=== PATIENT | female | born 1965 | race Caucasian/White ===

== ENCOUNTER 2021-08-16 05:54 | Inpatient (IN) | payer OTHER, SELFPAY ==
[2021-08-16] VITALS (21 sets, daily range): BP systolic 85–157; BP diastolic 45–84; PULSE 50–124; RESP 16–36; TEMP 36.9–37.7; O2SAT 70–98; BMI 20.7; BMI 16.8
--- NOTE | ~2021-08-16 | XR_ITS ---
EXAMINATION: CR CHEST CLINICAL INFORMATION: Shortness of breath. COMPARISON: Several prior chest x-rays, most recent of which is dated 09/26/2019. TECHNIQUE: AP upright portable view of the chest was obtained. FINDINGS: Multiple EKG leads overlie the chest. The cardiomediastinal silhouette is within normal limits in size. Lungs bilaterally are hyperinflated, consistent with patient's history of obstructive lung disease. There are new superimposed patchy parenchymal opacities in the mid and lower lungs bilaterally with thickening of the airways, suspicious for a diffuse viral or atypical pneumonia. Indistinctness of the CP angles is seen, possibly due to trace bilateral pleural effusions. No pneumothorax is seen. Bony structures are unremarkable. XR/XR chest 1V IMPRESSION: Obstructive lung disease with superimposed findings suspicious for viral or atypical pneumonia.
--- NOTE | ~2021-08-16 | XR_ITS ---
EXAMINATION: XR CHEST CLINICAL INFORMATION: TLC placement. COMPARISON: 08/16/2021 chest radiograph at 6:48 AM. Chest CTA dated 06/06/2017. TECHNIQUE: Frontal view of the chest was obtained. FINDINGS: Support devices: Interval placement of right internal jugular central venous catheter with tip terminating in the superior vena cava. Distribution of pulmonary markings is again seen with lower lung field predominance without significant change. No pneumothorax. The heart and mediastinal structures are unremarkable. XR/XR chest 1V IMPRESSION: 1. Right TLC appears in good position. No pneumothorax. 2. Similar distribution and severity of pulmonary markings. Please refer to the report from the recent chest CTA for more detailed findings.
--- NOTE | ~2021-08-16 | CT_ITS ---
EXAMINATION: CT ANGIOGRAM OF THE CHEST WITH AND WITHOUT CONTRAST (CT PULMONARY ANGIOGRAM FOR PE) CLINICAL INFORMATION: Reason for Exam r/o acute pulmonary embolus COMPARISON: CTA of June 06, 2017 and chest x-rays of August 16, 2021 and September 26, 2019 TECHNIQUE: Prior to contrast administration, noncontrast localization images were obtained. Subsequently, multidetector volumetric imaging was performed from the thoracic inlet to below the diaphragms following the administration of 65 mL Omnipaque 350 intravenous contrast. No contrast reaction reported Sagittal, coronal, and MIP oblique sagittal reformatted images were obtained on the CT workstation, uploaded to PACS, and reviewed. This CT examination was performed using dose optimization techniques as appropriate, variously including the following: *Automated exposure control *Adjustment of mA and/or kV according to patient size (this includes techniques or standardized protocols for targeted exams where dose is matched to indication/reason for exam; i.e. extremities or head) *Use of iterative reconstruction technique Total exam dose-length product 210 mGy-cm FINDINGS: QUALITY OF STUDY/CONTRAST BOLUS: Satisfactory. PULMONARY ARTERIES: No central or segmental pulmonary emboli. THORACIC AORTA: No aneurysm or dissection. LUNG: Central airways are patent. There is significant change of centrilobular emphysema seen bilaterally. There is diffuse bronchial wall thickening present more prominent within the lower lobes bilaterally. No bronchiectasis is appreciated. There is interstitial and airspace disease seen at the lung bases bilaterally. Above findings may be related to pulmonary edema versus infectious or inflammatory interstitial lung disease. The bibasilar consolidation may be related to pneumonia. There were no significant changes of interstitial lung disease seen on previous CTA of June 06, 2017. There is a 10 x 6 mm subpleural density posterior aspect of the right upper lobe on image 128 of 530 and series #7. PLEURA: No pleural effusion or pneumothorax. MEDIASTINUM: There appears to be the aortopulmonic window, precarinal, and subcarinal lymphadenopathy present. Interstitial thickening versus nonenlarged lymph nodes in the hilar regions seen bilaterally. Normal heart size. Coronary artery calcific dictation present. No pericardial effusion. No evidence of septal bowing or right heart strain. Visualized thyroid gland unremarkable. CHEST WALL/AXILLA: No axillary or internal mammary lymphadenopathy. OSSEOUS STRUCTURES: No acute or suspicious osseous abnormality. UPPER ABDOMEN: Unremarkable. No reflux of contrast into the hepatic veins to suggest elevated right heart pressures. CT/CT angio chest PE protocol IMPRESSION: Significant changes of centrilobular emphysema. Interstitial lung disease bilaterally with airspace disease seen dependently within the lower lobes. Above findings may be related to interstitial and airspace edema or possible inflammatory or infectious process. Hilar lymphadenopathy. VTE: negative
--- NOTE | 2021-08-16 06:13 | ECG_ITS ---
Test Reason : SOB Blood Pressure : / mmHG Vent. Rate : 112 BPM Atrial Rate : 112 BPM P-R Int : 154 ms QRS Dur : 086 ms QT Int : 358 ms P-R-T Axes : 078 087 082 degrees QTc Int : 488 ms Artifact in tracing Sinus tachycardia Anteroseptal infarct (cited on or before 16-AUG-2021) Abnormal ECG When compared with ECG of 20-AUG-2019 17:58, Nonspecific T wave abnormality no longer evident in Inferior leads Referred By: Generic ED Physician Electronically Signed By:XIOMARA FAM
--- NOTE | 2021-08-16 06:49 | PC.NURSE ---
provider at bedside, removed NRB for pt to start nebulizer tx, pt desat to 78% on room air respiratory at bedside. starting pt on BIPAP
[2021-08-16 06:53] LABS: COVID-19 Test Positive (Negative)
--- NOTE | 2021-08-16 06:57 | ED_ITS ---
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 She arrived to [place] in high-flow oxygen tachypneic unable to maintain the O2 sat she was placed on BiPAP for work of breathing. MD elicited complaint: shortness of breath and cough Pertinent past history: COPD Onset (ago): day(s) (3) Timing: constant Severity: moderate Exacerbating factors: nothing Relieving factors: oxygen Known history of: COPD Associated symptoms: fever and cough Treatment prior to arrival: oxygen Related Data Home oxygen amount: 2 liters Home Medications Medication Instructions Recorded Confirmed cetirizine 10 mg tablet 10 mg PO DAILY 07/31/20 08/16/21 simvastatin 40 mg tablet 40 mg PO DAILY 07/31/20 06/10/21 Previous Rx's Medication Instructions Recorded fluticasone 232mcg-salmeterol 1 inh INHALATION BID 30 Days #1 ea 09/09/20 14mcg/actuation breath act,powder sensor (LiquidMo Digihaler) mirtazapine 30 mg tablet 30 mg PO BEDTIME 90 Days #90 tab 04/22/21 albuterol sulfate 90 mcg/actuation 2 puff PO Q6H PRN 30 Days #6.7 g 06/01/21 aerosol inhaler escitalopram oxalate 10 mg tablet 10 mg PO DAILY 90 Days #90 tab 06/29/21 (Lexapro) ipratropium 0.5 mg-albuterol 3 mg 1 ml INHALATION TID PRN 30 Days 07/28/21 (2.5 mg base)/3 mL nebulization #180 ml soln omeprazole 20 mg capsule,delayed 20 mg PO DAILY 90 Days #90 cap 07/28/21 release Allergies Allergy/AdvReac Type Severity Reaction Status Date / Time crab Allergy Unknown UNKNOWN Unverified 06/10/21 15:36 penicillin V Allergy Unknown hives Verified 06/10/21 15:36 Penicillins [PENICILLINS] Allergy Unknown hives Verified 06/10/21 15:36 SEASONAL ALLERGIES Allergy Mild RUNNY NOSE Uncoded 06/10/21 15:36 Review of Systems Review of Systems: Yes all other systems are reviewed and are negative Constitutional: Constitutional: Reports fever(s) Cardiovascular: Cardiovascular: Reports dyspnea Respiratory: Respiratory: Reports cough, Reports excessive phlegm production and Reports dyspnea Gastrointestinal: Gastrointestinal: Reports no additional gastrointestinal complaints [facility] Past Medical History Medical History (Updated 08/16/21 @ 14:27 by Kimberly Chaudhary MD) Anxiety, generalized Arthrosis Asthma, moderate Asymptomatic carotid artery stenosis with infarction Chronic GERD COPD mixed type Difficulty sleeping Environmental allergies Exacerbation of asthma Hypercapnic respiratory failure, chronic Lipid disorder Tobacco abuse Surgical History History of tonsillectomy and adenoidectomy Family History Family History Father Substance abuse Mother Brain cancer Maternal Grandfather History of heart attack Maternal Grandmother History of heart attack Paternal Grandfather No problems noted. Paternal Grandmother No problems noted. Brother No problems noted. Brother No problems noted. Son No problems noted. Daughter No problems noted. Other Mental health disorder Social History Social History Housing: Condominium Patient Tobacco Use Status: Former Tobacco user (2 years ago ) Years Smoked: 35 years Advance Directives: No Advance Directives Information Provided: Yes Current occupational status: disabled Physical Exam Vital Signs: Vital Signs: Last Vital Signs Temp 99.3 F 08/16/21 16:00 Pulse 80 08/16/21 16:00 Resp 25 H 08/16/21 16:00 BP 101/59 L 08/16/21 16:00 Pulse Ox 95 08/16/21 16:00 Oxygen Flow Rate 10 08/16/21 06:05 BMI result Body Mass Index 20.7 Const: General: cooperative, alert, in distress and anxious Nutritional Appearance: average body habitus Orientation/consciousness: oriented to person, oriented to place, oriented to time and patient oriented x3 HENMT: Other: Examination the head eyes ears nose and throat is within normal limit Face and sinus: Yes normal facial exam Mouth: Normal oral and palatal mucosa present Teeth and gingiva: dentition normal Throat: Yes posterior oropharynx normal Neck: Neck: Yes normal visual inspection and Yes full ROM Chest: Chest palpation & inspection: normal inspection of the chest Resp: Effort & Inspection: labored Auscultation: rhonchi Cardio: Jugular venous distension: no JVD Rate: regular rate GI: Inspection: Yes normal to inspection Palpation (GI): Soft to palpation, not firm and nontender Skin: General skin exam: no rashes or lesions noted and elasticity normal Neuro: General: oriented to person, oriented to place, oriented to time and patient oriented x3 Course Reevaluation(s) Reevaluation #1: patient was placed on BiPAP he is doing better on BiPAP unable to tolerate high-flow oxygen. I spoke with Dr. Chaudhary your request a CT angiography of the chest. IV Decadron administered, IV antibiotic administer for possible superinfection given and a elevated white count. Reevaluation #2: pt was seen by Dr Chaudhary in the ED better on bipap,she does have elevated WBC as well will cover with AB as well possible super infection,discussed IV fluids with Dr Chaudhary no indication for IV fluids per ICU attending She has normal lactate ,she is not hypotensive actually Hypertensive MDM - SOB/Dyspnea MDM Narrative Medical decision making narrative: this is a frail a 55 years old the female O2 dependent COPD presented in respiratory distress at could be positive abnormal chest x-ray. I will discuss the case with the ICU attending anticipate admission ICU level of care Lab Data Attestation: I reviewed the patient's lab results. Result diagrams: 08/16/21 07:02 08/16/21 07:02 Labs: Lab Results 08/16/21 08/16/21 08/16/21 Range/Units 06:33 07:02 07:02 WBC 21.6 H (4.8-10.8) X10*3/uL RBC 3.91 L (4.20-5.50) X10*6/uL Hgb 10.5 L (12.0-16.0) g/dl Hct 35.4 L (37.0-47.0) % MCV 90.5 (80.0-98.0) fL MCH 26.9 L (27.0-33.0) pg MCHC 29.7 L (31.0-35.0) g/dl RDW 15.1 (11.0-16.0) % Plt Count 503 H (160-400) X10*3/uL MPV 9.7 (9.4-12.3) fL Immature Gran % (Auto) 1.0 H (0.0-0.4) % Neut % (Auto) 89.6 H (45-73) % Lymph % (Auto) 3.8 L (20-40) % Bailey % (Auto) 5.3 (2-11) % Eos % (Auto) 0.1 (0-4) % Baso % (Auto) 0.2 (0-2) % Lymph # (Auto) 0.8 L (1.2-4.9) X10*3/uL Bailey # (Auto) 1.1 (0.1-1.2) X10*3/uL Eos # (Auto) 0.0 (0.0-0.4) X10*3/uL Baso # (Auto) 0.0 (0.0-0.2) X10*3/uL Abs Immat Gran (auto) 0.22 H (0.00-0.03) X10*3/uL Absolute Neuts (auto) 19.3 H (2.0-8.3) x10*3/uL Absolute Nucleated RBC 0.000 (0.0-0.012) X10*3/uL Nucleated RBC % (auto) 0.0 (0.0-0.2) /100WBC Sodium 137 (135-145) mmol/L Potassium 4.3 (3.3-5.1) mmol/L Chloride 89 L (96-108) mmol/L Carbon Dioxide 34 H (22-29) mmol/L Anion Gap 18 (12-20) BUN 30 H (9-16) mg/dL Creatinine 0.82 (0.5-1.4) mg/dL Estim Creat Clear Calc 57.8 Estimated GFR > 60 Random Glucose 118 H (60-115) mg/dL Lactic Acid (0.5-2.0) mmol/L Calcium 9.6 (8.4-10.2) mg/dL Troponin I High Sens (<3.5-17.0) ng/L B-Natriuretic Peptide (<100) pg/mL COVID-19 ([facility]) Positive A (Negative) COVID-19 Clin Com See Note 08/16/21 08/16/21 Range/Units 07:02 07:02 WBC (4.8-10.8) X10*3/uL RBC (4.20-5.50) X10*6/uL Hgb (12.0-16.0) g/dl Hct (37.0-47.0) % MCV (80.0-98.0) fL MCH (27.0-33.0) pg MCHC (31.0-35.0) g/dl RDW (11.0-16.0) % Plt Count (160-400) X10*3/uL MPV (9.4-12.3) fL Immature Gran % (Auto) (0.0-0.4) % Neut % (Auto) (45-73) % Lymph % (Auto) (20-40) % Bailey % (Auto) (2-11) % Eos % (Auto) (0-4) % Baso % (Auto) (0-2) % Lymph # (Auto) (1.2-4.9) X10*3/uL Bailey # (Auto) (0.1-1.2) X10*3/uL Eos # (Auto) (0.0-0.4) X10*3/uL Baso # (Auto) (0.0-0.2) X10*3/uL Abs Immat Gran (auto) (0.00-0.03) X10*3/uL Absolute Neuts (auto) (2.0-8.3) x10*3/uL Absolute Nucleated RBC (0.0-0.012) X10*3/uL Nucleated RBC % (auto) (0.0-0.2) /100WBC Sodium (135-145) mmol/L Potassium (3.3-5.1) mmol/L Chloride (96-108) mmol/L Carbon Dioxide (22-29) mmol/L Anion Gap (12-20) BUN (9-16) mg/dL Creatinine (0.5-1.4) mg/dL Estim Creat Clear Calc Estimated GFR Random Glucose (60-115) mg/dL Lactic Acid 1.1 (0.5-2.0) mmol/L Calcium (8.4-10.2) mg/dL Troponin I High Sens 15.3 (<3.5-17.0) ng/L B-Natriuretic Peptide 234 H (<100) pg/mL COVID-19 ([facility]BERTO) (Negative) COVID-19 Clin Com Critical Care Time Critical Care Time Critical Care Time: Yes Total Critical Care Time: 60 Attestation: Placing the patient on BiPAP discussion with the patient, ICU attending, nurses Discharge Plan Discharge Clinical Impression: Respiratory failure, COVID-19 virus infection Patient Disposition: Admitted As Inpatient Interventions: Admission Worksheet (ED) Last Done: 08/16/21 11:58 Discharge Date/Time: 08/16/21 11:58
[2021-08-16 07:10] LABS: MANUAL DIFF FLAG NO
[2021-08-16 07:13] LABS: Basophils Percent Auto 0.2 % (0-2); Eosinophils Percent Auto 0.1 % (0-4); Hematocrit 35.4 % (37.0-47.0); Hemoglobin 10.5 g/dl (12.0-16.0); Imm Gran Abs Auto 0.22 X10*3/uL (0.00-0.03); Lymphocytes Absolute Auto 0.8 X10*3/uL (1.2-4.9); Lymphocytes Percent Auto 3.8 % (20-40); Mean Corpuscular HGB Conc 29.7 g/dl (31.0-35.0); Mean Corpuscular Hemoglobin 26.9 pg (27.0-33.0); Mean Corpuscular Volume 90.5 fL (80.0-98.0); Mean Platelet Volume 9.7 fL (9.4-12.3); Monocytes Absolute Auto 1.1 X10*3/uL (0.1-1.2); Monocytes Percent Auto 5.3 % (2-11); Neutrophils Absolute Auto 19.3 x10*3/uL (2.0-8.3); Neutrophils Percent Auto 89.6 % (45-73); Platelet Count 503 X10*3/uL (160-400); Red Blood Count 3.91 X10*6/uL (4.20-5.50); Red Cell Distribution Width 15.1 % (11.0-16.0); White Blood Count 21.6 X10*3/uL (4.8-10.8)
--- NOTE | 2021-08-16 07:21 | PC.NURSE ---
plan is to put pt on high flow- needs to be in a room with a closed door. iv abx started.
[2021-08-16 07:26] LABS: Lactic Acid 1.1 mmol/L (0.5-2.0)
[2021-08-16 07:31] LABS: Anion Gap 18 (12-20); Blood Urea Nitrogen 30 mg/dL (9-16); Calcium 9.6 mg/dL (8.4-10.2); Carbon Dioxide 34 mmol/L (22-29); Chloride 89 mmol/L (96-108); Creatinine Clr Calc Pharmacy 57.8; Estimated Glomerular Filt Rate > 60; Glucose Random 118 mg/dL (60-115); Potassium 4.3 mmol/L (3.3-5.1); Sodium 137 mmol/L (135-145)
[2021-08-16] MEDS: dexAMETHasone sod phosphate 4 MG/ML VIAL 8 MG IVPUSH (07:44)
[2021-08-16 07:46] LABS: B Type Natriuretic Peptide 234 pg/mL (<100); Troponin-I High Sensitivity 15.3 ng/L (<3.5-17.0)
--- NOTE | 2021-08-16 08:36 | PC.NURSE ---
pt to and from ct- vss
[2021-08-16] MEDS: iohexoL 350 MG/ML 100 ML INFUS..BTL IV (08:48)
[2021-08-16] MEDS: Azithromycin 500 MG in 0.9 % Sodium Chloride 250 ML 125 MG IV (09:40)
--- NOTE | 2021-08-16 10:11 | PM.CCHP ---
History of Present Illness Date of Service: 08/16/21 Attending physician on admission: Kimberly Chaudhary Chief Complaint: SOB 55-year-old very asthenic who stop smoking 2 years ago has very extensive oxygen-dependent emphysema presents today with increasing shortness of breath and she is COVID-19 positive but with a an initial CT scan that shows no evidence of thrombotic disease extensive I believe interstitial fibrosis as well as evidence of emphysema but extensive bilateral lower lobe interstitial infiltration [place] [address] and a left shift but no fever not complaining of cough or productive cough and she was noted to be in acute on chronic hypercarbic as well as hypoxic respiratory failure and oxygen saturations could not climb above 80% on any therapy other than BiPAP but has a pCO2 in the mid 70s with compensated pH of 7.38 and is sinus tachycardia with Q-waves in V1 to V3 and diminished bilateral carotid upstrokes and bedside echo shows extensive area of anterior 0 apical akinesis and an old report from the cardiology office indicates hypokinesis of the anterior 0 apical wall but the 1st troponin was-5 hours later high sensitivity troponin 134 and she has got a 4 fold increase in BNP compared to her baseline and mixed venous oxygen saturation is only 48% for calculated cardiac output at best a 4 liters/minute but calculated the SVR that is over 2000 so clearly in 0 that this is indicative of heart failure and the urine toxicology is positive for cocaine so it is not impossible that there are components of the lung that could be cardiogenic as well as noncardiogenic pulmonary edema but the in relation to the COVID may have a markedly elevated CRP and LDH and D-dimer and so that could be some implication that that there is in COVID activity but the CT scan not COVID parenchymal disease Review of Systems Review of Systems: No fever no chills no productive cough and no background history of hypercoagulability not in herself or family Yes all other systems are reviewed and are negative [facility] Past Medical History Medical History (Updated 08/16/21 @ 14:27 by Kimberly Chaudhary MD) Anxiety, generalized Arthrosis Asthma, moderate Asymptomatic carotid artery stenosis with infarction Chronic GERD COPD mixed type Difficulty sleeping Environmental allergies Exacerbation of asthma Hypercapnic respiratory failure, chronic Lipid disorder Tobacco abuse Family History Family History Father Substance abuse Mother Brain cancer Maternal Grandfather History of heart attack Maternal Grandmother History of heart attack Paternal Grandfather No problems noted. Paternal Grandmother No problems noted. Brother No problems noted. Brother No problems noted. Son No problems noted. Daughter No problems noted. Other Mental health disorder Surgical History Surgical History History of tonsillectomy and adenoidectomy Social History [facility] Patient Tobacco Use Status: Former Tobacco user (2 years ago ) Years Smoked: 35 years Advance Directives: No Advance Directives Information Provided: Yes Current occupational status: disabled Meds Allergies Allergy/AdvReac Type Severity Reaction Status Date / Time crab Allergy Unknown UNKNOWN Unverified 06/10/21 15:36 penicillin V Allergy Unknown hives Verified 06/10/21 15:36 Penicillins [PENICILLINS] Allergy Unknown hives Verified 06/10/21 15:36 SEASONAL ALLERGIES Allergy Mild RUNNY NOSE Uncoded 06/10/21 15:36 Active Medications: Current Medications Albuterol/Ipratropium (Albuterol/Iprat 2.5/0.5mg 3 Ml Ampul.Neb) 3 ml INHALE RQ4H [facility] Dexamethasone Sodium Phosphate (Dexamethasone Sod Phosphate 4 Mg/Ml Vial) 6 mg IVPUSH DAILY [facility] Enoxaparin Sodium (Enoxaparin Sodium 40 Mg/0.4 Ml Syringe) 40 mg SUBCUT Q12H [facility] Azithromycin 500 mg/ Sodium (Chloride) 250 mls @ 125 mls/hr IV ONCE ONE Stop: 08/16/21 11:19 Last Admin: 08/16/21 09:40 Dose: 125 mls/hr Documented by: Meropenem 1 gm/ Sodium (Chloride) 100 mls @ 100 mls/hr IV Q8H [facility] Azithromycin 500 mg/ Sodium (Chloride) 250 mls @ 125 mls/hr IV DAILY [facility] Dextrose/Lactated Ringer's (D5lr) 1,000 mls @ 100 mls/hr IVCONT .Q10H [facility] Home Medications Medication Instructions Recorded Confirmed Last Taken Type cetirizine 10 mg tablet 10 mg PO DAILY 07/31/20 08/16/21 Unknown History simvastatin 40 mg tablet 40 mg PO DAILY 07/31/20 06/10/21 Unknown History Physical Exam Vital Signs: Vital Signs: Last Vital Signs Temp 98.4 F 08/16/21 06:05 Pulse 118 H 08/16/21 09:40 Resp 30 H 08/16/21 09:40 BP 113/59 L 08/16/21 09:40 Pulse Ox 96 08/16/21 09:40 Oxygen Flow Rate 10 08/16/21 06:05 BMI result Body Mass Index 20.7 She is awake and able to answer questions No neck vein distension but reduced bilateral carotid upstrokes and bedside exam of the heart by echo as above Lungs without diaphragmatic effort and a nor accessory muscle use but on BiPAP at this point and she is somewhat tachypneic and tachycardic Abdomen benign no organomegaly Results Labs CBC and Chem 7: 08/16/21 07:02 08/16/21 07:02 Labs: Laboratory Results - last 24 hr 08/16/21 08/16/21 08/16/21 06:33 07:02 07:02 MCV 90.5 MCH 26.9 L MCHC 29.7 L RDW 15.1 Plt Count 503 H MPV 9.7 Immature Gran % (Auto) 1.0 H Neut % (Auto) 89.6 H Lymph % (Auto) 3.8 L [place] % (Auto) 5.3 Eos % (Auto) 0.1 Baso % (Auto) 0.2 Lymph # (Auto) 0.8 L [place] # (Auto) 1.1 Eos # (Auto) 0.0 Baso # (Auto) 0.0 Abs Immat Gran (auto) 0.22 H Absolute Neuts (auto) 19.3 H Absolute Nucleated RBC 0.000 Nucleated RBC % (auto) 0.0 Anion Gap 18 Estim Creat Clear Calc 57.8 Estimated GFR > 60 Random Glucose 118 H Lactic Acid Calcium 9.6 Troponin I High Sens B-Natriuretic Peptide COVID-19 ([facility]) Positive A COVID-19 Clin Com See Note 08/16/21 08/16/21 07:02 07:02 MCV MCH MCHC RDW Plt Count MPV Immature Gran % (Auto) Neut % (Auto) Lymph % (Auto) [place] % (Auto) Eos % (Auto) Baso % (Auto) Lymph # (Auto) [place] # (Auto) Eos # (Auto) Baso # (Auto) Abs Immat Gran (auto) Absolute Neuts (auto) Absolute Nucleated RBC Nucleated RBC % (auto) Anion Gap Estim Creat Clear Calc Estimated GFR Random Glucose Lactic Acid 1.1 Calcium Troponin I High Sens 15.3 B-Natriuretic Peptide 234 H COVID-19 ([facility] AL[facility]ERT[facility]) COVID-19 Clin Com Imaging Radiologist's Impressions: Impressions Chest X-Ray 08/16/21 06:51 IMPRESSION: Obstructive lung disease with superimposed findings suspicious for viral or atypical pneumonia. Chest CTA 08/16/21 08:48 IMPRESSION: Significant changes of centrilobular emphysema. Interstitial lung disease bilaterally with airspace disease seen dependently within the lower lobes. Above findings may be related to interstitial and airspace edema or possible inflammatory or infectious process. Hilar lymphadenopathy. VTE: negative Assessment and Plan (1) Hypercapnic respiratory failure: Status: Acute (2) Hypercapnic respiratory failure, chronic: Status: Acute (3) Asthma, moderate: Status: Acute (4) Lipid disorder: Status: Acute (5) Anxiety, generalized: Status: Acute (6) Chronic GERD: Status: Acute (7) COPD mixed type: Status: Acute (8) Environmental allergies: Status: Acute (9) Tobacco abuse: Status: Acute (10) Oxygen dependent: Status: Acute (11) COVID-19 virus infection: Status: Acute (12) Respiratory failure: Status: Acute (13) Apical myocardial infarction: Status: Acute (14) Acute CHF (congestive heart failure): Status: Acute (15) Cocaine abuse: Status: Acute So we have a complicated picture of somebody who is COVID-19 positive in acute systolic/diastolic CHF from what appears to be an anterior 0 apical infarct but with prior description of of hypokinesis in that territory this might actually be an additional event superimposed on a previous 1 because we do have a rising troponin and arising BNP and she seems to be improving on BiPAP which we will maintain but there still are questions that this could be ischemic and cocaine is simply and exacerbate aunt and we gave her aspirin and full-dose Lovenox and calculated cardiac output with a markedly elevated peripheral vascular resistance dictates that I will start combined alpha and beta blockade for the vaso dilatory benefit and possibly and an Steve inhibitor such as IV Vasotec
--- NOTE | 2021-08-16 10:41 | PHA.MEDREC ---
Pharmacy Consult ? Medication Reconciliation Pharmacy has completed the medication reconciliation. Patient report using simvastatin and Breo inhaler however there is no claim history. [facility] is not open on the weekends. Will have pharmacist F/U tomorrow with pharmacy about fill history. Myrna Caldera, PharmD
[2021-08-16 10:58] LABS: VBG Base Excess 16.6 mmol/L; VBG HCO3 45 mmol/L (22-26); VBG pCO2 77 mmHg; VBG pH 7.37 (7.32-7.43); VBG pO2 49 mmHg
[2021-08-16 11:02] LABS: Venous Blood Gas Refer to POC result
[2021-08-16 11:05] LABS: D Dimer High Sensitivity 1174 NG/ML
[2021-08-16 11:21] LABS: C Reactive Protein 22.46 mg/dL (< or = 0.50); Lactate Dehydrogenase 336 U/L (122-220); Magnesium 1.8 mg/dL (1.6-2.6); Phosphorus 2.6 mg/dL (2.7-4.5)
[2021-08-16 11:41] LABS: Ferritin 877 ng/mL (10-250)
[2021-08-16 11:53] LABS: Procalcitonin 0.66 ng/mL
[2021-08-16] MEDS: Albuterol/Iprat 2.5/0.5MG 3 ML AMPUL.NEB INHALE ×3 (12:04→19:47)
[2021-08-16] MEDS: Dextrose 5 % and Lactated Ring 1,000 ML 100 ML IVCONT (12:20)
[2021-08-16 12:45] LABS: VBG Base Excess 16.5 mmol/L; VBG HCO3 45 mmol/L (22-26); VBG pCO2 74 mmHg; VBG pH 7.38 (7.32-7.43); VBG pO2 34 mmHg
--- NOTE | 2021-08-16 13:07 | HE.PHANOTE ---
Due to the CRCL being 57.8, the Baricitinib was renally dose adjusted to 2mg daily. Lachelle Gold, PharmD [phone]
[2021-08-16 13:13] LABS: Troponin-I High Sensitivity 133.4 ng/L (<3.5-17.0)
[2021-08-16 13:23] LABS: Amphetamine Screen Urine Not Detected (Not Detect); Barbiturates, Urine Not Detected (Not Detect); Benzodiazepines Screen Urine Not Detected (Not Detect); Cannabinoid Screen Urine Not Detected (Not Detect); Cocaine Screen Urine POSITIVE (Not Detect); Fentanyl, urine Not Detected (Not Detect); Opiate Screen Urine Not Detected (Not Detect); Phencyclidine Screen Urine Not Detected (Not Detect)
[2021-08-16] MEDS: Enoxaparin Sodium 40 MG/0.4 ML SYRINGE SUBCUT (13:46)
[2021-08-16] MEDS: Aspirin 325 MG TABLET PO (13:47)
[2021-08-16] MEDS: 0.9 % Sodium Chloride Flush 3 ML SYRINGE IVFLUSH (14:20)
[2021-08-16] MEDS: Remdesivir 200 MG in 0.9 % Sodium Chloride 210 ML 105 MG IV (14:27)
[2021-08-16] MEDS: KCl 20 mEq in 0.45% Sod 20 MEQ/1,000 ML IV.SOLN 40 MEQ IVCONT (14:27)
[2021-08-16 16:39] LABS: VBG Base Excess 16.2 mmol/L; VBG HCO3 41 mmol/L (22-26); VBG pCO2 54 mmHg; VBG pH 7.49 (7.32-7.43); VBG pO2 129 mmHg
[2021-08-16 16:40] LABS: Venous Blood Gas Refer to POC result
[2021-08-16 17:05] LABS: Troponin-I High Sensitivity 142.7 ng/L (<3.5-17.0)
--- NOTE | 2021-08-16 18:27 | PC.NURSE ---
VSS, labetolol gtt titrated off per emar. tele sr pt oriented to self and palce, able to make needs known ls clear, on bipap with rate 10, 15,6, 50%- tolerating well. u/o 10-15ml/hr, aware, bath given, pt repo as requested
[2021-08-16 18:44] LABS: Venous Blood Gas Refer to POC result
[2021-08-16] MEDS: Lactated Ringers 1,000 ML 200 ML IV (23:34)
--- NOTE | 2021-08-16 23:58 | W.PM.CCHP ---
Procedures Date of Service Date of Service: 08/16/21 Central Line Placement Right IJ: Central Line Comments: venous access Consent for Procedure: Emergent-no informed consent obtained Time out performed: Yes Sterile Technique Used: Yes Patient placed on monitor/pulse ox: Yes MD prep: mask, gown and gloves Central line prep: Chlorhexidine scrub and sterile drapes applied Local anesthesia used: lidocaine 2% Amount of anesthesia used (ml): 4 Ultrasound used for placement: Yes Central line lumen inserted: triple Post procedure: sutured in place, good blood return, all ports aspirated, flushed, capped and sterile dressing applied Post procedure x-ray: tip of catheter in good position and no pneumothorax seen Patient tolerated procedure: well and no complications Complications: none
[2021-08-17] VITALS (33 sets, daily range): BP systolic 97–164; BP diastolic 40–99; PULSE 73–122; RESP 18–33; TEMP 36.9–37.3; O2SAT 3–96; BMI 18.2
[2021-08-17] MEDS: 0.9 % Sodium Chloride Flush 3 ML SYRINGE IVFLUSH ×4 (00:06→23:55)
[2021-08-17] MEDS: Enoxaparin Sodium 40 MG/0.4 ML SYRINGE SUBCUT (00:11)
[2021-08-17] MEDS: Albuterol/Iprat 2.5/0.5MG 3 ML AMPUL.NEB INHALE ×4 (00:20→18:27)
--- NOTE | 2021-08-17 04:03 | PC.NURSE ---
CARE ASSUMED 23;15...MAINTAINED BIPAP 15/8 AND FIO2 50%..RR 26-28...Ve 10-11 L/M...SAO2 89-94%...OCASSIONAL HARSH COUGH..AWAKE..ALERT..ORIENTED...VAGUE RESPONSES AT TIMES..PER ICU PA SAO2 GOAL 88% OR GREATER...URINE OUTPUT REMAINS LOW OVERNIGHT...LR 200 CC/HR X1 BAG INFUSED PER PA...CVP 0-1 AT HS..CURRENTLY CVP 2-3...NSR..NO ECTOPY...LABETOLOL DRIP REMAINS OFF OVERNIGHT
[2021-08-17 05:29] LABS: VBG HCO3 43 mmol/L (22-26); VBG pCO2 53 mmHg; VBG pH 7.51 (7.32-7.43); VBG pO2 44 mmHg
[2021-08-17 05:46] LABS: INTERNATIONAL NORM RATIO 1.3 (0.9-1.1); Prothrombin Time 14.9 SEC (9.9-13.0)
[2021-08-17 05:49] LABS: Partial Thromboplastin Time 42.6 SEC (24.1-38.0)
[2021-08-17 05:57] LABS: B Type Natriuretic Peptide 267 pg/mL (<100)
[2021-08-17 06:00] LABS: Anion Gap 14 (12-20); Blood Urea Nitrogen 26 mg/dL (9-16); C Reactive Protein 11.65 mg/dL (< or = 0.50); Calcium 8.3 mg/dL (8.4-10.2); Carbon Dioxide 33 mmol/L (22-29); Chloride 97 mmol/L (96-108); Creatinine Clr Calc Pharmacy 65.8; Estimated Glomerular Filt Rate > 60; Glucose Random 84 mg/dL (60-115); Magnesium 1.6 mg/dL (1.6-2.6); Phosphorus 1.7 mg/dL (2.7-4.5); Potassium 4.3 mmol/L (3.3-5.1); Sodium 140 mmol/L (135-145)
[2021-08-17 06:09] LABS: Lactate Dehydrogenase 264 U/L (122-220)
[2021-08-17 06:24] LABS: Venous Blood Gas Refer to POC result
[2021-08-17 06:38] LABS: Basophils Percent Auto 0.1 % (0-2); Eosinophils Percent Auto 0.1 % (0-4); Hematocrit 23.8 % (37.0-47.0); Hemoglobin 7.1 g/dl (12.0-16.0); Imm Gran Abs Auto 0.22 X10*3/uL (0.00-0.03); Imm Gran Pct Auto 1.9 % (0.0-0.4); Lymphocytes Absolute Auto 2.4 X10*3/uL (1.2-4.9); MANUAL DIFF FLAG SCAN; Mean Corpuscular HGB Conc 29.8 g/dl (31.0-35.0); Mean Corpuscular Hemoglobin 26.5 pg (27.0-33.0); Mean Corpuscular Volume 88.8 fL (80.0-98.0); Mean Platelet Volume 9.7 fL (9.4-12.3); Monocytes Absolute Auto 0.9 X10*3/uL (0.1-1.2); Monocytes Percent Auto 7.8 % (2-11); Neutrophils Absolute Auto 7.9 x10*3/uL (2.0-8.3); Neutrophils Percent Auto 69.1 % (45-73); Platelet Count 408 X10*3/uL (160-400); Red Blood Count 2.68 X10*6/uL (4.20-5.50); Red Cell Distribution Width 15.2 % (11.0-16.0); SCAN SMEAR FLAG 1; White Blood Count 11.4 X10*3/uL (4.8-10.8)
[2021-08-17 06:45] LABS: SLIDE REVIEW VERIFIED
[2021-08-17 07:00] LABS: Ferritin 1633 ng/mL (10-250)
[2021-08-17] MEDS: Furosemide 20 MG/2 ML VIAL IVPUSH (08:42)
[2021-08-17] MEDS: dexAMETHasone sod phosphate 4 MG/ML VIAL 6 MG IVPUSH (08:42)
[2021-08-17] MEDS: Potassium Phosphate 30 MMOL in 0.9 % Sodium Chloride 500 ML 85 MMOL IV (08:44)
--- NOTE | 2021-08-17 10:30 | PHA.MEDREC ---
Pharmacy Consult ? Medication Reconciliation Pharmacy has completed the medication reconciliation. Called center pharmacy. They stated that she hasnt picked up her simvastatin or fluticasone 232/salmeterol 14mcg in over a year
[2021-08-17] MEDS: Heparin Sodium,Porcine 5,000 UNIT/ML VIAL 5000 UNIT SUBCUT ×2 (10:44→17:41)
--- NOTE | 2021-08-17 12:17 | P.PNCC_ITS ---
Subjective Subjective Date of Service: 08/17/21 Interval History: 55-year-old lady with underlying history of supplemental oxygen dependent COPD, CVA with residual right-sided hemiparesis, generalized anxiety admitted on 08/16/2021 with worsening dyspnea. Patient was noted to be COVID and cocaine positive, requiring BiPAP support and was admitted to the intensive care unit. Patient started on diuretic, systemic glucocorticoids, remdesivir, and baricitinib. On bedside echocardiogram she was noted to have takotsubo-like physiology. No events overnight. Titrated to high-flow nasal cannula. Critical Care Time (minutes): 60 Physical Exam Vital Signs: Vital Signs: Last Vital Signs Temp 99.0 F 08/17/21 12:00 Pulse 92 08/17/21 12:00 Resp 21 H 08/17/21 12:00 BP 151/65 H 08/17/21 12:00 Pulse Ox 92 08/17/21 12:00 Oxygen Flow Rate 50 08/16/21 20:00 BMI result Body Mass Index 18.2 Const: General: no acute distress, alert, awake and other ( Anxious) Eyes: Sclerae: sclerae normal EOM: EOMs intact bilaterally Neck: Neck: Yes no lymphadenopathy, Yes trachea midline and Yes supple Resp: Effort & Inspection: normal respiratory effort and no respiratory distress Auscultation: crackles ( diffuse bilateral) Cardio: Rate: tachycardic Rhythm: regular rhythm Heart sounds: no gallops, no murmurs and no rubs GI: Palpation (GI): Soft to palpation and Other GI palpation findings present ( Nontender) Auscultation: normal bowel sounds Extrem: General: No clubbing, No cyanosis and Yes pedal edema ( 1+ bilateral) Objective Data Labs CBC & Chem 7: 08/17/21 06:27 08/17/21 05:20 Labs: Laboratory Results - last 24 hr 08/16/21 08/16/21 08/16/21 12:36 12:38 12:39 WBC RBC Hgb Hct MCV MCH MCHC RDW Plt Count MPV Immature Gran % (Auto) Neut % (Auto) Lymph % (Auto) [place] % (Auto) Eos % (Auto) Baso % (Auto) Lymph # (Auto) [place] # (Auto) Eos # (Auto) Baso # (Auto) Abs Immat Gran (auto) Absolute Neuts (auto) Absolute Nucleated RBC Nucleated RBC % (auto) Smear Tech's Comments PT INR APTT VBG pH 7.38 VBG pCO2 74 VBG pO2 34 VBG HCO3 45 H VBG O2 Saturation 48.0 VBG Base Excess 16.5 Sodium Potassium Chloride Carbon Dioxide Anion Gap BUN Creatinine Estim Creat Clear Calc Estimated GFR Random Glucose Calcium Phosphorus Magnesium Ferritin Lactate Dehydrogenase Troponin I High Sens 133.4 H* D C-Reactive Protein B-Natriuretic Peptide Urine Opiates Screen Not Detected Urine Fentanyl Screen Not Detected Ur Barbiturates Screen Not Detected Ur Phencyclidine Scrn Not Detected Ur Amphetamines Screen Not Detected U Benzodiazepines Scrn Not Detected Urine Cocaine Screen POSITIVE H U Marijuana (THC) Screen Not Detected 08/16/21 08/16/21 08/17/21 16:21 16:32 05:20 WBC Cancelled RBC Cancelled Hgb Cancelled Hct Cancelled MCV Cancelled MCH Cancelled MCHC Cancelled RDW Cancelled Plt Count Cancelled MPV Cancelled Immature Gran % (Auto) Cancelled Neut % (Auto) Cancelled Lymph % (Auto) Cancelled [place] % (Auto) Cancelled Eos % (Auto) Cancelled Baso % (Auto) Cancelled Lymph # (Auto) Cancelled [place] # (Auto) Cancelled Eos # (Auto) Cancelled Baso # (Auto) Cancelled Abs Immat Gran (auto) Cancelled Absolute Neuts (auto) Cancelled Absolute Nucleated RBC Cancelled Nucleated RBC % (auto) Cancelled Smear Tech's Comments PT INR APTT VBG pH 7.49 H VBG pCO2 54 VBG pO2 129 VBG HCO3 41 H VBG O2 Saturation 99.0 VBG Base Excess 16.2 Sodium Potassium Chloride Carbon Dioxide Anion Gap BUN Creatinine Estim Creat Clear Calc Estimated GFR Random Glucose Calcium Phosphorus Magnesium Ferritin Lactate Dehydrogenase Troponin I High Sens 142.7 H* C-Reactive Protein B-Natriuretic Peptide Urine Opiates Screen Urine Fentanyl Screen Ur Barbiturates Screen Ur Phencyclidine Scrn Ur Amphetamines Screen U Benzodiazepines Scrn Urine Cocaine Screen U Marijuana (THC) Screen 08/17/21 08/17/21 08/17/21 05:20 05:20 05:20 WBC RBC Hgb Hct MCV MCH MCHC RDW Plt Count MPV Immature Gran % (Auto) Neut % (Auto) Lymph % (Auto) [place] % (Auto) Eos % (Auto) Baso % (Auto) Lymph # (Auto) [place] # (Auto) Eos # (Auto) Baso # (Auto) Abs Immat Gran (auto) Absolute Neuts (auto) Absolute Nucleated RBC Nucleated RBC % (auto) Smear Tech's Comments PT 14.9 H INR 1.3 H APTT 42.6 H VBG pH VBG pCO2 VBG pO2 VBG HCO3 VBG O2 Saturation VBG Base Excess Sodium 140 Potassium 4.3 Chloride 97 Carbon Dioxide 33 H Anion Gap 14 BUN 26 H Creatinine 0.66 Estim Creat Clear Calc 65.8 Estimated GFR > 60 Random Glucose 84 Calcium 8.3 L D Phosphorus 1.7 L Magnesium 1.6 Ferritin 1633 H Lactate Dehydrogenase 264 H Troponin I High Sens C-Reactive Protein 11.65 H B-Natriuretic Peptide 267 H Urine Opiates Screen Urine Fentanyl Screen Ur Barbiturates Screen Ur Phencyclidine Scrn Ur Amphetamines Screen U Benzodiazepines Scrn Urine Cocaine Screen U Marijuana (THC) Screen 08/17/21 08/17/21 05:23 06:27 WBC 11.4 H RBC 2.68 L D Hgb 7.1 L D Hct 23.8 L D MCV 88.8 MCH 26.5 L MCHC 29.8 L RDW 15.2 Plt Count 408 H MPV 9.7 Immature Gran % (Auto) 1.9 H Neut % (Auto) 69.1 Lymph % (Auto) 21.0 [place] % (Auto) 7.8 Eos % (Auto) 0.1 Baso % (Auto) 0.1 Lymph # (Auto) 2.4 [place] # (Auto) 0.9 Eos # (Auto) 0.0 Baso # (Auto) 0.0 Abs Immat Gran (auto) 0.22 H Absolute Neuts (auto) 7.9 Absolute Nucleated RBC 0.000 Nucleated RBC % (auto) 0.0 Smear Tech's Comments VERIFIED PT INR APTT VBG pH 7.51 H VBG pCO2 53 VBG pO2 44 VBG HCO3 43 H VBG O2 Saturation 73.0 VBG Base Excess 18.0 Sodium Potassium Chloride Carbon Dioxide Anion Gap BUN Creatinine Estim Creat Clear Calc Estimated GFR Random Glucose Calcium Phosphorus Magnesium Ferritin Lactate Dehydrogenase Troponin I High Sens C-Reactive Protein B-Natriuretic Peptide Urine Opiates Screen Urine Fentanyl Screen Ur Barbiturates Screen Ur Phencyclidine Scrn Ur Amphetamines Screen U Benzodiazepines Scrn Urine Cocaine Screen U Marijuana (THC) Screen Microbiology Microbiology Results: Microbiology 12/05/21 07:02 Blood - Venous Blood Culture - Preliminary No growth after 24 hours. 08/16/21 07:02 Blood - Venous Blood Culture - Preliminary No growth after 24 hours. Progress Note: A&P Assessment and plan (1) Cocaine abuse: Status: Acute (2) Acute CHF (congestive heart failure): Status: Acute (3) Respiratory failure: Status: Acute (4) Oxygen dependent: Status: Acute (5) COVID-19 virus infection: Status: Acute (6) Hemiparesis affecting right side as late effect of cerebrovascular accident: Status: Acute (7) Anxiety, generalized: Status: Acute Assessment and Plan: Assessment: 55-year-old lady with underlying history of COPD, CVA, anxiety, substance abuse admitted with dyspnea secondary to combination of acute systolic congestive heart failure, cocaine abuse, and COVID-19 infection, initially requiring BiPAP support. Plan: Neuro: No acute issues. Cardiac: Acute systolic congestive heart failure, likely secondary to takotsubo like physiolog noted on bedside echocardiogramy. 2D echocardiogram is pending. Improving with diuresis. Pulmonary: Acute on chronic hypoxic respiratory failure secondary to a combination of COVID-19 ARDS, acute systolic congestive heart failure, and cocaine abuse initially requiring BiPAP support. Now titrated off BiPAP. Continue to titrate off supplemental oxygen as tolerated. Renal: No acute issues. Endo: No acute issues. GI: No acute issues. ID: COVID-19, on remdesivir, systemic glucocorticoids, and baricitinib. Infectious Disease service care appreciated. Heme/Onc: No acute issues. Psych: No acute issues. Miscellaneous: No acute issues. Prophylaxis: Heparin Diet: regular Critical care time spent: 60 minutes Quality Stroke Does the patient have a stroke diagnosis?: No VTE Prior VTE?: No VTE Risk Level:: Medical - moderate - high VTE Device Contraindication: N/A - Device Ordered VTE Drug Contraindication: N/A - Med Ordered
[2021-08-17 12:35] LABS: Basophils Percent Auto 0.1 % (0-2); Hematocrit 26.4 % (37.0-47.0); Hemoglobin 8.2 g/dl (12.0-16.0); Imm Gran Abs Auto 0.41 X10*3/uL (0.00-0.03); Imm Gran Pct Auto 2.2 % (0.0-0.4); Lymphocytes Absolute Auto 1.6 X10*3/uL (1.2-4.9); Lymphocytes Percent Auto 8.9 % (20-40); MANUAL DIFF FLAG SCAN; Mean Corpuscular HGB Conc 31.1 g/dl (31.0-35.0); Mean Corpuscular Hemoglobin 27.3 pg (27.0-33.0); Mean Platelet Volume 9.6 fL (9.4-12.3); Monocytes Absolute Auto 0.6 X10*3/uL (0.1-1.2); Monocytes Percent Auto 3.3 % (2-11); Neutrophils Absolute Auto 15.7 x10*3/uL (2.0-8.3); Neutrophils Percent Auto 85.5 % (45-73); Platelet Count 486 X10*3/uL (160-400); Red Cell Distribution Width 15.1 % (11.0-16.0); SCAN SMEAR FLAG 1; White Blood Count 18.4 X10*3/uL (4.8-10.8)
[2021-08-17 13:18] LABS: Troponin-I High Sensitivity 34.2 ng/L (<3.5-17.0)
[2021-08-17] MEDS: Remdesivir 100 MG in 0.9 % Sodium Chloride 230 ML 115 MG IV (13:43)
[2021-08-17 13:49] LABS: Anion Gap 17 (12-20); Blood Urea Nitrogen 27 mg/dL (9-16); Calcium 8.2 mg/dL (8.4-10.2); Carbon Dioxide 33 mmol/L (22-29); Chloride 94 mmol/L (96-108); Creatinine Clr Calc Pharmacy 64.8; Estimated Glomerular Filt Rate > 60; Glucose Random 102 mg/dL (60-115); Potassium 4.9 mmol/L (3.3-5.1); Sodium 139 mmol/L (135-145)
[2021-08-17 14:25] LABS: OBS1 NEGATIVE (NEGATIVE)
[2021-08-17 14:26] LABS: OBS Int Ctl Valid YES
--- NOTE | 2021-08-17 15:55 | MHC.CM.PN ---
Addendum entered by Roxy Leonard 08/17/21 16:06: Requested copy of HCP from Pina: she is unsure of it's location. Will complete a new one with pt Original Note: Pt admitted to ICU with respiratory distress secondary to unvaccinated COVID +. Information obtained from pt, EMR and per phone conversation with pt's dtr/HCP, Pina. Pt resides alone but has 28+ hours per week of [employer] care provided by her dtr/HCP Pina. Transportation is via [facility]. Pt is O2 dependent and has [employer]. She uses a cane and is able to complete most of her ADL's without assistance despite right upper extremity flaccidity d/t previous CVA. Pt also has a significant other who assists and a son who lives close by. Of note, pt and her caregivers (son, dtr and s.o.) are all unvaccinated: advised all to test and quarantine if necessary and get vaccinated as soon as clinically possible D/C is likely for a return to home with compensated care givers. ? pt requiring skilled visits: if so, a referral to [facility] will be made. CM to follow for finalization of d/c plans
--- NOTE | 2021-08-17 21:16 | W.PM.IDCN ---
History of Present Illness Data of Consult Service Date: 08/17/21 Requesting physician: Kimberly Chaudhary Primary Care Provider: MD ROBINA Haile Reason for consult: shortness of breath She presents with shortness of breath. She has supplemental oxygen normally and has COPD She is just now COVID positive. [facility], [facility] Past Medical History Medical History Anxiety, generalized Arthrosis Asthma, moderate Asymptomatic carotid artery stenosis with infarction Chronic GERD COPD mixed type Difficulty sleeping Environmental allergies Exacerbation of asthma Hypercapnic respiratory failure, chronic Lipid disorder Tobacco abuse Family History Family History Father Substance abuse Mother Brain cancer Maternal Grandfather History of heart attack Maternal Grandmother History of heart attack Paternal Grandfather No problems noted. Paternal Grandmother No problems noted. Brother No problems noted. Brother No problems noted. Son No problems noted. Daughter No problems noted. Other Mental health disorder Family history: reviewed and not pertinent Surgical History Surgical History History of tonsillectomy and adenoidectomy Social History Social History Housing: Condominium Patient Tobacco Use Status: Former Tobacco user (2 years ago ) Years Smoked: 35 years Currently Displaying Signs/Symptoms of Drug Intoxication Withdrawal: No Advance Directives: No Advance Directives Information Provided: Yes Do you have thoughts of harming others: None Do you have a plan to hurt others: No Plan service: No Current occupational status: disabled Meds Allergies Allergy/AdvReac Type Severity Reaction Status Date / Time crab Allergy Unknown UNKNOWN Unverified 06/10/21 15:36 penicillin V Allergy Unknown hives Verified 06/10/21 15:36 Penicillins [PENICILLINS] Allergy Unknown hives Verified 06/10/21 15:36 SEASONAL ALLERGIES Allergy Mild RUNNY NOSE Uncoded 06/10/21 15:36 Active Medications: Current Medications Albuterol/Ipratropium (Albuterol/Iprat 2.5/0.5mg 3 Ml Ampul.Neb) 3 ml INHALE RQ6H LADONNA Last Admin: 08/17/21 18:27 Dose: 3 ml Documented by: Baricitinib (Baricitinib 2 Mg Tablet) 4 mg PO Q24H [facility] Stop: 08/29/21 10:01 Last Admin: 08/17/21 10:44 Dose: 4 mg Documented by: Dexamethasone Sodium Phosphate (Dexamethasone Sod Phosphate 4 Mg/Ml Vial) 6 mg IVPUSH DAILY [facility] Last Admin: 08/17/21 08:42 Dose: 6 mg Documented by: Heparin Sodium (Porcine) (Heparin Sodium,Porcine 5,000 Unit/Ml Vial) 5,000 unit SUBCUT Q8H [facility] Last Admin: 08/17/21 17:41 Dose: 5,000 unit Documented by: Labetalol HCl 200 mg/ IV (Miscellaneous Supplies) 40 mls @ 0 mls/hr IVCONT .Q0M [facility]; Protocol Last Infusion: 08/17/21 13:14 Dose: Infused Documented by: Remdesivir 100 mg/ Sodium (Chloride) 230 mls @ 115 mls/hr IV Q24H [facility] Stop: 08/20/21 15:59 Last Infusion: 08/17/21 15:50 Dose: Infused Documented by: Pharmacy Consult (Consult Rx Perform Med Rec) 1 each MISCELLANE ONCE PRN PRN Reason: Consult order Sodium Chloride (0.9 % Sodium Chloride Flush 3 Ml Syringe) 3 ml IVFLUSH QSHIFT [facility] Last Admin: 08/17/21 15:33 Dose: 3 ml Documented by: Home Medications Medication Instructions Recorded Confirmed Last Taken Type cetirizine 10 mg tablet 10 mg PO DAILY 07/31/20 08/16/21 Unknown History Physical Exam Vital Signs: Vital Signs: Last Vital Signs Temp 98.9 F 08/17/21 19:00 Pulse 100 08/17/21 19:00 Resp 24 H 08/17/21 20:09 BP 146/99 H 08/17/21 19:00 Pulse Ox 93 08/17/21 19:00 Oxygen Flow Rate 50 08/16/21 20:00 BMI result Body Mass Index 18.2 Const: General: cooperative Eyes: General: appearance normal, both eyes and all related structures Resp: Effort & Inspection: normal respiratory effort Cardio: Rate: regular rate Rhythm: regular rhythm GI: Palpation (GI): Soft to palpation and nontender Skin: General skin exam: no rashes or lesions noted Extrem: General: Yes normal to inspection Results Labs CBC & Chem 7: 08/17/21 12:21 08/17/21 12:20 Labs: Short CBC 08/17/21 08/17/21 08/17/21 Range/Units 05:20 06:27 12:21 WBC Cancelled 11.4 H 18.4 H Hgb Cancelled 7.1 L D 8.2 L Hct Cancelled 23.8 L D 26.4 L Plt Count Cancelled 408 H 486 H BMP 08/17/21 08/17/21 05:20 12:20 Sodium 140 139 Potassium 4.3 4.9 Chloride 97 94 L Carbon Dioxide 33 H 33 H BUN 26 H 27 H Creatinine 0.66 0.67 Calcium 8.3 L D 8.2 L Microbiology Microbiology Results: Microbiology 08/16/21 07:02 Blood - Venous Blood Culture - Preliminary No growth after 24 hours. 08/16/21 07:02 Blood - Venous Blood Culture - Preliminary No growth after 24 hours. Assessment and Plan (1) Hypercapnic respiratory failure, chronic: Status: Acute (2) COVID-19 virus infection: Status: Acute She has COVID with acute respiratory failure requiring intubation She has cocaine,concern over substance All-PCN oxygen Remdesivir Dexamethasone Baricitinib as indicated No antibiotics
[2021-08-17] MEDS: fentaNYL citrate/PF 100 MCG/2 ML VIAL 50 MCG IVPUSH ×2 (21:40→23:52)
[2021-08-18] VITALS (37 sets, daily range): BP systolic 119–170; BP diastolic 43–88; PULSE 76–125; RESP 16–40; TEMP 36.4–37.3; O2SAT 84–98; BMI 17.0
[2021-08-18] MEDS: fentaNYL citrate/PF 100 MCG/2 ML VIAL 50 MCG IVPUSH ×9 (01:49→22:13)
[2021-08-18] MEDS: Heparin Sodium,Porcine 5,000 UNIT/ML VIAL 5000 UNIT SUBCUT ×3 (01:50→17:21)
[2021-08-18] MEDS: Albuterol/Iprat 2.5/0.5MG 3 ML AMPUL.NEB INHALE ×4 (02:04→17:35)
[2021-08-18 06:05] LABS: Basophils Percent Auto 0.1 % (0-2); Hematocrit 26.4 % (37.0-47.0); Hemoglobin 8.4 g/dl (12.0-16.0); Imm Gran Abs Auto 0.49 X10*3/uL (0.00-0.03); Imm Gran Pct Auto 4.7 % (0.0-0.4); Lymphocytes Absolute Auto 1.9 X10*3/uL (1.2-4.9); Lymphocytes Percent Auto 18.6 % (20-40); MANUAL DIFF FLAG SCAN; Mean Corpuscular HGB Conc 31.8 g/dl (31.0-35.0); Mean Corpuscular Hemoglobin 27.5 pg (27.0-33.0); Mean Corpuscular Volume 86.3 fL (80.0-98.0); Mean Platelet Volume 9.6 fL (9.4-12.3); Monocytes Absolute Auto 0.9 X10*3/uL (0.1-1.2); Monocytes Percent Auto 8.3 % (2-11); Neutrophils Absolute Auto 7.1 x10*3/uL (2.0-8.3); Neutrophils Percent Auto 68.3 % (45-73); Platelet Count 542 X10*3/uL (160-400); Red Blood Count 3.06 X10*6/uL (4.20-5.50); Red Cell Distribution Width 14.7 % (11.0-16.0); SCAN SMEAR FLAG 1; White Blood Count 10.4 X10*3/uL (4.8-10.8)
[2021-08-18 06:09] LABS: VBG Base Excess 13.3 mmol/L; VBG HCO3 35 mmol/L (22-26); VBG pCO2 35 mmHg; VBG pO2 79 mmHg
[2021-08-18 06:09] LABS: Venous Blood Gas Refer to POC result
[2021-08-18 06:32] LABS: SLIDE REVIEW VERIFIED
[2021-08-18 06:44] LABS: Alanine Aminotransferase 12 U/L (0-31); Alkaline Phosphatase 56 U/L (39-117); Anion Gap 17 (12-20); Aspartate Amino Transferase 22 U/L (5-31); Bilirubin Total 0.6 mg/dL (0.0-1.0); Blood Urea Nitrogen 25 mg/dL (9-16); Calcium 8.7 mg/dL (8.4-10.2); Carbon Dioxide 30 mmol/L (22-29); Chloride 93 mmol/L (96-108); Creatinine Clr Calc Pharmacy 64.3; Estimated Glomerular Filt Rate > 60; Glucose Random 107 mg/dL (60-115); Phosphorus 3.3 mg/dL (2.7-4.5); Potassium 4.3 mmol/L (3.3-5.1); Sodium 136 mmol/L (135-145); Total Protein 5.9 g/dL (6.5-8.0)
[2021-08-18 06:55] LABS: Magnesium 1.4 mg/dL (1.6-2.6)
[2021-08-18] MEDS: 0.9 % Sodium Chloride Flush 3 ML SYRINGE IVFLUSH ×3 (07:45→22:13)
[2021-08-18] MEDS: dexAMETHasone sod phosphate 4 MG/ML VIAL 6 MG IVPUSH (07:45)
[2021-08-18] MEDS: Magnesium Sulfate/H2O 2 GM/50 ML PIGGYBACK IV (08:15)
[2021-08-18] MEDS: Furosemide 20 MG/2 ML VIAL IVPUSH (08:16)
--- NOTE | 2021-08-18 10:18 | MHC.CLN ---
F/U DIET ADVANCED TO REGULAR WILL ADD ENSURE BID MONITOR PO INTAKE CLOSELY
--- NOTE | 2021-08-18 11:26 | PM.CCPN ---
Subjective Subjective Date of Service: 08/18/21 Interval History: 55-year-old lady with underlying history of supplemental oxygen dependent COPD, CVA with residual right-sided hemiparesis, generalized anxiety admitted on 08/16/2021 with worsening dyspnea. Patient was noted to be COVID and cocaine positive, requiring BiPAP support and was admitted to the intensive care unit. Patient started on diuretic, systemic glucocorticoids, remdesivir, and baricitinib. On bedside echocardiogram she was noted to have takotsubo-like physiology. No events overnight. Continues on high-flow nasal cannula. Critical Care Time (minutes): 0 Physical Exam Vital Signs: Vital Signs: Last Vital Signs Temp 98.2 F 08/18/21 11:00 Pulse 84 08/18/21 11:00 Resp 36 H 08/18/21 11:00 BP 131/64 08/18/21 11:00 Pulse Ox 94 08/18/21 11:00 Oxygen Flow Rate 50 08/16/21 20:00 BMI result Body Mass Index 17.0 Const: General: no acute distress, alert and awake Eyes: Sclerae: sclerae normal EOM: EOMs intact bilaterally Neck: Neck: Yes no lymphadenopathy, Yes trachea midline and Yes supple Resp: Effort & Inspection: normal respiratory effort ( on high-flow) and no respiratory distress Auscultation: crackles ( diffuse bilateral) Cardio: Rate: tachycardic Rhythm: regular rhythm Heart sounds: no gallops, no murmurs and no rubs GI: Palpation (GI): Soft to palpation and Other GI palpation findings present ( Nontender) Auscultation: normal bowel sounds Extrem: General: Yes no pedal edema, No clubbing and No cyanosis Objective Data Labs CBC & Chem 7: 08/18/21 05:53 08/18/21 05:53 Labs: Laboratory Results - last 24 hr 08/17/21 08/17/21 08/17/21 12:20 12:20 12:21 WBC 18.4 H RBC 3.00 L Hgb 8.2 L Hct 26.4 L MCV 88.0 MCH 27.3 MCHC 31.1 RDW 15.1 Plt Count 486 H MPV 9.6 Immature Gran % (Auto) 2.2 H Neut % (Auto) 85.5 H Lymph % (Auto) 8.9 L [place] % (Auto) 3.3 Eos % (Auto) 0.0 Baso % (Auto) 0.1 Lymph # (Auto) 1.6 [place] # (Auto) 0.6 Eos # (Auto) 0.0 Baso # (Auto) 0.0 Abs Immat Gran (auto) 0.41 H Absolute Neuts (auto) 15.7 H Absolute Nucleated RBC 0.000 Nucleated RBC % (auto) 0.0 Smear Tech's Comments VBG pH VBG pCO2 VBG pO2 VBG HCO3 VBG O2 Saturation VBG Base Excess Sodium 139 Potassium 4.9 Chloride 94 L Carbon Dioxide 33 H Anion Gap 17 BUN 27 H Creatinine 0.67 Estim Creat Clear Calc 64.8 Estimated GFR > 60 Random Glucose 102 Calcium 8.2 L Phosphorus Magnesium Total Bilirubin AST ALT Alkaline Phosphatase Troponin I High Sens 34.2 H D Total Protein Albumin Stool Occult Blood 08/17/21 08/18/21 08/18/21 14:15 05:53 05:53 WBC 10.4 RBC 3.06 L Hgb 8.4 L Hct 26.4 L MCV 86.3 MCH 27.5 MCHC 31.8 RDW 14.7 Plt Count 542 H MPV 9.6 Immature Gran % (Auto) 4.7 H Neut % (Auto) 68.3 Lymph % (Auto) 18.6 L [place] % (Auto) 8.3 Eos % (Auto) 0.0 Baso % (Auto) 0.1 Lymph # (Auto) 1.9 [place] # (Auto) 0.9 Eos # (Auto) 0.0 Baso # (Auto) 0.0 Abs Immat Gran (auto) 0.49 H Absolute Neuts (auto) 7.1 Absolute Nucleated RBC 0.000 Nucleated RBC % (auto) 0.0 Smear Tech's Comments VERIFIED VBG pH VBG pCO2 VBG pO2 VBG HCO3 VBG O2 Saturation VBG Base Excess Sodium 136 Potassium 4.3 Chloride 93 L Carbon Dioxide 30 H Anion Gap 17 BUN 25 H Creatinine 0.63 Estim Creat Clear Calc 64.3 Estimated GFR > 60 Random Glucose 107 Calcium 8.7 D Phosphorus 3.3 Magnesium 1.4 L* Total Bilirubin 0.6 AST 22 ALT 12 Alkaline Phosphatase 56 Troponin I High Sens Total Protein 5.9 L Albumin 3.0 L Stool Occult Blood NEGATIVE 08/18/21 06:01 WBC RBC Hgb Hct MCV MCH MCHC RDW Plt Count MPV Immature Gran % (Auto) Neut % (Auto) Lymph % (Auto) [place] % (Auto) Eos % (Auto) Baso % (Auto) Lymph # (Auto) [place] # (Auto) Eos # (Auto) Baso # (Auto) Abs Immat Gran (auto) Absolute Neuts (auto) Absolute Nucleated RBC Nucleated RBC % (auto) Smear Tech's Comments VBG pH 7.60 H* VBG pCO2 35 VBG pO2 79 VBG HCO3 35 H VBG O2 Saturation 95.0 VBG Base Excess 13.3 Sodium Potassium Chloride Carbon Dioxide Anion Gap BUN Creatinine Estim Creat Clear Calc Estimated GFR Random Glucose Calcium Phosphorus Magnesium Total Bilirubin AST ALT Alkaline Phosphatase Troponin I High Sens Total Protein Albumin Stool Occult Blood Microbiology Microbiology Results: Microbiology 08/16/21 07:02 Blood - Venous Blood Culture - Preliminary No growth after 48 hours. 08/16/21 07:02 Blood - Venous Blood Culture - Preliminary No growth after 48 hours. Progress Note: A&P Assessment and plan (1) Cocaine abuse: Status: Acute (2) Acute CHF (congestive heart failure): Status: Acute (3) Hemiparesis affecting right side as late effect of cerebrovascular accident: Status: Acute (4) Acute respiratory distress syndrome (ARDS) due to COVID-19 virus: Status: Acute (5) Takotsubo cardiomyopathy: Status: Acute (6) COPD mixed type: Status: Acute Assessment and Plan: Assessment: 55-year-old lady with underlying history of COPD, CVA, anxiety, substance abuse admitted with dyspnea secondary to combination of acute systolic congestive heart failure, cocaine abuse, and COVID-19 infection, initially requiring BiPAP support. Plan: Neuro: No acute issues. Cardiac: Acute systolic congestive heart failure, likely secondary to takotsubo like physiology noted on bedside echocardiogramy. 2D echocardiogram is pending. Improving with diuresis. Pulmonary: Acute on chronic hypoxic respiratory failure secondary to a combination of COVID-19 ARDS, acute systolic congestive heart failure, and cocaine abuse initially requiring BiPAP support. Now titrated off BiPAP. Continue to titrate off supplemental oxygen as tolerated. Renal: No acute issues. Endo: No acute issues. GI: No acute issues. ID: COVID-19, on remdesivir, systemic glucocorticoids, and baricitinib. Infectious Disease service care appreciated. Heme/Onc: No acute issues. Psych: No acute issues. Miscellaneous: No acute issues. Prophylaxis: Heparin Diet: regular Quality Stroke Does the patient have a stroke diagnosis?: No VTE Prior VTE?: No VTE Risk Level:: Medical - moderate - high VTE Device Contraindication: N/A - Device Ordered VTE Drug Contraindication: N/A - Med Ordered
[2021-08-18] MEDS: Remdesivir 100 MG in 0.9 % Sodium Chloride 230 ML 115 MG IV (12:59)
--- NOTE | 2021-08-18 13:40 | MHC.CM.PN ---
Pt continues in ICU on high flow O2 secondary to + COVID: pt unable to complete HCP today d/t lethargy and dyspnea. CM to attempt again on 08/19. Pt lives alone but has her dtr/FINGER BUFF SEWER provide assistance daily. CM to follow for finalization of d/c needs
[2021-08-19] VITALS (13 sets, daily range): BP systolic 142–163; BP diastolic 65–72; PULSE 77–112; RESP 18–28; TEMP 36.1–37.1; O2SAT 92–110
[2021-08-19] MEDS: Albuterol/Iprat 2.5/0.5MG 3 ML AMPUL.NEB INHALE ×5 (00:24→23:56)
[2021-08-19] MEDS: Heparin Sodium,Porcine 5,000 UNIT/ML VIAL 5000 UNIT SUBCUT ×3 (02:24→18:03)
[2021-08-19] MEDS: dexAMETHasone sod phosphate 4 MG/ML VIAL 6 MG IVPUSH (08:39)
[2021-08-19] MEDS: 0.9 % Sodium Chloride Flush 3 ML SYRINGE IVFLUSH ×2 (08:40→16:11)
--- NOTE | 2021-08-19 13:26 | P.PNIM_ITS ---
Subjective Subjective Date of Service: 08/19/21 Interval History: seen in f/u for resp failure, covid, remains very hypoxic, sob, on high flow Review of Systems General: AO X 3, no acute distress Resp: CTA bilateral CVS: S1,S2,RRR GI: +BS, NT, no distention Skin: No rash Neuro: motor grossly intact Psych: appropriate affect Physical Exam Vital Signs: Vital Signs: Last Vital Signs Temp 96.9 F 08/19/21 11:10 Pulse 96 08/19/21 11:10 Resp 20 08/19/21 11:45 BP 142/65 H 08/19/21 11:10 Pulse Ox 100 08/19/21 11:10 Oxygen Flow Rate 50 08/16/21 20:00 BMI result Body Mass Index 17.0 Const: Other: General: AO X 3, no acute distress Resp: CTA bilateral CVS: S1,S2,RRR GI: +BS, NT, no distention Skin: No rash Neuro: motor grossly intact Psych: appropriate affect Objective Data Active Medications Albuterol/Ipratropium (Albuterol/Iprat 2.5/0.5mg 3 Ml Ampul.Neb) 3 ml INHALE RQ6H [facility] Last Admin: 08/19/21 11:44 Dose: 3 ml Documented by: HANS Baricitinib (Baricitinib 2 Mg Tablet) 4 mg PO Q24H [facility] Stop: 08/29/21 10:01 Last Admin: 08/19/21 08:40 Dose: 4 mg Documented by: KAYLA Dexamethasone Sodium Phosphate (Dexamethasone Sod Phosphate 4 Mg/Ml Vial) 6 mg IVPUSH DAILY [facility] Last Admin: 08/19/21 08:39 Dose: 6 mg Documented by: KAYLA Fentanyl (Fentanyl Citrate/Pf 100 Mcg/2 Ml Vial) 50 mcg IVPUSH Q2H PRN; Protocol PRN Reason: Restlessness Last Admin: 08/18/21 22:13 Dose: 50 mcg Documented by: MINH Heparin Sodium (Porcine) (Heparin Sodium,Porcine 5,000 Unit/Ml Vial) 5,000 unit SUBCUT Q8H [facility] Last Admin: 08/19/21 08:40 Dose: 5,000 unit Documented by: KAYLA Remdesivir 100 mg/ Sodium (Chloride) 230 mls @ 115 mls/hr IV Q24H [facility] Stop: 08/20/21 15:59 Last Infusion: 08/18/21 16:08 Dose: 0 mls/hr Documented by: GAUTAM Pharmacy Consult (Consult Rx Perform Med Rec) 1 each MISCELLANE ONCE PRN PRN Reason: Consult order Sodium Chloride (0.9 % Sodium Chloride Flush 3 Ml Syringe) 3 ml IVFLUSH QSHIFT [facility] Last Admin: 08/19/21 08:40 Dose: 3 ml Documented by: KAYLA Labs CBC & Chem 7: 08/18/21 05:53 08/18/21 05:53 Microbiology Microbiology Results: Microbiology 08/16/21 07:02 Blood Culture - Preliminary Blood - Venous No growth after 48 hours. 08/16/21 07:02 Blood Culture - Preliminary Blood - Venous No growth after 48 hours. Assessment and Plan (1) Acute respiratory distress syndrome (ARDS) due to COVID-19 virus: Status: Acute Assessment and Plan: 55-year-old lady with underlying history of COPD, CVA, anxiety, substance abuse admitted with dyspnea secondary to combination of acute systolic congestive heart failure, cocaine abuse, and COVID-19 infection, initially requiring BiPAP support in ICU and transfered out of ICU 08/18 and remains very hypoxic and on high garry to maintain sat Accute hypoxic respiratory failure d/t covid 19 PNA, CHF (CHF component resolved.) -continue Remdesevir, Barcitinib, -Oxygen by high flow d/t persistent severe hypoxia -Dexamethasone Suspected acute systolic heart failure, and takotsubo-- Awaiting eval by cardiology, no indication for diuretics at this time, echo pending. Prophylaxis: ? Heparin Quality Stroke Does the patient have a stroke diagnosis?: No VTE Prior VTE?: No VTE Risk Level:: Medical - moderate - high VTE Device Contraindication: N/A - Device Ordered VTE Drug Contraindication: N/A - Med Ordered
[2021-08-19] MEDS: Remdesivir 100 MG in 0.9 % Sodium Chloride 230 ML 115 MG IV (14:21)
--- NOTE | 2021-08-19 14:36 | MHC.CLN ---
F/U DIET ADVANCED TO REGULAR PT RECEIVING ENSURE BID PROVIDES 700KCALS, 26G PROTEIN MONITOR PO INTAKE CLOSELY
[2021-08-19] MEDS: fentaNYL citrate/PF 100 MCG/2 ML VIAL 50 MCG IVPUSH ×2 (18:03→21:43)
[2021-08-20] VITALS (19 sets, daily range): BP systolic 132–178; BP diastolic 58–78; PULSE 77–113; RESP 18–20; TEMP 35.9–37; O2SAT 85–100; BMI 16.5
[2021-08-20] MEDS: fentaNYL citrate/PF 100 MCG/2 ML VIAL 50 MCG IVPUSH ×4 (01:10→20:51)
[2021-08-20] MEDS: 0.9 % Sodium Chloride Flush 3 ML SYRINGE IVFLUSH ×4 (01:10→20:52)
[2021-08-20] MEDS: Heparin Sodium,Porcine 5,000 UNIT/ML VIAL 5000 UNIT SUBCUT ×3 (02:20→16:48)
[2021-08-20] MEDS: Albuterol/Iprat 2.5/0.5MG 3 ML AMPUL.NEB INHALE ×3 (07:45→17:16)
[2021-08-20] MEDS: dexAMETHasone sod phosphate 4 MG/ML VIAL 6 MG IVPUSH (09:07)
--- NOTE | 2021-08-20 09:26 | P.PNIM_ITS ---
Subjective Subjective Date of Service: 08/20/21 Interval History: seen in f/u for resp failure, covid, remains very hypoxic, sob, O2 ranging from 84 to 88 on NRB and high flow right now Review of Systems General: Alert, anxious Resp: deem CVS: S1,S2,RRR GI: +BS, NT, no distention Skin: No rash Neuro: motor grossly intact Psych: appropriate affect Physical Exam Vital Signs: Vital Signs: Last Vital Signs Temp 97.9 F 08/20/21 03:55 Pulse 105 H 08/20/21 09:11 Resp 18 08/20/21 09:07 BP 137/63 08/20/21 09:11 Pulse Ox 98 08/20/21 03:55 Oxygen Flow Rate 50 08/16/21 20:00 BMI result Body Mass Index 16.5 Const: Other: General: AO X 3, no acute distress Resp: CTA bilateral CVS: S1,S2,RRR GI: +BS, NT, no distention Skin: No rash Neuro: motor grossly intact Psych: appropriate affect Objective Data Active Medications Albuterol/Ipratropium (Albuterol/Iprat 2.5/0.5mg 3 Ml Ampul.Neb) 3 ml INHALE RQ6H [facility] Last Admin: 08/20/21 07:45 Dose: 3 ml Documented by: HANS Baricitinib (Baricitinib 2 Mg Tablet) 4 mg PO Q24H [facility] Stop: 08/29/21 10:01 Last Admin: 08/20/21 09:07 Dose: 4 mg Documented by: COTEMA Dexamethasone Sodium Phosphate (Dexamethasone Sod Phosphate 4 Mg/Ml Vial) 6 mg IVPUSH DAILY [facility] Last Admin: 08/20/21 09:07 Dose: 6 mg Documented by: COTEMA Fentanyl (Fentanyl Citrate/Pf 100 Mcg/2 Ml Vial) 50 mcg IVPUSH Q2H PRN; Protocol PRN Reason: Restlessness Last Admin: 08/20/21 09:07 Dose: 50 mcg Documented by: COTEMA Heparin Sodium (Porcine) (Heparin Sodium,Porcine 5,000 Unit/Ml Vial) 5,000 unit SUBCUT Q8H [facility] Last Admin: 08/20/21 09:06 Dose: 5,000 unit Documented by: COTEMA Remdesivir 100 mg/ Sodium (Chloride) 230 mls @ 115 mls/hr IV Q24H [facility] Stop: 08/20/21 15:59 Last Infusion: 08/19/21 16:47 Dose: 0 mls/hr Documented by: LONNIE Pharmacy Consult (Consult Rx Perform Med Rec) 1 each MISCELLANE ONCE PRN PRN Reason: Consult order Sodium Chloride (0.9 % Sodium Chloride Flush 3 Ml Syringe) 3 ml IVFLUSH QSHIFT [facility] Last Admin: 08/20/21 08:58 Dose: 3 ml Documented by: JOHNNY Labs CBC & Chem 7: 08/18/21 05:53 08/18/21 05:53 Assessment and Plan (1) Acute respiratory distress syndrome (ARDS) due to COVID-19 virus: Status: Acute (2) Acute CHF (congestive heart failure): Status: Acute Assessment and Plan: 55-year-old lady with underlying history of COPD, CVA, anxiety, substance abuse admitted with dyspnea secondary to combination of acute systolic congestive heart failure, cocaine abuse, and COVID-19 infection, initially requiring BiPAP support in ICU and transfered out of ICU 08/18 and remains very hypoxic and on high garry to maintain sat Accute hypoxic respiratory failure d/t covid 19 PNA, CHF (CHF component seemed to resolve.) and underlying COPD--Hypoxia is worsening -continue Remdesevir, Barcitinib, -Oxygen by high flow and NRB d/t persistent severe hypoxia -Dexamethasone -get ABG and discuss with integration software engineer Suspected acute systolic heart failure, and takotsubo-- Awaiting eval by cardiology, no indication for diuretics at this time, echo not yet done COPD--continue bronchodilators by Neb, steroid as above. Prophylaxis: ? Heparin Quality Stroke Does the patient have a stroke diagnosis?: No VTE Prior VTE?: No VTE Risk Level:: Medical - moderate - high VTE Device Contraindication: N/A - Device Ordered VTE Drug Contraindication: N/A - Med Ordered
[2021-08-20 10:19] LABS: ABG Base Excess 18.1 mmol/L; ABG HCO3 43 mmol/L (22-26); ABG pCO2 52 mmHg (32-45); ABG pCO2 TC 55 mmHg (32-45); ABG pH 7.52 (7.35-7.45); ABG pO2 85 mmHg (83-108); ABG pO2 TC 91 (83-108)
[2021-08-20 10:19] LABS: ABG Refer to POC result
[2021-08-20] MEDS: Remdesivir 100 MG in 0.9 % Sodium Chloride 230 ML 115 MG IV (14:31)
--- NOTE | 2021-08-20 15:08 | P.CONCA_ITS ---
History of Present Illness History of Present Illness Date of Service: 08/20/21 Chief complaint: ? cad Narrative: 55-year-old female with background history of COPD on home oxygen, previous CVA with right-sided hemiparesis, generalized anxiety, cocaine abuse and history of old AR presented with worsening dyspnea she was COVID positive and cocaine positive. She was on BiPAP in the ICU and required IV diuretics steroids, remdesivir and baricitinib. Echocardiography was performed by int ensivist at bedside and she was thought to have takotsubo cardiomyopathy. Since then she has been discharged or tough ICU to the floor. The medicine team has also just to assess her for congestive heart failure and ?takotsubo cardiomyopathy. Patient right now is on high-flow oxygen. She is saying her breathing is better. She is denying any chest discomfort or shortness of breath. She is saying at home she was getting some vague chest pains but is unable to describe them. She underwent coronary CTA in 2019 which showed tandem mild stenosis less than 50% in the LAD and less likely a moderate stenosis 50 69% of the proximal to mid LAD. There was apical and distal anterior hypokinesis with evidence of diminished subendocardial enhancement suggestive of subendocardial distal LAD territory infarct. Mild stenosis of the proximal circumflex and proximal to mid RCA, preserved LVEF of 65%. [facility] Past Medical History Medical History Anxiety, generalized Arthrosis Asthma, moderate Asymptomatic carotid artery stenosis with infarction Chronic GERD COPD mixed type Difficulty sleeping Environmental allergies Exacerbation of asthma Hypercapnic respiratory failure, chronic Lipid disorder Tobacco abuse Family History Family History Father Substance abuse Mother Brain cancer Maternal Grandfather History of heart attack Maternal Grandmother History of heart attack Paternal Grandfather No problems noted. Paternal Grandmother No problems noted. Brother No problems noted. Brother No problems noted. Son No problems noted. Daughter No problems noted. Other Mental health disorder Family history: reviewed and not pertinent Surgical History Surgical History History of tonsillectomy and adenoidectomy Social History Social History Household Members: Children Housing: Apartment Do you presently have visiting nurse or other home services: Yes (pt stated vna) Patient Tobacco Use Status: Former Tobacco user Years Smoked: 35 years Use of substances other than those prescribed or required for medical reasons: No Currently Displaying Signs/Symptoms of Drug Intoxication Withdrawal: No Other Past Substance Use Problem:: urine tox positive for cocaine Have you been hit, kicked, punched, or otherwise hurt by someone within the past year? If so, by whom?: No Do you feel safe in your current relationship?: No Current Relationship Is there a partner from a previous relationship who is making you feel unsafe now?: No Are you made to feel afraid or neglected: No Advance Directives: No Advance Directives Information Provided: Yes Do you have thoughts of harming others: None Do you have a plan to hurt others: No Plan Recently lost weight without trying: Unsure Nutrition Risks: No Nutritional Risk Patient : No : No Poor oral hygiene: No service: No Current occupational status: disabled Meds Allergies Allergy/AdvReac Type Severity Reaction Status Date / Time crab Allergy Unknown UNKNOWN Unverified 06/10/21 15:36 penicillin V Allergy Unknown hives Verified 06/10/21 15:36 Penicillins [PENICILLINS] Allergy Unknown hives Verified 06/10/21 15:36 SEASONAL ALLERGIES Allergy Mild RUNNY NOSE Uncoded 06/10/21 15:36 Active Medications: Current Medications Albuterol/Ipratropium (Albuterol/Iprat 2.5/0.5mg 3 Ml Ampul.Neb) 3 ml INHALE RQ6H [facility] Last Admin: 08/20/21 13:03 Dose: 3 ml Documented by: Baricitinib (Baricitinib 2 Mg Tablet) 4 mg PO Q24H [facility] Stop: 08/29/21 10:01 Last Admin: 08/20/21 09:07 Dose: 4 mg Documented by: Dexamethasone Sodium Phosphate (Dexamethasone Sod Phosphate 4 Mg/Ml Vial) 6 mg IVPUSH DAILY [facility] Last Admin: 08/20/21 09:07 Dose: 6 mg Documented by: Fentanyl (Fentanyl Citrate/Pf 100 Mcg/2 Ml Vial) 50 mcg IVPUSH Q2H PRN; Protocol PRN Reason: Restlessness Last Admin: 08/20/21 09:07 Dose: 50 mcg Documented by: Heparin Sodium (Porcine) (Heparin Sodium,Porcine 5,000 Unit/Ml Vial) 5,000 unit SUBCUT Q8H [facility] Last Admin: 08/20/21 09:06 Dose: 5,000 unit Documented by: Remdesivir 100 mg/ Sodium (Chloride) 230 mls @ 115 mls/hr IV Q24H [facility] Stop: 08/20/21 15:59 Last Admin: 08/20/21 14:31 Dose: 115 mls/hr Documented by: Pharmacy Consult (Consult Rx Perform Med Rec) 1 each MISCELLANE ONCE PRN PRN Reason: Consult order Sodium Chloride (0.9 % Sodium Chloride Flush 3 Ml Syringe) 3 ml IVFLUSH QSHIFT [facility] Last Admin: 08/20/21 14:31 Dose: 3 ml Documented by: Home Medications Medication Instructions Recorded Confirmed Last Taken Type cetirizine 10 mg tablet 10 mg PO DAILY 07/31/20 08/16/21 Unknown History Physical Exam Vital Signs: Vital Signs: Last Vital Signs Temp 97.6 F 08/20/21 11:20 Pulse 90 08/20/21 11:20 Resp 20 08/20/21 11:23 BP 132/58 L 08/20/21 11:20 Pulse Ox 98 08/20/21 11:20 Oxygen Flow Rate 50 08/16/21 20:00 BMI result Body Mass Index 16.5 GENERAL APPEARANCE: in no acute distress, on high-flow nasal cannula.. NECK: no carotid bruit, no jugular venous distention. SKIN: no suspicious lesions, warm and dry. HEART: no murmurs, regular rate and rhythm. LUNGS: Fine crackles at bases. ABDOMEN: soft, nontender. EXTREMITIES: no edema. PERIPHERAL PULSES: equal. NEUROLOGIC: Right hemiparesis. Objective Labs and Meds Result diagrams: 08/18/21 05:53 08/18/21 05:53 Lab results: Laboratory Results - last 24 hr 08/20/21 10:13 O2 Saturation 95.0 ABG pH at Pt Temp 7.52 H ABG pH (Temp Correct) 7.50 H ABG pCO2 at Pt Temp 52 H ABG pCO2 (Temp Corrct 55 H ABG pO2 at Pt Temp 85 ABG pO2 (Temp Correct 91 ABG HCO3 43 H ABG Base Excess (Actual) 18.1 Assessment and Plan (1) Acute CHF (congestive heart failure): Status: Acute (2) Apical myocardial infarction: Status: Acute (3) Cocaine abuse: Status: Acute (4) COVID-19 virus infection: Status: Acute 55-year-old female with background history of COPD on home oxygen, previous CVA and cocaine abuse who is presenting with shortness of breath and hypoxia. She was on BiPAP the ICU. She was given IV diuretics and steroids. She continues to be on high-flow nasal cannula at this point. She is denying any symptoms. Previously she had CTA in 2019 which showed tandem stenosis in the LAD. These were not considered to be severe based on CTA. She also had subendocardial infarct seen in the distal LAD territory. She is now presenting with respiratory issues and a bedside echocardiogram as raise concern for Takotsubo Cardiomyopathy. Based on CTA she has coronary artery disease and previous apical infarct. This could give apical dyskinesis and takotsubo like changes. I think we need to do an echocardiogram to see how her LV looks like. Also we need to make sure she does not have an apical thrombus. Right now she has significant respiratory issues going on. Also with her CVA and active drug abuse I believe she should be medically managed. She should be started on baby aspirin. She should be on high-intensity statin therapy. She needs to stop using drugs. Thank you for allowing me to participate in the care of your patient. Please feel free to contact me if you have any questions. Procedures Date of Service Date of Service: 08/20/21
[2021-08-21] VITALS (15 sets, daily range): BP systolic 126–161; BP diastolic 56–67; PULSE 79–100; RESP 18–22; TEMP 36.3–36.7; O2SAT 90–100
[2021-08-21] MEDS: Heparin Sodium,Porcine 5,000 UNIT/ML VIAL 5000 UNIT SUBCUT ×3 (02:14→17:58)
[2021-08-21] MEDS: Albuterol/Iprat 2.5/0.5MG 3 ML AMPUL.NEB INHALE ×3 (05:59→17:19)
[2021-08-21] MEDS: 0.9 % Sodium Chloride Flush 3 ML SYRINGE IVFLUSH ×3 (09:56→20:07)
[2021-08-21] MEDS: dexAMETHasone sod phosphate 4 MG/ML VIAL 6 MG IVPUSH (09:56)
[2021-08-21] MEDS: Aspirin 81 MG TAB.CHEW PO (09:57)
--- NOTE | 2021-08-21 10:10 | P.PNIM_ITS ---
Subjective Subjective Date of Service: 08/21/21 Interval History: seen in f/u for resp failure, covid, remains very hypoxic, sob, O2 ranging from 84 to 88 on NRB and high flow right now Review of Systems General: Alert, anxious Resp: deem CVS: S1,S2,RRR GI: +BS, NT, no distention Skin: No rash Neuro: motor grossly intact Psych: appropriate affect Physical Exam Vital Signs: Vital Signs: Last Vital Signs Temp 97.6 F 08/21/21 07:52 Pulse 87 08/21/21 07:52 Resp 20 08/21/21 08:57 BP 146/67 H 08/21/21 07:52 Pulse Ox 100 08/21/21 07:52 Oxygen Flow Rate 50 08/16/21 20:00 BMI result Body Mass Index 16.5 Const: Other: General: AO X 3, no acute distress Resp: CTA bilateral CVS: S1,S2,RRR GI: +BS, NT, no distention Skin: No rash Neuro: motor grossly intact Psych: appropriate affect Objective Data Active Medications Albuterol/Ipratropium (Albuterol/Iprat 2.5/0.5mg 3 Ml Ampul.Neb) 3 ml INHALE RQ6H [facility] Last Admin: 08/21/21 05:59 Dose: 3 ml Documented by: MILANA Aspirin (Aspirin 81 Mg Tab.Chew) 81 mg PO DAILY [facility] Last Admin: 08/21/21 09:57 Dose: 81 mg Documented by: MARY ANNE Baricitinib (Baricitinib 2 Mg Tablet) 4 mg PO Q24H [facility] Stop: 08/29/21 10:01 Last Admin: 08/21/21 09:57 Dose: 4 mg Documented by: MARY ANNE Dexamethasone Sodium Phosphate (Dexamethasone Sod Phosphate 4 Mg/Ml Vial) 6 mg IVPUSH DAILY [facility] Last Admin: 08/21/21 09:56 Dose: 6 mg Documented by: MARY ANNE Comments: Fentanyl (Fentanyl Citrate/Pf 100 Mcg/2 Ml Vial) 50 mcg IVPUSH Q2H PRN; Protocol PRN Reason: Restlessness Last Admin: 08/20/21 20:51 Dose: 50 mcg Documented by: BELÉN Heparin Sodium (Porcine) (Heparin Sodium,Porcine 5,000 Unit/Ml Vial) 5,000 unit SUBCUT Q8H [facility] Last Admin: 12/10/21 09:57 Dose: 5,000 unit Documented by: MARY ANNE Pharmacy Consult (Consult Rx Perform Med Rec) 1 each MISCELLANE ONCE PRN PRN Reason: Consult order Sodium Chloride (0.9 % Sodium Chloride Flush 3 Ml Syringe) 3 ml IVFLUSH QSHIFT [facility] Last Admin: 08/21/21 09:56 Dose: 3 ml Documented by: MARY ANNE Labs CBC & Chem 7: 08/18/21 05:53 08/18/21 05:53 Labs: Laboratory Results - last 24 hr 08/20/21 10:13 O2 Saturation 95.0 ABG pH at Pt Temp 7.52 H ABG pH (Temp Correct) 7.50 H ABG pCO2 at Pt Temp 52 H ABG pCO2 (Temp Corrct 55 H ABG pO2 at Pt Temp 85 ABG pO2 (Temp Correct 91 ABG HCO3 43 H ABG Base Excess (Actual) 18.1 Microbiology Microbiology Results: Microbiology 08/16/21 07:02 Blood Culture - Final Blood - Venous No growth after 5 days. 08/16/21 07:02 Blood Culture - Final Blood - Venous No growth after 5 days. Assessment and Plan (1) Acute respiratory distress syndrome (ARDS) due to COVID-19 virus: Status: Acute Assessment and Plan: 55-year-old lady with underlying history of COPD, CVA, anxiety, substance abuse admitted with dyspnea secondary to combination of acute systolic congestive heart failure, cocaine abuse, and COVID-19 infection, initially requiring BiPAP support in ICU and transfered out of ICU 08/18 and remains very hypoxic and on high garry to maintain sat Accute hypoxic respiratory failure d/t covid 19 PNA, CHF/cardiomyopathy, underlying COPD -continue Remdesevir, Barcitinib, -Oxygen by high flow O2, and wean as lila -Dexamethasone -will need to be transerfed to ICU if O2 is not maintained above 90 on high flow Suspected acute systolic heart failure, and takotsubo/cardiomyopathy-- cardiology is recommending medical management, echo still not yet done COPD--continue bronchodilators by Neb, steroid as above. Prophylaxis: ? Heparin Quality Stroke Does the patient have a stroke diagnosis?: No VTE Prior VTE?: No VTE Risk Level:: Medical - moderate - high VTE Device Contraindication: N/A - Device Ordered VTE Drug Contraindication: N/A - Med Ordered
--- NOTE | 2021-08-21 10:15 | MHC.CM.PN ---
Patient is not yet medically cleared for dc (IV Decadron, High Flow O2).Home/resume services is the goal for dc and CM will follow for possible need to adjust the dc plan.
--- NOTE | 2021-08-21 11:00 | CA_ITS ---
Transthoracic Echocardiogram Patient (Last, First, Middle): Oxana Bragg L Gender: Female Date of : 1965 Age: 55 Procedure Date: 08/21/2021 Procedure Type: Transthoracic Echocardiogram Location: [facility] [place] Height: 154.94 cm Weight: 86.18 kg BSA: 1.85 m2 Heart Rate: bpm BP: 156 / 61 mmHg Swimming Instructor: RAUL Referring MD: Edu Mercer MD Symptoms: dyspnea on exertion Study Quality: Good Conclusions: - Normal left ventricular cavity size. There is normal left ventricular wall thickness. The left ventricular systolic function is low normal. - Diastolic function is normal for age. - The anteroseptal wall and mid inferoseptal segment are hypokinetic. - The basal inferoseptal segment is akinetic. Findings Left Ventricle Normal left ventricular cavity size. There is normal left ventricular wall thickness. The left ventricular systolic function is low normal. The visually estimated ejection fraction is between 50-55%. There is evidence of regional wall motion abnormalities. Diastolic function is normal for age. Wall Motion Rest Echo Findings The anteroseptal wall and mid inferoseptal segment are hypokinetic. The basal inferoseptal segment is akinetic. Right Ventricle Normal right ventricular cavity size and systolic function. Pericardium/Pleural There is no evidence of pericardial effusion. Measurements 2D Linear Measurements IVSd: 0.77 0.6-0.9/0.6-1.0 cm LVIDd: 4.80 3.9-5.3/4.2-5.9 cm LVIDd Index: 2.59 2.4-3.2/2.2-3.1 cm/m2 LVIDs: 3.14 2.0-3.6 cm LVPWd: 0.75 0.7-1.1 cm LV Mass: 147.39 67-162/88-224 g LV Mass Index: 79.67 43-95/49-115 g/m2 Mitral Valve MV Pk E: 0.63 MV PK A: 0.81 MV Decel Time: 165.00 E/A: 0.80 E'Lateral: 8.16 E'Medial: 7.40 E/E' Med: 8.60 E/E' Lat: 7.80 PHT: 48.00 MVA PHT: 4.58 Decel Henderson: 3.84 Diastolic Function MV Pk E: 0.63 MV Pk A: 0.81 E/A: 0.80 E'Medial: 7.40 E/E' Med: 8.60 E' Laterial: 8.16 E/E' Lat: 7.80 Updated in Other Vendor System with Status of Final Mitch An MD electronically signed on 08/22/2021 10:07:38 PM with status of Final
--- NOTE | 2021-08-21 13:07 | MHC.CLN ---
F/U DIET RX: REGULAR-APPROPRIATE PT RECEIVING ENSURE BID PROVIDES 700KCALS, 26G PROTEIN MONITOR PO INTAKE CLOSELY
[2021-08-21] MEDS: fentaNYL citrate/PF 100 MCG/2 ML VIAL 50 MCG IVPUSH (13:28)
[2021-08-22] VITALS (17 sets, daily range): BP systolic 114–142; BP diastolic 56–66; PULSE 65–111; RESP 18–20; TEMP 36.1–36.9; O2SAT 90–96; BMI 16.4
[2021-08-22] MEDS: Albuterol/Iprat 2.5/0.5MG 3 ML AMPUL.NEB INHALE ×4 (00:16→23:20)
[2021-08-22] MEDS: Heparin Sodium,Porcine 5,000 UNIT/ML VIAL 5000 UNIT SUBCUT ×3 (03:09→18:02)
[2021-08-22 09:35] LABS: Legionella Ag Urine Not Detected (Not Detected)
[2021-08-22] MEDS: 0.9 % Sodium Chloride Flush 3 ML SYRINGE IVFLUSH ×2 (10:29→18:02)
[2021-08-22] MEDS: Aspirin 81 MG TAB.CHEW PO (10:30)
[2021-08-22] MEDS: dexAMETHasone sod phosphate 4 MG/ML VIAL 6 MG IVPUSH (10:30)
--- NOTE | 2021-08-22 11:04 | P.PNIM_ITS ---
Subjective Subjective Date of Service: 08/22/21 Interval History: seen in f/u for resp failure, covid, remains very hypoxic, sob, oxygeneation is better Review of Systems General: Alert, anxious Resp: deem CVS: S1,S2,RRR GI: +BS, NT, no distention Skin: No rash Neuro: motor grossly intact Psych: appropriate affect Physical Exam Vital Signs: Vital Signs: Last Vital Signs Temp 98.5 F 08/22/21 07:10 Pulse 65 08/22/21 07:10 Resp 20 08/22/21 08:00 BP 139/65 08/22/21 07:10 Pulse Ox 91 L 08/22/21 07:10 Oxygen Flow Rate 50 08/16/21 20:00 BMI result Body Mass Index 16.4 Const: Other: General: AO X 3, no acute distress Resp: CTA bilateral CVS: S1,S2,RRR GI: +BS, NT, no distention Skin: No rash Neuro: motor grossly intact Psych: appropriate affect Objective Data Active Medications Albuterol/Ipratropium (Albuterol/Iprat 2.5/0.5mg 3 Ml Ampul.Neb) 3 ml INHALE RQ6H [facility] Last Admin: 08/22/21 05:23 Dose: Not Given Documented by: BELÉN Non-Admin Reason: Patient Asleep Aspirin (Aspirin 81 Mg Tab.Chew) 81 mg PO DAILY [facility] Last Admin: 08/22/21 10:30 Dose: 81 mg Documented by: MARY ANNE Baricitinib (Baricitinib 2 Mg Tablet) 4 mg PO Q24H [facility] Stop: 08/29/21 10:01 Last Admin: 08/22/21 10:30 Dose: 4 mg Documented by: MARY ANNE Dexamethasone Sodium Phosphate (Dexamethasone Sod Phosphate 4 Mg/Ml Vial) 6 mg IVPUSH DAILY [facility] Last Admin: 08/22/21 10:30 Dose: 6 mg Documented by: MARY ANNE Fentanyl (Fentanyl Citrate/Pf 100 Mcg/2 Ml Vial) 50 mcg IVPUSH Q2H PRN; Protocol PRN Reason: Restlessness Last Admin: 08/21/21 13:28 Dose: 50 mcg Documented by: MARY ANNE Heparin Sodium (Porcine) (Heparin Sodium,Porcine 5,000 Unit/Ml Vial) 5,000 unit SUBCUT Q8H [facility] Last Admin: 08/22/21 10:29 Dose: 5,000 unit Documented by: MARY ANNE Pharmacy Consult (Consult Rx Perform Med Rec) 1 each MISCELLANE ONCE PRN PRN Reason: Consult order Sodium Chloride (0.9 % Sodium Chloride Flush 3 Ml Syringe) 3 ml IVFLUSH QSHIFT [facility] Last Admin: 08/22/21 10:29 Dose: 3 ml Documented by: MARY ANNE Labs CBC & Chem 7: 08/18/21 05:53 08/18/21 05:53 Labs: Laboratory Results - last 24 hr 08/16/21 12:36 Ur L.pneumophila Ag Not Detected Microbiology Microbiology Results: Microbiology 08/16/21 07:02 Blood Culture - Final Blood - Venous No growth after 5 days. 08/16/21 07:02 Blood Culture - Final Blood - Venous No growth after 5 days. Assessment and Plan (1) Takotsubo cardiomyopathy: Status: Acute (2) Cocaine abuse: Status: Acute (3) Acute respiratory distress syndrome (ARDS) due to COVID-19 virus: Status: Acute Assessment and Plan: 55-year-old lady with underlying history of COPD, CVA, anxiety, substance abuse admitted with dyspnea secondary to combination of acute systolic congestive heart failure, cocaine abuse, and COVID-19 infection, initially requiring BiPAP support in ICU and transfered out of ICU 08/18 and remains very hypoxic and on high garry to maintain sat Accute hypoxic respiratory failure d/t covid 19 PNA, CHF/cardiomyopathy, underlying COPD -completed Remdesevir, continue Barcitinib, -Oxygen by high flow O2, and wean as lila -Dexamethasone -will need to be transerfed to ICU if O2 is not maintained above 90 on high flow Suspected acute systolic heart failure, and takotsubo/cardiomyopathy-- cardiology is recommending medical management, echo still not yet done COPD--continue bronchodilators by Neb, steroid as above. Prophylaxis: ? Heparin Quality Stroke Does the patient have a stroke diagnosis?: No VTE Prior VTE?: No VTE Risk Level:: Medical - moderate - high VTE Device Contraindication: N/A - Device Ordered VTE Drug Contraindication: N/A - Med Ordered
[2021-08-22 18:17] LABS: Strep Pneumo Ag urine Not Detected (Not Detected)
[2021-08-23] VITALS (10 sets, daily range): BP systolic 124–144; BP diastolic 57–66; PULSE 84–101; RESP 18–20; TEMP 36.1–37.6; O2SAT 84–99
[2021-08-23] MEDS: Heparin Sodium,Porcine 5,000 UNIT/ML VIAL 5000 UNIT SUBCUT ×2 (00:35→18:16)
[2021-08-23] MEDS: 0.9 % Sodium Chloride Flush 3 ML SYRINGE IVFLUSH ×3 (00:36→18:16)
[2021-08-23] MEDS: Albuterol/Iprat 2.5/0.5MG 3 ML AMPUL.NEB INHALE ×2 (06:16→11:28)
[2021-08-23] MEDS: dexAMETHasone sod phosphate 4 MG/ML VIAL 6 MG IVPUSH (10:03)
[2021-08-23] MEDS: Aspirin 81 MG TAB.CHEW PO (10:03)
--- NOTE | 2021-08-23 10:38 | P.PNIM_ITS ---
Subjective Subjective Date of Service: 08/23/21 Interval History: Seen in f/u for resp failure, covid, remains hypoxic on high flow, clinically looks ok Review of Systems no fever sob no cough no change in mental status Physical Exam Vital Signs: Vital Signs: Last Vital Signs Temp 98.7 F 08/23/21 08:00 Pulse 96 08/23/21 08:00 Resp 18 08/23/21 08:02 BP 142/66 H 08/23/21 08:00 Pulse Ox 90 L 08/23/21 08:00 Oxygen Flow Rate 50 08/16/21 20:00 BMI result Body Mass Index 16.4 Const: Other: General: AO X 3, no acute distress Resp: CTA bilateral, no accessory muscle use CVS: S1,S2,RRR GI: +BS, NT, no distention Skin: No rash Neuro: motor grossly intact Psych: appropriate affect Objective Data Active Medications Albuterol/Ipratropium (Albuterol/Iprat 2.5/0.5mg 3 Ml Ampul.Neb) 3 ml INHALE RQ6H [facility] Last Admin: 08/23/21 06:16 Dose: 3 ml Documented by: RADHA Aspirin (Aspirin 81 Mg Tab.Chew) 81 mg PO DAILY [facility] Last Admin: 08/23/21 10:03 Dose: 81 mg Documented by: MARY ANNE Baricitinib (Baricitinib 2 Mg Tablet) 4 mg PO Q24H [facility] Stop: 08/29/21 10:01 Last Admin: 08/23/21 10:03 Dose: 4 mg Documented by: MARY ANNE Dexamethasone Sodium Phosphate (Dexamethasone Sod Phosphate 4 Mg/Ml Vial) 6 mg IVPUSH DAILY [facility] Last Admin: 08/23/21 10:03 Dose: 6 mg Documented by: MARY ANNE Heparin Sodium (Porcine) (Heparin Sodium,Porcine 5,000 Unit/Ml Vial) 5,000 unit SUBCUT Q8H [facility] Last Admin: 08/23/21 10:31 Dose: Not Given Documented by: MARY ANNE Non-Admin Reason: Patient Refused Pharmacy Consult (Consult Rx Perform Med Rec) 1 each MISCELLANE ONCE PRN PRN Reason: Consult order Sodium Chloride (0.9 % Sodium Chloride Flush 3 Ml Syringe) 3 ml IVFLUSH QSHIFT [facility] Last Admin: 08/23/21 10:04 Dose: 3 ml Documented by: MARY ANNE Labs CBC & Chem 7: 08/18/21 05:53 08/18/21 05:53 Labs: Laboratory Results - last 24 hr 08/16/21 12:36 Ur Strep pneumoniae Ag Not Detected Assessment and Plan (1) Takotsubo cardiomyopathy: Status: Acute (2) Cocaine abuse: Status: Acute (3) Acute respiratory distress syndrome (ARDS) due to COVID-19 virus: Status: Acute Assessment and Plan: 55-year-old lady with underlying history of COPD, CVA, anxiety, substance abuse admitted with dyspnea secondary to combination of acute systolic congestive heart failure, cocaine abuse, and COVID-19 infection, initially requiring BiPAP support in ICU and transfered out of ICU 08/18 and remains very hypoxic and on high garry to maintain sat Accute hypoxic respiratory failure d/t covid 19 PNA, CHF/cardiomyopathy, und erlying COPD -completed Remdesevir, continue Barcitinib for toal of 14 days, -Oxygen by high flow O2, and wean as lila -Dexamethasone for 10 days -will need to be transerfed to ICU if O2 is not maintained above 90 on high flow Suspected acute systolic heart failure, and takotsubo/cardiomyopathy, presently compensated- cardiology is recommending medical management, echo shows EF of 50 to 55 and no finding of Tkotsubo COPD--continue bronchodilators by Neb, steroid as above. Prophylaxis: ? Heparin Quality Stroke Does the patient have a stroke diagnosis?: No VTE Prior VTE?: No VTE Risk Level:: Medical - moderate - high VTE Device Contraindication: N/A - Device Ordered VTE Drug Contraindication: N/A - Med Ordered
[2021-08-23] MEDS: Morphine Sulfate 2 MG/ML CARTRIDGE IVPUSH (18:16)
[2021-08-24] VITALS (8 sets, daily range): BP systolic 127–140; BP diastolic 60–69; PULSE 76–104; RESP 16–18; TEMP 36.2–37.1; O2SAT 95–100; BMI 15.7
[2021-08-24] MEDS: Heparin Sodium,Porcine 5,000 UNIT/ML VIAL 5000 UNIT SUBCUT ×3 (02:42→18:44)
[2021-08-24] MEDS: 0.9 % Sodium Chloride Flush 3 ML SYRINGE IVFLUSH ×4 (02:44→20:32)
[2021-08-24] MEDS: Albuterol/Iprat 2.5/0.5MG 3 ML AMPUL.NEB INHALE ×2 (07:47→11:34)
[2021-08-24] MEDS: dexAMETHasone sod phosphate 4 MG/ML VIAL 6 MG IVPUSH (09:08)
[2021-08-24] MEDS: Aspirin 81 MG TAB.CHEW PO (09:09)
--- NOTE | 2021-08-24 09:19 | MHC.CM.PN ---
Addendum entered by Cherri Cobian 08/24/21 09:22: Patient is not Vaccinated. Original Note: Female 55 DX Covid+ Patient has weaned to 15L O2. DP Resume [facility] @ home via BLS.
--- NOTE | 2021-08-24 12:03 | HO.PM.IMPN ---
Subjective Subjective Date of Service: 08/24/21 Interval History: Seen in f/u for resp failure, covid, remains hypoxic but making progress, has been transitioned from high flow to nasal cannula, and overall feels better Review of Systems no fever sob no cough no change in mental status Physical Exam Vital Signs: Vital Signs: Last Vital Signs Temp 97.4 F 08/24/21 11:09 Pulse 83 08/24/21 11:34 Resp 16 08/24/21 11:34 BP 137/63 08/24/21 11:09 Pulse Ox 100 08/24/21 11:09 Oxygen Flow Rate 50 08/16/21 20:00 BMI result Body Mass Index 15.7 Const: Other: General: AO X 3, no acute distress Resp: CTA bilateral, no accessory muscle use CVS: S1,S2,RRR GI: +BS, NT, no distention Skin: No rash Neuro: motor grossly intact Psych: appropriate affect Objective Data Active Medications Aspirin (Aspirin 81 Mg Tab.Chew) 81 mg PO DAILY [facility] Last Admin: 08/24/21 09:09 Dose: 81 mg Documented by: CHARY Baricitinib (Baricitinib 2 Mg Tablet) 4 mg PO Q24H [facility] Stop: 08/29/21 10:01 Last Admin: 08/24/21 09:09 Dose: 4 mg Documented by: CHARY Dexamethasone Sodium Phosphate (Dexamethasone Sod Phosphate 4 Mg/Ml Vial) 6 mg IVPUSH DAILY [facility] Last Admin: 08/24/21 09:08 Dose: 6 mg Documented by: CHARY Heparin Sodium (Porcine) (Heparin Sodium,Porcine 5,000 Unit/Ml Vial) 5,000 unit SUBCUT Q8H [facility] Last Admin: 08/24/21 09:09 Dose: 5,000 unit Documented by: CHARY Morphine Sulfate (Morphine Sulfate 2 Mg/Ml Cartridge) 2 mg IVPUSH Q6H PRN; Protocol PRN Reason: Pain, Severe (Pain Scale 7-10) Last Admin: 08/23/21 18:16 Dose: 2 mg Documented by: MARY ANNE Pharmacy Consult (Consult Rx Perform Med Rec) 1 each MISCELLANE ONCE PRN PRN Reason: Consult order Sodium Chloride (0.9 % Sodium Chloride Flush 3 Ml Syringe) 3 ml IVFLUSH QSHIFT [facility] Last Admin: 12/13/21 09:08 Dose: 3 ml Documented by: CHARY Labs CBC & Chem 7: 08/18/21 05:53 08/18/21 05:53 Assessment and Plan (1) Takotsubo cardiomyopathy: Status: Acute (2) Cocaine abuse: Status: Acute (3) Acute respiratory distress syndrome (ARDS) due to COVID-19 virus: Status: Acute Assessment and Plan: 55-year-old lady with underlying history of COPD, CVA, anxiety, substance abuse admitted with dyspnea secondary to combination of acute systolic congestive heart failure, cocaine abuse, and COVID-19 infection, initially requiring BiPAP support in ICU and transfered out of ICU 08/18 and remains very hypoxic and on high garry to maintain sat Accute hypoxic respiratory failure d/t covid 19 PNA, CHF/cardiomyopathy, underlying COPD --improving -completed Remdesevir, continue Barcitinib for toal of 14 days, -Oxygen by high nasal cannula and wean with goal of O2 saturation >88 or better -Dexamethasone for 10 days -will need to be transerfed to ICU if O2 is not maintained above 90 on high flow Suspected acute systolic heart failure, and takotsubo/cardiomyopathy, presently compensated- cardiology is recommending medical management, echo shows EF of 50 to 55 and no finding of Tkotsubo COPD--continue bronchodilators by Neb, steroid as above. Prophylaxis: ? Heparin Out of bed, at least to chair Quality Stroke Does the patient have a stroke diagnosis?: No VTE Prior VTE?: No VTE Risk Level:: Medical - moderate - high VTE Device Contraindication: N/A - Device Ordered VTE Drug Contraindication: N/A - Med Ordered
--- NOTE | 2021-08-24 14:04 | MHC.CLN ---
F/U PO INTAKE VARIABLE DIET RX: REGULAR-APPROPRIATE PT RECEIVING ENSURE BID PROVIDES 700KCALS, 26G PROTEIN MONITOR PO INTAKE CLOSELY
[2021-08-24] MEDS: Morphine Sulfate 2 MG/ML CARTRIDGE IVPUSH (21:32)
[2021-08-25] VITALS (9 sets, daily range): BP systolic 105–146; BP diastolic 52–94; PULSE 82–91; RESP 18–20; TEMP 36.1–37.1; O2SAT 94–100; BMI 16.4
[2021-08-25] MEDS: Heparin Sodium,Porcine 5,000 UNIT/ML VIAL 5000 UNIT SUBCUT ×4 (02:39→23:51)
[2021-08-25] MEDS: dexAMETHasone sod phosphate 4 MG/ML VIAL 6 MG IVPUSH (09:38)
[2021-08-25] MEDS: Aspirin 81 MG TAB.CHEW PO (09:39)
[2021-08-25] MEDS: Zinc Sulfate 220 MG CAPSULE PO (09:39)
[2021-08-25] MEDS: 0.9 % Sodium Chloride Flush 3 ML SYRINGE IVFLUSH ×3 (09:39→20:18)
[2021-08-25] MEDS: Famotidine 20 MG TABLET PO ×2 (09:39→20:18)
[2021-08-25] MEDS: Morphine Sulfate 2 MG/ML CARTRIDGE IVPUSH ×2 (09:54→23:51)
--- NOTE | 2021-08-25 12:42 | P.PNIM_ITS ---
Subjective Subjective Date of Service: 08/25/21 Interval History: acute hypoxemic respiratory failure secondary to COVID. Review of Systems Still short of breath but slowly improving, denies any cough or nausea or vomiting. Physical Exam Vital Signs: Vital Signs: Last Vital Signs Temp 98.3 F 08/25/21 10:52 Pulse 88 08/25/21 10:52 Resp 20 08/25/21 10:52 BP 113/54 L 08/25/21 10:52 Pulse Ox 99 08/25/21 10:52 Oxygen Flow Rate 50 08/16/21 20:00 BMI result Body Mass Index 16.4 General: AO X 3, no acute distress Resp:fair air entry , no accessory muscle use CVS: S1,S2,RRR GI: +BS, NT, no distention Skin: No rash Neuro:? motor grossly intact Psych: appropriate affect Objective Data Active Medications Aspirin (Aspirin 81 Mg Tab.Chew) 81 mg PO DAILY [facility] Last Admin: 08/25/21 09:39 Dose: 81 mg Documented by: ZEE Baricitinib (Baricitinib 2 Mg Tablet) 4 mg PO Q24H [facility] Stop: 08/29/21 10:01 Last Admin: 08/25/21 09:39 Dose: 4 mg Documented by: ZEE Dexamethasone Sodium Phosphate (Dexamethasone Sod Phosphate 4 Mg/Ml Vial) 6 mg IVPUSH DAILY [facility] Last Admin: 08/25/21 09:38 Dose: 6 mg Documented by: ZEE Famotidine (Famotidine 20 Mg Tablet) 20 mg PO BID [facility] Last Admin: 08/25/21 09:39 Dose: 20 mg Documented by: ZEE Heparin Sodium (Porcine) (Heparin Sodium,Porcine 5,000 Unit/Ml Vial) 5,000 unit SUBCUT Q8H [facility] Last Admin: 08/25/21 09:38 Dose: 5,000 unit Documented by: ZEE Morphine Sulfate (Morphine Sulfate 2 Mg/Ml Cartridge) 2 mg IVPUSH Q6H PRN; Protocol PRN Reason: Pain, Severe (Pain Scale 7-10) Last Admin: 08/25/21 09:54 Dose: 2 mg Documented by: ZEE Pharmacy Consult (Consult Rx Perform Med Rec) 1 each MISCELLANE ONCE PRN PRN Reason: Consult order Sodium Chloride (0.9 % Sodium Chloride Flush 3 Ml Syringe) 3 ml IVFLUSH QSHIFT [facility] Last Admin: 08/25/21 09:39 Dose: 3 ml Documented by: ZEE Zinc Sulfate (Zinc Sulfate 220 Mg Capsule) 220 mg PO DAILY [facility] Last Admin: 08/25/21 09:39 Dose: 220 mg Documented by: ZEE Labs CBC & Chem 7: 08/18/21 05:53 08/18/21 05:53 Assessment and Plan (1) Acute respiratory distress syndrome (ARDS) due to COVID-19 virus: Status: Acute Assessment and Plan: 55-year-old lady with underlying history of COPD, CVA, anxiety, substance abuse admitted with dyspnea secondary to combination of acute systolic congestive heart failure, cocaine abuse, and COVID-19 infection, initially requiring BiPAP support in ICU and transfered out of ICU 08/18 and remains very hypoxic and on high garry to maintain sat Accute hypoxic respiratory failure d/t covid 19 PNA, CHF/cardiomyopathy, underlying COPD --improving -completed Remdesevir, continue Barcitinib for 05/25 -Oxygen by high nasal cannula and wean? with goal of O2 saturation >88 or better -Dexamethasone for day7 -will need to be transerfed to ICU if O2 is not maintained above 90 on high flow Suspected acute systolic heart failure, and takotsubo/cardiomyopathy, presently compensated- cardiology is recommending medical management, echo shows EF of 50 to 55 and no finding of Tkotsubo COPD--continue bronchodilators by Neb, steroid as above. Prophylaxis: ? Heparin Out of bed, at least to chair Quality Stroke Does the patient have a stroke diagnosis?: No VTE Prior VTE?: No VTE Risk Level:: Medical - moderate - high VTE Device Contraindication: N/A - Device Ordered VTE Drug Contraindication: N/A - Med Ordered
--- NOTE | 2021-08-25 18:59 | PC.NURSE ---
called her pharmacy to clarify about gabapentin previously used for the pain and the pharmacy said the last time she used it was 8 months ago. Doctor notified
[2021-08-26 04:00] VITALS: BP 129/61; PULSE 84; RESP 18; TEMP 37.1; O2SAT 98
[2021-08-26 06:00] VITALS: BMI 16.6
[2021-08-26 07:24] VITALS: BP 123/58; PULSE 78; RESP 18; TEMP 36.4; O2SAT 96
[2021-08-26] MEDS: Famotidine 20 MG TABLET PO ×2 (09:56→19:47)
[2021-08-26] MEDS: Heparin Sodium,Porcine 5,000 UNIT/ML VIAL 5000 UNIT SUBCUT ×2 (09:56→18:15)
[2021-08-26] MEDS: Zinc Sulfate 220 MG CAPSULE PO (09:56)
[2021-08-26] MEDS: dexAMETHasone sod phosphate 4 MG/ML VIAL 6 MG IVPUSH (09:56)
[2021-08-26] MEDS: Aspirin 81 MG TAB.CHEW PO (09:56)
[2021-08-26] MEDS: 0.9 % Sodium Chloride Flush 3 ML SYRINGE IVFLUSH ×3 (09:57→19:47)
[2021-08-26 11:11] VITALS: BP 125/60; PULSE 86; RESP 18; TEMP 36.4; O2SAT 94
--- NOTE | 2021-08-26 12:58 | MHC.CLN ---
F/U PO INTAKE SLIGHTLY IMPROVED DIET RX: REGULAR-APPROPRIATE PT RECEIVING ENSURE BID PROVIDES 700KCALS, 26G PROTEIN MONITOR PO INTAKE CLOSELY
[2021-08-26] MEDS: Morphine Sulfate 2 MG/ML CARTRIDGE IVPUSH ×2 (14:04→22:28)
--- NOTE | 2021-08-26 14:35 | MHC.CM.PN ---
Female 55 Covid+ She has been weaned to 4L. She is on 2L via [place] @home DP home with Wilber and VNA.
--- NOTE | 2021-08-26 14:48 | P.PNIM_ITS ---
Subjective Subjective Date of Service: 08/26/21 Interval History: Acute hypoxemic respiratory failure secondary to COVID. Review of Systems Says that her shortness of breath improving as well as cough is improving, continue tapering down oxygen Physical Exam Vital Signs: Vital Signs: Last Vital Signs Temp 97.5 F 08/26/21 11:11 Pulse 86 08/26/21 11:11 Resp 18 08/26/21 11:11 BP 125/60 08/26/21 11:11 Pulse Ox 94 08/26/21 11:11 Oxygen Flow Rate 50 08/16/21 20:00 BMI result Body Mass Index 16.6 ?General: AO X 3, no acute distress Resp:fair air entry? , no accessory muscle use CVS: S1,S2,RRR GI: +BS, NT, no distention Skin: No rash Neuro:? motor grossly intact Psych: appropriate affect Objective Data Active Medications Aspirin (Aspirin 81 Mg Tab.Chew) 81 mg PO DAILY [facility] Last Admin: 08/26/21 09:56 Dose: 81 mg Documented by: MARY ANNE Baricitinib (Baricitinib 2 Mg Tablet) 4 mg PO Q24H [facility] Stop: 08/29/21 10:01 Last Admin: 08/26/21 09:56 Dose: 4 mg Documented by: MARY ANNE Dexamethasone Sodium Phosphate (Dexamethasone Sod Phosphate 4 Mg/Ml Vial) 6 mg IVPUSH DAILY [facility] Last Admin: 08/26/21 09:56 Dose: 6 mg Documented by: MARY ANNE Famotidine (Famotidine 20 Mg Tablet) 20 mg PO BID [facility] Last Admin: 08/26/21 09:56 Dose: 20 mg Documented by: MARY ANNE Heparin Sodium (Porcine) (Heparin Sodium,Porcine 5,000 Unit/Ml Vial) 5,000 unit SUBCUT Q8H [facility] Last Admin: 08/26/21 09:56 Dose: 5,000 unit Documented by: MARY ANNE Morphine Sulfate (Morphine Sulfate 2 Mg/Ml Cartridge) 2 mg IVPUSH Q6H PRN; Protocol PRN Reason: Pain, Severe (Pain Scale 7-10) Last Admin: 08/26/21 14:04 Dose: 2 mg Documented by: MARY ANNE Pharmacy Consult (Consult Rx Perform Med Rec) 1 each MISCELLANE ONCE PRN PRN Reason: Consult order Sodium Chloride (0.9 % Sodium Chloride Flush 3 Ml Syringe) 3 ml IVFLUSH QSHIFT [facility] Last Admin: 08/26/21 09:57 Dose: 3 ml Documented by: MARY ANNE Zinc Sulfate (Zinc Sulfate 220 Mg Capsule) 220 mg PO DAILY [facility] Last Admin: 08/26/21 09:56 Dose: 220 mg Documented by: MARY ANNE Labs CBC & Chem 7: 08/18/21 05:53 08/18/21 05:53 Assessment and Plan (1) Acute respiratory distress syndrome (ARDS) due to COVID-19 virus: Status: Acute (2) COVID-19 virus infection: Status: Acute Assessment and Plan: 55-year-old lady with underlying history of COPD, CVA, anxiety, substance abuse admitted with dyspnea secondary to combination of acute systolic congestive heart failure, cocaine abuse, and COVID-19 infection, initially requiring BiPAP support in ICU and transfered out of ICU 08/18 and remains very hypoxic and on high garry to maintain sat 1.Accute hypoxic respiratory failure d/t covid 19 PNA, CHF/cardiomyopathy, underlying COPD --improving -completed Remdesevir, continue Barcitinib for 05/25 -Oxygen by high nasal cannula and wean? with goal of O2 saturation >88 or better -Dexamethasone for day8 -will need to be transerfed to ICU if O2 is not maintained above 90 on high flow 2.Suspected acute systolic heart failure, and takotsubo/cardiomyopathy, presently compensated- cardiology is recommending medical management, echo shows EF of 50 to 55 and no finding of Tkotsubo 3.COPD--continue bronchodilators by Neb, steroid as above. Prophylaxis: ? Heparin Out of bed, at least to chair Quality Stroke Does the patient have a stroke diagnosis?: No VTE Prior VTE?: No VTE Risk Level:: Medical - moderate - high VTE Device Contraindication: N/A - Device Ordered VTE Drug Contraindication: N/A - Med Ordered
[2021-08-26 15:44] VITALS: BP 120/59; PULSE 81; RESP 18; TEMP 37.1; O2SAT 95
[2021-08-26 19:47] VITALS: BP 129/61; PULSE 99; RESP 18; TEMP 36.4; O2SAT 97
[2021-08-26 23:49] VITALS: BP 116/69; PULSE 95; RESP 18; TEMP 36.5; O2SAT 95
[2021-08-27] VITALS (7 sets, daily range): BP systolic 125–140; BP diastolic 52–64; PULSE 82–102; RESP 15–20; TEMP 36.1–36.6; O2SAT 87–96; BMI 17.6
[2021-08-27] MEDS: Heparin Sodium,Porcine 5,000 UNIT/ML VIAL 5000 UNIT SUBCUT ×2 (01:35→10:36)
[2021-08-27] MEDS: Aspirin 81 MG TAB.CHEW PO (10:36)
[2021-08-27] MEDS: dexAMETHasone sod phosphate 4 MG/ML VIAL 6 MG IVPUSH (10:36)
[2021-08-27] MEDS: Zinc Sulfate 220 MG CAPSULE PO (10:36)
[2021-08-27] MEDS: Famotidine 20 MG TABLET PO (10:37)
[2021-08-27] MEDS: 0.9 % Sodium Chloride Flush 3 ML SYRINGE IVFLUSH (10:37)
--- NOTE | 2021-08-27 12:40 | P.PNIM_ITS ---
Subjective Subjective Date of Service: 08/31/21 Interval History: acute Hypoxemic respiratory failure secondary to COVID infection. Review of Systems sob seems To be improving, no cough. Denies any chest pain or abdominal pain or nausea vomiting Physical Exam Vital Signs: Vital Signs: Last Vital Signs Temp 97.3 F 08/27/21 11:53 Pulse 100 08/27/21 11:53 Resp 20 08/27/21 11:53 BP 140/52 H 08/27/21 11:53 Pulse Ox 93 08/27/21 11:53 Oxygen Flow Rate 50 08/16/21 20:00 BMI result Body Mass Index 17.6 General: AO X 3, no acute distress Resp:fair air entry? , no accessory muscle use CVS: S1,S2,RRR GI: +BS, NT, no distention Skin: No rash Neuro:? motor grossly intact ext: no cyanois or edema Psych: appropriate affect Objective Data Active Medications Aspirin (Aspirin 81 Mg Tab.Chew) 81 mg PO DAILY [facility] Last Admin: 08/27/21 10:36 Dose: 81 mg Documented by: MARY ANNE Baricitinib (Baricitinib 2 Mg Tablet) 4 mg PO Q24H [facility] Stop: 08/29/21 10:01 Last Admin: 08/27/21 10:37 Dose: 4 mg Documented by: MARY ANNE Dexamethasone Sodium Phosphate (Dexamethasone Sod Phosphate 4 Mg/Ml Vial) 6 mg IVPUSH DAILY [facility] Last Admin: 08/27/21 10:36 Dose: 6 mg Documented by: MARY ANNE Famotidine (Famotidine 20 Mg Tablet) 20 mg PO BID [facility] Last Admin: 08/27/21 10:37 Dose: 20 mg Documented by: MARY ANNE Heparin Sodium (Porcine) (Heparin Sodium,Porcine 5,000 Unit/Ml Vial) 5,000 unit SUBCUT Q8H [facility] Last Admin: 08/27/21 10:36 Dose: 5,000 unit Documented by: MARY ANNE Morphine Sulfate (Morphine Sulfate 2 Mg/Ml Cartridge) 2 mg IVPUSH Q6H PRN; Protocol PRN Reason: Pain, Severe (Pain Scale 7-10) Last Admin: 08/26/21 22:28 Dose: 2 mg Documented by: BELÉN Pharmacy Consult (Consult Rx Perform Med Rec) 1 each MISCELLANE ONCE PRN PRN Reason: Consult order Sodium Chloride (0.9 % Sodium Chloride Flush 3 Ml Syringe) 3 ml IVFLUSH QSHIFT [facility] Last Admin: 08/27/21 10:37 Dose: 3 ml Documented by: BROPavel Zinc Sulfate (Zinc Sulfate 220 Mg Capsule) 220 mg PO DAILY [facility] Last Admin: 08/27/21 10:36 Dose: 220 mg Documented by: MARY ANNE Labs CBC & Chem 7: 08/18/21 05:53 08/18/21 05:53 Echocardiogram Echocardiogram Results: ? Quality Stroke Does the patient have a stroke diagnosis?: No VTE Prior VTE?: No VTE Risk Level:: Medical - moderate - high VTE Device Contraindication: N/A - Device Ordered VTE Drug Contraindication: N/A - Med Ordered
--- NOTE | 2021-08-27 12:44 | P.DS_ITS ---
DS: Providers Provider Date of Service: 08/27/21 Date of admission: 08/16/21 10:15 Primary care physician: Brianna Gonzalez MD Consults: 08/16/21 08:08 Consult to Infectious Diseases Stat Consulting Provider: Vicky Mcbride Reason for consultation: MEROPENEM ORDERED X1 DOSE IN ED 08/20/21 09:30 Consult to Cardiology Routine Consulting Provider: Mitch An Reason for consultation: cardiomyopathy ?Takotsubo 08/27/21 12:21 Consult to Care Team Routine Comment: Reason for consultation: drug abuse 08/27/21 12:36 Addiction Medicine Routine Consulting Provider: Brigitte Gonzalez Reason for consultation: drug abuse Has provider been notified: No DS: Diagnosis Discharge Diagnosis (1) Acute respiratory distress syndrome (ARDS) due to COVID-19 virus: Status: Acute (2) COVID-19 virus infection: Status: Acute DS: Summary Hospital Course Hospital Course: 55-year-old lady with underlying history of COPD, CVA, anxiety, substance abuse admitted with dyspnea secondary to combination of acute systolic congestive heart failure, cocaine abuse, and COVID-19 infection, initially requiring BiPAP support in ICU and transfered out of ICU 08/18 and remains very hypoxic and on high garry to maintain sat. hospital course: Patient came to the hospital because of acute hypoxemic respiratory failure secondary to COVID infection- initially requiring ICU level of care and BiPAP- subsequently was improving and transferred to the floor and treated withoxygen support, steroids, supportive care -patient seems to be improved significantly , in addition patient was also found to have cardiomyopathy for which she was seen by Cardiology: Recommended to add aspirin and statin which is added. Patient was also encouraged to avoid drug abuse. Seen by addiction - information given to the patient. continue home oxygen as she is currently using for COPD 2 L. Please repeat chest imaging in 3-4 weeks to see resolution of pneumonia finding and hilar lymphadenopathy- further management as per PCP. anemia: normocytic : please repeat cbc with PCP and further management as per PCP. currently denies any acute bleeding or any melena history. PT evaluation- recommended home with Pt versus rehab: But patient and her family plan is taking her home, patient going home with [facility] PT. Further management outpatient as per PCP. Above management discussed with the patient in detail length she understand and in agreement with the above plan, time spent 50 minutes and 50% time spent on counseling. Significant findings: As above. Procedures performed: None. Treatment and response: As above. Complications: None. Time Spent with Patient Time attestation: Total time spent providing and/or coordinating discharge services: Discharge coordination time: Greater than 30 minutes Quality: Stroke Does the patient have a stroke diagnosis?: No Physical Exam Vital Signs: Vital Signs: Last Vital Signs Temp 97.3 F 08/27/21 11:53 Pulse 100 08/27/21 11:53 Resp 20 08/27/21 11:53 BP 140/52 H 08/27/21 11:53 Pulse Ox 93 08/27/21 11:53 Oxygen Flow Rate 50 08/16/21 20:00 BMI result Body Mass Index 17.6 General: AO X 3, no acute distress Resp:fair air entry? , no accessory muscle use CVS: S1,S2,RRR GI: +BS, NT, no distention Skin: No rash Neuro:? motor grossly intact ext: no cyanois or edema Psych: appropriate affect DS: Data Additional Comments Additional comments: Echo: - Normal left ventricular cavity size.? There is normal left ? ? ventricular wall thickness.? The left ventricular systolic ? ? ? function is low normal.? - Diastolic function is normal for age.? - The anteroseptal wall and mid inferoseptal segment are ? hypokinetic. ? - The basal inferoseptal segment is akinetic.? Cta: IMPRESSION: Significant changes of centrilobular emphysema. ? Interstitial lung disease bilaterally with airspace disease seen dependently within the lower lobes. Above findings may be related to interstitial and airspace edema or possible inflammatory or infectious process. ? Hilar lymphadenopathy. ? VTE: negative Blood Cult(2nd) Procedure Result Verified Site Blood Culture (Second) Final 08/21/21-07 No growth after 5 days. Discharge Plan Discharge Anticipated Discharge Date/Time: 08/27/21 13:28 Patient Disposition: Home, Self-Care Discharge Diagnosis: acute Hypoxemic respiratory failure secondary to COVID infection.Suspected acute systolic heart failure, and takotsubo/cardiomyopathy Referrals: Stephen DONOVAN [Outside] - 1 Week Brianna Gonzalez MD [Primary Care Provider] - 1 Week Discharge Medications: New famotidine 20 mg Tablet 20 mg PO BID Qty: 60 RF: 0 zinc sulfate [Zinc-220] 50 mg zinc (220 mg) Capsule 220 mg PO DAILY Qty: 30 RF: 0 aspirin 81 mg Tablet,Chewable 81 mg PO DAILY Qty: 30 RF: 0 atorvastatin 40 mg tablet 40 mg PO BEDTIME Qty: 30 RF: 0 dexamethasone 6 mg tablet 6 mg PO DAILY Qty: 2 RF: 0 Continued mirtazapine 30 mg tablet 30 mg PO BEDTIME 90 Days Qty: 90 RF: 0 albuterol sulfate 90 mcg/actuation HFA aerosol inhaler 2 puff PO Q6H PRN (Reason: bronchospasm) 30 Days Qty: 6.7 RF: 0 escitalopram oxalate [Lexapro] 10 mg tablet 10 mg PO DAILY 90 Days Qty: 90 RF: 0 omeprazole 20 mg capsule,delayed release(DR/EC) 20 mg PO DAILY 90 Days Qty: 90 RF: 3 ipratropium-albuterol 0.5 mg-3 mg(2.5 mg base)/3 mL solution for nebulization 1 ml inhalation TID PRN (Reason: shortness of breath) 30 Days Qty: 180 RF: 0 cetirizine 10 mg tablet 10 mg PO DAILY RF: 0 Discharge Orders: Discharge Order (Routine); Ordered 08/27/21 Ordered By: Les Ribeiro Diet: advance to usual diet, low fat, low cholesterol and low salt diet Activity on Discharge: As tolerated Stand Alone Forms: Patient Portal Discharge page Other Ambulatory Orders: Complete Blood Count no Diff (Routine) Timeframe: 1 Week Facility: [facility] - Location: Laboratory Ordered By: Les Ribeiro Care Plan Goals: Patient came to the hospital because of acute hypoxemic respiratory failure secondary to COVID infection- Started on oxygen support, steroids, supportive care -patient seems to be improved significantly , in addition patient was a lso found to have cardiomyopathy for which she was seen by Cardiology: Recommended to add aspirin and statin which is added. Patient was also encouraged to avoid drug abuse. Seen by addiction - information given to the patient. continue home oxygen as she is currently using for COPD 2 L. anemia: normocytic : please repeat cbc with PCP and further management as per PCP. currently denies any acute bleeding or any melena history. PT evaluation- recommended home with Pt versus rehab: But patient and her family plan is taking her home, patient going home with [facility] PT. Further management outpatient as per PCP. Health Concerns: as above. Plan of Treatment: As above. Assessment: As above. Discharge Date/Time: 08/27/21 22:22
--- NOTE | 2021-08-27 13:15 | MHC.RECOVRN ---
Attempted to meet with pt after consult placed to Addiction Medicine for cocaine use. Pt currently with PT. Recovery resources given to pts RN to give to pt once done. Pt provided with t/w card if questions arise. Will continue to follow and reattempt to meet with pt.
[2021-08-27 13:30] LABS: Magnesium 1.9 mg/dL (1.6-2.6)
--- NOTE | 2021-08-27 14:41 | P.F2F_ITS ---
Service Date Service Date: 08/27/21 Encounter Date of encounter: 08/27/21 Encounter: acute hypoxemic respiratory failure secondary to COVID, cardiomyopathy. cocaine use. Reasons for Services Reason for nursing home: medication management, medication treatment and teach disease management Reason for physical therapy: home safety and mobility, therapeutic exercises, restore joint function, gait/transfer training, assess need for DME, ADL training, energy conservation and other MD Overseeing Care: Brianna Gonzalez Homebound: Leaving the home is medically contraindicated at this time without the asist of a device and/or another person due th the listed conditions above and below. Homebound supporting statement: Patient is generally weak post hospitalization, has multiple comorbidities, need help to go to appointments. Certification: Based on the above findings, I certify that this patient is confined to the home and needs intermittent nursing home care, physical therapy and/or speech therapy, or continues to need occupational therapy. The patient is under my care, and I have initiated the establishment of the plan of care. The patient will be followed by a physician who will periodically review the plan of care.
--- NOTE | 2021-08-27 14:44 | MHC.CM.PN ---
Female 55 DX Covid+ She will discharge to home today via BLS. Homecare preference [facility] will provide homecare services. Her dtr Pina has agreed to provide extra support requied for discharge to home. PT recommended STR. The Pt refuses to go for STR. PT recommendations for more care and support, will be provided by pts dtr, IVONNE, Wilber. BLS has been booked for 6pm.
== END 2021-08-27 22:22 | disposition home or self-care (01) | DRG 137 ==
LOC: HO.ED 09:26 → HO.EDOVER 10:17 → HO.ICU 10:58 → HO.IMC 08-18 18:56
PROVIDERS: Internal Medicine; Internal Medicine Pulmonary Disease; Physician Assistant; Admitting Provider Internal Medicine Cardiovascular Disease; Emergency Provider Emergency Medicine; PCP Internal Medicine; Visit Provider Internal Medicine
DX: U07.1 COVID-19 (principal); J12.82 Pneumonia due to coronavirus disease 2019; I50.21 Acute systolic (congestive) heart failure; J80 Acute respiratory distress syndrome; I69.851 Hemiplegia and hemiparesis following other cerebrovascular disease affecting right dominant side; I51.81 Takotsubo syndrome; Z99.81 Dependence on supplemental oxygen; F41.1 Generalized anxiety disorder; D64.9 Anemia, unspecified; I25.10 Atherosclerotic heart disease of native coronary artery without angina pectoris; I25.2 Old myocardial infarction; F14.10 Cocaine abuse, uncomplicated; K21.9 Gastro-esophageal reflux disease without esophagitis; Z79.82 Long term (current) use of aspirin; Z87.891 Personal history of nicotine dependence; Z88.0 Allergy status to penicillin; Z79.899 Other long term (current) drug therapy
CPT/HCPCS: 36415; 36600; 71045; 71275; 80048; 80053; 80307; 82272; 82550; 82728; 82803; 83605; 83615; 83735; 83880; 84100; 84145; 84484; 85025; 85379; 85610; 85730; 86140; 87040; 87449; 87635; 87899; 93005; 93308; 94640; 94644; 94660; 97162; 99285; C1758; J0456; J1100; J1650; J1940; J2185; J2270; J3010; J3475; J3490; Q9967

== ENCOUNTER 2021-09-11 07:34 | Outpatient (REF) | payer OTHER, SELFPAY ==
[2021-09-11 11:16] LABS: Hematocrit 28.8 % (37.0-47.0); Hemoglobin 8.7 g/dl (12.0-16.0); Mean Corpuscular HGB Conc 30.2 g/dl (31.0-35.0); Mean Corpuscular Hemoglobin 28.5 pg (27.0-33.0); Mean Corpuscular Volume 94.4 fL (80.0-98.0); Mean Platelet Volume 9.7 fL (9.4-12.3); Platelet Count 477 X10*3/uL (160-400); Red Blood Count 3.05 X10*6/uL (4.20-5.50); Red Cell Distribution Width 17.6 % (11.0-16.0); White Blood Count 7.7 X10*3/uL (4.8-10.8)
== END 2021-09-11 07:35 | disposition home or self-care (01) ==
LOC: HO.LHD 07:34
PROVIDERS: Internal Medicine; Visit Provider Internal Medicine
DX: D64.9 Anemia, unspecified (principal)
CPT/HCPCS: 36415; 85027

== ENCOUNTER 2021-11-24 19:33 | Inpatient (IN) | payer OTHER, SELFPAY ==
[2021-11-24] VITALS (10 sets, daily range): BP systolic 82–190; BP diastolic 44–96; PULSE 71–141; RESP 17–20; TEMP 36.4–37.7; O2SAT 88–100; BMI 14.6
--- NOTE | 2021-11-24 | ECG_ITS ---
Test Reason : HYPOTENSION Blood Pressure : / mmHG Vent. Rate : 081 BPM Atrial Rate : 081 BPM P-R Int : 152 ms QRS Dur : 088 ms QT Int : 410 ms P-R-T Axes : 081 095 109 degrees QTc Int : 476 ms Normal sinus rhythm Rightward axis T inversion anterior leads, consider ischemia Abnormal ECG When compared with ECG of 24-NOV-2021 21:28, T inversion in inferior leads have normalized. Referred By: Ariel Shah Electronically Signed By:XIOMARA FAM
--- NOTE | 2021-11-24 | ECG_ITS ---
Test Reason : SEISURE Blood Pressure : / mmHG Vent. Rate : 086 BPM Atrial Rate : 086 BPM P-R Int : 150 ms QRS Dur : 088 ms QT Int : 394 ms P-R-T Axes : 072 084 111 degrees QTc Int : 471 ms Normal sinus rhythm ST & T wave abnormality, consider anterolateral ischemia Prolonged QT Abnormal ECG When compared with ECG of 24-NOV-2021 22:24, No significant change was found Referred By: Ariel Shah Electronically Signed By:XIOMARA FAM
--- NOTE | ~2021-11-24 | CT_ITS ---
EXAMINATION: CT HEAD WITHOUT CONTRAST CT ANGIOGRAM HEAD CT ANGIOGRAM NECK CLINICAL INFORMATION: Right-sided gaze. Rigid. Left-sided weakness. COMPARISON: Brain MRI from 04/01/2016. TECHNIQUE: Initial noncontrast medical registrar imaging of the head and neck was performed. Noncontrast head CT was also performed. Test bolus sequences followed by intravenous administration 70 mL of Omnipaque 350. Helical imaging was performed in the axial plane from the aortic arch to the skull vertex. Delayed postcontrast imaging of the head was also performed. The data was processed at the cardiac technologist's workstation for generation of MIP sequences. Angled MIPs and volume rendered reformatted images were also generated at an offline 3D workstation. Stenoses are assessed in accordance with NASCET criteria unless otherwise indicated. This CT examination was performed using dose optimization techniques as appropriate, variously including the following: *Automated exposure control. *Adjustment of mA and/or kV according to patient size (this includes techniques or standardized protocols for targeted exams where dose is matched to indication/reason for exam; i.e. extremities or head). *Use of iterative reconstruction technique. DLP: 2053 mGy-cm FINDINGS: CT Head: There is no evidence of acute intracranial hemorrhage or edematous territorial infarction. There are regions of encephalomalacia with volume loss throughout the left frontal lobe, including the left precentral gyrus. Extensive gliosis of the left frontal lobe anterolateral extent parietal lobe white matter. No additional loss of nowak-white matter differentiation mild ex vacuo dilatation of the left lateral ventricle. No evidence of obstructive hydrocephalus. No abnormal mass effect or midline shift. No extra-axial fluid collections. No pathologic intra-axial enhancement. No acute soft tissue or osseous abnormalities. Mild mucosal thickening of the paranasal sinuses. Moderate rightward nasal septal deviation. The mastoid air cells and middle ear cavities are clear. Mild degenerative arthropathy of the temporomandibular joints. Mild multifocal odontogenic enamel erosions and periapical lucencies associated with the maxillary left first premolar and mandibular left molar. CT Neck: The thyroid gland and remaining cervical soft tissues are within normal limits. Congenitally diminutive C6-C7 segments. Moderate degenerative arthropathy of the atlantodental articulation. Advanced degenerative disc disease at C5-C6. Moderate degenerative disc disease from C2-C5. CT Upper Chest: Moderate interlobular septal thickening. Centrilobular emphysema. The visualized lung apices and upper mediastinum are within normal limits. Neck CTA: Aortic Arch: Normal contour and caliber with mild calcific atherosclerotic disease. Classic 3 vessel branching pattern of the aortic arch. Great Vessel Origins: There is near complete occlusion of the origin of the left common carotid artery. No significant stenosis of the brachiocephalic or left subclavian artery origins. Right Common Carotid Artery: No focal stenosis or occlusion. Cervical Right Internal Carotid Artery: Calcific atherosclerotic disease of the carotid bulb and proximal internal carotid artery causing less than 50% stenosis. Irregular mixed lipid rich and calcific atherosclerotic disease causes 65% stenosis of a tortuous segment of the mid cervical segment of the right ICA at the level of C2. There is subtotal occlusion of the origin of the right external carotid artery. Left Common Carotid Artery: The left common carotid artery is essentially occluded from its origin. There is heavy calcification in the expected location of the lumen of the mid common carotid artery. Cervical Left Internal Carotid Artery: The cervical segment of the left ICA remains nonopacified. Cervical Right Vertebral Artery: Co-dominant. The vertebral artery is prominent throughout its course. No focal stenosis or occlusion. Cervical Left Vertebral Artery: Co-dominant. The vertebral artery is prominent throughout its course. No focal stenosis or occlusion. Brain CTA: Intracranial Internal Carotid Arteries: Calcific atherosclerotic disease of the right intracranial internal carotid artery without occlusion or flow-limiting stenosis. The petrous and cavernous segments of the left ICA remain nonopacified. Minimal reconstitution of the supraclinoid and paraophthalmic segments of the left ICA. Moderate left leptomeningeal collateralization along the distal carotid arteries. Right Anterior Cerebral Artery: Normal A1 segment. Normal opacification of the distal RIKY segments. Left Anterior Cerebral Artery: Normal A1 segment. Multifocal mild irregular narrowings of the distal RIKY segments. Anterior Communicating Artery: Normal. Right Middle Cerebral Artery: Moderate leptomeningeal collateralization along the M1 segment. Normal M1 segment of the MCA without focal stenosis or occlusion. Normal arborization of the distal segments. Left Middle Cerebral Artery: Moderate leftward nasal collateralization along the M1 segment. Normal M1 segment of the MCA without focal stenosis or occlusion. Normal arborization of the distal segments. Right Vertebral Artery: Normal V4 segment. Normal opacification of the proximal segments of the posterior inferior cerebellar artery. Left Vertebral Artery: Normal V4 segment. The posterior inferior cerebellar artery is not well opacified; however, there is no CT evidence of acute occlusion. Basilar Artery: Normal without focal stenosis or occlusion. Normal appearance of the proximal superior cerebellar arteries. Right Posterior Cerebral Artery: Normal P1 segment. Normal opacification of the distal CORNER CUTTER MACHINE OPERATOR segments. Left Posterior Cerebral Artery: Normal P1 segment. Normal opacification of the distal CORNER CUTTER MACHINE OPERATOR segments. Normal opacification of the superior sagittal, straight, transverse, and sigmoid sinuses. CT/CT head for stroke IMPRESSION: 1. No evidence of acute intracranial hemorrhage. Multifocal regions of chronic appearing encephalomalacia in the left frontal lobe. There is extensive white matter disease/gliosis throughout the left frontal and parietal lobes. 2. Chronic appearing occlusion of the of the left common carotid artery. Partial reconstitution of the distal left ICA. Prominent left submental collateralization along the distal ICAs and M1 segments of the MCAs. 3. Irregular atherosclerotic disease causes 65% stenosis of a tortuous segment of the mid cervical segment of the right ICA. 4. Mild to moderate interstitial edema. This critical result was discussed with Dr. Guzman at 20:25 on 11/24/2021 and it was ascertained that the content and urgency of the report was understood at the time of direct communication.
--- NOTE | ~2021-11-24 | MR_ITS ---
EXAMINATION: MR BRAIN WITHOUT CONTRAST CLINICAL INFORMATION: Question seizure versus CVA. COMPARISON: Head CTA 11/24/2021. Brain MRI 04/01/2016. TECHNIQUE: Multiplanar, multisequence imaging of the brain was performed without intravenous contrast. FINDINGS: There is no acute infarction, hemorrhage, or mass. Sequela of chronic infarction seen within the left frontal and parietal lobes with significant encephalomalacia and gliosis. Wallerian degeneration is seen along the left-sided corticospinal tract with decreased volume of the left-sided cerebral navdeep. Mild ex vacuo dilatation of the left lateral ventricle. Mild patchy foci of T2/FLAIR hyperintensity seen within the cerebral white matter, typical of mild chronic microangiopathy. The hippocampi appear normal and symmetric. The left internal carotid artery flow void is absent compatible with occlusion, as seen on the recent CTA. Major arterial flow voids are otherwise preserved. Extracranial structures are within normal limits. MR/MR head/brain wo con IMPRESSION: No acute intracranial abnormality. Chronic infarction within the left frontal and parietal lobes again demonstrated with associated left-sided Wallerian degeneration and ex vacuo dilatation the left lateral ventricle. No epileptogenic nidus identified.
--- NOTE | ~2021-11-24 | CT_ITS ---
EXAMINATION: CT HEAD WITHOUT CONTRAST CT ANGIOGRAM HEAD CT ANGIOGRAM NECK CLINICAL INFORMATION: Right-sided gaze. Rigid. Left-sided weakness. COMPARISON: Brain MRI from 04/01/2016. TECHNIQUE: Initial noncontrast customer success specialist imaging of the head and neck was performed. Noncontrast head CT was also performed. Test bolus sequences followed by intravenous administration 70 mL of Omnipaque 350. Helical imaging was performed in the axial plane from the aortic arch to the skull vertex. Delayed postcontrast imaging of the head was also performed. The data was processed at the nanotechnologist's workstation for generation of MIP sequences. Angled MIPs and volume rendered reformatted images were also generated at an offline 3D workstation. Stenoses are assessed in accordance with NASCET criteria unless otherwise indicated. This CT examination was performed using dose optimization techniques as appropriate, variously including the following: *Automated exposure control. *Adjustment of mA and/or kV according to patient size (this includes techniques or standardized protocols for targeted exams where dose is matched to indication/reason for exam; i.e. extremities or head). *Use of iterative reconstruction technique. DLP: 2053 mGy-cm FINDINGS: CT Head: There is no evidence of acute intracranial hemorrhage or edematous territorial infarction. There are regions of encephalomalacia with volume loss throughout the left frontal lobe, including the left precentral gyrus. Extensive gliosis of the left frontal lobe anterolateral extent parietal lobe white matter. No additional loss of nowak-white matter differentiation mild ex vacuo dilatation of the left lateral ventricle. No evidence of obstructive hydrocephalus. No abnormal mass effect or midline shift. No extra-axial fluid collections. No pathologic intra-axial enhancement. No acute soft tissue or osseous abnormalities. Mild mucosal thickening of the paranasal sinuses. Moderate rightward nasal septal deviation. The mastoid air cells and middle ear cavities are clear. Mild degenerative arthropathy of the temporomandibular joints. Mild multifocal odontogenic enamel erosions and periapical lucencies associated with the maxillary left first premolar and mandibular left molar. CT Neck: The thyroid gland and remaining cervical soft tissues are within normal limits. Congenitally diminutive C6-C7 segments. Moderate degenerative arthropathy of the atlantodental articulation. Advanced degenerative disc disease at C5-C6. Moderate degenerative disc disease from C2-C5. CT Upper Chest: Moderate interlobular septal thickening. Centrilobular emphysema. The visualized lung apices and upper mediastinum are within normal limits. Neck CTA: Aortic Arch: Normal contour and caliber with mild calcific atherosclerotic disease. Classic 3 vessel branching pattern of the aortic arch. Great Vessel Origins: There is near complete occlusion of the origin of the left common carotid artery. No significant stenosis of the brachiocephalic or left subclavian artery origins. Right Common Carotid Artery: No focal stenosis or occlusion. Cervical Right Internal Carotid Artery: Calcific atherosclerotic disease of the carotid bulb and proximal internal carotid artery causing less than 50% stenosis. Irregular mixed lipid rich and calcific atherosclerotic disease causes 65% stenosis of a tortuous segment of the mid cervical segment of the right ICA at the level of C2. There is subtotal occlusion of the origin of the right external carotid artery. Left Common Carotid Artery: The left common carotid artery is essentially occluded from its origin. There is heavy calcification in the expected location of the lumen of the mid common carotid artery. Cervical Left Internal Carotid Artery: The cervical segment of the left ICA remains nonopacified. Cervical Right Vertebral Artery: Co-dominant. The vertebral artery is prominent throughout its course. No focal stenosis or occlusion. Cervical Left Vertebral Artery: Co-dominant. The vertebral artery is prominent throughout its course. No focal stenosis or occlusion. Brain CTA: Intracranial Internal Carotid Arteries: Calcific atherosclerotic disease of the right intracranial internal carotid artery without occlusion or flow-limiting stenosis. The petrous and cavernous segments of the left ICA remain nonopacified. Minimal reconstitution of the supraclinoid and paraophthalmic segments of the left ICA. Moderate left leptomeningeal collateralization along the distal carotid arteries. Right Anterior Cerebral Artery: Normal A1 segment. Normal opacification of the distal RIKY segments. Left Anterior Cerebral Artery: Normal A1 segment. Multifocal mild irregular narrowings of the distal RIKY segments. Anterior Communicating Artery: Normal. Right Middle Cerebral Artery: Moderate leptomeningeal collateralization along the M1 segment. Normal M1 segment of the MCA without focal stenosis or occlusion. Normal arborization of the distal segments. Left Middle Cerebral Artery: Moderate leftward nasal collateralization along the M1 segment. Normal M1 segment of the MCA without focal stenosis or occlusion. Normal arborization of the distal segments. Right Vertebral Artery: Normal V4 segment. Normal opacification of the proximal segments of the posterior inferior cerebellar artery. Left Vertebral Artery: Normal V4 segment. The posterior inferior cerebellar artery is not well opacified; however, there is no CT evidence of acute occlusion. Basilar Artery: Normal without focal stenosis or occlusion. Normal appearance of the proximal superior cerebellar arteries. Right Posterior Cerebral Artery: Normal P1 segment. Normal opacification of the distal AQUATIC INSTRUCTOR segments. Left Posterior Cerebral Artery: Normal P1 segment. Normal opacification of the distal AQUATIC INSTRUCTOR segments. Normal opacification of the superior sagittal, straight, transverse, and sigmoid sinuses. CT/CT angio head neck stroke IMPRESSION: 1. No evidence of acute intracranial hemorrhage. Multifocal regions of chronic appearing encephalomalacia in the left frontal lobe. There is extensive white matter disease/gliosis throughout the left frontal and parietal lobes. 2. Chronic appearing occlusion of the of the left common carotid artery. Partial reconstitution of the distal left ICA. Prominent left submental collateralization along the distal ICAs and M1 segments of the MCAs. 3. Irregular atherosclerotic disease causes 65% stenosis of a tortuous segment of the mid cervical segment of the right ICA. 4. Mild to moderate interstitial edema. This critical result was discussed with Dr. Guzman at 20:25 on 11/24/2021 and it was ascertained that the content and urgency of the report was understood at the time of direct communication.
--- NOTE | 2021-11-24 19:34 | ED.SEIZURE ---
HPI - Seizure General Chief Complaint: Seizure Stated Complaint: DIFFICULTY BREATHING Time Seen by Provider: 11/24/21 20:21 Source: EMS Mode of arrival: EMS Limitations: no limitations History of Present Illness HPI Narrative: [place] [facility] [place] [facility] rigid with right sided gaze. Now she is nonverbal. Was not moving left size Related Data Home Medications Medication Instructions Recorded Confirmed baclofen 10 mg tablet 0.5 tab PO BID 11/24/21 11/24/21 beclomethasone dipropionate 80 1 inh INHALATION BID 11/24/21 11/24/21 mcg/actuation HFA breath activated aerosol (Qvar RediHaler) Previous Rx's Medication Instructions Recorded escitalopram oxalate 10 mg tablet 10 mg PO DAILY 90 Days #90 tab 06/29/21 (Lexapro) omeprazole 20 mg capsule,delayed 20 mg PO DAILY 90 Days #90 cap 07/28/21 release mirtazapine 30 mg tablet 30 mg PO BEDTIME 90 Days #90 tab 10/02/21 albuterol sulfate 90 mcg/actuation 2 puff PO Q6H PRN 30 Days #6.7 g 11/03/21 aerosol inhaler aspirin 81 mg chewable tablet 81 mg PO DAILY #30 tab 11/03/21 atorvastatin 40 mg tablet 40 mg PO BEDTIME #30 tab 11/03/21 famotidine 20 mg tablet 20 mg PO BID #60 tab 11/03/21 ipratropium 0.5 mg-albuterol 3 mg 1 ml INHALATION TID PRN 30 Days 11/03/21 (2.5 mg base)/3 mL nebulization #180 ml soln Allergies Allergy/AdvReac Type Severity Reaction Status Date / Time crab Allergy Unknown Hives Unverified 08/23/21 01:08 penicillin V Allergy Unknown hives Verified 06/10/21 15:36 Penicillins [PENICILLINS] Allergy Unknown hives Verified 06/10/21 15:36 SEASONAL ALLERGIES Allergy Mild RUNNY NOSE Uncoded 06/10/21 15:36 Review of Systems Review of Systems: Yes Unobtainable due to mental status PMFSH Past Medical History Medical History Acute CHF (congestive heart failure) Anxiety, generalized Apical myocardial infarction Arthrosis Asthma, moderate Asymptomatic carotid artery stenosis with infarction Chronic GERD Cocaine abuse COPD mixed type COVID-19 virus infection Difficulty sleeping Environmental allergies Exacerbation of asthma Hemiparesis affecting right side as late effect of cerebrovascular accident Hypercapnic respiratory failure, chronic Lipid disorder Oxygen dependent Respiratory failure Tobacco abuse Surgical History History of tonsillectomy and adenoidectomy Family History Family History Father Substance abuse Mother Brain cancer Maternal Grandfather History of heart attack Maternal Grandmother History of heart attack Paternal Grandfather No problems noted. Paternal Grandmother No problems noted. Brother No problems noted. Brother No problems noted. Son No problems noted. Daughter No problems noted. Other Mental health disorder Social History Social History Household Members: Children Housing: Apartment Do you presently have visiting nurse or other home services: Yes (pt stated [facility]) Patient Tobacco Use Status: Former Tobacco user Years Smoked: 35 years Advance Directives: No service: No Current occupational status: disabled Physical Exam Vital Signs: Vital Signs: Last Vital Signs Temp 99.8 F 11/24/21 20:23 Pulse 84 11/24/21 22:44 Resp 18 11/24/21 22:29 BP 108/53 L 11/24/21 22:44 Pulse Ox 98 11/24/21 22:44 Oxygen Flow Rate 5 11/24/21 20:07 BMI result Body Mass Index 14.6 Const: Other: thin frail. looking older than stated age Limitations: altered mental status HENMT: Head: Yes normal to inspection Ears: external ears normal General nose exam: Normal external nose present Mouth: Normal oral and palatal mucosa present and oropharynx normal Throat: Yes posterior oropharynx normal Eyes: General: appearance normal, both eyes and all related structures Neck: Other: supple Neck: Yes normal visual inspection Chest: Chest palpation & inspection: normal inspection of the chest Resp: Auscultation: clear to auscultation bilaterally Cardio: Jugular venous distension: no JVD Rate: regular rate Rhythm: regular rhythm Heart sounds: S1 normal heart sound present and S2 normal heart sound present GI: Inspection: Yes normal to inspection Palpation (GI): Soft to palpation, nontender and No hepatosplenomegaly present Auscultation: normal bowel sounds : General: Yes no CVA tenderness Back/Spine/Pelvis: Back: no CVA tenderness Skin: General skin exam: no rashes or lesions noted Neuro: Other: was not automatically moving left side but started to move to noxious stimuli Extrem: General: Yes normal to inspection Psych: Appearance: grossly normal NIH Stroke Scale Internal: Initial- Upon Arrival Level of Consciousness: Alert Best Gaze: Normal Facial Palsy: Normal Course Reevaluation(s) Reevaluation #1: patient is seizing, she has a right gaze and right sided tonic clonic. Left side is still moving. I have ordered ativan Time: 20:23 Reevaluation #2: initial NIH hard to assess, patient non verbal could follow commands but is nonverbal, she was moving both sides equally. My impression is that the patient had a seizure and not stroke. She now seized again, will load with luxra and discuss with neurology and admit Time: 20:39 Reevaluation #3: EKG went from sinus tachycardia, to sinus 80 with flipped ts inferior and laterally, now EKG shows slight inferior st elevation. Discussed with Dr. Munoz who wants patient started on heparin. Time: 22:48 MDM - Seizure Lab Data Result diagrams: 11/24/21 19:41 11/24/21 19:41 Labs: Lab Results 11/24/21 11/24/21 11/24/21 Range/Units 19:38 19:39 19:41 WBC 10.1 (4.8-10.8) X10*3/uL RBC 5.21 D (4.20-5.50) X10*6/uL Hgb 13.7 D (12.0-16.0) g/dl Hct 44.8 D (37.0-47.0) % MCV 86.0 (80.0-98.0) fL MCH 26.3 L (27.0-33.0) pg MCHC 30.6 L (31.0-35.0) g/dl RDW 14.5 (11.0-16.0) % Plt Count 364 (160-400) X10*3/uL MPV 10.0 (9.4-12.3) fL Immature Gran % (Auto) 0.1 (0.0-0.4) % Neut % (Auto) 38.9 L (45-73) % Lymph % (Auto) 47.5 H (20-40) % Churchill % (Auto) 12.5 H (2-11) % Eos % (Auto) 0.7 (0-4) % Baso % (Auto) 0.3 (0-2) % Lymph # (Auto) 4.8 (1.2-4.9) X10*3/uL Churchill # (Auto) 1.3 H (0.1-1.2) X10*3/uL Eos # (Auto) 0.1 (0.0-0.4) X10*3/uL Baso # (Auto) 0.0 (0.0-0.2) X10*3/uL Abs Immat Gran (auto) 0.01 (0.00-0.03) X10*3/uL Absolute Neuts (auto) 3.9 (2.0-8.3) x10*3/uL Absolute Nucleated RBC 0.000 (0.0-0.012) X10*3/uL Nucleated RBC % (auto) 0.0 (0.0-0.2) /100WBC PT (9.9-13.0) SEC Whole Blood PT 13.6 H (11.1-13.5) sec INR (0.9-1.1) Whole Blood INR 1.1 (0.9-1.1) APTT (24.1-38.0) SEC Sodium (135-145) mmol/L Potassium (3.3-5.1) mmol/L Chloride (96-108) mmol/L Carbon Dioxide (22-29) mmol/L Anion Gap (12-20) BUN (9-16) mg/dL Creatinine (0.5-1.4) mg/dL Estim Creat Clear Calc Estimated GFR POC Glucose 162 H (60-115) mg/dL Random Glucose (60-115) mg/dL Calcium (8.4-10.2) mg/dL Total Creatine Kinase (26-140) U/L Troponin I High Sens (<3.5-17.0) ng/L B-Natriuretic Peptide (<100) pg/mL 11/24/21 11/24/21 11/24/21 Range/Units 19:41 19:41 19:41 WBC (4.8-10.8) X10*3/uL RBC (4.20-5.50) X10*6/uL Hgb (12.0-16.0) g/dl Hct (37.0-47.0) % MCV (80.0-98.0) fL MCH (27.0-33.0) pg MCHC (31.0-35.0) g/dl RDW (11.0-16.0) % Plt Count (160-400) X10*3/uL MPV (9.4-12.3) fL Immature Gran % (Auto) (0.0-0.4) % Neut % (Auto) (45-73) % Lymph % (Auto) (20-40) % Churchill % (Auto) (2-11) % Eos % (Auto) (0-4) % Baso % (Auto) (0-2) % Lymph # (Auto) (1.2-4.9) X10*3/uL Churchill # (Auto) (0.1-1.2) X10*3/uL Eos # (Auto) (0.0-0.4) X10*3/uL Baso # (Auto) (0.0-0.2) X10*3/uL Abs Immat Gran (auto) (0.00-0.03) X10*3/uL Absolute Neuts (auto) (2.0-8.3) x10*3/uL Absolute Nucleated RBC (0.0-0.012) X10*3/uL Nucleated RBC % (auto) (0.0-0.2) /100WBC PT 13.6 H (9.9-13.0) SEC Whole Blood PT (11.1-13.5) sec INR 1.2 H (0.9-1.1) Whole Blood INR (0.9-1.1) APTT 42.4 H (24.1-38.0) SEC Sodium 137 (135-145) mmol/L Potassium 4.4 (3.3-5.1) mmol/L Chloride 99 (96-108) mmol/L Carbon Dioxide 24 (22-29) mmol/L Anion Gap 18 (12-20) BUN 5 L D (9-16) mg/dL Creatinine 0.91 (0.5-1.4) mg/dL Estim Creat Clear Calc TNP Estimated GFR > 60 POC Glucose (60-115) mg/dL Random Glucose 144 H (60-115) mg/dL Calcium 10.2 D (8.4-10.2) mg/dL Total Creatine Kinase 115 D (26-140) U/L Troponin I High Sens 6.1 D (<3.5-17.0) ng/L B-Natriuretic Peptide 140 H (<100) pg/mL Imaging Data CT scan - head: Radiologist's impression: Left carotid is calcified, left frontal with chronic infarcts, no hemorrhage, carotid occlusion is chronic and calcified. ECG Data Attestation: I personally reviewed and interpreted this ECG as follows: Interpretation: sinus tachycardia rate 150, no st or twave changes Critical Care Time Critical Care Time Attestation: I spent 40 minutes of critical care, with interventions, assessments, speaking to patient, consultants, and family. Discharge Plan Discharge Clinical Impression: Focal seizure Patient Disposition: Admitted As Inpatient
--- NOTE | 2021-11-24 19:36 | ECG_ITS ---
Test Reason : WEAKNESS Blood Pressure : / mmHG Vent. Rate : 149 BPM Atrial Rate : 149 BPM P-R Int : 128 ms QRS Dur : 090 ms QT Int : 330 ms P-R-T Axes : 083 088 093 degrees QTc Int : 519 ms Sinus tachycardia Minimal voltage criteria for LVH, may be normal variant ( Samuel product ) Septal infarct (cited on or before 16-AUG-2021) Lateral infarct (cited on or before 16-AUG-2021) Abnormal ECG When compared with ECG of 16-AUG-2021 06:27, ST now depressed in Lateral leads T wave inversion now evident in Lateral leads Referred By: Raymon Guzman Electronically Signed By:XIOMARA FAM
[2021-11-24 19:49] LABS: Prothrombin Time Whole Bld POC 13.6 sec (11.1-13.5); ~PT, ~INR - Anti Coag Clinic 1.1 (0.9-1.1)
[2021-11-24 19:49] LABS: Glucose, Whole Blood 162 mg/dL (60-115)
[2021-11-24 19:51] LABS: MANUAL DIFF FLAG NO
[2021-11-24 19:53] LABS: Basophils Percent Auto 0.3 % (0-2); Eosinophils Absolute Auto 0.1 X10*3/uL (0.0-0.4); Eosinophils Percent Auto 0.7 % (0-4); Hematocrit 44.8 % (37.0-47.0); Hemoglobin 13.7 g/dl (12.0-16.0); Imm Gran Abs Auto 0.01 X10*3/uL (0.00-0.03); Imm Gran Pct Auto 0.1 % (0.0-0.4); Lymphocytes Absolute Auto 4.8 X10*3/uL (1.2-4.9); Lymphocytes Percent Auto 47.5 % (20-40); Mean Corpuscular HGB Conc 30.6 g/dl (31.0-35.0); Mean Corpuscular Hemoglobin 26.3 pg (27.0-33.0); Monocytes Absolute Auto 1.3 X10*3/uL (0.1-1.2); Monocytes Percent Auto 12.5 % (2-11); Neutrophils Absolute Auto 3.9 x10*3/uL (2.0-8.3); Neutrophils Percent Auto 38.9 % (45-73); Platelet Count 364 X10*3/uL (160-400); Red Blood Count 5.21 X10*6/uL (4.20-5.50); Red Cell Distribution Width 14.5 % (11.0-16.0); White Blood Count 10.1 X10*3/uL (4.8-10.8)
[2021-11-24] MEDS: iohexoL 350 MG/ML 100 ML INFUS..BTL IV (19:58)
[2021-11-24 20:01] LABS: INTERNATIONAL NORM RATIO 1.2 (0.9-1.1); Prothrombin Time 13.6 SEC (9.9-13.0)
[2021-11-24 20:04] LABS: Partial Thromboplastin Time 42.4 SEC (24.1-38.0)
[2021-11-24 20:07] LABS: Anion Gap 18 (12-20); Blood Urea Nitrogen 5 mg/dL (9-16); Calcium 10.2 mg/dL (8.4-10.2); Carbon Dioxide 24 mmol/L (22-29); Chloride 99 mmol/L (96-108); Estimated Glomerular Filt Rate > 60; Glucose Random 144 mg/dL (60-115); Potassium 4.4 mmol/L (3.3-5.1); Sodium 137 mmol/L (135-145)
[2021-11-24 20:08] LABS: Stroke Lab Use COMPLETE
[2021-11-24 20:11] LABS: Troponin-I High Sensitivity 6.1 ng/L (<3.5-17.0)
--- NOTE | 2021-11-24 20:15 | PC.NURSE ---
Pt 62% O@ on room air, after applying 5 liters O2 NC pt O2 sat now 90%. MD Guzman aware. Pt heart rate tachycardic at 145, MD Guzman aware.
[2021-11-24] MEDS: LORazepam 2 MG/ML VIAL IVPUSH (20:26)
[2021-11-24] MEDS: levETIRAcetam in NaCl (iso-os) 1,000 MG/100 ML PIGGYBACK 400 MG IV (20:47)
--- NOTE | 2021-11-24 21:06 | P.HPHOSP_ITS ---
History of Present Illness Date of Service: 11/24/21 Chief Complaint: Seizure 56-year-old female with a past medical history of generalized anxiety disorder, depression, asthma/ COPD, history of TIA, CVA with residual right-sided weakness, substance abuse, hyperlipidemia, tobacco dependence , history COVID-19 infection/ARDS requiring ICU admission in August of 2021, takotsubo cardiomyopathy, chronic respiratory failure on 2 L of home oxygen, anemia presented to the hospital today with a chief complaint of shortness of breath. reportedly - EMS went to pick the patient up the chief complaint of shortness of breath. EN route to the hospital patient started to have right-sided gaze, appeared rigid, not moving on the left side; after she came to the hospital patient gaze was normal, moving the left side normal but patient noted to be not talking -nonverbal; followed by patient was sent for CT head and CT angio head and neck given concerns for stroke. After she came out of the CT scan patient again had the episode of right-sided gaze followed by twitching on the right side and moving the left side okay; concern for seizure; patient was given Ativan. ER team discussed with Dr. Gonzalez from Neurology who knows the patient well; suggested to Keppra load the patient and to admit to the hospital for further workup including MRI in the morning. Per ER physician patient was initially following simple commands but was not talking. benign; EKG was EKG was nonischemic; labs were benign; admitted to the hospital for further management At the time of my interview patient not answering my questions. Following simple commands. I called pt's Daughter-Pina-> Who mentions that patient was doing fine until this evening when she complained of having headache followed by she became stiff, minimally verbal and had a fall; at the same time she also complained of shortness of breath. Subsequently EMS was called in. And sent to the hospital for further evaluation. Daughter denies patient having any signs of infection like fever chills cough or urinary complaints. Mentions that at baseline patient able to ambulate, verbal, and no difficulty swallowing. And has been complaint with her home medications. Mentions that during the episode patient was not having her oxygen on. Denies pt having any blood in stool. Review of all other systems is negative except mentioned above [facility] Medical History Acute CHF (congestive heart failure) Anxiety, generalized Apical myocardial infarction Arthrosis Asthma, moderate Asymptomatic carotid artery stenosis with infarction Chronic GERD Cocaine abuse COPD mixed type COVID-19 virus infection Difficulty sleeping Environmental allergies Exacerbation of asthma Hemiparesis affecting right side as late effect of cerebrovascular accident Hypercapnic respiratory failure, chronic Lipid disorder Oxygen dependent Respiratory failure Tobacco abuse Family History Father Substance abuse Mother Brain cancer Maternal Grandfather History of heart attack Maternal Grandmother History of heart attack Paternal Grandfather No problems noted. Paternal Grandmother No problems noted. Brother No problems noted. Brother No problems noted. Son No problems noted. Daughter No problems noted. Other Mental health disorder Surgical History History of tonsillectomy and adenoidectomy Social History Household Members: Children Housing: Apartment Do you presently have visiting nurse or other home services: Yes (pt stated vna) Patient Tobacco Use Status: Former Tobacco user Years Smoked: 35 years Advance Directives: No service: No Current occupational status: disabled Meds Allergies Allergy/AdvReac Type Severity Reaction Status Date / Time crab Allergy Unknown Hives Unverified 08/23/21 01:08 penicillin V Allergy Unknown hives Verified 06/10/21 15:36 Penicillins [PENICILLINS] Allergy Unknown hives Verified 06/10/21 15:36 SEASONAL ALLERGIES Allergy Mild RUNNY NOSE Uncoded 06/10/21 15:36 Active Medications: Current Medications Acetaminophen (Acetaminophen 325 Mg Tablet) 650 mg PO Q6H PRN PRN Reason: Pain, Mild (Pain Scale 1-3) Dextrose/Sodium Chloride (D51/2ns) 1,000 mls @ 50 mls/hr IVCONT .Q20H LADONNA Melatonin (Melatonin 3 Mg Tablet) 6 mg PO BEDTIME PRN PRN Reason: Insomnia Pharmacy Consult (Consult Rx Perform Med Rec) 1 each MISCELLANE ONCE PRN PRN Reason: Consult order Pharmacy Consult (Consult Rx Perform Med Rec) 1 each MISCELLANE ONCE STA Stop: 11/24/21 21:04 Senna (Sennosides 8.6 Mg Tablet) 17.2 mg PO BEDTIME PRN PRN Reason: Constipation Sodium Chloride (0.9 % Sodium Chloride Flush 3 Ml Syringe) 3 ml IVFLUSH QSHIFT LADONNA Home Medications Medication Instructions Recorded Confirmed Last Taken Type baclofen 10 mg tablet 0.5 tab PO BID 11/24/21 11/24/21 11/23/21 History beclomethasone dipropionate 80 1 inh INHALATION BID 11/24/21 11/24/21 Unknown History mcg/actuation HFA breath activated aerosol (Qvar RediHaler) Physical Exam Vital Signs and Narrative: Vital Signs: Last Vital Signs Temp 99.8 F 11/24/21 20:23 Pulse 71 11/24/21 20:58 Resp 17 11/24/21 20:23 BP 97/59 L 11/24/21 20:58 Pulse Ox 100 11/24/21 20:58 Oxygen Flow Rate 5 11/24/21 20:07 BMI result Body Mass Index 14.6 Gen: Appears be in no acute distress. Not talking. HEENT: NCAT, Moist mucosa. Pulmonary: Vesicular breath sounds, fair air entry CVS: Normal S1-S2 Abdomen: BS+, Soft, Nontender Extremities: Warm well perfused Neuro: Drowsy secondary to Ativan received in ER. Limited exam Results Labs CBC and Chem 7: 11/24/21 19:41 11/24/21 19:41 Labs: Laboratory Results - last 24 hr 11/24/21 11/24/21 11/24/21 19:38 19:39 19:41 MCV 86.0 MCH 26.3 L MCHC 30.6 L RDW 14.5 Plt Count 364 MPV 10.0 Immature Gran % (Auto) 0.1 Neut % (Auto) 38.9 L Lymph % (Auto) 47.5 H Alexander % (Auto) 12.5 H Eos % (Auto) 0.7 Baso % (Auto) 0.3 Lymph # (Auto) 4.8 Alexander # (Auto) 1.3 H Eos # (Auto) 0.1 Baso # (Auto) 0.0 Abs Immat Gran (auto) 0.01 Absolute Neuts (auto) 3.9 Absolute Nucleated RBC 0.000 Nucleated RBC % (auto) 0.0 PT Whole Blood PT 13.6 H INR Whole Blood INR 1.1 APTT Anion Gap Estim Creat Clear Calc Estimated GFR POC Glucose 162 H Random Glucose Calcium Total Creatine Kinase 11/24/21 11/24/21 19:41 19:41 MCV MCH MCHC RDW Plt Count MPV Immature Gran % (Auto) Neut % (Auto) Lymph % (Auto) Alexander % (Auto) Eos % (Auto) Baso % (Auto) Lymph # (Auto) Alexander # (Auto) Eos # (Auto) Baso # (Auto) Abs Immat Gran (auto) Absolute Neuts (auto) Absolute Nucleated RBC Nucleated RBC % (auto) PT 13.6 H Whole Blood PT INR 1.2 H Whole Blood INR APTT 42.4 H Anion Gap 18 Estim Creat Clear Calc TNP Estimated GFR > 60 POC Glucose Random Glucose 144 H Calcium 10.2 D Total Creatine Kinase 115 D Assessment and Plan (1) Focal seizure: Status: Acute Plan 56-year-old female with a past medical history of generalized anxiety disorder, depression, asthma/ COPD, history of TIA, CVA with residual right-sided weakness, substance abuse, hyperlipidemia, tobacco dependence , history COVID-19 infection/ARDS requiring ICU admission in August of 2021, takotsubo cardiomyopathy, chronic respiratory failure on 2 L of home oxygen, anemia presented to the hospital today with a chief complaint of shortness of breath/Noted to have seizure-like episode in the ER. Admitted for further management. ?CVA versus seizure: Patient had right-sided gaze, whole-body stiffening initially; the following episode patient had right-sided gaze and twitching of the right upper and lower extremity; CT head showed no acute intracranial process but noted to have chronic encephalomalacia of the left frontal lobe, extensive white matter disease/ gliosis of the frontal and parietal lobes. CT angio head and neck showed chronic appearing occlusion of the left common carotid artery, 65% stenosis of the Dr. Segment of the mid cervical segment of the right ICA. Neurology was notified -recommended to start the patient on Keppra loading and admitted to the hospital for further management. Continue Keppra 1000 mg b.i.d. Seizure precautions, aspiration precautions, fall precautions. NPO Gentle IV fluids Speech and swallow/ PT/ OT. Echo with bubble study Telemetry Cycle cardiac enzymes Neuro checks EEG Shortness of breath: Likely in the setting of not having her oxygen on. Patient currently breathing comfortably on supplemental oxygen. At baseline patient on 2 L of home oxygen at home secondary to chronic resp iratory failure in the setting of COPD /asthma. Patient also had recent history of ARDS from COVID 19 infection in August of 2021. Supportive care Olegario p.r.n. NSTEMI: patient's initial EKG was tachycardic; the follow-up EKG showed flipped Ts in lateral leads as well as inferior leads. The 3rd EKG showed T-wave inversions in lateral leads; T-waves normalized in inferior leads with concerns for question STEMI in the inferior leads. EKGs for transfer to Dr. Munoz who reviewed and mention less likely STEMI. And recommended heparin drip. Mentioned admission to [facility]. Patient troponin 6 followed by 194. monitor on telemetry ( ER team notified Dr. Gonzalez from Neurology, who mentioned it is okay to start heparin drip) hypotension: Patient systolic blood pressure dropped to 80s briefly which improved to low 100s without any intervention. Given gentle IV fluids. history of anxiety /depression: Continue home mirtazapine, citalopram History of CVA: Reported residual mild right-sided weakness. Patient on baclofen b.i.d.. Continue home aspirin statin DVT prophylaxis: SCD boots Code status: Full code I spoke to patient's daughter Pina and explained about the above plan of care. Quality Stroke Does the patient have a stroke diagnosis?: No VTE Prior VTE?: No VTE Risk Level:: Medical - moderate - high VTE Device Contraindication: N/A - Device Ordered VTE Drug Contraindication: Treatment Not Indicated
--- NOTE | 2021-11-24 21:06 | ECG_ITS ---
Test Reason : TACHYCARDIA Blood Pressure : / mmHG Vent. Rate : 097 BPM Atrial Rate : 097 BPM P-R Int : 140 ms QRS Dur : 086 ms QT Int : 388 ms P-R-T Axes : -17 -34 -42 degrees QTc Int : 492 ms Normal sinus rhythm Left axis deviation Minimal voltage criteria for LVH, may be normal variant ( Samuel product ) Inferior infarct , age undetermined Anterior infarct (cited on or before 16-AUG-2021) T wave abnormality, consider lateral ischemia Abnormal ECG When compared with ECG of 24-NOV-2021 19:59, Changes noted Referred By: Raymon Guzman Electronically Signed By:XIOMARA FAM
--- NOTE | 2021-11-24 21:30 | PHA.MEDREC ---
Pharmacy Consult ? Medication Reconciliation Pharmacy has completed the medication reconciliation. Medication history obtained from pt's daughter Pina
[2021-11-24 21:37] LABS: B Type Natriuretic Peptide 140 pg/mL (<100)
[2021-11-24] MEDS: Dextrose 5 % and 0.45 % NaCl 1,000 ML 50 ML IVCONT (21:39)
--- NOTE | 2021-11-24 21:43 | PC.NURSE ---
Pt remains minimally responsive. IV remains intact. Pt trialed off non-rebreather and on 5 liters O2 nasal canula at this time, O2 remains at 100%. Pt heart rate in the 80s. Will continue to monitor.
[2021-11-24 21:45] LABS: COVID-19 Test Negative (Negative); IDNOW Serial# 55D5AD1C
[2021-11-24 22:15] LABS: Troponin-I High Sensitivity 191.3 ng/L (<3.5-17.0)
--- NOTE | 2021-11-24 22:18 | PC.NURSE ---
Pt second trop 191.3, MD Simons made awre. BP running low 85/45, MD Simons made aware.
[2021-11-24] MEDS: 0.9 % Sodium Chloride 500 ML IV (22:30)
[2021-11-24] MEDS: Heparin Sodium,Porcine 5,000 UNIT/ML VIAL 3100 UNIT IVPUSH (22:57)
[2021-11-24] MEDS: 0.9 % Sodium Chloride Flush 3 ML SYRINGE IVFLUSH (23:02)
[2021-11-24] MEDS: Heparin Sodium,Porcine/1/2NS 25,000 UNIT/250 ML IV.SOLN 5.42 UNIT IVCONT (23:30)
[2021-11-25] VITALS (8 sets, daily range): BP systolic 105–141; BP diastolic 39–79; PULSE 70–89; RESP 16–20; TEMP 36.4–37; O2SAT 94–99; BMI 14.6
--- NOTE | 2021-11-25 03:09 | PC.NURSE ---
LS has expiratory wheezing, dr.devineni jensen
--- NOTE | 2021-11-25 03:46 | PC.NURSE ---
resp paged for elenab at [id number]
--- NOTE | 2021-11-25 04:09 | PC.NURSE ---
0350 pt states nausea, dr. emerson paged for irene
[2021-11-25 05:44] LABS: MANUAL DIFF FLAG NO
[2021-11-25 05:47] LABS: Basophils Percent Auto 0.3 % (0-2); Eosinophils Percent Auto 0.2 % (0-4); Hematocrit 36.9 % (37.0-47.0); Hemoglobin 11.1 g/dl (12.0-16.0); Imm Gran Abs Auto 0.02 X10*3/uL (0.00-0.03); Imm Gran Pct Auto 0.2 % (0.0-0.4); Lymphocytes Absolute Auto 3.4 X10*3/uL (1.2-4.9); Lymphocytes Percent Auto 36.7 % (20-40); Mean Corpuscular HGB Conc 30.1 g/dl (31.0-35.0); Mean Corpuscular Hemoglobin 25.9 pg (27.0-33.0); Mean Platelet Volume 9.9 fL (9.4-12.3); Monocytes Absolute Auto 0.9 X10*3/uL (0.1-1.2); Monocytes Percent Auto 10.1 % (2-11); Neutrophils Absolute Auto 4.9 x10*3/uL (2.0-8.3); Neutrophils Percent Auto 52.5 % (45-73); Platelet Count 263 X10*3/uL (160-400); Red Blood Count 4.29 X10*6/uL (4.20-5.50); Red Cell Distribution Width 14.5 % (11.0-16.0); White Blood Count 9.3 X10*3/uL (4.8-10.8)
[2021-11-25 05:57] LABS: PTT Heparin Drip 99.8 SEC (53-77.9)
[2021-11-25 06:07] LABS: Anion Gap 13 (12-20); Blood Urea Nitrogen 5 mg/dL (9-16); Calcium 8.8 mg/dL (8.4-10.2); Carbon Dioxide 25 mmol/L (22-29); Chloride 102 mmol/L (96-108); Cholesterol 150 mg/dL; Creatinine Clr Calc Pharmacy 53.4; Estimated Glomerular Filt Rate > 60; Glucose Random 92 mg/dL (60-115); HDL Cholesterol 56 mg/dL; LDL Cholesterol Calculated 80 mg/dl; Potassium 3.9 mmol/L (3.3-5.1); Sodium 136 mmol/L (135-145); Triglycerides 70 mg/dL
--- NOTE | 2021-11-25 06:22 | PC.NURSE ---
pt failed bedside swallow, pt is still very drowsy and only alert to self. after a sip of water patient coughed within a minute or so. Should reassess swallow once patient is more awake, and if she fails consult speech and alert MD.
[2021-11-25 07:18] LABS: Glucose, Whole Blood 92 mg/dL (60-115)
--- NOTE | 2021-11-25 07:46 | PC.NURSE ---
Pt arousable to voice and able to follow commands to reposition in bed. states right sided weaknss is baseline. heparin infusing. pt c/o slight headache. denies CP, is NSR on monitor. falls asleep w/o interaction. skin pwd.
[2021-11-25] MEDS: levETIRAcetam in NaCl (iso-os) 1,000 MG/100 ML PIGGYBACK 400 MG IV (08:02)
[2021-11-25] MEDS: Baclofen 10 MG TABLET 5 MG PO ×2 (08:05→20:27)
[2021-11-25] MEDS: Aspirin 81 MG TAB.CHEW PO (08:07)
[2021-11-25] MEDS: Escitalopram Oxalate 10 MG TABLET PO (08:07)
--- NOTE | 2021-11-25 08:08 | PC.NURSE ---
increasingly alert. passed bedside swallow for this rn and took po meds w/o diff.
--- NOTE | 2021-11-25 09:50 | PC.NURSE ---
PT/OT at bedside.
--- NOTE | 2021-11-25 09:56 | HO.PM.IMPN ---
Subjective Subjective Date of Service: 11/25/21 Interval History: f/u on elevated trops, ? seizure.. much better today, no seizure, no chest pain and hemodynamically stable. Review of Systems no chest pain, no sizure Physical Exam Vital Signs: Vital Signs: Last Vital Signs Temp 97.8 F 11/25/21 08:11 Pulse 84 11/25/21 08:11 Resp 18 11/25/21 08:11 BP 117/59 L 11/25/21 08:11 Pulse Ox 98 11/25/21 08:11 Oxygen Flow Rate 5 11/24/21 20:07 BMI result Body Mass Index 14.6 Const: Other: General: AO X 3, no acute distress Resp: CTA bilateral CVS: S1,S2,RRR GI: +BS, NT, no distention Skin: No rash Neuro: motor grossly intact Psych: appropriate affect Objective Data Active Medications Acetaminophen (Acetaminophen 325 Mg Tablet) 650 mg PO Q6H PRN PRN Reason: Pain, Mild (Pain Scale 1-3) Albuterol/Ipratropium (Albuterol/Iprat 2.5/0.5mg 3 Ml Ampul.Neb) 3 ml INHALE RQ4H PRN PRN Reason: Shortness of Breath/Wheezing Aspirin (Aspirin 81 Mg Tab.Chew) 81 mg PO DAILY [facility] Last Admin: 11/25/21 08:07 Dose: 81 mg Documented by: RICHA Atorvastatin Calcium (Atorvastatin Calcium 40 Mg Tablet) 40 mg PO BEDTIME [facility] Baclofen (Baclofen 10 Mg Tablet) 5 mg PO BID [facility] Last Admin: 11/25/21 08:05 Dose: 5 mg Documented by: RICHA Escitalopram Oxalate (Escitalopram Oxalate 10 Mg Tablet) 10 mg PO DAILY [facility] Last Admin: 11/25/21 08:07 Dose: 10 mg Documented by: RICHA Heparin Sodium (Porcine) (Heparin Sodium,Porcine 5,000 Unit/Ml Vial) 1,500 unit 40 unit/kg (1500 unit) IVPUSH PROTOCOL BOLUS PRN; Protocol PRN Reason: 40 unit/kg - Heparin Protocol Heparin Sodium (Porcine) (Heparin Sodium,Porcine 5,000 Unit/Ml Vial) 3,100 unit 80 unit/kg (3100 unit) IVPUSH PROTOCOL BOLUS PRN; Protocol PRN Reason: 80 unit/kg - Heparin Protocol Dextrose/Sodium Chloride (D51/2ns) 1,000 mls @ 50 mls/hr IVCONT .Q20H [facility] Last Infusion: 11/25/21 07:00 Dose: 0 mls/hr Documented by: RICHA Levetiracetam (Keppra) 1,000 mg in 100 mls @ 400 mls/hr IV Q12H [facility] Last Infusion: 11/25/21 08:20 Dose: 0 mls/hr Documented by: RICHA Heparin Sodium/Sodium Chloride () 25,000 unit in 250 mls @ 0 mls/hr IVCONT .Q0M [facility]; Protocol Last Titration: 11/25/21 07:07 Dose: 11 units/kg/hr, 4.26 mls/hr Documented by: JOSIAS Cosigned by: RICHA Melatonin (Melatonin 3 Mg Tablet) 6 mg PO BEDTIME PRN PRN Reason: Insomnia Mirtazapine (Mirtazapine 30 Mg Tablet) 30 mg PO BEDTIME [facility] Omeprazole (Omeprazole 20 Mg Capsule.Dr) 20 mg PO DAILY@0630 [facility] Last Admin: 11/25/21 06:22 Dose: Not Given Documented by: JOSIAS Non-Admin Reason: Patient Condition Contraindication Pharmacy Consult (Consult Rx Perform Med Rec) 1 each MISCELLANE ONCE PRN PRN Reason: Consult order Senna (Sennosides 8.6 Mg Tablet) 17.2 mg PO BEDTIME PRN PRN Reason: Constipation Sodium Chloride (0.9 % Sodium Chloride Flush 3 Ml Syringe) 3 ml IVFLUSH QSHIFT [facility] Last Admin: 11/25/21 08:02 Dose: Not Given Documented by: RICHA Non-Admin Reason: Med Not Available Labs CBC & Chem 7: 11/25/21 05:39 11/25/21 05:39 Labs: Laboratory Results - last 24 hr 11/24/21 11/24/21 11/24/21 19:38 19:39 19:41 MCV 86.0 MCH 26.3 L MCHC 30.6 L RDW 14.5 Plt Count 364 MPV 10.0 Immature Gran % (Auto) 0.1 Neut % (Auto) 38.9 L Lymph % (Auto) 47.5 H [place] % (Auto) 12.5 H Eos % (Auto) 0.7 Baso % (Auto) 0.3 Lymph # (Auto) 4.8 [place] # (Auto) 1.3 H Eos # (Auto) 0.1 Baso # (Auto) 0.0 Abs Immat Gran (auto) 0.01 Absolute Neuts (auto) 3.9 Absolute Nucleated RBC 0.000 Nucleated RBC % (auto) 0.0 PT Whole Blood PT 13.6 H INR Whole Blood INR 1.1 APTT aPTT Heparin Protocol Anion Gap Estim Creat Clear Calc Estimated GFR POC Glucose 162 H Random Glucose Calcium Total Creatine Kinase B-Natriuretic Peptide Triglycerides Cholesterol LDL Cholesterol, Calc HDL Cholesterol COVID-19 ([facility]) COVID-19 Clin Com 11/24/21 11/24/21 11/24/21 19:41 19:41 19:41 MCV MCH MCHC RDW Plt Count MPV Immature Gran % (Auto) Neut % (Auto) Lymph % (Auto) [place] % (Auto) Eos % (Auto) Baso % (Auto) Lymph # (Auto) [place] # (Auto) Eos # (Auto) Baso # (Auto) Abs Immat Gran (auto) Absolute Neuts (auto) Absolute Nucleated RBC Nucleated RBC % (auto) PT 13.6 H Whole Blood PT INR 1.2 H Whole Blood INR APTT 42.4 H aPTT Heparin Protocol Anion Gap 18 Estim Creat Clear Calc TNP Estimated GFR > 60 POC Glucose Random Glucose 144 H Calcium 10.2 D Total Creatine Kinase 115 D B-Natriuretic Peptide 140 H Triglycerides Cholesterol LDL Cholesterol, Calc HDL Cholesterol COVID-19 ([facility]) COVID-19 Clin Com 11/24/21 11/25/21 11/25/21 21:23 05:39 05:39 MCV 86.0 MCH 25.9 L MCHC 30.1 L RDW 14.5 Plt Count 263 D MPV 9.9 Immature Gran % (Auto) 0.2 Neut % (Auto) 52.5 Lymph % (Auto) 36.7 [place] % (Auto) 10.1 Eos % (Auto) 0.2 Baso % (Auto) 0.3 Lymph # (Auto) 3.4 [place] # (Auto) 0.9 Eos # (Auto) 0.0 Baso # (Auto) 0.0 Abs Immat Gran (auto) 0.02 Absolute Neuts (auto) 4.9 Absolute Nucleated RBC 0.000 Nucleated RBC % (auto) 0.0 PT Whole Blood PT INR Whole Blood INR APTT aPTT Heparin Protocol 99.8 H Anion Gap Estim Creat Clear Calc Estimated GFR POC Glucose Random Glucose Calcium Total Creatine Kinase B-Natriuretic Peptide Triglycerides Cholesterol LDL Cholesterol, Calc HDL Cholesterol COVID-19 ([facility]ERT[facility]) Negative COVID-19 Clin Com See Note 11/25/21 11/25/21 11/25/21 05:39 05:39 07:11 MCV MCH MCHC RDW Plt Count MPV Immature Gran % (Auto) Neut % (Auto) Lymph % (Auto) [place] % (Auto) Eos % (Auto) Baso % (Auto) Lymph # (Auto) [place] # (Auto) Eos # (Auto) Baso # (Auto) Abs Immat Gran (auto) Absolute Neuts (auto) Absolute Nucleated RBC Nucleated RBC % (auto) PT Whole Blood PT INR Whole Blood INR APTT aPTT Heparin Protocol Anion Gap 13 Estim Creat Clear Calc 53.4 Estimated GFR > 60 POC Glucose 92 Random Glucose 92 Calcium 8.8 D Total Creatine Kinase B-Natriuretic Peptide Triglycerides 70 Cancelled Cholesterol 150 Cancelled LDL Cholesterol, Calc 80 Cancelled HDL Cholesterol 56 Cancelled COVID-19 ([facility]) COVID-19 Clin Com Assessment and Plan (1) Focal seizure: Status: Acute (2) NSTEMI (non-ST elevated myocardial infarction): Status: Acute Plan 56-year-old female with a past medical history of generalized anxiety disorder, depression, asthma/ COPD, history of TIA, 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 Admitted for further management.? ?CVA versus seizure: Patient had right-sided gaze, whole-body stiffening initially; the following episode patient had right-sided gaze and twitching of the right upper and lower extremity; ?CT head showed?no acute intracranial process but noted to have chronic encephalomalacia of the left frontal lobe, extensive white matter disease/ gliosis of the frontal and parietal lobes. CT angio head and neck showed?chronic appearing occlusion of the left common carotid artery, 65% stenosis of the Dr. Segment of the mid cervical segment of the right ICA.? Neurology was notified -recommended to start the patient on Keppra loading and admitted to the hospital for further management.? Continue Keppra 1000 mg b.i.d. Seizure precautions, aspiration precautions, fall precautions.? NPO Gentle IV fluids Speech and swallow/ PT/ OT.? Echo with bubble study Telemetry Cycle cardiac enzymes EEG Awaiting official Neuro consult Shortness of breath:?Likely in the setting of not having her oxygen on.? Patient currently breathing comfortably on supplemental oxygen.? At baseline patient on 2 L of home oxygen at home secondary to chronic respiratory failure in the setting of COPD /asthma.? Patient also had recent history of ARDS from COVID 19 infection in August of 2021.? Supportive care DuSherlynbs p.r.n. NSTEMI: elevated trops with some dynamic ECG changes, no pain, repeat trop, cardiology to see ?hypotension:??Patient systolic blood pressure dropped to 80s briefly which improved to low 100s without any intervention.? Given gentle IV fluids and resolved, this was not due to sepsis ?history of anxiety /depression: Continue home mirtazapine, citalopram History of CVA:? Reported residual mild right-sided weakness.? Patient on baclofen b.i.d..? Continue home aspirin statin DVT prophylaxis: SCD boots Code status: Full code ? I spoke to patient's daughter Pina and explained? about the above plan of care. Quality Stroke Does the patient have a stroke diagnosis?: No VTE Prior VTE?: No VTE Risk Level:: Medical - moderate - high VTE Device Contraindication: N/A - Device Ordered VTE Drug Contraindication: Treatment Not Indicated
[2021-11-25 10:45] LABS: Troponin-I High Sensitivity 551.5 ng/L (<3.5-17.0)
--- NOTE | 2021-11-25 10:45 | PM.NEUROCN ---
History of Present Illness Data of Consult Service Date: 11/25/21 Primary Care Provider: Unknown Physician HPI Reason for consult: Seizure disorder 56 years old woman who used to see and her last visit to my office was in 2019. She suffered from anticardiolipin antibody syndrome and cardiomyopathy associated with occluded left internal carotid artery and moderately stenosed right extracranial internal carotid artery. She also had bilateral left larger than right watershed infarcts of brain in April of 2016 resulting in right hemiparesis. She was not known to have seizure disorder as far as I was aware of. This time she was brought to hospital with change in mental status and in embolus she had an episode suggestive of a seizure with right gaze deviation and rigidity of body and then and other convulsion in emergency room. She told me that she was living with a daughter. Review of Systems Review of Systems: No recent cold or flu-like illness or trauma. [facility] Past Medical History Medical History Acute CHF (congestive heart failure) Anxiety, generalized Apical myocardial infarction Arthrosis Asthma, moderate Asymptomatic carotid artery stenosis with infarction Chronic GERD Cocaine abuse COPD mixed type COVID-19 virus infection Difficulty sleeping Environmental allergies Exacerbation of asthma Hemiparesis affecting right side as late effect of cerebrovascular accident Hypercapnic respiratory failure, chronic Lipid disorder Oxygen dependent Respiratory failure Tobacco abuse Family History Family History Father Substance abuse Mother Brain cancer Maternal Grandfather History of heart attack Maternal Grandmother History of heart attack Paternal Grandfather No problems noted. Paternal Grandmother No problems noted. Brother No problems noted. Brother No problems noted. Son No problems noted. Daughter No problems noted. Other Mental health disorder Surgical History Surgical History History of tonsillectomy and adenoidectomy Social History Social History Household Members: Children Housing: Apartment Do you presently have visiting nurse or other home services: Yes (pt stated vna) Patient Tobacco Use Status: Former Tobacco user Years Smoked: 35 years Advance Directives: Yes Advance Directives on File: Yes Advance Directives Date on File: 11/25/21 service: No Current occupational status: disabled Meds Allergies Allergy/AdvReac Type Severity Reaction Status Date / Time crab Allergy Unknown Hives Verified 11/25/21 08:00 penicillin V Allergy Unknown hives Verified 11/25/21 08:00 Penicillins [PENICILLINS] Allergy Unknown hives Verified 11/25/21 08:00 SEASONAL ALLERGIES Allergy Mild RUNNY NOSE Uncoded 06/10/21 15:36 Active Medications: Current Medications Acetaminophen (Acetaminophen 325 Mg Tablet) 650 mg PO Q6H PRN PRN Reason: Pain, Mild (Pain Scale 1-3) Albuterol/Ipratropium (Albuterol/Iprat 2.5/0.5mg 3 Ml Ampul.Neb) 3 ml INHALE RQ4H PRN PRN Reason: Shortness of Breath/Wheezing Aspirin (Aspirin 81 Mg Tab.Chew) 81 mg PO DAILY [facility] Last Admin: 11/25/21 08:07 Dose: 81 mg Documented by: Atorvastatin Calcium (Atorvastatin Calcium 40 Mg Tablet) 40 mg PO BEDTIME [facility] Baclofen (Baclofen 10 Mg Tablet) 5 mg PO BID [facility] Last Admin: 11/25/21 08:05 Dose: 5 mg Documented by: Escitalopram Oxalate (Escitalopram Oxalate 10 Mg Tablet) 10 mg PO DAILY [facility] Last Admin: 11/25/21 08:07 Dose: 10 mg Documented by: Heparin Sodium (Porcine) (Heparin Sodium,Porcine 5,000 Unit/Ml Vial) 1,500 unit 40 unit/kg (1500 unit) IVPUSH PROTOCOL BOLUS PRN; Protocol PRN Reason: 40 unit/kg - Heparin Protocol Heparin Sodium (Porcine) (Heparin Sodium,Porcine 5,000 Unit/Ml Vial) 3,100 unit 80 unit/kg (3100 unit) IVPUSH PROTOCOL BOLUS PRN; Protocol PRN Reason: 80 unit/kg - Heparin Protocol Dextrose/Sodium Chloride (D51/2ns) 1,000 mls @ 50 mls/hr IVCONT .Q20H [facility] Last Infusion: 11/25/21 07:00 Dose: 0 mls/hr Documented by: Levetiracetam (Keppra) 1,000 mg in 100 mls @ 400 mls/hr IV Q12H [facility] Last Infusion: 11/25/21 08:20 Dose: Infused Documented by: Heparin Sodium/Sodium Chloride () 25,000 unit in 250 mls @ 0 mls/hr IVCONT .Q0M [facility]; Protocol Last Titration: 11/25/21 07:07 Dose: 11 units/kg/hr, 4.26 mls/hr Documented by: Melatonin (Melatonin 3 Mg Tablet) 6 mg PO BEDTIME PRN PRN Reason: Insomnia Mirtazapine (Mirtazapine 30 Mg Tablet) 30 mg PO BEDTIME [facility] Omeprazole (Omeprazole 20 Mg Capsule.Dr) 20 mg PO DAILY@0630 [facility] Last Admin: 11/25/21 06:22 Dose: Not Given Documented by: Pharmacy Consult (Consult Rx Perform Med Rec) 1 each MISCELLANE ONCE PRN PRN Reason: Consult order Senna (Sennosides 8.6 Mg Tablet) 17.2 mg PO BEDTIME PRN PRN Reason: Constipation Sodium Chloride (0.9 % Sodium Chloride Flush 3 Ml Syringe) 3 ml IVFLUSH QSHIFT [facility] Last Admin: 11/25/21 08:02 Dose: Not Given Documented by: Home Medications Medication Instructions Recorded Confirmed Last Taken Type baclofen 10 mg tablet 0.5 tab PO BID 11/24/21 11/24/21 11/23/21 History beclomethasone dipropionate 80 1 inh INHALATION BID 11/24/21 11/24/21 Unknown History mcg/actuation HFA breath activated aerosol (Qvar RediHaler) Physical Exam Vital Signs: Vital Signs: Last Vital Signs Temp 97.8 F 11/25/21 08:11 Pulse 84 11/25/21 08:11 Resp 18 11/25/21 08:11 BP 117/59 L 11/25/21 08:11 Pulse Ox 98 11/25/21 08:11 Oxygen Flow Rate 5 11/24/21 20:07 BMI result Body Mass Index 14.6 Neuro: Other: She is drowsy but able to open her eyes make an eye contact and speak with normal spontaneity and fluency of speech and comprehension. She followed commands. There was probably right hemianopsia. Face seemed symmetrical. She has and moderately severe right hemiparesis and right extensor plantar. Results Labs CBC & Chem 7: 11/25/21 05:39 11/25/21 05:39 Labs: Short CBC 11/24/21 11/25/21 Range/Units 19:41 05:39 WBC 10.1 9.3 (4.8-10.8) X10*3/uL Hgb 13.7 D 11.1 L (12.0-16.0) g/dl Hct 44.8 D 36.9 L (37.0-47.0) % Plt Count 364 263 D (160-400) X10*3/uL BMP 11/24/21 11/25/21 19:41 05:39 Sodium 137 136 Potassium 4.4 3.9 Chloride 99 102 Carbon Dioxide 24 25 BUN 5 L D 5 L Creatinine 0.91 0.71 Calcium 10.2 D 8.8 D Cardiac Enzymes 11/24/21 Range/Units 19:41 Total Creatine Kinase 115 D (26-140) U/L Noncontrast head CT revealed a large chronic left middle cerebral artery area ischemic infarction. CTA revealed multiple pathologies including occluded left ICA and moderately severe right extracranial. Carotid stenosis. Troponin level was high. Assessment and Plan (1) Seizure disorder: Status: Acute 56 years old woman with complicated underlying history including anticardiolipin antibody syndrome, cardiomyopathy, drug abuse including cocaine abuse in the past, occluded left internal carotid artery and moderately severe right extracranial carotid stenosis, border zone bilateral ischemic infarction of brain with a large left sided lesion causing right hemiparesis, now presented with new onset of seizure disorder. It could be related to her previous strokes or they might be a new it reason. I would recommend followin. Direct tox screen to rule out cocaine abuse 2. Levetiracetam 500 mg twice a day 3. For stroke prophylaxis from cerebrovascular perspective, anti-platelet agent can suffice, unless there was a cardiac reason to anticoagulated, which can also be done. At this time I do not recommend surgical intervention on right carotid system. Medical management is recommended. A number for an MRI of brain without contrast rule out any acute lesion. Procedures Date of Service Date of Service: 11/25/21
--- NOTE | 2021-11-25 10:55 | PM.CNCAR ---
History of Present Illness History of Present Illness Date of Service: 11/25/21 Chief complaint: Seizure Narrative: This is a cardiology consultation regarding abnormal EKG and elevated troponins. Patient herself seems quite confused and not able to give any information at all. She states that she does not know why she is here. When I questioned her regarding chest pain or shortness of breath she states that she feels fine and does not have either. Based on the H&P, she has multiple medical comorbidities including prior stroke with residual right-sided weakness, substance abuse history, hyperlipidemia, tobacco dependence, history of ARDS from COVID-19, takotsubo cardiomyopathy, chronic respiratory failure. It seems that the initial presentation is more for seizures. At that time, she was given Ativan. Then per discussion with Neurology, she was given Keppra. From the cardiac standpoint, it was felt that the EKG was abnormal and they also check troponins to also elevate and hence we have been asked to see her. However patient states that she does not have any chest pain at this time. Review of Systems Review of Systems: Yes all other systems are reviewed and are negative Cardiovascular: Cardiovascular: Reports as per HPI, Reports no additional cardiovascular complaints, Denies acrocyanosis, Denies cool extremities, Denies chest pain, Denies diaphoresis, Denies syncope, Denies claudication, Denies leg edema, Denies lightheadedness, Denies palpitations and Denies dyspnea Respiratory: Respiratory: Denies dyspnea Neurologic: Denies syncope Endocrine: Endocrine: Denies palpitations PMFSH Past Medical History Medical History Acute CHF (congestive heart failure) Anxiety, generalized Apical myocardial infarction Arthrosis Asthma, moderate Asymptomatic carotid artery stenosis with infarction Chronic GERD Cocaine abuse COPD mixed type COVID-19 virus infection Difficulty sleeping Environmental allergies Exacerbation of asthma Hemiparesis affecting right side as late effect of cerebrovascular accident Hypercapnic respiratory failure, chronic Lipid disorder Oxygen dependent Respiratory failure Tobacco abuse Family History Family History Father Substance abuse Mother Brain cancer Maternal Grandfather History of heart attack Maternal Grandmother History of heart attack Paternal Grandfather No problems noted. Paternal Grandmother No problems noted. Brother No problems noted. Brother No problems noted. Son No problems noted. Daughter No problems noted. Other Mental health disorder Surgical History Surgical History History of tonsillectomy and adenoidectomy Social History Social History Household Members: Children Housing: Apartment Do you presently have visiting nurse or other home services: Yes (pt stated vna) Patient Tobacco Use Status: Former Tobacco user Years Smoked: 35 years Advance Directives: Yes Advance Directives on File: Yes Advance Directives Date on File: 11/25/21 service: No Current occupational status: disabled Meds Allergies Allergy/AdvReac Type Severity Reaction Status Date / Time crab Allergy Unknown Hives Verified 11/25/21 08:00 penicillin V Allergy Unknown hives Verified 11/25/21 08:00 Penicillins [PENICILLINS] Allergy Unknown hives Verified 11/25/21 08:00 SEASONAL ALLERGIES Allergy Mild RUNNY NOSE Uncoded 06/10/21 15:36 Active Medications: Current Medications Acetaminophen (Acetaminophen 325 Mg Tablet) 650 mg PO Q6H PRN PRN Reason: Pain, Mild (Pain Scale 1-3) Albuterol/Ipratropium (Albuterol/Iprat 2.5/0.5mg 3 Ml Ampul.Neb) 3 ml INHALE RQ4H PRN PRN Reason: Shortness of Breath/Wheezing Aspirin (Aspirin 81 Mg Tab.Chew) 81 mg PO DAILY [facility] Last Admin: 11/25/21 08:07 Dose: 81 mg Documented by: Atorvastatin Calcium (Atorvastatin Calcium 40 Mg Tablet) 40 mg PO BEDTIME [facility] Baclofen (Baclofen 10 Mg Tablet) 5 mg PO BID [facility] Last Admin: 11/25/21 08:05 Dose: 5 mg Documented by: Escitalopram Oxalate (Escitalopram Oxalate 10 Mg Tablet) 10 mg PO DAILY [facility] Last Admin: 11/25/21 08:07 Dose: 10 mg Documented by: Heparin Sodium (Porcine) (Heparin Sodium,Porcine 5,000 Unit/Ml Vial) 1,500 unit 40 unit/kg (1500 unit) IVPUSH PROTOCOL BOLUS PRN; Protocol PRN Reason: 40 unit/kg - Heparin Protocol Heparin Sodium (Porcine) (Heparin Sodium,Porcine 5,000 Unit/Ml Vial) 3,100 unit 80 unit/kg (3100 unit) IVPUSH PROTOCOL BOLUS PRN; Protocol PRN Reason: 80 unit/kg - Heparin Protocol Dextrose/Sodium Chloride (D51/2ns) 1,000 mls @ 50 mls/hr IVCONT .Q20H [facility] Last Infusion: 11/25/21 07:00 Dose: 0 mls/hr Documented by: Levetiracetam (Keppra) 1,000 mg in 100 mls @ 400 mls/hr IV Q12H [facility] Last Infusion: 11/25/21 08:20 Dose: Infused Documented by: Heparin Sodium/Sodium Chloride () 25,000 unit in 250 mls @ 0 mls/hr IVCONT .Q0M [facility]; Protocol Last Titration: 11/25/21 07:07 Dose: 11 units/kg/hr, 4.26 mls/hr Documented by: Melatonin (Melatonin 3 Mg Tablet) 6 mg PO BEDTIME PRN PRN Reason: Insomnia Mirtazapine (Mirtazapine 30 Mg Tablet) 30 mg PO BEDTIME [facility] Omeprazole (Omeprazole 20 Mg Capsule.Dr) 20 mg PO DAILY@0630 [facility] Last Admin: 11/25/21 06:22 Dose: Not Given Documented by: Pharmacy Consult (Consult Rx Perform Med Rec) 1 each MISCELLANE ONCE PRN PRN Reason: Consult order Senna (Sennosides 8.6 Mg Tablet) 17.2 mg PO BEDTIME PRN PRN Reason: Constipation Sodium Chloride (0.9 % Sodium Chloride Flush 3 Ml Syringe) 3 ml IVFLUSH QSHIFT [facility] Last Admin: 11/25/21 08:02 Dose: Not Given Documented by: Home Medications Medication Instructions Recorded Confirmed Last Taken Type baclofen 10 mg tablet 0.5 tab PO BID 11/24/21 11/24/21 11/23/21 History beclomethasone dipropionate 80 1 inh INHALATION BID 11/24/21 11/24/21 Unknown History mcg/actuation HFA breath activated aerosol (Qvar RediHaler) Physical Exam Vital Signs: Vital Signs: Last Vital Signs Temp 97.8 F 11/25/21 08:11 Pulse 84 11/25/21 08:11 Resp 18 11/25/21 08:11 BP 117/59 L 11/25/21 08:11 Pulse Ox 98 11/25/21 08:11 Oxygen Flow Rate 5 11/24/21 20:07 BMI result Body Mass Index 14.6 Const: General: comfortable HENMT: Other: Unremarkable Neck: Neck: Yes normal visual inspection Chest: Chest palpation & inspection: normal inspection of the chest Resp: Auscultation: clear to auscultation bilaterally Cardio: Palpation: normal PMI Heart sounds: S1 normal heart sound present, S2 normal heart sound present, no gallops, no murmurs and no rubs GI: Palpation (GI): Soft to palpation Back/Spine/Pelvis: Other: unremarkable Skin: Lesions: other Neuro: General: other Extrem: General: Yes other Psych: Mental Status: other Objective Labs and Meds Result diagrams: 11/25/21 05:39 11/25/21 05:39 Lab results: Laboratory Results - last 24 hr 11/24/21 11/24/21 11/24/21 19:38 19:39 19:41 WBC 10.1 RBC 5.21 D Hgb 13.7 D Hct 44.8 D MCV 86.0 MCH 26.3 L MCHC 30.6 L RDW 14.5 Plt Count 364 MPV 10.0 Immature Gran % (Auto) 0.1 Neut % (Auto) 38.9 L Lymph % (Auto) 47.5 H [place] % (Auto) 12.5 H Eos % (Auto) 0.7 Baso % (Auto) 0.3 Lymph # (Auto) 4.8 [place] # (Auto) 1.3 H Eos # (Auto) 0.1 Baso # (Auto) 0.0 Abs Immat Gran (auto) 0.01 Absolute Neuts (auto) 3.9 Absolute Nucleated RBC 0.000 Nucleated RBC % (auto) 0.0 PT Whole Blood PT 13.6 H INR Whole Blood INR 1.1 APTT aPTT Heparin Protocol Sodium Potassium Chloride Carbon Dioxide Anion Gap BUN Creatinine Estim Creat Clear Calc Estimated GFR POC Glucose 162 H Random Glucose Calcium Total Creatine Kinase Troponin I High Sens B-Natriuretic Peptide Triglycerides Cholesterol LDL Cholesterol, Calc HDL Cholesterol COVID-19 ([facility]) COVID-19 Clin Com 11/24/21 11/24/21 11/24/21 19:41 19:41 19:41 WBC RBC Hgb Hct MCV MCH MCHC RDW Plt Count MPV Immature Gran % (Auto) Neut % (Auto) Lymph % (Auto) [place] % (Auto) Eos % (Auto) Baso % (Auto) Lymph # (Auto) [place] # (Auto) Eos # (Auto) Baso # (Auto) Abs Immat Gran (auto) Absolute Neuts (auto) Absolute Nucleated RBC Nucleated RBC % (auto) PT 13.6 H Whole Blood PT INR 1.2 H Whole Blood INR APTT 42.4 H aPTT Heparin Protocol Sodium 137 Potassium 4.4 Chloride 99 Carbon Dioxide 24 Anion Gap 18 BUN 5 L D Creatinine 0.91 Estim Creat Clear Calc TNP Estimated GFR > 60 POC Glucose Random Glucose 144 H Calcium 10.2 D Total Creatine Kinase 115 D Troponin I High Sens 6.1 D B-Natriuretic Peptide 140 H Triglycerides Cholesterol LDL Cholesterol, Calc HDL Cholesterol COVID-19 ([facility]) COVID-19 Clin Com 11/24/21 11/24/21 11/25/21 21:23 21:29 05:39 WBC RBC Hgb Hct MCV MCH MCHC RDW Plt Count MPV Immature Gran % (Auto) Neut % (Auto) Lymph % (Auto) [place] % (Auto) Eos % (Auto) Baso % (Auto) Lymph # (Auto) [place] # (Auto) Eos # (Auto) Baso # (Auto) Abs Immat Gran (auto) Absolute Neuts (auto) Absolute Nucleated RBC Nucleated RBC % (auto) PT Whole Blood PT INR Whole Blood INR APTT aPTT Heparin Protocol 99.8 H Sodium Potassium Chloride Carbon Dioxide Anion Gap BUN Creatinine Estim Creat Clear Calc Estimated GFR POC Glucose Random Glucose Calcium Total Creatine Kinase Troponin I High Sens 191.3 H* D B-Natriuretic Peptide Triglycerides Cholesterol LDL Cholesterol, Calc HDL Cholesterol COVID-19 ([facility]) Negative COVID-19 Clin Com See Note 11/25/21 11/25/21 11/25/21 05:39 05:39 05:39 WBC 9.3 RBC 4.29 Hgb 11.1 L Hct 36.9 L MCV 86.0 MCH 25.9 L MCHC 30.1 L RDW 14.5 Plt Count 263 D MPV 9.9 Immature Gran % (Auto) 0.2 Neut % (Auto) 52.5 Lymph % (Auto) 36.7 [place] % (Auto) 10.1 Eos % (Auto) 0.2 Baso % (Auto) 0.3 Lymph # (Auto) 3.4 [place] # (Auto) 0.9 Eos # (Auto) 0.0 Baso # (Auto) 0.0 Abs Immat Gran (auto) 0.02 Absolute Neuts (auto) 4.9 Absolute Nucleated RBC 0.000 Nucleated RBC % (auto) 0.0 PT Whole Blood PT INR Whole Blood INR APTT aPTT Heparin Protocol Sodium 136 Potassium 3.9 Chloride 102 Carbon Dioxide 25 Anion Gap 13 BUN 5 L Creatinine 0.71 Estim Creat Clear Calc 53.4 Estimated GFR > 60 POC Glucose Random Glucose 92 Calcium 8.8 D Total Creatine Kinase Troponin I High Sens B-Natriuretic Peptide Triglycerides 70 Cancelled Cholesterol 150 Cancelled LDL Cholesterol, Calc 80 Cancelled HDL Cholesterol 56 Cancelled COVID-19 ([facility]) COVID-19 Clin Com 11/25/21 11/25/21 07:11 10:14 WBC RBC Hgb Hct MCV MCH MCHC RDW Plt Count MPV Immature Gran % (Auto) Neut % (Auto) Lymph % (Auto) [place] % (Auto) Eos % (Auto) Baso % (Auto) Lymph # (Auto) [place] # (Auto) Eos # (Auto) Baso # (Auto) Abs Immat Gran (auto) Absolute Neuts (auto) Absolute Nucleated RBC Nucleated RBC % (auto) PT Whole Blood PT INR Whole Blood INR APTT aPTT Heparin Protocol Sodium Potassium Chloride Carbon Dioxide Anion Gap BUN Creatinine Estim Creat Clear Calc Estimated GFR POC Glucose 92 Random Glucose Calcium Total Creatine Kinase Troponin I High Sens 551.5 H* D B-Natriuretic Peptide Triglycerides Cholesterol LDL Cholesterol, Calc HDL Cholesterol COVID-19 ([facility]) COVID-19 Clin Com Imaging Radiologist's impression: Impressions Head CT 11/24/21 19:46 IMPRESSION: 1. No evidence of acute intracranial hemorrhage. Multifocal regions of chronic appearing encephalomalacia in the left frontal lobe. There is extensive white matter disease/gliosis throughout the left frontal and parietal lobes. 2. Chronic appearing occlusion of the of the left common carotid artery. Partial reconstitution of the distal left ICA. Prominent left submental collateralization along the distal ICAs and M1 segments of the MCAs. 3. Irregular atherosclerotic disease causes 65% stenosis of a tortuous segment of the mid cervical segment of the right ICA. 4. Mild to moderate interstitial edema. This critical result was discussed with Dr. Guzman at 20:25 on 11/24/2021 and it was ascertained that the content and urgency of the report was understood at the time of direct communication. Head/Neck CTA 11/24/21 19:58 IMPRESSION: 1. No evidence of acute intracranial hemorrhage. Multifocal regions of chronic appearing encephalomalacia in the left frontal lobe. There is extensive white matter disease/gliosis throughout the left frontal and parietal lobes. 2. Chronic appearing occlusion of the of the left common carotid artery. Partial reconstitution of the distal left ICA. Prominent left submental collateralization along the distal ICAs and M1 segments of the MCAs. 3. Irregular atherosclerotic disease causes 65% stenosis of a tortuous segment of the mid cervical segment of the right ICA. 4. Mild to moderate interstitial edema. This critical result was discussed with Dr. Guzman at 20:25 on 11/24/2021 and it was ascertained that the content and urgency of the report was understood at the time of direct communication. Assessment and Plan (1) NSTEMI (non-ST elevated myocardial infarction): Status: Acute (2) Seizure disorder: Status: Acute Plan Coronary CTA reviewed from 2018. At that time, she had normal left main. She has proximal to mid LAD stenosis, moderate with calcific and mixed plaque. Apical and distal anterior hypokinesis thought to be from a subendocardial distal LAD infarct. She had mild stenosis in the circumflex and RCA. In the echocardiogram from August, LVEF 50-55%.; there was anteroseptal/mid inferoseptal hypokinesis and basal inferoseptal akinesis. Troponins are abnormal at 6.1 followed by 191, followed by 551. EKGs reviewed. In the initial EKG, she had sinus tach at 149/Min with diffuse nonspecific ST-T changes. Old septal and possibly lateral infarct. In the subsequent EKG, rate is lower and there is T inversions in inferior and anterolateral leads. Then the T-waves in the inferior leads become upright. Overall, she could have had a seizure which provoked demand related troponin leaks. The presentation does not appear to be a primary type 1 UT. we need to check a tox screen as she had cocaine positive findings 3 months ago. Otherwise, we will recheck an echocardiogram. Continue IV heparin for 48 hours if no neurological contraindications. Aspirin and statins. Will follow with you. Procedures Date of Service Date of Service: 11/25/21
--- NOTE | 2021-11-25 11:07 | PC.NURSE ---
patient sleeping quietly at this time. patient on heparin drip of 4.26 ml/hr. patient in no obvious distress at this time. will continue to monitor
--- NOTE | 2021-11-25 11:15 | CA_ITS ---
Transthoracic Echocardiogram Amended Patient (Last, First, Middle): Oxana Bragg L Gender: Female Date of : 1965 Age: 56 Procedure Date: 11/25/2021 Procedure Type: Transthoracic E[place] [facility] [place]: 162.56 cm Weight: 38.56 kg BSA: 1.36 m2 Heart Rate: bpm BP: 111 / 39 mmHg Water Leak Repairer: Referring MD: Ariel Shah MD Symptoms: IA, SEIZURE Study Quality: Fair ECG Rhythm: Sinus Conclusions: - The left ventricular systolic function is mildly decreased. The visually estimated ejection fraction is between 45-50%. - The basal inferior, mid inferior, mid inferoseptal, and mid anteroseptal segments are hypokinetic. - No obvious valvular pathology seen on this study. Findings Left Ventricle Normal left ventricular cavity size. There is normal left ventricular wall thickness. The left ventricular systolic function is mildly decreased. The visually estimated ejection fraction is between 45-50%. There is evidence of regional wall motion abnormalities. E/E prime ratio is >15, consistent with elevated filling pressures. Evidence suggests grade I (mild) diastolic dysfunction. Wall Motion Rest Echo Findings The basal inferior, mid inferior, mid inferoseptal, and mid anteroseptal segments are hypokinetic. Right Ventricle Normal right ventricular cavity size. There is low normal right ventricular systolic function. Atria Both atria are normal in size. Aortic Valve The aortic valve was not well visualized. There is no aortic valve stenosis. There is mild aortic valve regurgitation. Mitral Valve The mitral valve appears normal. There is mild mitral valve regurgitation. There is no mitral valve stenosis. Pulmonic Valve The pulmonic valve was not well visualized. Tricuspid Valve There is trace tricuspid valve regurgitation. The pulmonary artery systolic pressure is normal. Great Vessels The sinuses of valsalva is normal in size. Venous The inferior vena cava is normal in size and collapses greater than 50% with inspiration. Pericardium/Pleural There is no evidence of pericardial effusion. Prior Study Comparison No significant change compared to prior study dated: 08/21/2021. Recommendations, Care & Conclusions No obvious valvular pathology seen on this study. Measurements 2D Linear Measurements IVSd: 0.86 0.6-0.9/0.6-1.0 cm LVIDd: 4.90 3.9-5.3/4.2-5.9 cm LVIDd Index: 3.60 2.4-3.2/2.2-3.1 cm/m2 LVIDs: 3.43 2.0-3.6 cm LVPWd: 0.82 0.7-1.1 cm LA Diam: 2.80 2.7-3.8/3.0-4.0 cm LAIDs Index: 2.06 1.5-2.3 cm/m2 LV Mass: 173.39 67-162/88-224 g LV Mass Index: 127.49 43-95/49-115 g/m2 LVOT Diam: 1.90 3.0+(-)1.3 cm 2D Volumes LA Vol: 30.70 2D Systolic Function EF 4C: 39.90 >55% EF 2C: 40.40 >55% EF BiP: 39.40 >55% Mitral Valve MV Pk E: 0.81 MV PK A: 0.69 MV Decel Time: 146.00 E/A: 1.20 E'Lateral: 4.13 E'Medial: 5.00 E/E' Med: 16.10 E/E' Lat: 19.50 PHT: 43.00 MVA PHT: 5.12 Decel Calloway: 5.52 Aortic Valve AoV Pk Abe: 1.23 AoV Mn Abe: 0.80 AoV VTI: 0.25 AoV Pk Grad: 6.00 Aov Mn Grad: 3.00 JUDITH Cont.VTI: 2.23 LVOT LVOT Pk Abe: 1.04 LVOT Mn Abe: 0.66 LVOT VTI: 0.20 LVOT Pk Grad: 4.00 LVOT Mn Grad: 2.00 LVOT Diam: 1.90 LVOT Area: 2.84 Diastolic Function MV Pk E: 0.81 MV Pk A: 0.69 E/A: 1.20 E'Medial: 5.00 E/E' Med: 16.10 E' Laterial: 4.13 E/E' Lat: 19.50 Right Ventricle TAPSE (mm): 16.00 TVS' Abe: 11.00 Tricuspid Valve TR Pk Abe: 2.44 TR Pk Grad: 24.00 RA Press: 3.00 RVSP: 27.00 Great Vessels Aorta Sinus of Valsalva: 2.80 2.0-3.[address] Ridge: 2.80 1.7-3.4 cm Pulmonary Valve PV Pk Abe: 0.79 Peak PV Grad: 2.00 Updated in Other Vendor System with Status of Final David Munoz MD electronically signed on 11/25/2021 4:28:33 PM with status of Final
[2021-11-25 11:20] LABS: Glucose, Whole Blood 79 mg/dL (60-115)
--- NOTE | 2021-11-25 11:29 | MHC.CM.PN ---
CM met with Patient at bedside and she was unable to tell CM her home address. CM has left a message for Daughter/HCP/POWER GRADER OPERATOR/Pina at [phone] and made several additional attempts to reach her, with no luck in reaching her. From chart review, Patient lives alone and her Daughter is her Wilber POWER GRADER OPERATOR (28 hours/week) and [facility] supplies O2. PT rec Home with services (referral made to [facility]) VS STR (Patient has refused SNF in the past). CM has initiated and will follow for dc planning.Patient does not appear to be Covid vaccinated.Patient's S.O and Son have assisted her in the home, in the past.
--- NOTE | 2021-11-25 11:40 | MHC.CM.PN ---
PCP is Dr. Brianna Gonzalez.
[2021-11-25 12:27] LABS: Partial Thromboplastin Time 58.2 SEC (24.1-38.0)
--- NOTE | 2021-11-25 16:25 | MHC.CLN ---
NUTRITION CONSULT CONSULT FOR WEIGHT LOSS. REGULAR DIET. PATIENT AGREES TO ENSURE TID. WILL PROVIDE ADDITIONAL 1050 KCAL, 60 G PROTEIN. SIGNIFICANT WEIGHT LOSS X 6 MONTHS. NUTRITION DX MODERATE MALNUTRITION IN THE CONTEXT OF CHRONIC ILLNESS. FOLLOW INTAKE OF MEALS AND SUPPLEMENT.
[2021-11-25 19:34] LABS: PTT Heparin Drip 45.6 SEC (53-77.9)
--- NOTE | 2021-11-25 19:45 | HE.PHANOTE ---
Heparin Monitoring: PPT came back at 45.6. Recommending a bolus of 1,548 units and increasing the rate by 2 units/kg/hr. I confirmed these recommendations with SACHA Sanz. Next PPT scheduled for 11/26 @ 0100.
[2021-11-25] MEDS: Heparin Sodium,Porcine 5,000 UNIT/ML VIAL 1500 UNIT IVPUSH (20:04)
[2021-11-25] MEDS: levETIRAcetam 500 MG TABLET PO (20:26)
[2021-11-25] MEDS: Atorvastatin Calcium 40 MG TABLET PO (20:27)
[2021-11-25] MEDS: Mirtazapine 30 MG TABLET PO (20:27)
[2021-11-25] MEDS: 0.9 % Sodium Chloride Flush 3 ML SYRINGE IVFLUSH (20:28)
[2021-11-25] MEDS: Dextrose 5 % and 0.45 % NaCl 1,000 ML 50 ML IVCONT (22:18)
--- NOTE | 2021-11-26 | EEG_ITS ---
This is a 16-channel EEG with an EKG lead. The patient is reported awake during the tracing. Background EEG rhythm is low to medium amplitude with intermittent slower activity. Periodically, right hemispheric theta range sharply controlled discharges were noted. Photic stimulation does not produce any significant abnormality. Hyperventilation is not performed. Cardiac lead does not reveal any significant abnormality. IMPRESSION: Mildly abnormal EEG suggestive of right hemispheric abnormality. If complex partial seizure is suspected, further evaluation might be needed. MD JOHN Roger/JAHAIRA / [phone]
[2021-11-26 02:04] LABS: PTT Heparin Drip 86.3 SEC (53-77.9)
[2021-11-26 03:36] VITALS: BP 119/56; PULSE 68; RESP 15; TEMP 35.8; O2SAT 100
[2021-11-26] MEDS: Omeprazole 20 MG CAPSULE.DR PO (05:54)
--- NOTE | 2021-11-26 06:17 | P.CDIC_ITS ---
CDI Concurrent Query Documentation Clarification: PHYSICIAN'S DOCUMENTATION REQUEST Date of Query: 11/26/21616 Patient Name: Oxana Bragg Admit Date: 11/24/21 Dear Doctor, A review of the medical record indicates additional documentation may be needed. Please review below and update the documentation accordingly. Clinical Indicators: Risk Factors/Clinical Indicators/Treatments BMI 14.6 5' 4 Nutrition notes patient is receiving supplements. Unplanned weight loss. If possible, please provide an associated diagnosis related to the abnormal BMI, such as: For a BMI <= 19: * Underweight * Weight loss * Cachexia * Anorexia * Malnourished, mild, moderate or other Or: * BMI is not significant * Other (please specify) * Unable to determine Use of terms such as suspected, likely, concern for, or probable (associated with a specific diagnosis that is being evaluated, monitored, or treated as if it exists) are acceptable and can be coded in the inpatient setting, when documented at the time of discharge. Thank you, Shama Matthews [facility], CDIS Extension: [phone] Please use your independent medical judgment in providing your response. THIS QUERY IS PART OF THE PERMANENT MEDICAL RECORD Provider Response: Moderate Protein-Calorie Malnutrition
--- NOTE | 2021-11-26 06:17 | MHC.CDI.CONC ---
CDI Concurrent Query Documentation Clarification: PHYSICIAN'S DOCUMENTATION REQUEST Date of Query: 11/26/2117 Patient Name: Oxana Bragg Admit Date: 11/24/21 Dear Doctor, A review of the medical record indicates additional documentation may be needed. Please review below and update the documentation accordingly. Clinical Indicators: Risk Factors/Clinical Indicators/Treatments BMI 14.6 5' 4 Nutrition notes patient is receiving supplements. Unplanned weight loss. If possible, please provide an associated diagnosis related to the abnormal BMI, such as: For a BMI <= 19: Underweight Weight loss Cachexia Anorexia Malnourished, mild, moderate or other Or: BMI is not significant Other (please specify) Unable to determine Use of terms such as suspected, likely, concern for, or probable (associated with a specific diagnosis that is being evaluated, monitored, or treated as if it exists) are acceptable and can be coded in the inpatient setting, when documented at the time of discharge. Thank you, Shama Matthews [facility], CDIS Extension: [phone] Please use your independent medical judgment in providing your response. THIS QUERY IS PART OF THE PERMANENT MEDICAL RECORD Provider Response: Moderate Protein-Calorie Malnutrition
--- NOTE | 2021-11-26 06:27 | PC.NURSE ---
PTT-HD at 0145 came back high at 86.3. Per protocol to decrease drip by 2u/kg/h. Initially documented pause of drip. Unable to edit documentation. Redocumented decrease of drip to 11u/kg/h or 4.26ml/h per protocol. Next PTT-HD ordered for 829.
[2021-11-26 07:29] VITALS: BP 147/68; PULSE 71; RESP 18; TEMP 37.2; O2SAT 94
[2021-11-26] MEDS: Baclofen 10 MG TABLET 5 MG PO ×2 (08:26→20:13)
[2021-11-26] MEDS: Escitalopram Oxalate 10 MG TABLET PO (08:27)
[2021-11-26] MEDS: Aspirin 81 MG TAB.CHEW PO (08:27)
[2021-11-26] MEDS: levETIRAcetam 500 MG TABLET PO ×2 (08:27→20:13)
[2021-11-26 09:09] LABS: Troponin-I High Sensitivity 102.8 ng/L (<3.5-17.0)
--- NOTE | 2021-11-26 09:32 | HO.PM.IMPN ---
Subjective Subjective Date of Service: 11/26/21 Interval History: F/u on NSTEMI, ? seizure vs CVA.. interval history: No sezure, no chest pain Review of Systems no chest pain no sob no seizure, no fever Physical Exam Vital Signs: Vital Signs: Last Vital Signs Temp 98.9 F 11/26/21 07:29 Pulse 71 11/26/21 07:29 Resp 18 11/26/21 07:29 BP 147/68 H 11/26/21 07:29 Pulse Ox 94 11/26/21 07:29 Oxygen Flow Rate 5 11/24/21 20:07 BMI result Body Mass Index 14.6 Const: Other: General: AO X 3, no acute distress Resp: CTA bilateral CVS: S1,S2,RRR GI: +BS, NT, no distention Skin: No rash Neuro: motor grossly intact Psych: appropriate affect Objective Data Active Medications Acetaminophen (Acetaminophen 325 Mg Tablet) 650 mg PO Q6H PRN PRN Reason: Pain, Mild (Pain Scale 1-3) Albuterol/Ipratropium (Albuterol/Iprat 2.5/0.5mg 3 Ml Ampul.Neb) 3 ml INHALE RQ4H PRN PRN Reason: Shortness of Breath/Wheezing Aspirin (Aspirin 81 Mg Tab.Chew) 81 mg PO DAILY [facility] Last Admin: 11/26/21 08:27 Dose: 81 mg Documented by: MAGNOLIA Atorvastatin Calcium (Atorvastatin Calcium 40 Mg Tablet) 40 mg PO BEDTIME [facility] Last Admin: 11/25/21 20:27 Dose: 40 mg Documented by: MINH Baclofen (Baclofen 10 Mg Tablet) 5 mg PO BID [facility] Last Admin: 11/26/21 08:26 Dose: 5 mg Documented by: MAGNOLIA Escitalopram Oxalate (Escitalopram Oxalate 10 Mg Tablet) 10 mg PO DAILY [facility] Last Admin: 11/26/21 08:27 Dose: 10 mg Documented by: MAGNOLIA Heparin Sodium (Porcine) (Heparin Sodium,Porcine 5,000 Unit/Ml Vial) 1,500 unit 40 unit/kg (1500 unit) IVPUSH PROTOCOL BOLUS PRN; Protocol PRN Reason: 40 unit/kg - Heparin Protocol Last Admin: 11/25/21 20:04 Dose: 1,500 unit Documented by: MINH Heparin Sodium (Porcine) (Heparin Sodium,Porcine 5,000 Unit/Ml Vial) 3,100 unit 80 unit/kg (3100 unit) IVPUSH PROTOCOL BOLUS PRN; Protocol PRN Reason: 80 unit/kg - Heparin Protocol Dextrose/Sodium Chloride (D51/2ns) 1,000 mls @ 50 mls/hr IVCONT .Q20H [facility] Last Admin: 11/25/21 22:18 Dose: 50 mls/hr Documented by: MINH Heparin Sodium/Sodium Chloride () 25,000 unit in 250 mls @ 0 mls/hr IVCONT .Q0M [facility]; Protocol Last Titration: 11/26/21 02:35 Dose: 11 units/kg/hr, 4.26 mls/hr Documented by: MINH Cosigned by: BELÉN Levetiracetam (Levetiracetam 500 Mg Tablet) 500 mg PO BID [facility] Last Admin: 11/26/21 08:27 Dose: 500 mg Documented by: MAGNOLIA Melatonin (Melatonin 3 Mg Tablet) 6 mg PO BEDTIME PRN PRN Reason: Insomnia Mirtazapine (Mirtazapine 30 Mg Tablet) 30 mg PO BEDTIME [facility] Last Admin: 11/25/21 20:27 Dose: 30 mg Documented by: MINH Omeprazole (Omeprazole 20 Mg Capsule.) 20 mg PO DAILY@0630 [facility] Last Admin: 11/26/21 05:54 Dose: 20 mg Documented by: MINH Pharmacy Consult (Consult Rx Perform Med Rec) 1 each MISCELLANE ONCE PRN PRN Reason: Consult order Senna (Sennosides 8.6 Mg Tablet) 17.2 mg PO BEDTIME PRN PRN Reason: Constipation Sodium Chloride (0.9 % Sodium Chloride Flush 3 Ml Syringe) 3 ml IVFLUSH QSHIFT [facility] Last Admin: 11/26/21 08:27 Dose: Not Given Documented by: MAGNOLIA Non-Admin Reason: IV Running Labs CBC & Chem 7: 11/25/21 05:39 11/25/21 05:39 Labs: Laboratory Results - last 24 hr 11/25/21 11/25/21 11/25/21 11:17 12:13 18:56 APTT 58.2 H D aPTT Heparin Protocol 45.6 L D POC Glucose 79 11/26/21 11/26/21 01:46 08:26 APTT aPTT Heparin Protocol 86.3 H D 57.0 D POC Glucose Assessment and Plan (1) Focal seizure: Status: Acute (2) NSTEMI (non-ST elevated myocardial infarction): Status: Acute Plan 56-year-old female with a past medical history of generalized anxiety disorder, depression, asthma/ COPD, history of TIA, 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 ?CVA versus seizure: Patient had right-sided gaze, whole-body stiffening initially; the following episode patient had right-sided gaze and twitching of the right upper and lower extremity; ?CT head showed?no acute intracranial process but noted to have chronic encephalomalacia of the left frontal lobe, extensive white matter disease/ gliosis of the frontal and parietal lobes. CT angio head and neck showed?chronic appearing occlusion of the left common carotid artery, 65% stenosis of the Dr. Segment of the mid cervical segment of the right ICA.? -Neuro recommend MRI, Keppra, EEG NSTEMI: elevated trops with some dynamic ECG changes, no pain, repeat trop--trending down. Cardiology recommending medical management with heparin for 48 hours, to cotninue ASA, BB, statin, will get echo ?hypotension:??Transient and resolved, not related to sepsis ?history of anxiety /depression: Continue home mirtazapine, citalopram History of CVA:? Reported residual mild right-sided weakness.? Patient on baclofen b.i.d..? Continue home aspirin statin Need for inpatient: Ongoing treatment for NSTEMI with IV Heparin as advised by pcb design engineer and per standard of care Quality Stroke Does the patient have a stroke diagnosis?: No VTE Prior VTE?: No VTE Risk Level:: Medical - moderate - high VTE Device Contraindication: N/A - Device Ordered VTE Drug Contraindication: Treatment Not Indicated
[2021-11-26] MEDS: Metoprolol Tartrate 12.5 MG HALFTAB PO ×2 (09:40→20:14)
[2021-11-26 11:07] VITALS: BP 115/51; PULSE 75; RESP 18; TEMP 36.3; O2SAT 93
[2021-11-26] MEDS: Dextrose 5 % and 0.45 % NaCl 1,000 ML 50 ML IVCONT (11:15)
--- NOTE | 2021-11-26 11:29 | PM.PNCARD ---
Subjective Subjective Date of Service: 11/26/21 Interval history: She feels ok. No specific cardiac complaints. Review of Systems Review of Systems Yes all other systems are reviewed and are negative Cardiovascular: Reports as per HPI, Reports no additional cardiovascular complaints, Denies acrocyanosis, Denies cool extremities, Denies chest pain, Denies diaphoresis, Denies syncope, Denies claudication, Denies leg edema, Denies lightheadedness, Denies palpitations and Denies dyspnea Respiratory: Denies dyspnea Denies syncope Endocrine: Denies palpitations Physical Exam Vital Signs: Last Vital Signs Temp 97.4 F 11/26/21 11:07 Pulse 75 11/26/21 11:07 Resp 18 11/26/21 11:07 BP 115/51 L 11/26/21 11:07 Pulse Ox 93 11/26/21 11:07 Oxygen Flow Rate 5 11/24/21 20:07 BMI result Body Mass Index 14.6 Const General: comfortable HENMT Other: Unremarkable Neck Neck: Yes normal visual inspection Chest Chest palpation & inspection: normal inspection of the chest Resp Auscultation: clear to auscultation bilaterally Cardio Palpation: normal PMI Heart sounds: S1 normal heart sound present, S2 normal heart sound present, no gallops, no murmurs and no rubs GI Palpation (GI): Soft to palpation Back/Spine/Pelvis Other: unremarkable Skin Lesions: other Neuro General: other Extrem General: Yes other Psych Mental Status: other Objective Labs and Meds Result diagrams: 11/25/21 05:39 11/25/21 05:39 Lab results: Laboratory Results - last 24 hr 11/25/21 11/25/21 11/26/21 12:13 18:56 01:46 APTT 58.2 H D aPTT Heparin Protocol 45.6 L D 86.3 H D Troponin I High Sens 11/26/21 11/26/21 08:26 08:26 APTT aPTT Heparin Protocol 57.0 D Troponin I High Sens 102.8 H* D Progress Note: A&P Assessment and plan (1) NSTEMI (non-ST elevated myocardial infarction): Status: Acute (2) Seizure disorder: Status: Acute Plan Coronary CTA reviewed from 2019. At that time, she had normal left main. She has proximal to mid LAD stenosis, moderate with calcific and mixed plaque. Apical and distal anterior hypokinesis thought to be from a subendocardial distal LAD infarct. She had mild stenosis in the circumflex and RCA. Echocardiogram this admission shows LVEF of 45-50% and wall motion abnormalities overall, similar to before. Troponins are abnormal at 6.1 followed by 191, followed by 551. EKGs reviewed. In the initial EKG, she had sinus tach at 149/Min with diffuse nonspecific ST-T changes. Old septal and possibly lateral infarct. In the subsequent EKG, rate is lower and there is T inversions in inferior and anterolateral leads. Then the T-waves in the inferior leads become upright. Overall, she could have had a seizure which provoked demand related troponin leaks. The presentation does not appear to be a primary type 1 OH. We need to check a tox screen as she had cocaine positive findings 3 months ago. Continue IV heparin for 48 hours if no neurological contraindications. Aspirin and statins. Fall Risk Details Current Medications: Current Medications Acetaminophen (Acetaminophen 325 Mg Tablet) 650 mg PO Q6H PRN PRN Reason: Pain, Mild (Pain Scale 1-3) Albuterol/Ipratropium (Albuterol/Iprat 2.5/0.5mg 3 Ml Ampul.Neb) 3 ml INHALE RQ4H PRN PRN Reason: Shortness of Breath/Wheezing Aspirin (Aspirin 81 Mg Tab.Chew) 81 mg PO DAILY [facility] Last Admin: 11/26/21 08:27 Dose: 81 mg Documented by: Atorvastatin Calcium (Atorvastatin Calcium 40 Mg Tablet) 40 mg PO BEDTIME [facility] Last Admin: 11/25/21 20:27 Dose: 40 mg Documented by: Baclofen (Baclofen 10 Mg Tablet) 5 mg PO BID [facility] Last Admin: 11/26/21 08:26 Dose: 5 mg Documented by: Escitalopram Oxalate (Escitalopram Oxalate 10 Mg Tablet) 10 mg PO DAILY [facility] Last Admin: 11/26/21 08:27 Dose: 10 mg Documented by: Heparin Sodium (Porcine) (Heparin Sodium,Porcine 5,000 Unit/Ml Vial) 1,500 unit 40 unit/kg (1500 unit) IVPUSH PROTOCOL BOLUS PRN; Protocol PRN Reason: 40 unit/kg - Heparin Protocol Last Admin: 11/25/21 20:04 Dose: 1,500 unit Documented by: Heparin Sodium (Porcine) (Heparin Sodium,Porcine 5,000 Unit/Ml Vial) 3,100 unit 80 unit/kg (3100 unit) IVPUSH PROTOCOL BOLUS PRN; Protocol PRN Reason: 80 unit/kg - Heparin Protocol Dextrose/Sodium Chloride (D51/2ns) 1,000 mls @ 50 mls/hr IVCONT .Q20H [facility] Last Admin: 11/26/21 11:15 Dose: 50 mls/hr Documented by: Heparin Sodium/Sodium Chloride () 25,000 unit in 250 mls @ 0 mls/hr IVCONT .Q0M [facility]; Protocol Last Titration: 11/26/21 02:35 Dose: 11 units/kg/hr, 4.26 mls/hr Documented by: Levetiracetam (Levetiracetam 500 Mg Tablet) 500 mg PO BID [facility] Last Admin: 11/26/21 08:27 Dose: 500 mg Documented by: Melatonin (Melatonin 3 Mg Tablet) 6 mg PO BEDTIME PRN PRN Reason: Insomnia Metoprolol Tartrate (Metoprolol Tartrate 12.5 Mg Halftab) 12.5 mg PO BID [facility]; Protocol Last Admin: 11/26/21 09:40 Dose: 12.5 mg Documented by: Mirtazapine (Mirtazapine 30 Mg Tablet) 30 mg PO BEDTIME [facility] Last Admin: 11/25/21 20:27 Dose: 30 mg Documented by: Omeprazole (Omeprazole 20 Mg Capsule.Dr) 20 mg PO DAILY@0630 [facility] Last Admin: 11/26/21 05:54 Dose: 20 mg Documented by: Pharmacy Consult (Consult Rx Perform Med Rec) 1 each MISCELLANE ONCE PRN PRN Reason: Consult order Senna (Sennosides 8.6 Mg Tablet) 17.2 mg PO BEDTIME PRN PRN Reason: Constipation Sodium Chloride (0.9 % Sodium Chloride Flush 3 Ml Syringe) 3 ml IVFLUSH QSHIFT [facility] Last Admin: 11/26/21 08:27 Dose: Not Given Documented by: Time Spent With Patient Time: Total time spent is greater than 50% in coordination of care (as documented) at patient's floor/unit and/or counseling patient: Time with patient: less than 15 minutes Progress Note: Quality Stroke Does the patient have a stroke diagnosis?: No Procedures Date of Service Date of Service: 11/26/21
[2021-11-26 15:15] VITALS: BP 130/56; PULSE 64; RESP 20; TEMP 36.8; O2SAT 99
[2021-11-26 15:26] LABS: PTT Heparin Drip 41.2 SEC (53-77.9)
[2021-11-26] MEDS: Heparin Sodium,Porcine 5,000 UNIT/ML VIAL 1500 UNIT IVPUSH (16:23)
[2021-11-26] MEDS: Heparin Sodium,Porcine/1/2NS 25,000 UNIT/250 ML IV.SOLN 5.03 UNIT IVCONT (16:24)
--- NOTE | 2021-11-26 17:18 | MHC.SL.SWA ---
Speech Pathologist Impression: Risk of Aspiration Due to: Dysphasia Diet Status: Liquid Consistency and Strategies for Safe Swallow: Liquid Intake Recommendation: Thin Liquid Intake Strategies: Small Sips Solid Food Consistency: Dietary Recommendations: Regular Additional Modifications to Solid Foods: Oral Medication Intake: Whole with Liquid Please contact the pharmacy regarding appropriate crushable or liquid drug formulations that are available whenever modified delivery is recommended. Compensatory Strategies and Precautions to be Taken for Safe Swallow: Sitting Upright (90 deg) Liquids from Cup Small Bites and Sips Alternate Liquids/Solids Supervision While Eating and Drinking for Safe Swallow: Total Assistance (1:1) Foods to Avoid: Swallowing Recommended Treatments: Recommendation for Speech: NA:Typical Evaluation Comment: Pt presents with oral and pharyngeal phase of swallow WNL on all food consistencies and thin liquid. Pt will need assistance setting up tray, and having food cut/prepped as Pt has L hemiparesis. Results of swallow Eval were communicated by secure text to MD, Tow Motor Driver. No further WOOD TURNER services needed at this time. NOTE: Chart review indicated BSE wanted for this Pt, however Adult SP/Lang Cog Eval in work orders by error. Frequency/Duration: Date Range for Service Req: Timeline to reassess: Expert Witness Clinican/Clinical Fellow: No Supervisory Statement: I have reviewed and agree with the student/clinical fellow's documentation: N/A Speech Language Pathologist: Jennifer Aguero M.A., CCC-WOOD TURNER
[2021-11-26 19:33] VITALS: BP 136/63; PULSE 78; RESP 18; TEMP 37.1; O2SAT 99
[2021-11-26] MEDS: Acetaminophen 325 MG TABLET 650 MG PO (20:12)
[2021-11-26] MEDS: Atorvastatin Calcium 40 MG TABLET PO (20:12)
[2021-11-26] MEDS: Mirtazapine 30 MG TABLET PO (20:13)
[2021-11-26] MEDS: 0.9 % Sodium Chloride Flush 3 ML SYRINGE IVFLUSH (20:14)
[2021-11-26 23:50] VITALS: BP 127/60; PULSE 71; RESP 18; TEMP 36.7; O2SAT 96
[2021-11-27] VITALS (7 sets, daily range): BP systolic 108–165; BP diastolic 52–86; PULSE 64–79; RESP 18–19; TEMP 36.3–37.1; O2SAT 90–98
[2021-11-27] MEDS: Dextrose 5 % and 0.45 % NaCl 1,000 ML 50 ML IVCONT (03:26)
[2021-11-27 04:44] LABS: PTT Heparin Drip 72.6 SEC (53-77.9)
[2021-11-27] MEDS: Acetaminophen 325 MG TABLET 650 MG PO ×2 (05:03→21:00)
[2021-11-27] MEDS: Omeprazole 20 MG CAPSULE.DR PO (05:03)
[2021-11-27] MEDS: Metoprolol Tartrate 12.5 MG HALFTAB PO ×2 (08:09→20:58)
[2021-11-27] MEDS: Baclofen 10 MG TABLET 5 MG PO ×2 (08:09→20:58)
[2021-11-27] MEDS: levETIRAcetam 500 MG TABLET PO ×2 (08:09→20:58)
[2021-11-27] MEDS: Aspirin 81 MG TAB.CHEW PO (08:09)
[2021-11-27] MEDS: Escitalopram Oxalate 10 MG TABLET PO (08:09)
--- NOTE | 2021-11-27 09:41 | MHC.SL.SWA ---
Speech Pathologist Impression: Tolerating current diet as indicated Risk of Aspiration Due to: as expected Dysphasia Diet Status: Liquid Consistency and Strategies for Safe Swallow: Liquid Intake Recommendation: Thin Liquid Intake Strategies: Small Sips Solid Food Consistency: Dietary Recommendations: Regular Additional Modifications to Solid Foods: Oral Medication Intake: Whole with Liquid Please contact the pharmacy regarding appropriate crushable or liquid drug formulations that are available whenever modified delivery is recommended. Compensatory Strategies and Precautions to be Taken for Safe Swallow: Sitting Upright (90 deg) Liquids from Cup Small Bites and Sips Alternate Liquids/Solids Supervision While Eating and Drinking for Safe Swallow: Total Assistance (1:1) Foods to Avoid: Swallowing Recommended Treatments: Recommendation for Speech: NA:No further TX warranted Comment: Pt presents with typical speech and swallow given presentation. Offered thin and solid with good effect. Completed entire breakfast tray before LIFT MECHANIC arrived. Frequency/Duration: no further TX is warranted Date Range for Service Req: DC follow up Timeline to reassess: NA Administrative Services Director Clinican/Clinical Fellow: No Supervisory Statement: I have reviewed and agree with the student/clinical fellow's documentation: N/A Speech Language Pathologist: Meliza Cifuentes MA, CCC-LIFT MECHANIC
--- NOTE | 2021-11-27 10:45 | P.PNCA_ITS ---
Subjective Subjective Date of Service: 11/27/21 Interval history: She denies any specific cardiac symptoms at this time. Review of Systems Review of Systems Yes all other systems are reviewed and are negative Constitutional: Reports as per HPI Eyes: Reports as per HPI Reports as per HPI Cardiovascular: Reports as per HPI, Reports no additional cardiovascular complaints, Denies acrocyanosis, Denies cool extremities, Denies chest pain, Denies leg edema, Denies lightheadedness, Denies palpitations and Denies dyspnea Respiratory: Reports no additional respiratory complaints and Denies dyspnea Gastrointestinal: Reports no additional gastrointestinal complaints Musculoskeletal: Reports no additional musculoskeletal complaints Reports system reviewed and no additional complaints, except as documented Psychiatric: Reports no additional psychiatric complaints Endocrine: Reports no additional endocrine complaints and Denies palpitations Hematologic/Lymphatic: Reports no additional hematologic/lymphatic complaints Allergic/Immunologic: Reports no additional allergic/immunologic complaints Physical Exam Vital Signs: Last Vital Signs Temp 98.0 F 11/27/21 07:09 Pulse 64 11/27/21 07:09 Resp 18 11/27/21 07:09 BP 118/59 L 11/27/21 07:09 Pulse Ox 97 11/27/21 07:09 Oxygen Flow Rate 5 11/24/21 20:07 BMI result Body Mass Index 14.6 Const General: comfortable HENMT Other: Unremarkable Neck Neck: Yes normal visual inspection Chest Chest palpation & inspection: normal inspection of the chest Resp Auscultation: clear to auscultation bilaterally Cardio Palpation: normal PMI Heart sounds: S1 normal heart sound present, S2 normal heart sound present, no gallops, no murmurs and no rubs GI Inspection: Yes normal to inspection Palpation (GI): Soft to palpation Back/Spine/Pelvis Other: unremarkable Skin General skin exam: no rashes or lesions noted Neuro Cognition (Neuro): normal cognition Extrem General: Yes normal to inspection Psych Appearance: grossly normal Objective Labs and Meds Result diagrams: 11/25/21 05:39 11/25/21 05:39 Lab results: Laboratory Results - last 24 hr 11/26/21 11/26/21 11/27/21 14:55 22:13 04:24 aPTT Heparin Protocol 41.2 L D 70.0 D 72.6 Imaging Radiologist's impression: Impressions Brain MRI 11/26/21 12:56 IMPRESSION: No acute intracranial abnormality. Chronic infarction within the left frontal and parietal lobes again demonstrated with associated left-sided Wallerian degeneration and ex vacuo dilatation the left lateral ventricle. No epileptogenic nidus identified. Progress Note: A&P Assessment and plan (1) NSTEMI (non-ST elevated myocardial infarction): Status: Acute Plan Coronary CTA reviewed from 2019. At that time, she had normal left main. She has proximal to mid LAD stenosis, moderate with calcific and mixed plaque. Apical and distal anterior hypokinesis thought to be from a subendocardial distal LAD infarct. She had mild stenosis in the circumflex and RCA. Echocardiogram this admission shows LVEF of 45-50% and wall motion abnormalities overall, similar to before. Troponins are abnormal at 6.1 followed by 191, followed by 551. EKGs reviewed. In the initial EKG, she had sinus tach at 149/Min with diffuse nonspecific ST-T changes. Old septal and possibly lateral infarct. In the subsequent EKG, rate is lower and there is T inversions in inferior and anterolateral leads. Then the T-waves in the inferior leads become upright. Since last seen yesterday, she has not had any further cardiac issues. Seems quite stable. We can stop IV heparin after 48 hours. Otherwise, continue aspirin and statins. Otherwise, after discharge we can arrange follow-up in the office if she is able to come. Fall Risk Details Current Medications: Current Medications Acetaminophen (Acetaminophen 325 Mg Tablet) 650 mg PO Q6H PRN PRN Reason: Pain, Mild (Pain Scale 1-3) Last Admin: 11/27/21 05:03 Dose: 650 mg Documented by: Albuterol/Ipratropium (Albuterol/Iprat 2.5/0.5mg 3 Ml Ampul.Neb) 3 ml INHALE RQ4H PRN PRN Reason: Shortness of Breath/Wheezing Aspirin (Aspirin 81 Mg Tab.Chew) 81 mg PO DAILY [facility] Last Admin: 11/27/21 08:09 Dose: 81 mg Documented by: Atorvastatin Calcium (Atorvastatin Calcium 40 Mg Tablet) 40 mg PO BEDTIME [facility] Last Admin: 11/26/21 20:12 Dose: 40 mg Documented by: Baclofen (Baclofen 10 Mg Tablet) 5 mg PO BID [facility] Last Admin: 11/27/21 08:09 Dose: 5 mg Documented by: Escitalopram Oxalate (Escitalopram Oxalate 10 Mg Tablet) 10 mg PO DAILY [facility] Last Admin: 11/27/21 08:09 Dose: 10 mg Documented by: Levetiracetam (Levetiracetam 500 Mg Tablet) 500 mg PO BID [facility] Last Admin: 11/27/21 08:09 Dose: 500 mg Documented by: Melatonin (Melatonin 3 Mg Tablet) 6 mg PO BEDTIME PRN PRN Reason: Insomnia Metoprolol Tartrate (Metoprolol Tartrate 12.5 Mg Halftab) 12.5 mg PO BID [facility]; Protocol Last Admin: 11/27/21 08:09 Dose: 12.5 mg Documented by: Mirtazapine (Mirtazapine 30 Mg Tablet) 30 mg PO BEDTIME [facility] Last Admin: 11/26/21 20:13 Dose: 30 mg Documented by: Omeprazole (Omeprazole 20 Mg Capsule.Dr) 20 mg PO DAILY@0630 [facility] Last Admin: 11/27/21 05:03 Dose: 20 mg Documented by: Pharmacy Consult (Consult Rx Perform Med Rec) 1 each MISCELLANE ONCE PRN PRN Reason: Consult order Senna (Sennosides 8.6 Mg Tablet) 17.2 mg PO BEDTIME PRN PRN Reason: Constipation Sodium Chloride (0.9 % Sodium Chloride Flush 3 Ml Syringe) 3 ml IVFLUSH QSHIFT [facility] Last Admin: 11/27/21 08:08 Dose: Not Given Documented by: Time Spent With Patient Time: Total time spent is greater than 50% in coordination of care (as documented) at patient's floor/unit and/or counseling patient: Time with patient: less than 15 minutes Progress Note: Quality Stroke Does the patient have a stroke diagnosis?: No Procedures Date of Service Date of Service: 11/27/21
--- NOTE | 2021-11-27 11:50 | MHC.CLN ---
F/U PT IS MODERATELY MALNOURISHED SEE FULL CLINICAL NUTRITION ASSESSMENT DATED 11/25/21 PO INTAKE 25% PER NSG DIET RX: REGULAR-APPROPRIATE NSG REPORTS PT DRINKS WELL-HAS ENSURE AT BEDSIDE ENSURE TID IN PLACE TO PROVIDE 1050KCALS, 60G PROTEIN CONTINUE TO MONITOR PO INTAKE CLOSELY
--- NOTE | 2021-11-27 13:27 | PC.NURSE ---
Skin/Wound assessment completed. Patient has a bruise on her left shoulder. Patient is independent and repositions herself. No other skin issues noted at this time.
--- NOTE | 2021-11-27 15:26 | MHC.CM.PN ---
PT is now recommending STR. Multiple referrals have been made to determine bed availability/choices for Patient. The goal is to secure a SNF bed today and initiate the [facility] auth process today, before the weekend. CM will follow.
[2021-11-27] MEDS: 0.9 % Sodium Chloride Flush 3 ML SYRINGE IVFLUSH ×2 (18:36→21:03)
[2021-11-27] MEDS: Mirtazapine 30 MG TABLET PO (20:58)
[2021-11-27] MEDS: Atorvastatin Calcium 40 MG TABLET PO (20:58)
[2021-11-28 03:30] VITALS: BP 124/52; PULSE 62; RESP 20; TEMP 36.6; O2SAT 98
[2021-11-28] MEDS: Omeprazole 20 MG CAPSULE.DR PO (06:04)
[2021-11-28 06:44] LABS: PTT Heparin Drip 38.3 SEC (53-77.9)
[2021-11-28 08:00] VITALS: BP 137/68; PULSE 63; RESP 20; TEMP 36.3; O2SAT 98
[2021-11-28] MEDS: Escitalopram Oxalate 10 MG TABLET PO (09:50)
[2021-11-28] MEDS: Metoprolol Tartrate 12.5 MG HALFTAB PO ×2 (09:50→21:23)
[2021-11-28] MEDS: 0.9 % Sodium Chloride Flush 3 ML SYRINGE IVFLUSH ×3 (09:50→21:24)
[2021-11-28] MEDS: levETIRAcetam 500 MG TABLET PO ×2 (09:50→21:23)
[2021-11-28] MEDS: Baclofen 10 MG TABLET 5 MG PO ×2 (09:50→21:24)
[2021-11-28] MEDS: Aspirin 81 MG TAB.CHEW PO (09:50)
[2021-11-28] MEDS: Enoxaparin Sodium 40 MG/0.4 ML SYRINGE SUBCUT (09:50)
--- NOTE | 2021-11-28 11:00 | P.PNIM_ITS ---
Subjective Subjective Date of Service: 11/28/21 Interval History: F/u on NSTEMI, ? seizure vs CVA.. interval history: No sezure, no chest pain, has no new complaint Review of Systems no chest pain no sob no seizure, no fever Physical Exam Vital Signs: Vital Signs: Last Vital Signs Temp 97.4 F 11/28/21 08:00 Pulse 63 11/28/21 08:00 Resp 20 11/28/21 08:00 BP 137/68 11/28/21 08:00 Pulse Ox 98 11/28/21 08:00 Oxygen Flow Rate 5 11/24/21 20:07 BMI result Body Mass Index 14.6 Const: Other: General: AO X 3, no acute distress Resp: CTA bilateral CVS: S1,S2,RRR GI: +BS, NT, no distention Skin: No rash Neuro: motor grossly intact Psych: appropriate affect Objective Data Active Medications Acetaminophen (Acetaminophen 325 Mg Tablet) 650 mg PO Q6H PRN PRN Reason: Pain, Mild (Pain Scale 1-3) Last Admin: 11/27/21 21:00 Dose: 650 mg Documented by: KAYLEEN Albuterol/Ipratropium (Albuterol/Iprat 2.5/0.5mg 3 Ml Ampul.Neb) 3 ml INHALE RQ4H PRN PRN Reason: Shortness of Breath/Wheezing Aspirin (Aspirin 81 Mg Tab.Chew) 81 mg PO DAILY [facility] Last Admin: 11/28/21 09:50 Dose: 81 mg Documented by: GAUTAM Atorvastatin Calcium (Atorvastatin Calcium 40 Mg Tablet) 40 mg PO BEDTIME [facility] Last Admin: 11/27/21 20:58 Dose: 40 mg Documented by: KAYLEEN Baclofen (Baclofen 10 Mg Tablet) 5 mg PO BID [facility] Last Admin: 11/28/21 09:50 Dose: 5 mg Documented by: GAUTAM Enoxaparin Sodium (Enoxaparin Sodium 40 Mg/0.4 Ml Syringe) 40 mg SUBCUT Q24H [facility] Last Admin: 11/28/21 09:50 Dose: 40 mg Documented by: GAUTAM Escitalopram Oxalate (Escitalopram Oxalate 10 Mg Tablet) 10 mg PO DAILY [facility] Last Admin: 11/28/21 09:50 Dose: 10 mg Documented by: GAUTAM Levetiracetam (Levetiracetam 500 Mg Tablet) 500 mg PO BID [facility] Last Admin: 11/28/21 09:50 Dose: 500 mg Documented by: GAUTAM Melatonin (Melatonin 3 Mg Tablet) 6 mg PO BEDTIME PRN PRN Reason: Insomnia Metoprolol Tartrate (Metoprolol Tartrate 12.5 Mg Halftab) 12.5 mg PO BID [facility]; Protocol Last Admin: 11/28/21 09:50 Dose: 12.5 mg Documented by: GAUTAM Mirtazapine (Mirtazapine 30 Mg Tablet) 30 mg PO BEDTIME [facility] Last Admin: 11/27/21 20:58 Dose: 30 mg Documented by: KAYLEEN Omeprazole (Omeprazole 20 Mg Capsule.Dr) 20 mg PO DAILY@0630 [facility] Last Admin: 11/28/21 06:04 Dose: 20 mg Documented by: KAYLEEN Pharmacy Consult (Consult Rx Perform Med Rec) 1 each MISCELLANE ONCE PRN PRN Reason: Consult order Senna (Sennosides 8.6 Mg Tablet) 17.2 mg PO BEDTIME PRN PRN Reason: Constipation Sodium Chloride (0.9 % Sodium Chloride Flush 3 Ml Syringe) 3 ml IVFLUSH QSHIFT [facility] Last Admin: 11/28/21 09:50 Dose: 3 ml Documented by: GAUTAM Labs CBC & Chem 7: 11/25/21 05:39 11/25/21 05:39 Labs: Laboratory Results - last 24 hr 11/28/21 05:55 aPTT Heparin Protocol 38.3 L D Assessment and Plan (1) Focal seizure: Status: Acute (2) NSTEMI (non-ST elevated myocardial infarction): Status: Acute Plan 56-year-old female with a past medical history of generalized anxiety disorder, depression, asthma/ COPD, history of TIA, 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 ?CVA versus seizure: Patient had right-sided gaze, whole-body stiffening initially; the following episode patient had right-sided gaze and twitching of the right upper and lower extremity; ?CT head showed?no acute intracranial process but noted to have chronic encephalomalacia of the left frontal lobe, extensive white matter disease/ gliosis of the frontal and parietal lobes. CT angio head and neck showed?chronic appearing occlusion of the left common carotid artery, 65% stenosis of the Dr. Segment of the mid cervical segment of the right ICA.? -Neuro recommend MRI no stroke, Keppra, EEG NSTEMI: elevated trops with some dynamic ECG changes, no pain, repeat trop --trending down. Cardiology recommending medical management with heparin for 48 hours, to cotninue ASA, BB, statin, will get echo: ?The left ventricular systolic function is mildly decreased.? ? The visually estimated ejection fraction is between 45-50%.? ? ? - The basal inferior, mid inferior, mid inferoseptal, and mid? ? anteroseptal segments are hypokinetic. ? - No obvious valvular pathology seen on this study.?hypotension:??Transient and resolved, not related to sepsis ?history of anxiety /depression: Continue home mirtazapine, citalopram History of CVA:? Reported residual mild right-sided weakness.? Patient on baclofen b.i.d..? Continue home aspirin statin Need for inpatient:PT is recommending STR, case management is working on it Quality Stroke Does the patient have a stroke diagnosis?: No VTE Prior VTE?: No VTE Risk Level:: Medical - moderate - high VTE Device Contraindication: N/A - Device Ordered VTE Drug Contraindication: Treatment Not Indicated
[2021-11-28 11:15] VITALS: PULSE 67; RESP 16; TEMP 36.5; O2SAT 99
[2021-11-28 15:41] VITALS: BP 146/71; PULSE 66; RESP 17; TEMP 37.1; O2SAT 98
[2021-11-28 15:54] LABS: Amphetamine Screen Urine Not Detected (Not Detect); Barbiturates, Urine Not Detected (Not Detect); Benzodiazepines Screen Urine Not Detected (Not Detect); Cannabinoid Screen Urine Not Detected (Not Detect); Cocaine Screen Urine Not Detected (Not Detect); Fentanyl, urine Not Detected (Not Detect); Opiate Screen Urine Not Detected (Not Detect); Phencyclidine Screen Urine Not Detected (Not Detect)
[2021-11-28 19:30] VITALS: BP 132/66; PULSE 75; RESP 18; TEMP 35.6; O2SAT 92
[2021-11-28] MEDS: Mirtazapine 30 MG TABLET PO (21:23)
[2021-11-28] MEDS: Atorvastatin Calcium 40 MG TABLET PO (21:23)
[2021-11-28] MEDS: Acetaminophen 325 MG TABLET 650 MG PO (21:26)
[2021-11-29] VITALS (8 sets, daily range): BP systolic 125–142; BP diastolic 56–64; PULSE 61–75; RESP 15–20; TEMP 36–36.4; O2SAT 94–4100
[2021-11-29] MEDS: Omeprazole 20 MG CAPSULE.DR PO (05:19)
--- NOTE | 2021-11-29 08:57 | P.PNIM_ITS ---
Subjective Subjective Date of Service: 11/29/21 Interval History: F/u on NSTEMI, ? seizure vs CVA.. interval history: No sezure, no chest pain, no other complaint Review of Systems no chest pain no sob no seizure, no fever Physical Exam Vital Signs: Vital Signs: Last Vital Signs Temp 96.8 F 11/29/21 08:00 Pulse 63 11/29/21 08:00 Resp 18 11/29/21 08:00 BP 142/61 H 11/29/21 08:00 Pulse Ox 96 11/29/21 08:00 Oxygen Flow Rate 5 11/24/21 20:07 BMI result Body Mass Index 14.6 Const: Other: General: AO X 3, no acute distress Resp: CTA bilateral CVS: S1,S2,RRR GI: +BS, NT, no distention Skin: No rash Neuro: motor grossly intact Psych: appropriate affect Objective Data Active Medications Acetaminophen (Acetaminophen 325 Mg Tablet) 650 mg PO Q6H PRN PRN Reason: Pain, Mild (Pain Scale 1-3) Last Admin: 11/28/21 21:26 Dose: 650 mg Documented by: KAYLEEN Albuterol/Ipratropium (Albuterol/Iprat 2.5/0.5mg 3 Ml Ampul.Neb) 3 ml INHALE RQ4H PRN PRN Reason: Shortness of Breath/Wheezing Aspirin (Aspirin 81 Mg Tab.Chew) 81 mg PO DAILY [facility] Last Admin: 11/28/21 09:50 Dose: 81 mg Documented by: GAUTAM Atorvastatin Calcium (Atorvastatin Calcium 40 Mg Tablet) 40 mg PO BEDTIME [facility] Last Admin: 11/28/21 21:23 Dose: 40 mg Documented by: KAYLEEN Baclofen (Baclofen 10 Mg Tablet) 5 mg PO BID [facility] Last Admin: 11/28/21 21:24 Dose: 5 mg Documented by: KAYLEEN Enoxaparin Sodium (Enoxaparin Sodium 40 Mg/0.4 Ml Syringe) 40 mg SUBCUT Q24H [facility] Last Admin: 11/28/21 09:50 Dose: 40 mg Documented by: GAUTAM Escitalopram Oxalate (Escitalopram Oxalate 10 Mg Tablet) 10 mg PO DAILY [facility] Last Admin: 11/28/21 09:50 Dose: 10 mg Documented by: GAUTAM Levetiracetam (Levetiracetam 500 Mg Tablet) 500 mg PO BID [facility] Last Admin: 11/28/21 21:23 Dose: 500 mg Documented by: KAYLEEN Melatonin (Melatonin 3 Mg Tablet) 6 mg PO BEDTIME PRN PRN Reason: Insomnia Metoprolol Tartrate (Metoprolol Tartrate 12.5 Mg Halftab) 12.5 mg PO BID [facility]; Protocol Last Admin: 11/28/21 21:23 Dose: 12.5 mg Documented by: KAYLEEN Mirtazapine (Mirtazapine 30 Mg Tablet) 30 mg PO BEDTIME [facility] Last Admin: 11/28/21 21:23 Dose: 30 mg Documented by: KAYLEEN Omeprazole (Omeprazole 20 Mg Capsule.) 20 mg PO DAILY@0630 [facility] Last Admin: 11/29/21 05:19 Dose: 20 mg Documented by: BERHANE Pharmacy Consult (Consult Rx Perform Med Rec) 1 each MISCELLANE ONCE PRN PRN Reason: Consult order Senna (Sennosides 8.6 Mg Tablet) 17.2 mg PO BEDTIME PRN PRN Reason: Constipation Sodium Chloride (0.9 % Sodium Chloride Flush 3 Ml Syringe) 3 ml IVFLUSH QSHIFT [facility] Last Admin: 11/28/21 21:24 Dose: 3 ml Documented by: KAYLEEN Labs CBC & Chem 7: 11/25/21 05:39 11/25/21 05:39 Labs: Laboratory Results - last 24 hr 11/28/21 15:16 Urine Opiates Screen Not Detected Urine Fentanyl Screen Not Detected Ur Barbiturates Screen Not Detected Ur Phencyclidine Scrn Not Detected Ur Amphetamines Screen Not Detected U Benzodiazepines Scrn Not Detected Urine Cocaine Screen Not Detected U Marijuana (THC) Screen Not Detected Assessment and Plan (1) NSTEMI (non-ST elevated myocardial infarction): Status: Acute (2) Seizure disorder: Status: Acute Plan 56-year-old female with a past medical history of generalized anxiety disorder, depression, asthma/ COPD, history of TIA, CVA with residual right-sided? 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 ?CVA versus seizure: Patient had right-sided gaze, whole-body stiffening initially; the following episode patient had right-sided gaze and twitching of the right upper and lower extremity; ?CT head showed?no acute intracranial process but noted to have chronic encephalomalacia of the left frontal lobe, extensive white matter disease/ gli osis of the frontal and parietal lobes. CT angio head and neck showed?chronic appearing occlusion of the left common carotid artery, 65% stenosis of the Dr. Segment of the mid cervical segment of the right ICA.? -Neuro recommended MRI which showed no stroke, Keppra 500 bid NSTEMI: elevated trops with some dynamic ECG changes, no pain, repeat trop--trending down. Cardiology recommending medical management with heparin for 48 hours, to cotninue ASA, BB, statin, will get echo: ?The left ventricular systolic function is mildly decreased.? ? The visually estimated ejection fraction is between 45-50%.? ? ? - The basal inferior, mid inferior, mid inferoseptal, and mid? ? anteroseptal segments are hypokinetic. ? - No obvious valvular pathology seen on this study.?hypotension:??Transient and resolved, not related to sepsis ?history of anxiety /depression: Continue home mirtazapine, citalopram History of CVA:? Reported residual mild right-sided weakness.? Patient on baclofen b.i.d..? Continue home aspirin statin Need for inpatient:PT is recommending STR, case management continue to search for placement Quality Stroke Does the patient have a stroke diagnosis?: No VTE Prior VTE?: No VTE Risk Level:: Medical - moderate - high VTE Device Contraindication: N/A - Device Ordered VTE Drug Contraindication: Treatment Not Indicated
[2021-11-29] MEDS: 0.9 % Sodium Chloride Flush 3 ML SYRINGE IVFLUSH ×3 (09:12→21:58)
[2021-11-29] MEDS: levETIRAcetam 500 MG TABLET PO ×2 (09:13→21:57)
[2021-11-29] MEDS: Enoxaparin Sodium 40 MG/0.4 ML SYRINGE SUBCUT (09:13)
[2021-11-29] MEDS: Baclofen 10 MG TABLET 5 MG PO ×2 (09:13→21:57)
[2021-11-29] MEDS: Aspirin 81 MG TAB.CHEW PO (09:14)
[2021-11-29] MEDS: Escitalopram Oxalate 10 MG TABLET PO (09:14)
[2021-11-29] MEDS: Metoprolol Tartrate 12.5 MG HALFTAB PO ×2 (09:14→21:57)
[2021-11-29] MEDS: Acetaminophen 325 MG TABLET 650 MG PO (09:23)
[2021-11-29] MEDS: Albuterol/Iprat 2.5/0.5MG 3 ML AMPUL.NEB INHALE (18:46)
[2021-11-29] MEDS: Atorvastatin Calcium 40 MG TABLET PO (21:57)
[2021-11-29] MEDS: Mirtazapine 30 MG TABLET PO (21:57)
[2021-11-30 03:47] VITALS: BP 98/56; PULSE 61; RESP 14; TEMP 36; O2SAT 92
[2021-11-30] MEDS: Omeprazole 20 MG CAPSULE.DR PO (06:16)
[2021-11-30 07:04] VITALS: BP 122/71; PULSE 68; RESP 18; TEMP 36.1; O2SAT 92
--- NOTE | 2021-11-30 08:52 | HO.PM.IMPN ---
Subjective Subjective Date of Service: 12/01/21 Interval History: F/u on NSTEMI, ? seizure vs CVA.. interval history: No seizure, no chest pain, no other complaint, no moving much out of bed Review of Systems no chest pain no sob no seizure, no fever Physical Exam Vital Signs: Vital Signs: Last Vital Signs Temp 97 F 11/30/21 07:04 Pulse 68 11/30/21 07:04 Resp 18 11/30/21 07:04 BP 122/71 11/30/21 07:04 Pulse Ox 92 11/30/21 07:04 Oxygen Flow Rate 5 11/24/21 20:07 BMI result Body Mass Index 14.6 Const: Other: General: AO X 3, no acute distress Resp: CTA bilateral CVS: S1,S2,RRR GI: +BS, NT, no distention Skin: No rash Neuro: motor grossly intact Psych: appropriate affect Objective Data Active Medications Acetaminophen (Acetaminophen 325 Mg Tablet) 650 mg PO Q6H PRN PRN Reason: Pain, Mild (Pain Scale 1-3) Last Admin: 11/29/21 09:23 Dose: 650 mg Documented by: ELIZABETH Albuterol/Ipratropium (Albuterol/Iprat 2.5/0.5mg 3 Ml Ampul.Neb) 3 ml INHALE RQ4H PRN PRN Reason: Shortness of Breath/Wheezing Last Admin: 11/29/21 18:46 Dose: 3 ml Documented by: ES Aspirin (Aspirin 81 Mg Tab.Chew) 81 mg PO DAILY [facility] Last Admin: 11/29/21 09:14 Dose: 81 mg Documented by: ELIZABETH Atorvastatin Calcium (Atorvastatin Calcium 40 Mg Tablet) 40 mg PO BEDTIME [facility] Last Admin: 11/29/21 21:57 Dose: 40 mg Documented by: IQRA Baclofen (Baclofen 10 Mg Tablet) 5 mg PO BID [facility] Last Admin: 11/29/21 21:57 Dose: 5 mg Documented by: IQRA Enoxaparin Sodium (Enoxaparin Sodium 40 Mg/0.4 Ml Syringe) 40 mg SUBCUT Q24H [facility] Last Admin: 11/29/21 09:13 Dose: 40 mg Documented by: ELIZABETH Escitalopram Oxalate (Escitalopram Oxalate 10 Mg Tablet) 10 mg PO DAILY [facility] Last Admin: 11/29/21 09:14 Dose: 10 mg Documented by: ELIZABETH Levetiracetam (Levetiracetam 500 Mg Tablet) 500 mg PO BID [facility] Last Admin: 11/29/21 21:57 Dose: 500 mg Documented by: IQRA Melatonin (Melatonin 3 Mg Tablet) 6 mg PO BEDTIME PRN PRN Reason: Insomnia Metoprolol Tartrate (Metoprolol Tartrate 12.5 Mg Halftab) 12.5 mg PO BID [facility]; Protocol Last Admin: 11/29/21 21:57 Dose: 12.5 mg Documented by: IQRA Mirtazapine (Mirtazapine 30 Mg Tablet) 30 mg PO BEDTIME [facility] Last Admin: 11/29/21 21:57 Dose: 30 mg Documented by: IQRA Omeprazole (Omeprazole 20 Mg Capsule.Dr) 20 mg PO DAILY@0630 [facility] Last Admin: 11/30/21 06:16 Dose: 20 mg Documented by: IQRA Pharmacy Consult (Consult Rx Perform Med Rec) 1 each MISCELLANE ONCE PRN PRN Reason: Consult order Senna (Sennosides 8.6 Mg Tablet) 17.2 mg PO BEDTIME PRN PRN Reason: Constipation Sodium Chloride (0.9 % Sodium Chloride Flush 3 Ml Syringe) 3 ml IVFLUSH QSHIFT [facility] Last Admin: 11/29/21 21:58 Dose: 3 ml Documented by: IQRA Labs CBC & Chem 7: 11/25/21 05:39 11/25/21 05:39 Assessment and Plan (1) NSTEMI (non-ST elevated myocardial infarction): Status: Acute (2) Seizure disorder: Status: Acute Plan 56-year-old female with a past medical history of generalized anxiety disorder, depression, asthma/ COPD, history of TIA, 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 ?CVA versus seizure: Patient had right-sided gaze, whole-body stiffening initially; the following episode patient had right-sided gaze and twitching of the right upper and lower extremity; ?CT head showed?no acute intracranial process but noted to have chronic encephalomalacia of the left frontal lobe, extensive white matter disease/ gliosis of the frontal and parietal lobes. CT angio head and neck showed?chronic appearing occlusion of the left common carotid artery, 65% stenosis of the Dr. Segment of the mid cervical segment of the right ICA.? -Neuro recommended MRI which showed no stroke, Keppra 500 bid NSTEMI: elevated trops with some dynamic ECG changes, no pain, repeat trop--trending down. Cardiology recommending medical management with heparin for 48 hours, to cotninue ASA, BB, statin, will get echo: ?The left ventricular systolic function is mildly decreased.? ? The visually estimated ejection fraction is between 45-50%.? ? ? - The basal inferior, mid inferior, mid inferoseptal, and mid? ? anteroseptal segments are hypokinetic. ? - No obvious valvular pathology seen on this study.?hypotension:??Transient and resolved, not related to sepsis ?history of anxiety /depression: Continue home mirtazapine, citalopram History of CVA:? Reported residual mild right-sided weakness.? Patient on baclofen b.i.d..? Continue home aspirin statin Need for inpatient:PT is recommending STR due to weakness, case management continue to search for placement,, PT to reassess to see if can go home instead Quality Stroke Does the patient have a stroke diagnosis?: No VTE Prior VTE?: No VTE Risk Level:: Medical - moderate - high VTE Device Contraindication: N/A - Device Ordered VTE Drug Contraindication: Treatment Not Indicated
[2021-11-30] MEDS: Baclofen 10 MG TABLET 5 MG PO ×2 (10:06→21:13)
[2021-11-30] MEDS: Metoprolol Tartrate 12.5 MG HALFTAB PO ×2 (10:06→21:14)
[2021-11-30] MEDS: levETIRAcetam 500 MG TABLET PO ×2 (10:06→21:14)
[2021-11-30] MEDS: Acetaminophen 325 MG TABLET 650 MG PO ×2 (10:06→17:23)
[2021-11-30] MEDS: Enoxaparin Sodium 40 MG/0.4 ML SYRINGE SUBCUT (10:07)
[2021-11-30] MEDS: 0.9 % Sodium Chloride Flush 3 ML SYRINGE IVFLUSH ×2 (10:07→16:23)
[2021-11-30] MEDS: Aspirin 81 MG TAB.CHEW PO (10:07)
[2021-11-30] MEDS: Escitalopram Oxalate 10 MG TABLET PO (10:07)
[2021-11-30 11:21] VITALS: BP 117/58; PULSE 88; RESP 18; TEMP 36.1; O2SAT 94
--- NOTE | 2021-11-30 13:43 | MHC.CLN ---
F/U PT IS MODERATELY MALNOURISHED DIET=REGULAR-APPROPRIATE. ENSURE TID PROVIDES ADDITIONAL 1050 KCAL, 60 G PROTEIN. ACCEPTS SUPPLEMENT AND PREFERS CHOCOLATE. TODAY AT [facility] 100% OF SANDWICH. INTAKE VARIABLE. CONTINUE TO MONITOR PO INTAKE CLOSELY
[2021-11-30 14:58] VITALS: BP 110/63; PULSE 75; RESP 18; TEMP 36.1; O2SAT 91
[2021-11-30 19:19] VITALS: BP 124/59; PULSE 76; RESP 18; TEMP 36.7; O2SAT 97
[2021-11-30] MEDS: Atorvastatin Calcium 40 MG TABLET PO (21:14)
[2021-11-30] MEDS: Mirtazapine 30 MG TABLET PO (21:14)
[2021-12-01] VITALS: BP 135/81; PULSE 70; RESP 16; TEMP 36.2; O2SAT 97
[2021-12-01] MEDS: 0.9 % Sodium Chloride Flush 3 ML SYRINGE IVFLUSH ×2 (00:44→08:48)
[2021-12-01 04:00] VITALS: BP 126/50; PULSE 67; RESP 16; TEMP 36.3; O2SAT 99
[2021-12-01] MEDS: Omeprazole 20 MG CAPSULE.DR PO (06:31)
[2021-12-01 07:00] VITALS: BP 134/60; PULSE 64; RESP 16; TEMP 35.5; O2SAT 98
[2021-12-01] MEDS: Metoprolol Tartrate 12.5 MG HALFTAB PO (08:48)
[2021-12-01] MEDS: Enoxaparin Sodium 40 MG/0.4 ML SYRINGE SUBCUT (08:48)
[2021-12-01] MEDS: Aspirin 81 MG TAB.CHEW PO (08:48)
[2021-12-01] MEDS: levETIRAcetam 500 MG TABLET PO (08:48)
[2021-12-01] MEDS: Acetaminophen 325 MG TABLET 650 MG PO (08:48)
[2021-12-01] MEDS: Escitalopram Oxalate 10 MG TABLET PO (08:48)
[2021-12-01] MEDS: Baclofen 10 MG TABLET 5 MG PO (08:49)
--- NOTE | 2021-12-01 10:17 | P.PNIM_ITS ---
Subjective Subjective Date of Service: 12/01/21 Interval History: F/u on NSTEMI, ? seizure vs CVA.. interval history: No seizure, no chest pain, no new issue Review of Systems no chest pain no sob no seizure, no fever Physical Exam Vital Signs: Vital Signs: Last Vital Signs Temp 96 F L 12/01/21 07:00 Pulse 64 12/01/21 07:00 Resp 16 12/01/21 07:00 BP 134/60 12/01/21 07:00 Pulse Ox 98 12/01/21 07:00 Oxygen Flow Rate 5 11/24/21 20:07 BMI result Body Mass Index 14.6 Const: Other: General: AO X 3, no acute distress Resp: CTA bilateral CVS: S1,S2,RRR GI: +BS, NT, no distention Skin: No rash Neuro: motor grossly intact Psych: appropriate affect Objective Data Active Medications Acetaminophen (Acetaminophen 325 Mg Tablet) 650 mg PO Q6H PRN PRN Reason: Pain, Mild (Pain Scale 1-3) Last Admin: 12/01/21 08:48 Dose: 650 mg Documented by: KAYLA Albuterol/Ipratropium (Albuterol/Iprat 2.5/0.5mg 3 Ml Ampul.Neb) 3 ml INHALE RQ4H PRN PRN Reason: Shortness of Breath/Wheezing Last Admin: 11/29/21 18:46 Dose: 3 ml Documented by: ES Aspirin (Aspirin 81 Mg Tab.Chew) 81 mg PO DAILY [facility] Last Admin: 12/01/21 08:48 Dose: 81 mg Documented by: KAYLA Atorvastatin Calcium (Atorvastatin Calcium 40 Mg Tablet) 40 mg PO BEDTIME [facility] Last Admin: 11/30/21 21:14 Dose: 40 mg Documented by: BERNARDO Baclofen (Baclofen 10 Mg Tablet) 5 mg PO BID [facility] Last Admin: 12/01/21 08:49 Dose: 5 mg Documented by: KAYLA Enoxaparin Sodium (Enoxaparin Sodium 40 Mg/0.4 Ml Syringe) 40 mg SUBCUT Q24H [facility] Last Admin: 12/01/21 08:48 Dose: 40 mg Documented by: KAYLA Escitalopram Oxalate (Escitalopram Oxalate 10 Mg Tablet) 10 mg PO DAILY [facility] Last Admin: 12/01/21 08:48 Dose: 10 mg Documented by: KAYLA Levetiracetam (Levetiracetam 500 Mg Tablet) 500 mg PO BID [facility] Last Admin: 12/01/21 08:48 Dose: 500 mg Documented by: KAYLA Melatonin (Melatonin 3 Mg Tablet) 6 mg PO BEDTIME PRN PRN Reason: Insomnia Metoprolol Tartrate (Metoprolol Tartrate 12.5 Mg Halftab) 12.5 mg PO BID [facility]; Protocol Last Admin: 12/01/21 08:48 Dose: 12.5 mg Documented by: KAYLA Mirtazapine (Mirtazapine 30 Mg Tablet) 30 mg PO BEDTIME [facility] Last Admin: 11/30/21 21:14 Dose: 30 mg Documented by: BERNARDO Omeprazole (Omeprazole 20 Mg Capsule.Dr) 20 mg PO DAILY@0630 [facility] Last Admin: 12/01/21 06:31 Dose: 20 mg Documented by: [place] Pharmacy Consult (Consult Rx Perform Med Rec) 1 each MISCELLANE ONCE PRN PRN Reason: Consult order Senna (Sennosides 8.6 Mg Tablet) 17.2 mg PO BEDTIME PRN PRN Reason: Constipation Sodium Chloride (0.9 % Sodium Chloride Flush 3 Ml Syringe) 3 ml IVFLUSH QSHIFT [facility] Last Admin: 12/01/21 08:48 Dose: 3 ml Documented by: KAYLA Labs CBC & Chem 7: 11/25/21 05:39 11/25/21 05:39 Assessment and Plan (1) NSTEMI (non-ST elevated myocardial infarction): Status: Acute (2) Seizure disorder: Status: Acute Plan 56-year-old female with a past medical history of generalized anxiety disorder, depression, asthma/ COPD, history of TIA, 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 ?CVA versus seizure: Patient had right-sided gaze, whole-body stiffening initially; the following episode patient had right-sided gaze and twitching of the right upper and lower extremity; ?CT head showed?no acute intracranial process but noted to have chronic encephalomalacia of the left frontal lobe, extensive white matter disease/ gliosis of the frontal and parietal lobes. CT angio head and neck showed?chronic appearing occlusion of the left common carotid artery, 65% stenosis of the Dr. Segment of the mid cervical segment of the right ICA.? -Neuro recommended MRI which showed no stroke, Keppra 500 bid NSTEMI: elevated trops with some dynamic ECG changes, no pain, repeat trop--trending down. Cardiology recommending medical management with heparin for 48 hours, to cotninue ASA, BB, statin, will get echo: ?The left ventricular systolic function is mildly decreased.? ? The visually estimated ejection fraction is between 45-50%.? ? ? - The basal inferior, mid inferior, mid inferoseptal, and mid? ? anteroseptal segments are hypokinetic. ? - No obvious valvular pathology seen on this study.?hypotension:??Transient and resolved, not related to sepsis ?history of anxiety /depression: Continue home mirtazapine, citalopram History of CVA:? Reported residual mild right-sided weakness.? Patient on baclofen b.i.d..? Continue home aspirin statin Need for inpatient:PT is recommending STR due to weakness, case management continue to search for placement, waiting for placement Quality Stroke Does the patient have a stroke diagnosis?: No VTE Prior VTE?: No VTE Risk Level:: Medical - moderate - high VTE Device Contraindication: N/A - Device Ordered VTE Drug Contraindication: Treatment Not Indicated
[2021-12-01 11:09] VITALS: BP 148/74; PULSE 88; RESP 18; TEMP 36.6; O2SAT 92
--- NOTE | 2021-12-01 14:44 | W.MHC.F2F ---
Service Date Service Date: 12/01/21 Encounter Date of encounter: 12/01/21 Reasons for Services Signs and symptoms assessed: weakness, following seizure Reason for intermediate: neurological assessment Reason for physical therapy: home safety and mobility, therapeutic exercises and gait/transfer training Homebound: Leaving the home is medically contraindicated at this time without the asist of a device and/or another person due th the listed conditions above and below. Reason homebound: unsteady gait / fall risk and fall risk related to blood pressure changes Homebound supporting statement: Homebound due to weakness post hospitalization for seizure and heart attack with history of stroke and therefore needs the assitance of another person Certification: Based on the above findings, I certify that this patient is confined to the home and needs intermittent intermediate care, physical therapy and/or speech therapy, or continues to need occupational therapy. The patient is under my care, and I have initiated the establishment of the plan of care. The patient will be followed by a physician who will periodically review the plan of care.
--- NOTE | 2021-12-01 14:48 | PM.DS ---
DS: Providers Provider Date of Service: 01/01/22 Date of admission: 11/24/21 20:59 Primary care physician: Brianna Gonzalez MD Consults: 11/24/21 21:03 Consult to Neurology Routine Consulting Provider: Juliana Gonzalez Reason for consultation: seizure 11/25/21 10:41 Consult to Cardiology Routine Consulting Provider: David Munoz Reason for consultation: nstemi Has provider been notified: Yes DS: Diagnosis Discharge Diagnosis (1) NSTEMI (non-ST elevated myocardial infarction): Status: Resolved (2) Seizure disorder: Status: Resolved DS: Summary Time Spent with Patient Time attestation: Total time spent providing and/or coordinating discharge services: Discharge coordination time: Greater than 30 minutes Quality: Stroke Does the patient have a stroke diagnosis?: No Physical Exam Vital Signs: Vital Signs: Last Vital Signs Temp 98 F 12/01/21 11:09 Pulse 88 12/01/21 11:09 Resp 18 12/01/21 11:09 BP 148/74 H 12/01/21 11:09 Pulse Ox 92 12/01/21 11:09 Oxygen Flow Rate 5 11/24/21 20:07 BMI result Body Mass Index 14.6 DS: Data Data Completed and Pending Completed studies during hospitalization [Text1]: Procedures Assistance with Respiratory Ventilation, 24-96 Consecutive Hours, Continuous Positive Airway Pressure (08/16/21) Insertion of Infusion Device into Superior Vena Cava, Percutaneous Approach (08/16/21) Introduction of Remdesivir Anti-infective into Central Vein, Percutaneous Approach, [employer] (08/16/21) Discharge Plan Discharge Anticipated Discharge Date/Time: 12/01/21 14:39 Patient Disposition: Home Health Service Discharge Diagnosis: Seizure, NSTEMI Referrals: [place] visiting nurses [Other] - 1 Week Physician,Unknown J [Physician] - 1 Week Discharge Medications: New metoprolol tartrate 25 mg tablet 25 mg PO BID Qty: 60 0RF levetiracetam 500 mg Tablet 500 mg PO BID Qty: 60 1RF aspirin 81 mg Tablet,Chewable 81 mg PO DAILY Qty: 120 0RF Rx Instructions: offer OTC first Continued escitalopram oxalate [Lexapro] 10 mg tablet 10 mg PO DAILY 90 Days Qty: 90 0RF omeprazole 20 mg capsule,delayed release(DR/EC) 20 mg PO DAILY 90 Days Qty: 90 3RF atorvastatin 40 mg tablet 40 mg PO BEDTIME Qty: 30 0RF famotidine 20 mg tablet 20 mg PO BID Qty: 60 0RF albuterol sulfate 90 mcg/actuation HFA aerosol inhaler 2 puff PO Q6H PRN (Reason: bronchospasm) 30 Days Qty: 6.7 0RF baclofen 10 mg tablet 0.5 tab PO BID 0RF Qvar RediHaler 80 mcg/actuation Hfa Aerosol Breath Activated 1 inh INHALATION BID 0RF No Action mirtazapine 30 mg tablet 30 mg PO BEDTIME 90 Days Qty: 90 0RF ipratropium-albuterol 0.5 mg-3 mg(2.5 mg base)/3 mL solution for nebulization 1 ml inhalation TID PRN (Reason: shortness of breath) 30 Days Qty: 180 3RF Discharge Orders: Discharge Order (Routine); Ordered 12/01/21 Ordered By: Berlin Garcia Diet: advance to usual diet Activity on Discharge: As tolerated Stand Alone Forms: Patient Portal Discharge page Care Plan Goals: Full recovery from NSTEMi, seizure Health Concerns: seizure, heart attack Plan of Treatment: Take aspirin, metoprolol and lipitor for heart condition Take Keppra as directed for seizure Follow up with your Doctor in a week, call for appointment Assessment: as above Discharge Date/Time: 12/01/21 21:20
--- NOTE | 2021-12-01 14:59 | MHC.CM.PN ---
physical therapy is now recomemending home with servies for pt pt is agreeable as is don peraza who will be staying with pt
== END 2021-12-01 21:20 | disposition home health service (06) | DRG 53 ==
LOC: HO.ED 21:03 → HO.EDOVER 21:15 → HO.IMC 11-25 12:12 → HO.S3 11-29 03:11
PROVIDERS: Admitting Provider Hospitalist; Emergency Provider Emergency Medicine; PCP Internal Medicine; Visit Provider Internal Medicine
DX: G40.909 Epilepsy, unspecified, not intractable, without status epilepticus (principal); J96.12 Chronic respiratory failure with hypercapnia; E44.0 Moderate protein-calorie malnutrition; I95.9 Hypotension, unspecified; G93.89 Other specified disorders of brain; Z99.81 Dependence on supplemental oxygen; I69.951 Hemiplegia and hemiparesis following unspecified cerebrovascular disease affecting right dominant side; E78.5 Hyperlipidemia, unspecified; F32.A Depression, unspecified; Z20.822 Contact with and (suspected) exposure to COVID-19; F41.1 Generalized anxiety disorder; Z86.16 Personal history of COVID-19; F17.210 Nicotine dependence, cigarettes, uncomplicated; Z71.6 Tobacco abuse counseling; Z68.1 Body mass index [BMI] 19.9 or less, adult; Z91.013 Allergy to seafood; Z88.0 Allergy status to penicillin; Z79.82 Long term (current) use of aspirin; Z79.899 Other long term (current) drug therapy
CPT/HCPCS: 36415; 70450; 70496; 70498; 70551; 80048; 80061; 80307; 82550; 82947; 83880; 84484; 85025; 85610; 85730; 87635; 92610; 93005; 93306; 94640; 95816; 96365; 96375; 97116; 97163; 97167; 97530; 97535; 99285; J1650; J1953; J2060; Q9967

== ENCOUNTER 2021-12-09 10:36 | Outpatient (REF) | payer OTHER, SELFPAY ==
[2021-12-09 11:42] LABS: MANUAL DIFF FLAG NO
[2021-12-09 11:56] LABS: Basophils Absolute Auto 0.1 X10*3/uL (0.0-0.2); Basophils Percent Auto 0.8 % (0-2); Eosinophils Absolute Auto 0.2 X10*3/uL (0.0-0.4); Eosinophils Percent Auto 2.7 % (0-4); Hematocrit 38.7 % (37.0-47.0); Imm Gran Abs Auto 0.01 X10*3/uL (0.00-0.03); Imm Gran Pct Auto 0.1 % (0.0-0.4); Lymphocytes Absolute Auto 2.9 X10*3/uL (1.2-4.9); Lymphocytes Percent Auto 39.8 % (20-40); Mean Corpuscular Hemoglobin 26.6 pg (27.0-33.0); Mean Corpuscular Volume 85.8 fL (80.0-98.0); Mean Platelet Volume 10.6 fL (9.4-12.3); Monocytes Absolute Auto 0.8 X10*3/uL (0.1-1.2); Monocytes Percent Auto 11.1 % (2-11); Neutrophils Absolute Auto 3.4 x10*3/uL (2.0-8.3); Neutrophils Percent Auto 45.5 % (45-73); Platelet Count 430 X10*3/uL (160-400); Red Blood Count 4.51 X10*6/uL (4.20-5.50); Red Cell Distribution Width 14.5 % (11.0-16.0); White Blood Count 7.4 X10*3/uL (4.8-10.8)
[2021-12-09 12:43] LABS: Ferritin 70 ng/mL (10-250); TSH reflex Free T4 1.75 uIU/mL (0.32-4.0)
[2021-12-09 12:44] LABS: Vitamin B12 265 pg/mL (200-900)
[2021-12-09 13:22] LABS: Alanine Aminotransferase 14 U/L (0-31); Albumin Level 4.5 g/dL (3.5-5.0); Alkaline Phosphatase 76 U/L (39-117); Anion Gap 17 (12-20); Aspartate Amino Transferase 16 U/L (5-31); Bilirubin Total 0.3 mg/dL (0.0-1.0); Blood Urea Nitrogen 13 mg/dL (9-16); Calcium 10.1 mg/dL (8.4-10.2); Carbon Dioxide 23 mmol/L (22-29); Chloride 101 mmol/L (96-108); Estimated Glomerular Filt Rate > 60; Glucose Random 45 mg/dL (60-115); Potassium 4.5 mmol/L (3.3-5.1); Sodium 136 mmol/L (135-145); Total Protein 7.6 g/dL (6.5-8.0)
== END 2021-12-09 10:37 | disposition home or self-care (01) ==
LOC: HO.HMGCLDS 10:36
PROVIDERS: Visit Provider Internal Medicine
DX: D64.9 Anemia, unspecified (principal); I42.9 Cardiomyopathy, unspecified; J44.9 Chronic obstructive pulmonary disease, unspecified; Z99.81 Dependence on supplemental oxygen
CPT/HCPCS: 36415; 80053; 82607; 82728; 84443; 85025

== ENCOUNTER 2021-12-26 15:49 | Outpatient (REF) | payer OTHER, SELFPAY ==
[2021-12-26 16:00] LABS: Appearance Urine CLEAR; Color Urine YELLOW; Glucose Urine UA NEG (NEG); Leukocyte Esterase Urine NEG (NEG); Nitrite Urine NEG (NEG); Specific Gravity - Urine 1.015 (1.005-1.025); Urine Blood NEG (NEG); Urine Ketones NEG (NEG); Urine Protein NEG (NEG-TRACE)
== END 2021-12-26 15:50 | disposition home or self-care (01) ==
LOC: HO.LNP 15:49
PROVIDERS: Visit Provider Internal Medicine
DX: R30.0 Dysuria (principal); M54.50 Low back pain, unspecified
CPT/HCPCS: 81003

== ENCOUNTER 2022-09-20 18:16 | Inpatient (IN) | payer OTHER, SELFPAY ==
--- NOTE | ~2022-09-20 | XR_ITS ---
EXAMINATION: XR CHEST CLINICAL INFORMATION: SOB. COMPARISON: CT chest 08/16/2021 and chest x-ray 08/16/2021. TECHNIQUE: Frontal view of the chest was obtained. FINDINGS: Lungs are hyperinflated without acute pneumonic consolidation. There is patchy scattered bilateral parahilar and lower lobe opacities. Some curly B lines are seen and right lung base. There is bilateral bronchial wall thickening. There is no pleural effusion. The heart size and pulmonary vascularity is normal. No gross bony deformity seen. XR/XR chest 1V IMPRESSION: Hyperinflated lungs with persistent increase bilateral parahilar and lower lobe opacities likely residual inflammatory or infectious process from previous exam 08/16/2021.
[2022-09-20 18:21] VITALS: BP 187/68; PULSE 120; PULSE 140; RESP 17; TEMP 37.2; O2SAT 100; O2SAT 88; BMI 17.9
--- NOTE | 2022-09-20 18:48 | ECG_ITS ---
Test Reason : DYSPENA Blood Pressure : / mmHG Vent. Rate : 107 BPM Atrial Rate : 107 BPM P-R Int : 162 ms QRS Dur : 084 ms QT Int : 334 ms P-R-T Axes : 076 094 074 degrees QTc Int : 445 ms Sinus tachycardia Rightward axis Minimal voltage criteria for LVH, may be normal variant ( Samuel product ) Borderline ECG When compared with ECG of 24-NOV-2021 23:13, T wave inversion no longer evident in Anterolateral leads Referred By: Paulette Dixon Electronically Signed By:Mitch An
--- NOTE | 2022-09-20 18:51 | ED_ITS ---
HPI - SOB/Dyspnea General Chief Complaint: Dyspnea Stated Complaint: difficulty breathing Time Seen by Provider: 09/20/22 18:41 Source: patient and EMS Mode of arrival: EMS Limitations: no limitations History of Present Illness HPI Narrative: Patient comes to the emergency room complaining of shortness of breath. Patient has history of COPD, uses 2.5 L at home. Patient states that she has been more short of breath than usual starting today. Patient denies any recent URI or UTI symptoms, no fever or chills. Per EMS, patient's oxygen saturation was in the high 80s on her usual 3 L. here in the emergency room, patient speaking full sentences, feeling short of breath, no chest pain, no abdominal pain. Oxygen saturation 86% on 3 L, 88% on 6 L, patient was switched to an OxyMask at 9 L, saturating 92%. Related Data Home Medications Medication Instructions Recorded Confirmed beclomethasone dipropionate 80 1 inh inhalation BID 11/24/21 07/09/22 mcg/actuation HFA breath activated aerosol (Qvar RediHaler) Previous Rx's Medication Instructions Recorded escitalopram oxalate 10 mg tablet 10 mg PO DAILY 90 days #90 tabs 06/29/21 (Lexapro) aspirin 81 mg chewable tablet 81 mg PO DAILY #120 tabs 04/19/22 baclofen 5 mg tablet 5 mg PO BID 30 days #60 tabs 04/19/22 levetiracetam 500 mg tablet 500 mg PO BID #60 tabs 04/23/22 famotidine 20 mg tablet 20 mg PO BID #60 tabs 05/10/22 ipratropium 0.5 mg-albuterol 3 mg 1 ml inhalation TID PRN shortness 06/01/22 (2.5 mg base)/3 mL nebulization of breath 30 days #180 mL soln metoprolol tartrate 25 mg tablet 25 mg PO BID #60 tabs 06/29/22 albuterol sulfate 90 mcg/actuation 2 puff PO Q6H PRN bronchospasm 30 08/04/22 aerosol inhaler days #6.7 grams omeprazole 20 mg capsule,delayed 20 mg PO DAILY 90 days #90 caps 08/04/22 release atorvastatin 40 mg tablet 40 mg PO BEDTIME 90 days #90 tabs 08/10/22 mirtazapine 30 mg tablet 30 mg PO BEDTIME 30 days #30 tabs 12/09/22 Allergies Allergy/AdvReac Type Severity Reaction Status Date / Time crab Allergy Unknown Hives Verified 07/09/22 15:15 penicillin V Allergy Unknown hives Verified 07/09/22 15:15 Penicillins [PENICILLINS] Allergy Unknown hives Verified 07/09/22 15:15 SEASONAL ALLERGIES Allergy Mild RUNNY NOSE Uncoded 12/09/21 10:08 Review of Systems Review of Systems: Constitutional : No Weight loss, No Fever, No Chills, No Night Sweats, No Fatigue, No Malaise ENT/Mouth : No Hearing loss, No Ear Pain, No Nasal Congestion, No Sinus Pain, No Hoarseness, No sore throat, No Rhinorrhea, No Swallowing Difficulty Eyes: No Eye Pain, No Swelling, No Redness, No Foreign Body, No Discharge, No Vision Changes Cardiovascular : No Chest Pain, no orthopnea no edema no palpitation Respiratory : No Cough, No Sputum, complaining of wheezing, shortness of breath worse with exertion Gastrointestinal : No Nausea, No Vomiting, No Diarrhea, No Constipation, No abdominal Pain, No Hematochezia, No Melena Genitourinary : no irregular bleeding, No Dysuria, No Urinary Frequency, No Hematuria, No Urinary Incontinence, No Urgency, No Flank Pain, No Urinary Flow Changes, No Hesitancy Musculoskeletal : No joint pain, No Myalgias, No Joint Swelling Skin : No Skin Lesions, No rash Neuro : No Weakness, No Numbness, No Paresthesias, No Loss of Consciousness, No Dizziness, No Headache Psych : No Anxiety/Panic, No Depression, No SI/HI/AH/VH, No Social Issues, Heme/Lymph: No Bruising, No Bleeding,No Lymphadenopathy Endocrine : No Polyuria, No Polydipsia, No Temperature Intolerance [facility] Past Medical History Medical History Acute CHF (congestive heart failure) Anxiety, generalized Apical myocardial infarction Arthrosis Asthma, moderate Asymptomatic carotid artery stenosis with infarction Chronic GERD Cocaine abuse COPD mixed type COVID-19 virus infection Difficulty sleeping Environmental allergies Exacerbation of asthma Hemiparesis affecting right side as late effect of cerebrovascular accident Hypercapnic respiratory failure, chronic Lipid disorder Oxygen dependent Respiratory failure Tobacco abuse Surgical History History of tonsillectomy and adenoidectomy Family History Family History Father Substance abuse Mother Brain cancer Maternal Grandfather History of heart attack Maternal Grandmother History of heart attack Paternal Grandfather No problems noted. Paternal Grandmother No problems noted. Brother No problems noted. Brother No problems noted. Son No problems noted. Daughter No problems noted. Other Mental health disorder Social History Social History Household Members: Children Housing: Apartment Do you presently have visiting nurse or other home services: No Patient Tobacco Use Status: Former Tobacco user Tobacco use type: Cigarette Years Smoked: 35 years e-Cigarette/Vaping Use: Never Used Advance Directives: Yes Advance Directives on File: Yes Advance Directives Date on File: 11/25/21 service: No Current occupational status: disabled Cognitive needs: No Hearing needs: No Vision needs: No Physical Exam Vital Signs: Vital Signs: Last Vital Signs Temp 99.2 F 09/20/22 21:54 Pulse 102 H 09/20/22 21:54 Resp 16 09/20/22 21:54 BP 152/68 H 09/20/22 21:54 Pulse Ox 94 09/20/22 21:54 O2 Del Method 09/20/22 21:54 O2 Flow Rate 2 09/20/22 21:54 BMI result Body Mass Index 17.9 Const: Other: Appearance: Alert. Oriented X3. No acute distress. Eyes: Pupils equal, round and reactive to light. ENT: Pharynx normal. Neck: Normal inspection. Neck supple. No lymph nodes noted. No crepitus CVS: Normal heart rate and rhythm. Pulses normal. Normal S1 and S2 Respiratory: No respiratory distress. Speaking in full sentences, oxygen saturation drops to the low 80s on 6 L while talking, recuperates when she is not talking and at rest. Decreased breath sounds bilaterally, no wheezing Abdomen: Soft and nontender. No rigidity. No distention. Skin: Skin warm and dry. Normal skin color. Normal skin turgor. Extremities: No lower extremity edema. No Lacerations. No Rash Neuro: Oriented X 3. No motor deficit. No sensory deficit. Moving all extremities. No slurred speech. CN 2 through 12 grossly intact Psych: calm, cooperative, normal affect Course Course Course Narrative: EMS gave Solu-Medrol IM, the pain will give it IV, magnesium, our long neb treatment and fluids. All of the labs are pending. Medications Administered Discontinued Medications Generic Name Dose Route Start Last Admin Trade Name Patricio PRN Reason Stop Dose Admin Albuterol Sulfate 10 mg 09/20/22 18:48 09/20/22 19:12 Albuterol Sulfate (0.083%) 2.5 Mg/3 Ml Vial.Neb INHALE 09/20/22 18:49 10 mg ONCE ONE Administration Sodium Chloride 1,000 mls @ 999 mls/hr 09/20/22 18:48 09/20/22 19:59 Ns IVCONT 09/20/22 19:48 Infused .Q1H1M ONE Infusion Magnesium Sulfate 2 gm in 50 mls @ 25 mls/hr 09/20/22 18:48 09/20/22 20:52 Magnesium Sulfate/H2o IV 09/20/22 20:47 Infused ONCE ONE Infusion Levofloxacin 250 mg in 50 mls @ 50 mls/hr 09/20/22 21:36 09/20/22 22:29 Levaquin IV 09/20/22 22:35 50 mls/hr ONCE ONE Administration Sodium Chloride 1,000 mls @ 999 mls/hr 09/20/22 21:36 09/20/22 22:29 Ns IVCONT 09/20/22 22:36 999 mls/hr .Q1H1M ONE Administration Methylprednisolone Sodium Succinate 125 mg 09/20/22 18:48 09/20/22 18:57 Methylprednisolone Sod Succ 125 Mg/2 Ml Vial IVPUSH 09/20/22 18:49 125 mg ONCE ONE Administration Medical Decision Making Medical Decision Making [facility] Narrative: Patient's pCO2 is on the higher side. Patient is alert and oriented x3. I disc ussed the patient with Dr. Traore, we will start patent on Bipap for 1 hr to decrease pCO2 Patient's elevated white blood cell count is likely secondary to steroid use, labs were after getting Solu-Medrol from the paramedics, lactic acid within normal limits, blood pressure has been stable without any episodes of hypotension, sepsis not suspected Patient's troponin and BNP slightly bumped, however they are at baseline. D-dimer is 244, adjusted for age, D-dimer is negative up to 257 I was informed by the patient's nurse and respiratory therapist that the patient refused BiPAP. Patient remains alert and oriented x4 Differential Diagnosis Differential Diagnoses: The differential diagnosis associated with the presentation includes (COPD, asthma, influenza, COVID) Admission/Observation Consideration of admission/observation: Escalation of care including admission/observation considered (Patient is requiring more oxygen than her baseline. Usually uses 2.5 L at home) Consult Healthcare Provider Management of the patient was discussed with: Hospitalist (Dr. Traore agreed to admit the patient, after 1 hour of BiPAP) Lab Data MDM Lab Attestation statement: I reviewed the patient's lab results. 09/20/22 20:05 09/20/22 20:33 Labs: Lab Results 09/20/22 09/20/22 09/20/22 Range/Units 20:05 20:05 20:05 WBC 12.3 H (4.8-10.8) X10*3/uL RBC 3.98 L (4.20-5.50) X10*6/uL Hgb 10.4 L (12.0-16.0) g/dl Hct 35.3 L (37.0-47.0) % MCV 88.7 (80.0-98.0) fL MCH 26.1 L (27.0-33.0) pg MCHC 29.5 L (31.0-35.0) g/dl RDW 13.6 (11.0-16.0) % Plt Count 401 H (160-400) X10*3/uL MPV 9.5 (9.4-12.3) fL Immature Gran % (Auto) 0.3 (0.0-0.4) % Neut % (Auto) 90.8 H (45-73) % Lymph % (Auto) 5.9 L (20-40) % [place] % (Auto) 2.7 (2-11) % Eos % (Auto) 0.1 (0-4) % Baso % (Auto) 0.2 (0-2) % Lymph # (Auto) 0.7 L (1.2-4.9) X10*3/uL [place] # (Auto) 0.3 (0.1-1.2) X10*3/uL Eos # (Auto) 0.0 (0.0-0.4) X10*3/uL Baso # (Auto) 0.0 (0.0-0.2) X10*3/uL Abs Immat Gran (auto) 0.04 H (0.00-0.03) X10*3/uL Absolute Neuts (auto) 11.2 H (2.0-8.3) x10*3/uL Absolute Nucleated RBC 0.000 (0.0-0.012) X10*3/uL Nucleated RBC % (auto) 0.0 (0.0-0.2) /100WBC Smear Tech's Comments VERIFIED PT (10.0-13.1) SEC INR (0.9-1.1) D-Dimer High Sensitivty NG/ML VBG pH (7.32-7.43) VBG pCO2 mmHg VBG pO2 mmHg VBG HCO3 (22-26) mmol/L VBG O2 Saturation % VBG Base Excess mmol/L Sodium (135-145) mmol/L Potassium (3.3-5.1) mmol/L Chloride (96-108) mmol/L Carbon Dioxide (22-29) mmol/L Anion Gap (12-20) BUN (9-16) mg/dL Creatinine (0.5-1.4) mg/dL Estim Creat Clear Calc Estimated GFR Random Glucose (60-115) mg/dL Lactic Acid (0.5-2.0) mmol/L Calcium (8.4-10.2) mg/dL Total Bilirubin (0.0-1.0) mg/dL Direct Bilirubin (0.0-0.5) mg/dL AST (5-31) U/L ALT (0-31) U/L Alkaline Phosphatase (39-117) U/L Troponin I High Sens (<3.5-17.0) ng/L B-Natriuretic Peptide 255 H (<100) pg/mL Total Protein (6.5-8.0) g/dL Albumin (3.5-5.0) g/dL COVID-19 (LUIS ALBERTO) Negative (Negative) COVID-19 Clin Com See Note Influenza Type A (DEJON) (Negative) Influenza Type B (DEJON) (Negative) Influenza A & B Note 09/20/22 09/20/22 09/20/22 Range/Units 20:05 20:32 20:33 WBC (4.8-10.8) X10*3/uL RBC (4.20-5.50) X10*6/uL Hgb (12.0-16.0) g/dl Hct (37.0-47.0) % MCV (80.0-98.0) fL MCH (27.0-33.0) pg MCHC (31.0-35.0) g/dl RDW (11.0-16.0) % Plt Count (160-400) X10*3/uL MPV (9.4-12.3) fL Immature Gran % (Auto) (0.0-0.4) % Neut % (Auto) (45-73) % Lymph % (Auto) (20-40) % [place] % (Auto) (2-11) % Eos % (Auto) (0-4) % Baso % (Auto) (0-2) % Lymph # (Auto) (1.2-4.9) X10*3/uL [place] # (Auto) (0.1-1.2) X10*3/uL Eos # (Auto) (0.0-0.4) X10*3/uL Baso # (Auto) (0.0-0.2) X10*3/uL Abs Immat Gran (auto) (0.00-0.03) X10*3/uL Absolute Neuts (auto) (2.0-8.3) x10*3/uL Absolute Nucleated RBC (0.0-0.012) X10*3/uL Nucleated RBC % (auto) (0.0-0.2) /100WBC Smear Tech's Comments PT (10.0-13.1) SEC INR (0.9-1.1) D-Dimer High Sensitivty NG/ML VBG pH (7.32-7.43) VBG pCO2 mmHg VBG pO2 mmHg VBG HCO3 (22-26) mmol/L VBG O2 Saturation % VBG Base Excess mmol/L Sodium 139 (135-145) mmol/L Potassium 4.4 (3.3-5.1) mmol/L Chloride 86 L (96-108) mmol/L Carbon Dioxide 40 H* D (22-29) mmol/L Anion Gap 17 (12-20) BUN 10 (9-16) mg/dL Creatinine 0.59 (0.5-1.4) mg/dL Estim Creat Clear Calc 67.1 Estimated GFR > 60 Random Glucose 95 (60-115) mg/dL Lactic Acid (0.5-2.0) mmol/L Calcium 10.7 H (8.4-10.2) mg/dL Total Bilirubin 0.5 (0.0-1.0) mg/dL Direct Bilirubin 0.2 (0.0-0.5) mg/dL AST 22 (5-31) U/L ALT 14 (0-31) U/L Alkaline Phosphatase 104 (39-117) U/L Troponin I High Sens 29.7 H (<3.5-17.0) ng/L B-Natriuretic Peptide (<100) pg/mL Total Protein 8.5 H (6.5-8.0) g/dL Albumin 4.8 (3.5-5.0) g/dL COVID-19 (LUIS ALBERTO) (Negative) COVID-19 Clin Com Influenza Type A (DEJON) Negative (Negative) Influenza Type B (DEJON) Negative (Negative) Influenza A & B Note See Note 09/20/22 09/20/22 09/20/22 Range/Units 20:37 20:48 20:48 WBC (4.8-10.8) X10*3/uL RBC (4.20-5.50) X10*6/uL Hgb (12.0-16.0) g/dl Hct (37.0-47.0) % MCV (80.0-98.0) fL MCH (27.0-33.0) pg MCHC (31.0-35.0) g/dl RDW (11.0-16.0) % Plt Count (160-400) X10*3/uL MPV (9.4-12.3) fL Immature Gran % (Auto) (0.0-0.4) % Neut % (Auto) (45-73) % Lymph % (Auto) (20-40) % [place] % (Auto) (2-11) % Eos % (Auto) (0-4) % Baso % (Auto) (0-2) % Lymph # (Auto) (1.2-4.9) X10*3/uL [place] # (Auto) (0.1-1.2) X10*3/uL Eos # (Auto) (0.0-0.4) X10*3/uL Baso # (Auto) (0.0-0.2) X10*3/uL Abs Immat Gran (auto) (0.00-0.03) X10*3/uL Absolute Neuts (auto) (2.0-8.3) x10*3/uL Absolute Nucleated RBC (0.0-0.012) X10*3/uL Nucleated RBC % (auto) (0.0-0.2) /100WBC Smear Tech's Comments PT 11.8 (10.0-13.1) SEC INR 1.0 (0.9-1.1) D-Dimer High Sensitivty NG/ML VBG pH 7.36 (7.32-7.43) VBG pCO2 87 mmHg VBG pO2 37 mmHg VBG HCO3 49 H (22-26) mmol/L VBG O2 Saturation 52.0 % VBG Base Excess 19.2 mmol/L Sodium (135-145) mmol/L Potassium (3.3-5.1) mmol/L Chloride (96-108) mmol/L Carbon Dioxide (22-29) mmol/L Anion Gap (12-20) BUN (9-16) mg/dL Creatinine (0.5-1.4) mg/dL Estim Creat Clear Calc Estimated GFR Random Glucose (60-115) mg/dL Lactic Acid 1.2 (0.5-2.0) mmol/L Calcium (8.4-10.2) mg/dL Total Bilirubin (0.0-1.0) mg/dL Direct Bilirubin (0.0-0.5) mg/dL AST (5-31) U/L ALT (0-31) U/L Alkaline Phosphatase (39-117) U/L Troponin I High Sens (<3.5-17.0) ng/L B-Natriuretic Peptide (<100) pg/mL Total Protein (6.5-8.0) g/dL Albumin (3.5-5.0) g/dL COVID-19 (LUIS ALBERTO) (Negative) COVID-19 Clin Com Influenza Type A (DEJON) (Negative) Influenza Type B (DEJON) (Negative) Influenza A & B Note 09/20/22 Range/Units 20:48 WBC (4.8-10.8) X10*3/uL RBC (4.20-5.50) X10*6/uL Hgb (12.0-16.0) g/dl Hct (37.0-47.0) % MCV (80.0-98.0) fL MCH (27.0-33.0) pg MCHC (31.0-35.0) g/dl RDW (11.0-16.0) % Plt Count (160-400) X10*3/uL MPV (9.4-12.3) fL Immature Gran % (Auto) (0.0-0.4) % Neut % (Auto) (45-73) % Lymph % (Auto) (20-40) % [place] % (Auto) (2-11) % Eos % (Auto) (0-4) % Baso % (Auto) (0-2) % Lymph # (Auto) (1.2-4.9) X10*3/uL [place] # (Auto) (0.1-1.2) X10*3/uL Eos # (Auto) (0.0-0.4) X10*3/uL Baso # (Auto) (0.0-0.2) X10*3/uL Abs Immat Gran (auto) (0.00-0.03) X10*3/uL Absolute Neuts (auto) (2.0-8.3) x10*3/uL Absolute Nucleated RBC (0.0-0.012) X10*3/uL Nucleated RBC % (auto) (0.0-0.2) /100WBC Smear Tech's Comments PT (10.0-13.1) SEC INR (0.9-1.1) D-Dimer High Sensitivty 244 NG/ML VBG pH (7.32-7.43) VBG pCO2 mmHg VBG pO2 mmHg VBG HCO3 (22-26) mmol/L VBG O2 Saturation % VBG Base Excess mmol/L Sodium (135-145) mmol/L Potassium (3.3-5.1) mmol/L Chloride (96-108) mmol/L Carbon Dioxide (22-29) mmol/L Anion Gap (12-20) BUN (9-16) mg/dL Creatinine (0.5-1.4) mg/dL Estim Creat Clear Calc Estimated GFR Random Glucose (60-115) mg/dL Lactic Acid (0.5-2.0) mmol/L Calcium (8.4-10.2) mg/dL Total Bilirubin (0.0-1.0) mg/dL Direct Bilirubin (0.0-0.5) mg/dL AST (5-31) U/L ALT (0-31) U/L Alkaline Phosphatase (39-117) U/L Troponin I High Sens (<3.5-17.0) ng/L B-Natriuretic Peptide (<100) pg/mL Total Protein (6.5-8.0) g/dL Albumin (3.5-5.0) g/dL COVID-19 (LUIS ALBERTO) (Negative) COVID-19 Clin Com Influenza Type A (DEJON) (Negative) Influenza Type B (DEJON) (Negative) Influenza A & B Note Independent Interpretation I performed an independent interpretation of an: Plain X-Ray (No consolidation, hyperinflated lungs) Radiology Impression Discussion of test interpretation with radiology: I have reviewed the radiologist's reading. Radiologist Impression: Lungs are hyperinflated without acute pneumonic consolidation. There is patchy scattered bilateral parahilar and lower lobe opacities. Some curly B lines are seen and right lung base. There is bilateral bronchial wall thickening. There is no pleural effusion. The heart size and pulmonary vascularity is normal. No gross bony deformity seen. XR/XR chest 1V IMPRESSION: Hyperinflated lungs with persistent increase bilateral parahilar and lower lobe opacities likely residual inflammatory or infectious process from previous exam 08/16/2021. Discharge Plan Discharge Clinical Impression: Chronic lung disease Patient Disposition: Admitted As Inpatient
[2022-09-20] MEDS: Magnesium Sulfate/H2O 2 GM/50 ML PIGGYBACK IV (18:57)
[2022-09-20] MEDS: 0.9 % Sodium Chloride 1,000 ML 999 ML IVCONT ×2 (18:57→22:29)
[2022-09-20] MEDS: methylPREDNISolone Sod Succ 125 MG/2 ML VIAL IVPUSH (18:57)
--- OUTSIDE RECORDS SUMMARY | 2022-09-20 19:09 | XMS_ITS | Continuity of Care Document ---
:1965 Author Organization [facility] Address Unavailable , Care Team Providers Name Role Phone Carlos MOULTON, Brianna Primary Care Physician Encounter [facility] [place] Date(s): 06/26/21 - 10/24/21 [facility] Attending Physician: Kentrell Han NP Admitting Physician: Guille HOOK, Kentrell Referring Physician: Brianna Gonzalez MD Allergies, Adverse Reactions, Alerts Substance Reaction Severity Status penicillin dyspnea Active toungue swells Immunizations Given and Recorded Vaccine Date Status Refusal Reason pneumococcal 23-valent vaccine 07/29/16 Given Medications albuterol CFC free 90 mcg/inh inhalation aerosol 2, puffs, Inhalation, 4 times a day, PRN, # 25 Gm, Refills 0, Tot. Refills 0, Maintenance, 07/31/16 11:30:51, Aerosol, Route to Pharmacy Electronically, [id number], [facility], Compound Start Date: 07/31/16 Status: Orderedamitriptyline 10 mg oral tablet 10 mg, 1, tablet, By Mouth, Daily at bedtime, Refills 0, Maintenance, 05/05/16 19:06:08 EDT Start Date: 05/05/16 Status: Orderedaspirin 81 mg oral tablet 1 tablet = 81 mg, By Mouth, Daily, # 30 tablet, 0 Refills, Maintenance, 05/05/16 19:03:03 EDT, Tablet Start Date: 05/05/16 Status: Orderedatorvastatin 20 mg oral tablet 1 tablet = 20 mg, By Mouth, Daily, # 30 tablet, 0 Refills, Maintenance, Tablet Start Date: 05/05/16 Status: Orderedcarvedilol 3.125 mg oral tablet 3.125 mg, By Mouth, 2 times a day, Refills 0, Maintenance, 05/21/16 12:02:10 EDT Start Date: 05/21/16 Status: Orderedcetirizine 10 mg oral tablet 1 tablet = 10 mg, By Mouth, Daily, PRN for allergy symptoms, # 10 tablet, 0 Refills, Maintenance, 05/05/16 19:04:20 EDT, Tablet Start Date: 05/05/16 Status: OrderedcloNIDine 0.1 mg oral tablet 0.1 mg, By Mouth, 4 times a day, # 28 tablet, Refills 0, Tot. Refills 0, Maintenance, 04/13/17 13:55:08, Route to Pharmacy Electronically, [id number], [facility] Start Date: 04/13/17 Stop Date: 04/20/17 Status: OrderedFlovent HFA 110 mcg/inh inhalation aerosol 2 puffs = 220 mcg, Inhalation, 2 times a day, # 1 each, 0 Refills, Maintenance, 07/31/16 11:30:01, Aerosol Start Date: 07/31/16 Status: Orderedfolic acid 1 mg oral tablet 1 mg, Nasogastric Tube, Daily, Refills 0, Maintenance, 05/21/16 12:02:28 EDT Start Date: 05/21/16 Status: Orderedgabapentin 400 mg oral capsule 400 mg, 1, capsule, By Mouth, 3 times a day, # 120 capsule, Refills 0, Maintenance, 05/05/16 19:03:46 EDT Start Date: 05/05/16 Status: Orderedlisinopril 5 mg oral tablet 5 mg, By Mouth, Daily, Refills 0, Maintenance, 05/21/16 12:02:33 EDT Start Date: 05/21/16 Status: Orderedloperamide 2 mg oral capsule 2 mg, By Mouth, Every 3 hours, PRN, # 30 capsule, Refills 1, Tot. Refills 1, Maintenance, Loose Stool, 04/13/17 12:58:53, Route to Pharmacy Electronically, [id number], [facility] Start Date: 04/13/17 Status: Orderedmirtazapine 15 mg oral tablet 1 tablet = 15 mg, By Mouth, Daily at bedtime, # 30 tablet, 0 Refills, Maintenance, 05/05/16 19:04:56EDT, Tablet Start Date: 05/05/16 Status: OrderedNarcan 4 mg/0.1 mL nasal spray = 4 mg, Naris, Left, Once, PRN Opiate toxicity, # 2 each, 1 Refills, Soft Stop, 04/13/17 12:57:43 Start Date: 04/13/17 Status: Orderedomeprazole 20 mg oral delayed release tablet 1 tablet = 20 mg, By Mouth, 2 times a day, # 120 tablet, 0 Refills, Maintenance, 05/05/16 19:05:16 EDT, EC Tablet Start Date: 05/05/16 Status: OrderedPARoxetine 20 mg oral tablet 20 mg, 1, tablet, By Mouth, Daily, # 30 tablet, Refills 0, Maintenance, 05/05/16 19:05:29 EDT Start Date: 05/05/16 Status: Orderedsaccharomyces boulardii lyo 250 mg oral capsule 1 capsule = 250 mg, By Mouth, 2 times a day, PRN for loose stool, # 10 capsule, 0 Refills, Maintenance, 04/13/17 13:26:39, Capsule Start Date: 04/13/17 Status: Orderedsertraline 50 mg oral tablet 1 tablet = 50 mg, By Mouth, Daily, # 30 tablet, 0 Refills, Maintenance, 05/08/19 12:58:58 EDT, Tablet Start Date: 05/08/19 Status: OrderedZofran 4 mg oral tablet 1 tablet = 4 mg, By Mouth, Every 8 hours, PRN as needed for nausea/vomiting, 0 Refills, Maintenance,05/05/16 19:04:45 EDT, Tablet Start Date: 05/05/16 Status: Ordered Problem List Condition Effective Dates Status Health Status Informant Carotid artery stenosis(Confirmed) Active Hyperlipidemia(Confirmed) Active Injury to Unspecified Blood Vessel of Active Head and Neck(Confirmed) Social History Social History Type Response Smoking Status Former smoker entered on: 04/10/17 Sex
--- OUTSIDE RECORDS SUMMARY | 2022-09-20 19:09 | XMS_ITS | Continuity of Care Document ---
:1965 Author Organization [facility] Address Unavailable , Care Team Providers Name Role Phone Carlos MOULTON, Asma Primary Care Physician Encounter [facility] [place] Date(s): 09/24/21 - 10/24/21 [facility] Attending Physician: Mona López Admitting Physician: Mona López Referring Physician: AdmMona shi Allergies, Adverse Reactions, Alerts Substance Reaction Severity Status penicillin dyspnea Active toungue swells Immunizations Given and Recorded Vaccine Date Status Refusal Reason pneumococcal 23-valent vaccine 07/29/16 Given Medications albuterol CFC free 90 mcg/inh inhalation aerosol 2, puffs, Inhalation, 4 times a day, PRN, # 25 Gm, Refills 0, Tot. Refills 0, Maintenance, 07/31/16 11:30:51, Aerosol, Route to Pharmacy Electronically, [id number], [facility], Compound Start Date: 07/31/16 Status: [...] Maintenance, 04/13/17 13:55:08, Route to Pharmacy Electronically, [id number], [facility] Start Date: 04/13/17 Stop Date: 04/20/17 [...] Stool, 04/13/17 12:58:53, Route to Pharmacy Electronically, [id number], [facility] Start Date: 04/13/17 Status: Orderedmirtazapine [...]
[2022-09-20] MEDS: Albuterol Sulfate (0.083%) 2.5 MG/3 ML VIAL.NEB 10 MG INHALE (19:12)
[2022-09-20 19:16] VITALS: PULSE 105; RESP 18; O2SAT 95
[2022-09-20 20:14] LABS: Basophils Percent Auto 0.2 % (0-2); Eosinophils Percent Auto 0.1 % (0-4); Hematocrit 35.3 % (37.0-47.0); Hemoglobin 10.4 g/dl (12.0-16.0); Imm Gran Abs Auto 0.04 X10*3/uL (0.00-0.03); Imm Gran Pct Auto 0.3 % (0.0-0.4); Lymphocytes Absolute Auto 0.7 X10*3/uL (1.2-4.9); Lymphocytes Percent Auto 5.9 % (20-40); MANUAL DIFF FLAG SCAN; Mean Corpuscular HGB Conc 29.5 g/dl (31.0-35.0); Mean Corpuscular Hemoglobin 26.1 pg (27.0-33.0); Mean Corpuscular Volume 88.7 fL (80.0-98.0); Mean Platelet Volume 9.5 fL (9.4-12.3); Monocytes Absolute Auto 0.3 X10*3/uL (0.1-1.2); Monocytes Percent Auto 2.7 % (2-11); Neutrophils Absolute Auto 11.2 x10*3/uL (2.0-8.3); Neutrophils Percent Auto 90.8 % (45-73); Platelet Count 401 X10*3/uL (160-400); Red Blood Count 3.98 X10*6/uL (4.20-5.50); Red Cell Distribution Width 13.6 % (11.0-16.0); SCAN SMEAR FLAG 1; White Blood Count 12.3 X10*3/uL (4.8-10.8)
--- NOTE | 2022-09-20 20:19 | MHC.EDTECH ---
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
--- NOTE | 2022-09-20 20:24 | PC.NURSE ---
Pt has been resting on stretcher since arriving. after being taken off CPAP and placed on 2L nasal cannula, pt satting well for about half an hour. The pt then desatted into the MD melissa at bedside. Pt was placed onto Oxymask 4 L where she has been satting at 91% since
[2022-09-20 20:25] LABS: COVID-19 Test Negative (Negative); IDNOW Serial# BCCEAD1C
[2022-09-20 20:32] LABS: IDNOW Serial# 16C4AD1C; Influenza A Negative (Negative); Influenza B2 Negative (Negative)
[2022-09-20 20:33] VITALS: PULSE 106; RESP 22; O2SAT 92
[2022-09-20 20:33] LABS: B Type Natriuretic Peptide 255 pg/mL (<100)
[2022-09-20 20:42] LABS: VBG Base Excess 19.2 mmol/L; VBG HCO3 49 mmol/L (22-26); VBG pCO2 87 mmHg; VBG pH 7.36 (7.32-7.43); VBG pO2 37 mmHg
[2022-09-20 20:47] LABS: Venous Blood Gas Refer to POC result
[2022-09-20 20:50] LABS: SLIDE REVIEW VERIFIED
[2022-09-20 21:07] LABS: Troponin-I High Sensitivity 29.7 ng/L (<3.5-17.0)
[2022-09-20 21:12] LABS: Prothrombin Time 11.8 SEC (10.0-13.1)
[2022-09-20 21:13] LABS: Lactic Acid 1.2 mmol/L (0.5-2.0)
[2022-09-20 21:14] LABS: D Dimer High Sensitivity 244 NG/ML
[2022-09-20 21:14] LABS: Alanine Aminotransferase 14 U/L (0-31); Albumin Level 4.8 g/dL (3.5-5.0); Alkaline Phosphatase 104 U/L (39-117); Anion Gap 17 (12-20); Aspartate Amino Transferase 22 U/L (5-31); Bilirubin Direct 0.2 mg/dL (0.0-0.5); Bilirubin Total 0.5 mg/dL (0.0-1.0); Blood Urea Nitrogen 10 mg/dL (9-16); Calcium 10.7 mg/dL (8.4-10.2); Carbon Dioxide 40 mmol/L (22-29); Chloride 86 mmol/L (96-108); Creatinine Clr Calc Pharmacy 67.1; Estimated Glomerular Filt Rate > 60; Glucose Random 95 mg/dL (60-115); Potassium 4.4 mmol/L (3.3-5.1); Sodium 139 mmol/L (135-145); Total Protein 8.5 g/dL (6.5-8.0)
[2022-09-20 21:54] VITALS: BP 152/68; PULSE 102; RESP 16; TEMP 37.3; O2SAT 94
--- NOTE | 2022-09-20 22:22 | PM.IMHP ---
History of Present Illness Date of Service: 09/20/22 Chief Complaint: SOB 56-year-old female with past medical history of CVA, CAD, major depression disorder, takotsubo cardiomyopathy, new onset seizures, COPD /asthma on baseline 2-3 L of oxygen, presents to the hospital with complaints of shortness of breath. Patient reports dyspnea, cough, increased sputum production for the past 2 days. Not improved with her breathing treatments at home. Patient reports no fever no chills, no chest pain, no abdominal pain nausea or vomiting, no diarrhea constipation, no urinary symptoms and no lower extremity edema. Patient is not confused, alert and oriented answers questions appropriately . denies any orthopnea, PND, no lower extremity edema. vitals are significant for a heart rate of 120, otherwise stable Labs are significant for WBC count of 12.3, hemoglobin of 10.4, medical 35.3, pH of 7.36 with a CO2 of 87, bicarb of 40, calcium of 10.7, troponin of 29.7, BNP of 255, Chest x-ray revealed increased bilateral perihilar and lower lobe opacity likely residual inflammatory infectious process seen on previous exam done on 08/16 2021. No new findings Review of Systems Review of Systems: Yes all other systems are reviewed and are negative [facility] Medical History Acute CHF (congestive heart failure) Anxiety, generalized Apical myocardial infarction Arthrosis Asthma, moderate Asymptomatic carotid artery stenosis with infarction Chronic GERD Cocaine abuse COPD mixed type COVID-19 virus infection Difficulty sleeping Environmental allergies Exacerbation of asthma Hemiparesis affecting right side as late effect of cerebrovascular accident Hypercapnic respiratory failure, chronic Lipid disorder Oxygen dependent Respiratory failure Tobacco abuse Family History Father Substance abuse Mother Brain cancer Maternal Grandfather History of heart attack Maternal Grandmother History of heart attack Paternal Grandfather No problems noted. Paternal Grandmother No problems noted. Brother No problems noted. Brother No problems noted. Son No problems noted. Daughter No problems noted. Other Mental health disorder Surgical History History of tonsillectomy and adenoidectomy Social History Household Members: Children Housing: Apartment Do you presently have visiting nurse or other home services: No Patient Tobacco Use Status: Former Tobacco user Tobacco use type: Cigarette Years Smoked: 35 years e-Cigarette/Vaping Use: Never Used Advance Directives: Yes Advance Directives on File: Yes Advance Directives Date on File: 11/25/21 service: No Current occupational status: disabled Cognitive needs: No Hearing needs: No Vision needs: No Meds Allergies Allergy/AdvReac Type Severity Reaction Status Date / Time crab Allergy Unknown Hives Verified 07/09/22 15:15 penicillin V Allergy Unknown hives Verified 07/09/22 15:15 Penicillins [PENICILLINS] Allergy Unknown hives Verified 07/09/22 15:15 SEASONAL ALLERGIES Allergy Mild RUNNY NOSE Uncoded 12/09/21 10:08 Active Medications: Current Medications Levofloxacin (Levaquin) 250 mg in 50 mls @ 50 mls/hr IV ONCE ONE Stop: 09/20/22 22:35 Sodium Chloride (Ns) 1,000 mls @ 999 mls/hr IVCONT .Q1H1M ONE Stop: 09/20/22 22:36 Home Medications Medication Instructions Recorded Confirmed Last Taken Type beclomethasone dipropionate 80 1 inh inhalation BID 11/24/21 07/09/22 Unknown History mcg/actuation HFA breath activated aerosol (Qvar RediHaler) Physical Exam Vital Signs and Narrative: Vital Signs: Last Vital Signs Temp 99.2 F 09/20/22 21:54 Pulse 102 H 09/20/22 21:54 Resp 16 09/20/22 21:54 BP 152/68 H 09/20/22 21:54 Pulse Ox 94 09/20/22 21:54 O2 Del Method 09/20/22 21:54 O2 Flow Rate 2 09/20/22 21:54 BMI result Body Mass Index 17.9 Const: General: cooperative and no acute distress Orientation/consciousness: patient oriented x3 Eyes: General: appearance normal, both eyes and all related structures Resp: Other: rhonchi bilaterally Effort & Inspection: normal respiratory effort Cardio: Rate: regular rate Rhythm: regular rhythm GI: Palpation (GI): Soft to palpation Auscultation: normal bowel sounds Skin: General skin exam: no rashes or lesions noted Neuro: General: patient oriented x3 Cognition (Neuro): normal cognition Extrem: General: Yes normal to inspection and Yes no pedal edema Results Labs 09/20/22 20:05 09/20/22 20:33 Labs: Laboratory Results - last 24 hr 09/20/22 09/20/22 09/20/22 20:05 20:05 20:05 MCV 88.7 MCH 26.1 L MCHC 29.5 L RDW 13.6 Plt Count 401 H MPV 9.5 Immature Gran % (Auto) 0.3 Neut % (Auto) 90.8 H Lymph % (Auto) 5.9 L [place] % (Auto) 2.7 Eos % (Auto) 0.1 Baso % (Auto) 0.2 Lymph # (Auto) 0.7 L [place] # (Auto) 0.3 Eos # (Auto) 0.0 Baso # (Auto) 0.0 Abs Immat Gran (auto) 0.04 H Absolute Neuts (auto) 11.2 H Absolute Nucleated RBC 0.000 Nucleated RBC % (auto) 0.0 Smear Tech's Comments VERIFIED PT INR D-Dimer High Sensitivty VBG pH VBG pCO2 VBG pO2 VBG HCO3 VBG O2 Saturation VBG Base Excess Anion Gap Estim Creat Clear Calc Estimated GFR Random Glucose Lactic Acid Calcium Total Bilirubin Direct Bilirubin AST ALT Alkaline Phosphatase Troponin I High Sens B-Natriuretic Peptide 255 H Total Protein Albumin COVID-19 (LUIS ALBERTO) Negative COVID-19 Clin Com See Note Influenza Type A (DEJON) Influenza Type B (DEJON) Influenza A & B Note 09/20/22 09/20/22 09/20/22 20:05 20:32 20:33 MCV MCH MCHC RDW Plt Count MPV Immature Gran % (Auto) Neut % (Auto) Lymph % (Auto) [place] % (Auto) Eos % (Auto) Baso % (Auto) Lymph # (Auto) [place] # (Auto) Eos # (Auto) Baso # (Auto) Abs Immat Gran (auto) Absolute Neuts (auto) Absolute Nucleated RBC Nucleated RBC % (auto) Smear Tech's Comments PT INR D-Dimer High Sensitivty VBG pH VBG pCO2 VBG pO2 VBG HCO3 VBG O2 Saturation VBG Base Excess Anion Gap 17 Estim Creat Clear Calc 67.1 Estimated GFR > 60 Random Glucose 95 Lactic Acid Calcium 10.7 H Total Bilirubin 0.5 Direct Bilirubin 0.2 AST 22 ALT 14 Alkaline Phosphatase 104 Troponin I High Sens 29.7 H B-Natriuretic Peptide Total Protein 8.5 H Albumin 4.8 COVID-19 (LUIS ALBERTO) COVID-19 Clin Com Influenza Type A (DEJON) Negative Influenza Type B (DEJON) Negative Influenza A & B Note See Note 09/20/22 09/20/22 09/20/22 20:37 20:48 20:48 MCV MCH MCHC RDW Plt Count MPV Immature Gran % (Auto) Neut % (Auto) Lymph % (Auto) [place] % (Auto) Eos % (Auto) Baso % (Auto) Lymph # (Auto) [place] # (Auto) Eos # (Auto) Baso # (Auto) Abs Immat Gran (auto) Absolute Neuts (auto) Absolute Nucleated RBC Nucleated RBC % (auto) Smear Tech's Comments PT 11.8 INR 1.0 D-Dimer High Sensitivty VBG pH 7.36 VBG pCO2 87 VBG pO2 37 VBG HCO3 49 H VBG O2 Saturation 52.0 VBG Base Excess 19.2 Anion Gap Estim Creat Clear Calc Estimated GFR Random Glucose Lactic Acid 1.2 Calcium Total Bilirubin Direct Bilirubin AST ALT Alkaline Phosphatase Troponin I High Sens B-Natriuretic Peptide Total Protein Albumin COVID-19 (LUIS ALBERTO) COVID-19 Clin Com Influenza Type A (DEJON) Influenza Type B (DEJON) Influenza A & B Note 09/20/22 20:48 MCV MCH MCHC RDW Plt Count MPV Immature Gran % (Auto) Neut % (Auto) Lymph % (Auto) [place] % (Auto) Eos % (Auto) Baso % (Auto) Lymph # (Auto) [place] # (Auto) Eos # (Auto) Baso # (Auto) Abs Immat Gran (auto) Absolute Neuts (auto) Absolute Nucleated RBC Nucleated RBC % (auto) Smear Tech's Comments PT INR D-Dimer High Sensitivty 244 VBG pH VBG pCO2 VBG pO2 VBG HCO3 VBG O2 Saturation VBG Base Excess Anion Gap Estim Creat Clear Calc Estimated GFR Random Glucose Lactic Acid Calcium Total Bilirubin Direct Bilirubin AST ALT Alkaline Phosphatase Troponin I High Sens B-Natriuretic Peptide Total Protein Albumin COVID-19 (LUIS ALBERTO) COVID-19 Clin Com Influenza Type A (DEJON) Influenza Type B (DEJON) Influenza A & B Note Imaging Radiologist's Impressions: Impressions Chest X-Ray 09/20/22 19:05 IMPRESSION: Hyperinflated lungs with persistent increase bilateral parahilar and lower lobe opacities likely residual inflammatory or infectious process from previous exam 08/16/2021. Assessment and Plan (1) Acute exacerbation of COPD with asthma: Status: Acute (2) Hypercapnic respiratory failure: Qualifiers: Chronicity: acute Qualified Code(s): J96.02 - Acute respiratory failure with hypercapnia Status: Acute (3) Acute on chronic respiratory acidosis: Status: Acute (4) Normocytic anemia: Status: Acute Plan 56-year-old female with past medical history of COPD /asthma, CHF, CVA, CAD, presents the hospital with shortness of breath, cough as well as sputum production # acute COPD exacerbation with asthma - has increased cough, sputum production, as well as dyspnea - slightly elevated CO2 retention but patient refused BiPAP, she is A&O x4 - will treat with Solu-Medrol, DuoNeb p.r.n. as well as scheduled, azithromycin for underlying COPD - repeat VBG in a.m. - monitor mental status # acute on chronic respiratory acidosis - elevated CO2, pH of 7.36 - patient A&O x4 - repeat VBG # normocytic anemia - appears to have a drop in hemoglobin - possibly dilutional - repeat CBC - will obtain ferritin, folic acid and B12 levels - monitor H&H # history of CVA - continue aspirin, statin # history of CAD - no chest pain - continue ASA, metoprolol a # history of CHF with reduced ejection fraction - documented takotsubo - no evidence of exacerbation at this time with no lower extremity edema, no orthopnea, no PND - monitor respiratory status, if worsened can repeat BNP # seizure disorder - continue Keppra DVT prophylaxis: Lovenox given patient's acute COPD exacerbation, acute on chronic respiratory acidosis patient require minimum 2 night inpatient hospital stay for further monitoring and managem Time Spent With Patient Time: Total time managing care of this patient today ____ minutes. Quality Stroke Does the patient have a stroke diagnosis?: No VTE Prior VTE?: No VTE Risk Level:: Medical - moderate - high VTE Device Contraindication: Treatment Not Indicated VTE Drug Contraindication: N/A - Med Ordered
[2022-09-20] MEDS: levoFLOXacin/D5W 250 MG/50 ML PIGGYBACK 50 MG IV (22:29)
[2022-09-20] MEDS: Enoxaparin Sodium 40 MG/0.4 ML SYRINGE SUBCUT (23:02)
[2022-09-20] MEDS: 0.9 % Sodium Chloride Flush 3 ML SYRINGE IVFLUSH (23:02)
[2022-09-20 23:34] VITALS: BP 154/58; PULSE 112; RESP 20; TEMP 37.4; O2SAT 92
--- NOTE | 2022-09-20 23:36 | MHC.EDTECH ---
pt drank 2 cans of елена susi and a cup of ice water .
[2022-09-20] MEDS: Azithromycin 500 MG in 0.9 % Sodium Chloride 250 ML 125 MG IV (23:44)
[2022-09-21] VITALS (7 sets, daily range): BP systolic 132–170; BP diastolic 48–72; PULSE 100–111; RESP 16–20; TEMP 36.2–37.6; O2SAT 90–99
--- NOTE | 2022-09-21 00:31 | MHC.EDTECH ---
PATIENT RANG CALL LETTY ,WANTED A SANDWICH ,WAS GIVEN A [employer] SANDWICH .
--- NOTE | 2022-09-21 00:34 | PC.NURSE ---
Pt abx running per NOV. IV is positional. Pt reports no pain and no SOB at this time
--- NOTE | 2022-09-21 00:36 | PC.NURSE ---
pt declined Bipap from respiratory, aware
--- NOTE | 2022-09-21 02:00 | MHC.EDTECH ---
0200 rounding done ,pt awake at this time ,call campbell within reach .
--- NOTE | 2022-09-21 02:13 | PC.NURSE ---
pt up eating ice cream at this time, reports no pain, no SOB, VSS
--- NOTE | 2022-09-21 06:15 | MHC.EDTECH ---
0600 rounding done ,pt ask for a warm blanket ,i & o done ,call campbell within reach .
[2022-09-21] MEDS: methylPREDNISolone Sod Succ 40 MG/ML VIAL IVPUSH ×2 (06:35→20:04)
[2022-09-21 06:37] LABS: MANUAL DIFF FLAG NO
--- NOTE | 2022-09-21 06:40 | PC.NURSE ---
pt resting on stretcher, did not sleep most of the night. Pt denies SOB, pain or any other symptoms at this time
[2022-09-21 06:41] LABS: Venous Blood Gas Refer to POC result
[2022-09-21 06:43] LABS: VBG Base Excess 19.3 mmol/L; VBG HCO3 45 mmol/L (22-26); VBG pCO2 60 mmHg; VBG pH 7.48 (7.32-7.43); VBG pO2 81 mmHg
[2022-09-21 06:43] LABS: Hematocrit 30.9 % (37.0-47.0); Hemoglobin 9.4 g/dl (12.0-16.0); Imm Gran Abs Auto 0.03 X10*3/uL (0.00-0.03); Imm Gran Pct Auto 0.5 % (0.0-0.4); Lymphocytes Absolute Auto 0.8 X10*3/uL (1.2-4.9); Lymphocytes Percent Auto 12.6 % (20-40); Mean Corpuscular HGB Conc 30.4 g/dl (31.0-35.0); Mean Corpuscular Hemoglobin 27.2 pg (27.0-33.0); Mean Corpuscular Volume 89.3 fL (80.0-98.0); Mean Platelet Volume 9.5 fL (9.4-12.3); Monocytes Absolute Auto 0.3 X10*3/uL (0.1-1.2); Monocytes Percent Auto 4.4 % (2-11); Neutrophils Absolute Auto 4.9 x10*3/uL (2.0-8.3); Neutrophils Percent Auto 82.5 % (45-73); Platelet Count 372 X10*3/uL (160-400); Red Blood Count 3.46 X10*6/uL (4.20-5.50); Red Cell Distribution Width 13.8 % (11.0-16.0)
[2022-09-21 06:55] LABS: Anion Gap 12 (12-20); Blood Urea Nitrogen 10 mg/dL (9-16); Carbon Dioxide 36 mmol/L (22-29); Chloride 92 mmol/L (96-108); Creatinine Clr Calc Pharmacy 70.6; Estimated Glomerular Filt Rate > 60; Glucose Random 114 mg/dL (60-115); Potassium 4.7 mmol/L (3.3-5.1); Sodium 135 mmol/L (135-145)
[2022-09-21 07:01] LABS: Troponin-I High Sensitivity 14.1 ng/L (<3.5-17.0)
[2022-09-21 07:16] LABS: Ferritin 83 ng/mL (10-250)
--- NOTE | 2022-09-21 07:20 | PHA.MEDREC ---
Pharmacy Consult ? Medication Reconciliation Pharmacy has completed the medication reconciliation. Spoke to patient and pharmacy. Per patient, she is no longer taking lexapro. She states that she is SUPPOSED to be on keppra but has not taken it for quite some time Samir
[2022-09-21 07:29] LABS: Folate 4.9 ng/mL (> or = 4.0); Vitamin B12 307 pg/mL (200-900)
[2022-09-21] MEDS: levETIRAcetam 500 MG TABLET PO ×2 (10:23→20:03)
--- NOTE | 2022-09-21 14:40 | MHC.CM.PN ---
Met with patient in regards to discharge planning. Patient lives with her daughter, ambulates with a cane and receives oxygen through [facility]. Patient denies the need for additional services at discharge. PCP verified. HCP verified to be on file. Patient denies receiving any Covid vaccines. Patient's daughter will transport patient home when medically stable. Continue to monitor for d/c needs.
--- NOTE | 2022-09-21 15:15 | HO.PM.IMPN ---
Subjective Subjective Date of Service: 09/22/22 Interval History: copd excerebation Review of Systems Patient still feels short of breath with minimal exertion, denies any chest pain or abdominal pain has cough with clear sputum No fever or chills. Physical Exam Vital Signs: Vital Signs: Last Vital Signs Temp 97.9 F 09/21/22 13:54 Pulse 103 H 09/21/22 13:54 Resp 16 09/21/22 13:54 BP 155/72 H 09/21/22 13:54 Pulse Ox 96 09/21/22 13:54 O2 Del Method 09/21/22 13:54 O2 Flow Rate 2 09/21/22 04:00 BMI result Body Mass Index 17.9 Appearance: Alert.? Oriented X3.? sob cvs: rrr, [id number] , no murmur res: air entry diminshed ,has b/l wheezin abd: no rebound or guarding ,nt, bs present. ext pulses present , no cyanosis. neuro: axo3 , nonfocal. Objective Data Active Medications Acetaminophen (Acetaminophen 325 Mg Tablet) 650 mg PO Q6H PRN PRN Reason: Pain, Mild (Pain Scale 1-3) Aspirin (Aspirin 81 Mg Tab.Chew) 81 mg PO DAILY [facility] Atorvastatin Calcium (Atorvastatin Calcium 40 Mg Tablet) 40 mg PO BEDTIME [facility] Albuterol Sulfate 2.5 mg/ (Ipratropium [place] 0.5 mg) 0 mg INHALE RQ4H WHILE AWAKE [facility] Last Admin: 09/21/22 11:31 Dose: 1 each Documented By: HANS Albuterol Sulfate 2.5 mg/ (Ipratropium [place] 0.5 mg) 0 mg INHALE Q2H PRN PRN Reason: Shortness of Breath/Wheezing Docusate Sodium (Docusate Sodium 100 Mg Capsule) 100 mg PO DAILY PRN PRN Reason: Constipation Enoxaparin Sodium (Enoxaparin Sodium 40 Mg/0.4 Ml Syringe) 40 mg SUBCUT Q24H [facility] Last Admin: 09/20/22 23:02 Dose: 40 mg Documented By: LINDA Azithromycin 500 mg/ Sodium (Chloride) 250 mls @ 125 mls/hr IV Q24H [facility] Last Infusion: 09/21/22 02:03 Dose: 0 mls/hr Documented By: LINDA Levetiracetam (Levetiracetam 500 Mg Tablet) 500 mg PO BID [facility] Last Admin: 09/21/22 10:23 Dose: 500 mg Documented By: WILFRED Methylprednisolone Sodium Succinate (Methylprednisolone Sod Succ 40 Mg/Ml Vial) 40 mg IVPUSH Q12H [facility] Last Admin: 09/21/22 06:35 Dose: 40 mg Documented By: LINDA Metoprolol Tartrate (Metoprolol Tartrate 25 Mg Tablet) 25 mg PO BID [facility]; Protocol Mirtazapine (Mirtazapine 30 Mg Tablet) 30 mg PO BEDTIME [facility] Omeprazole (Omeprazole 20 Mg Capsule.Dr) 20 mg PO DAILY@0630 [facility] Ondansetron HCl (Ondansetron Hcl 4 Mg/2 Ml Vial) 4 mg IVPUSH Q8H PRN PRN Reason: Nausea and Vomiting Pharmacy Consult (Consult Rx Perform Med Rec) 1 each MISCELLANE ONCE PRN PRN Reason: Consult order Sodium Chloride (0.9 % Sodium Chloride Flush 3 Ml Syringe) 3 ml IVFLUSH QSHIFT [facility] Last Admin: 09/21/22 07:57 Dose: Not Given Documented By: WILFRED Non-Admin Reason: IV Running Labs 09/21/22 06:30 09/21/22 06:30 Labs: Laboratory Results - last 24 hr 09/20/22 09/20/22 09/20/22 20:05 20:05 20:05 MCV 88.7 MCH 26.1 L MCHC 29.5 L RDW 13.6 Plt Count 401 H MPV 9.5 Immature Gran % (Auto) 0.3 Neut % (Auto) 90.8 H Lymph % (Auto) 5.9 L [place] % (Auto) 2.7 Eos % (Auto) 0.1 Baso % (Auto) 0.2 Lymph # (Auto) 0.7 L [place] # (Auto) 0.3 Eos # (Auto) 0.0 Baso # (Auto) 0.0 Abs Immat Gran (auto) 0.04 H Absolute Neuts (auto) 11.2 H Absolute Nucleated RBC 0.000 Nucleated RBC % (auto) 0.0 Smear Tech's Comments VERIFIED PT INR D-Dimer High Sensitivty VBG pH VBG pCO2 VBG pO2 VBG HCO3 VBG O2 Saturation VBG Base Excess Anion Gap Estim Creat Clear Calc Estimated GFR Random Glucose Lactic Acid Calcium Ferritin Total Bilirubin Direct Bilirubin AST ALT Alkaline Phosphatase Troponin I High Sens B-Natriuretic Peptide 255 H Total Protein Albumin Vitamin B12 Folate COVID-19 (LUIS ALBERTO) Negative COVID-19 Clin Com See Note Influenza Type A (DEJON) Influenza Type B (DEJON) Influenza A & B Note 09/20/22 09/20/22 09/20/22 20:05 20:32 20:33 MCV MCH MCHC RDW Plt Count MPV Immature Gran % (Auto) Neut % (Auto) Lymph % (Auto) [place] % (Auto) Eos % (Auto) Baso % (Auto) Lymph # (Auto) [place] # (Auto) Eos # (Auto) Baso # (Auto) Abs Immat Gran (auto) Absolute Neuts (auto) Absolute Nucleated RBC Nucleated RBC % (auto) Smear Tech's Comments PT INR D-Dimer High Sensitivty VBG pH VBG pCO2 VBG pO2 VBG HCO3 VBG O2 Saturation VBG Base Excess Anion Gap 17 Estim Creat Clear Calc 67.1 Estimated GFR > 60 Random Glucose 95 Lactic Acid Calcium 10.7 H Ferritin Total Bilirubin 0.5 Direct Bilirubin 0.2 AST 22 ALT 14 Alkaline Phosphatase 104 Troponin I High Sens 29.7 H B-Natriuretic Peptide Total Protein 8.5 H Albumin 4.8 Vitamin B12 Folate COVID-19 (LUIS ALBERTO) COVID-19 Clin Com Influenza Type A (DEJON) Negative Influenza Type B (DEJON) Negative Influenza A & B Note See Note 09/20/22 09/20/22 09/20/22 20:37 20:48 20:48 MCV MCH MCHC RDW Plt Count MPV Immature Gran % (Auto) Neut % (Auto) Lymph % (Auto) [place] % (Auto) Eos % (Auto) Baso % (Auto) Lymph # (Auto) [place] # (Auto) Eos # (Auto) Baso # (Auto) Abs Immat Gran (auto) Absolute Neuts (auto) Absolute Nucleated RBC Nucleated RBC % (auto) Smear Tech's Comments PT 11.8 INR 1.0 D-Dimer High Sensitivty VBG pH 7.36 VBG pCO2 87 VBG pO2 37 VBG HCO3 49 H VBG O2 Saturation 52.0 VBG Base Excess 19.2 Anion Gap Estim Creat Clear Calc Estimated GFR Random Glucose Lactic Acid 1.2 Calcium Ferritin Total Bilirubin Direct Bilirubin AST ALT Alkaline Phosphatase Troponin I High Sens B-Natriuretic Peptide Total Protein Albumin Vitamin B12 Folate COVID-19 (LUIS ALBERTO) COVID-19 Clin Com Influenza Type A (DEJON) Influenza Type B (DEJON) Influenza A & B Note 09/20/22 09/21/22 09/21/22 20:48 06:30 06:30 MCV 89.3 MCH 27.2 MCHC 30.4 L RDW 13.8 Plt Count 372 MPV 9.5 Immature Gran % (Auto) 0.5 H Neut % (Auto) 82.5 H Lymph % (Auto) 12.6 L [place] % (Auto) 4.4 Eos % (Auto) 0.0 Baso % (Auto) 0.0 Lymph # (Auto) 0.8 L [place] # (Auto) 0.3 Eos # (Auto) 0.0 Baso # (Auto) 0.0 Abs Immat Gran (auto) 0.03 Absolute Neuts (auto) 4.9 Absolute Nucleated RBC 0.000 Nucleated RBC % (auto) 0.0 Smear Tech's Comments PT INR D-Dimer High Sensitivty 244 VBG pH VBG pCO2 VBG pO2 VBG HCO3 VBG O2 Saturation VBG Base Excess Anion Gap 12 Estim Creat Clear Calc 70.6 Estimated GFR > 60 Random Glucose 114 Lactic Acid Calcium 9.0 D Ferritin Total Bilirubin Direct Bilirubin AST ALT Alkaline Phosphatase Troponin I High Sens B-Natriuretic Peptide Total Protein Albumin Vitamin B12 Folate COVID-19 (LUIS ALBERTO) COVID-19 Clin Com Influenza Type A (DEJON) Influenza Type B (DJEON) Influenza A & B Note 09/21/22 09/21/22 09/21/22 06:30 06:30 06:30 MCV MCH MCHC RDW Plt Count MPV Immature Gran % (Auto) Neut % (Auto) Lymph % (Auto) [place] % (Auto) Eos % (Auto) Baso % (Auto) Lymph # (Auto) [place] # (Auto) Eos # (Auto) Baso # (Auto) Abs Immat Gran (auto) Absolute Neuts (auto) Absolute Nucleated RBC Nucleated RBC % (auto) Smear Tech's Comments PT INR D-Dimer High Sensitivty VBG pH VBG pCO2 VBG pO2 VBG HCO3 VBG O2 Saturation VBG Base Excess Anion Gap Estim Creat Clear Calc Estimated GFR Random Glucose Lactic Acid Calcium Ferritin 83 Total Bilirubin Direct Bilirubin AST ALT Alkaline Phosphatase Troponin I High Sens 14.1 D B-Natriuretic Peptide Total Protein Albumin Vitamin B12 307 Folate 4.9 COVID-19 (LUIS ALBERTO) COVID-19 Clin Com Influenza Type A (DEJON) Influenza Type B (DEJON) Influenza A & B Note 09/21/22 06:36 MCV MCH MCHC RDW Plt Count MPV Immature Gran % (Auto) Neut % (Auto) Lymph % (Auto) [place] % (Auto) Eos % (Auto) Baso % (Auto) Lymph # (Auto) [place] # (Auto) Eos # (Auto) Baso # (Auto) Abs Immat Gran (auto) Absolute Neuts (auto) Absolute Nucleated RBC Nucleated RBC % (auto) Smear Tech's Comments PT INR D-Dimer High Sensitivty VBG pH 7.48 H VBG pCO2 60 VBG pO2 81 VBG HCO3 45 H VBG O2 Saturation 99.0 VBG Base Excess 19.3 Anion Gap Estim Creat Clear Calc Estimated GFR Random Glucose Lactic Acid Calcium Ferritin Total Bilirubin Direct Bilirubin AST ALT Alkaline Phosphatase Troponin I High Sens B-Natriuretic Peptide Total Protein Albumin Vitamin B12 Folate COVID-19 (LUIS ALBERTO) COVID-19 Clin Com Influenza Type A (DEJON) Influenza Type B (DEJON) Influenza A & B Note Assessment and Plan (1) Acute exacerbation of COPD with asthma: Status: Acute (2) Normocytic anemia: Status: Acute (3) Moderate malnutrition: Status: Acute Plan 56-year-old female with past medical history of COPD /asthma, CHF, CVA, CAD, presents the hospital with shortness of breath, cough as well as sputum production #? acute COPD exacerbation with asthma -? has increased cough, sputum production, as well as dyspnea - ? slightly elevated? CO2 retention but patient refused BiPAP, she is? A&O x4 -? will treat with Solu-Medrol, DuoNeb p.r.n. as well as scheduled, azithromycin for underlying COPD vbg noted , monitor mental status #? acute on chronic? respiratory acidosis -? elevated CO2, pH of 7.36 bnp 255 -? patient A&O x4 #? normocytic anemia -? appears to have a drop in hemoglobin -? possibly dilutional -? repeat CBC -? will obtain ferritin, folic acid and B12 levels -? monitor H&H #? history of CVA -? continue aspirin, statin #? history of CAD -? no chest pain -? continue ASA, metoprolol #? history of CHF with reduced ejection fraction -? documented? takotsubo -? no evidence of exacerbation at this time with no lower extremity edema, no orthopnea, no PND -? monitor respiratory status,? if worsened can repeat BNP #? seizure disorder -? continue Keppra Moderate malnutrition: Nutrition eval, will add supplements. ?DVT prophylaxis: ? Lovenox ongoin inpatient need: acute COPD exacerbation with asthma-need iv steriods ,nebs ,azithromycin Time Spent With Patient Time: Total time managing care of this patient today ____ minutes. Quality Stroke Does the patient have a stroke diagnosis?: No VTE Prior VTE?: No VTE Risk Level:: Medical - moderate - high VTE Device Contraindication: Treatment Not Indicated VTE Drug Contraindication: N/A - Med Ordered
[2022-09-21] MEDS: 0.9 % Sodium Chloride Flush 3 ML SYRINGE IVFLUSH (16:09)
--- NOTE | 2022-09-21 16:22 | MHC.EDTECH ---
THIS PCT ASSUMED CARE OF PT AT THIS TIME ,PT VITALS SIGN TAKEN ,PT WATCHING TELEVISION .
[2022-09-21] MEDS: Atorvastatin Calcium 40 MG TABLET PO (20:03)
[2022-09-21] MEDS: Metoprolol Tartrate 25 MG TABLET PO (20:03)
[2022-09-21] MEDS: Mirtazapine 30 MG TABLET PO (22:08)
[2022-09-21] MEDS: Enoxaparin Sodium 40 MG/0.4 ML SYRINGE SUBCUT (22:09)
[2022-09-21] MEDS: Azithromycin 500 MG in 0.9 % Sodium Chloride 250 ML 125 MG IV (22:21)
[2022-09-22] VITALS (13 sets, daily range): BP systolic 118–184; BP diastolic 48–79; PULSE 68–108; RESP 16–22; TEMP 36.2–37.2; O2SAT 89–99; BMI 17.9
[2022-09-22] MEDS: 0.9 % Sodium Chloride Flush 3 ML SYRINGE IVFLUSH ×3 (00:14→16:33)
[2022-09-22] MEDS: methylPREDNISolone Sod Succ 40 MG/ML VIAL IVPUSH (06:14)
[2022-09-22] MEDS: Omeprazole 20 MG CAPSULE.DR PO ×2 (08:43→16:33)
[2022-09-22] MEDS: Metoprolol Tartrate 25 MG TABLET PO ×2 (08:43→20:57)
[2022-09-22] MEDS: levETIRAcetam 500 MG TABLET PO ×2 (08:43→20:57)
[2022-09-22] MEDS: Aspirin 81 MG TAB.CHEW PO (08:43)
[2022-09-22] MEDS: predniSONE 10 MG TABLET 50 MG PO (09:52)
[2022-09-22] MEDS: amLODIPine Besylate 2.5 MG TABLET PO (09:52)
--- NOTE | 2022-09-22 11:26 | MHC.CLN ---
RE: CONSULT PT IS MODERATELY MALNOURISHED PT WITH MILD DEPLETION OF SUBCUTANEOUS FAT AND MUSCLE MASS, BMI 18 AND PT REPORTS CHRONIC POOR PO PT REPORTS 40# WT LOSS X 6 MONTHS, HOWEVER PREVIOUS WT HX REVEALS 42.3KG (08/27/21) 4.5% NONSIGNIFICANT WT LOSS X 1 YEAR DIET RX: REGULAR-APPROPRIATE RECOMMEND ADDING ENSURE BID TO INCREASE KCALS SUPP TO PROVIDE 700KCALS, 40G PROTEIN (PREFERS CHOCOLATE FLAVOR) MONITOR PO INTAKE CLOSELY SEE ALSO FULL CLINICAL NUTRITION ASSESSMENT
--- NOTE | 2022-09-22 16:09 | P.PNIM_ITS ---
Subjective Subjective Date of Service: 09/23/22 Interval History: COPD exacerbation, nausea Review of Systems Patient still feeling short of breath, still says and nausea and 1 episode of vomiting, feeling tired Physical Exam Vital Signs: Vital Signs: Last Vital Signs Temp 97.7 F 09/22/22 15:15 Pulse 106 H 09/22/22 15:38 Resp 20 09/22/22 15:38 BP 141/62 H 09/22/22 15:15 Pulse Ox 90 L 09/22/22 15:15 O2 Del Method 09/22/22 15:15 O2 Flow Rate 2.5 09/22/22 07:31 BMI result Body Mass Index 17.9 Appearance: Alert.? Oriented X3.? sob cvs: rrr, [id number] , no murmur res: air entry diminshed ,has b/l wheezin abd: no rebound or guarding ,nt, bs present. ext pulses present , no cyanosis. neuro: axo3 , nonfocal. Objective Data Active Medications Acetaminophen (Acetaminophen 325 Mg Tablet) 650 mg PO Q6H PRN PRN Reason: Pain, Mild (Pain Scale 1-3) Amlodipine Besylate (Amlodipine Besylate 2.5 Mg Tablet) 2.5 mg PO DAILY [facility]; Protocol Last Admin: 09/22/22 09:52 Dose: 2.5 mg Documented By: ABI Aspirin (Aspirin 81 Mg Tab.Chew) 81 mg PO DAILY [facility] Last Admin: 09/22/22 08:43 Dose: 81 mg Documented By: ABI Atorvastatin Calcium (Atorvastatin Calcium 40 Mg Tablet) 40 mg PO BEDTIME [facility] Last Admin: 09/21/22 20:03 Dose: 40 mg Documented By: LONNIE Albuterol Sulfate 2.5 mg/ (Ipratropium Bell 0.5 mg) 0 mg INHALE RQ4H WHILE AWAKE [facility] Last Admin: 09/22/22 15:36 Dose: 2.5 each Documented By: SVETA Albuterol Sulfate 2.5 mg/ (Ipratropium Bell 0.5 mg) 0 mg INHALE Q2H PRN PRN Reason: Shortness of Breath/Wheezing Docusate Sodium (Docusate Sodium 100 Mg Capsule) 100 mg PO DAILY PRN PRN Reason: Constipation Enoxaparin Sodium (Enoxaparin Sodium 40 Mg/0.4 Ml Syringe) 40 mg SUBCUT Q24H [facility] Last Admin: 09/21/22 22:09 Dose: 40 mg Documented By: RANCHO Azithromycin 500 mg/ Sodium (Chloride) 250 mls @ 125 mls/hr IV Q24H [facility] Last Infusion: 09/22/22 00:23 Dose: 0 mls/hr Documented By: JAZMINE Levetiracetam (Levetiracetam 500 Mg Tablet) 500 mg PO BID [facility] Last Admin: 09/22/22 08:43 Dose: 500 mg Documented By: ABI Metoprolol Tartrate (Metoprolol Tartrate 25 Mg Tablet) 25 mg PO BID [facility]; Protocol Last Admin: 09/22/22 08:43 Dose: 25 mg Documented By: ABI Mirtazapine (Mirtazapine 30 Mg Tablet) 30 mg PO BEDTIME [facility] Last Admin: 09/21/22 22:08 Dose: 30 mg Documented By: RANCHO Omeprazole (Omeprazole 20 Mg Capsule.Dr) 20 mg PO BID@0630,1630 [facility] Ondansetron HCl (Ondansetron Hcl 4 Mg/2 Ml Vial) 4 mg IVPUSH Q8H PRN PRN Reason: Nausea and Vomiting Pharmacy Consult (Consult Rx Perform Med Rec) 1 each MISCELLANE ONCE PRN PRN Reason: Consult order Prednisone (Prednisone 10 Mg Tablet) 50 mg PO DAILY [facility] Last Admin: 09/22/22 09:52 Dose: 50 mg Documented By: ABI Sodium Chloride (0.9 % Sodium Chloride Flush 3 Ml Syringe) 3 ml IVFLUSH QSHIFT [facility] Last Admin: 09/22/22 08:44 Dose: 3 ml Documented By: ABI Labs 09/21/22 06:30 09/21/22 06:30 Microbiology Microbiology Results: Microbiology 09/20/22 20:32 Blood Culture - Preliminary Blood - Venous No growth after 24 hours. 09/20/22 20:23 Blood Culture - Preliminary Blood - Venous No growth after 24 hours. Assessment and Plan (1) Acute exacerbation of COPD with asthma: Status: Acute (2) Normocytic anemia: Status: Acute (3) Moderate malnutrition: Status: Acute Plan 56-year-old female with past medical history of COPD /asthma, CHF, CVA, CAD, presents the hospital with shortness of breath, cough as well as sputum production #? acute COPD exacerbation with asthma -? has increased cough, sputum production, as well as dyspnea - ? slightly elevated? CO2 retention but patient refused BiPAP, she is? A&O x4 -? will treat with Solu-Medrol, DuoNeb p.r.n. as well as scheduled, azithromycin for underlying COPD vbg noted , monitor mental status she also has nausea ,feels lightheadness ,very anxious -seems anxiety symptoms #? acute on chronic? respiratory acidosis -? elevated CO2, pH of 7.36 bnp 255 -? patient A&O x4 #? normocytic anemia -? appears to have a drop in hemoglobin -? possibly dilutional -? repeat CBC -? will obtain ferritin, folic acid and B12 levels -? monitor H&H #? history of CVA -? continue aspirin, statin #? history of CAD -? no chest pain -? continue ASA, metoprolol #? history of CHF with reduced ejection fraction -? documented? takotsubo -? no evidence of exacerbation at this time with no lower extremity edema, no orthopnea, no PND -? monitor respiratory status,? if worsened can repeat BNP #? seizure disorder -? continue Keppra Moderate malnutrition: Nutrition eval, will add supplements. ?DVT prophylaxis: ? Lovenox ongoin inpatient need: copd execerabtion -acute COPD exacerbation with asthma- need iv steriods ,nebs ,azithromycin. Time Spent With Patient Time: Total time managing care of this patient today ____ minutes. Quality Stroke Does the patient have a stroke diagnosis?: No VTE Prior VTE?: No VTE Risk Level:: Medical - moderate - high VTE Device Contraindication: Treatment Not Indicated VTE Drug Contraindication: N/A - Med Ordered
[2022-09-22] MEDS: ondansetron HCL 4 MG/2 ML VIAL IVPUSH (16:33)
[2022-09-22] MEDS: ALPRAZolam 0.5 MG TABLET PO (16:33)
[2022-09-22] MEDS: Mirtazapine 30 MG TABLET PO (20:57)
[2022-09-22] MEDS: Atorvastatin Calcium 40 MG TABLET PO (20:57)
[2022-09-23] MEDS: Azithromycin 500 MG in 0.9 % Sodium Chloride 250 ML 125 MG IV (00:26)
[2022-09-23] MEDS: 0.9 % Sodium Chloride Flush 3 ML SYRINGE IVFLUSH ×3 (00:28→16:56)
[2022-09-23] MEDS: Enoxaparin Sodium 40 MG/0.4 ML SYRINGE SUBCUT (00:28)
[2022-09-23 03:27] VITALS: BP 112/62; PULSE 72; RESP 16; TEMP 35.9; O2SAT 100
[2022-09-23] MEDS: Omeprazole 20 MG CAPSULE.DR PO ×2 (06:33→16:56)
[2022-09-23 08:00] VITALS: BP 119/47; PULSE 77; RESP 16; TEMP 36.4; O2SAT 99
[2022-09-23] MEDS: predniSONE 10 MG TABLET 50 MG PO (08:35)
[2022-09-23] MEDS: Metoprolol Tartrate 25 MG TABLET PO (08:35)
[2022-09-23] MEDS: levETIRAcetam 500 MG TABLET PO (08:35)
[2022-09-23] MEDS: Aspirin 81 MG TAB.CHEW PO (08:36)
[2022-09-23 11:36] VITALS: PULSE 107; RESP 20; O2SAT 90
--- NOTE | 2022-09-23 11:59 | P.F2F_ITS ---
Service Date Service Date: 09/23/22 Encounter Date of encounter: 09/23/22 Encounter: COPD exacerbation Reasons for Services Signs and symptoms assessed: Shortness of breath or any chest tightness. Reason for halfway: medication management, medication treatment and teach disease management Homebound: Leaving the home is medically contraindicated at this time without the asist of a device and/or another person due th the listed conditions above and below. Reason homebound: weakness related to hospital stay Certification: Based on the above findings, I certify that this patient is confined to the home and needs intermittent halfway care, physical therapy and/or speech therapy, or continues to need occupational therapy. The patient is under my care, and I have initiated the establishment of the plan of care. The patient will be followed by a physician who will periodically review the plan of care. Time Spent With Patient Time: Total time managing care of this patient today ____ minutes.
--- NOTE | 2022-09-23 13:06 | PM.DS ---
DS: Providers Provider Date of Service: 09/23/22 Date of admission: 09/20/22 22:16 Primary care physician: Brianna Gonzalez MD Admitting clinician: Mono Traore Attending physician on discharge: Les Ribeiro DS: Diagnosis Discharge Diagnosis (1) Acute exacerbation of COPD with asthma: Status: Acute (2) Normocytic anemia: Status: Acute (3) Moderate malnutrition: Status: Acute DS: Summary Hospital Course Hospital Course: 56-year-old female with past medical history of CVA, CAD, major depression disorder,? takotsubo cardiomyopathy, new onset seizures, COPD /asthma on baseline 2-3 L of oxygen, presents to the hospital with complaints of shortness of breath.? Patient reports dyspnea, cough, increased sputum production for the past 2 days.? Not improved with her breathing treatments at home.? Patient reports no fever no chills, no chest pain, no abdominal pain nausea or vomiting, no diarrhea constipation, no urinary symptoms and no lower extremity edema.? Patient is not confused, alert and oriented answers questions appropriately .? denies any orthopnea, PND, no lower extremity edema. ?vitals are significant for a heart rate of 120, otherwise stable Labs are significant for WBC count of 12.3, hemoglobin of 10.4, medical 35.3, pH of 7.36 with a CO2 of 87, bicarb of 40, calcium of 10.7, troponin of 29.7, BNP of 255, ? Chest x-ray? revealed increased bilateral perihilar and lower lobe opacity likely residual inflammatory infectious process seen on previous exam done on 08/16 2021.? No new findings. Hospital course: Patient was admitted for COPD exacerbation: Started on nebs, steroids, antibiotics seems to be improved significantly going home. Continue home oxygen due to chronic respiratory failure secondary to COPD. Hypertension: Blood pressure is slightly fluctuating. Continue home medications. Normocytic anemia: H&H stable around 9.4/30.9 range: Monitor CBC outpatient and further management outpatient. moderate malnutrition: encouraged for po intake ,as well as consider outpatient supplements if needed. plan: complete course of antibiotics and steriods. moniter cbc outpatiently. Above management discussed with patient in detail length and her daughter indetailed length -they understand and in agreement to the plan, time spent 50 minutes. Time Spent with Patient Time attestation: Total time managing care of this patient today ____ minutes. Discharge coordination time: Greater than 30 minutes Quality: Safe Use of Opioids Does Pt have an Active Cancer Diagnosis on the Problem List?: No Quality: Stroke Does the patient have a stroke diagnosis?: No Physical Exam Vital Signs: Vital Signs: Last Vital Signs Temp 97.5 F 09/23/22 08:00 Pulse 107 H 09/23/22 11:36 Resp 20 09/23/22 11:36 BP 119/47 L 09/23/22 08:00 Pulse Ox 99 09/23/22 08:00 O2 Del Method 09/23/22 08:00 O2 Flow Rate 2 09/23/22 08:00 BMI result Body Mass Index 17.9 ?Appearance: Alert.? Oriented X3.? sob cvs: rrr, [id number] , no murmur res: air entry diminshed ,has b/l wheezin abd: no rebound or guarding ,nt, bs present. ext pulses present , no cyanosis. neuro: axo3 , nonfocal. DS: Data Data Completed and Pending Completed studies during hospitalization [Text1]: Procedures Assistance with Respiratory Ventilation, 24-96 Consecutive Hours, Continuous Positive Airway Pressure (08/16/21) Insertion of Infusion Device into Superior Vena Cava, Percutaneous Approach (08/16/21) Introduction of Remdesivir Anti-infective into Central Vein, Percutaneous Approach, [employer] 5 (08/16/21) Labs on day of discharge: Preliminary micro results at discharge 09/20/22 20:32 Blood Culture - Preliminary Blood - Venous No growth after 48 hours. 09/20/22 20:23 Blood Culture - Preliminary Blood - Venous No growth after 48 hours. Imaging Chest x-ray: Radiologist's impression: ITS Impressions Chest X-Ray 09/20/22 19:05 IMPRESSION: Hyperinflated lungs with persistent increase bilateral parahilar and lower lobe opacities likely residual inflammatory or infectious process from previous exam 08/16/2021. Discharge Plan Discharge Anticipated Discharge Date/Time: 09/22/22 15:05 Patient Disposition: Home, Self-Care Discharge Diagnosis: acute COPD exacerbation with asthma Referrals: Brianna Gonzalez MD [Primary Care Provider] - 1 Week Discharge Medications: New azithromycin 250 mg tablet 250 mg PO DAILY 4 Days Qty: 4 0RF prednisone 20 mg tablet 40 mg PO DAILY Qty: 8 0RF Continued aspirin 81 mg tablet,chewable 81 mg PO DAILY Qty: 120 0RF Rx Instructions: offer OTC first levetiracetam 500 mg tablet 500 mg PO BID Qty: 60 0RF ipratropium-albuterol 0.5 mg-3 mg(2.5 mg base)/3 mL solution for nebulization 1 ml inhalation TID PRN (Reason: shortness of breath) 30 Days Qty: 180 5RF metoprolol tartrate 25 mg tablet 25 mg PO BID Qty: 60 0RF albuterol sulfate 90 mcg/actuation HFA aerosol inhaler 2 puff PO Q6H PRN (Reason: bronchospasm) 30 Days Qty: 6.7 5RF atorvastatin 40 mg tablet 40 mg PO BEDTIME 90 Days Qty: 90 0RF baclofen 5 mg tablet 10 mg PO DAILY Changed omeprazole 20 mg capsule,delayed release(DR/EC) 20 mg PO BID 90 Days Qty: 90 0RF No Action mirtazapine 30 mg tablet 30 mg PO BEDTIME 30 Days Qty: 30 0RF Discharge Orders: Discharge Order (Routine); Ordered 09/23/22 Ordered By: Les Ribeiro Diet: Advance to usual diet Activity on Discharge: As tolerated Stand Alone Forms: Patient Portal Discharge page Other Ambulatory Orders: Complete Blood Count no Diff (Routine) Timeframe: 1 Week Facility: [facility] - Location: Laboratory Ordered By: Les Ribeiro Care Plan Goals: Patient was admitted for COPD exacerbation: Started on nebs, steroids, antibiotics seems to be improved significantly going home. Continue home oxygen due to chronic respiratory failure secondary to COPD. Hypertension: Blood pressure is slightly fluctuating. Continue home medications. Normocytic anemia: H&H stable around 9.5 range: Monitor CBC outpatient and further management outpatient. Health Concerns: As above. Plan of Treatment: As above. Assessment: As above. So Discharge Date/Time: 09/23/22 19:52
--- NOTE | 2022-09-23 13:22 | MHC.CM.PN ---
Patient is discharged home today self care. Patients dtr will assist with transport to home today. A [employer] tank has been provided by [facility], for the trip home.
[2022-09-23] MEDS: Acetaminophen 325 MG TABLET 650 MG PO (14:48)
--- NOTE | 2022-09-23 16:37 | PC.NURSE ---
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 Patient was also asked to contact her daughter. MD and caser up informed of the situation.
== END 2022-09-23 19:52 | disposition home or self-care (01) | DRG 140 ==
LOC: HO.ED 21:48 → HO.EDOVER 23:01 → HO.IMC 09-21 17:30
PROVIDERS: Admitting Provider Internal Medicine; Emergency Provider Emergency Medicine; PCP Internal Medicine; Visit Provider Internal Medicine
DX: J44.1 Chronic obstructive pulmonary disease with (acute) exacerbation (principal); J96.22 Acute and chronic respiratory failure with hypercapnia; E44.0 Moderate protein-calorie malnutrition; I50.22 Chronic systolic (congestive) heart failure; I11.0 Hypertensive heart disease with heart failure; Z99.81 Dependence on supplemental oxygen; I69.351 Hemiplegia and hemiparesis following cerebral infarction affecting right dominant side; G40.909 Epilepsy, unspecified, not intractable, without status epilepticus; F32.9 Major depressive disorder, single episode, unspecified; I51.81 Takotsubo syndrome; I25.10 Atherosclerotic heart disease of native coronary artery without angina pectoris; D64.9 Anemia, unspecified; J45.41 Moderate persistent asthma with (acute) exacerbation; F41.1 Generalized anxiety disorder; Z68.1 Body mass index [BMI] 19.9 or less, adult; I25.2 Old myocardial infarction; Z20.822 Contact with and (suspected) exposure to COVID-19; Z87.891 Personal history of nicotine dependence; Z88.0 Allergy status to penicillin; Z79.82 Long term (current) use of aspirin; Z79.899 Other long term (current) drug therapy
CPT/HCPCS: 36415; 71045; 80048; 80076; 82607; 82728; 82746; 82803; 83605; 83880; 84484; 85025; 85379; 85610; 87040; 87502; 87635; 93005; 94640; 96361; 96365; 96375; 99222; 99285; J0456; J1650; J1956; J2405; J2920; J2930; J3475

== ENCOUNTER 2022-10-20 15:16 | Outpatient (REF) | payer OTHER, SELFPAY ==
[2022-10-20 16:37] LABS: MANUAL DIFF FLAG NO
[2022-10-20 16:43] LABS: Basophils Percent Auto 0.4 % (0-2); Eosinophils Absolute Auto 0.1 X10*3/uL (0.0-0.4); Eosinophils Percent Auto 1.1 % (0-4); Hemoglobin 11.3 g/dl (12.0-16.0); Imm Gran Abs Auto 0.03 X10*3/uL (0.00-0.03); Imm Gran Pct Auto 0.4 % (0.0-0.4); Lymphocytes Absolute Auto 1.6 X10*3/uL (1.2-4.9); Lymphocytes Percent Auto 18.6 % (20-40); Mean Corpuscular Hemoglobin 26.3 pg (27.0-33.0); Mean Corpuscular Volume 90.7 fL (80.0-98.0); Mean Platelet Volume 10.5 fL (9.4-12.3); Monocytes Absolute Auto 0.7 X10*3/uL (0.1-1.2); Monocytes Percent Auto 8.1 % (2-11); Neutrophils Absolute Auto 6.1 x10*3/uL (2.0-8.3); Neutrophils Percent Auto 71.4 % (45-73); Platelet Count 316 X10*3/uL (160-400); Red Cell Distribution Width 14.5 % (11.0-16.0); White Blood Count 8.5 X10*3/uL (4.8-10.8)
== END 2022-10-20 15:17 | disposition home or self-care (01) ==
LOC: HO.HMGCLDS 15:16
PROVIDERS: PCP Internal Medicine; Visit Provider Internal Medicine
DX: D64.9 Anemia, unspecified (principal); E44.0 Moderate protein-calorie malnutrition; J98.4 Other disorders of lung; F33.9 Major depressive disorder, recurrent, unspecified; I42.9 Cardiomyopathy, unspecified; J44.9 Chronic obstructive pulmonary disease, unspecified; G47.9 Sleep disorder, unspecified; M62.838 Other muscle spasm; I69.351 Hemiplegia and hemiparesis following cerebral infarction affecting right dominant side; Z99.81 Dependence on supplemental oxygen
CPT/HCPCS: 36415; 84443; 85025

== ENCOUNTER 2023-01-04 08:43 | Emergency (ER) | payer OTHER, SELFPAY ==
--- NOTE | ~2023-01-04 | XR_ITS ---
EXAMINATION: XR CHEST CLINICAL INFORMATION: Shortness of breath. COMPARISON: September 20, 2022. TECHNIQUE: Portable AP view of the chest was obtained. XR/XR chest 1V FINDINGS/IMPRESSION: There is no acute radiographic finding. No focal infiltrate, effusion, pneumothorax is seen. Suspect emphysema. The cardiovascular structures, mediastinum, diaphragm, bones, and soft tissues appear unremarkable.
--- NOTE | 2023-01-04 08:47 | ED_ITS ---
HPI - General Adult General Chief complaint: Dyspnea Stated complaint: Diff breathing Time Seen by Provider: 01/04/23 08:47 Source: patient Mode of arrival: ambulatory Limitations: no limitations History of Present Illness HPI narrative: Patient is a 57 year old assigned female at with a history of COPD, oxygen dependent, presenting to the emergency department today with shortness of breath. Patient states that she had come to the ER to check in her daughter when she realized that her oxygen tank was empty. Patient states that she was without her oxygen for approximately 30 minutes and began to have some increased shortness of breath. Patient denies any dizziness, lightheadedness, abdominal pain, nausea, vomiting, fever, chills, blurry vision, double vision, loss of vision, chest pain, back pain, night sweats, pain with urination, increased urinary frequency, increased urinary urgency, blood in [his/her/their] urine or stool, syncope or a near syncopal episode, recent trauma or falls, bowel incon tinence, bladder incontinence, bowel retention, bladder retention, or any other complaints at this time. Onset (ago): minute(s) (30) Severity: mild Relieving factors: none Exacerbating factors: none Associated symptoms: denies other symptoms Treatments prior to arrival: none Related Data Home Medications Medication Instructions Recorded Confirmed baclofen 5 mg tablet 5 mg PO DAILY 10/20/22 10/20/22 aspirin 81 mg tablet,delayed 81 mg PO DAILY 10/21/22 release (Adult Low Dose Aspirin) Previous Rx's Medication Instructions Recorded albuterol sulfate 90 mcg/actuation 2 puff PO Q6H PRN bronchospasm 30 10/20/22 aerosol inhaler days #6.7 grams amlodipine 5 mg tablet 5 mg PO DAILY 90 days #90 tabs 10/20/22 metoprolol tartrate 25 mg tablet 25 mg PO BID 90 days #180 tabs 10/20/22 mirtazapine 30 mg tablet 30 mg PO BEDTIME 90 days #90 tabs 10/20/22 omeprazole 20 mg capsule,delayed 20 mg PO ONCE 90 days #90 caps 10/20/22 release sertraline 25 mg tablet 25 mg PO DAILY 90 days #90 tabs 10/20/22 aspirin 81 mg chewable tablet 81 mg PO DAILY #120 tabs 12/21/22 atorvastatin 40 mg tablet 40 mg PO BEDTIME 90 days #90 tabs 12/21/22 ipratropium 0.5 mg-albuterol 3 mg 1 ml inhalation TID PRN shortness 12/21/22 (2.5 mg base)/3 mL nebulization of breath 30 days #180 mL soln Allergies Allergy/AdvReac Type Severity Reaction Status Date / Time crab Allergy Unknown Hives Verified 01/04/23 08:55 penicillin V Allergy Unknown hives Verified 01/04/23 08:55 Penicillins [PENICILLINS] Allergy Unknown hives Verified 01/04/23 08:55 SEASONAL ALLERGIES Allergy Mild RUNNY NOSE Uncoded 01/04/23 08:55 Review of Systems Constitutional: Constitutional: Reports no additional constitutional complaint s, Denies chills, Denies fever(s) and Denies night sweats Eyes: Eyes: Reports no additional eye complaints, Denies blurry vision, Denies change in vision, Denies diplopia, Denies eye discharge, Denies loss of vision and Denies eye pain ENT: Denies dizziness Cardiovascular: Cardiovascular: Reports no additional cardiovascular complaints, Denies chest pain, Denies lightheadedness, Denies Loss of Consciousness and Reports dyspnea Respiratory: Respiratory: Reports no additional respiratory complaints and Re ports dyspnea Gastrointestinal: Gastrointestinal: Reports no additional gastrointestinal complaints, Denies abdominal pain, Denies melena, Denies hematochezia, Denies change in bowel habits and Denies change in stool character Genitourinary: Genitourinary: Denies hematuria, Denies urinary frequency, Denies dysuria, Denies urinary incontinence, Denies urinary hesitancy and Denies urinary urgency Musculoskeletal: Musculoskeletal: Reports no additional musculoskeletal complaints, Denies numbness and Denies tingling Neurologic: Denies dizziness, Denies loss of vision, Denies numbness and Denies tingling Psychiatric: Psychiatric: Reports no additional psychiatric complaints Endocrine: Endocrine: Reports no additional endocrine complaints Hematologic/Lymphatic: Hematologic/Lymphatic: Reports no additional hematologic/lymphatic complaints Allergic/Immunologic: Allergic/Immunologic: Reports no additional allergic/immunologic complaints PMFSH Past Medical History Attestation statement: The following information was validated with the patient. Source: old records reviewed and nursing notes reviewed Medical History Acute CHF (congestive heart failure) Anxiety, generalized Apical myocardial infarction Arthrosis Asthma, moderate Asymptomatic carotid artery stenosis with infarction Chronic GERD Cocaine abuse COPD mixed type COVID-19 virus infection Difficulty sleeping Environmental allergies Exacerbation of asthma Hemiparesis affecting right side as late effect of cerebrovascular accident Hypercapnic respiratory failure, chronic Lipid disorder Oxygen dependent Respiratory failure Tobacco abuse Surgical History History of tonsillectomy and adenoidectomy Family History Family History Father Substance abuse Mother Brain cancer Maternal Grandfather History of heart attack Maternal Grandmother History of heart attack Paternal Grandfather No problems noted. Paternal Grandmother No problems noted. Brother No problems noted. Brother No problems noted. Son No problems noted. Daughter No problems noted. 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8 F Pulse Rate 91 90 89 Respiratory Rate 18 21 H 21 H Blood Pressure 192/70 H 153/65 H Pulse Oximetry 90 L 99 Oxygen Delivery Method Nasal Cannula Room Air Oxygen Flow Rate 01/04/23 10:49 Temperature Pulse Rate 113 H Respiratory Rate 22 H Blood Pressure 205/61 H Pulse Oximetry 93 Oxygen Delivery Method Nasal Cannula Oxygen Flow Rate 4 BMI result Body Mass Index 15.1 Const General: cooperative, no acute distress, alert and awake Nutritional Appearance: well nourished Orientation/consciousness: patient oriented x3 Limitations: no limitations HENMT Head: Yes normal to inspection and Yes atraumatic Ears: hearing grossly normal bilaterally and external ears normal General nose exam: Normal external nose present, no nasal discharge noted and no epistaxis Face and sinus: Yes normal facial exam, No abrasion and No laceration Mouth: Normal oral and palatal mucosa present, no drooling and no muffled voice Eyes General: appearance normal, both eyes and all related structures Periorbital: periorbital findings normal Eyelids: Yes eyelids normal Conjunctivae: conjunctivae normal Pupils: Equal, round and reactive pupils present EOM: EOMs intact bilaterally Neck Neck: Yes normal visual inspection, Yes full ROM and Yes no lymphadenopathy Chest Chest palpation & inspection: normal inspection of the chest Resp Effort & Inspection: normal respiratory effort and able to speak in complete sentences Auscultation: clear to auscultation bilaterally Cardio Rate: regular rate Rhythm: regular rhythm GI Inspection: Yes normal to inspection Neuro General: patient oriented x3 and moves all extremities Cranial nerves: Yes Equal, round and reactive pupils present Cognition (Neuro): normal cognition Motor exam (neuro): 5/5 motor strength present throughout Sensory Exam: Normal double simultaneous stimulation for sensation Coordination: [id number] test normal Extrem General: Yes normal to inspection, Yes full ROM and Yes capillary refill normal Psych Appearance: grossly normal Mental Status: mental status grossly normal Affect: normal affect Attitude: cooperative Thought process: Normal thought process present Thought content: Normal thought content present Insight: Good insight present (Psych) Medications Administered Discontinued Medications Generic Name Dose Route Start Last Admin Trade Name Freq PRN Reason Stop Dose Admin Albuterol Sulfate 10 mg 01/04/23 08:52 01/04/23 09:15 Albuterol Sulfate (0.083%) 2.5 Mg/3 Ml Vial.Neb INHALE 01/04/23 08:53 10 mg ONCE ONE Administration Medical Decision Making Medical Decision Making [facility] Narrative: Patient is a 57 year old assigned female at with a history of COPD requiring oxygenation presenting to the emergency department today with shortness of breath secondary to lack of oxygen use. Patient's physical exam was unremarkable. Patient's blood work was consistent with the patient's baseline. Patient's chest x-ray showed no acute process. Patient was placed back on her baseline oxygen and given a breathing treatment which she states resolved her symptoms entirely. I explained my physical exam findings as well as all test results to the patient. I answered all questions asked by the patient. I stressed the importance of the patient taking her medication as prescribed. I stressed the importance of the patient following up with her primary care provider. I stressed the importance of the patient returning to the emergency department immediately if her symptoms were to worsen or if she were to develop any dizziness, shortness of breath, difficulty breathing, chest pain, blurry vision, loss of vision, nausea, vomiting, abdominal pain, fever, chills, back pain, or any other complaints. Patient verbalized agreement and understanding with this treatment plan and discharge. Differential Diagnosis Differential Diagnoses: The differential diagnosis associated with the presentation includes COPD Lab Data MDM Lab Attestation statement: I reviewed the patient's lab results. 01/04/23 09:10 01/04/23 09:10 Labs: Lab Results 01/04/23 01/04/23 Range/Units 09:10 09:10 WBC 8.8 (4.8-10.8) X10*3/uL RBC 4.18 L (4.20-5.50) X10*6/uL Hgb 10.7 L (12.0-16.0) g/dl Hct 38.4 (37.0-47.0) % MCV 91.9 (80.0-98.0) fL MCH 25.6 L (27.0-33.0) pg MCHC 27.9 L (31.0-35.0) g/dl RDW 14.1 (11.0-16.0) % Plt Count 229 D (160-400) X10*3/uL MPV 10.1 (9.4-12.3) fL Immature Gran % (Auto) 0.1 (0.0-0.4) % Neut % (Auto) 68.4 (45-73) % Lymph % (Auto) 20.7 (20-40) % [place] % (Auto) 8.5 (2-11) % Eos % (Auto) 2.1 (0-4) % Baso % (Auto) 0.2 (0-2) % Lymph # (Auto) 1.8 (1.2-4.9) X10*3/uL [place] # (Auto) 0.8 (0.1-1.2) X10*3/uL Eos # (Auto) 0.2 (0.0-0.4) X10*3/uL Baso # (Auto) 0.0 (0.0-0.2) X10*3/uL Abs Immat Gran (auto) 0.01 (0.00-0.03) X10*3/uL Absolute Neuts (auto) 6.0 (2.0-8.3) x10*3/uL Absolute Nucleated RBC 0.000 (0.0-0.012) X10*3/uL Nucleated RBC % (auto) 0.0 (0.0-0.2) /100WBC Sodium 147 H (135-145) mmol/L Potassium 3.9 (3.3-5.1) mmol/L Chloride 92 L (96-108) mmol/L Carbon Dioxide 45 H* D (22-29) mmol/L Anion Gap 14 (12-20) BUN 11 (9-16) mg/dL Creatinine 0.65 (0.5-1.4) mg/dL Estim Creat Clear Calc 54.1 Estimated GFR > 60 Random Glucose 103 (60-115) mg/dL Calcium 10.0 D (8.4-10.2) mg/dL Magnesium 1.6 (1.6-2.6) mg/dL Total Bilirubin 0.5 (0.0-1.0) mg/dL AST 15 (5-31) U/L ALT 6 (0-31) U/L Alkaline Phosphatase 78 (39-117) U/L Total Protein 7.2 (6.5-8.0) g/dL Albumin 4.5 (3.5-5.0) g/dL Independent Interpretation I performed an independent interpretation of an: Plain X-Ray Interpretation: My interpretation is in agreement with the radiologist's impression of this imaging study. --------- EXAMINATION: XR CHEST CLINICAL INFORMATION: Shortness of breath. COMPARISON: September 20, 2022. TECHNIQUE: Portable AP view of the chest was obtained. XR/XR chest 1V FINDINGS/IMPRESSION: ? There is no acute radiographic finding. ? No focal infiltrate, effusion, pneumothorax is seen. ? Suspect emphysema. ? The cardiovascular structures, mediastinum, diaphragm, bones, and soft tissues appear unremarkable. Dictated By: Surinder Faith Signed By: Electronically signed by Surinder?Vianney 01/04/23 1010 Discharge Plan Discharge Clinical Impression: COPD (chronic obstructive pulmonary disease) Patient Disposition: Home, Self-Care Instructions: COPD (Chronic Obstructive Pulmonary Disease) (DC) Additional Instructions: Please check your oxygen tank before leaving your home. Follow up with your primary care provider. Return to the emergency department immediately if your symptoms worsen or if you develop any dizziness, shortness of breath, difficulty breathing, chest pain, blurry vision, loss of vision, nausea, vomiting, abdominal pain, fever, chills, back pain, or any other complaints. Prescriptions: No Action aspirin [Adult Low Dose Aspirin] 81 mg tablet,delayed release (DR/EC) 81 mg PO DAILY ipratropium-albuterol 0.5 mg-3 mg(2.5 mg base)/3 mL solution for nebulization 1 ml inhalation TID PRN (Reason: shortness of breath) 30 Days Qty: 180 5RF atorvastatin 40 mg tablet 40 mg PO BEDTIME 90 Days Qty: 90 1RF aspirin 81 mg tablet,chewable 81 mg PO DAILY Qty: 120 0RF Rx Instructions: offer OTC first albuterol sulfate 90 mcg/actuation HFA aerosol inhaler 2 puff PO Q6H PRN (Reason: bronchospasm) 30 Days Qty: 6.7 5RF amlodipine 5 mg tablet 5 mg PO DAILY 90 Days Qty: 90 1RF baclofen 5 mg tablet 5 mg PO DAILY mirtazapine 30 mg tablet 30 mg PO BEDTIME 90 Days Qty: 90 0RF omeprazole 20 mg capsule,delayed release(DR/EC) 20 mg PO ONCE 90 Days Qty: 90 0RF metoprolol tartrate 25 mg tablet 25 mg PO BID 90 Days Qty: 180 1RF sertraline 25 mg tablet 25 mg PO DAILY 90 Days Qty: 90 1RF Referrals: Brianna Gonzalez MD [Primary Care Provider] - Print Language: Malay
[2023-01-04 08:50] VITALS: BP 192/70; PULSE 91; RESP 18; TEMP 36.8; O2SAT 90; BMI 15.1
[2023-01-04 09:13] LABS: MANUAL DIFF FLAG NO
[2023-01-04 09:14] LABS: Basophils Percent Auto 0.2 % (0-2); Eosinophils Absolute Auto 0.2 X10*3/uL (0.0-0.4); Eosinophils Percent Auto 2.1 % (0-4); Hematocrit 38.4 % (37.0-47.0); Hemoglobin 10.7 g/dl (12.0-16.0); Imm Gran Abs Auto 0.01 X10*3/uL (0.00-0.03); Imm Gran Pct Auto 0.1 % (0.0-0.4); Lymphocytes Absolute Auto 1.8 X10*3/uL (1.2-4.9); Lymphocytes Percent Auto 20.7 % (20-40); Mean Corpuscular HGB Conc 27.9 g/dl (31.0-35.0); Mean Corpuscular Hemoglobin 25.6 pg (27.0-33.0); Mean Corpuscular Volume 91.9 fL (80.0-98.0); Mean Platelet Volume 10.1 fL (9.4-12.3); Monocytes Absolute Auto 0.8 X10*3/uL (0.1-1.2); Monocytes Percent Auto 8.5 % (2-11); Neutrophils Percent Auto 68.4 % (45-73); Platelet Count 229 X10*3/uL (160-400); Red Blood Count 4.18 X10*6/uL (4.20-5.50); Red Cell Distribution Width 14.1 % (11.0-16.0); White Blood Count 8.8 X10*3/uL (4.8-10.8)
[2023-01-04] MEDS: Albuterol Sulfate (0.083%) 2.5 MG/3 ML VIAL.NEB 10 MG INHALE (09:15)
[2023-01-04 09:20] VITALS: PULSE 90; RESP 21; O2SAT 99
[2023-01-04 09:44] VITALS: BP 153/65; PULSE 89; RESP 21; TEMP 36.6; O2SAT 99
[2023-01-04 09:44] LABS: Alanine Aminotransferase 6 U/L (0-31); Albumin Level 4.5 g/dL (3.5-5.0); Alkaline Phosphatase 78 U/L (39-117); Anion Gap 14 (12-20); Aspartate Amino Transferase 15 U/L (5-31); Bilirubin Total 0.5 mg/dL (0.0-1.0); Blood Urea Nitrogen 11 mg/dL (9-16); Carbon Dioxide 45 mmol/L (22-29); Chloride 92 mmol/L (96-108); Creatinine Clr Calc Pharmacy 54.1; Estimated Glomerular Filt Rate > 60; Glucose Random 103 mg/dL (60-115); Magnesium 1.6 mg/dL (1.6-2.6); Potassium 3.9 mmol/L (3.3-5.1); Sodium 147 mmol/L (135-145); Total Protein 7.2 g/dL (6.5-8.0)
[2023-01-04 10:49] VITALS: BP 205/61; PULSE 113; RESP 22; O2SAT 93
== END 2023-01-04 14:18 | disposition home or self-care (01) ==
PROVIDERS: Physician Assistant Medical; Emergency Provider Student in an Organized Health Care Education/Training Program; PCP Internal Medicine
DX: J44.9 Chronic obstructive pulmonary disease, unspecified (principal); R06.02 Shortness of breath; Z99.81 Dependence on supplemental oxygen; Z79.899 Other long term (current) drug therapy; Z87.891 Personal history of nicotine dependence
CPT/HCPCS: 36415; 71045; 80053; 83735; 85025; 94640; 99284

== ENCOUNTER → 2023-02-09 14:56 | Outpatient (BNVA) | payer OTHER, SELFPAY | PROVIDERS: PCP Internal Medicine; Visit Provider Internal Medicine | DX: J44.9 Chronic obstructive pulmonary disease, unspecified (principal); J96.91 Respiratory failure, unspecified with hypoxia; I69.351 Hemiplegia and hemiparesis following cerebral infarction affecting right dominant side; Z87.891 Personal history of nicotine dependence; Z77.22 Contact with and (suspected) exposure to environmental tobacco smoke (acute) (chronic); Z99.81 Dependence on supplemental oxygen | CPT/HCPCS: 99202 ==

== ENCOUNTER 2023-03-17 01:40 | Inpatient (IN) | payer OTHER, SELFPAY ==
[2023-03-17] VITALS (23 sets, daily range): BP systolic 106–198; BP diastolic 44–76; PULSE 65–99; RESP 16–36; TEMP 36.2–36.7; O2SAT 66–100; BMI 15.6; BMI 15.3
--- NOTE | ~2023-03-17 | XR_ITS ---
EXAMINATION: XR CHEST CLINICAL INFORMATION: Altered mental status COMPARISON: 01/04/2023 TECHNIQUE: Frontal view of the chest was obtained. FINDINGS: Emphysema. No parenchymal consolidation. No pleural effusion. No pneumothorax. Cardiomediastinal silhouette and pulmonary vascularity are within normal limits. Aorta is atherosclerotic. No acute osseous abnormalities. XR/XR chest 1V IMPRESSION: * No acute findings. * Emphysema.
--- NOTE | 2023-03-17 02:02 | ED.AMS ---
HPI - Altered Mental Status General Chief Complaint: Altered Mental Status Stated Complaint: ams 3xdays Time Seen by Provider: 03/17/23 01:51 Source: patient and EMS Mode of arrival: EMS Limitations: no limitations History of Present Illness HPI narrative: Patient with history of left MCA CVA, history of cocaine abuse comes here for increase lethargy , weakness and confusion for last 3 days more than usual patient been using cocaine almost every day for last 3 days no fever no chills no urine symptoms no abdominal pain no vomiting , patient does have a chronic dry cough and has history of emphysema Related Data Home Medications Medication Instructions Recorded Confirmed aspirin 81 mg tablet,delayed 81 mg PO DAILY 10/21/22 03/17/23 release (Adult Low Dose Aspirin) Previous Rx's Medication Instructions Recorded albuterol sulfate 90 mcg/actuation 2 puff PO Q6H PRN bronchospasm 30 10/20/22 aerosol inhaler days #6.7 grams amlodipine 5 mg tablet 5 mg PO DAILY 90 days #90 tabs 10/20/22 metoprolol tartrate 25 mg tablet 25 mg PO BID 90 days #180 tabs 10/20/22 omeprazole 20 mg capsule,delayed 20 mg PO ONCE 90 days #90 caps 10/20/22 release sertraline 25 mg tablet 25 mg PO DAILY 90 days #90 tabs 10/20/22 atorvastatin 40 mg tablet 40 mg PO BEDTIME 90 days #90 tabs 12/21/22 ipratropium 0.5 mg-albuterol 3 mg 1 ml inhalation TID PRN shortness 12/21/22 (2.5 mg base)/3 mL nebulization of breath 30 days #180 mL soln mirtazapine 30 mg tablet 30 mg PO BEDTIME 90 days #90 tabs 01/26/23 Allergies Allergy/AdvReac Type Severity Reaction Status Date / Time crab Allergy Unknown Hives Verified 03/17/23 01:46 penicillin V Allergy Unknown hives Verified 03/17/23 01:46 Penicillins [PENICILLINS] Allergy Unknown hives Verified 03/17/23 01:46 SEASONAL ALLERGIES Allergy Mild RUNNY NOSE Uncoded 03/17/23 01:46 Review of Systems Review of Systems: Yes all other systems are reviewed and are negative PMFSH Past Medical History Medical History Acute CHF (congestive heart failure) Anxiety, generalized Apical myocardial infarction Arthrosis Asthma, moderate Asymptomatic carotid artery stenosis with infarction Chronic GERD Cocaine abuse COPD (chronic obstructive pulmonary disease) COPD mixed type COVID-19 virus infection Difficulty sleeping Environmental allergies Exacerbation of asthma Hemiparesis affecting right side as late effect of cerebrovascular accident Hypercapnic respiratory failure, chronic Lipid disorder Oxygen dependent Respiratory failure Respiratory failure with hypoxia Smoker in home Tobacco abuse Surgical History History of tonsillectomy and adenoidectomy Family History Family History Father Substance abuse Mother Brain cancer Maternal Grandfather History of heart attack Maternal Grandmother History of heart attack Paternal Grandfather No problems noted. Paternal Grandmother No problems noted. Brother No problems noted. Brother No problems noted. Son No problems noted. Daughter No problems noted. 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) Alcohol intake: never Patient Tobacco Use Status: Former Tobacco user Tobacco use type: Cigarette Years Smoked: 35 years e-Cigarette/Vaping Use: Never Used Advance Directives: Yes Advance Directives on File: Yes Advance Directives Date on File: 11/25/21 service: No Current occupational status: disabled Cognitive needs: No Hearing needs: No Vision needs: No Physical Exam ED Vital Signs: Vital Signs - 24 hr 03/17/23 01:46 03/17/23 02:15 03/17/23 03:32 Temperature 97.9 F 98.1 F 97.8 F Pulse Rate 99 86 89 Respiratory Rate 19 20 34 H Blood Pressure 198/75 H 110/75 183/76 H Pulse Oximetry 99 96 99 Oxygen Delivery Method Nasal Cannula Nasal Cannula Nasal Cannula Oxygen Flow Rate 4 6 Fraction of Inspired Oxygen 03/17/23 03:51 03/17/23 03:53 03/17/23 04:43 Temperature Pulse Rate 79 77 Respiratory Rate 20 20 18 Blood Pressure 136/53 L Pulse Oximetry 100 Oxygen Delivery Method BiPAP Oxygen Flow Rate Fraction of Inspired Oxygen 03/17/23 06:00 Temperature 97.6 F Pulse Rate 99 Respiratory Rate 22 H Blood Pressure 187/70 H Pulse Oximetry 93 Oxygen Delivery Method BiPAP Oxygen Flow Rate Fraction of Inspired Oxygen 40 BMI result Body Mass Index 15.6 Appearance: Alert. Oriented X3. Moderate respiratory distress. Eyes: PERRLA, No Nystagmus ENT: Pharynx normal. Oral Mucosa moist Neck: Normal inspection. Neck supple. CVS: Normal heart rate and rhythm. Pulses normal. Respiratory: No respiratory distress. Equal air entry bilateral, no wheezing/rales/rhonchi Abdomen: Soft and nontender. Bowel sounds are present, no mass palpable, no CVA tenderness Skin: Skin warm and dry. Normal skin color. Normal skin turgor. Extremities: No lower extremity edema. No calf tenderness Neuro: Oriented X 3. Residual right sided weakness with contracted right upper extremity No sensory deficit.No cerebellar signs , cranial nerves II-XII intact Medications Administered Discontinued Medications Generic Name Dose Route Start Last Admin Trade Name Freq PRN Reason Stop Dose Admin Albuterol Sulfate 2.5 mg/ 0 mg 03/17/23 03:14 03/17/23 03:50 Albuterol/Ipratropium 3 ml INHALE 03/17/23 03:15 1 each ONCE ONE Administration Sodium Chloride 1,000 mls @ 999 mls/hr 03/17/23 02:52 03/17/23 06:26 Ns IV 03/17/23 03:52 Infused .Q1H1M ONE Infusion Lorazepam 0.5 mg 03/17/23 03:24 03/17/23 03:35 Lorazepam 2 Mg/Ml Vial IVPUSH 03/17/23 03:25 0.5 mg ONCE ONE Administration Medical Decision Making Medical Decision Making [facility] Narrative: Patient with increased lethargic and confusion with history of emphysema and cocaine use workup showed significant emphysema with respiratory acidosis with hypercapnia patient was placed on BiPAP 18/6, 40% initial venous pH was 7.26 with pCO2 of 125 after 4 hours of BiPAP machine her pH improved to 7.35 and pCO2 decreased to 105 with PO2 of [address] is negative for acute. Will admit patient formal acute on chronic respiratory failure with hypercapnia case discussed with Dr. Mercer retarder operator will take the patient to ICU after 07:00 Differential Diagnosis Metabolic encephalopathy/sepsis/CVA Consult Healthcare Provider Management of the patient was discussed with: Feather Washer Dr. Mercer retarder operator Lab Data [facility] Lab Attestation statement: I reviewed the patient's lab results. 03/17/23 02:01 03/17/23 02:01 Labs: Lab Results 03/17/23 03/17/23 03/17/23 Range/Units 01:47 02:01 02:01 WBC 11.0 H (4.8-10.8) X10*3/uL RBC 3.66 L (4.20-5.50) X10*6/uL Hgb 10.1 L (12.0-16.0) g/dl Hct 34.6 L (37.0-47.0) % MCV 94.5 (80.0-98.0) fL MCH 27.6 (27.0-33.0) pg MCHC 29.2 L (31.0-35.0) g/dl RDW 12.7 (11.0-16.0) % Plt Count 253 (160-400) X10*3/uL MPV 10.4 (9.4-12.3) fL Immature Gran % (Auto) 0.4 (0.0-0.4) % Neut % (Auto) 78.1 H (45-73) % Lymph % (Auto) 14.6 L (20-40) % Bowie % (Auto) 6.6 (2-11) % Eos % (Auto) 0.1 (0-4) % Baso % (Auto) 0.2 (0-2) % Lymph # (Auto) 1.6 (1.2-4.9) X10*3/uL Bowie # (Auto) 0.7 (0.1-1.2) X10*3/uL Eos # (Auto) 0.0 (0.0-0.4) X10*3/uL Baso # (Auto) 0.0 (0.0-0.2) X10*3/uL Abs Immat Gran (auto) 0.04 H (0.00-0.03) X10*3/uL Absolute Neuts (auto) 8.6 H (2.0-8.3) x10*3/uL Absolute Nucleated RBC 0.000 (0.0-0.012) X10*3/uL Nucleated RBC % (auto) 0.0 (0.0-0.2) /100WBC PT (10.0-13.1) SEC INR (0.9-1.1) VBG pH (7.32-7.43) VBG pCO2 mmHg VBG pO2 mmHg VBG HCO3 (22-26) mmol/L VBG O2 Saturation % VBG Base Excess mmol/L Sodium (135-145) mmol/L Potassium (3.3-5.1) mmol/L Chloride (96-108) mmol/L Carbon Dioxide (22-29) mmol/L Anion Gap (12-20) BUN (9-16) mg/dL Creatinine (0.5-1.4) mg/dL Estim Creat Clear Calc Estimated GFR POC Glucose 111 (60-115) mg/dL Random Glucose (60-115) mg/dL Lactic Acid (0.5-2.0) mmol/L Calcium (8.4-10.2) mg/dL Magnesium (1.6-2.6) mg/dL Total Bilirubin (0.0-1.0) mg/dL AST (5-31) U/L ALT (0-31) U/L Alkaline Phosphatase (39-117) U/L Troponin I High Sens (<3.5-17.0) ng/L Total Protein (6.5-8.0) g/dL Albumin (3.5-5.0) g/dL COVID-19 (LUIS ALBERTO) Negative (Negative) COVID-19 Clin Com See Note 03/17/23 03/17/23 03/17/23 Range/Units 02:01 02:01 02:04 WBC (4.8-10.8) X10*3/uL RBC (4.20-5.50) X10*6/uL Hgb (12.0-16.0) g/dl Hct (37.0-47.0) % MCV (80.0-98.0) fL MCH (27.0-33.0) pg MCHC (31.0-35.0) g/dl RDW (11.0-16.0) % Plt Count (160-400) X10*3/uL MPV (9.4-12.3) fL Immature Gran % (Auto) (0.0-0.4) % Neut % (Auto) (45-73) % Lymph % (Auto) (20-40) % Bowie % (Auto) (2-11) % Eos % (Auto) (0-4) % Baso % (Auto) (0-2) % Lymph # (Auto) (1.2-4.9) X10*3/uL Bowie # (Auto) (0.1-1.2) X10*3/uL Eos # (Auto) (0.0-0.4) X10*3/uL Baso # (Auto) (0.0-0.2) X10*3/uL Abs Immat Gran (auto) (0.00-0.03) X10*3/uL Absolute Neuts (auto) (2.0-8.3) x10*3/uL Absolute Nucleated RBC (0.0-0.012) X10*3/uL Nucleated RBC % (auto) (0.0-0.2) /100WBC PT 11.2 (10.0-13.1) SEC INR 1.0 (0.9-1.1) VBG pH (7.32-7.43) VBG pCO2 mmHg VBG pO2 mmHg VBG HCO3 (22-26) mmol/L VBG O2 Saturation % VBG Base Excess mmol/L Sodium 133 L (135-145) mmol/L Potassium 3.5 (3.3-5.1) mmol/L Chloride 72 L D (96-108) mmol/L Carbon Dioxide 49 H* (22-29) mmol/L Anion Gap 15 (12-20) BUN 8 L (9-16) mg/dL Creatinine 0.56 (0.5-1.4) mg/dL Estim Creat Clear Calc 64.6 Estimated GFR > 60 POC Glucose (60-115) mg/dL Random Glucose 114 (60-115) mg/dL Lactic Acid (0.5-2.0) mmol/L Calcium 10.4 H (8.4-10.2) mg/dL Magnesium 1.5 L (1.6-2.6) mg/dL Total Bilirubin 0.6 (0.0-1.0) mg/dL AST 28 (5-31) U/L ALT 14 (0-31) U/L Alkaline Phosphatase 61 (39-117) U/L Troponin I High Sens 18.8 H (<3.5-17.0) ng/L Total Protein 7.8 (6.5-8.0) g/dL Albumin 4.7 (3.5-5.0) g/dL COVID-19 (LUIS ALBERTO) (Negative) COVID-19 Clin Com 03/17/23 03/17/23 03/17/23 Range/Units 02:04 03:30 06:04 WBC (4.8-10.8) X10*3/uL RBC (4.20-5.50) X10*6/uL Hgb (12.0-16.0) g/dl Hct (37.0-47.0) % MCV (80.0-98.0) fL MCH (27.0-33.0) pg MCHC (31.0-35.0) g/dl RDW (11.0-16.0) % Plt Count (160-400) X10*3/uL MPV (9.4-12.3) fL Immature Gran % (Auto) (0.0-0.4) % Neut % (Auto) (45-73) % Lymph % (Auto) (20-40) % Bowie % (Auto) (2-11) % Eos % (Auto) (0-4) % Baso % (Auto) (0-2) % Lymph # (Auto) (1.2-4.9) X10*3/uL Bowie # (Auto) (0.1-1.2) X10*3/uL Eos # (Auto) (0.0-0.4) X10*3/uL Baso # (Auto) (0.0-0.2) X10*3/uL Abs Immat Gran (auto) (0.00-0.03) X10*3/uL Absolute Neuts (auto) (2.0-8.3) x10*3/uL Absolute Nucleated RBC (0.0-0.012) X10*3/uL Nucleated RBC % (auto) (0.0-0.2) /100WBC PT (10.0-13.1) SEC INR (0.9-1.1) VBG pH 7.26 L 7.35 (7.32-7.43) VBG pCO2 125 105 mmHg VBG pO2 47 47 mmHg VBG HCO3 57 H 58 H (22-26) mmol/L VBG O2 Saturation 71.0 77.0 % VBG Base Excess 23.3 26.9 mmol/L Sodium (135-145) mmol/L Potassium (3.3-5.1) mmol/L Chloride (96-108) mmol/L Carbon Dioxide (22-29) mmol/L Anion Gap (12-20) BUN (9-16) mg/dL Creatinine (0.5-1.4) mg/dL Estim Creat Clear Calc Estimated GFR POC Glucose (60-115) mg/dL Random Glucose (60-115) mg/dL Lactic Acid 0.4 L (0.5-2.0) mmol/L Calcium (8.4-10.2) mg/dL Magnesium (1.6-2.6) mg/dL Total Bilirubin (0.0-1.0) mg/dL AST (5-31) U/L ALT (0-31) U/L Alkaline Phosphatase (39-117) U/L Troponin I High Sens (<3.5-17.0) ng/L Total Protein (6.5-8.0) g/dL Albumin (3.5-5.0) g/dL COVID-19 (LUIS ALBERTO) (Negative) COVID-19 Clin Com Independent Interpretation I performed an independent interpretation of an: EKG Interpretation: Normal sinus rhythm rightward axis heart rate 94 beats per minute normal interval no acute ST-T changes no acute ischemia Critical Care Time Critical Care Time Critical Care Time: Yes Total Critical Care Time: 100 Attestation: The patient was critically ill with a high probability of imminent or life threatening deterioration. I spent greater than 110 minutes of discontinuous time evaluating the patient,delivering critical care at the bedside, discussing and evaluating pertinent data with consultants. Critical care time does not include time spent performing separately billable procedures or teaching. Total time spent performing critical care was 100 minutes. Discharge Plan Discharge Clinical Impression: Acute metabolic encephalopathy, Acute and chronic respiratory failure with hypercapnia, Cocaine abuse Patient Disposition: Admitted As Inpatient
[2023-03-17 02:06] LABS: MANUAL DIFF FLAG NO
[2023-03-17 02:08] LABS: Basophils Percent Auto 0.2 % (0-2); Eosinophils Percent Auto 0.1 % (0-4); Hematocrit 34.6 % (37.0-47.0); Hemoglobin 10.1 g/dl (12.0-16.0); Imm Gran Abs Auto 0.04 X10*3/uL (0.00-0.03); Imm Gran Pct Auto 0.4 % (0.0-0.4); Lymphocytes Absolute Auto 1.6 X10*3/uL (1.2-4.9); Lymphocytes Percent Auto 14.6 % (20-40); Mean Corpuscular HGB Conc 29.2 g/dl (31.0-35.0); Mean Corpuscular Hemoglobin 27.6 pg (27.0-33.0); Mean Corpuscular Volume 94.5 fL (80.0-98.0); Mean Platelet Volume 10.4 fL (9.4-12.3); Monocytes Absolute Auto 0.7 X10*3/uL (0.1-1.2); Monocytes Percent Auto 6.6 % (2-11); Neutrophils Absolute Auto 8.6 x10*3/uL (2.0-8.3); Neutrophils Percent Auto 78.1 % (45-73); Platelet Count 253 X10*3/uL (160-400); Red Blood Count 3.66 X10*6/uL (4.20-5.50); Red Cell Distribution Width 12.7 % (11.0-16.0)
[2023-03-17 02:10] LABS: Venous Blood Gas Refer to POC result
[2023-03-17 02:12] LABS: VBG Base Excess 23.3 mmol/L; VBG HCO3 57 mmol/L (22-26); VBG pCO2 125 mmHg; VBG pH 7.26 (7.32-7.43); VBG pO2 47 mmHg
--- NOTE | 2023-03-17 02:17 | MHC.EDTECH ---
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
[2023-03-17 02:18] LABS: Prothrombin Time 11.2 SEC (10.0-13.1)
[2023-03-17 02:23] LABS: COVID-19 Test Negative (Negative); IDNOW Serial# 08D9AD1C
[2023-03-17 02:27] LABS: Troponin-I High Sensitivity 18.8 ng/L (<3.5-17.0)
[2023-03-17 02:41] LABS: Alanine Aminotransferase 14 U/L (0-31); Albumin Level 4.7 g/dL (3.5-5.0); Alkaline Phosphatase 61 U/L (39-117); Anion Gap 15 (12-20); Aspartate Amino Transferase 28 U/L (5-31); Bilirubin Total 0.6 mg/dL (0.0-1.0); Blood Urea Nitrogen 8 mg/dL (9-16); Calcium 10.4 mg/dL (8.4-10.2); Carbon Dioxide 49 mmol/L (22-29); Chloride 72 mmol/L (96-108); Creatinine Clr Calc Pharmacy 64.6; Estimated Glomerular Filt Rate > 60; Glucose Random 114 mg/dL (60-115); Magnesium 1.5 mg/dL (1.6-2.6); Potassium 3.5 mmol/L (3.3-5.1); Sodium 133 mmol/L (135-145); Total Protein 7.8 g/dL (6.5-8.0)
--- NOTE | 2023-03-17 03:14 | PC.NURSE ---
Respiratory at bedside for bipap.
--- NOTE | 2023-03-17 03:19 | PC.NURSE ---
Pt not tolerating bipap well. Placed back on nasal cannula per respiratory.
[2023-03-17 03:47] LABS: Lactic Acid 0.4 mmol/L (0.5-2.0)
--- NOTE | 2023-03-17 03:53 | PC.NURSE ---
Pt placed back on bipap after ativan administration. Appears to be tolerating well.
--- NOTE | 2023-03-17 06:07 | MHC.EDTECH ---
LIV BLOOD GAS DRAWN AND SENT TO LAB .
--- NOTE | 2023-03-17 07:07 | PC.NURSE ---
pt alert and oriented to self, bipap setting 18/5 - 40%, vital signs unstable - NSR on the monitor w/ occasional PVCs, purewick - patent and draining with clear yellow urine, pt assessed for pain but unable to answer, lung sounds clear bilaterally, heart sounds normal upon auscultation, call campbell placed within reach, will continue to monitor.
--- NOTE | 2023-03-17 07:20 | PC.NURSE ---
urine sent to lab.
--- NOTE | 2023-03-17 07:24 | PHA.MEDREC ---
Pharmacy Consult ? Medication Reconciliation Pharmacy has completed the medication reconciliation. Reviewed med rec done by nursing (Deb).
[2023-03-17] MEDS: Heparin Sodium,Porcine 5,000 UNIT/ML VIAL 5000 UNIT SUBCUT ×3 (07:32→23:19)
--- NOTE | 2023-03-17 07:34 | PC.NURSE ---
heparin administered in the LLQ per provier order, pt tolerated w/o complications.
--- NOTE | 2023-03-17 07:46 | PC.NURSE ---
pt medicated per order
--- NOTE | 2023-03-17 10:48 | MHC.CLN ---
PT IS MODERATELY MALNOURISHED PT WITH MODERATELY DEPLETED SUBCUTANEOUS FAT AND MUSCLE MASS, BMI 15.6 WITH 7% NONSIGNIFICANT WT LOSS X 6 MONTHS AND COCAINE ABUSE PT FAMILIAR FROM PREVIOUS ADMISSIONS PT IS CURRENTLY NPO AND ON BIPAP PT RECEPTIVE TO DRINKING NUTRITION SUPPLEMENTS (PREFERS SONAL FLAVOR) WHEN DIET TO ADVANCE, RECOMMEND ADDING SUPPLEMENT TO INCREASE KCALS SUPP TO PROVIDE 700KCALS, 40G PROTEIN MONITOR FOR DIET ADVANCEMENT SEE ALSO FULL CLINICAL NUTRITION ASSESSMENT
--- NOTE | 2023-03-17 12:39 | PM.CCHP ---
History of Present Illness Date of Service: 03/17/23 Chief Complaint: Alteration of mental status 57-year-old lady with underlying substance abuse, carotid artery stenosis status post CVA with residual right-sided hemiparesis, COPD with CO2 retention and chronic hypoxia on 2 L of oxygen at home admitted on 03/17/2023 with worsening lethargy. On ER evaluation patient with heterogenic hypoxia and worsening CO2 retention requiring BiPAP support, admitted to intensive care unit. In the intensive care unit patient started on acetazolamide way as diuresis and been able to be titrated of BiPAP support, now with improved mentation on 1 L supplemental oxygen with O2 saturation goal of 87-92%, no higher than 92%. Review of Systems Constitutional: Constitutional: Denies daytime sleepiness, Denies excessive sweating, Denies fatigue, Denies fever(s), Denies lethargy, Denies malaise, Denies night sweats, Denies snoring and Denies weight loss Eyes: Eyes: Denies blurry vision and Denies itchy eyes ENT: Denies nasal congestion, Denies post nasal drip, Denies sinus pain, Denies sinus pressure and Denies other ( Thrush) Cardiovascular: Cardiovascular: Denies chest pain, Denies pedal edema, Denies dyspnea, Reports dyspnea on exertion, Denies orthopnea and Denies paroxysmal nocturnal dyspnea Respiratory: Respiratory: Denies cough, Denies hemoptysis, Denies excessive phlegm production, Denies dyspnea, Reports dyspnea on exertion, Denies snoring and Denies wheezing Gastrointestinal: Gastrointestinal: Denies abdominal pain and Denies heartburn Musculoskeletal: Musculoskeletal: Denies myalgias, Denies arthralgias and Denies joint swelling Integumentary/Breasts: Skin/Breast: Denies rash Neurologic: Denies memory loss, Denies seizure-like activity and Reports other (Right-sided paresis) Psychiatric: Psychiatric: Denies abnormal sleep pattern, Denies anxiety and Denies memory loss Endocrine: Endocrine: Denies excessive sweating, Denies fatigue and Denies heat intolerance Hematologic/Lymphatic: Hematologic/Lymphatic: Denies easy bruising Allergic/Immunologic: Allergic/Immunologic: Denies itchy eyes, Denies seasonal rhinorrhea and Denies wheezing PMFSH Past Medical History Medical History (Updated 03/17/23 @ 12:45 by Edu Mercer MD) Acute CHF (congestive heart failure) Anxiety, generalized Apical myocardial infarction Arthrosis Asthma, moderate Asymptomatic carotid artery stenosis with infarction Chronic GERD Cocaine abuse COPD (chronic obstructive pulmonary disease) COPD mixed type COVID-19 virus infection Difficulty sleeping Environmental allergies Exacerbation of asthma Hemiparesis affecting right side as late effect of cerebrovascular accident Hypercapnic respiratory failure, chronic Lipid disorder Oxygen dependent Respiratory failure Respiratory failure with hypoxia Smoker in home Tobacco abuse Family History Family History Father Substance abuse Mother Brain cancer Maternal Grandfather History of heart attack Maternal Grandmother History of heart attack Paternal Grandfather No problems noted. Paternal Grandmother No problems noted. Brother No problems noted. Brother No problems noted. Son No problems noted. Daughter No problems noted. 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) Alcohol intake: never Patient Tobacco Use Status: Former Tobacco user Tobacco use type: Cigarette Years Smoked: 35 years e-Cigarette/Vaping Use: Never Used Advance Directives: Yes Advance Directives on File: Yes Advance Directives Date on File: 11/25/21 service: No Current occupational status: disabled Cognitive needs: No Hearing needs: No Vision needs: No Meds Allergies Allergy/AdvReac Type Severity Reaction Status Date / Time crab Allergy Unknown Hives Verified 03/17/23 01:46 penicillin V Allergy Unknown hives Verified 03/17/23 01:46 Penicillins [PENICILLINS] Allergy Unknown hives Verified 03/17/23 01:46 SEASONAL ALLERGIES Allergy Mild RUNNY NOSE Uncoded 03/17/23 01:46 Active Medications: Current Medications Heparin Sodium (Porcine) (Heparin Sodium,Porcine 5,000 Unit/Ml Vial) 5,000 unit SUBCUT Q8H [facility] Last Admin: 03/17/23 07:32 Dose: 5,000 unit Home Medications Medication Instructions Recorded Confirmed Last Taken Type aspirin 81 mg tablet,delayed 81 mg PO DAILY 10/21/22 03/17/23 Unknown History release (Adult Low Dose Aspirin) Physical Exam Vital Signs: Vital Signs: Last Vital Signs Temp 97.2 F 03/17/23 12:00 Pulse 76 03/17/23 12:00 Resp 23 H 03/17/23 12:00 BP 131/44 L 03/17/23 12:00 Pulse Ox 91 L 03/17/23 12:00 O2 Del Method Nasal Cannula 03/17/23 12:00 O2 Flow Rate 1 03/17/23 12:00 FiO2 40 03/17/23 06:00 Oxygen Flow Rate 5 03/17/23 01:46 BMI result Body Mass Index 15.3 Const: General: no acute distress, alert and other (Right-sided paresis) Nutritional Appearance: malnourished Orientation/consciousness: Other orientation findings ( oriented) HEENT: Head: Yes atraumatic Eyes: General: appearance normal, both eyes and all related structures Sclerae: sclerae normal EOM: EOMs intact bilaterally Neck: Neck: Yes supple Lymphatic: no lymphadenopathy noted Resp: Effort & Inspection: normal respiratory effort and no use of accessory muscles Auscultation: clear to auscultation bilaterally Cardio: Rate: regular rate Rhythm: regular rhythm Heart sounds: no gallops, no murmurs and no rubs Skin: General skin exam: other ( warm) Extrem: General: No clubbing, No cyanosis and No edema Results Labs 03/17/23 02:01 03/17/23 02:01 Labs: Laboratory Results - last 24 hr 03/17/23 03/17/23 03/17/23 01:47 02:01 02:01 MCV 94.5 MCH 27.6 MCHC 29.2 L RDW 12.7 Plt Count 253 MPV 10.4 Immature Gran % (Auto) 0.4 Neut % (Auto) 78.1 H Lymph % (Auto) 14.6 L [place] % (Auto) 6.6 Eos % (Auto) 0.1 Baso % (Auto) 0.2 Lymph # (Auto) 1.6 [place] # (Auto) 0.7 Eos # (Auto) 0.0 Baso # (Auto) 0.0 Abs Immat Gran (auto) 0.04 H Absolute Neuts (auto) 8.6 H Absolute Nucleated RBC 0.000 Nucleated RBC % (auto) 0.0 PT INR O2 Saturation ABG pH at Pt Temp ABG pCO2 at Pt Temp ABG pO2 at Pt Temp ABG HCO3 ABG Base Excess (Actual) VBG pH VBG pCO2 VBG pO2 VBG HCO3 VBG O2 Saturation VBG Base Excess Anion Gap Estim Creat Clear Calc Estimated GFR POC Glucose 111 Random Glucose Lactic Acid Calcium Magnesium Total Bilirubin AST ALT Alkaline Phosphatase Troponin I High Sens Total Protein Albumin Urine Color Urine Appearance Urine pH Ur Specific [place] Urine Protein Urine Glucose (UA) Urine Ketones Urine Blood Urine Nitrite Ur Leukocyte Esterase Urine RBC Urine WBC Ur Squamous Epith Cells Urine Bacteria Hyaline Casts Urine Opiates Screen Urine Fentanyl Screen Ur Barbiturates Screen Ur Phencyclidine Scrn Ur Amphetamines Screen U Benzodiazepines Scrn Urine Cocaine Screen U Marijuana (THC) Screen COVID-19 (LUIS ALBERTO) Negative COVID-19 Clin Com See Note 03/17/23 03/17/23 03/17/23 02:01 02:01 02:04 MCV MCH MCHC RDW Plt Count MPV Immature Gran % (Auto) Neut % (Auto) Lymph % (Auto) [place] % (Auto) Eos % (Auto) Baso % (Auto) Lymph # (Auto) [place] # (Auto) Eos # (Auto) Baso # (Auto) Abs Immat Gran (auto) Absolute Neuts (auto) Absolute Nucleated RBC Nucleated RBC % (auto) PT 11.2 INR 1.0 O2 Saturation ABG pH at Pt Temp ABG pCO2 at Pt Temp ABG pO2 at Pt Temp ABG HCO3 ABG Base Excess (Actual) VBG pH VBG pCO2 VBG pO2 VBG HCO3 VBG O2 Saturation VBG Base Excess Anion Gap 15 Estim Creat Clear Calc 64.6 Estimated GFR > 60 POC Glucose Random Glucose 114 Lactic Acid Calcium 10.4 H Magnesium 1.5 L Total Bilirubin 0.6 AST 28 ALT 14 Alkaline Phosphatase 61 Troponin I High Sens 18.8 H Total Protein 7.8 Albumin 4.7 Urine Color Urine Appearance Urine pH Ur Specific [place] Urine Protein Urine Glucose (UA) Urine Ketones Urine Blood Urine Nitrite Ur Leukocyte Esterase Urine RBC Urine WBC Ur Squamous Epith Cells Urine Bacteria Hyaline Casts Urine Opiates Screen Urine Fentanyl Screen Ur Barbiturates Screen Ur Phencyclidine Scrn Ur Amphetamines Screen U Benzodiazepines Scrn Urine Cocaine Screen U Marijuana (THC) Screen COVID-19 (LUIS ALBERTO) COVID-19 Clin Com 03/17/23 03/17/23 03/17/23 02:04 03:30 06:04 MCV MCH MCHC RDW Plt Count MPV Immature Gran % (Auto) Neut % (Auto) Lymph % (Auto) [place] % (Auto) Eos % (Auto) Baso % (Auto) Lymph # (Auto) [place] # (Auto) Eos # (Auto) Baso # (Auto) Abs Immat Gran (auto) Absolute Neuts (auto) Absolute Nucleated RBC Nucleated RBC % (auto) PT INR O2 Saturation ABG pH at Pt Temp ABG pCO2 at Pt Temp ABG pO2 at Pt Temp ABG HCO3 ABG Base Excess (Actual) VBG pH 7.26 L 7.35 VBG pCO2 125 105 VBG pO2 47 47 VBG HCO3 57 H 58 H VBG O2 Saturation 71.0 77.0 VBG Base Excess 23.3 26.9 Anion Gap Estim Creat Clear Calc Estimated GFR POC Glucose Random Glucose Lactic Acid 0.4 L Calcium Magnesium Total Bilirubin AST ALT Alkaline Phosphatase Troponin I High Sens Total Protein Albumin Urine Color Urine Appearance Urine pH Ur Specific [place] Urine Protein Urine Glucose (UA) Urine Ketones Urine Blood Urine Nitrite Ur Leukocyte Esterase Urine RBC Urine WBC Ur Squamous Epith Cells Urine Bacteria Hyaline Casts Urine Opiates Screen Urine Fentanyl Screen Ur Barbiturates Screen Ur Phencyclidine Scrn Ur Amphetamines Screen U Benzodiazepines Scrn Urine Cocaine Screen U Marijuana (THC) Screen COVID-19 (LUIS ALBERTO) COVID-19 Clin [facility] 03/17/23 03/17/23 03/17/23 07:19 07:19 09:18 MCV MCH MCHC RDW Plt Count MPV Immature Gran % (Auto) Neut % (Auto) Lymph % (Auto) [place] % (Auto) Eos % (Auto) Baso % (Auto) Lymph # (Auto) [place] # (Auto) Eos # (Auto) Baso # (Auto) Abs Immat Gran (auto) Absolute Neuts (auto) Absolute Nucleated RBC Nucleated RBC % (auto) PT INR O2 Saturation 42.0 ABG pH at Pt Temp 7.32 L ABG pCO2 at Pt Temp 105 H* ABG pO2 at Pt Temp 33 L* ABG HCO3 55 H ABG Base Excess (Actual) 24.0 VBG pH VBG pCO2 VBG pO2 VBG HCO3 VBG O2 Saturation VBG Base Excess Anion Gap Estim Creat Clear Calc Estimated GFR POC Glucose Random Glucose Lactic Acid Calcium Magnesium Total Bilirubin AST ALT Alkaline Phosphatase Troponin I High Sens Total Protein Albumin Urine Color Yellow Urine Appearance Clear Urine pH 6.5 Ur Specific [place] <= 1.005 Urine Protein 30 (1+) H Urine Glucose (UA) Negative Urine Ketones Negative Urine Blood Trace H Urine Nitrite Negative Ur Leukocyte Esterase Negative Urine RBC 0-2 Urine WBC 0-5 Ur Squamous Epith Cells 0-2 Urine Bacteria None Seen Hyaline Casts 0-2 Urine Opiates Screen Not Detected Urine Fentanyl Screen Not Detected Ur Barbiturates Screen Not Detected Ur Phencyclidine Scrn Not Detected Ur Amphetamines Screen Not Detected U Benzodiazepines Scrn Not Detected Urine Cocaine Screen Not Detected U Marijuana (THC) Screen Not Detected COVID-19 (LUIS ALBERTO) COVID-19 [employer] 03/17/23 03/17/23 11:04 11:55 MCV MCH MCHC RDW Plt Count MPV Immature Gran % (Auto) Neut % (Auto) Lymph % (Auto) [place] % (Auto) Eos % (Auto) Baso % (Auto) Lymph # (Auto) [place] # (Auto) Eos # (Auto) Baso # (Auto) Abs Immat Gran (auto) Absolute Neuts (auto) Absolute Nucleated RBC Nucleated RBC % (auto) PT INR O2 Saturation 64.0 ABG pH at Pt Temp 7.35 ABG pCO2 at Pt Temp 103 H* ABG pO2 at Pt Temp 42 L* ABG HCO3 57 H ABG Base Excess (Actual) 26.9 VBG pH 7.47 H VBG pCO2 79 VBG pO2 45 VBG HCO3 57 H VBG O2 Saturation 78.0 VBG Base Excess 29.5 Anion Gap Estim Creat Clear Calc Estimated GFR POC Glucose Random Glucose Lactic Acid Calcium Magnesium Total Bilirubin AST ALT Alkaline Phosphatase Troponin I High Sens Total Protein Albumin Urine Color Urine Appearance Urine pH Ur Specific [place] Urine Protein Urine Glucose (UA) Urine Ketones Urine Blood Urine Nitrite Ur Leukocyte Esterase Urine RBC Urine WBC Ur Squamous Epith Cells Urine Bacteria Hyaline Casts Urine Opiates Screen Urine Fentanyl Screen Ur Barbiturates Screen Ur Phencyclidine Scrn Ur Amphetamines Screen U Benzodiazepines Scrn Urine Cocaine Screen U Marijuana (THC) Screen COVID-19 (LUIS ALBERTO) COVID-19 Clin Com Imaging Radiologist's Impressions: Impressions Chest X-Ray 03/17/23 02:12 IMPRESSION: * No acute findings. * Emphysema. Head CT 03/17/23 03:15 IMPRESSION: * No evidence of acute intracranial hemorrhage or edematous territorial infarction. * Extensive encephalomalacia and gliosis throughout the left frontal lobe and to lesser extent the left parietal lobe. Assessment and Plan (1) Acute metabolic encephalopathy: Status: Acute (2) Acute and chronic respiratory failure with hypercapnia: Status: Acute (3) COPD (chronic obstructive pulmonary disease): Status: Acute (4) Hemiparesis affecting right side as late effect of cerebrovascular accident: Status: Acute (5) Major depression, recurrent: Status: Acute (6) Acute CHF (congestive heart failure): Status: Acute Plan Assessment: 57-year-old lady admitted with lethargy, acute on chronic hypercapnia, hypoxia, with iatrogenic worsening of CO2 retention, initially requiring BiPAP, now titrated off Plan: Neuro: Acute metabolic encephalopathy secondary to CO2 narcosis, improved. Underlying right hemiparesis after prior CVA. Cardiac: Acute on chronic systolic and diastolic heart failure, improving with diuresis. Continue acetazolamide. Pulmonary: Acute on chronic hypercapnic respiratory failure on underlying chronic hypoxic respiratory failure titrated off BiPAP. O2 sat goal of 87-92%. Continue on nebulized bronchodilators. Renal: No acute issues. Endo: No acute issues. GI: No acute issues. ID: No acute issues Heme/Onc: No acute issues. Psych: No acute issues. Miscellaneous: No acute issues. Prophylaxis: Heparin Diet: Regular Critical care time spent: 60 minutes Time Spent With Patient Time: Total time managing care of this patient today ____ minutes.
--- NOTE | 2023-03-17 13:39 | PM.EVENT ---
Event Note Date of Service: 03/17/23 Event Note: Pt admitted overnight for acute resp failure with marked hypercarbia and now transfered to floor, care discussed transfer of care with ICU provider Dr. Mercer Time Spent With Patient Time: Total time managing care of this patient today ____ minutes.
[2023-03-17] MEDS: Albuterol/Iprat 2.5/0.5MG 3 ML AMPUL.NEB INHALE ×3 (15:47→23:59)
--- NOTE | 2023-03-17 19:35 | PC.NURSE ---
Assumed care at 08:30. Was drowsy, on Bipap upon arrival 18/6 and 40%; was immediately weaned off Bipap to 1-2 LPM nasal cannula, patient's mental status remained drowsy, but arousable to voice, occasionally to light tactile stim, repeat ABGs with mixed venous/arterial results, verified by comparison to VBG, CO2 elevated, trended down from 105 to 79; PH impoved from 7.32 to 7.46, Patient on diamox. Upon arrival to ICU, purewick noted to not be functional due to anatomy of patient, and MD ordered rodriguez insertion, upon insertion of which, 350 ccs of essentially clear urine was released, then UOP about 50 cc/hour. Patient with right sided hemiplegia, MD aware. Patient with history of left sided CVA. Patient passed bedside swallow eval and had about 50% of lunch before being transferred to [facility].
--- NOTE | 2023-03-17 22:11 | PC.NURSE ---
Addendum entered by Kwasi Read RN 03/18/23 03:51: Attempt to further wean patient to keep O2 88-92%. Down to 2L O2, within 10 minutes of weaning pt O2 sats down to high 70s. O2 back to 4L via NC. Pt continues to refuse Bipap. aware. Addendum entered by Kwasi Read RN 03/18/23 00:52: VBGs obtained, results to MD. At approx 0045 pt self removed bipap refusing to continue wearing it. Stating it doesnt help me . Explained the risks and educated patient on CO2 levels but pt refused teaching. Down to 78% on room air. Placed back on NC at 5L to obtain 88-92% Addendum entered by Kwasi Read RN 03/17/23 23:57: Pt placed on BiPAP per respiratory. 14/5/30%. After approx 30 minutes pt noted to be desatting down to 78%. RT notified, pt was resting comfortably arousable to gentle touch.RT in to increase FiO2. MD Murphy notified, STAT VBG ordered for concerns of CO2 retention along with breathing tx. FiO2 increased to 40% with improvement. Addendum entered by Kwasi Read RN 03/17/23 23:22: Pt weaned back down to 1L O2 via NC. Original Note: Pt A&Ox person/place. Lethargic but arouses to loud voice. On 1L at start of shift. Continues to desat down to the high 70s, placed on 2L O2. Improved however when asleep continues to desat down, placed on Oxymask for mouth breathing with minimal improvement, O2 sats continued 83/84%. Respiratory in and placed patient in BiPAP. O2 sats improved with the goal of 88-92%. At approx 2200 patient self removed mask requesting to eat. O2 increased to 4L via NC to maintain O2 sats. Will have RT place back on BiPAP when ready to fall back asleep.
[2023-03-18] VITALS (20 sets, daily range): BP systolic 113–137; BP diastolic 56–63; PULSE 69–94; RESP 16–21; TEMP 36.2–37.6; O2SAT 78–99; BMI 15.3
[2023-03-18] MEDS: Heparin Sodium,Porcine 5,000 UNIT/ML VIAL 5000 UNIT SUBCUT ×3 (05:49→23:03)
--- NOTE | 2023-03-18 06:04 | PC.RT ---
RT called several times to patients bedside for patient taking Bipap mask off or pulling at mask. RN & RT several times encouraged patient to wear Bipap and pt refusing to wear. Patient was placed on around 2030 and wore on/off until shortly after midnight. Stat VBG ordered by and Jose given overnight, pt encouraged again overnight and this morning to go back on for a few hours, pt refusing. Pt is currently on 3L N/C, alert and oriented watching TV. VBG is pending and RT communicated with RN that pt is still refusing to go onto BIPAP. Pt remains on continuous monitoring, RN will call RT if further interventions are needed.
[2023-03-18 06:17] LABS: MANUAL DIFF FLAG NO
[2023-03-18 06:22] LABS: Basophils Percent Auto 0.3 % (0-2); Eosinophils Absolute Auto 0.1 X10*3/uL (0.0-0.4); Eosinophils Percent Auto 1.7 % (0-4); Hematocrit 25.3 % (37.0-47.0); Hemoglobin 7.4 g/dl (12.0-16.0); Imm Gran Abs Auto 0.02 X10*3/uL (0.00-0.03); Imm Gran Pct Auto 0.3 % (0.0-0.4); Lymphocytes Absolute Auto 1.6 X10*3/uL (1.2-4.9); Lymphocytes Percent Auto 20.3 % (20-40); Mean Corpuscular HGB Conc 29.2 g/dl (31.0-35.0); Mean Corpuscular Hemoglobin 27.6 pg (27.0-33.0); Mean Corpuscular Volume 94.4 fL (80.0-98.0); Monocytes Absolute Auto 1.1 X10*3/uL (0.1-1.2); Monocytes Percent Auto 13.8 % (2-11); Neutrophils Percent Auto 63.6 % (45-73); Platelet Count 212 X10*3/uL (160-400); Red Blood Count 2.68 X10*6/uL (4.20-5.50); Red Cell Distribution Width 12.9 % (11.0-16.0); White Blood Count 7.8 X10*3/uL (4.8-10.8)
[2023-03-18 06:23] LABS: Venous Blood Gas Refer to POC result
[2023-03-18 06:43] LABS: Albumin Level 3.5 g/dL (3.5-5.0); Anion Gap 10 (12-20); Blood Urea Nitrogen 10 mg/dL (9-16); Calcium 9.6 mg/dL (8.4-10.2); Carbon Dioxide 47 mmol/L (22-29); Chloride 86 mmol/L (96-108); Creatinine Clr Calc Pharmacy 65.8; Estimated Glomerular Filt Rate > 60; Glucose Random 83 mg/dL (60-115); Magnesium 1.7 mg/dL (1.6-2.6); Phosphorus 3.7 mg/dL (2.7-4.5); Potassium 4.1 mmol/L (3.3-5.1); Sodium 139 mmol/L (135-145)
--- NOTE | 2023-03-18 09:12 | MHC.CM.PN ---
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 PT VERIFIES PCP IS JANNA COOLEY, HCP IS HER BROTHER DONNY AND ALT DTR LUX, COPY ON FILE IN EXPANSE AND PT DENIES RECEIVING ANY COVID VACCINES. GOAL FOR D/C HOME W/RESUMP OF NETWORK OPERATIONS MANAGER HRS, DTR FOR TRANSPORT
--- NOTE | 2023-03-18 09:38 | HO.PM.IMPN ---
Subjective Subjective Date of Service: 03/19/23 Interval History: f/u on acute hypoxic resp failure interval history: doing much better Physical Exam Vital Signs: Vital Signs: Last Vital Signs Temp 98.9 F 03/18/23 07:21 Pulse 94 03/18/23 08:33 Resp 16 03/18/23 07:21 BP 121/58 L 03/18/23 08:33 Pulse Ox 99 03/18/23 08:33 O2 Del Method Nasal Cannula 03/18/23 07:21 O2 Flow Rate 4 03/18/23 07:21 FiO2 40 03/17/23 06:00 Oxygen Flow Rate 5 03/17/23 01:46 BMI result Body Mass Index 15.3 Const: Other: General: AO X 3, no acute distress Resp: CTA bilateral CVS: S1,S2,RRR GI: +BS, NT, no distention Skin: No rash Neuro: motor grossly intact Psych: appropriate affect Objective Data Active Medications Acetazolamide (Acetazolamide Sodium 500 Mg Vial) 250 mg IVPUSH BID [facility] Stop: 03/19/23 21:01 Last Admin: 03/17/23 20:05 Dose: 250 mg Documented By: KAVITA Albuterol/Ipratropium (Albuterol/Iprat 2.5/0.5mg 3 Ml Ampul.Neb) 3 ml INHALE RQ6H WHILE AWAKE [facility] Last Admin: 03/17/23 23:59 Dose: 3 ml Documented By: REMIGIO Heparin Sodium (Porcine) (Heparin Sodium,Porcine 5,000 Unit/Ml Vial) 5,000 unit SUBCUT Q8H [facility] Last Admin: 03/18/23 05:49 Dose: 5,000 unit Documented By: KAVITA Labs 03/18/23 06:13 03/18/23 06:13 Labs: Laboratory Results - last 24 hr 03/17/23 03/17/23 03/18/23 11:04 11:55 00:14 MCV MCH MCHC RDW Plt Count MPV Immature Gran % (Auto) Neut % (Auto) Lymph % (Auto) [place] % (Auto) Eos % (Auto) Baso % (Auto) Lymph # (Auto) [place] # (Auto) Eos # (Auto) Baso # (Auto) Abs Immat Gran (auto) Absolute Neuts (auto) Absolute Nucleated RBC Nucleated RBC % (auto) O2 Saturation 64.0 ABG pH at Pt Temp 7.35 ABG pCO2 at Pt Temp 103 H* ABG pO2 at Pt Temp 42 L* ABG HCO3 57 H ABG Base Excess (Actual) 26.9 VBG pH 7.47 H 7.40 VBG pCO2 79 96 VBG pO2 45 47 VBG HCO3 57 H 60 H VBG O2 Saturation 78.0 79.0 VBG Base Excess 29.5 30.3 Anion Gap Estim Creat Clear Calc Estimated GFR Random Glucose Calcium Phosphorus Magnesium Albumin 03/18/23 03/18/23 03/18/23 06:13 06:13 06:16 MCV 94.4 MCH 27.6 MCHC 29.2 L RDW 12.9 Plt Count 212 MPV 10.0 Immature Gran % (Auto) 0.3 Neut % (Auto) 63.6 Lymph % (Auto) 20.3 [place] % (Auto) 13.8 H Eos % (Auto) 1.7 Baso % (Auto) 0.3 Lymph # (Auto) 1.6 [place] # (Auto) 1.1 Eos # (Auto) 0.1 Baso # (Auto) 0.0 Abs Immat Gran (auto) 0.02 Absolute Neuts (auto) 5.0 Absolute Nucleated RBC 0.000 Nucleated RBC % (auto) 0.0 O2 Saturation ABG pH at Pt Temp ABG pCO2 at Pt Temp ABG pO2 at Pt Temp ABG HCO3 ABG Base Excess (Actual) VBG pH 7.44 H VBG pCO2 87 VBG pO2 199 VBG HCO3 59 H VBG O2 Saturation 99.0 VBG Base Excess 30.8 Anion Gap 10 L Estim Creat Clear Calc 65.8 Estimated GFR > 60 Random Glucose 83 Calcium 9.6 D Phosphorus 3.7 Magnesium 1.7 Albumin 3.5 Microbiology Microbiology Results: Microbiology 03/17/23 03:39 Blood Culture - Preliminary Blood - Venous No growth after 24 hours. 03/17/23 03:30 Blood Culture - Preliminary Blood - Venous No growth after 24 hours. Assessment and Plan (1) Acute and chronic respiratory failure with hypercapnia: Status: Acute Plan 57-year-old lady with underlying substance abuse, carotid artery stenosis status post CVA with residual right-sided hemiparesis, COPD with CO2 retention and chronic hypoxia on 2 L of oxygen at home admitted on 03/17/2023 to the ICU due to severe hypercapnia and use recue bipap. Acute on chronic respiratory failure, hypercapnia likele from copd exacerbation, she required bipapd in ICU, use bipap at night, goal of O2 87 to 93%, continue bronchodilators and add Prednisone, moderate protein calory malnutrion--ensure HTN--resume Norvasc and Metoprolol HLD--statin Mood desorder--Sertraline and remron gerd PPI Heparin for DVT prophylaxix need for inaptient acute respiratory failure needing rescue biPAP Time Spent With Patient Time: Total time managing care of this patient today ____ minutes. Quality Stroke Does the patient have a stroke diagnosis?: No VTE Prior VTE?: No VTE Risk Level:: Medical - moderate - high VTE Device Contraindication: Treatment Not Indicated VTE Drug Contraindication: N/A - Med Ordered
[2023-03-18] MEDS: Aspirin Enteric Coated 81 MG TABLET.DR PO (10:37)
[2023-03-18] MEDS: predniSONE 20 MG TABLET PO (10:37)
[2023-03-18] MEDS: amLODIPine Besylate 5 MG TABLET PO (10:37)
[2023-03-18] MEDS: Metoprolol Tartrate 25 MG TABLET PO ×2 (10:37→19:58)
[2023-03-18] MEDS: Sertraline HCL 25 MG TABLET PO (10:37)
--- NOTE | 2023-03-18 12:11 | MHC.CLN ---
RE: CONSULT AND F/U PT IS MODERATELY MALNOURISHED SEE FULL CLINICAL NUTRITION ASSESSMENT DATED 03/17/23 DIET RX: REGULAR-APPROPRIATE PT RECEPTIVE TO DRINKING NUTRITION SUPPLEMENTS (PREFERS SONAL FLAVOR) PT RECEIVING ENSURE BID TO INCREASE KCALS PROVIDES 700KCALS, 40G PROTEIN WILL ADD GELATEIN TO PROMOTE WOUND HEALING MONITOR PO INTAKE CLOSELY
--- NOTE | 2023-03-18 14:21 | PC.NURSE ---
Goyal removed at 1400 per protocol. Patient tolerated well. Due to void at 2000.
[2023-03-18] MEDS: Albuterol/Iprat 2.5/0.5MG 3 ML AMPUL.NEB INHALE (18:59)
[2023-03-18] MEDS: Atorvastatin Calcium 40 MG TABLET PO (19:58)
[2023-03-18] MEDS: Mirtazapine 30 MG TABLET PO (19:58)
[2023-03-19 03:41] VITALS: BP 131/61; PULSE 67; RESP 18; TEMP 37; O2SAT 90
[2023-03-19] MEDS: Heparin Sodium,Porcine 5,000 UNIT/ML VIAL 5000 UNIT SUBCUT ×3 (06:41→22:21)
[2023-03-19] MEDS: Albuterol/Iprat 2.5/0.5MG 3 ML AMPUL.NEB INHALE ×3 (07:41→18:52)
[2023-03-19 07:45] VITALS: BP 150/70; PULSE 71; PULSE 73; RESP 18; RESP 20; TEMP 36.1; O2SAT 100; O2SAT 98
--- NOTE | 2023-03-19 09:28 | HO.PM.IMPN ---
Subjective Subjective Date of Service: 03/19/23 Interval History: f/u on acute hypoxic resp failure interval history: doing much better, no sob Physical Exam Vital Signs: Vital Signs: Last Vital Signs Temp 96.9 F 03/19/23 07:45 Pulse 73 03/19/23 07:45 Resp 18 03/19/23 07:45 BP 150/70 H 03/19/23 07:45 Pulse Ox 100 03/19/23 07:45 O2 Del Method Nasal Cannula 03/19/23 07:45 O2 Flow Rate 3.0 03/19/23 07:45 FiO2 40 03/17/23 06:00 Oxygen Flow Rate 5 03/17/23 01:46 BMI result Body Mass Index 15.3 Const: Other: General: AO X 3, no acute distress Resp: CTA bilateral CVS: S1,S2,RRR GI: +BS, NT, no distention Skin: No rash Neuro: motor grossly intact Psych: appropriate affect Objective Data Active Medications Acetazolamide (Acetazolamide Sodium 500 Mg Vial) 250 mg IVPUSH BID [facility] Stop: 03/19/23 21:01 Last Admin: 03/18/23 19:59 Dose: 250 mg Documented By: LONNIE Albuterol/Ipratropium (Albuterol/Iprat 2.5/0.5mg 3 Ml Ampul.Neb) 3 ml INHALE RQ6H WHILE AWAKE [facility] Last Admin: 03/19/23 07:41 Dose: 3 ml Documented By: SVETA Albuterol/Ipratropium (Albuterol/Iprat 2.5/0.5mg 3 Ml Ampul.Neb) 1 ml INHALE TID PRN PRN Reason: shortness of breath Amlodipine Besylate (Amlodipine Besylate 5 Mg Tablet) 5 mg PO DAILY [facility]; Protocol Last Admin: 03/18/23 10:37 Dose: 5 mg Documented By: LEW Aspirin (Aspirin Enteric Coated 81 Mg Tablet.) 81 mg PO DAILY [facility] Last Admin: 03/18/23 10:37 Dose: 81 mg Documented By: LEW Atorvastatin Calcium (Atorvastatin Calcium 40 Mg Tablet) 40 mg PO BEDTIME [facility] Last Admin: 03/18/23 19:58 Dose: 40 mg Documented By: LONNIE Heparin Sodium (Porcine) (Heparin Sodium,Porcine 5,000 Unit/Ml Vial) 5,000 unit SUBCUT Q8H [facility] Last Admin: 03/19/23 06:41 Dose: 5,000 unit Documented By: JAZMINE Metoprolol Tartrate (Metoprolol Tartrate 25 Mg Tablet) 25 mg PO BID [facility]; Protocol Last Admin: 03/18/23 19:58 Dose: 25 mg Documented By: LONNIE Mirtazapine (Mirtazapine 30 Mg Tablet) 30 mg PO BEDTIME [facility] Last Admin: 03/18/23 19:58 Dose: 30 mg Documented By: LONNIE Omeprazole (Omeprazole 20 Mg Capsule.Dr) 20 mg PO ONCE [facility] Prednisone (Prednisone 20 Mg Tablet) 20 mg PO DAILY [facility] Last Admin: 03/18/23 10:37 Dose: 20 mg Documented By: LEW Sertraline HCl (Sertraline Hcl 25 Mg Tablet) 25 mg PO DAILY [facility] Last Admin: 03/18/23 10:37 Dose: 25 mg Documented By: LEW Labs 03/18/23 06:13 03/18/23 06:13 Labs: Laboratory Results - last 24 hr 03/19/23 08:48 VBG pH 7.54 H VBG pCO2 64 VBG pO2 192 VBG HCO3 55 H VBG O2 Saturation 100.0 VBG Base Excess 29.2 Microbiology Microbiology Results: Microbiology 03/17/23 03:39 Blood Culture - Preliminary Blood - Venous No growth after 48 hours. 03/17/23 03:30 Blood Culture - Preliminary Blood - Venous No growth after 48 hours. Assessment and Plan (1) Acute and chronic respiratory failure with hypercapnia: Status: Acute Plan 57-year-old lady with underlying substance abuse, carotid artery stenosis status post CVA with residual right-sided hemiparesis, COPD with CO2 retention and chronic hypoxia on 2 L of oxygen at home admitted on 03/17/2023 to the ICU due to severe hypercapnia and use recue bipap. Acute on chronic respiratory failure, hypercapnia likele from copd exacerbation, she required bipapd in ICU, use bipap at night, goal of O2 87 to 93%, continue bronchodilators and added Prednisone, moderate protein calory malnutrion--ensure HTN--resume Norvasc and Metoprolol HLD--statin Mood desorder--Sertraline and remron gerd PPI Heparin for DVT prophylaxix need for inaptient acute respiratory failure needing rescue biPAP PT eval before dc Time Spent With Patient Time: Total time managing care of this patient today ____ minutes. Quality Stroke Does the patient have a stroke diagnosis?: No VTE Prior VTE?: No VTE Risk Level:: Medical - moderate - high VTE Device Contraindication: Treatment Not Indicated VTE Drug Contraindication: N/A - Med Ordered
[2023-03-19] MEDS: Metoprolol Tartrate 25 MG TABLET PO ×2 (09:59→19:51)
[2023-03-19] MEDS: Aspirin Enteric Coated 81 MG TABLET.DR PO (09:59)
[2023-03-19] MEDS: Sertraline HCL 25 MG TABLET PO (09:59)
[2023-03-19] MEDS: predniSONE 20 MG TABLET PO (09:59)
[2023-03-19] MEDS: amLODIPine Besylate 5 MG TABLET PO (09:59)
[2023-03-19 11:41] VITALS: BP 146/63; PULSE 79; RESP 18; TEMP 36.6; O2SAT 93
[2023-03-19 13:43] VITALS: PULSE 83; RESP 18; O2SAT 92
[2023-03-19 15:18] VITALS: BP 122/58; PULSE 76; RESP 16; TEMP 36.9; O2SAT 88
[2023-03-19 19:39] VITALS: BP 144/63; PULSE 100; RESP 14; TEMP 36.7; O2SAT 88
[2023-03-19] MEDS: Atorvastatin Calcium 40 MG TABLET PO (19:51)
[2023-03-19] MEDS: Mirtazapine 30 MG TABLET PO (19:51)
[2023-03-20] VITALS (9 sets, daily range): BP systolic 122–158; BP diastolic 50–70; PULSE 71–88; RESP 13–20; TEMP 36–36.7; O2SAT 88–97; BMI 15.3
[2023-03-20] MEDS: Heparin Sodium,Porcine 5,000 UNIT/ML VIAL 5000 UNIT SUBCUT ×3 (05:52→22:24)
[2023-03-20] MEDS: Albuterol/Iprat 2.5/0.5MG 3 ML AMPUL.NEB INHALE ×3 (07:41→19:24)
[2023-03-20] MEDS: Sertraline HCL 25 MG TABLET PO (08:43)
[2023-03-20] MEDS: amLODIPine Besylate 5 MG TABLET PO (08:43)
[2023-03-20] MEDS: predniSONE 20 MG TABLET PO (08:43)
[2023-03-20] MEDS: Metoprolol Tartrate 25 MG TABLET PO ×2 (08:43→20:02)
[2023-03-20] MEDS: Aspirin Enteric Coated 81 MG TABLET.DR PO (08:43)
--- NOTE | 2023-03-20 10:06 | HO.PM.IMPN ---
Subjective Subjective Date of Service: 03/20/23 Interval History: f/u on acute hypoxic resp failure interval history: stable, no new issues, Physical Exam Vital Signs: Vital Signs: Last Vital Signs Temp 97.5 F 03/20/23 07:35 Pulse 78 03/20/23 07:43 Resp 16 03/20/23 07:43 BP 136/65 03/20/23 07:35 Pulse Ox 90 L 03/20/23 07:35 O2 Del Method Nasal Cannula 03/20/23 07:35 O2 Flow Rate 2 03/20/23 07:35 FiO2 40 03/17/23 06:00 Oxygen Flow Rate 5 03/17/23 01:46 BMI result Body Mass Index 15.3 Const: Other: General: AO X 3, no acute distress Resp: CTA bilateral CVS: S1,S2,RRR GI: +BS, NT, no distention Skin: No rash Neuro: motor grossly intact Psych: appropriate affect Objective Data Active Medications Albuterol/Ipratropium (Albuterol/Iprat 2.5/0.5mg 3 Ml Ampul.Neb) 3 ml INHALE RQ6H WHILE AWAKE [facility] Last Admin: 03/20/23 07:41 Dose: 3 ml Documented By: SVETA Albuterol/Ipratropium (Albuterol/Iprat 2.5/0.5mg 3 Ml Ampul.Neb) 1 ml INHALE TID PRN PRN Reason: shortness of breath Amlodipine Besylate (Amlodipine Besylate 5 Mg Tablet) 5 mg PO DAILY [facility]; Protocol Last Admin: 03/20/23 08:43 Dose: 5 mg Documented By: SIMONA Aspirin (Aspirin Enteric Coated 81 Mg Tablet.Dr) 81 mg PO DAILY [facility] Last Admin: 03/20/23 08:43 Dose: 81 mg Documented By: SIMONA Atorvastatin Calcium (Atorvastatin Calcium 40 Mg Tablet) 40 mg PO BEDTIME [facility] Last Admin: 03/19/23 19:51 Dose: 40 mg Documented By: BELÉN Heparin Sodium (Porcine) (Heparin Sodium,Porcine 5,000 Unit/Ml Vial) 5,000 unit SUBCUT Q8H [facility] Last Admin: 03/20/23 05:52 Dose: 5,000 unit Documented By: BELÉN Metoprolol Tartrate (Metoprolol Tartrate 25 Mg Tablet) 25 mg PO BID [facility]; Protocol Last Admin: 03/20/23 08:43 Dose: 25 mg Documented By: SIMONA Mirtazapine (Mirtazapine 30 Mg Tablet) 30 mg PO BEDTIME [facility] Last Admin: 03/19/23 19:51 Dose: 30 mg Documented By: BELÉN Omeprazole (Omeprazole 20 Mg Capsule.) 20 mg PO ONCE [facility] Prednisone (Prednisone 20 Mg Tablet) 20 mg PO DAILY [facility] Last Admin: 03/20/23 08:43 Dose: 20 mg Documented By: SIMONA Sertraline HCl (Sertraline Hcl 25 Mg Tablet) 25 mg PO DAILY [facility] Last Admin: 03/20/23 08:43 Dose: 25 mg Documented By: SIMONA Labs 03/18/23 06:13 03/18/23 06:13 Assessment and Plan (1) Acute and chronic respiratory failure with hypercapnia: Status: Acute Plan 57-year-old lady with underlying substance abuse, carotid artery stenosis status post CVA with residual right-sided hemiparesis, COPD with CO2 retention and chronic hypoxia on 2 L of oxygen at home admitted on 03/17/2023 to the ICU due to severe hypercapnia and use recue bipap. Acute on chronic respiratory failure, hypercapnia likele from copd exacerbation, she required bipapd in ICU, use bipap at night, goal of O2 87 to 93%, continue bronchodilators and Prednisone, moderate protein calory malnutrion--ensure HTN--resume Norvasc and Metoprolol HLD--statin Mood desorder--Sertraline and remron gerd PPI Heparin for DVT prophylaxix need for inaptient acute respiratory failure needing rescue biPAP Anticipated dc in tomorrow Time Spent With Patient Time: Total time managing care of this patient today ____ minutes. Quality Stroke Does the patient have a stroke diagnosis?: No VTE Prior VTE?: No VTE Risk Level:: Medical - moderate - high VTE Device Contraindication: Treatment Not Indicated VTE Drug Contraindication: N/A - Med Ordered
[2023-03-20] MEDS: Mirtazapine 30 MG TABLET PO (20:02)
[2023-03-20] MEDS: Atorvastatin Calcium 40 MG TABLET PO (20:02)
[2023-03-21] VITALS (9 sets, daily range): BP systolic 125–168; BP diastolic 59–70; PULSE 73–98; RESP 14–20; TEMP 36.1–36.5; O2SAT 87–98
[2023-03-21] MEDS: Heparin Sodium,Porcine 5,000 UNIT/ML VIAL 5000 UNIT SUBCUT ×3 (06:03→22:08)
[2023-03-21] MEDS: Metoprolol Tartrate 25 MG TABLET PO ×2 (09:16→20:55)
[2023-03-21] MEDS: Aspirin Enteric Coated 81 MG TABLET.DR PO (09:16)
[2023-03-21] MEDS: Sertraline HCL 25 MG TABLET PO (09:16)
[2023-03-21] MEDS: predniSONE 20 MG TABLET PO (09:16)
[2023-03-21] MEDS: amLODIPine Besylate 5 MG TABLET PO (09:16)
--- NOTE | 2023-03-21 11:15 | P.DS_ITS ---
DS: Providers Provider Date of Service: 03/21/23 Date of admission: 03/17/23 06:45 Primary care physician: Brianna Gonzalez MD DS: Diagnosis Discharge Diagnosis (1) Acute and chronic respiratory failure with hypercapnia: Status: Acute DS: Summary Hospital Course Hospital Course: Chief Complaint: Alteration of mental status 57-year-old lady with underlying substance abuse, carotid artery stenosis status post CVA with residual right-sided hemiparesis, COPD with CO2 retention and chronic hypoxia on 2 L of oxygen at home admitted on 03/17/2023 with worsening lethargy.? On ER evaluation patient with heterogenic hypoxia and worsening CO2 retention requiring BiPAP support, admitted to intensive care unit.? In the intensive care unit patient started on acetazolamide way as diuresis and been able to be titrated of BiPAP support, now with improved mentation on 1 L supplemental oxygen with O2 saturation goal of 87-92%, no higher than 92%. Hospital coruse: Patient presented with altered mental status and ED blood gas showed CO2 retention. She was put on BiPAP, given Diamox for high Co2 and by the following day improved and was dicharged from ICU and continues to recover on the medical floor, she was started on Prednisone for component of copd exacerbation, she is better and has been stable without any signs of further acute respriatory failure and thefore will be discharge back home. Time Spent with Patient Time attestation: Total time managing care of this patient today ____ minutes. Discharge coordination time: Greater than 30 minutes Quality: Safe Use of Opioids Does Pt have an Active Cancer Diagnosis on the Problem List?: No Quality: Stroke Does the patient have a stroke diagnosis?: No Physical Exam Vital Signs: Vital Signs: Last Vital Signs Temp 97.5 F 03/21/23 08:00 Pulse 73 03/21/23 08:00 Resp 20 03/21/23 08:00 BP 168/70 H 03/21/23 08:00 Pulse Ox 96 03/21/23 08:00 O2 Del Method Nasal Cannula 03/21/23 08:00 O2 Flow Rate 3 03/21/23 08:00 FiO2 40 03/17/23 06:00 Oxygen Flow Rate 5 03/17/23 01:46 BMI result Body Mass Index 15.3 Const: Other: General: AO X 3, no acute distress Resp: CTA bilateral CVS: S1,S2,RRR GI: +BS, NT, no distention Skin: No rash Neuro: right remiparesis Psych: appropriate affect DS: Data Data Completed and Pending Completed studies during hospitalization [Text1]: Procedures Assistance with Respiratory Ventilation, 24-96 Consecutive Hours, Continuous Positive Airway Pressure (08/16/21) Insertion of Infusion Device into Superior Vena Cava, Percutaneous Approach (08/16/21) Introduction of Remdesivir Anti-infective into Central Vein, Percutaneous Approach, [employer] (08/16/21) Labs on day of discharge: Preliminary micro results at discharge 03/17/23 03:39 Blood Culture - Preliminary Blood - Venous No growth after 48 hours. 03/17/23 03:30 Blood Culture - Preliminary Blood - Venous No growth after 48 hours. Discharge Plan Discharge Anticipated Discharge Date/Time: 03/21/23 11:12 Patient Disposition: Home Health Service Discharge Diagnosis: Acute respiratory failure with hypercarbia, copd and chf exacerbation Referrals: Brianna Gonzalez MD [Primary Care Provider] - 1 Week Discharge Medications: New prednisone 20 mg Tablet 20 mg PO DAILY Qty: 2 0RF Continued aspirin [Adult Low Dose Aspirin] 81 mg tablet,delayed release (DR/EC) 81 mg PO DAILY ipratropium-albuterol 0.5 mg-3 mg(2.5 mg base)/3 mL solution for nebulization 1 ml inhalation TID PRN (Reason: shortness of breath) 30 Days Qty: 180 5RF atorvastatin 40 mg tablet 40 mg PO BEDTIME 90 Days Qty: 90 1RF mirtazapine 30 mg tablet 30 mg PO BEDTIME 90 Days Qty: 90 0RF albuterol sulfate 90 mcg/actuation HFA aerosol inhaler 2 puff PO Q6H PRN (Reason: bronchospasm) 30 Days Qty: 6.7 5RF amlodipine 5 mg tablet 5 mg PO DAILY 90 Days Qty: 90 1RF omeprazole 20 mg capsule,delayed release(DR/EC) 20 mg PO ONCE 90 Days Qty: 90 0RF metoprolol tartrate 25 mg tablet 25 mg PO BID 90 Days Qty: 180 1RF sertraline 25 mg tablet 25 mg PO DAILY 90 Days Qty: 90 1RF Discharge Orders: Discharge Order (Routine); Ordered 03/21/23 Ordered By: Berlin Garcia Diet: Advance to usual diet Activity on Discharge: As tolerated Stand Alone Forms: Patient Portal Discharge page Care Plan Goals: full recovery from respiratory failure Health Concerns: chronic respriatory failure Plan of Treatment: take Prednisone as directed use oxygen as before 2 liters by nasal canula at all times Assessment: as above
--- NOTE | 2023-03-21 11:28 | MHC.CM.PN ---
Addendum entered by Cece De Leon 03/21/23 14:53: CM AND MET WITH PT TO DISCUSS DC PLAN SHE IS AWARE STR WAS RECOMMENDED SHE DECLINES REHAB BUT IS AGREEABLE TO HOME PT PLAN IS FOR DC TOMORROW MORNING WITH [facility] Addendum entered by Cece De Leon 03/21/23 13:22: [facility] HAS ACCEPTED REFERRAL Original Note: PT WILL DC HOME TODAY [facility] ORDERED REFERRAL OUT [facility] TRANSPORT
[2023-03-21] MEDS: Albuterol/Iprat 2.5/0.5MG 3 ML AMPUL.NEB INHALE ×2 (11:57→19:44)
--- NOTE | 2023-03-21 17:35 | P.PNIM_ITS ---
Subjective Subjective Date of Service: 03/21/23 Interval History: f/u on acute hypoxic resp failure interval history: feels constipated, nausea Physical Exam Vital Signs: Vital Signs: Last Vital Signs Temp 97.6 F 03/21/23 15:43 Pulse 82 03/21/23 15:43 Resp 20 03/21/23 15:43 BP 134/63 03/21/23 15:43 Pulse Ox 90 L 03/21/23 15:43 O2 Del Method Room Air 03/21/23 15:43 O2 Flow Rate 3 03/21/23 15:43 FiO2 40 03/17/23 06:00 Oxygen Flow Rate 5 03/17/23 01:46 BMI result Body Mass Index 15.3 Const: Other: General: AO X 3, no acute distress Resp: CTA bilateral CVS: S1,S2,RRR GI: +BS, NT, no distention Skin: No rash Neuro: right remiparesis Psych: appropriate affect Objective Data Active Medications Albuterol/Ipratropium (Albuterol/Iprat 2.5/0.5mg 3 Ml Ampul.Neb) 3 ml INHALE RQ6H WHILE AWAKE [facility] Last Admin: 03/21/23 11:57 Dose: 3 ml Documented By: GAVIN Albuterol/Ipratropium (Albuterol/Iprat 2.5/0.5mg 3 Ml Ampul.Neb) 1 ml INHALE TID PRN PRN Reason: shortness of breath Amlodipine Besylate (Amlodipine Besylate 5 Mg Tablet) 5 mg PO DAILY [facility]; P rotocol Last Admin: 03/21/23 09:16 Dose: 5 mg Documented By: POONAM Aspirin (Aspirin Enteric Coated 81 Mg Tablet.Dr) 81 mg PO DAILY [facility] Last Admin: 03/21/23 09:16 Dose: 81 mg Documented By: POONAM Atorvastatin Calcium (Atorvastatin Calcium 40 Mg Tablet) 40 mg PO BEDTIME [facility] Last Admin: 03/20/23 20:02 Dose: 40 mg Documented By: JORGE Heparin Sodium (Porcine) (Heparin Sodium,Porcine 5,000 Unit/Ml Vial) 5,000 unit SUBCUT Q8H [facility] Last Admin: 03/21/23 14:37 Dose: 5,000 unit Documented By: KAYLA Metoprolol Tartrate (Metoprolol Tartrate 25 Mg Tablet) 25 mg PO BID [facility]; Protocol Last Admin: 03/21/23 09:16 Dose: 25 mg Documented By: POONAM Mirtazapine (Mirtazapine 30 Mg Tablet) 30 mg PO BEDTIME [facility] Last Admin: 03/20/23 20:02 Dose: 30 mg Documented By: JORGE Omeprazole (Omeprazole 20 Mg Capsule.) 20 mg PO ONCE [facility] Polyethylene Glycol (Polyethylene Glycol 3350 17 Gm Powd.Pack) 17 gm PO DAILY PRN PRN Reason: Constipation Last Admin: 03/21/23 12:19 Dose: 17 gm Documented By: KAYLA Prednisone (Prednisone 20 Mg Tablet) 20 mg PO DAILY [facility] Last Admin: 03/21/23 09:16 Dose: 20 mg Documented By: POONAM Sertraline HCl (Sertraline Hcl 25 Mg Tablet) 25 mg PO DAILY [facility] Last Admin: 03/21/23 09:16 Dose: 25 mg Documented By: POONAM Labs 03/18/23 06:13 03/18/23 06:13 Assessment and Plan (1) Acute and chronic respiratory failure with hypercapnia: Status: Acute Plan 57-year-old lady with underlying substance abuse, carotid artery stenosis status post CVA with residual right-sided hemiparesis, COPD with CO2 retention and chronic hypoxia on 2 L of oxygen at home admitted on 03/17/2023 to the ICU due to severe hypercapnia and use recue bipap. Acute on chronic respiratory failure, hypercapnia likele from copd exacerbation, she required bipapd in ICU, use bipap at night, goal of O2 87 to 93%, continue bronchodilators and Prednisone for 3 more days moderate protein calory malnutrion--ensure HTN--resume Norvasc and Metoprolol HLD--statin Mood desorder--Sertraline and remron gerd PPI constipatation--miralax, enemia, colace Heparin for DVT prophylaxix need for inaptient acute respiratory failure needing rescue biPAP Anticipated dc in tomorrow, she doesn't want to go rehab, home with [facility] tomorrow Time Spent With Patient Time: Total time managing care of this patient today ____ minutes. Quality Stroke Does the patient have a stroke diagnosis?: No VTE Prior VTE?: No VTE Risk Level:: Medical - moderate - high VTE Device Contraindication: Treatment Not Indicated VTE Drug Contraindication: N/A - Med Ordered
[2023-03-21] MEDS: Atorvastatin Calcium 40 MG TABLET PO (20:55)
[2023-03-21] MEDS: Mirtazapine 30 MG TABLET PO (20:55)
[2023-03-22] VITALS (8 sets, daily range): BP systolic 113–145; BP diastolic 54–82; PULSE 70–94; RESP 16–20; TEMP 36.1–37.1; O2SAT 90–100; BMI 15.5
--- NOTE | 2023-03-22 01:33 | PC.RT ---
PT refusing BIPAP x3 nights
[2023-03-22] MEDS: Heparin Sodium,Porcine 5,000 UNIT/ML VIAL 5000 UNIT SUBCUT ×2 (06:10→17:59)
[2023-03-22] MEDS: Albuterol/Iprat 2.5/0.5MG 3 ML AMPUL.NEB INHALE ×3 (07:46→20:56)
--- NOTE | 2023-03-22 08:18 | MHC.CM.PN ---
Addendum entered by Jennifer Garcia RN 03/22/23 11:28: PT NOW AGREEABLE TO STR, SNF REF PLACED TO LOCAL SNF'S PER PT PREFERENCE Addendum entered by Jennifer Garcia RN 03/22/23 10:27: PT H&H LOW, LABS TO BE RECHECKED AND IF STABLE PT WILL D/C PLANNED IF NOT PT WILL LIKELY NEED TO BE TRANSFUSED Original Note: PT MEDICALLY CLEARED FOR D/C HOME W/[facility] FOR HOME PT, FAMILY WILL TRANSPORT
[2023-03-22] MEDS: Aspirin Enteric Coated 81 MG TABLET.DR PO (09:34)
[2023-03-22] MEDS: amLODIPine Besylate 5 MG TABLET PO (09:34)
[2023-03-22] MEDS: predniSONE 20 MG TABLET PO (09:34)
[2023-03-22] MEDS: Metoprolol Tartrate 25 MG TABLET PO ×2 (09:35→20:17)
[2023-03-22] MEDS: Sertraline HCL 25 MG TABLET PO (09:36)
--- NOTE | 2023-03-22 10:09 | MHC.CLN ---
F/U PO INTAKE 50-100% DIET RX: REGULAR-APPROPRIATE PT RECEPTIVE TO DRINKING NUTRITION SUPPLEMENTS (PREFERS SONAL FLAVOR) PT RECEIVING ENSURE BID TO INCREASE KCALS PROVIDES 700KCALS, 40G PROTEIN IN ADDITION, GELATEIN BID ON MEAL TRAYS TO PROMOTE WOUND HEALING CONTINUE TO MONITOR PO INTAKE CLOSELY
[2023-03-22 10:36] LABS: Hematocrit 28.7 % (37.0-47.0); Hemoglobin 8.3 g/dl (12.0-16.0)
[2023-03-22 11:22] LABS: Anion Gap 14 (12-20); Blood Urea Nitrogen 15 mg/dL (9-16); Calcium 10.2 mg/dL (8.4-10.2); Carbon Dioxide 42 mmol/L (22-29); Chloride 90 mmol/L (96-108); Creatinine Clr Calc Pharmacy 62.1; Estimated Glomerular Filt Rate > 60; Glucose Random 89 mg/dL (60-115); Potassium 4.1 mmol/L (3.3-5.1); Sodium 142 mmol/L (135-145)
--- NOTE | 2023-03-22 12:09 | P.DS_ITS ---
DS: Providers Provider Date of Service: 03/22/23 Date of admission: 03/17/23 06:45 Date of discharge: 03/22/23 Primary care physician: Brianna Gonzalez MD DS: Diagnosis Discharge Diagnosis (1) Acute and chronic respiratory failure with hypercapnia: Status: Acute DS: Summary Hospital Course Hospital Course: Chief Complaint: Alteration of mental status 57-year-old lady with underlying substance abuse, carotid artery stenosis status post CVA with residual right-sided hemiparesis, COPD with CO2 retention and chronic hypoxia on 2 L of oxygen at home admitted on 03/17/2023 with worsening lethargy.? On ER evaluation patient with heterogenic hypoxia and worsening CO2 retention requiring BiPAP support, admitted to intensive care unit.? In the intensive care unit patient started on acetazolamide way as diuresis and been able to be titrated of BiPAP support, now with improved mentation on 1 L supplemental oxygen with O2 saturation goal of 87-92%, no higher than 92%. Hospital coruse: Patient presented with altered mental status and ED blood gas showed CO2 retention-admitted to ICU for?Acute and chronic respiratory failure with hypercapnia -she was placed on BiPAP, given Diamox for high Co2 , subsequently with above supportive care patient seems to be improving and afterwards transfer to the medical floor from ICU , she was started on Prednisone for component of copd exacerbation, she is better and has been stable without any signs of further acute respriatory failure and her bicarb is also improving. Patient says that she uses 3-4 L oxygen at baseline. Monitor BMP in 1 week in rehab to recheck bicarb levels. Seen by PT recommended rehab. Normocytic anemia: H&H is stable around 8.3 /28.7. Her baseline is between hemoglobin 9-10 range. Monitor CBC outpatient and further workup outpatient. Plan: Complete p.o. prednisone as prescribed. Monitor CBC for anemia, BMP to recheck bicarb levels. Above management discussed the patient in detail length she understand and in agreement with the above plan, time spent 50 minute. Patient will benefit from less than 30 days rehab stay. Time Spent with Patient Time attestation: Total time managing care of this patient today ____ minutes. Discharge coordination time: Greater than 30 minutes Quality: Safe Use of Opioids Does Pt have an Active Cancer Diagnosis on the Problem List?: No Quality: Stroke Does the patient have a stroke diagnosis?: No Physical Exam Vital Signs: Vital Signs: Last Vital Signs Temp 97.1 F 03/22/23 11:22 Pulse 75 03/22/23 11:22 Resp 20 03/22/23 11:22 BP 113/54 L 03/22/23 11:22 Pulse Ox 95 03/22/23 11:22 O2 Del Method Nasal Cannula 03/22/23 11:22 O2 Flow Rate 3 03/22/23 11:22 FiO2 40 03/17/23 06:00 Oxygen Flow Rate 5 03/17/23 01:46 BMI result Body Mass Index 15.5 General: AO X 3, no acute distress Resp:? CTA bilateral CVS: S1,S2,RRR GI: +BS, NT, no distention Skin: No rash Neuro:? right remiparesis Psych: appropriate affect DS: Data Data Completed and Pending Completed studies during hospitalization [Text1]: Procedures Assistance with Respiratory Ventilation, 24-96 Consecutive Hours, Continuous Positive Airway Pressure (08/16/21) Insertion of Infusion Device into Superior Vena Cava, Percutaneous Approach (08/16/21) Introduction of Remdesivir Anti-infective into Central Vein, Percutaneous Approach, [employer] 5 (08/16/21) Labs on day of discharge: Laboratory Results - last 24 hr 03/22/23 03/22/23 09:55 09:55 Hgb 8.3 L Hct 28.7 L Sodium 142 Potassium 4.1 Chloride 90 L Carbon Dioxide 42 H* Anion Gap 14 BUN 15 Creatinine 0.58 Estim Creat Clear Calc 62.1 Estimated GFR > 60 Random Glucose 89 Calcium 10.2 D Imaging Chest x-ray: Radiologist's impression: ITS Impressions Chest X-Ray 03/17/23 02:12 IMPRESSION: * No acute findings. * Emphysema. Head CT 03/17/23 03:15 IMPRESSION: * No evidence of acute intracranial hemorrhage or edematous territorial infarction. * Extensive encephalomalacia and gliosis throughout the left frontal lobe and to lesser extent the left parietal lobe. Discharge Plan Discharge Anticipated Discharge Date/Time: 03/21/23 11:12 Patient Disposition: Home Health Service Discharge Diagnosis: Acute respiratory failure with hypercarbia, copd and chf exacerbation Referrals: Gina Whittaker [Outside] - 1 Week (HOME PT) Brianna Gonzalez MD [Primary Care Provider] - 1 Week Discharge Medications: New prednisone 20 mg Tablet 20 mg PO DAILY Qty: 2 0RF Continued aspirin [Adult Low Dose Aspirin] 81 mg tablet,delayed release (DR/EC) 81 mg PO DAILY ipratropium-albuterol 0.5 mg-3 mg(2.5 mg base)/3 mL solution for nebulization 1 ml inhalation TID PRN (Reason: shortness of breath) 30 Days Qty: 180 5RF atorvastatin 40 mg tablet 40 mg PO BEDTIME 90 Days Qty: 90 1RF mirtazapine 30 mg tablet 30 mg PO BEDTIME 90 Days Qty: 90 0RF albuterol sulfate 90 mcg/actuation HFA aerosol inhaler 2 puff PO Q6H PRN (Reason: bronchospasm) 30 Days Qty: 6.7 5RF amlodipine 5 mg tablet 5 mg PO DAILY 90 Days Qty: 90 1RF omeprazole 20 mg capsule,delayed release(DR/EC) 20 mg PO ONCE 90 Days Qty: 90 0RF metoprolol tartrate 25 mg tablet 25 mg PO BID 90 Days Qty: 180 1RF sertraline 25 mg tablet 25 mg PO DAILY 90 Days Qty: 90 1RF Discharge Orders: Discharge Order (Routine); Ordered 03/21/23 Ordered By: Berlin Garcia Diet: Advance to usual diet Activity on Discharge: As tolerated Stand Alone Forms: Patient Portal Discharge page Care Plan Goals: full recovery from respiratory failure Health Concerns: chronic respriatory failure Plan of Treatment: take Prednisone as directed use oxygen as before 3-4liters by nasal canula at all times Assessment: as above
--- NOTE | 2023-03-22 15:46 | HO.PM.IMPN ---
Subjective Subjective Date of Service: 03/23/23 Interval History: COPD exacerbation Review of Systems Patient seems to be improved, now seems to be at baseline. As per patient she uses 3-4 L oxygen at home. Physical Exam Vital Signs: Vital Signs: Last Vital Signs Temp 97.2 F 03/22/23 15:25 Pulse 92 03/22/23 15:25 Resp 20 03/22/23 15:25 BP 145/65 H 03/22/23 15:25 Pulse Ox 94 03/22/23 15:25 O2 Del Method Nasal Cannula 03/22/23 15:25 O2 Flow Rate 3 03/22/23 15:25 FiO2 40 03/17/23 06:00 Oxygen Flow Rate 5 03/17/23 01:46 BMI result Body Mass Index 15.5 General: AO X 3, no acute distress Resp:? CTA bilateral CVS: S1,S2,RRR GI: +BS, NT, no distention Skin: No rash Neuro:? right remiparesis Psych: appropriate affect Objective Data Active Medications Albuterol/Ipratropium (Albuterol/Iprat 2.5/0.5mg 3 Ml Ampul.Neb) 3 ml INHALE RQ6H WHILE AWAKE [facility] Last Admin: 03/22/23 07:46 Dose: 3 ml Documented By: GAVIN Albuterol/Ipratropium (Albuterol/Iprat 2.5/0.5mg 3 Ml Ampul.Neb) 1 ml INHALE TID PRN PRN Reason: shortness of breath Amlodipine Besylate (Amlodipine Besylate 5 Mg Tablet) 5 mg PO DAILY [facility]; Protocol Last Admin: 03/22/23 09:34 Dose: 5 mg Documented By: RANCHO Aspirin (Aspirin Enteric Coated 81 Mg Tablet.) 81 mg PO DAILY [facility] Last Admin: 03/22/23 09:34 Dose: 81 mg Documented By: RANCHO Atorvastatin Calcium (Atorvastatin Calcium 40 Mg Tablet) 40 mg PO BEDTIME [facility] Last Admin: 03/21/23 20:55 Dose: 40 mg Documented By: OBI Heparin Sodium (Porcine) (Heparin Sodium,Porcine 5,000 Unit/Ml Vial) 5,000 unit SUBCUT Q8H [facility] Last Admin: 03/22/23 06:10 Dose: 5,000 unit Documented By: HEATHER Metoprolol Tartrate (Metoprolol Tartrate 25 Mg Tablet) 25 mg PO BID [facility]; Protocol Last Admin: 03/22/23 09:35 Dose: 25 mg Documented By: RANCHO Mirtazapine (Mirtazapine 30 Mg Tablet) 30 mg PO BEDTIME [facility] Last Admin: 03/21/23 20:55 Dose: 30 mg Documented By: OBI Omeprazole (Omeprazole 20 Mg Capsule.Dr) 20 mg PO ONCE [facility] Polyethylene Glycol (Polyethylene Glycol 3350 17 Gm Powd.Pack) 17 gm PO DAILY PRN PRN Reason: Constipation Last Admin: 03/21/23 12:19 Dose: 17 gm Documented By: KAYLA Prednisone (Prednisone 20 Mg Tablet) 20 mg PO DAILY [facility] Last Admin: 03/22/23 09:34 Dose: 20 mg Documented By: RANCHO Sertraline HCl (Sertraline Hcl 25 Mg Tablet) 25 mg PO DAILY [facility] Last Admin: 03/22/23 09:36 Dose: 25 mg Documented By: RANCHO Labs 03/22/23 09:55 03/22/23 09:55 Labs: Laboratory Results - last 24 hr 03/22/23 09:55 Anion Gap 14 Estim Creat Clear Calc 62.1 Estimated GFR > 60 Random Glucose 89 Calcium 10.2 D Microbiology Microbiology Results: Microbiology 03/17/23 03:39 Blood Culture - Final Blood - Venous No growth after 5 days. 03/17/23 03:30 Blood Culture - Final Blood - Venous No growth after 5 days. Assessment and Plan (1) Acute and chronic respiratory failure with hypercapnia: Status: Acute (2) Acute exacerbation of COPD with asthma: Status: Acute Assessment and Plan: 57-year-old lady with underlying substance abuse, carotid artery stenosis status post CVA with residual right-sided hemiparesis, COPD with CO2 retention and chronic hypoxia on 2 L of oxygen at home admitted on 03/17/2023 to the ICU due to severe hypercapnia and use recue bipap. Acute on chronic respiratory failure, hypercapnia likele from copd exacerbation, she required bipapd in ICU, use bipap at night, goal of O2 87 to 93%, continue bronchodilators and ? Prednisone for 3 more days moderate protein calory malnutrion--ensure HTN--resume Norvasc and Metoprolol HLD--statin Mood desorder--Sertraline and remron gerd PPI constipatation--miralax, enemia, colace Heparin for DVT prophylaxix need for inaptient acute respiratory failure needing rescue biPAP dispo: awaiting rehab bed. Time Spent With Patient Time: Total time managing care of this patient today ____ minutes. Quality Stroke Does the patient have a stroke diagnosis?: No VTE Prior VTE?: No VTE Risk Level:: Medical - moderate - high VTE Device Contraindication: Treatment Not Indicated VTE Drug Contraindication: N/A - Med Ordered
[2023-03-22] MEDS: Mirtazapine 30 MG TABLET PO (20:17)
[2023-03-22] MEDS: Atorvastatin Calcium 40 MG TABLET PO (20:17)
[2023-03-23] VITALS (10 sets, daily range): BP systolic 110–152; BP diastolic 50–67; PULSE 75–95; RESP 16–20; TEMP 36.1–36.7; O2SAT 89–100
[2023-03-23] MEDS: Heparin Sodium,Porcine 5,000 UNIT/ML VIAL 5000 UNIT SUBCUT ×3 (05:57→21:33)
--- NOTE | 2023-03-23 09:48 | MHC.CM.PN ---
EMR REVIEWED, CM STILL AWAITING BED OFFER FOR STR, SNF REFERRAL EXPANDED, CM WILL CONT TO FOLLOW D/C NEEDS.
[2023-03-23] MEDS: amLODIPine Besylate 5 MG TABLET PO (10:24)
[2023-03-23] MEDS: Sertraline HCL 25 MG TABLET PO (10:24)
[2023-03-23] MEDS: Aspirin Enteric Coated 81 MG TABLET.DR PO (10:24)
[2023-03-23] MEDS: Metoprolol Tartrate 25 MG TABLET PO ×2 (10:25→21:32)
[2023-03-23] MEDS: predniSONE 20 MG TABLET PO (10:29)
--- NOTE | 2023-03-23 13:17 | MHC.CLN ---
F/U WT STABLE PO INTAKE 50-100% DIET RX: REGULAR-APPROPRIATE PT RECEIVING ENSURE BID TO INCREASE KCALS PROVIDES 700KCALS, 40G PROTEIN IN ADDITION, GELATEIN BID ON MEAL TRAYS TO PROMOTE WOUND HEALING CONTINUE TO MONITOR PO INTAKE CLOSELY
[2023-03-23] MEDS: Albuterol/Iprat 2.5/0.5MG 3 ML AMPUL.NEB INHALE ×2 (14:19→20:33)
--- NOTE | 2023-03-23 15:34 | HO.PM.IMPN ---
Subjective Subjective Date of Service: 03/23/23 Interval History: COPD exacerbation Review of Systems Patient seems to be improved, now seems to be at baseline.?? Physical Exam Vital Signs: Vital Signs: Last Vital Signs Temp 98.1 F 03/23/23 15:10 Pulse 95 03/23/23 15:10 Resp 18 03/23/23 15:10 BP 152/67 H 03/23/23 15:10 Pulse Ox 90 L 03/23/23 15:10 O2 Del Method Nasal Cannula 03/23/23 15:10 O2 Flow Rate 3 03/23/23 11:23 FiO2 40 03/17/23 06:00 Oxygen Flow Rate 5 03/17/23 01:46 BMI result Body Mass Index 15.5 General: AO X 3, no acute distress Resp:? CTA bilateral CVS: S1,S2,RRR GI: +BS, NT, no distention Skin: No rash Neuro:? right remiparesis Psych: appropriate affect Objective Data Active Medications Albuterol/Ipratropium (Albuterol/Iprat 2.5/0.5mg 3 Ml Ampul.Neb) 3 ml INHALE RQ6H WHILE AWAKE [facility] Last Admin: 03/23/23 14:19 Dose: 3 ml Documented By: TAISHA Albuterol/Ipratropium (Albuterol/Iprat 2.5/0.5mg 3 Ml Ampul.Neb) 1 ml INHALE TID PRN PRN Reason: shortness of breath Amlodipine Besylate (Amlodipine Besylate 5 Mg Tablet) 5 mg PO DAILY [facility]; Protocol Last Admin: 03/23/23 10:24 Dose: 5 mg Documented By: RANCHO Aspirin (Aspirin Enteric Coated 81 Mg Tablet.) 81 mg PO DAILY [facility] Last Admin: 03/23/23 10:24 Dose: 81 mg Documented By: RANCHO Atorvastatin Calcium (Atorvastatin Calcium 40 Mg Tablet) 40 mg PO BEDTIME [facility] Last Admin: 03/22/23 20:17 Dose: 40 mg Documented By: NAYE Heparin Sodium (Porcine) (Heparin Sodium,Porcine 5,000 Unit/Ml Vial) 5,000 unit SUBCUT Q8H [facility] Last Admin: 03/23/23 05:57 Dose: 5,000 unit Documented By: NAYE Metoprolol Tartrate (Metoprolol Tartrate 25 Mg Tablet) 25 mg PO BID [facility]; Protocol Last Admin: 03/23/23 10:25 Dose: 25 mg Documented By: RANCHO Mirtazapine (Mirtazapine 30 Mg Tablet) 30 mg PO BEDTIME [facility] Last Admin: 03/22/23 20:17 Dose: 30 mg Documented By: NAYE Omeprazole (Omeprazole 20 Mg Capsule.Dr) 20 mg PO ONCE [facility] Polyethylene Glycol (Polyethylene Glycol 3350 17 Gm Powd.Pack) 17 gm PO DAILY PRN PRN Reason: Constipation Last Admin: 03/21/23 12:19 Dose: 17 gm Documented By: KAYLA Prednisone (Prednisone 20 Mg Tablet) 20 mg PO DAILY [facility] Last Admin: 03/23/23 10:29 Dose: 20 mg Documented By: RANCHO Sertraline HCl (Sertraline Hcl 25 Mg Tablet) 25 mg PO DAILY [facility] Last Admin: 03/23/23 10:24 Dose: 25 mg Documented By: RANCHO Labs 03/22/23 09:55 03/22/23 09:55 Assessment and Plan (1) Acute and chronic respiratory failure with hypercapnia: Status: Acute (2) Acute exacerbation of COPD with asthma: Status: Acute Assessment and Plan: 57-year-old lady with underlying substance abuse, carotid artery stenosis status post CVA with residual right-sided hemiparesis, COPD with CO2 retention and chronic hypoxia on 2 L of oxygen at home admitted on 03/17/2023 to the ICU due to severe hypercapnia and use recue bipap. Acute on chronic respiratory failure, hypercapnia likele from copd exacerbation, she required bipapd in ICU, use bipap at night, goal of O2 87 to 93%, continue bronchodilators and ? Prednisone for 3 more days moderate protein calory malnutrion--ensure HTN--resume Norvasc and Metoprolol HLD--statin Mood desorder--Sertraline and remron gerd PPI constipatation--miralax, enemia, colace Heparin for DVT prophylaxix need for inaptient acute respiratory failure needing rescue biPAP dispo: awaiting rehab bed. Time Spent With Patient Time: Total time managing care of this patient today ____ minutes. Quality Stroke Does the patient have a stroke diagnosis?: No VTE Prior VTE?: No VTE Risk Level:: Medical - moderate - high VTE Device Contraindication: Treatment Not Indicated VTE Drug Contraindication: N/A - Med Ordered
[2023-03-23] MEDS: Acetaminophen 325 MG TABLET 650 MG PO (21:32)
[2023-03-23] MEDS: Atorvastatin Calcium 40 MG TABLET PO (21:32)
[2023-03-23] MEDS: Mirtazapine 30 MG TABLET PO (21:32)
[2023-03-24] VITALS (8 sets, daily range): BP systolic 138–145; BP diastolic 62–65; PULSE 72–100; RESP 14–20; TEMP 36.2–36.9; O2SAT 91–100
[2023-03-24] MEDS: Heparin Sodium,Porcine 5,000 UNIT/ML VIAL 5000 UNIT SUBCUT ×3 (05:54→22:51)
[2023-03-24] MEDS: Albuterol/Iprat 2.5/0.5MG 3 ML AMPUL.NEB INHALE ×2 (07:47→14:47)
--- NOTE | 2023-03-24 08:50 | MHC.CM.PN ---
EMR REVIEWED, PT REMAINS MEDICALLY CLEARED FOR D/C HOWEVER CM HAS BEEN UNABLE TO SECURE A STR BED, PT DOES HAVE HX OF COCAINE ABUSE, CURRENT TOX SCREEN NEG FOR ALL SUBSTANCES HOWEVER REFERRAL EXPANDED TO [facility], IF NO OFFERS CM WILL DISCUSS W/PT AFTER AM ROUNDS.
[2023-03-24] MEDS: Aspirin Enteric Coated 81 MG TABLET.DR PO (10:46)
[2023-03-24] MEDS: Metoprolol Tartrate 25 MG TABLET PO ×2 (10:47→20:46)
[2023-03-24] MEDS: predniSONE 20 MG TABLET PO (10:47)
[2023-03-24] MEDS: amLODIPine Besylate 5 MG TABLET PO (10:47)
[2023-03-24] MEDS: Sertraline HCL 25 MG TABLET PO (10:47)
--- NOTE | 2023-03-24 13:44 | MHC.CM.PN ---
CM MET W/PT TO DISCUSS DISPO, PT AWARE [facility] WAS ONLY BED OFFER AND THEY HAVE GONE FOR AUTH, PT NOW UNSURE ABOUT GOING AND DOES NOT WANT CM TO EXPAND REFERRAL ANY FARTHER AWAY FROM [facility]. PT REPORTS SHE WILL CONSIDER [facility] VS RETURNING HOME W/SERVICES WHILE AWAITING AUTH TO COME THROUGH. CM WILL CONT TO FOLLOW D/C NEEDS.
--- NOTE | 2023-03-24 13:46 | P.PNIM_ITS ---
Subjective Subjective Date of Service: 03/25/23 Interval History: COPD exacerbation Review of Systems Patient seems to be improved, now seems to be at baseline.?? Physical Exam Vital Signs: Vital Signs: Last Vital Signs Temp 97.3 F 03/24/23 11:35 Pulse 94 03/24/23 11:35 Resp 20 03/24/23 11:35 BP 138/62 03/24/23 11:35 Pulse Ox 92 03/24/23 11:35 O2 Del Method Nasal Cannula 03/24/23 11:35 O2 Flow Rate 3 03/24/23 11:35 FiO2 40 03/17/23 06:00 Oxygen Flow Rate 5 03/17/23 01:46 BMI result Body Mass Index 15.5 General: AO X 3, no acute distress Resp:? CTA bilateral CVS: S1,S2,RRR GI: +BS, NT, no distention Skin: No rash Neuro:? right remiparesis Psych: appropriate affect Objective Data Active Medications Acetaminophen (Acetaminophen 325 Mg Tablet) 650 mg PO Q8H PRN PRN Reason: Pain, Mild (Pain Scale 1-3) Last Admin: 03/23/23 21:32 Dose: 650 mg Documented By: MINH Albuterol/Ipratropium (Albuterol/Iprat 2.5/0.5mg 3 Ml Ampul.Neb) 3 ml INHALE RQ6H WHILE AWAKE [facility] Last Admin: 03/24/23 07:47 Dose: 3 ml Documented By: MARK Albuterol/Ipratropium (Albuterol/Iprat 2.5/0.5mg 3 Ml Ampul.Neb) 1 ml INHALE TID PRN PRN Reason: shortness of breath Amlodipine Besylate (Amlodipine Besylate 5 Mg Tablet) 5 mg PO DAILY [facility]; Protocol Last Admin: 03/24/23 10:47 Dose: 5 mg Documented By: RANCHO Aspirin (Aspirin Enteric Coated 81 Mg Tablet.) 81 mg PO DAILY [facility] Last Admin: 03/24/23 10:46 Dose: 81 mg Documented By: RANCHO Atorvastatin Calcium (Atorvastatin Calcium 40 Mg Tablet) 40 mg PO BEDTIME [facility] Last Admin: 03/23/23 21:32 Dose: 40 mg Documented By: MINH Heparin Sodium (Porcine) (Heparin Sodium,Porcine 5,000 Unit/Ml Vial) 5,000 unit SUBCUT Q8H [facility] Last Admin: 03/24/23 05:54 Dose: 5,000 unit Documented By: KAYLEEN Metoprolol Tartrate (Metoprolol Tartrate 25 Mg Tablet) 25 mg PO BID [facility]; Protocol Last Admin: 03/24/23 10:47 Dose: 25 mg Documented By: RANCHO Mirtazapine (Mirtazapine 30 Mg Tablet) 30 mg PO BEDTIME [facility] Last Admin: 03/23/23 21:32 Dose: 30 mg Documented By: MINH Omeprazole (Omeprazole 20 Mg Capsule.) 20 mg PO ONCE [facility] Polyethylene Glycol (Polyethylene Glycol 3350 17 Gm Powd.Pack) 17 gm PO DAILY PRN PRN Reason: Constipation Last Admin: 03/21/23 12:19 Dose: 17 gm Documented By: KAYLA Prednisone (Prednisone 20 Mg Tablet) 20 mg PO DAILY [facility] Last Admin: 03/24/23 10:47 Dose: 20 mg Documented By: RANCHO Sertraline HCl (Sertraline Hcl 25 Mg Tablet) 25 mg PO DAILY [facility] Last Admin: 03/24/23 10:47 Dose: 25 mg Documented By: RANCHO Labs 03/22/23 09:55 03/22/23 09:55 Assessment and Plan (1) Acute and chronic respiratory failure with hypercapnia: Status: Acute (2) Acute exacerbation of COPD with asthma: Status: Acute Assessment and Plan: 57-year-old lady with underlying substance abuse, carotid artery stenosis status post CVA with residual right-sided hemiparesis, COPD with CO2 retention and chronic hypoxia on 2 L of oxygen at home admitted on 03/17/2023 to the ICU due to severe hypercapnia and use recue bipap. Acute on chronic respiratory failure, hypercapnia likele from copd exacerbation, she required bipapd in ICU, use bipap at night, goal of O2 87 to 93%, continue bronchodilators and ? Prednisone for 3 more days moderate protein calory malnutrion--ensure HTN--resume Norvasc and Metoprolol HLD--statin Mood desorder--Sertraline and remron gerd PPI constipatation--miralax, enemia, colace Heparin for DVT prophylaxix need for inaptient acute respiratory failure needing rescue biPAP dispo: awaiting rehab bed. Time Spent With Patient Time: Total time managing care of this patient today ____ minutes. Quality Stroke Does the patient have a stroke diagnosis?: No VTE Prior VTE?: No VTE Risk Level:: Medical - moderate - high VTE Device Contraindication: Treatment Not Indicated VTE Drug Contraindication: N/A - Med Ordered
[2023-03-24] MEDS: Atorvastatin Calcium 40 MG TABLET PO (20:46)
[2023-03-24] MEDS: Mirtazapine 30 MG TABLET PO (20:46)
[2023-03-24] MEDS: Acetaminophen 325 MG TABLET 650 MG PO (20:46)
[2023-03-25] VITALS (10 sets, daily range): BP systolic 128–153; BP diastolic 56–76; PULSE 78–95; RESP 14–20; TEMP 36.1–37.1; O2SAT 92–100; BMI 15.8
[2023-03-25] MEDS: Heparin Sodium,Porcine 5,000 UNIT/ML VIAL 5000 UNIT SUBCUT ×3 (05:37→21:51)
--- NOTE | 2023-03-25 09:04 | MHC.CM.PN ---
Addendum entered by Jennifer Garcia RN 03/25/23 15:15: CASE DISCUSSED W/CM HEADER BOSS WHO RECOMMENDED CM CONTACT [facility] FOR WELLNESS CHECK ON DTR LUX AGU[facility] WHICH HAS BEEN DONE, CM AWAITING FOLLOW UP CALL FROM ANIKA MORENO. Addendum entered by Jennifer Garcia RN 03/25/23 11:22: CM HAS ATTEMPTED TO CONTACT PT'S DTR/HCP LUX [phone] AT 0835 AND 4 ADDITIONAL TIMES, NO ANSWER AND MAILBOX FULL, CM WILL CONT TO ATTEMPT TO CONTACT LUX UNTIL SHE IS REACHED, PT'S NURSE DID REPORT DTR DID THIS THE LAST TIME SHE WAS ADMITTED AND EVENTUALLY DID COME TO PICK HER UP. Original Note: CM MET W/PT WHO IS NOW DECLINING STR, CM HAS NOTIFIED HOSPITALIST AND PT WILL D/C HOME W/[facility] FOR SN/PT, FAMILY VS CM TO SET UP TRANSPORT
[2023-03-25] MEDS: Metoprolol Tartrate 25 MG TABLET PO ×2 (09:16→21:51)
[2023-03-25] MEDS: Sertraline HCL 25 MG TABLET PO (09:16)
[2023-03-25] MEDS: amLODIPine Besylate 5 MG TABLET PO (09:16)
[2023-03-25] MEDS: predniSONE 20 MG TABLET PO (09:16)
[2023-03-25] MEDS: Aspirin Enteric Coated 81 MG TABLET.DR PO (09:16)
--- NOTE | 2023-03-25 11:38 | MHC.CLN ---
F/U PO INTAKE 75% X 4 MEALS DIET RX: REGULAR-APPROPRIATE PT RECEIVING ENSURE BID TO INCREASE KCALS PROVIDES 700KCALS, 40G PROTEIN IN ADDITION, GELATEIN BID ON MEAL TRAYS TO PROMOTE WOUND HEALING CONTINUE TO MONITOR PO INTAKE CLOSELY
[2023-03-25] MEDS: Albuterol/Iprat 2.5/0.5MG 3 ML AMPUL.NEB INHALE ×3 (11:39→19:47)
--- NOTE | 2023-03-25 13:39 | P.PNIM_ITS ---
Subjective Subjective Date of Service: 03/26/23 Interval History: COPD exacerbation Review of Systems Patient seems to be improved, now seems to be at baseline.? Physical Exam Vital Signs: Vital Signs: Last Vital Signs Temp 97.0 F 03/25/23 11:57 Pulse 85 03/25/23 11:57 Resp 20 03/25/23 11:57 BP 139/63 03/25/23 11:57 Pulse Ox 97 03/25/23 11:57 O2 Del Method Nasal Cannula 03/25/23 11:57 O2 Flow Rate 3 03/25/23 11:57 FiO2 40 03/17/23 06:00 Oxygen Flow Rate 5 03/17/23 01:46 BMI result Body Mass Index 15.8 General: AO X 3, no acute distress Resp:? CTA bilateral CVS: S1,S2,RRR GI: +BS, NT, no distention Skin: No rash Neuro:? right remiparesis Psych: appropriate affect Objective Data Active Medications Acetaminophen (Acetaminophen 325 Mg Tablet) 650 mg PO Q8H PRN PRN Reason: Pain, Mild (Pain Scale 1-3) Last Admin: 03/24/23 20:46 Dose: 650 mg Documented By: NABEEL Albuterol/Ipratropium (Albuterol/Iprat 2.5/0.5mg 3 Ml Ampul.Neb) 3 ml INHALE RQ4H WHILE AWAKE [facility] Last Admin: 03/25/23 11:39 Dose: 3 ml Documented By: TAISHA Amlodipine Besylate (Amlodipine Besylate 5 Mg Tablet) 5 mg PO DAILY [facility]; Protocol Last Admin: 03/25/23 09:16 Dose: 5 mg Documented By: MARY ANNE Aspirin (Aspirin Enteric Coated 81 Mg Tablet.) 81 mg PO DAILY [facility] Last Admin: 03/25/23 09:16 Dose: 81 mg Documented By: MARY ANNE Atorvastatin Calcium (Atorvastatin Calcium 40 Mg Tablet) 40 mg PO BEDTIME [facility] Last Admin: 03/24/23 20:46 Dose: 40 mg Documented By: NABEEL Heparin Sodium (Porcine) (Heparin Sodium,Porcine 5,000 Unit/Ml Vial) 5,000 unit SUBCUT Q8H [facility] Last Admin: 03/25/23 05:37 Dose: 5,000 unit Documented By: NABEEL Metoprolol Tartrate (Metoprolol Tartrate 25 Mg Tablet) 25 mg PO BID [facility]; Protocol Last Admin: 03/25/23 09:16 Dose: 25 mg Documented By: MARY ANNE Mirtazapine (Mirtazapine 30 Mg Tablet) 30 mg PO BEDTIME [facility] Last Admin: 03/24/23 20:46 Dose: 30 mg Documented By: NABEEL Omeprazole (Omeprazole 20 Mg Capsule.) 20 mg PO ONCE [facility] Polyethylene Glycol (Polyethylene Glycol 3350 17 Gm Powd.Pack) 17 gm PO DAILY PRN PRN Reason: Constipation Last Admin: 03/21/23 12:19 Dose: 17 gm Documented By: KAYLA Prednisone (Prednisone 20 Mg Tablet) 20 mg PO DAILY [facility] Last Admin: 03/25/23 09:16 Dose: 20 mg Documented By: MARY ANNE Sertraline HCl (Sertraline Hcl 25 Mg Tablet) 25 mg PO DAILY [facility] Last Admin: 03/25/23 09:16 Dose: 25 mg Documented By: MARY ANNE Labs 03/22/23 09:55 03/22/23 09:55 Assessment and Plan (1) Acute and chronic respiratory failure with hypercapnia: Status: Acute (2) Acute exacerbation of COPD with asthma: Status: Acute Assessment and Plan: 57-year-old lady with underlying substance abuse, carotid artery stenosis status post CVA with residual right-sided hemiparesis, COPD with CO2 retention and chronic hypoxia on 2 L of oxygen at home admitted on 03/17/2023 to the ICU due to severe hypercapnia and use recue bipap. Acute on chronic respiratory failure, hypercapnia likele from copd exacerbation, she required bipapd in ICU, use bipap at night, goal of O2 87 to 93%, continue bronchodilators and ? Prednisone for 3 more days moderate protein calory malnutrion--ensure HTN--resume Norvasc and Metoprolol HLD--statin Mood desorder--Sertraline and remron gerd PPI constipatation--miralax, enemia, colace Heparin for DVT prophylaxix need for inaptient acute respiratory failure needing rescue biPAP dispo: awaiting rehab bed. Time Spent With Patient Time: Total time managing care of this patient today ____ minutes. Quality Stroke Does the patient have a stroke diagnosis?: No VTE Prior VTE?: No VTE Risk Level:: Medical - moderate - high VTE Device Contraindication: Treatment Not Indicated VTE Drug Contraindication: N/A - Med Ordered
[2023-03-25] MEDS: Atorvastatin Calcium 40 MG TABLET PO (21:51)
[2023-03-25] MEDS: Mirtazapine 30 MG TABLET PO (21:51)
[2023-03-25] MEDS: Acetaminophen 325 MG TABLET 650 MG PO (21:58)
[2023-03-26] VITALS (8 sets, daily range): BP systolic 119–158; BP diastolic 59–67; PULSE 72–110; RESP 16–20; TEMP 36.1–37.1; O2SAT 91–100
[2023-03-26] MEDS: Heparin Sodium,Porcine 5,000 UNIT/ML VIAL 5000 UNIT SUBCUT ×3 (06:01→23:59)
[2023-03-26] MEDS: Acetaminophen 325 MG TABLET 650 MG PO (06:04)
[2023-03-26] MEDS: Metoprolol Tartrate 25 MG TABLET PO ×2 (08:23→20:05)
[2023-03-26] MEDS: predniSONE 20 MG TABLET PO (08:23)
[2023-03-26] MEDS: Sertraline HCL 25 MG TABLET PO (08:23)
[2023-03-26] MEDS: Aspirin Enteric Coated 81 MG TABLET.DR PO (08:23)
[2023-03-26] MEDS: amLODIPine Besylate 5 MG TABLET PO (08:28)
--- NOTE | 2023-03-26 10:34 | MHC.CM.PN ---
Per MD, Patient is medically cleared for dc to home today. Patient lives with her Daughter/Alternate HCP/LANDSCAPE FOREMAN/Pina who has not been reachable by phone to come to get her Mom and to that she will continue to be her LANDSCAPE FOREMAN/Caregiver. LAVELLE has called Pina @ [phone] but the call goes to voice mail and the message indicates that the mail box is full. CM will continue to try to reach Pina.
[2023-03-26] MEDS: Albuterol/Iprat 2.5/0.5MG 3 ML AMPUL.NEB INHALE ×3 (11:40→19:54)
--- NOTE | 2023-03-26 12:46 | P.PNIM_ITS ---
Subjective Subjective Date of Service: 03/27/23 Interval History: COPD exacerbation Review of Systems Patient seems to be improved, now seems to be at baseline. Physical Exam Vital Signs: Vital Signs: Last Vital Signs Temp 97.0 F 03/26/23 11:41 Pulse 79 03/26/23 11:41 Resp 20 03/26/23 11:41 BP 119/59 L 03/26/23 11:41 Pulse Ox 95 03/26/23 11:41 O2 Del Method Nasal Cannula 03/26/23 11:41 O2 Flow Rate 3 03/26/23 11:41 FiO2 40 03/17/23 06:00 Oxygen Flow Rate 5 03/17/23 01:46 BMI result Body Mass Index 15.8 General: AO X 3, no acute distress Resp:? CTA bilateral CVS: S1,S2,RRR GI: +BS, NT, no distention Skin: No rash Neuro:? right remiparesis Psych: appropriate affect Objective Data Active Medications Acetaminophen (Acetaminophen 325 Mg Tablet) 650 mg PO Q8H PRN PRN Reason: Pain, Mild (Pain Scale 1-3) Last Admin: 03/26/23 06:04 Dose: 650 mg Documented By: HEBRE Albuterol/Ipratropium (Albuterol/Iprat 2.5/0.5mg 3 Ml Ampul.Neb) 3 ml INHALE RQ4H WHILE AWAKE [facility] Last Admin: 03/26/23 11:40 Dose: 3 ml Documented By: GAVIN Amlodipine Besylate (Amlodipine Besylate 5 Mg Tablet) 5 mg PO DAILY [facility]; Protocol Last Admin: 03/26/23 08:28 Dose: 5 mg Documented By: NABILA Aspirin (Aspirin Enteric Coated 81 Mg Tablet.) 81 mg PO DAILY [facility] Last Admin: 03/26/23 08:23 Dose: 81 mg Documented By: NABILA Atorvastatin Calcium (Atorvastatin Calcium 40 Mg Tablet) 40 mg PO BEDTIME [facility] Last Admin: 03/25/23 21:51 Dose: 40 mg Documented By: HEBER Heparin Sodium (Porcine) (Heparin Sodium,Porcine 5,000 Unit/Ml Vial) 5,000 unit SUBCUT Q8H [facility] Last Admin: 03/26/23 06:01 Dose: 5,000 unit Documented By: HEBER Metoprolol Tartrate (Metoprolol Tartrate 25 Mg Tablet) 25 mg PO BID [facility]; Protocol Last Admin: 03/26/23 08:23 Dose: 25 mg Documented By: NABILA Mirtazapine (Mirtazapine 30 Mg Tablet) 30 mg PO BEDTIME [facility] Last Admin: 03/25/23 21:51 Dose: 30 mg Documented By: HEBER Omeprazole (Omeprazole 20 Mg Capsule.) 20 mg PO ONCE [facility] Polyethylene Glycol (Polyethylene Glycol 3350 17 Gm Powd.Pack) 17 gm PO DAILY PRN PRN Reason: Constipation Last Admin: 03/21/23 12:19 Dose: 17 gm Documented By: KAYLA Prednisone (Prednisone 20 Mg Tablet) 20 mg PO DAILY [facility] Last Admin: 03/26/23 08:23 Dose: 20 mg Documented By: NABILA Sertraline HCl (Sertraline Hcl 25 Mg Tablet) 25 mg PO DAILY [facility] Last Admin: 03/26/23 08:23 Dose: 25 mg Documented By: NABILA Labs 03/22/23 09:55 03/22/23 09:55 Assessment and Plan (1) Acute and chronic respiratory failure with hypercapnia: Status: Acute (2) Acute exacerbation of COPD with asthma: Status: Acute Assessment and Plan: 57-year-old lady with underlying substance abuse, carotid artery stenosis status post CVA with residual right-sided hemiparesis, COPD with CO2 retention and chronic hypoxia on 2 L of oxygen at home admitted on 03/17/2023 to the ICU due to severe hypercapnia and use recue bipap. Acute on chronic respiratory failure, hypercapnia likele from copd exacerbation, she required bipapd in ICU, use bipap at night, goal of O2 87 to 93%, continue bronchodilators and ? Prednisone for 3 more days moderate protein calory malnutrion--ensure HTN--resume Norvasc and Metoprolol HLD--statin Mood desorder--Sertraline and remron gerd PPI constipatation--miralax, enemia, colace Heparin for DVT prophylaxix need for inaptient acute respiratory failure needing rescue biPAP dispo: awaiting safe discharge home ,daughter is not reachable since yesterday Time Spent With Patient Time: Total time managing care of this patient today ____ minutes. Quality Stroke Does the patient have a stroke diagnosis?: No VTE Prior VTE?: No VTE Risk Level:: Medical - moderate - high VTE Device Contraindication: Treatment Not Indicated VTE Drug Contraindication: N/A - Med Ordered
[2023-03-26] MEDS: Mirtazapine 30 MG TABLET PO (20:05)
[2023-03-26] MEDS: Atorvastatin Calcium 40 MG TABLET PO (20:06)
[2023-03-27] VITALS (9 sets, daily range): BP systolic 122–140; BP diastolic 53–67; PULSE 84–98; RESP 16–20; TEMP 36–36.7; O2SAT 92–97; BMI 15.8
[2023-03-27] MEDS: Heparin Sodium,Porcine 5,000 UNIT/ML VIAL 5000 UNIT SUBCUT ×2 (06:30→15:47)
--- NOTE | 2023-03-27 09:39 | MHC.CM.PN ---
CM attempted to call Patient's Daughter/Pina @ [phone] but the mailbox continues to be full and there is no opportunity to leave a message. Per MD's request, LAVELLE asked [facility] if the auth from [facility] that they obtained on 03/24/2023 was still active, but unfortunately it is not and new auth would need to be attempted on Tuesday03/28/2023. CM will follow.
--- NOTE | 2023-03-27 09:43 | P.PNIM_ITS ---
Subjective Subjective Date of Service: 03/28/23 Interval History: COPD exacerbation Review of Systems improved, no new events Physical Exam Vital Signs: Vital Signs: Last Vital Signs Temp 96.8 F 03/27/23 08:00 Pulse 85 03/27/23 08:00 Resp 20 03/27/23 08:00 BP 131/58 L 03/27/23 08:00 Pulse Ox 97 03/27/23 08:00 O2 Del Method Nasal Cannula 03/27/23 08:00 O2 Flow Rate 3 03/27/23 08:00 FiO2 40 03/17/23 06:00 Oxygen Flow Rate 5 03/17/23 01:46 BMI result Body Mass Index 15.8 General: AO X 3, no acute distress Resp:? CTA bilateral CVS: S1,S2,RRR GI: +BS, NT, no distention Skin: No rash Neuro:? right remiparesis Psych: appropriate affect Objective Data Active Medications Acetaminophen (Acetaminophen 325 Mg Tablet) 650 mg PO Q8H PRN PRN Reason: Pain, Mild (Pain Scale 1-3) Last Admin: 03/26/23 06:04 Dose: 650 mg Documented By: HEBER Albuterol/Ipratropium (Albuterol/Iprat 2.5/0.5mg 3 Ml Ampul.Neb) 3 ml INHALE RQ4H WHILE AWAKE [facility] Last Admin: 03/27/23 07:40 Dose: Not Given Documented By: GAVIN Non-Admin Reason: Patient Refused Amlodipine Besylate (Amlodipine Besylate 5 Mg Tablet) 5 mg PO DAILY [facility]; Protocol Last Admin: 03/26/23 08:28 Dose: 5 mg Documented By: NABILA Aspirin (Aspirin Enteric Coated 81 Mg Tablet.) 81 mg PO DAILY [facility] Last Admin: 03/26/23 08:23 Dose: 81 mg Documented By: NABILA Atorvastatin Calcium (Atorvastatin Calcium 40 Mg Tablet) 40 mg PO BEDTIME [facility] Last Admin: 03/26/23 20:06 Dose: 40 mg Documented By: FREDRICK Heparin Sodium (Porcine) (Heparin Sodium,Porcine 5,000 Unit/Ml Vial) 5,000 unit SUBCUT Q8H [facility] Last Admin: 03/27/23 06:30 Dose: 5,000 unit Documented By: FREDRICK Metoprolol Tartrate (Metoprolol Tartrate 25 Mg Tablet) 25 mg PO BID [facility]; Protocol Last Admin: 03/26/23 20:05 Dose: 25 mg Documented By: FREDRICK Mirtazapine (Mirtazapine 30 Mg Tablet) 30 mg PO BEDTIME [facility] Last Admin: 03/26/23 20:05 Dose: 30 mg Documented By: FREDRICK Omeprazole (Omeprazole 20 Mg Capsule.) 20 mg PO ONCE [facility] Polyethylene Glycol (Polyethylene Glycol 3350 17 Gm Powd.Pack) 17 gm PO DAILY PRN PRN Reason: Constipation Last Admin: 03/21/23 12:19 Dose: 17 gm Documented By: KAYLA Prednisone (Prednisone 20 Mg Tablet) 20 mg PO DAILY [facility] Last Admin: 03/26/23 08:23 Dose: 20 mg Documented By: NABILA Sertraline HCl (Sertraline Hcl 25 Mg Tablet) 25 mg PO DAILY [facility] Last Admin: 03/26/23 08:23 Dose: 25 mg Documented By: NABILA Labs 03/22/23 09:55 03/22/23 09:55 Assessment and Plan (1) Acute and chronic respiratory failure with hypercapnia: Status: Acute (2) Acute exacerbation of COPD with asthma: Status: Acute Assessment and Plan: 57-year-old lady with underlying substance abuse, carotid artery stenosis status post CVA with residual right-sided hemiparesis, COPD with CO2 retention and chronic hypoxia on 2 L of oxygen at home admitted on 03/17/2023 to the ICU due to severe hypercapnia and use recue bipap. Acute on chronic respiratory failure, hypercapnia likele from copd exacerbation, she required bipapd in ICU, use bipap at night, goal of O2 87 to 93%, continue bronchodilators and ? Prednisone for 3 more days moderate protein calory malnutrion--ensure HTN--resume Norvasc and Metoprolol HLD--statin Mood desorder--Sertraline and remron gerd PPI constipatation--miralax, enemia, colace Heparin for DVT prophylaxix need for inaptient acute respiratory failure needing rescue biPAP dispo: awaiting safe discharge home ,daughter is not reachable since 03/25 Time Spent With Patient Time: Total time managing care of this patient today ____ minutes. Quality Stroke Does the patient have a stroke diagnosis?: No VTE Prior VTE?: No VTE Risk Level:: Medical - moderate - high VTE Device Contraindication: Treatment Not Indicated VTE Drug Contraindication: N/A - Med Ordered
[2023-03-27] MEDS: amLODIPine Besylate 5 MG TABLET PO (10:36)
[2023-03-27] MEDS: Aspirin Enteric Coated 81 MG TABLET.DR PO (10:36)
[2023-03-27] MEDS: Metoprolol Tartrate 25 MG TABLET PO ×2 (10:36→20:36)
[2023-03-27] MEDS: Sertraline HCL 25 MG TABLET PO (10:36)
[2023-03-27] MEDS: predniSONE 20 MG TABLET PO (10:37)
[2023-03-27] MEDS: Albuterol/Iprat 2.5/0.5MG 3 ML AMPUL.NEB INHALE ×3 (12:10→21:04)
[2023-03-27] MEDS: Atorvastatin Calcium 40 MG TABLET PO (20:36)
[2023-03-27] MEDS: Mirtazapine 30 MG TABLET PO (20:36)
[2023-03-28] VITALS: BP 137/62; PULSE 82; RESP 18; TEMP 36.6; O2SAT 96
[2023-03-28 03:33] VITALS: BP 156/67; PULSE 72; RESP 18; TEMP 36.1; O2SAT 100
[2023-03-28 05:41] VITALS: BMI 14.6
[2023-03-28] MEDS: Heparin Sodium,Porcine 5,000 UNIT/ML VIAL 5000 UNIT SUBCUT (05:58)
[2023-03-28 07:25] VITALS: BP 149/67; PULSE 76; RESP 20; TEMP 36.5; O2SAT 100
[2023-03-28 08:02] VITALS: PULSE 89; RESP 18; O2SAT 94
[2023-03-28] MEDS: Albuterol/Iprat 2.5/0.5MG 3 ML AMPUL.NEB INHALE ×2 (08:02→11:44)
[2023-03-28] MEDS: Sertraline HCL 25 MG TABLET PO (08:30)
[2023-03-28] MEDS: Metoprolol Tartrate 25 MG TABLET PO (08:30)
[2023-03-28] MEDS: amLODIPine Besylate 5 MG TABLET PO (08:30)
[2023-03-28] MEDS: Aspirin Enteric Coated 81 MG TABLET.DR PO (08:30)
[2023-03-28] MEDS: predniSONE 20 MG TABLET PO (08:31)
[2023-03-28] MEDS: Acetaminophen 325 MG TABLET 650 MG PO (08:32)
--- NOTE | 2023-03-28 08:56 | MHC.CM.PN ---
Addendum entered by Jennifer Garcia RN 03/28/23 11:39: CM MET W/PT WHO CLAIMS SHE SPOKE W/HER DTR YESTERDAY EVENING AND DTR WANTED TO PICK HER UP THEN HOWEVER STAFF SAID NO, PT REPORTS THAT DTR WILL PICK HER UP TODAY HOWEVER SHE HAS NO IDEA WHEN AND DTR CONT'S TO NOT ANSWER THE PHONE, AND CM HAS ATTEMPTED AT LEAST 4 TIMES SINCE APPROX 099, PT ASSURES CM DTR IS HOME AND JUST SLEEPING, CM CONTACTED COMPLEX MAINTENANCE STAFF WHO WILL UNLOCK DOOR SO PT CAN BE TRANSPORTED HOME. Original Note: CM MET W/HOSPITALIST TO DISCUSS CASE PT'S DTR HAS YET TO ANSWER PHONE OR CONTACT HOSPITAL ABOUT PICKING UP PT, PER HOSPITALIST PT REPORTED THIS AM THAT HER DTR LUX WILL BE HERE TO HAM STRIPPER PT TODAY, CM WILL MEET W/PT TO ATTEMPT TO CONFIRM, CM DISCUSSED W/CM MOVIE MACHINE OPERATOR WHO WILL DISCUSS W/CM DIRECTOR PT HAS BEEN READY FOR D/C SINCE Tuesday03/24/23 AND ELDER AT RISK TO BE FILED W/[facility].
[2023-03-28 11:03] VITALS: BP 133/63; PULSE 85; RESP 20; TEMP 36.7; O2SAT 95
--- NOTE | 2023-03-28 11:35 | MHC.CLN ---
F/U PO INTAKE REMAINS GOOD 75-100% DIET RX: REGULAR-APPROPRIATE PT RECEIVING ENSURE BID TO INCREASE KCALS PROVIDES 700KCALS, 40G PROTEIN IN ADDITION, GELATEIN BID ON MEAL TRAYS TO PROMOTE WOUND HEALING CONTINUE TO MONITOR PO INTAKE AND WEIGHT CLOSELY
[2023-03-28 11:44] VITALS: PULSE 97; RESP 18; O2SAT 93
--- NOTE | 2023-03-28 12:31 | MHC.CM.PN ---
CM CONTACTED PT'S DTR LUX AT [phone], LUX REPORTED THAT PHONE DOES NOT GET GOOD SERVICE AND TO USE [phone] IN THE FUTURE, LUX IS AWARE THAT WE HAVE BEEN TRYING TO GET A HOLD OF HER SINCE LAST WEEK, LUX AGREEABLE TO 2PM D/C AND WILL BE AT HOME WAITING FOR PT, PER LUX PT IS DISABLED PER STATE OF MASS, PLAN REMAINS HOME W/FELIX DONOVAN FOR SN/HOME PT, [facility] FOR TRANSPORT
== END 2023-03-28 15:18 | disposition home health service (06) | DRG 140 ==
LOC: HO.ED 02:36 → HO.EDOVER 06:48 → HO.ICU 07:10 → HO.IMC 13:04
PROVIDERS: Admitting Provider Internal Medicine Pulmonary Disease; Emergency Provider Internal Medicine; PCP Internal Medicine; Visit Provider Internal Medicine
DX: J43.9 Emphysema, unspecified (principal); J96.22 Acute and chronic respiratory failure with hypercapnia; G93.41 Metabolic encephalopathy; I50.43 Acute on chronic combined systolic (congestive) and diastolic (congestive) heart failure; E44.0 Moderate protein-calorie malnutrition; J96.11 Chronic respiratory failure with hypoxia; F14.10 Cocaine abuse, uncomplicated; I69.351 Hemiplegia and hemiparesis following cerebral infarction affecting right dominant side; F33.9 Major depressive disorder, recurrent, unspecified; I11.0 Hypertensive heart disease with heart failure; K21.9 Gastro-esophageal reflux disease without esophagitis; K59.00 Constipation, unspecified; D64.9 Anemia, unspecified; Z68.1 Body mass index [BMI] 19.9 or less, adult; F41.1 Generalized anxiety disorder; Z99.81 Dependence on supplemental oxygen; Z20.822 Contact with and (suspected) exposure to COVID-19; Z79.82 Long term (current) use of aspirin; Z79.899 Other long term (current) drug therapy
CPT/HCPCS: 36415; 36600; 70450; 71045; 80048; 80053; 80307; 81001; 82040; 82803; 82947; 83605; 83735; 84100; 84484; 85014; 85018; 85025; 85610; 87040; 87635; 93005; 94640; 94660; 97110; 97116; 97162; 99285; C1758; J1643; J2060

== ENCOUNTER → 2023-03-17 06:45 | Outpatient (BNV) | payer OTHER, SELFPAY | PROVIDERS: Admitting Provider Internal Medicine Pulmonary Disease; Emergency Provider Internal Medicine; Visit Provider Internal Medicine | DX: J96.22 Acute and chronic respiratory failure with hypercapnia (principal) | CPT/HCPCS: 99231; 99232; 99239; 99499 ==

== ENCOUNTER 2023-05-17 22:25 | Inpatient (IN) | payer OTHER, SELFPAY ==
--- NOTE | ~2023-05-17 | XR_ITS ---
EXAMINATION: XR CHEST CLINICAL INFORMATION: Weakness. Cerebrovascular accident. COMPARISON: 03/17/2023 TECHNIQUE: Frontal view of the chest was obtained. FINDINGS: The cardiomediastinal silhouette is normal. There is no focal lung consolidation or pleural effusion. The bony structures are osteopenic. The soft tissues are unremarkable. XR/XR chest 1V IMPRESSION: No active cardiopulmonary disease.
--- NOTE | ~2023-05-17 | CT_ITS ---
EXAMINATION: CT HEAD WITHOUT CONTRAST (STROKE PROTOCOL) CLINICAL INFORMATION: Stroke protocol. Weakness. COMPARISON: None available. TECHNIQUE: Contiguous axial imaging was performed from the skull base to vertex without intravenous administration of contrast. This CT examination was performed using dose optimization techniques as appropriate, variously including the following: *Automated exposure control. *Adjustment of mA and/or kV according to patient size (this includes techniques or standardized protocols for targeted exams where dose is matched to indication/reason for exam; i.e. extremities or head). *Use of iterative reconstruction technique. DLP: 610 mGy-cm FINDINGS: There is left frontoparietal encephalomalacia with mild ex vacuo dilatation of the left lateral ventricle. The right lateral ventricle, third and fourth ventricles are normally outlined. The cortical sulci are normally outlined. There is no acute territorial defect, hemorrhage or midline shift. The extra-axial spaces are unremarkable. Calvarium: Intact. Maxillofacial Sinuses and Mastoids: Clear as visualized. CT/CT head for stroke IMPRESSION: Old left frontoparietal infarct. No acute intracranial abnormality. This critical result was discussed with Dr. Medrano at 11:26 PM hours on 05/17/2023. It was ascertained that the content and urgency of the report was understood at the time of direct communication.
[2023-05-17] MEDS: LORazepam 2 MG/ML VIAL IVPUSH (22:28)
--- NOTE | 2023-05-17 22:28 | ECG_ITS ---
Test Reason : REPEAT Blood Pressure : / mmHG Vent. Rate : 092 BPM Atrial Rate : 092 BPM P-R Int : 140 ms QRS Dur : 086 ms QT Int : 364 ms P-R-T Axes : 078 090 083 degrees QTc Int : 450 ms Normal sinus rhythm Rightward axis Minimal voltage criteria for LVH, may be normal variant ( Samuel product ) Borderline ECG When compared with ECG of 17-MAR-2023 02:01, Nonspecific T wave abnormality no longer evident in Anterior leads Referred By: Diamante Medrano Electronically Signed By:DONNY TREVIZO
[2023-05-17 22:29] VITALS: BP 206/76; PULSE 100; O2SAT 93
[2023-05-17 22:37] VITALS: BMI 16.4
[2023-05-17 22:40] VITALS: BP 149/59; PULSE 107; RESP 20; O2SAT 88
[2023-05-17 22:47] VITALS: TEMP 37.3
--- NOTE | 2023-05-17 22:47 | ED_ITS ---
HPI - Altered Mental Status General Chief Complaint: Altered Mental Status Stated Complaint: stroke Time Seen by Provider: 05/17/23 22:27 Source: family (CLINICAL TRIALS SYSTEMS ADMINISTRATOR) and EMS Mode of arrival: EMS Limitations: physical limitation History of Present Illness HPI narrative: 57-year-old female with underlying substance abuse, carotid artery stenosis status post CVA with residual right-sided veronique paresis, and seizure, COPD with CO2 retention and chronic hypoxia on 2 L of supplemental oxygen at home, CLINICAL TRIALS SYSTEMS ADMINISTRATOR found patient around 09:00 o'clock not responding, with change of her mental status, patient had right gaze and was not coherent, patient normally is bed ridden with limited ambulation with a cane at home, has 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 EMS was called and patient was transported to the hospital on arrival patient found to be with a right gaze and right-sided seizure not responding report regarding examiner, non historian patient was given Ativan. Related Data Home Medications Medication Instructions Recorded Confirmed aspirin 81 mg tablet,delayed 81 mg PO DAILY 10/21/22 03/17/23 release (Adult Low Dose Aspirin) Previous Rx's Medication Instructions Recorded albuterol sulfate 90 mcg/actuation 2 puff PO Q6H PRN bronchospasm 30 10/20/22 aerosol inhaler days #6.7 grams amlodipine 5 mg tablet 5 mg PO DAILY 90 days #90 tabs 10/20/22 metoprolol tartrate 25 mg tablet 25 mg PO BID 90 days #180 tabs 10/20/22 omeprazole 20 mg capsule,delayed 20 mg PO ONCE 90 days #90 caps 10/20/22 release sertraline 25 mg tablet 25 mg PO DAILY 90 days #90 tabs 10/20/22 atorvastatin 40 mg tablet 40 mg PO BEDTIME 90 days #90 tabs 12/21/22 ipratropium 0.5 mg-albuterol 3 mg 1 ml inhalation TID PRN shortness 12/21/22 (2.5 mg base)/3 mL nebulization of breath 30 days #180 mL soln mirtazapine 30 mg tablet 30 mg PO BEDTIME 90 days #90 tabs 01/26/23 prednisone 20 mg tablet 20 mg PO DAILY #2 tabs 03/21/23 Allergies Allergy/AdvReac Type Severity Reaction Status Date / Time crab Allergy Unknown Hives Verified 03/17/23 01:46 penicillin V Allergy Unknown hives Verified 03/17/23 01:46 Penicillins [PENICILLINS] Allergy Unknown hives Verified 03/17/23 01:46 SEASONAL ALLERGIES Allergy Mild RUNNY NOSE Uncoded 03/17/23 01:46 Review of Systems Review of Systems: All other systems are reviewed and are negative Constitutional: Reports as per HPI and Reports no additional constitutional complaints Eyes: Reports as per HPI and Reports no additional eye complaints Reports system reviewed and no additional complaints, except as documented Cardiovascular: Reports as per HPI and Reports no additional cardiovascular complaints Respiratory: Reports as per HPI and Reports no additional respiratory complaints Gastrointestinal: Reports as per HPI and Reports no additional gastrointestinal complaints Genitourinary: Reports no additional female genitourinary complaints Musculoskeletal: Reports no additional musculoskeletal complaints Skin/Breast: Reports system reviewed and no additional complaints, except as docu Psychiatric: Reports no additional psychiatric complaints Endocrine: Reports no additional endocrine complaints Hematologic/Lymphatic: Reports no additional hematologic/lymphatic complaints Allergic/Immunologic: Reports no additional allergic/immunologic complaints Reports system reviewed and no additional complaints, except as documented and Reports Abnormal speech present [facility] Past Medical History Medical History Acute CHF (congestive heart failure) Anxiety, generalized Asthma, moderate Asymptomatic carotid artery stenosis with infarction Chronic GERD Cocaine abuse Cocaine abuse COPD (chronic obstructive pulmonary disease) Environmental allergies Hemiparesis affecting right side as late effect of cerebrovascular accident History of acute respiratory distress syndrome (ARDS) (~08/2021) History of drug abuse History of multiple cerebrovascular accidents (CVAs) History of non-ST elevation myocardial infarction (NSTEMI) (~11/2021) Hypercapnic respiratory failure, chronic Lipid disorder Major depression, recurrent Nicotine dependence, cigarettes, uncomplicated Normocytic anemia Oxygen dependent Respiratory failure with hypoxia Seizure (~11/2021) Takotsubo cardiomyopathy Surgical History History of left-sided carotid endarterectomy (~09/2012) History of tonsillectomy and adenoidectomy Family History Family History Father Substance abuse Mother Brain cancer Maternal Grandfather History of heart attack Maternal Grandmother History of heart attack Paternal Grandfather No problems noted. Paternal Grandmother No problems noted. Brother No problems noted. Brother No problems noted. Son No problems noted. Daughter No problems noted. Other Mental health disorder Social History Social History Household Members: None Housing: Apartment Do you presently have visiting nurse or other home services: Yes ( [facility] ) Unable to assess alcohol history related to: Refusing to respond Alcohol intake: unknown Patient Tobacco Use Status: Current everyday Tobacco user Tobacco use type: Cigarette Cigarettes Per Day: 2 Years Smoked: 35 years e-Cigarette/Vaping Use: Never Used Second Hand Smoke Exposure: No Advance Directives Date on File: 11/25/21 service: No Current occupational status: disabled Cognitive needs: No Hearing needs: No Vision needs: No Physical Exam ED Vital Signs: Vital Signs - 24 hr 05/17/23 22:40 05/17/23 22:47 Temperature 99.1 F Pulse Rate 107 H Respiratory Rate 20 Blood Pressure 149/59 H Pulse Oximetry 88 L Oxygen Delivery Method Nasal Cannula Oxygen Flow Rate 2 BMI result Body Mass Index 16.4 Vital signs have been reviewed as appeared to be correct. Blood pressure normal. Heart rate normal. Respiration rate normal. Temperature normal. Oxygen saturation normal. Appearance: Obtunded, incoherent, with a right gaze. Head: Normal external exam. Normocephalic. Atraumatic. No Hamm signs noted. No raccoon eyes noted Eyes: PERRLA. EOMI. Conjunctiva and sclera normal. Eyelids normal. ENT: TM's Normal. Pharynx normal. Uvula midline. Moist mucous membranes. No trismus noted. No drooling noted. No muffled voice noted. Neck: Normal inspection. Neck supple. FROM. No adenopathy. Thyroid Normal. No meningeal signs. No neck mass noted. CVS: Normal heart rate and rhythm. Heart sound normal. No murmurs noted. Pulses normal throughout. Respiratory: No respiratory distress. Painless inspiration. Breath sounds normal. No wheezes/rales/rhonchi noted. Chest nontender. No accessory muscle usage noted or decreased air movement noted. Abdomen: Soft and nontender. Bowel sounds normal in all 4 quadrants. No distention noted. No organomegaly noted. No visible injury noted. Back: No CVA tenderness. Full range of motion noted. Skin: Skin warm and dry. Normal skin color. Normal skin turgor. No rashes/lesions/lacerations noted. Extremities: No lower extremity edema. Extremities exhibit normal range of motion. Extremities nontender. Neuro: Oriented X 3. Cranial nerve exam: Right gaze, slurred speech, incoherent but regard examiner. Pre-existing spastic paralysis to the right upper extremity, and weakness to the right lower extremity Course Course Course Narrative: 22:30: had CT was reviewed by me with no acute intracranial pathology. 22:55: Case discussed with Dr. Gonzalez because the seizure and postictal status thrombolysis therapy is not indicated. 23:00: Repeat neuro exam patient with slurred speech, incoherent. Will admit/aspirin. Medications Administered Discontinued Medications Generic Name Dose Route Start Last Admin Trade Name Freq PRN Reason Stop Dose Admin Lorazepam 2 mg 05/17/23 22:28 05/17/23 22:28 Lorazepam 2 Mg/Ml Vial IVPUSH 05/17/23 22:29 2 mg ONCE ONE Administration Medical Decision Making Differential Diagnosis Differential Diagnoses: The differential diagnosis associated with the presentation includes (Seizure, status epilepticus, CVA, intracranial bleed, electrolyte abnormality, severe anemia.) Admission/Observation Consideration of admission/observation: Escalation of care including admission/observation considered Consult Healthcare Provider Management of the patient was discussed with: Hospitalist (Dr. Melgar) and Sandal Parts Assembler (Dr. Gonzalez) Lab Data MDM Lab Attestation statement: I reviewed the patient's lab results. 05/17/23 22:44 05/17/23 22:44 Labs: Lab Results 05/17/23 05/17/23 05/17/23 Range/Units 22:22 22:37 22:44 WBC 10.4 (4.8-10.8) X10*3/uL RBC 3.79 L D (4.20-5.50) X10*6/uL Hgb 10.6 L D (12.0-16.0) g/dl Hct 33.2 L (37.0-47.0) % MCV 87.6 (80.0-98.0) fL MCH 28.0 (27.0-33.0) pg MCHC 31.9 (31.0-35.0) g/dl RDW 12.2 (11.0-16.0) % Plt Count 237 (160-400) X10*3/uL MPV 10.2 (9.4-12.3) fL Immature Gran % (Auto) 0.4 (0.0-0.4) % Neut % (Auto) 70.7 (45-73) % Lymph % (Auto) 19.1 L (20-40) % [place] % (Auto) 8.1 (2-11) % Eos % (Auto) 1.5 (0-4) % Baso % (Auto) 0.2 (0-2) % Lymph # (Auto) 2.0 (1.2-4.9) X10*3/uL [place] # (Auto) 0.8 (0.1-1.2) X10*3/uL Eos # (Auto) 0.2 (0.0-0.4) X10*3/uL Baso # (Auto) 0.0 (0.0-0.2) X10*3/uL Abs Immat Gran (auto) 0.04 H (0.00-0.03) X10*3/uL Absolute Neuts (auto) 7.3 (2.0-8.3) x10*3/uL Absolute Nucleated RBC 0.000 (0.0-0.012) X10*3/uL Nucleated RBC % (auto) 0.0 (0.0-0.2) /100WBC PT (11.1-13.3) SEC Whole Blood PT 14.0 H (11.1-13.5) sec INR (0.9-1.1) Whole Blood INR 1.2 H (0.9-1.1) APTT (26.0-36.4) SEC Sodium (135-145) mmol/L Potassium (3.3-5.1) mmol/L Chloride (96-108) mmol/L Carbon Dioxide (22-29) mmol/L Anion Gap (12-20) BUN (9-16) mg/dL Creatinine (0.5-1.4) mg/dL Estim Creat Clear Calc Estimated GFR POC Glucose 127 H (60-115) mg/dL Random Glucose (60-115) mg/dL Calcium (8.4-10.2) mg/dL Ammonia (13-55) umol/L Total Creatine Kinase (26-140) U/L Troponin I High Sens (<3.5-17.0) ng/L 05/17/23 05/17/23 05/17/23 Range/Units 22:44 22:44 22:44 WBC (4.8-10.8) X10*3/uL RBC (4.20-5.50) X10*6/uL Hgb (12.0-16.0) g/dl Hct (37.0-47.0) % MCV (80.0-98.0) fL MCH (27.0-33.0) pg MCHC (31.0-35.0) g/dl RDW (11.0-16.0) % Plt Count (160-400) X10*3/uL MPV (9.4-12.3) fL Immature Gran % (Auto) (0.0-0.4) % Neut % (Auto) (45-73) % Lymph % (Auto) (20-40) % [place] % (Auto) (2-11) % Eos % (Auto) (0-4) % Baso % (Auto) (0-2) % Lymph # (Auto) (1.2-4.9) X10*3/uL [place] # (Auto) (0.1-1.2) X10*3/uL Eos # (Auto) (0.0-0.4) X10*3/uL Baso # (Auto) (0.0-0.2) X10*3/uL Abs Immat Gran (auto) (0.00-0.03) X10*3/uL Absolute Neuts (auto) (2.0-8.3) x10*3/uL Absolute Nucleated RBC (0.0-0.012) X10*3/uL Nucleated RBC % (auto) (0.0-0.2) /100WBC PT 13.0 (11.1-13.3) SEC Whole Blood PT (11.1-13.5) sec INR 1.1 (0.9-1.1) Whole Blood INR (0.9-1.1) APTT 35.3 (26.0-36.4) SEC Sodium 127 L (135-145) mmol/L Potassium 4.9 (3.3-5.1) mmol/L Chloride 84 L (96-108) mmol/L Carbon Dioxide 34 H (22-29) mmol/L Anion Gap 14 (12-20) BUN 9 (9-16) mg/dL Creatinine 0.69 (0.5-1.4) mg/dL Estim Creat Clear Calc 53.6 Estimated GFR > 60 POC Glucose (60-115) mg/dL Random Glucose 101 (60-115) mg/dL Calcium 9.7 (8.4-10.2) mg/dL Ammonia (13-55) umol/L Total Creatine Kinase 176 H (26-140) U/L Troponin I High Sens < 2.7 D (<3.5-17.0) ng/L 05/17/23 Range/Units 22:44 WBC (4.8-10.8) X10*3/uL RBC (4.20-5.50) X10*6/uL Hgb (12.0-16.0) g/dl Hct (37.0-47.0) % MCV (80.0-98.0) fL MCH (27.0-33.0) pg MCHC (31.0-35.0) g/dl RDW (11.0-16.0) % Plt Count (160-400) X10*3/uL MPV (9.4-12.3) fL Immature Gran % (Auto) (0.0-0.4) % Neut % (Auto) (45-73) % Lymph % (Auto) (20-40) % [place] % (Auto) (2-11) % Eos % (Auto) (0-4) % Baso % (Auto) (0-2) % Lymph # (Auto) (1.2-4.9) X10*3/uL [place] # (Auto) (0.1-1.2) X10*3/uL Eos # (Auto) (0.0-0.4) X10*3/uL Baso # (Auto) (0.0-0.2) X10*3/uL Abs Immat Gran (auto) (0.00-0.03) X10*3/uL Absolute Neuts (auto) (2.0-8.3) x10*3/uL Absolute Nucleated RBC (0.0-0.012) X10*3/uL Nucleated RBC % (auto) (0.0-0.2) /100WBC PT (11.1-13.3) SEC Whole Blood PT (11.1-13.5) sec INR (0.9-1.1) Whole Blood INR (0.9-1.1) APTT (26.0-36.4) SEC Sodium (135-145) mmol/L Potassium (3.3-5.1) mmol/L Chloride (96-108) mmol/L Carbon Dioxide (22-29) mmol/L Anion Gap (12-20) BUN (9-16) mg/dL Creatinine (0.5-1.4) mg/dL Estim Creat Clear Calc Estimated GFR POC Glucose (60-115) mg/dL Random Glucose (60-115) mg/dL Calcium (8.4-10.2) mg/dL Ammonia 38 (13-55) umol/L Total Creatine Kinase (26-140) U/L Troponin I High Sens (<3.5-17.0) ng/L Independent Interpretation I performed an independent interpretation of an: EKG (Sinus tachycardia of 105, right axis deviation, normal intervals, no ST-T changes.), Plain X-Ray (Chest: No acute intrathoracic pathology.) and CT Scan (Head: Old left frontoparietal infarction, no acute intracranial pathology.) Radiology Impression Discussion of test interpretation with radiology: I have reviewed the radiologist's reading. Independent Historian Clinical information obtained from an independent historian. History obtained from or confirmed by: Other (CLINICAL TRIALS SYSTEMS ADMINISTRATOR) Chronic Conditions Patient?s care impacted by: Other (Previous strokes) Critical Care Time Critical Care Time Critical Care Time: Yes Total Critical Care Time: 60 Attestation: I spent 60 minutes providing critical care service to the patient, this including time spent at the bedside to evaluate the patient, reassess the patient, monitoring vital signs, review labs, and radiographic studies, counseling the patient/family, discussing the case with consultants, disposition the patient. Discharge Plan Discharge Clinical Impression: Acute CVA (cerebrovascular accident), Seizure Patient Disposition: Admitted As Inpatient
[2023-05-17 22:48] LABS: Glucose, Whole Blood 127 mg/dL (60-115)
[2023-05-17 22:51] LABS: MANUAL DIFF FLAG NO
[2023-05-17 22:52] LABS: ~PT, ~INR - Anti Coag Clinic 1.2 (0.9-1.1)
[2023-05-17 22:53] LABS: Basophils Percent Auto 0.2 % (0-2); Eosinophils Absolute Auto 0.2 X10*3/uL (0.0-0.4); Eosinophils Percent Auto 1.5 % (0-4); Hematocrit 33.2 % (37.0-47.0); Hemoglobin 10.6 g/dl (12.0-16.0); Imm Gran Abs Auto 0.04 X10*3/uL (0.00-0.03); Imm Gran Pct Auto 0.4 % (0.0-0.4); Lymphocytes Percent Auto 19.1 % (20-40); Mean Corpuscular HGB Conc 31.9 g/dl (31.0-35.0); Mean Corpuscular Volume 87.6 fL (80.0-98.0); Mean Platelet Volume 10.2 fL (9.4-12.3); Monocytes Absolute Auto 0.8 X10*3/uL (0.1-1.2); Monocytes Percent Auto 8.1 % (2-11); Neutrophils Absolute Auto 7.3 x10*3/uL (2.0-8.3); Neutrophils Percent Auto 70.7 % (45-73); Platelet Count 237 X10*3/uL (160-400); Red Blood Count 3.79 X10*6/uL (4.20-5.50); Red Cell Distribution Width 12.2 % (11.0-16.0); White Blood Count 10.4 X10*3/uL (4.8-10.8)
[2023-05-17 22:58] LABS: INTERNATIONAL NORM RATIO 1.1 (0.9-1.1)
[2023-05-17 23:01] LABS: Partial Thromboplastin Time 35.3 SEC (26.0-36.4)
[2023-05-17 23:10] LABS: Anion Gap 14 (12-20); Blood Urea Nitrogen 9 mg/dL (9-16); Calcium 9.7 mg/dL (8.4-10.2); Carbon Dioxide 34 mmol/L (22-29); Chloride 84 mmol/L (96-108); Creatinine Clr Calc Pharmacy 53.6; Estimated Glomerular Filt Rate > 60; Glucose Random 101 mg/dL (60-115); Potassium 4.9 mmol/L (3.3-5.1); Sodium 127 mmol/L (135-145)
[2023-05-17 23:15] LABS: Stroke Lab Use COMPLETE
[2023-05-17 23:24] LABS: Troponin-I High Sensitivity < 2.7 ng/L (<3.5-17.0)
[2023-05-17 23:30] LABS: Ammonia 38 umol/L (13-55)
[2023-05-17 23:55] LABS: Lactic Acid 3.3 mmol/L (0.5-2.0)
[2023-05-18] VITALS (11 sets, daily range): BP systolic 109–145; BP diastolic 51–93; PULSE 75–97; RESP 16–20; TEMP 36.1–37.1; O2SAT 94–100
--- NOTE | 2023-05-18 01:06 | P.HPHOSP_ITS ---
History of Present Illness Date of Service: 05/17/23 Chief Complaint: Garbled speech 57-year-old female with past medical history of underlying substance abuse, carotid artery stenosis status post CVA with residual right-sided hemiparesis, CAD, major depression disorder,? takotsubo cardiomyopathy, seizures desorder, COPD /asthma on baseline 2-3 L of oxyge.?She was brought to the ED as stroke alert due to word finding diffuculty and garbled speech, Stroke work up with CT showed just old stroke. She had a witnessed tonic clonic seizure in the ED and given 2 mg of Ativan and very lethargic at time of my evluation. Case was discussed with with neurology with conclusion that she would have been a candidate for thrombolytic or further work up if her presentation was stroke. Review of Systems Review of Systems: Yes Unobtainable due to mental status [facility] Medical History Acute CHF (congestive heart failure) Anxiety, generalized Asthma, moderate Asymptomatic carotid artery stenosis with infarction Chronic GERD Cocaine abuse Cocaine abuse COPD (chronic obstructive pulmonary disease) Environmental allergies Hemiparesis affecting right side as late effect of cerebrovascular accident History of acute respiratory distress syndrome (ARDS) (~08/2021) History of drug abuse History of multiple cerebrovascular accidents (CVAs) History of non-ST elevation myocardial infarction (NSTEMI) (~11/2021) Hypercapnic respiratory failure, chronic Lipid disorder Major depression, recurrent Nicotine dependence, cigarettes, uncomplicated Normocytic anemia Oxygen dependent Respiratory failure with hypoxia Seizure (~11/2021) Takotsubo cardiomyopathy Family History Father Substance abuse Mother Brain cancer Maternal Grandfather History of heart attack Maternal Grandmother History of heart attack Paternal Grandfather No problems noted. Paternal Grandmother No problems noted. Brother No problems noted. Brother No problems noted. Son No problems noted. Daughter No problems noted. Other Mental health disorder Surgical History History of left-sided carotid endarterectomy (~09/2012) History of tonsillectomy and adenoidectomy Social History Household Members: None Housing: Apartment Do you presently have visiting nurse or other home services: Yes ( [employer] ) Unable to assess alcohol history related to: Refusing to respond Alcohol intake: unknown Patient Tobacco Use Status: Current everyday Tobacco user Tobacco use type: Cigarette Cigarettes Per Day: 2 Years Smoked: 35 years e-Cigarette/Vaping Use: Never Used Second Hand Smoke Exposure: No Advance Directives: Yes Advance Directives on File: Yes Advance Directives Date on File: 11/25/21 service: No Current occupational status: disabled Cognitive needs: No Hearing needs: No Vision needs: No Meds Allergies Allergy/AdvReac Type Severity Reaction Status Date / Time crab Allergy Unknown Hives Verified 03/17/23 01:46 penicillin V Allergy Unknown hives Verified 03/17/23 01:46 Penicillins [PENICILLINS] Allergy Unknown hives Verified 03/17/23 01:46 SEASONAL ALLERGIES Allergy Mild RUNNY NOSE Uncoded 03/17/23 01:46 Home Medications Medication Instructions Recorded Confirmed Last Taken Type aspirin 81 mg tablet,delayed 81 mg PO DAILY 10/21/22 03/17/23 Unknown History release (Adult Low Dose Aspirin) Physical Exam Vital Signs and Narrative: Vital Signs: Last Vital Signs Temp 99.1 F 05/17/23 22:47 Pulse 89 05/18/23 00:13 Resp 20 05/18/23 00:13 BP 135/63 05/18/23 00:13 Pulse Ox 97 05/18/23 00:13 O2 Del Method Nasal Cannula 05/18/23 00:13 O2 Flow Rate 2 05/17/23 22:40 BMI result Body Mass Index 16.4 Const: Other: General: somnolent but easily aroused Resp: CTA bilateral CVS: S1,S2,RRR GI: +BS, NT, no distention Skin: No rash Neuro: motor grossly intact Psych: appropriate affect Results Labs 05/17/23 22:44 05/17/23 22:44 Labs: Laboratory Results - last 24 hr 05/17/23 05/17/23 05/17/23 22:22 22:37 22:44 MCV 87.6 MCH 28.0 MCHC 31.9 RDW 12.2 Plt Count 237 MPV 10.2 Immature Gran % (Auto) 0.4 Neut % (Auto) 70.7 Lymph % (Auto) 19.1 L [place] % (Auto) 8.1 Eos % (Auto) 1.5 Baso % (Auto) 0.2 Lymph # (Auto) 2.0 [place] # (Auto) 0.8 Eos # (Auto) 0.2 Baso # (Auto) 0.0 Abs Immat Gran (auto) 0.04 H Absolute Neuts (auto) 7.3 Absolute Nucleated RBC 0.000 Nucleated RBC % (auto) 0.0 PT Whole Blood PT 14.0 H INR Whole Blood INR 1.2 H APTT Anion Gap Estim Creat Clear Calc Estimated GFR POC Glucose 127 H Random Glucose Lactic Acid Calcium Ammonia Total Creatine Kinase 05/17/23 05/17/23 05/17/23 22:44 22:44 22:44 MCV MCH MCHC RDW Plt Count MPV Immature Gran % (Auto) Neut % (Auto) Lymph % (Auto) [place] % (Auto) Eos % (Auto) Baso % (Auto) Lymph # (Auto) [place] # (Auto) Eos # (Auto) Baso # (Auto) Abs Immat Gran (auto) Absolute Neuts (auto) Absolute Nucleated RBC Nucleated RBC % (auto) PT 13.0 Whole Blood PT INR 1.1 Whole Blood INR APTT 35.3 Anion Gap 14 Estim Creat Clear Calc 53.6 Estimated GFR > 60 POC Glucose Random Glucose 101 Lactic Acid 3.3 H* Calcium 9.7 Ammonia Total Creatine Kinase 176 H 05/17/23 22:44 MCV MCH MCHC RDW Plt Count MPV Immature Gran % (Auto) Neut % (Auto) Lymph % (Auto) [place] % (Auto) Eos % (Auto) Baso % (Auto) Lymph # (Auto) [place] # (Auto) Eos # (Auto) Baso # (Auto) Abs Immat Gran (auto) Absolute Neuts (auto) Absolute Nucleated RBC Nucleated RBC % (auto) PT Whole Blood PT INR Whole Blood INR APTT Anion Gap Estim Creat Clear Calc Estimated GFR POC Glucose Random Glucose Lactic Acid Calcium Ammonia 38 Total Creatine Kinase Imaging Radiologist's Impressions: Impressions Head CT 05/17/23 23:03 IMPRESSION: Old left frontoparietal infarct. No acute intracranial abnormality. This critical result was discussed with Dr. Medrano at 11:26 PM hours on 05/17/2023. It was ascertained that the content and urgency of the report was understood at the time of direct communication. Chest X-Ray 05/17/23 23:10 IMPRESSION: No active cardiopulmonary disease. Assessment and Plan (1) Seizure: Status: Acute Plan 57-year-old lady with underlying substance abuse, carotid artery stenosis status post CVA with residual right-sided hemiparesis, COPD with CO2 retention and chronic hypoxia on 2 L of oxygen here with transient aphasia and witnessed seizure, CT head show no acute finding Aphasia likely related to seizure and not stroke Seizure not on meds, add IV Keppra and consult Neurology moderate protein calory malnutrion--add supplement, nutrition consult, speech/swallow eval before feeding HTN--resume home meds HLD--statin Mood desorder--Sertraline and remron gerd PPI COPD no acute exacerbation, resume home med, O2 Lovenox for DVT prophylaxix full code admission for at least 2 midnights for management of acute seizure Time Spent With Patient Time: Total time managing care of this patient today ____ minutes. Quality Stroke Does the patient have a stroke diagnosis?: No VTE Prior VTE?: No VTE Risk Level:: Medical - moderate - high VTE Device Contraindication: Treatment Not Tolerated VTE Drug Contraindication: Treatment Not Tolerated
[2023-05-18 01:35] LABS: Reflex Lactate? Lactic Acid Added
[2023-05-18] MEDS: Enoxaparin Sodium 40 MG/0.4 ML SYRINGE SUBCUT (02:09)
[2023-05-18] MEDS: levETIRAcetam in NaCl (iso-os) 500 MG/100 ML PIGGYBACK 400 MG IV ×2 (02:09→14:50)
[2023-05-18] MEDS: Dextrose 5 % and 0.45 % NaCl 1,000 ML 100 ML IVCONT ×3 (02:28→20:57)
[2023-05-18 02:54] LABS: ~Lactic Acid-LAB USE ONLY 0.6 mmol/L (0.5-2.0)
--- NOTE | 2023-05-18 06:19 | PC.NURSE ---
pt asleep comfortably on stretcher respirations even and unlabored. equal chest rise and fall - pt in no apparent distress. pt minimally responsive to verbal stimuli. on gambling monitor. waiting for bed assignment on med surg floor. call campbell within reach
--- NOTE | 2023-05-18 07:32 | PC.NURSE ---
Addendum entered by Dea Murillo 05/18/23 07:34: seizure pads present. Original Note: pt currently sleeping brit in no apparent distress. respirations even and unlabored. vss and up to date. nsr on the vehicle monitor technician. D5 1/2 still hung and running. call campbell placed within reach.
[2023-05-18] MEDS: 0.9 % Sodium Chloride Flush 3 ML SYRINGE IVFLUSH ×2 (07:34→20:49)
[2023-05-18 08:53] LABS: Anion Gap 13 (12-20); Blood Urea Nitrogen 6 mg/dL (9-16); Calcium 9.3 mg/dL (8.4-10.2); Carbon Dioxide 29 mmol/L (22-29); Chloride 91 mmol/L (96-108); Creatinine Clr Calc Pharmacy 62.6; Estimated Glomerular Filt Rate > 60; Glucose Random 90 mg/dL (60-115); Sodium 129 mmol/L (135-145)
--- NOTE | 2023-05-18 09:24 | PC.NURSE ---
pt still currently sleeping in no signs of distress, vss, nsr on the manager monitoring. O2 still at 3L via nasal cannula - pt tolerating well. respirations even and unlabored. call campbell placed within reach.
--- NOTE | 2023-05-18 10:01 | PC.NURSE ---
this nurse attempted to call report to the floor but was unable to get through, sanju texted the nurse to call us back to obtain report
--- NOTE | 2023-05-18 10:10 | MHC.CM.PN ---
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
--- NOTE | 2023-05-18 10:17 | PC.NURSE ---
report given to RN on IMC - contacted transport.
--- NOTE | 2023-05-18 10:31 | PC.NURSE ---
ivf hung per order, seizure precautions intact/fall precautions intact, environmental monitoring technician intact, vss, will conatinue to monitor
--- NOTE | 2023-05-18 11:35 | PM.EVENT ---
Event Note Date of Service: 05/18/23 Event Note: 57-year-old lady with underlying substance abuse, carotid artery stenosis status post CVA with residual right-sided hemiparesis, COPD with CO2 retention and chronic hypoxia on 2 L of oxygen here with transient aphasia and witnessed seizure,? CT head show no acute finding Aphasia. Seems to be resolving likely related to seizure and not stroke monitor for further improvement Seizure not on meds seizure precautions IV Keppra added and consult Neurology moderate protein calorie malnutrition add supplement speech/swallow>rec regular solids and thin liquids HTN resume home meds Hx of CVA chronic right sided hemiparesis Hx of HFpEF no exacerbation HLD statin Mental Health Sertraline and remeron GERD PPI chronic resp failure secondary to COPD no acute exacerbation resume home med on 2 liters home o2 Lovenox? for DVT prophylaxix Attending Dr. Velasquez full code Continue hospitalization for management of acute seizure Time Spent With Patient Time: Total time managing care of this patient today ____ minutes.
--- NOTE | 2023-05-18 11:51 | PHA.MEDREC ---
Pharmacy Consult ? Medication Reconciliation Pharmacy has completed the medication reconciliation. Spoke to pt and she was not able to name her medications. However when I read the names of them off of the claim history she was able to confirm that she was still taking them or had stopped them.
--- NOTE | 2023-05-18 12:04 | MHC.SL.SWA ---
Risk of Aspiration Due to: Lethargy Weak Voice Dysphasia Diet Status: UPGRADE Liquid Consistency and Strategies for Safe Swallow: Liquid Intake Recommendation: Thin Liquid Intake Strategies: Small Sips Solid Food Consistency: Dietary Recommendations: Regular Oral Medication Intake: Whole with Liquid Please contact the pharmacy regarding appropriate crushable or liquid drug formulations that are available whenever modified delivery is recommended. Compensatory Strategies and Precautions to be Taken for Safe Swallow: Sitting Upright (90 deg) Small Bites and Sips Supervision While Eating and Drinking for Safe Swallow: Intermittent Supervision Recommendation for Speech: Inpatient Speech Therapy Comment: Recommend UPGRADE to REGULAR solids, THIN liquids, pills WHOLE w/ liquid. Recommend intermittent supervision. RN on floor notified. PUBLIC [facility], RN, and RD notified via [employer]. BALL TRUING MACHINE OPERATOR to f/u 1x. Recommend oral motor exam attempted again to test lingual strength, ROM, and speed. International Logistics Coordinator Clinican/Clinical Fellow: No Supervisory Statement: I have reviewed and agree with the student/clinical fellow's documentation: No Speech Language Pathologist: Sahara Taylor M.A., CCC-BALL TRUING MACHINE OPERATOR
[2023-05-18 14:21] LABS: Anion Gap 8 (12-20); Blood Urea Nitrogen 4 mg/dL (9-16); Calcium 9.1 mg/dL (8.4-10.2); Carbon Dioxide 35 mmol/L (22-29); Chloride 90 mmol/L (96-108); Creatinine Clr Calc Pharmacy 71.1; Estimated Glomerular Filt Rate > 60; Glucose Random 83 mg/dL (60-115); Potassium 4.1 mmol/L (3.3-5.1); Sodium 129 mmol/L (135-145)
--- NOTE | 2023-05-18 14:53 | P.CNNE_ITS ---
History of Present Illness Data of Consult Service Date: 05/18/23 Primary Care Provider: Unknown Physician HPI Reason for consult: Seizure 57-year-old female with past medical history of underlying substance abuse, carotid artery stenosis status post CVA with residual right-sided hemiparesis, CAD, major depression disorder,? takotsubo cardiomyopathy, seizures desorder, COPD /asthma on baseline 2-3 L of oxyge. She came to hospital for change in mental status and apparently had a seizure. She was treated with benzodiazepine and then was admitted. Because of hemiparesis I was consulted but my suggestion was to consider seizure as explanation of weakness more than stroke. Now she was feeling better. Review of Systems Review of Systems: Right hemiparesis with no recent cold or flu-like illness. She seemed depressed PMFSH Past Medical History Medical History Acute CHF (congestive heart failure) Anxiety, generalized Asthma, moderate Asymptomatic carotid artery stenosis with infarction Chronic GERD Cocaine abuse Cocaine abuse COPD (chronic obstructive pulmonary disease) Environmental allergies Hemiparesis affecting right side as late effect of cerebrovascular accident History of acute respiratory distress syndrome (ARDS) (~08/2021) History of drug abuse History of multiple cerebrovascular accidents (CVAs) History of non-ST elevation myocardial infarction (NSTEMI) (~11/2021) Hypercapnic respiratory failure, chronic Lipid disorder Major depression, recurrent Nicotine dependence, cigarettes, uncomplicated Normocytic anemia Oxygen dependent Respiratory failure with hypoxia Seizure (~11/2021) Takotsubo cardiomyopathy Family History Family History Father Substance abuse Mother Brain cancer Maternal Grandfather History of heart attack Maternal Grandmother History of heart attack Paternal Grandfather No problems noted. Paternal Grandmother No problems noted. Brother No problems noted. Brother No problems noted. Son No problems noted. Daughter No problems noted. Other Mental health disorder Surgical History Surgical History History of left-sided carotid endarterectomy (~09/2012) History of tonsillectomy and adenoidectomy Social History Social History Household Members: Children Housing: Condominium Do you presently have visiting nurse or other home services: No Unable to assess alcohol history related to: Refusing to respond Alcohol intake: unknown Patient Tobacco Use Status: Tobacco use Unknown Tobacco use type: Cigarette Cigarettes Per Day: 2 Years Smoked: 35 years e-Cigarette/Vaping Use: Never Used Second Hand Smoke Exposure: No Advance Directives Date on File: 11/25/21 service: No Current occupational status: disabled Cognitive needs: No Hearing needs: No Vision needs: No Meds Allergies Allergy/AdvReac Type Severity Reaction Status Date / Time crab Allergy Unknown Hives Verified 03/17/23 01:46 penicillin V Allergy Unknown hives Verified 03/17/23 01:46 Penicillins [PENICILLINS] Allergy Unknown hives Verified 03/17/23 01:46 SEASONAL ALLERGIES Allergy Mild RUNNY NOSE Uncoded 03/17/23 01:46 Active Medications: Current Medications Acetaminophen (Acetaminophen 325 Mg Tablet) 650 mg PO Q6H PRN PRN Reason: Pain, Mild (Pain Scale 1-3) Al Hydroxide/Mg Hydroxide (Magnesium Hydrox/Alum Hydrox 30 Ml Oral.Susp) 30 ml PO Q4H PRN PRN Reason: Heartburn/Nausea Albuterol/Ipratropium (Albuterol/Iprat 2.5/0.5mg 3 Ml Ampul.Neb) 3 ml INHALE TID PRN PRN Reason: shortness of breath Amlodipine Besylate (Amlodipine Besylate 5 Mg Tablet) 5 mg PO DAILY [facility]; Protocol Aspirin (Aspirin Enteric Coated 81 Mg Tablet.Dr) 81 mg PO DAILY [facility] Atorvastatin Calcium (Atorvastatin Calcium 40 Mg Tablet) 40 mg PO BEDTIME [facility] Enoxaparin Sodium (Enoxaparin Sodium 40 Mg/0.4 Ml Syringe) 40 mg SUBCUT Q24H [facility] Last Admin: 05/18/23 02:09 Dose: 40 mg Folic Acid (Folic Acid 1 Mg Tablet) 1 mg PO DAILY [facility] Dextrose/Sodium Chloride (D51/2ns) 1,000 mls @ 100 mls/hr IVCONT .Q10H [facility] Last Admin: 05/18/23 10:30 Dose: 100 mls/hr Levetiracetam (Keppra) 500 mg in 100 mls @ 400 mls/hr IV Q12H [facility] Last Infusion: 05/18/23 02:25 Dose: Infused Melatonin (Melatonin 3 Mg Tablet) 3 mg PO BEDTIME PRN PRN Reason: Insomnia Metoprolol Tartrate (Metoprolol Tartrate 25 Mg Tablet) 25 mg PO BID [facility]; Protocol Mirtazapine (Mirtazapine 30 Mg Tablet) 30 mg PO BEDTIME [facility] Omeprazole (Omeprazole 20 Mg Capsule.Dr) 20 mg PO DAILY@06 [facility] Ondansetron HCl (Ondansetron Hcl 4 Mg/2 Ml Vial) 4 mg IVPUSH Q8H PRN PRN Reason: Nausea and Vomiting Sertraline HCl (Sertraline Hcl 25 Mg Tablet) 25 mg PO DAILY [facility] Sodium Chloride (0.9 % Sodium Chloride Flush 3 Ml Syringe) 3 ml IVFLUSH QSHIFT [facility] Last Admin: 05/18/23 07:34 Dose: 3 ml Home Medications Medication Instructions Recorded Confirmed Last Taken Type aspirin 81 mg tablet,delayed 81 mg PO DAILY 10/21/22 05/18/23 05/16/23 History release (Adult Low Dose Aspirin) folic acid 1 mg tablet 1 mg PO DAILY 05/18/23 05/18/23 05/16/23 History ipratropium 0.5 mg-albuterol 3 mg 3 ml inhalation TID PRN shortness 05/18/23 05/18/23 Unknown History (2.5 mg base)/3 mL nebulization of breath soln omeprazole 20 mg capsule,delayed 20 mg PO DAILY@62905/18/23 05/18/23 05/16/23 History release Physical Exam Vital Signs: Vital Signs: Last Vital Signs Temp 98.7 F 05/18/23 12:00 Pulse 85 05/18/23 14:30 Resp 20 05/18/23 12:00 BP 129/63 05/18/23 14:30 Pulse Ox 95 05/18/23 14:30 O2 Del Method Nasal Cannula 05/18/23 12:00 O2 Flow Rate 3 05/18/23 12:00 BMI result Body Mass Index 16.4 Neuro: Other: Alert and awake with normal spontaneity of speech fluency comprehension and depressed and flat affect. Muscle mass is diminished. She has moderate right hemiparesis. Visual john are intact. Results Labs 05/17/23 22:44 05/18/23 13:49 Labs: Short CBC 05/17/23 Range/Units 22:44 WBC 10.4 (4.8-10.8) X10*3/uL Hgb 10.6 L D (12.0-16.0) g/dl Hct 33.2 L (37.0-47.0) % Plt Count 237 (160-400) X10*3/uL BMP 05/17/23 05/18/23 05/18/23 22:44 08:31 13:49 Sodium 127 L 129 L 129 L Potassium 4.9 4.0 4.1 Chloride 84 L 91 L 90 L Carbon Dioxide 34 H 29 35 H BUN 9 6 L 4 L Creatinine 0.69 0.59 0.52 Calcium 9.7 9.3 9.1 Cardiac Enzymes 05/17/23 Range/Units 22:44 Total Creatine Kinase 176 H (26-140) U/L head CT revealed a large left middle cerebral artery chronic ischemic infarct. Assessment and Plan (1) Seizure: Status: Acute 57 years old woman with chronic large left middle cerebral artery ischemic infarct resulting in right hemiparesis, came to hospital with change in mental status and was noted to have a generalized seizure. Now she was back to [facility]. My recommendation is to start her on levetiracetam 500 mg twice a day. Time Spent With Patient Time: Total time managing care of this patient today ____ minutes. Procedures Date of Service Date of Service: 05/18/23
[2023-05-18] MEDS: Atorvastatin Calcium 40 MG TABLET PO (20:48)
[2023-05-18] MEDS: Metoprolol Tartrate 25 MG TABLET PO (20:48)
[2023-05-18] MEDS: Mirtazapine 30 MG TABLET PO (20:48)
[2023-05-18] MEDS: Acetaminophen 325 MG TABLET 650 MG PO (20:48)
[2023-05-18] MEDS: Albuterol/Iprat 2.5/0.5MG 3 ML AMPUL.NEB INHALE (20:59)
[2023-05-19] VITALS (9 sets, daily range): BP systolic 110–132; BP diastolic 40–61; PULSE 64–102; RESP 18–20; TEMP 36.1–37.5; O2SAT 84–100; BMI 16.4
[2023-05-19] MEDS: Enoxaparin Sodium 40 MG/0.4 ML SYRINGE SUBCUT (00:42)
[2023-05-19] MEDS: levETIRAcetam in NaCl (iso-os) 500 MG/100 ML PIGGYBACK 400 MG IV ×2 (00:42→14:41)
[2023-05-19] MEDS: Omeprazole 20 MG CAPSULE.DR PO (03:38)
[2023-05-19] MEDS: Dextrose 5 % and 0.45 % NaCl 1,000 ML 100 ML IVCONT (06:42)
[2023-05-19] MEDS: Albuterol/Iprat 2.5/0.5MG 3 ML AMPUL.NEB INHALE (09:46)
--- NOTE | 2023-05-19 09:46 | PC.RT ---
RT found patient on room air with an 02 Sat of 45% with her nasal cannula in her nose but not on. Pt was dusky and having trouble breathing. Oxygen was administered and placed on 6 liters. She does wears 3 liters. Pt Sats did come up to 96% . Pt color came back and she no longer is in resp distress. This am, vitals were taken at 7am saying and vitals reported said pt was on 3 liters, however we found her on room air. I discussed with RN and will speak to Director about this.
[2023-05-19] MEDS: Sertraline HCL 25 MG TABLET PO (10:13)
[2023-05-19] MEDS: Aspirin Enteric Coated 81 MG TABLET.DR PO (10:13)
[2023-05-19] MEDS: amLODIPine Besylate 5 MG TABLET PO (10:13)
[2023-05-19] MEDS: Metoprolol Tartrate 25 MG TABLET PO ×2 (10:13→21:14)
[2023-05-19] MEDS: 0.9 % Sodium Chloride Flush 3 ML SYRINGE IVFLUSH (10:14)
[2023-05-19] MEDS: Folic Acid 1 MG TABLET PO (10:14)
--- NOTE | 2023-05-19 10:38 | MHC.SL.SWA ---
Speech Pathologist Impression: Risk of Aspiration Due to: Lethargy Weak Voice Dysphasia Diet Status: Liquid Consistency and Strategies for Safe Swallow: Liquid Intake Recommendation: Thin Liquid Intake Strategies: Small Sips Solid Food Consistency: Dietary Recommendations: Regular Additional Modifications to Solid Foods: Oral Medication Intake: Whole with Liquid Please contact the pharmacy regarding appropriate crushable or liquid drug formulations that are available whenever modified delivery is recommended. Compensatory Strategies and Precautions to be Taken for Safe Swallow: Sitting Upright (90 deg) Small Bites and Sips Supervision While Eating and Drinking for Safe Swallow: Intermittent Supervision Foods to Avoid: Swallowing Recommended Treatments: Recommendation for Speech: Inpatient Speech Therapy Comment: Patient seen this morning for toleration of recommended diet: Regular / Thin. Patient was somewhat reclined in bed at onset with tea in front of her on tray. Patient reported that she was sitting up when she wanted a sip of tea, which was encouraged as appropriate. Patient agreed to have head of bed raised, then patient was observed taking sips of tea, with no clinical signs of aspiration noted (however patient does cough intermittently, currently on oxygen). Patient was asked to take some more bites of eggs, toast which remained on tray. Patient produced oral and pharyngeal phase of swallow WFL. Patient had eaten most of breakfast refused any more. Recommend continue on Regular Diet with Thin liquids, pills whole in puree. Patient is on least restrictive diet and tolerating well. Recommend DC speech at the time, no further services required. Patient's word finding symptoms resolved, likely secondary to seizure behavior, does not require speech therapy at next level of care. [employer]CHER will DC, please recontract if any additional services are warranted. Frequency/Duration: Date Range for Service Req: Timeline to reassess: Research Attorney Clinican/Clinical Fellow: No Supervisory Statement: I have reviewed and agree with the student/clinical fellow's documentation: No Speech Language Pathologist: Jennifer Aguero M.A., CCC-[employer] B[employer]CHER
--- NOTE | 2023-05-19 11:44 | MHC.CLN ---
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
[2023-05-19 14:46] LABS: Sodium 137 mmol/L (135-145)
--- NOTE | 2023-05-19 15:12 | MHC.CM.PN ---
Per [facility]/Edel, Patient will be medically cleared for dc to home today with resumption of services (MORTGAGE LOAN COORDINATOR & [employer] for home O2).
--- NOTE | 2023-05-19 15:46 | PM.DS ---
DS: Providers Provider Date of Service: 05/19/23 Date of admission: 05/18/23 00:33 Date of discharge: 05/19/23 Primary care physician: Brianna Gonzalez MD Consults: 05/18/23 01:30 Consult to Neurology Routine Consulting Provider: [facility] Reason for consultation: seizure Attending physician on discharge: Ko Velasquez Discharging clinician: Edel Bolivar DS: Diagnosis Discharge Diagnosis (1) Seizure: Status: Acute DS: Summary Hospital Course Hospital Course: From H&P on day of admission 57-year-old female with past medical history of underlying substance abuse, carotid artery stenosis status post CVA with residual right-sided hemiparesis, CAD, major depression disorder,? takotsubo cardiomyopathy, seizures desorder, COPD /asthma on baseline 2-3 L of oxyge.?She was brought to the ED as stroke alert due to word finding diffuculty and garbled speech, Stroke work up with CT showed just old stroke. She had a witnessed tonic clonic seizure in the ED and given 2 mg of Ativan and very lethargic at time of my evluation. Case was discussed with with neurology with conclusion that she would have been a candidate for thrombolytic or further work up if her presentation was stroke. Aphasia. Resolved. likely related to seizure and not stroke Seizure not on meds at baseline. was seen by neurology and started on keppra. She had no further seizure activity. moderate protein calorie malnutrition add supplement speech/swallow>rec regular solids and thin liquids Hyponatremia. Resolved with IV fluid Hx of CVA chronic right sided hemiparesis. She was evaluated by Physical therapy, since she is at her functional baseline, no additional recommendations were made. 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 Time Spent with Patient Time attestation: Total time managing care of this patient today ____ minutes. Discharge coordination time: Greater than 30 minutes Quality: Safe Use of Opioids Does Pt have an Active Cancer Diagnosis on the Problem List?: No Quality: Stroke Does the patient have a stroke diagnosis?: No Physical Exam Vital Signs: Vital Signs: Last Vital Signs Temp 99.5 F 05/19/23 15:04 Pulse 66 05/19/23 15:04 Resp 20 05/19/23 15:04 BP 113/49 L 05/19/23 15:04 Pulse Ox 99 05/19/23 15:04 O2 Del Method Nasal Cannula 05/19/23 15:04 O2 Flow Rate 3 05/19/23 15:04 BMI result Body Mass Index 16.4 Const: General: cooperative, comfortable, alert and awake Nutritional Appearance: thin Orientation/consciousness: patient oriented x3 Resp: Effort & Inspection: normal respiratory effort, able to speak in complete sentences, no respiratory distress and no use of accessory muscles Cardio: Rate: regular rate GI: Inspection: No distended Palpation (GI): Soft to palpation Neuro: Other: chronic right hemiparesis General: patient oriented x3 DS: Data Data Completed and Pending Completed studies during hospitalization [Text1]: Procedures Labs on day of discharge: Laboratory Results - last 24 hr 05/19/23 14:17 Sodium 137 Discharge Plan Discharge Anticipated Discharge Date/Time: 05/19/23 16:01 Patient Disposition: Home, Self-Care Discharge Diagnosis: seizure hyponatremia Referrals: Brianna Gonzalez MD [Primary Care Provider] - 1 Week Juliana Gonzalez MD [Physician] - 1 Month Discharge Medications: New levetiracetam 500 mg Tablet 500 mg PO BID 30 Days Qty: 60 0RF Continued folic acid 1 mg tablet 1 mg PO DAILY omeprazole 20 mg capsule,delayed release(DR/EC) 20 mg PO DAILY@0630 ipratropium-albuterol 0.5 mg-3 mg(2.5 mg base)/3 mL solution for nebulization 3 ml inhalation TID PRN (Reason: shortness of breath) atorvastatin 40 mg tablet 40 mg PO BEDTIME 14 Days Qty: 14 0RF amlodipine 5 mg tablet 5 mg PO DAILY 14 Days Qty: 14 0RF aspirin [Adult Low Dose Aspirin] 81 mg tablet,delayed release (DR/EC) 81 mg PO DAILY 14 Days Qty: 14 0RF mirtazapine 30 mg tablet 30 mg PO BEDTIME 14 Days Qty: 14 0RF metoprolol tartrate 25 mg tablet 25 mg PO BID 14 Days Qty: 28 0RF albuterol sulfate 90 mcg/actuation HFA aerosol inhaler 2 puff PO Q6H PRN (Reason: bronchospasm) 30 Days Qty: 6.7 5RF sertraline 25 mg tablet 25 mg PO DAILY 14 Days Qty: 14 0RF Discharge Orders: Discharge Order (Routine); Ordered 05/19/23 Ordered By: Edel Bolivar Activity on Discharge: As tolerated Stand Alone Forms: Patient Portal Discharge page Care Plan Goals: see below Health Concerns: seizure hyponatremia Plan of Treatment: take keppra twice daily as prescribed do not drive, swim or bathe alone. call to schedule follow up appointment with neurology sodium levels normalized - recommend repeat levels on outpatient basis per patient, unable to get refills for baseline medications from PCP, will send 14 day supply to pharmacy - will need to call PCP's office for follow up Assessment: see discharge summary
--- NOTE | 2023-05-19 18:33 | PC.NURSE ---
Patient ready to discharge today, patient stated she was not able to contact her daughter whom was suppose to pick her up. Called daughter and was advise that she does not drive and is unable to pickling operator patient today, said she will arrange transport for tomorrow.
[2023-05-19] MEDS: Atorvastatin Calcium 40 MG TABLET PO (21:14)
[2023-05-19] MEDS: Mirtazapine 30 MG TABLET PO (21:14)
[2023-05-19] MEDS: levETIRAcetam 500 MG TABLET PO (21:14)
[2023-05-19] MEDS: Acetaminophen 325 MG TABLET 650 MG PO (21:14)
[2023-05-19] MEDS: Melatonin 3 MG TABLET PO (21:15)
[2023-05-20] VITALS (7 sets, daily range): BP systolic 107–130; BP diastolic 47–58; PULSE 60–81; RESP 17–20; TEMP 36.1–36.8; O2SAT 94–100
[2023-05-20] MEDS: Enoxaparin Sodium 40 MG/0.4 ML SYRINGE SUBCUT (02:21)
[2023-05-20] MEDS: 0.9 % Sodium Chloride Flush 3 ML SYRINGE IVFLUSH ×2 (02:21→09:50)
[2023-05-20] MEDS: Omeprazole 20 MG CAPSULE.DR PO (07:05)
--- NOTE | 2023-05-20 08:21 | MHC.CM.PN ---
Patient's Daughter was apparently unable to transport yesterday; per PA, Patient's Daughter will arrange transport to home today.
[2023-05-20] MEDS: amLODIPine Besylate 5 MG TABLET PO (09:49)
[2023-05-20] MEDS: Aspirin Enteric Coated 81 MG TABLET.DR PO (09:49)
[2023-05-20] MEDS: Metoprolol Tartrate 25 MG TABLET PO ×2 (09:49→21:16)
[2023-05-20] MEDS: Folic Acid 1 MG TABLET PO (09:49)
[2023-05-20] MEDS: Sertraline HCL 25 MG TABLET PO (09:49)
[2023-05-20] MEDS: levETIRAcetam 500 MG TABLET PO ×2 (09:49→21:16)
[2023-05-20] MEDS: Acetaminophen 325 MG TABLET 650 MG PO ×2 (09:52→21:16)
--- NOTE | 2023-05-20 11:42 | MHC.CLN ---
F/U PT IS MODERATELY MALNOURISHED SEE ALSO FULL CLINICAL NUTRITION ASSESSMENT DATED 05/19/23 FAMILIAR WITH PT FROM PREVIOUS ADMISSION; PREVIOUSLY DX MPCM WT HAS REMAINED STABLE X 6 MONTHS PO INTAKE FAIR DIET RX: 2GM NA-APPROPRIATE PT RECEIVING ENSURE BID TO INCREASE KCALS PROVIDES 700KCALS, 40G PROTEIN WITH 100% ACCEPTANCE PT PREFER CHOCOLATE FLAVOR MONITOR PO INTAKE CLOSELY
--- NOTE | 2023-05-20 11:48 | MHC.CM.PN ---
CM attempted to speak with Daughter/TRANSCRIPTION TYPIST/Pina @ [phone] to confirm that she has made transportation arrangements for Patient to return home today. Pina's mail box is full and LAVELLE was not able to leave a message.
--- NOTE | 2023-05-20 15:13 | MHC.CM.PN ---
CM attempted again to reach Daughter/LEGAL CONTRACTS SPECIALIST/Pina @ [phone], in the presence of PA and other CM Coworker; CM was unable to reach Daughter nor leave a message.
[2023-05-20] MEDS: Albuterol/Iprat 2.5/0.5MG 3 ML AMPUL.NEB INHALE (15:54)
--- NOTE | 2023-05-20 18:26 | P.PNIM_ITS ---
Subjective Subjective Date of Service: 05/20/23 Interval History: seen and examined this morning follow up for seizure no changes overnight no complaints this am Review of Systems Review of Systems: Yes all other systems are reviewed and are negative Constitutional Constitutional: Denies chills and Denies fever(s) ENT Ears, Nose, Mouth, and Throat: Denies dizziness Cardiovascular Cardiovascular: Denies chest pain and Denies dyspnea Respiratory Respiratory: Denies dyspnea Gastrointestinal Gastrointestinal: Denies abdominal pain Neurologic Neurologic: Denies dizziness Physical Exam 2 Vital Signs: Vital Signs: Last Vital Signs Temp 97.1 F 05/20/23 15:51 Pulse 70 05/20/23 15:57 Resp 18 05/20/23 15:57 BP 113/51 L 05/20/23 15:51 Pulse Ox 98 05/20/23 15:51 O2 Del Method Nasal Cannula 05/20/23 15:51 O2 Flow Rate 3 05/20/23 11:43 BMI result Body Mass Index 16.4 Const: General: cooperative, comfortable, alert and awake Nutritional Appearance: thin Orientation/consciousness: patient oriented x3 Resp: Effort & Inspection: normal respiratory effort, able to speak in complete sentences, no respiratory distress and no use of accessory muscles Cardio: Rate: regular rate GI: Inspection: No distended Palpation (GI): Soft to palpation Neuro: Other: chronic right hemiparesis General: patient oriented x3 Objective Data Active Medications Acetaminophen (Acetaminophen 325 Mg Tablet) 650 mg PO Q6H PRN PRN Reason: Pain, Mild (Pain Scale 1-3) Last Admin: 05/20/23 09:52 Dose: 650 mg Documented By: RONNIE Al Hydroxide/Mg Hydroxide (Magnesium Hydrox/Alum Hydrox 30 Ml Oral.Susp) 30 ml PO Q4H PRN PRN Reason: Heartburn/Nausea Albuterol/Ipratropium (Albuterol/Iprat 2.5/0.5mg 3 Ml Ampul.Neb) 3 ml INHALE TID PRN PRN Reason: shortness of breath Last Admin: 05/20/23 15:54 Dose: 3 ml Documented By: ALEXANDER Amlodipine Besylate (Amlodipine Besylate 5 Mg Tablet) 5 mg PO DAILY [facility]; Protocol Last Admin: 05/20/23 09:49 Dose: 5 mg Documented By: RONNIE Aspirin (Aspirin Enteric Coated 81 Mg Tablet.Dr) 81 mg PO DAILY [facility] Last Admin: 05/20/23 09:49 Dose: 81 mg Documented By: RONNIE Atorvastatin Calcium (Atorvastatin Calcium 40 Mg Tablet) 40 mg PO BEDTIME [facility] Last Admin: 05/19/23 21:14 Dose: 40 mg Documented By: LULU Enoxaparin Sodium (Enoxaparin Sodium 40 Mg/0.4 Ml Syringe) 40 mg SUBCUT Q24H [facility] Last Admin: 05/20/23 02:21 Dose: 40 mg Documented By: HEBER Folic Acid (Folic Acid 1 Mg Tablet) 1 mg PO DAILY [facility] Last Admin: 05/20/23 09:49 Dose: 1 mg Documented By: RONNIE Levetiracetam (Levetiracetam 500 Mg Tablet) 500 mg PO BID [facility] Last Admin: 05/20/23 09:49 Dose: 500 mg Documented By: RONNIE Melatonin (Melatonin 3 Mg Tablet) 3 mg PO BEDTIME PRN PRN Reason: Insomnia Last Admin: 05/19/23 21:15 Dose: 3 mg Documented By: LULU Metoprolol Tartrate (Metoprolol Tartrate 25 Mg Tablet) 25 mg PO BID [facility]; Protocol Last Admin: 05/20/23 09:49 Dose: 25 mg Documented By: RONNIE Mirtazapine (Mirtazapine 30 Mg Tablet) 30 mg PO BEDTIME [facility] Last Admin: 05/19/23 21:14 Dose: 30 mg Documented By: LULU Omeprazole (Omeprazole 20 Mg Capsule.) 20 mg PO DAILY@0630 [facility] Last Admin: 05/20/23 07:05 Dose: 20 mg Documented By: LULU Ondansetron HCl (Ondansetron Hcl 4 Mg/2 Ml Vial) 4 mg IVPUSH Q8H PRN PRN Reason: Nausea and Vomiting Sertraline HCl (Sertraline Hcl 25 Mg Tablet) 25 mg PO DAILY [facility] Last Admin: 05/20/23 09:49 Dose: 25 mg Documented By: RONNIE Sodium Chloride (0.9 % Sodium Chloride Flush 3 Ml Syringe) 3 ml IVFLUSH QSHIFT [facility] Last Admin: 05/20/23 16:37 Dose: Not Given Documented By: RONNIE Non-Admin Reason: Previously Administered Labs 05/17/23 22:44 05/19/23 14:17 Assessment and Plan (1) Seizure: Status: Acute Plan 57-year-old lady with underlying substance abuse, carotid artery stenosis status post CVA with residual right-sided hemiparesis, COPD with CO2 retention and chronic hypoxia on 2 L of oxygen here with transient aphasia and witnessed seizure,? CT head show no acute finding Aphasia. resolved likely related to seizure and not stroke Seizure not on meds started on keppra per neuro rec change to po from IV moderate protein calorie malnutrition add supplement speech/swallow>rec regular solids and thin liquids HTN resume home meds Hx of CVA chronic right sided hemiparesis Hx of HFpEF no exacerbation HLD statin Mental Health Sertraline and remeron GERD PPI chronic resp failure secondary to COPD no acute exacerbation resume home med on 2 liters home o2 Lovenox? for DVT prophylaxix Attending Dr. Velasquez full code Time Spent With Patient Time: Total time managing care of this patient today ____ minutes. Quality Stroke Does the patient have a stroke diagnosis?: No VTE Prior VTE?: No VTE Risk Level:: Medical - moderate - high VTE Device Contraindication: Treatment Not Tolerated VTE Drug Contraindication: Treatment Not Tolerated
[2023-05-20] MEDS: Mirtazapine 30 MG TABLET PO (21:16)
[2023-05-20] MEDS: Melatonin 3 MG TABLET PO (21:16)
[2023-05-20] MEDS: Atorvastatin Calcium 40 MG TABLET PO (21:16)
--- NOTE | 2023-05-20 22:07 | PC.NURSE ---
Pt A&OX3. c/o headache occasionally medicated with Tylenol as needed with good effect. Resting in bed comfortably. No seizure like activity noted at this time precautions in place. Purewick in place with clear yellow urine. CM unable to get in contact with daughter for discharge. Will continue to monitor and report changes
[2023-05-21] MEDS: Enoxaparin Sodium 40 MG/0.4 ML SYRINGE SUBCUT (02:04)
[2023-05-21] MEDS: 0.9 % Sodium Chloride Flush 3 ML SYRINGE IVFLUSH ×4 (02:04→21:34)
[2023-05-21 03:08] VITALS: BP 130/64; PULSE 65; RESP 20; TEMP 37.1; O2SAT 100
[2023-05-21] MEDS: Omeprazole 20 MG CAPSULE.DR PO (06:18)
[2023-05-21 06:55] VITALS: BP 113/58; PULSE 63; RESP 20; TEMP 37.1; O2SAT 99
[2023-05-21] MEDS: Folic Acid 1 MG TABLET PO (07:59)
[2023-05-21] MEDS: levETIRAcetam 500 MG TABLET PO ×2 (07:59→21:34)
[2023-05-21] MEDS: amLODIPine Besylate 5 MG TABLET PO (07:59)
[2023-05-21] MEDS: Aspirin Enteric Coated 81 MG TABLET.DR PO (07:59)
[2023-05-21] MEDS: Sertraline HCL 25 MG TABLET PO (07:59)
--- NOTE | 2023-05-21 10:51 | MHC.CM.PN ---
PT CLEARED FOR DC ON 05/19/23, PTS DAUGHTER NOTIFIED AT THAT TIME BY PTS HOSPITALIST LAVELLE ATTEMPTED TO REACH PTS DAUGHTER SEVERAL TIMES SINCE THEN, SHE DOES NOT ANSWER AND HER VM BOX IS FULL LAVELLE CALLED [facility] AND REQUESTED THEY COMPLETE A WELFARE CHECK ON PTS DAUGHTER THEY WILL CALL LAVELLE BACK ONCE THEY VISIT HER HOME
[2023-05-21 11:06] VITALS: BP 125/56; PULSE 74; RESP 20; TEMP 36.6; O2SAT 98
--- NOTE | 2023-05-21 14:33 | P.PNIM_ITS ---
Subjective Subjective Date of Service: 05/21/23 Interval History: seen and examined this morning follow up for seizure no overnight events feeling well today Review of Systems Review of Systems: Yes all other systems are reviewed and are negative Constitutional Constitutional: Denies chills and Denies fever(s) Cardiovascular Cardiovascular: Denies chest pain, Denies palpitations and Denies dyspnea Respiratory Respiratory: Denies cough and Denies dyspnea Gastrointestinal Gastrointestinal: Denies abdominal pain Endocrine Endocrine: Denies palpitations Physical Exam 2 Vital Signs: Vital Signs: Last Vital Signs Temp 97.9 F 05/21/23 11:06 Pulse 74 05/21/23 11:06 Resp 20 05/21/23 11:06 BP 125/56 L 05/21/23 11:06 Pulse Ox 98 05/21/23 11:06 O2 Del Method Nasal Cannula 05/21/23 11:06 O2 Flow Rate 3 05/21/23 11:06 BMI result Body Mass Index 16.4 Const: General: cooperative, comfortable, alert and awake Nutritional Appearance: thin Orientation/consciousness: patient oriented x3 Resp: Effort & Inspection: normal respiratory effort, able to speak in complete sentences, no respiratory distress and no use of accessory muscles Cardio: Rate: regular rate GI: Inspection: No distended Palpation (GI): Soft to palpation Neuro: Other: chronic right hemiparesis General: patient oriented x3 Objective Data Active Medications Acetaminophen (Acetaminophen 325 Mg Tablet) 650 mg PO Q6H PRN PRN Reason: Pain, Mild (Pain Scale 1-3) Last Admin: 05/20/23 21:16 Dose: 650 mg Documented By: RONNIE Al Hydroxide/Mg Hydroxide (Magnesium Hydrox/Alum Hydrox 30 Ml Oral.Susp) 30 ml PO Q4H PRN PRN Reason: Heartburn/Nausea Albuterol/Ipratropium (Albuterol/Iprat 2.5/0.5mg 3 Ml Ampul.Neb) 3 ml INHALE TID PRN PRN Reason: shortness of breath Last Admin: 05/20/23 15:54 Dose: 3 ml Documented By: ALEXANDER Amlodipine Besylate (Amlodipine Besylate 5 Mg Tablet) 5 mg PO DAILY [facility]; Protocol Last Admin: 05/21/23 07:59 Dose: 5 mg Documented By: MARY Aspirin (Aspirin Enteric Coated 81 Mg Tablet.) 81 mg PO DAILY [facility] Last Admin: 05/21/23 07:59 Dose: 81 mg Documented By: MARY Atorvastatin Calcium (Atorvastatin Calcium 40 Mg Tablet) 40 mg PO BEDTIME [facility] Last Admin: 05/20/23 21:16 Dose: 40 mg Documented By: RONNIE Enoxaparin Sodium (Enoxaparin Sodium 40 Mg/0.4 Ml Syringe) 40 mg SUBCUT Q24H [facility] Last Admin: 05/21/23 02:04 Dose: 40 mg Documented By: DINORA Folic Acid (Folic Acid 1 Mg Tablet) 1 mg PO DAILY [facility] Last Admin: 05/21/23 07:59 Dose: 1 mg Documented By: MARY Levetiracetam (Levetiracetam 500 Mg Tablet) 500 mg PO BID [facility] Last Admin: 05/21/23 07:59 Dose: 500 mg Documented By: MARY Melatonin (Melatonin 3 Mg Tablet) 3 mg PO BEDTIME PRN PRN Reason: Insomnia Last Admin: 05/20/23 21:16 Dose: 3 mg Documented By: RONNIE Metoprolol Tartrate (Metoprolol Tartrate 25 Mg Tablet) 25 mg PO BID [facility]; Protocol Last Admin: 05/21/23 07:59 Dose: Not Given Documented By: MARY Non-Admin Reason: Decreased Heart Rate Mirtazapine (Mirtazapine 30 Mg Tablet) 30 mg PO BEDTIME [facility] Last Admin: 05/20/23 21:16 Dose: 30 mg Documented By: RONNIE Omeprazole (Omeprazole 20 Mg Capsule.Dr) 20 mg PO DAILY@0630 [facility] Last Admin: 05/21/23 06:18 Dose: 20 mg Documented By: DINORA Ondansetron HCl (Ondansetron Hcl 4 Mg/2 Ml Vial) 4 mg IVPUSH Q8H PRN PRN Reason: Nausea and Vomiting Sertraline HCl (Sertraline Hcl 25 Mg Tablet) 25 mg PO DAILY [facility] Last Admin: 05/21/23 07:59 Dose: 25 mg Documented By: MARY Sodium Chloride (0.9 % Sodium Chloride Flush 3 Ml Syringe) 3 ml IVFLUSH QSHIFT [facility] Last Admin: 05/21/23 07:59 Dose: 3 ml Documented By: MARY Labs 05/17/23 22:44 05/19/23 14:17 Assessment and Plan (1) Seizure: Status: Acute Plan 57-year-old lady with underlying substance abuse, carotid artery stenosis status post CVA with residual right-sided hemiparesis, COPD with CO2 retention and chronic hypoxia on 2 L of oxygen here with transient aphasia and witnessed seizure,? CT head show no acute finding Seizure not on meds started on keppra per neuro rec change to po from IV Aphasia. resolved likely related to seizure and not stroke moderate protein calorie malnutrition add supplement speech/swallow>rec regular solids and thin liquids HTN continue norvasc and metoprolol Hx of CVA chronic right sided hemiparesis continue aspirin and statin Mental Health Sertraline and remeron GERD PPI chronic resp failure secondary to COPD no acute exacerbation resume home med on 2 liters home o2 DVT prophylaxis - lovenox Attending Dr. Ribeiro full code Time Spent With Patient Time: Total time managing care of this patient today ____ minutes. Quality Stroke Does the patient have a stroke diagnosis?: No VTE Prior VTE?: No VTE Risk Level:: Medical - moderate - high VTE Device Contraindication: Treatment Not Tolerated VTE Drug Contraindication: Treatment Not Tolerated
[2023-05-21] MEDS: Albuterol/Iprat 2.5/0.5MG 3 ML AMPUL.NEB INHALE (14:36)
[2023-05-21 14:37] VITALS: PULSE 74; RESP 18; O2SAT 98
[2023-05-21 15:01] VITALS: BP 135/64; PULSE 81; RESP 12; TEMP 36.4; O2SAT 96
[2023-05-21] MEDS: Acetaminophen 325 MG TABLET 650 MG PO (17:47)
[2023-05-21 19:11] VITALS: BP 143/52; PULSE 84; RESP 18; TEMP 36.7; O2SAT 96
[2023-05-21] MEDS: Atorvastatin Calcium 40 MG TABLET PO (21:33)
[2023-05-21] MEDS: Mirtazapine 30 MG TABLET PO (21:33)
[2023-05-21] MEDS: Metoprolol Tartrate 25 MG TABLET PO (21:33)
[2023-05-21] MEDS: Melatonin 3 MG TABLET PO (21:34)
[2023-05-22] VITALS (7 sets, daily range): BP systolic 118–165; BP diastolic 53–79; PULSE 62–79; RESP 16–20; TEMP 36.1–37.5; O2SAT 92–99
[2023-05-22] MEDS: Enoxaparin Sodium 40 MG/0.4 ML SYRINGE SUBCUT (01:45)
[2023-05-22] MEDS: Omeprazole 20 MG CAPSULE.DR PO (05:49)
[2023-05-22] MEDS: levETIRAcetam 500 MG TABLET PO ×2 (08:29→21:05)
[2023-05-22] MEDS: Metoprolol Tartrate 25 MG TABLET PO ×2 (08:29→21:05)
[2023-05-22] MEDS: Sertraline HCL 25 MG TABLET PO (08:29)
[2023-05-22] MEDS: Folic Acid 1 MG TABLET PO (08:29)
[2023-05-22] MEDS: Aspirin Enteric Coated 81 MG TABLET.DR PO (08:29)
[2023-05-22] MEDS: 0.9 % Sodium Chloride Flush 3 ML SYRINGE IVFLUSH ×3 (08:30→21:06)
[2023-05-22] MEDS: amLODIPine Besylate 5 MG TABLET PO (08:30)
--- NOTE | 2023-05-22 10:53 | MHC.CM.PN ---
Another attempt made at contacting Pt.'s daughter, Pina RE D/C for Pt. Pina once again did not answer the phone and the mailbox remains full rendering zero potential for a VM to be left. CM to follow.
--- NOTE | 2023-05-22 14:46 | MHC.CM.PN ---
Called Pina again, Pina answered and then hung up. Made immediate subsequent call; Pina states she does not drive and has no way of picking up Pt tonight. Pina says she has an appt in [facility] tomorrow at 11:00am that her father is taking her to and together they will leaf size picker the Pt. at 12:30 after Pina's appt. Notified medical, Trimmer Helper and Nurse. CM to follow.
--- NOTE | 2023-05-22 14:52 | P.PNIM_ITS ---
Subjective Subjective Date of Service: 05/22/23 Interval History: seen and examined this morning follow up for seizure no overnight events feeling well, no specific complaints Review of Systems Review of Systems: Yes all other systems are reviewed and are negative Constitutional Constitutional: Denies chills and Denies fever(s) Cardiovascular Cardiovascular: Denies chest pain and Denies dyspnea Respiratory Respiratory: Denies dyspnea Gastrointestinal Gastrointestinal: Denies abdominal pain Physical Exam 2 Vital Signs: Vital Signs: Last Vital Signs Temp 97.8 F 05/22/23 11:02 Pulse 72 05/22/23 11:02 Resp 20 05/22/23 11:02 BP 118/53 L 05/22/23 11:02 Pulse Ox 94 05/22/23 11:02 O2 Del Method Nasal Cannula 05/22/23 11:02 O2 Flow Rate 2 05/22/23 11:02 BMI result Body Mass Index 16.4 Const: General: cooperative, comfortable, alert and awake Nutritional Appearance: thin Orientation/consciousness: patient oriented x3 Resp: Effort & Inspection: normal respiratory effort, able to speak in complete sentences, no respiratory distress and no use of accessory muscles Cardio: Rate: regular rate GI: Inspection: No distended Palpation (GI): Soft to palpation Neuro: Other: chronic right hemiparesis General: patient oriented x3 Objective Data Active Medications Acetaminophen (Acetaminophen 325 Mg Tablet) 650 mg PO Q6H PRN PRN Reason: Pain, Mild (Pain Scale 1-3) Last Admin: 05/21/23 17:47 Dose: 650 mg Documented By: MARY Al Hydroxide/Mg Hydroxide (Magnesium Hydrox/Alum Hydrox 30 Ml Oral.Susp) 30 ml PO Q4H PRN PRN Reason: Heartburn/Nausea Albuterol/Ipratropium (Albuterol/Iprat 2.5/0.5mg 3 Ml Ampul.Neb) 3 ml INHALE TID PRN PRN Reason: shortness of breath Last Admin: 05/21/23 14:36 Dose: 3 ml Documented By: GAVIN Amlodipine Besylate (Amlodipine Besylate 5 Mg Tablet) 5 mg PO DAILY [facility]; Protocol Last Admin: 05/22/23 08:30 Dose: 5 mg Documented By: POONAM Aspirin (Aspirin Enteric Coated 81 Mg Tablet.) 81 mg PO DAILY [facility] Last Admin: 05/22/23 08:29 Dose: 81 mg Documented By: POONAM Atorvastatin Calcium (Atorvastatin Calcium 40 Mg Tablet) 40 mg PO BEDTIME [facility] Last Admin: 05/21/23 21:33 Dose: 40 mg Documented By: SUZANNE Enoxaparin Sodium (Enoxaparin Sodium 40 Mg/0.4 Ml Syringe) 40 mg SUBCUT Q24H [facility] Last Admin: 05/22/23 01:45 Dose: 40 mg Documented By: SUZANNE Folic Acid (Folic Acid 1 Mg Tablet) 1 mg PO DAILY [facility] Last Admin: 05/22/23 08:29 Dose: 1 mg Documented By: POONAM Levetiracetam (Levetiracetam 500 Mg Tablet) 500 mg PO BID [facility] Last Admin: 05/22/23 08:29 Dose: 500 mg Documented By: POONAM Melatonin (Melatonin 3 Mg Tablet) 3 mg PO BEDTIME PRN PRN Reason: Insomnia Last Admin: 05/21/23 21:34 Dose: 3 mg Documented By: SUZANNE Metoprolol Tartrate (Metoprolol Tartrate 25 Mg Tablet) 25 mg PO BID [facility]; Protocol Last Admin: 05/22/23 08:29 Dose: 25 mg Documented By: POONAM Mirtazapine (Mirtazapine 30 Mg Tablet) 30 mg PO BEDTIME [facility] Last Admin: 05/21/23 21:33 Dose: 30 mg Documented By: SUZANNE Omeprazole (Omeprazole 20 Mg Capsule.Dr) 20 mg PO DAILY@0630 [facility] Last Admin: 05/22/23 05:49 Dose: 20 mg Documented By: HEATHER Ondansetron HCl (Ondansetron Hcl 4 Mg/2 Ml Vial) 4 mg IVPUSH Q8H PRN PRN Reason: Nausea and Vomiting Sertraline HCl (Sertraline Hcl 25 Mg Tablet) 25 mg PO DAILY [facility] Last Admin: 05/22/23 08:29 Dose: 25 mg Documented By: POONAM Sodium Chloride (0.9 % Sodium Chloride Flush 3 Ml Syringe) 3 ml IVFLUSH QSHIFT [facility] Last Admin: 05/22/23 08:30 Dose: 3 ml Documented By: POONAM Labs 05/17/23 22:44 05/19/23 14:17 Assessment and Plan (1) Seizure: Status: Acute Plan 57-year-old lady with underlying substance abuse, carotid artery stenosis status post CVA with residual right-sided hemiparesis, COPD with CO2 retention and chronic hypoxia on 2 L of oxygen here with transient aphasia and witnessed seizure,? CT head show no acute finding Seizure not on meds started on keppra per neuro rec Aphasia. resolved likely related to seizure and not stroke moderate protein calorie malnutrition add supplement speech/swallow>rec regular solids and thin liquids HTN continue norvasc and metoprolol Hx of CVA chronic right sided hemiparesis continue aspirin and statin Mental Health Sertraline and remeron GERD PPI chronic resp failure secondary to COPD no acute exacerbation resume home med on 2 liters home o2 DVT prophylaxis - jerricax Attending Dr. Seaman full code Time Spent With Patient Time: Total time managing care of this patient today ____ minutes. Quality Stroke Does the patient have a stroke diagnosis?: No VTE Prior VTE?: No VTE Risk Level:: Medical - moderate - high VTE Device Contraindication: Treatment Not Tolerated VTE Drug Contraindication: Treatment Not Tolerated
--- NOTE | 2023-05-22 15:27 | MHC.CM.PN ---
Noticed Pt. is utilizing O2 (and previous notes indicate she had it at home too). This CM attempted to call Pina back to remind her to bring a tank with her for Pt.'s pickle maker, or to offer ambulance for transport for an agreed upon time for D/C later today. No answer again. CM to follow.
--- NOTE | 2023-05-22 15:37 | MHC.CM.PN ---
Spoke w/nursing: if Pina arrives Tuesday05/23/23 without an O2 tank at the agreed upon time of 12:30 to sampler pickup Pt. to go home, CM dept could set up ambulance transport with Pina still physically present, so there would be an in-person agreed upon time to ensure that Pt. could gain access to her house. Medical notified as well and in agreement. CM to follow.
[2023-05-22] MEDS: Acetaminophen 325 MG TABLET 650 MG PO (16:09)
--- NOTE | 2023-05-22 17:02 | MHC.CM.PN ---
Filed report with [employer] via phone, . Then directed to file report in writing (completed online), case ID: [id number].
[2023-05-22] MEDS: Mirtazapine 30 MG TABLET PO (21:05)
[2023-05-22] MEDS: Atorvastatin Calcium 40 MG TABLET PO (21:05)
[2023-05-23] VITALS: BP 124/56; PULSE 64; RESP 20; TEMP 36.1; O2SAT 96
[2023-05-23] MEDS: Enoxaparin Sodium 40 MG/0.4 ML SYRINGE SUBCUT (02:05)
[2023-05-23 03:36] VITALS: BP 154/77; PULSE 64; RESP 20; TEMP 36.2; O2SAT 98
[2023-05-23] MEDS: Omeprazole 20 MG CAPSULE.DR PO (05:30)
[2023-05-23 07:41] VITALS: BP 128/60; PULSE 64; RESP 18; TEMP 36.3; O2SAT 95
[2023-05-23] MEDS: Acetaminophen 325 MG TABLET 650 MG PO (09:26)
[2023-05-23] MEDS: Metoprolol Tartrate 25 MG TABLET PO (09:27)
[2023-05-23] MEDS: amLODIPine Besylate 5 MG TABLET PO (09:27)
[2023-05-23] MEDS: levETIRAcetam 500 MG TABLET PO (09:27)
[2023-05-23] MEDS: Aspirin Enteric Coated 81 MG TABLET.DR PO (09:27)
[2023-05-23] MEDS: Sertraline HCL 25 MG TABLET PO (09:27)
[2023-05-23] MEDS: Folic Acid 1 MG TABLET PO (09:27)
[2023-05-23] MEDS: 0.9 % Sodium Chloride Flush 3 ML SYRINGE IVFLUSH (09:28)
[2023-05-23] MEDS: Albuterol/Iprat 2.5/0.5MG 3 ML AMPUL.NEB INHALE ×2 (11:30→16:12)
[2023-05-23 11:31] VITALS: PULSE 72; RESP 18; O2SAT 95
[2023-05-23 11:47] VITALS: BP 111/51; PULSE 68; RESP 16; TEMP 36.6; O2SAT 96
--- NOTE | 2023-05-23 12:07 | MHC.CLN ---
F/U PO INTAKE VARIABLE DIET RX: 2GM NA-APPROPRIATE PT RECEIVING ENSURE BID TO INCREASE KCALS PROVIDES 700KCALS, 40G PROTEIN WITH 100% ACCEPTANCE PT PREFERS CHOCOLATE FLAVOR CONTINUE TO MONITOR PO INTAKE CLOSELY
--- NOTE | 2023-05-23 12:24 | P.DS_ITS ---
DS: Providers Provider Date of Service: 05/23/23 Date of admission: 05/18/23 00:33 Primary care physician: Brianna Gonzalez MD Consults: 05/18/23 01:30 Consult to Neurology Routine Consulting Provider: [facility] Reason for consultation: seizure DS: Diagnosis Discharge Diagnosis (1) Seizure: Status: Acute DS: Summary Hospital Course Hospital Course: From H&P on day of admission 57-year-old female with past medical history of underlying substance abuse, carotid artery stenosis status post CVA with residual right-sided hemiparesis, CAD, major depression disorder,? takotsubo car diomyopathy, seizures desorder, COPD /asthma on baseline 2-3 L of oxyge.?She was brought to the ED as stroke alert due to word finding diffuculty and garbled speech, Stroke work up with CT showed just old stroke. She had a witnessed tonic clonic seizure in the ED and given 2 mg of Ativan and very lethargic at time of my evluation. Case was discussed with with neurology with conclusion that she would have been a candidate for thrombolytic or further work up if her presentation was stroke. 49-year-old woman treated for aphasia secondary to seizure. Patient had not been on any antiseizure/ antiepileptic medications home. She was seen and evaluated by Neurology who recommended starting Keppra. She had no further seizure episodes during inpatient hospitalization. The aphasia resolved. Seen evaluated by Physical therapy, chronic right-sided hemiparesis, patient at her functional baseline with no additional recommendations for physical therapy at this time. Patient will be sent home with daughter. Aphasia. Resolved. likely related to seizure and not stroke moderate protein calorie malnutrition add supplement speech/swallow>rec regular solids and thin liquids Hyponatremia. Resolved with IV fluid Hx of CVA chronic right sided hemiparesis. She was evaluated by Physical therapy, since she is at her functional baseline, no additional recommendations were made. She will return home where she lives with her daughter and to resume [employer] services. Time Spent with Patient Time attestation: Total time managing care of this patient today ____ minutes. Discharge coordination time: Greater than 30 minutes Quality: Safe Use of Opioids Does Pt have an Active Cancer Diagnosis on the Problem List?: No Quality: Stroke Does the patient have a stroke diagnosis?: No Physical Exam Vital Signs: Vital Signs: Last Vital Signs Temp 97.8 F 09/11/23 11:47 Pulse 68 05/23/23 11:47 Resp 16 05/23/23 11:47 BP 111/51 L 05/23/23 11:47 Pulse Ox 96 05/23/23 11:47 O2 Del Method Room Air, Nasal C annula 05/23/23 11:47 O2 Flow Rate 2 05/23/23 11:47 BMI result Body Mass Index 16.4 DS: Data Data Completed and Pending Completed studies during hospitalization [Text1]: Procedures Assistance with Respiratory Ventilation, 24-96 Consecutive Hours, Continuous Positive Airway Pressure (08/16/21) Assistance with Respiratory Ventilation, Less than 24 Consecutive Hours, Continuous Positive Airway Pressure (03/17/23) Insertion of Infusion Device into Superior Vena Cava, Percutaneous Approach (08/16/21) Introduction of Remdesivir Anti-infective into Central Vein, Percutaneous Approach, [employer] (08/16/21) Discharge Plan Discharge Anticipated Discharge Date/Time: 05/23/23 12:23 Patient Disposition: Home, Self-Care Discharge Diagnosis: seizure hyponatremia Referrals: Brianna Gonzalez MD [Primary Care Provider] - 1 Week Juliana Gonzalez MD [Physician] - 1 Month Discharge Medications: New levetiracetam 500 mg Tablet 500 mg PO BID 30 Days Qty: 60 0RF Continued folic acid 1 mg tablet 1 mg PO DAILY omeprazole 20 mg capsule,delayed release(DR/EC) 20 mg PO DAILY@0630 ipratropium-albuterol 0.5 mg-3 mg(2.5 mg base)/3 mL solution for nebulization 3 ml inhalation TID PRN (Reason: shortness of breath) atorvastatin 40 mg tablet 40 mg PO BEDTIME 14 Days Qty: 14 0RF amlodipine 5 mg tablet 5 mg PO DAILY 14 Days Qty: 14 0RF aspirin [Adult Low Dose Aspirin] 81 mg tablet,delayed release (DR/EC) 81 mg PO DAILY 14 Days Qty: 14 0RF mirtazapine 30 mg tablet 30 mg PO BEDTIME 14 Days Qty: 14 0RF sertraline 25 mg tablet 25 mg PO DAILY 14 Days Qty: 14 0RF metoprolol tartrate 25 mg tablet 25 mg PO BID 14 Days Qty: 28 0RF albuterol sulfate 90 mcg/actuation HFA aerosol inhaler 2 puff PO Q6H PRN (Reason: bronchospasm) 30 Days Qty: 6.7 5RF Discharge Orders: Discharge Order (Routine); Ordered 05/23/23 Ordered By: Debbi Morse Activity on Discharge: As tolerated Stand Alone Forms: Patient Portal Discharge page Care Plan Goals: see below Health Concerns: seizure hyponatremia Plan of Treatment: take keppra twice daily as prescribed do not drive, swim or bathe alone. call to schedule follow up appointment with neurology sodium levels normalized - recommend repeat levels on outpatient basis per patient and daughter, unable to get refills for baseline medications from PCP, will send 14 day supply to pharmacy - will need to call PCP's office for follow up Assessment: see discharge summary
--- NOTE | 2023-05-23 15:16 | MHC.CM.PN ---
CM spoke with Daughter/Pina at listed #; she is in agreement to Patient being dc to home today at 6PM, via [facility] and commits to being home in order to accept care for Patient.
[2023-05-23 16:14] VITALS: PULSE 74; RESP 16; O2SAT 97
== END 2023-05-23 18:57 | disposition home or self-care (01) | DRG 53 ==
LOC: HO.ED 05-18 00:06 → HO.EDOVER 05-18 00:33 → HO.IMC 05-18 09:34
PROVIDERS: Physician Assistant Medical; Admitting Provider Internal Medicine; Emergency Provider Emergency Medicine; PCP Internal Medicine; Visit Provider Nurse Practitioner Acute Care
DX: G40.409 Other generalized epilepsy and epileptic syndromes, not intractable, without status epilepticus (principal); J96.11 Chronic respiratory failure with hypoxia; E44.0 Moderate protein-calorie malnutrition; I50.32 Chronic diastolic (congestive) heart failure; I11.0 Hypertensive heart disease with heart failure; R47.01 Aphasia; J44.9 Chronic obstructive pulmonary disease, unspecified; E87.1 Hypo-osmolality and hyponatremia; I25.10 Atherosclerotic heart disease of native coronary artery without angina pectoris; F19.10 Other psychoactive substance abuse, uncomplicated; Z99.81 Dependence on supplemental oxygen; I69.351 Hemiplegia and hemiparesis following cerebral infarction affecting right dominant side; Z68.1 Body mass index [BMI] 19.9 or less, adult; F41.1 Generalized anxiety disorder; Z79.82 Long term (current) use of aspirin; Z79.899 Other long term (current) drug therapy
CPT/HCPCS: 36415; 70450; 71045; 80048; 82140; 82550; 82947; 83605; 84295; 84484; 85025; 85610; 85730; 92526; 92610; 93005; 94640; 97116; 97162; 99285; J1650; J1953; J2060

== ENCOUNTER → 2023-05-18 00:33 | Outpatient (BNV) | payer OTHER, SELFPAY | PROVIDERS: Admitting Provider Internal Medicine; Emergency Provider Emergency Medicine; Visit Provider Internal Medicine | DX: R56.9 Unspecified convulsions (principal) | CPT/HCPCS: 99223; 99231; 99232; 99239; 99499 ==

== ENCOUNTER 2023-06-24 11:02 | Outpatient (AMB) | payer OTHER, SELFPAY ==
--- NOTE | 2023-06-24 11:01 | A.OFFPC_ITS ---
Intake Visit Reasons: Med Follow Up ~ Allergies crab Allergy (Unknown, Verified 06/24/23 11:02) Hives penicillin V Allergy (Unknown, Verified 06/24/23 11:02) hives Penicillins [PENICILLINS] Allergy (Unknown, Verified 06/24/23 11:02) hives SEASONAL ALLERGIES Allergy (Mild, Uncoded 03/17/23 01:46) RUNNY NOSE Medication List - Last Reconciled 06/24/23 by Brianna Gonzalez MD albuterol sulfate 90 mcg/actuation 2 puffs PO Q6H PRN 30 days amlodipine 5 mg PO DAILY 90 days aspirin (Adult Low Dose Aspirin) 81 mg PO DAILY atorvastatin 40 mg PO BEDTIME folic acid 1 mg PO DAILY ipratropium-albuterol 0.5 mg-3 mg(2.5 mg base)/3 mL 3 mL inhalation TID PRN levetiracetam 500 mg PO BID 90 days metoprolol tartrate 25 mg PO BID 90 days mirtazapine 30 mg PO BEDTIME 14 days omeprazole 20 mg PO DAILY@0630 sertraline 25 mg PO DAILY Tobacco use date assessed: 06/24/23 Dental Screening Dental Screen Date: 06/24/23 Did you have a dental visit in the last 12 months?: No Did you have a dental problem in the last 6 months where you did not have access to dental care?: No Was dental information given to patient?: No HPI Med Follow Up ~ HPI Details Patient is 57-year-old female with underlying substance abuse history, carotid artery stenosis status post CVA with residual right-sided hemiparesis, history of seizure disorder, COPD with oxygen dependent hypoxia, on 2 L of supplemental oxygen, found to be unresponsive around 09:00 by [employer]LE[employer]ISTR[employer]. Patient was brought to [facility] She was found non coherent with right-sided gaze Normally she is bed ridden with limited ambulation with cane at home and has spastic paralysis of right upper extremity with weakness and right lower extremity but still can walk. Her neuro exam is documented as right-sided gaze, slurred speech and pre- existing spastic paralysis right upper extremity and weakness in right lower extremity She had CT scan done which showed no acute intracranial pathology Her labs showed hemoglobin of 10.6 , which is stable. platelet count of 237 and white count of 10.4 Sodium was 127 potassium 4.9 BUN 9 creatinine 0.69 GFR 60 Random glucose 101 EKG showed sinus tachycardia of 105, right axis deviation, no ST-T changes Chest x-ray did not show any acute finding CT scan showed old left frontoparietal infarct Patient was admitted with a diagnosis of acute seizure Hyponatremia was resolved with IV fluids Patient was able to swallow regular solid food and thin liquids She was evaluated by Physical therapy who which did not recommended any further interventions Patient was evaluated by Neurology as well I have tried to get her in as an outpatient with neurologist but patient has not gone. She is taking Levetiracetam 500 b.i.d. for seizures Her other medications are omeprazole 20 mg for GERD Ipratropium albuterol updraft treatments up to 3 times a day Atorvastatin 40 mg for lipid control Amlodipine 5 mg for blood pressure controlled Baby aspirin Mirtazapine 30 mg as a sleep aid Sertraline 25 mg for depression and anxiety Metoprolol 25 mg for blood pressure control We booked a telemedicine video conference today as a hospital discharge follow- up and to fill her medications Patient is in her usual state of health, she had nasal cannula in her nose on video All her medication refills were provided Her DIRECT[employer]LE[employer] ADMINISTRATION is her daughter who was there with the patient and assisted in video conference Regular follow-up appointment were discussed with the patient once again it is highly important that I see her every 3 month so we can continue prescriptions of medications and continue to monitor the side effects. I will book her another appointment in 3 months if patient cannot come into the office it is okay to do a telemedicine visit. But I prefer that she comes into the office. [facility] Medical History COPD (chronic obstructive pulmonary disease) History of acute respiratory distress syndrome (ARDS) (~08/2021) Seizure (~11/2021) History of non-ST elevation myocardial infarction (NSTEMI) (~11/2021) History of multiple cerebrovascular accidents (CVAs) Nicotine dependence, cigarettes, uncomplicated Cocaine abuse Respiratory failure with hypoxia Normocytic anemia History of drug abuse Major depression, recurrent Oxygen dependent Takotsubo cardiomyopathy Cocaine abuse Acute CHF (congestive heart failure) Hypercapnic respiratory failure, chronic Hemiparesis affecting right side as late effect of cerebrovascular accident Asymptomatic carotid artery stenosis with infarction Chronic GERD Environmental allergies Anxiety, generalized Lipid disorder Asthma, moderate Surgical History History of left-sided carotid endarterectomy (~09/2012) History of tonsillectomy and adenoidectomy Family History Father Substance abuse Mother Brain cancer Maternal Grandfather History of heart attack Maternal Grandmother History of heart attack Paternal Grandfather No problems noted. Paternal Grandmother No problems noted. Brother No problems noted. Brother No problems noted. Son No problems noted. Daughter No problems noted. Other Mental health disorder Social History Household Members: Children Housing: Condominium Do you presently have visiting nurse or other home services: No Unable to assess alcohol history related to: Refusing to respond Alcohol intake: unknown Patient Tobacco Use Status: Tobacco use Unknown Tobacco use type: Cigarette Cigarettes Per Day: 2 Years Smoked: 35 years e-Cigarette/Vaping Use: Never Used Second Hand Smoke Exposure: No Advance Directives Date on File: 11/25/21 service: No Current occupational status: disabled Cognitive needs: No Hearing needs: No Vision needs: No Questionnaire Thrive Questionnaire Date Thrive assessed: 05/18/23 AUDIT C Alcohol Use Questionnaire (AUDIT-C) 1. How often do you have a drink containing alcohol?: Never 3. How often do you have six or more drinks on one occasion?: Never Total Score: 0 Score Reviewed/Action Taken: Yes SAGAR-7 AMB Questionnaire SAGAR-7 Date SAGAR - 7 assessed: 10/20/22 Source: Developed by Drs. Hemant Eller, Sue Christensen, Jamey Drummond and colleagues, with an educational mario alberto from [employer]. Review of Systems Const Denies chills and Denies fever(s) ENT Denies epistaxis and Denies nasal discharge Card Denies chest pain Resp Denies chest congestion and Denies hemoptysis GI Denies diarrhea and Denies nausea Skin/Breast Denies rash Neuro Reports no additional complaints Psych Reports no additional complaints Endo Reports no additional complaints Physical exam (Primary Care) Tobacco/Smoking Status: Tobacco use Status Tobacco use date assessed 06/24/23 06/24/23 11:02 Patient Tobacco Use Status Tobacco use Unknown 06/24/23 11:02 Tobacco use type Cigarette 06/24/23 11:02 e-Cigarette/Vaping Use Never Used 06/24/23 11:02 Thrive Assessment: Date of Thrive Assessment Date Thrive assessed 05/18/23 06/24/23 11:02 Telehealth Telehealth Location of provider rendering services: practice address Location of patient: address on file Patient Identification confirmed using: Name, : Yes Telehealth method: video Patient verbally consented to treatment: Yes Patient verbally consented to billing insurance company: Yes Patient informed of any privacy concerns related to visit: Yes Assessment and Plan Assessment & Plan (1) Normocytic anemia: Code(s): D64.9 - Anemia, unspecified (2) Moderate malnutrition: Code(s): E44.0 - Moderate protein-calorie malnutrition (3) Chronic lung disease: Code(s): J98.4 - Other disorders of lung (4) Major depression, recurrent: Code(s): F33.9 - Major depressive disorder, recurrent, unspecified Qualifiers: Active/Remission status: in partial remission Qualified Code(s): F33.41 - Major depressive disorder, recurrent, in partial remission (5) Cardiomyopathy: Code(s): I42.9 - Cardiomyopathy, unspecified Qualifiers: Cardiomyopathy type: other Qualified Code(s): I42.8 - Other cardiomyopathies (6) Severe chronic obstructive pulmonary disease: Code(s): J44.9 - Chronic obstructive pulmonary disease, unspecified (7) Oxygen dependent: Code(s): Z99.81 - Dependence on supplemental oxygen (8) Difficulty sleeping: Code(s): G47.9 - Sleep disorder, unspecified (9) Muscle spasm: Code(s): M62.838 - Other muscle spasm (10) Hemiparesis affecting right side as late effect of cerebrovascular accident: Code(s): I69.351 - Hemiplegia and hemiparesis following cerebral infarction affecting right dominant side (11) Hospital discharge follow-up: Code(s): Z09 - Encounter for follow-up examination after completed treatment for conditions other than malignant neoplasm (12) History of CVA (cerebrovascular accident): Comment: (TIA 11/2011, CVA wiht left hemiparesis 01/2013 - resolved) Code(s): Z86.73 - Personal history of transient ischemic attack (TIA), and cerebral infarction without residual deficits (13) Hypercapnic respiratory failure: Code(s): J96.92 - Respiratory failure, unspecified with hypercapnia Qualifiers: Chronicity: chronic Qualified Code(s): J96.12 - Chronic respiratory failure with hypercapnia (14) Right sided weakness: Code(s): R53.1 - Weakness (15) Seizure disorder: Code(s): G40.909 - Epilepsy, unspecified, not intractable, without status epilepticus (16) Coronary artery disease: Code(s): I25.10 - Atherosclerotic heart disease of pok[place] coronary artery without angina pectoris Qualifiers: Associated angina: without angina Coronary Disease-Associated Artery/Lesion type: [place] artery [place] vs. transplanted heart: pokagon heart Qualified Code(s): I25.10 - Atherosclerotic heart disease of pok[place] coronary artery without angina pectoris (17) Supplemental oxygen dependent: Code(s): Z99.81 - Dependence on supplemental oxygen (18) COPD (chronic obstructive pulmonary disease): Code(s): J44.9 - Chronic obstructive pulmonary disease, unspecified Qualifiers: COPD type: emphysema Emphysema type: panlobular Qualified Code(s): J43.1 - Panlobular emphysema (19) Anemia: Code(s): D64.9 - Anemia, unspecified Qualifiers: Anemia type: iron deficiency Iron deficiency anemia type: inadequate dietary iron intake Qualified Code(s): D50.8 - Other iron deficiency anemias Plan Patient is 57-year-old female with underlying substance abuse history, carotid artery stenosis status post CVA with residual right-sided hemiparesis, history of seizure disorder, COPD with oxygen dependent hypoxia, on 2 L of supplemental oxygen, found to be unresponsive around 09:00 by DIRECTOR SELECTION AND ADMINISTRATION. Patient was brought to [facility] She was found non coherent with right-sided gaze Normally she is bed ridden with limited ambulation with cane at home and has spastic paralysis of right upper extremity with weakness and right lower extremity but still can walk. Her neuro exam is documented as right-sided gaze, slurred speech and pre- existing spastic paralysis right upper extremity and weakness in right lower extremity She had CT scan done which showed no acute intracranial pathology Her labs showed hemoglobin of 10.6 , which is stable. platelet count of 237 and white count of 10.4 Sodium was 127 potassium 4.9 BUN 9 creatinine 0.69 GFR 60 Random glucose 101 EKG showed sinus tachycardia of 105, right axis deviation, no ST-T changes Chest x-ray did not show any acute finding CT scan showed old left frontoparietal infarct Patient was admitted with a diagnosis of acute seizure Hyponatremia was resolved with IV fluids Patient was able to swallow regular solid food and thin liquids She was evaluated by Physical therapy who which did not recommended any further interventions Patient was evaluated by Neurology as well I have tried to get her in as an outpatient with neurologist but patient has not gone. She is taking Levetiracetam 500 b.i.d. for seizures Her other medications are omeprazole 20 mg for GERD Ipratropium albuterol updraft treatments up to 3 times a day Atorvastatin 40 mg for lipid control Amlodipine 5 mg for blood pressure controlled Baby aspirin Mirtazapine 30 mg as a sleep aid Sertraline 25 mg for depression and anxiety Metoprolol 25 mg for blood pressure control We booked a telemedicine video conference today as a hospital discharge follow- up and to fill her medications Patient is in her usual state of health, she had nasal cannula in her nose on video All her medication refills were provided Her DIRECTOR SELECTION AND ADMINISTRATION is her daughter who was there with the patient and assisted in video conference Regular follow-up appointment were discussed with the patient once again it is highly important that I see her every 3 month so we can continue prescriptions of medications and continue to monitor the side effects. I will book her another appointment in 3 months if patient cannot come into the office it is okay to do a telemedicine visit. But I prefer that she comes into the office. Medications: New omeprazole 20 mg PO DAILY@0630 90 caps 0RF Acid reflux Changed From amlodipine 5 mg PO DAILY 14 tabs 0RF 14 days To amlodipine 5 mg PO DAILY 90 tabs 0RF 90 days From aspirin (Adult Low Dose Aspirin) 81 mg PO DAILY 14 tabs 0RF 14 days To aspirin (Adult Low Dose Aspirin) 81 mg PO DAILY 90 tabs 0RF From sertraline 25 mg PO DAILY 14 tabs 0RF 14 days To sertraline 25 mg PO DAILY 90 tabs 0RF Depression From atorvastatin 40 mg PO BEDTIME 14 tabs 0RF 14 days To atorvastatin 40 mg PO BEDTIME 90 tabs 0RF Cholesterol From levetiracetam 500 mg PO BID 60 tabs 0RF 30 days To levetiracetam 500 mg PO BID 180 tabs 0RF Seizures 90 days From metoprolol tartrate 25 mg PO BID 28 tabs 0RF 14 days To metoprolol tartrate 25 mg PO BID 180 tabs 0RF 90 days Refilled mirtazapine 30 mg PO BEDTIME 90 tabs 0RF 14 days ipratropium-albuterol 0.5 mg-3 mg(2.5 mg base)/3 mL 3 mL inhalation TID PRN 180 mL 0RF shortness of breath Coding Level of Care Code Tele Est Pt Level 5 (93234) Diagnoses Normocytic anemia D64.9 Moderate malnutrition E44.0 Chronic lung disease J98.4 Recurrent major depressive disorder, in partial remission F33.41 Active/Remission status: in partial remission Other cardiomyopathy I42.8 Cardiomyopathy type: other Severe chronic obstructive pulmonary disease J44.9 Oxygen dependent Z99.81 Difficulty sleeping G47.9 Muscle spasm M62.838 Hemiparesis affecting right side as late effect of cerebrovascular accident I69.351 Hospital discharge follow-up Z09 History of CVA (cerebrovascular accident) Z86.73 Chronic respiratory failure with hypercapnia J96.12 Chronicity: chronic Right sided weakness R53.1 Seizure disorder G40.909 Coronary artery disease involving pokagon coronary artery of pokagon heart without angina pectoris I25.10 Associated angina: without angina Coronary Disease-Associated Artery/Lesion type: [place] artery [place] vs. transplanted heart: pok[place] heart Panlobular emphysema J43.1 COPD type: emphysema Emphysema type: panlobular Iron deficiency anemia secondary to inadequate dietary iron intake D50.8 Anemia type: iron deficiency Iron deficiency anemia type: inadequate dietary iron intake Time Spent (min) 45 Comment 10 min prep, 20 with patient, 15 minute documentation, coordination of care
== END 2023-06-24 12:08 | disposition home or self-care (01) ==
LOC: HO.HMGC 11:02
PROVIDERS: PCP Internal Medicine; Visit Provider Internal Medicine
DX: D64.9 Anemia, unspecified (principal); E44.0 Moderate protein-calorie malnutrition; F33.41 Major depressive disorder, recurrent, in partial remission; I42.8 Other cardiomyopathies; J44.9 Chronic obstructive pulmonary disease, unspecified; I69.351 Hemiplegia and hemiparesis following cerebral infarction affecting right dominant side; J96.12 Chronic respiratory failure with hypercapnia; G40.909 Epilepsy, unspecified, not intractable, without status epilepticus; J43.1 Panlobular emphysema; Z99.81 Dependence on supplemental oxygen; J98.4 Other disorders of lung; Z86.73 Personal history of transient ischemic attack (TIA), and cerebral infarction without residual deficits
CPT/HCPCS: 99215

== ENCOUNTER 2023-07-21 18:33 | Emergency (ER) | payer OTHER, SELFPAY ==
--- NOTE | ~2023-07-21 | XR_ITS ---
EXAMINATION: XR CHEST CLINICAL INFORMATION: Generalized weakness. COMPARISON: Chest radiograph 05/17/2023. TECHNIQUE: Frontal view of the chest was obtained. FINDINGS: Stable cardiomediastinal silhouette. Background of air-trapping and emphysema. New focal airspace opacities projecting over the right lower lobe. No significant pleural effusion. No pneumothorax. No acute osseous findings. XR/XR chest 1V IMPRESSION: New focal airspace opacities in the right lower lobe concerning for aspiration or pneumonia. Recommend a follow-up examination after treatment to ensure resolution.
[2023-07-21 18:48] VITALS: BP 162/62; PULSE 71; O2SAT 100
--- NOTE | 2023-07-21 19:49 | ECG_ITS ---
Test Reason : weakness Blood Pressure : / mmHG Vent. Rate : 074 BPM Atrial Rate : 074 BPM P-R Int : 148 ms QRS Dur : 090 ms QT Int : 400 ms P-R-T Axes : 084 095 086 degrees QTc Int : 444 ms Normal sinus rhythm Rightward axis Minimal voltage criteria for LVH, may be normal variant ( [place] product ) Borderline ECG When compared with ECG of 18-MAY-2023 00:09, T wave amplitude has decreased in Septal leads Referred By: Diamante Medrano Electronically Signed By:JANIA ALVAREZ MD
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
[2023-07-21 19:51] VITALS: BMI 15.2
[2023-07-21 19:56] VITALS: BP 184/60; PULSE 80; RESP 22; TEMP 36.9; O2SAT 98
[2023-07-21] MEDS: 0.9 % Sodium Chloride 1,000 ML 999 ML IV (20:02)
[2023-07-21 20:30] LABS: MANUAL DIFF FLAG NO
[2023-07-21 20:32] LABS: Appearance Urine Clear; Color Urine Yellow; Glucose Urine UA Negative (Negative); Leukocyte Esterase Urine Negative (Negative); Nitrite Urine Negative (Negative); Specific Gravity - Urine <= 1.005 (1.005-1.025); Urine Blood Negative (Negative); Urine Ketones Negative (Negative); Urine Protein Negative (Neg-Trace)
[2023-07-21 20:39] LABS: Basophils Percent Auto 0.3 % (0-2); Eosinophils Percent Auto 0.4 % (0-4); Hematocrit 30.5 % (37.0-47.0); Hemoglobin 9.2 g/dl (12.0-16.0); Imm Gran Abs Auto 0.03 X10*3/uL (0.00-0.03); Imm Gran Pct Auto 0.3 % (0.0-0.4); Lymphocytes Absolute Auto 1.3 X10*3/uL (1.2-4.9); Lymphocytes Percent Auto 14.8 % (20-40); Mean Corpuscular HGB Conc 30.2 g/dl (31.0-35.0); Mean Corpuscular Hemoglobin 26.4 pg (27.0-33.0); Mean Corpuscular Volume 87.4 fL (80.0-98.0); Mean Platelet Volume 9.5 fL (9.4-12.3); Monocytes Percent Auto 10.7 % (2-11); Neutrophils Absolute Auto 6.6 x10*3/uL (2.0-8.3); Neutrophils Percent Auto 73.5 % (45-73); Platelet Count 510 X10*3/uL (160-400); Red Blood Count 3.49 X10*6/uL (4.20-5.50); Red Cell Distribution Width 12.5 % (11.0-16.0)
[2023-07-21 20:42] LABS: Lactic Acid 0.7 mmol/L (0.5-2.0)
[2023-07-21 20:51] LABS: Alanine Aminotransferase 7 U/L (0-31); Albumin Level 3.4 g/dL (3.5-5.0); Alkaline Phosphatase 63 U/L (39-117); Anion Gap 10 (12-20); Aspartate Amino Transferase 19 U/L (5-31); B Type Natriuretic Peptide 36 pg/mL (<100); Bilirubin Direct < 0.2 mg/dL (0.0-0.5); Bilirubin Total 0.1 mg/dL (0.0-1.0); Blood Urea Nitrogen 6 mg/dL (9-16); Calcium 9.5 mg/dL (8.4-10.2); Carbon Dioxide 49 mmol/L (22-29); Chloride 84 mmol/L (96-108); Estimated Glomerular Filt Rate > 60; Glucose Random 94 mg/dL (60-115); Lipase 59 U/L (8-78); Potassium 3.6 mmol/L (3.3-5.1); Sodium 139 mmol/L (135-145); Total Protein 6.7 g/dL (6.5-8.0)
[2023-07-21 20:54] LABS: Troponin-I High Sensitivity < 2.7 ng/L (<3.5-17.0)
[2023-07-21 21:08] LABS: Influenza A PCR NEGATIVE (Negative); Influenza B PCR NEGATIVE (Negative); Resp Syncy Virus RNA Qual PCR NEGATIVE (Negative); SARS COV2 PCR INHOUSE NEGATIVE (Negative)
[2023-07-21 22:32] VITALS: BP 177/52; PULSE 73; RESP 18; TEMP 37; O2SAT 97
[2023-07-21] MEDS: Doxycycline Monohydrate 100 MG CAPSULE PO (23:50)
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
--- NOTE | 2023-07-22 02:55 | PC.NURSE ---
tabitha rec performed utilizing medical record
[2023-07-22] MEDS: Mirtazapine 30 MG TABLET PO (03:58)
[2023-07-22 06:19] VITALS: BP 155/61; PULSE 87; RESP 18; TEMP 36.1; O2SAT 100
--- NOTE | 2023-07-22 06:37 | PC.NURSE ---
this rn attempted to medicate pt according to mar with po omeprazole. pt drowsy due to sleeping medication this rn instructed pt to wake up a bit more prior to taking med. pt refusing medication. documented in mar accordingly
--- NOTE | 2023-07-22 08:54 | PC.NURSE ---
pt moved over to overflow and report given to lorene giordano
[2023-07-22] MEDS: Aspirin Enteric Coated 81 MG TABLET.DR PO (09:48)
[2023-07-22] MEDS: Sertraline HCL 25 MG TABLET PO (09:48)
[2023-07-22] MEDS: Metoprolol Tartrate 25 MG TABLET PO (09:48)
[2023-07-22] MEDS: amLODIPine Besylate 5 MG TABLET PO (09:48)
[2023-07-22] MEDS: levETIRAcetam 500 MG TABLET PO (09:48)
[2023-07-22] MEDS: Folic Acid 1 MG TABLET PO (09:49)
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
[2023-07-22 11:17] VITALS: PULSE 96; RESP 20; O2SAT 87
[2023-07-22] MEDS: Doxycycline Monohydrate 100 MG CAPSULE PO (13:56)
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
[2023-07-22 15:43] VITALS: BP 135/61; PULSE 80; RESP 16; TEMP 37.5; O2SAT 96
--- NOTE | 2023-07-22 17:02 | MHC.EDTECH ---
This pct assumed care of pt at 1500 ,vitals taken ,pt was assisted unto bedpan ,and void ,Patient was set up for dinner ate 100 % of meal and drank 240 ml елена susi ,Patient watching television waiting for her ride to go home .
--- NOTE | 2023-07-22 18:04 | MHC.EDTECH ---
Patient was assisted to get dress to go home .
== END 2023-07-22 18:15 | disposition home or self-care (01) ==
PROVIDERS: Emergency Provider Emergency Medicine; PCP Internal Medicine
DX: J18.9 Pneumonia, unspecified organism (principal); Z20.828 Contact with and (suspected) exposure to other viral communicable diseases; Z20.822 Contact with and (suspected) exposure to COVID-19; R53.1 Weakness; F19.10 Other psychoactive substance abuse, uncomplicated; I69.351 Hemiplegia and hemiparesis following cerebral infarction affecting right dominant side; J44.9 Chronic obstructive pulmonary disease, unspecified; J96.12 Chronic respiratory failure with hypercapnia; F17.210 Nicotine dependence, cigarettes, uncomplicated; Z99.81 Dependence on supplemental oxygen; Z79.82 Long term (current) use of aspirin; Z79.899 Other long term (current) drug therapy
CPT/HCPCS: 0241U; 36415; 51701; 71045; 80048; 80076; 81003; 83605; 83690; 83880; 84484; 85025; 87040; 93005; 96360; 96361; 99285

== ENCOUNTER 2023-09-22 08:53 | Outpatient (AMB) | payer OTHER, SELFPAY ==
--- NOTE | 2023-09-22 09:11 | A.OFFPC_ITS ---
Intake Visit Reasons: 3 month f/u Med [phone] Allergies crab Allergy (Unknown, Verified 06/24/23 11:02) Hives penicillin V Allergy (Unknown, Verified 06/24/23 11:02) hives Penicillins [PENICILLINS] Allergy (Unknown, Verified 06/24/23 11:02) hives SEASONAL ALLERGIES Allergy (Mild, Uncoded 03/17/23 01:46) RUNNY NOSE Medication List - Last Reconciled 09/22/23 by Brianna Gonzalez MD albuterol sulfate 90 mcg/actuation 2 puffs PO Q6H PRN 30 days amlodipine 5 mg PO DAILY 90 days aspirin (Adult Low Dose Aspirin) 81 mg PO DAILY atorvastatin 40 mg PO BEDTIME folic acid 1 mg PO DAILY ipratropium-albuterol 0.5 mg-3 mg(2.5 mg base)/3 mL 3 mL inhalation TID PRN levetiracetam 500 mg PO BID 90 days metoprolol tartrate 25 mg PO BID 90 days mirtazapine 30 mg PO BEDTIME 14 days omeprazole 20 mg PO DAILY@0630 sertraline 25 mg PO DAILY Tobacco use date assessed: 09/22/23 Dental Screening Dental Screen Date: 09/22/23 Did you have a dental visit in the last 12 months?: No Did you have a dental problem in the last 6 months where you did not have access to dental care?: No Was dental information given to patient?: No HPI 3 month f/u Med [phone] HPI Details Patient is 57-year-old female with severe COPD oxygen dependent Her other medical problems are severe depression history of drug abuse, cardiomyopathy, seizure disorder, history of stroke with hemiparesis, lipid disorder, difficulty sleeping, GERD, hypertension Patient was in hospital July of last year Her last hemoglobin was 9 Discussed with the patient it is very important that we recheck H&H She understand and will come to the lab within next 1 week Medication list reviewed with the patient All refills sent Follow-up 3 months or early pending labs I have also encouraged patient to follow-up with the health specialist I see that she has not seen them since March of last year. Patient says that she had appointment but she ended up in a hospital that day I have sent message to Pulmonary office to report appointment for the patient. [facility] Medical History COPD (chronic obstructive pulmonary disease) History of acute respiratory distress syndrome (ARDS) (~08/2021) Seizure (~11/2021) History of non-ST elevation myocardial infarction (NSTEMI) (~11/2021) History of multiple cerebrovascular accidents (CVAs) Nicotine dependence, cigarettes, uncomplicated Cocaine abuse Respiratory failure with hypoxia Normocytic anemia History of drug abuse Major depression, recurrent Oxygen dependent Takotsubo cardiomyopathy Cocaine abuse Acute CHF (congestive heart failure) Hypercapnic respiratory failure, chronic Hemiparesis affecting right side as late effect of cerebrovascular accident Asymptomatic carotid artery stenosis with infarction Chronic GERD Environmental allergies Anxiety, generalized Lipid disorder Asthma, moderate Surgical History History of left-sided carotid endarterectomy (~09/2012) History of tonsillectomy and adenoidectomy Family History Father Substance abuse Mother Brain cancer Maternal Grandfather History of heart attack Maternal Grandmother History of heart attack Paternal Grandfather No problems noted. Paternal Grandmother No problems noted. Brother No problems noted. Brother No problems noted. Son No problems noted. Daughter No problems noted. Other Mental health disorder Social History Household Members: Children [facility] Do you presently have visiting nurse or other home services: No Unable to assess alcohol history related to: Refusing to respond Alcohol intake: unknown Patient Tobacco Use Status: Tobacco use Unknown Tobacco use type: Cigarette Cigarettes Per Day: 2 Years Smoked: 35 years e-Cigarette/Vaping Use: Never Used Second Hand Smoke Exposure: No Advance Directives Date on File: 11/25/21 service: No Current occupational status: disabled Cognitive needs: No Hearing needs: No Vision needs: No Questionnaire Thrive Questionnaire Date Thrive assessed: 05/18/23 SAGAR-7 AMB Questionnaire SAGAR-7 Date SAGAR - 7 assessed: 10/20/22 Source: Developed by Drs. Hemant Eller, Sue Christensen, Jamey Drummond and colleagues, with an educational mario alberto from [employer]. Review of Systems Const Denies chills and Denies fever(s) ENT Denies epistaxis and Denies nasal discharge Card Denies chest pain Resp Denies chest congestion and Denies hemoptysis GI Denies diarrhea and Denies nausea Skin/Breast Denies rash Neuro Reports no additional complaints Psych Reports no additional complaints Endo Reports no additional complaints Physical exam (Primary Care) Tobacco/Smoking Status: Tobacco use Status Tobacco use date assessed 09/22/23 09/22/23 09:13 Patient Tobacco Use Status Tobacco use Unknown 09/22/23 09:13 Tobacco use type Cigarette 09/22/23 09:13 e-Cigarette/Vaping Use Never Used 09/22/23 09:13 Thrive Assessment: Date of Thrive Assessment Date Thrive assessed 05/18/23 09/22/23 09:13 Telehealth Telehealth Location of provider rendering services: practice address Location of patient: address on file Patient Identification confirmed using: Name, : Yes Telehealth method: video (attempted) Patient verbally consented to treatment: Yes Patient verbally consented to billing insurance company: Yes Patient informed of any privacy concerns related to visit: Yes Assessment and Plan Assessment & Plan (1) Anemia: Code(s): D64.9 - Anemia, unspecified Qualifiers: Anemia type: iron deficiency Iron deficiency anemia type: inadequate dietary iron intake Qualified Code(s): D50.8 - Other iron deficiency anemias (2) COPD (chronic obstructive pulmonary disease): Code(s): J44.9 - Chronic obstructive pulmonary disease, unspecified Qualifiers: COPD type: emphysema Emphysema type: panlobular Qualified Code(s): J43.1 - Panlobular emphysema (3) Supplemental oxygen dependent: Code(s): Z99.81 - Dependence on supplemental oxygen (4) Coronary artery disease: Code(s): I25.10 - Atherosclerotic heart disease of [place] coronary artery without angina pectoris Qualifiers: Associated angina: without angina Coronary Disease-Associated Artery/Lesion type: [place] artery [place] vs. transplanted heart: [place] heart Qualified Code(s): I25.10 - Atherosclerotic heart disease of [place] coronary artery without angina pectoris (5) Major depression, recurrent: Code(s): F33.9 - Major depressive disorder, recurrent, unspecified Qualifiers: Active/Remission status: in partial remission Qualified Code(s): F33.41 - Major depressive disorder, recurrent, in partial remission (6) Seizure: Onset Date: ~11/2021 Comment: (new onset seizure and NSTEMI - [facility] admit 11/2021) Code(s): R56.9 - Unspecified convulsions (7) Takotsubo cardiomyopathy: Code(s): I51.81 - Takotsubo syndrome (8) History of multiple cerebrovascular accidents (CVAs): Comment: (TIA 11/2011; CVA/left hemiparesis 01/2013 - resolved;b/l L>R [place] infarcts 04/2016) Code(s): Z86.73 - Personal history of transient ischemic attack (TIA), and cerebral infarction without residual deficits (9) Hemiparesis affecting right side as late effect of cerebrovascular accident: Code(s): I69.351 - Hemiplegia and hemiparesis following cerebral infarction affecting right dominant side Plan Patient is 57-year-old female with severe COPD oxygen dependent Her other medical problems are severe depression history of drug abuse, cardiomyopathy, seizure disorder, history of stroke with hemiparesis, lipid disorder, difficulty sleeping, GERD, hypertension Patient was in hospital July of last year Her last hemoglobin was 9 Discussed with the patient it is very important that we recheck H&H She understand and will come to the lab within next 1 week Medication list reviewed with the patient All refills sent Follow-up 3 months or early pending labs I have also encouraged patient to follow-up with the health specialist I see that she has not seen them since March of last year. Patient says that she had appointment but she ended up in a hospital that day I have sent message to Pulmonary office to report appointment for the patient. Orders: Orders Complete Blood Count Auto Diff Today D64.9 - Anemia, unspecified, F33.9 - Major depressive disorder, recurrent, unspecified, I25.10 - Atherosclerotic heart disease of [place] coronary artery without angina pectoris, I51.81 - Tak[place]ubo syndrome, I69.351 - Hemiplegia and hemiparesis following cerebral infarction affecting right dominant side, J44.9 - Chronic obstructive pulmonary disease, unspecified, R56.9 - Unspecified convulsions, Z86.73 - Personal history of transient ischemic attack (TIA), and cerebral infarction without residual deficits, Z99.81 - Dependence on supplemental oxygen Comprehensive Met. Panel Today D64.9 - Anemia, unspecified, F33.9 - Major depressive disorder, recurrent, unspecified, I25.10 - Atherosclerotic heart disease of [place] coronary artery without angina pectoris, I51.81 - [place]o syndrome, I69.351 - Hemiplegia and hemiparesis following cerebral infarction affecting right dominant side, J44.9 - Chronic obstructive pulmonary disease, unspecified, R56.9 - Unspecified convulsions, Z86.73 - Personal history of transient ischemic attack (TIA), and cerebral infarction without residual deficits, Z99.81 - Dependence on supplemental oxygen Ferritin Today D64.9 - Anemia, unspecified, F33.9 - Major depressive disorder, recurrent, unspecified, I25.10 - Atherosclerotic heart disease of [place] coronary artery without angina pectoris, I51.81 - [place] syndrome, I69.351 - Hemiplegia and hemiparesis following cerebral infarction affecting right dominant side, J44.9 - Chronic obstructive pulmonary disease, unspecified, R56.9 - Unspecified convulsions, Z86.73 - Personal history of transient ischemic attack (TIA), and cerebral infarction without residual deficits, Z99.81 - Dependence on supplemental oxygen Folate Today D64.9 - Anemia, unspecified, F33.9 - Major depressive disorder, recurrent, unspecified, I25.10 - Atherosclerotic heart disease of [place] coronary artery without angina pectoris, I51.81 - [place] syndrome, I69.351 - Hemiplegia and hemiparesis following cerebral infarction affecting right dominant side, J44.9 - Chronic obstructive pulmonary disease, unspecified, R56.9 - Unspecified convulsions, Z86.73 - Personal history of transient ischemic attack (TIA), and cerebral infarction without residual deficits, Z99.81 - Dependence on supplemental oxygen Vitamin B12 Today D64.9 - Anemia, unspecified, F33.9 - Major depressive disorder, recurrent, unspecified, I25.10 - Atherosclerotic heart disease of [place] coronary artery without angina pectoris, I51.81 - [place] syndrome, I69.351 - Hemiplegia and hemiparesis following cerebral infarction affecting right dominant side, J44.9 - Chronic obstructive pulmonary disease, unspecified, R56.9 - Unspecified convulsions, Z86.73 - Personal history of transient ischemic attack (TIA), and cerebral infarction without residual deficits, Z99.81 - Dependence on supplemental oxygen Medications: New folic acid 1 mg PO DAILY 90 tabs 0RF Changed From mirtazapine 30 mg PO BEDTIME 14 days 90 tabs 0RF To mirtazapine 30 mg PO BEDTIME 90 tabs 0RF 90 days Refilled atorvastatin 40 mg PO BEDTIME 90 tabs 0RF Cholesterol metoprolol tartrate 25 mg PO BID 180 tabs 0RF 90 days omeprazole 20 mg PO DAILY@0630 90 caps 0RF Acid reflux sertraline 25 mg PO DAILY 90 tabs 0RF Depression amlodipine 5 mg PO DAILY 90 tabs 0RF 90 days aspirin (Adult Low Dose Aspirin) 81 mg PO DAILY 90 tabs 0RF levetiracetam 500 mg PO BID 180 tabs 0RF Seizures 90 days Coding Level of Care Code Tele Est Pt Level 4 (50703) Diagnoses Iron deficiency anemia secondary to inadequate dietary iron intake D50.8 Anemia type: iron deficiency Iron deficiency anemia type: inadequate dietary iron intake Panlobular emphysema J43.1 COPD type: emphysema Emphysema type: panlobular Supplemental oxygen dependent Z99.81 Coronary artery disease involving [place] coronary artery of [place] heart without angina pectoris I25.10 Associated angina: without angina Coronary Disease-Associated Artery/Lesion type: [place] artery [place] vs. transplanted heart: [place] heart Recurrent major depressive disorder, in partial remission F33.41 Active/Remission status: in partial remission Seizure R56.9 [place] cardiomyopathy I51.81 History of multiple cerebrovascular accidents (CVAs) Z86.73 Hemiparesis affecting right side as late effect of cerebrovascular accident I69.351 Comment 5 prep, 16 with patient, 9 charting/ refill meds / labs
== END 2023-09-22 15:53 | disposition home or self-care (01) ==
PROVIDERS: PCP Internal Medicine; Visit Provider Internal Medicine
DX: J43.1 Panlobular emphysema (principal); F33.41 Major depressive disorder, recurrent, in partial remission; R56.9 Unspecified convulsions; I69.351 Hemiplegia and hemiparesis following cerebral infarction affecting right dominant side; D50.8 Other iron deficiency anemias; Z99.81 Dependence on supplemental oxygen; I25.10 Atherosclerotic heart disease of native coronary artery without angina pectoris; I51.81 Takotsubo syndrome; Z86.73 Personal history of transient ischemic attack (TIA), and cerebral infarction without residual deficits
CPT/HCPCS: 99214

== ENCOUNTER 2023-09-24 03:50 | Inpatient (IN) | payer OTHER, SELFPAY ==
[2023-09-24] VITALS (14 sets, daily range): BP systolic 99–180; BP diastolic 6–84; PULSE 74–142; RESP 14–22; TEMP 36.4–37.4; O2SAT 89–100; BMI 15.2
--- NOTE | ~2023-09-24 | FL_ITS ---
EXAMINATION: XR FLUOROSCOPY WITH IMAGES CLINICAL INFORMATION: Right hip cannulated screw fixation. COMPARISON: September 24, 2023. TECHNIQUE: Fluoroscopy Supervised By: Dr. Vicente Peralta. Fluoroscopy Time: 0.6 minutes. Cumulative Dose: 5.18 mGy. DAP: 0.0901 mGy-cm2. Images: 2. FINDINGS: 3 cannulated screws are seen for fixation of a subcapital fracture of the right proximal femur. FL/FL guidance in OR IMPRESSION: Intraoperative fluoroscopy for orthopedic procedure.
--- NOTE | ~2023-09-24 | XR_ITS ---
EXAMINATION: XR CHEST CLINICAL INFORMATION: Hemoptysis COMPARISON: September 24, 2023 TECHNIQUE: Frontal view of the chest was obtained. FINDINGS: The lungs remain hyperinflated. Bilateral diffuse interstitial parenchymal markings redemonstrated, possibly related to COPD. Persistent focal dense airspace opacity in the right lung base appears similar. Possible increased retrocardiac opacity difficult to confirm on single frontal view. There is no gross pneumothorax. Heart size is normal. XR/XR chest 1V IMPRESSION: 1. Persistent focal dense airspace opacity in the right lung base appear similar. Possible increased retrocardiac opacity difficult to confirm on single frontal view. CT scan of the chest recommended for further evaluation. This study was presented today, October 05, 2023 at 12:53 PM for interpretation. Stat results provided at this time as requested by referring provider.
--- NOTE | ~2023-09-24 | XR_ITS ---
EXAMINATION: XR CHEST CLINICAL INFORMATION: Fall COMPARISON: 07/21/2023 TECHNIQUE: Frontal view of the chest was obtained. FINDINGS: Lungs are mildly hyperexpanded. Architectural distortion of the lung parenchyma is most consistent with underlying centrilobular emphysema. Focal dense airspace opacification in the right lung base is unchanged as compared to prior. Opacity at the left lung base is resolved. No new airspace opacities. Cardiac and mediastinal contours are normal. Bones are osteopenic. No acute osseous findings. XR/XR chest 1V IMPRESSION: 1. Pulmonary emphysema. No acute pulmonary findings. 2. Persistent focal airspace opacification in the right lung base as compared to 07/21/2023. Recommend follow-up CT to exclude an underlying lesion. 3. Emphysema.
--- NOTE | ~2023-09-24 | XR_ITS ---
EXAMINATION: XR ELBOW, RIGHT CLINICAL INFORMATION: Fall. COMPARISON: None available. TECHNIQUE: AP, lateral, and oblique views of the right elbow. FINDINGS: Bones are osteopenic. No acute fracture or malalignment. No appreciable elbow joint effusion. Assessment is slightly limited on the AP views due to the fixed flexed positioning of the elbow. Soft tissues are unremarkable. XR/XR elbow RT 2V IMPRESSION: No acute fracture or malalignment. Osteopenia.
--- NOTE | ~2023-09-24 | XR_ITS ---
EXAMINATION: XR HIP, RIGHT CLINICAL INFORMATION: Fall COMPARISON: None available. TECHNIQUE: AP view of the pelvis and AP and frog-leg lateral views of the right proximal femur. FINDINGS: There is an acute valgus impacted subcapital fracture of the right proximal femur. Femoral head remains appropriately situated at the acetabulum. Bones are osteopenic. No additional fractures are identified. Hip joints appear relatively well-preserved, as do the SI joints. Soft tissues are swollen around the right hip. XR/XR hip RT min 2V IMPRESSION: Acute valgus impacted subcapital fracture of the right proximal femur.
--- NOTE | ~2023-09-24 | XR_ITS ---
EXAMINATION: XR HAND, RIGHT CLINICAL INFORMATION: Fall COMPARISON: None available. TECHNIQUE: AP and lateral views of the right hand. FINDINGS: Bones are osteopenic. No acute fracture or malalignment. Assessment of the carpals, metacarpals, and phalanges is somewhat limited due to the fixed flexed positioning. Mild osteoarthritis is suspected at the triscaphe and first CMC joints. Soft tissues are unremarkable. XR/XR hand RT min 3V IMPRESSION: 1. No acute fracture or malalignment. Sensitivity is slightly limited by clenched hand positioning. 2. Osteopenia. 3. 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
--- NOTE | ~2023-09-24 | XR_ITS ---
EXAMINATION: XR HIP, RIGHT CLINICAL INFORMATION: Status post CT are BP COMPARISON: Right hip 09/24/2023 and 09/25/2023 TECHNIQUE: Two views of the right hip. FINDINGS: There are 3 cannulated screws through the right femoral neck for stabilizing right femoral neck fracture. There is no change from the previous exam 09/25/2023. There is no dislocation. The left hip and rest the pelvis is unremarkable. XR/XR hip RT w PEL1V IMPRESSION: Stabilized right femoral neck fracture with [address] The fracture fragments are in alignment. No change from 09/24/2023 exam.
--- NOTE | ~2023-09-24 | CT_ITS ---
EXAMINATION: CT CHEST WITH CONTRAST CLINICAL INFORMATION: Right lung base abnormality COMPARISON: Chest x-ray 10/05/2023 and CTA chest 08/16/2020 TECHNIQUE: Multidetector volumetric CT imaging of the chest was obtained after the administration of 65 mL of Omnipaque 350 intravenous contrast without immediate adverse reactions. Axial MIP volume rendering provided. Sagittal and coronal reformatted images were obtained. This CT examination was performed using dose optimization techniques as appropriate, variously including the following: *Automated exposure control *Adjustment of mA and/or kV according to patient size (this includes techniques or standardized protocols for targeted exams where dose is matched to indication/reason for exam; i.e. extremities or head) *Use of iterative reconstruction technique DLP: 55 mGy-cm FINDINGS: Central airways are patent. Lungs are well aerated. There are moderate emphysematous changes noted. Linear opacities within the posterior aspects of both upper lobes is most suggestive of scarring. There is a focal region of the irregularly-shaped consolidative opacity within the right lower lobe with some associated pleural tethering, nonspecific. There is a 9 mm pleural-based nodular density/pulmonary nodule of the right lung base (image 143/162, series 7). There is a 9 mm pleural-based pulmonary nodule versus nodularity of the lateral left lower lobe (image 115). A few other 1 to 3 mm pulmonary micronodules are scattered throughout the lungs. No pleural effusion or pneumothorax. The heart is normal in size. Coronary artery calcifications are present. There is no pericardial effusion. Normal caliber thoracic aorta. Visualized portions of the proximal left common carotid artery again appears to be occluded. No gross mediastinal or hilar lymphadenopathy is appreciated. No pathologically enlarged axillary lymph nodes. Visualized portions of the upper abdomen are grossly unremarkable. Mild diffuse degenerative changes of the spine. CT/CT chest w IV con IMPRESSION: 1. Focal region of the irregularly-shaped consolidative opacity within the right lower lobe with some associated pleural tethering. This is a nonspecific finding and may represent an infectious or inflammatory process, however, a neoplastic process is not excluded. 2. A few pulmonary nodules/nodular densities are present, the largest measuring 9 mm. 3. Emphysema. According to the UPDATED 2017 Fleischner Society recommendations, the advised follow-up imaging for multiple solid nodules, the largest measuring 6 mm or greater, is: LOW RISK PATIENT: CT at 3-6 months, then consider CT at 18-24 months. HIGH RISK PATIENT: CT at 3-6 months, then at 18-24 months.
--- NOTE | ~2023-09-24 | CT_ITS ---
EXAMINATION: HEAD CT WITHOUT CONTRAST CERVICAL SPINE CT WITHOUT CONTRAST CLINICAL INFORMATION: Head trauma. COMPARISON: 05/17/2023 TECHNIQUE: Contiguous axial imaging of the head was performed without the administration of IV contrast. Axial multidetector volumetric images were also performed through the cervical spine without intravenous contrast. Multiplanar reconstructed images in coronal and sagittal orientations were submitted. This CT examination was performed using dose optimization techniques as appropriate, variously including the following: *Automated exposure control *Adjustment of mA and/or kV according to patient size (this includes techniques or standardized protocols for targeted exams where dose is matched to indication/reason for exam; i.e. extremities or head) *Use of iterative reconstruction technique DOSE: 781 mGy-cm FINDINGS: HEAD: Chronic changes of an old left MCA distribution infarct are noted with frontoparietal encephalomalacia. There is mild ex vacuo dilatation of the left lateral ventricle as well as the left sylvian fissure. Ventricles otherwise normal in size and configuration. Parenchyma is otherwise normal in attenuation. There is no evidence of acute intracranial hemorrhage or territorial infarction. No abnormal mass-effect or midline shift. No extra-axial fluid collections. Pond to white matter differentiation is well preserved. No acute fractures are identified. Soft tissues are unremarkable. There is a defect in the nasal septum of the bone marrow which appears unchanged. Partial opacification of the left ethmoid air cells. Paranasal sinuses otherwise clear. Mastoid air cells are clear. 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 Vertebral body heights are otherwise normal. No fractures of the vertebral bodies or posterior elements. Vertebral alignment is normal. No subluxation. Degenerative osteophytes and sclerosis are present at the atlantodental articulation, though normal alignment is maintained. Craniocervical junction is normal. There is mild to moderate degenerative disc disease at C4-C5 and C5-C6. Facet joints are relatively well-preserved. Moderate to severe central canal stenoses are produced at C3-C4 and C4-C5 by posterior disc osteophyte complexes and posterior disc protrusions. Multilevel neural foraminal encroachment is seen on the right due to uncovertebral and facet osteophytes, most notably at C3-C4, C4-C5, and C5-C6. No significant paravertebral soft tissue swelling. Atherosclerotic calcifications are present in the carotid arteries. Pulmonary emphysema is noted at the apices. CT/CT cervical spine wo IV con IMPRESSION: 1. No acute intracranial pathology. Old left MCA distribution infarction. 2. No acute fracture or malalignment in the cervical spine. 3. Multilevel degenerative spondylosis in the cervical spine with moderate to severe central canal stenoses at C3-C4 and C4-C5.
--- NOTE | 2023-09-24 04:06 | ECG_ITS ---
Test Reason : REPECAT Blood Pressure : / mmHG Vent. Rate : 090 BPM Atrial Rate : 090 BPM P-R Int : 170 ms QRS Dur : 092 ms QT Int : 378 ms P-R-T Axes : 081 080 081 degrees QTc Int : 462 ms Normal sinus rhythm Normal ECG When compared with ECG of 24-SEP-2023 04:08, Vent. rate has decreased BY 49 BPM Non-specific change in ST segment in Inferior leads ST no longer depressed in Lateral leads T wave inversion no longer evident in Lateral leads Referred By: Chelsey Chacon Electronically Signed By:WILLIS GUERRIER MD
[2023-09-24] MEDS: levETIRAcetam 500 MG TABLET PO ×2 (04:37→20:38)
[2023-09-24] MEDS: Metoprolol Tartrate 25 MG TABLET PO ×2 (04:37→20:38)
[2023-09-24] MEDS: Magnesium Sulfate/H2O 2 GM/50 ML PIGGYBACK IV (04:37)
--- NOTE | 2023-09-24 04:52 | ED_ITS ---
HPI - Fall General Chief Complaint: Fall Stated Complaint: FALL RIGHT HIP PAIN Time Seen by Provider: 09/24/23 04:23 Source: patient and old records reviewed Mode of arrival: EMS Limitations: other (poor historian) History of Present Illness HPI Narrative: 57 yo female with PMH of substance abuse, CVA with residual R sided weakness, CAD, depression, takotsubo cardiomyopathy, seizures on keppra, COPD/asthma on 2- 3L of O2 at home, has not taken any home medications in 2 days due to them not being in pharmacy EMS notes they were called for a fall. The patient tells me she fell twice tonight I am clumsy she did hit her head the first time but no LOC. EMS notes her home O2 is held together in placed by duct tape. When the patient fell a second time her daughter tried to patch up a skin tear of the R elbow with duct tape, she cannot extend her R hip. The patient is tachycardic, tachypneic, wheezing and having pain on R hip. She denies any preceding dizziness, CP/SOB prior to the fall. MD complaint: fall Onset (ago): hour(s) (few) Fall from: standing Fall witnessed: no Place fall occurred: home Loss of consciousness: none Prolonged down time: no Symptoms prior to fall: none Context: history of frequent falls Location of injury: head and pelvis Location of injury - extremities: right: elbow and hand Severity: severe Quality: sharp Associated symptoms (after fall): other (cannot ambulate) Related Data Previous Rx's Medication Instructions Recorded albuterol sulfate 90 mcg/actuation 2 puff PO Q6H PRN bronchospasm 30 08/26/23 aerosol inhaler days #6.7 grams ipratropium 0.5 mg-albuterol 3 mg 3 ml inhalation TID PRN shortness 09/16/23 (2.5 mg base)/3 mL nebulization of breath #180 mL soln amlodipine 5 mg tablet 5 mg PO DAILY 90 days #90 tabs 09/22/23 aspirin 81 mg tablet,delayed 81 mg PO DAILY #90 tabs 09/22/23 release (Adult Low Dose Aspirin) atorvastatin 40 mg tablet 40 mg PO BEDTIME Cholesterol #90 09/22/23 tabs folic acid 1 mg tablet 1 mg PO DAILY #90 tabs 09/22/23 levetiracetam 500 mg tablet 500 mg PO BID Seizures 90 days 09/22/23 #180 tabs metoprolol tartrate 25 mg tablet 25 mg PO BID 90 days #180 tabs 09/22/23 mirtazapine 30 mg tablet 30 mg PO BEDTIME 90 days #90 tabs 09/22/23 omeprazole 20 mg capsule,delayed 20 mg PO DAILY@0630 Acid reflux 09/22/23 release #90 caps sertraline 25 mg tablet 25 mg PO DAILY Depression #90 tabs 09/22/23 Allergies Allergy/AdvReac Type Severity Reaction Status Date / Time crab Allergy Unknown Hives Verified 06/24/23 11:02 penicillin V Allergy Unknown hives Verified 06/24/23 11:02 Penicillins [PENICILLINS] Allergy Unknown hives Verified 06/24/23 11:02 SEASONAL ALLERGIES Allergy Mild RUNNY NOSE Uncoded 03/17/23 01:46 Review of Systems 2 Review of Systems: Constitutional : No Fever, No Chills ENT/Mouth : No Ear Pain, No Hoarseness, No sore throat Eyes: No Eye Pain, No Swelling, No Redness, No Foreign Body Cardiovascular : No Chest Pain, No SOB Respiratory : No Cough, No Dyspnea Gastrointestinal : No Nausea, No Vomiting, No Diarrhea, No abdominal Pain Genitourinary : No Dysuria, No Hematuria Musculoskeletal : positive joint pain, No Myalgias, No Joint Swelling Skin : No Skin lacerations, No rash Neuro : No Weakness, No Numbness, No Loss of Consciousness, No Dizziness, No Headache Psych : No Anxiety/Panic, No Depression All other systems reviewed and are negative PMFSH Past Medical History Attestation statement: The following information was validated with the patient. Source: old records reviewed Onset Date is defined in the Problem List Problems that require an onset date and time if occurred within 24 hrs of arrival to the ED Aortic Dissection and Rupture; Neurologic impairment; Cardiopulmonary Arrest; Endotracheal Intubation; Insertion or Replacement of Mechanical Circulatory Assist Device Medical History COPD (chronic obstructive pulmonary disease) History of acute respiratory distress syndrome (ARDS) (~08/2021) Seizure (~11/2021) History of non-ST elevation myocardial infarction (NSTEMI) (~11/2021) History of multiple cerebrovascular accidents (CVAs) Nicotine dependence, cigarettes, uncomplicated Cocaine abuse Respiratory failure with hypoxia Normocytic anemia History of drug abuse Major depression, recurrent Oxygen dependent Takotsubo cardiomyopathy Cocaine abuse Acute CHF (congestive heart failure) Hypercapnic respiratory failure, chronic Hemiparesis affecting right side as late effect of cerebrovascular accident Asymptomatic carotid artery stenosis with infarction Chronic GERD Environmental allergies Anxiety, generalized Lipid disorder Asthma, moderate Surgical History History of left-sided carotid endarterectomy (~09/2012) History of tonsillectomy and adenoidectomy Family History Family History Father Substance abuse Mother Brain cancer Maternal Grandfather History of heart attack Maternal Grandmother History of heart attack Paternal Grandfather No problems noted. Paternal Grandmother No problems noted. Brother No problems noted. Brother No problems noted. Son No problems noted. Daughter No problems noted. Other Mental health disorder Social History Social History Household Members: Children Housing: [facility] Do you presently have visiting nurse or other home services: No Unable to assess alcohol history related to: Refusing to respond Alcohol intake: former Patient Tobacco Use Status: Tobacco use Unknown Tobacco use type: Cigarette Cigarettes Per Day: 2 Years Smoked: 35 years Smoked in Last 30 Days: No e-Cigarette/Vaping Use: Never Used Second Hand Smoke Exposure: No Use of substances other than those prescribed or required for medical reasons: No Advance Directives: Yes Advance Directives on File: Yes Advance Directives Date on File: 11/25/21 Patient : No service: No Current occupational status: disabled Cognitive needs: No Hearing needs: No Vision needs: No Physical Exam 2 Vital Signs: Vital Signs: Last Vital Signs Temp 98.3 F 09/24/23 05:08 Pulse 109 H 09/24/23 05:26 Resp 22 H 09/24/23 05:26 BP 127/6 L 09/24/23 05:08 Pulse Ox 99 09/24/23 05:08 O2 Del Method Aerosol Mask 09/24/23 05:08 O2 Flow Rate 6 09/24/23 05:08 Oxygen Flow Rate 4 09/24/23 04:01 BMI result Body Mass Index 15.2 Appearance: Alert. Oriented X3. Mild acute distress. Eyes: Pupils equal, round and reactive to light. ENT: Pharynx normal. Atraumatic Neck: Normal inspection. Neck supple. CVS: tachycardic heart rate and rhythm. Pulses normal. Respiratory: Mild respiratory distress tachypnea and retractions Breath sounds diminished and wheezes throughout Abdomen: Soft and nontender. Skin: Skin warm and dry. pale skin color. Normal skin turgor. Extremities: No lower extremity edema. R hand contusion dorsum 5th metacarpal, R elbow skin tear noted superficial, R hip is flexed up distal NV intact will not extend the hip Neuro: Oriented X 3. Residual R sided weakness Course Course Course Narrative: repeat trop for 830am ordered Reevaluation(s) Reevaluation #1: tachycardia due to lack of bblockers and not infection or severe sepsis WBC count likely due to stress from fall and fracture and not infection or severe sepsis 651am Medications Administered Discontinued Medications Generic Name Dose Route Start Last Admin Trade Name Freq PRN Reason Stop Dose Admin Levalbuterol HCl 2.5 mg/ 0 mg 09/24/23 04:51 09/24/23 05:25 Ipratropium [place] 0.5 mg INHALE 09/24/23 04:52 1.25 dose ONCE ONE Administration Fentanyl 25 mcg 09/24/23 04:57 09/24/23 05:05 Fentanyl Citrate/Pf 100 Mcg/2 Ml Vial IVPUSH 09/24/23 04:58 25 mcg ONCE ONE Administration Protocol Magnesium Sulfate 2 gm in 50 mls @ 25 mls/hr 09/24/23 04:12 09/24/23 06:45 Magnesium Sulfate/H2o IV 09/24/23 06:11 Infused ONCE ONE Infusion Levetiracetam 500 mg 09/24/23 04:29 09/24/23 04:37 Levetiracetam 500 Mg Tablet PO 09/24/23 04:30 500 mg ONCE ONE Administration Metoprolol Tartrate 25 mg 09/24/23 04:29 09/24/23 04:37 Metoprolol Tartrate 25 Mg Tablet PO 09/24/23 04:30 25 mg ONCE ONE Administration Protocol Medical Decision Making Medical Decision Making MDM Narrative: 57 yo female with PMH of substance abuse, CVA with residual R sided weakness, CAD, depression, takotsubo cardiomyopathy, seizures on keppra, COPD/asthma on 2- 3L of O2 at home here with falls x 2 at home with head strike but no LOC - she has not taken any medications in 2 days and is tachycardic but also missed her keppra at this time will dose with her metoprolol and keppra, treat pain with fentanyl and ordered a neb. Will use her home O2 and monitor likely hypoxic post event given the disarray her tubing is in at home. Possible fracture to the hip vs dislocation and will also need xrays of the hand and elbow. Has abnormal EKG could be lyte related vs ischemic. IV magnesium ordered on arrival. Differential Diagnosis Differential Diagnoses: The differential diagnosis associated with the presentation includes falls due to poor tubing and hypoxia, head injury, fracture, lyte abnormality given ST T wave changes and prolonged qtc, NSTEMI though no chest pain Admission/Observation Consideration of admission/observation: Escalation of care including admission/observation considered admit likely pending 2nd troponin Consult Healthcare Provider Management of the patient was discussed with: Hospitalist (aware will admit pending 2nd troponin) and Data Processing Mechanic (Lyn whitman) Lab Data MDM Lab Attestation statement: I reviewed the patient's lab results. 09/24/23 04:55 09/24/23 06:17 Labs: Lab Results 09/24/23 09/24/23 09/24/23 Range/Units 04:55 06:17 06:18 WBC 14.7 H (4.8-10.8) X10*3/uL RBC 3.86 L (4.20-5.50) X10*6/uL Hgb 10.0 L (12.0-16.0) g/dl Hct 32.7 L (37.0-47.0) % MCV 84.7 (80.0-98.0) fL MCH 25.9 L (27.0-33.0) pg MCHC 30.6 L (31.0-35.0) g/dl RDW 13.6 (11.0-16.0) % Plt Count 293 D (160-400) X10*3/uL MPV 10.0 (9.4-12.3) fL Immature Gran % (Auto) 0.4 (0.0-0.4) % Neut % (Auto) 88.9 H (45-73) % Lymph % (Auto) 6.3 L (20-40) % [place] % (Auto) 4.2 (2-11) % Eos % (Auto) 0.1 (0-4) % Baso % (Auto) 0.1 (0-2) % Lymph # (Auto) 0.9 L (1.2-4.9) X10*3/uL [place] # (Auto) 0.6 (0.1-1.2) X10*3/uL Eos # (Auto) 0.0 (0.0-0.4) X10*3/uL Baso # (Auto) 0.0 (0.0-0.2) X10*3/uL Abs Immat Gran (auto) 0.06 H (0.00-0.03) X10*3/uL Absolute Neuts (auto) 13.1 H (2.0-8.3) x10*3/uL Absolute Nucleated RBC 0.000 (0.0-0.012) X10*3/uL Nucleated RBC % (auto) 0.0 (0.0-0.2) /100WBC PT 12.4 (11.1-13.3) SEC INR 1.0 (0.9-1.1) VBG pH (7.32-7.43) VBG pCO2 mmHg VBG pO2 mmHg VBG HCO3 (22-26) mmol/L VBG O2 Saturation % VBG Base Excess mmol/L Sodium 135 (135-145) mmol/L Potassium 3.9 (3.3-5.1) mmol/L Chloride 96 (96-108) mmol/L Carbon Dioxide 26 (22-29) mmol/L Anion Gap 17 (12-20) BUN 8 L (9-16) mg/dL Creatinine 0.75 (0.5-1.4) mg/dL Estim Creat Clear Calc 48.8 Estimated GFR > 60 Random Glucose 120 H (60-115) mg/dL Lactic Acid 1.9 (0.5-2.0) mmol/L Calcium 9.8 (8.4-10.2) mg/dL Magnesium 2.2 (1.6-2.6) mg/dL Total Bilirubin 0.4 (0.0-1.0) mg/dL Direct Bilirubin 0.2 (0.0-0.5) mg/dL AST 22 (5-31) U/L ALT 14 (0-31) U/L Alkaline Phosphatase 87 (39-117) U/L Total Creatine Kinase 111 (26-140) U/L Troponin I High Sens 70.1 H* D (<3.5-17.0) ng/L B-Natriuretic Peptide 29 (<100) pg/mL Total Protein 7.7 (6.5-8.0) g/dL Albumin 4.2 (3.5-5.0) g/dL Urine Color Urine Appearance Urine pH (5.0-9.0) Ur Specific [place] (1.005-1.025) Urine Protein (Neg-Trace) mg/dL Urine Glucose (UA) (Negative) mg/dL Urine Ketones (Negative) mg/dL Urine Blood (Negative) Urine Nitrite (Negative) Ur Leukocyte Esterase (Negative) Urine Opiates Screen (Not Detect) Urine Fentanyl Screen (Not Detect) Ur Barbiturates Screen (Not Detect) Ur Phencyclidine Scrn (Not Detect) Ur Amphetamines Screen (Not Detect) U Benzodiazepines Scrn (Not Detect) Urine Cocaine Screen (Not Detect) U Marijuana (THC) Screen (Not Detect) Blood Type AB Positive Antibody Screen NEGATIVE 09/24/23 09/24/23 Range/Units 06:19 06:47 WBC (4.8-10.8) X10*3/uL RBC (4.20-5.50) X10*6/uL Hgb (12.0-16.0) g/dl Hct (37.0-47.0) % MCV (80.0-98.0) fL MCH (27.0-33.0) pg MCHC (31.0-35.0) g/dl RDW (11.0-16.0) % Plt Count (160-400) X10*3/uL MPV (9.4-12.3) fL Immature Gran % (Auto) (0.0-0.4) % Neut % (Auto) (45-73) % Lymph % (Auto) (20-40) % [place] % (Auto) (2-11) % Eos % (Auto) (0-4) % Baso % (Auto) (0-2) % Lymph # (Auto) (1.2-4.9) X10*3/uL [place] # (Auto) (0.1-1.2) X10*3/uL Eos # (Auto) (0.0-0.4) X10*3/uL Baso # (Auto) (0.0-0.2) X10*3/uL Abs Immat Gran (auto) (0.00-0.03) X10*3/uL Absolute Neuts (auto) (2.0-8.3) x10*3/uL Absolute Nucleated RBC (0.0-0.012) X10*3/uL Nucleated RBC % (auto) (0.0-0.2) /100WBC PT (11.1-13.3) SEC INR (0.9-1.1) VBG pH 7.46 H (7.32-7.43) VBG pCO2 43 mmHg VBG pO2 61 mmHg VBG HCO3 31 H (22-26) mmol/L VBG O2 Saturation 93.0 % VBG Base Excess 6.6 mmol/L Sodium (135-145) mmol/L Potassium (3.3-5.1) mmol/L Chloride (96-108) mmol/L Carbon Dioxide (22-29) mmol/L Anion Gap (12-20) BUN (9-16) mg/dL Creatinine (0.5-1.4) mg/dL Estim Creat Clear Calc Estimated GFR Random Glucose (60-115) mg/dL Lactic Acid (0.5-2.0) mmol/L Calcium (8.4-10.2) mg/dL Magnesium (1.6-2.6) mg/dL Total Bilirubin (0.0-1.0) mg/dL Direct Bilirubin (0.0-0.5) mg/dL AST (5-31) U/L ALT (0-31) U/L Alkaline Phosphatase (39-117) U/L Total Creatine Kinase (26-140) U/L Troponin I High Sens (<3.5-17.0) ng/L B-Natriuretic Peptide (<100) pg/mL Total Protein (6.5-8.0) g/dL Albumin (3.5-5.0) g/dL Urine Color Yellow Urine Appearance Clear Urine pH 5.5 (5.0-9.0) Ur Specific [place] 1.015 (1.005-1.025) Urine Protein Negative (Neg-Trace) mg/dL Urine Glucose (UA) Negative (Negative) mg/dL Urine Ketones Negative (Negative) mg/dL Urine Blood Negative (Negative) Urine Nitrite Negative (Negative) Ur Leukocyte Esterase Negative (Negative) Urine Opiates Screen Not Detected (Not Detect) Urine Fentanyl Screen POSITIVE H (Not Detect) Ur Barbiturates Screen Not Detected (Not Detect) Ur Phencyclidine Scrn Not Detected (Not Detect) Ur Amphetamines Screen Not Detected (Not Detect) U Benzodiazepines Scrn Not Detected (Not Detect) Urine Cocaine Screen Not Detected (Not Detect) U Marijuana (THC) Screen Not Detected (Not Detect) Blood Type Antibody Screen Independent Interpretation I performed an independent interpretation of an: EKG, Plain X-Ray and CT Scan Interpretation: Rate: 139 Rhythm: sinus tachycardia Brea: rightward Normal P waves. Normal RADHA. Normal QRS complex. ST T wave : no REYES, ST depressions V4-V6/II, III, aVF qTC: prolonged 526 prior studies: changed from prior The study has been interpreted contemporaneously by me. . EKG#2 Rate: 90 Rhythm: NSR Bre[place]: normal Normal P waves. Normal RADHA. Normal QRS complex. ST T wave : inverted t wave aVL, no REYES, qTC: 462 prior studies: ST depressions improved The study has been interpreted contemporaneously by me. . Independent Historian Clinical information obtained from an independent historian. History obtained from or confirmed by: EMS External Record Review External record reviewed: Inpatient record Social Determinants Patient?s care significantly limited by Social Determinants of Health including: Problems related to primary support group Critical Care Time Critical Care Time Critical Care Time: Yes Total Critical Care Time: 40 Attestation: pain improved with IV fentanyl and VS improved with PO metoprolol I attest to this time spent taking care of the patient Discharge Plan Discharge Clinical Impression: Elevated troponin, Abnormal ECG Closed subcapital fracture of femur Qualifiers: Encounter type: initial encounter Laterality: right Qualified Code(s): S72.011A - Unspecified intracapsular fracture of right femur, initial encounter for closed fracture Patient Disposition: Admitted As Inpatient Prescriptions: No Action albuterol sulfate 90 mcg/actuation HFA aerosol inhaler 2 puff PO Q6H PRN (Reason: bronchospasm) 30 Days Qty: 6.7 5RF ipratropium-albuterol 0.5 mg-3 mg(2.5 mg base)/3 mL solution for nebulization 3 ml inhalation TID PRN (Reason: shortness of breath) Qty: 180 0RF amlodipine 5 mg tablet 5 mg PO DAILY 90 Days Qty: 90 0RF aspirin [Adult Low Dose Aspirin] 81 mg tablet,delayed release (DR/EC) 81 mg PO DAILY Qty: 90 0RF atorvastatin 40 mg tablet 40 mg PO BEDTIME Qty: 90 0RF folic acid 1 mg tablet 1 mg PO DAILY Qty: 90 0RF levetiracetam 500 mg tablet 500 mg PO BID 90 Days Qty: 180 0RF metoprolol tartrate 25 mg tablet 25 mg PO BID 90 Days Qty: 180 0RF mirtazapine 30 mg tablet 30 mg PO BEDTIME 90 Days Qty: 90 0RF omeprazole 20 mg capsule,delayed release(DR/EC) 20 mg PO DAILY@0630 Qty: 90 0RF sertraline 25 mg tablet 25 mg PO DAILY Qty: 90 0RF
[2023-09-24 04:59] LABS: Basophils Percent Auto 0.1 % (0-2); Eosinophils Percent Auto 0.1 % (0-4); Hematocrit 32.7 % (37.0-47.0); Imm Gran Abs Auto 0.06 X10*3/uL (0.00-0.03); Imm Gran Pct Auto 0.4 % (0.0-0.4); Lymphocytes Absolute Auto 0.9 X10*3/uL (1.2-4.9); Lymphocytes Percent Auto 6.3 % (20-40); Mean Corpuscular HGB Conc 30.6 g/dl (31.0-35.0); Mean Corpuscular Hemoglobin 25.9 pg (27.0-33.0); Mean Corpuscular Volume 84.7 fL (80.0-98.0); Monocytes Absolute Auto 0.6 X10*3/uL (0.1-1.2); Monocytes Percent Auto 4.2 % (2-11); Neutrophils Absolute Auto 13.1 x10*3/uL (2.0-8.3); Neutrophils Percent Auto 88.9 % (45-73); Platelet Count 293 X10*3/uL (160-400); Red Blood Count 3.86 X10*6/uL (4.20-5.50); Red Cell Distribution Width 13.6 % (11.0-16.0); White Blood Count 14.7 X10*3/uL (4.8-10.8)
[2023-09-24] MEDS: fentaNYL citrate/PF 100 MCG/2 ML VIAL 25 MCG IVPUSH (05:05)
[2023-09-24 05:15] LABS: MANUAL DIFF FLAG NO; Prothrombin Time 12.4 SEC (11.1-13.3)
--- NOTE | 2023-09-24 05:17 | PC.NURSE ---
Patient BIB [facility] for evaluation of fall at home while trying to get from the toilet. Patient fell from standing position, loss her balance and fell on her buttocks, denies head strike, no LOC, no on anticoagulants. Per EMS report patient is on supplemental O2 at home 3.5 LPM, O2 tubing is old with multiple patches of duct tape. Patient sustained a lac to right elbow and severe pain in right hip with extension per EMS, per EMS pt's dtr is her [employer] covered laceration with duct tape. History of CVA x4 with right sided weakness, dominant side. patient reports she did not take her medications x2 days. EMS inserted 20 G IV line in right forearm. Patient changed into a hospital attire, EKG completed by Sukhdeep dietetic technician registered. hall monitor applied, hr 130-140's. Patient medicated per NOV. RT at bedside assessed patient and administered Xopenex nebuliz treatment. Patient repositioned to comfort, call campbell placed within patient's reach. Plan of care ongoing.
[2023-09-24 05:23] LABS: B Type Natriuretic Peptide 29 pg/mL (<100)
[2023-09-24] MEDS: levalbuterol HCL 2.5 MG, Ipratropium Bromide 0.5 MG INHALE (05:25)
--- NOTE | 2023-09-24 05:31 | PC.NURSE ---
T/c from lab reporting critical Mg 9.5. Mg IV was running and paused for blood draw. Lab requesting to ensure Mg IV paused for at least 15 min prior to draw. Lab requesting redrawn of Trop, CMP, and Type and screen to ensure correct results.
[2023-09-24 06:26] LABS: VBG Base Excess 6.6 mmol/L; VBG HCO3 31 mmol/L (22-26); VBG pCO2 43 mmHg; VBG pH 7.46 (7.32-7.43); VBG pO2 61 mmHg
[2023-09-24 06:33] LABS: Lactic Acid 1.9 mmol/L (0.5-2.0)
[2023-09-24 06:35] LABS: Venous Blood Gas Refer to POC result
[2023-09-24 06:44] LABS: Troponin-I High Sensitivity 70.1 ng/L (<3.5-17.0)
--- NOTE | 2023-09-24 06:45 | ECG_ITS ---
Test Reason : FALL Blood Pressure : / mmHG Vent. Rate : 139 BPM Atrial Rate : 000 BPM P-R Int : 000 ms QRS Dur : 078 ms QT Int : 346 ms P-R-T Axes : 000 092 086 degrees QTc Int : 526 ms Sinus tachycardia Rightward axis Anteroseptal infarct , age undetermined ST & T wave abnormality, consider lateral ischemia Abnormal ECG When compared with ECG of 21-JUL-2023 20:03, Vent. rate has increased ST depression is now evident Referred By: Chelsey Chacon Electronically Signed By:WILLIS GUERRIER MD
[2023-09-24 07:00] LABS: Appearance Urine Clear; Color Urine Yellow; Glucose Urine UA Negative (Negative); Leukocyte Esterase Urine Negative (Negative); Nitrite Urine Negative (Negative); PH 5.5 (5.0-9.0); Specific Gravity - Urine 1.015 (1.005-1.025); Urine Blood Negative (Negative); Urine Ketones Negative (Negative); Urine Protein Negative (Neg-Trace)
[2023-09-24 07:02] LABS: Anion Gap 17 (12-20); Blood Urea Nitrogen 8 mg/dL (9-16); Calcium 9.8 mg/dL (8.4-10.2); Carbon Dioxide 26 mmol/L (22-29); Chloride 96 mmol/L (96-108); Creatinine Clr Calc Pharmacy 48.8; Estimated Glomerular Filt Rate > 60; Glucose Random 120 mg/dL (60-115); Magnesium 2.2 mg/dL (1.6-2.6); Potassium 3.9 mmol/L (3.3-5.1); Sodium 135 mmol/L (135-145)
[2023-09-24 07:03] LABS: Alanine Aminotransferase 14 U/L (0-31); Albumin Level 4.2 g/dL (3.5-5.0); Alkaline Phosphatase 87 U/L (39-117); Aspartate Amino Transferase 22 U/L (5-31); Bilirubin Direct 0.2 mg/dL (0.0-0.5); Bilirubin Total 0.4 mg/dL (0.0-1.0); Total Protein 7.7 g/dL (6.5-8.0)
[2023-09-24 07:06] LABS: Amphetamine Screen Urine Not Detected (Not Detect); Barbiturates, Urine Not Detected (Not Detect); Benzodiazepines Screen Urine Not Detected (Not Detect); Cannabinoid Screen Urine Not Detected (Not Detect); Cocaine Screen Urine Not Detected (Not Detect); Fentanyl, urine POSITIVE (Not Detect); Opiate Screen Urine Not Detected (Not Detect); Phencyclidine Screen Urine Not Detected (Not Detect)
--- NOTE | 2023-09-24 07:16 | PC.NURSE ---
Resumed care of patient at this time, she is a/ox4 laying in bed, reporting hip pain, EKG repeated by night Tech. Pt requesting PO intake, held at this time until surgery can consult.
[2023-09-24] MEDS: HYDROmorphone HCl 0.5 MG/0.5 ML SYRINGE IVPUSH ×3 (08:35→20:14)
[2023-09-24 09:20] LABS: Troponin-I High Sensitivity 60.3 ng/L (<3.5-17.0)
--- NOTE | 2023-09-24 11:07 | P.HPHOSP_ITS ---
<Statement entered by Sinhg Lizama MD - 09/24/23 15:41> Addendum to history and physical by the advanced practice provider, CHESTER Valdez I interviewed and examined the patient. I discussed their presentation and management with the DAISY. I reviewed the history and physical and agree with the documentation, with the following additions and corrections: 57yo F with hx CVA with R hemiparesis, COPD on 3L O2, seizure disorder, CAD, takotsubo cardiomyopathy presenting after R hip/leg pain after fall at home, found to have R proximal femural fx given cardiac risk will obtain TTE and Cardiology consultation for preopp risk stratification involve case management re: concern for suboptimal care of pt at home History of Present Illness Date of Service: 09/24/23 Attending physician on admission: Singh Lizama Chief Complaint: Fall at home Pt is a 57-year-old female with a PMH significant for?COPD chronically on 3L NC, HTN, carotid artery stenosis s/p CVA 2016 with residual right-sided hemiparesis, seizure disorder s/p CVA, CAD, takotsubo cardiomyopathy, and MDD who presents to the ED for evaluation of right hip and leg pain after fall at home. ?Patient states last night he went to the bathroom and washed up without incident, but when she turned around go back into her room she felt dizzy and fell on her right side. Denies having a seizure. Immediately felt pain in her right elbow, hand, hip and leg, and was unable to stand. Patient lives with her daughter who is her STRETCHER OPERATOR who helped her into her bed but did not initially call EMS for a few hours after fall. Pt reports she eventually was able to convince her daughter to call an ambulance. Apparently patient also fell earlier in the day in her room without injury. When EMS arrived they found patient's home O2 held together in place by duct tape; patient reports that her cats have chewed up her O2 tubing and she has been unable to obtain any replacements. Pt notes she has not taken any of her home meds for the past few days and has been ?out of everything?. Pt is vague about reasons, and it is not clear if it is due to not being refilled or not having a ride to pick them up. It was also noted that daughter attempted to patch up a skin tear on the patient's right elbow with duct tape. Patient complains of 10/10 right hip and thigh pain, also complains of right elbow and hand pain, chronic shortness of breath around baseline. Experienced some palpitations and racing heart last night, especially after the second fall, but currently no chest pain/pressure, palpitations. Denies nausea, vomiting, abdominal pain. No fevers, chills, diarrhea. Pt ambulates with a cane at baseline. In the ED pt was tachycardic up to 142, tachypneic up to 22, hypertensive up to 154/62, satting at 89% on 4 L NC. Labs were significant for leukocytosis of 14.7, stable H&H of 10.032.7, and initial troponin 70.1 with repeat 60.3. No significant electrolyte abnormality. Renal and hepatic function WNL. Lactic acid WNL at 1.9. UA negative for UTI. Hip x-ray positive for acute valgus impacted subcapital fracture of the right proximal femur. CXR showed pulmonary emphysema but no acute pulmonary findings. Continue to find persistent focal airspace opacification in the right lung base, recommend follow-up CT to exclude an underlying lesion. X-ray of right elbow found no acute fracture or malalignment but did show osteopenia. X-ray of right hand found no acute fracture or malalignment, but did show osteopenia and mild osteoarthritis of 1st C[address] joint. CT of head found no acute intracranial pathology but did show an old MCA distribution infarction. CT cervical spine found no acute fracture or malalignment, but showed multilevel degenerative spondylolysis and cervical spine with moderate to severe central canal stenosis at C3-C4 and C4-C5. Initial EKG demonstrated sinus tachycardia of [address] depressions in V4, V5 and V6. Repeat EKG showed normal sinus rhythm with heart rate of 90, and no significant ST elevations or depressions. Pt was treated with Mag sulfate, fentanyl, Dilaudid, and home metoprolol, inhalers, and Keppra. Pt will be admitted to the hospital for treatment and further evaluation of right hip fracture. Review of Systems 2 Review of Systems: Right hip and leg pain s/p fall at home Lightheadedness, dizziness, palpitations Right elbow pain Right wrist pain and swelling Chronic shortness of breath and cough at baseline Denies fever, chills, nausea, vomiting, abdominal pain [facility] Medical History COPD (chronic obstructive pulmonary disease) History of acute respiratory distress syndrome (ARDS) (~08/2021) Seizure (~11/2021) History of non-ST elevation myocardial infarction (NSTEMI) (~11/2021) History of multiple cerebrovascular accidents (CVAs) Nicotine dependence, cigarettes, uncomplicated Cocaine abuse Respiratory failure with hypoxia Normocytic anemia History of drug abuse Major depression, recurrent Oxygen dependent Takotsubo cardiomyopathy Cocaine abuse Acute CHF (congestive heart failure) Hypercapnic respiratory failure, chronic Hemiparesis affecting right side as late effect of cerebrovascular accident Asymptomatic carotid artery stenosis with infarction Chronic GERD Environmental allergies Anxiety, generalized Lipid disorder Asthma, moderate Family History Father Substance abuse Mother Brain cancer Maternal Grandfather History of heart attack Maternal Grandmother History of heart attack Paternal Grandfather No problems noted. Paternal Grandmother No problems noted. Brother No problems noted. Brother No problems noted. Son No problems noted. Daughter No problems noted. Other Mental health disorder Surgical History History of left-sided carotid endarterectomy (~09/2012) History of tonsillectomy and adenoidectomy Social History Household Members: Children [facility] Do you presently have visiting nurse or other home services: No Unable to assess alcohol history related to: Refusing to respond Alcohol intake: former Patient Tobacco Use Status: Tobacco use Unknown Tobacco use type: Cigarette Cigarettes Per Day: 2 Years Smoked: 35 years e-Cigarette/Vaping Use: Never Used Second Hand Smoke Exposure: No Advance Directives Date on File: 11/25/21 service: No Current occupational status: disabled Cognitive needs: No Hearing needs: No Vision needs: No Meds Allergies Allergy/AdvReac Type Severity Reaction Status Date / Time crab Allergy Unknown Hives Verified 06/24/23 11:02 penicillin V Allergy Unknown hives Verified 06/24/23 11:02 Penicillins [PENICILLINS] Allergy Unknown hives Verified 06/24/23 11:02 SEASONAL ALLERGIES Allergy Mild RUNNY NOSE Uncoded 03/17/23 01:46 Physical Exam 2 Vital Signs and Narrative: Vital Signs: Last Vital Signs Temp 99.4 F 09/24/23 07:34 Pulse 90 09/24/23 07:34 Resp 15 09/24/23 08:35 BP 135/67 09/24/23 07:34 Pulse Ox 97 09/24/23 07:34 O2 Del Method Nasal Cannula 09/24/23 07:34 O2 Flow Rate 6 09/24/23 05:08 Oxygen Flow Rate 4 09/24/23 04:01 BMI result Body Mass Index 15.2 Constitutional: Alert, cachectic, frail looking, in no acute distress. Mental Status: Oriented to person, place and time. Eyes: Pupils are equal, round, and reactive to light. Ear, Nose, and Throat: Oropharynx clear, mucous membranes moist. Ears and nose without deformities. Trachea midline. Respiratory: Mild to moderate expiratory diffuse wheezing bilaterally. Cardiovascular: S1, S2 regular. No murmurs, rubs, or gallops. Gastrointestinal: Abdomen soft, non-tender, non-distended. Normal bowel sounds. Neurologic: Cranial nerves II-XII are grossly intact bilaterally. Moves all extremities spontaneously. Right arm and hand contracted. Skin: Warm, dry. Musculoskeletal: Small superficial skin tear on right elbow. Swelling and ecchymosis of right hand. Right leg shortened and externally rotated. Extremities: No edema. Psychiatric: Normal mood and affect. Results Labs 09/24/23 04:55 09/24/23 06:17 Labs: Laboratory Results - last 24 hr 09/24/23 09/24/23 09/24/23 04:55 06:17 06:18 MCV 84.7 MCH 25.9 L MCHC 30.6 L RDW 13.6 Plt Count 293 D MPV 10.0 Immature Gran % (Auto) 0.4 Neut % (Auto) 88.9 H Lymph % (Auto) 6.3 L [place] % (Auto) 4.2 Eos % (Auto) 0.1 Baso % (Auto) 0.1 Lymph # (Auto) 0.9 L [place] # (Auto) 0.6 Eos # (Auto) 0.0 Baso # (Auto) 0.0 Abs Immat Gran (auto) 0.06 H Absolute Neuts (auto) 13.1 H Absolute Nucleated RBC 0.000 Nucleated RBC % (auto) 0.0 PT 12.4 INR 1.0 VBG pH VBG pCO2 VBG pO2 VBG HCO3 VBG O2 Saturation VBG Base Excess Anion Gap 17 Estim Creat Clear Calc 48.8 Estimated GFR > 60 Random Glucose 120 H Lactic Acid 1.9 Calcium 9.8 Magnesium 2.2 Total Bilirubin 0.4 Direct Bilirubin 0.2 AST 22 ALT 14 Alkaline Phosphatase 87 Total Creatine Kinase 111 B-Natriuretic Peptide 29 Total Protein 7.7 Albumin 4.2 Urine Color Urine Appearance Urine pH Ur Specific [place] Urine Protein Urine Glucose (UA) Urine Ketones Urine Blood Urine Nitrite Ur Leukocyte Esterase Urine Opiates Screen Urine Fentanyl Screen Ur Barbiturates Screen Ur Phencyclidine Scrn Ur Amphetamines Screen U Benzodiazepines Scrn Urine Cocaine Screen U Marijuana (THC) Screen Blood Type AB Positive Antibody Screen NEGATIVE 09/24/23 09/24/23 06:19 06:47 MCV MCH MCHC RDW Plt Count MPV Immature Gran % (Auto) Neut % (Auto) Lymph % (Auto) [place] % (Auto) Eos % (Auto) Baso % (Auto) Lymph # (Auto) [place] # (Auto) Eos # (Auto) Baso # (Auto) Abs Immat Gran (auto) Absolute Neuts (auto) Absolute Nucleated RBC Nucleated RBC % (auto) PT INR VBG pH 7.46 H VBG pCO2 43 VBG pO2 61 VBG HCO3 31 H VBG O2 Saturation 93.0 VBG Base Excess 6.6 Anion Gap Estim Creat Clear Calc Estimated GFR Random Glucose Lactic Acid Calcium Magnesium Total Bilirubin Direct Bilirubin AST ALT Alkaline Phosphatase Total Creatine Kinase B-Natriuretic Peptide Total Protein Albumin Urine Color Yellow Urine Appearance Clear Urine pH 5.5 Ur Specific [place]aird 1.015 Urine Protein Negative Urine Glucose (UA) Negative Urine Ketones Negative Urine Blood Negative Urine Nitrite Negative Ur Leukocyte Esterase Negative Urine Opiates Screen Not Detected Urine Fentanyl Screen POSITIVE H Ur Barbiturates Screen Not Detected Ur Phencyclidine Scrn Not Detected Ur Amphetamines Screen Not Detected U Benzodiazepines Scrn Not Detected Urine Cocaine Screen Not Detected U Marijuana (THC) Screen Not Detected Blood Type Antibody Screen Imaging Radiologist's Impressions: Impressions Chest X-Ray 09/24/23 06:02 IMPRESSION: 1. Pulmonary emphysema. No acute pulmonary findings. 2. Persistent focal airspace opacification in the right lung base as compared to 07/21/2023. Recommend follow-up CT to exclude an underlying lesion. 3. Emphysema. Elbow X-Ray 09/24/23 06:02 IMPRESSION: No acute fracture or malalignment. Osteopenia. Hand X-Ray 09/24/23 06:02 IMPRESSION: 1. No acute fracture or malalignment. Sensitivity is slightly limited by clenched hand positioning. 2. Osteopenia. 3. 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 Hip X-Ray 09/24/23 06:02 IMPRESSION: Acute valgus impacted subcapital fracture of the right proximal femur. Cervical Spine CT 09/24/23 06:09 IMPRESSION: 1. No acute intracranial pathology. Old left MCA distribution infarction. 2. No acute fracture or malalignment in the cervical spine. 3. Multilevel degenerative spondylosis in the cervical spine with moderate to severe central canal stenoses at C3-C4 and C4-C5. Head CT 09/24/23 06:09 IMPRESSION: 1. No acute intracranial pathology. Old left MCA distribution infarction. 2. No acute fracture or malalignment in the cervical spine. 3. Multilevel degenerative spondylosis in the cervical spine with moderate to severe central canal stenoses at C3-C4 and C4-C5. Assessment and Plan (1) Closed subcapital fracture of femur: Qualifiers: Encounter type: initial encounter Laterality: right Qualified Code(s): S72.011A - Unspecified intracapsular fracture of right femur, initial encounter for closed fracture Status: Acute Plan Pt is a 57-year-old female with a PMH significant for?COPD chronically on 3L NC, HTN, carotid artery stenosis s/p CVA 2016 with residual right-sided hemiparesis, seizure disorder s/p CVA, CAD, takotsubo cardiomyopathy, and MDD who presents to the ED for evaluation of right hip and leg pain after fall at home. Pt will be admitted to the hospital for treatment and further evaluation of right hip fracture. Right hip fracture Hip x-ray acute valgus impacted subcapital fracture of the right proximal femur S/P fall at home in bathroom Dilaudid 0.5 mg Q 4 for pain management RCRI 3 points, class IV risk Will get echo, cardiology consult for cardiac risk stratification Orthopedic consult NPO after midnight for anticipated surgery tomorrow Pneumatic boots for DVT prophylaxis Sirs criteria No evidence of bacterial infection: UA negative, CXR negative, patient afebrile Tachycardia secondary to pain and rebound tachycardia from metoprolol noncompliance Tachypnea secondary to COPD and home O2 and inhaler non compliance Leukocytosis likely reactionary Lactic acid WNL No indication for abx at this time COPD Not in acute exacerbation Continue home inhalers Place on home 3L NC Hx of CVA Hold aspirin Continue Statin Seizure disorder S/P CVA in 2016 Continue keppra GERD Continue PPI Mood disorder Continue mirtazapine, sertraline Full Code Attending:?Dr. Lizama DVT Prophylaxis: Pneumatic boots d/t impending surgery Pt will require a hospitalization of at least two nights for treatment of right hip fracture with surgical procedure. Given patient's significant comorbidities and frail baseline condition, patient require at least 2 nights stay for stabilization, surgical procedure, and PT evaluation post hospital care. Quality Stroke Does the patient have a stroke diagnosis?: No VTE Prior VTE?: No VTE Risk Level:: Medical - moderate - high VTE Device Contraindication: N/A - Device Ordered VTE Drug Contraindication: Treatment Not Indicated
--- NOTE | 2023-09-24 12:12 | PHA.MEDREC ---
Pharmacy Consult ? Medication Reconciliation Pharmacy has completed the medication reconciliation. Spoke to pt to confirm meds. Per patient, been out of meds for last 2 days because ran out.
--- NOTE | 2023-09-24 13:01 | PM.EVENT ---
Event Note Date of Service: 09/24/23 Event Note: X-rays of the right hip reveal a subcapital hip fracture Right sided hemiparesis from prior CVA Ambulates with a cane at baseline Significant cardiac hx pending cardiology clearance NPO after midnight Formal note to follow Time Spent With Patient Time: Total time managing care of this patient today ____ minutes.
--- NOTE | 2023-09-24 13:03 | PM.HPOR ---
History of Present Illness History of Present Illness Date of Service: 09/25/23 Chief complaint: Right hip fracture Narrative: Oxana Bragg is a 57 year old female with a PMH significant for?COPD chronically on 3L NC, HTN, carotid artery stenosis s/p CVA 2015 with residual right-sided hemiparesis, seizure disorder s/p CVA, CAD, takotsubo cardiomyopathy, and MDD who presents to the ED for evaluation of right hip and leg pain after fall at home. ?Patient states last night he went to the bathroom and washed up without incident, but when she turned around go back into her room she felt dizzy and fell on her right side. Denies having a seizure. Immediately felt pain in her right elbow, hand, hip and leg, and was unable to stand. X-rays obtained in the ED revealed a right subcapital hip fracture. The patient was admitted to the medicine service with orthopedic consult for further evaluation and treatment. Review of Systems Review of Systems: Yes all other systems are reviewed and are negative PMFSH Past Medical History Medical History COPD (chronic obstructive pulmonary disease) History of acute respiratory distress syndrome (ARDS) (~08/2021) Seizure (~11/2021) History of non-ST elevation myocardial infarction (NSTEMI) (~11/2021) History of multiple cerebrovascular accidents (CVAs) Nicotine dependence, cigarettes, uncomplicated Cocaine abuse Respiratory failure with hypoxia Normocytic anemia History of drug abuse Major depression, recurrent Oxygen dependent Takotsubo cardiomyopathy Cocaine abuse Acute CHF (congestive heart failure) Hypercapnic respiratory failure, chronic Hemiparesis affecting right side as late effect of cerebrovascular accident Asymptomatic carotid artery stenosis with infarction Chronic GERD Environmental allergies Anxiety, generalized Lipid disorder Asthma, moderate Family History Family History Father Substance abuse Mother Brain cancer Maternal Grandfather History of heart attack Maternal Grandmother History of heart attack Paternal Grandfather No problems noted. Paternal Grandmother No problems noted. Brother No problems noted. Brother No problems noted. Son No problems noted. Daughter No problems noted. Other Mental health disorder Surgical History Surgical History History of left-sided carotid endarterectomy (~09/2012) History of tonsillectomy and adenoidectomy Social History Social History Household Members: Children Housing: Condominium Do you presently have visiting nurse or other home services: No Unable to assess alcohol history related to: Refusing to respond Alcohol intake: former Patient Tobacco Use Status: Former Tobacco user Tobacco use type: Cigarette Cigarettes Per Day: 2 Years Smoked: COUPLE YEAR AGO PER PT e-Cigarette/Vaping Use: Never Used Second Hand Smoke Exposure: No Advance Directives Date on File: 11/25/21 service: No Current occupational status: disabled Cognitive needs: No Hearing needs: No Vision needs: No Meds Allergies Allergy/AdvReac Type Severity Reaction Status Date / Time crab Allergy Unknown Hives Verified 06/24/23 11:02 penicillin V Allergy Unknown hives Verified 06/24/23 11:02 Penicillins [PENICILLINS] Allergy Unknown hives Verified 06/24/23 11:02 SEASONAL ALLERGIES Allergy Mild RUNNY NOSE Uncoded 03/17/23 01:46 Active Medications: Current Medications Acetaminophen (Acetaminophen 325 Mg Tablet) 650 mg PO Q6H PRN PRN Reason: Pain, Mild (Pain Scale 1-3) Albuterol Sulfate (Albuterol Sulfate 90 Mcg 8 Gm Inhaler) 2 puff INHALE Q6H PRN PRN Reason: bronchospasm Albuterol/Ipratropium (Albuterol/Iprat 2.5/0.5mg 3 Ml Ampul.Neb) 3 ml INHALE TID PRN PRN Reason: shortness of breath Amlodipine Besylate (Amlodipine Besylate 5 Mg Tablet) 5 mg PO DAILY LADONNA; Protocol Atorvastatin Calcium (Atorvastatin Calcium 40 Mg Tablet) 40 mg PO BEDTIME LADONNA Benzonatate (Benzonatate 100 Mg Capsule) 100 mg PO TID PRN PRN Reason: Cough Docusate Sodium (Docusate Sodium 100 Mg Capsule) 100 mg PO DAILY PRN PRN Reason: Constipation Folic Acid (Folic Acid 1 Mg Tablet) 1 mg PO DAILY LADONNA Hydromorphone HCl (Hydromorphone Hcl 0.5 Mg/0.5 Ml Syringe) 0.5 mg IVPUSH Q4H PRN; Protocol PRN Reason: Pain, Severe (Pain Scale 7-10) Levetiracetam (Levetiracetam 500 Mg Tablet) 500 mg PO BID [facility] Melatonin (Melatonin 3 Mg Tablet) 6 mg PO BEDTIME PRN PRN Reason: Insomnia Metoprolol Tartrate (Metoprolol Tartrate 25 Mg Tablet) 25 mg PO BID [facility]; Protocol Mirtazapine (Mirtazapine 30 Mg Tablet) 30 mg PO BEDTIME LADONNA Omeprazole (Omeprazole 20 Mg Capsule.Dr) 20 mg PO DAILY@0630 LADONNA Ondansetron HCl (Ondansetron Hcl 4 Mg/2 Ml Vial) 4 mg IVPUSH Q8H PRN PRN Reason: Nausea and Vomiting Sertraline HCl (Sertraline Hcl 25 Mg Tablet) 25 mg PO DAILY [facility] Sodium Chloride (0.9 % Sodium Chloride Flush 3 Ml Syringe) 3 ml IVFLUSH QSHIFT LADONNA Physical Exam Vital Signs: Vital Signs: Last Vital Signs Temp 99.4 F 09/24/23 07:34 Pulse 85 09/24/23 12:09 Resp 14 09/24/23 12:09 BP 129/84 09/24/23 12:09 Pulse Ox 100 09/24/23 12:09 O2 Del Method Nasal Cannula 09/24/23 12:09 O2 Flow Rate 4 09/24/23 12:09 Oxygen Flow Rate 4 09/24/23 04:01 BMI result Body Mass Index 15.2 Const: General: cooperative, healthy appearing and no acute distress Resp: Effort & Inspection: normal respiratory effort and able to speak in complete sentences Cardio: Rate: regular rate Peripheral pulses: Peripheral pulses 2+ throughout GI: Palpation (GI): Soft to palpation Skin: Lesions: no lesions Rashes: no rashes Extrem: Other: RLE externally rotated. Able to dorsi/plantar flex. Pain with log roll. Pedal pulse intact. Results Labs 09/25/23 05:41 09/24/23 06:17 Labs: Abnormal lab results 09/24/23 09/24/23 09/24/23 Range/Units 04:55 06:17 06:19 WBC 14.7 H (4.8-10.8) X10*3/uL RBC 3.86 L (4.20-5.50) X10*6/uL Hgb 10.0 L (12.0-16.0) g/dl Hct 32.7 L (37.0-47.0) % MCH 25.9 L (27.0-33.0) pg MCHC 30.6 L (31.0-35.0) g/dl Neut % (Auto) 88.9 H (45-73) % Lymph % (Auto) 6.3 L (20-40) % Lymph # (Auto) 0.9 L (1.2-4.9) X10*3/uL Abs Immat Gran (auto) 0.06 H (0.00-0.03) X10*3/uL Absolute Neuts (auto) 13.1 H (2.0-8.3) x10*3/uL VBG pH 7.46 H (7.32-7.43) VBG HCO3 31 H (22-26) mmol/L BUN 8 L (9-16) mg/dL Random Glucose 120 H (60-115) mg/dL Troponin I High Sens 70.1 H* D (<3.5-17.0) ng/L Urine Fentanyl Screen (Not Detect) 09/24/23 09/24/23 Range/Units 06:47 08:41 WBC (4.8-10.8) X10*3/uL RBC (4.20-5.50) X10*6/uL Hgb (12.0-16.0) g/dl Hct (37.0-47.0) % MCH (27.0-33.0) pg MCHC (31.0-35.0) g/dl Neut % (Auto) (45-73) % Lymph % (Auto) (20-40) % Lymph # (Auto) (1.2-4.9) X10*3/uL Abs Immat Gran (auto) (0.00-0.03) X10*3/uL Absolute Neuts (auto) (2.0-8.3) x10*3/uL VBG pH (7.32-7.43) VBG HCO3 (22-26) mmol/L BUN (9-16) mg/dL Random Glucose (60-115) mg/dL Troponin I High Sens 60.3 H* (<3.5-17.0) ng/L Urine Fentanyl Screen POSITIVE H (Not Detect) H & H 09/24/23 Range/Units 04:55 Hgb 10.0 L (12.0-16.0) g/dl Hct 32.7 L (37.0-47.0) % Coagulation 09/24/23 Range/Units 04:55 INR 1.0 (0.9-1.1) All other labs normal. Assessment and Plan (1) Closed subcapital fracture of femur: Qualifiers: Encounter type: initial encounter Laterality: right Qualified Code(s): S72.011A - Unspecified intracapsular fracture of right femur, initial encounter for closed fracture Status: Acute I discussed the case with Dr. Peralta and explained the extent of the injury to the patient and options available which include surgical intervention. I explained the procedure in detail along with the length of recovery and rehab course. I explained the risk, benefits and alternatives. Risk including, but not limited to infection, blood clots, bleeding, non union or malunion and nerve/tissue damage to surrounding areas. I answered all their questions and with their understanding they have consented to move forward with Operative Fixation of the right hip. The patient will be T&S, med clearance obtained and NPO after midnight. (2) COPD (chronic obstructive pulmonary disease): Qualifiers: COPD type: emphysema Emphysema type: panlobular Qualified Code(s): J43.1 - Panlobular emphysema Status: Acute (3) Coronary artery disease: Qualifiers: Associated angina: without angina Coronary Disease-Associated Artery/Lesion type: [place] artery [place] vs. transplanted heart: [place] heart Qualified Code(s): I25.10 - Atherosclerotic heart disease of [place] coronary artery without angina pectoris Status: Acute (4) Supplemental oxygen dependent: Status: Acute (5) Seizure: Status: Acute (6) Takotsubo cardiomyopathy: Status: Acute (7) History of multiple cerebrovascular accidents (CVAs): Status: Acute (8) Hemiparesis affecting right side as late effect of cerebrovascular accident: Status: Acute Quality Stroke Does the patient have a stroke diagnosis?: No VTE Prior VTE?: No VTE Risk Level:: Medical - moderate - high VTE Device Contraindication: N/A - Device Ordered VTE Drug Contraindication: Treatment Not Indicated Procedures Date of Service Date of Service: 09/25/23
[2023-09-24] MEDS: Acetaminophen 325 MG TABLET 650 MG PO (14:10)
[2023-09-24] MEDS: amLODIPine Besylate 5 MG TABLET PO (14:10)
[2023-09-24] MEDS: Omeprazole 20 MG CAPSULE.DR PO (14:10)
[2023-09-24] MEDS: Folic Acid 1 MG TABLET PO (14:10)
[2023-09-24] MEDS: Sertraline HCL 25 MG TABLET PO (14:10)
[2023-09-24] MEDS: Atorvastatin Calcium 40 MG TABLET PO (20:38)
[2023-09-24] MEDS: Mirtazapine 30 MG TABLET PO (20:38)
[2023-09-25] VITALS (17 sets, daily range): BP systolic 100–188; BP diastolic 43–84; PULSE 74–122; RESP 12–19; TEMP 36–37.1; O2SAT 85–104
[2023-09-25] MEDS: HYDROmorphone HCl 0.5 MG/0.5 ML SYRINGE IVPUSH ×5 (00:12→20:44)
[2023-09-25] MEDS: 0.9 % Sodium Chloride Flush 3 ML SYRINGE IVFLUSH ×3 (00:23→16:01)
[2023-09-25] MEDS: Omeprazole 20 MG CAPSULE.DR PO (05:17)
[2023-09-25 06:52] LABS: Hematocrit 31.9 % (37.0-47.0); Hemoglobin 9.7 g/dl (12.0-16.0); Mean Corpuscular HGB Conc 30.4 g/dl (31.0-35.0); Mean Corpuscular Hemoglobin 25.5 pg (27.0-33.0); Mean Corpuscular Volume 83.9 fL (80.0-98.0); Mean Platelet Volume 10.6 fL (9.4-12.3); Platelet Count 244 X10*3/uL (160-400); Red Cell Distribution Width 13.6 % (11.0-16.0); White Blood Count 11.3 X10*3/uL (4.8-10.8)
--- NOTE | 2023-09-25 08:35 | MHC.CM.PN ---
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 She has home O2 from [facility] (needs new tubing at home), and uses a cane for ambulation. Pt has used services from [facility] in the past and she has been to [facility] near [place]. HCP is on file, Hemant Barragan, pt's brother. PCP: Brianna Gonzalez. Pt was not able to pickling grader her perscription medication at the pharmacy, her daughter does not drive, she was relying on someone who was not able to get them. CM will put in a task for [facility] to see pt about med management assistance and STORE SALES MANAGER assistance, because pt said daughter may no longer do this. CM to follow and assist with DC planning.
[2023-09-25] MEDS: amLODIPine Besylate 5 MG TABLET PO (08:46)
[2023-09-25] MEDS: Metoprolol Tartrate 25 MG TABLET PO (08:46)
[2023-09-25] MEDS: Sertraline HCL 25 MG TABLET PO (08:46)
[2023-09-25] MEDS: levETIRAcetam 500 MG TABLET PO ×2 (08:46→20:52)
[2023-09-25] MEDS: Folic Acid 1 MG TABLET PO (08:47)
--- NOTE | 2023-09-25 11:29 | P.CONCA_ITS ---
History of Present Illness History of Present Illness Date of Service: 09/25/23 Requesting physician: Cale Resendiz Consult reason: pre-op evaluation Chief complaint: Right hip fracture Narrative: I was consulted to see [place] in cardiology consultation today for preoperative cardiovascular risk stratification with abnormal troponin abnormal EKG. Patient is 57-year-old female with complicated past medical history with prior stroke in 2016 with right hemiparesis and cachexia and COPD on chronic home oxygen. She has prior carotid stenosis and history of takotsubo cardiomyopathy. She also has history of coronary disease with LAD stenosis which was deemed moderate by coronary CTA. She has mild ischemic cardiomyopathy. She came with a fall, she is unsure as to why and then right hip pain and has right hip fracture. She would EKG done and with sinus tachycardia she would diffuse ST depression. With normal heart rate or ST depression is improved. Her troponins are minimally elevated and flat. She denies any chest pain or shortness of breath. She has not had any recent exertional chest pain. However she has minimal activity level. Review of Systems 2 Constitutional: Constitutional: Reports frequent falls, Reports poor appetite and Reports weakness Eyes: Eyes: Reports no additional eye complaints Cardiovascular: Cardiovascular: Reports no additional cardiovascular complaints Respiratory: Respiratory: Reports no additional respiratory complaints Gastrointestinal: Gastrointestinal: Reports no additional gastrointestinal complaints Genitourinary: Genitourinary: Reports no additional female genitourinary complaints Musculoskeletal: Musculoskeletal: Reports no additional musculoskeletal complaints Integumentary/Breasts: Skin/Breast: Reports system reviewed and no additional complaints, except as docu Neurologic: Reports system reviewed and no additional complaints, except as documented, Reports frequent falls and Reports weakness Psychiatric: Psychiatric: Reports no additional psychiatric complaints Endocrine: Endocrine: Reports no additional endocrine complaints [facility] Past Medical History Medical History COPD (chronic obstructive pulmonary disease) History of acute respiratory distress syndrome (ARDS) (~08/2021) Seizure (~11/2021) History of non-ST elevation myocardial infarction (NSTEMI) (~11/2021) History of multiple cerebrovascular accidents (CVAs) Nicotine dependence, cigarettes, uncomplicated Cocaine abuse Respiratory failure with hypoxia Normocytic anemia History of drug abuse Major depression, recurrent Oxygen dependent Takotsubo cardiomyopathy Cocaine abuse Acute CHF (congestive heart failure) Hypercapnic respiratory failure, chronic Hemiparesis affecting right side as late effect of cerebrovascular accident Asymptomatic carotid artery stenosis with infarction Chronic GERD Environmental allergies Anxiety, generalized Lipid disorder Asthma, moderate Family History Family History Father Substance abuse Mother Brain cancer Maternal Grandfather History of heart attack Maternal Grandmother History of heart attack Paternal Grandfather No problems noted. Paternal Grandmother No problems noted. Brother No problems noted. Brother No problems noted. Son No problems noted. Daughter No problems noted. Other Mental health disorder Surgical History Surgical History History of left-sided carotid endarterectomy (~09/2012) History of tonsillectomy and adenoidectomy Social History Social History Household Members: Children Housing: [facility] Do you presently have visiting nurse or other home services: No Unable to assess alcohol history related to: Refusing to respond Alcohol intake: former Patient Tobacco Use Status: Former Tobacco user Tobacco use type: Cigarette Cigarettes Per Day: 2 Years Smoked: COUPLE YEAR AGO PER PT e-Cigarette/Vaping Use: Never Used Second Hand Smoke Exposure: No Advance Directives Date on File: 11/25/21 service: No Current occupational status: disabled Cognitive needs: No Hearing needs: No Vision needs: No Meds Allergies Allergy/AdvReac Type Severity Reaction Status Date / Time crab Allergy Unknown Hives Verified 06/24/23 11:02 penicillin V Allergy Unknown hives Verified 06/24/23 11:02 Penicillins [PENICILLINS] Allergy Unknown hives Verified 06/24/23 11:02 SEASONAL ALLERGIES Allergy Mild RUNNY NOSE Uncoded 03/17/23 01:46 Active Medications: Current Medications Acetaminophen (Acetaminophen 325 Mg Tablet) 650 mg PO Q6H PRN PRN Reason: Pain, Mild (Pain Scale 1-3) Last Admin: 09/24/23 14:10 Dose: 650 mg Albuterol Sulfate (Albuterol Sulfate 90 Mcg 8 Gm Inhaler) 2 puff INHALE Q6H PRN PRN Reason: bronchospasm Albuterol/Ipratropium (Albuterol/Iprat 2.5/0.5mg 3 Ml Ampul.Neb) 3 ml INHALE TID PRN PRN Reason: shortness of breath Amlodipine Besylate (Amlodipine Besylate 5 Mg Tablet) 5 mg PO DAILY [facility]; Protocol Last Admin: 09/25/23 08:46 Dose: 5 mg Atorvastatin Calcium (Atorvastatin Calcium 40 Mg Tablet) 40 mg PO BEDTIME [facility] Last Admin: 09/24/23 20:38 Dose: 40 mg Benzonatate (Benzonatate 100 Mg Capsule) 100 mg PO TID PRN PRN Reason: Cough Docusate Sodium (Docusate Sodium 100 Mg Capsule) 100 mg PO DAILY PRN PRN Reason: Constipation Folic Acid (Folic Acid 1 Mg Tablet) 1 mg PO DAILY [facility] Last Admin: 09/25/23 08:47 Dose: 1 mg Hydromorphone HCl (Hydromorphone Hcl 0.5 Mg/0.5 Ml Syringe) 0.5 mg IVPUSH Q4H PRN; Protocol PRN Reason: Pain, Severe (Pain Scale 7-10) Last Admin: 09/25/23 09:57 Dose: 0.5 mg Cefazolin Sodium/Dextrose (Ancef) 2 gm in 50 mls @ 100 mls/hr IV PREOP ONE Stop: 09/25/23 07:29 Levetiracetam (Levetiracetam 500 Mg Tablet) 500 mg PO BID [facility] Last Admin: 09/25/23 08:46 Dose: 500 mg Melatonin (Melatonin 3 Mg Tablet) 6 mg PO BEDTIME PRN PRN Reason: Insomnia Metoprolol Tartrate (Metoprolol Tartrate 50 Mg Tablet) 50 mg PO BID [facility]; Protocol Mirtazapine (Mirtazapine 30 Mg Tablet) 30 mg PO BEDTIME [facility] Last Admin: 09/24/23 20:38 Dose: 30 mg Omeprazole (Omeprazole 20 Mg Capsule.Dr) 20 mg PO DAILY@0630 [facility] Last Admin: 09/25/23 05:17 Dose: 20 mg Ondansetron HCl (Ondansetron Hcl 4 Mg/2 Ml Vial) 4 mg IVPUSH Q8H PRN PRN Reason: Nausea and Vomiting Sertraline HCl (Sertraline Hcl 25 Mg Tablet) 25 mg PO DAILY [facility] Last Admin: 09/25/23 08:46 Dose: 25 mg Sodium Chloride (0.9 % Sodium Chloride Flush 3 Ml Syringe) 3 ml IVFLUSH QSHIFT [facility] Last Admin: 09/25/23 08:47 Dose: 3 ml Physical Exam 2 Vital Signs: Vital Signs: Last Vital Signs Temp 98.7 F 09/25/23 07:31 Pulse 122 H 09/25/23 08:41 Resp 16 09/25/23 07:31 BP 188/84 H 09/25/23 07:31 Pulse Ox 97 09/25/23 08:41 O2 Del Method Nasal Cannula 09/25/23 08:41 O2 Flow Rate 5 09/25/23 08:41 Oxygen Flow Rate 4 09/24/23 04:01 BMI result Body Mass Index 15.2 Const: General: cooperative, comfortable, alert and awake Nutritional Appearance: cachectic Orientation/consciousness: patient oriented x3 HEENT: Head: Yes normocephalic and Yes atraumatic Neck: Neck: Yes trachea midline, Yes supple and Yes no JVD Resp: Effort & Inspection: normal respiratory effort Auscultation: no crackles, no rales, no wheezes and diminished lung sounds Cardio: Jugular venous distension: no JVD Palpation: normal PMI Rate: r egular rate Rhythm: regular rhythm Heart sounds: S1 normal heart sound present, S2 normal heart sound present, no click, no gallops, no murmurs and no rubs GI: Auscultation: normal bowel sounds Skin: General skin exam: no rashes or lesions noted Neuro: General: patient oriented x3 and no focal motor deficits Extrem: General: Yes no clubbing, cyanosis or edema Objective Labs and Meds 09/25/23 05:41 09/24/23 06:17 Lab results: Laboratory Results - last 24 hr 09/25/23 05:41 WBC 11.3 H RBC 3.80 L Hgb 9.7 L Hct 31.9 L MCV 83.9 MCH 25.5 L MCHC 30.4 L RDW 13.6 Plt Count 244 MPV 10.6 Absolute Nucleated RBC 0.000 Nucleated RBC % (auto) 0.0 EKG with sinus tachycardia shows diffuse ST depression Assessment and Plan (1) Preoperative cardiovascular examination: Status: Acute Preoperative cardiovascular risk stratification this middle-aged woman with multiple comorbidities including cachexia with poor functional status, COPD, coronary disease presents with a fall with right hip fracture and has to undergo urgent right hip repair. She does have evidence of myocardial ischemia under demand with elevated heart rate showing EKG changes as well as mildly elevated troponins. However there is no evidence of acute coronary syndrome. Appears to be underlying stable coronary artery disease in the LAD territory. Increase metoprolol to 50 mg b.i.d.. She remains intermediate to high risk for perioperative cardiovascular morbidity mortality but has to undergo this surgeon surgery as required. Treat hypoxemia, hypovolemia, hypotension as well as blood loss aggressively. Maintain hematocrit over 30. Once stable and clinically possible to give her would restart her aspirin. Continue high- intensity statin therapy. Preoperative echocardiogram is not going to change her risk or management plan Will sign of the case. Procedures Date of Service Date of Service: 09/25/23
--- NOTE | 2023-09-25 12:02 | P.PNIM_ITS ---
Subjective Subjective Date of Service: 09/25/23 Interval History: Being followed for right hip fracture is NPO for possible surgery this afternoon. Complaining of right hip pain requesting for pain medication, denies chest pain, no shortness of breath, no lightheadedness, no dizziness, is on 2 L of home oxygen,, no cough. Ambulates at home with a cane have right sided weakness due to prior CVA. Review of Systems All other system reviewed and negative. Physical Exam 2 Vital Signs: Vital Signs: Last Vital Signs Temp 98.7 F 09/25/23 07:31 Pulse 122 H 09/25/23 08:41 Resp 16 09/25/23 07:31 BP 188/84 H 09/25/23 07:31 Pulse Ox 97 09/25/23 08:41 O2 Del Method Nasal Cannula 09/25/23 08:41 O2 Flow Rate 5 09/25/23 08:41 Oxygen Flow Rate 4 09/24/23 04:01 BMI result Body Mass Index 15.2 Const: Other: General awake alert x3, in no acute distress. Anicteric sclera Neck supple no JVD. CVS regular rate rhythm, Respiratory lungs occasional wheeze, no respiratory distress. Gastrointestinal abdomen soft, non tender, bowel sounds audible, no guarding , no rigidity. Extremities no edema.Rt leg shortened and externally rotated. Neuro right hand contraction deformity , speech clear. Skin no rash Psych appropriate affect Objective Data Active Medications Acetaminophen (Acetaminophen 325 Mg Tablet) 650 mg PO Q6H PRN PRN Reason: Pain, Mild (Pain Scale 1-3) Last Admin: 09/24/23 14:10 Dose: 650 mg Documented By: ADONIS Albuterol Sulfate (Albuterol Sulfate 90 Mcg 8 Gm Inhaler) 2 puff INHALE Q6H PRN PRN Reason: bronchospasm Albuterol/Ipratropium (Albuterol/Iprat 2.5/0.5mg 3 Ml Ampul.Neb) 3 ml INHALE TID PRN PRN Reason: shortness of breath Amlodipine Besylate (Amlodipine Besylate 5 Mg Tablet) 5 mg PO DAILY [facility]; Protocol Last Admin: 09/25/23 08:46 Dose: 5 mg Documented By: MAXWELL Atorvastatin Calcium (Atorvastatin Calcium 40 Mg Tablet) 40 mg PO BEDTIME [facility] Last Admin: 01/13/24 20:38 Dose: 40 mg Documented By: FANTA Benzonatate (Benzonatate 100 Mg Capsule) 100 mg PO TID PRN PRN Reason: Cough Docusate Sodium (Docusate Sodium 100 Mg Capsule) 100 mg PO DAILY PRN PRN Reason: Constipation Folic Acid (Folic Acid 1 Mg Tablet) 1 mg PO DAILY [facility] Last Admin: 09/25/23 08:47 Dose: 1 mg Documented By: MAXWELL Hydromorphone HCl (Hydromorphone Hcl 0.5 Mg/0.5 Ml Syringe) 0.5 mg IVPUSH Q4H PRN; Protocol PRN Reason: Pain, Severe (Pain Scale 7-10) Last Admin: 09/25/23 09:57 Dose: 0.5 mg Documented By: MAXWELL Cefazolin Sodium/Dextrose (Ancef) 2 gm in 50 mls @ 100 mls/hr IV PREOP ONE Stop: 09/25/23 07:29 Levetiracetam (Levetiracetam 500 Mg Tablet) 500 mg PO BID [facility] Last Admin: 09/25/23 08:46 Dose: 500 mg Documented By: MAXWELL Melatonin (Melatonin 3 Mg Tablet) 6 mg PO BEDTIME PRN PRN Reason: Insomnia Metoprolol Tartrate (Metoprolol Tartrate 50 Mg Tablet) 50 mg PO BID [facility]; Protocol Mirtazapine (Mirtazapine 30 Mg Tablet) 30 mg PO BEDTIME [facility] Last Admin: 09/24/23 20:38 Dose: 30 mg Documented By: FANTA Omeprazole (Omeprazole 20 Mg Capsule.) 20 mg PO DAILY@0630 [facility] Last Admin: 09/25/23 05:17 Dose: 20 mg Documented By: NABEEL Ondansetron HCl (Ondansetron Hcl 4 Mg/2 Ml Vial) 4 mg IVPUSH Q8H PRN PRN Reason: Nausea and Vomiting Sertraline HCl (Sertraline Hcl 25 Mg Tablet) 25 mg PO DAILY [facility] Last Admin: 09/25/23 08:46 Dose: 25 mg Documented By: MAXWELL Sodium Chloride (0.9 % Sodium Chloride Flush 3 Ml Syringe) 3 ml IVFLUSH QSHIFT [facility] Last Admin: 09/25/23 08:47 Dose: 3 ml Documented By: MAXWELL Labs 09/25/23 05:41 09/24/23 06:17 Labs: Laboratory Results - last 24 hr 09/25/23 05:41 MCV 83.9 MCH 25.5 L MCHC 30.4 L RDW 13.6 Plt Count 244 MPV 10.6 Absolute Nucleated RBC 0.000 Nucleated RBC % (auto) 0.0 Microbiology Microbiology Results: Microbiology 09/24/23 06:17 Blood Culture - Preliminary Blood - Venous No growth after 24 hours. 09/24/23 06:17 Blood Culture - Preliminary Blood - Venous No growth after 24 hours. Assessment and Plan (1) Closed subcapital fracture of femur: Status: Acute (2) COPD (chronic obstructive pulmonary disease): Status: Acute Plan 57-year-old female with a PMH significant for?COPD chronically on 3L NC, HTN, carotid artery stenosis s/p CVA 2016 with residual right-sided hemiparesis, seizure disorder s/p CVA, CAD, takotsubo cardiomyopathy, and MDD who presents to the ED for evaluation of right hip and leg pain after fall at home. Pt will be admitted to the hospital for treatment and further evaluation of right hip fracture. Right hip fracture due to fall at home, complaining of hip pain Dilaudid 0.5 mg Q 4 for pain management Case discussed with Cardiology patient is intermediate to high risk, will increase dose of metoprolol to 50 b.i.d. for better blood pressure and heart rate Seen by Orthopedic surgery patient NPO for possible surgery this afternoon Pneumatic boots for DVT prophylaxis, pain management, PT Sirs criteria No evidence of bacterial infection: UA negative, CXR negative, patient afebrile Sinus Tachycardia secondary to pain and rebound tachycardia from metoprolol noncompliance, heart rate improving, tachypnea resolved WBC trending down, likely reactive Lactic acid WNL No indication for abx at this time, will increase dose of metoprolol to 50 mg b.i.d. COPD no acute exacerbation continue home inhalers and 3 L of home oxygen Hx of CVA on aspirin and statin at baseline with right hemiparesis ambulates with the help of cane Seizure disorder S/P CVA in 2015, Continue keppra GERD Continue PPI Mood disorder Continue mirtazapine, sertraline Full Code DVT Prophylaxis: Pneumatic boots d/t impending surgery Pt will require continued inpatient hospitalization for treatment of right hip fracture with surgical procedure. Quality Stroke Does the patient have a stroke diagnosis?: No VTE Prior VTE?: No VTE Risk Level:: Medical - moderate - high VTE Device Contraindication: N/A - Device Ordered VTE Drug Contraindication: Treatment Not Indicated
--- NOTE | 2023-09-25 12:58 | P.CONAN_ITS ---
HPI - Anesthesia Eval Consult details Narrative: right hip fracture PMFSH Active Problems Active Problems: All Active Problems (Updated 09/25/23 @ 11:33 by Trenton Feng MD) Preoperative cardiovascular examination (Acute) Abnormal ECG (Acute) Elevated troponin (Acute) Closed subcapital fracture of femur (Acute) Anemia (Acute) COPD (chronic obstructive pulmonary disease) (Acute) Supplemental oxygen dependent (Acute) Coronary artery disease (Acute) Major depression, recurrent (Acute) Seizure (Acute ~11/2021) History of non-ST elevation myocardial infarction (NSTEMI) (Acute ~11/2021) Takotsubo cardiomyopathy (Acute) History of multiple cerebrovascular accidents (CVAs) (Acute) Hemiparesis affecting right side as late effect of cerebrovascular accident (Acute) Respiratory failure with hypoxia (Acute) Chronic lung disease (Acute) Hypercapnic respiratory failure (Acute) Acute on chronic respiratory acidosis (Acute) Oxygen dependent (Acute) Nicotine dependence, cigarettes, uncomplicated (Acute) Normocytic anemia (Acute) Moderate malnutrition (Acute) Muscle spasm (Acute) Noncompliance (Acute) Past Medical History Medical History COPD (chronic obstructive pulmonary disease) History of acute respiratory distress syndrome (ARDS) (~08/2021) Seizure (~11/2021) History of non-ST elevation myocardial infarction (NSTEMI) (~11/2021) History of multiple cerebrovascular accidents (CVAs) Nicotine dependence, cigarettes, uncomplicated Cocaine abuse Respiratory failure with hypoxia Normocytic anemia History of drug abuse Major depression, recurrent Oxygen dependent Takotsubo cardiomyopathy Cocaine abuse Acute CHF (congestive heart failure) Hypercapnic respiratory failure, chronic Hemiparesis affecting right side as late effect of cerebrovascular accident Asymptomatic carotid artery stenosis with infarction Chronic GERD Environmental allergies Anxiety, generalized Lipid disorder Asthma, moderate Family History Family History Father Substance abuse Mother Brain cancer Maternal Grandfather History of heart attack Maternal Grandmother History of heart attack Paternal Grandfather No problems noted. Paternal Grandmother No problems noted. Brother No problems noted. Brother No problems noted. Son No problems noted. Daughter No problems noted. Other Mental health disorder Family history of problems with anesthesia: No Surgical History Surgical History History of left-sided carotid endarterectomy (~09/2012) History of tonsillectomy and adenoidectomy History of Problems with Anesthesia: No Social History Social History Household Members: Children Housing: [facility] Do you presently have visiting nurse or other home services: No Unable to assess alcohol history related to: Refusing to respond Alcohol intake: former Patient Tobacco Use Status: Former Tobacco user Tobacco use type: Cigarette Cigarettes Per Day: 2 Years Smoked: COUPLE YEAR AGO PER PT e-Cigarette/Vaping Use: Never Used Second Hand Smoke Exposure: No Advance Directives Date on File: 11/25/21 service: No Current occupational status: disabled Cognitive needs: No Hearing needs: No Vision needs: No Meds Allergies Allergy/AdvReac Type Severity Reaction Status Date / Time crab Allergy Unknown Hives Verified 06/24/23 11:02 penicillin V Allergy Unknown hives Verified 06/24/23 11:02 Penicillins [PENICILLINS] Allergy Unknown hives Verified 06/24/23 11:02 SEASONAL ALLERGIES Allergy Mild RUNNY NOSE Uncoded 03/17/23 01:46 Active Medications: Current Medications Acetaminophen (Acetaminophen 325 Mg Tablet) 650 mg PO Q6H PRN PRN Reason: Pain, Mild (Pain Scale 1-3) Last Admin: 09/24/23 14:10 Dose: 650 mg Albuterol Sulfate (Albuterol Sulfate 90 Mcg 8 Gm Inhaler) 2 puff INHALE Q6H PRN PRN Reason: bronchospasm Albuterol/Ipratropium (Albuterol/Iprat 2.5/0.5mg 3 Ml Ampul.Neb) 3 ml INHALE TID PRN PRN Reason: shortness of breath Amlodipine Besylate (Amlodipine Besylate 5 Mg Tablet) 5 mg PO DAILY [facility]; Protocol Last Admin: 09/25/23 08:46 Dose: 5 mg Atorvastatin Calcium (Atorvastatin Calcium 40 Mg Tablet) 40 mg PO BEDTIME [facility] Last Admin: 09/24/23 20:38 Dose: 40 mg Benzonatate (Benzonatate 100 Mg Capsule) 100 mg PO TID PRN PRN Reason: Cough Docusate Sodium (Docusate Sodium 100 Mg Capsule) 100 mg PO DAILY PRN PRN Reason: Constipation Folic Acid (Folic Acid 1 Mg Tablet) 1 mg PO DAILY [facility] Last Admin: 09/25/23 08:47 Dose: 1 mg Hydromorphone HCl (Hydromorphone Hcl 0.5 Mg/0.5 Ml Syringe) 0.5 mg IVPUSH Q4H PRN; Protocol PRN Reason: Pain, Severe (Pain Scale 7-10) Last Admin: 09/25/23 09:57 Dose: 0.5 mg Cefazolin Sodium/Dextrose (Ancef) 2 gm in 50 mls @ 100 mls/hr IV PREOP ONE Stop: 09/25/23 07:29 Levetiracetam (Levetiracetam 500 Mg Tablet) 500 mg PO BID [facility] Last Admin: 09/25/23 08:46 Dose: 500 mg Melatonin (Melatonin 3 Mg Tablet) 6 mg PO BEDTIME PRN PRN Reason: Insomnia Metoprolol Tartrate (Metoprolol Tartrate 50 Mg Tablet) 50 mg PO BID [facility]; Protocol Mirtazapine (Mirtazapine 30 Mg Tablet) 30 mg PO BEDTIME [facility] Last Admin: 09/24/23 20:38 Dose: 30 mg Omeprazole (Omeprazole 20 Mg Capsule.Dr) 20 mg PO DAILY@0630 [facility] Last Admin: 09/25/23 05:17 Dose: 20 mg Ondansetron HCl (Ondansetron Hcl 4 Mg/2 Ml Vial) 4 mg IVPUSH Q8H PRN PRN Reason: Nausea and Vomiting Oxycodone HCl (Oxycodone Hcl Immed Release 5 Mg Tablet) 5 mg PO Q4H PRN PRN Reason: Pain, Moderate(Pain Scale 4-6) Sertraline HCl (Sertraline Hcl 25 Mg Tablet) 25 mg PO DAILY [facility] Last Admin: 09/25/23 08:46 Dose: 25 mg Sodium Chloride (0.9 % Sodium Chloride Flush 3 Ml Syringe) 3 ml IVFLUSH QSHIFT [facility] Last Admin: 09/25/23 08:47 Dose: 3 ml Exam Height,Weight and Vital Signs: Height 5 ft 2 in Weight 37.8 kg Last Vital Signs Temp 97.9 F 09/25/23 12:00 Pulse 85 09/25/23 12:00 Resp 17 09/25/23 12:00 BP 137/74 09/25/23 12:00 Pulse Ox 95 09/25/23 12:00 O2 Del Method Nasal Cannula 09/25/23 12:00 O2 Flow Rate 2 09/25/23 12:00 Oxygen Flow Rate 4 09/24/23 04:01 Pertinent Lab Results Pertinent Lab Results: Laboratory Tests 09/24/23 09/24/23 09/24/23 04:55 06:17 06:18 WBC 14.7 H RBC 3.86 L Hgb 10.0 L Hct 32.7 L MCV 84.7 MCH 25.9 L MCHC 30.6 L RDW 13.6 Plt Count 293 D MPV 10.0 Immature Gran % (Auto) 0.4 Neut % (Auto) 88.9 H Lymph % (Auto) 6.3 L [place] % (Auto) 4.2 Eos % (Auto) 0.1 Baso % (Auto) 0.1 Lymph # (Auto) 0.9 L [place] # (Auto) 0.6 Eos # (Auto) 0.0 Baso # (Auto) 0.0 Abs Immat Gran (auto) 0.06 H Absolute Neuts (auto) 13.1 H Absolute Nucleated RBC 0.000 Nucleated RBC % (auto) 0.0 PT 12.4 INR 1.0 VBG pH VBG pCO2 VBG pO2 VBG HCO3 VBG O2 Saturation VBG Base Excess Sodium 135 Potassium 3.9 Chloride 96 Carbon Dioxide 26 Anion Gap 17 BUN 8 L Creatinine 0.75 Estim Creat Clear Calc 48.8 Estimated GFR > 60 Random Glucose 120 H Lactic Acid 1.9 Calcium 9.8 Magnesium 2.2 Total Bilirubin 0.4 Direct Bilirubin 0.2 AST 22 ALT 14 Alkaline Phosphatase 87 Total Creatine Kinase 111 Troponin I High Sens 70.1 H* D B-Natriuretic Peptide 29 Total Protein 7.7 Albumin 4.2 Urine Color Urine Appearance Urine pH Ur Specific [place] Urine Protein Urine Glucose (UA) Urine Ketones Urine Blood Urine Nitrite Ur Leukocyte Esterase Urine Opiates Screen Urine Fentanyl Screen Ur Barbiturates Screen Ur Phencyclidine Scrn Ur Amphetamines Screen U Benzodiazepines Scrn Urine Cocaine Screen U Marijuana (THC) Screen Blood Type AB Positive Antibody Screen NEGATIVE 09/24/23 09/24/23 09/24/23 06:19 06:47 08:41 WBC RBC Hgb Hct MCV MCH MCHC RDW Plt Count MPV Immature Gran % (Auto) Neut % (Auto) Lymph % (Auto) [place] % (Auto) Eos % (Auto) Baso % (Auto) Lymph # (Auto) [place] # (Auto) Eos # (Auto) Baso # (Auto) Abs Immat Gran (auto) Absolute Neuts (auto) Absolute Nucleated RBC Nucleated RBC % (auto) PT INR VBG pH 7.46 H VBG pCO2 43 VBG pO2 61 VBG HCO3 31 H VBG O2 Saturation 93.0 VBG Base Excess 6.6 Sodium Potassium Chloride Carbon Dioxide Anion Gap BUN Creatinine Estim Creat Clear Calc Estimated GFR Random Glucose Lactic Acid Calcium Magnesium Total Bilirubin Direct Bilirubin AST ALT Alkaline Phosphatase Total Creatine Kinase Troponin I High Sens 60.3 H* B-Natriuretic Peptide Total Protein Albumin Urine Color Yellow Urine Appearance Clear Urine pH 5.5 Ur Specific [place] 1.015 Urine Protein Negative Urine Glucose (UA) Negative Urine Ketones Negative Urine Blood Negative Urine Nitrite Negative Ur Leukocyte Esterase Negative Urine Opiates Screen Not Detected Urine Fentanyl Screen POSITIVE H Ur Barbiturates Screen Not Detected Ur Phencyclidine Scrn Not Detected Ur Amphetamines Screen Not Detected U Benzodiazepines Scrn Not Detected Urine Cocaine Screen Not Detected U Marijuana (THC) Screen Not Detected Blood Type Antibody Screen 09/25/23 05:41 WBC 11.3 H RBC 3.80 L Hgb 9.7 L Hct 31.9 L MCV 83.9 MCH 25.5 L MCHC 30.4 L RDW 13.6 Plt Count 244 MPV 10.6 Immature Gran % (Auto) Neut % (Auto) Lymph % (Auto) [place] % (Auto) Eos % (Auto) Baso % (Auto) Lymph # (Auto) [place] # (Auto) Eos # (Auto) Baso # (Auto) Abs Immat Gran (auto) Absolute Neuts (auto) Absolute Nucleated RBC 0.000 Nucleated RBC % (auto) 0.0 PT INR VBG pH VBG pCO2 VBG pO2 VBG HCO3 VBG O2 Saturation VBG Base Excess Sodium Potassium Chloride Carbon Dioxide Anion Gap BUN Creatinine Estim Creat Clear Calc Estimated GFR Random Glucose Lactic Acid Calcium Magnesium Total Bilirubin Direct Bilirubin AST ALT Alkaline Phosphatase Total Creatine Kinase Troponin I High Sens B-Natriuretic Peptide Total Protein Albumin Urine Color Urine Appearance Urine pH Ur Specific [place] Urine Protein Urine Glucose (UA) Urine Ketones Urine Blood Urine Nitrite Ur Leukocyte Esterase Urine Opiates Screen Urine Fentanyl Screen Ur Barbiturates Screen Ur Phencyclidine Scrn Ur Amphetamines Screen U Benzodiazepines Scrn Urine Cocaine Screen U Marijuana (THC) Screen Blood Type Antibody Screen Airway Mallampati Class: II TM Dist: >3cm Neck ROM: Full Loose/Missing/Broken Teeth: No Heart: rrr Lungs: cta Assessment and Plan Assessment Anesthesia Assessment: Anesthesia Plan Discussed and Chart Reviewed Final Anesthetic Review Family History of Problems with Anesthesia: No History of Problems with Anesthesia: No NPO: Yes ASA Class: III and Emergency Final Preanesthetic Review: No Changes in Pt Med Stat, Meds/Allgs Chart Reviewed, Consent Obtained/Reviewed and Anes Risks/Benef Reviewed Patient Risk: High Procedure Risk: Intermediate Anesthetic Plan Anesthetic Plan: Spinal Disposition: Standard PACU
--- NOTE | 2023-09-25 13:38 | MHC.SHP ---
Pre-Procedural Eval Section A Date of Service: 09/25/23 The patient is an INPATIENT: Yes Changes since office visit: No Cold of Flu in the past 2 weeks, No New Medical Problems, No Changes in Medication and No Patient answered all questions The History & Physical has been completed within 30 days and I have reviewed it.: Yes Section B Chief Complaint: Right hip fracture Allergies: Allergies Allergy/AdvReac Type Severity Reaction Status Date / Time crab Allergy Unknown Hives Verified 06/24/23 11:02 penicillin V Allergy Unknown hives Verified 06/24/23 11:02 Penicillins [PENICILLINS] Allergy Unknown hives Verified 06/24/23 11:02 SEASONAL ALLERGIES Allergy Mild RUNNY NOSE Uncoded 03/17/23 01:46 Plan I have reviewed the history and physical and performed a pertinent physical examination on my patient. No changes have occurred unless specified. Time Spent With Patient Time: Total time managing care of this patient today ____ minutes.
--- NOTE | 2023-09-25 14:46 | PM.OP ---
Brief Operative Note Date of Service: 09/25/23 Pre-op diagnosis: Right femoral neck fracture Post-op diagnosis: same Procedure: CRPP right femoral neck Implants: [place] 6.5 partially threaded cancellous screws x 3 Surgeon: Vicente Peralta MD Anesthesia: spinal Was an Leather Leveler used for this Procedure?: No Estimated blood loss (mL): 20 IV fluids (mL): 500 Pathology: none sent Condition: stable Disposition: PACU
[2023-09-25] MEDS: Benzonatate 100 MG CAPSULE PO (20:49)
[2023-09-25] MEDS: Metoprolol Tartrate 50 MG TABLET PO (20:49)
[2023-09-25] MEDS: Atorvastatin Calcium 40 MG TABLET PO (20:49)
[2023-09-25] MEDS: Mirtazapine 30 MG TABLET PO (20:49)
[2023-09-25] MEDS: Melatonin 3 MG TABLET 6 MG PO (20:50)
[2023-09-25] MEDS: Acetaminophen 325 MG TABLET 650 MG PO (20:52)
[2023-09-26] VITALS (8 sets, daily range): BP systolic 108–166; BP diastolic 52–67; PULSE 65–96; RESP 16–20; TEMP 36.1–36.7; O2SAT 91–100; BMI 15.7
[2023-09-26] MEDS: Acetaminophen 325 MG TABLET 650 MG PO ×2 (03:50→21:35)
[2023-09-26] MEDS: oxyCODONE HCl Immed Release 5 MG TABLET PO ×2 (03:50→18:02)
[2023-09-26] MEDS: HYDROmorphone HCl 0.5 MG/0.5 ML SYRINGE IVPUSH ×4 (05:49→19:53)
[2023-09-26] MEDS: Omeprazole 20 MG CAPSULE.DR PO (05:49)
[2023-09-26 06:20] LABS: Anion Gap 11 (12-20); Blood Urea Nitrogen 18 mg/dL (9-16); Calcium 9.3 mg/dL (8.4-10.2); Carbon Dioxide 37 mmol/L (22-29); Chloride 93 mmol/L (96-108); Creatinine Clr Calc Pharmacy 57.1; Estimated Glomerular Filt Rate > 60; Glucose Random 133 mg/dL (60-115); Potassium 4.4 mmol/L (3.3-5.1); Sodium 137 mmol/L (135-145)
[2023-09-26 06:40] LABS: Hematocrit 27.2 % (37.0-47.0); Hemoglobin 8.2 g/dl (12.0-16.0); Mean Corpuscular HGB Conc 30.1 g/dl (31.0-35.0); Mean Corpuscular Hemoglobin 25.8 pg (27.0-33.0); Mean Corpuscular Volume 85.5 fL (80.0-98.0); Mean Platelet Volume 11.1 fL (9.4-12.3); Platelet Count 220 X10*3/uL (160-400); Red Blood Count 3.18 X10*6/uL (4.20-5.50); Red Cell Distribution Width 13.2 % (11.0-16.0); White Blood Count 11.3 X10*3/uL (4.8-10.8)
--- NOTE | 2023-09-26 07:00 | CA_ITS ---
Transthoracic Echocardiogram Patient (Last, First, Middle): Oxana Bragg L Gender: Female Date of : 1965 Age: 57 Procedure Date: 09/26/2023 Procedure Type: Transthoracic Echocardiogram Location: [facility] Height: 157.48 cm Weight: 37.65 kg BSA: 1.32 m2 Heart Rate: 64 bpm BP: 117 / 56 mmHg Business Planning Manager: Referring MD: Claudia BRIGGS Symptoms: Hx of HFrEF, pre-op Study Quality: Technically Difficult ECG Rhythm: Sinus Conclusions: - The left ventricular systolic function is mildly decreased. The calculated ejection fraction is 43% by biplane method. - The basal inferior, basal anteroseptal, mid anteroseptal, and basal inferolateral segments are hypokinetic. - There is mild aortic valve regurgitation. - There is mild tricuspid valve regurgitation. - Mild pulmonary hypertension is present. Findings Left Ventricle Normal left ventricular cavity size. There is normal left ventricular wall thickness. The left ventricular systolic function is mildly decreased. The calculated ejection fraction is 43% by biplane method. There is evidence of regional wall motion abnormalities. Diastolic function is normal for age. Wall Motion Rest Echo Findings The basal inferior, basal anteroseptal, mid anteroseptal, and basal inferolateral segments are hypokinetic. Right Ventricle Normal right ventricular cavity size. There is mildly decreased right ventricular systolic function. Atria Both atria are normal in size. Aortic Valve The aortic valve was not well visualized. There is no aortic valve stenosis. There is mild aortic valve regurgitation. Mitral Valve The mitral valve appears normal. There is no mitral valve regurgitation. There is no mitral valve stenosis. Pulmonic Valve The pulmonic valve is likely normal. Tricuspid Valve Normal tricuspid valve structure. There is mild tricuspid valve regurgitation. Mild pulmonary hypertension is present. Great Vessels The asc aorta is normal in size. Venous The inferior vena cava is normal in size and collapses greater than 50% with inspiration. Pericardium/Pleural There is no evidence of pericardial effusion. Prior Study Comparison No significant change compared to prior study dated: 11/25/2021. Measurements 2D Linear Measurements IVSd: 0.75 0.6-0.9/0.6-1.0 cm LVIDd: 4.51 3.9-5.3/4.2-5.9 cm LVIDd Index: 3.42 2.4-3.2/2.2-3.1 cm/m2 LVIDs: 3.41 2.0-3.6 cm LVPWd: 0.84 0.7-1.1 cm LA Diam: 2.30 2.7-3.8/3.0-4.0 cm LAIDs Index: 1.74 1.5-2.3 cm/m2 LV Mass: 140.08 67-162/88-224 g LV Mass Index: 106.12 43-95/49-115 g/m2 LVOT Diam: 1.90 3.0+(-)1.3 cm 2D Systolic Function EF 4C: 42.90 >55% EF 2C: 44.20 >55% EF BiP: 42.70 >55% Mitral Valve MV Pk E: 0.74 MV PK A: 0.69 MV Decel Time: 174.00 E/A: 1.10 E'Lateral: 9.79 E'Medial: 6.20 E/E' Med: 11.90 E/E' Lat: 7.50 PHT: 51.00 MVA PHT: 4.31 Decel [place]: 4.24 Aortic Valve AoV Pk Abe: 1.49 AoV Mn Abe: 0.93 AoV VTI: 0.33 AoV Pk Grad: 9.00 Aov Mn Grad: 4.00 JUDITH Cont.VTI: 2.01 LVOT LVOT Pk Abe: 1.05 LVOT Mn Abe: 0.68 LVOT VTI: 0.23 LVOT Pk Grad: 4.00 LVOT Mn Grad: 2.00 LVOT Diam: 1.90 LVOT Area: 2.84 Diastolic Function MV Pk E: 0.74 MV Pk A: 0.69 E/A: 1.10 E'Medial: 6.20 E/E' Med: 11.90 E' Laterial: 9.79 E/E' Lat: 7.50 Right Ventricle TAPSE (mm): 17.00 TVS' Abe: 9.57 Tricuspid Valve TR Pk Abe: 3.44 TR Pk Grad: 47.00 Great Vessels Aorta Sinus of Valsalva: 2.80 2.0-3.5 cm Ao Asc: 3.20 2.1-3.4 cm Pulmonary Valve PV Pk Abe: 0.81 Peak PV Grad: 3.00 Updated in Other Vendor System with Status of Final David Munoz MD electronically signed on 09/26/2023 1:32:25 PM with status of Final
[2023-09-26] MEDS: Metoprolol Tartrate 50 MG TABLET PO ×2 (07:50→21:41)
[2023-09-26] MEDS: levETIRAcetam 500 MG TABLET PO ×2 (07:50→21:42)
[2023-09-26] MEDS: Sertraline HCL 25 MG TABLET PO (07:50)
[2023-09-26] MEDS: amLODIPine Besylate 5 MG TABLET PO (07:50)
[2023-09-26] MEDS: 0.9 % Sodium Chloride Flush 3 ML SYRINGE IVFLUSH ×3 (07:50→21:43)
[2023-09-26] MEDS: Folic Acid 1 MG TABLET PO (07:50)
--- NOTE | 2023-09-26 09:27 | PM.PNORT ---
Subjective Subjective Date of Service: 09/26/23 Interval history: POD1 s/p rt hip CRPP Patient is resting in bed comfortably No overnight events Pain is managed No additional complaints Physical Exam Vital Signs: Vital Signs: Last Vital Signs Temp 97.5 F 09/26/23 07:15 Pulse 65 09/26/23 07:15 Resp 16 09/26/23 07:15 BP 117/56 L 09/26/23 07:15 Pulse Ox 100 09/26/23 07:15 O2 Del Method Nasal Cannula 09/26/23 07:15 O2 Flow Rate 4 09/26/23 07:15 Oxygen Flow Rate 3 09/25/23 14:49 BMI result Body Mass Index 15.2 Const: General: cooperative, healthy appearing and no acute distress Resp: Effort & Inspection: normal respiratory effort and able to speak in complete sentences Cardio: Rate: regular rate Peripheral pulses: Peripheral pulses 2+ throughout GI: Palpation (GI): Soft to palpation Skin: Lesions: no lesions Rashes: no rashes Extrem: Other: right hip dressing is c/d/i. Able to dorsi/plantar flex. Calf is supple and nontender. Sensation intact. Pedal pulse intact. Procedures Date of Service Date of Service: 09/26/23 Progress Note: A&P Assessment and plan (1) Closed subcapital fracture of femur: Status: Acute Assessment and Plan: Continue pain mgmnt Begin Lovenox for dvt ppx begin PT/OT for rt hip CRPP- WBAT Dispo planning-Pending PT eval, pain mgmnt (2) Hemiparesis affecting right side as late effect of cerebrovascular accident: Status: Acute Time Spent With Patient Time: Total time managing care of this patient today ____ minutes. Quality Stroke Does the patient have a stroke diagnosis?: No VTE Prior VTE?: No VTE Risk Level:: Medical - moderate - high VTE Device Contraindication: N/A - Device Ordered VTE Drug Contraindication: Treatment Not Indicated
--- NOTE | 2023-09-26 10:40 | MHC.CM.PN ---
Per MD in [facility], Patient will need STR. CM will update SNF referrals once PT eval is available. CM will follow.
--- NOTE | 2023-09-26 10:54 | MHC.CLN ---
PT IS MODERATELY MALNOURISHED PT WITH MILDLY DEPLETED SUBCUTANEOUS FAT AND MUSCLE MASS WITH BMI 15.7 AND 6% NONSIGNIFICANT WT LOSS X 1 YEAR WITH CHRONIC POOR PO INTAKE AND INCREASED NUTRITION NEEDS R/T ADVANCED COPD PREVIOUS WT HX 40.4KG X 1 YEAR AGO, 6% NONSIGNIFICANT WT LOSS PT FAMILIAR FROM PREVIOUS ADMISSION DIET RX: REGULAR-APPROPRIATE RECOMMEND ADDING MAGIC CUP TID TO INCREASE KCALS MONITOR PO INTAKE AND ENCOURAGE SUPPLEMENTS SEE ALSO FULL CLINICAL NUTRITION ASSESSMENT
--- NOTE | 2023-09-26 11:15 | HO.PM.IMPN ---
Subjective Subjective Date of Service: 09/26/23 Interval History: Good pain control right hip, denies lightheadedness, no dizziness, no fevers, no chills tolerating diet no nausea, no vomiting, no abdominal pain, no acute issues overnight. Review of Systems All other system reviewed and negative. Physical Exam Vital Signs: Vital Signs: Last Vital Signs Temp 97.5 F 09/26/23 07:15 Pulse 65 09/26/23 07:15 Resp 16 09/26/23 07:15 BP 117/56 L 09/26/23 07:15 Pulse Ox 100 09/26/23 07:15 O2 Del Method Nasal Cannula 09/26/23 07:15 O2 Flow Rate 4 09/26/23 07:15 Oxygen Flow Rate 3 09/25/23 14:49 BMI result Body Mass Index 15.7 Const: Other: General awake alert x3, in no acute distress. Anicteric sclera Neck supple no JVD. CVS regular rate rhythm, Respiratory lungs occasional wheeze, no respiratory distress. Gastrointestinal abdomen soft, non tender, bowel sounds audible, no guarding , no rigidity. Extremities no edema. Right hip dressing in place Neuro right hand contraction deformity , speech clear. Skin no rash Psych appropriate affect Objective Data Active Medications Acetaminophen (Acetaminophen 325 Mg Tablet) 650 mg PO Q6H PRN PRN Reason: Pain, Mild (Pain Scale 1-3) Last Admin: 09/26/23 03:50 Dose: 650 mg Documented By: LULU Albuterol Sulfate (Albuterol Sulfate 90 Mcg 8 Gm Inhaler) 2 puff INHALE Q6H PRN PRN Reason: bronchospasm Albuterol/Ipratropium (Albuterol/Iprat 2.5/0.5mg 3 Ml Ampul.Neb) 3 ml INHALE TID PRN PRN Reason: shortness of breath Amlodipine Besylate (Amlodipine Besylate 5 Mg Tablet) 5 mg PO DAILY [facility]; Protocol Last Admin: 09/26/23 07:50 Dose: 5 mg Documented By: MAXWELL Atorvastatin Calcium (Atorvastatin Calcium 40 Mg Tablet) 40 mg PO BEDTIME [facility] Last Admin: 09/25/23 20:49 Dose: 40 mg Documented By: LULU Benzonatate (Benzonatate 100 Mg Capsule) 100 mg PO TID PRN PRN Reason: Cough Last Admin: 09/25/23 20:49 Dose: 100 mg Documented By: LULU Docusate Sodium (Docusate Sodium 100 Mg Capsule) 100 mg PO DAILY PRN PRN Reason: Constipation Enoxaparin Sodium (Enoxaparin Sodium 40 Mg/0.4 Ml Syringe) 40 mg SUBCUT Q24H [facility] Fentanyl (Fentanyl Citrate/Pf 100 Mcg/2 Ml Vial) 25 mcg IVPUSH Q5M PRN; Protocol PRN Reason: Pain, Moderate(Pain Scale 4-6) Folic Acid (Folic Acid 1 Mg Tablet) 1 mg PO DAILY [facility] Last Admin: 09/26/23 07:50 Dose: 1 mg Documented By: MAXWELL Hydromorphone HCl (Hydromorphone Hcl 0.5 Mg/0.5 Ml Syringe) 0.5 mg IVPUSH Q4H PRN; Protocol PRN Reason: Pain, Severe (Pain Scale 7-10) Last Admin: 09/26/23 05:49 Dose: 0.5 mg Documented By: LULU Hydromorphone HCl (Hydromorphone Hcl 0.5 Mg/0.5 Ml Syringe) 0.25 mg IVPUSH Q5M PRN; Protocol PRN Reason: Pain, Severe (Pain Scale 7-10) Cefazolin Sodium/Dextrose (Ancef) 2 gm in 50 mls @ 100 mls/hr IV PREOP ONE Stop: 09/25/23 07:29 Levetiracetam (Levetiracetam 500 Mg Tablet) 500 mg PO BID [facility] Last Admin: 09/26/23 07:50 Dose: 500 mg Documented By: MAXWELL Melatonin (Melatonin 3 Mg Tablet) 6 mg PO BEDTIME PRN PRN Reason: Insomnia Last Admin: 09/25/23 20:50 Dose: 6 mg Documented By: LULU Metoprolol Tartrate (Metoprolol Tartrate 50 Mg Tablet) 50 mg PO BID [facility]; Protocol Last Admin: 09/26/23 07:50 Dose: 50 mg Documented By: MAXWELL Mirtazapine (Mirtazapine 30 Mg Tablet) 30 mg PO BEDTIME [facility] Last Admin: 09/25/23 20:49 Dose: 30 mg Documented By: LULU Omeprazole (Omeprazole 20 Mg Capsule.) 20 mg PO DAILY@0630 [facility] Last Admin: 09/26/23 05:49 Dose: 20 mg Documented By: LULU Ondansetron HCl (Ondansetron Hcl 4 Mg/2 Ml Vial) 4 mg IVPUSH Q8H PRN PRN Reason: Nausea and Vomiting Ondansetron HCl (Ondansetron Hcl 4 Mg/2 Ml Vial) 4 mg IVPUSH ONCE PRN PRN Reason: Nausea and Vomiting Oxycodone HCl (Oxycodone Hcl Immed Release 5 Mg Tablet) 5 mg PO Q4H PRN PRN Reason: Pain, Moderate(Pain Scale 4-6) Last Admin: 09/26/23 03:50 Dose: 5 mg Documented By: LULU Sertraline HCl (Sertraline Hcl 25 Mg Tablet) 25 mg PO DAILY [facility] Last Admin: 09/26/23 07:50 Dose: 25 mg Documented By: MAXWELL Sodium Chloride (0.9 % Sodium Chloride Flush 3 Ml Syringe) 3 ml IVFLUSH QSHIFT [facility] Last Admin: 09/26/23 07:50 Dose: 3 ml Documented By: MAXWELL Labs 09/26/23 05:17 09/26/23 05:17 Labs: Laboratory Results - last 24 hr 09/26/23 05:17 MCV 85.5 MCH 25.8 L MCHC 30.1 L RDW 13.2 Plt Count 220 MPV 11.1 Absolute Nucleated RBC 0.000 Nucleated RBC % (auto) 0.0 Anion Gap 11 L Estim Creat Clear Calc 57.1 Estimated GFR > 60 Random Glucose 133 H Calcium 9.3 Microbiology Microbiology Results: Microbiology 09/24/23 06:17 Blood Culture - Preliminary Blood - Venous No growth after 48 hours. 09/24/23 06:17 Blood Culture - Preliminary Blood - Venous No growth after 48 hours. Assessment and Plan (1) Closed subcapital fracture of femur: Status: Acute (2) COPD (chronic obstructive pulmonary disease): Status: Acute Plan 57-year-old female with a PMH significant for?COPD chronically on 3L NC, HTN, carotid artery stenosis s/p CVA 2015 with residual right-sided hemiparesis, seizure disorder s/p CVA, CAD, takotsubo cardiomyopathy, and MDD who presents to the ED for evaluation of right hip and leg pain after fall at home. Pt will be admitted to the hospital for treatment and further evaluation of right hip fracture. Right hip fracture POD1 s/p rt hip CRPP Good pain control,Continue IV Dilaudid 0.5 mg Q 4 as needed/oxycodone 5 mg q.4 hours as needed and Tylenol Lovenox for DVT prophylaxis/PT Hematocrit dropped but above transfusion threshold follow CBC and BMP, Sirs criteria No evidence of bacterial infection: UA negative, CXR negative, patient afebrile All symptoms of SIRS resolved. Coronary artery disease continue metoprolol dose increased to 50 b.i.d., continue statin and aspirin COPD no acute exacerbation, continue home inhalers and 3 L of home oxygen. Yesterday underwent right Hx of CVA on aspirin and statin at baseline with right hemiparesis ambulates with the help of cane Seizure disorder S/P CVA in 2016, Continue keppra GERD Continue PPI Mood disorder Continue mirtazapine, sertraline Full Code DVT Prophylaxis: On Lovenox Pt. will require continued inpatient hospitalization for management post operative care ,right hip surgery. Quality Stroke Does the patient have a stroke diagnosis?: No VTE Prior VTE?: No VTE Risk Level:: Medical - moderate - high VTE Device Contraindication: N/A - Device Ordered VTE Drug Contraindication: Treatment Not Indicated
[2023-09-26] MEDS: Enoxaparin Sodium 40 MG/0.4 ML SYRINGE SUBCUT (11:56)
--- NOTE | 2023-09-26 12:34 | HO.POSTANES ---
Post Anesthesia Evaluation Post Anesthesia Evaluation Date of Service: 09/26/23 Vital Signs: Vital Signs Temp Pulse Resp BP Pulse Ox O2 Del Method O2 Flow Rate 09/26/23 11:56 19 09/26/23 11:32 97.6 F 71 18 108/52 L 98 Nasal Cannula 4 09/26/23 07:15 97.5 F 65 16 117/56 L 100 Nasal Cannula 4 09/26/23 03:31 97.0 F 72 20 145/67 H 99 Nasal Cannula 4 Anesthesia: Spinal Mental Status: Awake Pain Control: Satisfactory Nausea/Vomiting: None Hydration: Adequate Anesthesia-Related Issues: No Anes. Related Issues
[2023-09-26] MEDS: Atorvastatin Calcium 40 MG TABLET PO (21:42)
[2023-09-26] MEDS: Mirtazapine 30 MG TABLET PO (21:42)
[2023-09-26] MEDS: Melatonin 3 MG TABLET 6 MG PO (21:42)
[2023-09-26] MEDS: Benzonatate 100 MG CAPSULE PO (21:42)
[2023-09-27] VITALS (10 sets, daily range): BP systolic 115–155; BP diastolic 53–67; PULSE 66–82; RESP 17–20; TEMP 36.1–36.7; O2SAT 97–100
[2023-09-27] MEDS: HYDROmorphone HCl 0.5 MG/0.5 ML SYRINGE IVPUSH ×5 (01:08→19:01)
[2023-09-27] MEDS: ondansetron HCL 4 MG/2 ML VIAL IVPUSH (01:21)
[2023-09-27] MEDS: Sodium Chloride 0.65 % Nasal 44 ML SPRBTL 1 SPRAY NOSTRIL-B (01:21)
[2023-09-27] MEDS: Omeprazole 20 MG CAPSULE.DR PO (06:17)
[2023-09-27 07:33] LABS: Hematocrit 26.1 % (37.0-47.0); Hemoglobin 7.8 g/dl (12.0-16.0); Mean Corpuscular HGB Conc 29.9 g/dl (31.0-35.0); Mean Corpuscular Hemoglobin 25.5 pg (27.0-33.0); Mean Corpuscular Volume 85.3 fL (80.0-98.0); Mean Platelet Volume 11.4 fL (9.4-12.3); Platelet Count 241 X10*3/uL (160-400); Red Blood Count 3.06 X10*6/uL (4.20-5.50); Red Cell Distribution Width 13.2 % (11.0-16.0); White Blood Count 8.5 X10*3/uL (4.8-10.8)
[2023-09-27 07:47] LABS: Anion Gap 14 (12-20); Blood Urea Nitrogen 14 mg/dL (9-16); Calcium 9.3 mg/dL (8.4-10.2); Carbon Dioxide 38 mmol/L (22-29); Chloride 91 mmol/L (96-108); Creatinine Clr Calc Pharmacy 65.3; Estimated Glomerular Filt Rate > 60; Glucose Random 130 mg/dL (60-115); Potassium 4.4 mmol/L (3.3-5.1); Sodium 139 mmol/L (135-145)
[2023-09-27 08:09] LABS: Iron 11 mcg/dL (30-160); Percent Iron Saturation 5 % (15-50); Total Iron Binding Capacity 201 mcg/dL (228-428); Unsaturated Iron Binding 190 ug/dL
[2023-09-27 08:30] LABS: Ferritin 100 ng/mL (10-250)
[2023-09-27] MEDS: Aspirin Enteric Coated 81 MG TABLET.DR PO (10:22)
[2023-09-27] MEDS: Docusate Sodium 100 MG CAPSULE PO (10:22)
[2023-09-27] MEDS: Enoxaparin Sodium 40 MG/0.4 ML SYRINGE SUBCUT (10:22)
[2023-09-27] MEDS: levETIRAcetam 500 MG TABLET PO ×2 (10:22→20:07)
[2023-09-27] MEDS: Ferrous Sulfate 324 MG TABLET.DR PO ×2 (10:22→15:31)
[2023-09-27] MEDS: amLODIPine Besylate 5 MG TABLET PO (10:22)
[2023-09-27] MEDS: Ascorbic Acid 250 MG TABLET PO ×2 (10:22→20:07)
[2023-09-27] MEDS: Sertraline HCL 25 MG TABLET PO (10:23)
[2023-09-27] MEDS: 0.9 % Sodium Chloride Flush 3 ML SYRINGE IVFLUSH ×2 (10:23→14:03)
[2023-09-27] MEDS: Folic Acid 1 MG TABLET PO (10:23)
[2023-09-27] MEDS: Metoprolol Tartrate 50 MG TABLET PO ×2 (10:23→20:07)
--- NOTE | 2023-09-27 12:08 | HO.PM.IMPN ---
Subjective Subjective Date of Service: 09/27/23 Interval History: Complaining of right hip pain was lightheaded with transfers, denies symptoms of chest pain, no palpitations, no shortness of breath, no palpitations, denies bright red blood per rectum, no dark stools.denies persistent lightheadedness or dizziness. Review of Systems All other system reviewed and negative. Physical Exam Vital Signs: Vital Signs: Last Vital Signs Temp 97.5 F 09/27/23 11:15 Pulse 66 09/27/23 11:15 Resp 20 09/27/23 11:15 BP 128/62 09/27/23 11:15 Pulse Ox 99 09/27/23 11:15 O2 Del Method Nasal Cannula 09/27/23 11:15 O2 Flow Rate 4 09/27/23 11:15 Oxygen Flow Rate 3 09/25/23 14:49 BMI result Body Mass Index 15.7 Const: Other: General awake alert x3, in no acute distress. Anicteric sclera Neck supple no JVD. CVS regular rate rhythm, Respiratory lungs occasional wheeze, no respiratory distress. Gastrointestinal abdomen soft, non tender, bowel sounds audible, no guarding , no rigidity. Extremities no edema. Right hip dressing in place Neuro right hand contraction deformity ,rt hemiparesis, speech clear. Skin no rash Psych appropriate affect Objective Data Active Medications Acetaminophen (Acetaminophen 325 Mg Tablet) 650 mg PO Q6H PRN PRN Reason: Pain, Mild (Pain Scale 1-3) Last Admin: 09/26/23 21:35 Dose: 650 mg Documented By: LULU Albuterol Sulfate (Albuterol Sulfate 90 Mcg 8 Gm Inhaler) 2 puff INHALE Q6H PRN PRN Reason: bronchospasm Albuterol/Ipratropium (Albuterol/Iprat 2.5/0.5mg 3 Ml Ampul.Neb) 3 ml INHALE TID PRN PRN Reason: shortness of breath Amlodipine Besylate (Amlodipine Besylate 5 Mg Tablet) 5 mg PO DAILY [facility]; Protocol Last Admin: 09/27/23 10:22 Dose: 5 mg Documented By: MAXWELL Ascorbic Acid (Ascorbic Acid 250 Mg Tablet) 250 mg PO BID [facility] Last Admin: 09/27/23 10:22 Dose: 250 mg Documented By: MAXWELL Aspirin (Aspirin Enteric Coated 81 Mg Tablet.) 81 mg PO DAILY [facility] Last Admin: 09/27/23 10:22 Dose: 81 mg Documented By: MAXWELL Atorvastatin Calcium (Atorvastatin Calcium 40 Mg Tablet) 40 mg PO BEDTIME [facility] Last Admin: 09/26/23 21:42 Dose: 40 mg Documented By: LULU Benzonatate (Benzonatate 100 Mg Capsule) 100 mg PO TID PRN PRN Reason: Cough Last Admin: 09/26/23 21:42 Dose: 100 mg Documented By: LULU Docusate Sodium (Docusate Sodium 100 Mg Capsule) 100 mg PO DAILY PRN PRN Reason: Constipation Last Admin: 09/27/23 10:22 Dose: 100 mg Documented By: MAXWELL Enoxaparin Sodium (Enoxaparin Sodium 40 Mg/0.4 Ml Syringe) 40 mg SUBCUT Q24H [facility] Last Admin: 09/27/23 10:22 Dose: 40 mg Documented By: MAXWELL Fentanyl (Fentanyl Citrate/Pf 100 Mcg/2 Ml Vial) 25 mcg IVPUSH Q5M PRN; Protocol PRN Reason: Pain, Moderate(Pain Scale 4-6) Ferrous Sulfate (Ferrous Sulfate 324 Mg Tablet.) 324 mg PO BIDWM [facility] Last Admin: 09/27/23 10:22 Dose: 324 mg Documented By: MAXWELL Folic Acid (Folic Acid 1 Mg Tablet) 1 mg PO DAILY [facility] Last Admin: 09/27/23 10:23 Dose: 1 mg Documented By: MAXWELL Hydromorphone HCl (Hydromorphone Hcl 0.5 Mg/0.5 Ml Syringe) 0.5 mg IVPUSH Q4H PRN; Protocol PRN Reason: Pain, Severe (Pain Scale 7-10) Last Admin: 09/27/23 10:21 Dose: 0.5 mg Documented By: MAXWELL Hydromorphone HCl (Hydromorphone Hcl 0.5 Mg/0.5 Ml Syringe) 0.25 mg IVPUSH Q5M PRN; Protocol PRN Reason: Pain, Severe (Pain Scale 7-10) Cefazolin Sodium/Dextrose (Ancef) 2 gm in 50 mls @ 100 mls/hr IV PREOP ONE Stop: 09/25/23 07:29 Levetiracetam (Levetiracetam 500 Mg Tablet) 500 mg PO BID [facility] Last Admin: 09/27/23 10:22 Dose: 500 mg Documented By: MAXWELL Melatonin (Melatonin 3 Mg Tablet) 6 mg PO BEDTIME PRN PRN Reason: Insomnia Last Admin: 09/26/23 21:42 Dose: 6 mg Documented By: LULU Metoprolol Tartrate (Metoprolol Tartrate 50 Mg Tablet) 50 mg PO BID [facility]; Protocol Last Admin: 09/27/23 10:23 Dose: 50 mg Documented By: MAXWELL Mirtazapine (Mirtazapine 30 Mg Tablet) 30 mg PO BEDTIME [facility] Last Admin: 09/26/23 21:42 Dose: 30 mg Documented By: LULU Omeprazole (Omeprazole 20 Mg Capsule.Dr) 20 mg PO DAILY@0630 [facility] Last Admin: 09/27/23 06:17 Dose: 20 mg Documented By: LULU Ondansetron HCl (Ondansetron Hcl 4 Mg/2 Ml Vial) 4 mg IVPUSH Q8H PRN PRN Reason: Nausea and Vomiting Last Admin: 09/27/23 01:21 Dose: 4 mg Documented By: LULU Ondansetron HCl (Ondansetron Hcl 4 Mg/2 Ml Vial) 4 mg IVPUSH ONCE PRN PRN Reason: Nausea and Vomiting Oxycodone HCl (Oxycodone Hcl Immed Release 5 Mg Tablet) 5 mg PO Q4H PRN PRN Reason: Pain, Moderate(Pain Scale 4-6) Last Admin: 09/26/23 18:02 Dose: 5 mg Documented By: MAXWELL Sertraline HCl (Sertraline Hcl 25 Mg Tablet) 25 mg PO DAILY [facility] Last Admin: 09/27/23 10:23 Dose: 25 mg Documented By: MAXWELL Sodium Chloride (0.9 % Sodium Chloride Flush 3 Ml Syringe) 3 ml IVFLUSH QSHIFT [facility] Last Admin: 09/27/23 10:23 Dose: 3 ml Documented By: MAXWELL Sodium Chloride (Sodium Chloride 0.65 % Nasal 44 Ml Sprbtl) 1 spray NOSTRIL-B Q1H PRN PRN Reason: dryness Last Admin: 09/27/23 01:21 Dose: 1 spray Documented By: LULU Labs 09/27/23 06:27 01/16/24 06:27 Labs: Laboratory Results - last 24 hr 09/27/23 06:27 MCV 85.3 MCH 25.5 L MCHC 29.9 L RDW 13.2 Plt Count 241 MPV 11.4 Absolute Nucleated RBC 0.000 Nucleated RBC % (auto) 0.0 Anion Gap 14 Estim Creat Clear Calc 65.3 Estimated GFR > 60 Random Glucose 130 H Calcium 9.3 Iron 11 L TIBC 201 L % Saturation 5 L Unsat Iron Binding 190 Ferritin 100 Microbiology Microbiology Results: Microbiology 09/24/23 06:17 Blood Culture - Preliminary Blood - Venous No growth after 48 hours. 09/24/23 06:17 Blood Culture - Preliminary Blood - Venous No growth after 48 hours. Assessment and Plan (1) Closed subcapital fracture of femur: Status: Acute (2) COPD (chronic obstructive pulmonary disease): Status: Acute Plan 57-year-old female with a PMH significant for?COPD chronically on 3L NC, HTN, carotid artery stenosis s/p CVA 2015 with residual right-sided hemiparesis, seizure disorder s/p CVA, CAD, takotsubo cardiomyopathy, and MDD who presents to the ED for evaluation of right hip and leg pain after fall at home. Pt will be admitted to the hospital for treatment and further evaluation of right hip fracture. Right hip fracture POD 2 s/p rt hip CRPP Will scheduled Tylenol and oxycodone for pain, and continue as needed IV Dilaudid Lovenox for DVT prophylaxis/PT recommend short-term rehab Chronic normocytic anemia : Hematocrit dropped but close to baseline, iron studies showed low iron, likely due to poor by mouth intake , will check stool guaiac Place on iron supplements,follow CBC and BMP. Sirs criteria No evidence of bacterial infection: UA negative, CXR negative, patient afebrile All symptoms of SIRS resolved. Moderate protein calorie malnutrition supplements added. Coronary artery disease continue metoprolol dose increased to 50 b.i.d., continue statin and aspirin COPD no acute exacerbation, continue home inhalers and 3 L of home oxygen. Hx of CVA on aspirin and statin at baseline with right hemiparesis ambulates with the help of cane Seizure disorder Continue keppra GERD Continue PPI Mood disorder Continue mirtazapine, sertraline Full Code DVT Prophylaxis: On Lovenox Pt. will require continued inpatient hospitalization for management post operative care ,right hip surgery. Quality Stroke Does the patient have a stroke diagnosis?: No VTE Prior VTE?: No VTE Risk Level:: Medical - moderate - high VTE Device Contraindication: N/A - Device Ordered VTE Drug Contraindication: Treatment Not Indicated
[2023-09-27] MEDS: oxyCODONE HCl Immed Release 5 MG TABLET PO (12:20)
[2023-09-27] MEDS: Mirtazapine 30 MG TABLET PO (20:07)
[2023-09-27] MEDS: Atorvastatin Calcium 40 MG TABLET PO (20:07)
--- NOTE | 2023-09-27 20:18 | PM.PNORT ---
Subjective Subjective Date of Service: 09/27/23 Interval history: POD 2 s/p rt hip CRPP Patient is resting in bed comfortably No overnight events Pain is managed No additional complaints Physical Exam Vital Signs: Vital Signs: Last Vital Signs Temp 97.7 F 09/27/23 20:00 Pulse 82 09/27/23 20:00 Resp 18 09/27/23 20:00 BP 155/67 H 09/27/23 20:00 Pulse Ox 97 09/27/23 20:00 O2 Del Method Nasal Cannula 09/27/23 20:00 O2 Flow Rate 4 09/27/23 20:00 Oxygen Flow Rate 3 09/25/23 14:49 BMI result Body Mass Index 15.7 Const: General: cooperative, healthy appearing and no acute distress Resp: Effort & Inspection: normal respiratory effort and able to speak in complete sentences Cardio: Rate: regular rate Peripheral pulses: Peripheral pulses 2+ throughout GI: Palpation (GI): Soft to palpation Skin: Lesions: no lesions Rashes: no rashes Extrem: Other: right hip dressing is c/d/i. Able to dorsi/plantar flex. Calf is supple and nontender. Sensation intact. Pedal pulse intact. Procedures Date of Service Date of Service: 09/27/23 Progress Note: A&P Assessment and plan (1) Closed subcapital fracture of femur: Status: Acute Assessment and Plan: Continue pain mgmnt Lovenox for dvt ppx begin PT/OT for rt hip CRPP- WBAT Dispo planning-Pending med clearance (2) Hemiparesis affecting right side as late effect of cerebrovascular accident: Status: Acute Time Spent With Patient Time: Total time managing care of this patient today ____ minutes. Quality Stroke Does the patient have a stroke diagnosis?: No VTE Prior VTE?: No VTE Risk Level:: Medical - moderate - high VTE Device Contraindication: N/A - Device Ordered VTE Drug Contraindication: Treatment Not Indicated
[2023-09-28] VITALS (12 sets, daily range): BP systolic 113–153; BP diastolic 47–74; PULSE 76–100; RESP 12–20; TEMP 36–36.9; O2SAT 94–100
[2023-09-28] MEDS: 0.9 % Sodium Chloride Flush 3 ML SYRINGE IVFLUSH ×4 (00:44→20:01)
[2023-09-28] MEDS: HYDROmorphone HCl 0.5 MG/0.5 ML SYRINGE IVPUSH ×5 (00:50→20:58)
[2023-09-28] MEDS: oxyCODONE HCl Immed Release 5 MG TABLET PO ×4 (03:30→19:55)
[2023-09-28] MEDS: Omeprazole 20 MG CAPSULE.DR PO (06:07)
[2023-09-28 06:58] LABS: Hematocrit 27.8 % (37.0-47.0); Hemoglobin 8.4 g/dl (12.0-16.0); Mean Corpuscular HGB Conc 30.2 g/dl (31.0-35.0); Mean Corpuscular Hemoglobin 25.7 pg (27.0-33.0); Mean Platelet Volume 10.6 fL (9.4-12.3); Platelet Count 283 X10*3/uL (160-400); Red Blood Count 3.27 X10*6/uL (4.20-5.50); Red Cell Distribution Width 13.2 % (11.0-16.0); White Blood Count 9.9 X10*3/uL (4.8-10.8)
--- NOTE | 2023-09-28 07:46 | P.CDIM_ITS ---
PROVIDER RESPONSE TEXT: To clarify, the appropriate diagnosis supported by the clinical indicators: Other (explain): moderate protein calorie malnutrition QUERY TEXT: >>> Provider Instructions - Do not remove this line >>> PHYSICIAN'S DOCUMENTATION REQUEST Date of Query: 09/26/2023 10:16 AM EST Patient Name: Oxana Bragg Admit Date: 09/24/2023 Dear Cale Resendiz, A review of the medical record indicates additional documentation may be needed. Please review below and update the documentation accordingly. Clinical Indicators: Height: ( ) 5'2 Weight: ( ) 37.8 kg BMI: ( ) 15.2 Other Clinical Notes Supporting Significance of the BMI: No nutrition assessment If possible, please provide an associated diagnosis related to the abnormal BMI, such as: <<< Provider Instructions - Do not remove this line <<< Underweight Weight loss Cachexia Anorexia Severe Protein Calorie Malnutrition Other (explain) Clinically unable to determine (explain) >>> Contact Info - Do not remove this line>>> Thank you, Skylar Rodriguez RN Use of terms such as suspected, likely, concern for, or probable (associated with a specific diagnosi s that is being evaluated, monitored, or treated as if it exists) are acceptable and can be coded in the inpatient se tting, when documented at the time of discharge. Please use your independent medical judgment in providing your response. THIS QUERY IS PART OF THE PERMANENT MEDICAL RECORD <<< Contact Info - Do not remove this line <<< >>> Disclaimer - Do no remove this line>>> Extension: [phone] <<< Disclaimer - Do not remove this line<<<
--- NOTE | 2023-09-28 07:49 | P.CDIM_ITS ---
PROVIDER RESPONSE TEXT: To clarify, the appropriate diagnosis supported by the clinical indicators: Clinically unable to determine (explain): ch anemia no other acute issues QUERY TEXT: PHYSICIAN'S DOCUMENTATION REQUEST Date of Query: 09/27/2023 09:15 AM EST Patient Name: Oxana Bragg Admit Date: 09/24/2023 Dear Cale Resendiz, A review of the medical record indicates additional documentation may be needed. Please review below and update the documentation accordingly. Clinical Indicators: H&H on 09/24/23: 10.0/32.7 H&H on 09/27/23: 7.8/26.1 Per Hospitalist Progress Note 09/26/23: Hematocrit dropped but above transfusion threshold follow CBC and BMP Based on the above, could you clarify which of the following is the most likely type of anemia you ar e evaluating, treating, and/or monitoring? Acute blood loss anemia Acute blood loss anemia with baseline chronic anemia (specify type) Anemia of chronic disease indicate if neoplastic disease, CKD, or other Chronic iron deficiency anemia due to blood loss Vitamin B12 deficiency anemia indicate etiology, such as intrinsic factor deficiency, malabsorption, transcobalamin II deficiency, dietary, etc Folate deficiency anemia indicate etiology, such as dietary, drug-induced, etc Protein deficiency anemia Other (explain) Clinically unable to determine (explain) Thank you, Skylar Rodriguez RN Use of terms such as suspected, likely, concern for, or probable (associated with a specific diagnosi s that is being evaluated, monitored, or treated as if it exists) are acceptable and can be coded in the inpatient se tting, when documented at the time of discharge. Please use your independent medical judgment in providing your response. THIS QUERY IS PART OF THE PERMANENT MEDICAL RECORD
--- NOTE | 2023-09-28 08:30 | PM.PNORT ---
Subjective Subjective Date of Service: 09/28/23 Interval history: POD3 s/p right hip CRPP Patient is resting in bed comfortably Reports lightheadedness and fatigue Pain is managed No additional complaints Physical Exam Vital Signs: Vital Signs: Last Vital Signs Temp 97.3 F 09/28/23 08:00 Pulse 82 09/28/23 08:00 Resp 16 09/28/23 08:00 BP 120/53 L 09/28/23 08:00 Pulse Ox 100 09/28/23 08:00 O2 Del Method Nasal Cannula 09/28/23 08:00 O2 Flow Rate 4 09/28/23 08:00 Oxygen Flow Rate 3 09/25/23 14:49 BMI result Body Mass Index 15.7 Const: General: cooperative, healthy appearing and no acute distress Resp: Effort & Inspection: normal respiratory effort and able to speak in complete sentences Cardio: Rate: regular rate Peripheral pulses: Peripheral pulses 2+ throughout GI: Palpation (GI): Soft to palpation Skin: Lesions: no lesions Rashes: no rashes Extrem: Other: right hip dressing is c/d/i. Able to dorsi/plantar flex. Calf is supple and nontender. Sensation intact. Pedal pulse intact. Procedures Date of Service Date of Service: 09/28/23 Progress Note: A&P Assessment and plan (1) Closed subcapital fracture of femur: Status: Acute Assessment and Plan: Continue pain mgmnt Continue Lovenox for dvt ppx Continue PT/OT for rt hip CRPP- WBAT Continue to monitor H&H: 8.4/27.8 lightheadedness and fatigue - reported to medicine Dispo planning-Pending med clearance, rehab placement (2) Hemiparesis affecting right side as late effect of cerebrovascular accident: Status: Acute Time Spent With Patient Time: Total time managing care of this patient today ____ minutes. Quality Stroke Does the patient have a stroke diagnosis?: No VTE Prior VTE?: No VTE Risk Level:: Medical - moderate - high VTE Device Contraindication: N/A - Device Ordered VTE Drug Contraindication: Treatment Not Indicated
[2023-09-28] MEDS: Aspirin Enteric Coated 81 MG TABLET.DR PO (08:40)
[2023-09-28] MEDS: amLODIPine Besylate 5 MG TABLET PO (08:40)
[2023-09-28] MEDS: Metoprolol Tartrate 50 MG TABLET PO ×2 (08:40→19:55)
[2023-09-28] MEDS: Ascorbic Acid 250 MG TABLET PO ×2 (08:41→19:56)
[2023-09-28] MEDS: Ferrous Sulfate 324 MG TABLET.DR PO ×2 (08:41→16:37)
[2023-09-28] MEDS: Folic Acid 1 MG TABLET PO (08:41)
[2023-09-28] MEDS: levETIRAcetam 500 MG TABLET PO ×2 (08:41→19:56)
[2023-09-28] MEDS: Sertraline HCL 25 MG TABLET PO (08:41)
--- NOTE | 2023-09-28 10:05 | MHC.CLN ---
F/U PT IS MODERATELY MALNOURISHED SEE FULL CLINICAL NUTRITION ASSESSMENT DATED 09/26/23 PO INTAKE 50-100% X 3MEALS DIET RX: REGULAR-APPROPRIATE PT RECEIVING MAGIC CUP TID TO INCREASE KCALS MONITOR PO INTAKE AND ENCOURAGE SUPPLEMENTS
[2023-09-28] MEDS: Enoxaparin Sodium 40 MG/0.4 ML SYRINGE SUBCUT (10:36)
--- NOTE | 2023-09-28 13:32 | MHC.CM.PN ---
Per rounds, Pt is not medically ready for D/C today. This RNCM checked [facility] RE SNF search status, no accepting SNFs at this time, and some SNFs have yet to review. CM to follow.
[2023-09-28] MEDS: Acetaminophen 325 MG TABLET 650 MG PO ×2 (14:01→19:56)
--- NOTE | 2023-09-28 15:13 | HO.PM.IMPN ---
Subjective Subjective Date of Service: 09/28/23 Interval History: Complaining of lightheadedness, and persistent pain right hip, tolerating diet, denies chest pain, no palpitations, no prior history of blood transfusion, low iron saturation. Review of Systems All other system reviewed and negative. Physical Exam Vital Signs: Vital Signs: Last Vital Signs Temp 97.4 F 09/28/23 13:33 Pulse 89 09/28/23 13:33 Resp 14 09/28/23 13:33 BP 122/50 L 09/28/23 13:33 Pulse Ox 96 09/28/23 11:26 O2 Del Method Nasal Cannula 09/28/23 11:26 O2 Flow Rate 4 09/28/23 11:26 Oxygen Flow Rate 3 09/25/23 14:49 BMI result Body Mass Index 15.7 Const: Other: General awake alert x3, in no acute distress. Anicteric sclera Neck supple no JVD. CVS regular rate rhythm, Respiratory lungs occasional wheeze, no respiratory distress. Gastrointestinal abdomen soft, non tender, bowel sounds audible, no guarding , no rigidity. Extremities no edema. Right hip dressing in place Neuro right hand contraction deformity ,rt hemiparesis, speech clear. Skin no rash Psych appropriate affect Objective Data Active Medications Acetaminophen (Acetaminophen 325 Mg Tablet) 650 mg PO Q6H PRN PRN Reason: Pain, Mild (Pain Scale 1-3) Last Admin: 09/28/23 14:01 Dose: 650 mg Documented By: BRADLY Albuterol Sulfate (Albuterol Sulfate 90 Mcg 8 Gm Inhaler) 2 puff INHALE Q6H PRN PRN Reason: bronchospasm Albuterol/Ipratropium (Albuterol/Iprat 2.5/0.5mg 3 Ml Ampul.Neb) 3 ml INHALE TID PRN PRN Reason: shortness of breath Amlodipine Besylate (Amlodipine Besylate 5 Mg Tablet) 5 mg PO DAILY [facility]; Protocol Last Admin: 09/28/23 08:40 Dose: 5 mg Documented By: TREVON Ascorbic Acid (Ascorbic Acid 250 Mg Tablet) 250 mg PO BID [facility] Last Admin: 09/28/23 08:41 Dose: 250 mg Documented By: TREVON Aspirin (Aspirin Enteric Coated 81 Mg Tablet.) 81 mg PO DAILY [facility] Last Admin: 09/28/23 08:40 Dose: 81 mg Documented By: TREVON Atorvastatin Calcium (Atorvastatin Calcium 40 Mg Tablet) 40 mg PO BEDTIME [facility] Last Admin: 09/27/23 20:07 Dose: 40 mg Documented By: DIAZDEM Benzonatate (Benzonatate 100 Mg Capsule) 100 mg PO TID PRN PRN Reason: Cough Last Admin: 09/26/23 21:42 Dose: 100 mg Documented By: LULU Docusate Sodium (Docusate Sodium 100 Mg Capsule) 100 mg PO DAILY PRN PRN Reason: Constipation Last Admin: 09/27/23 10:22 Dose: 100 mg Documented By: MAXWELL Enoxaparin Sodium (Enoxaparin Sodium 40 Mg/0.4 Ml Syringe) 40 mg SUBCUT Q24H [facility] Last Admin: 09/28/23 10:36 Dose: 40 mg Documented By: TREVON Fentanyl (Fentanyl Citrate/Pf 100 Mcg/2 Ml Vial) 25 mcg IVPUSH Q5M PRN; Protocol PRN Reason: Pain, Moderate(Pain Scale 4-6) Ferrous Sulfate (Ferrous Sulfate 324 Mg Tablet.) 324 mg PO BIDWM [facility] Last Admin: 09/28/23 08:41 Dose: 324 mg Documented By: TREVON Folic Acid (Folic Acid 1 Mg Tablet) 1 mg PO DAILY [facility] Last Admin: 09/28/23 08:41 Dose: 1 mg Documented By: TREVON Hydromorphone HCl (Hydromorphone Hcl 0.5 Mg/0.5 Ml Syringe) 0.5 mg IVPUSH Q4H PRN; Protocol PRN Reason: Pain, Severe (Pain Scale 7-10) Last Admin: 09/28/23 10:36 Dose: 0.5 mg Documented By: TREVON Hydromorphone HCl (Hydromorphone Hcl 0.5 Mg/0.5 Ml Syringe) 0.25 mg IVPUSH Q5M PRN; Protocol PRN Reason: Pain, Severe (Pain Scale 7-10) Cefazolin Sodium/Dextrose (Ancef) 2 gm in 50 mls @ 100 mls/hr IV PREOP ONE Stop: 09/25/23 07:29 Levetiracetam (Levetiracetam 500 Mg Tablet) 500 mg PO BID [facility] Last Admin: 09/28/23 08:41 Dose: 500 mg Documented By: TREVON Melatonin (Melatonin 3 Mg Tablet) 6 mg PO BEDTIME PRN PRN Reason: Insomnia Last Admin: 09/26/23 21:42 Dose: 6 mg Documented By: LULU Metoprolol Tartrate (Metoprolol Tartrate 50 Mg Tablet) 50 mg PO BID [facility]; Protocol Last Admin: 09/28/23 08:40 Dose: 50 mg Documented By: TREVON Mirtazapine (Mirtazapine 30 Mg Tablet) 30 mg PO BEDTIME [facility] Last Admin: 09/27/23 20:07 Dose: 30 mg Documented By: NABILA Omeprazole (Omeprazole 20 Mg Capsule.Dr) 20 mg PO DAILY@0630 [facility] Last Admin: 09/28/23 06:07 Dose: 20 mg Documented By: JAZMINE Ondansetron HCl (Ondansetron Hcl 4 Mg/2 Ml Vial) 4 mg IVPUSH Q8H PRN PRN Reason: Nausea and Vomiting Last Admin: 09/27/23 01:21 Dose: 4 mg Documented By: LULU Ondansetron HCl (Ondansetron Hcl 4 Mg/2 Ml Vial) 4 mg IVPUSH ONCE PRN PRN Reason: Nausea and Vomiting Oxycodone HCl (Oxycodone Hcl Immed Release 5 Mg Tablet) 5 mg PO Q4H PRN PRN Reason: Pain, Moderate(Pain Scale 4-6) Last Admin: 09/28/23 14:01 Dose: 5 mg Documented By: BRADLY Sertraline HCl (Sertraline Hcl 25 Mg Tablet) 25 mg PO DAILY [facility] Last Admin: 09/28/23 08:41 Dose: 25 mg Documented By: TREVON Sodium Chloride (0.9 % Sodium Chloride Flush 3 Ml Syringe) 3 ml IVFLUSH QSHIFT [facility] Last Admin: 09/28/23 08:39 Dose: 3 ml Documented By: TREVON Sodium Chloride (Sodium Chloride 0.65 % Nasal 44 Ml Sprbtl) 1 spray NOSTRIL-B Q1H PRN PRN Reason: dryness Last Admin: 09/27/23 01:21 Dose: 1 spray Documented By: LULU Labs 09/28/23 06:45 09/27/23 06:27 Labs: Laboratory Results - last 24 hr 09/28/23 09/28/23 06:45 11:40 MCV 85.0 MCH 25.7 L MCHC 30.2 L RDW 13.2 Plt Count 283 MPV 10.6 Absolute Nucleated RBC 0.000 Nucleated RBC % (auto) 0.0 Blood Type AB Positive Antibody Screen NEGATIVE Crossmatch See Detail Assessment and Plan (1) Closed subcapital fracture of femur: Status: Acute (2) COPD (chronic obstructive pulmonary disease): Status: Acute Plan 57-year-old female with a PMH significant for?COPD chronically on 3L NC, HTN, carotid artery stenosis s/p CVA 2016 with residual right-sided hemiparesis, seizure disorder s/p CVA, CAD, takotsubo cardiomyopathy, and MDD who presents to the ED for evaluation of right hip and leg pain after fall at home. Pt will be admitted to the hospital for treatment and further evaluation of right hip fracture. Right hip fracture POD 3 s/p rt hip CRPP on scheduled Tylenol ,oxycodone and continue as needed IV Dilaudid Lovenox for DVT prophylaxis/PT recommend short-term rehab Added stool softeners. Acute on chronic normocytic anemia,acute blood loss post surgery /symptomatic : iron studies showed low iron, likely due to poor by mouth intake , stool guaiac not collected Patient complaining of persistent lightheadedness, weakness, will Transfuse 1 unit of packed RBC, continue iron supplements,follow CBC and BMP. Sirs criteria resolved no source of infection found Moderate protein calorie malnutrition supplements added. Coronary artery disease continue metoprolol dose increased to 50 b.i.d., continue statin and aspirin COPD no acute exacerbation, continue home inhalers and 3 L of home oxygen. Hx of CVA on aspirin and statin at baseline with right hemiparesis ambulates with the help of cane Seizure disorder Continue keppra GERD Continue PPI Mood disorder Continue mirtazapine, sertraline Full Code DVT Prophylaxis: On Lovenox Pt. will require continued inpatient hospitalization for management post operative care ,right hip surgery/anemia requiring blood transfusion.. Quality Stroke Does the patient have a stroke diagnosis?: No VTE Prior VTE?: No VTE Risk Level:: Medical - moderate - high VTE Device Contraindication: N/A - Device Ordered VTE Drug Contraindication: Treatment Not Indicated
[2023-09-28] MEDS: Docusate Sodium 100 MG CAPSULE 200 MG PO (15:32)
[2023-09-28] MEDS: polyethylene glycoL 3350 17 GM POWD.PACK PO (15:32)
[2023-09-28] MEDS: Atorvastatin Calcium 40 MG TABLET PO (19:56)
[2023-09-28] MEDS: Mirtazapine 30 MG TABLET PO (19:56)
[2023-09-29] VITALS (8 sets, daily range): BP systolic 102–167; BP diastolic 58–81; PULSE 76–104; RESP 16–22; TEMP 36.1–36.6; O2SAT 92–100
[2023-09-29] MEDS: HYDROmorphone HCl 0.5 MG/0.5 ML SYRINGE IVPUSH ×5 (00:51→23:49)
[2023-09-29] MEDS: oxyCODONE HCl Immed Release 5 MG TABLET PO (03:18)
[2023-09-29] MEDS: Omeprazole 20 MG CAPSULE.DR PO (05:35)
[2023-09-29 07:32] LABS: Hematocrit 33.7 % (37.0-47.0); Hemoglobin 10.6 g/dl (12.0-16.0); Mean Corpuscular HGB Conc 31.5 g/dl (31.0-35.0); Mean Corpuscular Hemoglobin 27.5 pg (27.0-33.0); Mean Corpuscular Volume 87.5 fL (80.0-98.0); Mean Platelet Volume 11.2 fL (9.4-12.3); Platelet Count 285 X10*3/uL (160-400); Red Blood Count 3.85 X10*6/uL (4.20-5.50); Red Cell Distribution Width 13.5 % (11.0-16.0); White Blood Count 13.5 X10*3/uL (4.8-10.8)
[2023-09-29] MEDS: Sertraline HCL 25 MG TABLET PO (09:16)
[2023-09-29] MEDS: Metoprolol Tartrate 50 MG TABLET PO ×2 (09:16→19:46)
[2023-09-29] MEDS: Aspirin Enteric Coated 81 MG TABLET.DR PO (09:16)
[2023-09-29] MEDS: Docusate Sodium 100 MG CAPSULE 200 MG PO (09:16)
[2023-09-29] MEDS: levETIRAcetam 500 MG TABLET PO ×2 (09:16→19:46)
[2023-09-29] MEDS: Ascorbic Acid 250 MG TABLET PO ×2 (09:16→19:46)
[2023-09-29] MEDS: Ferrous Sulfate 324 MG TABLET.DR PO ×2 (09:16→15:25)
[2023-09-29] MEDS: amLODIPine Besylate 5 MG TABLET PO (09:17)
[2023-09-29] MEDS: 0.9 % Sodium Chloride Flush 3 ML SYRINGE IVFLUSH ×3 (09:17→19:47)
[2023-09-29] MEDS: Folic Acid 1 MG TABLET PO (09:20)
--- NOTE | 2023-09-29 12:35 | HO.PM.IMPN ---
Subjective Subjective Date of Service: 09/29/23 Interval History: Complaining of discomfort due to Goyal catheter complaining of right hip pain, denies lightheadedness or dizziness complaining of dry nose, tolerating diet no nausea, no vomiting. no abdominal pain, no chest pain, no shortness of breath. Review of Systems All other system reviewed and negative Physical Exam Vital Signs: Vital Signs: Last Vital Signs Temp 97.9 F 09/29/23 11:16 Pulse 76 09/29/23 11:16 Resp 17 09/29/23 11:16 BP 132/60 09/29/23 11:16 Pulse Ox 92 09/29/23 11:16 O2 Del Method Nasal Cannula, Hu midified O2 09/29/23 11:16 O2 Flow Rate 3 09/29/23 11:16 Oxygen Flow Rate 3 09/25/23 14:49 BMI result Body Mass Index 15.7 Const: Other: General awake alert x3, in no acute distress. Anicteric sclera Neck supple no JVD. CVS regular rate rhythm, Respiratory lungs occasional wheeze, no respiratory distress. Gastrointestinal abdomen soft, non tender, bowel sounds audible, no guarding , no rigidity. Extremities no edema. Right hip dressing in place Neuro right hand contraction deformity ,rt hemiparesis, speech clear. Skin no rash Psych appropriate affect Objective Data Active Medications Acetaminophen (Acetaminophen 325 Mg Tablet) 650 mg PO Q6H PRN PRN Reason: Pain, Mild (Pain Scale 1-3) Last Admin: 09/28/23 19:56 Dose: 650 mg Documented By: SARAHI Albuterol Sulfate (Albuterol Sulfate 90 Mcg 8 Gm Inhaler) 2 puff INHALE Q6H PRN PRN Reason: bronchospasm Albuterol/Ipratropium (Albuterol/Iprat 2.5/0.5mg 3 Ml Ampul.Neb) 3 ml INHALE TID PRN PRN Reason: shortness of breath Amlodipine Besylate (Amlodipine Besylate 5 Mg Tablet) 5 mg PO DAILY [facility]; Protocol Last Admin: 09/29/23 09:17 Dose: 5 mg Documented By: RANCHO Ascorbic Acid (Ascorbic Acid 250 Mg Tablet) 250 mg PO BID [facility] Last Admin: 09/29/23 09:16 Dose: 250 mg Documented By: RANCHO Aspirin (Aspirin Enteric Coated 81 Mg Tablet.) 81 mg PO DAILY [facility] Last Admin: 09/29/23 09:16 Dose: 81 mg Documented By: RANCHO Atorvastatin Calcium (Atorvastatin Calcium 40 Mg Tablet) 40 mg PO BEDTIME [facility] Last Admin: 09/28/23 19:56 Dose: 40 mg Documented By: SARAHI Benzonatate (Benzonatate 100 Mg Capsule) 100 mg PO TID PRN PRN Reason: Cough Last Admin: 09/26/23 21:42 Dose: 100 mg Documented By: LULU Docusate Sodium (Docusate Sodium 100 Mg Capsule) 100 mg PO DAILY PRN PRN Reason: Constipation Last Admin: 09/27/23 10:22 Dose: 100 mg Documented By: MAXWELL Docusate Sodium (Docusate Sodium 100 Mg Capsule) 200 mg PO DAILY [facility] Last Admin: 09/29/23 09:16 Dose: 200 mg Documented By: RANCHO Enoxaparin Sodium (Enoxaparin Sodium 40 Mg/0.4 Ml Syringe) 40 mg SUBCUT Q24H [facility] Last Admin: 09/28/23 10:36 Dose: 40 mg Documented By: TREVON Fentanyl (Fentanyl Citrate/Pf 100 Mcg/2 Ml Vial) 25 mcg IVPUSH Q5M PRN; Protocol PRN Reason: Pain, Moderate(Pain Scale 4-6) Ferrous Sulfate (Ferrous Sulfate 324 Mg Tablet.) 324 mg PO BIDWM [facility] Last Admin: 09/29/23 09:16 Dose: 324 mg Documented By: RANCHO Folic Acid (Folic Acid 1 Mg Tablet) 1 mg PO DAILY [facility] Last Admin: 09/29/23 09:20 Dose: 1 mg Documented By: RANCHO Hydromorphone HCl (Hydromorphone Hcl 0.5 Mg/0.5 Ml Syringe) 0.5 mg IVPUSH Q4H PRN; Protocol PRN Reason: Pain, Severe (Pain Scale 7-10) Last Admin: 09/29/23 09:15 Dose: 0.5 mg Documented By: RANCHO Hydromorphone HCl (Hydromorphone Hcl 0.5 Mg/0.5 Ml Syringe) 0.25 mg IVPUSH Q5M PRN; Protocol PRN Reason: Pain, Severe (Pain Scale 7-10) Levetiracetam (Levetiracetam 500 Mg Tablet) 500 mg PO BID [facility] Last Admin: 09/29/23 09:16 Dose: 500 mg Documented By: RANCHO Melatonin (Melatonin 3 Mg Tablet) 6 mg PO BEDTIME PRN PRN Reason: Insomnia Last Admin: 09/26/23 21:42 Dose: 6 mg Documented By: LULU Metoprolol Tartrate (Metoprolol Tartrate 50 Mg Tablet) 50 mg PO BID [facility]; Protocol Last Admin: 09/29/23 09:16 Dose: 50 mg Documented By: RANCHO Mirtazapine (Mirtazapine 30 Mg Tablet) 30 mg PO BEDTIME [facility] Last Admin: 09/28/23 19:56 Dose: 30 mg Documented By: SARAHI Omeprazole (Omeprazole 20 Mg Capsule.Dr) 20 mg PO DAILY@0630 [facility] Last Admin: 09/29/23 05:35 Dose: 20 mg Documented By: JORGE Ondansetron HCl (Ondansetron Hcl 4 Mg/2 Ml Vial) 4 mg IVPUSH Q8H PRN PRN Reason: Nausea and Vomiting Last Admin: 09/27/23 01:21 Dose: 4 mg Documented By: LULU Ondansetron HCl (Ondansetron Hcl 4 Mg/2 Ml Vial) 4 mg IVPUSH ONCE PRN PRN Reason: Nausea and Vomiting Oxycodone HCl (Oxycodone Hcl Immed Release 5 Mg Tablet) 5 mg PO Q4H PRN PRN Reason: Pain, Moderate(Pain Scale 4-6) Last Admin: 09/29/23 03:18 Dose: 5 mg Documented By: JORGE Polyethylene Glycol (Polyethylene Glycol 3350 17 Gm Powd.Pack) 17 gm PO DAILY [facility] Last Admin: 09/29/23 11:08 Dose: Not Given Documented By: RANCHO Non-Admin Reason: Patient Refused Sertraline HCl (Sertraline Hcl 25 Mg Tablet) 25 mg PO DAILY [facility] Last Admin: 09/29/23 09:16 Dose: 25 mg Documented By: RANCHO Sodium Chloride (0.9 % Sodium Chloride Flush 3 Ml Syringe) 3 ml IVFLUSH [facility] Last Admin: 09/29/23 09:17 Dose: 3 ml Documented By: RANCHO Sodium Chloride (Sodium Chloride 0.65 % Nasal 44 Ml Sprbtl) 1 spray NOSTRIL-B Q1H PRN PRN Reason: dryness Last Admin: 09/27/23 01:21 Dose: 1 spray Documented By: LULU Labs 09/29/23 06:56 09/27/23 06:27 Labs: Laboratory Results - last 24 hr 09/28/23 09/29/23 11:40 06:56 MCV 87.5 MCH 27.5 MCHC 31.5 RDW 13.5 Plt Count 285 MPV 11.2 Absolute Nucleated RBC 0.000 Nucleated RBC % (auto) 0.0 Blood Type AB Positive Antibody Screen NEGATIVE Crossmatch See Detail Microbiology Microbiology Results: Microbiology 09/24/23 06:17 Blood Culture - Final Blood - Venous No growth after 5 days. 09/24/23 06:17 Blood Culture - Final Blood - Venous No growth after 5 days. Assessment and Plan (1) Elevated troponin: Status: Acute Plan 57-year-old female with a PMH significant for?COPD chronically on 3L NC, HTN, carotid artery stenosis s/p CVA 2016 with residual right-sided hemiparesis, seizure disorder s/p CVA, CAD, takotsubo cardiomyopathy, and MDD who presents to the ED for evaluation of right hip and leg pain after fall at home. Pt will be admitted to the hospital for treatment and further evaluation of right hip fracture. Right hip fracture POD 4 s/p rt hip CRPP Complaining of pain on scheduled Tylenol ,oxycodone and as needed IV Dilaudid Recommend ice Lovenox for DVT prophylaxis/PT recommend short-term rehab stool softeners. DC Goyal catheter, DC alarm security or surveillance monitor Acute on chronic normocytic anemia,acute blood loss post surgery /symptomatic : iron studies showed low iron, likely due to poor by mouth intake , acute blood loss, stool guaiac not collected s/p 1 unit of packed RBC, hematocrit improved, continue iron supplements,follow CBC and BMP. Sirs criteria resolved no source of infection found Moderate protein calorie malnutrition supplements added. Coronary artery disease continue metoprolol dose increased to 50 b.i.d., continue statin and aspirin COPD no acute exacerbation, continue home inhalers and 3 L of home oxygen. Hx of CVA on aspirin and statin at baseline with right hemiparesis ambulates with the help of cane Seizure disorder Continue keppra GERD Continue PPI Mood disorder Continue mirtazapine, sertraline Full Code DVT Prophylaxis: On Lovenox Pt. will require continued inpatient hospitalization for management post operative care ,right hip surgery/anemia requiring blood transfusion.. Quality Stroke Does the patient have a stroke diagnosis?: No VTE Prior VTE?: No VTE Risk Level:: Medical - moderate - high VTE Device Contraindication: N/A - Device Ordered VTE Drug Contraindication: Treatment Not Indicated
[2023-09-29] MEDS: Enoxaparin Sodium 40 MG/0.4 ML SYRINGE SUBCUT (12:57)
[2023-09-29] MEDS: Mirtazapine 30 MG TABLET PO (19:46)
[2023-09-29] MEDS: Atorvastatin Calcium 40 MG TABLET PO (19:46)
[2023-09-30] VITALS (7 sets, daily range): BP systolic 106–163; BP diastolic 54–71; PULSE 79–100; RESP 16–20; TEMP 36.1–36.2; O2SAT 93–97
[2023-09-30] MEDS: HYDROmorphone HCl 0.5 MG/0.5 ML SYRINGE IVPUSH ×5 (03:50→23:56)
[2023-09-30] MEDS: Omeprazole 20 MG CAPSULE.DR PO (05:19)
[2023-09-30] MEDS: Metoprolol Tartrate 50 MG TABLET PO ×2 (09:14→19:49)
[2023-09-30] MEDS: amLODIPine Besylate 5 MG TABLET PO (09:14)
[2023-09-30] MEDS: levETIRAcetam 500 MG TABLET PO ×2 (09:14→19:49)
[2023-09-30] MEDS: polyethylene glycoL 3350 17 GM POWD.PACK PO (09:14)
[2023-09-30] MEDS: Folic Acid 1 MG TABLET PO (09:14)
[2023-09-30] MEDS: Ascorbic Acid 250 MG TABLET PO ×2 (09:14→19:50)
[2023-09-30] MEDS: Ferrous Sulfate 324 MG TABLET.DR PO ×2 (09:14→18:54)
[2023-09-30] MEDS: Aspirin Enteric Coated 81 MG TABLET.DR PO (09:14)
[2023-09-30] MEDS: Sertraline HCL 25 MG TABLET PO (09:14)
[2023-09-30] MEDS: 0.9 % Sodium Chloride Flush 3 ML SYRINGE IVFLUSH ×3 (09:15→19:50)
[2023-09-30] MEDS: Docusate Sodium 100 MG CAPSULE 200 MG PO (09:15)
--- NOTE | 2023-09-30 10:51 | MHC.CM.PN ---
PER MD ROUNDS, PT MEDICALLY STABLE TO DC STR REFERRALS WERE MADE HOWEVER THERE WERE NO BED OFFERS. REFERRAL HAS BEEN UPDATED AND EXPANDED
--- NOTE | 2023-09-30 11:42 | MHC.CLN ---
F/U PO INTAKE VARIABLE DIET RX: REGULAR-APPROPRIATE PT RECEIVING MAGIC CUP TID TO INCREASE KCALS MONITOR PO INTAKE AND ENCOURAGE SUPPLEMENTS
--- NOTE | 2023-09-30 14:57 | HO.PM.IMPN ---
Subjective Subjective Date of Service: 09/30/23 Interval History: Feeling better this morning no lightheadedness, no dizziness, no nausea tolerating diet no abdominal pain, had bowel movement this morning complaining of persistent hip pain. Review of Systems All other system reviewed and negative. Physical Exam Vital Signs: Vital Signs: Last Vital Signs Temp 96.9 F 09/30/23 07:21 Pulse 100 09/30/23 08:57 Resp 16 09/30/23 07:21 BP 140/67 H 09/30/23 08:57 Pulse Ox 97 09/30/23 08:57 O2 Del Method Nasal Cannula 09/30/23 07:21 O2 Flow Rate 2 09/30/23 07:21 Oxygen Flow Rate 3 09/25/23 14:49 BMI result Body Mass Index 15.7 Const: Other: General awake alert x3, in no acute distress. Anicteric sclera Neck supple no JVD. CVS regular rate rhythm, Respiratory lungs occasional wheeze, no respiratory distress. Gastrointestinal abdomen soft, non tender, bowel sounds audible, no guarding , no rigidity. Extremities no edema. Right hip dressing in place Neuro right hand contraction deformity ,rt hemiparesis, speech clear. Skin no rash Psych appropriate affect Objective Data Active Medications Acetaminophen (Acetaminophen 325 Mg Tablet) 650 mg PO Q6H PRN PRN Reason: Pain, Mild (Pain Scale 1-3) Last Admin: 09/28/23 19:56 Dose: 650 mg Documented By: SARAHI Albuterol Sulfate (Albuterol Sulfate 90 Mcg 8 Gm Inhaler) 2 puff INHALE Q6H PRN PRN Reason: bronchospasm Albuterol/Ipratropium (Albuterol/Iprat 2.5/0.5mg 3 Ml Ampul.Neb) 3 ml INHALE TID PRN PRN Reason: shortness of breath Amlodipine Besylate (Amlodipine Besylate 5 Mg Tablet) 5 mg PO DAILY [facility]; Protocol Last Admin: 09/30/23 09:14 Dose: 5 mg Documented By: RANCHO Ascorbic Acid (Ascorbic Acid 250 Mg Tablet) 250 mg PO BID [facility] Last Admin: 09/30/23 09:14 Dose: 250 mg Documented By: RANCHO Aspirin (Aspirin Enteric Coated 81 Mg Tablet.) 81 mg PO DAILY [facility] Last Admin: 09/30/23 09:14 Dose: 81 mg Documented By: RANCHO Atorvastatin Calcium (Atorvastatin Calcium 40 Mg Tablet) 40 mg PO BEDTIME [facility] Last Admin: 09/29/23 19:46 Dose: 40 mg Documented By: HOANG Benzonatate (Benzonatate 100 Mg Capsule) 100 mg PO TID PRN PRN Reason: Cough Last Admin: 09/26/23 21:42 Dose: 100 mg Documented By: LULU Docusate Sodium (Docusate Sodium 100 Mg Capsule) 100 mg PO DAILY PRN PRN Reason: Constipation Last Admin: 09/27/23 10:22 Dose: 100 mg Documented By: MAXWELL Docusate Sodium (Docusate Sodium 100 Mg Capsule) 200 mg PO DAILY [facility] Last Admin: 09/30/23 09:15 Dose: 200 mg Documented By: RANCHO Enoxaparin Sodium (Enoxaparin Sodium 40 Mg/0.4 Ml Syringe) 40 mg SUBCUT Q24H [facility] Last Admin: 09/29/23 12:57 Dose: 40 mg Documented By: RANCHO Ferrous Sulfate (Ferrous Sulfate 324 Mg Tablet.) 324 mg PO BIDWM [facility] Last Admin: 09/30/23 09:14 Dose: 324 mg Documented By: RANCHO Folic Acid (Folic Acid 1 Mg Tablet) 1 mg PO DAILY [facility] Last Admin: 09/30/23 09:14 Dose: 1 mg Documented By: RANCHO Hydromorphone HCl (Hydromorphone Hcl 0.5 Mg/0.5 Ml Syringe) 0.5 mg IVPUSH Q4H PRN; Protocol PRN Reason: Pain, Severe (Pain Scale 7-10) Last Admin: 09/30/23 03:50 Dose: 0.5 mg Documented By: HOANG Levetiracetam (Levetiracetam 500 Mg Tablet) 500 mg PO BID [facility] Last Admin: 09/30/23 09:14 Dose: 500 mg Documented By: RANCHO Melatonin (Melatonin 3 Mg Tablet) 6 mg PO BEDTIME PRN PRN Reason: Insomnia Last Admin: 09/26/23 21:42 Dose: 6 mg Documented By: LULU Metoprolol Tartrate (Metoprolol Tartrate 50 Mg Tablet) 50 mg PO BID [facility]; Protocol Last Admin: 09/30/23 09:14 Dose: 50 mg Documented By: RANCHO Mirtazapine (Mirtazapine 30 Mg Tablet) 30 mg PO BEDTIME [facility] Last Admin: 09/29/23 19:46 Dose: 30 mg Documented By: HOANG Omeprazole (Omeprazole 20 Mg Capsule.Dr) 20 mg PO DAILY@0630 [facility] Last Admin: 09/30/23 05:19 Dose: 20 mg Documented By: HOANG Ondansetron HCl (Ondansetron Hcl 4 Mg/2 Ml Vial) 4 mg IVPUSH Q8H PRN PRN Reason: Nausea and Vomiting Last Admin: 09/27/23 01:21 Dose: 4 mg Documented By: LULU Oxycodone HCl (Oxycodone Hcl Immed Release 5 Mg Tablet) 5 mg PO Q4H PRN PRN Reason: Pain, Moderate(Pain Scale 4-6) Last Admin: 09/29/23 03:18 Dose: 5 mg Documented By: JORGE Polyethylene Glycol (Polyethylene Glycol 3350 17 Gm Powd.Pack) 17 gm PO DAILY [facility] Last Admin: 09/30/23 09:14 Dose: 17 gm Documented By: RANCHO Sertraline HCl (Sertraline Hcl 25 Mg Tablet) 25 mg PO DAILY [facility] Last Admin: 09/30/23 09:14 Dose: 25 mg Documented By: RANCHO Sodium Chloride (0.9 % Sodium Chloride Flush 3 Ml Syringe) 3 ml IVFLUSH QSHIFT [facility] Last Admin: 09/30/23 09:15 Dose: 3 ml Documented By: RANCHO Sodium Chloride (Sodium Chloride 0.65 % Nasal 44 Ml Sprbtl) 1 spray NOSTRIL-B Q1H PRN PRN Reason: dryness Last Admin: 09/27/23 01:21 Dose: 1 spray Documented By: LULU Labs 09/29/23 06:56 09/27/23 06:27 Assessment and Plan (1) Elevated troponin: Status: Acute Plan 57-year-old female with a PMH significant for?COPD chronically on 3L NC, HTN, carotid artery stenosis s/p CVA 2016 with residual right-sided hemiparesis, seizure disorder s/p CVA, CAD, takotsubo cardiomyopathy, and MDD who presents to the ED for evaluation of right hip and leg pain after fall at home. Pt will be admitted to the hospital for treatment and further evaluation of right hip fracture. Right hip fracture POD 5 s/p rt hip CRPP Good pain control, on scheduled Tylenol ,oxycodone and as needed IV Dilaudid Lovenox for DVT prophylaxis/PT recommend short-term rehab stool softeners. Acute on chronic normocytic anemia,acute blood loss post surgery /symptomatic : iron studies showed low iron, likely due to poor by mouth intake , acute blood loss, stool guaiac not collected s/p 1 unit of packed RBC, hematocrit improved, continue iron supplements,follow CBC and BMP. Sirs criteria resolved no source of infection found Moderate protein calorie malnutrition supplements added. Coronary artery disease continue metoprolol dose increased to 50 b.i.d., continue statin and aspirin COPD no acute exacerbation, continue home inhalers and 3 L of home oxygen. Hx of CVA on aspirin and statin at baseline with right hemiparesis, ambulates with the help of cane Seizure disorder Continue keppra GERD Continue PPI Mood disorder Continue mirtazapine, sertraline Full Code DVT Prophylaxis: On Lovenox Pt. will require continued inpatient hospitalization for management post operative care ,right hip surgery/anemia and safe disposition Quality Stroke Does the patient have a stroke diagnosis?: No VTE Prior VTE?: No VTE Risk Level:: Medical - moderate - high VTE Device Contraindication: N/A - Device Ordered VTE Drug Contraindication: Treatment Not Indicated
[2023-09-30] MEDS: Enoxaparin Sodium 40 MG/0.4 ML SYRINGE SUBCUT (15:09)
[2023-09-30] MEDS: Mirtazapine 30 MG TABLET PO (19:49)
[2023-09-30] MEDS: Atorvastatin Calcium 40 MG TABLET PO (19:49)
[2023-10-01] VITALS (7 sets, daily range): BP systolic 109–177; BP diastolic 52–72; PULSE 64–92; RESP 16–20; TEMP 36.1–36.8; O2SAT 95–100
[2023-10-01] MEDS: HYDROmorphone HCl 0.5 MG/0.5 ML SYRINGE IVPUSH ×4 (04:01→20:03)
[2023-10-01] MEDS: Omeprazole 20 MG CAPSULE.DR PO (04:04)
[2023-10-01] MEDS: Docusate Sodium 100 MG CAPSULE 200 MG PO (08:56)
[2023-10-01] MEDS: Sertraline HCL 25 MG TABLET PO (08:56)
[2023-10-01] MEDS: levETIRAcetam 500 MG TABLET PO ×2 (08:56→21:19)
[2023-10-01] MEDS: Ferrous Sulfate 324 MG TABLET.DR PO ×2 (08:56→16:11)
[2023-10-01] MEDS: amLODIPine Besylate 5 MG TABLET PO (08:56)
[2023-10-01] MEDS: Aspirin Enteric Coated 81 MG TABLET.DR PO (08:56)
[2023-10-01] MEDS: Folic Acid 1 MG TABLET PO (08:57)
[2023-10-01] MEDS: Metoprolol Tartrate 50 MG TABLET PO ×2 (08:57→21:19)
[2023-10-01] MEDS: Ascorbic Acid 250 MG TABLET PO ×2 (08:57→21:19)
[2023-10-01] MEDS: 0.9 % Sodium Chloride Flush 3 ML SYRINGE IVFLUSH ×3 (08:57→21:22)
[2023-10-01] MEDS: polyethylene glycoL 3350 17 GM POWD.PACK PO (08:58)
[2023-10-01] MEDS: Enoxaparin Sodium 40 MG/0.4 ML SYRINGE SUBCUT (10:04)
[2023-10-01] MEDS: oxyCODONE HCl Immed Release 5 MG TABLET PO ×2 (10:04→16:11)
--- NOTE | 2023-10-01 10:46 | HO.PM.IMPN ---
Subjective Subjective Date of Service: 10/01/23 Interval History: Feeling better this morning no lightheadedness, no dizziness, no nausea tolerating diet no abdominal pain, had bowel movement this morning complaining of persistent hip pain. Review of Systems All other system reviewed and negative. Physical Exam Vital Signs: Vital Signs: Last Vital Signs Temp 96.9 F 10/01/23 08:00 Pulse 88 10/01/23 08:00 Resp 20 10/01/23 08:00 BP 135/69 10/01/23 08:00 Pulse Ox 95 10/01/23 08:00 O2 Del Method Nasal Cannula 10/01/23 08:00 O2 Flow Rate 2 10/01/23 08:00 Oxygen Flow Rate 3 09/25/23 14:49 BMI result Body Mass Index 15.7 Appearing in no acute distress lung sounds are clear to auscultation heart regular rate rhythm, clear S1, S2 positive bowel sounds, abdomen is soft, nontender neuro patient is alert x3, no focal deficits Objective Data Active Medications Acetaminophen (Acetaminophen 325 Mg Tablet) 650 mg PO Q6H PRN PRN Reason: Pain, Mild (Pain Scale 1-3) Last Admin: 09/28/23 19:56 Dose: 650 mg Documented By: SARAHI Albuterol Sulfate (Albuterol Sulfate 90 Mcg 8 Gm Inhaler) 2 puff INHALE Q6H PRN PRN Reason: bronchospasm Albuterol/Ipratropium (Albuterol/Iprat 2.5/0.5mg 3 Ml Ampul.Neb) 3 ml INHALE TID PRN PRN Reason: shortness of breath Amlodipine Besylate (Amlodipine Besylate 5 Mg Tablet) 5 mg PO DAILY [facility]; Protocol Last Admin: 10/01/23 08:56 Dose: 5 mg Documented By: MARY Ascorbic Acid (Ascorbic Acid 250 Mg Tablet) 250 mg PO BID [facility] Last Admin: 10/01/23 08:57 Dose: 250 mg Documented By: MARY Aspirin (Aspirin Enteric Coated 81 Mg Tablet.) 81 mg PO DAILY [facility] Last Admin: 10/01/23 08:56 Dose: 81 mg Documented By: MARY Atorvastatin Calcium (Atorvastatin Calcium 40 Mg Tablet) 40 mg PO BEDTIME [facility] Last Admin: 09/30/23 19:49 Dose: 40 mg Documented By: HO.KUDRYAD Benzonatate (Benzonatate 100 Mg Capsule) 100 mg PO TID PRN PRN Reason: Cough Last Admin: 09/26/23 21:42 Dose: 100 mg Documented By: LULU Docusate Sodium (Docusate Sodium 100 Mg Capsule) 100 mg PO DAILY PRN PRN Reason: Constipation Last Admin: 09/27/23 10:22 Dose: 100 mg Documented By: MAXWELL Docusate Sodium (Docusate Sodium 100 Mg Capsule) 200 mg PO DAILY [facility] Last Admin: 10/01/23 08:56 Dose: 200 mg Documented By: MARY Enoxaparin Sodium (Enoxaparin Sodium 40 Mg/0.4 Ml Syringe) 40 mg SUBCUT Q24H [facility] Last Admin: 10/01/23 10:04 Dose: 40 mg Documented By: MARY Ferrous Sulfate (Ferrous Sulfate 324 Mg Tablet.) 324 mg PO BIDWM [facility] Last Admin: 10/01/23 08:56 Dose: 324 mg Documented By: MARY Folic Acid (Folic Acid 1 Mg Tablet) 1 mg PO DAILY [facility] Last Admin: 10/01/23 08:57 Dose: 1 mg Documented By: MARY Hydromorphone HCl (Hydromorphone Hcl 0.5 Mg/0.5 Ml Syringe) 0.5 mg IVPUSH Q4H PRN; Protocol PRN Reason: Pain, Severe (Pain Scale 7-10) Last Admin: 10/01/23 08:57 Dose: 0.5 mg Documented By: MARY Levetiracetam (Levetiracetam 500 Mg Tablet) 500 mg PO BID [facility] Last Admin: 10/01/23 08:56 Dose: 500 mg Documented By: MARY Melatonin (Melatonin 3 Mg Tablet) 6 mg PO BEDTIME PRN PRN Reason: Insomnia Last Admin: 09/26/23 21:42 Dose: 6 mg Documented By: LULU Metoprolol Tartrate (Metoprolol Tartrate 50 Mg Tablet) 50 mg PO BID [facility]; Protocol Last Admin: 10/01/23 08:57 Dose: 50 mg Documented By: MARY Mirtazapine (Mirtazapine 30 Mg Tablet) 30 mg PO BEDTIME [facility] Last Admin: 09/30/23 19:49 Dose: 30 mg Documented By: HOANG Omeprazole (Omeprazole 20 Mg Capsule.Dr) 20 mg PO DAILY@0630 [facility] Last Admin: 10/01/23 04:04 Dose: 20 mg Documented By: HOANG Ondansetron HCl (Ondansetron Hcl 4 Mg/2 Ml Vial) 4 mg IVPUSH Q8H PRN PRN Reason: Nausea and Vomiting Last Admin: 09/27/23 01:21 Dose: 4 mg Documented By: LULU Oxycodone HCl (Oxycodone Hcl Immed Release 5 Mg Tablet) 5 mg PO Q4H PRN PRN Reason: Pain, Moderate(Pain Scale 4-6) Last Admin: 10/01/23 10:04 Dose: 5 mg Documented By: MARY Polyethylene Glycol (Polyethylene Glycol 3350 17 Gm Powd.Pack) 17 gm PO DAILY [facility] Last Admin: 10/01/23 08:58 Dose: 17 gm Documented By: MARY Sertraline HCl (Sertraline Hcl 25 Mg Tablet) 25 mg PO DAILY [facility] Last Admin: 10/01/23 08:56 Dose: 25 mg Documented By: MARY Sodium Chloride (0.9 % Sodium Chloride Flush 3 Ml Syringe) 3 ml IVFLUSH QSHIFT [facility] Last Admin: 10/01/23 08:57 Dose: 3 ml Documented By: MARY Sodium Chloride (Sodium Chloride 0.65 % Nasal 44 Ml Sprbtl) 1 spray NOSTRIL-B Q1H PRN PRN Reason: dryness Last Admin: 09/27/23 01:21 Dose: 1 spray Documented By: LULU Labs 09/29/23 06:56 09/27/23 06:27 Assessment and Plan (1) Elevated troponin: Status: Acute Plan 57-year-old female with a PMH significant for?COPD chronically on 3L NC, HTN, carotid artery stenosis s/p CVA 2016 with residual right-sided hemiparesis, seizure disorder s/p CVA, CAD, takotsubo cardiomyopathy, and MDD who presents to the ED for evaluation of right hip and leg pain after fall at home. Pt will be admitted to the hospital for treatment and further evaluation of right hip fracture. Right hip fracture s/p rt hip CRPP Good pain control, on scheduled Tylenol ,oxycodone and as needed IV Dilaudid Lovenox for DVT prophylaxis/PT recommend short-term rehab stool softeners. Acute on chronic normocytic anemia, acute blood loss post surgery /symptomatic iron studies showed low iron, likely due to poor by mouth intake acute blood loss s/p 1 unit of packed RBC hematocrit improved continue iron supplements follow CBC and BMP. Sirs criteria resolved no source of infection found Moderate protein calorie malnutrition supplements added. Coronary artery disease continue metoprolol dose increased to 50 b.i.d. continue statin and aspirin COPD no acute exacerbation continue home inhalers and 3 L of home oxygen. Hx of CVA on aspirin and statin at baseline with right hemiparesis, ambulates with the help of cane Seizure disorder Continue keppra GERD Continue PPI Mood disorder Continue mirtazapine, sertraline Full Code DVT Prophylaxis: On Lovenox Attending Dr. Fara WALKER plan for STR Pt. will require continued inpatient hospitalization for management post operative care ,right hip surgery/anemia and safe disposition Quality Stroke Does the patient have a stroke diagnosis?: No VTE Prior VTE?: No VTE Risk Level:: Medical - moderate - high VTE Device Contraindication: N/A - Device Ordered VTE Drug Contraindication: Treatment Not Indicated
--- NOTE | 2023-10-01 12:34 | PM.PNORT ---
Subjective Subjective Date of Service: 10/01/23 Interval history: POD6 s/p right hip CRPP Patient is resting in chair eating lunch Reports mild discomfort Pain is managed No additional complaints Physical Exam Vital Signs: Vital Signs: Last Vital Signs Temp 98.1 F 10/01/23 11:33 Pulse 74 10/01/23 11:33 Resp 16 10/01/23 11:33 BP 109/54 L 10/01/23 11:33 Pulse Ox 96 10/01/23 11:33 O2 Del Method Nasal Cannula 10/01/23 11:33 O2 Flow Rate 2 10/01/23 11:33 Oxygen Flow Rate 3 09/25/23 14:49 BMI result Body Mass Index 15.7 Const: General: cooperative, healthy appearing and no acute distress Resp: Effort & Inspection: normal respiratory effort and able to speak in complete sentences Cardio: Rate: regular rate Peripheral pulses: Peripheral pulses 2+ throughout GI: Palpation (GI): Soft to palpation Skin: General skin exam: no rashes or lesions noted Extrem: Other: incision clean dry and intact. [place] intact. No erythema or effusion. Calf supple nontender. Neurovascularly intact. Procedures Date of Service Date of Service: 10/01/23 Progress Note: A&P Assessment and plan (1) Closed subcapital fracture of femur: Status: Acute Assessment and Plan: Continue pain mgmnt Continue Lovenox for dvt ppx Continue PT/OT for rt hip CRPP- WBAT Dispo planning-Pending rehab placement (2) Hemiparesis affecting right side as late effect of cerebrovascular accident: Status: Acute Time Spent With Patient Time: Total time managing care of this patient today ____ minutes. Quality Stroke Does the patient have a stroke diagnosis?: No VTE Prior VTE?: No VTE Risk Level:: Medical - moderate - high VTE Device Contraindication: N/A - Device Ordered VTE Drug Contraindication: Treatment Not Indicated
--- NOTE | 2023-10-01 13:07 | W.PM.OPN ---
Operative Note Operative Note Date of Service: 09/25/23 Narrative: Date of Service: 09/25/23 Pre-op diagnosis: Right femoral neck fracture Post-op diagnosis: same Procedure: CRPP right femoral neck Implants: Michelle 6.5 partially threaded cancellous screws x 3 Surgeon: Vicente Peralta MD Anesthesia: spinal Was an Event Specialist Product Demonstrator used for this Procedure?: No Estimated blood loss (mL): 20 IV fluids (mL): 500 Pathology: none sent Condition: stable Disposition: PACU Procedure in detail:? Patient was brought to the operating room and prepped and draped in standard sterile fashion.? Time-out was called to identify proper site procedure proper surgeon and IV antibiotics per weight were administered.? She was positioned on the fracture table with slight internal rotation? and biplanar fluoroscopy confirmed initial fracture reduction.? I then made a stab incision at the level of the lesser. This was a valgus impacted femoral neck fracture. I then placed 3 k-wires in a inverted triangle configuration through the femoral neck and into the femoral head. I used biplanar fluoro to confirm screw position on the AP and lateral projection. I was satisfied with the position of the k-wires I measured and then placed three partially threaded cancellous screws over the wires. I was satisfied with the fracture reduction and screw position. I copiously irrigated closed with absorbable sutures yolanda and injected 30 mL of into the area of the incisions.? Patient was placed in sterile dressing awakened from anesthesia brought to recovery room stable condition there were no known complications.
[2023-10-01] MEDS: Mirtazapine 30 MG TABLET PO (21:19)
[2023-10-01] MEDS: Atorvastatin Calcium 40 MG TABLET PO (21:19)
[2023-10-02] MEDS: HYDROmorphone HCl 0.5 MG/0.5 ML SYRINGE IVPUSH ×5 (00:14→22:42)
[2023-10-02 03:27] VITALS: BP 130/64; PULSE 71; RESP 20; TEMP 36.1; O2SAT 99
[2023-10-02] MEDS: Omeprazole 20 MG CAPSULE.DR PO (05:08)
[2023-10-02] MEDS: Acetaminophen 325 MG TABLET 650 MG PO (05:13)
[2023-10-02 07:35] VITALS: BP 143/70; PULSE 67; RESP 20; TEMP 36.1; O2SAT 98
[2023-10-02] MEDS: polyethylene glycoL 3350 17 GM POWD.PACK PO (08:47)
[2023-10-02] MEDS: Ferrous Sulfate 324 MG TABLET.DR PO ×2 (08:47→15:17)
[2023-10-02] MEDS: Folic Acid 1 MG TABLET PO (08:47)
[2023-10-02] MEDS: Aspirin Enteric Coated 81 MG TABLET.DR PO (08:47)
[2023-10-02] MEDS: Docusate Sodium 100 MG CAPSULE 200 MG PO (08:47)
[2023-10-02] MEDS: oxyCODONE HCl Immed Release 5 MG TABLET PO ×3 (08:47→20:13)
[2023-10-02] MEDS: amLODIPine Besylate 5 MG TABLET PO (08:47)
[2023-10-02] MEDS: levETIRAcetam 500 MG TABLET PO ×2 (08:47→20:12)
[2023-10-02] MEDS: 0.9 % Sodium Chloride Flush 3 ML SYRINGE IVFLUSH ×3 (08:48→20:13)
[2023-10-02] MEDS: Metoprolol Tartrate 50 MG TABLET PO ×2 (08:48→20:13)
[2023-10-02] MEDS: Sertraline HCL 25 MG TABLET PO (08:48)
[2023-10-02] MEDS: Ascorbic Acid 250 MG TABLET PO ×2 (08:48→20:12)
--- NOTE | 2023-10-02 09:46 | HO.PM.IMPN ---
Subjective Subjective Date of Service: 10/02/23 Interval History: Feeling better this morning no lightheadedness, no dizziness, no nausea tolerating diet no abdominal pain, had bowel movement this morning complaining of persistent hip pain. Review of Systems All other system reviewed and negative. Physical Exam Vital Signs: Vital Signs: Last Vital Signs Temp 97 F 10/02/23 07:35 Pulse 67 10/02/23 07:35 Resp 20 10/02/23 07:35 BP 143/70 H 10/02/23 07:35 Pulse Ox 98 10/02/23 07:35 O2 Del Method Nasal Cannula 10/02/23 07:35 O2 Flow Rate 3 10/02/23 07:35 Oxygen Flow Rate 3 09/25/23 14:49 BMI result Body Mass Index 15.7 Appearing in no acute distress lung sounds are clear to auscultation heart regular rate rhythm, clear S1, S2 positive bowel sounds, abdomen is soft, nontender neuro patient is alert x3, no focal deficits Objective Data Active Medications Acetaminophen (Acetaminophen 325 Mg Tablet) 650 mg PO Q6H PRN PRN Reason: Pain, Mild (Pain Scale 1-3) Last Admin: 10/02/23 05:13 Dose: 650 mg Documented By: MICHELLE Albuterol Sulfate (Albuterol Sulfate 90 Mcg 8 Gm Inhaler) 2 puff INHALE Q6H PRN PRN Reason: bronchospasm Albuterol/Ipratropium (Albuterol/Iprat 2.5/0.5mg 3 Ml Ampul.Neb) 3 ml INHALE TID PRN PRN Reason: shortness of breath Amlodipine Besylate (Amlodipine Besylate 5 Mg Tablet) 5 mg PO DAILY [facility]; Protocol Last Admin: 10/02/23 08:47 Dose: 5 mg Documented By: MARY Ascorbic Acid (Ascorbic Acid 250 Mg Tablet) 250 mg PO BID [facility] Last Admin: 10/02/23 08:48 Dose: 250 mg Documented By: MARY Aspirin (Aspirin Enteric Coated 81 Mg Tablet.) 81 mg PO DAILY [facility] Last Admin: 10/02/23 08:47 Dose: 81 mg Documented By: MARY Atorvastatin Calcium (Atorvastatin Calcium 40 Mg Tablet) 40 mg PO BEDTIME [facility] Last Admin: 10/01/23 21:19 Dose: 40 mg Documented By: MICHELLE Benzonatate (Benzonatate 100 Mg Capsule) 100 mg PO TID PRN PRN Reason: Cough Last Admin: 09/26/23 21:42 Dose: 100 mg Documented By: LULU Docusate Sodium (Docusate Sodium 100 Mg Capsule) 100 mg PO DAILY PRN PRN Reason: Constipation Last Admin: 09/27/23 10:22 Dose: 100 mg Documented By: MAXWELL Docusate Sodium (Docusate Sodium 100 Mg Capsule) 200 mg PO DAILY [facility] Last Admin: 10/02/23 08:47 Dose: 200 mg Documented By: MARY Enoxaparin Sodium (Enoxaparin Sodium 40 Mg/0.4 Ml Syringe) 40 mg SUBCUT Q24H [facility] Last Admin: 10/01/23 10:04 Dose: 40 mg Documented By: MARY Ferrous Sulfate (Ferrous Sulfate 324 Mg Tablet.) 324 mg PO BIDWM [facility] Last Admin: 10/02/23 08:47 Dose: 324 mg Documented By: MARY Folic Acid (Folic Acid 1 Mg Tablet) 1 mg PO DAILY [facility] Last Admin: 10/02/23 08:47 Dose: 1 mg Documented By: MARY Hydromorphone HCl (Hydromorphone Hcl 0.5 Mg/0.5 Ml Syringe) 0.5 mg IVPUSH Q4H PRN; Protocol PRN Reason: Pain, Severe (Pain Scale 7-10) Last Admin: 10/02/23 05:08 Dose: 0.5 mg Documented By: MICHELLE Levetiracetam (Levetiracetam 500 Mg Tablet) 500 mg PO BID [facility] Last Admin: 10/02/23 08:47 Dose: 500 mg Documented By: MARY Melatonin (Melatonin 3 Mg Tablet) 6 mg PO BEDTIME PRN PRN Reason: Insomnia Last Admin: 09/26/23 21:42 Dose: 6 mg Documented By: LULU Metoprolol Tartrate (Metoprolol Tartrate 50 Mg Tablet) 50 mg PO BID [facility]; Protocol Last Admin: 10/02/23 08:48 Dose: 50 mg Documented By: MARY Mirtazapine (Mirtazapine 30 Mg Tablet) 30 mg PO BEDTIME [facility] Last Admin: 10/01/23 21:19 Dose: 30 mg Documented By: MICHELLE Omeprazole (Omeprazole 20 Mg Capsule.Dr) 20 mg PO DAILY@0630 [facility] Last Admin: 10/02/23 05:08 Dose: 20 mg Documented By: MICHELLE Ondansetron HCl (Ondansetron Hcl 4 Mg/2 Ml Vial) 4 mg IVPUSH Q8H PRN PRN Reason: Nausea and Vomiting Last Admin: 09/27/23 01:21 Dose: 4 mg Documented By: LULU Oxycodone HCl (Oxycodone Hcl Immed Release 5 Mg Tablet) 5 mg PO Q4H PRN PRN Reason: Pain, Moderate(Pain Scale 4-6) Last Admin: 10/02/23 08:47 Dose: 5 mg Documented By: MARY Polyethylene Glycol (Polyethylene Glycol 3350 17 Gm Powd.Pack) 17 gm PO DAILY [facility] Last Admin: 10/02/23 08:47 Dose: 17 gm Documented By: MARY Sertraline HCl (Sertraline Hcl 25 Mg Tablet) 25 mg PO DAILY [facility] Last Admin: 10/02/23 08:48 Dose: 25 mg Documented By: MARY Sodium Chloride (0.9 % Sodium Chloride Flush 3 Ml Syringe) 3 ml IVFLUSH QSHIFT [facility] Last Admin: 10/02/23 08:48 Dose: 3 ml Documented By: MARY Sodium Chloride (Sodium Chloride 0.65 % Nasal 44 Ml Sprbtl) 1 spray NOSTRIL-B Q1H PRN PRN Reason: dryness Last Admin: 09/27/23 01:21 Dose: 1 spray Documented By: LULU Labs 09/29/23 06:56 09/27/23 06:27 Assessment and Plan (1) Elevated troponin: Status: Acute Plan 57-year-old female with a PMH significant for?COPD chronically on 3L NC, HTN, carotid artery stenosis s/p CVA 2015 with residual right-sided hemiparesis, seizure disorder s/p CVA, CAD, takotsubo cardiomyopathy, and MDD who presents to the ED for evaluation of right hip and leg pain after fall at home. Pt will be admitted to the hospital for treatment and further evaluation of right hip fracture. Right hip fracture s/p rt hip CRPP Good pain control, on scheduled Tylenol ,oxycodone and as needed IV Dilaudid Lovenox for DVT prophylaxis/PT recommend short-term rehab stool softeners. Acute on chronic normocytic anemia, acute blood loss post surgery /symptomatic iron studies showed low iron, likely due to poor by mouth intake acute blood loss s/p 1 unit of packed RBC hematocrit improved continue iron supplements follow CBC and BMP. Sirs criteria resolved no source of infection found Moderate protein calorie malnutrition supplements added. Coronary artery disease continue metoprolol dose increased to 50 b.i.d. continue statin and aspirin COPD no acute exacerbation continue home inhalers and 3 L of home oxygen. Hx of CVA on aspirin and statin at baseline with right hemiparesis, ambulates with the help of cane Seizure disorder Continue keppra GERD Continue PPI Mood disorder Continue mirtazapine, sertraline Full Code DVT Prophylaxis: On Lovenox Attending Dr. Chaudhari DISPZoya plan for STR Pt. will require continued inpatient hospitalization for management post operative care ,right hip surgery/anemia and safe disposition Quality Stroke Does the patient have a stroke diagnosis?: No VTE Prior VTE?: No VTE Risk Level:: Medical - moderate - high VTE Device Contraindication: N/A - Device Ordered VTE Drug Contraindication: Treatment Not Indicated
[2023-10-02] MEDS: Enoxaparin Sodium 40 MG/0.4 ML SYRINGE SUBCUT (10:01)
[2023-10-02 11:42] VITALS: BP 124/52; PULSE 63; RESP 20; TEMP 36.4; O2SAT 98
[2023-10-02 15:29] VITALS: BP 142/64; PULSE 72; RESP 18; TEMP 36.9; O2SAT 95
[2023-10-02 19:55] VITALS: BP 156/76; PULSE 87; RESP 18; TEMP 36.2; O2SAT 93
[2023-10-02] MEDS: Mirtazapine 30 MG TABLET PO (20:12)
[2023-10-02] MEDS: Atorvastatin Calcium 40 MG TABLET PO (20:12)
[2023-10-02] MEDS: Melatonin 3 MG TABLET 6 MG PO (20:13)
[2023-10-02 23:27] VITALS: BP 136/64; PULSE 68; RESP 18; TEMP 37.1; O2SAT 98
[2023-10-03] MEDS: oxyCODONE HCl Immed Release 5 MG TABLET PO ×4 (01:23→21:30)
[2023-10-03 04:00] VITALS: BP 149/70; PULSE 76; RESP 20; TEMP 36.4; O2SAT 94
[2023-10-03] MEDS: Omeprazole 20 MG CAPSULE.DR PO (05:25)
[2023-10-03] MEDS: HYDROmorphone HCl 0.5 MG/0.5 ML SYRINGE IVPUSH ×2 (06:22→16:30)
[2023-10-03 07:20] VITALS: BP 121/58; PULSE 76; RESP 20; TEMP 36.9; O2SAT 98
[2023-10-03] MEDS: Docusate Sodium 100 MG CAPSULE 200 MG PO (08:05)
[2023-10-03] MEDS: amLODIPine Besylate 5 MG TABLET PO (08:05)
[2023-10-03] MEDS: Folic Acid 1 MG TABLET PO (08:05)
[2023-10-03] MEDS: Aspirin Enteric Coated 81 MG TABLET.DR PO (08:05)
[2023-10-03] MEDS: Ferrous Sulfate 324 MG TABLET.DR PO ×2 (08:05→16:28)
[2023-10-03] MEDS: Ascorbic Acid 250 MG TABLET PO ×2 (08:05→21:29)
[2023-10-03] MEDS: levETIRAcetam 500 MG TABLET PO ×2 (08:05→21:30)
[2023-10-03] MEDS: Sertraline HCL 25 MG TABLET PO (08:05)
[2023-10-03] MEDS: Metoprolol Tartrate 50 MG TABLET PO ×2 (08:06→21:29)
[2023-10-03] MEDS: polyethylene glycoL 3350 17 GM POWD.PACK PO (08:11)
[2023-10-03] MEDS: 0.9 % Sodium Chloride Flush 3 ML SYRINGE IVFLUSH ×3 (08:11→21:34)
--- NOTE | 2023-10-03 09:25 | MHC.CM.PN ---
SNF bed search is in progress; [facility] and [facility] is intersted but no bed offer yet. CM will follow.
--- NOTE | 2023-10-03 09:57 | HO.PM.IMPN ---
Subjective Subjective Date of Service: 10/03/23 Interval History: Follow up hip fx s/p crpp doing better today Review of Systems All other system reviewed and negative. Physical Exam Vital Signs: Vital Signs: Last Vital Signs Temp 98.4 F 10/03/23 07:20 Pulse 76 10/03/23 07:20 Resp 20 10/03/23 07:20 BP 121/58 L 10/03/23 07:20 Pulse Ox 98 10/03/23 07:20 O2 Del Method Nasal Cannula 10/03/23 07:20 O2 Flow Rate 3 10/03/23 07:20 Oxygen Flow Rate 3 09/25/23 14:49 BMI result Body Mass Index 15.7 Appearing in no acute distress lung sounds are clear to auscultation heart regular rate rhythm, clear S1, S2 positive bowel sounds, abdomen is soft, nontender neuro patient is alert x3, no focal deficits Objective Data Active Medications Acetaminophen (Acetaminophen 325 Mg Tablet) 650 mg PO Q6H PRN PRN Reason: Pain, Mild (Pain Scale 1-3) Last Admin: 10/02/23 05:13 Dose: 650 mg Documented By: MICHELLE Albuterol Sulfate (Albuterol Sulfate 90 Mcg 8 Gm Inhaler) 2 puff INHALE Q6H PRN PRN Reason: bronchospasm Albuterol/Ipratropium (Albuterol/Iprat 2.5/0.5mg 3 Ml Ampul.Neb) 3 ml INHALE TID PRN PRN Reason: shortness of breath Amlodipine Besylate (Amlodipine Besylate 5 Mg Tablet) 5 mg PO DAILY [facility]; Protocol Last Admin: 10/03/23 08:05 Dose: 5 mg Documented By: RONNIE Ascorbic Acid (Ascorbic Acid 250 Mg Tablet) 250 mg PO BID [facility] Last Admin: 10/03/23 08:05 Dose: 250 mg Documented By: RONNIE Aspirin (Aspirin Enteric Coated 81 Mg Tablet.) 81 mg PO DAILY [facility] Last Admin: 10/03/23 08:05 Dose: 81 mg Documented By: RONNIE Atorvastatin Calcium (Atorvastatin Calcium 40 Mg Tablet) 40 mg PO BEDTIME [facility] Last Admin: 10/02/23 20:12 Dose: 40 mg Documented By: SUZANNE Benzonatate (Benzonatate 100 Mg Capsule) 100 mg PO TID PRN PRN Reason: Cough Last Admin: 09/26/23 21:42 Dose: 100 mg Documented By: LULU Docusate Sodium (Docusate Sodium 100 Mg Capsule) 100 mg PO DAILY PRN PRN Reason: Constipation Last Admin: 09/27/23 10:22 Dose: 100 mg Documented By: MAXWELL Docusate Sodium (Docusate Sodium 100 Mg Capsule) 200 mg PO DAILY [facility] Last Admin: 10/03/23 08:05 Dose: 200 mg Documented By: RONNIE Enoxaparin Sodium (Enoxaparin Sodium 40 Mg/0.4 Ml Syringe) 40 mg SUBCUT Q24H [facility] Last Admin: 10/02/23 10:01 Dose: 40 mg Documented By: MARY Ferrous Sulfate (Ferrous Sulfate 324 Mg Tablet.) 324 mg PO BIDWM [facility] Last Admin: 10/03/23 08:05 Dose: 324 mg Documented By: RONNIE Folic Acid (Folic Acid 1 Mg Tablet) 1 mg PO DAILY [facility] Last Admin: 10/03/23 08:05 Dose: 1 mg Documented By: RONNIE Hydromorphone HCl (Hydromorphone Hcl 0.5 Mg/0.5 Ml Syringe) 0.5 mg IVPUSH Q4H PRN; Protocol PRN Reason: Pain, Severe (Pain Scale 7-10) Last Admin: 09/30/23 09:15 Dose: 0.5 mg Documented By: RANCHO Levetiracetam (Levetiracetam 500 Mg Tablet) 500 mg PO BID [facility] Last Admin: 10/03/23 08:05 Dose: 500 mg Documented By: RONNIE Melatonin (Melatonin 3 Mg Tablet) 6 mg PO BEDTIME PRN PRN Reason: Insomnia Last Admin: 10/02/23 20:13 Dose: 6 mg Documented By: SUZANNE Metoprolol Tartrate (Metoprolol Tartrate 50 Mg Tablet) 50 mg PO BID [facility]; Protocol Last Admin: 10/03/23 08:06 Dose: 50 mg Documented By: RNONIE Mirtazapine (Mirtazapine 30 Mg Tablet) 30 mg PO BEDTIME [facility] Last Admin: 10/02/23 20:12 Dose: 30 mg Documented By: SUZANNE Omeprazole (Omeprazole 20 Mg Capsule.) 20 mg PO DAILY@0630 [facility] Last Admin: 10/03/23 05:25 Dose: 20 mg Documented By: SUZANNE Ondansetron HCl (Ondansetron Hcl 4 Mg/2 Ml Vial) 4 mg IVPUSH Q8H PRN PRN Reason: Nausea and Vomiting Last Admin: 09/27/23 01:21 Dose: 4 mg Documented By: LULU Oxycodone HCl (Oxycodone Hcl Immed Release 5 Mg Tablet) 5 mg PO Q4H PRN PRN Reason: Pain, Moderate(Pain Scale 4-6) Last Admin: 10/03/23 08:05 Dose: 5 mg Documented By: RONNIE Polyethylene Glycol (Polyethylene Glycol 3350 17 Gm Powd.Pack) 17 gm PO DAILY [facility] Last Admin: 10/03/23 08:11 Dose: 17 gm Documented By: RONNIE Sertraline HCl (Sertraline Hcl 25 Mg Tablet) 25 mg PO DAILY [facility] Last Admin: 10/03/23 08:05 Dose: 25 mg Documented By: RONNIE Sodium Chloride (0.9 % Sodium Chloride Flush 3 Ml Syringe) 3 ml IVFLUSH QSHIFT [facility] Last Admin: 10/03/23 08:11 Dose: 3 ml Documented By: RONNIE Sodium Chloride (Sodium Chloride 0.65 % Nasal 44 Ml Sprbtl) 1 spray NOSTRIL-B Q1H PRN PRN Reason: dryness Last Admin: 09/27/23 01:21 Dose: 1 spray Documented By: LULU Labs 09/29/23 06:56 09/27/23 06:27 Assessment and Plan (1) Elevated troponin: Status: Acute Plan 57-year-old female with a PMH significant for?COPD chronically on 3L NC, HTN, carotid artery stenosis s/p CVA 2016 with residual right-sided hemiparesis, seizure disorder s/p CVA, CAD, takotsubo cardiomyopathy, and MDD who presents to the ED for evaluation of right hip and leg pain after fall at home. Pt will be admitted to the hospital for treatment and further evaluation of right hip fracture. Right hip fracture s/p rt hip CRPP 09/25/23 wean off IV pain medications Lovenox for DVT prophylaxis/PT recommend short-term rehab stool softeners. Acute on chronic normocytic anemia, acute blood loss post surgery /symptomatic iron studies showed low iron, likely due to poor by mouth intake acute blood loss s/p 1 unit of packed RBC hematocrit improved continue iron supplements follow CBC and BMP. Sirs criteria resolved no source of infection found Moderate protein calorie malnutrition. BMI 15.7 supplements added. Coronary artery disease continue metoprolol dose increased to 50 b.i.d. continue statin and aspirin COPD no acute exacerbation continue home inhalers and 3 L of home oxygen. Hx of CVA on aspirin and statin at baseline with right hemiparesis, ambulates with the help of cane Seizure disorder Continue keppra GERD Continue PPI Mood disorder Continue mirtazapine, sertraline Full Code DVT Prophylaxis: On Lovenox Attending Dr. Chaudhari DISPO plan for STR Pt. will require continued inpatient hospitalization for management post operative care ,right hip surgery/anemia and safe disposition Quality Stroke Does the patient have a stroke diagnosis?: No VTE Prior VTE?: No VTE Risk Level:: Medical - moderate - high VTE Device Contraindication: N/A - Device Ordered VTE Drug Contraindication: Treatment Not Indicated
[2023-10-03] MEDS: Enoxaparin Sodium 40 MG/0.4 ML SYRINGE SUBCUT (10:53)
[2023-10-03 10:57] VITALS: BP 111/56; PULSE 71; RESP 20; TEMP 36.7; O2SAT 100
--- NOTE | 2023-10-03 11:39 | MHC.CLN ---
F/U PO INTAKE 50-100% DIET RX: REGULAR-APPROPRIATE PT RECEIVING MAGIC CUP TID TO INCREASE KCALS MONITOR PO INTAKE AND ENCOURAGE SUPPLEMENTS OBTAIN NEW WEIGHT R/T DX MALNUTRITION
[2023-10-03 11:40] VITALS: BMI 16.7
[2023-10-03] MEDS: Acetaminophen 325 MG TABLET 650 MG PO (13:50)
[2023-10-03 15:19] VITALS: BP 135/57; PULSE 75; RESP 18; TEMP 36; O2SAT 95
[2023-10-03 20:00] VITALS: BP 141/88; PULSE 105; RESP 20; TEMP 36.4; O2SAT 93
[2023-10-03] MEDS: Melatonin 3 MG TABLET 6 MG PO (21:29)
[2023-10-03] MEDS: Mirtazapine 30 MG TABLET PO (21:30)
[2023-10-03] MEDS: Atorvastatin Calcium 40 MG TABLET PO (21:30)
[2023-10-03 23:35] VITALS: BP 142/65; PULSE 72; RESP 16; TEMP 36.2; O2SAT 97
[2023-10-04] MEDS: HYDROmorphone HCl 0.5 MG/0.5 ML SYRINGE IVPUSH ×3 (01:15→19:32)
[2023-10-04 03:07] VITALS: BP 151/66; PULSE 70; RESP 18; TEMP 36.3; O2SAT 100
[2023-10-04] MEDS: Omeprazole 20 MG CAPSULE.DR PO (06:40)
[2023-10-04] MEDS: oxyCODONE HCl Immed Release 5 MG TABLET PO ×3 (06:40→23:54)
[2023-10-04 07:07] VITALS: BP 135/67; PULSE 75; RESP 20; TEMP 36.2; O2SAT 99
[2023-10-04] MEDS: 0.9 % Sodium Chloride Flush 3 ML SYRINGE IVFLUSH ×2 (08:03→16:01)
[2023-10-04] MEDS: amLODIPine Besylate 5 MG TABLET PO (08:04)
[2023-10-04] MEDS: levETIRAcetam 500 MG TABLET PO ×2 (08:04→21:16)
[2023-10-04] MEDS: Aspirin Enteric Coated 81 MG TABLET.DR PO (08:04)
[2023-10-04] MEDS: Ascorbic Acid 250 MG TABLET PO ×2 (08:04→21:16)
[2023-10-04] MEDS: Sertraline HCL 25 MG TABLET PO (08:04)
[2023-10-04] MEDS: Docusate Sodium 100 MG CAPSULE 200 MG PO (08:04)
[2023-10-04] MEDS: polyethylene glycoL 3350 17 GM POWD.PACK PO (08:04)
[2023-10-04] MEDS: Metoprolol Tartrate 50 MG TABLET PO ×2 (08:04→21:17)
[2023-10-04] MEDS: Folic Acid 1 MG TABLET PO (08:04)
[2023-10-04] MEDS: Ferrous Sulfate 324 MG TABLET.DR PO ×2 (08:05→16:01)
[2023-10-04 09:35] LABS: Hematocrit 37.7 % (37.0-47.0); Hemoglobin 11.6 g/dl (12.0-16.0); Mean Corpuscular HGB Conc 30.8 g/dl (31.0-35.0); Mean Corpuscular Volume 87.7 fL (80.0-98.0); Mean Platelet Volume 10.3 fL (9.4-12.3); Platelet Count 528 X10*3/uL (160-400); Red Cell Distribution Width 14.3 % (11.0-16.0); White Blood Count 11.6 X10*3/uL (4.8-10.8)
[2023-10-04 09:49] LABS: Anion Gap 15 (12-20); Blood Urea Nitrogen 15 mg/dL (9-16); Calcium 10.4 mg/dL (8.4-10.2); Carbon Dioxide 36 mmol/L (22-29); Chloride 89 mmol/L (96-108); Creatinine Clr Calc Pharmacy 68.1; Estimated Glomerular Filt Rate > 60; Glucose Random 84 mg/dL (60-115); Potassium 3.9 mmol/L (3.3-5.1); Sodium 136 mmol/L (135-145)
[2023-10-04] MEDS: Enoxaparin Sodium 40 MG/0.4 ML SYRINGE SUBCUT (10:33)
--- NOTE | 2023-10-04 10:56 | HO.PM.IMPN ---
Subjective Subjective Date of Service: 10/04/23 Interval History: Follow up hip fx doing better today but not wanting to move as much as she should no nausea, vomiting, Review of Systems All other system reviewed and negative. Physical Exam Vital Signs: Vital Signs: Last Vital Signs Temp 97.2 F 10/04/23 07:07 Pulse 75 10/04/23 07:07 Resp 20 10/04/23 07:07 BP 135/67 10/04/23 07:07 Pulse Ox 99 10/04/23 07:07 O2 Del Method Nasal Cannula 10/04/23 07:07 O2 Flow Rate 3 10/04/23 07:07 Oxygen Flow Rate 3 09/25/23 14:49 BMI result Body Mass Index 16.7 Objective Data Active Medications Acetaminophen (Acetaminophen 325 Mg Tablet) 650 mg PO Q6H PRN PRN Reason: Pain, Mild (Pain Scale 1-3) Last Admin: 10/03/23 13:50 Dose: 650 mg Documented By: EMIL Albuterol Sulfate (Albuterol Sulfate 90 Mcg 8 Gm Inhaler) 2 puff INHALE Q6H PRN PRN Reason: bronchospasm Albuterol/Ipratropium (Albuterol/Iprat 2.5/0.5mg 3 Ml Ampul.Neb) 3 ml INHALE TID PRN PRN Reason: shortness of breath Amlodipine Besylate (Amlodipine Besylate 5 Mg Tablet) 5 mg PO DAILY [facility]; Protocol Last Admin: 10/04/23 08:04 Dose: 5 mg Documented By: SHAYNA Ascorbic Acid (Ascorbic Acid 250 Mg Tablet) 250 mg PO BID [facility] Last Admin: 10/04/23 08:04 Dose: 250 mg Documented By: SHAYNA Aspirin (Aspirin Enteric Coated 81 Mg Tablet.) 81 mg PO DAILY [facility] Last Admin: 10/04/23 08:04 Dose: 81 mg Documented By: SHAYNA Atorvastatin Calcium (Atorvastatin Calcium 40 Mg Tablet) 40 mg PO BEDTIME [facility] Last Admin: 10/03/23 21:30 Dose: 40 mg Documented By: MICHELLE Benzonatate (Benzonatate 100 Mg Capsule) 100 mg PO TID PRN PRN Reason: Cough Last Admin: 09/26/23 21:42 Dose: 100 mg Documented By: LULU Docusate Sodium (Docusate Sodium 100 Mg Capsule) 100 mg PO DAILY PRN PRN Reason: Constipation Last Admin: 09/27/23 10:22 Dose: 100 mg Documented By: MAXWELL Docusate Sodium (Docusate Sodium 100 Mg Capsule) 200 mg PO DAILY [facility] Last Admin: 10/04/23 08:04 Dose: 200 mg Documented By: SHAYNA Enoxaparin Sodium (Enoxaparin Sodium 40 Mg/0.4 Ml Syringe) 40 mg SUBCUT Q24H [facility] Last Admin: 10/04/23 10:33 Dose: 40 mg Documented By: SHAYNA Ferrous Sulfate (Ferrous Sulfate 324 Mg Tablet.) 324 mg PO BIDWM [facility] Last Admin: 10/04/23 08:05 Dose: 324 mg Documented By: SHAYNA Folic Acid (Folic Acid 1 Mg Tablet) 1 mg PO DAILY [facility] Last Admin: 10/04/23 08:04 Dose: 1 mg Documented By: SHAYNA Hydromorphone HCl (Hydromorphone Hcl 0.5 Mg/0.5 Ml Syringe) 0.5 mg IVPUSH Q8H PRN; Protocol PRN Reason: Pain, Severe (Pain Scale 7-10) Last Admin: 10/04/23 10:33 Dose: 0.5 mg Documented By: SHAYNA Levetiracetam (Levetiracetam 500 Mg Tablet) 500 mg PO BID [facility] Last Admin: 10/04/23 08:04 Dose: 500 mg Documented By: SHAYNA Melatonin (Melatonin 3 Mg Tablet) 6 mg PO BEDTIME PRN PRN Reason: Insomnia Last Admin: 10/03/23 21:29 Dose: 6 mg Documented By: MICHELLE Metoprolol Tartrate (Metoprolol Tartrate 50 Mg Tablet) 50 mg PO BID [facility]; Protocol Last Admin: 10/04/23 08:04 Dose: 50 mg Documented By: SHAYNA Mirtazapine (Mirtazapine 30 Mg Tablet) 30 mg PO BEDTIME [facility] Last Admin: 10/03/23 21:30 Dose: 30 mg Documented By: MICHELLE Omeprazole (Omeprazole 20 Mg Capsule.) 20 mg PO DAILY@0630 [facility] Last Admin: 10/04/23 06:40 Dose: 20 mg Documented By: MICHELLE Ondansetron HCl (Ondansetron Hcl 4 Mg/2 Ml Vial) 4 mg IVPUSH Q8H PRN PRN Reason: Nausea and Vomiting Last Admin: 09/27/23 01:21 Dose: 4 mg Documented By: LULU Oxycodone HCl (Oxycodone Hcl Immed Release 5 Mg Tablet) 5 mg PO Q6H PRN PRN Reason: Pain, Moderate(Pain Scale 4-6) Last Admin: 10/04/23 06:40 Dose: 5 mg Documented By: MICHELLE Polyethylene Glycol (Polyethylene Glycol 3350 17 Gm Powd.Pack) 17 gm PO DAILY [facility] Last Admin: 10/04/23 08:04 Dose: 17 gm Documented By: SHAYNA Sertraline HCl (Sertraline Hcl 25 Mg Tablet) 25 mg PO DAILY [facility] Last Admin: 10/04/23 08:04 Dose: 25 mg Documented By: SHAYNA Sodium Chloride (0.9 % Sodium Chloride Flush 3 Ml Syringe) 3 ml IVFLUSH QSHIFT [facility] Last Admin: 10/04/23 08:03 Dose: 3 ml Documented By: SHAYNA Sodium Chloride (Sodium Chloride 0.65 % Nasal 44 Ml Sprbtl) 1 spray NOSTRIL-B Q1H PRN PRN Reason: dryness Last Admin: 09/27/23 01:21 Dose: 1 spray Documented By: LULU Labs 10/04/23 08:43 10/04/23 08:43 Labs: Laboratory Results - last 24 hr 10/04/23 08:43 MCV 87.7 MCH 27.0 MCHC 30.8 L RDW 14.3 Plt Count 528 H D MPV 10.3 Absolute Nucleated RBC 0.000 Nucleated RBC % (auto) 0.0 Anion Gap 15 Estim Creat Clear Calc 68.1 Estimated GFR > 60 Random Glucose 84 Calcium 10.4 H D Assessment and Plan (1) Elevated troponin: Status: Acute Plan 57-year-old female with a PMH significant for?COPD chronically on 3L NC, HTN, carotid artery stenosis s/p CVA 2015 with residual right-sided hemiparesis, seizure disorder s/p CVA, CAD, takotsubo cardiomyopathy, and MDD who presents to the ED for evaluation of right hip and leg pain after fall at home. Pt will be admitted to the hospital for treatment and further evaluation of right hip fracture. Right hip fracture s/p rt hip closed reduction, percutaneous pinning 09/25/23 wean off IV pain medications Lovenox for DVT prophylaxis/PT recommend short-term rehab stool softeners. encourage oob with all meals and ambulation daily Acute on chronic normocytic anemia, acute blood loss post surgery /symptomatic iron studies showed low iron, likely due to poor by mouth intake s/p 1 unit of packed RBC hematocrit improved continue iron supplements follow CBC and BMP. Sirs criteria resolved no source of infection found Moderate protein calorie malnutrition. BMI 15.7 supplements added. Coronary artery disease continue metoprolol 50 b.i.d. continue statin and aspirin COPD no acute exacerbation continue home inhalers and 3 L of home oxygen. Hx of CVA on aspirin and statin at baseline with right hemiparesis, ambulates with the help of cane Seizure disorder Continue keppra GERD Continue PPI Mood disorder Continue mirtazapine, sertraline Full Code DVT Prophylaxis: On Lovenox Attending Dr. Chaudhari DISPZoya plan for STR when bed available Pt. will require continued inpatient hospitalization for management post operative care ,right hip surgery/anemia and safe disposition Quality Stroke Does the patient have a stroke diagnosis?: No VTE Prior VTE?: No VTE Risk Level:: Medical - moderate - high VTE Device Contraindication: N/A - Device Ordered VTE Drug Contraindication: Treatment Not Indicated
[2023-10-04 11:22] VITALS: BP 121/55; PULSE 68; RESP 20; TEMP 37; O2SAT 96
[2023-10-04 15:23] VITALS: BP 139/63; PULSE 91; RESP 18; TEMP 36.2; O2SAT 96
[2023-10-04 19:49] VITALS: BP 140/65; PULSE 96; RESP 19; TEMP 36.1; O2SAT 94
[2023-10-04] MEDS: Atorvastatin Calcium 40 MG TABLET PO (21:16)
[2023-10-04] MEDS: Melatonin 3 MG TABLET 6 MG PO (21:16)
[2023-10-04] MEDS: Mirtazapine 30 MG TABLET PO (21:16)
[2023-10-04] MEDS: Acetaminophen 325 MG TABLET 650 MG PO (23:53)
[2023-10-04 23:58] VITALS: BP 140/58; PULSE 80; RESP 19; TEMP 36.6; O2SAT 95
[2023-10-05 04:00] VITALS: BP 134/61; PULSE 71; RESP 19; TEMP 36.2; O2SAT 98
[2023-10-05] MEDS: Omeprazole 20 MG CAPSULE.DR PO (06:17)
[2023-10-05] MEDS: Acetaminophen 325 MG TABLET 650 MG PO (06:20)
[2023-10-05] MEDS: oxyCODONE HCl Immed Release 5 MG TABLET PO ×3 (06:21→19:27)
[2023-10-05 07:29] VITALS: BP 163/91; PULSE 82; RESP 16; TEMP 36.3; O2SAT 92
[2023-10-05] MEDS: Ascorbic Acid 250 MG TABLET PO ×2 (08:35→20:55)
[2023-10-05] MEDS: Sertraline HCL 25 MG TABLET PO (08:35)
[2023-10-05] MEDS: levETIRAcetam 500 MG TABLET PO ×2 (08:35→20:55)
[2023-10-05] MEDS: Aspirin Enteric Coated 81 MG TABLET.DR PO (08:35)
[2023-10-05] MEDS: amLODIPine Besylate 5 MG TABLET PO (08:35)
[2023-10-05] MEDS: Metoprolol Tartrate 50 MG TABLET PO ×2 (08:36→20:55)
[2023-10-05] MEDS: Ferrous Sulfate 324 MG TABLET.DR PO ×2 (08:36→16:57)
[2023-10-05] MEDS: Folic Acid 1 MG TABLET PO (08:36)
[2023-10-05] MEDS: Docusate Sodium 100 MG CAPSULE 200 MG PO (08:36)
[2023-10-05] MEDS: HYDROmorphone HCl 0.5 MG/0.5 ML SYRINGE IVPUSH ×2 (08:36→16:57)
[2023-10-05] MEDS: polyethylene glycoL 3350 17 GM POWD.PACK PO (08:37)
--- NOTE | 2023-10-05 09:46 | MHC.CM.PN ---
PT is recommending STR and [facility] is the only facility willing to follow. CM will continue to follow.
[2023-10-05] MEDS: 0.9 % Sodium Chloride Flush 3 ML SYRINGE IVFLUSH ×4 (10:36→20:55)
[2023-10-05] MEDS: Enoxaparin Sodium 40 MG/0.4 ML SYRINGE SUBCUT (10:36)
--- NOTE | 2023-10-05 11:11 | MHC.CLN ---
F/U PO INTAKE 75-100% WT UP 5# SINCE ADMISSION DIET RX: REGULAR-APPROPRIATE PT RECEIVING MAGIC CUP TID TO INCREASE KCALS CONTINUE TO MONITOR PO INTAKE AND ENCOURAGE SUPPLEMENTS
[2023-10-05 11:12] LABS: Glucose, Whole Blood 96 mg/dL (60-115)
[2023-10-05 12:00] VITALS: BP 125/59; PULSE 72; RESP 20; TEMP 36.6; O2SAT 99
[2023-10-05 12:12] LABS: Hematocrit 35.8 % (37.0-47.0); Mean Corpuscular HGB Conc 30.7 g/dl (31.0-35.0); Mean Corpuscular Hemoglobin 26.5 pg (27.0-33.0); Mean Corpuscular Volume 86.3 fL (80.0-98.0); Mean Platelet Volume 9.9 fL (9.4-12.3); Platelet Count 535 X10*3/uL (160-400); Red Blood Count 4.15 X10*6/uL (4.20-5.50); Red Cell Distribution Width 14.3 % (11.0-16.0); White Blood Count 12.7 X10*3/uL (4.8-10.8)
[2023-10-05 12:21] LABS: Anion Gap 16 (12-20); Blood Urea Nitrogen 17 mg/dL (9-16); Calcium 10.2 mg/dL (8.4-10.2); Chloride 94 mmol/L (96-108); Creatinine Clr Calc Pharmacy 59.7; Estimated Glomerular Filt Rate > 60; Glucose Random 81 mg/dL (60-115); Potassium 4.6 mmol/L (3.3-5.1); Sodium 131 mmol/L (135-145)
[2023-10-05 12:54] LABS: Carbon Dioxide 25 mmol/L (22-29)
[2023-10-05 15:24] VITALS: BP 141/63; PULSE 69; RESP 18; TEMP 36.8; O2SAT 99
--- NOTE | 2023-10-05 16:06 | P.PNIM_ITS ---
Subjective Subjective Date of Service: 10/05/23 Interval History: Patient noted to have nosebleeds last few days this morning patient coughed up a blood clot, oxygenation remains stable patient denied chest pain, no palpitations, no lightheadedness, no dizziness, no fevers, no chills. Good pain control right hip. Review of Systems All other system reviewed and negative. Physical Exam 2 Vital Signs: Vital Signs: Last Vital Signs Temp 98.2 F 10/05/23 15:24 Pulse 69 10/05/23 15:24 Resp 18 10/05/23 15:24 BP 141/63 H 10/05/23 15:24 Pulse Ox 99 10/05/23 15:24 O2 Del Method Nasal Cannula, Hu midified O2 10/05/23 15:24 O2 Flow Rate 4 10/05/23 15:24 Oxygen Flow Rate 3 09/25/23 14:49 BMI result Body Mass Index 16.7 Const: Other: General awake alert x3, in no acute distress. Anicteric sclera Neck supple no JVD. CVS regular rate rhythm, Respiratory lungs clear to auscultation, no respiratory distress. Gastrointestinal abdomen soft, non tender, bowel sounds audible, no guarding , no rigidity. Extremities no edema. Neuro right hand contraction deformity ,rt hemiparesis, speech clear. Skin no rash Psych appropriate affect Objective Data Active Medications Acetaminophen (Acetaminophen 325 Mg Tablet) 650 mg PO Q6H PRN PRN Reason: Pain, Mild (Pain Scale 1-3) Last Admin: 10/05/23 06:20 Dose: 650 mg Documented By: MICHELLE Albuterol Sulfate (Albuterol Sulfate 90 Mcg 8 Gm Inhaler) 2 puff INHALE Q6H PRN PRN Reason: bronchospasm Albuterol/Ipratropium (Albuterol/Iprat 2.5/0.5mg 3 Ml Ampul.Neb) 3 ml INHALE TID PRN PRN Reason: shortness of breath Amlodipine Besylate (Amlodipine Besylate 5 Mg Tablet) 5 mg PO DAILY [facility]; Protocol Last Admin: 10/05/23 08:35 Dose: 5 mg Documented By: AGNES Ascorbic Acid (Ascorbic Acid 250 Mg Tablet) 250 mg PO BID [facility] Last Admin: 10/05/23 08:35 Dose: 250 mg Documented By: AGNES Atorvastatin Calcium (Atorvastatin Calcium 40 Mg Tablet) 40 mg PO BEDTIME [facility] Last Admin: 10/04/23 21:16 Dose: 40 mg Documented By: MICHELLE Benzonatate (Benzonatate 100 Mg Capsule) 100 mg PO TID PRN PRN Reason: Cough Last Admin: 09/26/23 21:42 Dose: 100 mg Documented By: LULU Docusate Sodium (Docusate Sodium 100 Mg Capsule) 100 mg PO DAILY PRN PRN Reason: Constipation Last Admin: 09/27/23 10:22 Dose: 100 mg Documented By: MAXWELL Docusate Sodium (Docusate Sodium 100 Mg Capsule) 200 mg PO DAILY [facility] Last Admin: 10/05/23 08:36 Dose: 200 mg Documented By: AGNES Ferrous Sulfate (Ferrous Sulfate 324 Mg Tablet.) 324 mg PO BIDWM [facility] Last Admin: 10/05/23 08:36 Dose: 324 mg Documented By: AGNES Folic Acid (Folic Acid 1 Mg Tablet) 1 mg PO DAILY [facility] Last Admin: 10/05/23 08:36 Dose: 1 mg Documented By: AGNES Hydromorphone HCl (Hydromorphone Hcl 0.5 Mg/0.5 Ml Syringe) 0.5 mg IVPUSH Q8H PRN; Protocol PRN Reason: Pain, Severe (Pain Scale 7-10) Last Admin: 10/05/23 08:36 Dose: 0.5 mg Documented By: AGNES Levetiracetam (Levetiracetam 500 Mg Tablet) 500 mg PO BID [facility] Last Admin: 10/05/23 08:35 Dose: 500 mg Documented By: AGNES Melatonin (Melatonin 3 Mg Tablet) 6 mg PO BEDTIME PRN PRN Reason: Insomnia Last Admin: 10/04/23 21:16 Dose: 6 mg Documented By: MICHELLE Metoprolol Tartrate (Metoprolol Tartrate 50 Mg Tablet) 50 mg PO BID [facility]; Protocol Last Admin: 10/05/23 08:36 Dose: 50 mg Documented By: AGNES Mirtazapine (Mirtazapine 30 Mg Tablet) 30 mg PO BEDTIME [facility] Last Admin: 10/04/23 21:16 Dose: 30 mg Documented By: MICHELLE Omeprazole (Omeprazole 20 Mg Capsule.) 20 mg PO DAILY@0630 [facility] Last Admin: 10/05/23 06:17 Dose: 20 mg Documented By: MICHELLE Ondansetron HCl (Ondansetron Hcl 4 Mg/2 Ml Vial) 4 mg IVPUSH Q8H PRN PRN Reason: Nausea and Vomiting Last Admin: 09/27/23 01:21 Dose: 4 mg Documented By: LULU Oxycodone HCl (Oxycodone Hcl Immed Release 5 Mg Tablet) 5 mg PO Q6H PRN PRN Reason: Pain Last Admin: 10/05/23 12:46 Dose: 5 mg Documented By: AGNES Polyethylene Glycol (Polyethylene Glycol 3350 17 Gm Powd.Pack) 17 gm PO DAILY [facility] Last Admin: 10/05/23 08:37 Dose: 17 gm Documented By: AGNES Sertraline HCl (Sertraline Hcl 25 Mg Tablet) 25 mg PO DAILY [facility] Last Admin: 10/05/23 08:35 Dose: 25 mg Documented By: AGNES Sodium Chloride (0.9 % Sodium Chloride Flush 3 Ml Syringe) 3 ml IVFLUSH QSHIFT [facility] Last Admin: 10/05/23 10:36 Dose: 3 ml Documented By: AGNES Sodium Chloride (Sodium Chloride 0.65 % Nasal 44 Ml Sprbtl) 1 spray NOSTRIL-B Q1H PRN PRN Reason: dryness Last Admin: 09/27/23 01:21 Dose: 1 spray Documented By: LULU Labs 10/05/23 11:56 10/05/23 11:57 Labs: Laboratory Results - last 24 hr 10/05/23 10/05/23 10/05/23 11:07 11:56 11:57 MCV 86.3 MCH 26.5 L MCHC 30.7 L RDW 14.3 Plt Count 535 H MPV 9.9 Absolute Nucleated RBC 0.000 Nucleated RBC % (auto) 0.0 Anion Gap 16 Estim Creat Clear Calc 59.7 Estimated GFR > 60 POC Glucose 96 Random Glucose 81 Calcium 10.2 Assessment and Plan (1) Elevated troponin: Status: Acute Plan 57-year-old female with a PMH significant for?COPD chronically on 3L NC, HTN, carotid artery stenosis s/p CVA 2015 with residual right-sided hemiparesis, seizure disorder s/p CVA, CAD, takotsubo cardiomyopathy, and MDD who presents to the ED for evaluation of right hip and leg pain after fall at home. Pt will be admitted to the hospital for treatment and further evaluation of right hip fracture. Right hip fracture s/p rt hip closed reduction, percutaneous pinning 09/25/23 PT recommend short-term rehab stool softeners. encourage oob with all meals and ambulation daily Hold Lovenox today due to an episode of hemoptysis Acute hemoptysis Had 1 episode of hemoptysis this morning, no recurrent episodes later in the day, likely related to nose bleed Chest x-ray showed persistent right opacity since July [address] chest to rule out underlying lesion H&H stable Hold aspirin and Lovenox today Recurrent nosebleed Place on humidified oxygen, nasal saline spray, hold anticoagulation today follow clinical course Acute on chronic normocytic anemia, acute blood loss post surgery /symptomatic iron studies showed low iron, likely due to poor by mouth intake s/p 1 unit of packed RBC repeat hematocrit stable continue iron supplements follow CBC and BMP. Sirs criteria resolved no source of infection found Moderate protein calorie malnutrition. BMI 15.7 supplements added. Coronary artery disease continue metoprolol 50 b.i.d. continue statin and aspirin COPD no acute exacerbation continue home inhalers and 3 L of home oxygen. Hx of CVA on aspirin and statin at baseline with right hemiparesis, ambulates with the help of cane Seizure disorder Continue keppra GERD Continue PPI Mood disorder Continue mirtazapine, sertraline Full Code DVT Prophylaxis: On Lovenox DISPO plan for STR when bed available Pt. will require continued inpatient hospitalization for management post operative care ,right hip surgery/anemia and hemoptysis. Quality Stroke Does the patient have a stroke diagnosis?: No VTE Prior VTE?: No VTE Risk Level:: Medical - moderate - high VTE Device Contraindication: N/A - Device Ordered VTE Drug Contraindication: Treatment Not Indicated
[2023-10-05 19:18] VITALS: BP 135/60; PULSE 76; RESP 14; TEMP 36.1; O2SAT 99
[2023-10-05] MEDS: Melatonin 3 MG TABLET 6 MG PO (20:55)
[2023-10-05] MEDS: Mirtazapine 30 MG TABLET PO (20:55)
[2023-10-05] MEDS: Atorvastatin Calcium 40 MG TABLET PO (20:55)
[2023-10-05 23:49] VITALS: BP 131/58; PULSE 71; RESP 18; TEMP 36.6; O2SAT 96
[2023-10-06] VITALS (7 sets, daily range): BP systolic 100–156; BP diastolic 51–85; PULSE 74–97; RESP 16–24; TEMP 36.1–37.3; O2SAT 90–99
[2023-10-06] MEDS: HYDROmorphone HCl 0.5 MG/0.5 ML SYRINGE IVPUSH ×3 (01:59→22:15)
[2023-10-06 07:00] LABS: Hematocrit 30.9 % (37.0-47.0); Hemoglobin 9.8 g/dl (12.0-16.0); Mean Corpuscular HGB Conc 31.7 g/dl (31.0-35.0); Mean Corpuscular Hemoglobin 27.1 pg (27.0-33.0); Mean Corpuscular Volume 85.6 fL (80.0-98.0); Mean Platelet Volume 10.2 fL (9.4-12.3); Platelet Count 534 X10*3/uL (160-400); Red Blood Count 3.61 X10*6/uL (4.20-5.50); Red Cell Distribution Width 14.5 % (11.0-16.0); White Blood Count 14.4 X10*3/uL (4.8-10.8)
[2023-10-06 07:07] LABS: Anion Gap 14 (12-20); Blood Urea Nitrogen 19 mg/dL (9-16); Calcium 10.1 mg/dL (8.4-10.2); Carbon Dioxide 33 mmol/L (22-29); Chloride 93 mmol/L (96-108); Creatinine Clr Calc Pharmacy 69.3; Estimated Glomerular Filt Rate > 60; Glucose Random 90 mg/dL (60-115); Potassium 4.8 mmol/L (3.3-5.1); Sodium 135 mmol/L (135-145)
[2023-10-06] MEDS: Ferrous Sulfate 324 MG TABLET.DR PO ×2 (08:14→16:32)
[2023-10-06] MEDS: Metoprolol Tartrate 50 MG TABLET PO ×2 (08:15→22:02)
[2023-10-06] MEDS: Sertraline HCL 25 MG TABLET PO (08:15)
[2023-10-06] MEDS: Ascorbic Acid 250 MG TABLET PO ×2 (08:15→22:02)
[2023-10-06] MEDS: Folic Acid 1 MG TABLET PO (08:15)
[2023-10-06] MEDS: levETIRAcetam 500 MG TABLET PO ×2 (08:15→22:02)
[2023-10-06] MEDS: amLODIPine Besylate 5 MG TABLET PO (08:15)
[2023-10-06] MEDS: Docusate Sodium 100 MG CAPSULE 200 MG PO (08:15)
[2023-10-06] MEDS: 0.9 % Sodium Chloride Flush 3 ML SYRINGE IVFLUSH ×3 (08:16→23:45)
[2023-10-06] MEDS: oxyCODONE HCl Immed Release 5 MG TABLET PO ×3 (08:18→23:45)
--- NOTE | 2023-10-06 10:17 | MHC.CM.PN ---
Per MD in [facility], Patient is no longer medically cleared for dc. PT is recommending STR and CM will continue to follow.
--- NOTE | 2023-10-06 10:30 | P.CONPL_ITS ---
History of Present Illness History of Present Illness Consult date: 10/06/23 Requesting physician: Cale Resendiz Chief complaint: Hemoptysis Narrative: 57-year-old lady with underlying COPD on 3-4 L, hypertension, CAD, prior to CT cerebral cardiomyopathy, CVA with residual right-sided hemiparesis admitted on 09/24 2023 with like pain after fall resulting in right hip fracture now status post ORIF on Lovenox and aspirin for DVT prophylaxis who over the last 2 days had several episodes of minor hemoptysis with blood clots, but not elizabeth blood, now improving after discontinuation of Lovenox and aspirin. Review of Systems 2 Constitutional: Constitutional: Denies daytime sleepiness, Denies excessive sweating, Denies fatigue, Denies fever(s), Denies lethargy, Denies malaise, Denies night sweats, Denies snoring and Denies weight loss Eyes: Eyes: Denies blurry vision and Denies itchy eyes ENT: Denies nasal congestion, Denies post nasal drip, Denies sinus pain, Denies sinus pressure and Denies other ( Thrush) Cardiovascular: Cardiovascular: Denies chest pain, Denies pedal edema, Denies dyspnea, Denies orthopnea and Denies paroxysmal nocturnal dyspnea Respiratory: Respiratory: Denies cough, Reports hemoptysis (Minor amount of blood clots), Denies excessive phlegm production, Denies dyspnea, Denies snoring and Denies wheezing Gastrointestinal: Gastrointestinal: Denies abdominal pain and Denies heartburn Integumentary/Breasts: Skin/Breast: Denies rash Neurologic: Denies memory loss and Denies seizure-like activity Psychiatric: Psychiatric: Denies abnormal sleep pattern, Denies anxiety and Denies memory loss Endocrine: Endocrine: Denies excessive sweating, Denies fatigue and Denies heat intolerance Hematologic/Lymphatic: Hematologic/Lymphatic: Denies easy bruising Allergic/Immunologic: Allergic/Immunologic: Denies itchy eyes, Denies seasonal rhinorrhea and Denies wheezing PMFSH Past Medical History Medical History COPD (chronic obstructive pulmonary disease) History of acute respiratory distress syndrome (ARDS) (~08/2021) Seizure (~11/2021) History of non-ST elevation myocardial infarction (NSTEMI) (~11/2021) History of multiple cerebrovascular accidents (CVAs) Nicotine dependence, cigarettes, uncomplicated Cocaine abuse Respiratory failure with hypoxia Normocytic anemia History of drug abuse Major depression, recurrent Oxygen dependent Takotsubo cardiomyopathy Cocaine abuse Acute CHF (congestive heart failure) Hypercapnic respiratory failure, chronic Hemiparesis affecting right side as late effect of cerebrovascular accident Asymptomatic carotid artery stenosis with infarction Chronic GERD Environmental allergies Anxiety, generalized Lipid disorder Asthma, moderate Family History Family History Father Substance abuse Mother Brain cancer Maternal Grandfather History of heart attack Maternal Grandmother History of heart attack Paternal Grandfather No problems noted. Paternal Grandmother No problems noted. Brother No problems noted. Brother No problems noted. Son No problems noted. Daughter No problems noted. Other Mental health disorder Surgical History Surgical History History of left-sided carotid endarterectomy (~09/2012) History of tonsillectomy and adenoidectomy Social History Social History Household Members: Children [facility] Do you presently have visiting nurse or other home services: No Unable to assess alcohol history related to: Refusing to respond Alcohol intake: former Patient Tobacco Use Status: Former Tobacco user Tobacco use type: Cigarette Cigarettes Per Day: 2 Years Smoked: COUPLE YEAR AGO PER PT e-Cigarette/Vaping Use: Never Used Second Hand Smoke Exposure: No Advance Directives Date on File: 11/25/21 service: No Current occupational status: disabled Cognitive needs: No Hearing needs: No Vision needs: No Meds Allergies Allergy/AdvReac Type Severity Reaction Status Date / Time crab Allergy Unknown Hives Verified 06/24/23 11:02 penicillin V Allergy Unknown hives Verified 06/24/23 11:02 Penicillins [PENICILLINS] Allergy Unknown hives Verified 06/24/23 11:02 SEASONAL ALLERGIES Allergy Mild RUNNY NOSE Uncoded 03/17/23 01:46 Active Medications: Current Medications Acetaminophen (Acetaminophen 325 Mg Tablet) 650 mg PO Q6H PRN PRN Reason: Pain, Mild (Pain Scale 1-3) Last Admin: 10/05/23 06:20 Dose: 650 mg Albuterol Sulfate (Albuterol Sulfate 90 Mcg 8 Gm Inhaler) 2 puff INHALE Q6H PRN PRN Reason: bronchospasm Albuterol/Ipratropium (Albuterol/Iprat 2.5/0.5mg 3 Ml Ampul.Neb) 3 ml INHALE TID PRN PRN Reason: shortness of breath Amlodipine Besylate (Amlodipine Besylate 5 Mg Tablet) 5 mg PO DAILY [facility]; Protocol Last Admin: 10/06/23 08:15 Dose: 5 mg Ascorbic Acid (Ascorbic Acid 250 Mg Tablet) 250 mg PO BID [facility] Last Admin: 10/06/23 08:15 Dose: 250 mg Atorvastatin Calcium (Atorvastatin Calcium 40 Mg Tablet) 40 mg PO BEDTIME [facility] Last Admin: 10/05/23 20:55 Dose: 40 mg Benzonatate (Benzonatate 100 Mg Capsule) 100 mg PO TID PRN PRN Reason: Cough Last Admin: 09/26/23 21:42 Dose: 100 mg Docusate Sodium (Docusate Sodium 100 Mg Capsule) 100 mg PO DAILY PRN PRN Reason: Constipation Last Admin: 09/27/23 10:22 Dose: 100 mg Docusate Sodium (Docusate Sodium 100 Mg Capsule) 200 mg PO DAILY [facility] Last Admin: 10/06/23 08:15 Dose: 200 mg Ferrous Sulfate (Ferrous Sulfate 324 Mg Tablet.Dr) 324 mg PO BIDWM [facility] Last Admin: 10/06/23 08:14 Dose: 324 mg Folic Acid (Folic Acid 1 Mg Tablet) 1 mg PO DAILY [facility] Last Admin: 10/06/23 08:15 Dose: 1 mg Hydromorphone HCl (Hydromorphone Hcl 0.5 Mg/0.5 Ml Syringe) 0.5 mg IVPUSH Q8H PRN; Protocol PRN Reason: Pain, Severe (Pain Scale 7-10) Last Admin: 10/06/23 10:17 Dose: 0.5 mg Levetiracetam (Levetiracetam 500 Mg Tablet) 500 mg PO BID [facility] Last Admin: 10/06/23 08:15 Dose: 500 mg Melatonin (Melatonin 3 Mg Tablet) 6 mg PO BEDTIME PRN PRN Reason: Insomnia Last Admin: 10/05/23 20:55 Dose: 6 mg Metoprolol Tartrate (Metoprolol Tartrate 50 Mg Tablet) 50 mg PO BID [facility]; Protocol Last Admin: 10/06/23 08:15 Dose: 50 mg Mirtazapine (Mirtazapine 30 Mg Tablet) 30 mg PO BEDTIME [facility] Last Admin: 10/05/23 20:55 Dose: 30 mg Omeprazole (Omeprazole 20 Mg Capsule.Dr) 20 mg PO DAILY@0630 [facility] Last Admin: 10/06/23 05:51 Dose: Not Given Ondansetron HCl (Ondansetron Hcl 4 Mg/2 Ml Vial) 4 mg IVPUSH Q8H PRN PRN Reason: Nausea and Vomiting Last Admin: 09/27/23 01:21 Dose: 4 mg Oxycodone HCl (Oxycodone Hcl Immed Release 5 Mg Tablet) 5 mg PO Q6H PRN PRN Reason: Pain Last Admin: 10/06/23 08:18 Dose: 5 mg Polyethylene Glycol (Polyethylene Glycol 3350 17 Gm Powd.Pack) 17 gm PO DAILY [facility] Last Admin: 10/06/23 08:15 Dose: Not Given Sertraline HCl (Sertraline Hcl 25 Mg Tablet) 25 mg PO DAILY [facility] Last Admin: 10/06/23 08:15 Dose: 25 mg Sodium Chloride (0.9 % Sodium Chloride Flush 3 Ml Syringe) 3 ml IVFLUSH QSHIFT [facility] Last Admin: 10/06/23 08:16 Dose: 3 ml Sodium Chloride (Sodium Chloride 0.65 % Nasal 44 Ml Sprbtl) 1 spray NOSTRIL-B Q1H PRN PRN Reason: dryness Last Admin: 09/27/23 01:21 Dose: 1 spray Physical Exam 2 Vital Signs: Vital Signs: Last Vital Signs Temp 97.7 F 10/06/23 07:11 Pulse 83 10/06/23 07:11 Resp 18 10/06/23 07:11 BP 116/51 L 10/06/23 07:11 Pulse Ox 95 10/06/23 07:11 O2 Del Method Nasal Cannula 10/06/23 07:11 O2 Flow Rate 3 10/06/23 07:11 Oxygen Flow Rate 3 09/25/23 14:49 BMI result Body Mass Index 16.7 Const: General: no acute distress and alert Nutritional Appearance: m alnourished Orientation/consciousness: Other orientation findings ( oriented) HEENT: Head: Yes atraumatic Eyes: General: appearance normal, both eyes and all related structures S clerae: sclerae normal EOM: EOMs intact bilaterally Neck: Neck: Yes supple Lymphatic: no lymphadenopathy noted Resp: Effort & Inspection: normal respiratory effort and no use of accessory muscles Auscultation: clear to auscultation bilaterally Cardio: Rate: regular rate Rhythm: regular rhythm Heart sounds: no gallops, no murmurs and no rubs Skin: General skin exam: other ( warm) Extrem: General: No clubbing, No cyanosis and No edema Results Laboratory Findings 10/06/23 05:56 10/06/23 05:56 ABG, PT/INR, D-dimer: PT/INR, D-dimer PT 12.4 SEC (11.1-13.3) 09/24/23 04:55 INR 1.0 (0.9-1.1) 09/24/23 04:55 Abnormal lab findings: Abnormal Labs 09/24/23 09/24/23 09/24/23 04:55 06:17 06:19 WBC 14.7 H RBC 3.86 L Hgb 10.0 L Hct 32.7 L MCH 25.9 L MCHC 30.6 L Plt Count Neut % (Auto) 88.9 H Lymph % (Auto) 6.3 L Lymph # (Auto) 0.9 L Abs Immat Gran (auto) 0.06 H Absolute Neuts (auto) 13.1 H VBG pH 7.46 H VBG HCO3 31 H Sodium Chloride Carbon Dioxide Anion Gap BUN 8 L Random Glucose 120 H Calcium Iron TIBC % Saturation Troponin I High Sens 70.1 H* D Urine Fentanyl Screen Crossmatch 09/24/23 09/24/23 09/25/23 06:47 08:41 05:41 WBC 11.3 H RBC 3.80 L Hgb 9.7 L Hct 31.9 L MCH 25.5 L MCHC 30.4 L Plt Count Neut % (Auto) Lymph % (Auto) Lymph # (Auto) Abs Immat Gran (auto) Absolute Neuts (auto) VBG pH VBG HCO3 Sodium Chloride Carbon Dioxide Anion Gap BUN Random Glucose Calcium Iron TIBC % Saturation Troponin I High Sens 60.3 H* Urine Fentanyl Screen POSITIVE H Crossmatch 09/26/23 09/27/23 09/28/23 05:17 06:27 06:45 WBC 11.3 H RBC 3.18 L 3.06 L 3.27 L Hgb 8.2 L 7.8 L 8.4 L Hct 27.2 L 26.1 L 27.8 L MCH 25.8 L 25.5 L 25.7 L MCHC 30.1 L 29.9 L 30.2 L Plt Count Neut % (Auto) Lymph % (Auto) Lymph # (Auto) Abs Immat Gran (auto) Absolute Neuts (auto) VBG pH VBG HCO3 Sodium Chloride 93 L 91 L Carbon Dioxide 37 H 38 H Anion Gap 11 L BUN 18 H Random Glucose 133 H 130 H Calcium Iron 11 L TIBC 201 L % Saturation 5 L Troponin I High Sens Urine Fentanyl Screen Crossmatch 09/28/23 09/29/23 10/04/23 11:40 06:56 08:43 WBC 13.5 H 11.6 H RBC 3.85 L Hgb 10.6 L D 11.6 L Hct 33.7 L D MCH MCHC 30.8 L Plt Count 528 H D Neut % (Auto) Lymph % (Auto) Lymph # (Auto) Abs Immat Gran (auto) Absolute Neuts (auto) VBG pH VBG HCO3 Sodium Chloride 89 L Carbon Dioxide 36 H Anion Gap BUN Random Glucose Calcium 10.4 H D Iron TIBC % Saturation Troponin I High Sens Urine Fentanyl Screen Crossmatch See Detail 10/05/23 10/05/23 10/06/23 11:56 11:57 05:56 WBC 12.7 H 14.4 H RBC 4.15 L 3.61 L Hgb 11.0 L 9.8 L Hct 35.8 L 30.9 L MCH 26.5 L MCHC 30.7 L Plt Count 535 H 534 H Neut % (Auto) Lymph % (Auto) Lymph # (Auto) Abs Immat Gran (auto) Absolute Neuts (auto) VBG pH VBG HCO3 Sodium 131 L Chloride 94 L 93 L Carbon Dioxide 33 H Anion Gap BUN 17 H 19 H Random Glucose Calcium Iron TIBC % Saturation Troponin I High Sens Urine Fentanyl Screen Crossmatch Microbiology: Microbiology 09/24/23 06:17 Blood - Venous Blood Culture - Final No growth after 5 days. 09/24/23 06:17 Blood - Venous Blood Culture - Final No growth after 5 days. Assessment and Plan (1) COPD (chronic obstructive pulmonary disease): Qualifiers: COPD type: emphysema Emphysema type: panlobular Qualified Code(s): J 43.1 - Panlobular emphysema Status: Acute (2) Oxygen dependent: Status: Acute (3) Hemoptysis: Status: Acute Plan Impression: 57-year-old lady with development of minor hemoptysis on the background of severe oxygen-dependent COPD and aspirin/Lovenox utilization for DVT prophylaxis, now improving off Lovenox/aspirin. Recommendations: Agree with CT contrast study to evaluate for pulmonary malformation. Symptoms improving. Suggest holding aspirin and Lovenox for minimum of 48 hours. Procedures Date of Service Date of Service: 10/06/23
[2023-10-06] MEDS: iohexoL 350 MG/ML 100 ML INFUS..BTL IV (14:08)
--- NOTE | 2023-10-06 14:20 | HO.PM.IMPN ---
Subjective Subjective Date of Service: 10/06/23 Interval History: Feeling better this morning good pain control, no recurrent episode of epistaxis or hemoptysis, denies chest pain, no shortness of breath, no lightheadedness, no dizziness tolerating diet with no nausea no vomiting or abdominal pain. Review of Systems All other system reviewed and negative. Physical Exam Vital Signs: Vital Signs: Last Vital Signs Temp 99.2 F 10/06/23 10:55 Pulse 74 10/06/23 10:55 Resp 18 10/06/23 10:55 BP 100/57 L 10/06/23 10:55 Pulse Ox 95 10/06/23 10:55 O2 Del Method Nasal Cannula 10/06/23 10:55 O2 Flow Rate 3 10/06/23 10:55 Oxygen Flow Rate 3 09/25/23 14:49 BMI result Body Mass Index 16.7 Const: Other: General awake alert x3, in no acute distress. Anicteric sclera Neck supple ,no JVD. CVS regular rate rhythm, Respiratory lungs clear to auscultation, no respiratory distress. Gastrointestinal abdomen soft, non tender, bowel sounds audible, no guarding , no rigidity. Extremities no edema. Neuro right hand contraction deformity ,rt hemiparesis, speech clear. Skin no rash Psych appropriate affect Objective Data Active Medications Acetaminophen (Acetaminophen 325 Mg Tablet) 650 mg PO Q6H PRN PRN Reason: Pain, Mild (Pain Scale 1-3) Last Admin: 10/05/23 06:20 Dose: 650 mg Documented By: MICHELLE Albuterol Sulfate (Albuterol Sulfate 90 Mcg 8 Gm Inhaler) 2 puff INHALE Q6H PRN PRN Reason: bronchospasm Albuterol/Ipratropium (Albuterol/Iprat 2.5/0.5mg 3 Ml Ampul.Neb) 3 ml INHALE TID PRN PRN Reason: shortness of breath Amlodipine Besylate (Amlodipine Besylate 5 Mg Tablet) 5 mg PO DAILY [facility]; Protocol Last Admin: 10/06/23 08:15 Dose: 5 mg Documented By: FELA Ascorbic Acid (Ascorbic Acid 250 Mg Tablet) 250 mg PO BID [facility] Last Admin: 10/06/23 08:15 Dose: 250 mg Documented By: FELA Atorvastatin Calcium (Atorvastatin Calcium 40 Mg Tablet) 40 mg PO BEDTIME [facility] Last Admin: 10/05/23 20:55 Dose: 40 mg Documented By: MOIRA Benzonatate (Benzonatate 100 Mg Capsule) 100 mg PO TID PRN PRN Reason: Cough Last Admin: 09/26/23 21:42 Dose: 100 mg Documented By: LULU Docusate Sodium (Docusate Sodium 100 Mg Capsule) 100 mg PO DAILY PRN PRN Reason: Constipation Last Admin: 09/27/23 10:22 Dose: 100 mg Documented By: MAXWELL Docusate Sodium (Docusate Sodium 100 Mg Capsule) 200 mg PO DAILY [facility] Last Admin: 10/06/23 08:15 Dose: 200 mg Documented By: FELA Ferrous Sulfate (Ferrous Sulfate 324 Mg Tablet.Dr) 324 mg PO BIDWM [facility] Last Admin: 10/06/23 08:14 Dose: 324 mg Documented By: FELA Folic Acid (Folic Acid 1 Mg Tablet) 1 mg PO DAILY [facility] Last Admin: 10/06/23 08:15 Dose: 1 mg Documented By: FELA Hydromorphone HCl (Hydromorphone Hcl 0.5 Mg/0.5 Ml Syringe) 0.5 mg IVPUSH Q8H PRN; Protocol PRN Reason: Pain, Severe (Pain Scale 7-10) Last Admin: 10/06/23 10:17 Dose: 0.5 mg Documented By: FELA Iohexol (Iohexol 350 Mg/Ml 100 Ml Infus..Btl) 100 ml IV ONCE ONE Stop: 10/06/23 14:09 Last Admin: 10/06/23 14:08 Dose: 65 ml Documented By: ELENA Levetiracetam (Levetiracetam 500 Mg Tablet) 500 mg PO BID [facility] Last Admin: 10/06/23 08:15 Dose: 500 mg Documented By: FELA Melatonin (Melatonin 3 Mg Tablet) 6 mg PO BEDTIME PRN PRN Reason: Insomnia Last Admin: 10/05/23 20:55 Dose: 6 mg Documented By: MOIRA Metoprolol Tartrate (Metoprolol Tartrate 50 Mg Tablet) 50 mg PO BID [facility]; Protocol Last Admin: 10/06/23 08:15 Dose: 50 mg Documented By: FELA Mirtazapine (Mirtazapine 30 Mg Tablet) 30 mg PO BEDTIME [facility] Last Admin: 10/05/23 20:55 Dose: 30 mg Documented By: MOIRA Omeprazole (Omeprazole 20 Mg Capsule.Dr) 20 mg PO DAILY@0630 [facility] Last Admin: 10/06/23 05:51 Dose: Not Given Documented By: MOIRA Non-Admin Reason: Patient Refused Ondansetron HCl (Ondansetron Hcl 4 Mg/2 Ml Vial) 4 mg IVPUSH Q8H PRN PRN Reason: Nausea and Vomiting Last Admin: 09/27/23 01:21 Dose: 4 mg Documented By: LULU Oxycodone HCl (Oxycodone Hcl Immed Release 5 Mg Tablet) 5 mg PO Q6H PRN PRN Reason: Pain Last Admin: 10/06/23 08:18 Dose: 5 mg Documented By: FELA Polyethylene Glycol (Polyethylene Glycol 3350 17 Gm Powd.Pack) 17 gm PO DAILY [facility] Last Admin: 10/06/23 08:15 Dose: Not Given Documented By: FELA Non-Admin Reason: Patient Refused Sertraline HCl (Sertraline Hcl 25 Mg Tablet) 25 mg PO DAILY [facility] Last Admin: 10/06/23 08:15 Dose: 25 mg Documented By: FELA Sodium Chloride (0.9 % Sodium Chloride Flush 3 Ml Syringe) 3 ml IVFLUSH QSHIFT [facility] Last Admin: 10/06/23 08:16 Dose: 3 ml Documented By: FELA Sodium Chloride (Sodium Chloride 0.65 % Nasal 44 Ml Sprbtl) 1 spray NOSTRIL-B Q1H PRN PRN Reason: dryness Last Admin: 09/27/23 01:21 Dose: 1 spray Documented By: LULU Labs 10/06/23 05:56 10/06/23 05:56 Labs: Laboratory Results - last 24 hr 10/06/23 05:56 MCV 85.6 MCH 27.1 MCHC 31.7 RDW 14.5 Plt Count 534 H MPV 10.2 Absolute Nucleated RBC 0.000 Nucleated RBC % (auto) 0.0 Anion Gap 14 Estim Creat Clear Calc 69.3 Estimated GFR > 60 Random Glucose 90 Calcium 10.1 Assessment and Plan (1) Elevated troponin: Status: Acute Plan 57-year-old female with a PMH significant for?COPD chronically on 3L NC, HTN, carotid artery stenosis s/p CVA 2016 with residual right-sided hemiparesis, seizure disorder s/p CVA, CAD, takotsubo cardiomyopathy, and MDD who presents to the ED for evaluation of right hip and leg pain after fall at home. Pt will be admitted to the hospital for treatment and further evaluation of right hip fracture. Right hip fracture s/p rt hip closed reduction, percutaneous pinning 09/25/23 PT recommend short-term rehab Good pain control, stool softeners. encourage oob with all meals and ambulation daily Hold Lovenox due to an episode of hemoptysis Acute hemoptysis Had 1 episode of hemoptysis on 10/05 , no recurrent episodes since yesterday,likely related to nose bleed Chest x-ray showed persistent right opacity since July 2023, therefore CT chest obtain to rule out underlying lesion report pending Repeat H&H dropped but stable and close to baseline Obtain Pulmonary consult they agree with CT scan of chest and recommend to hold aspirin and Lovenox for 48 hours Follow CBC Recurrent nosebleed continue nasal saline spray no recurrent bleed since yesterday after holding anticoagulation and aspirin Acute on chronic normocytic anemia, acute blood loss post surgery iron studies showed low iron, likely due to poor by mouth intake s/p 1 unit of packed RBC repeat hematocrit stable continue iron supplements follow CBC and BMP. Sirs criteria resolved no source of infection found Moderate protein calorie malnutrition. BMI 15.7 supplements added. Coronary artery disease continue metoprolol 50 b.i.d.,norvasc ,continue statin and aspirin COPD no acute exacerbation continue home inhalers and 3 L of home oxygen. Hx of CVA on aspirin and statin at baseline with right hemiparesis, ambulates with the help of cane Seizure disorder Continue keppra GERD Continue PPI Mood disorder Continue mirtazapine, sertraline Full Code DVT Prophylaxis: Compression boots DISPO plan for STR when bed available Pt. will require continued inpatient hospitalization for management post operative care ,right hip surgery/anemia and hemoptysis. Quality Stroke Does the patient have a stroke diagnosis?: No VTE Prior VTE?: No VTE Risk Level:: Medical - moderate - high VTE Device Contraindication: N/A - Device Ordered VTE Drug Contraindication: Treatment Not Indicated
[2023-10-06] MEDS: Acetaminophen 325 MG TABLET 650 MG PO ×2 (15:07→22:03)
[2023-10-06] MEDS: Atorvastatin Calcium 40 MG TABLET PO (22:02)
[2023-10-06] MEDS: Mirtazapine 30 MG TABLET PO (22:02)
[2023-10-06] MEDS: Melatonin 3 MG TABLET 6 MG PO (22:02)
[2023-10-06] MEDS: Albuterol/Iprat 2.5/0.5MG 3 ML AMPUL.NEB INHALE (22:26)
[2023-10-07] VITALS (7 sets, daily range): BP systolic 131–155; BP diastolic 62–67; PULSE 66–90; RESP 18–20; TEMP 36–36.8; O2SAT 95–100
[2023-10-07] MEDS: Omeprazole 20 MG CAPSULE.DR PO (05:39)
[2023-10-07] MEDS: HYDROmorphone HCl 0.5 MG/0.5 ML SYRINGE IVPUSH ×3 (06:33→23:51)
[2023-10-07 06:54] LABS: Hematocrit 31.1 % (37.0-47.0); Hemoglobin 9.6 g/dl (12.0-16.0); Mean Corpuscular HGB Conc 30.9 g/dl (31.0-35.0); Mean Corpuscular Hemoglobin 26.3 pg (27.0-33.0); Mean Corpuscular Volume 85.2 fL (80.0-98.0); Mean Platelet Volume 9.6 fL (9.4-12.3); Platelet Count 513 X10*3/uL (160-400); Red Blood Count 3.65 X10*6/uL (4.20-5.50); Red Cell Distribution Width 14.5 % (11.0-16.0); White Blood Count 10.1 X10*3/uL (4.8-10.8)
[2023-10-07] MEDS: levETIRAcetam 500 MG TABLET PO ×2 (08:09→20:36)
[2023-10-07] MEDS: Ferrous Sulfate 324 MG TABLET.DR PO ×2 (08:09→16:01)
[2023-10-07] MEDS: Ascorbic Acid 250 MG TABLET PO ×2 (08:09→20:37)
[2023-10-07] MEDS: Docusate Sodium 100 MG CAPSULE 200 MG PO (08:10)
[2023-10-07] MEDS: 0.9 % Sodium Chloride Flush 3 ML SYRINGE IVFLUSH ×3 (08:10→20:40)
[2023-10-07] MEDS: amLODIPine Besylate 5 MG TABLET PO (08:10)
[2023-10-07] MEDS: Metoprolol Tartrate 50 MG TABLET PO ×2 (08:10→20:35)
[2023-10-07] MEDS: polyethylene glycoL 3350 17 GM POWD.PACK PO (08:10)
[2023-10-07] MEDS: Folic Acid 1 MG TABLET PO (08:10)
[2023-10-07] MEDS: Sertraline HCL 25 MG TABLET PO (08:10)
--- NOTE | 2023-10-07 09:29 | MHC.CM.PN ---
Per MD yesterday in [facility], Patient is now NOT medically cleared for dc. Referral to [facility] SNF continues to be undated. CM will follow.
--- NOTE | 2023-10-07 11:37 | MHC.CLN ---
F/U PO INTAKE REMAINS 75-100% DIET RX: REGULAR-APPROPRIATE PT RECEIVING MAGIC CUP TID TO INCREASE KCALS SUPPLEMENT PROVIDES 810KCALS, 27G PROTEIN CONTINUE TO MONITOR PO INTAKE AND ENCOURAGE SUPPLEMENTS
[2023-10-07] MEDS: oxyCODONE HCl Immed Release 5 MG TABLET PO ×2 (11:55→20:35)
--- NOTE | 2023-10-07 12:22 | P.PNIM_ITS ---
Subjective Subjective Date of Service: 10/07/23 Interval History: Resting comfortably, good pain control, no recurrent nose bleeds, no hemoptysis, no fevers, no chills, oxygenation 99% on 2 L of nasal cannula, no acute issues overnight. Review of Systems All other system reviewed and negative. Physical Exam 2 Vital Signs: Vital Signs: Last Vital Signs Temp 98.2 F 10/07/23 11: Pulse 79 10/07/23 11: Resp 18 10/07/23 11: BP 131/63 10/07/23 11: Pulse Ox 98 10/07/23 11:26 O2 Del Method Nasal Cannula 10/07/23 11:26 O2 Flow Rate 4 10/07/23 11: Oxygen Flow Rate 3 09/25/23 14:49 BMI result Body Mass Index 16.7 Const: Other: General awake alert x3, in no acute distress. Anicteric sclera Neck supple ,no JVD. CVS regular rate rhythm, Respiratory lungs clear to auscultation, no respiratory distress. Gastrointestinal abdomen soft, non tender, bowel sounds audible, no guarding , no rigidity. Extremities no edema. Neuro right hand contraction deformity ,rt hemiparesis, speech clear. Skin no rash Psych appropriate affect Objective Data Active Medications Acetaminophen (Acetaminophen 325 Mg Tablet) 650 mg PO Q6H PRN PRN Reason: Pain, Mild (Pain Scale 1-3) Last Admin: 10/06/23 22:03 Dose: 650 mg Documented By: LULU Albuterol Sulfate (Albuterol Sulfate 90 Mcg 8 Gm Inhaler) 2 puff INHALE Q6H PRN PRN Reason: bronchospasm Albuterol/Ipratropium (Albuterol/Iprat 2.5/0.5mg 3 Ml Ampul.Neb) 3 ml INHALE TID PRN PRN Reason: shortness of breath Last Admin: 10/06/23 22:26 Dose: 3 ml Documented By: PARISH Amlodipine Besylate (Amlodipine Besylate 5 Mg Tablet) 5 mg PO DAILY [facility]; Protocol Last Admin: 10/07/23 08:10 Dose: 5 mg Documented By: FELA Ascorbic Acid (Ascorbic Acid 250 Mg Tablet) 250 mg PO BID [facility] Last Admin: 10/07/23 08:09 Dose: 250 mg Documented By: FELA Atorvastatin Calcium (Atorvastatin Calcium 40 Mg Tablet) 40 mg PO BEDTIME [facility] Last Admin: 10/06/23 22:02 Dose: 40 mg Documented By: LULU Benzonatate (Benzonatate 100 Mg Capsule) 100 mg PO TID PRN PRN Reason: Cough Last Admin: 09/26/23 21:42 Dose: 100 mg Documented By: LULU Docusate Sodium (Docusate Sodium 100 Mg Capsule) 100 mg PO DAILY PRN PRN Reason: Constipation Last Admin: 09/27/23 10:22 Dose: 100 mg Documented By: MAXWELL Docusate Sodium (Docusate Sodium 100 Mg Capsule) 200 mg PO DAILY [facility] Last Admin: 10/07/23 08:10 Dose: 200 mg Documented By: FELA Ferrous Sulfate (Ferrous Sulfate 324 Mg Tablet.Dr) 324 mg PO BIDWM [facility] Last Admin: 10/07/23 08:09 Dose: 324 mg Documented By: FELA Folic Acid (Folic Acid 1 Mg Tablet) 1 mg PO DAILY [facility] Last Admin: 10/07/23 08:10 Dose: 1 mg Documented By: FELA Hydromorphone HCl (Hydromorphone Hcl 0.5 Mg/0.5 Ml Syringe) 0.5 mg IVPUSH Q8H PRN; Protocol PRN Reason: Pain, Severe (Pain Scale 7-10) Last Admin: 10/07/23 06:33 Dose: 0.5 mg Documented By: LULU Levetiracetam (Levetiracetam 500 Mg Tablet) 500 mg PO BID [facility] Last Admin: 10/07/23 08:09 Dose: 500 mg Documented By: FELA Melatonin (Melatonin 3 Mg Tablet) 6 mg PO BEDTIME PRN PRN Reason: Insomnia Last Admin: 10/06/23 22:02 Dose: 6 mg Documented By: LULU Metoprolol Tartrate (Metoprolol Tartrate 50 Mg Tablet) 50 mg PO BID [facility]; Protocol Last Admin: 10/07/23 08:10 Dose: 50 mg Documented By: FELA Mirtazapine (Mirtazapine 30 Mg Tablet) 30 mg PO BEDTIME [facility] Last Admin: 10/06/23 22:02 Dose: 30 mg Documented By: LULU Omeprazole (Omeprazole 20 Mg Capsule.) 20 mg PO DAILY@0630 [facility] Last Admin: 10/07/23 05:39 Dose: 20 mg Documented By: LULU Ondansetron HCl (Ondansetron Hcl 4 Mg/2 Ml Vial) 4 mg IVPUSH Q8H PRN PRN Reason: Nausea and Vomiting Last Admin: 09/27/23 01:21 Dose: 4 mg Documented By: LULU Oxycodone HCl (Oxycodone Hcl Immed Release 5 Mg Tablet) 5 mg PO Q6H PRN PRN Reason: Pain Last Admin: 10/07/23 11:55 Dose: 5 mg Documented By: FELA Polyethylene Glycol (Polyethylene Glycol 3350 17 Gm Powd.Pack) 17 gm PO DAILY [facility] Last Admin: 10/07/23 08:10 Dose: 17 gm Documented By: FELA Sertraline HCl (Sertraline Hcl 25 Mg Tablet) 25 mg PO DAILY [facility] Last Admin: 10/07/23 08:10 Dose: 25 mg Documented By: FELA Sodium Chloride (0.9 % Sodium Chloride Flush 3 Ml Syringe) 3 ml IVFLUSH QSHIFT [facility] Last Admin: 10/07/23 08:10 Dose: 3 ml Documented By: FELA Sodium Chloride (Sodium Chloride 0.65 % Nasal 44 Ml Sprbtl) 1 spray NOSTRIL-B Q1H PRN PRN Reason: dryness Last Admin: 09/27/23 01:21 Dose: 1 spray Documented By: LULU Labs 10/07/23 06:10 10/06/23 05:56 Labs: Laboratory Results - last 24 hr 10/07/23 06:10 MCV 85.2 MCH 26.3 L MCHC 30.9 L RDW 14.5 Plt Count 513 H MPV 9.6 Absolute Nucleated RBC 0.000 Nucleated RBC % (auto) 0.0 Assessment and Plan (1) Elevated troponin: Status: Acute Plan 57-year-old female with a PMH significant for?COPD chronically on 3L NC, HTN, carotid artery stenosis s/p CVA 2016 with residual right-sided hemiparesis, seizure disorder s/p CVA, CAD, takotsubo cardiomyopathy, and MDD who presents to the ED for evaluation of right hip and leg pain after fall at home. Pt will be admitted to the hospital for treatment and further evaluation of right hip fracture. Right hip fracture s/p rt hip closed reduction, percutaneous pinning 09/25/23 PT recommend short-term rehab Good pain control,cont. stool softeners/encourage incentive spirometry. encourage oob with all meals and ambulation daily Resume Lovenox was held for 48 hours due to hemoptysis Acute hemoptysis Had 1 episode of hemoptysis on 10/05 , no recurrent episodes since ,likely related to nose bleed Chest x-ray showed persistent right opacity since July 2023, CT chest showed right lower lobe opacity nonspecific question infectious or inflammatory process, however neoplastic process is not excluded, few pulmonary nodular densities largest 9 mm and showed emphysema. Will recommend repeat CT in 3-6 months and will discuss with pulmonology regarding further workup for right lower lobe opacity. Repeat H&H stable and close to baseline since no further hemoptysis and epistaxis, will resume Lovenox and aspirin today . Follow CBC nosebleed stopped continue nasal saline spray no recurrent bleed since after holding anticoagulation and aspirin Acute on chronic normocytic anemia, acute blood loss post surgery iron studies showed low iron, likely due to poor by mouth intake s/p 1 unit of packed RBC repeat hematocrit stable continue iron supplements follow CBC and BMP. Sirs criteria resolved no source of infection found Moderate protein calorie malnutrition. BMI 15.7 supplements added. Coronary artery disease continue metoprolol 50 b.i.d.,norvasc ,continue statin. COPD no acute exacerbation continue home inhalers and 3 L of home oxygen. Hx of CVA on aspirin and statin at baseline with right hemiparesis, ambulates with the help of cane Seizure disorder Continue keppra GERD Continue PPI Mood disorder Continue mirtazapine, sertraline Full Code DVT Prophylaxis: lovenox DISPO plan for STR when bed available Pt. will require continued inpatient hospitalization for management post operative care ,right hip surgery/anemia and hemoptysis and safe disposition.. Quality Stroke Does the patient have a stroke diagnosis?: No VTE Prior VTE?: No VTE Risk Level:: Medical - moderate - high VTE Device Contraindication: N/A - Device Ordered VTE Drug Contraindication: Treatment Not Indicated
[2023-10-07] MEDS: Enoxaparin Sodium 40 MG/0.4 ML SYRINGE SUBCUT (16:01)
[2023-10-07] MEDS: Acetaminophen 325 MG TABLET 650 MG PO (20:37)
[2023-10-07] MEDS: Melatonin 3 MG TABLET 6 MG PO (20:38)
[2023-10-07] MEDS: Atorvastatin Calcium 40 MG TABLET PO (20:44)
[2023-10-07] MEDS: Mirtazapine 30 MG TABLET PO (20:44)
[2023-10-08 04:00] VITALS: BP 127/59; PULSE 67; RESP 18; TEMP 36.4; O2SAT 100
[2023-10-08] MEDS: Omeprazole 20 MG CAPSULE.DR PO (05:37)
[2023-10-08] MEDS: oxyCODONE HCl Immed Release 5 MG TABLET PO ×3 (05:37→20:49)
[2023-10-08 07:24] VITALS: BP 139/64; PULSE 67; RESP 20; TEMP 36.5; O2SAT 100
[2023-10-08] MEDS: Folic Acid 1 MG TABLET PO (09:20)
[2023-10-08] MEDS: amLODIPine Besylate 5 MG TABLET PO (09:20)
[2023-10-08] MEDS: Ascorbic Acid 250 MG TABLET PO ×2 (09:20→20:49)
[2023-10-08] MEDS: Metoprolol Tartrate 50 MG TABLET PO ×2 (09:20→20:50)
[2023-10-08] MEDS: Sertraline HCL 25 MG TABLET PO (09:20)
[2023-10-08] MEDS: Ferrous Sulfate 324 MG TABLET.DR PO ×2 (09:20→16:04)
[2023-10-08] MEDS: Docusate Sodium 100 MG CAPSULE 200 MG PO (09:20)
[2023-10-08] MEDS: HYDROmorphone HCl 0.5 MG/0.5 ML SYRINGE IVPUSH (09:20)
[2023-10-08] MEDS: polyethylene glycoL 3350 17 GM POWD.PACK PO (09:20)
[2023-10-08] MEDS: levETIRAcetam 500 MG TABLET PO ×2 (09:20→20:50)
[2023-10-08 11:05] VITALS: BP 151/67; PULSE 72; RESP 20; TEMP 36.6; O2SAT 97
--- NOTE | 2023-10-08 11:06 | HO.PM.IMPN ---
Subjective Subjective Date of Service: 10/08/23 Interval History: Noted to have mild nosebleed this morning started back on Lovenox yesterday, no hemoptysis, denies shortness of breath, no cough tried to wean oxygen but patient oxygenation dropped to 70s therefore placed back on 2 L oxygenation 96 - 97% will place back on 1 L of oxygen. Tolerating diet no nausea no vomiting no abdominal pain, no diarrhea no hematemesis or melena. Review of Systems All other system reviewed and negative. Physical Exam Vital Signs: Vital Signs: Last Vital Signs Temp 97.7 F 10/08/23 07:24 Pulse 67 10/08/23 07:24 Resp 20 10/08/23 07:24 BP 139/64 10/08/23 07:24 Pulse Ox 100 10/08/23 07:24 O2 Del Method Nasal Cannula 10/08/23 07:24 O2 Flow Rate 3 10/08/23 07:24 Oxygen Flow Rate 3 09/25/23 14:49 BMI result Body Mass Index 16.7 Const: Other: General awake alert x3, in no acute distress. Anicteric sclera Neck supple ,no JVD. CVS regular rate rhythm, Respiratory lungs clear to auscultation, no respiratory distress. Gastrointestinal abdomen soft, non tender, bowel sounds audible, no guarding , no rigidity. Extremities no edema. Neuro right hand contraction deformity ,rt hemiparesis, speech clear. Skin no rash Psych appropriate affect Objective Data Active Medications Acetaminophen (Acetaminophen 325 Mg Tablet) 650 mg PO Q6H PRN PRN Reason: Pain, Mild (Pain Scale 1-3) Last Admin: 10/07/23 20:37 Dose: 650 mg Documented By: MARY KAY Albuterol Sulfate (Albuterol Sulfate 90 Mcg 8 Gm Inhaler) 2 puff INHALE Q6H PRN PRN Reason: bronchospasm Albuterol/Ipratropium (Albuterol/Iprat 2.5/0.5mg 3 Ml Ampul.Neb) 3 ml INHALE TID PRN PRN Reason: shortness of breath Last Admin: 10/06/23 22:26 Dose: 3 ml Documented By: PARISH Amlodipine Besylate (Amlodipine Besylate 5 Mg Tablet) 5 mg PO DAILY [facility]; Protocol Last Admin: 10/08/23 09:20 Dose: 5 mg Documented By: BRADLY Ascorbic Acid (Ascorbic Acid 250 Mg Tablet) 250 mg PO BID [facility] Last Admin: 10/08/23 09:20 Dose: 250 mg Documented By: BRADLY Atorvastatin Calcium (Atorvastatin Calcium 40 Mg Tablet) 40 mg PO BEDTIME [facility] Last Admin: 10/07/23 20:44 Dose: 40 mg Documented By: MARY KAY Benzonatate (Benzonatate 100 Mg Capsule) 100 mg PO TID PRN PRN Reason: Cough Last Admin: 09/26/23 21:42 Dose: 100 mg Documented By: LULU Docusate Sodium (Docusate Sodium 100 Mg Capsule) 100 mg PO DAILY PRN PRN Reason: Constipation Last Admin: 09/27/23 10:22 Dose: 100 mg Documented By: MAXWELL Docusate Sodium (Docusate Sodium 100 Mg Capsule) 200 mg PO DAILY [facility] Last Admin: 10/08/23 09:20 Dose: 200 mg Documented By: BRADLY Enoxaparin Sodium (Enoxaparin Sodium 40 Mg/0.4 Ml Syringe) 40 mg SUBCUT Q24H [facility] Last Admin: 10/07/23 16:01 Dose: 40 mg Documented By: FELA Ferrous Sulfate (Ferrous Sulfate 324 Mg Tablet.) 324 mg PO BIDWM [facility] Last Admin: 10/08/23 09:20 Dose: 324 mg Documented By: BRADLY Folic Acid (Folic Acid 1 Mg Tablet) 1 mg PO DAILY [facility] Last Admin: 10/08/23 09:20 Dose: 1 mg Documented By: BRADLY Hydromorphone HCl (Hydromorphone Hcl 0.5 Mg/0.5 Ml Syringe) 0.5 mg IVPUSH Q8H PRN; Protocol PRN Reason: Pain, Severe (Pain Scale 7-10) Last Admin: 10/08/23 09:20 Dose: 0.5 mg Documented By: BRADLY Levetiracetam (Levetiracetam 500 Mg Tablet) 500 mg PO BID [facility] Last Admin: 10/08/23 09:20 Dose: 500 mg Documented By: BRADLY Melatonin (Melatonin 3 Mg Tablet) 6 mg PO BEDTIME PRN PRN Reason: Insomnia Last Admin: 10/07/23 20:38 Dose: 6 mg Documented By: MARY KAY Metoprolol Tartrate (Metoprolol Tartrate 50 Mg Tablet) 50 mg PO BID [facility]; Protocol Last Admin: 10/08/23 09:20 Dose: 50 mg Documented By: BRADLY Mirtazapine (Mirtazapine 30 Mg Tablet) 30 mg PO BEDTIME [facility] Last Admin: 10/07/23 20:44 Dose: 30 mg Documented By: MARY KAY Omeprazole (Omeprazole 20 Mg Capsule.Dr) 20 mg PO DAILY@0630 [facility] Last Admin: 10/08/23 05:37 Dose: 20 mg Documented By: MARY KAY Ondansetron HCl (Ondansetron Hcl 4 Mg/2 Ml Vial) 4 mg IVPUSH Q8H PRN PRN Reason: Nausea and Vomiting Last Admin: 09/27/23 01:21 Dose: 4 mg Documented By: LULU Polyethylene Glycol (Polyethylene Glycol 3350 17 Gm Powd.Pack) 17 gm PO DAILY [facility] Last Admin: 10/08/23 09:20 Dose: 17 gm Documented By: BRADLY Sertraline HCl (Sertraline Hcl 25 Mg Tablet) 25 mg PO DAILY [facility] Last Admin: 10/08/23 09:20 Dose: 25 mg Documented By: BRADLY Sodium Chloride (0.9 % Sodium Chloride Flush 3 Ml Syringe) 3 ml IVFLUSH QSHIFT [facility] Last Admin: 10/08/23 07:30 Dose: Not Given Documented By: BRADLY Non-Admin Reason: See Note Sodium Chloride (Sodium Chloride 0.65 % Nasal 44 Ml Sprbtl) 1 spray NOSTRIL-B Q1H PRN PRN Reason: dryness Last Admin: 09/27/23 01:21 Dose: 1 spray Documented By: LULU Labs 10/07/23 06:10 10/06/23 05:56 Assessment and Plan (1) Elevated troponin: Status: Acute Plan 57-year-old female with a PMH significant for?COPD chronically on 3L NC, HTN, carotid artery stenosis s/p CVA 2016 with residual right-sided hemiparesis, seizure disorder s/p CVA, CAD, takotsubo cardiomyopathy, and MDD who presents to the ED for evaluation of right hip and leg pain after fall at home. Pt will be admitted to the hospital for treatment and further evaluation of right hip fracture. Right hip fracture s/p rt hip closed reduction, percutaneous pinning 09/25/23 Good pain control,cont. stool softeners/encourage incentive spirometry. encourage oob with all meals and ambulation daily Resume Lovenox on 10/07 was held for 48 hours due to hemoptysis Acute hemoptysis Had 1 episode of hemoptysis on 10/05 , no recurrent episodes since ,likely related to nose bleed Chest x-ray showed persistent right opacity since July 2023, CT chest showed right lower lobe opacity nonspecific question infectious or inflammatory process, however neoplastic process is not excluded, few pulmonary nodular densities largest 9 mm and showed emphysema. Will recommend repeat CT in 3-6 months and will discuss with pulmonology regarding further workup for right lower lobe opacity. Repeat H&H stable and close to baseline since no further hemoptysis and epistaxis, restarted Lovenox, continue to hold aspirin for now Follow CBC nosebleed stopped continue nasal saline spray no recurrent bleed since after holding anticoagulation and aspirin Acute on chronic normocytic anemia, acute blood loss post surgery iron studies consistent with anemia of chronic disease , as well as iron deficiency, stool guaiac pend s/p 1 unit of packed RBC,repeat hematocrit improved continue iron supplements, will need outpatient hematology follow-up follow CBC and BMP. Sirs criteria resolved no source of infection found Moderate protein calorie malnutrition. BMI 15.7 supplements added. Coronary artery disease continue metoprolol 50 b.i.d.,norvasc ,continue statin. COPD no acute exacerbation continue home inhalers,on 3 L of home oxygen. Will decrease oxygen to keep finger oximetry around 90% will use humidified oxygen to prevent epistaxis Hx of CVA on aspirin and statin at baseline with right hemiparesis, ambulates with the help of cane, will resume aspirin on Tuesday. Seizure disorder Continue keppra GERD Continue PPI Mood disorder Continue mirtazapine, sertraline Full Code DVT Prophylaxis: lovenox DISPO plan for STR when bed available Pt. will require continued inpatient hospitalization for management post operative care ,right hip surgery/anemia and hemoptysis and safe disposition.. Quality Stroke Does the patient have a stroke diagnosis?: No VTE Prior VTE?: No VTE Risk Level:: Medical - moderate - high VTE Device Contraindication: N/A - Device Ordered VTE Drug Contraindication: Treatment Not Indicated
--- NOTE | 2023-10-08 14:12 | PC.NURSE ---
Addendum entered by Harish Manzanares RN 10/08/23 14:27: oxy ordered. pt states pain lowers to 5 after pain meds Original Note: pt c/o 06/21 pain R hip surg site, not due for prn herveid. informed
[2023-10-08 14:50] VITALS: BP 162/72; PULSE 89; RESP 20; TEMP 36.3; O2SAT 94
[2023-10-08] MEDS: Enoxaparin Sodium 40 MG/0.4 ML SYRINGE SUBCUT (16:04)
[2023-10-08 19:25] VITALS: BP 175/74; PULSE 114; RESP 20; TEMP 36; O2SAT 90
[2023-10-08 20:23] VITALS: PULSE 120; RESP 20; O2SAT 93
[2023-10-08] MEDS: Albuterol/Iprat 2.5/0.5MG 3 ML AMPUL.NEB INHALE (20:23)
[2023-10-08] MEDS: Atorvastatin Calcium 40 MG TABLET PO (20:49)
[2023-10-08] MEDS: Mirtazapine 30 MG TABLET PO (20:50)
[2023-10-08] MEDS: 0.9 % Sodium Chloride Flush 3 ML SYRINGE IVFLUSH (20:50)
[2023-10-09] VITALS (7 sets, daily range): BP systolic 123–138; BP diastolic 54–60; PULSE 74–102; RESP 16–20; TEMP 36.1–37.1; O2SAT 90–99
[2023-10-09] MEDS: oxyCODONE HCl Immed Release 5 MG TABLET PO ×4 (03:14→20:29)
[2023-10-09] MEDS: Omeprazole 20 MG CAPSULE.DR PO (04:58)
[2023-10-09] MEDS: Ascorbic Acid 250 MG TABLET PO ×2 (08:36→20:28)
[2023-10-09] MEDS: 0.9 % Sodium Chloride Flush 3 ML SYRINGE IVFLUSH ×2 (08:36→16:49)
[2023-10-09] MEDS: amLODIPine Besylate 5 MG TABLET PO (08:36)
[2023-10-09] MEDS: Ferrous Sulfate 324 MG TABLET.DR PO ×2 (08:36→16:47)
[2023-10-09] MEDS: Docusate Sodium 100 MG CAPSULE 200 MG PO (08:36)
[2023-10-09] MEDS: Metoprolol Tartrate 50 MG TABLET PO ×2 (08:37→20:28)
[2023-10-09] MEDS: polyethylene glycoL 3350 17 GM POWD.PACK PO (08:37)
[2023-10-09] MEDS: levETIRAcetam 500 MG TABLET PO ×2 (08:37→20:28)
[2023-10-09] MEDS: Folic Acid 1 MG TABLET PO (08:37)
[2023-10-09] MEDS: Sertraline HCL 25 MG TABLET PO (08:37)
--- NOTE | 2023-10-09 11:33 | P.PNPL_ITS ---
Subjective Subjective Date of Service: 10/09/23 Interval history: No recurrence of hemoptysis. CT chest without evidence of AV malformation. Objective Data Labs 10/07/23 06:10 10/06/23 05:56 Microbiology Microbiology Results: Microbiology 09/24/23 06:17 Blood - Venous Blood Culture - Final No growth after 5 days. 09/24/23 06:17 Blood - Venous Blood Culture - Final No growth after 5 days. Review of Systems Cardiovascular: Denies chest pain Respiratory: Denies hemoptysis, Denies excessive phlegm production and Denies wheezing Allergic/Immunologic: Denies wheezing Physical Exam 2 Vital Signs: Vital Signs: Last Vital Signs Temp 97.3 F 10/09/23 07:53 Pulse 83 10/09/23 07:53 Resp 18 10/09/23 07:53 BP 136/58 L 10/09/23 07:53 Pulse Ox 96 10/09/23 07:53 O2 Del Method Nasal Cannula 10/09/23 07:53 O2 Flow Rate 2 10/09/23 07:53 Oxygen Flow Rate 3 09/25/23 14:49 BMI result Body Mass Index 16.7 Const: General: no acute distress, alert and awake Eyes: Sclerae: sclerae normal EOM: EOMs intact bilaterally Neck: Neck: Yes no lymphadenopathy, Yes trachea midline and Yes supple Resp: Effort & Inspection: normal respiratory effort and no respiratory distress Auscultation: clear to auscultation bilaterally Cardio: Rate: regular rate Rhythm: regular rhythm Heart sounds: no gallops, no murmurs and no rubs GI: Palpation (GI): Soft to palpation and Other GI palpation findings present ( Nontender) Auscultation: normal bowel sounds Extrem: General: Yes no pedal edema, No clubbing and No cyanosis Procedures Date of Service Date of Service: 10/09/23 Assessment and Plan Assessment and plan (1) Hemoptysis: Status: Acute (2) Abnormal CT scan, chest: Status: Acute (3) COPD (chronic obstructive pulmonary disease): Status: Acute Plan Impression: 57-year-old lady with development of minor hemoptysis on the background of severe oxygen-dependent COPD and aspirin/Lovenox utilization for DVT prophylaxis, resolved. CT chest with no evidence of AV malformation, bilateral lower lobe lesions noted. Recommendations: No recurrence now on aspirin and Lovenox. Bilateral lower lobe CT chest finding will require outpatient pulmonary follow-up. Time Spent With Patient Time: Total time managing care of this patient today ____ minutes. Progress Note: Quality Stroke Does the patient have a stroke diagnosis?: No
--- NOTE | 2023-10-09 13:53 | HO.PM.IMPN ---
Subjective Subjective Date of Service: 10/09/23 Interval History: seen and examined this morning follow up for multiple issues no overnight events having some right sided hip discomfort Review of Systems Review of Systems: Yes all other systems are reviewed and are negative Constitutional Constitutional: Denies chills and Denies fever(s) Cardiovascular Cardiovascular: Denies chest pain Physical Exam Vital Signs: Vital Signs: Last Vital Signs Temp 97.0 F 10/09/23 11:55 Pulse 74 10/09/23 11:55 Resp 20 10/09/23 11:55 BP 138/54 L 10/09/23 11:55 Pulse Ox 92 10/09/23 11:55 O2 Del Method Nasal Cannula 10/09/23 11:55 O2 Flow Rate 2 10/09/23 11:55 Oxygen Flow Rate 3 09/25/23 14:49 BMI result Body Mass Index 16.7 Const: General: cooperative, comfortable, no acute distress, alert and awake Nutritional Appearance: thin Orientation/consciousness: patient oriented x3 Resp: Effort & Inspection: normal respiratory effort, able to speak in complete sentences, no respiratory distress and no use of accessory muscles Cardio: Rhythm: regular rhythm GI: Inspection: No distended Palpation (GI): Soft to palpation Neuro: Other: chronic right hemiparesis General: patient oriented x3 Extrem: General: Yes no pedal edema Objective Data Active Medications Acetaminophen (Acetaminophen 325 Mg Tablet) 650 mg PO Q6H PRN PRN Reason: Pain, Mild (Pain Scale 1-3) Last Admin: 10/07/23 20:37 Dose: 650 mg Documented By: MARY KAY Albuterol Sulfate (Albuterol Sulfate 90 Mcg 8 Gm Inhaler) 2 puff INHALE Q6H PRN PRN Reason: bronchospasm Albuterol/Ipratropium (Albuterol/Iprat 2.5/0.5mg 3 Ml Ampul.Neb) 3 ml INHALE TID PRN PRN Reason: shortness of breath Last Admin: 10/08/23 20:23 Dose: 3 ml Documented By: PARISH Amlodipine Besylate (Amlodipine Besylate 5 Mg Tablet) 5 mg PO DAILY [facility]; Protocol Last Admin: 10/09/23 08:36 Dose: 5 mg Documented By: SAIMORP Ascorbic Acid (Ascorbic Acid 250 Mg Tablet) 250 mg PO BID [facility] Last Admin: 10/09/23 08:36 Dose: 250 mg Documented By: SAIMORP Aspirin (Aspirin Enteric Coated 81 Mg Tablet.) 81 mg PO DAILY [facility] Atorvastatin Calcium (Atorvastatin Calcium 40 Mg Tablet) 40 mg PO BEDTIME [facility] Last Admin: 10/08/23 20:49 Dose: 40 mg Documented By: HOANG Benzonatate (Benzonatate 100 Mg Capsule) 100 mg PO TID PRN PRN Reason: Cough Last Admin: 09/26/23 21:42 Dose: 100 mg Documented By: LULU Docusate Sodium (Docusate Sodium 100 Mg Capsule) 100 mg PO DAILY PRN PRN Reason: Constipation Last Admin: 09/27/23 10:22 Dose: 100 mg Documented By: MAXWELL Docusate Sodium (Docusate Sodium 100 Mg Capsule) 200 mg PO DAILY [facility] Last Admin: 10/09/23 08:36 Dose: 200 mg Documented By: SAIMORP Enoxaparin Sodium (Enoxaparin Sodium 40 Mg/0.4 Ml Syringe) 40 mg SUBCUT Q24H [facility] Last Admin: 10/08/23 16:04 Dose: 40 mg Documented By: BRADLY Ferrous Sulfate (Ferrous Sulfate 324 Mg Tablet.) 324 mg PO BIDWM [facility] Last Admin: 10/09/23 08:36 Dose: 324 mg Documented By: SAIMORP Folic Acid (Folic Acid 1 Mg Tablet) 1 mg PO DAILY [facility] Last Admin: 10/09/23 08:37 Dose: 1 mg Documented By: SAIMORP Levetiracetam (Levetiracetam 500 Mg Tablet) 500 mg PO BID [facility] Last Admin: 10/09/23 08:37 Dose: 500 mg Documented By: SAIMORP Melatonin (Melatonin 3 Mg Tablet) 6 mg PO BEDTIME PRN PRN Reason: Insomnia Last Admin: 10/07/23 20:38 Dose: 6 mg Documented By: MARY KAY Metoprolol Tartrate (Metoprolol Tartrate 50 Mg Tablet) 50 mg PO BID [facility]; Protocol Last Admin: 10/09/23 08:37 Dose: 50 mg Documented By: SAIMORP Mirtazapine (Mirtazapine 30 Mg Tablet) 30 mg PO BEDTIME [facility] Last Admin: 10/08/23 20:50 Dose: 30 mg Documented By: HOANG Omeprazole (Omeprazole 20 Mg Capsule.Dr) 20 mg PO DAILY@0630 [facility] Last Admin: 10/09/23 04:58 Dose: 20 mg Documented By: HOANG Ondansetron HCl (Ondansetron Hcl 4 Mg/2 Ml Vial) 4 mg IVPUSH Q8H PRN PRN Reason: Nausea and Vomiting Last Admin: 09/27/23 01:21 Dose: 4 mg Documented By: LULU Oxycodone HCl (Oxycodone Hcl Immed Release 5 Mg Tablet) 5 mg PO Q6H PRN PRN Reason: Pain, Severe (Pain Scale 7-10) Last Admin: 10/09/23 08:44 Dose: 5 mg Documented By: PODMORP Polyethylene Glycol (Polyethylene Glycol 3350 17 Gm Powd.Pack) 17 gm PO DAILY [facility] Last Admin: 10/09/23 08:37 Dose: 17 gm Documented By: PODMORP Sertraline HCl (Sertraline Hcl 25 Mg Tablet) 25 mg PO DAILY [facility] Last Admin: 10/09/23 08:37 Dose: 25 mg Documented By: PODMORP Sodium Chloride (0.9 % Sodium Chloride Flush 3 Ml Syringe) 3 ml IVFLUSH QSHIFT [facility] Last Admin: 10/09/23 08:36 Dose: 3 ml Documented By: PODMORP Sodium Chloride (Sodium Chloride 0.65 % Nasal 44 Ml Sprbtl) 1 spray NOSTRIL-B Q1H PRN PRN Reason: dryness Last Admin: 09/27/23 01:21 Dose: 1 spray Documented By: LULU Labs 10/07/23 06:10 10/06/23 05:56 Assessment and Plan (1) Closed subcapital fracture of femur: Status: Acute (2) Hemoptysis: Status: Acute Plan 57-year-old female with a PMH significant for?COPD chronically on 3L NC, HTN, carotid artery stenosis s/p CVA 2015 with residual right-sided hemiparesis, seizure disorder s/p CVA, CAD, takotsubo cardiomyopathy, and MDD who presents to the ED for evaluation of right hip and leg pain after fall at home. Pt will be admitted to the hospital for treatment and further evaluation of right hip fracture. Right hip fracture s/p rt hip closed reduction, percutaneous pinning 09/25/23 Good pain control,cont. stool softeners/encourage incentive spirometry. encourage oob with all meals and ambulation daily Resume Lovenox on 10/07 was held for 48 hours due to hemoptysis Acute hemoptysis Had 1 episode of hemoptysis on 10/05 , no recurrent episodes since ,likely related to nose bleed Chest x-ray showed persistent right opacity since July 2023, CT chest showed right lower lobe opacity nonspecific question infectious or inflammatory process, however neoplastic process is not excluded, few pulmonary nodular densities largest 9 mm and showed emphysema. Will recommend repeat CT in 3-6 months and will discuss with pulmonology - recommend outpatient pulmonary follow up Repeat H&H stable and close to baseline since no further hemoptysis and epistaxis, restarted Lovenox, continue to hold aspirin for now Follow CBC nosebleed stopped continue nasal saline spray no recurrent bleed since after holding anticoagulation and aspirin Acute on chronic normocytic anemia, acute blood loss post surgery iron studies consistent with anemia of chronic disease , as well as iron deficiency, stool guaiac pend s/p 1 unit of packed RBC,repeat hematocrit improved continue iron supplements, will need outpatient hematology follow-up follow CBC and BMP. Sirs criteria resolved no source of infection found Moderate protein calorie malnutrition. BMI 15.7 supplements added. Coronary artery disease continue metoprolol 50 b.i.d.,norvasc ,continue statin. COPD no acute exacerbation continue home inhalers,on 3 L of home oxygen. Will decrease oxygen to keep finger oximetry around 90% will use humidified oxygen to prevent epistaxis Hx of CVA on aspirin and statin at baseline with right hemiparesis, ambulates with the help of cane, will resume aspirin on Tuesday. Seizure disorder Continue keppra GERD Continue PPI Mood disorder Continue mirtazapine, sertraline Full Code DVT Prophylaxis: lovenox DISPO plan for STR when bed available Pt. will require continued inpatient hospitalization for management post operative care ,right hip surgery/anemia and hemoptysis and safe disposition.. Quality Stroke Does the patient have a stroke diagnosis?: No VTE Prior VTE?: No VTE Risk Level:: Medical - moderate - high VTE Device Contraindication: N/A - Device Ordered VTE Drug Contraindication: Treatment Not Indicated
[2023-10-09] MEDS: Acetaminophen 325 MG TABLET 650 MG PO (16:47)
[2023-10-09] MEDS: Enoxaparin Sodium 40 MG/0.4 ML SYRINGE SUBCUT (16:48)
[2023-10-09 17:51] LABS: OBS Int Ctl Valid YES; OBS1 POSITIVE (NEGATIVE)
[2023-10-09] MEDS: traMADoL HCL 50 MG TABLET 25 MG PO (18:08)
[2023-10-09] MEDS: Albuterol/Iprat 2.5/0.5MG 3 ML AMPUL.NEB INHALE (18:23)
[2023-10-09] MEDS: Atorvastatin Calcium 40 MG TABLET PO (20:28)
[2023-10-09] MEDS: Mirtazapine 30 MG TABLET PO (20:28)
[2023-10-10] VITALS (8 sets, daily range): BP systolic 119–165; BP diastolic 52–72; PULSE 66–90; RESP 17–21; TEMP 35.9–36.6; O2SAT 93–100; BMI 15.6
[2023-10-10] MEDS: 0.9 % Sodium Chloride Flush 3 ML SYRINGE IVFLUSH ×4 (00:18→21:15)
[2023-10-10] MEDS: oxyCODONE HCl Immed Release 5 MG TABLET PO ×4 (02:31→21:12)
[2023-10-10] MEDS: Omeprazole 20 MG CAPSULE.DR PO (05:53)
[2023-10-10] MEDS: Docusate Sodium 100 MG CAPSULE 200 MG PO (07:37)
[2023-10-10] MEDS: polyethylene glycoL 3350 17 GM POWD.PACK PO (07:37)
[2023-10-10] MEDS: amLODIPine Besylate 5 MG TABLET PO (07:38)
[2023-10-10] MEDS: Aspirin Enteric Coated 81 MG TABLET.DR PO (07:38)
[2023-10-10] MEDS: Folic Acid 1 MG TABLET PO (07:38)
[2023-10-10] MEDS: Ferrous Sulfate 324 MG TABLET.DR PO ×2 (07:38→16:22)
[2023-10-10] MEDS: Sertraline HCL 25 MG TABLET PO (07:38)
[2023-10-10] MEDS: levETIRAcetam 500 MG TABLET PO ×2 (07:38→21:11)
[2023-10-10] MEDS: Ascorbic Acid 250 MG TABLET PO ×2 (07:38→21:10)
[2023-10-10] MEDS: Metoprolol Tartrate 50 MG TABLET PO ×2 (07:38→21:11)
[2023-10-10 07:54] LABS: Hemoglobin 11.2 g/dl (12.0-16.0); Mean Corpuscular Hemoglobin 27.2 pg (27.0-33.0); Mean Platelet Volume 10.1 fL (9.4-12.3); Platelet Count 603 X10*3/uL (160-400); Red Blood Count 4.12 X10*6/uL (4.20-5.50); Red Cell Distribution Width 14.6 % (11.0-16.0); White Blood Count 10.4 X10*3/uL (4.8-10.8)
[2023-10-10] MEDS: ondansetron HCL 4 MG/2 ML VIAL IVPUSH (09:09)
--- NOTE | 2023-10-10 10:57 | MHC.CM.PN ---
Patient is medically cleared for dc and [facility] is following for bed availability. CM will follow.
--- NOTE | 2023-10-10 12:37 | MHC.CM.PN ---
[facility] is working on bed management to try to accommodate Patient. CM met with Patient at bedside, who is agreeable to the dc goal. CM will follow.
--- NOTE | 2023-10-10 12:38 | P.PNIM_ITS ---
Subjective Subjective Date of Service: 10/10/23 Interval History: follow up hip fx, s/p surgical correction no overnight events having some right sided hip discomfort Review of Systems Review of Systems: Yes all other systems are reviewed and are negative Constitutional Constitutional: Denies chills and Denies fever(s) Cardiovascular Cardiovascular: Denies chest pain Physical Exam 2 Vital Signs: Vital Signs: Last Vital Signs Temp 97.9 F 10/10/23 11:12 Pulse 77 10/10/23 11:12 Resp 20 10/10/23 11:12 BP 119/52 L 10/10/23 11:12 Pulse Ox 94 10/10/23 11:12 O2 Del Method Nasal Cannula 10/10/23 11:12 O2 Flow Rate 2 10/10/23 11:12 Oxygen Flow Rate 3 09/25/23 14:49 BMI result Body Mass Index 16.7 Objective Data Active Medications Acetaminophen (Acetaminophen 325 Mg Tablet) 650 mg PO Q6H PRN PRN Reason: Pain, Mild (Pain Scale 1-3) Last Admin: 10/09/23 16:47 Dose: 650 mg Documented By: LONNIE Albuterol Sulfate (Albuterol Sulfate 90 Mcg 8 Gm Inhaler) 2 puff INHALE Q6H PRN PRN Reason: bronchospasm Albuterol/Ipratropium (Albuterol/Iprat 2.5/0.5mg 3 Ml Ampul.Neb) 3 ml INHALE TID PRN PRN Reason: shortness of breath Last Admin: 10/09/23 18:23 Dose: 3 ml Documented By: ES Amlodipine Besylate (Amlodipine Besylate 5 Mg Tablet) 5 mg PO DAILY [facility]; Protocol Last Admin: 10/10/23 07:38 Dose: 5 mg Documented By: MAXWELL Ascorbic Acid (Ascorbic Acid 250 Mg Tablet) 250 mg PO BID [facility] Last Admin: 10/10/23 07:38 Dose: 250 mg Documented By: MAXWELL Aspirin (Aspirin Enteric Coated 81 Mg Tablet.) 81 mg PO DAILY [facility] Last Admin: 10/10/23 07:38 Dose: 81 mg Documented By: MAXWELL Atorvastatin Calcium (Atorvastatin Calcium 40 Mg Tablet) 40 mg PO BEDTIME [facility] Last Admin: 10/09/23 20:28 Dose: 40 mg Documented By: LONNIE Benzonatate (Benzonatate 100 Mg Capsule) 100 mg PO TID PRN PRN Reason: Cough Last Admin: 09/26/23 21:42 Dose: 100 mg Documented By: LULU Docusate Sodium (Docusate Sodium 100 Mg Capsule) 100 mg PO DAILY PRN PRN Reason: Constipation Last Admin: 09/27/23 10:22 Dose: 100 mg Documented By: MAXWELL Docusate Sodium (Docusate Sodium 100 Mg Capsule) 200 mg PO DAILY [facility] Last Admin: 10/10/23 07:37 Dose: 200 mg Documented By: MAXWELL Enoxaparin Sodium (Enoxaparin Sodium 40 Mg/0.4 Ml Syringe) 40 mg SUBCUT Q24H [facility] Last Admin: 10/09/23 16:48 Dose: 40 mg Documented By: LONNIE Ferrous Sulfate (Ferrous Sulfate 324 Mg Tablet.) 324 mg PO BIDWM [facility] Last Admin: 10/10/23 07:38 Dose: 324 mg Documented By: MAXWELL Folic Acid (Folic Acid 1 Mg Tablet) 1 mg PO DAILY [facility] Last Admin: 10/10/23 07:38 Dose: 1 mg Documented By: MAXWELL Levetiracetam (Levetiracetam 500 Mg Tablet) 500 mg PO BID [facility] Last Admin: 10/10/23 07:38 Dose: 500 mg Documented By: MAXWELL Melatonin (Melatonin 3 Mg Tablet) 6 mg PO BEDTIME PRN PRN Reason: Insomnia Last Admin: 10/07/23 20:38 Dose: 6 mg Documented By: MARY KAY Metoprolol Tartrate (Metoprolol Tartrate 50 Mg Tablet) 50 mg PO BID [facility]; Protocol Last Admin: 10/10/23 07:38 Dose: 50 mg Documented By: MAXWELL Mirtazapine (Mirtazapine 30 Mg Tablet) 30 mg PO BEDTIME [facility] Last Admin: 10/09/23 20:28 Dose: 30 mg Documented By: LONNIE Omeprazole (Omeprazole 20 Mg Capsule.) 20 mg PO DAILY@0630 [facility] Last Admin: 10/10/23 05:53 Dose: 20 mg Documented By: JAZMINE Ondansetron HCl (Ondansetron Hcl 4 Mg/2 Ml Vial) 4 mg IVPUSH Q8H PRN PRN Reason: Nausea and Vomiting Last Admin: 10/10/23 09:09 Dose: 4 mg Documented By: FELA Oxycodone HCl (Oxycodone Hcl Immed Release 5 Mg Tablet) 5 mg PO Q6H PRN PRN Reason: Pain, Severe (Pain Scale 7-10) Last Admin: 10/10/23 09:06 Dose: 5 mg Documented By: FELA Polyethylene Glycol (Polyethylene Glycol 3350 17 Gm Powd.Pack) 17 gm PO DAILY [facility] Last Admin: 10/10/23 07:37 Dose: 17 gm Documented By: MAXWELL Sertraline HCl (Sertraline Hcl 25 Mg Tablet) 25 mg PO DAILY [facility] Last Admin: 10/10/23 07:38 Dose: 25 mg Documented By: MAXWELL Sodium Chloride (0.9 % Sodium Chloride Flush 3 Ml Syringe) 3 ml IVFLUSH QSHIFT [facility] Last Admin: 10/10/23 07:38 Dose: 3 ml Documented By: MAXWELL Sodium Chloride (Sodium Chloride 0.65 % Nasal 44 Ml Sprbtl) 1 spray NOSTRIL-B Q1H PRN PRN Reason: dryness Last Admin: 09/27/23 01:21 Dose: 1 spray Documented By: LULU Labs 10/10/23 06:22 10/06/23 05:56 Labs: Laboratory Results - last 24 hr 10/09/23 10/10/23 17:04 06:22 MCV 85.0 MCH 27.2 MCHC 32.0 RDW 14.6 Plt Count 603 H MPV 10.1 Absolute Nucleated RBC 0.000 Nucleated RBC % (auto) 0.0 Stool Occult Blood POSITIVE Assessment and Plan (1) Closed subcapital fracture of femur: Status: Acute (2) Hemoptysis: Status: Acute Plan 57-year-old female with a PMH significant for?COPD chronically on 3L NC, HTN, carotid artery stenosis s/p CVA 2016 with residual right-sided hemiparesis, seizure disorder s/p CVA, CAD, takotsubo cardiomyopathy, and MDD who presents to the ED for evaluation of right hip and leg pain after fall at home. Pt will be admitted to the hospital for treatment and further evaluation of right hip fracture. Right hip fracture s/p rt hip closed reduction, percutaneous pinning 09/25/23 Good pain control,cont. stool softeners/encourage incentive spirometry. encourage oob with all meals and ambulation daily Lovenox on hold due to hemoptysis OOB for all meals ambulate with assist daily Acute hemoptysis recurrent episodes of hemoptysis Chest x-ray showed persistent right opacity since July 2023, CT chest showed right lower lobe opacity nonspecific question infectious or inflammatory process, however neoplastic process is not excluded, few pulmonary nodular densities largest 9 mm and showed emphysema. Repeat H&H close to baseline secondary to oxygen and possibly asa and lovenox Follow CBC closely continue nasal saline spray Acute on chronic normocytic anemia, acute blood loss post surgery iron studies consistent with anemia of chronic disease , as well as iron deficiency, stool guaiac pend s/p 1 unit of packed RBC,repeat hematocrit improved continue iron supplements, will need outpatient hematology follow-up follow CBC and BMP. Sirs criteria resolved no source of infection found Moderate protein calorie malnutrition. BMI 16.7 supplements added. Coronary artery disease continue metoprolol 50 b.i.d.,norvasc continue statin. COPD no acute exacerbation continue home inhalers on 3 L of home oxygen. Will decrease oxygen to keep finger oximetry around 90% will use humidified oxygen to prevent epistaxis Hx of CVA on aspirin and statin at baseline with right hemiparesis ambulates with the help of cane but not very motivated will resume aspirin on Tuesday. Seizure disorder Continue keppra GERD Continue PPI Mood disorder Continue mirtazapine, sertraline Full Code DVT Prophylaxis: meek Attending Dr. Garcia DISPO plan for STR when bed available Pt. will require continued inpatient hospitalization for management post operative care ,right hip surgery/anemia and hemoptysis and safe disposition.. Quality Stroke Does the patient have a stroke diagnosis?: No VTE Prior VTE?: No VTE Risk Level:: Medical - moderate - high VTE Device Contraindication: N/A - Device Ordered VTE Drug Contraindication: Treatment Not Indicated
[2023-10-10] MEDS: Atorvastatin Calcium 40 MG TABLET PO (21:10)
[2023-10-10] MEDS: Mirtazapine 30 MG TABLET PO (21:12)
[2023-10-10] MEDS: Melatonin 3 MG TABLET 6 MG PO (21:12)
[2023-10-10] MEDS: Sodium Chloride 0.65 % Nasal 44 ML SPRBTL 1 SPRAY NOSTRIL-B (21:13)
[2023-10-11] MEDS: oxyCODONE HCl Immed Release 5 MG TABLET PO ×3 (03:39→15:36)
[2023-10-11 03:53] VITALS: BP 126/63; PULSE 70; RESP 16; TEMP 36.7; O2SAT 97
[2023-10-11] MEDS: Omeprazole 20 MG CAPSULE.DR PO (06:45)
[2023-10-11 07:41] VITALS: BP 106/58; PULSE 75; RESP 22; TEMP 36.5; O2SAT 97
--- NOTE | 2023-10-11 07:49 | PM.PNORT ---
Subjective Subjective Date of Service: 10/11/23 Interval history: POD 15 s/p CRPP right hip no overnight events resting in bed , c/o mild pain denies sob, cp, palpitations Physical Exam Vital Signs: Vital Signs: Last Vital Signs Temp 97.7 F 10/11/23 07:41 Pulse 75 10/11/23 07:41 Resp 22 H 10/11/23 07:41 BP 106/58 L 10/11/23 07:41 Pulse Ox 97 10/11/23 07:41 O2 Del Method Nasal Cannula 10/11/23 07:41 O2 Flow Rate 2 10/11/23 07:41 Oxygen Flow Rate 3 09/25/23 14:49 BMI result Body Mass Index 15.6 Const: General: cooperative, healthy appearing and no acute distress Resp: Effort & Inspection: normal respiratory effort and able to speak in complete sentences Cardio: Rate: regular rate Peripheral pulses: Peripheral pulses 2+ throughout GI: Palpation (GI): Soft to palpation Skin: General skin exam: no rashes or lesions noted Extrem: Other: incision clean dry and intact. Dressing not on. Yolanda intact. No erythema or effusion. Calf supple nontender. Neurovascularly intact. Procedures Date of Service Date of Service: 10/11/23 Progress Note: A&P Assessment and plan (1) Closed subcapital fracture of femur: Status: Acute Assessment and Plan: Continue pain mgmnt Continue Lovenox for dvt ppx Continue PT/OT for rt hip CRPP- WBAT yolanda removed - steri strips Dispo planning-Pending rehab placement (2) Hemiparesis affecting right side as late effect of cerebrovascular accident: Status: Acute Time Spent With Patient Time: Total time managing care of this patient today ____ minutes. Quality Stroke Does the patient have a stroke diagnosis?: No VTE Prior VTE?: No VTE Risk Level:: Medical - moderate - high VTE Device Contraindication: N/A - Device Ordered VTE Drug Contraindication: Treatment Not Indicated
[2023-10-11] MEDS: Folic Acid 1 MG TABLET PO (09:19)
[2023-10-11] MEDS: Docusate Sodium 100 MG CAPSULE 200 MG PO (09:19)
[2023-10-11] MEDS: amLODIPine Besylate 5 MG TABLET PO (09:19)
[2023-10-11] MEDS: Ferrous Sulfate 324 MG TABLET.DR PO ×2 (09:19→15:36)
[2023-10-11] MEDS: polyethylene glycoL 3350 17 GM POWD.PACK PO (09:20)
[2023-10-11] MEDS: Metoprolol Tartrate 50 MG TABLET PO (09:20)
[2023-10-11] MEDS: Sertraline HCL 25 MG TABLET PO (09:20)
[2023-10-11] MEDS: Aspirin Enteric Coated 81 MG TABLET.DR PO (09:20)
[2023-10-11] MEDS: 0.9 % Sodium Chloride Flush 3 ML SYRINGE IVFLUSH ×2 (09:20→15:36)
[2023-10-11] MEDS: Ascorbic Acid 250 MG TABLET PO (09:20)
[2023-10-11] MEDS: levETIRAcetam 500 MG TABLET PO (09:20)
--- NOTE | 2023-10-11 09:59 | HO.PM.IMPN ---
Subjective Subjective Date of Service: 10/11/23 Interval History: follow up hip fx, s/p surgical correction no overnight events having some right sided hip discomfort Review of Systems Review of Systems: Yes all other systems are reviewed and are negative Constitutional Constitutional: Denies chills and Denies fever(s) Cardiovascular Cardiovascular: Denies chest pain Physical Exam Vital Signs: Vital Signs: Last Vital Signs Temp 97.7 F 10/11/23 07:41 Pulse 75 10/11/23 07:41 Resp 22 H 10/11/23 07:41 BP 106/58 L 10/11/23 07:41 Pulse Ox 97 10/11/23 07:41 O2 Del Method Nasal Cannula 10/11/23 07:41 O2 Flow Rate 2 10/11/23 07:41 Oxygen Flow Rate 3 09/25/23 14:49 BMI result Body Mass Index 15.6 Appearing in no acute distress lung sounds are clear to auscultation heart regular rate rhythm, clear S1, S2 positive bowel sounds, abdomen is soft, nontender neuro patient is alert x3, no focal deficits Objective Data Active Medications Acetaminophen (Acetaminophen 325 Mg Tablet) 650 mg PO Q6H PRN PRN Reason: Pain, Mild (Pain Scale 1-3) Last Admin: 10/09/23 16:47 Dose: 650 mg Documented By: LONNIE Albuterol Sulfate (Albuterol Sulfate 90 Mcg 8 Gm Inhaler) 2 puff INHALE Q6H PRN PRN Reason: bronchospasm Albuterol/Ipratropium (Albuterol/Iprat 2.5/0.5mg 3 Ml Ampul.Neb) 3 ml INHALE TID PRN PRN Reason: shortness of breath Last Admin: 10/09/23 18:23 Dose: 3 ml Documented By: ES Amlodipine Besylate (Amlodipine Besylate 5 Mg Tablet) 5 mg PO DAILY [facility]; Protocol Last Admin: 10/11/23 09:19 Dose: 5 mg Documented By: FELA Ascorbic Acid (Ascorbic Acid 250 Mg Tablet) 250 mg PO BID [facility] Last Admin: 10/11/23 09:20 Dose: 250 mg Documented By: FELA Aspirin (Aspirin Enteric Coated 81 Mg Tablet.) 81 mg PO DAILY [facility] Last Admin: 10/11/23 09:20 Dose: 81 mg Documented By: FELA Atorvastatin Calcium (Atorvastatin Calcium 40 Mg Tablet) 40 mg PO BEDTIME [facility] Last Admin: 10/10/23 21:10 Dose: 40 mg Documented By: LULU Benzonatate (Benzonatate 100 Mg Capsule) 100 mg PO TID PRN PRN Reason: Cough Last Admin: 09/26/23 21:42 Dose: 100 mg Documented By: LULU Docusate Sodium (Docusate Sodium 100 Mg Capsule) 100 mg PO DAILY PRN PRN Reason: Constipation Last Admin: 09/27/23 10:22 Dose: 100 mg Documented By: MAXWELL Docusate Sodium (Docusate Sodium 100 Mg Capsule) 200 mg PO DAILY [facility] Last Admin: 10/11/23 09:19 Dose: 200 mg Documented By: FELA Enoxaparin Sodium (Enoxaparin Sodium 40 Mg/0.4 Ml Syringe) 40 mg SUBCUT Q24H [facility] Last Admin: 10/09/23 16:48 Dose: 40 mg Documented By: LONNIE Ferrous Sulfate (Ferrous Sulfate 324 Mg Tablet.) 324 mg PO BIDWM [facility] Last Admin: 10/11/23 09:19 Dose: 324 mg Documented By: FELA Folic Acid (Folic Acid 1 Mg Tablet) 1 mg PO DAILY [facility] Last Admin: 10/11/23 09:19 Dose: 1 mg Documented By: FELA Levetiracetam (Levetiracetam 500 Mg Tablet) 500 mg PO BID [facility] Last Admin: 10/11/23 09:20 Dose: 500 mg Documented By: FELA Melatonin (Melatonin 3 Mg Tablet) 6 mg PO BEDTIME PRN PRN Reason: Insomnia Last Admin: 10/10/23 21:12 Dose: 6 mg Documented By: LULU Metoprolol Tartrate (Metoprolol Tartrate 50 Mg Tablet) 50 mg PO BID [facility]; Protocol Last Admin: 10/11/23 09:20 Dose: 50 mg Documented By: FELA Mirtazapine (Mirtazapine 30 Mg Tablet) 30 mg PO BEDTIME [facility] Last Admin: 10/10/23 21:12 Dose: 30 mg Documented By: LULU Omeprazole (Omeprazole 20 Mg Capsule.) 20 mg PO DAILY@0630 [facility] Last Admin: 10/11/23 06:45 Dose: 20 mg Documented By: LULU Ondansetron HCl (Ondansetron Hcl 4 Mg/2 Ml Vial) 4 mg IVPUSH Q8H PRN PRN Reason: Nausea and Vomiting Last Admin: 10/10/23 09:09 Dose: 4 mg Documented By: FELA Oxycodone HCl (Oxycodone Hcl Immed Release 5 Mg Tablet) 5 mg PO Q6H PRN PRN Reason: Pain, Severe (Pain Scale 7-10) Last Admin: 10/11/23 09:23 Dose: 5 mg Documented By: FELA Polyethylene Glycol (Polyethylene Glycol 3350 17 Gm Powd.Pack) 17 gm PO DAILY [facility] Last Admin: 10/11/23 09:20 Dose: 17 gm Documented By: FELA Sertraline HCl (Sertraline Hcl 25 Mg Tablet) 25 mg PO DAILY [facility] Last Admin: 10/11/23 09:20 Dose: 25 mg Documented By: FELA Sodium Chloride (0.9 % Sodium Chloride Flush 3 Ml Syringe) 3 ml IVFLUSH QSHIFT [facility] Last Admin: 10/11/23 09:20 Dose: 3 ml Documented By: FELA Sodium Chloride (Sodium Chloride 0.65 % Nasal 44 Ml Sprbtl) 1 spray NOSTRIL-B Q1H PRN PRN Reason: dryness Last Admin: 10/10/23 21:13 Dose: 1 spray Documented By: LULU Labs 10/10/23 06:22 10/06/23 05:56 Assessment and Plan (1) Closed subcapital fracture of femur: Status: Acute (2) Hemoptysis: Status: Acute Plan 57-year-old female with a PMH significant for?COPD chronically on 3L NC, HTN, carotid artery stenosis s/p CVA 2016 with residual right-sided hemiparesis, seizure disorder s/p CVA, CAD, takotsubo cardiomyopathy, and MDD who presents to the ED for evaluation of right hip and leg pain after fall at home. Pt will be admitted to the hospital for treatment and further evaluation of right hip fracture. Right hip fracture s/p rt hip closed reduction, percutaneous pinning 09/25/23 Good pain control,cont. stool softeners/encourage incentive spirometry. encourage oob with all meals and ambulation daily Lovenox on hold due to hemoptysis OOB for all meals ambulate with assist daily repeat hip xray today, pt not wanting to wb Acute hemoptysis, epistaxis recurrent episodes of hemoptysis Chest x-ray showed persistent right opacity since July 2023, CT chest showed right lower lobe opacity nonspecific question infectious or inflammatory process, however neoplastic process is not excluded, few pulmonary nodular densities largest 9 mm and showed emphysema. Repeat H&H close to baseline secondary to oxygen and possibly asa and lovenox Follow CBC closely continue nasal saline spray Acute on chronic normocytic anemia, acute blood loss post surgery iron studies consistent with anemia of chronic disease , as well as iron deficiency, stool guaiac pend s/p 1 unit of packed RBC,repeat hematocrit improved continue iron supplements, will need outpatient hematology follow-up follow CBC and BMP. Sirs criteria resolved no source of infection found Moderate protein calorie malnutrition. BMI 15.7 supplements added. Coronary artery disease continue metoprolol 50 b.i.d.,norvasc continue statin. COPD no acute exacerbation continue home inhalers on 3 L of home oxygen. Will decrease oxygen to keep oximetry around 90% will use humidified oxygen to prevent epistaxis Hx of CVA on aspirin and statin at baseline with right hemiparesis ambulates with the help of cane but not very motivated will resume aspirin on Tuesday. Seizure disorder Continue keppra GERD Continue PPI Mood disorder Continue mirtazapine, sertraline Full Code DVT Prophylaxis: meek Attending Dr. Garcia DISPO plan for STR when bed available Pt. will require continued inpatient hospitalization for management post operative care ,right hip surgery/anemia and hemoptysis and safe disposition.. Quality Stroke Does the patient have a stroke diagnosis?: No VTE Prior VTE?: No VTE Risk Level:: Medical - moderate - high VTE Device Contraindication: N/A - Device Ordered VTE Drug Contraindication: Treatment Not Indicated
--- NOTE | 2023-10-11 11:19 | MHC.CM.PN ---
[facility] has accepted Patient and are initiating auth from [facility].CM will follow.
[2023-10-11 11:32] VITALS: BP 125/59; PULSE 74; RESP 20; TEMP 37; O2SAT 100
--- NOTE | 2023-10-11 12:56 | MHC.CM.PN ---
Patient is medically cleared for dc to SNF/STR today. Patient will dc to [facility] today at 4:30 PM, via [facility]. CM met with Patient who is pleased with the dc plan; Patient indicated that she wishes to inform her Daughter of the dc plan herself.
--- NOTE | 2023-10-11 14:40 | P.DS_ITS ---
DS: Providers Provider Date of Service: 10/11/23 Date of admission: 09/24/23 12:02 Primary care physician: Brianna Gonzalez MD Consults: 09/24/23 12:08 Consult to Orthopedics Routine Consulting [place] [facility] [facility] Reason for consultation: Right hip fracture 09/24/23 12:16 Consult to Cardiology Routine Consulting Provider[place] [facility] [place] [facility] Reason for consultation: Pre-op cardiac clearance, hx of takotsubo, rEF 10/06/23 08:42 Consult to Pulmonology Routine Consulting Provider: Edu Mercer Reason for consultation: hemoptysis Has provider been notified: No DS: Diagnosis Discharge Diagnosis (1) Closed subcapital fracture of femur: Status: Acute (2) Hemoptysis: Status: Acute DS: Summary Hospital Course Hospital Course: History and physical as per admitting provider. Pt is a 57-year-old female with a PMH significant for?COPD chronically on 3L NC, HTN, carotid artery stenosis s/p CVA 2016 with residual right-sided hemiparesis, seizure disorder s/p CVA, CAD, takotsubo cardiomyopathy, and MDD who presents to the ED for evaluation of right hip and leg pain after fall at home. ?Patient states last night he went to the bathroom and washed up without incident, but when she turned around go back into her room she felt dizzy and fell on her right side. Denies having a seizure. Immediately felt pain in her right elbow, hand, hip and leg, and was unable to stand. Patient lives with her daughter who is her MEASURER MACHINE who helped her into her bed but did not initially call EMS for a few hours after fall. Pt reports she eventually was able to convince her daughter to call an ambulance. Apparently patient also fell earlier in the day in her room without injury. When EMS arrived they found patient's home O2 held together in place by duct tape; patient reports that her cats have chewed up her O2 tubing and she has been unable to obtain any replacements. Pt notes she has not taken any of her home meds for the past few days and has been ?out of everything?. Pt is vague about reasons, and it is not clear if it is due to not being refilled or not having a ride to pick them up. It was also noted that daughter attempted to patch up a skin tear on the patient's right elbow with duct tape. Patient complains of 10/10 right hip and thigh pain, also complains of right elbow and hand pain, chronic shortness of breath around baseline. Experienced some palpitations and racing heart last night, especially after the second fall, but currently no chest pain/pressure, palpitations. Denies nausea, vomiting, abdominal pain. No fevers, chills, diarrhea. Pt ambulates with a cane at baseline. In the ED pt was tachycardic up to 142, tachypneic up to 22, hypertensive up to 154/62, satting at 89% on 4 L NC. Labs were significant for leukocytosis of 14.7, stable H&H of 10.032.7, and initial troponin 70.1 with repeat 60.3. No significant electrolyte abnormality. Renal and hepatic function WNL. Lactic acid WNL at 1.9. UA negative for UTI. Hip x-ray positive for acute valgus impacted subcapital fracture of the right proximal femur. CXR showed pulmonary emphysema but no acute pulmonary findings. Continue to find persistent focal airspace opacification in the right lung base, recommend follow-up CT to exclude an underlying lesion. X-ray of right elbow found no acute fracture or malalignment but did show osteopenia. X-ray of right hand found no acute fracture or malalignment, but did show osteopenia and mild osteoarthritis of 1st CMC joint. CT of head found no acute intracranial pathology but did show an old MCA distribution infarction. CT cervical spine found no acute fracture or malalignment, but showed multilevel degenerative spondylolysis and cervical spine with moderate to severe central canal stenosis at C3-C4 and C4-C5. Initial EKG demonstrated sinus tachycardia of [address] depressions in V4, V5 and V6. Repeat EKG showed normal sinus rhythm with heart rate of 90, and no significant ST elevations or depressions. Pt was treated with Mag sulfate, fentanyl, Dilaudid, and home metoprolol, inhalers, and Keppra. Pt will be admitted to the hospital for treatment and further evaluation of right hip fracture. 58-year-old woman treated for right hip fracture. Status post hip closed reduction, percutaneous pinning on 09/25/2023. She has been weaned off IV and oral pain medication, seen evaluated by Physical therapy. Out of bed with all meals and encouraged to ambulate. Was started on Lovenox for DVT prophylaxis and will continue for total of 6 weeks. Repeat hip x-ray on 10/11/2023 showed stabilized right femoral neck fracture with [address]. She did have some episodes of epistaxis and mild hemoptysis, chest CT showed right lower lobe opacity since 2022 so no new change. Probably should repeat a CT scan few months. Her H&H has remained stable, her Lovenox and aspirin were held for few days and the symptoms improved. Symptoms are likely secondary to dryness from her chronic oxygen use. She can use nasal saline spray as needed. She did have 1 unit of packed red blood cells post surgery for acute on chronic normocytic anemia and iron deficiency anemia. She was started on iron supplementation and if any further testing is necessary can see Hematology outpatient. Moderate protein calorie malnutrition. BMI 14.6. Encourage oral intake and add protein supplements. Coronary artery disease. Continue metoprolol and statin History of CVA. On aspirin and statin at baseline with right hemiparesis. Ambulates generally with a cane, prior to surgery. Seizure disorder. No seizures during hospitalization. Continue Keppra GERD. Continue PPI Mental health. Continue mirtazapine and sertraline Time Attestation Discharge coordination time: Greater than 30 minutes Quality: Safe Use of Opioids Does Pt have an Active Cancer Diagnosis on the Problem List?: No Quality: Stroke Does the patient have a stroke diagnosis?: No Physical Exam Vital Signs: Vital Signs: Last Vital Signs Temp 98.6 F 10/11/23 11:32 Pulse 74 10/11/23 11:32 Resp 20 10/11/23 11:32 BP 125/59 L 10/11/23 11:32 Pulse Ox 100 10/11/23 11:32 O2 Del Method Nasal Cannula 10/11/23 11:32 O2 Flow Rate 2 10/11/23 11:32 Oxygen Flow Rate 3 09/25/23 14:49 BMI result Body Mass Index 15.6 Appearing in no acute distress head is normocephalic atraumatic eyes pupils are PERRLA sclera is anicteric mouth throat mucous membranes are intact and moist neck is supple no lymphadenopathy, no JVD noted lung sounds are clear to auscultation heart regular rate rhythm, clear S1, S2 positive bowel sounds, abdomen is soft, nontender neuro patient is alert x3, no focal deficits DS: Data Data Completed and Pending Completed studies during hospitalization [Text1]: Procedures Assistance with Respiratory Ventilation, 24-96 Consecutive Hours, Continuous Positive Airway Pressure (08/16/21) Assistance with Respiratory Ventilation, Less than 24 Consecutive Hours, Continuous Positive Airway Pressure (03/17/23) Insertion of Infusion Device into Superior Vena Cava, Percutaneous Approach (08/16/21) Introduction of Remdesivir Anti-infective into Central Vein, Percutaneous Approach, [employer] (08/16/21) Discharge Plan Discharge Anticipated Discharge Date/Time: 10/11/23 14:02 Patient Disposition: Xfer [facility] Discharge Diagnosis: Right hip fracture Closed reduction percutaneous pinning Hemoptysis/epistaxis Referrals: [facility] [Outside] - 1 Week Charlotte Nicholson PA-C [Physician X Ray Service Engineer] - 11/04/23 11:30 am (11/04/2023 @11:30AM) Brianna Gonzalez MD [Primary Care Provider] - 1 Week Discharge Medications: New polyethylene glycol 3350 17 gram Powder In Packet 17 g PO DAILY Qty: 30 0RF ascorbic acid (vitamin C) 250 mg Tablet 250 mg PO BID Qty: 60 0RF docusate sodium 100 mg Capsule 100 mg PO DAILY PRN (Reason: Constipation) Qty: 30 0RF ferrous sulfate 324 mg (65 mg iron) Tablet,Delayed Release (Dr/Ec) 324 mg PO BIDWM Qty: 60 0RF enoxaparin 40 mg/0.4 mL Syringe 40 mg subcut Q24H Qty: 4 0RF Continued albuterol sulfate 90 mcg/actuation HFA aerosol inhaler 2 puff PO Q6H PRN (Reason: bronchospasm) 30 Days Qty: 6.7 5RF ipratropium-albuterol 0.5 mg-3 mg(2.5 mg base)/3 mL solution for nebulization 3 ml inhalation TID PRN (Reason: shortness of breath) Qty: 180 0RF amlodipine 5 mg tablet 5 mg PO DAILY 90 Days Qty: 90 0RF aspirin [Adult Low Dose Aspirin] 81 mg tablet,delayed release (DR/EC) 81 mg PO DAILY Qty: 90 0RF atorvastatin 40 mg tablet 40 mg PO BEDTIME Qty: 90 0RF folic acid 1 mg tablet 1 mg PO DAILY Qty: 90 0RF levetiracetam 500 mg tablet 500 mg PO BID 90 Days Qty: 180 0RF metoprolol tartrate 25 mg tablet 25 mg PO BID 90 Days Qty: 180 0RF mirtazapine 30 mg tablet 30 mg PO BEDTIME 90 Days Qty: 90 0RF omeprazole 20 mg capsule,delayed release(DR/EC) 20 mg PO DAILY@0630 Qty: 90 0RF sertraline 25 mg tablet 25 mg PO DAILY Qty: 90 0RF Discharge Orders: Discharge Order (Routine); Ordered 10/11/23 Ordered By: Debbi Morse Diet: Advance to usual diet Activity on Discharge: Use cane or walker Stand Alone Forms: Patient Portal Discharge page Activity Restrictions/Additional Instructions: Physical Therapy for total hip arthroplasty: gait training, ROM, strength Limit stair climbing No driving x6 weeks Continue Lovenox x 6 weeks end date 11/07/23 [place] [facility] [place] [place] 2 [place] Care Plan Goals: Transfer to short-term rehab for physical therapy Health Concerns: Right hip fracture Closed reduction percutaneous pinning Hemoptysis/epistaxis Plan of Treatment: Follow-up with primary care provider as needed Follow-up with orthopedic surgery team in 2 weeks Take all medications as prescribed Assessment: See discharge summary
[2023-10-11 15:18] VITALS: BP 118/55; PULSE 80; RESP 17; TEMP 36.3; O2SAT 98
== END 2023-10-11 17:39 | disposition skilled nursing facility (03) | DRG 308 ==
LOC: HO.ED 07:21 → HO.EDOVER 12:10 → HO.IMC 20:00
PROVIDERS: Emergency Medicine; Hospitalist; Orthopaedic Surgery; Admitting Provider Student in an Organized Health Care Education/Training Program; Emergency Provider Emergency Medicine; PCP Internal Medicine; Visit Provider Nurse Practitioner Acute Care
PROC: 0QS634Z Reposition Right Upper Femur with Internal Fixation Device, Percutaneous Approach (ICD-10-PCS; principal; 2023-09-25 13:00)
DX: S72.011A Unspecified intracapsular fracture of right femur, initial encounter for closed fracture (principal); R65.10 Systemic inflammatory response syndrome (SIRS) of non-infectious origin without acute organ dysfunction; E44.0 Moderate protein-calorie malnutrition; D68.32 Hemorrhagic disorder due to extrinsic circulating anticoagulants; Z99.81 Dependence on supplemental oxygen; I69.351 Hemiplegia and hemiparesis following cerebral infarction affecting right dominant side; D63.8 Anemia in other chronic diseases classified elsewhere; R04.2 Hemoptysis; R91.8 Other nonspecific abnormal finding of lung field; K21.9 Gastro-esophageal reflux disease without esophagitis; F39 Unspecified mood [affective] disorder; D50.9 Iron deficiency anemia, unspecified; R04.0 Epistaxis; T39.015A Adverse effect of aspirin, initial encounter; T45.515A Adverse effect of anticoagulants, initial encounter; Z68.1 Body mass index [BMI] 19.9 or less, adult; J43.1 Panlobular emphysema; E86.1 Hypovolemia; D62 Acute posthemorrhagic anemia; I69.398 Other sequelae of cerebral infarction; G40.909 Epilepsy, unspecified, not intractable, without status epilepticus; W19.XXXA Unspecified fall, initial encounter; I25.10 Atherosclerotic heart disease of native coronary artery without angina pectoris; Z79.82 Long term (current) use of aspirin; Z87.891 Personal history of nicotine dependence; Z79.899 Other long term (current) drug therapy
CPT/HCPCS: 36415; 70450; 71045; 71260; 72125; 73070; 73130; 73502; 80048; 80076; 80307; 81003; 82272; 82550; 82728; 82803; 82947; 83540; 83605; 83735; 83880; 84484; 85025; 85027; 85610; 86850; 86900; 86901; 86923; 87040; 93005; 93306; 94640; 97110; 97162; 97167; 97530; 97535; 99024; 99285; C1713; C1758; C1769; J0665; J0690; J1170; J1650; J2371; J2405; J2704; J2795; J3010; J3475; P9016; Q9967

== ENCOUNTER → 2023-09-24 04:06 | Outpatient (BNV) | payer OTHER, SELFPAY | PROVIDERS: Emergency Provider Emergency Medicine; Visit Provider Internal Medicine Cardiovascular Disease | DX: R94.31 Abnormal electrocardiogram [ECG] [EKG] (principal) | CPT/HCPCS: 93010 ==

== ENCOUNTER 2023-09-24 12:02 | Outpatient (BNV) | payer OTHER, SELFPAY | END 2023-09-26 07:00 | PROVIDERS: Admitting Provider Student in an Organized Health Care Education/Training Program; Emergency Provider Emergency Medicine; PCP Internal Medicine; Visit Provider Internal Medicine | DX: I35.1 Nonrheumatic aortic (valve) insufficiency (principal); I36.1 Nonrheumatic tricuspid (valve) insufficiency | CPT/HCPCS: 93306 ==

== ENCOUNTER → 2023-09-24 12:02 | Outpatient (BNV) | payer OTHER, SELFPAY | PROVIDERS: Admitting Provider Student in an Organized Health Care Education/Training Program; Emergency Provider Emergency Medicine; Visit Provider Physician Assistant | DX: S72.001A Fracture of unspecified part of neck of right femur, initial encounter for closed fracture (principal) | CPT/HCPCS: 27235; 99232; 99499 ==

== ENCOUNTER → 2023-09-24 12:02 | Outpatient (BNV) | payer OTHER, SELFPAY | PROVIDERS: Admitting Provider Student in an Organized Health Care Education/Training Program; Emergency Provider Emergency Medicine; PCP Internal Medicine; Visit Provider Internal Medicine Pulmonary Disease | DX: R04.2 Hemoptysis (principal); J43.1 Panlobular emphysema; R93.89 Abnormal findings on diagnostic imaging of other specified body structures | CPT/HCPCS: 99222; 99232 ==

== ENCOUNTER → 2023-09-24 12:02 | Outpatient (BNV) | payer OTHER, SELFPAY | PROVIDERS: Admitting Provider Student in an Organized Health Care Education/Training Program; Emergency Provider Emergency Medicine; Visit Provider Student in an Organized Health Care Education/Training Program | DX: S72.011A Unspecified intracapsular fracture of right femur, initial encounter for closed fracture (principal); R04.2 Hemoptysis | CPT/HCPCS: 99223; 99232; 99233; 99239 ==

== ENCOUNTER → 2023-09-24 12:02 | Outpatient (BNV) | payer OTHER, SELFPAY | PROVIDERS: Admitting Provider Student in an Organized Health Care Education/Training Program; Emergency Provider Emergency Medicine; Visit Provider Internal Medicine Cardiovascular Disease | DX: Z01.810 Encounter for preprocedural cardiovascular examination (principal) | CPT/HCPCS: 99222 ==

== ENCOUNTER 2023-11-03 08:44 | Outpatient (REF) | payer OTHER, SELFPAY ==
--- NOTE | ~2023-11-03 | XR_ITS ---
EXAMINATION: XR HIP, RIGHT CLINICAL INFORMATION: Pain in unspecified hip. COMPARISON: 10/11/2023, 09/24/2023. TECHNIQUE: 3 views of the right hip. FINDINGS: Redemonstration of postsurgical changes with 3 cannulated screws traversing previously noted right femoral neck fracture. Hardware appears intact. Fracture fragments are in alignment as before. Degenerative changes in the imaged lower lumbar spine. XR/XR hip RT w PEL1V IMPRESSION: Redemonstration of postsurgical changes with 3 cannulated screws traversing previously noted right femoral neck fracture. Hardware appears intact. Fracture fragments stable in alignment as before. This study was presented today, 11/09/2023, at 11:20 AM for interpretation. Prompt priority results supplied at this time to the referring provider as requested by the provider.
== END 2023-11-03 08:45 | disposition home or self-care (01) ==
LOC: HO.HOSX 08:44
PROVIDERS: Visit Provider Physician Assistant
DX: M25.559 Pain in unspecified hip (principal)
CPT/HCPCS: 73502

== ENCOUNTER 2023-11-04 11:13 | Outpatient (AMB) | payer OTHER, SELFPAY ==
--- NOTE | 2023-11-04 11:33 | A.OFFVIS_ITS ---
Intake Intake Visit Reasons: PO - right hip CRPP 09/25/23 NE Intake Note: Radha gonzalez 58 year old female presents today for a post operative right hip CRPP on 09/25/23 NE. Patient reports she is doing good and feels that things are going well. She has no concerns. Allergies crab Allergy (Unknown, Verified 06/24/23 11:02) Hives penicillin V Allergy (Unknown, Verified 06/24/23 11:02) hives Penicillins [PENICILLINS] Allergy (Unknown, Verified 06/24/23 11:02) hives SEASONAL ALLERGIES Allergy (Mild, Uncoded 03/17/23 01:46) RUNNY NOSE HPI PO - right hip CRPP 09/25/23 NE HPI Details 58-year-old female who presents in the [facility] today 5 weeks status post right hip femoral neck CRPP, which was performed on 09/25/[address] Peralta. The patient was last seen in the hospital on 10/11/2023 by Raymundo Machado PA-C where she was instructed to continue to work with physical therapy and to weight bear as tolerated. While in the office today the patient reports she is doing good and feels that things are going well. She has no concerns today. [facility] Medical History COPD (chronic obstructive pulmonary disease) History of acute respiratory distress syndrome (ARDS) (~08/2021) Seizure (~11/2021) History of non-ST elevation myocardial infarction (NSTEMI) (~11/2021) History of multiple cerebrovascular accidents (CVAs) Nicotine dependence, cigarettes, uncomplicated Cocaine abuse Respiratory failure with hypoxia Normocytic anemia History of drug abuse Major depression, recurrent Oxygen dependent Takotsubo cardiomyopathy Cocaine abuse Acute CHF (congestive heart failure) Hypercapnic respiratory failure, chronic Hemiparesis affecting right side as late effect of cerebrovascular accident Asymptomatic carotid artery stenosis with infarction Chronic GERD Environmental allergies Anxiety, generalized Lipid disorder Asthma, moderate Surgical History History of left-sided carotid endarterectomy (~09/2012) History of tonsillectomy and adenoidectomy Family History Father Substance abuse Mother Brain cancer Maternal Grandfather History of heart attack Maternal Grandmother History of heart attack Paternal Grandfather No problems noted. Paternal Grandmother No problems noted. Brother No problems noted. Brother No problems noted. Son No problems noted. Daughter No problems noted. Other Mental health disorder Social History Household Members: Children Housing: [facility] Do you presently have visiting nurse or other home services: No Unable to assess alcohol history related to: Refusing to respond Alcohol intake: former Patient Tobacco Use Status: Former Tobacco user Tobacco use type: Cigarette Cigarettes Per Day: 2 Years Smoked: COUPLE YEAR AGO PER PT e-Cigarette/Vaping Use: Never Used Second Hand Smoke Exposure: No Advance Directives Date on File: 11/25/21 service: No Current occupational status: disabled Cognitive needs: No Hearing needs: No Vision needs: No Review of Systems Const All systems reviewed & are unremarkable except as noted in HPI and below Physical Exam Const General: cooperative, healthy appearing and no acute distress Resp Effort & Inspection: normal respiratory effort and able to speak in complete sentences Cardio Rate: regular rate Peripheral pulses: Peripheral pulses 2+ throughout GI Palpation (GI): Soft to palpation Skin Lesions: no lesions Rashes: no rashes Extrem Other: Right hip: Incision site is clean, dry, and intact. No surrounding erythema or drainage. No signs of infection. Able to perform ROM with pain. NVI. Assessment & Plan Assessment & Plan (1) Fracture of femoral neck, right: Code(s): S72.001A - Fracture of unspecified part of neck of right femur, initial encounter for closed fracture Plan Ms. Bragg is a 58-year-old female who presents in the office today 5 weeks status post right hip femoral neck CRPP, which was performed on 09/25/[address] Peralta. The patient was last seen in the hospital on 10/11/2023 by Raymundo Machado PA-C where she was instructed to continue to work with physical therapy and to weight bear as tolerated. While in the office today the patient reports she is doing good and feels that things are going well. She has no concerns today. The patient will continue to work with physical therapy to work on glute, core, and quad strengthening with gait training. She may weight bear as tolerated with a walker. Follow up will be in 6 weeks with repeat x-rays, or sooner if needed. X-rays of the right hip which were obtained while in the office today and were reviewed by me, Charlotte Nicholson PA-C, revealed intact orthopedic hardware with routine healing. Orders: Orders XR hip RT w PEL1V Today M25.559 - Pain in unspecified hip Patient Instructions: Scribed by Lachelle Fuller front office medical assistant, for Charlotte Nicholson PA-C on 11/04/2023 at 11:17 am, EST. Coding Level of Care Code Global (98890) Diagnoses Fracture of femoral neck, right S72.001A
== END 2023-11-04 12:32 | disposition home or self-care (01) ==
PROVIDERS: PCP Internal Medicine; Visit Provider Physician Assistant
DX: S72.001A Fracture of unspecified part of neck of right femur, initial encounter for closed fracture (principal)
CPT/HCPCS: 99024

== ENCOUNTER → 2023-11-04 11:13 | Outpatient (BNVA) | payer OTHER, SELFPAY | PROVIDERS: PCP Internal Medicine; Visit Provider Physician Assistant | DX: S72.001D Fracture of unspecified part of neck of right femur, subsequent encounter for closed fracture with routine healing (principal) | CPT/HCPCS: 99212 ==

== ENCOUNTER 2023-12-16 09:47 | Outpatient (REF) | payer OTHER, SELFPAY | END 2023-12-16 09:48 | disposition home or self-care (01) | LOC: HO.HOSX 09:47 | PROVIDERS: Visit Provider Physician Assistant | DX: Z13.89 Encounter for screening for other disorder (principal) ==

== ENCOUNTER 2024-01-02 19:50 | Inpatient (IN) | payer OTHER, SELFPAY ==
[2024-01-02] VITALS (9 sets, daily range): BP systolic 93–204; BP diastolic 44–83; PULSE 73–104; RESP 13–17; O2SAT 97–100; BMI 18.1
--- NOTE | 2024-01-02 | EEG_ITS ---
FINDINGS: Waking background activity consists of a diffuse 5 to 6 hertz poorly modulated theta, intermixed with muscle artifact and low-voltage fast frequencies. Photic stimulation is without activation. Hyperventilation is omitted. No sleep stages are identified. IMPRESSION: This is an abnormal EEG due to diffuse background slowing consistent with a diffuse encephalopathic process. No epileptiform discharges are seen. MD ZACH Og/CORAL / [id number]
--- NOTE | ~2024-01-02 | CT_ITS ---
EXAMINATION: CT head for stroke CLINICAL INFORMATION: Reason for Exam slurred speech, high BP COMPARISON: CT head without contrast 09/24/2023 TECHNIQUE: Contiguous axial imaging was performed from the skull base to vertex without intravenous contrast. Sagittal and coronal reformatted images were obtained. This CT examination was performed using dose optimization techniques as appropriate, variously including the following: * Automated exposure control * Adjustment of mA and/or kV according to patient size (this includes techniques or standardized protocols for targeted exams where dose is matched to indication/reason for exam; i.e. extremities or head) Use of iterative reconstruction technique DLP: 575 mGy-cm FINDINGS: No acute osseous or soft tissue abnormality. The mastoid air cells and visualized portions of the paranasal sinuses are well aerated. There is no evidence of acute intracranial hemorrhage or territorial infarction. No abnormal mass effect or midline shift is seen. [place] to white matter differentiation is well preserved. No extra-axial fluid collections are identified. No hydrocephalus. Ex vacuo dilatation of the left lateral ventricle. Patchy periventricular and deep white matter hypoattenuation is consistent with mild to moderate small vessel ischemic changes. Chronic left MCA territory infarct. Atrophy of the left cerebral peduncle compatible with Wallerian degeneration CT/CT head for stroke IMPRESSION: 1. No acute intracranial abnormality including hemorrhage, mass effect, hydrocephalus, or acute territorial edematous infarction. . 2. Chronic left MCA territory infarct Above impression was communicated to Dr. Dixon on 01/02/2024 8:26 PM
--- NOTE | ~2024-01-02 | CT_ITS ---
EXAMINATION: CT ANGIOGRAM HEAD CT ANGIOGRAM NECK CLINICAL INFORMATION: Reason for Exam slurred speech, high BP COMPARISON: CTA head and neck 11/25/2011, same day noncontrast head CT TECHNIQUE: Initial noncontrast nurse companion imaging of the head and neck was performed. Comparison is made with noncontrast head CT from earlier today. Test bolus sequences followed by intravenous administration 70 mL of Omnipaque 350. Helical imaging was performed in the axial plane from the aortic arch to the skull vertex. Delayed postcontrast imaging of the head was also performed. The data was processed at the lead technologist in cytogenetics workstation for generation of MIP sequences. Angled MIPs and volume rendered reformatted images were also generated at an offline 3D workstation. Stenoses are assessed in accordance with NASCET criteria unless otherwise indicated. DLP: 1406 mGy-cm This CT examination was performed using dose optimization techniques as appropriate, variously including the following: *Automated exposure control. *Adjustment of mA and/or kV according to patient size (this includes techniques or standardized protocols for targeted exams where dose is matched to indication/reason for exam; i.e. extremities or head). *Use of iterative reconstruction technique. FINDINGS: CT Head: Please refer to report from immediately preceding noncontrast head CT. No abnormal intracranial enhancement. CT Neck: The thyroid gland and remaining cervical soft tissues are within normal limits. Multilevel cervical spondylosis. CT Upper Chest: Mild smooth intralobular septal thickening which may reflect interstitial edema. No focal or pulmonary consolidation. Visualized upper mediastinum is within normal limits. Neck CTA: Aortic Arch: Normal contour and caliber. Classic 3 vessel branching pattern of the aortic arch. Great Vessel Origins: No significant stenosis of the branch origins. Right Common Carotid Artery: No focal stenosis or occlusion. Cervical Right Internal Carotid Artery: Calcific atherosclerotic disease of the carotid bulb and proximal internal carotid artery causing less than 50% stenosis. Stable mild to moderate stenosis of a tortuous portion of the distal cervical right ICA with poststenotic dilatation of the distalmost right cervical ICA. Left Common Carotid Artery: Chronically occluded just distal to its origin. Cervical Left Internal Carotid Artery: Stable absent contrast filling throughout the neck. Cervical Right Vertebral Artery: No focal stenosis or occlusion. Cervical Left Vertebral Artery: No focal stenosis or occlusion. Brain CTA: CTA of the head is somewhat technically limited secondary to extensive venous contamination. Intracranial Internal Carotid Arteries: Mild calcified atherosclerotic disease of the cavernous and supraclinoid right ICA without significant luminal narrowing. Stable thready reconstitution of the left supraclinoid ICA and carotid terminus with preserved left A1 and M1 origins. Right Anterior Cerebral Artery: Normal A1 segment. Normal opacification of the distal RIKY segments. Left Anterior Cerebral Artery: Normal A1 segment. Normal opacification of the distal RIKY segments. Anterior Communicating Artery: Normal. Right Middle Cerebral Artery: Normal M1 segment of the MCA without focal stenosis or occlusion. Normal arborization of the distal segments. Left Middle Cerebral Artery: Normal M1 segment of the MCA without focal stenosis or occlusion. Normal arborization of the distal segments. Right Vertebral Artery: Normal V4 segment. Left Vertebral Artery: Normal V4 segment. Basilar Artery: Normal without focal stenosis or occlusion. Normal appearance of the proximal superior cerebellar arteries. Right Posterior Cerebral Artery: Normal P1 segment. Normal opacification of the distal REGISTRATION REP segments. Left Posterior Cerebral Artery: Normal P1 segment. Normal opacification of the distal REGISTRATION REP segments. Normal opacification of the superior sagittal, straight, transverse, and sigmoid sinuses. CT/CT angio head neck stroke IMPRESSION: No new or progressive arterial high-grade stenosis or large vessel occlusion in the head or neck. Stable occlusion of the left common carotid artery just past its origin with absent contrast filling of the majority of the left ICA and intracranial reconstitution of the left carotid terminus and A1 and M1 origins. Above impression was communicated to Dr Dixon on 01/02/2024 8:37 PM
--- NOTE | ~2024-01-02 | MR_ITS ---
MRI OF THE BRAIN WITHOUT IV CONTRAST INDICATION: Question acute CVA. Slurred speech. COMPARISON: CT head and CTA head and neck 01/02/2024. Brain MRI 11/26/2021. TECHNIQUE: Multiplanar multisequence MR imaging of the brain was obtained without IV contrast. FINDINGS: There is no hydrocephalus, extra-axial surface collection, or herniation. There are T2 signal changes within the bilateral occipital subcortical white matter bilaterally as well as the high right frontoparietal subcortical white matter with the distribution most suggestive of PRES which can be correlated for underlying hypertension. A large chronic infarct within the left MCA territory is again noted with associated chronic left-sided wallerian degeneration. A punctate focus of restricted diffusion within the central medulla may be artifactual or may reflect an acute lacunar infarct. Absent cervical and intracranial left internal carotid artery flow void in keeping with the known left common carotid artery/internal carotid artery occlusion. There is no intracranial hemorrhage on the gradient recalled echo acquisition. The midline structures are normal. The cerebellar tonsils are normally positioned. The craniocervical junction is normal. Osseous marrow signal intensity is homogenous. Partial absence of the nasal septum. Moderate opacification of the ethmoid air cells bilaterally and mild mucosal thickening throughout the remaining paranasal sinuses. MR/MR head/brain wo con IMPRESSION: - A punctate focus of restricted diffusion within the central medulla may be artifactual or may reflect an acute lacunar infarct. No mass effect and no hemorrhagic transformation. - There are T2 signal changes within the occipital subcortical white matter bilaterally as well as the high right frontoparietal subcortical white matter with the distribution most suggestive of PRES which can be correlated for underlying hypertension. Postcontrast imaging would be helpful in excluding any enhancing pathology to explain these findings. - A large chronic infarct within the left MCA territory is again noted with associated chronic left-sided wallerian degeneration. - Absent cervical and intracranial left internal carotid artery flow void in keeping with the known left common carotid artery/internal carotid artery occlusion.
--- NOTE | 2024-01-02 19:57 | PC.NURSE ---
Pt brought to ED3 prior to Ct scan due to oxygen saturation of 49% with good pleth. Oxygen tubing in place. Per EMS pt does wear home oxygen, realized upon arrival their tank was not turned on. Oxygen turned on to 4L with good effect to high 90's. Plan for transport to CT shortly.
--- NOTE | 2024-01-02 20:00 | ECG_ITS ---
Test Reason : ?STROKE Blood Pressure : / mmHG Vent. Rate : 127 BPM Atrial Rate : 127 BPM P-R Int : 134 ms QRS Dur : 084 ms QT Int : 316 ms P-R-T Axes : 082 086 078 degrees QTc Int : 459 ms Sinus tachycardia Septal infarct , age undetermined Abnormal ECG When compared with ECG of 24-SEP-2023 07:01, No significant change was found Referred By: Paulette Dixon Electronically Signed By:WILLIS GUERRIER MD
[2024-01-02 20:02] LABS: Glucose, Whole Blood 118 mg/dL (60-115)
--- NOTE | 2024-01-02 20:03 | PC.NURSE ---
Pt to CT on full alarm security or surveillance monitor with tis RN and .
[2024-01-02] MEDS: Labetalol HCL 100 MG/20 ML VIAL 10 MG IVPUSH (20:04)
--- NOTE | 2024-01-02 20:04 | PC.NURSE ---
10 mg Labetalol adminitered IVP for 204/82 BP
[2024-01-02 20:19] LABS: Venous Blood Gas Refer to POC result
[2024-01-02 20:19] LABS: VBG Base Excess 12.1 mmol/L; VBG HCO3 38 mmol/L (22-26); VBG pCO2 59 mmHg; VBG pH 7.42 (7.32-7.43); VBG pO2 64 mmHg
[2024-01-02 20:20] LABS: Prothrombin Time 12.1 SEC (11.1-13.3)
[2024-01-02] MEDS: LORazepam 2 MG/ML VIAL IVPUSH (20:21)
--- NOTE | 2024-01-02 20:21 | PC.NURSE ---
Pt with facial twitching and right foot twitching noted. 2mg Ativan administered IVP per verbal order from Dr. Dixon.
[2024-01-02] MEDS: iohexoL 350 MG/ML 100 ML INFUS..BTL IV (20:25)
[2024-01-02 20:32] LABS: MANUAL DIFF FLAG NO
[2024-01-02] MEDS: levETIRAcetam in NaCl (iso-os) 1,500 MG/100 ML PIGGYBACK 400 MG IV (20:33)
[2024-01-02 20:34] LABS: Basophils Percent Auto 0.3 % (0-2); Eosinophils Absolute Auto 0.1 X10*3/uL (0.0-0.4); Eosinophils Percent Auto 1.1 % (0-4); Hematocrit 28.8 % (37.0-47.0); Hemoglobin 9.3 g/dl (12.0-16.0); Imm Gran Abs Auto 0.02 X10*3/uL (0.00-0.03); Imm Gran Pct Auto 0.3 % (0.0-0.4); Lymphocytes Absolute Auto 1.5 X10*3/uL (1.2-4.9); Lymphocytes Percent Auto 19.6 % (20-40); Mean Corpuscular HGB Conc 32.3 g/dl (31.0-35.0); Mean Corpuscular Hemoglobin 27.6 pg (27.0-33.0); Mean Corpuscular Volume 85.5 fL (80.0-98.0); Mean Platelet Volume 9.6 fL (9.4-12.3); Monocytes Absolute Auto 0.9 X10*3/uL (0.1-1.2); Monocytes Percent Auto 12.4 % (2-11); Neutrophils Absolute Auto 5.1 x10*3/uL (2.0-8.3); Neutrophils Percent Auto 66.3 % (45-73); Platelet Count 296 X10*3/uL (160-400); Red Blood Count 3.37 X10*6/uL (4.20-5.50); Red Cell Distribution Width 14.4 % (11.0-16.0); White Blood Count 7.6 X10*3/uL (4.8-10.8)
[2024-01-02 20:34] LABS: Ammonia 29 umol/L (13-55)
--- NOTE | 2024-01-02 20:37 | PC.NURSE ---
Pt straight cathed per sterile technique and hospital policy. Yellow urine returned. Collected and sent to lab.
[2024-01-02 20:48] LABS: Troponin-I High Sensitivity 3.7 ng/L (<3.5-17.0)
[2024-01-02 20:48] LABS: Appearance Urine Clear; Color Urine Yellow; Glucose Urine UA Negative (Negative); Leukocyte Esterase Urine Small (1+) (Negative); Nitrite Urine Negative (Negative); Specific Gravity - Urine >= 1.030 (1.005-1.025); UMIC TRIGGER UACC YES; Urine Blood Negative (Negative); Urine Ketones Negative (Negative); Urine Protein Trace mg/dL (Neg-Trace)
[2024-01-02 20:50] LABS: Alanine Aminotransferase 9 U/L (0-31); Albumin Level 4.6 g/dL (3.5-5.0); Alkaline Phosphatase 86 U/L (39-117); Anion Gap 15 (12-20); Aspartate Amino Transferase 19 U/L (5-31); Bilirubin Direct 0.1 mg/dL (0.0-0.5); Bilirubin Total 0.3 mg/dL (0.0-1.0); Blood Urea Nitrogen 5 mg/dL (9-16); Carbon Dioxide 34 mmol/L (22-29); Chloride 87 mmol/L (96-108); Creatinine Clr Calc Pharmacy 64.9; Estimated Glomerular Filt Rate > 60; Ethanol < 10 mg/dL; Glucose Random 114 mg/dL (60-115); Magnesium 1.6 mg/dL (1.6-2.6); Potassium 3.6 mmol/L (3.3-5.1); Sodium 132 mmol/L (135-145); Total Protein 7.8 g/dL (6.5-8.0)
[2024-01-02 20:53] LABS: Lactic Acid 3.4 mmol/L (0.5-2.0)
[2024-01-02 20:54] LABS: Bacteria Urine None Seen (None Seen); Hyaline Casts Urine 0-2 /LPF (0-2); RBC Urine 0-2 /HPF (0-2); Squamous Epithelial Cell Urine 0-2 /HPF (0-2); UACC Culture Trigger YES; WBC Urine 21-50 /HPF (0-5)
[2024-01-02 21:04] LABS: Amphetamine Screen Urine Not Detected (Not Detect); Barbiturates, Urine Not Detected (Not Detect); Benzodiazepines Screen Urine Not Detected (Not Detect); Buprenorphine Scr Not Detected (Not Detect); Cannabinoid Screen Urine POSITIVE (Not Detect); Cocaine Screen Urine Not Detected (Not Detect); Fentanyl, urine Not Detected (Not Detect); Methadone Screen, Urine Not Detected (Not Detect); Opiate Screen Urine Not Detected (Not Detect); Oxycodone Screen Urine Not Detected (Not Detect); Phencyclidine Screen Urine Not Detected (Not Detect)
[2024-01-02 21:14] LABS: Influenza A PCR NEGATIVE (Negative); Influenza B PCR NEGATIVE (Negative); Resp Syncy Virus RNA Qual PCR NEGATIVE (Negative); SARS COV2 PCR INHOUSE NEGATIVE (Negative)
--- NOTE | 2024-01-02 21:20 | ED_ITS ---
HPI - Neuro Symptoms/Deficit General Chief Complaint: Stroke Stated Complaint: CVA SYMPTOMS Time Seen by Provider: 01/02/24 19:58 Source: EMS Mode of arrival: EMS Limitations: other History of Present Illness HPI Narrative: Patient comes to emergency room via ambulance for possible stroke versus seizure. According to EMS, the patient's daughter reported that at 19:00, patient had difficulty speaking and finding words. Back in May, patient had the same presentation, brought to the emergency room, diagnosed with seizures. Here in the emergency room, patient seems very confused, unable to follow any commands. Patient has residual right-sided weakness in upper and lower extremities due to previous CVAs in 2016. Related Data Home Medications ?Medication ?Instructions ?Recorded ?Confirmed ascorbic acid (vitamin C) 250 mg 250 mg PO DAILY 12/30/23 tablet Previous Rx's ?Medication ?Instructions ?Recorded ipratropium 0.5 mg-albuterol 3 mg 3 ml inhalation TID PRN shortness 09/16/23 (2.5 mg base)/3 mL nebulization of breath #180 mL soln aspirin 81 mg tablet,delayed 81 mg PO DAILY #90 tabs 09/22/23 release (Adult Low Dose Aspirin) folic acid 1 mg tablet 1 mg PO DAILY #90 tabs 09/22/23 levetiracetam 500 mg tablet 500 mg PO BID Seizures 90 days 09/22/23 #180 tabs metoprolol tartrate 25 mg tablet 25 mg PO BID 90 days #180 tabs 09/22/23 omeprazole 20 mg capsule,delayed 20 mg PO DAILY@0630 Acid reflux 09/22/23 release #90 caps docusate sodium 100 mg capsule 100 mg PO DAILY PRN Constipation 09/29/23 #30 caps ferrous sulfate 324 mg (65 mg 324 mg PO BIDWM #60 tabs 09/29/23 iron) tablet,delayed release polyethylene glycol 3350 17 gram 17 g PO DAILY #30 ea 09/29/23 oral powder packet enoxaparin 40 mg/0.4 mL 40 mg (0.4 mL) subcut Q24H #4 mL 10/11/23 subcutaneous syringe albuterol sulfate 90 mcg/actuation 2 puff PO Q6H PRN bronchospasm 30 12/26/23 aerosol inhaler days #6.7 grams amlodipine 5 mg tablet 5 mg PO DAILY 90 days #90 tabs 12/26/23 atorvastatin 40 mg tablet 40 mg PO BEDTIME Cholesterol #90 12/26/23 tabs mirtazapine 30 mg tablet 30 mg PO BEDTIME 90 days #90 tabs 12/26/23 sertraline 25 mg tablet 25 mg PO DAILY Depression #90 tabs 12/26/23 Allergies Allergy/AdvReac Type Severity Reaction Status Date / Time crab Allergy Unknown Hives Verified 01/02/24 19:59 penicillin V Allergy Unknown hives Verified 01/02/24 19:59 Penicillins [PENICILLINS] Allergy Unknown hives Verified 01/02/24 19:59 SEASONAL ALLERGIES Allergy Mild RUNNY NOSE Uncoded 01/02/24 19:59 Review of Systems 2 Review of Systems: Yes Unobtainable due to mental condition [facility] Past Medical History Medical History Hemoptysis Closed subcapital fracture of femur Supplemental oxygen dependent Coronary artery disease COPD (chronic obstructive pulmonary disease) History of acute respiratory distress syndrome (ARDS) (~08/2021) Seizure (~11/2021) History of non-ST elevation myocardial infarction (NSTEMI) (~11/2021) History of multiple cerebrovascular accidents (CVAs) Nicotine dependence, cigarettes, uncomplicated Cocaine abuse Respiratory failure with hypoxia Normocytic anemia History of drug abuse Major depression, recurrent Oxygen dependent Takotsubo cardiomyopathy Cocaine abuse Acute CHF (congestive heart failure) Hypercapnic respiratory failure, chronic Hemiparesis affecting right side as late effect of cerebrovascular accident Asymptomatic carotid artery stenosis with infarction Chronic GERD Environmental allergies Anxiety, generalized Lipid disorder Asthma, moderate Surgical History History of left-sided carotid endarterectomy (~09/2012) History of tonsillectomy and adenoidectomy Family History Family History Father Substance abuse Mother Brain cancer Maternal Grandfather History of heart attack Maternal Grandmother History of heart attack Paternal Grandfather No problems noted. Paternal Grandmother No problems noted. Brother No problems noted. Brother No problems noted. Son No problems noted. Daughter No problems noted. Other Mental health disorder Social History Social History Household Members: Children Housing: [facility] Do you presently have visiting nurse or other home services: No Unable to assess alcohol history related to: Refusing to respond Alcohol intake: former Patient Tobacco Use Status: Former Tobacco user Tobacco use type: Cigarette Cigarettes Per Day: 2 Years Smoked: COUPLE YEAR AGO PER PT e-Cigarette/Vaping Use: Never Used Second Hand Smoke Exposure: No Advance Directives Date on File: 11/25/21 Do you have a plan to hurt others: No Plan service: No Current occupational status: disabled Cognitive needs: No Hearing needs: No Vision needs: No Physical Exam 2 Vital Signs: Vital Signs: Last Vital Signs Pulse 80 01/02/24 21:09 Resp 17 01/02/24 21:09 BP 93/45 L 01/02/24 21:09 Pulse Ox 100 01/02/24 21:09 O2 Del Method Nasal Cannula 01/02/24 21:09 O2 Flow Rate 4 01/02/24 21:09 BMI result Body Mass Index 18.1 Const: Other: Appearance: Alert. Oriented, very confused, seems postictal Eyes: Pupils equal, round and reactive to light. ENT: Pharynx normal. Neck: Normal inspection. Neck supple. No lymph nodes noted. No crepitus CVS: Normal heart rate and rhythm. Pulses normal. Normal S1 and S2 Respiratory: No respiratory distress. Breath sounds normal. No Wheezing. No rales Abdomen: Soft and nontender. No rigidity. No distention. Skin: Skin warm and dry. Normal skin color. Normal skin turgor. Extremities: No lower extremity edema. No Lacerations. No Rash Neuro: Chronic right upper and lower extremity deficit due to chronic CVA in 2016 Psych: Seems anxious Course Course Course Narrative: -on arrival, patient's oxygen saturation was noted to be 60% on room air. Patient was taken to the room. It was noted that she was transported without oxygen, patient is O2 dependent, uses 3 L -wants her 3 L were started, oxygen saturation was increased to 95%. -patient was taken to CT scan and CTA for stroke protocol. While she was in the CT scan, patient had a tonic-clonic seizure for which she received 2 mg of IV Ativan. -the seizure stopped, patient now somnolent -patient's NIH score difficult to calculate, patient seems postictal, confused, not following commands. Additionally, patient has residual right hemiparesis of upper and lower extremity due to previous seizures. Medications Administered Discontinued Medications Generic Name Dose Route Start Last Admin Trade Name Patricio PRN Reason Stop Dose Admin Levetiracetam 1,500 mg in 100 mls @ 400 mls/hr 01/02/24 20:24 01/02/24 20:48 Keppra IV 01/02/24 20:38 Infused ONCE ONE Infusion Iohexol 100 ml 01/02/24 20:23 01/02/24 20:25 Iohexol 350 Mg/Ml 100 Ml Infus..Btl IV 01/02/24 20:24 70 ml ONCE ONE Administration Labetalol HCl 10 mg 01/02/24 20:00 01/02/24 20:04 Labetalol Hcl 100 Mg/20 Ml Vial IVPUSH 01/02/24 20:01 10 mg ONCE ONE Administration Lorazepam 2 mg 01/02/24 20:20 01/02/24 20:21 Lorazepam 2 Mg/Ml Vial IVPUSH 01/02/24 20:21 2 mg ONCE ONE Administration Medical Decision Making Medical Decision Making MDM Narrative: -I discussed the CT scan and CTA with Dr. Hampton from [place] [facility]: No new findings on CT or CTA. Patient known to have previous CVAs. -my interpretation of labs: Hematology at baseline, patient's sodium slightly decreased at 132, lactic acid 3.4 likely secondary to seizure, sepsis not suspected. Normal LFTs magnesium and troponin. -patient's presentation likely secondary to being postictal from a seizure. -I reviewed patient's medical records from her previous visit in May of 2023, patient had the same presentation with dysphagia, dysarthria secondary to a seizure rather than CVA. -patient received Keppra IV 1500 mg in addition to the 2 mg of Ativan to stop the seizure -on arrival, patient's blood pressure 204/82, patient received 10 mg IV of labetalol for hypertensive emergency, possible hypertensive encephalopathy -patient receiving IV fluids for mild hyponatremia, patient's blood pressure decreased to 93/45 secondary to the labetalol mentioned above. -I discussed the patient with Dr. Murphy, patient being admitted - Differential Diagnosis Differential Diagnoses: The differential diagnosis associated with the presentation includes (As above) Admission/Observation Consideration of admission/observation: Escalation of care including admission/observation considered Consult Healthcare Provider Management of the patient was discussed with: Hospitalist Lab Data MDM Lab Attestation statement: I reviewed the patient's lab results. 01/02/24 20:26 01/02/24 20:05 Labs: Lab Results 01/02/24 01/02/24 01/02/24 Range/Units 19:55 20:05 20:06 WBC (4.8-10.8) X10*3/uL RBC (4.20-5.50) X10*6/uL Hgb (12.0-16.0) g/dl Hct (37.0-47.0) % MCV (80.0-98.0) fL MCH (27.0-33.0) pg MCHC (31.0-35.0) g/dl RDW (11.0-16.0) % Plt Count (160-400) X10*3/uL MPV (9.4-12.3) fL Immature Gran % (Auto) (0.0-0.4) % Neut % (Auto) (45-73) % Lymph % (Auto) (20-40) % Stephenson % (Auto) (2-11) % Eos % (Auto) (0-4) % Baso % (Auto) (0-2) % Lymph # (Auto) (1.2-4.9) X10*3/uL Stephenson # (Auto) (0.1-1.2) X10*3/uL Eos # (Auto) (0.0-0.4) X10*3/uL Baso # (Auto) (0.0-0.2) X10*3/uL Abs Immat Gran (auto) (0.00-0.03) X10*3/uL Absolute Neuts (auto) (2.0-8.3) x10*3/uL Absolute Nucleated RBC (0.0-0.012) X10*3/uL Nucleated RBC % (auto) (0.0-0.2) /100WBC PT 12.1 (11.1-13.3) SEC INR 1.0 (0.9-1.1) VBG pH (7.32-7.43) VBG pCO2 mmHg VBG pO2 mmHg VBG HCO3 (22-26) mmol/L VBG O2 Saturation % VBG Base Excess mmol/L Sodium 132 L (135-145) mmol/L Potassium 3.6 D (3.3-5.1) mmol/L Chloride 87 L (96-108) mmol/L Carbon Dioxide 34 H (22-29) mmol/L Anion Gap 15 (12-20) BUN 5 L (9-16) mg/dL Creatinine 0.60 (0.5-1.4) mg/dL Estim Creat Clear Calc 64.9 Estimated GFR > 60 POC Glucose 118 H (60-115) mg/dL Random Glucose 114 (60-115) mg/dL Lactic Acid (0.5-2.0) mmol/L Calcium 10.0 (8.4-10.2) mg/dL Magnesium 1.6 (1.6-2.6) mg/dL Total Bilirubin 0.3 (0.0-1.0) mg/dL Direct Bilirubin 0.1 (0.0-0.5) mg/dL AST 19 (5-31) U/L ALT 9 (0-31) U/L Alkaline Phosphatase 86 (39-117) U/L Ammonia 29 (13-55) umol/L Troponin I High Sens 3.7 D (<3.5-17.0) ng/L Total Protein 7.8 (6.5-8.0) g/dL Albumin 4.6 (3.5-5.0) g/dL Urine Color Urine Appearance Urine pH (5.0-9.0) Ur Specific Nathrop (1.005-1.025) Urine Protein (Neg-Trace) mg/dL Urine Glucose (UA) (Negative) mg/dL Urine Ketones (Negative) mg/dL Urine Blood (Negative) Urine Nitrite (Negative) Ur Leukocyte Esterase (Negative) Urine RBC (0-2) /HPF Urine WBC (0-5) /HPF Ur Squamous Epith Cells (0-2) /HPF Urine Bacteria (None Seen) Hyaline Casts (0-2) /LPF Urine Opiates Screen (Not Detect) Ur Buprenorphine Scrn (Not Detect) ng/mL Ur Oxycodone Screen (Not Detect) ng/mL Urine Methadone Screen (Not Detect) ng/mL Urine Fentanyl Screen (Not Detect) Ur Barbiturates Screen (Not Detect) Ur Phencyclidine Scrn (Not Detect) Ur Amphetamines Screen (Not Detect) U Benzodiazepines Scrn (Not Detect) Urine Cocaine Screen (Not Detect) U Marijuana (THC) Screen (Not Detect) Ethyl Alcohol < 10 mg/dL Influenza Type A (PCR) NEGATIVE (Negative) Influenza Type B (PCR) NEGATIVE (Negative) RSV RNA Qual (PCR) NEGATIVE (Negative) SARS-CoV-2 RNA (RT-PCR) NEGATIVE (Negative) 01/02/24 01/02/24 01/02/24 Range/Units 20:11 20:26 20:28 WBC 7.6 (4.8-10.8) X10*3/uL RBC 3.37 L (4.20-5.50) X10*6/uL Hgb 9.3 L (12.0-16.0) g/dl Hct 28.8 L (37.0-47.0) % MCV 85.5 (80.0-98.0) fL MCH 27.6 (27.0-33.0) pg MCHC 32.3 (31.0-35.0) g/dl RDW 14.4 (11.0-16.0) % Plt Count 296 D (160-400) X10*3/uL MPV 9.6 (9.4-12.3) fL Immature Gran % (Auto) 0.3 (0.0-0.4) % Neut % (Auto) 66.3 (45-73) % Lymph % (Auto) 19.6 L (20-40) % Stephenson % (Auto) 12.4 H (2-11) % Eos % (Auto) 1.1 (0-4) % Baso % (Auto) 0.3 (0-2) % Lymph # (Auto) 1.5 (1.2-4.9) X10*3/uL Stephenson # (Auto) 0.9 (0.1-1.2) X10*3/uL Eos # (Auto) 0.1 (0.0-0.4) X10*3/uL Baso # (Auto) 0.0 (0.0-0.2) X10*3/uL Abs Immat Gran (auto) 0.02 (0.00-0.03) X10*3/uL Absolute Neuts (auto) 5.1 (2.0-8.3) x10*3/uL Absolute Nucleated RBC 0.000 (0.0-0.012) X10*3/uL Nucleated RBC % (auto) 0.0 (0.0-0.2) /100WBC PT (11.1-13.3) SEC INR (0.9-1.1) VBG pH 7.42 (7.32-7.43) VBG pCO2 59 mmHg VBG pO2 64 mmHg VBG HCO3 38 H (22-26) mmol/L VBG O2 Saturation 93.0 % VBG Base Excess 12.1 mmol/L Sodium (135-145) mmol/L Potassium (3.3-5.1) mmol/L Chloride (96-108) mmol/L Carbon Dioxide (22-29) mmol/L Anion Gap (12-20) BUN (9-16) mg/dL Creatinine (0.5-1.4) mg/dL Estim Creat Clear Calc Estimated GFR POC Glucose (60-115) mg/dL Random Glucose (60-115) mg/dL Lactic Acid 3.4 H* (0.5-2.0) mmol/L Calcium (8.4-10.2) mg/dL Magnesium (1.6-2.6) mg/dL Total Bilirubin (0.0-1.0) mg/dL Direct Bilirubin (0.0-0.5) mg/dL AST (5-31) U/L ALT (0-31) U/L Alkaline Phosphatase (39-117) U/L Ammonia (13-55) umol/L Troponin I High Sens (<3.5-17.0) ng/L Total Protein (6.5-8.0) g/dL Albumin (3.5-5.0) g/dL Urine Color Urine Appearance Urine pH (5.0-9.0) Ur Specific N[place] (1.005-1.025) Urine Protein (Neg-Trace) mg/dL Urine Glucose (UA) (Negative) mg/dL Urine Ketones (Negative) mg/dL Urine Blood (Negative) Urine Nitrite (Negative) Ur Leukocyte Esterase (Negative) Urine RBC (0-2) /HPF Urine WBC (0-5) /HPF Ur Squamous Epith Cells (0-2) /HPF Urine Bacteria (None Seen) Hyaline Casts (0-2) /LPF Urine Opiates Screen (Not Detect) Ur Buprenorphine Scrn (Not Detect) ng/mL Ur Oxycodone Screen (Not Detect) ng/mL Urine Methadone Screen (Not Detect) ng/mL Urine Fentanyl Screen (Not Detect) Ur Barbiturates Screen (Not Detect) Ur Phencyclidine Scrn (Not Detect) Ur Amphetamines Screen (Not Detect) U Benzodiazepines Scrn (Not Detect) Urine Cocaine Screen (Not Detect) U Marijuana (THC) Screen (Not Detect) Ethyl Alcohol mg/dL Influenza Type A (PCR) (Negative) Influenza Type B (PCR) (Negative) RSV RNA Qual (PCR) (Negative) SARS-CoV-2 RNA (RT-PCR) (Negative) 01/02/24 Range/Units 20:37 WBC (4.8-10.8) X10*3/uL RBC (4.20-5.50) X10*6/uL Hgb (12.0-16.0) g/dl Hct (37.0-47.0) % MCV (80.0-98.0) fL MCH (27.0-33.0) pg MCHC (31.0-35.0) g/dl RDW (11.0-16.0) % Plt Count (160-400) X10*3/uL MPV (9.4-12.3) fL Immature Gran % (Auto) (0.0-0.4) % Neut % (Auto) (45-73) % Lymph % (Auto) (20-40) % Stephenson % (Auto) (2-11) % Eos % (Auto) (0-4) % Baso % (Auto) (0-2) % Lymph # (Auto) (1.2-4.9) X10*3/uL Stephenson # (Auto) (0.1-1.2) X10*3/uL Eos # (Auto) (0.0-0.4) X10*3/uL Baso # (Auto) (0.0-0.2) X10*3/uL Abs Immat Gran (auto) (0.00-0.03) X10*3/uL Absolute Neuts (auto) (2.0-8.3) x10*3/uL Absolute Nucleated RBC (0.0-0.012) X10*3/uL Nucleated RBC % (auto) (0.0-0.2) /100WBC PT (11.1-13.3) SEC INR (0.9-1.1) VBG pH (7.32-7.43) VBG pCO2 mmHg VBG pO2 mmHg VBG HCO3 (22-26) mmol/L VBG O2 Saturation % VBG Base Excess mmol/L Sodium (135-145) mmol/L Potassium (3.3-5.1) mmol/L Chloride (96-108) mmol/L Carbon Dioxide (22-29) mmol/L Anion Gap (12-20) BUN (9-16) mg/dL Creatinine (0.5-1.4) mg/dL Estim Creat Clear Calc Estimated GFR POC Glucose (60-115) mg/dL Random Glucose (60-115) mg/dL Lactic Acid (0.5-2.0) mmol/L Calcium (8.4-10.2) mg/dL Magnesium (1.6-2.6) mg/dL Total Bilirubin (0.0-1.0) mg/dL Direct Bilirubin (0.0-0.5) mg/dL AST (5-31) U/L ALT (0-31) U/L Alkaline Phosphatase (39-117) U/L Ammonia (13-55) umol/L Troponin I High Sens (<3.5-17.0) ng/L Total Protein (6.5-8.0) g/dL Albumin (3.5-5.0) g/dL Urine Color Yellow Urine Appearance Clear Urine pH 6.0 (5.0-9.0) Ur Specific Nath[place] >= 1.030 H (1.005-1.025) Urine Protein Trace (Neg-Trace) mg/dL Urine Glucose (UA) Negative (Negative) mg/dL Urine Ketones Negative (Negative) mg/dL Urine Blood Negative (Negative) Urine Nitrite Negative (Negative) Ur Leukocyte Esterase Small (1+) H (Negative) Urine RBC 0-2 (0-2) /HPF Urine WBC 21-50 H (0-5) /HPF Ur Squamous Epith Cells 0-2 (0-2) /HPF Urine Bacteria None Seen (None Seen) Hyaline Casts 0-2 (0-2) /LPF Urine Opiates Screen Not Detected (Not Detect) Ur Buprenorphine Scrn Not Detected (Not Detect) ng/mL Ur Oxycodone Screen Not Detected (Not Detect) ng/mL Urine Methadone Screen Not Detected (Not Detect) ng/mL Urine Fentanyl Screen Not Detected (Not Detect) Ur Barbiturates Screen Not Detected (Not Detect) Ur Phencyclidine Scrn Not Detected (Not Detect) Ur Amphetamines Screen Not Detected (Not Detect) U Benzodiazepines Scrn Not Detected (Not Detect) Urine Cocaine Screen Not Detected (Not Detect) U Marijuana (THC) Screen POSITIVE H (Not Detect) Ethyl Alcohol mg/dL Influenza Type A (PCR) (Negative) Influenza Type B (PCR) (Negative) RSV RNA Qual (PCR) (Negative) SARS-CoV-2 RNA (RT-PCR) (Negative) Independent Interpretation I performed an independent interpretation of an: CT Scan Radiology Impression Discussion of test interpretation with radiology: I have reviewed the radiologist's reading. Radiologist Impression: CT Head: Please refer to report from immediately preceding noncontrast head CT. No abnormal intracranial enhancement. CT Neck: The thyroid gland and remaining cervical soft tissues are within normal limits. Multilevel cervical spondylosis. CT Upper Chest: Mild smooth intralobular septal thickening which may reflect interstitial edema. No focal or pulmonary consolidation. Visualized upper mediastinum is within normal limits. Neck CTA: Aortic Arch: Normal contour and caliber. Classic 3 vessel branching pattern of the aortic arch. Great Vessel Origins: No significant stenosis of the branch origins. Right Common Carotid Artery: No focal stenosis or occlusion. Cervical Right Internal Carotid Artery: Calcific atherosclerotic disease of the carotid bulb and proximal internal carotid artery causing less than 50% stenosis. Stable mild to moderate stenosis of a tortuous portion of the distal cervical right ICA with poststenotic dilatation of the distalmost right cervical ICA. Left Common Carotid Artery: Chronically occluded just distal to its origin. Cervical Left Internal Carotid Artery: Stable absent contrast filling throughout the neck. Cervical Right Vertebral Artery: No focal stenosis or occlusion. Cervical Left Vertebral Artery: No focal stenosis or occlusion. Brain CTA: CTA of the head is somewhat technically limited secondary to extensive venous contamination. Intracranial Internal Carotid Arteries: Mild calcified atherosclerotic disease of the cavernous and supraclinoid right ICA without significant luminal narrowing. Stable thready reconstitution of the left supraclinoid ICA and carotid terminus with preserved left A1 and M1 origins. Right Anterior Cerebral Artery: Normal A1 segment. Normal opacification of the distal RIKY segments. Left Anterior Cerebral Artery: Normal A1 segment. Normal opacification of the distal RIKY segments. Anterior Communicating Artery: Normal. Right Middle Cerebral Artery: Normal M1 segment of the MCA without focal stenosis or occlusion. Normal arborization of the distal segments. Left Middle Cerebral Artery: Normal M1 segment of the MCA without focal stenosis or occlusion. Normal arborization of the distal segments. Right Vertebral Artery: Normal V4 segment. Left Vertebral Artery: Normal V4 segment. Basilar Artery: Normal without focal stenosis or occlusion. Normal appearance of the proximal superior cerebellar arteries. Right Posterior Cerebral Artery: Normal P1 segment. Normal opacification of the distal N[employer] SERVICES ASSISTANT segments. Left Posterior Cerebral Artery: Normal P1 segment. Normal opacification of the distal N[employer] SERVICES ASSISTANT segments. Normal opacification of the superior sagittal, straight, transverse, and sigmoid sinuses. CT/CT angio head neck stroke IMPRESSION: No new or progressive arterial high-grade stenosis or large vessel occlusion in the head or neck. Stable occlusion of the left common carotid artery just past its origin with absent contrast filling of the majority of the left ICA and intracranial reconstitution of the left carotid terminus and A1 and M1 origins. NIH Stroke Scale Internal: Initial- Upon Arrival Level of Consciousness: Alert Level of Consciousness Questions: Answers neither question correctly Level of Consciousness Commands: Performs neither task correctly Best Gaze: Normal Visual: No visual loss (Not answering questions) Facial Palsy: Normal Motor Arm (Right): Drift Motor Arm (Left): Drift Motor Leg (Right): No drift Motor Leg (Left): No drift Best Language: Mild to moderate aphasia Dysarthia: Mild to moderate dysarthria Critical Care Time Critical Care Time Critical Care Time: Yes Total Critical Care Time: 75 Attestation: I have personally provided critical care time. Time includes review of lab data, radiology results, discussion with consultants, and monitoring for potential decompensation. Intervention performed as documented. Discharge Plan Discharge Clinical Impression: Seizure, Hypertensive emergency, Acute hyponatremia Patient Disposition: Admitted As Inpatient Prescriptions: No Action ipratropium-albuterol 0.5 mg-3 mg(2.5 mg base)/3 mL solution for nebulization 3 ml inhalation TID PRN (Reason: shortness of breath) Qty: 180 0RF albuterol sulfate 90 mcg/actuation HFA aerosol inhaler 2 puff PO Q6H PRN (Reason: bronchospasm) 30 Days Qty: 6.7 5RF amlodipine 5 mg tablet 5 mg PO DAILY 90 Days Qty: 90 0RF atorvastatin 40 mg tablet 40 mg PO BEDTIME Qty: 90 0RF mirtazapine 30 mg tablet 30 mg PO BEDTIME 90 Days Qty: 90 0RF sertraline 25 mg tablet 25 mg PO DAILY Qty: 90 0RF polyethylene glycol 3350 17 gram Powder In Packet 17 g PO DAILY Qty: 30 0RF docusate sodium 100 mg Capsule 100 mg PO DAILY PRN (Reason: Constipation) Qty: 30 0RF ferrous sulfate 324 mg (65 mg iron) Tablet,Delayed Release (Dr/Ec) 324 mg PO BIDWM Qty: 60 0RF enoxaparin 40 mg/0.4 mL Syringe 40 mg subcut Q24H Qty: 4 0RF aspirin [Adult Low Dose Aspirin] 81 mg tablet,delayed release (DR/EC) 81 mg PO DAILY Qty: 90 0RF folic acid 1 mg tablet 1 mg PO DAILY Qty: 90 0RF levetiracetam 500 mg tablet 500 mg PO BID 90 Days Qty: 180 0RF metoprolol tartrate 25 mg tablet 25 mg PO BID 90 Days Qty: 180 0RF omeprazole 20 mg capsule,delayed release(DR/EC) 20 mg PO DAILY@0630 Qty: 90 0RF ascorbic acid (vitamin C) 250 mg tablet 250 mg PO DAILY Print Language: Vincentian
--- NOTE | 2024-01-02 21:27 | PM.IMHP ---
History of Present Illness Date of Service: 01/02/24 Chief Complaint: Slurred speech This is a 58-year-old female with pertinent history of chronic hypoxemic respiratory failure on 3 L supplemental oxygen, essential hypertension, CVA with residual right-sided hemiparesis, seizure disorder, coronary artery disease, mood disorder, takotsubo cardiomyopathy who presents to the emergency department for evaluation of difficulty in speech. Unable to obtain history from the patient. History obtained from ER provider and chart review. As per the daughter, patient had difficulty with speech and word-finding. The daughter stated that patient had a similar presentation in May when she was diagnosed with seizures. Patient has residual right-sided weakness due to CVA in 2015. Unable to obtain review of systems. In the emergency department, initial blood pressure was found to be 204/82. Patient apparently had an episode of seizure while in CT scan. Patient received 2 mg IV Ativan, 1500 mg IV Keppra and 20 mg labetalol in the ER Review of Systems Review of Systems: Yes Unobtainable due to mental status [facility] Medical History Hemoptysis Closed subcapital fracture of femur Supplemental oxygen dependent Coronary artery disease COPD (chronic obstructive pulmonary disease) History of acute respiratory distress syndrome (ARDS) (~08/2021) Seizure (~11/2021) History of non-ST elevation myocardial infarction (NSTEMI) (~11/2021) History of multiple cerebrovascular accidents (CVAs) Nicotine dependence, cigarettes, uncomplicated Cocaine abuse Respiratory failure with hypoxia Normocytic anemia History of drug abuse Major depression, recurrent Oxygen dependent Takotsubo cardiomyopathy Cocaine abuse Acute CHF (congestive heart failure) Hypercapnic respiratory failure, chronic Hemiparesis affecting right side as late effect of cerebrovascular accident Asymptomatic carotid artery stenosis with infarction Chronic GERD Environmental allergies Anxiety, generalized Lipid disorder Asthma, moderate Family History Father Substance abuse Mother Brain cancer Maternal Grandfather History of heart attack Maternal Grandmother History of heart attack Paternal Grandfather No problems noted. Paternal Grandmother No problems noted. Brother No problems noted. Brother No problems noted. Son No problems noted. Daughter No problems noted. Other Mental health disorder Surgical History History of left-sided carotid endarterectomy (~09/2012) History of tonsillectomy and adenoidectomy Social History Household Members: Children [facility] Do you presently have visiting nurse or other home services: No Unable to assess alcohol history related to: Refusing to respond Alcohol intake: former Patient Tobacco Use Status: Former Tobacco user Tobacco use type: Cigarette Cigarettes Per Day: 2 Years Smoked: COUPLE YEAR AGO PER PT e-Cigarette/Vaping Use: Never Used Second Hand Smoke Exposure: No Advance Directives: Yes Advance Directives on File: Yes Advance Directives Date on File: 11/25/21 Do you have a plan to hurt others: No Plan service: No Current occupational status: disabled Cognitive needs: No Hearing needs: No Vision needs: No Meds Allergies Allergy/AdvReac Type Severity Reaction Status Date / Time crab Allergy Unknown Hives Verified 01/02/24 19:59 penicillin V Allergy Unknown hives Verified 01/02/24 19:59 Penicillins [PENICILLINS] Allergy Unknown hives Verified 01/02/24 19:59 SEASONAL ALLERGIES Allergy Mild RUNNY NOSE Uncoded 01/02/24 19:59 Home Medications ?Medication ?Instructions ?Recorded ?Confirmed ?Last Taken ?Type ascorbic acid (vitamin C) 250 mg 250 mg PO DAILY 12/30/23 Unknown History tablet Physical Exam Vital Signs and Narrative: Vital Signs: Last Vital Signs Pulse 80 01/02/24 21:09 Resp 17 01/02/24 21:09 BP 93/45 L 01/02/24 21:09 Pulse Ox 100 01/02/24 21:09 O2 Del Method Nasal Cannula 01/02/24 21:09 O2 Flow Rate 4 01/02/24 21:09 BMI result Body Mass Index 18.1 Middle-aged female lying in bed in no distress Neck supple, no JVD Regular rate and rhythm, S1-S2 heard Regular breath sounds bilaterally, no wheezing or crackles appreciated Abdomen soft nontender, no guarding, no rigidity Patient is only eye opening to verbal stimulus, unable to have a conversation, unable to assess orientation, not following commands Psych: Drowsy No pedal edema Results Labs 01/02/24 20:26 01/02/24 20:05 Labs: Laboratory Results - last 24 hr 01/02/24 01/02/24 01/02/24 19:55 20:05 20:06 MCV MCH MCHC RDW Plt Count MPV Immature Gran % (Auto) Neut % (Auto) Lymph % (Auto) [place] % (Auto) Eos % (Auto) Baso % (Auto) Lymph # (Auto) [place] # (Auto) Eos # (Auto) Baso # (Auto) Abs Immat Gran (auto) Absolute Neuts (auto) Absolute Nucleated RBC Nucleated RBC % (auto) PT 12.1 INR 1.0 VBG pH VBG pCO2 VBG pO2 VBG HCO3 VBG O2 Saturation VBG Base Excess Anion Gap 15 Estim Creat Clear Calc 64.9 Estimated GFR > 60 POC Glucose 118 H Random Glucose 114 Lactic Acid Calcium 10.0 Magnesium 1.6 Total Bilirubin 0.3 Direct Bilirubin 0.1 AST 19 ALT 9 Alkaline Phosphatase 86 Ammonia 29 Troponin I High Sens 3.7 D Total Protein 7.8 Albumin 4.6 Urine Color Urine Appearance Urine pH Ur Specific [place] Urine Protein Urine Glucose (UA) Urine Ketones Urine Blood Urine Nitrite Ur Leukocyte Esterase Urine RBC Urine WBC Ur Squamous Epith Cells Urine Bacteria Hyaline Casts Urine Opiates Screen Ur Buprenorphine Scrn Ur Oxycodone Screen Urine Methadone Screen Urine Fentanyl Screen Ur Barbiturates Screen Ur Phencyclidine Scrn Ur Amphetamines Screen U Benzodiazepines Scrn Urine Cocaine Screen U Marijuana (THC) Screen Ethyl Alcohol < 10 Influenza Type A (PCR) NEGATIVE Influenza Type B (PCR) NEGATIVE RSV RNA Qual (PCR) NEGATIVE SARS-CoV-2 RNA (RT-PCR) NEGATIVE 01/02/24 01/02/24 01/02/24 20:11 20:26 20:28 MCV 85.5 MCH 27.6 MCHC 32.3 RDW 14.4 Plt Count 296 D MPV 9.6 Immature Gran % (Auto) 0.3 Neut % (Auto) 66.3 Lymph % (Auto) 19.6 L [place] % (Auto) 12.4 H Eos % (Auto) 1.1 Baso % (Auto) 0.3 Lymph # (Auto) 1.5 [place] # (Auto) 0.9 Eos # (Auto) 0.1 Baso # (Auto) 0.0 Abs Immat Gran (auto) 0.02 Absolute Neuts (auto) 5.1 Absolute Nucleated RBC 0.000 Nucleated RBC % (auto) 0.0 PT INR VBG pH 7.42 VBG pCO2 59 VBG pO2 64 VBG HCO3 38 H VBG O2 Saturation 93.0 VBG Base Excess 12.1 Anion Gap Estim Creat Clear Calc Estimated GFR POC Glucose Random Glucose Lactic Acid 3.4 H* Calcium Magnesium Total Bilirubin Direct Bilirubin AST ALT Alkaline Phosphatase Ammonia Troponin I High Sens Total Protein Albumin Urine Color Urine Appearance Urine pH Ur Specific [place] Urine Protein Urine Glucose (UA) Urine Ketones Urine Blood Urine Nitrite Ur Leukocyte Esterase Urine RBC Urine WBC Ur Squamous Epith Cells Urine Bacteria Hyaline Casts Urine Opiates Screen Ur Buprenorphine Scrn Ur Oxycodone Screen Urine Methadone Screen Urine Fentanyl Screen Ur Barbiturates Screen Ur Phencyclidine Scrn Ur Amphetamines Screen U Benzodiazepines Scrn Urine Cocaine Screen U Marijuana (THC) Screen Ethyl Alcohol Influenza Type A (PCR) Influenza Type B (PCR) RSV RNA Qual (PCR) SARS-CoV-2 RNA (RT-PCR) 01/02/24 20:37 MCV MCH MCHC RDW Plt Count MPV Immature Gran % (Auto) Neut % (Auto) Lymph % (Auto) [place] % (Auto) Eos % (Auto) Baso % (Auto) Lymph # (Auto) [place] # (Auto) Eos # (Auto) Baso # (Auto) Abs Immat Gran (auto) Absolute Neuts (auto) Absolute Nucleated RBC Nucleated RBC % (auto) PT INR VBG pH VBG pCO2 VBG pO2 VBG HCO3 VBG O2 Saturation VBG Base Excess Anion Gap Estim Creat Clear Calc Estimated GFR POC Glucose Random Glucose Lactic Acid Calcium Magnesium Total Bilirubin Direct Bilirubin AST ALT Alkaline Phosphatase Ammonia Troponin I High Sens Total Protein Albumin Urine Color Yellow Urine Appearance Clear Urine pH 6.0 Ur Specific [place] >= 1.030 H Urine Protein Trace Urine Glucose (UA) Negative Urine Ketones Negative Urine Blood Negative Urine Nitrite Negative Ur Leukocyte Esterase Small (1+) H Urine RBC 0-2 Urine WBC 21-50 H Ur Squamous Epith Cells 0-2 Urine Bacteria None Seen Hyaline Casts 0-2 Urine Opiates Screen Not Detected Ur Buprenorphine Scrn Not Detected Ur Oxycodone Screen Not Detected Urine Methadone Screen Not Detected Urine Fentanyl Screen Not Detected Ur Barbiturates Screen Not Detected Ur Phencyclidine Scrn Not Detected Ur Amphetamines Screen Not Detected U Benzodiazepines Scrn Not Detected Urine Cocaine Screen Not Detected U Marijuana (THC) Screen POSITIVE H Ethyl Alcohol Influenza Type A (PCR) Influenza Type B (PCR) RSV RNA Qual (PCR) SARS-CoV-2 RNA (RT-PCR) Imaging Radiologist's Impressions: Impressions Head CT 01/02/24 20:08 IMPRESSION: 1. No acute intracranial abnormality including hemorrhage, mass effect, hydrocephalus, or acute territorial edematous infarction. . 2. Chronic left MCA territory infarct Above impression was communicated to Dr. Dixon on 01/02/2024 8:26 PM Head/Neck CTA 01/02/24 20:25 IMPRESSION: No new or progressive arterial high-grade stenosis or large vessel occlusion in the head or neck. Stable occlusion of the left common carotid artery just past its origin with absent contrast filling of the majority of the left ICA and intracranial reconstitution of the left carotid terminus and A1 and M1 origins. Above impression was communicated to Dr Dixon on 01/02/2024 8:37 PM Assessment and Plan (1) Aphasia: Status: Acute Plan This is a 58-year-old female with pertinent history of chronic hypoxemic respiratory failure on 3 L supplemental oxygen, essential hypertension, CVA with residual right-sided hemiparesis, seizure disorder, coronary artery disease, mood disorder, takotsubo cardiomyopathy who presents to the emergency department for evaluation of difficulty in speech. #. Aphasia: Likely in the setting of seizure. Had a similar presentation in May 2023. Witnessed seizure episode in CT scan as per ER provider. IV Keppra given in the ER, will continue. Obtaining EEG and consulting Neurology. Obtaining MRI to rule out acute CVA. NPO until speech evaluation. Seizure precautions #. Moderate protein calorie malnutrition: Nutrition consult #. Coronary artery disease: On high-intensity statin, aspirin and beta-pedro #. History of CVA: On high-intensity statin and aspirin #. Seizure disorder: Will increase home Keppra in the setting of breakthrough seizure #. Gastroesophageal reflux disease: On PPI #. Mood disorder: On mirtazapine and sertraline #. Chronic anemia: On iron supplementation and folic acid #. Chronic hypoxemic respiratory failure due to COPD: No exacerbation during admission. On 3-4 L baseline home oxygen. #. Lactic acidosis due to seizure. No sepsis DVT prophylaxis: Lovenox Full code Admit as inpatient and will require two night minimum hospital stay for close monitoring of speech/mentation and evaluation of aphasia (as above), which is not possible in a lesser acute setting. Specialist consult pending Quality Stroke Does the patient have a stroke diagnosis?: No VTE Prior VTE?: No VTE Risk Level:: Medical - moderate - high VTE Device Contraindication: Treatment Not Indicated VTE Drug Contraindication: N/A - Med Ordered
[2024-01-02] MEDS: 0.9 % Sodium Chloride 1,000 ML 999 ML IVCONT (21:52)
[2024-01-02] MEDS: Enoxaparin Sodium 40 MG/0.4 ML SYRINGE SUBCUT (21:52)
[2024-01-02 22:31] LABS: Reflex Lactate? Lactic Acid Added
[2024-01-02 23:13] LABS: ~Lactic Acid-LAB USE ONLY 0.8 mmol/L (0.5-2.0)
--- NOTE | 2024-01-02 23:35 | PC.NURSE ---
unable to perform MRI checklist at this time.
[2024-01-02] MEDS: 0.9 % Sodium Chloride Flush 3 ML SYRINGE IVFLUSH (23:41)
[2024-01-03] VITALS (10 sets, daily range): BP systolic 107–151; BP diastolic 55–76; PULSE 76–92; RESP 16–20; TEMP 36.1–37.4; O2SAT 94–100; BMI 19.3
--- NOTE | 2024-01-03 01:51 | PC.NURSE ---
Pt cleansed of urinary incontinence.
[2024-01-03 06:54] LABS: MANUAL DIFF FLAG NO
[2024-01-03 06:58] LABS: Basophils Percent Auto 0.4 % (0-2); Eosinophils Absolute Auto 0.1 X10*3/uL (0.0-0.4); Eosinophils Percent Auto 1.2 % (0-4); Hematocrit 29.6 % (37.0-47.0); Hemoglobin 9.3 g/dl (12.0-16.0); Imm Gran Abs Auto 0.03 X10*3/uL (0.00-0.03); Imm Gran Pct Auto 0.4 % (0.0-0.4); Lymphocytes Absolute Auto 2.4 X10*3/uL (1.2-4.9); Lymphocytes Percent Auto 29.3 % (20-40); Mean Corpuscular HGB Conc 31.4 g/dl (31.0-35.0); Mean Corpuscular Hemoglobin 27.2 pg (27.0-33.0); Mean Corpuscular Volume 86.5 fL (80.0-98.0); Mean Platelet Volume 10.3 fL (9.4-12.3); Monocytes Absolute Auto 1.3 X10*3/uL (0.1-1.2); Monocytes Percent Auto 15.6 % (2-11); Neutrophils Absolute Auto 4.3 x10*3/uL (2.0-8.3); Neutrophils Percent Auto 53.1 % (45-73); Platelet Count 279 X10*3/uL (160-400); Red Blood Count 3.42 X10*6/uL (4.20-5.50); Red Cell Distribution Width 14.7 % (11.0-16.0)
[2024-01-03 07:15] LABS: Anion Gap 12 (12-20); Blood Urea Nitrogen 4 mg/dL (9-16); Calcium 9.1 mg/dL (8.4-10.2); Carbon Dioxide 30 mmol/L (22-29); Chloride 97 mmol/L (96-108); Creatinine Clr Calc Pharmacy 80.9; Estimated Glomerular Filt Rate > 60; Glucose Random 83 mg/dL (60-115); Potassium 3.9 mmol/L (3.3-5.1); Sodium 135 mmol/L (135-145)
[2024-01-03] MEDS: 0.9 % Sodium Chloride Flush 3 ML SYRINGE IVFLUSH ×2 (08:13→17:13)
[2024-01-03] MEDS: levETIRAcetam in NaCl (iso-os) 1,000 MG/100 ML PIGGYBACK 400 MG IV (08:15)
--- NOTE | 2024-01-03 09:06 | PHA.MEDREC ---
Pharmacy Consult ? Medication Reconciliation Pharmacy has completed the medication reconciliation. Med rec complete using claim history to aid patient memory. She couldn't recall medications but when I reminded her of med names she was able to say if she takes them and how often. She does state it has been at least a week since she took her meds as her md wouldn't refill them (reason unknown at this time).
--- NOTE | 2024-01-03 09:13 | HO.PM.IMPN ---
Subjective Subjective Date of Service: 01/03/24 Interval History: Noted improvement in speech. Patient oriented to self, person and place. States she might have missed a few doses of Keppra. Review of Systems Review of Systems: Yes all other systems are reviewed and are negative Physical Exam Vital Signs: Vital Signs: Last Vital Signs Temp 96.9 F 01/03/24 07:29 Pulse 77 01/03/24 07:29 Resp 20 01/03/24 07:29 BP 107/64 01/03/24 07:29 Pulse Ox 96 01/03/24 07:29 O2 Del Method Room Air 01/03/24 07:29 O2 Flow Rate 4 01/03/24 07:29 BMI result Body Mass Index 19.3 Middle-aged female lying in bed in no distress Neck supple, no JVD Regular rate and rhythm, S1-S2 heard Regular breath sounds bilaterally, no wheezing or crackles appreciated Abdomen soft nontender, no guarding, no rigidity Patient is awake and alert, oriented to self, person and place No pedal edema Objective Data Active Medications Acetaminophen (Acetaminophen 325 Mg Tablet) 650 mg PO Q6H PRN PRN Reason: Pain, Mild (Pain Scale 1-3) Enoxaparin Sodium (Enoxaparin Sodium 40 Mg/0.4 Ml Syringe) 40 mg SUBCUT Q24H [facility] Last Admin: 01/02/24 21:52 Dose: 40 mg Documented By: PADMINI Levetiracetam (Keppra) 1,000 mg in 100 mls @ 400 mls/hr IV Q12H [facility] Last Infusion: 01/03/24 08:36 Dose: Infused Documented By: RE Melatonin (Melatonin 3 Mg Tablet) 6 mg PO BEDTIME PRN PRN Reason: Insomnia Ondansetron HCl (Ondansetron Hcl 4 Mg/2 Ml Vial) 4 mg IVPUSH Q8H PRN PRN Reason: Nausea and Vomiting Sodium Chloride (0.9 % Sodium Chloride Flush 3 Ml Syringe) 3 ml IVFLUSH QSHIFT [facility] Last Admin: 01/03/24 08:13 Dose: 3 ml Documented By: RE Labs 01/03/24 06:25 01/03/24 06:25 Labs: Laboratory Results - last 24 hr 01/02/24 01/02/24 01/02/24 19:55 20:05 20:06 MCV MCH MCHC RDW Plt Count MPV Immature Gran % (Auto) Neut % (Auto) Lymph % (Auto) [place] % (Auto) Eos % (Auto) Baso % (Auto) Lymph # (Auto) [place] # (Auto) Eos # (Auto) Baso # (Auto) Abs Immat Gran (auto) Absolute Neuts (auto) Absolute Nucleated RBC Nucleated RBC % (auto) PT 12.1 INR 1.0 VBG pH VBG pCO2 VBG pO2 VBG HCO3 VBG O2 Saturation VBG Base Excess Anion Gap 15 Estim Creat Clear Calc 64.9 Estimated GFR > 60 POC Glucose 118 H Random Glucose 114 Lactic Acid Lactic Acid F/U @ 2Hr Calcium 10.0 Magnesium 1.6 Total Bilirubin 0.3 Direct Bilirubin 0.1 AST 19 ALT 9 Alkaline Phosphatase 86 Ammonia 29 Troponin I High Sens 3.7 D Total Protein 7.8 Albumin 4.6 Urine Color Urine Appearance Urine pH Ur Specific [place] Urine Protein Urine Glucose (UA) Urine Ketones Urine Blood Urine Nitrite Ur Leukocyte Esterase Urine RBC Urine WBC Ur Squamous Epith Cells Urine Bacteria Hyaline Casts Urine Opiates Screen Ur Buprenorphine Scrn Ur Oxycodone Screen Urine Methadone Screen Urine Fentanyl Screen Ur Barbiturates Screen Ur Phencyclidine Scrn Ur Amphetamines Screen U Benzodiazepines Scrn Urine Cocaine Screen U Marijuana (THC) Screen Ethyl Alcohol < 10 Influenza Type A (PCR) NEGATIVE Influenza Type B (PCR) NEGATIVE RSV RNA Qual (PCR) NEGATIVE SARS-CoV-2 RNA (RT-PCR) NEGATIVE 01/02/24 01/02/24 01/02/24 20:11 20:26 20:28 MCV 85.5 MCH 27.6 MCHC 32.3 RDW 14.4 Plt Count 296 D MPV 9.6 Immature Gran % (Auto) 0.3 Neut % (Auto) 66.3 Lymph % (Auto) 19.6 L [place] % (Auto) 12.4 H Eos % (Auto) 1.1 Baso % (Auto) 0.3 Lymph # (Auto) 1.5 [place] # (Auto) 0.9 Eos # (Auto) 0.1 Baso # (Auto) 0.0 Abs Immat Gran (auto) 0.02 Absolute Neuts (auto) 5.1 Absolute Nucleated RBC 0.000 Nucleated RBC % (auto) 0.0 PT INR VBG pH 7.42 VBG pCO2 59 VBG pO2 64 VBG HCO3 38 H VBG O2 Saturation 93.0 VBG Base Excess 12.1 Anion Gap Estim Creat Clear Calc Estimated GFR POC Glucose Random Glucose Lactic Acid 3.4 H* Lactic Acid F/U @ 2Hr Calcium Magnesium Total Bilirubin Direct Bilirubin AST ALT Alkaline Phosphatase Ammonia Troponin I High Sens Total Protein Albumin Urine Color Urine Appearance Urine pH Ur Specific [place] Urine Protein Urine Glucose (UA) Urine Ketones Urine Blood Urine Nitrite Ur Leukocyte Esterase Urine RBC Urine WBC Ur Squamous Epith Cells Urine Bacteria Hyaline Casts Urine Opiates Screen Ur Buprenorphine Scrn Ur Oxycodone Screen Urine Methadone Screen Urine Fentanyl Screen Ur Barbiturates Screen Ur Phencyclidine Scrn Ur Amphetamines Screen U Benzodiazepines Scrn Urine Cocaine Screen U Marijuana (THC) Screen Ethyl Alcohol Influenza Type A (PCR) Influenza Type B (PCR) RSV RNA Qual (PCR) SARS-CoV-2 RNA (RT-PCR) 01/02/24 01/02/24 01/03/24 20:37 22:57 06:25 MCV 86.5 MCH 27.2 MCHC 31.4 RDW 14.7 Plt Count 279 MPV 10.3 Immature Gran % (Auto) 0.4 Neut % (Auto) 53.1 Lymph % (Auto) 29.3 [place] % (Auto) 15.6 H Eos % (Auto) 1.2 Baso % (Auto) 0.4 Lymph # (Auto) 2.4 [place] # (Auto) 1.3 H Eos # (Auto) 0.1 Baso # (Auto) 0.0 Abs Immat Gran (auto) 0.03 Absolute Neuts (auto) 4.3 Absolute Nucleated RBC 0.000 Nucleated RBC % (auto) 0.0 PT INR VBG pH VBG pCO2 VBG pO2 VBG HCO3 VBG O2 Saturation VBG Base Excess Anion Gap 12 Estim Creat Clear Calc 80.9 Estimated GFR > 60 POC Glucose Random Glucose 83 Lactic Acid Lactic Acid F/U @ 2Hr 0.8 Calcium 9.1 D Magnesium Total Bilirubin Direct Bilirubin AST ALT Alkaline Phosphatase Ammonia Troponin I High Sens Total Protein Albumin Urine Color Yellow Urine Appearance Clear Urine pH 6.0 Ur Specific [place] >= 1.030 H Urine Protein Trace Urine Glucose (UA) Negative Urine Ketones Negative Urine Blood Negative Urine Nitrite Negative Ur Leukocyte Esterase Small (1+) H Urine RBC 0-2 Urine WBC 21-50 H Ur Squamous Epith Cells 0-2 Urine Bacteria None Seen Hyaline Casts 0-2 Urine Opiates Screen Not Detected Ur Buprenorphine Scrn Not Detected Ur Oxycodone Screen Not Detected Urine Methadone Screen Not Detected Urine Fentanyl Screen Not Detected Ur Barbiturates Screen Not Detected Ur Phencyclidine Scrn Not Detected Ur Amphetamines Screen Not Detected U Benzodiazepines Scrn Not Detected Urine Cocaine Screen Not Detected U Marijuana (THC) Screen POSITIVE H Ethyl Alcohol Influenza Type A (PCR) Influenza Type B (PCR) RSV RNA Qual (PCR) SARS-CoV-2 RNA (RT-PCR) Microbiology Microbiology Results: Microbiology 01/02/24 Unknown Urine Culture - Preliminary Urine Catheterized - Straight Catheter Culture in progress. Assessment and Plan (1) Aphasia: Status: Acute Plan This is a 58-year-old female with pertinent history of chronic hypoxemic respiratory failure on 3 L supplemental oxygen, essential hypertension, CVA with residual right-sided hemiparesis, seizure disorder, coronary artery disease, mood disorder, takotsubo cardiomyopathy who presents to the emergency department for evaluation of difficulty in speech. #. Aphasia: Improved since admission. Likely in the setting of seizure due to missed doses of Keppra. Obtaining EEG and consulting Neurology. Obtaining MRI to rule out acute CVA. NPO until speech evaluation. Seizure precautions #. Moderate protein calorie malnutrition: Nutrition consult #. Coronary artery disease: On high-intensity statin, aspirin and beta-pedro #. History of CVA: On high-intensity statin and aspirin #. Seizure disorder: Resume home Keppra dosage. Neurology consult pending #. Gastroesophageal reflux disease: On PPI #. Mood disorder: On mirtazapine and sertraline #. Chronic anemia: On iron supplementation and folic acid #. Chronic hypoxemic respiratory failure due to COPD: No exacerbation during admission. On 3-4 L baseline home oxygen. #. Lactic acidosis due to seizure. No sepsis DVT prophylaxis: Lovenox Full code Reason for continued hospitalization: Pending studies and specialist consult. Monitor for seizures Quality Stroke Does the patient have a stroke diagnosis?: No VTE Prior VTE?: No VTE Risk Level:: Medical - moderate - high VTE Device Contraindication: Treatment Not Indicated VTE Drug Contraindication: N/A - Med Ordered
[2024-01-03] MEDS: Aspirin Enteric Coated 81 MG TABLET.DR PO (09:55)
[2024-01-03] MEDS: Sertraline HCL 50 MG TABLET PO (09:55)
[2024-01-03] MEDS: Omeprazole 20 MG CAPSULE.DR PO (09:55)
[2024-01-03] MEDS: amLODIPine Besylate 5 MG TABLET PO (09:56)
--- NOTE | 2024-01-03 09:57 | MHC.CM.PN ---
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 PT VERIFIES PCP IS JANNA COOLEY AND CM WILL MEET W/PT WHEN SHE IS FEELING BETTER TO DISCUSS CHANGING HCP ON FILE.
[2024-01-03 10:27] LABS: Prothrombin Time Whole Bld POC 12.8 sec (11.1-13.5); ~PT, ~INR - Anti Coag Clinic 1.1 (0.9-1.1)
--- NOTE | 2024-01-03 10:27 | P.CDIM_ITS ---
PROVIDER RESPONSE TEXT: To clarify, the appropriate diagnosis supported by the clinical indicators: Acute QUERY TEXT: PHYSICIAN'S DOCUMENTATION REQUEST Date of Query: 01/03/2024 10:22 AM EDT Patient Name: Oxana Bragg Admit Date: 01/03/2024 Dear Rafal Murphy, A review of the medical record indicates additional documentation may be needed. Please review below and update the documentation accordingly. Clinical Indicators: Progress note under the Plan: Lactic acidosis due to seizure. No sepsis. LA 3.4 Clarify which of the following accurately represents the acuity of the Lactic acidosis: Possible options might include: Acute Acute on chronic Other (explain) Clinically unable to determine (explain) Thank you, Shama Matthews, CCS, CDIS Use of terms such as suspected, likely, concern for, or probable (associated with a specific diagnosi s that is being evaluated, monitored, or treated as if it exists) are acceptable and can be coded in the inpatient se tting, when documented at the time of discharge. Please use your independent medical judgment in providing your response. THIS QUERY IS PART OF THE PERMANENT MEDICAL RECORD
--- NOTE | 2024-01-03 11:42 | MHC.SPEECHCO ---
Pt off floor for EEG and MRI, not likely back until mid-afternoon per RN. [employer] will evaluate at that time.
--- NOTE | 2024-01-03 11:57 | MHC.CLN ---
RE: CONSULT PT IS MODERATELY MALNOURISHED PT WITH MILDLY DEPLETED SUBCUTANEOUS FAT AND MUSCLE MASS WITH REPORTED CHRONIC POOR PO INTAKE PT FAMILIAR FROM PREVIOUS ADMISSIONS PT'S WT UP 19% NONSIGNIFICANT WT GAIN X 1 YEAR, ALTHOUGH WT HAS IMPROVED PT REMAINS WITH S/S OF MALNUTRITION DIET RX: NPO PENDING SWALLOW EVAL WHEN DIET TO ADVANCE; RECOMMEND ADDING SUPPLEMENT ENSURE BID TO INCREASE KCALS SUPPLEMENT TO PROVIDE 700KCALS, 60G PROTEIN MONITOR PO INTAKE AND ENCOURAGE SUPPLEMENT SEE ALSO FULL CLINICAL NUTRITION ASSESSMENT
[2024-01-03] MEDS: Albuterol/Iprat 2.5/0.5MG 3 ML AMPUL.NEB INHALE ×2 (12:28→21:49)
[2024-01-03] MEDS: oxyCODONE HCl Immed Release 5 MG TABLET PO (13:54)
--- NOTE | 2024-01-03 16:54 | MHC.SL.DTX ---
Dysphagia Diet modifications: Last documented Solid diet consistencies: Regular Last documented Liquid consistency: NPO Last documented Medication Administration: NPO Changes made to current diet?: Yes Liquid Consistency and Strategies: Liquid Intake Recommendation: Thin Compensatory Strategies for Safe Swallow: Unrestricted Compensatory Strategies for Safe Swallow(b): Sitting Upright (90 deg) Small Bites and Sips Solid Food Consistency: Dietary Recommendations: Regular Additional Modifications to Solids: May require assistance to cut up food given hemiplegia. Oral Medication Intake: Whole with Liquid Strategies and Precautions to be Taken for Safe Swallow: Sitting Upright (90 deg) Small Bites and Sips Supervision While Eating and/Drinking: Intermittent Supervision Foods to Avoid: N/a Swallowing Recommended Treatments: Compens. Strategy Educat. Level of Impact on: Daily activities: None Prognosis for Improvement: Excellent Recommendation for Speech: Further Testing Needed Comment: Recommend START diet of REGULAR SOLIDS and THIN LIQUIDS. PILLS WHOLE with LIQUIDS. She will benefit from tray set-up, including cutting up large chunks of food d/t hemiplegia. Recommend continued assessment with MEAT COUNTER CLERK to monitor progress or need for further services. Timeline to reassess: PRN Security Guard Clinican/Clinical Fellow: No Supervisory Statement: I have reviewed and agree with the student/clinical fellow's documentation: N/A Speech Language Pathologist: Kip Bello M.A., CCC-MEAT COUNTER CLERK
[2024-01-03] MEDS: Ferrous Sulfate 324 MG TABLET.DR PO (17:13)
--- NOTE | 2024-01-03 18:11 | PM.NEUROCN ---
History of Present Illness Data of Consult Service Date: 01/03/24 Primary Care Provider: Brianna Gonzalez MD HPI Reason for consult: Seizure 57-year-old female with past medical history of underlying substance abuse, carotid artery stenosis status post CVA with residual right-sided hemiparesis, CAD, major depression disorder,? takotsubo cardiomyopathy, seizures desorder, COPD /asthma on baseline 2-3 L of oxygen. She came to hospital for change in mental status and apparently had a seizureDuring CAT scan. She had a similar presentation in May 2023 and was put on levetiracetam. She says that she ran out of the medicine and has not had any for one week because her doctor did not fill it. Review of Systems Review of Systems: Yes all other systems are reviewed and are negative, Unobtainable due to mental condition and Unobtainable due to mental status PMFSH Past Medical History Medical History Hemoptysis Closed subcapital fracture of femur Supplemental oxygen dependent Coronary artery disease COPD (chronic obstructive pulmonary disease) History of acute respiratory distress syndrome (ARDS) (~08/2021) Seizure (~11/2021) History of non-ST elevation myocardial infarction (NSTEMI) (~11/2021) History of multiple cerebrovascular accidents (CVAs) Nicotine dependence, cigarettes, uncomplicated Cocaine abuse Respiratory failure with hypoxia Normocytic anemia History of drug abuse Major depression, recurrent Oxygen dependent Takotsubo cardiomyopathy Cocaine abuse Acute CHF (congestive heart failure) Hypercapnic respiratory failure, chronic Hemiparesis affecting right side as late effect of cerebrovascular accident Asymptomatic carotid artery stenosis with infarction Chronic GERD Environmental allergies Anxiety, generalized Lipid disorder Asthma, moderate Family History Family History Father Substance abuse Mother Brain cancer Maternal Grandfather History of heart attack Maternal Grandmother History of heart attack Paternal Grandfather No problems noted. Paternal Grandmother No problems noted. Brother No problems noted. Brother No problems noted. Son No problems noted. Daughter No problems noted. Other Mental health disorder Surgical History Surgical History History of left-sided carotid endarterectomy (~09/2012) History of tonsillectomy and adenoidectomy Social History Social History Household Members: Children Household Members Other:: daughter Housing: Condominium Do you presently have visiting nurse or other home services: No Unable to assess alcohol history related to: Refusing to respond Alcohol intake: former Patient Tobacco Use Status: Former Tobacco user Tobacco use type: Cigarette Cigarettes Per Day: 2 Years Smoked: COUPLE YEAR AGO PER PT e-Cigarette/Vaping Use: Never Used Second Hand Smoke Exposure: No Advance Directives Date on File: 11/25/21 service: No Current occupational status: disabled Cognitive needs: No Hearing needs: No Vision needs: No Meds Allergies Allergy/AdvReac Type Severity Reaction Status Date / Time crab Allergy Unknown Hives Verified 01/02/24 19:59 penicillin V Allergy Unknown hives Verified 01/02/24 19:59 Penicillins [PENICILLINS] Allergy Unknown hives Verified 01/02/24 19:59 SEASONAL ALLERGIES Allergy Mild RUNNY NOSE Uncoded 01/02/24 19:59 Active Medications: Current Medications Acetaminophen (Acetaminophen 325 Mg Tablet) 650 mg PO Q6H PRN PRN Reason: Pain, Mild (Pain Scale 1-3) Albuterol Sulfate (Albuterol Sulfate 90 Mcg 8 Gm Inhaler) 2 puff INHALE Q6H PRN PRN Reason: bronchospasm Albuterol/Ipratropium (Albuterol/Iprat 2.5/0.5mg 3 Ml Ampul.Neb) 3 ml INHALE TID PRN PRN Reason: shortness of breath Last Admin: 01/03/24 12:28 Dose: 3 ml Amlodipine Besylate (Amlodipine Besylate 5 Mg Tablet) 5 mg PO DAILY [facility]; Protocol Last Admin: 01/03/24 09:56 Dose: 5 mg Ascorbic Acid (Ascorbic Acid 250 Mg Tablet) 250 mg PO BID [facility] Aspirin (Aspirin Enteric Coated 81 Mg Tablet.Dr) 81 mg PO DAILY [facility] Last Admin: 01/03/24 09:55 Dose: 81 mg Atorvastatin Calcium (Atorvastatin Calcium 40 Mg Tablet) 40 mg PO BEDTIME [facility] Docusate Sodium (Docusate Sodium 100 Mg Capsule) 100 mg PO DAILY PRN PRN Reason: Constipation Enoxaparin Sodium (Enoxaparin Sodium 40 Mg/0.4 Ml Syringe) 40 mg SUBCUT Q24H [facility] Last Admin: 01/02/24 21:52 Dose: 40 mg Ferrous Sulfate (Ferrous Sulfate 324 Mg Tablet.) 324 mg PO BIDWM [facility] Last Admin: 01/03/24 17:13 Dose: 324 mg Folic Acid (Folic Acid 1 Mg Tablet) 1 mg PO DAILY [facility] Levetiracetam (Levetiracetam 500 Mg Tablet) 500 mg PO BID [facility] Last Admin: 01/03/24 09:53 Dose: Not Given Melatonin (Melatonin 3 Mg Tablet) 6 mg PO BEDTIME PRN PRN Reason: Insomnia Metoprolol Tartrate (Metoprolol Tartrate 25 Mg Tablet) 25 mg PO BID [facility]; Protocol Mirtazapine (Mirtazapine 30 Mg Tablet) 30 mg PO BEDTIME [facility] Omeprazole (Omeprazole 20 Mg Capsule.) 20 mg PO DAILY@0630 [facility] Last Admin: 01/03/24 09:55 Dose: 20 mg Ondansetron HCl (Ondansetron Hcl 4 Mg/2 Ml Vial) 4 mg IVPUSH Q8H PRN PRN Reason: Nausea and Vomiting Polyethylene Glycol (Polyethylene Glycol 3350 17 Gm Powd.Pack) 17 gm PO DAILY PRN PRN Reason: Constipation Sertraline HCl (Sertraline Hcl 50 Mg Tablet) 50 mg PO DAILY [facility] Last Admin: 01/03/24 09:55 Dose: 50 mg Sodium Chloride (0.9 % Sodium Chloride Flush 3 Ml Syringe) 3 ml IVFLUSH QSHIFT [facility] Last Admin: 01/03/24 17:13 Dose: 3 ml Home Medications ?Medication ?Instructions ?Recorded ?Confirmed ?Last Taken ?Type ascorbic acid (vitamin C) 250 mg 250 mg PO BID 12/30/23 01/03/24 Unknown History tablet polyethylene glycol 3350 17 gram 17 g PO DAILY PRN Constipation 01/03/24 01/03/24 Unknown History oral powder packet sertraline 25 mg tablet 50 mg PO DAILY Depression 01/03/24 01/03/24 Unknown History Physical Exam Vital Signs: Vital Signs: Last Vital Signs Temp 97.4 F 01/03/24 15:26 Pulse 83 01/03/24 15:26 Resp 20 01/03/24 15:26 BP 141/65 H 01/03/24 15:26 Pulse Ox 100 01/03/24 15:26 O2 Del Method Nasal Cannula 01/03/24 15:26 O2 Flow Rate 2 01/03/24 15:26 BMI result Body Mass Index 19.3 Const: Other: Appearance: Alert. Oriented, very confused, seems postictal Eyes: Pupils equal, round and reactive to light. ENT: Pharynx normal. Neck: Normal inspection. Neck supple. No lymph nodes noted. No crepitus CVS: Normal heart rate and rhythm. Pulses normal. Normal S1 and S2 Respiratory: No respiratory distress. Breath sounds normal. No Wheezing. No rales Abdomen: Soft and nontender. No rigidity. No distention. Skin: Skin warm and dry. Normal skin color. Normal skin turgor. Extremities: No lower extremity edema. No Lacerations. No Rash Neuro: Chronic right upper and lower extremity deficit due to chronic CVA in 2016 Psych: Seems anxious Neuro: Other: She is now alert and oriented to person and place and partially to time. She says that she has not taken any seizure medicine for a week and had a seizure. She has residual right hemiparalysis. No significant dysphasia at this time. Results Labs 01/03/24 06:25 01/03/24 06:25 Labs: Short CBC 01/02/24 01/03/24 Range/Units 20:26 06:25 WBC 7.6 8.0 (4.8-10.8) X10*3/uL Hgb 9.3 L 9.3 L (12.0-16.0) g/dl Hct 28.8 L 29.6 L (37.0-47.0) % Plt Count 296 D 279 (160-400) X10*3/uL BMP 01/02/24 01/03/24 20:05 06:25 Sodium 132 L 135 Potassium 3.6 D 3.9 Chloride 87 L 97 Carbon Dioxide 34 H 30 H BUN 5 L 4 L Creatinine 0.60 0.51 Calcium 10.0 9.1 D Liver Function 01/02/24 Range/Units 20:05 Total Bilirubin 0.3 (0.0-1.0) mg/dL Direct Bilirubin 0.1 (0.0-0.5) mg/dL AST 19 (5-31) U/L ALT 9 (0-31) U/L Alkaline Phosphatase 86 (39-117) U/L Albumin 4.6 (3.5-5.0) g/dL Urine 01/02/24 Range/Units 20:37 Urine Color Yellow Urine Appearance Clear Urine pH 6.0 (5.0-9.0) Ur Specific [place] >= 1.030 H (1.005-1.025) Urine Protein Trace (Neg-Trace) mg/dL Urine Glucose (UA) Negative (Negative) mg/dL Microbiology Microbiology Results: Microbiology 01/02/24 Unknown Urine Catheterized - Straight Catheter Urine Culture - Preliminary Culture in progress. Assessment and Plan (1) Seizure: Status: Acute Breakthrough seizure because she ran out of her Keppra over a week ago. Recommendation restart Keppra 500 mg twice a day. Outpatient followup with Dr. Gonzalez (2) Aphasia: Status: Acute Plan This is a 58-year-old female with pertinent history of chronic hypoxemic respiratory failure on 3 L supplemental oxygen, essential hypertension, CVA with residual right-sided hemiparesis, seizure disorder, coronary artery disease, mood disorder, takotsubo cardiomyopathy who presents to the emergency department for evaluation of difficulty in speech. #. Aphasia: Improved since admission. Likely in the setting of seizure due to missed doses of Keppra. Obtaining EEG and consulting Neurology. Obtaining MRI to rule out acute CVA. NPO until speech evaluation. Seizure precautions #. Moderate protein calorie malnutrition: Nutrition consult #. Coronary artery disease: On high-intensity statin, aspirin and beta-pedro #. History of CVA: On high-intensity statin and aspirin #. Seizure disorder: Resume home Keppra dosage. Neurology consult pending #. Gastroesophageal reflux disease: On PPI #. Mood disorder: On mirtazapine and sertraline #. Chronic anemia: On iron supplementation and folic acid #. Chronic hypoxemic respiratory failure due to COPD: No exacerbation during admission. On 3-4 L baseline home oxygen. #. Lactic acidosis due to seizure. No sepsis DVT prophylaxis: Lovenox Full code Reason for continued hospitalization: Pending studies and specialist consult. Monitor for seizures Procedures Date of Service Date of Service: 01/03/24
[2024-01-03] MEDS: Ascorbic Acid 250 MG TABLET PO (22:57)
[2024-01-03] MEDS: Atorvastatin Calcium 40 MG TABLET PO (22:57)
[2024-01-03] MEDS: Mirtazapine 30 MG TABLET PO (22:57)
[2024-01-03] MEDS: levETIRAcetam 500 MG TABLET PO (22:57)
[2024-01-03] MEDS: Metoprolol Tartrate 25 MG TABLET PO (22:58)
[2024-01-03] MEDS: Enoxaparin Sodium 40 MG/0.4 ML SYRINGE SUBCUT (22:58)
[2024-01-03] MEDS: Melatonin 3 MG TABLET 6 MG PO (23:17)
[2024-01-03] MEDS: Acetaminophen 325 MG TABLET 650 MG PO (23:17)
[2024-01-04] VITALS: PULSE 86; TEMP 37.1; O2SAT 92
[2024-01-04 04:00] VITALS: BP 111/50; PULSE 62; RESP 20; TEMP 36.3; O2SAT 99
[2024-01-04] MEDS: Omeprazole 20 MG CAPSULE.DR PO (06:56)
[2024-01-04 07:01] VITALS: BP 124/60; PULSE 62; RESP 18; TEMP 36.9; O2SAT 100
--- NOTE | 2024-01-04 07:39 | P.CDIM_ITS ---
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 Please review below and update the documentation accordingly. Clinical Indicators: Neurology consult note 01/02 - Seizure disorder - resume home Keppra dosage. Now alert and oriented to person and place. She says that she has not taken any seizure medication fo r a week and had a seizure. PMH: Seizure disorder Breakthrough seizure because she ran out of her Keppra over a week ago. 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 Please use your independent medical judgment in providing your response. THIS QUERY IS PART OF THE PERMANENT MEDICAL RECORD
[2024-01-04] MEDS: Sertraline HCL 50 MG TABLET PO (09:05)
[2024-01-04] MEDS: Metoprolol Tartrate 25 MG TABLET PO (09:05)
[2024-01-04] MEDS: amLODIPine Besylate 5 MG TABLET PO (09:05)
[2024-01-04] MEDS: Ascorbic Acid 250 MG TABLET PO (09:05)
[2024-01-04] MEDS: Ferrous Sulfate 324 MG TABLET.DR PO ×2 (09:05→16:16)
[2024-01-04] MEDS: Folic Acid 1 MG TABLET PO (09:05)
[2024-01-04] MEDS: levETIRAcetam 500 MG TABLET PO (09:06)
[2024-01-04] MEDS: Magnesium Hydrox/Alum Hydrox 30 ML ORAL.SUSP PO (09:06)
[2024-01-04] MEDS: Aspirin Enteric Coated 81 MG TABLET.DR PO (09:06)
[2024-01-04] MEDS: 0.9 % Sodium Chloride Flush 3 ML SYRINGE IVFLUSH ×2 (09:08→16:26)
--- NOTE | 2024-01-04 11:08 | PM.DS ---
DS: Providers Provider Date of Service: 01/04/24 Date of admission: 01/02/24 21:41 Primary care physician: Brianna Gonzalez MD Consults: 01/02/24 21:24 Consult to Neurology Routine Consulting Provider: [facility] Reason for consultation: slurred speech, ?seiure vs cva DS: Diagnosis Discharge Diagnosis (1) Seizure: Status: Acute (2) Aphasia: Status: Acute DS: Summary Hospital Course Hospital Course: HPI: This is a 58-year-old female with pertinent history of chronic hypoxemic respiratory failure on 3 L supplemental oxygen, essential hypertension, CVA with residual right-sided hemiparesis, seizure disorder, coronary artery disease, mood disorder, takotsubo cardiomyopathy who presents to the emergency department for evaluation of difficulty in speech. Unable to obtain history from the patient. History obtained from ER provider and chart review. As per the daughter, patient had difficulty with speech and word-finding. The daughter stated that patient had a similar presentation in May when she was diagnosed with seizures. Patient has residual right-sided weakness due to CVA in 2015. Unable to obtain review of systems. In the emergency department, initial blood pressure was found to be 204/82. Patient apparently had an episode of seizure while in CT scan. Patient received 2 mg IV Ativan, 1500 mg IV Keppra and 20 mg labetalol in the ER Hospital course: Patient missed a few doses of Keppra at home. Was put back on home Keppra dosage with improvement in speech. Was evaluated by Neurology and aphasia deemed to be due to breakthrough seizure and not due to acute CVA. Speech improved throughout hospitalization and is now back to baseline prior to discharge. Was evaluated by Physical therapy who recommended home with services. Patient denied VNA and wants to go home. Counseled regarding compliance with Keppra. Updated daughter and patient prior to discharge. Status at Discharge Functional status at discharge: uses cane/walker Overall status at discharge: patient is back to baseline Time Attestation Discharge Coordination Time (in mins): Thirty-five Quality: Safe Use of Opioids Does Pt have an Active Cancer Diagnosis on the Problem List?: No Quality: Stroke Does the patient have a stroke diagnosis?: No Physical Exam Vital Signs: Vital Signs: Last Vital Signs Temp 98.4 F 01/04/24 07:01 Pulse 62 01/04/24 07:01 Resp 18 01/04/24 07:01 BP 124/60 01/04/24 07:01 Pulse Ox 100 01/04/24 07:01 O2 Del Method Nasal Cannula 01/04/24 07:01 O2 Flow Rate 2 01/04/24 07:01 BMI result Body Mass Index 19.3 Middle-aged female lying in bed in no distress Neck supple, no JVD Regular rate and rhythm, S1-S2 heard Regular breath sounds bilaterally, no wheezing or crackles appreciated Abdomen soft nontender, no guarding, no rigidity Patient is awake and alert, oriented to self, person and place No pedal edema DS: Data Data Completed and Pending Completed studies during hospitalization [Text1]: Procedures Assistance with Respiratory Ventilation, 24-96 Consecutive Hours, Continuous Positive Airway Pressure (08/16/21) Assistance with Respiratory Ventilation, Less than 24 Consecutive Hours, Continuous Positive Airway Pressure (03/17/23) Insertion of Infusion Device into Superior Vena Cava, Percutaneous Approach (08/16/21) Introduction of Remdesivir Anti-infective into Central Vein, Percutaneous Approach, [employer] (08/16/21) Reposition Right Upper Femur with Internal Fixation Device, Percutaneous Approach (09/24/23) Transfusion of Nonautologous Red Blood Cells into Peripheral Vein, Percutaneous Approach (09/24/23) Labs on day of discharge: Preliminary micro results at discharge 01/02/24 Unknown Urine Culture - Preliminary Urine Catheterized - Straight Catheter Gram negative rodri 01/02/24 20:37 Blood Culture - Preliminary Blood - Venous No growth after 24 hours. 01/02/24 20:37 Blood Culture - Preliminary Blood - Venous No growth after 24 hours. Imaging MRI - head: Radiologist's impression: ITS Impressions Head CT 01/02/24 20:08 IMPRESSION: 1. No acute intracranial abnormality including hemorrhage, mass effect, hydrocephalus, or acute territorial edematous infarction. . 2. Chronic left MCA territory infarct Above impression was communicated to Dr. Dixon on 01/02/2024 8:26 PM Head/Neck CTA 01/02/24 20:25 IMPRESSION: No new or progressive arterial high-grade stenosis or large vessel occlusion in the head or neck. Stable occlusion of the left common carotid artery just past its origin with absent contrast filling of the majority of the left ICA and intracranial reconstitution of the left carotid terminus and A1 and M1 origins. Above impression was communicated to Dr Dixon on 01/02/2024 8:37 PM Brain MRI 01/03/24 13:46 IMPRESSION: - A punctate focus of restricted diffusion within the central medulla may be artifactual or may reflect an acute lacunar infarct. No mass effect and no hemorrhagic transformation. - There are T2 signal changes within the occipital subcortical white matter bilaterally as well as the high right frontoparietal subcortical white matter with the distribution most suggestive of PRES which can be correlated for underlying hypertension. Postcontrast imaging would be helpful in excluding any enhancing pathology to explain these findings. - A large chronic infarct within the left MCA territory is again noted with associated chronic left-sided wallerian degeneration. - Absent cervical and intracranial left internal carotid artery flow void in keeping with the known left common carotid artery/internal carotid artery occlusion. Discharge Plan Discharge Anticipated Discharge Date/Time: 01/04/24 11:18 Patient Disposition: Home, Self-Care Discharge Diagnosis: Aphasia due to breakthrough seizure in a patient with seizure disorder Referrals: Brianna Gonzalez MD [Primary Care Provider] - 1 Week Discharge Medications: New levetiracetam 500 mg Tablet 500 mg PO BID 180 Days Qty: 360 0RF Continued ipratropium-albuterol 0.5 mg-3 mg(2.5 mg base)/3 mL solution for nebulization 3 ml inhalation TID PRN (Reason: shortness of breath) Qty: 180 0RF albuterol sulfate 90 mcg/actuation HFA aerosol inhaler 2 puff PO Q6H PRN (Reason: bronchospasm) 30 Days Qty: 6.7 5RF amlodipine 5 mg tablet 5 mg PO DAILY 90 Days Qty: 90 0RF atorvastatin 40 mg tablet 40 mg PO BEDTIME Qty: 90 0RF mirtazapine 30 mg tablet 30 mg PO BEDTIME 90 Days Qty: 90 0RF docusate sodium 100 mg Capsule 100 mg PO DAILY PRN (Reason: Constipation) Qty: 30 0RF ferrous sulfate 324 mg (65 mg iron) Tablet,Delayed Release (Dr/Ec) 324 mg PO BIDWM Qty: 60 0RF sertraline 25 mg tablet 50 mg PO DAILY polyethylene glycol 3350 17 gram powder in packet 17 g PO DAILY PRN (Reason: Constipation) aspirin [Adult Low Dose Aspirin] 81 mg tablet,delayed release (DR/EC) 81 mg PO DAILY Qty: 90 0RF folic acid 1 mg tablet 1 mg PO DAILY Qty: 90 0RF metoprolol tartrate 25 mg tablet 25 mg PO BID 90 Days Qty: 180 0RF omeprazole 20 mg capsule,delayed release(DR/EC) 20 mg PO DAILY@0630 Qty: 90 0RF ascorbic acid (vitamin C) 250 mg tablet 250 mg PO BID Discontinued levetiracetam 500 mg tablet 500 mg PO BID 90 Days Qty: 180 0RF Discharge Orders: Discharge Order (Routine); Ordered 01/04/24 Ordered By: Rafal Murphy Diet: Low salt diet Activity on Discharge: As tolerated Stand Alone Forms: Patient Portal Discharge page Print Language: Mozambican Care Plan Goals: Follow-up with PCP within 1 week Health Concerns: Seizure disorder History of CVA Plan of Treatment: No medication changes Continue Keppra 500 mg b.i.d. Assessment: As above
--- NOTE | 2024-01-04 11:18 | MHC.CM.PN ---
Addendum entered by Lorena Contreras 01/04/24 13:10: This CM called pts daughter/COMMUNITY RELATIONS ADVISOR/HCP Pina to confirm with her that she was at the home to receive her today at 4pm. Pts daughter aware of D/C and will be at the home for her arrival. Addendum entered by Lorena Martinezerland 01/04/24 12:49: Pt is medically cleared for D/C home self-care with resumption of home O2 through [employer]. Pt will transport home via BLS/Nydia at 4pm. Original Note: Pt is recommending home with services. This CM met with pt to discuss VNA options. Pt stated there's no way a VNA is coming to my house, its too messy. Hospitalist informed.
[2024-01-04 11:27] VITALS: BP 101/62; PULSE 67; RESP 18; TEMP 36.3; O2SAT 97
--- NOTE | 2024-01-04 12:44 | MHC.SL.SWA ---
Dysphasia Diet Status: Continue to recommend regular solids and thin liquids, pills whole w/ liquid. Patient continues to benefit from some assistance w/ tray set up and May require assistance to cut up food given hemiplegia. Liquid Consistency and Strategies for Safe Swallow: Liquid Intake Recommendation: Thin Liquid Intake Strategies: Unrestricted Solid Food Consistency: Dietary Recommendations: Regular Additional Modifications to Solid Foods: May require assistance to cut up food given hemiplegia. Oral Medication Intake: Whole with Liquid Please contact the pharmacy regarding appropriate crushable or liquid drug formulations that are available whenever modified delivery is recommended. Compensatory Strategies and Precautions to be Taken for Safe Swallow: Sitting Upright (90 deg) Small Bites and Sips Supervision While Eating and Drinking for Safe Swallow: Intermittent Supervision Swallowing Recommended Treatments: Compens. Strategy Educat. Recommendation for Speech: RN reporting no difficulty w/ word finding at this time. Patient reporting that her word finding has improved. Patient able to name several items around hospital room w/o hesitation; no word finding difficulty witnessed through either screening or conversation. Cardiac Rn Clinican/Clinical Fellow: No Supervisory Statement: I have reviewed and agree with the student/clinical fellow's documentation: N/A Speech Language Pathologist: Sahara Taylor M.A., CCC-DEPUTY COMMISSIONER
--- NOTE | 2024-01-04 14:01 | MHC.CLN ---
F/U PT IS MODERATELY MALNOURISHED SEE FULL CLINICAL NUTRITION ASSESSMENT DATED 01/03/24 DIET RX: 2GM NA-APPROPRIATE RECOMMEND ADDING ENSURE BID TO INCREASE KCALS SUPPLEMENT TO PROVIDE 700KCALS, 60G PROTEIN MONITOR PO INTAKE AND ENCOURAGE SUPPLEMENT
--- NOTE | 2024-01-04 14:32 | PC.RT ---
RT called for PRN svn, upon entering room pt is noted to be sleeping at this time. Nursing aware.
[2024-01-04] MEDS: Albuterol/Iprat 2.5/0.5MG 3 ML AMPUL.NEB INHALE (15:14)
[2024-01-04 15:23] VITALS: BP 120/68; PULSE 72; RESP 18; TEMP 36.3; O2SAT 100
[2024-01-04] MEDS: Acetaminophen 325 MG TABLET 975 MG PO (16:18)
== END 2024-01-04 17:30 | disposition home or self-care (01) | DRG 53 ==
LOC: HO.ED 21:40 → HO.EDOVER 23:18 → HO.IMC 01-03 01:40
PROVIDERS: Admitting Provider Student in an Organized Health Care Education/Training Program; Emergency Provider Emergency Medicine; PCP Internal Medicine; Visit Provider Student in an Organized Health Care Education/Training Program
DX: G40.909 Epilepsy, unspecified, not intractable, without status epilepticus (principal); E87.21 Acute metabolic acidosis; E44.0 Moderate protein-calorie malnutrition; J96.11 Chronic respiratory failure with hypoxia; I69.351 Hemiplegia and hemiparesis following cerebral infarction affecting right dominant side; K21.9 Gastro-esophageal reflux disease without esophagitis; T42.6X6A Underdosing of other antiepileptic and sedative-hypnotic drugs, initial encounter; R47.01 Aphasia; D64.9 Anemia, unspecified; I10 Essential (primary) hypertension; Z68.1 Body mass index [BMI] 19.9 or less, adult; I25.10 Atherosclerotic heart disease of native coronary artery without angina pectoris; J44.9 Chronic obstructive pulmonary disease, unspecified; Z20.822 Contact with and (suspected) exposure to COVID-19; Z99.81 Dependence on supplemental oxygen; Z87.891 Personal history of nicotine dependence; Z79.82 Long term (current) use of aspirin; Z79.899 Other long term (current) drug therapy
CPT/HCPCS: 0241U; 36415; 70450; 70496; 70498; 70551; 80048; 80076; 80307; 81001; 82140; 82803; 82947; 83605; 83735; 84484; 85025; 85610; 87040; 87086; 87088; 87186; 92526; 93005; 94640; 95816; 97162; 99285; J1650; J1920; J1953; J2060; Q9967

== ENCOUNTER → 2024-01-02 20:00 | Outpatient (BNV) | payer OTHER, SELFPAY | PROVIDERS: Admitting Provider Student in an Organized Health Care Education/Training Program; Emergency Provider Emergency Medicine; PCP Internal Medicine; Visit Provider Internal Medicine Cardiovascular Disease | DX: R00.0 Tachycardia, unspecified (principal) | CPT/HCPCS: 93010 ==

== ENCOUNTER → 2024-01-02 21:41 | Outpatient (BNV) | payer OTHER, SELFPAY | PROVIDERS: Admitting Provider Student in an Organized Health Care Education/Training Program; Emergency Provider Emergency Medicine; PCP Internal Medicine; Visit Provider Psychiatry & Neurology Neurology | DX: R56.9 Unspecified convulsions (principal); R47.01 Aphasia; T50.996A Underdosing of other drugs, medicaments and biological substances, initial encounter | CPT/HCPCS: 99222 ==

== ENCOUNTER → 2024-01-02 21:41 | Outpatient (BNV) | payer OTHER, SELFPAY | PROVIDERS: Admitting Provider Student in an Organized Health Care Education/Training Program; Emergency Provider Emergency Medicine; Visit Provider Student in an Organized Health Care Education/Training Program | DX: R56.9 Unspecified convulsions (principal); I69.320 Aphasia following cerebral infarction | CPT/HCPCS: 99223; 99232; 99239 ==

== ENCOUNTER 2024-01-06 09:43 | Outpatient (AMB) | payer OTHER, SELFPAY ==
--- NOTE | 2024-01-06 09:47 | MHC.PC.OV ---
Vital Signs 01/06/24 09:50 Height 4 ft 11 in BMI Reason not done Patient refused/unable BP 100/52 L Blood Pressure Location Lt brachial Position Sitting Pulse 79 Pulse Source Pulse Oximeter Pulse Oximetry (%) 100 Oxygen Delivery Method Room Air Intake Visit Reasons: DC [facility] Allergies crab Allergy (Unknown, Verified 01/06/24 09:47) Hives penicillin V Allergy (Unknown, Verified 01/06/24 09:47) hives Penicillins [PENICILLINS] Allergy (Unknown, Verified 01/06/24 09:47) hives SEASONAL ALLERGIES Allergy (Mild, Uncoded 01/02/24 19:59) RUNNY NOSE Medication List - Last Reconciled 01/06/24 by Brianna Gonzalez MD albuterol sulfate 90 mcg/actuation 2 puffs PO Q6H PRN 30 days amlodipine 5 mg PO DAILY 90 days aspirin (Adult Low Dose Aspirin) 81 mg PO DAILY atorvastatin 40 mg PO BEDTIME docusate sodium 100 mg PO DAILY PRN ferrous sulfate 324 mg PO BIDWM folic acid 1 mg PO DAILY ipratropium-albuterol 0.5 mg-3 mg(2.5 mg base)/3 mL 3 mL inhalation TID PRN levetiracetam 500 mg PO BID 180 days metoprolol tartrate 25 mg PO BID 90 days mirtazapine 30 mg PO BEDTIME 90 days omeprazole 20 mg PO DAILY@0630 polyethylene glycol 3350 17 grams PO DAILY PRN sertraline 50 mg PO DAILY Tobacco use date assessed: 01/06/24 Dental Screening Dental Screen Date: 01/06/24 Did you have a dental visit in the last 12 months?: Yes Did you have a dental problem in the last 6 months where you did not have access to dental care?: No Was dental information given to patient?: Patient has dentist HPI [facility] HPI Details Patient is a 58-year-old female, with a history of chronic hypoxic respiratory failure on 3 L of supplemental oxygen, noncompliant with the medical advice, history of CVA with residual right-sided hemiparesis, history of seizure disorder, coronary artery disease, depression, takotsubo cardiomyopathy. Presented to emergency room on January 03 2025 with a chief complaint of difficulty speaking and word finding difficulty. Patient had similar episode in May of last year Her last CVA was in 2016 Her blood pressure found to be 204 x 82 in emergency department She was given 2 mg of IV Ativan, 1.5 g of IV Keppra and 20 mg of labetalol in emergency room Family told the doctor that she has missed a few doses of Keppra at home Neurology evaluate patient and felt her aphasia is secondary to seizure and not due to acute CVA CTA scan of head showed no new stenosis of head or neck Brain MRI done 01/03/2024 showed Large chronic infarct within left MCA territory Patient was restarted on Keppra and three-month supply was sent We discussed how important it is for her to follow-up with the Neurology She has missed numerous neurology appointment that they have declined to see her again I have placed a new referral for her to be booked with [facility] Patient also need to see online merchandising specialist, she has been having recurrent emergency room visit for respiratory failure She has severe COPD and is on 3 L of oxygen She is here today with her ex Sukhdeep Garza Phone number [phone] He will be taking care of her partially and will be bringing her to her appointments now I have sent all her refills for three-month After that her pulmonary supplies need to come from online merchandising specialist And Keppra needs to come from Neurology office She also have a urine incontinence And is requesting diapers very small size she will be changing 3 times a day Patient will be moved to a special housing For that she need a letter Stating that patient is oxygen dependent And have hemiparesis secondary to stroke She is wheelchair bound, able to use short distance with walker However need wheelchair access housing and bathroom Close to handicap parking on 1st floor without stairs We will provide the letter 50 minute spent in care of this patient [id number], reviewing emergency room notes reviewing medications Creating referrals, creating letter, and discussing with her ex- Sukhdeep patient's care [facility] Medical History Takotsubo cardiomyopathy History of multiple cerebrovascular accidents (CVAs) Oxygen dependent Hemiparesis affecting right side as late effect of cerebrovascular accident Hemoptysis Closed subcapital fracture of femur Supplemental oxygen dependent Coronary artery disease COPD (chronic obstructive pulmonary disease) History of acute respiratory distress syndrome (ARDS) (~08/2021) Seizure (~11/2021) History of non-ST elevation myocardial infarction (NSTEMI) (~11/2021) Nicotine dependence, cigarettes, uncomplicated Cocaine abuse Respiratory failure with hypoxia Normocytic anemia History of drug abuse Major depression, recurrent Cocaine abuse Acute CHF (congestive heart failure) Hypercapnic respiratory failure, chronic Asymptomatic carotid artery stenosis with infarction Chronic GERD Environmental allergies Anxiety, generalized Lipid disorder Asthma, moderate Surgical History History of left-sided carotid endarterectomy (~09/2012) History of tonsillectomy and adenoidectomy Family History Father Substance abuse Mother Brain cancer Maternal Grandfather History of heart attack Maternal Grandmother History of heart attack Paternal Grandfather No problems noted. Paternal Grandmother No problems noted. Brother No problems noted. Brother No problems noted. Son No problems noted. Daughter No problems noted. Other Mental health disorder Social History Household Members: Children Household Members Other:: daughter Housing: Condominium Do you presently have visiting nurse or other home services: No Unable to assess alcohol history related to: Refusing to respond Alcohol intake: former Patient Tobacco Use Status: Former Tobacco user Tobacco use type: Cigarette Cigarettes Per Day: 2 Years Smoked: COUPLE YEAR AGO PER PT Packs per year/per ci.00 e-Cigarette/Vaping Use: Never Used Second Hand Smoke Exposure: No Advance Directives Date on File: 11/25/21 service: No Current occupational status: disabled Cognitive needs: No Hearing needs: No Vision needs: No Questionnaire Thrive Questionnaire Date Thrive assessed: 01/03/24 AUDIT C Alcohol Use Questionnaire (AUDIT-C) 1. How often do you have a drink containing alcohol?: Never 3. How often do you have six or more drinks on one occasion?: Never Total Score: 0 Score Reviewed/Action Taken: Yes SAGAR-7 AMB Questionnaire SAGAR-7 Date SAGAR - 7 assessed: 10/20/22 Source: Developed by Drs. Hemant Eller, Sue Christensen, Jamey Drummond and colleagues, with an educational mario alberto from [employer]. Review of Systems Const Denies chills and Denies fever(s) ENT Denies epistaxis and Denies nasal discharge Card Denies chest pain Resp Denies chest congestion, Denies cough and Denies hemoptysis GI Denies diarrhea and Denies nausea Skin/Breast Denies rash Neuro Reports no additional complaints Psych Reports no additional complaints Endo Reports no additional complaints Physical exam (Primary Care) Vital Signs: Last Vital Signs Pulse 79 01/06/24 09:50 BP 100/52 L 01/06/24 09:50 Pulse Ox 100 01/06/24 09:50 Oxygen Delivery Method Room Air 01/06/24 09:50 Tobacco/Smoking Status: Tobacco use Status Tobacco use date assessed 01/06/24 01/06/24 09:54 Patient Tobacco Use Status Former Tobacco user 01/06/24 09:54 Tobacco use type Cigarette 01/06/24 09:54 e-Cigarette/Vaping Use Never Used 01/06/24 09:54 Thrive Assessment: Date of Thrive Assessment Date Thrive assessed 01/03/24 01/06/24 09:54 Const General: cooperative, comfortable and no acute distress Orientation/consciousness: patient oriented x3 HENMT Head: Yes normocephalic Eyes General: appearance normal, both eyes and all related structures Neck Neck: Yes supple Resp Effort & Inspection: normal respiratory effort, no cough and no stridor Cardio Rhythm: regular rhythm Heart sounds: S1 normal heart sound present and S2 normal heart sound present Skin General skin exam: turgor normal Neuro Other: Frail female sitting in wheelchair General: patient oriented x3 and moves all extremities Extrem Right lower extremity: no edema Left lower extremity: no edema Assessment and Plan Assessment & Plan (1) Seizure: Code(s): R56.9 - Unspecified convulsions (2) Hemiparesis affecting right side as late effect of cerebrovascular accident: Code(s): I69.351 - Hemiplegia and hemiparesis following cerebral infarction affecting right dominant side (3) Oxygen dependent: Code(s): Z99.81 - Dependence on supplemental oxygen (4) History of multiple cerebrovascular accidents (CVAs): Comment: (TIA 11/2011; CVA/left hemiparesis 01/2013 - resolved;b/l L>R [place] infarcts 04/2016) Code(s): Z86.73 - Personal history of transient ischemic attack (TIA), and cerebral infarction without residual deficits (5) Urine incontinence: Code(s): R32 - Unspecified urinary incontinence Qualifiers: Urinary Incontinence type: mixed stress and urge incontinence (6) Major depression, recurrent: Code(s): F33.9 - Major depressive disorder, recurrent, unspecified Qualifiers: Active/Remission status: in partial remission Qualified Code(s): F33.41 - Major depressive disorder, recurrent, in partial remission (7) Chronic lung disease: Code(s): J98.4 - Other disorders of lung (8) Noncompliance: Code(s): Z91.199 - Patient's noncompliance with other medical treatment and regimen due to unspecified reason (9) Moderate malnutrition: Code(s): E44.0 - Moderate protein-calorie malnutrition (10) Lipid disorder: Code(s): E78.9 - Disorder of lipoprotein metabolism, unspecified (11) Takotsubo cardiomyopathy: Code(s): I51.81 - Takotsubo syndrome (12) Chronic GERD: Code(s): K21.9 - Gastro-esophageal reflux disease without esophagitis Plan Patient is a 58-year-old female, with a history of chronic hypoxic respiratory failure on 3 L of supplemental oxygen, noncompliant with the medical advice, history of CVA with residual right-sided hemiparesis, history of seizure disorder, coronary artery disease, depression, takotsubo cardiomyopathy. Presented to emergency room on January 03 2025 with a chief complaint of difficulty speaking and word finding difficulty. Patient had similar episode in May of last year Her last CVA was in 2016 Her blood pressure found to be 204 x 82 in emergency department She was given 2 mg of IV Ativan, 1.5 g of IV Keppra and 20 mg of labetalol in emergency room Family told the doctor that she has missed a few doses of Keppra at home Neurology evaluate patient and felt her aphasia is secondary to seizure and not due to acute CVA CTA scan of head showed no new stenosis of head or neck Brain MRI done 01/03/2024 showed Large chronic infarct within left MCA territory Patient was restarted on Keppra and three-month supply was sent We discussed how important it is for her to follow-up with the Neurology She has missed numerous neurology appointment that they have declined to see her again I have placed a new referral for her to be booked with [facility] Patient also need to see online merchandising specialist, she has been having recurrent emergency room visit for respiratory failure She has severe COPD and is on 3 L of oxygen She is here today with her ex Sukhdeep Garza Phone number [phone] He will be taking care of her partially and will be bringing her to her appointments now I have sent all her refills for three-month After that her pulmonary supplies need to come from online merchandising specialist And Mi needs to come from Neurology office She also have a urine incontinence And is requesting diapers very small size she will be changing 3 times a day Patient will be moved to a special housing For that she need a letter Stating that patient is oxygen dependent And have hemiparesis secondary to stroke She is wheelchair bound, able to use short distance with walker However need wheelchair access housing and bathroom Close to handicap parking on 1st floor without stairs We will provide the letter 50 minute spent in care of this patient [id number], reviewing emergency room notes reviewing medications Creating referrals, creating letter, and discussing with her ex- Sukhdeep patient's care Orders: Referrals Neurology Referral R56.9 - Unspecified convulsions Medications: New [Diapers] 3 times a day 90 multiple units 5RF I69.351 - Hemiplegia and hemiparesis following cerebral infarction affecting right dominant side, R32 - Unspecified urinary incontinence, R56.9 - Unspecified convulsions, Z86.73 - Personal history of transient ischemic attack (TIA), and cerebral infarction without residual deficits, Z99.81 - Dependence on supplemental oxygen sertraline 50 mg (2 x 25 mg) PO DAILY 90 tabs 0RF Depression Refilled albuterol sulfate 90 mcg/actuation 2 puffs PO Q6H PRN 6.7 grams 5RF bronchospasm 30 days aspirin (Adult Low Dose Aspirin) 81 mg PO DAILY 90 tabs 0RF atorvastatin 40 mg PO BEDTIME 90 tabs 0RF Cholesterol folic acid 1 mg PO DAILY 90 tabs 0RF metoprolol tartrate 25 mg PO BID 180 tabs 0RF 90 days mirtazapine 30 mg PO BEDTIME 90 tabs 0RF 90 days amlodipine 5 mg PO DAILY 90 tabs 0RF 90 days docusate sodium 100 mg PO DAILY PRN 30 caps 0RF Constipation ferrous sulfate 324 mg PO BIDWM 60 tabs 0RF ipratropium-albuterol 0.5 mg-3 mg(2.5 mg base)/3 mL 3 mL inhalation TID PRN 180 mL 0RF shortness of breath omeprazole 20 mg PO DAILY@0630 90 caps 0RF Acid reflux Coding Level of Care Code Est Pt Level 5 (62419) Diagnoses Seizure R56.9 Hemiparesis affecting right side as late effect of cerebrovascular accident I69.351 Oxygen dependent Z99.81 History of multiple cerebrovascular accidents (CVAs) Z86.73 Urine incontinence R32 Urinary Incontinence type: mixed stress and urge incontinence Recurrent major depressive disorder, in partial remission F33.41 Active/Remission status: in partial remission Chronic lung disease J98.4 Noncompliance Z91.199 Moderate malnutrition E44.0 Lipid disorder E78.9 Takotsubo cardiomyopathy I51.81 Chronic GERD K21.9 Time Spent (min) 50
[2024-01-06 09:50] VITALS: BP 100/52; PULSE 79; O2SAT 100
== END 2024-01-06 11:20 | disposition home or self-care (01) ==
PROVIDERS: PCP Internal Medicine; Visit Provider Internal Medicine
DX: R56.9 Unspecified convulsions (principal); I69.351 Hemiplegia and hemiparesis following cerebral infarction affecting right dominant side; F33.41 Major depressive disorder, recurrent, in partial remission; E44.0 Moderate protein-calorie malnutrition; Z99.81 Dependence on supplemental oxygen; Z86.73 Personal history of transient ischemic attack (TIA), and cerebral infarction without residual deficits; R32 Unspecified urinary incontinence; J98.4 Other disorders of lung; Z91.199 Patient's noncompliance with other medical treatment and regimen due to unspecified reason; E78.9 Disorder of lipoprotein metabolism, unspecified; I51.81 Takotsubo syndrome; K21.9 Gastro-esophageal reflux disease without esophagitis
CPT/HCPCS: 99215

== ENCOUNTER 2024-02-08 14:29 | Outpatient (AMB) | payer OTHER, SELFPAY ==
--- NOTE | 2024-02-08 14:42 | MHC.OFFVIS ---
Vital Signs 02/08/24 14:43 Height 4 ft 11 in BP 110/62 Blood Pressure Location Lt brachial Position Sitting Pulse 113 H Pulse Source Pulse Oximeter Pulse Oximetry (%) 97 Oxygen Delivery Method Nasal Cannula Oxygen Flow Rate 4 Intake Visit Reasons: COPD Intake Note: pt is here for follow up and states she is on oxygen 24 hours a day, mostly on high flow due to leaks in tubes. pt also, had hip fx and was in rehab for a while. pt needs refill on albuterol hfa. Percussion Tuner Required: No Allergies crab Allergy (Unknown, Verified 02/08/24 15:13) Hives penicillin V Allergy (Unknown, Verified 02/08/24 15:13) hives Penicillins [PENICILLINS] Allergy (Unknown, Verified 02/08/24 15:13) hives SEASONAL ALLERGIES Allergy (Mild, Uncoded 02/08/24 15:13) RUNNY NOSE Medication List - Last Reconciled 02/08/24 by Juan Carlos Gonzalez MD albuterol sulfate 90 mcg/actuation 2 puffs PO Q6H PRN 30 days amlodipine 5 mg PO DAILY 90 days aspirin (Adult Low Dose Aspirin) 81 mg PO DAILY atorvastatin 40 mg PO BEDTIME [Diapers 3 times a day] docusate sodium 100 mg PO DAILY PRN ferrous sulfate 324 mg PO BIDWM folic acid 1 mg PO DAILY ipratropium-albuterol 0.5 mg-3 mg(2.5 mg base)/3 mL 3 mL inhalation TID levetiracetam 500 mg PO BID 180 days metoprolol tartrate 25 mg PO BID 90 days mirtazapine 30 mg PO BEDTIME 90 days omeprazole 20 mg PO DAILY@0630 polyethylene glycol 3350 17 grams PO DAILY PRN sertraline 50 mg (2 x 25 mg) PO DAILY Do you need a note to return to daycare/school/sports/work: No HPI HPI COPD: Details: THIS 58 YEARS OLD FEMALE OF A THIN BUILD COMES IN WHEELCHAIR, FOR PULMONARY FOLLOW-UP. A FEW MONTHS AGO SHE HAD BROKEN HER HIP AND REQUIRED HIP REPLACEMENT , SHE SPENT ABOUT 6 WEEKS IN THE REHAB FACILITY FROM WHERE SHE WAS DISCHARGED HOME 2 MONTHS AGO. SHE CLAIMS THAT SHE DOES NOT SMOKE ANYMORE. SHE DOES USE O2 CONTINUOUSLY 24 HOURS. COMPLAINS THAT THERE IS SOME LEAK O2 THROUGH THE LONG TUBE WHICH GOT SHOES BY THE CAT, AND SHE IS WAITING FOR REPLACEMENT OF THE TUBE. SHE HAS TO KEEP O2 AT 4 L/MINUTE TO COMPENSATE FOR THE MINOR LEAK THROUGH THE TUBE. DENIES ANY COUGH OR EXPECTORATION DENIES ANY WHEEZING ATTACKS BUT DOES FEEL CONGESTED OFF AND ON. HER MAIN TREATMENT IS DUONEB UPDRAFTS 3 TIMES A DAY AND OXYGEN DENIES SMOKING. HER PAST HISTORY DOES INCLUDE LONG-TIME SMOKING, COPD, WHICH GOT WORSE AFTER COVID INFECTION IN 2021. PAST HISTORY OF USE OF NARCOTICS BUT NOT ANYMORE. HAS HAD A STROKE WITH RIGHT HEMIPLEGIA, FOR OUTDOORS REQUIRING WHEELCHAIR, BUT AT HOME SHE DOES WALK WITH THE WALKER OR A CANE. 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 Hemoptysis Closed subcapital fracture of femur Supplemental oxygen dependent Coronary artery disease History of acute respiratory distress syndrome (ARDS) (~08/2021) Seizure (~11/2021) History of non-ST elevation myocardial infarction (NSTEMI) (~11/2021) Nicotine dependence, cigarettes, uncomplicated Cocaine abuse Respiratory failure with hypoxia Normocytic anemia History of drug abuse Major depression, recurrent Cocaine abuse Acute CHF (congestive heart failure) Hypercapnic respiratory failure, chronic Asymptomatic carotid artery stenosis with infarction Chronic GERD Environmental allergies Anxiety, generalized Lipid disorder Asthma, moderate Surgical History History of left-sided carotid endarterectomy (~09/2012) History of tonsillectomy and adenoidectomy Family History Father Substance abuse Mother Brain cancer Maternal Grandfather History of heart attack Maternal Grandmother History of heart attack Paternal Grandfather No problems noted. Paternal Grandmother No problems noted. Brother No problems noted. Brother No problems noted. Son No problems noted. Daughter No problems noted. Other Mental health disorder Social History Household Members: Children Household Members Other:: daughter Housing: Condominium Do you presently have visiting nurse or other home services: No Unable to assess alcohol history related to: Refusing to respond Alcohol intake: former Patient Tobacco Use Status: Former Tobacco user Tobacco use type: Cigarette Cigarettes Per Day: 2 Years Smoked: COUPLE YEAR AGO PER PT e-Cigarette/Vaping Use: Never Used Second Hand Smoke Exposure: No Advance Directives Date on File: 11/25/21 service: No Current occupational status: disabled Cognitive needs: No Hearing needs: No Vision needs: No Review of Systems Const All systems reviewed & are unremarkable except as noted in HPI and below Eyes Reports no additional complaints ENT Reports no additional complaints (Is set at occasional nasal bleed due to irritation by the nasal cannula) Card Denies chest pain and Denies dyspnea on exertion Resp Denies dyspnea on exertion GI Reports heartburn (Symptoms of GERD treated with omeprazole) Reports no additional complaints Musc Reports abnormal gait (Impaired gait due to right hemiplegia), Reports muscle weakness and Reports other (Right-sided hemiplegia) Skin/Breast Reports system reviewed and no additional complaints, except as documented Neuro Reports abnormal gait (Impaired gait due to right hemiplegia) Psych Reports depression Endo Reports no additional complaints Antwan/Lymph Reports no additional complaints Physical Exam Vital Signs: Last Vital Signs Pulse 113 H 02/08/24 14:43 BP 110/62 02/08/24 14:43 Pulse Ox 97 02/08/24 14:43 Oxygen Delivery Method Nasal Cannula 02/08/24 14:43 Oxygen Flow Rate 4 02/08/24 14:43 Const Other: Chronically sick looking, of a thin build, and somewhat emaciated. General: comfortable (in wheelchair ), no acute distress, alert and awake Orientation/consciousness: patient oriented x3 HEENT Head: Yes normal to inspection General nose exam: No nasal polyps present and No nasal discharge present Face and sinus: Yes sinuses nontender Mouth: oropharynx normal Throat: Yes posterior oropharynx normal Eyes General: appearance normal, both eyes and all related structures Neck Neck: Yes normal visual inspection, Yes no lymphadenopathy, Yes trachea midline and Yes no JVD Thyroid: Thyroid normal Chest Chest palpation & inspection: normal inspection of the chest, normal palpation of entire chest wall and no tenderness Resp Other: Percussion note is hyper resonant. Breath sounds are distant with prolonged expiratory phase. No wheezes or crepitations are heard. Cardio Palpation: normal PMI Rate: regular rate Rhythm: regular rhythm Heart sounds: no gallops and no murmurs GI Palpation (GI): Soft to palpation, nontender, No hepatosplenomegaly present and no masses Auscultation: normal bowel sounds Back/Spine/Pelvis Thoracic/Lumbar Spine: thoracic and lumbar spine normal to inspection and thoraco-lumbar ROM limited Skin General skin exam: no rashes or lesions noted Neuro General: patient oriented x3 and No no focal motor deficits (Has right hemiplegia) Cranial nerves: Yes CN's II-XII intact bilaterally Extrem General: Yes normal to inspection, Yes no clubbing, cyanosis or edema and Yes no calf tenderness Psych Appearance: grossly normal and well kempt Speech and movement: Normal speech and movement present Assessment & Plan Assessment & Plan (1) Respiratory failure with hypoxia: Comment: Patient does have chronic hypoxemia and is dependent on oxygen. Using 3-4 L/minute continuously, Advised : Code(s): J96.91 - Respiratory failure, unspecified with hypoxia Category: Medical Plan: Check O2 sat frequently. As long as it is 90 and above she can use only 3 L/minute . She was asking about getting a POC. ( O2 conserving device ) I explained that she probably will not qualify as she needs 3-4 L /mt and she will not be able to have 6 minutes walk test . (2) COPD (chronic obstructive pulmonary disease): Comment: She does have chronic obstructive pulmonary disease secondary to her long-time smoking. It seems to be fairly stable at this time. Code(s): J44.9 - Chronic obstructive pulmonary disease, unspecified Category: Medical Qualifiers: COPD type: emphysema Emphysema type: panlobular Qualified Code(s): J43.1 - Panlobular emphysema Plan: Continue ipratropium-albuterol solution in the nebulizer use 3 times a day regularly, And may use the 4th time if she has to use on an emergency basis. (3) Nicotine dependence, cigarettes, uncomplicated: Comment: Patient has lifelong history of smoking. Claims that she has cut down to about 2 cigarettes a day. She was in annual lung screening program but has missed it since last year. She is being followed for a small nodular density. Code(s): F17.210 - Nicotine dependence, cigarettes, uncomplicated Category: Medical Plan: Advised to join the lung screening program again for which she is referred Advise that she must quit smoking completely. Orders: Referrals Thoracic/General Surgery Referral F17.210 - Nicotine dependence, cigarettes, uncomplicated, J98.4 - Other disorders of lung Coding Level of Care Code Est Pt Level 4 (70011) Diagnoses Respiratory failure with hypoxia J96.91 Panlobular emphysema J43.1 COPD type: emphysema Emphysema type: panlobular Nicotine dependence, cigarettes, uncomplicated F17.210
[2024-02-08 14:43] VITALS: BP 110/62; PULSE 113; O2SAT 97
== END 2024-02-08 15:29 | disposition home or self-care (01) ==
PROVIDERS: PCP Internal Medicine; Visit Provider Internal Medicine
DX: J96.91 Respiratory failure, unspecified with hypoxia (principal); J43.1 Panlobular emphysema; F17.210 Nicotine dependence, cigarettes, uncomplicated
CPT/HCPCS: 99214

== ENCOUNTER → 2024-02-08 14:29 | Outpatient (BNVA) | payer OTHER, SELFPAY | PROVIDERS: PCP Internal Medicine; Visit Provider Internal Medicine | DX: J96.91 Respiratory failure, unspecified with hypoxia (principal); J43.1 Panlobular emphysema; F17.210 Nicotine dependence, cigarettes, uncomplicated | CPT/HCPCS: 99212 ==

== ENCOUNTER 2024-03-02 11:25 | Outpatient (AMB) | payer OTHER, SELFPAY ==
--- NOTE | 2024-03-02 11:30 | A.OFFPC_ITS ---
Intake Visit Reasons: Meds Allergies crab Allergy (Unknown, Verified 03/02/24 12:36) Hives penicillin V Allergy (Unknown, Verified 03/02/24 12:36) hives Penicillins [PENICILLINS] Allergy (Unknown, Verified 03/02/24 12:36) hives SEASONAL ALLERGIES Allergy (Mild, Uncoded 02/08/24 15:13) RUNNY NOSE Medication List - Last Reconciled 03/02/24 by Brianna Gonzalez MD albuterol sulfate 90 mcg/actuation 2 puffs PO Q6H PRN 30 days amlodipine 5 mg PO DAILY 90 days aspirin (Adult Low Dose Aspirin) 81 mg PO DAILY atorvastatin 40 mg PO BEDTIME [Diapers 3 times a day] docusate sodium 100 mg PO DAILY PRN ferrous sulfate 324 mg PO BIDWM folic acid 1 mg PO DAILY ipratropium-albuterol 0.5 mg-3 mg(2.5 mg base)/3 mL 3 mL inhalation TID levetiracetam 500 mg PO BID 180 days metoprolol tartrate 25 mg PO BID 90 days mirtazapine 30 mg PO BEDTIME 90 days omeprazole 20 mg PO DAILY@0630 polyethylene glycol 3350 17 grams PO DAILY PRN sertraline 50 mg (2 x 25 mg) PO DAILY Tobacco use date assessed: 03/02/24 Dental Screening Dental Screen Date: 03/02/24 Did you have a dental visit in the last 12 months?: No Did you have a dental problem in the last 6 months where you did not have access to dental care?: No Was dental information given to patient?: No HPI Meds HPI Details Patient is a 58-year-old female, with a history of chronic hypoxic respiratory failure on 3 L of supplemental oxygen, noncompliant with the medical advice, history of CVA with residual right-sided hemiparesis, history of seizure disorder, coronary artery disease, depression, takotsubo cardiomyopathy. Last set of labs done in December showed hemoglobin in 9 range We need to repeat CBC again Patient notified to have labs done, it is difficult for patient to leave due to her mobility situation I have placed order, whenever she has a chance she need to come in and have the labs done She has appointment with insurance specialist 12 April at 14:00 patient notified about the appointment is height important that she show up for this appointment She may also do labs at that visit. She continued to have pain in multiple joints and in her body She is requesting script for gabapentin, which I have sent for 300 mg to be taken at night She is to stop taking mirtazapine that she was taking at night to sleep 30 mg. Patient agree Depression and anxiety is stable Medication list reviewed All medication that are prescribed from primary care office sent for refill HPI Comments History of Present Illness Details This is a longitudinal relationship between me and the patient. Ongoing care provided, patient was provided time to ask questions [facility] Medical History Seizure (~11/2021) History of multiple cerebrovascular accidents (CVAs) Hemiparesis affecting right side as late effect of cerebrovascular accident Aphasia History of non-ST elevation myocardial infarction (NSTEMI) (~11/2021) History of acute respiratory distress syndrome (ARDS) (~08/2021) Coronary artery disease Takotsubo cardiomyopathy COPD (chronic obstructive pulmonary disease) Respiratory failure with hypoxia Oxygen dependent Personal history of nicotine dependence Hemoptysis Closed subcapital fracture of femur Cocaine abuse Hypertensive emergency Normocytic anemia History of drug abuse Cocaine abuse Major depression, recurrent Acute CHF (congestive heart failure) Hypercapnic respiratory failure, chronic Asymptomatic carotid artery stenosis with infarction Chronic GERD Environmental allergies Anxiety, generalized Lipid disorder Asthma, moderate Surgical History History of left-sided carotid endarterectomy (~09/2012) History of tonsillectomy and adenoidectomy Family History Father Substance abuse Mother Brain cancer Maternal Grandfather History of heart attack Maternal Grandmother History of heart attack Paternal Grandfather No problems noted. Paternal Grandmother No problems noted. Brother No problems noted. Brother No problems noted. Son No problems noted. Daughter No problems noted. Other Mental health disorder Social History Household Members: Children Household Members Other:: daughter Housing: Condominium Do you presently have visiting nurse or other home services: No Unable to assess alcohol history related to: Refusing to respond Alcohol intake: former Patient Tobacco Use Status: Former Tobacco user Tobacco use type: Cigarette Cigarettes Per Day: 2 Years Smoked: COUPLE YEAR AGO PER PT e-Cigarette/Vaping Use: Never Used Second Hand Smoke Exposure: No Advance Directives Date on File: 11/25/21 service: No Current occupational status: disabled Cognitive needs: No Hearing needs: No Vision needs: No Questionnaire Thrive Questionnaire Date Thrive assessed: 01/03/24 AUDIT C Alcohol Use Questionnaire (AUDIT-C) 1. How often do you have a drink containing alcohol?: Never 3. How often do you have six or more drinks on one occasion?: Never Total Score: 0 Score Reviewed/Action Taken: Yes SAGAR-7 AMB Questionnaire SAGAR-7 Date SAGAR - 7 assessed: 10/20/22 Source: Developed by Drs. Hemant Eller, Sue Christensen, Jamey Drummond and colleagues, with an educational mario alberto from [employer]. Review of Systems Const Denies chills and Denies fever(s) ENT Denies epistaxis and Denies nasal discharge Card Denies chest pain Resp Denies chest congestion and Denies hemoptysis GI Denies diarrhea and Denies nausea Skin/Breast Denies rash Neuro Reports no additional complaints Psych Reports no additional complaints Endo Reports no additional complaints Physical exam (Primary Care) Tobacco/Smoking Status: Tobacco use Status Tobacco use date assessed 03/02/24 03/02/24 12:37 Patient Tobacco Use Status Former Tobacco user 03/02/24 11:31 Tobacco use type Cigarette 03/02/24 11:31 e-Cigarette/Vaping Use Never Used 03/02/24 11:31 Thrive Assessment: Date of Thrive Assessment Date Thrive assessed 01/03/24 03/02/24 11:31 Telehealth Telehealth Telehealth Platform: [facility] Location of provider rendering services: practice address Location of patient: address on file Patient Identification confirmed using: Name, : Yes Telehealth method: video (attempted) Patient verbally consented to treatment: Yes Patient verbally consented to billing insurance company: Yes Patient informed of any privacy concerns related to visit: Yes Assessment and Plan Assessment & Plan (1) Anemia: Code(s): D64.9 - Anemia, unspecified Qualifiers: Anemia type: iron deficiency Iron deficiency anemia type: inadequate dietary iron intake Qualified Code(s): D50.8 - Other iron deficiency anemias (2) Major depression, recurrent: Code(s): F33.9 - Major depressive disorder, recurrent, unspecified Qualifiers: Active/Remission status: in partial remission Qualified Code(s): F33.41 - Major depressive disorder, recurrent, in partial remission (3) Chronic lung disease: Code(s): J98.4 - Other disorders of lung (4) Chronic GERD: Code(s): K21.9 - Gastro-esophageal reflux disease without esophagitis (5) COPD (chronic obstructive pulmonary disease): Comment: She does have chronic obstructive pulmonary disease secondary to her long-time smoking. It seems to be fairly stable at this time. Code(s): J44.9 - Chronic obstructive pulmonary disease, unspecified Qualifiers: COPD type: emphysema Emphysema type: panlobular Qualified Code(s): J43.1 - Panlobular emphysema (6) Lipid disorder: Code(s): E78.9 - Disorder of lipoprotein metabolism, unspecified (7) Seizure: Code(s): R56.9 - Unspecified convulsions (8) Hemiparesis affecting right side as late effect of cerebrovascular accident: Code(s): I69.351 - Hemiplegia and hemiparesis following cerebral infarction affecting right dominant side (9) Oxygen dependent: Code(s): Z99.81 - Dependence on supplemental oxygen (10) History of multiple cerebrovascular accidents (CVAs): Comment: (TIA 11/2011; CVA/left hemiparesis 01/2013 - resolved;b/l L>R [place] infarcts 04/2016) Code(s): Z86.73 - Personal history of transient ischemic attack (TIA), and cerebral infarction without residual deficits (11) Urine incontinence: Code(s): R32 - Unspecified urinary incontinence Qualifiers: Urinary Incontinence type: mixed stress and urge incontinence Qualified Code(s): N39.46 - Mixed incontinence (12) Moderate malnutrition: Code(s): E44.0 - Moderate protein-calorie malnutrition (13) Takotsubo cardiomyopathy: Code(s): I51.81 - Takotsubo syndrome Plan Patient is a 58-year-old female, with a history of chronic hypoxic respiratory failure on 3 L of supplemental oxygen, noncompliant with the medical advice, history of CVA with residual right-sided hemiparesis, history of seizure disorder, coronary artery disease, depression, takotsubo cardiomyopathy. Last set of labs done in December showed hemoglobin in 9 range We need to repeat CBC again Patient notified to have labs done, it is difficult for patient to leave due to her mobility situation I have placed order, whenever she has a chance she need to come in and have the labs done She has appointment with insurance specialist 12 April at 14:00 patient notified about the appointment is height important that she show up for this appointment She may also do labs at that visit. She continued to have pain in multiple joints and in her body She is requesting script for gabapentin, which I have sent for 300 mg to be taken at night She is to stop taking mirtazapine that she was taking at night to sleep 30 mg. Patient agree Depression and anxiety is stable Medication list reviewed All medication that are prescribed from primary care office sent for refill 48 minute spent in care of this patient including reviewing the charts, previous labs, addressing medical issues, discussing medications, documentation, ordering labs, addressing refills of medications Orders: Orders TSH reflex Free T4 Today D50.8 - Other iron deficiency anemias, E78.9 - Disorder of lipoprotein metabolism, unspecified, F33.41 - Major depressive disorder, recurrent, in partial remission, J43.1 - Panlobular emphysema, J98.4 - Other disorders of lung, K21.9 - Gastro-esophageal reflux disease without esophagitis, R56.9 - Unspecified convulsions Vitamin D 25-OH (D2 and D3) Today D50.8 - Other iron deficiency anemias, E78.9 - Disorder of lipoprotein metabolism, unspecified, F33.41 - Major depressive disorder, recurrent, in partial remission, J43.1 - Panlobular emphysema, J98.4 - Other disorders of lung, K21.9 - Gastro-esophageal reflux disease without esophagitis, R56.9 - Unspecified convulsions Ferritin Today D50.8 - Other iron deficiency anemias, E78.9 - Disorder of lipoprotein metabolism, unspecified, F33.41 - Major depressive disorder, recurrent, in partial remission, J43.1 - Panlobular emphysema, J98.4 - Other disorders of lung, K21.9 - Gastro-esophageal reflux disease without esophagitis, R56.9 - Unspecified convulsions Complete Blood Count Auto Diff Today D50.8 - Other iron deficiency anemias, E78.9 - Disorder of lipoprotein metabolism, unspecified, F33.41 - Major depressive disorder, recurrent, in partial remission, J43.1 - Panlobular emphysema, J98.4 - Other disorders of lung, K21.9 - Gastro-esophageal reflux disease without esophagitis, R56.9 - Unspecified convulsions Comprehensive Met. Panel Today D50.8 - Other iron deficiency anemias, E78.9 - Disorder of lipoprotein metabolism, unspecified, F33.41 - Major depressive disorder, recurrent, in partial remission, J43.1 - Panlobular emphysema, J98.4 - Other disorders of lung, K21.9 - Gastro-esophageal reflux disease without esophagitis, R56.9 - Unspecified convulsions Vitamin B12 Today D50.8 - Other iron deficiency anemias, E78.9 - Disorder of lipoprotein metabolism, unspecified, F33.41 - Major depressive disorder, recurrent, in partial remission, J43.1 - Panlobular emphysema, J98.4 - Other disorders of lung, K21.9 - Gastro-esophageal reflux disease without esophagitis, R56.9 - Unspecified convulsions Medications: New gabapentin 300 mg PO BEDTIME 90 caps 0RF Changed From sertraline 50 mg (2 x 25 mg) PO DAILY 90 tabs 0RF Depression To sertraline 50 mg PO DAILY 90 tabs 0RF Depression Refilled amlodipine 5 mg PO DAILY 90 days 90 tabs 0RF ferrous sulfate 324 mg PO BIDWM 60 tabs 3RF folic acid 1 mg PO DAILY 90 tabs 3RF levetiracetam 500 mg PO BID 180 days 360 tabs 1RF aspirin (Adult Low Dose Aspirin) 81 mg PO DAILY 90 tabs 0RF atorvastatin 40 mg PO BEDTIME 90 tabs 0RF Cholesterol docusate sodium 100 mg PO DAILY PRN 90 caps 0RF Constipation metoprolol tartrate 25 mg PO BID 90 days 180 tabs 0RF omeprazole 20 mg PO DAILY@0630 90 caps 0RF Acid reflux Discontinued mirtazapine Discontinued Reason: Doctor's Order 30 mg PO BEDTIME 90 days 90 tabs 0RF Coding Level of Care Code Tele Est Pt Level 5 (71476) Complex EM visit Add On G2211 Diagnoses Iron deficiency anemia secondary to inadequate dietary iron intake D50.8 Anemia type: iron deficiency Iron deficiency anemia type: inadequate dietary iron intake Recurrent major depressive disorder, in partial remission F33.41 Active/Remission status: in partial remission Chronic lung disease J98.4 Chronic GERD K21.9 Panlobular emphysema J43.1 COPD type: emphysema Emphysema type: panlobular Lipid disorder E78.9 Seizure R56.9 Hemiparesis affecting right side as late effect of cerebrovascular accident I69.351 Oxygen dependent Z99.81 History of multiple cerebrovascular accidents (CVAs) Z86.73 Mixed stress and urge urinary incontinence N39.46 Urinary Incontinence type: mixed stress and urge incontinence Moderate malnutrition E44.0 Takotsubo cardiomyopathy I51.81 Comment
== END 2024-03-02 16:28 | disposition home or self-care (01) ==
PROVIDERS: PCP Internal Medicine; Visit Provider Internal Medicine
DX: J43.1 Panlobular emphysema (principal); F33.41 Major depressive disorder, recurrent, in partial remission; R56.9 Unspecified convulsions; I69.351 Hemiplegia and hemiparesis following cerebral infarction affecting right dominant side; E44.0 Moderate protein-calorie malnutrition; D50.8 Other iron deficiency anemias; J98.4 Other disorders of lung; K21.9 Gastro-esophageal reflux disease without esophagitis; E78.9 Disorder of lipoprotein metabolism, unspecified; Z99.81 Dependence on supplemental oxygen; Z86.73 Personal history of transient ischemic attack (TIA), and cerebral infarction without residual deficits; N39.46 Mixed incontinence
CPT/HCPCS: 99215; G2211

== ENCOUNTER 2024-05-01 15:07 | Outpatient (AMB) | payer OTHER, SELFPAY ==
[2024-05-01 15:22] VITALS: BP 130/72; PULSE 68; O2SAT 100
--- NOTE | 2024-05-01 15:22 | MHC.OFFVIS ---
Vital Signs 05/01/24 15:22 Height 4 ft 11 in BP 130/72 Blood Pressure Location Lt brachial Position Sitting Pulse 68 Pulse Source Pulse Oximeter Pulse Oximetry (%) 100 Oxygen Delivery Method Nasal Cannula Oxygen Flow Rate 4 Intake Visit Reasons: copd Intake Note: pt is here for follow up and and states her breathing is not good, oxygen is 24 hours a day. Custodian Athletic Equipment Required: No Allergies crab Allergy (Unknown, Verified 05/01/24 15:46) Hives penicillin V Allergy (Unknown, Verified 05/01/24 15:46) hives Penicillins [PENICILLINS] Allergy (Unknown, Verified 05/01/24 15:46) hives SEASONAL ALLERGIES Allergy (Mild, Uncoded 05/01/24 15:46) RUNNY NOSE Medication List - Last Reconciled 05/01/24 by Juan Carlos Gonzalez MD albuterol sulfate 90 mcg/actuation 2 puffs PO Q6H PRN 30 days amlodipine 5 mg PO DAILY 90 days aspirin (Adult Low Dose Aspirin) 81 mg PO DAILY atorvastatin 40 mg PO BEDTIME [Diapers 3 times a day] docusate sodium 100 mg PO DAILY PRN ferrous sulfate 324 mg PO BIDWM folic acid 1 mg PO DAILY gabapentin 300 mg PO BEDTIME ipratropium-albuterol 0.5 mg-3 mg(2.5 mg base)/3 mL 3 mL inhalation TID levetiracetam 500 mg PO BID 180 days metoprolol tartrate 25 mg PO BID 90 days omeprazole 20 mg PO DAILY@0630 polyethylene glycol 3350 17 grams PO DAILY PRN sertraline 50 mg PO DAILY Do you need a note to return to daycare/school/sports/work: No HPI HPI copd: Details: THIS 58 YEARS OLD FEMALE IS HERE FOR HER ROUTINE FOLLOW-UP AFTER 4 MONTHS . SHE HAS PAST HISTORY OF LONG-TIME SMOKING, COPD, WHICH GOT WORSE AFTER COVID INFECTION IN 2021. ALSO PAST HISTORY OF USE OF NARCOTICS BUT NOT ANYMORE. HAS HAD A STROKE WITH RIGHT HEMIPLEGIA, REQUIRING WHEELCHAIR FOR OUT DOORS . AT HOME SHE DOES WALK WITH THE WALKER OR A CANE. SHE CLAIMS THAT SHE HAS QUIT SMOKING. SHE CONTINUES TO HAVE INTERMITTENT COUGH. SHE CONTINUES TO FEEL THAT SHE CAN NOT TAKE DEEP BREATHS. AND REMAINS WEAK AND SHORT OF BREATH . SHE HAD A CT SCAN OF THE CHEST IN SEPTEMBER OF THIS YEAR. THEN I HAD REFERRED HER FOR LUNG SCREENING PROGRAM. HER CT SCAN FINDINGS AND HER CASE WAS DISCUSSED IN MULTIDISCIPLINARY MEETING , BACK IN FEBRUARY. SHE DOES HAVE MULTIPLE PULMONARY NODULES ON THE CT SCAN WHICH NEEDED CLOSE FOLLOW-UP. IN THE MULTIDISCIPLINARY COMMITTEE MEETING IT WAS RECOMMENDED THAT SHE SHOULD HAVE PET SCAN, INITIALLY SHE HAD DECLINED TO UNDERGO PET SCAN BUT FINALLY HAS AGREED, WHICH IS NOW SCHEDULED IN EARLY PART OF . [facility] Medical History Seizure (~11/2021) History of multiple cerebrovascular accidents (CVAs) Hemiparesis affecting right side as late effect of cerebrovascular accident Aphasia History of non-ST elevation myocardial infarction (NSTEMI) (~11/2021) History of acute respiratory distress syndrome (ARDS) (~08/2021) Coronary artery disease Takotsubo cardiomyopathy COPD (chronic obstructive pulmonary disease) Respiratory failure with hypoxia Oxygen dependent Personal history of nicotine dependence Hemoptysis Closed subcapital fracture of femur Cocaine abuse Hypertensive emergency Normocytic anemia History of drug abuse Cocaine abuse Major depression, recurrent Acute CHF (congestive heart failure) Hypercapnic respiratory failure, chronic Asymptomatic carotid artery stenosis with infarction Chronic GERD Environmental allergies Anxiety, generalized Lipid disorder Asthma, moderate Surgical History History of left-sided carotid endarterectomy (~09/2012) History of tonsillectomy and adenoidectomy Family History Father Substance abuse Mother Brain cancer Maternal Grandfather History of heart attack Maternal Grandmother History of heart attack Paternal Grandfather No problems noted. Paternal Grandmother No problems noted. Brother No problems noted. Brother No problems noted. Son No problems noted. Daughter No problems noted. Other Mental health disorder Social History Household Members: Children Household Members Other:: daughter Housing: Condominium Do you presently have visiting nurse or other home services: No Unable to assess alcohol history related to: Refusing to respond Alcohol intake: former Patient Tobacco Use Status: Former Tobacco user Tobacco use type: Cigarette Cigarettes Per Day: 2 Years Smoked: COUPLE YEAR AGO PER PT e-Cigarette/Vaping Use: Never Used Second Hand Smoke Exposure: No Advance Directives Date on File: 11/25/21 service: No Current occupational status: disabled Cognitive needs: No Hearing needs: No Vision needs: No Review of Systems Const All systems reviewed & are unremarkable except as noted in HPI and below Eyes Reports no additional complaints ENT Reports no additional complaints (Is set at occasional nasal bleed due to irritation by the nasal cannula) Card Denies chest pain and Denies dyspnea on exertion Resp Denies dyspnea on exertion GI Reports heartburn (Symptoms of GERD treated with omeprazole) Reports no additional complaints Musc Reports abnormal gait (Impaired gait due to right hemiplegia), Reports muscle weakness and Reports other (Right-sided hemiplegia) Skin/Breast Reports system reviewed and no additional complaints, except as documented Neuro Reports abnormal gait (Impaired gait due to right hemiplegia) Psych Reports depression Endo Reports no additional complaints Antwan/Lymph Reports no additional complaints Physical Exam Vital Signs: Last Vital Signs Pulse 68 05/01/24 15:22 BP 130/72 05/01/24 15:22 Pulse Ox 100 05/01/24 15:22 Oxygen Delivery Method Nasal Cannula 05/01/24 15:22 Oxygen Flow Rate 4 05/01/24 15:22 Const Other: Chronically sick looking, of a thin build, and somewhat emaciated. General: comfortable (in wheelchair ), no acute distress, alert and awake Orientation/consciousness: patient oriented x3 HEENT Head: Yes normal to inspection General nose exam: No nasal polyps present and No nasal discharge present Face and sinus: Yes sinuses nontender Mouth: oropharynx normal Throat: Yes posterior oropharynx normal Eyes General: appearance normal, both eyes and all related structures Neck Neck: Yes normal visual inspection, Yes no lymphadenopathy, Yes trachea midline and Yes no JVD Thyroid: Thyroid normal Chest Chest palpation & inspection: normal inspection of the chest, normal palpation of entire chest wall and no tenderness Resp Other: Percussion note is hyper resonant. Breath sounds are distant with prolonged expiratory phase. No wheezes or crepitations are heard. Cardio Palpation: normal PMI Rate: regular rate Rhythm: regular rhythm Heart sounds: no gallops and no murmurs GI Palpation (GI): Soft to palpation, nontender, No hepatosplenomegaly present and no masses Auscultation: normal bowel sounds Back/Spine/Pelvis Thoracic/Lumbar Spine: thoracic and lumbar spine normal to inspection and thoraco-lumbar ROM limited Skin General skin exam: no rashes or lesions noted Neuro General: patient oriented x3 and No no focal motor deficits (Has right hemiplegia) Cranial nerves: Yes CN's II-XII intact bilaterally Extrem General: Yes normal to inspection, Yes no clubbing, cyanosis or edema and Yes no calf tenderness Psych Appearance: grossly normal and well kempt Speech and movement: Normal speech and movement present Assessment & Plan Assessment & Plan (1) COPD (chronic obstructive pulmonary disease): Comment: She does have chronic obstructive pulmonary disease secondary to her long-time smoking. It seems to be fairly stable at this time. Though she complains of being short of breath . I think that is more due to her general debilitation. Code(s): J44.9 - Chronic obstructive pulmonary disease, unspecified Category: Medical Qualifiers: COPD type: emphysema Emphysema type: panlobular Qualified Code(s): J43.1 - Panlobular emphysema Plan: Ipratropium-albuterol solution in the nebulizer , use at least 3 times a day. Albuterol HFA 2 puffs Q 6 hours p.r.n. when outdoors (2) Respiratory failure with hypoxia: Comment: Patient does have chronic hypoxemia and is dependent on oxygen. Using 3-4 L/minute continuously, Code(s): J96.91 - Respiratory failure, unspecified with hypoxia Category: Medical Plan: Advised to use O2 by nasal cannula between 2-3 L/minute. The goal is to keep O2 sat 90-92% (3) Nicotine dependence, cigarettes, uncomplicated: Comment: Patient has lifelong history of smoking. Claims that she has quit smoking completely. Since her last visit in January 2024 . Code(s): F17.210 - Nicotine dependence, cigarettes, uncomplicated Category: Medical Plan: Commended for not smoking anymore. And I stress that she should not even think about smoking. (4) Pulmonary nodule 1 cm or greater in diameter: Comment: She does have a few pulmonary nodules and 1 being close to 1 cm. Code(s): R91.1 - Solitary pulmonary nodule Category: Medical Plan: Case has been discussed in the multidisciplinary meeting. She is a poor risk for fine-needle aspiration biopsy. A PET SCAN HAS BEEN RECOMMENDED , WHICH IS SCHEDULED IN THE . Coding Level of Care Code Est Pt Level 4 (58623) Diagnoses Panlobular emphysema J43.1 COPD type: emphysema Emphysema type: panlobular Respiratory failure with hypoxia J96.91 Nicotine dependence, cigarettes, uncomplicated F17.210 Pulmonary nodule 1 cm or greater in diameter R91.1
== END 2024-05-01 15:43 | disposition home or self-care (01) ==
PROVIDERS: PCP Internal Medicine; Visit Provider Internal Medicine
DX: J43.1 Panlobular emphysema (principal); J96.91 Respiratory failure, unspecified with hypoxia; F17.210 Nicotine dependence, cigarettes, uncomplicated; R91.1 Solitary pulmonary nodule
CPT/HCPCS: 99214

== ENCOUNTER → 2024-05-01 15:07 | Outpatient (BNVA) | payer OTHER, SELFPAY | PROVIDERS: PCP Internal Medicine; Visit Provider Internal Medicine | DX: J43.1 Panlobular emphysema (principal); J96.91 Respiratory failure, unspecified with hypoxia; R91.1 Solitary pulmonary nodule; F17.210 Nicotine dependence, cigarettes, uncomplicated | CPT/HCPCS: 99212 ==

== ENCOUNTER 2024-07-10 13:38 | Outpatient (REF) | payer OTHER, SELFPAY ==
[2024-07-10 16:45] LABS: MANUAL DIFF FLAG NO
[2024-07-10 16:48] LABS: Basophils Percent Auto 0.5 % (0-2); Eosinophils Absolute Auto 0.2 X10*3/uL (0.0-0.4); Eosinophils Percent Auto 2.8 % (0-4); Hematocrit 35.5 % (37.0-47.0); Imm Gran Abs Auto 0.01 X10*3/uL (0.00-0.03); Imm Gran Pct Auto 0.2 % (0.0-0.4); Lymphocytes Absolute Auto 1.7 X10*3/uL (1.2-4.9); Lymphocytes Percent Auto 26.6 % (20-40); Mean Corpuscular Hemoglobin 27.9 pg (27.0-33.0); Mean Corpuscular Volume 90.1 fL (80.0-98.0); Mean Platelet Volume 10.3 fL (9.4-12.3); Monocytes Absolute Auto 0.7 X10*3/uL (0.1-1.2); Monocytes Percent Auto 10.2 % (2-11); Neutrophils Absolute Auto 3.8 x10*3/uL (2.0-8.3); Neutrophils Percent Auto 59.7 % (45-73); Platelet Count 253 X10*3/uL (160-400); Red Blood Count 3.94 X10*6/uL (4.20-5.50); Red Cell Distribution Width 13.7 % (11.0-16.0); White Blood Count 6.4 X10*3/uL (4.8-10.8)
[2024-07-10 17:12] LABS: Alanine Aminotransferase 13 U/L (0-31); Albumin Level 4.3 g/dL (3.5-5.0); Alkaline Phosphatase 70 U/L (39-117); Anion Gap 14 (12-20); Aspartate Amino Transferase 26 U/L (5-31); Bilirubin Total 0.3 mg/dL (0.0-1.0); Blood Urea Nitrogen 7 mg/dL (9-16); Calcium 9.9 mg/dL (8.4-10.2); Carbon Dioxide 33 mmol/L (22-29); Chloride 95 mmol/L (96-108); Estimated Glomerular Filt Rate > 60; Glucose Random 73 mg/dL (60-115); Potassium 4.4 mmol/L (3.3-5.1); Sodium 138 mmol/L (135-145); Total Protein 7.5 g/dL (6.5-8.0)
[2024-07-10 17:34] LABS: Vitamin B12 323 pg/mL (200-900)
[2024-07-10 17:37] LABS: Ferritin 101 ng/mL (10-250); TSH reflex Free T4 0.64 uIU/mL (0.32-4.0)
[2024-07-13 01:03] LABS: LDL Cholesterol Direct 69 mg/dL (<100)
== END 2024-07-10 13:39 | disposition home or self-care (01) ==
LOC: HO.HMGCLDS 13:38
PROVIDERS: PCP Internal Medicine; Visit Provider Internal Medicine
DX: E44.0 Moderate protein-calorie malnutrition (principal); R56.9 Unspecified convulsions; R63.0 Anorexia; R53.1 Weakness; Z23 Encounter for immunization; D64.9 Anemia, unspecified; J98.4 Other disorders of lung; F33.41 Major depressive disorder, recurrent, in partial remission; N39.46 Mixed incontinence; K21.9 Gastro-esophageal reflux disease without esophagitis; I51.81 Takotsubo syndrome; I69.351 Hemiplegia and hemiparesis following cerebral infarction affecting right dominant side; J44.9 Chronic obstructive pulmonary disease, unspecified; I25.2 Old myocardial infarction; Z99.3 Dependence on wheelchair; Z99.81 Dependence on supplemental oxygen
CPT/HCPCS: 36415; 80053; 82607; 82728; 83721; 84443; 85025; 90471; 90472; 90656; 90677; 96127; 99212

== ENCOUNTER 2024-07-10 13:38 | Outpatient (AMB) | payer OTHER, SELFPAY ==
--- NOTE | 2024-07-10 13:44 | A.OFFPC_ITS ---
Vital Signs 07/10/24 13:47 Height 4 ft 11 in BMI Reason not done Patient refused/unable BP 112/60 Blood Pressure Location Lt brachial Position Sitting Pulse 93 Pulse Source Pulse Oximeter Pulse Oximetry (%) 61 L Oxygen Delivery Method Nasal Cannula Intake Visit Reasons: General Pain Allergies crab Allergy (Unknown, Verified 05/01/24 15:46) Hives penicillin V Allergy (Unknown, Verified 05/01/24 15:46) hives Penicillins [PENICILLINS] Allergy (Unknown, Verified 05/01/24 15:46) hives SEASONAL ALLERGIES Allergy (Mild, Uncoded 05/01/24 15:46) RUNNY NOSE Medication List - Last Reconciled 07/10/24 by Brianna Gonzalez MD albuterol sulfate 90 mcg/actuation 2 puffs PO Q6H PRN 30 days amlodipine 5 mg PO DAILY 90 days aspirin (Adult Low Dose Aspirin) 81 mg PO DAILY atorvastatin 40 mg PO BEDTIME [Diapers 3 times a day] docusate sodium 100 mg PO DAILY PRN ferrous sulfate 324 mg PO BIDWM folic acid 1 mg PO DAILY gabapentin 300 mg PO BEDTIME ipratropium-albuterol 0.5 mg-3 mg(2.5 mg base)/3 mL 3 mL inhalation TID levetiracetam 500 mg PO BID 180 days metoprolol tartrate 25 mg PO BID 90 days omeprazole 20 mg PO DAILY@0630 polyethylene glycol 3350 17 grams PO DAILY PRN sertraline 50 mg PO DAILY Tobacco use date assessed: 07/10/24 Dental Screening Dental Screen Date: 07/10/24 Did you have a dental visit in the last 12 months?: No Did you have a dental problem in the last 6 months where you did not have access to dental care?: No Was dental information given to patient?: No HPI General Pain HPI Details Patient is a 58-year-old female, with a history of chronic hypoxic respiratory failure on 3 L of supplemental oxygen, history of CVA with residual right-sided hemiparesis, history of seizure disorder, coronary artery disease, depression, takotsubo cardiomyopathy. Do not want to see neurologist However continued to see network and threat support specialist She is here today with a friend Sukhdeep who knows patient for the past 30+ years She has been moved to a new apartment at [facility] and is in process to get HAND SALTER service Previously patient was been taken care of her daughter who was not doing a good job And was smoking so patient continued to be exposed to secondhand smoke Last set of labs done in December showed hemoglobin in 9 range We need to repeat CBC again After stroke patient have right-sided hemiparesis and is wheelchair-bound She is also having difficulty eating and has no appetite 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 We will try to get her boost to add calories She continued to have pain in multiple joints and in her body She was started on gabapentin 300 mg at night by Neurology, she is requesting if we can add 1 for the morning which I have Taking mirtazapine to sleep at night Patient has not been taking sertraline 50 mg I have sent the script For anxiety and depression Medication list reviewed She has a black color mole with irregular edges 1 cm x 1 cm in the back left side Patient does not want to see Dermatology at this time we will keep an eye on that [facility] Medical History Seizure (~11/2021) History of multiple cerebrovascular accidents (CVAs) Hemiparesis affecting right side as late effect of cerebrovascular accident Aphasia History of non-ST elevation myocardial infarction (NSTEMI) (~11/2021) History of acute respiratory distress syndrome (ARDS) (~08/2021) Coronary artery disease Takotsubo cardiomyopathy COPD (chronic obstructive pulmonary disease) Respiratory failure with hypoxia Oxygen dependent Personal history of nicotine dependence Hemoptysis Closed subcapital fracture of femur Cocaine abuse Hypertensive emergency Normocytic anemia History of drug abuse Cocaine abuse Major depression, recurrent Acute CHF (congestive heart failure) Hypercapnic respiratory failure, chronic Asymptomatic carotid artery stenosis with infarction Chronic GERD Environmental allergies Anxiety, generalized Lipid disorder Asthma, moderate Surgical History History of left-sided carotid endarterectomy (~09/2012) History of tonsillectomy and adenoidectomy Family History Father Substance abuse Mother Brain cancer Maternal Grandfather History of heart attack Maternal Grandmother History of heart attack Paternal Grandfather No problems noted. Paternal Grandmother No problems noted. Brother No problems noted. Brother No problems noted. Son No problems noted. Daughter No problems noted. Other Mental health disorder Social History Household Members: Children Household Members Other:: daughter Housing: Condominium Do you presently have visiting nurse or other home services: No Unable to assess alcohol history related to: Refusing to respond Alcohol intake: former Patient Tobacco Use Status: Former Tobacco user Tobacco use type: Cigarette Cigarettes Per Day: 2 Years Smoked: COUPLE YEAR AGO PER PT Packs per year/per ci.00 e-Cigarette/Vaping Use: Never Used Second Hand Smoke Exposure: No Advance Directives Date on File: 11/25/21 service: No Current occupational status: disabled Cognitive needs: No Hearing needs: No Vision needs: No Questionnaire PHQ-9 Over the last 2 weeks, how often have you been bothered by any of the following problems? 1. Little interest or pleasure in doing things: more than half the days 2. Feeling down, depressed, or hopeless: several days 3. Trouble falling or staying asleep, or sleeping too much: nearly every day 4. Feeling tired or having little energy: nearly every day 5. Poor appetite or overeating: nearly every day 6. Feeling bad about yourself - or that you are a failure or have let yourself or your family down: several days 7. Trouble concentrating on things, such as reading the newspaper or watching television: several days 8. Moving or speaking so slowly that other people could have noticed. Or the opposite - being so fidgety or restless that you have been moving around a lot more than usual: several days 9. Thoughts that you would be better off or of hurting yourself in some way: not at all Total score: 15 Depression Screening Interpretation: Positive Depression Screening Follow-up: Existing condition and In treatment Depression Screening Done: Yes 13991 - PHQ-9 Billing: Yes Source: Developed by Drs. Hemant Eller, Sue Christensen, Jamey Drummond and colleagues, with an educational mario alberto from [employer]. Thrive Questionnaire Date Thrive assessed: 07/07/24 I am a: Patient What is your living situation today?: I have a steady place to live Within the past 12 months, did the food you bought not last and you didn't have the money to get more?: Sometimes True Within the past 12 months, did you worry whether your food would run out before you got money to buy more?: Sometimes True Do you have trouble paying for medicines?: No Do you have trouble getting transportation to medical appointments?: I choose not to answer this question Do you have trouble paying your heating and electricity bill?: No Do you have trouble taking care of your child, family member or friend?: No Do you have trouble with day-to-day activities such as bathing, preparing meals, shopping, managing finances, etc.?: Yes Are you currently unemployed and looking for a job?: I choose not to answer this question Are you interested in more education?: No Please select the resources that you would like help with: Transportation and Daily support Currently or been in a relationship where the following occur: No concerns reported THRIVE Score: 2 AUDIT C Alcohol Use Questionnaire (AUDIT-C) 1. How often do you have a drink containing alcohol?: Never Total Score: 0 SAGAR-7 AMB Questionnaire SAGAR-7 Date SAGAR - 7 assessed: 10/20/22 Feeling nervous, anxious, or on edge: 2 = More than half the days Not being able to stop or control worryin = Several days Worrying too much about different things: 1 = Several days Trouble relaxin = More than half the days Being so restless that it is hard to sit still: 1 = Several days Becoming easily annoyed or irritable: 0 = Not at all Feeling afraid as if something awful might happen: 1 = Several days Total SAGAR-7 score (0-4 normal; 5-9 mild; 10-14 moderate; 15-21 severe): 8 Source: Developed by Drs. Hemant Eller, Sue Christensen, Jamey Drummond and colleagues, with an educational mario alberto from [employer]. Review of Systems Const Denies chills and Denies fever(s) ENT Denies epistaxis and Denies nasal discharge Card Denies chest pain Resp Denies chest congestion, Denies cough and Denies hemoptysis GI Denies diarrhea and Denies nausea Skin/Breast Denies rash Neuro Reports no additional complaints Psych Reports no additional complaints Endo Reports no additional complaints Physical exam (Primary Care) Vital Signs: Last Vital Signs Pulse 93 07/10/24 13:47 BP 112/60 07/10/24 13:47 Pulse Ox 61 L 07/10/24 13:47 Oxygen Delivery Method Nasal Cannula 07/10/24 13:47 Tobacco/Smoking Status: Tobacco use Status Tobacco use date assessed 07/10/24 07/10/24 13:50 Patient Tobacco Use Status Former Tobacco user 07/10/24 13:45 Tobacco use type Cigarette 07/10/24 13:45 e-Cigarette/Vaping Use Never Used 07/10/24 13:45 PHQ-9: PHQ-9 Score PHQ-9: Total score 15 07/10/24 14:26 Depression Screening Interpretation: Positive Depression Screening Follow-up: Existing condition and In treatment Thrive Assessment: Date of Thrive Assessment Date Thrive assessed 07/07/24 07/10/24 13:45 Currently or been in a relationship where the following occur: No concerns reported Const Other: Weak looking female sitting in wheelchair with right-sided hemiparesis, oxygen cannula in nose General: cooperative, comfortable and no acute distress Orientation/consciousness: patient oriented x3 HENMT Head: Yes normocephalic Eyes General: appearance normal, both eyes and all related structures Neck Neck: Yes supple Resp Other: Not much air movement Effort & Inspection: no cough and no stridor Cardio Rhythm: regular rhythm Heart sounds: S1 normal heart sound present and S2 normal heart sound present Skin General skin exam: turgor normal Neuro General: patient oriented x3 and tone normal Extrem Right lower extremity: no edema Left lower extremity: no edema Office Procedures Flu Questionnaire Does the patient have a severe egg allergy?: No Does the patient have severe life threatening allergies?: No Does the patient have a fever or illness today?: No Has the patient ever had Guillain-Winfield Syndrome?: No Has the patient ever had any past reaction to a flu shot?: No Immunizations Fluarix Triv [id number] (PF) 45 mcg (15 mcg x 3)/0.5 mL IM syringe Performing Provider: Brianna Gonzalez MD Performing Location: [facility] Administered by: Sander De Leon CMA on 07/10/24 14:26 Dose Route Admin Location Dispensed Lot Number Expiration Date [facility] Mechan[employer] Supervisor 0.5 mL IM Left Deltoid 0.5 mL [id number] 03/11/25 [id number] VIS Given Date VIS Provided VIS Publication Date 07/10/24 Single Vaccine 21 Eligibility Eligibility Date Funding Source Not VFC Eligible 07/10/24 Private pneumoc 20-jolene conj-dip cr(PF) 0.5 mL IM syringe Performing Provider: Brianna Gonzalez MD Performing Location: [facility] Administered by: Sander De Leon CMA on 07/10/24 14:26 Dose Route Admin Location Dispensed Lot Number Expiration Date [employer] 0.5 mL IM Right Deltoid 0.5 mL [id number] 08/31/25 [employer] VIS Given Date VIS Provided VIS Publication Date 07/10/24 Single Vaccine 21 Eligibility Eligibility Date Funding Source Not VFC Eligible 07/10/24 Private Coding Level of Care Code Est Pt Level 5 (70869) Complex EM visit Add On G2211 Diagnoses Moderate malnutrition E44.0 Seizure R56.9 Lack of appetite R63.0 Weakness R53.1 Normocytic anemia D64.9 Chronic lung disease J98.4 Recurrent major depressive disorder, in partial remission F33.41 Active/Remission status: in partial remission Mixed stress and urge urinary incontinence N39.46 Urinary Incontinence type: mixed stress and urge incontinence Chronic GERD K21.9 Oxygen dependent Z99.81 Takotsubo cardiomyopathy I51.81 History of non-ST elevation myocardial infarction (NSTEMI) I25.2 Hemiparesis affecting right side as late effect of cerebrovascular accident I69.351 Wheelchair dependence Z99.3 Assessment & Plan Assessment & Plan (1) Moderate malnutrition: Code(s): E44.0 - Moderate protein-calorie malnutrition Category: Medical (2) Seizure: Code(s): R56.9 - Unspecified convulsions Category: Medical (3) Lack of appetite: Code(s): R63.0 - Anorexia Category: Medical (4) Weakness: Code(s): R53.1 - Weakness Category: Medical (5) Normocytic anemia: Code(s): D64.9 - Anemia, unspecified Category: Medical (6) Chronic lung disease: Code(s): J98.4 - Other disorders of lung Category: Medical (7) Major depression, recurrent: Code(s): F33.9 - Major depressive disorder, recurrent, unspecified Category: Medical Qualifiers: Active/Remission status: in partial remission Qualified Code(s): F33.41 - Major depressive disorder, recurrent, in partial remission (8) Urine incontinence: Code(s): R32 - Unspecified urinary incontinence Category: Medical Qualifiers: Urinary Incontinence type: mixed stress and urge incontinence Qualified Code(s): N39.46 - Mixed incontinence (9) Chronic GERD: Code(s): K21.9 - Gastro-esophageal reflux disease without esophagitis Category: Medical (10) Oxygen dependent: Code(s): Z99.81 - Dependence on supplemental oxygen Category: Medical (11) Takotsubo cardiomyopathy: Code(s): I51.81 - Takotsubo syndrome Category: Medical (12) History of non-ST elevation myocardial infarction (NSTEMI): Onset Date: ~11/2021 Comment: (NSTEMI and Seizure - [facility] [place]) Code(s): I25.2 - Old myocardial infarction Category: Medical (13) Hemiparesis affecting right side as late effect of cerebrovascular accident: Code(s): I69.351 - Hemiplegia and hemiparesis following cerebral infarction affecting right dominant side Category: Medical (14) Wheelchair dependence: Code(s): Z99.3 - Dependence on wheelchair Category: Medical Plan Patient is a 58-year-old female, with a history of chronic hypoxic respiratory failure on 3 L of supplemental oxygen, history of CVA with residual right-sided hemiparesis, history of seizure disorder, coronary artery disease, depression, takotsubo cardiomyopathy. Do not want to see neurologist However continued to see network and threat support specialist She is here today with a friend Sukhdeep who knows patient for the past 30+ years She has been moved to a new apartment at [facility] and is in process to get HAND SALTER service Previously patient was been taken care of her daughter who was not doing a good job And was smoking so patient continued to be exposed to secondhand smoke Last set of labs done in December showed hemoglobin in 9 range We need to repeat CBC again After stroke patient have right-sided hemiparesis and is wheelchair-bound She is also having difficulty eating and has no appetite 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 We will try to get her boost to add calories She continued to have pain in multiple joints and in her body She was started on gabapentin 300 mg at night by Neurology, she is requesting if we can add 1 for the morning which I have Taking mirtazapine to sleep at night Patient has not been taking sertraline 50 mg I have sent the script For anxiety and depression Medication list reviewed She has a black color mole with irregular edges 1 cm x 1 cm in the back left side Patient does not want to see Dermatology at this time we will keep an eye on that 45 minutes spent in care of this patient Orders: Orders Ferritin Today D64.9 - Anemia, unspecified, E44.0 - Moderate protein-calorie malnutrition, E78.9 - Disorder of lipoprotein metabolism, unspecified, F33.41 - Major depressive disorder, recurrent, in partial remission, I51.81 - Takotsubo syndrome, I69.351 - Hemiplegia and hemiparesis following cerebral infarction affecting right dominant side, J98.4 - Other disorders of lung, K21.9 - Gastro-e sophageal reflux disease without esophagitis, N39.46 - Mixed incontinence, R56.9 - Unspecified convulsions, Z99.81 - Dependence on supplemental oxygen Complete Blood Count Auto Diff Today D64.9 - Anemia, unspecified, E44.0 - Moderate protein-calorie malnutrition, E78.9 - Disorder of lipoprotein metabolism, unspecified, F33.41 - Major depressive disorder, recurrent, in pa rtial remission, I51.81 - Takotsubo syndrome, I69.351 - Hemiplegia and hemiparesis following cerebral infarction affecting right dominant side, J98.4 - Other disorders of lung, K21.9 - Gastro-esophageal reflux disease without esophagitis, N39.46 - Mixed incontinence, R56.9 - Unspecified convulsions, Z99.81 - Dependence on supplemental oxygen Comprehensive Met. Panel Today D64.9 - Anemia, unspecified, E44.0 - Moderate protein-calorie malnutrition, E78.9 - Disorder of lipoprotein metabolism, unspecified, F33.41 - Major depressive disorder, recurrent, in partial remissi on, I51.81 - Takotsubo syndrome, I69.351 - Hemiplegia and hemiparesis following cerebral infarction affecting right dominant side, J98.4 - Other disorders of lung, K21.9 - Gastro-esophageal reflux disease without esophagitis, N39.46 - Mixed incontinence, R56.9 - Unspecified convulsions, Z99.81 - Dependence on supplemental oxygen LDL Cholesterol Direct Today D64.9 - Anemia, unspecified, E44.0 - Moderate protein-calorie malnutrition, E78.9 - Disorder of lipoprotein metabolism, unspecified, F33.41 - Major depressive disorder, recurrent, in partial remission, I51.81 - Takotsubo syndrome, I69.351 - Hemiplegia and hemiparesis following cerebral infarction affecting right dominant side, J98.4 - Other disorders of lung, K21.9 - Gastro-esophageal reflux disease without esophagitis, N39.46 - Mixed incontinence, R56.9 - Unspecified convulsions, Z99.81 - Dependence on supplemental oxygen TSH reflex Free T4 Today D64.9 - Anemia, unspecified, E44.0 - Moderate protein- calorie malnutrition, E78.9 - Disorder of lipoprotein metabolism, unspecified, F33.41 - Major depressive disorder, recurrent, in partial remission, I51.81 - Takotsubo syndrome, I69.351 - Hemiplegia and hemiparesis following cerebral infarction affecting right dominant side, J98.4 - Other disorders of lung, K21.9 - Gastro-esophageal reflux disease without esophagitis, N39.46 - Mixed incontinence, R56.9 - Unspecified convulsions, Z99.81 - Dependence on supplemental oxygen Vitamin B12 Today D64.9 - Anemia, unspecified, E44.0 - Moderate protein-calorie malnutrition, E78.9 - Disorder of lipoprotein metabolism, unspecified, F33.41 - Major depressive disorder, recurrent, in partial remission, I51.81 - Takotsubo syndrome, I69.351 - Hemiplegia and hemiparesis following cerebral infarction affecting right dominant side, J98.4 - Other disorders of lung, K21.9 - Gastro- esophageal reflux disease without esophagitis, N39.46 - Mixed incontinence, R56.9 - Unspecified convulsions, Z99.81 - Dependence on supplemental oxygen Influenza [id number] Immunization Today Z23 - Encounter for immunization Pneumococcal 20 Immunization Today Z23 - Encounter for immunization Medications: Changed From gabapentin 300 mg PO BEDTIME 90 caps 0RF To gabapentin 300 mg PO BID 180 caps 0RF 90 days Refilled sertraline 50 mg PO DAILY 90 tabs 3RF Depression mirtazapine 30 mg PO BEDTIME 90 tabs 1RF To sleep 90 days
[2024-07-10 13:47] VITALS: BP 112/60; PULSE 93; O2SAT 61
== END 2024-07-10 14:57 | disposition home or self-care (01) ==
LOC: HO.HMCC 13:39
PROVIDERS: PCP Internal Medicine; Visit Provider Internal Medicine
DX: I69.351 Hemiplegia and hemiparesis following cerebral infarction affecting right dominant side (principal); E44.0 Moderate protein-calorie malnutrition; R56.9 Unspecified convulsions; F33.41 Major depressive disorder, recurrent, in partial remission; R63.0 Anorexia; D64.9 Anemia, unspecified; R53.1 Weakness; J98.4 Other disorders of lung; N39.46 Mixed incontinence; K21.9 Gastro-esophageal reflux disease without esophagitis; Z99.81 Dependence on supplemental oxygen; Z23 Encounter for immunization

== ENCOUNTER 2024-07-24 19:43 | Inpatient (IN) | payer OTHER, SELFPAY ==
--- NOTE | ~2024-07-24 | MR_ITS ---
EXAMINATION: MR BRAIN WITHOUT CONTRAST CLINICAL INFORMATION: Aphasia. COMPARISON: CT head dated July 24, 2024. CTA head and neck dated July 24, 2024. TECHNIQUE: MRI of the brain was obtained using routine sequences without contrast. FINDINGS: There is no area of abnormal restricted diffusion to indicate an acute/subacute cerebral or cerebellar infarction. There is no acute intracranial hemorrhage. There is a large area of gliosis mild microvascular ischemic change. And encephalomalacia involving the left frontal and left parietal lobes most likely secondary to a chronic left middle cerebral artery infarction. There is mild microvascular ischemic change. There is Wallerian degeneration of the left cerebral peduncle. There is no midline shift or mass effect. No extra-axial fluid collection. No hydrocephalus. The left internal carotid artery flow void demonstrates increased signal consistent with occlusion versus slow flow. Midline structures are normal in appearance. Cerebellar tonsils are normally positioned. The orbits are symmetric and within normal limits. The paranasal sinuses are well-aerated. There is a small inferior right mastoid air cell effusion. MR/MR head/brain wo con IMPRESSION: There is no area of abnormal restricted diffusion to indicate an acute/subacute cerebral or cerebellar infarction. No intracranial hemorrhage. Chronic left middle cerebral artery infarction. There is occlusion of the left internal carotid artery. Electronically signed by: Oc Bazan DO 07/26/2024 04:44 PM EST
--- NOTE | ~2024-07-24 | CT_ITS ---
EXAMINATION: CT HEAD WITHOUT CONTRAST CLINICAL INFORMATION: Difficulty speaking. COMPARISON: Brain MRI from 01/03/2024. TECHNIQUE: Contiguous axial imaging was performed from the skull base to vertex without intravenous administration of contrast. This CT examination was performed using dose optimization techniques as appropriate, variously including the following: *Automated exposure control. *Adjustment of mA and/or kV according to patient size (this includes techniques or standardized protocols for targeted exams where dose is matched to indication/reason for exam; i.e. extremities or head). *Use of iterative reconstruction technique. DLP: 619 mGy-cm FINDINGS: There is chronic encephalomalacia within the left MCA territory (including the left frontoparietal lobes) with associated volume loss. No additional loss of [place]-white matter differentiation. No evidence of acute intracranial hemorrhage. A few foci of hypoattenuation in the periventricular and deep white matter are consistent with mild microangiopathy. Exvacuodilatation of the left lateral ventricle. Otherwise, proportional prominence of the ventricles and sulcal spaces without evidence of obstructive hydrocephalus. No abnormal mass effect or midline shift. No extra-axial fluid collections. Calcific atherosclerotic disease of the intracranial internal carotid and vertebral arteries. No hyperdense vessel sign. Small right frontal subgaleal hematoma, measuring up to 0.3 cm in depth. No associated acute osseous abnormalities. Dehiscence of the nasal septum. Moderate mucosal thickening of the paranasal sinuses. The mastoid air cells and middle ear cavities are clear. CT/CT head for stroke IMPRESSION: 1. No evidence of acute intracranial hemorrhage or edematous territorial infarction. 2. Chronic left MCA territory infarct. Mild underlying microangiopathy and generalized cerebral volume loss. 3. Small right frontal scalp hematoma without associated osseous abnormalities. This critical result was discussed with Dr. Stanton at 20:12 on 07/24/2024 and it was ascertained that the content and urgency of the report was understood at the time of direct communication. Electronically signed by: Dario Deleon DO 07/24/2024 08:17 PM [facility]
--- NOTE | ~2024-07-24 | CT_ITS ---
EXAMINATION: CTA NECK WITH CONTRAST (STROKE) CTA BRAIN WITH CONTRAST (STROKE) CLINICAL INFORMATION: Difficulty speaking COMPARISON: None available. TECHNIQUE: CTA of the head and neck was performed in the axial plane from the mediastinum to the skull vertex using 70 mL Omnipaque 350 intravenous contrast. Additional reformatted multiplanar images including maximum intensity projection MIP images are generated on the CT workstation. This CT examination was performed using dose optimization techniques as appropriate, variously including the following: *Automated exposure control *Adjustment of mA and/or kV according to patient size (this includes techniques or standardized protocols for targeted exams where dose is matched to indication/reason for exam; i.e. extremities or head) *Use of iterative reconstruction technique DLP: 1426 mGy-cm FINDINGS: Motion artifact is is present. The degree of stenosis determined by criteria similar to NASCET. CTA NECK: Three-vessel aortic arch. The innominate and bilateral subclavian arteries are patent. Complete occlusion of the left common carotid artery, unchanged. Complete occlusion of the left cervical internal carotid artery with distal reconstitution in the clinoid ICA. The origins and cervical segments of the right common carotid artery as well as the common carotid artery bifurcation are patent bilaterally. The cervical segments of the right ICA are also patent. The origins and cervical segments of the vertebral arteries are patent bilaterally. No new hemodynamically significant stenosis, dissection, or aneurysm. The visualized branches of the external carotid arteries are unremarkable. CTA HEAD: Anterior circulation: The right ICA segments are patent. Complete occlusion of the left cervical internal carotid artery with distal reconstitution in the clinoid ICA. The major branches of the anterior and middle cerebral arteries as well as anterior commuting artery complex are patent. No large vessel occlusion, saccular aneurysm, or dissection. Posterior circulation: The intracranial vertebral arteries are patent bilaterally. The basilar artery is normal in course and caliber. The posterior cerebral and superior cerebellar arteries arise normally from the basilar summit. No aneurysm. On delayed imaging, the venous structures demonstrate normal contrast opacification. No filling defect. No abnormal intracranial enhancement. Soft tissues: No suspicious neck mass or cervical adenopathy. Lungs: Clear. Bones: No acute osseous abnormality. No lytic or blastic osseous lesions. Degenerative changes of the visualized spine. CT/CT angio head neck stroke IMPRESSION: 1. CTA head demonstrates no large vessel occlusion, saccular aneurysm, or dissection. 2. CTA neck demonstrates complete occlusion of the left common carotid artery and left cervical internal carotid artery with distal reconstitution in the clinoid ICA. No new hemodynamically significant stenosis, dissection, or aneurysm. Electronically signed by: Zunilda Rocha MD 07/24/2024 08:48 PM [facility]
--- NOTE | 2024-07-24 19:49 | ED.GENADULT ---
HPI - General Adult General Chief complaint: Stroke Stated complaint: fall, diff speaking, +head strike Time Seen by Provider: 07/24/24 19:49 History of Present Illness ED Provider: Maximino QUARLES narrative: The patient is a 58-year-old female who has a history of significant right-sided weakness from previous strokes. She also has a history of a seizure disorder and she is on levetiracetam. The patient was brought to the hospital today after she fell off the toilet. She says she was sitting on the toilet when she felt dizzy and fell forward and struck her head on the floor. She thinks she might have had loss of consciousness. Apparently an aide was in the apartment and heard the fall and called an ambulance. Paramedics state that when they arrived the patient had an obvious bruise to the forehead. They also found that the patient had severe right arm weakness that is chronic. They say that the patient's speech was initially quite good but as the patient was being transported to the hospital they felt that the patient's speech was slightly less clear. This event seems to have started at around 19:00 this evening. The patient says that she has a history of seizures and is on levetiracetam. She ran out of her levetiracetam yesterday. Her last dose was yesterday morning. She wonders whether she might have had a seizure. The patient has chronic right arm and right leg weakness. She does not feel that her arm or leg weakness is significantly different from her baseline. She does feel that her speech is slightly different than usual. Related Data Home Medications ?Medication ?Instructions ?Recorded ?Confirmed polyethylene glycol 3350 17 gram 17 g PO DAILY PRN Constipation 01/03/24 07/10/24 oral powder packet Previous Rx's ?Medication ?Instructions ?Recorded Diapers #90 multiple units 01/06/24 amlodipine 5 mg tablet 5 mg PO DAILY 90 days #90 tabs 03/02/24 aspirin 81 mg tablet,delayed 81 mg PO DAILY #90 tabs 03/02/24 release (Adult Low Dose Aspirin) folic acid 1 mg tablet 1 mg PO DAILY #90 tabs 03/02/24 levetiracetam 500 mg tablet 500 mg PO BID 180 days #360 tabs 03/02/24 omeprazole 20 mg capsule,delayed 20 mg PO DAILY@0630 Acid reflux 03/02/24 release #90 caps albuterol sulfate 90 mcg/actuation 2 puff PO Q6H PRN bronchospasm 30 04/17/24 aerosol inhaler days #6.7 grams atorvastatin 40 mg tablet 40 mg PO BEDTIME Cholesterol #90 06/01/24 tabs docusate sodium 100 mg capsule 100 mg PO DAILY PRN Constipation 06/01/24 #90 caps ferrous sulfate 324 mg (65 mg 324 mg PO BIDWM #60 tabs 06/01/24 iron) tablet,delayed release metoprolol tartrate 25 mg tablet 25 mg PO BID 90 days #180 tabs 06/01/24 ipratropium 0.5 mg-albuterol 3 mg 3 ml inhalation TID shortness of 06/26/24 (2.5 mg base)/3 mL nebulization breath/copd #180 mL soln gabapentin 300 mg capsule 300 mg PO BID 90 days #180 caps 07/10/24 mirtazapine 30 mg tablet 30 mg PO BEDTIME To sleep 90 days 07/10/24 #90 tabs sertraline 50 mg tablet 50 mg PO DAILY Depression #90 tabs 07/10/24 Allergies Allergy/AdvReac Type Severity Reaction Status Date / Time crab Allergy Unknown Hives Verified 07/24/24 20:13 penicillin V Allergy Unknown hives Verified 07/24/24 20:13 Penicillins [PENICILLINS] Allergy Unknown hives Verified 07/24/24 20:13 SEASONAL ALLERGIES Allergy Mild RUNNY NOSE Uncoded 07/24/24 20:13 [facility] Past Medical History Medical History Seizure (~11/2021) History of multiple cerebrovascular accidents (CVAs) Hemiparesis affecting right side as late effect of cerebrovascular accident Aphasia History of non-ST elevation myocardial infarction (NSTEMI) (~11/2021) History of acute respiratory distress syndrome (ARDS) (~08/2021) Coronary artery disease Takotsubo cardiomyopathy COPD (chronic obstructive pulmonary disease) Respiratory failure with hypoxia Oxygen dependent Personal history of nicotine dependence Hemoptysis Closed subcapital fracture of femur Cocaine abuse Hypertensive emergency Normocytic anemia History of drug abuse Cocaine abuse Major depression, recurrent Acute CHF (congestive heart failure) Hypercapnic respiratory failure, chronic Asymptomatic carotid artery stenosis with infarction Chronic GERD Environmental allergies Anxiety, generalized Lipid disorder Asthma, moderate Surgical History History of left-sided carotid endarterectomy (~09/2012) History of tonsillectomy and adenoidectomy Family History Family History Father Substance abuse Mother Brain cancer Maternal Grandfather History of heart attack Maternal Grandmother History of heart attack Paternal Grandfather No problems noted. Paternal Grandmother No problems noted. Brother No problems noted. Brother No problems noted. Son No problems noted. Daughter No problems noted. Other Mental health disorder Social History Social History Household Members: Children Household Members Other:: daughter Housing: Condominium Do you presently have visiting nurse or other home services: No Unable to assess alcohol history related to: Refusing to respond Alcohol intake: former Patient Tobacco Use Status: Former Tobacco user Tobacco use type: Cigarette Cigarettes Per Day: 2 Years Smoked: COUPLE YEAR AGO PER PT Smoked in Last 30 Days: No e-Cigarette/Vaping Use: Never Used Second Hand Smoke Exposure: No Use of substances other than those prescribed or required for medical reasons: No Advance Directives: Yes Advance Directives on File: Yes Advance Directives Date on File: 11/25/21 Do you have a plan to hurt others: No Plan Patient : No service: No Current occupational status: disabled Cognitive needs: No Hearing needs: No Vision needs: No Physical Exam ED Vital Signs: Vital Signs - 24 hr 07/24/24 20:10 07/24/24 22:09 07/25/24 00:13 Temperature 98.6 F 97.3 F Pulse Rate 88 82 80 Respiratory Rate 18 22 H 18 Blood Pressure 194/79 H 136/63 128/48 L Pulse Oximetry 98 95 98 Oxygen Delivery Method Nasal Cannula Nasal Cannula Nasal Cannula Oxygen Flow Rate 4 3 BMI result Body Mass Index 18.2 Medications Administered Discontinued Medications Generic Name Dose Route Start Last Admin Trade Name Freq PRN Reason Stop Dose Admin Aspirin 325 mg 07/25/24 00:04 07/25/24 00:12 Aspirin 325 Mg Tablet PO 07/25/24 00:05 325 mg ONCE ONE Administration Levetiracetam 500 mg in 100 mls @ 400 mls/hr 07/24/24 20:54 07/24/24 21:26 Keppra IV 07/24/24 21:08 Infused ONCE ONE Infusion Iohexol 100 ml 07/24/24 19:55 07/24/24 19:56 Iohexol 350 Mg/Ml 100 Ml Infus..Btl IV 07/24/24 19:56 70 ml ONCE ONE Administration Medical Decision Making Lab Data 07/24/24 20:52 07/24/24 20:52 Labs: Lab Results 07/24/24 07/24/24 07/24/24 Range/Units 20:04 20:52 20:58 WBC 6.5 (4.8-10.8) X10*3/uL RBC 3.49 L (4.20-5.50) X10*6/uL Hgb 9.8 L (12.0-16.0) g/dl Hct 31.2 L (37.0-47.0) % MCV 89.4 (80.0-98.0) fL MCH 28.1 (27.0-33.0) pg MCHC 31.4 (31.0-35.0) g/dl RDW 13.9 (11.0-16.0) % Plt Count 277 (160-400) X10*3/uL MPV 10.0 (9.4-12.3) fL Immature Gran % (Auto) 0.2 (0.0-0.4) % Neut % (Auto) 55.3 (45-73) % Lymph % (Auto) 32.3 (20-40) % [place] % (Auto) 9.0 (2-11) % Eos % (Auto) 2.9 (0-4) % Baso % (Auto) 0.3 (0-2) % Lymph # (Auto) 2.1 (1.2-4.9) X10*3/uL [place] # (Auto) 0.6 (0.1-1.2) X10*3/uL Eos # (Auto) 0.2 (0.0-0.4) X10*3/uL Baso # (Auto) 0.0 (0.0-0.2) X10*3/uL Abs Immat Gran (auto) 0.01 (0.00-0.03) X10*3/uL Absolute Neuts (auto) 3.6 (2.0-8.3) x10*3/uL Absolute Nucleated RBC 0.000 (0.0-0.012) X10*3/uL Nucleated RBC % (auto) 0.0 (0.0-0.2) /100WBC PT 11.8 (10.9-12.4) SEC INR 1.0 (0.9-1.1) Sodium 135 (135-145) mmol/L Potassium 4.2 (3.3-5.1) mmol/L Chloride 95 L (96-108) mmol/L Carbon Dioxide 32 H (22-29) mmol/L Anion Gap 12 (12-20) BUN 9 (9-16) mg/dL Creatinine 0.59 (0.5-1.4) mg/dL Estim Creat Clear Calc 70.8 Estimated GFR > 60 POC Glucose 86 (60-115) mg/dL Random Glucose 90 (60-115) mg/dL Calcium 9.1 D (8.4-10.2) mg/dL Magnesium 1.8 (1.6-2.6) mg/dL Total Bilirubin 0.2 (0.0-1.0) mg/dL Direct Bilirubin < 0.2 (0.0-0.5) mg/dL AST 21 (5-31) U/L ALT 10 (0-31) U/L Alkaline Phosphatase 89 (39-117) U/L Troponin I High Sens < 2.7 (<3.5-17.0) ng/L B-Natriuretic Peptide 18 (<100) pg/mL Total Protein 7.4 (6.5-8.0) g/dL Albumin 4.2 (3.5-5.0) g/dL Urine Color Urine Appearance Urine pH (5.0-9.0) Ur Specific [place] (1.005-1.025) Urine Protein (Neg-Trace) mg/dL Urine Glucose (UA) (Negative) mg/dL Urine Ketones (Negative) mg/dL Urine Blood (Negative) Urine Nitrite (Negative) Ur Leukocyte Esterase (Negative) Urine RBC (0-2) /HPF Urine WBC (0-5) /HPF Ur Squamous Epith Cells (0-2) /HPF Urine Bacteria (None Seen) Hyaline Casts (0-2) /LPF Ethyl Alcohol 10 mg/dL 07/24/24 Range/Units 20:59 WBC (4.8-10.8) X10*3/uL RBC (4.20-5.50) X10*6/uL Hgb (12.0-16.0) g/dl Hct (37.0-47.0) % MCV (80.0-98.0) fL MCH (27.0-33.0) pg MCHC (31.0-35.0) g/dl RDW (11.0-16.0) % Plt Count (160-400) X10*3/uL MPV (9.4-12.3) fL Immature Gran % (Auto) (0.0-0.4) % Neut % (Auto) (45-73) % Lymph % (Auto) (20-40) % [place] % (Auto) (2-11) % Eos % (Auto) (0-4) % Baso % (Auto) (0-2) % Lymph # (Auto) (1.2-4.9) X10*3/uL [place] # (Auto) (0.1-1.2) X10*3/uL Eos # (Auto) (0.0-0.4) X10*3/uL Baso # (Auto) (0.0-0.2) X10*3/uL Abs Immat Gran (auto) (0.00-0.03) X10*3/uL Absolute Neuts (auto) (2.0-8.3) x10*3/uL Absolute Nucleated RBC (0.0-0.012) X10*3/uL Nucleated RBC % (auto) (0.0-0.2) /100WBC PT (10.9-12.4) SEC INR (0.9-1.1) Sodium (135-145) mmol/L Potassium (3.3-5.1) mmol/L Chloride (96-108) mmol/L Carbon Dioxide (22-29) mmol/L Anion Gap (12-20) BUN (9-16) mg/dL Creatinine (0.5-1.4) mg/dL Estim Creat Clear Calc Estimated GFR POC Glucose (60-115) mg/dL Random Glucose (60-115) mg/dL Calcium (8.4-10.2) mg/dL Magnesium (1.6-2.6) mg/dL Total Bilirubin (0.0-1.0) mg/dL Direct Bilirubin (0.0-0.5) mg/dL AST (5-31) U/L ALT (0-31) U/L Alkaline Phosphatase (39-117) U/L Troponin I High Sens (<3.5-17.0) ng/L B-Natriuretic Peptide (<100) pg/mL Total Protein (6.5-8.0) g/dL Albumin (3.5-5.0) g/dL Urine Color Yellow Urine Appearance Clear Urine pH 7.0 (5.0-9.0) Ur Specific [place] 1.025 (1.005-1.025) Urine Protein Negative (Neg-Trace) mg/dL Urine Glucose (UA) Negative (Negative) mg/dL Urine Ketones Negative (Negative) mg/dL Urine Blood Negative (Negative) Urine Nitrite Negative (Negative) Ur Leukocyte Esterase Negative (Negative) Urine RBC 0-2 (0-2) /HPF Urine WBC 0-5 (0-5) /HPF Ur Squamous Epith Cells 0-2 (0-2) /HPF Urine Bacteria None Seen (None Seen) Hyaline Casts 0-2 (0-2) /LPF Ethyl Alcohol mg/dL Discharge Plan Discharge Patient Disposition: Admitted As Inpatient Prescriptions: No Action albuterol sulfate 90 mcg/actuation HFA aerosol inhaler 2 puff PO Q6H PRN (Reason: bronchospasm) 30 Days Qty: 6.7 0RF docusate sodium 100 mg capsule 100 mg PO DAILY PRN (Reason: Constipation) Qty: 90 0RF atorvastatin 40 mg tablet 40 mg PO BEDTIME Qty: 90 0RF metoprolol tartrate 25 mg tablet 25 mg PO BID 90 Days Qty: 180 0RF ferrous sulfate 324 mg (65 mg iron) tablet,delayed release (DR/EC) 324 mg PO BIDWM Qty: 60 0RF ipratropium-albuterol 0.5 mg-3 mg(2.5 mg base)/3 mL solution for nebulization 3 ml inhalation TID Qty: 180 4RF polyethylene glycol 3350 17 gram powder in packet 17 g PO DAILY PRN (Reason: Constipation) (DME) Diapers Very small See Rx Instructions .Route .MEDSUPPLY Qty: 90 5RF Rx Instructions: 3 times a day amlodipine 5 mg tablet 5 mg PO DAILY 90 Days Qty: 90 0RF aspirin [Adult Low Dose Aspirin] 81 mg tablet,delayed release (DR/EC) 81 mg PO DAILY Qty: 90 0RF folic acid 1 mg tablet 1 mg PO DAILY Qty: 90 3RF levetiracetam 500 mg tablet 500 mg PO BID 180 Days Qty: 360 1RF omeprazole 20 mg capsule,delayed release(DR/EC) 20 mg PO DAILY@0630 Qty: 90 0RF sertraline 50 mg tablet 50 mg PO DAILY Qty: 90 3RF gabapentin 300 mg capsule 300 mg PO BID 90 Days Qty: 180 0RF mirtazapine 30 mg tablet 30 mg PO BEDTIME 90 Days Qty: 90 1RF Print Language: Sammarinese
--- NOTE | 2024-07-24 19:51 | ECG_ITS ---
Test Reason : STROKE Blood Pressure : / mmHG Vent. Rate : 087 BPM Atrial Rate : 087 BPM P-R Int : 158 ms QRS Dur : 082 ms QT Int : 364 ms P-R-T Axes : 074 077 076 degrees QTc Int : 438 ms Normal sinus rhythm Normal ECG When compared with ECG of 02-JAN-2024 19:59, No significant change was found Referred By: Raymond Stanton Electronically Signed By:Mitch An
[2024-07-24] MEDS: iohexoL 350 MG/ML 100 ML INFUS..BTL IV (19:56)
[2024-07-24 20:08] LABS: Glucose, Whole Blood 86 mg/dL (60-115)
[2024-07-24 20:10] VITALS: BP 188/88; BP 194/79; PULSE 88; PULSE 90; RESP 18; TEMP 37; O2SAT 95; O2SAT 98; BMI 18.2
--- NOTE | 2024-07-24 20:10 | PC.NURSE ---
pt biba from home, a&ox4, respirations even and unlabored. ems called stroke alert on pt, LWK 1900. pt alert and able to state that she had been in the bathroom when she had an episode of LOC/ possible seizure. pt reports she has run out of her medication and was unable to take it this morning. pt reports hx of CVA 7 years ago, has right sided deficits and unequal pupils. pt brought into CT immediately on arrival. ems placed 22G in the left ac, this RN placed 20G in left forearm. at bedside and aware. bedside swallow eval completed at this time, pt noted to have passed. provider aware. pt assisted onto bedpan.
[2024-07-24 20:59] LABS: MANUAL DIFF FLAG NO
[2024-07-24 21:02] LABS: Basophils Percent Auto 0.3 % (0-2); Eosinophils Absolute Auto 0.2 X10*3/uL (0.0-0.4); Eosinophils Percent Auto 2.9 % (0-4); Hematocrit 31.2 % (37.0-47.0); Hemoglobin 9.8 g/dl (12.0-16.0); Imm Gran Abs Auto 0.01 X10*3/uL (0.00-0.03); Imm Gran Pct Auto 0.2 % (0.0-0.4); Lymphocytes Absolute Auto 2.1 X10*3/uL (1.2-4.9); Lymphocytes Percent Auto 32.3 % (20-40); Mean Corpuscular HGB Conc 31.4 g/dl (31.0-35.0); Mean Corpuscular Hemoglobin 28.1 pg (27.0-33.0); Mean Corpuscular Volume 89.4 fL (80.0-98.0); Monocytes Absolute Auto 0.6 X10*3/uL (0.1-1.2); Neutrophils Absolute Auto 3.6 x10*3/uL (2.0-8.3); Neutrophils Percent Auto 55.3 % (45-73); Platelet Count 277 X10*3/uL (160-400); Red Blood Count 3.49 X10*6/uL (4.20-5.50); Red Cell Distribution Width 13.9 % (11.0-16.0); White Blood Count 6.5 X10*3/uL (4.8-10.8)
[2024-07-24] MEDS: levETIRAcetam in NaCl (iso-os) 500 MG/100 ML PIGGYBACK 400 MG IV (21:02)
[2024-07-24 21:10] LABS: Appearance Urine Clear; Color Urine Yellow; Glucose Urine UA Negative (Negative); Leukocyte Esterase Urine Negative (Negative); Nitrite Urine Negative (Negative); Specific Gravity - Urine 1.025 (1.005-1.025); Urine Blood Negative (Negative); Urine Ketones Negative (Negative); Urine Protein Negative (Neg-Trace)
[2024-07-24 21:11] LABS: Prothrombin Time 11.8 SEC (10.9-12.4)
[2024-07-24 21:13] LABS: Bacteria Urine None Seen (None Seen); Hyaline Casts Urine 0-2 /LPF (0-2); RBC Urine 0-2 /HPF (0-2); Squamous Epithelial Cell Urine 0-2 /HPF (0-2); WBC Urine 0-5 /HPF (0-5)
[2024-07-24 21:16] LABS: Alanine Aminotransferase 10 U/L (0-31); Albumin Level 4.2 g/dL (3.5-5.0); Alkaline Phosphatase 89 U/L (39-117); Anion Gap 12 (12-20); Aspartate Amino Transferase 21 U/L (5-31); Bilirubin Direct < 0.2 mg/dL (0.0-0.5); Bilirubin Total 0.2 mg/dL (0.0-1.0); Blood Urea Nitrogen 9 mg/dL (9-16); Calcium 9.1 mg/dL (8.4-10.2); Carbon Dioxide 32 mmol/L (22-29); Chloride 95 mmol/L (96-108); Creatinine Clr Calc Pharmacy 70.8; Estimated Glomerular Filt Rate > 60; Glucose Random 90 mg/dL (60-115); Magnesium 1.8 mg/dL (1.6-2.6); Potassium 4.2 mmol/L (3.3-5.1); Sodium 135 mmol/L (135-145); Total Protein 7.4 g/dL (6.5-8.0)
[2024-07-24 21:19] LABS: Ethanol 10 mg/dL
[2024-07-24 21:24] LABS: Troponin-I High Sensitivity < 2.7 ng/L (<3.5-17.0)
[2024-07-24 21:27] LABS: B Type Natriuretic Peptide 18 pg/mL (<100)
[2024-07-24 22:09] VITALS: BP 136/63; PULSE 82; RESP 22; TEMP 36.3; O2SAT 95
--- NOTE | 2024-07-24 22:14 | PC.NURSE ---
pt noted to be on 4L nasal cannula baseline.
[2024-07-25] VITALS (13 sets, daily range): BP systolic 107–163; BP diastolic 48–68; PULSE 67–119; RESP 16–20; TEMP 36.3–37; O2SAT 95–100; BMI 18.2
--- NOTE | 2024-07-25 | EEG_ITS ---
FINDINGS: Waking background activity consists of a moderate voltage to high voltage posterior 8 hertz alpha frequency with intermittent 6 to 7 hertz slowing from the left temporal region. Occasional sharp transients were seen from the left temporal region. Photic stimulation is without activation. IMPRESSION: This EEG is considered mildly abnormal due to mild degree of left temporal slowing and occasional sharp transients consistent with an underlying structural abnormality with some elements of cerebral irritability, which could correlate with a seizure focus in the left temporal region. Clinical correlation is suggested. MD ZACH Og/JAHAIRA / [id number]
--- NOTE | 2024-07-25 00:04 | PC.NURSE ---
pt noted to be ringing call campbell, this RN entered room. pt stated can you put and pt was unable to find the word for head down. pt noted to have trouble finding words at this time. aware.
[2024-07-25] MEDS: Aspirin 325 MG TABLET PO (00:12)
--- NOTE | 2024-07-25 00:12 | PC.NURSE ---
pt medicated per mar, pt is able to follow commands, continues to be a&ox4, respirations even and unlabored. vss
--- NOTE | 2024-07-25 00:26 | PM.IMHP ---
History of Present Illness Date of Service: 07/25/24 Chief Complaint: FALL This is a 58-year-old female with pertinent history of chronic hypoxemic respiratory failure on 3 L supplemental oxygen, essential hypertension, CVA with residual right-sided hemiparesis, seizure disorder, coronary artery disease, mood disorder, takotsubo cardiomyopathy who presents to the emergency department for evaluation of fall. Patient while sitting on the toilet fell forward and hit her head. Unclear if she lost consciousness. She thinks she might have had a seizure. Paramedics noted obvious bruise to the forehead. Speech was initially at baseline but in the ER, speech was found to be slightly altered. Patient states she ran out of her Keppra 1 day prior to presentation. Patient had similar presentation in 01/02/2024 with speech deficit when she had an episode of seizure. Patient has residual right-sided weakness due to CVA in 2016. No fever, chills, chest pain, palpitations, shortness of breath, abdominal pain, changes in urinary or bowel habits. In the emergency department, patient was given aspirin and IV Keppra. Review of Systems Constitutional: Constitutional: Reports no additional constitutional complaints Cardiovascular: Cardiovascular: Reports no additional cardiovascular complaints Respiratory: Respiratory: Reports no additional respiratory complaints Gastrointestinal: Gastrointestinal: Reports no additional gastrointestinal complaints Genitourinary: Genitourinary: Reports no additional female genitourinary complaints [facility] Medical History Seizure (~11/2021) History of multiple cerebrovascular accidents (CVAs) Hemiparesis affecting right side as late effect of cerebrovascular accident Aphasia History of non-ST elevation myocardial infarction (NSTEMI) (~11/2021) History of acute respiratory distress syndrome (ARDS) (~08/2021) Coronary artery disease Takotsubo cardiomyopathy COPD (chronic obstructive pulmonary disease) Respiratory failure with hypoxia Oxygen dependent Personal history of nicotine dependence Hemoptysis Closed subcapital fracture of femur Cocaine abuse Hypertensive emergency Normocytic anemia History of drug abuse Cocaine abuse Major depression, recurrent Acute CHF (congestive heart failure) Hypercapnic respiratory failure, chronic Asymptomatic carotid artery stenosis with infarction Chronic GERD Environmental allergies Anxiety, generalized Lipid disorder Asthma, moderate Family History Father Substance abuse Mother Brain cancer Maternal Grandfather History of heart attack Maternal Grandmother History of heart attack Paternal Grandfather No problems noted. Paternal Grandmother No problems noted. Brother No problems noted. Brother No problems noted. Son No problems noted. Daughter No problems noted. Other Mental health disorder Surgical History History of left-sided carotid endarterectomy (~09/2012) History of tonsillectomy and adenoidectomy Social History Household Members: Children Household Members Other:: daughter Housing: Condominium Do you presently have visiting nurse or other home services: No Unable to assess alcohol history related to: Refusing to respond Alcohol intake: former Patient Tobacco Use Status: Former Tobacco user Tobacco use type: Cigarette Cigarettes Per Day: 2 Years Smoked: COUPLE YEAR AGO PER PT Smoked in Last 30 Days: No e-Cigarette/Vaping Use: Never Used Second Hand Smoke Exposure: No Use of substances other than those prescribed or required for medical reasons: No Advance Directives: Yes Advance Directives on File: Yes Advance Directives Date on File: 11/25/21 Do you have a plan to hurt others: No Plan Nutrition Risks: No Nutritional Risk Patient : No service: No Current occupational status: disabled Cognitive needs: No Hearing needs: No Vision needs: No Meds Allergies Allergy/AdvReac Type Severity Reaction Status Date / Time crab Allergy Unknown Hives Verified 07/24/24 20:13 penicillin V Allergy Unknown hives Verified 07/24/24 20:13 Penicillins [PENICILLINS] Allergy Unknown hives Verified 07/24/24 20:13 SEASONAL ALLERGIES Allergy Mild RUNNY NOSE Uncoded 07/24/24 20:13 Home Medications ?Medication ?Instructions ?Recorded ?Confirmed ?Last Taken ?Type polyethylene glycol 3350 17 gram 17 g PO DAILY PRN Constipation 01/03/24 07/10/24 Unknown History oral powder packet Physical Exam Vital Signs and Narrative: Vital Signs: Last Vital Signs Temp 97.3 F 07/24/24 22:09 Pulse 80 07/25/24 00:13 Resp 18 07/25/24 00:13 BP 128/48 L 07/25/24 00:13 Pulse Ox 98 07/25/24 00:13 O2 Del Method Nasal Cannula 07/25/24 00:13 O2 Flow Rate 3 07/25/24 00:13 Oxygen Flow Rate 4 07/24/24 20:10 BMI result Body Mass Index 18.2 Middle-aged female lying in bed in no distress Neck supple, no JVD Regular rate and rhythm, S1-S2 heard Regular breath sounds bilaterally, no wheezing or crackles appreciated Abdomen soft nontender, no guarding, no rigidity Patient is awake and alert and oriented x3, right-sided weakness noted Psych: Normal No pedal edema Results Labs 07/24/24 20:52 07/24/24 20:52 Labs: Laboratory Results - last 24 hr 07/24/24 07/24/24 07/24/24 20:04 20:52 20:58 MCV 89.4 MCH 28.1 MCHC 31.4 RDW 13.9 Plt Count 277 MPV 10.0 Immature Gran % (Auto) 0.2 Neut % (Auto) 55.3 Lymph % (Auto) 32.3 [place] % (Auto) 9.0 Eos % (Auto) 2.9 Baso % (Auto) 0.3 Lymph # (Auto) 2.1 [place] # (Auto) 0.6 Eos # (Auto) 0.2 Baso # (Auto) 0.0 Abs Immat Gran (auto) 0.01 Absolute Neuts (auto) 3.6 Absolute Nucleated RBC 0.000 Nucleated RBC % (auto) 0.0 PT 11.8 INR 1.0 Anion Gap 12 Estim Creat Clear Calc 70.8 Estimated GFR > 60 POC Glucose 86 Random Glucose 90 Calcium 9.1 D Magnesium 1.8 Total Bilirubin 0.2 Direct Bilirubin < 0.2 AST 21 ALT 10 Alkaline Phosphatase 89 Troponin I High Sens < 2.7 B-Natriuretic Peptide 18 Total Protein 7.4 Albumin 4.2 Urine Color Urine Appearance Urine pH Ur Specific [place] Urine Protein Urine Glucose (UA) Urine Ketones Urine Blood Urine Nitrite Ur Leukocyte Esterase Urine RBC Urine WBC Ur Squamous Epith Cells Urine Bacteria Hyaline Casts Ethyl Alcohol 10 07/24/24 20:59 MCV MCH MCHC RDW Plt Count MPV Immature Gran % (Auto) Neut % (Auto) Lymph % (Auto) [place] % (Auto) Eos % (Auto) Baso % (Auto) Lymph # (Auto) [place] # (Auto) Eos # (Auto) Baso # (Auto) Abs Immat Gran (auto) Absolute Neuts (auto) Absolute Nucleated RBC Nucleated RBC % (auto) PT INR Anion Gap Estim Creat Clear Calc Estimated GFR POC Glucose Random Glucose Calcium Magnesium Total Bilirubin Direct Bilirubin AST ALT Alkaline Phosphatase Troponin I High Sens B-Natriuretic Peptide Total Protein Albumin Urine Color Yellow Urine Appearance Clear Urine pH 7.0 Ur Specific [place] 1.025 Urine Protein Negative Urine Glucose (UA) Negative Urine Ketones Negative Urine Blood Negative Urine Nitrite Negative Ur Leukocyte Esterase Negative Urine RBC 0-2 Urine WBC 0-5 Ur Squamous Epith Cells 0-2 Urine Bacteria None Seen Hyaline Casts 0-2 Ethyl Alcohol Imaging Radiologist's Impressions: Impressions Head CT 07/24/24 19:49 IMPRESSION: 1. No evidence of acute intracranial hemorrhage or edematous territorial infarction. 2. Chronic left MCA territory infarct. Mild underlying microangiopathy and generalized cerebral volume loss. 3. Small right frontal scalp hematoma without associated osseous abnormalities. This critical result was discussed with Dr. Stanton at 20:12 on 07/24/2024 and it was ascertained that the content and urgency of the report was understood at the time of direct communication. Electronically signed by: Dario Deleon DO 07/24/2024 08:17 PM EST RP Head/Neck CTA 07/24/24 19:54 IMPRESSION: 1. CTA head demonstrates no large vessel occlusion, saccular aneurysm, or dissection. 2. CTA neck demonstrates complete occlusion of the left common carotid artery and left cervical internal carotid artery with distal reconstitution in the clinoid ICA. No new hemodynamically significant stenosis, dissection, or aneurysm. Electronically signed by: Zunilda Rocha MD 07/24/2024 08:48 PM EST RP Assessment and Plan (1) Breakthrough seizure: Status: Acute Plan This is a 58-year-old female with pertinent history of chronic hypoxemic respiratory failure on 3 L supplemental oxygen, essential hypertension, CVA with residual right-sided hemiparesis, seizure disorder, coronary artery disease, mood disorder, takotsubo cardiomyopathy who presents to the emergency department for evaluation of fall and difficulty with speech. #. Aphasia: Likely in the setting of breakthrough seizure as she ran out of Keppra. Had a similar presentation in 01/02/2024. IV Keppra given in the ER, will continue. Obtaining EEG and consulting Neurology. Seizure precautions #. Moderate protein calorie malnutrition: Nutrition consult #. Coronary artery disease: On high-intensity statin, aspirin and beta-pedro #. History of CVA: On high-intensity statin and aspirin #. Seizure disorder: Continue home Keppra dosage #. Gastroesophageal reflux disease: On PPI #. Mood disorder: On mirtazapine and sertraline #. Chronic anemia: On iron supplementation and folic acid #. Chronic hypoxemic respiratory failure due to COPD: No exacerbation during admission. On 3-4 L baseline home oxygen. Med rec pending DVT prophylaxis: Lovenox Full code Quality Stroke Does the patient have a stroke diagnosis?: No VTE Prior VTE?: No VTE Risk Level:: Medical - moderate - high VTE Device Contraindication: Treatment Not Indicated VTE Drug Contraindication: N/A - Med Ordered
[2024-07-25] MEDS: Enoxaparin Sodium 40 MG/0.4 ML SYRINGE SUBCUT (00:47)
[2024-07-25 05:22] LABS: Hematocrit 28.6 % (37.0-47.0); Hemoglobin 8.8 g/dl (12.0-16.0); Mean Corpuscular HGB Conc 30.8 g/dl (31.0-35.0); Mean Corpuscular Hemoglobin 27.8 pg (27.0-33.0); Mean Corpuscular Volume 90.2 fL (80.0-98.0); Mean Platelet Volume 9.9 fL (9.4-12.3); Platelet Count 263 X10*3/uL (160-400); Red Blood Count 3.17 X10*6/uL (4.20-5.50); Red Cell Distribution Width 13.8 % (11.0-16.0); White Blood Count 9.7 X10*3/uL (4.8-10.8)
[2024-07-25 05:40] LABS: Anion Gap 14 (12-20); Blood Urea Nitrogen 8 mg/dL (9-16); Calcium 9.3 mg/dL (8.4-10.2); Carbon Dioxide 31 mmol/L (22-29); Chloride 96 mmol/L (96-108); Creatinine Clr Calc Pharmacy 66.3; Estimated Glomerular Filt Rate > 60; Glucose Random 89 mg/dL (60-115); Potassium 4.1 mmol/L (3.3-5.1); Sodium 137 mmol/L (135-145)
--- NOTE | 2024-07-25 08:29 | PC.NURSE ---
patient is awake and sitting up in bed with breakfast tray. patient is alert and oriented, states she thinks she had a seizure yesterday and her brother found her at home. patient states she lives alone and brother checks on her. echocardiography technologist came down this morning states she will take her for EEG later today-unk time. patient is wearing her 3lNC which she wears at baseline. patient speech noted to be slow. patient EMS line removed by this RN due to bleeding at site and discomfort for patient. patient VSS, respirations equal and unlabored. seizure pads on bed.
--- NOTE | 2024-07-25 08:32 | PHA.MEDREC ---
Pharmacy Consult ? Medication Reconciliation Pharmacy has completed the medication reconciliation. Spoke with pt at bedside. She was a poor historian, but could confirm medications when going off the list.
[2024-07-25] MEDS: levETIRAcetam in NaCl (iso-os) 500 MG/100 ML PIGGYBACK 400 MG IV (09:03)
--- NOTE | 2024-07-25 11:18 | PC.NURSE ---
patient going to EEG
--- NOTE | 2024-07-25 11:19 | MHC.CM.PN ---
Pt lives alone, she has home health services, uses Home O[facility] from [facility], and a W/C. She said she has been to STR in the past, she could not say which one. PCP confirmed: Dr. Brianna Gonzalez. HCP is on file, naming Hemant and Pina, but she said this is not accurate, she has a new one, copy requested. DCP TBD, CM to follow and assist with DC plan.
--- NOTE | 2024-07-25 13:03 | MHC.SLORD ---
Speech Language Pathology Order Status: HOOP MAKER MACHINE went to ED overflow to evaluate pt for swallow, RN consulted. Pt d/c was in process. Pt sitting upright on bed, fully dressed, bags packed. Friend at bedside organizing transportation. Pt denied dysphagia, declining swallow evaluation. MD notified of declined ST evaluation. MD communicated that pending neurologist consult indicated. HOOP MAKER MACHINE to followup with bedside swallow eval as requested if pt remains inpatient.
--- NOTE | 2024-07-25 14:03 | MHC.CLN ---
RE; CONSULT PT IS MODERATELY MALNOURISHED PT WITH MILDLY DEPLETED SUBCUTANEOUS FAT AND MUSCLE MASS WITH BMI 18 PT IS WELL KNOWN TO FACILITY WITH PREVIOUS ADMISSIONS. CURRENTLY PT'S WT UP OVERALL WITH 12% NONSIGNIFICANT WT GAIN X 1 YEAR HOWEVER WT REMAINS BELOW IBW RANGE AND PT CONTINUES TO SHOW S/S MALNUTRITION REGULAR DIET RECOMMEND ADDING ENSURE BID TO INCREASE KCALS SUPP TO PROVIDE 700KCALS, 40G PROTEIN MONITOR PO INTAKE AND ENCOURAGE SUPPLEMENTS SEE ALSO FULL CLINICAL NUTRITION ASSESSMENT
[2024-07-25] MEDS: Albuterol/Iprat 2.5/0.5MG 3 ML AMPUL.NEB INHALE ×2 (14:43→20:43)
[2024-07-25] MEDS: 0.9 % Sodium Chloride Flush 3 ML SYRINGE IVFLUSH ×2 (15:02→21:15)
--- NOTE | 2024-07-25 15:33 | PM.EVENT ---
Event Note Date of Service: 07/26/24 Event Note: Patient seen and examined According the patient she did not take seizure medication for 2-3 days Physical exam similar to H&P Assessment and plan coordinated in H&P unable to take po until swallow eval ,we switched to iv keppra Time Spent With Patient Time: Total time managing care of this patient today ____ minutes.
--- NOTE | 2024-07-25 16:19 | PM.NEUROCN ---
History of Present Illness Data of Consult Service Date: 07/25/24 Primary Care Provider: MD ROBINA Haile Reason for consult: Fall ? Sz This is a 58-year-old female with history of chronic hypoxemic respiratory failure on 3 L supplemental oxygen, essential hypertension, Old left MCA CVA with residual right-sided hemiparesis from occluded left CCA and ICA, seizure disorder, coronary artery disease, mood disorder, takotsubo cardiomyopathy who presents to the emergency department for evaluation of fall. Patient while sitting on the toilet fell forward and hit her head. She thinks she had a seizure. Paramedics noted a large right forehead bruise. Sh ehad run out of Kera about 24 to 36 hrs earlier and did not have any. Patient had similar presentation in 01/02/2024 with speech deficit when she had an episode of seizure. Patient has residual right-sided weakness due to CVA in 2016. [facility] Past Medical History Medical History Seizure (~11/2021) History of multiple cerebrovascular accidents (CVAs) Hemiparesis affecting right side as late effect of cerebrovascular accident Aphasia History of non-ST elevation myocardial infarction (NSTEMI) (~11/2021) History of acute respiratory distress syndrome (ARDS) (~08/2021) Coronary artery disease Takotsubo cardiomyopathy COPD (chronic obstructive pulmonary disease) Respiratory failure with hypoxia Oxygen dependent Personal history of nicotine dependence Hemoptysis Closed subcapital fracture of femur Cocaine abuse Hypertensive emergency Normocytic anemia History of drug abuse Cocaine abuse Major depression, recurrent Acute CHF (congestive heart failure) Hypercapnic respiratory failure, chronic Asymptomatic carotid artery stenosis with infarction Chronic GERD Environmental allergies Anxiety, generalized Lipid disorder Asthma, moderate Family History Family History Father Substance abuse Mother Brain cancer Maternal Grandfather History of heart attack Maternal Grandmother History of heart attack Paternal Grandfather No problems noted. Paternal Grandmother No problems noted. Brother No problems noted. Brother No problems noted. Son No problems noted. Daughter No problems noted. Other Mental health disorder Surgical History Surgical History History of left-sided carotid endarterectomy (~09/2012) History of tonsillectomy and adenoidectomy Social History Social History Household Members: None Household Members Other:: daughter Housing: Apartment Do you presently have visiting nurse or other home services: No Unable to assess alcohol history related to: Refusing to respond Alcohol intake: former Patient Tobacco Use Status: Former Tobacco user Tobacco use type: Cigarette Cigarettes Per Day: 2 Years Smoked: COUPLE YEAR AGO PER PT e-Cigarette/Vaping Use: Never Used Second Hand Smoke Exposure: No Advance Directives Date on File: 11/25/21 service: No Current occupational status: disabled Cognitive needs: No Hearing needs: No Vision needs: No Meds Allergies Allergy/AdvReac Type Severity Reaction Status Date / Time crab Allergy Unknown Hives Verified 07/24/24 20:13 penicillin V Allergy Unknown hives Verified 07/24/24 20:13 Penicillins [PENICILLINS] Allergy Unknown hives Verified 07/24/24 20:13 SEASONAL ALLERGIES Allergy Mild RUNNY NOSE Uncoded 07/24/24 20:13 Active Medications: Current Medications Acetaminophen (Acetaminophen 325 Mg Tablet) 650 mg PO Q6H PRN PRN Reason: Pain, Mild (Pain Scale 1-3), fever or headache Albuterol/Ipratropium (Albuterol/Iprat 2.5/0.5mg 3 Ml Ampul.Neb) 3 ml INHALE RQ4H WHILE AWAKE [facility] Last Admin: 07/25/24 14:43 Dose: 3 ml Albuterol/Ipratropium (Albuterol/Iprat 2.5/0.5mg 3 Ml Ampul.Neb) 3 ml INHALE QID [facility] Amlodipine Besylate (Amlodipine Besylate 5 Mg Tablet) 5 mg PO DAILY [facility]; Protocol Aspirin (Aspirin Enteric Coated 81 Mg Tablet.Dr) 81 mg PO DAILY [place] Atorvastatin Calcium (Atorvastatin Calcium 40 Mg Tablet) 40 mg PO BEDTIME [facility] Calcium Carbonate (Calcium Carbonate 750 Mg Tab.Chew) 750 mg PO Q4H PRN PRN Reason: Heartburn Docusate Sodium (Docusate Sodium 100 Mg Capsule) 100 mg PO DAILY PRN PRN Reason: Constipation Enoxaparin Sodium (Enoxaparin Sodium 40 Mg/0.4 Ml Syringe) 40 mg SUBCUT Q24H [facility] Last Admin: 07/25/24 00:47 Dose: 40 mg Ferrous Sulfate (Ferrous Sulfate 324 Mg Tablet.) 324 mg PO BIDWM [facility] Folic Acid (Folic Acid 1 Mg Tablet) 1 mg PO DAILY [facility] Gabapentin (Gabapentin 300 Mg Capsule) 300 mg PO BID [facility] Levetiracetam (Levetiracetam 500 Mg Tablet) 500 mg PO BID [facility] Magnesium Hydroxide (Milk Of Magnesia 30 Ml Oral.Susp) 30 ml PO DAILY PRN PRN Reason: Constipation Melatonin (Melatonin 3 Mg Tablet) 6 mg PO BEDTIME PRN PRN Reason: Insomnia Metoprolol Tartrate (Metoprolol Tartrate 25 Mg Tablet) 25 mg PO BID [facility]; Protocol Mirtazapine (Mirtazapine 30 Mg Tablet) 30 mg PO BEDTIME [facility] Omeprazole (Omeprazole 20 Mg Capsule.) 20 mg PO DAILY@0630 [facility] Ondansetron HCl (Ondansetron Hcl 4 Mg/2 Ml Vial) 4 mg IVPUSH Q8H PRN PRN Reason: Nausea and Vomiting Polyethylene Glycol (Polyethylene Glycol 3350 17 Gm Powd.Pack) 17 gm PO DAILY PRN PRN Reason: Constipation Sertraline HCl (Sertraline Hcl 50 Mg Tablet) 50 mg PO DAILY [facility] Sodium Chloride (0.9 % Sodium Chloride Flush 3 Ml Syringe) 3 ml IVFLUSH QSHIFT [facility] Last Admin: 07/25/24 15:02 Dose: 3 ml Home Medications ?Medication ?Instructions ?Recorded ?Confirmed ?Last Taken ?Type polyethylene glycol 3350 17 gram 17 g PO DAILY PRN Constipation 01/03/24 07/25/24 Unknown History oral powder packet ibuprofen 400 mg tablet 400 mg PO Q8H PRN Pain 07/25/24 07/25/24 Unknown History ipratropium 0.5 mg-albuterol 3 mg 3 ml inhalation QID shortness of 07/25/24 07/25/24 07/24/24 History (2.5 mg base)/3 mL nebulization breath/copd soln Physical Exam Vital Signs: Vital Signs: Last Vital Signs Temp 97.5 F 07/25/24 15:28 Pulse 103 H 07/25/24 15:28 Resp 17 07/25/24 15:28 BP 116/60 07/25/24 15:28 Pulse Ox 100 07/25/24 15:28 O2 Del Method Nasal Cannula 07/25/24 15:28 O2 Flow Rate 4 07/25/24 15:28 Oxygen Flow Rate 4 07/24/24 20:10 BMI result Body Mass Index 18.2 Neuro: Other: She's alert and oriented and gives me a whole story. She tells me she's been out of the medicine for a little more than 24 hours for her seizures. She is certain that she had a seizure because she fell forward and hit her for head. She's oriented x3. Cranial nerves are normal. She has a dense spastic right hemiplegia, which is old. Neck is supple. Results Labs 07/25/24 04:54 07/25/24 04:54 Labs: Short CBC 07/24/24 07/25/24 Range/Units 20:52 04:54 WBC 6.5 9.7 (4.8-10.8) X10*3/uL Hgb 9.8 L 8.8 L (12.0-16.0) g/dl Hct 31.2 L 28.6 L (37.0-47.0) % Plt Count 277 263 (160-400) X10*3/uL BMP 07/24/24 07/25/24 20:52 04:54 Sodium 135 137 Potassium 4.2 4.1 Chloride 95 L 96 Carbon Dioxide 32 H 31 H BUN 9 8 L Creatinine 0.59 0.63 Calcium 9.1 D 9.3 Liver Function 07/24/24 Range/Units 20:52 Total Bilirubin 0.2 (0.0-1.0) mg/dL Direct Bilirubin < 0.2 (0.0-0.5) mg/dL AST 21 (5-31) U/L ALT 10 (0-31) U/L Alkaline Phosphatase 89 (39-117) U/L Albumin 4.2 (3.5-5.0) g/dL Urine 07/24/24 Range/Units 20:59 Urine Color Yellow Urine Appearance Clear Urine pH 7.0 (5.0-9.0) Ur Specific [place] 1.025 (1.005-1.025) Urine Protein Negative (Neg-Trace) mg/dL Urine Glucose (UA) Negative (Negative) mg/dL Assessment and Plan (1) Breakthrough seizure: Status: Acute It appears that she had a breakthrough seizure with a fall and right for head injury. A breakthrough seizure, most likely because she ran out of her, right more than 24 hours earlier and had not taken any. She's had presentations like this before. Her spastic right hemiplegia is unchanged from her baseline. She's not back to her baseline mental status. Her CT scan is unchanged. CTA shows no on the left common carotid to internal carotid occlusion. EEG shows mild left temporal slowing and occasional Sharp transients suggestive of seizure focus originating in the left hemisphere at the site of her previous stroke. Recommendation restart Keppra 500 mg twice a day and make sure that she has enough refills when she is discharged. Procedures Date of Service Date of Service: 07/25/24
[2024-07-25] MEDS: Ferrous Sulfate 324 MG TABLET.DR PO (17:18)
[2024-07-25] MEDS: Acetaminophen 325 MG TABLET 650 MG PO (17:20)
[2024-07-25] MEDS: levETIRAcetam 500 MG TABLET PO (21:14)
[2024-07-25] MEDS: Mirtazapine 30 MG TABLET PO (21:14)
[2024-07-25] MEDS: Atorvastatin Calcium 40 MG TABLET PO (21:14)
[2024-07-25] MEDS: ondansetron HCL 4 MG/2 ML VIAL IVPUSH (21:14)
[2024-07-25] MEDS: Metoprolol Tartrate 25 MG TABLET PO (21:15)
[2024-07-25] MEDS: Gabapentin 300 MG CAPSULE PO (21:15)
[2024-07-26] VITALS (9 sets, daily range): BP systolic 112–140; BP diastolic 54–63; PULSE 62–91; RESP 18–20; TEMP 36.2–36.9; O2SAT 86–100
[2024-07-26] MEDS: Enoxaparin Sodium 40 MG/0.4 ML SYRINGE SUBCUT (02:25)
[2024-07-26] MEDS: Omeprazole 20 MG CAPSULE.DR PO (06:38)
[2024-07-26] MEDS: Metoprolol Tartrate 25 MG TABLET PO ×2 (07:56→20:13)
[2024-07-26] MEDS: 0.9 % Sodium Chloride Flush 3 ML SYRINGE IVFLUSH ×2 (07:56→17:22)
[2024-07-26] MEDS: Sertraline HCL 50 MG TABLET PO (07:56)
[2024-07-26] MEDS: Folic Acid 1 MG TABLET PO (07:56)
[2024-07-26] MEDS: levETIRAcetam 500 MG TABLET PO ×2 (07:56→20:14)
[2024-07-26] MEDS: amLODIPine Besylate 5 MG TABLET PO (07:56)
[2024-07-26] MEDS: Aspirin Enteric Coated 81 MG TABLET.DR PO (07:56)
[2024-07-26] MEDS: Ferrous Sulfate 324 MG TABLET.DR PO ×2 (07:56→17:22)
[2024-07-26] MEDS: Gabapentin 300 MG CAPSULE PO ×2 (07:57→20:13)
[2024-07-26] MEDS: Albuterol/Iprat 2.5/0.5MG 3 ML AMPUL.NEB INHALE ×4 (08:08→19:33)
--- NOTE | 2024-07-26 12:03 | MHC.CM.PN ---
Cm spoke to pt.'s primary contact, Sukhdeep, who is her friend to clarify pt.'s living situation. Pt lives alone, has 2 HVAC MAINTENANCE TECHNICIAN's (her brother and a long time friend). She does have some time that she is alone. Her friend, Sukhdeep, is working on getting her an emergency pendant. He informed CM that if the rec. is STR for pt., and she declines, he will speak to her about it.
--- NOTE | 2024-07-26 13:30 | MHC.SL.SWA ---
Speech Pathologist Impression: Risk of Aspiration Due to: Neurological Condition Dysphasia Diet Status: Liquid Consistency and Strategies for Safe Swallow: Liquid Intake Recommendation: Thin Liquid Intake Strategies: Small Sips Solid Food Consistency: Dietary Recommendations: Regular Additional Modifications to Solid Foods: Patient with R sided weakness/hemiparesis and will need assistance with tray. Encourage patient to elect softer, fork ready foods from regular menu, however patient may need assistance with cutting up larger pieces of food if they come with meal. Open all containers, patient can use/drink with straws but may need them open and placed in drinks. Oral Medication Intake: Whole with Liquid Please contact the pharmacy regarding appropriate crushable or liquid drug formulations that are available whenever modified delivery is recommended. Compensatory Strategies and Precautions to be Taken for Safe Swallow: Sitting Upright (90 deg) Small Bites and Sips Alternate Liquids/Solids Supervision While Eating and Drinking for Safe Swallow: Intermittent Supervision Foods to Avoid: Too large pieces of food. Swallowing Recommended Treatments: Compens. Strategy Educat. Recommendation for Speech: Inpatient Speech Therapy Comment: Patient presents with most aspects of oral motor and swallow function WFL. Patient has residual R weakness/hemiparesis from remote CVA and will need assistance at meals, particularly with set up of tray, opening of items, cutting of food if in large pieces. Recommend patient continue on REGULAR diet with THIN liquids, Pills whole with liquid. TUBE COATER will evaluate toleration, downgrade may be considered if Regular consistencies are hard to manage (due to hemiparesis). Further, patient is informally presenting with anomic aphasia which she reports is worse since seizure. TUBE COATER will f/u with Language/Cognitive assessment. MD/SABIHA advised by mike eisenberg RN in person. Frequency/Duration: Date Range for Service Req: Timeline to reassess: Utility Aide Clinican/Clinical Fellow: No Supervisory Statement: I have reviewed and agree with the student/clinical fellow's documentation: N/A Speech Language Pathologist: Jennifer Aguero M.A., [facility] [place]
--- NOTE | 2024-07-26 15:05 | P.PNIM_ITS ---
Subjective Subjective Date of Service: 07/26/24 Interval History: ? speech symptoms similar to yesterday no new seizure activity Physical Exam 2 Vital Signs: Vital Signs: Last Vital Signs Temp 98.4 F 07/26/24 12:00 Pulse 77 07/26/24 12:00 Resp 20 07/26/24 12:00 BP 112/54 L 07/26/24 12:00 Pulse Ox 99 07/26/24 12:00 O2 Del Method Nasal Cannula 07/26/24 12:00 O2 Flow Rate 2 07/26/24 12:00 Oxygen Flow Rate 4 07/24/24 20:10 BMI result Body Mass Index 18.2 Appearance: Alert.? Oriented X3. cvs: rrr, [id number] . res: clear to auscultation ,no rhonchii or wheezing abd: no rebound or guarding ,nt, bs present. ext pulses present , no cyanosis. neuro: right-sided weakness noted Objective Data Active Medications Acetaminophen (Acetaminophen 325 Mg Tablet) 650 mg PO Q6H PRN PRN Reason: Pain, Mild (Pain Scale 1-3), fever or headache Last Admin: 07/25/24 17:20 Dose: 650 mg Documented By: RE Albuterol/Ipratropium (Albuterol/Iprat 2.5/0.5mg 3 Ml Ampul.Neb) 3 ml INHALE RQ4H WHILE AWAKE [facility] Last Admin: 07/26/24 11:53 Dose: 3 ml Documented By: TOD Albuterol/Ipratropium (Albuterol/Iprat 2.5/0.5mg 3 Ml Ampul.Neb) 3 ml INHALE QID [facility] Last Admin: 07/26/24 11:52 Dose: Not Given Documented By: TOD Non-Admin Reason: Duplicate Order Amlodipine Besylate (Amlodipine Besylate 5 Mg Tablet) 5 mg PO DAILY [facility]; Protocol Last Admin: 07/26/24 07:56 Dose: 5 mg Documented By: RE Aspirin (Aspirin Enteric Coated 81 Mg Tablet.) 81 mg PO DAILY [facility] Last Admin: 07/26/24 07:56 Dose: 81 mg Documented By: RE Atorvastatin Calcium (Atorvastatin Calcium 40 Mg Tablet) 40 mg PO BEDTIME [facility] Last Admin: 07/25/24 21:14 Dose: 40 mg Documented By: JORGE Calcium Carbonate (Calcium Carbonate 750 Mg Tab.Chew) 750 mg PO Q4H PRN PRN Reason: Heartburn Docusate Sodium (Docusate Sodium 100 Mg Capsule) 100 mg PO DAILY PRN PRN Reason: Constipation Enoxaparin Sodium (Enoxaparin Sodium 40 Mg/0.4 Ml Syringe) 40 mg SUBCUT Q24H [facility] Last Admin: 07/26/24 02:25 Dose: 40 mg Documented By: JORGE Ferrous Sulfate (Ferrous Sulfate 324 Mg Tablet.) 324 mg PO BIDWM [facility] Last Admin: 07/26/24 07:56 Dose: 324 mg Documented By: RE Folic Acid (Folic Acid 1 Mg Tablet) 1 mg PO DAILY [facility] Last Admin: 07/26/24 07:56 Dose: 1 mg Documented By: RE Gabapentin (Gabapentin 300 Mg Capsule) 300 mg PO BID [facility] Last Admin: 07/26/24 07:57 Dose: 300 mg Documented By: RE Levetiracetam (Levetiracetam 500 Mg Tablet) 500 mg PO BID [facility] Last Admin: 07/26/24 07:56 Dose: 500 mg Documented By: RE Magnesium Hydroxide (Milk Of Magnesia 30 Ml Oral.Susp) 30 ml PO DAILY PRN PRN Reason: Constipation Melatonin (Melatonin 3 Mg Tablet) 6 mg PO BEDTIME PRN PRN Reason: Insomnia Metoprolol Tartrate (Metoprolol Tartrate 25 Mg Tablet) 25 mg PO BID [facility]; Protocol Last Admin: 07/26/24 07:56 Dose: 25 mg Documented By: RE Mirtazapine (Mirtazapine 30 Mg Tablet) 30 mg PO BEDTIME [facility] Last Admin: 07/25/24 21:14 Dose: 30 mg Documented By: JORGE Omeprazole (Omeprazole 20 Mg Capsule.) 20 mg PO DAILY@0630 [facility] Last Admin: 07/26/24 06:38 Dose: 20 mg Documented By: JORGE Ondansetron HCl (Ondansetron Hcl 4 Mg/2 Ml Vial) 4 mg IVPUSH Q8H PRN PRN Reason: Nausea and Vomiting Last Admin: 07/25/24 21:14 Dose: 4 mg Documented By: HO.BELANGB Polyethylene Glycol (Polyethylene Glycol 3350 17 Gm Powd.Pack) 17 gm PO DAILY PRN PRN Reason: Constipation Sertraline HCl (Sertraline Hcl 50 Mg Tablet) 50 mg PO DAILY [facility] Last Admin: 07/26/24 07:56 Dose: 50 mg Documented By: RE Sodium Chloride (0.9 % Sodium Chloride Flush 3 Ml Syringe) 3 ml IVFLUSH QSHIFT [facility] Last Admin: 07/26/24 07:56 Dose: 3 ml Documented By: RE Labs 07/25/24 04:54 07/25/24 04:54 Assessment and Plan (1) Aphasia: Status: Inactive Plan This is a 58-year-old female with pertinent history of chronic hypoxemic respiratory failure on 3 L supplemental oxygen, essential hypertension, CVA with residual right-sided hemiparesis, seizure disorder, coronary artery disease, mood disorder, takotsubo cardiomyopathy who presents to the emergency department for evaluation of difficulty in speech. Aphasia: says intermittent speech difficulty improving CT scan is unchanged. CTA shows no on the left common carotid to internal carotid occlusion(seems similar to previous cta ). EEG shows mild left temporal slowing and occasional Sharp transients suggestive of seizure focus originating in the left hemisphere at the site of her previous stroke Likely in the setting of seizure due to missed doses of Keppra. added another mri -since still c/o symptoms seen by neuro yesterday-possible breakthough seizure, need neuro f/u. Moderate protein calorie malnutrition: Nutrition consult Coronary artery disease: On high-intensity statin, aspirin and beta-pedro History of CVA: On high-intensity statin and aspirin Seizure disorder: Resume home Keppra dosage. Neurology consult pending Gastroesophageal reflux disease: On PPI Mood disorder: On mirtazapine and sertraline Chronic anemia: On iron supplementation and folic acid Chronic hypoxemic respiratory failure due to COPD: No exacerbation during admission. On 3-4 L baseline home oxygen. #. Lactic acidosis due to seizure. No sepsis DVT prophylaxis: Lovenox Full code Reason for continued hospitalization: Pending studies and specialist consult. Monitor for seizures Quality Stroke Does the patient have a stroke diagnosis?: No VTE Prior VTE?: No VTE Risk Level:: Medical - moderate - high VTE Device Contraindication: Treatment Not Indicated VTE Drug Contraindication: N/A - Med Ordered
[2024-07-26] MEDS: Atorvastatin Calcium 40 MG TABLET PO (20:13)
[2024-07-26] MEDS: Mirtazapine 30 MG TABLET PO (20:13)
[2024-07-27] VITALS: BP 126/56; PULSE 78; RESP 20; TEMP 36.6; O2SAT 98
[2024-07-27] MEDS: Enoxaparin Sodium 40 MG/0.4 ML SYRINGE SUBCUT (02:17)
[2024-07-27] MEDS: 0.9 % Sodium Chloride Flush 3 ML SYRINGE IVFLUSH ×2 (02:18→09:39)
[2024-07-27 02:57] VITALS: BP 116/55; PULSE 78; RESP 20; TEMP 36.2; O2SAT 98
[2024-07-27] MEDS: Omeprazole 20 MG CAPSULE.DR PO (06:11)
[2024-07-27 08:00] VITALS: BP 143/57; PULSE 70; RESP 20; TEMP 36.2; O2SAT 98
[2024-07-27] MEDS: Metoprolol Tartrate 25 MG TABLET PO (09:37)
[2024-07-27] MEDS: levETIRAcetam 500 MG TABLET PO (09:37)
[2024-07-27] MEDS: Aspirin Enteric Coated 81 MG TABLET.DR PO (09:38)
[2024-07-27] MEDS: Sertraline HCL 50 MG TABLET PO (09:38)
[2024-07-27] MEDS: amLODIPine Besylate 5 MG TABLET PO (09:38)
[2024-07-27] MEDS: Gabapentin 300 MG CAPSULE PO (09:38)
[2024-07-27] MEDS: Ferrous Sulfate 324 MG TABLET.DR PO (09:38)
[2024-07-27] MEDS: Folic Acid 1 MG TABLET PO (09:39)
[2024-07-27 11:19] VITALS: PULSE 70; RESP 20; O2SAT 96
[2024-07-27] MEDS: Albuterol/Iprat 2.5/0.5MG 3 ML AMPUL.NEB INHALE (11:19)
--- NOTE | 2024-07-27 11:29 | PM.DS ---
DS: Providers Provider Date of Service: 07/27/24 Date of admission: 07/25/24 00:24 Date of discharge: 07/27/24 Primary care physician: Brianna Gonzalez MD Consults: 07/25/24 00:24 Consult to Neurology Routine Consulting Provider: [facility] Reason for consultation: seizure Attending physician on discharge: Les Ribeiro Discharging clinician: Les Ribeiro DS: Diagnosis Discharge Diagnosis (1) Aphasia: Status: Inactive DS: Summary Hospital Course Hospital Course: HPI:58-year-old female with pertinent history of chronic hypoxemic respiratory failure on 3 L supplemental oxygen, essential hypertension, CVA with residual right-sided hemiparesis, seizure disorder, coronary artery disease, mood disorder, takotsubo cardiomyopathy who presents to the emergency department for evaluation of fall. Patient while sitting on the toilet fell forward and hit her head. Unclear if she lost consciousness. She thinks she might have had a seizure. Paramedics noted obvious bruise to the forehead. Speech was initially at baseline but in the ER, speech was found to be slightly altered. Patient states she ran out of her Keppra 1 day prior to presentation. Patient had similar presentation in 01/02/2024 with speech deficit when she had an episode of seizure. Patient has residual right-sided weakness due to CVA in 2016. No fever, chills, chest pain, palpitations, shortness of breath, abdominal pain, changes in urinary or bowel habits.In the emergency department, patient was given aspirin and IV Keppra. Hospital course: Patient admitted to hospital because of breakthrough seizure which happened in the setting of missing her seizure medications: Patient had CT, CTA and MRI-seems chronic changes , seen by neurology recommended continue Keppra current dosing 500 b.i.d., patient Keppra prescription was sent. Patient was strongly advised to add her and compliant with her medication .Patient is currently at his baseline and asymptomatic. plan: continue Keppra dosing 500 b.i.d. Patient was strongly advised to add her and compliant with her medication . Assessment and plan coordination time spent 40min, she understands and in aggreement with above plan. Time Attestation Total time managing care of this patient today: 40 mintues. Discharge Coordination Time (in mins): 40 min Quality: Safe Use of Opioids Does Pt have an Active Cancer Diagnosis on the Problem List?: No Quality: Stroke Does the patient have a stroke diagnosis?: No Physical Exam Vital Signs: Vital Signs: Last Vital Signs Temp 97.2 F 07/27/24 08:00 Pulse 70 07/27/24 11:19 Resp 20 07/27/24 11:19 BP 143/57 H 07/27/24 08:00 Pulse Ox 98 07/27/24 08:00 O2 Del Method Nasal Cannula 07/27/24 08:00 O2 Flow Rate 2 07/27/24 08:00 Oxygen Flow Rate 4 07/24/24 20:10 BMI result Body Mass Index 18.2 Appearance: Alert.? Oriented X3. cvs: rrr, [id number] . res: clear to auscultation ,no rhonchii or wheezing abd: no rebound or guarding ,nt, bs present. ext pulses present , no cyanosis. neuro: right-sided weakness noted DS: Data Data Completed and Pending Completed studies during hospitalization [Text1]: Procedures Assistance with Respiratory Ventilation, 24-96 Consecutive Hours, Continuous Positive Airway Pressure (08/16/21) Assistance with Respiratory Ventilation, Less than 24 Consecutive Hours, Continuous Positive Airway Pressure (03/17/23) Insertion of Infusion Device into Superior Vena Cava, Percutaneous Approach (08/16/21) Introduction of Remdesivir Anti-infective into Central Vein, Percutaneous Approach, [employer] 5 (08/16/21) Reposition Right Upper Femur with Internal Fixation Device, Percutaneous Approach (09/24/23) Transfusion of Nonautologous Red Blood Cells into Peripheral Vein, Percutaneous Approach (09/24/23) Imaging Chest x-ray: Radiologist's impression: ITS Impressions Head CT 07/24/24 19:49 IMPRESSION: 1. No evidence of acute intracranial hemorrhage or edematous territorial infarction. 2. Chronic left MCA territory infarct. Mild underlying microangiopathy and generalized cerebral volume loss. 3. Small right frontal scalp hematoma without associated osseous abnormalities. This critical result was discussed with Dr. Stanton at 20:12 on 07/24/2024 and it was ascertained that the content and urgency of the report was understood at the time of direct communication. Electronically signed by: Dario Deleon DO 07/24/2024 08:17 PM [facility] Head/Neck CTA 07/24/24 19:54 IMPRESSION: 1. CTA head demonstrates no large vessel occlusion, saccular aneurysm, or dissection. 2. CTA neck demonstrates complete occlusion of the left common carotid artery and left cervical internal carotid artery with distal reconstitution in the clinoid ICA. No new hemodynamically significant stenosis, dissection, or aneurysm. Electronically signed by: Zunilda Rocha MD 07/24/2024 08:48 PM EST RP Brain MRI 07/26/24 14:30 IMPRESSION: There is no area of abnormal restricted diffusion to indicate an acute/subacute cerebral or cerebellar infarction. No intracranial hemorrhage. Chronic left middle cerebral artery infarction. There is occlusion of the left internal carotid artery. Electronically signed by: Oc Bazan DO 07/26/2024 04:44 PM EST RP Discharge Plan Discharge Anticipated Discharge Date/Time: 07/27/24 11:08 Patient Disposition: Home Health Service Discharge Diagnosis: Breakthrough seizure Referrals: Brianna Gonzalez MD [Primary Care Provider] - 1 Week Discharge Medications: Continued albuterol sulfate 90 mcg/actuation HFA aerosol inhaler 2 puff PO Q6H PRN (Reason: bronchospasm) 30 Days Qty: 6.7 0RF docusate sodium 100 mg capsule 100 mg PO DAILY PRN (Reason: Constipation) Qty: 90 0RF atorvastatin 40 mg tablet 40 mg PO BEDTIME Qty: 90 0RF metoprolol tartrate 25 mg tablet 25 mg PO BID 90 Days Qty: 180 0RF ferrous sulfate 324 mg (65 mg iron) tablet,delayed release (DR/EC) 324 mg PO BIDWM Qty: 60 0RF polyethylene glycol 3350 17 gram powder in packet 17 g PO DAILY PRN (Reason: Constipation) ibuprofen 400 mg Tablet 400 mg PO Q8H PRN (Reason: Pain) ipratropium-albuterol 0.5 mg-3 mg(2.5 mg base)/3 mL solution for nebulization 3 ml inhalation QID levetiracetam 500 mg tablet 500 mg PO BID 180 Days Qty: 360 1RF (DME) Diapers Very small See Rx Instructions .Route .MEDSUPPLY Qty: 90 5RF Rx Instructions: 3 times a day amlodipine 5 mg tablet 5 mg PO DAILY 90 Days Qty: 90 0RF aspirin [Adult Low Dose Aspirin] 81 mg tablet,delayed release (DR/EC) 81 mg PO DAILY Qty: 90 0RF folic acid 1 mg tablet 1 mg PO DAILY Qty: 90 3RF omeprazole 20 mg capsule,delayed release(DR/EC) 20 mg PO DAILY@0630 Qty: 90 0RF sertraline 50 mg tablet 50 mg PO DAILY Qty: 90 3RF gabapentin 300 mg capsule 300 mg PO BID 90 Days Qty: 180 0RF mirtazapine 30 mg tablet 30 mg PO BEDTIME 90 Days Qty: 90 1RF Discharge Orders: Discharge Order (Routine); Ordered 07/27/24 Ordered By: Les Ribeiro Diet: Advance to usual diet Activity on Discharge: As tolerated Stand Alone Forms: Patient Portal Discharge page Print Language: Mozambican Care Plan Goals: Patient admitted to hospital because of breakthrough seizure which happened in the setting of missing her seizure medications: Patient had CT, CTA and MRI-seems chronic changes , seen by neurology recommended continue Keppra current dosing 500 b.i.d., patient Keppra prescription was sent. Patient was strongly advised to add her and compliant with her medication .Patient is currently at his baseline and asymptomatic. Health Concerns: As above. Plan of Treatment: as above. Assessment: As above.
[2024-07-27 12:00] VITALS: BP 124/61; PULSE 83; RESP 18; TEMP 36.9; O2SAT 96
--- NOTE | 2024-07-27 12:08 | P.F2F_ITS ---
Service Date Service Date: 07/27/24 Encounter Date of encounter: 07/27/24 Encounter: Breakthrough seizure Reasons for Services Signs and symptoms assessed: Any new seizure activity or new symptoms Reason for nursing home: medication management, medication treatment and teach disease management Reason for physical therapy: home safety and mobility, therapeutic exercises, restore joint function, gait/transfer training, assess need for DME, ADL training, energy conservation and other MD Overseeing Care: Brianna Gonzalez Homebound: Leaving the home is medically contraindicated at this time without the asist of a device and/or another person due th the listed conditions above and below. Reason homebound: weakness related to hospital stay Homebound supporting statement: Patient is generalized weak post hospitalization, has multiple comorbidities including breakthrough seizure: need help with the appointments, lab draw, medication management, PT Certification: Based on the above findings, I certify that this patient is confined to the home and needs intermittent nursing home care, physical therapy and/or speech therapy, or continues to need occupational therapy. The patient is under my care, and I have initiated the establishment of the plan of care. The patient will be followed by a physician who will periodically review the plan of care. Time Spent With Patient Time: Total time managing care of this patient today ____ minutes.
--- NOTE | 2024-07-27 13:16 | MHC.SL.SWA ---
Addendum entered and electronically signed by Alesia Ledbetter MA, CCC-VARNISH FINISHER 07/27/24 13:19: Discussed w/ Dr. Olga CHRISTENSEN will be added to [facility] as part of d/c plan. Original Note: Speech Pathologist Impression: Swallow WFL, Mild Anomic Aphasia Risk of Aspiration Due to: Neurological Condition Dysphasia Diet Status: No Change Liquid Consistency and Strategies for Safe Swallow: Liquid Intake Recommendation: Thin Liquid Intake Strategies: Small Sips Solid Food Consistency: Dietary Recommendations: Regular Additional Modifications to Solid Foods: VARNISH FINISHER will continue to follow to further assess, provide strategies for mild anomic aphasia. Oral Medication Intake: Whole with Liquid Please contact the pharmacy regarding appropriate crushable or liquid drug formulations that are available whenever modified delivery is recommended. Compensatory Strategies and Precautions to be Taken for Safe Swallow: Sitting Upright (90 deg) Double Swallow Small Bites and Sips Alternate Liquids/Solids Rate of Ingestion Change Supervision While Eating and Drinking for Safe Swallow: Intermittent Supervision Foods to Avoid: Too large pieces of food. Swallowing Recommended Treatments: Compens. Strategy Educat. Recommendation for Speech: Inpatient Speech Therapy Comment: Patient presents with most aspects of oral motor and swallow function WFL. Patient has residual R weakness/hemiparesis from remote CVA and will need assistance at meals, particularly with set up of tray, opening of items, cutting of food if in large pieces. Recommend patient continue on REGULAR diet with THIN liquids, Pills whole with liquid. VARNISH FINISHER will evaluate toleration, downgrade may be considered if Regular consistencies are hard to manage (due to hemiparesis). Further, patient is informally presenting with anomic aphasia which she reports is worse since seizure. VARNISH FINISHER will f/u with Language/Cognitive assessment. MD/SABIHA advised by mike eisenberg RN in person. Frequency/Duration: Date Range for Service Req: Timeline to reassess: [employer]ocad Detailer Clinican/Clinical Fellow: No Supervisory Statement: I have reviewed and agree with the student/clinical fellow's documentation: N/A Speech Language Pathologist: Alesia Ledbetter M.A., [facility]-[employer]ER
[2024-07-29 19:29] LABS: Levetiracetam Keppra <2.0 mcg/mL (6.0-46.0)
== END 2024-07-27 15:15 | disposition home health service (06) | DRG 53 ==
LOC: HO.ED 07-25 00:24 → HO.EDOVER 07-25 00:48 → HO.IMC 07-25 11:39
PROVIDERS: Admitting Provider Student in an Organized Health Care Education/Training Program; Emergency Provider Emergency Medicine; PCP Internal Medicine; Visit Provider Internal Medicine
DX: G40.909 Epilepsy, unspecified, not intractable, without status epilepticus (principal); E87.20 Acidosis, unspecified; E44.0 Moderate protein-calorie malnutrition; J96.11 Chronic respiratory failure with hypoxia; I69.351 Hemiplegia and hemiparesis following cerebral infarction affecting right dominant side; T42.6X6A Underdosing of other antiepileptic and sedative-hypnotic drugs, initial encounter; Z99.81 Dependence on supplemental oxygen; K21.9 Gastro-esophageal reflux disease without esophagitis; I25.10 Atherosclerotic heart disease of native coronary artery without angina pectoris; D64.9 Anemia, unspecified; R47.01 Aphasia; J44.9 Chronic obstructive pulmonary disease, unspecified; Z68.1 Body mass index [BMI] 19.9 or less, adult; Z79.82 Long term (current) use of aspirin; Z79.899 Other long term (current) drug therapy
CPT/HCPCS: 36415; 70450; 70496; 70498; 70551; 80048; 80076; 80177; 80307; 81001; 82947; 83735; 83880; 84484; 85025; 85027; 85610; 92526; 92610; 93005; 94640; 95816; 97162; 99285; J1650; J1953; J2405; Q9967

== ENCOUNTER → 2024-07-24 19:51 | Outpatient (BNV) | payer OTHER, SELFPAY | PROVIDERS: Admitting Provider Student in an Organized Health Care Education/Training Program; Emergency Provider Emergency Medicine; PCP Internal Medicine; Visit Provider Internal Medicine Cardiovascular Disease | DX: R42 Dizziness and giddiness (principal) | CPT/HCPCS: 93010 ==

== ENCOUNTER → 2024-07-25 00:24 | Outpatient (BNV) | payer OTHER, SELFPAY | PROVIDERS: Admitting Provider Student in an Organized Health Care Education/Training Program; Emergency Provider Emergency Medicine; PCP Internal Medicine; Visit Provider Student in an Organized Health Care Education/Training Program | DX: G40.919 Epilepsy, unspecified, intractable, without status epilepticus (principal); R47.01 Aphasia; Z91.199 Patient's noncompliance with other medical treatment and regimen due to unspecified reason | CPT/HCPCS: 99222; 99231; 99239; 99499; G0180 ==

== ENCOUNTER → 2024-07-25 00:24 | Outpatient (BNV) | payer OTHER, SELFPAY | PROVIDERS: Admitting Provider Student in an Organized Health Care Education/Training Program; Emergency Provider Emergency Medicine; PCP Internal Medicine; Visit Provider Psychiatry & Neurology Neurology | DX: G40.919 Epilepsy, unspecified, intractable, without status epilepticus (principal); G81.11 Spastic hemiplegia affecting right dominant side | CPT/HCPCS: 99222 ==

== ENCOUNTER 2024-07-31 14:42 | Outpatient (AMB) | payer OTHER, SELFPAY ==
--- NOTE | 2024-07-31 14:54 | A.OFFVIS_ITS ---
Vital Signs 07/31/24 14:55 Height 5 ft 1 in Weight 96 lb BMI 18.1 BP 130/58 L Blood Pressure Location Lt brachial Position Sitting Pulse 73 Pulse Source Pulse Oximeter Pulse Oximetry (%) 96 Oxygen Delivery Method Nasal Cannula Oxygen Flow Rate 3 Intake Visit Reasons: COPD Intake Note: pt is here for follow and had a seizure which ended up here for observation for a few days, states her breathing is okay, no better no different. Educational Administrator Required: No Allergies crab Allergy (Unknown, Verified 07/31/24 16:45) Hives penicillin V Allergy (Unknown, Verified 07/31/24 16:45) hives Penicillins [PENICILLINS] Allergy (Unknown, Verified 07/31/24 16:45) hives SEASONAL ALLERGIES Allergy (Mild, Uncoded 07/31/24 16:45) RUNNY NOSE Medication List - Last Reconciled 07/31/24 by Juan Carlos Gonzalez MD albuterol sulfate 90 mcg/actuation 2 puffs PO Q6H PRN 30 days amlodipine 5 mg PO DAILY 90 days aspirin (Adult Low Dose Aspirin) 81 mg PO DAILY atorvastatin 40 mg PO BEDTIME [Diapers 3 times a day] docusate sodium 100 mg PO DAILY PRN ferrous sulfate 324 mg PO BIDWM folic acid 1 mg PO DAILY gabapentin 300 mg PO BID 90 days ipratropium-albuterol 0.5 mg-3 mg(2.5 mg base)/3 mL 3 mL inhalation QID levetiracetam 500 mg PO BID 180 days metoprolol tartrate 25 mg PO BID 90 days mirtazapine 30 mg PO BEDTIME 90 days omeprazole 20 mg PO DAILY@0630 polyethylene glycol 3350 17 grams PO DAILY PRN sertraline 50 mg PO DAILY Do you need a note to return to daycare/school/sports/work: No HPI HPI COPD: Details: THIS 58 YEARS OLD FEMALE, WITH PREVIOUS HISTORY OF STROKE AND LIVING WITH RIGHT HEMIPLEGIA, HAD A SEIZURE EPISODE ABOUT A WEEK AGO, SUFFERED FROM CONTUSION OF THE RIGHT SIDE OF THE FOREHEAD. SHE WAS IN THE [facility] FOR OBSERVATION FOR A FEW DAYS. CT SCAN OF THE HEAD NOT SHOW ANY INTERNAL INJURY. SHE DID NOT HAVE ANY RECURRENT SEIZURE. PATIENT HAS BEEN ON STARTED ON KEPPRA 500 MG B.I.D., SHE IS ALSO ON GABAPENTIN 300 MG B.I.D.. BREATHING STATUS IS STABLE BEFORE, SHE USES IPRATROPIUM-ALBUTEROL SOLUTION IN THE NEBULIZER 3 TIMES A DAY, AND 4TH TIME IF NEEDED. SHE DOES NOT HAVE ANY OTHER INHALERS. SHE CLAIMS THAT THE BREATHING CARNEY HE IS STAYING VERY STABLE AND NOT ANY WORSE. [facility] Medical History Seizure (~11/2021) History of multiple cerebrovascular accidents (CVAs) Hemiparesis affecting right side as late effect of cerebrovascular accident Aphasia History of non-ST elevation myocardial infarction (NSTEMI) (~11/2021) History of acute respiratory distress syndrome (ARDS) (~08/2021) Coronary artery disease Takotsubo cardiomyopathy COPD (chronic obstructive pulmonary disease) Respiratory failure with hypoxia Oxygen dependent Personal history of nicotine dependence Hemoptysis Closed subcapital fracture of femur Cocaine abuse Hypertensive emergency Normocytic anemia History of drug abuse Cocaine abuse Major depression, recurrent Acute CHF (congestive heart failure) Hypercapnic respiratory failure, chronic Asymptomatic carotid artery stenosis with infarction Chronic GERD Environmental allergies Anxiety, generalized Lipid disorder Asthma, moderate Surgical History History of left-sided carotid endarterectomy (~09/2012) History of tonsillectomy and adenoidectomy Family History Father Substance abuse Mother Brain cancer Maternal Grandfather History of heart attack Maternal Grandmother History of heart attack Paternal Grandfather No problems noted. Paternal Grandmother No problems noted. Brother No problems noted. Brother No problems noted. Son No problems noted. Daughter No problems noted. Other Mental health disorder Social History Household Members: None Household Members Other:: daughter Housing: Apartment Do you presently have visiting nurse or other home services: No Unable to assess alcohol history related to: Refusing to respond Alcohol intake: former Patient Tobacco Use Status: Former Tobacco user Tobacco use type: Cigarette Cigarettes Per Day: 2 Years Smoked: COUPLE YEAR AGO PER PT e-Cigarette/Vaping Use: Never Used Second Hand Smoke Exposure: No Advance Directives Date on File: 11/25/21 service: No Current occupational status: disabled Cognitive needs: No Hearing needs: No Vision needs: No Review of Systems Const All systems reviewed & are unremarkable except as noted in HPI and below Eyes Reports no additional complaints ENT Reports no additional complaints (Is set at occasional nasal bleed due to irritation by the nasal cannula) Card Denies chest pain and Denies dyspnea on exertion Resp Denies dyspnea on exertion GI Reports heartburn (Symptoms of GERD treated with omeprazole) Reports no additional complaints Musc Reports abnormal gait (Impaired gait due to right hemiplegia), Reports muscle weakness and Reports other (Right-sided hemiplegia) Skin/Breast Reports system reviewed and no additional complaints, except as documented Neuro Reports abnormal gait (Impaired gait due to right hemiplegia) Psych Reports depression Endo Reports no additional complaints Antwan/Lymph Reports no additional complaints Physical Exam Vital Signs: Last Vital Signs Pulse 73 07/31/24 14:55 BP 130/58 L 07/31/24 14:55 Pulse Ox 96 07/31/24 14:55 Oxygen Delivery Method Nasal Cannula 07/31/24 14:55 Oxygen Flow Rate 3 07/31/24 14:55 BMI result Body Mass Index 18.1 Const Other: Chronically sick looking, of a thin build, and somewhat emaciated. General: comfortable (in wheelchair ), no acute distress, alert and awake Orientation/consciousness: patient oriented x3 HEENT Head: Yes normal to inspection and Yes other (ECCHYMOSIS, ON THE RIGHT SIDE OF THE FOREHEAD. NO HEMATOMA) General nose exam: No nasal polyps present and No nasal discharge present Face and sinus: Yes sinuses nontender Mouth: oropharynx normal Throat: Yes posterior oropharynx normal Eyes General: appearance normal, both eyes and all related structures Neck Neck: Yes normal visual inspection, Yes no lymphadenopathy, Yes trachea midline and Yes no JVD Thyroid: Thyroid normal Chest Chest palpation & inspection: normal inspection of the chest, normal palpation of entire chest wall and no tenderness Resp Other: Percussion note is hyper resonant. Breath sounds are distant with prolonged expiratory phase. No wheezes or crepitations are heard. Cardio Palpation: normal PMI Rate: regular rate Rhythm: regular rhythm Heart sounds: no gallops and no murmurs GI Palpation (GI): Soft to palpation, nontender, No hepatosplenomegaly present and no masses Auscultation: normal bowel sounds Back/Spine/Pelvis Thoracic/Lumbar Spine: thoracic and lumbar spine normal to inspection and thoraco-lumbar ROM limited Skin General skin exam: no rashes or lesions noted Neuro General: patient oriented x3 and No no focal motor deficits (Has right hemiplegia) Cranial nerves: Yes CN's II-XII intact bilaterally Extrem General: Yes normal to inspection, Yes no clubbing, cyanosis or edema and Yes no calf tenderness Psych Appearance: grossly normal and well kempt Speech and movement: Normal speech and movement present Results Reviewed Results Reviewed: COURSE IN THE HOSPITAL IS REVIEWED. 05/16/24 PET SCAN AT [facility]. THE PULMONARY NODULES IN THE RIGHT AND LEFT LOWER LOBES, WERE NOT FDG POSITIVE. HOWEVER A REPEAT CT SCAN OF THE CHEST WAS RECOMMENDED IN A SHORT INTERVAL Assessment & Plan Assessment & Plan (1) COPD (chronic obstructive pulmonary disease): Comment: She does have chronic obstructive pulmonary disease secondary to her long-time smoking. It seems to be fairly stable at this time. Code(s): J44.9 - Chronic obstructive pulmonary disease, unspecified Category: Medical Qualifiers: COPD type: emphysema Emphysema type: panlobular Qualified Code(s): J43.1 - Panlobular emphysema Plan: CONTINUE USING DUONEB UPDRAFTS Q 6 HOURS WHILE AWAKE AND P.R.N. AT NIGHT IF THERE IS ANY DISTRESS. (2) Respiratory failure with hypoxia: Comment: Patient does have chronic hypoxemia and is dependent on oxygen. Using 3-4 L/minute continuously, Code(s): J96.91 - Respiratory failure, unspecified with hypoxia Category: Medical Plan: CONTINUE TO USE O2 AT NIGHT AND ALSO DURING THE DAYTIME, DOES HAVE STATIONARY CONCENTRATOR WELL PORTABLE CYLINDERS. (3) Pulmonary nodule 1 cm or greater in diameter: Comment: She does have a few pulmonary nodules and 1 being close to 1 cm. PET SCAN AT [facility] , THE PULMONARY NODULES IN THE RIGHT LOWER LOBE WELL IN LEFT LOWER LOBE FDG NEGATIVE . Code(s): R91.1 - Solitary pulmonary nodule Category: Medical Plan: WILL CONTINUE CLOSE MONITORING AND REPEAT CT SCAN OF THE CHEST. IN ABOUT 3 MONTHS AGAIN. Coding Level of Care Code Est Pt Level 4 (67151) Diagnoses Panlobular emphysema J43.1 COPD type: emphysema Emphysema type: panlobular Respiratory failure with hypoxia J96.91 Pulmonary nodule 1 cm or greater in diameter R91.1
[2024-07-31 14:55] VITALS: BP 130/58; PULSE 73; O2SAT 96; BMI 18.1
== END 2024-07-31 15:17 | disposition home or self-care (01) ==
PROVIDERS: PCP Internal Medicine; Visit Provider Internal Medicine
DX: J43.1 Panlobular emphysema (principal); J96.91 Respiratory failure, unspecified with hypoxia; R91.1 Solitary pulmonary nodule
CPT/HCPCS: 99214

== ENCOUNTER → 2024-07-31 14:42 | Outpatient (BNVA) | payer OTHER, SELFPAY | PROVIDERS: PCP Internal Medicine; Visit Provider Internal Medicine | DX: J43.1 Panlobular emphysema (principal); J96.91 Respiratory failure, unspecified with hypoxia; R91.1 Solitary pulmonary nodule | CPT/HCPCS: 99212 ==

== ENCOUNTER → 2024-10-11 09:00 | Outpatient (BNVA) | payer OTHER, SELFPAY | PROVIDERS: PCP Internal Medicine; Visit Provider Internal Medicine ==

== ENCOUNTER 2024-10-11 10:27 | Outpatient (AMB) | payer OTHER, SELFPAY ==
--- NOTE | 2024-10-11 10:27 | A.OFFPC_ITS ---
Intake Visit Reasons: 3 months f/up Allergies crab Allergy (Unknown, Verified 10/11/24 10:27) Hives penicillin V Allergy (Unknown, Verified 10/11/24 10:27) hives Penicillins [PENICILLINS] Allergy (Unknown, Verified 10/11/24 10:27) hives SEASONAL ALLERGIES Allergy (Mild, Uncoded 07/31/24 16:45) RUNNY NOSE Medication List - Last Reconciled 10/11/24 by Brianna Gonzalez MD albuterol sulfate 90 mcg/actuation 2 puffs PO Q6H PRN 30 days amlodipine 5 mg PO DAILY 90 days aspirin (Adult Low Dose Aspirin) 81 mg PO DAILY atorvastatin 40 mg PO BEDTIME [Diapers 3 times a day] docusate sodium 100 mg PO DAILY PRN ferrous sulfate 324 mg PO BIDWM folic acid 1 mg PO DAILY gabapentin 300 mg PO BID 90 days ipratropium-albuterol 0.5 mg-3 mg(2.5 mg base)/3 mL 3 mL inhalation QID levetiracetam 500 mg PO BID 180 days metoprolol tartrate 25 mg PO BID 90 days mirtazapine 30 mg PO BEDTIME 90 days omeprazole 20 mg PO DAILY@0630 [orthotic consult Orthotic consult to right hand as directed] [Orthotic consult orthotic consult to right foot as directed.] polyethylene glycol 3350 17 grams PO DAILY PRN sertraline 50 mg PO DAILY Tobacco use date assessed: 10/11/24 Dental Screening Dental Screen Date: 10/11/24 Did you have a dental visit in the last 12 months?: Yes Did you have a dental problem in the last 6 months where you did not have access to dental care?: No Was dental information given to patient?: Patient has dentist HPI 3 months f/up HPI Details History - The patient is a 59 year old female pr esenting with anemia and respiratory issues. - The patient's anemia has been a persis tent issue, with evidence of inadequate strength and energy levels impacting her mobility. - Currently on oxygen therapy at 3 liter s, and using a nebulizer multiple times daily for respiratory management. Breathing issues present variably, with intermittent episodes of increased severity. - Experiences reduced mobility in the ri ght side, affecting both the arm and leg secondary to Hx of stroke. - Monitors and regulates medication inta ke closely with the use of an organizer for AM and PM medications. with the help of old friend requesting on going PT and OT, which i have ordered labs need to be completed janny Medications - Ferrous sulfate 65 mg (Iron supplement ), indicated for anemia - Nebulizer treatment as needed for resp iratory difficulties and others Problem List - Anemia - Reduced mobility of right upper and lo wer extremities [ Hx of stroke ] - Breathing difficulty due to sever COPD managed by Dr Gonzalez [facility] - Iron deficiency Patient Instructions - Continue with current oxygen therapy a t 3 liters. - Use the nebulizer up to four times a d ay as needed. - Take iron medications with orange juic e and avoid calcium-rich foods or dairy at the time of intake. - Attend the laboratory for blood work b efore next . - Monitor oxygen saturation regularly, a nd ensure it does not drop below typical levels (normally in low 90s). - Schedule a follow-up call next y to go over labs Review of Systems - Respiratory: Reports variable breathin g difficulty, requiring oxygen and nebulizer usage. - Musculoskeletal: Reports mobility issu es affecting the right upper and lower extremities. - Hematologic: Reports ongoing anemia af fecting energy and strength levels. General: No fever no chills ear nose throat: No sore throat no hearing difficulty no ear pain cardiovascular: No syncope, no chest pain, no palpitations gastrointestinal: No nausea vomiting or diarrhea endocrine: No polyuria polydipsia no heat intolerance skin: No new complaints [facility] Medical History Seizure (~11/2021) History of multiple cerebrovascular accidents (CVAs) Hemiparesis affecting right side as late effect of cerebrovascular accident Aphasia History of non-ST elevation myocardial infarction (NSTEMI) (~11/2021) History of acute respiratory distress syndrome (ARDS) (~08/2021) Coronary artery disease Takotsubo cardiomyopathy COPD (chronic obstructive pulmonary disease) Respiratory failure with hypoxia Oxygen dependent Personal history of nicotine dependence Hemoptysis Closed subcapital fracture of femur Cocaine abuse Hypertensive emergency Normocytic anemia History of drug abuse Cocaine abuse Major depression, recurrent Acute CHF (congestive heart failure) Hypercapnic respiratory failure, chronic Asymptomatic carotid artery stenosis with infarction Chronic GERD Environmental allergies Anxiety, generalized Lipid disorder Asthma, moderate Surgical History History of left-sided carotid endarterectomy (~09/2012) History of tonsillectomy and adenoidectomy Family History Father Substance abuse Mother Brain cancer Maternal Grandfather History of heart attack Maternal Grandmother History of heart attack Paternal Grandfather No problems noted. Paternal Grandmother No problems noted. Brother No problems noted. Brother No problems noted. Son No problems noted. Daughter No problems noted. Other Mental health disorder Social History Household Members: None Household Members Other:: daughter Housing: Apartment Do you presently have visiting nurse or other home services: No Unable to assess alcohol history related to: Refusing to respond Alcohol intake: former Patient Tobacco Use Status: Former Tobacco user Tobacco use type: Cigarette Cigarettes Per Day: 2 Years Smoked: COUPLE YEAR AGO PER PT e-Cigarette/Vaping Use: Never Used Second Hand Smoke Exposure: No Advance Directives Date on File: 11/25/21 service: No Current occupational status: disabled Cognitive needs: No Hearing needs: No Vision needs: No Questionnaire Thrive Questionnaire Date Thrive assessed: 07/07/24 AUDIT C Alcohol Use Questionnaire (AUDIT-C) 1. How often do you have a drink containing alcohol?: Never 3. How often do you have six or more drinks on one occasion?: Never Total Score: 0 Score Reviewed/Action Taken: Yes SAGAR-7 AMB Questionnaire SAGAR-7 Date SAGAR - 7 assessed: 10/20/22 Source: Developed by Drs. Hemant Eller, Sue Christensen, Jamey Drummond and colleagues, with an educational mario alberto from [employer]. Physical exam (Primary Care) Tobacco/Smoking Status: Tobacco use Status Tobacco use date assessed 10/11/24 10/11/24 10:28 Patient Tobacco Use Status Former Tobacco user 10/11/24 10:28 Tobacco use type Cigarette 10/11/24 10:28 e-Cigarette/Vaping Use Never Used 10/11/24 10:28 Thrive Assessment: Date of Thrive Assessment Date Thrive assessed 07/07/24 10/11/24 10:28 Telehealth Telehealth Telehealth Platform: [facility] Location of provider rendering services: practice address Location of patient: address on file Patient Identification confirmed using: Name, : Yes Telehealth method: voice only Patient verbally consented to treatment: Yes Patient verbally consented to billing insurance company: Yes Patient informed of any privacy concerns related to visit: Yes Minutes spent on Phone/Video with Pt.: 16 Coding Level of Care Code Tele Est Pt Level 3 (92988) Diagnoses Normocytic anemia D64.9 Moderate malnutrition E44.0 Recurrent major depressive disorder, in partial remission F33.41 Active/Remission status: in partial remission Chronic GERD K21.9 Panlobular emphysema J43.1 COPD type: emphysema Emphysema type: panlobular Oxygen dependent Z99.81 Hemiparesis affecting right side as late effect of cerebrovascular accident I69.351 Seizure R56.9 Assessment & Plan Assessment & Plan (1) Normocytic anemia: Code(s): D64.9 - Anemia, unspecified Category: Medical (2) Moderate malnutrition: Code(s): E44.0 - Moderate protein-calorie malnutrition Category: Medical (3) Major depression, recurrent: Code(s): F33.9 - Major depressive disorder, recurrent, unspecified Category: Medical Qualifiers: Active/Remission status: in partial remission Qualified Code(s): F33.41 - Major depressive disorder, recurrent, in partial remission (4) Chronic GERD: Code(s): K21.9 - Gastro-esophageal reflux disease without esophagitis Category: Medical (5) COPD (chronic obstructive pulmonary disease): Comment: She does have chronic obstructive pulmonary disease secondary to her long-time smoking. It seems to be fairly stable at this time. Code(s): J44.9 - Chronic obstructive pulmonary disease, unspecified Category: Medical Qualifiers: COPD type: emphysema Emphysema type: panlobular Qualified Code(s): J43.1 - Panlobular emphysema (6) Oxygen dependent: Code(s): Z99.81 - Dependence on supplemental oxygen Category: Medical (7) Hemiparesis affecting right side as late effect of cerebrovascular accident: Code(s): I69.351 - Hemiplegia and hemiparesis following cerebral infarction affecting right dominant side Category: Medical (8) Seizure: Code(s): R56.9 - Unspecified convulsions Category: Medical Plan History - Patient is a 59-year-old female, with a history of chronic hypoxic respiratory failure on 3 L of supplemental oxygen, history of CVA with residual right-sided hemiparesis, history of seizure disorder, coronary artery disease, depression, takotsubo cardiomyopathy. - The patient's anemia has been a persistent issue, with evidence of inadequate strength and energy levels impacting her mobility. - Currently on oxygen therapy at 3 liters, and using a nebulizer multiple times daily for respiratory management. Breathing issues present variably, with intermittent episodes of increased severity. - Experiences reduced mobility in the right side, affecting both the arm and leg secondary to Hx of stroke. - Monitors and regulates medication intake closely with the use of an organizer for AM and PM medications. with the help of old friend requesting on going PT and OT, which i have ordered labs need to be completed janny Patient Instructions - Continue with current oxygen therapy at 3 liters. - Use the nebulizer up to four times a day as needed. - Take iron medications with orange juice and avoid calcium-rich foods or dairy at the time of intake. - Attend the laboratory for blood work before next . - Monitor oxygen saturation regularly, and ensure it does not drop below typical levels (normally in low 90s). - Schedule a follow-up call next to go over labs Orders: Orders Ferritin Today D64.9 - Anemia, unspecified, E44.0 - Moderate protein-calorie malnutrition, F33.41 - Major depressive disorder, recurrent, in partial remission, I69.351 - Hemiplegia and hemiparesis following cerebral infarction affecting right dominant side, J43.1 - Panlobular emphysema, K21.9 - Gastro- esophageal reflux disease without esophagitis, R56.9 - Unspecified convulsions, Z99.81 - Dependence on supplemental oxygen TSH reflex Free T4 Today D64.9 - Anemia, unspecified, E44.0 - Moderate protein- calorie malnutrition, F33.41 - Major depressive disorder, recurrent, in partial remission, I69.351 - Hemiplegia and hemiparesis following cerebral infarction affecting right dominant side, J43.1 - Panlobular emphysema, K21.9 - Gastro- esophageal reflux disease without esophagitis, R56.9 - Unspecified convulsions, Z99.81 - Dependence on supplemental oxygen Vitamin B12 Today D64.9 - Anemia, unspecified, E44.0 - Moderate protein-calorie malnutrition, F33.41 - Major depressive disorder, recurrent, in partial remission, I69.351 - Hemiplegia and hemiparesis following cerebral infarction affecting right dominant side, J43.1 - Panlobular emphysema, K21.9 - Gastro- esophageal reflux disease without esophagitis, R56.9 - Unspecified convulsions, Z99.81 - Dependence on supplemental oxygen Vitamin D 25-OH (D2 and D3) Today D64.9 - Anemia, unspecified, E44.0 - Moderate protein-calorie malnutrition, F33.41 - Major depressive disorder, recurrent, in partial remission, I69.351 - Hemiplegia and hemiparesis following cerebral i nfarction affecting right dominant side, J43.1 - Panlobular emphysema, K21.9 - Gastro-esophageal reflux disease without esophagitis, R56.9 - Unspecified convulsions, Z99.81 - Dependence on supplemental oxygen Complete Blood Count Auto Diff Today D64.9 - Anemia, unspecified, E44.0 - Moderate protein-calorie malnutrition, F33.41 - Major depressive disorder, recurrent, in partial remission, I69.351 - Hemiplegia and hemiparesis following cerebral infarction affecting right dominant side, J43.1 - Panlobular emphysema, K21.9 - Gastro-esophageal reflux disease without esophagitis, R56.9 - Unspecified convulsions, Z99.81 - Dependence on supplemental oxygen Comprehensive Met. Panel Today D64.9 - Anemia, unspecified, E44.0 - Moderate protein-calorie malnutrition, F33.41 - Major depressive disorder, recurrent, in partial remission, I69.351 - Hemiplegia and hemiparesis following cerebral infarction affecting right dominant side, J43.1 - Panlobular emphysema, K21.9 - Gastro-esophageal reflux disease without esophagitis, R56.9 - Unspecified convulsions, Z99.81 - Dependence on supplemental oxygen IRON PROFILE Today D64.9 - Anemia, unspecified, E44.0 - Moderate protein- calorie malnutrition, F33.41 - Major depressive disorder, recurrent, in partial remission, I69.351 - Hemiplegia and hemiparesis following cerebral infarction affecting right dominant side, J43.1 - Panlobular emphysema, K21.9 - Gastro- esophageal reflux disease without esophagitis, R56.9 - Unspecified convulsions, Z99.81 - Dependence on supplemental oxygen Referrals [facility] Referral I69.351 - Hemiplegia and hemiparesis following cerebral infarction affecting right dominant side Medications: Changed From ferrous sulfate 324 mg PO BIDWM 60 tabs 0RF To ferrous sulfate 324 mg PO BID 90 days 180 tabs 0RF
--- OUTSIDE RECORDS SUMMARY | 2024-10-11 11:58 | XMS_ITS | Data Portability ---
Author Organization [facility] [email or web address] [facility], Main Office Address [address] [place] [address] Care Team Providers Care Rfid Engineer Name Role Phone [facility] OTHER Assessment No assessment recorded. Plan of Treatment Reminders Order Date Submit Date Provider Last Modified By Organization Details Last Modified Time Details Appointments None record ed. Lab None record ed. Referral None record ed. Procedures None record ed. Surgeries None record ed. Imaging None record ed. Medication Orders None record ed. Patient TargetsNo targets recorded. Patient InstructionsNo instructions recorded. Reason for Referral None Reported. Problems Name Problem SNOMED Code Status Onset Date Resolution Date Notes Provider Name and Address Organization Details Recorded Time Falls 746781155 Active 2023 CEDRICK DONOHUE, BI ANALYST [address] , [address], [place], [address], [facility] 4 08:31:53 Cerebrova scular accident 088761875 Active 2023 right side weakness CEDRICK DONOHUE, BI ANALYST [address], [address], [place], [address], [facility] 4 08:32:49 Chronic obstructi ve pulmonary disease 61763907 Active 2023 CEDRICK DONOHUE, BI ANALYST [address], [address], [place], [address], [facility] 4 08:32:18 Wound of skin 707851595 Active 2023 skin tear right elbow CEDRICK DONOHUE, BI ANALYST [address], [address], [place], [address], [facility] 4 08:33:14 Nicotine dependenc e 10106925 Active 2023 CEDRICK DONOHUE NP [address], [address], [place], [address], [facility] Present [facility] [place] 4 08:38:47 Asthma 558465930 Active 2023 CEDRICK DONOHUE NP [address], [address], [place], [address], [facility] Present [facility] 4 08:38:52 Anemia 431730909 Active 2023 CEDRICK DONOHUE NP [address], [address], [place], [address], [facility] [employer] [facility] 4 08:38:57 Mixed anxiety and depressiv e disorder 013841840 Active 2023 CEDRICK DONOHUE NP [address], [address], [place], [address], [facility] [email or web address] 4 08:39:11 Essential hypertens ion 77483738 Active 2023 CEDRICK DONOHUE NP [address], [address], [place], [address], [facility] [email or web address] 4 08:45:28 Pain in right hip joint 280306202573 102 Active 2023 CEDRICK DONOHUE NP [address], [address], [place], [address], [facility] [email or web address] 4 08:46:02 Seizure disorder 063039254 Active 2023 CEDRICK DONOHUE NP [address], [address], [place], [address], [facility] [email or web address] 4 08:49:03 Gastroeso phageal reflux disease without esophagit is 180419476 Active 2023 CEDRICK DONOHUE NP [address], [address], [place], [address], [facility] 4 08:49:54 Problem Notes None recorded. Medical Equipment None Reported. Allergies Allergen ID Allergen Name Allergen Category Reaction Reaction Severity Criticality Documentation Date Start Date Code Code System Note Provider Name and Address Organization Details Recorded Time [id number] 9039687e6 2824e crab allergeni c extract food Not available Not available Not available 10/13/2023 45067 0 RxNorm Not Available Not Available Not Available [id number] 508037899 3240699q7 2824e Product containin g penicilli n and antibioti c (product) medicatio n Not available Not available Not available 10/13/2023 93900 05 SNOMED Not Available Not Available Not Available Medications Not known to be on any medication Vitals Date Recorded Heart rate Respiratory rate Body temperature Oxygen saturation Oxygen saturation in Arterial blood by Pulse oximetry Inhaled oxygen flow rate Systolic blood pressure Diastolic blood pressure Provider Name and Address Organization Details Last Updated DateTime 87 /min 16 /min 97.5 [degF] 94 % 94 % 2 L/min 121 mm[Hg] 58 mm[Hg] CEDRICK DONOHUE NP [address], [address], [place], [address], [facility] 4 08:30:44 Date Recorded Systolic blood pressure Diastolic blood pressure Provider Name and Address Organization Details Last Updated DateTime 10/15/2023 130 mm[Hg] 79 mm[Hg] Orestes Quezada MD [address], [address], [place], [address], [facility] 10/15/2023 12:04:01 Social History Question Answer Notes LastModified by Organizat ion Details LastModified Time Tobacco Smoking Status Current Some Day Smoker CEDRICK DONOHUE NP [address], [address], [place], [address], [facility] 10/13/2023 08:35:33 Do You Have An Advance Directive? Yes Information not available 10/13/2023 What Is Your Code Status? Full Code Information not available 10/13/2023 Which Illicit Or Recreational Drugs Have You Used? Hx Cocaine Information not available 10/13/2023 What Was The Date Of Your Most Recent Tobacco Screening? 10/13/2023 Information not available 10/13/2023 Do You Use Any Illicit Or Recreational Drugs? Yes Information not available 10/13/2023 Has Tobacco Cessation Counseling Been Provided? Yes Declined Information not available 10/13/2023 On What Date Was Tobacco Cessation Counseling Provided? 10/13/2023 Information not available 10/13/2023 How Many Years Have You Smoked Tobacco? 35 Information not available 10/13/2023 Do You Or Have You Ever Used Any Other Forms Of Tobacco Or Nicotine? No Information not available 10/13/2023 Sex: Unknown Functional Status None recorded. Mental Status None recorded. Family History Nothing Reported Notes:father-substance abuse , mother-brain cancer- maternal grandmother-cardiac, Medical History No medical history recorded. Gynecological HistoryNo gynecological history recorded. Obstetrics History GPAL:G 0 P 0 0 0 0 Immunizations Vaccine Type Date Status Note Provider Nam e and Address Organization Details Recorded Time Influenza, adjuvanted, quadrivalent, PF 2 completed Zeny lobato, [facility] 12/01/2023 11:56:47 pneumococcal polysaccharide PPV23 9 completed Zeny lobato, [facility] 12/01/2023 11:56:57 Past Encounters Encounter ID Performer Location Encounter Start Date Encounter Closed Date Diagnosis/Indication Diagnosis SNOMED-CT Code Diagnosis ICD10 Code Diagnosis Note [id number] CEDRICK DONOHUE NP [facility] on [address] [place] [address] 10/13/2023 08:16:39 10/17/2023 13:39:12 Falls 521320004 R29.6 PT OT eval and treatfall precaution sfrequent safety checks Cerebrovas cular accident 552297321 I63.9 lovenox 40 mg sub cut until more activeasa 81 mg dailyatorv astatin 40 mg dailymonit or neuros Wound of skin 660498616 T14.8XXA wound consultmon itor for any infection Chronic ob structive pulmonary disease 53345975 J44.9 albuterol inhaler q6hr prnduoneb tid prnmonitor resp status Asthma 879879680 J45.90 9 albuterol inhaler q6hr prnduoneb tid prnmonitor resp status Mixed anxi ety and depressive disorder 319800411 F41.8 remeron 30 mg hszoloft 25 mg dailypsych prn Nicotine dependence 5629 4008 F17.200 offer cessation Anemia 567940455 D64.9 vit c 250 mg bidiron 324 mg dailyfolic acid 1 mg dailymonit or labs Essential hypertension 55750657 I10 amlodipine 5 mg dailymetop rolol 25 mg bidmonitor bp Pain in ri ght hip joint 3485422663 96083 M25.551 tylenol prntramado l 25 mg q6hr prn Seizure disorder 0063034 02 G40.909 keppra 500 mg bidmonitor neuros Gastroesop hageal reflux disease without esophagitis 833100093 K21.9 omeprazole 20 mg daily [id number] Orestes Quezada MD [facility] on [address] [place] [address] 10/15/2023 12:03:28 10/17/2023 14:05:43 Closed fracture of hip 571113452 S72.091D right impacted subcapital fx right proximal femurEval by ortho and underwent closed reduction and percutaneo us pinningfol low ortho recs and update with concernsPT OT eval and treatloven ox for DVT prophylaxi sincision site cleanscrip ts written for oxycodone 5 mg q 6 prn pain with second E-kit script writtenupd ate ortho with concern Falls 889547865 R29.6 PT OT eval and treatsee abovemonit or fall risk Cerebrovas cular accident 465349447 I63.89 hx of CVA with residual right sided hemiparesi scurrently on lovenox for DVT prophylaxi smaintaine d onlipitor 40 mg qdsee above Chronic ob structive pulmonary disease 57128838 J41.1 on O2 3 lpm at baselinemo nitor respirator y status on current medspulmon ology eval prn Mixed anxi ety and depressive disorder 909088251 F41.8 remeron 30 mg hszoloft 25 mg qdcontinue dmonitor moodpsych prn Nicotine dependence 5629 4008 F17.210 hx of quit priornow on O2 for COPD Anemia 767378485 D50.0 multifacto rial anemia required 1 unit pRBC post opnow on iron supplement monitor cbc and need for further transfusio niron studies prn Essential hypertension 41312538 I10 norvasc 5 mg qdmetoprol ol 25 mg bidmonitor bp Seizure disorder 7651641 02 G40.909 G40.89 carrying dxmaintain ed onkeppra 500 mg bidmonitor for activity Gastroesop hageal reflux disease without esophagitis 201497178 K21.9 omeprazole 20 mg qdmonitor for sx relief Coronary arteriosclerosis 04871780 I25.10 with hx of takotsubo cardiomyop athylipito r 40 mg qdASA 81 mg qdmetoprol ol 25 mg bidmonitor for sxcards eval prn Standard c hest X-ray abnormal 743514789 R93.89 stable opacity to repeat imaging in 3 months Health Concerns Section Related Observation LastModified by Organization Detai ls LastModified Time None Recorded Concern Status LastModified by Organization Details LastModified Time None Recorded Advance Directives Directive Y: Payers Encounter Date Sequence Insurance Name Policy Number Policy Duran Covered Member ID Duran Member ID Guarantor Name 10/13/2023 1 [facility] (MEDICAID REPLACEMENT - HMO) FAUSTOHERNDON Oxana Bragg [id number] Oxana Bragg 10/15/2023 1 [facility] (MEDICAID REPLACEMENT - HMO) FAUSTOHERNDON Oxana Bragg [id number] Oxana Bragg Notes Date Note Type Note Provider Name and Address Organization Details Recorded Time 10/13/2023 text/html seen today for i nitial intake visit,58 yof admitted to for rehab after presenting to the hospital 09/24 after a fall at home, she has been med non compliant, she fell twice and sustained a skin tear on her right elbow that the daughter tried to repair with duct tape. pt complained of right hip pain, xrays negative for fracture. CAOx3 vague during exam, she is complaining of right hip pain, good cms to right leg noted, ordered some tramadol for her. CEDRICK DONOHUE, MONSTER [address], [address], [place], [address], [facility] - Present [facility] 10/13/2023 09:02:01 10/15/2023 text/html Patient is a 58 yo female admit from hospital presenting after fall with right hip pain. Patient with hx CVA 2015 with residual right sided hemiparesis. Imaging positive for right impacted subcapital fx right proximal femur. Eval by ortho and underwent closed reduction and percutaneous pinning. Started on lovenox for DVT prophylaxis, complicated by epistaxis and mild hemoptysis. Imaging showed RLL opacity stable with rec that imaging be repeated in 3 months. Post op anemia required transfusion with 1 unit pRBC and started on iron supplement PMH significant forcopd on 3 liters O2 at baselinehtncarotid artery stenosishx CVA with residual right sided hemiparesisseizure dxcadtakotsubo cardiomyopathygerd admit to facility for continued care and therapy Orestes Quezada MD [address] [place] [address], [address], [place], [address], [facility] - [facility] 10/15/2023 13:32:26 OBGyn Episode No OBEpisode recorded.
--- OUTSIDE RECORDS SUMMARY | 2024-10-11 11:58 | XMS_ITS | Data Portability ---
Author Organization [place] [facility] Address [address] [place] [address] Care Team Providers Care Secretary Receptionist Name Role Phone JANNA COOLEY Primary Care Provider Assessment Encounter Date Assessment Date Assessment LastModified by Organization Details LastModified Time 10/30/2019 10/30/2019 Overview/History :Fernando melvin is a 54-year-old female new to [facility]. She has a medical history significant for coronary artery disease, status post silent MS, hypertension, hyperlipidemia, COPD, recent treatment for pneumonia and CVA in the past. She contacted [facility] after noting that her toenails were discolored. There was some drainage or build up around the nail bed, she wash her feet until coming a vinegar solution and this improved. She is concerned for possible fungal infection. Exam: Patient is awake and alert and in no acute distress. Afebrile. Blood pressure was a bit elevated, she reports she is not currently on any antihypertensive at this time. She was noted have discoloration of her right great toe first and 2nd toe, in the nail bed. Palpable pulses bilaterally, no discoloration to either feet. No swelling or tenderness to touch. Lung sounds clear to auscultation, heart rate regular rate and rhythm. DDx considered, but not limited to:Onychomycosis, Presentation consistent with this. Patient had already cleaned around the nail beds were unable to get a sample to send. Also considered trauma though patient denies stubbing her toes or dropping any object on her foot, considered toe fracture,no areas of ecchymoses and patient had good range of motion of all metatarsals. Work up/Results: Plan/Discussion:Wi ll start treatment for fungal infection, she was given prescription for Lamisil topical ointment. She was also given care instructions on how to care for her feet. If this does not resolve with the topical treatment may need to have treatment with oral agent. I did explain this to the patient if not improving to contact [facility] her PCP for reevaluation. Did also discuss the patient's blood pressure was a bit elevated, she reports she had been on blood pressure medication in the past but is not presently. Given her hypertension and history of coronary disease with an MS in the past a beta pedro would likely be a good option for her, would defer this to her primary care physician. In order to obtain further information and compare any laboratory results/values, I have accessed patient records on the [employer] [employer]. This information was pertinent in my medical decision making today. Time On Scene with Patient: 00:25:54 [email or web address] Not available 10/30/2019 18:09:18 Plan of Treatment Reminders Order Date Submit Date Provider Last Modified By Organization Details Last Modified Time Details Appointments None recorded. Lab None recorded. Referral None recorded. Procedures None recorded. Surgeries None recorded. Imaging None recorded. Medication Orders Lamisil AT 1 % topical cream 2019 020 [id number], [address] [place] [address], [id number], 0 13:02:27 Patient TargetsNo targets recorded. Patient Instructions Encounter Date Encounter Id Patient Instructions Last Modified By Organization Details Last Modified Time 10/30/2019 [id number] toenail fungus: care instructions [email or web address] Not available 10/30/2019 13:02:19 WE CAME TO SEE [facility] TODAY FOR CONCERNS OF FUNGAL INFECTION OF YOUR TOES. YOU ARE BEING PRESCRIBED A TOPICAL ANTIFUNGAL FOR THIS. YOU ARE TO APPLY THIS TO CLEAN FEET TWICE DAILY FOR TWO WEEKS. IF THIS IS NOT IMPROVING BY 2 WEEKS PLEASE CONTACT PCP YOU MAY NEED ORAL TREATMENT. Thank you for your visit with [facility] today. You were seen today for treatment of a wound. Please seek immediate medical attention if you develop increased pain, redness, or swelling of your wound. Also, you should be evaluated if the wound becomes warm to the touch, or if there is a cloudy, yellow-brown discharge from the wound. There is always the possibility of a hidden tendon injury or foreign object in the wound. If you have problems moving your arm or leg, or if you see red streaks up the arm or leg, seek immediate medical attention. If you develop any new or worsening symptoms and need after hours care, please go to nearest ER and/or call 911. If you have additional concerns or develop a change in your condition between 8am-10pm, please call [facility] at [phone] to help navigate your care. [email or web address] Not available 10/30/2019 13:01:29 Reason for Referral None Reported. Medical Equipment None Reported. Allergies Allergen ID Allergen Name Allergen Category Reaction Reaction Severity Criticality Documentation Date Start Date Code Code System Note Provider Name and Address Organization Details Recorded Time 21938 Product containin g penicilli n and antibioti c (product) medicatio n Not available Not available Not available 10/30/2019 47442 05 SNOMED BOO LIMA NP [address] [facility] [place], [address], [place] [facility] 0 12:40:59 Medications Name Sig Start Date Stop Date Status Note LastModified by Organization Details LastModified Time clotrimazol e 10 mg fallon active Not Available Not Available Not Available nicotine 14 mg/24 hr daily transdermal patch 10/30 completed Not Available Not Available Not Available ipratropium 0.5 mg-albutero l 3 mg (2.5 mg base)/3 mL nebulizatio n soln active Not Available Not Available Not Available cetirizine 10 mg tablet active Not Available Not Available Not Available azithromyci n 250 mg tablet active Not Available Not Available Not Available gabapentin 400 mg capsule active Not Available Not Available Not Available aspirin 81 mg tablet,jailene yed release active Not Available Not Available Not Available simvastatin 40 mg tablet active Not Available Not Available Not Available Lamisil AT 1 % topical cream APPLY TO THE AFFECTED AND SURROUNDI NG AREAS OF SKIN BY TOPICAL ROUTE ONCE DAILY 2019 active Not Available Not Available Not Avai lable baclofen 10 mg tablet 10/30 completed Not Available Not Available Not Available mirtazapine 30 mg tablet active Not Available Not Available Not Available sertraline 25 mg tablet active Not Available Not Available Not Available omeprazole 20 mg capsule,del ayed release 10/30 completed Not Available Not Available Not Available mirtazapine 15 mg tablet active Not Available Not Available Not Available albuterol sulfate HFA 90 mcg/actuati on aerosol inhaler active Not Available Not Available Not Available Botox 100 unit injection 10/30 completed Not Available Not Available Not Available fluticasone 232 mcg-salmete rol 14 mcg/actuati on breath activated powdr active Not Available Not Available Not Available Vitals Date Recorded Respiratory rate Heart rate Body temperature Oxygen saturation Oxygen saturation in Arterial blood by Pulse oximetry Systolic blood pressure Diastolic blood pressure Provider Name and Address Organization Details Last Updated DateTime 0 20 /min 92 /min 98.1 [degF] 93 % 93 % 166 mm[Hg] 76 mm[Hg] Not Available [facility] 0 12:44:40 Social History None recorded. Functional Status None recorded. Mental Status None recorded. Family History Relationship Description Onset Age of this Age Resolved Age Notes LastModified by Organization Details LastModified Time Mother Hypertensive disorder [email or web address] Not available 12:45:53 Medical History Condition Response Diabetes N Coronary Artery Disease Y Cancer N Stroke Y Asthma Y COPD Y Depression Y High Cholesterol Y Pulmonary Embolism N Hypertension Y Kidney Disease N Gynecological HistoryNo gynecological history recorded. Obstetrics History GPAL:G 0 P 0 0 0 0 Past Encounters Encounter ID Performer Location Encounter Start Date Encounter Closed Date Diagnosis/Indication Diagnosis SNOMED-CT Code Diagnosis ICD10 Code Diagnosis Note [id number] BOO LIMA NP [facility] [address] [place] [address] 10/30/2019 12:39:31 10/31/2019 12:21:43 Onychomycosis of toenails 057033062 B35.1 Essential hypertension 74845496 I10 Health Concerns Section Related Observation LastModified by Organization Detai ls LastModified Time None Recorded Concern Status LastModified by Organization Details LastModified Time None Recorded Advance Directives Directive None Recorded Payers Encounter Date Sequence Insurance Name Policy Number Policy Duran Covered Member ID Duran Member ID Guarantor Name 10/30/2019 1 [facility]MEDICAID H[facility]) NAVYA Bragg [id number] Notes Date Note Type Note Provider Name and Address Organization Details Recorded Time 10/30/2019 text/html This is a 54-year-old female unknown [facility] with a medical history significant for asthma, COPD, coronary artery disease status post silent MS, depression, hypolipidemia, hypertension and stroke. She contacted [facility] as she noticed that she had discolored toenails incidentally when washing her feet. She denied any trauma to her feet, denied any pain. She reported there was some drainage/discharge at the corners of her toenails, she washed her feet and then soaked them in vinegar solution and no longer has this. She denied any recent sick contacts no fevers or chills. BOO LIMA NP [address] [place] [address], [place], [address], [place] - [facility] 10/30/2019 18:09:22 OBGyn Episode No OBEpisode recorded.
== END 2024-10-11 11:25 | disposition home or self-care (01) ==
PROVIDERS: PCP Internal Medicine; Visit Provider Internal Medicine
DX: E44.0 Moderate protein-calorie malnutrition (principal); F33.41 Major depressive disorder, recurrent, in partial remission; J43.1 Panlobular emphysema; I69.351 Hemiplegia and hemiparesis following cerebral infarction affecting right dominant side; R56.9 Unspecified convulsions; D64.9 Anemia, unspecified; K21.9 Gastro-esophageal reflux disease without esophagitis; Z99.81 Dependence on supplemental oxygen

== ENCOUNTER 2024-10-18 10:29 | Outpatient (AMB) | payer OTHER, SELFPAY ==
--- NOTE | 2024-10-18 10:26 | A.OFFPC_ITS ---
Intake Visit Reasons: 1Wk F/u Allergies crab Allergy (Unknown, Verified 10/18/24 10:30) Hives penicillin V Allergy (Unknown, Verified 10/18/24 10:30) hives Penicillins [PENICILLINS] Allergy (Unknown, Verified 10/18/24 10:30) hives SEASONAL ALLERGIES Allergy (Mild, Uncoded 07/31/24 16:45) RUNNY NOSE Medication List - Last Reconciled 10/18/24 by Brianna Gonzalez MD albuterol sulfate 90 mcg/actuation 2 puffs PO Q6H PRN 30 days amlodipine 5 mg PO DAILY 90 days aspirin (Adult Low Dose Aspirin) 81 mg PO DAILY atorvastatin 40 mg PO BEDTIME [Diapers 3 times a day] docusate sodium 100 mg PO DAILY PRN ferrous sulfate 324 mg PO BID 90 days folic acid 1 mg PO DAILY gabapentin 300 mg PO BID 90 days ipratropium-albuterol 0.5 mg-3 mg(2.5 mg base)/3 mL 3 mL inhalation QID levetiracetam 500 mg PO BID 180 days metoprolol tartrate 25 mg PO BID 90 days mirtazapine 30 mg PO BEDTIME 90 days omeprazole 20 mg PO DAILY@0630 [orthotic consult Orthotic consult to right hand as directed] [Orthotic consult orthotic consult to right foot as directed.] polyethylene glycol 3350 17 grams PO DAILY PRN sertraline 50 mg PO DAILY Tobacco use date assessed: 10/18/24 Dental Screening Dental Screen Date: 10/18/24 Did you have a dental visit in the last 12 months?: Yes Did you have a dental problem in the last 6 months where you did not have access to dental care?: No Was dental information given to patient?: Patient has dentist HPI 1Wk F/u HPI Details - The patient is a 59 year old female pr esenting with respiratory distress and decreased appetite. - She has been experiencing trouble ramon thing in the evenings for several days. - Reports a marked decrease in appetite over the past week and a half. - She is dependent on oxygen and reports congestion, though without fever or cough. - Recent COVID-19 tests have been negati ve. - The patient has a history of stroke an d takes necessary precautions by wearing a mask during visits. - An appointment is scheduled with a [facility] on March 4th. - suppressed appetite with H/o stroke, s ometimes difficulty swollowing , we will try to get Boost approved for the patient - due for labs as well Problem List - Respiratory distress - Decreased appetite - Diarrhea - Oxygen dependency - History of stroke Patient Instructions - Start the prescribed antibiotic as dis cussed. - Ensure the patient drinks fluids with electrolytes like Gatorade or Pedialyte, if having diarrhea avoiding acidic drinks such as orange juice. - Monitor the symptoms, and if they wors en, go to ER - Proceed with the planned laboratory wo rk-up and blood tests as soon as possible. Review of Systems - Respiratory: Reports congestion; Denie s fever or cough. - General: No fever no chills - Neurological: No headaches no dizziness - Ear nose throat: No sore throat no hearing difficulty no ear pain - Cardiovascular: No syncope, no chest pain, no palpitations - Gastrointestinal: No nausea vomiting - Endocrine: No polyuria polydipsia no heat intolerance - Genitourinary: No dysuria , no blood in urine [facility] Medical History Seizure (~11/2021) History of multiple cerebrovascular accidents (CVAs) Hemiparesis affecting right side as late effect of cerebrovascular accident Aphasia History of non-ST elevation myocardial infarction (NSTEMI) (~11/2021) History of acute respiratory distress syndrome (ARDS) (~08/2021) Coronary artery disease Takotsubo cardiomyopathy COPD (chronic obstructive pulmonary disease) Respiratory failure with hypoxia Oxygen dependent Personal history of nicotine dependence Hemoptysis Closed subcapital fracture of femur Cocaine abuse Hypertensive emergency Normocytic anemia History of drug abuse Cocaine abuse Major depression, recurrent Acute CHF (congestive heart failure) Hypercapnic respiratory failure, chronic Asymptomatic carotid artery stenosis with infarction Chronic GERD Environmental allergies Anxiety, generalized Lipid disorder Asthma, moderate Surgical History History of left-sided carotid endarterectomy (~09/2012) History of tonsillectomy and adenoidectomy Family History Father Substance abuse Mother Brain cancer Maternal Grandfather History of heart attack Maternal Grandmother History of heart attack Paternal Grandfather No problems noted. Paternal Grandmother No problems noted. Brother No problems noted. Brother No problems noted. Son No problems noted. Daughter No problems noted. Other Mental health disorder Social History Household Members: None Household Members Other:: daughter Housing: Apartment Do you presently have visiting nurse or other home services: No Unable to assess alcohol history related to: Refusing to respond Alcohol intake: former Patient Tobacco Use Status: Former Tobacco user Tobacco use type: Cigarette Cigarettes Per Day: 2 Years Smoked: COUPLE YEAR AGO PER PT Packs per year/per ci.00 e-Cigarette/Vaping Use: Never Used Second Hand Smoke Exposure: No Advance Directives Date on File: 11/25/21 service: No Current occupational status: disabled Cognitive needs: No Hearing needs: No Vision needs: No Questionnaire Thrive Questionnaire Date Thrive assessed: 07/07/24 I am a: Patient What is your living situation today?: I have a steady place to live Within the past 12 months, did the food you bought not last and you didn't have the money to get more?: Sometimes True Within the past 12 months, did you worry whether your food would run out before you got money to buy more?: Sometimes True Do you have trouble paying for medicines?: No Do you have trouble getting transportation to medical appointments?: I choose not to answer this question Do you have trouble paying your heating and electricity bill?: No Do you have trouble taking care of your child, family member or friend?: No Do you have trouble with day-to-day activities such as bathing, preparing meals, shopping, managing finances, etc.?: Yes Are you currently unemployed and looking for a job?: I choose not to answer this question Are you interested in more education?: No Currently or been in a relationship where the following occur: No concerns reported THRIVE Score: 2 AUDIT C Alcohol Use Questionnaire (AUDIT-C) 1. How often do you have a drink containing alcohol?: Monthly or less 2. How many drinks containing alcohol do you have on a typical day when you are drinking?: 1 or 2 3. How often do you have six or more drinks on one occasion?: Never Total Score: 1 Score Reviewed/Action Taken: Yes SAGAR-7 AMB Questionnaire SAGAR-7 Date SAGAR - 7 assessed: 10/20/22 Source: Developed by Drs. Hemant Eller, Sue Christensen, Jamey Drummond and colleagues, with an educational mario alberto from [employer]. Physical exam (Primary Care) Tobacco/Smoking Status: Tobacco use Status Tobacco use date assessed 10/18/24 10/18/24 10:30 Patient Tobacco Use Status Former Tobacco user 10/18/24 10:27 Tobacco use type Cigarette 10/18/24 10:27 e-Cigarette/Vaping Use Never Used 10/18/24 10:27 Thrive Assessment: Date of Thrive Assessment Date Thrive assessed 07/07/24 10/18/24 10:27 Currently or been in a relationship where the following occur: No concerns reported Telehealth Telehealth Telehealth Platform: [employer] Location of provider rendering services: practice address Location of patient: address on file Patient Identification confirmed using: Name, : Yes Telehealth method: voice only Patient verbally consented to treatment: Yes Patient verbally consented to billing insurance company: Yes Patient informed of any privacy concerns related to visit: Yes Minutes spent on Phone/Video with Pt.: 14 Coding Level of Care Code Tele Est Pt Level 3 (56863) Diagnoses Chest congestion R09.89 Lack of appetite R63.0 Panlobular emphysema J43.1 COPD type: emphysema Emphysema type: panlobular Oxygen dependent Z99.81 Failure to thrive in adult R62.7 History of multiple cerebrovascular accidents (CVAs) Z86.73 Assessment & Plan Assessment & Plan (1) Chest congestion: Code(s): R09.89 - Other specified symptoms and signs involving the circulatory and respiratory systems Category: Medical (2) Lack of appetite: Code(s): R63.0 - Anorexia Category: Medical (3) COPD (chronic obstructive pulmonary disease): Comment: She does have chronic obstructive pulmonary disease secondary to her long-time smoking. It seems to be fairly stable at this time. Code(s): J44.9 - Chronic obstructive pulmonary disease, unspecified Category: Medical Qualifiers: COPD type: emphysema Emphysema type: panlobular Qualified Code(s): J43.1 - Panlobular emphysema (4) Oxygen dependent: Code(s): Z99.81 - Dependence on supplemental oxygen Category: Medical (5) Failure to thrive in adult: Code(s): R62.7 - Adult failure to thrive Category: Medical (6) History of multiple cerebrovascular accidents (CVAs): Comment: (TIA 11/2011; CVA/left hemiparesis 01/2013 - resolved;b/l L>R [place] infarcts 04/2016, 2023 stroke) Code(s): Z86.73 - Personal history of transient ischemic attack (TIA), and cerebral infarction without residual deficits Category: Medical Plan - The patient is a 59 year old female presenting with respiratory distress and decreased appetite. - She has been experiencing trouble breathing in the evenings for several days. - Reports a marked decrease in appetite over the past week and a half. - She is dependent on oxygen and reports congestion, though without fever or cough. - Recent COVID-19 tests have been negative. - The patient has a history of stroke and takes necessary precautions by wearing a mask during visits. - An appointment is scheduled with a lung specialist on November 13. - suppressed appetite with H/o stroke, sometimes difficulty swollowing , we will try to get Boost approved for the patient - due for labs as well Problem List - Respiratory distress - Decreased appetite - Diarrhea - Oxygen dependency - History of stroke Patient Instructions - Start the prescribed antibiotic as discussed. - Ensure the patient drinks fluids with electrolytes like Gatorade or Pedialyte, if having diarrhea avoiding acidic drinks such as orange juice. - Monitor the symptoms, and if they worsen, go to ER - Proceed with the planned laboratory work-up and blood tests as soon as possible. Medications: New azithromycin Take 2 tablets today then 1 daily 250 mg PO ONCE 6 tabs 0RF 5 days J06.9 - Acute upper respiratory infection, unspecified
--- OUTSIDE RECORDS SUMMARY | 2024-10-18 10:30 | XMS_ITS | Encounter Summary ---
Author Organization [facility] Address [address] [place] [address] Care Team Providers Care Tar Kettle Runner Name Role Phone Chasity Arzate MD Primary Care Provider Odell Rust MD Primary Care Provider [phone] Jim Robin Primary Care Provider Unavailabl e Reason for Visit * Reason Onset Date Comments Appointment-Internal Referral 02/05/2015 Encounter Details Date Type Department Care Team Description 02/05/2015 Telephone Cardiology - [address] [address] Chasity Arzate MD Appointment-Internal Referral Social History Tobacco Use Types Packs/Day Years Used Date Smoking Tobacco: Former Cigarettes 0.3 25 Smokeless Tobacco: Current Comments:started smoking at age 25 Alcohol Use Standard Drinks/Week Comments Not Asked 0 (1 standard drink = 0.6 oz pur e alcohol) Sex Assigned at Date Recorded Not on file documented as of this encounter Miscellaneous Notes * Telephone Encounter - Desi Wise - 02/05/2015 4:19 PM EDT Oxana Bragg has not responded to the telephone calls that were made on 01/22/15 and 01/24/15 as well as the letter that was sent on 01/27/15 to schedule a consultation; therefore we are removing the referral from our Referrals Report. Please note that this must be reordered if required in the future. documented in this encounter Plan of Treatment Not on file documented as of this encounter Visit Diagnoses Not on filedocumented in this encounter Care Teams Tar Kettle Runner Relationship Specialty Start Date End Date Chasity Arzate MD PCP - General Internal Medicine 09/18/14 06/30/15 Odell Kitchen MD [address] [place] [id number] PCP - General Internal Medicine 07/01/15 06/22/16 Jim Robin [address] [place] [id number] PCP - General Internal Medicine 06/23/16 documented as of this encounter
--- OUTSIDE RECORDS SUMMARY | 2024-10-18 10:30 | XMS_ITS | Clinical Summary ---
Author Organization [facility] Address [address] [place] [address] Care Team Providers Care Waterworks Employee Name Role Phone Jim Robin Primary Care Provider Unavailabl e Allergies Active Allergy Reactions Severity Noted Date Comments Penicillins Hives/Urticaria 09/19/2014 Seasonal 10/03/2014 Runny nose, congestion, itchy eyes Medications Medication Sig Dispensed Refills Start Date End Date Status aspirin 81 MG EC tablet Take 81 mg by mouth daily. 0 Active ALBUTEROL SULFATE (PROAIR HFA) 108 (90 BASE) MCG/ACT Aero Soln Inhale 2 Puffs into the lungs every 4 hours as needed for Cough or Wheezing. 1 Inhaler 5 12/23/2014 Active divalproex (DEPAKOTE) 500 MG EC tablet Take 1 Tab by mouth at bedtime. 30 Tab 0 01/08/2015 Active omeprazole (PRILOSEC) 20 MG capsule Take 1 Cap by mouth daily. 30 Cap 5 01/28/2015 Active Nutritional Supplements (BOOST HIGH PROTEIN) Liquid Take 1 Each by mouth 2 times daily. Chocolate 60 Can 2 02/26/2015 Active mirtazapine (REMERON) 15 MG tablet Take 1 Tab by mouth at bedtime. 30 Tab 5 04/02/2015 Active paroxetine (PAXIL) 20 MG tablet Take 1 Tab by mouth every morning. 30 Tab 5 04/02/2015 Active warfarin (COUMADIN) 5 MG tablet Take 1-1.5 Tabs by mouth See Admin Instructions. May cause heavy bleeding. Take at same time every day. Do not change dietary habits. 135 Tab 5 04/14/2015 Active fluticasone (FLOVENT HFA) 110 MCG/ACT inhaler Inhale 1 Puff into the lungs 2 times daily. 1 Inhaler 5 04/14/2015 Active oxycodone (ROXICODONE) 5 MG immediate release tabletIndications:Jeffry ateral lumbar radiculopathy,Cervica l radiculopathy Take 1 tablet every 6 hours as needed for pain 112 Tab 0 05/30/2015 Active lorazepam (ATIVAN) 0.5 MG tabletIndications:Anx iety Take 1 Tab by mouth every 8 hours as needed for Anxiety. 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 02/11/2015 Overview: Pt needs colposcopy and missed several appointments Complex cyst of left ovary 02/11/2015 Overview: TVUS 11/28/2014 Left ovary appears bilobed adn measures 3.5x 1.4x2.0 cm Contains 2 complicated cyst 1.1x1.3x0.8 cm and 1.1cm --- prior study 2011 contained complex cyst 3.6 cm Late effect of stroke 10/03/2014 Overview: Tingling in the mouth Occasional stuttering Occasional tingling RUE COPD (chronic obstructive pulmonary dise ase) 09/19/2014 Cervical radiculopathy 09/19/2014 Peripheral neuropathy 09/19/2014 History of CVA (cerebrovascular accident ) 09/19/2014 Overview: Mild right sided residual Insomnia 09/19/2014 Anxiety 09/19/2014 Hyperlipidemia 09/19/2014 Carotid stenosis 09/19/2014 Overview: Unsuccessful 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 In January 2013 was found to have 90% GUCCI stenosis, pt was told not amenable to surgery Diaphoresis 09/19/2014 Overview: Since 2010 Lumbar radiculopathy 09/19/2014 Family History Medical History Relation Name Comments Glaucoma Mother Blindness Negative Hx Cataract Negative Hx Macular Degeneration Negative Hx Strabismus Negative Hx Relation Name Status Comments Mother Social History Tobacco Use Types Packs/Day Years Used Date Smoking Tobacco: Former Cigarettes 0.3 25 Smokeless Tobacco: Current Comments:started smoking at age 25 Alcohol Use Standard Drinks/Week Comments Not Asked 0 (1 standard drink = 0.6 oz pur e alcohol) Sex Assigned at Date Recorded Not on file Last Filed Vital Signs Vital Sign Reading Time Taken Comments Blood Pressure 92/50 04/25/2015 3:12 PM EDT Pulse 88 04/25/2015 3:12 PM EDT Temperature 36.9 ??C (98.4 ??F) 10/03/2014 2:54 PM ES T Respiratory Rate 14 12/10/2014 11:14 AM EDT Oxygen Saturation - - Inhaled Oxygen Concentration - - Weight 43 kg (94 lb 12.8 oz) 04/25/2015 3:12 PM EDT Height 154.9 cm (5' 1 ) 04/25/2015 3:12 PM EDT Body Mass Index 17.91 04/25/2015 3:12 PM EDT Plan of Treatment Health Maintenance Due Date Last Done Comments Covid-19 Vaccine (#1) 04/06/1966 TOBACCO CHECK/ADVISE 1982 DTAP/TDAP/TD (1 - Tdap) 1983 PNEUMOCOCCAL VACCINE FOR HIG H RISK PATIENTS (#1) 1983 BASELINE HEALTH EXAM 40-64 2004 COLON CANCER SCREENING 2014 SHINGLES VACCINE (1 of 2) 2014 MAMMOGRAM 06/06/2015 06/06/2014, 05/14 (External Completion) CERVICAL CANCER SCREENING 12/10/2017 12/10/2014 CHOLESTEROL SCREENING 12/18/2019 12/17/2014 INFLUENZA (#1) 2024 BMI CHECK/ADVISE 09/12/2024 04/02/2015, , 01/28/2015, Additional history exists HEPATITIS C SCREENING Completed 12/17/2014 Care Teams Waterworks Employee Relationship Specialty Start Date End Date Jim Robin PCP - General Internal Medicine 06/23/16
--- OUTSIDE RECORDS SUMMARY | 2024-10-18 10:31 | XMS_ITS | Encounter Summary ---
Author Organization [facility] Address [address] [place] [address] Care Team Providers Care Financial Compliance Officer Name Role Phone Chasity Arzate MD Primary Care Provider Odell Rust MD Primary Care Provider [phone] Jim Robin Primary Care Provider Unavailabl e Encounter Details Date Type Department Care Team Description 12/30/2014 [facility] Medical Records [address] [place] [id number] Vicky Mcbride MD Social History Tobacco Use Types Packs/Day Years Used Date Smoking Tobacco: Former Cigarettes 0.3 25 Smokeless Tobacco: Current Comments:started smoking at age 25 Alcohol Use Standard Drinks/Week Comments Not Asked 0 (1 standard drink = 0.6 oz pur e alcohol) Sex Assigned at Date Recorded Not on file documented as of this encounter Plan of Treatment Not on file documented as of this encounter Visit Diagnoses Not on filedocumented in this encounter Care Teams Financial Compliance Officer Relationship Specialty Start Date End Date Chasity Arzate MD PCP - General Internal Medicine 09/18/14 06/30/15 Odell Kitchen MD [address] [place] [id number] PCP - General Internal Medicine 07/01/15 06/22/16 Jim Robin [address] [place] [id number] PCP - General Internal Medicine 06/23/16 documented as of this encounter
--- OUTSIDE RECORDS SUMMARY | 2024-10-18 10:31 | XMS_ITS | Data Portability ---
Author Organization [facility] Team Apart [facility], Main Office Address [address] [facility] [place] [address] Care Team Providers Care Application Designer Name Role Phone [facility] OTHER Assessment No assessment recorded. 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 CEDRICK DONOHUE, UTILITY SPECIALIST [address] [facility], [address], [place], [address], [facility] 4 08:32:49 Chronic obstructi ve pulmonary disease 14871257 Active 2023 CEDRICK DONOHUE, UTILITY SPECIALIST [address], [address], [place], [address], [facility] 4 08:32:18 Wound of skin 607088862 Active 2023 skin tear right elbow CEDRICK DONOHUE, UTILITY SPECIALIST [address], [address], [place], [address], [facility] 4 08:33:14 Nicotine dependenc e 79869937 Active 2023 CEDRICK DONOHUE NP [address], [address], [place], [address], [facility] [employer] [facility] 4 08:38:47 Asthma 562986318 Active 2023 CEDRICK DONOHUE NP [address], [address], [place], [address], [facility] [employer] [facility] 4 08:38:52 Anemia 349319703 Active 2023 CEDRICK DONOHUE NP [address], [address], [place], [address], [facility] [employer] [facility] 4 08:38:57 Mixed anxiety and depressiv e disorder 930108822 Active 2023 CEDRICK DONOHUE NP [address], [address], [place], [address], [facility] [employer] 4 08:39:11 Essential hypertens ion 26270737 Active 2023 CEDRICK DONOHUE NP [address] [facility], [address], [place], [address], [facility] [employer] 4 08:45:28 Pain in right hip joint 965337213736 102 Active 2023 CEDRICK DONOHUE NP [address] [facility], [address], [place], [address], [facility] 4 08:46:02 Seizure disorder 636897393 Active 2023 CEDRICK DONOHUE NP [address] [facility], [address], [place], [address], [facility] [employer] 4 08:49:03 Gastroeso phageal reflux disease without esophagit is 447955233 Active 2023 CEDRICK DONOHUE NP [address], [address], [place], [address], [facility] 4 08:49:54 Problem Notes None recorded. Medical Equipment None Reported. Allergies Allergen ID Allergen Name Allergen Category Reaction Reaction Severity Criticality Documentation Date Start Date Code Code System Note Provider Name and Address Organization Details Recorded Time 86810 crab allergeni c extract food Not available Not available Not available 10/13/2023 28339 0 RxNorm Not Available Not Available Not Available 57516 Product containin g penicilli n and antibioti c (product) medicatio n Not available Not available Not available 10/13/2023 70589 05 SNOMED Not Available Not Available Not Available Medications Not known to be on any medication Vitals Date Recorded Heart rate Respiratory rate Body temperature Oxygen saturation Oxygen saturation in Arterial blood by Pulse oximetry Inhaled oxygen flow rate Systolic blood pressure Diastolic blood pressure Provider Name and Address Organization Details Last Updated DateTime 4 87 /min 16 /min 97.5 [degF] 94 % 94 % 2 L/min 121 mm[Hg] 58 mm[Hg] CEDRICK DONOHUE NP [address] [facility], [address], [place], [address], [facility] 4 08:30:44 Date Recorded Systolic blood pressure Diastolic blood pressure Provider Name and Address Organization Details Last Updated DateTime 10/15/2023 130 mm[Hg] 79 mm[Hg] Oresets Quezada MD [address] [facility], [address], [place], [address], [facility] 10/15/2023 12:04:01 Social History Question Answer Notes LastModified by Organizat ion Details LastModified Time Tobacco Smoking Status Current Some Day Smoker CEDRICK DONOHUE NP [address] [facility], [address], [place], [address], [facility] 10/13/2023 08:35:33 Do You Have An [...] adjuvanted, quadrivalent, PF 2 completed Zeny lobato, [facility] 12/01/2023 11:56:47 pneumococcal polysaccharide PPV23 9 completed Zeny lobato, [facility] 12/01/2023 11:56:57 Past Encounters Encounter ID Performer Location Encounter Start Date Encounter Closed Date Diagnosis/Indication Diagnosis SNOMED-CT Code Diagnosis ICD10 Code Diagnosis Note [id number] CEDRICK DONOHUE NP [facility] on [address] [place] [address] 10/13/2023 08:16:39 10/17/2023 13:39:12 Falls 397706588 R29.6 PT OT eval and treatfall precaution sfrequent safety checks Cerebrovas cular accident 914584067 I63.9 lovenox 40 mg sub cut until more activeasa 81 mg dailyatorv astatin 40 mg dailymonit or neuros Wound of skin 591296125 T14.8XXA wound consultmon itor for any infection Chronic ob structive pulmonary disease 84195735 J44.9 albuterol inhaler q6hr prnduoneb tid prnmonitor resp status Asthma 999945279 J45.90 9 albuterol inhaler q6hr prnduoneb tid prnmonitor resp status Mixed anxi ety and depressive disorder 540003024 F41.8 remeron 30 mg hszoloft 25 mg dailypsych prn Nicotine dependence 5629 4008 F17.200 offer cessation Anemia 356975711 D64.9 vit c 250 mg bidiron 324 mg dailyfolic acid 1 mg dailymonit or labs Essential hypertension 16253459 I10 amlodipine 5 mg dailymetop rolol 25 mg bidmonitor bp Pain in ri ght hip joint 0745069888 04549 M25.551 tylenol prntramado l 25 mg q6hr prn Seizure disorder 5562833 02 G40.909 keppra 500 mg bidmonitor neuros Gastroesop hageal reflux disease without esophagitis 476035706 K21.9 omeprazole 20 mg daily [id number] Orestes Quezada MD [facility] on [address] [place] [address] 10/15/2023 12:03:28 10/17/2023 14:05:43 Closed fracture of hip 024402967 S72.091D right impacted subcapital fx right proximal femurEval by ortho and underwent closed reduction and percutaneo us pinningfol low ortho recs and update with concernsPT OT eval and treatloven ox for DVT prophylaxi sincision site cleanscrip ts written for oxycodone 5 mg q 6 prn pain with second E-kit script writtenupd ate ortho with concern Falls 579360693 R29.6 PT OT eval and treatsee abovemonit or fall risk Cerebrovas cular accident 649150916 I63.89 hx of CVA with residual right sided hemiparesi scurrently on lovenox for DVT prophylaxi smaintaine d onlipitor 40 mg qdsee above Chronic ob structive pulmonary disease 09279967 J41.1 on O2 3 lpm at baselinemo nitor respirator y status on current medspulmon ology eval prn Mixed anxi ety and depressive disorder 879956937 F41.8 remeron 30 mg hszoloft 25 mg qdcontinue dmonitor moodpsych prn Nicotine dependence 5629 4008 F17.210 hx of quit priornow on O2 for COPD Anemia 518129886 D50.0 multifacto rial anemia required 1 unit pRBC post opnow on iron supplement monitor cbc and need for further transfusio niron studies prn Essential hypertension 56695842 I10 norvasc 5 mg qdmetoprol ol 25 mg bidmonitor bp Seizure disorder 4088979 02 G40.909 G40.89 carrying dxmaintain ed onkeppra 500 mg bidmonitor for activity Gastroesop hageal reflux disease without esophagitis 225314589 K21.9 omeprazole 20 mg qdmonitor for sx relief Coronary arteriosclerosis 66725377 I25.10 with hx of takotsubo cardiomyop athylipito r 40 mg qdASA 81 mg qdmetoprol ol 25 mg bidmonitor for sxcards eval prn Standard c hest X-ray abnormal 900144073 R93.89 stable opacity to repeat imaging in 3 months Health Concerns Section Related Observation LastModified by Organization Detai ls LastModified Time None Recorded Concern Status LastModified by Organization Details LastModified Time None Recorded Advance Directives Directive Y: Payers Encounter Date Sequence Insurance Name Policy Number Policy Duran Covered Member ID Duran Member ID Guarantor Name 10/13/2023 1 [facility] (MEDICAID REPLACEMENT - [place]) [place] Oxana Bragg [id number] Oxana Bragg 10/15/2023 1 [facility] [employer] (MEDICAID REPLACEMENT - HMO) [place] Oxana Bragg [id number] Oxana Bragg Notes Date Note Type Note [...] tramadol for her. CEDRICK DONOHUE, MONSTER [address] [facility], [address], [place], [address], [facility] - [employer] 10/13/2023 09:02:01 10/15/2023 text/html Patient is a [...] continued care and therapy Orestes Quezada MD [address] [facility], [address], [place], [address], [facility] [employer] 10/15/2023 13:32:26 OBGyn Episode No OBEpisode recorded.
--- OUTSIDE RECORDS SUMMARY | 2024-10-18 10:31 | XMS_ITS | Encounter Summary ---
Author Organization [facility] Address [address] [place] [address] Care Team Providers Care Educational Psychology Teacher Name Role Phone Chasity Arzate MD Primary Care Provider Odell Rust MD Primary Care Provider [phone] Jim Robin Primary Care Provider Unavailabl e Reason for Visit * Reason Onset Date Comments Provider Call Back 04/02/2015 Encounter Details Date Type Department Care Team Description 04/02/2015 Telephone Adult Medicine - [place] [address] [place] [address] Chasity Arzate MD Provider Call Back Social History Tobacco Use Types Packs/Day Years Used Date Smoking Tobacco: Former Cigarettes 0.3 25 Smokeless Tobacco: Current Comments:started smoking at age 25 Alcohol Use Standard Drinks/Week Comments Not Asked 0 (1 standard drink = 0.6 oz pur e alcohol) Sex Assigned at Date Recorded Not on file documented as of this encounter Miscellaneous Notes * Telephone Encounter - Esperanza Rg L.P.N. - 04/02/2015 9:56 AM EDT [place] [employer] police did confirm the medication being stolen but she can not give out any police report to anyone. Msg to PCP * Telephone Encounter - Zeenat Bermudez - 04/02/2015 9:40 AM EDT Caller requesting call back from provider: Is the caller the patient? NO If caller is not the patient, what is the callers name? Chasity from [facility] dept. Callers relationship to patient? N/A If person calling is not the patient themselves, is there a verbal release in FYI or permanent comments for this person: NO Reason for call back: Chasity needs to speak to somebody regarding the patient's situation, would not specify. Caller offered to speak with the nurse for assistance: YES Response: Patient unwilling to offer reason for requesting provider to call them documented in this encounter Plan of Treatment Not on file documented as of this encounter Visit Diagnoses Not on filedocumented in this encounter Care Teams Educational Psychology Teacher Relationship Specialty Start Date End Date Chasity Arzate MD PCP - General Internal Medicine 09/18/14 06/30/15 Odell Kitchen MD [address] [place] [id number] PCP - General Internal Medicine 07/01/15 06/22/16 Jim Robin [address] [place] [address] PCP - General Internal Medicine 06/23/16 documented as of this encounter
--- OUTSIDE RECORDS SUMMARY | 2024-10-18 10:31 | XMS_ITS | Encounter Summary ---
Author Organization [facility] Address [address] [place] [address] Care Team Providers Care Packing Inspector Name Role Phone Chasity Arzate MD Primary Care Provider Odell Rust MD Primary Care Provider [phone] Jim Robin Primary Care Provider Unavailabl e Reason for Visit * Reason Onset Date Comments Appointment Cancelled 05/05/2015 Encounter Details Date Type Department Care Team Description 05/05/2015 Telephone Adult Medicine [facility] [address] [place] [address] Chasity Arzate MD Appointment Cancelled Social History Tobacco Use Types Packs/Day Years Used Date Smoking Tobacco: Former Cigarettes 0.3 25 Smokeless Tobacco: Current Comments:started smoking at age 25 Alcohol Use Standard Drinks/Week Comments Not Asked 0 (1 standard drink = 0.6 oz pur e alcohol) Sex Assigned at Date Recorded Not on file documented as of this encounter Miscellaneous Notes * Telephone Encounter - Lashawn Mcdermott L.P.N. - 05/05/2015 4:46 PM EDT Patient called earlier to say she wasn't going to be able to make her appointments today. I called pt back and rescheduled again for 05/08/15. She asked me to let you know she is so sorry. documented in this encounter Plan of Treatment Not on file documented as of this encounter Visit Diagnoses Not on filedocumented in this encounter Care Teams Packing Inspector Relationship Specialty Start Date End Date Chasity Arzate MD PCP - General Internal Medicine 09/18/14 06/30/15 Odell Kitchen MD [address] [place] [address] PCP - General Internal Medicine 07/01/15 06/22/16 Jim Robin [address] [place] [address] PCP - General Internal Medicine 06/23/16 documented as of this encounter
--- OUTSIDE RECORDS SUMMARY | 2024-10-18 10:31 | XMS_ITS | Encounter Summary ---
Author Organization [facility] Address [address] [place] [address] Care Team Providers Care X Ray Equipment Mechanic Name Role Phone Chasity Arzate MD Primary Care Provider Odell Rust MD Primary Care Provider [phone] Jim Robin Primary Care Provider Unavailabl e Encounter Details Date Type Department Care Team Description 2014 Controlled Substance Contract with [facility] Medical Records [address] [place] [address] Abstract, Provider Social History Tobacco Use Types Packs/Day Years Used Date Smoking Tobacco: Every Day Cigarettes 0.3 Smokeless Tobacco: Current Comments:started smoking at age 25 Alcohol Use Standard Drinks/Week Comments Not Asked 0 (1 standard drink = 0.6 oz pur e alcohol) Sex Assigned at Date Recorded Not on file documented as of this encounter Plan of Treatment Not on file documented as of this encounter Visit Diagnoses Not on filedocumented in this encounter Care Teams X Ray Equipment Mechanic Relationship Specialty Start Date End Date Chasity Arzate MD PCP - General Internal Medicine 09/18/14 06/30/15 Odell Kitchen MD [address] [place] [address] PCP - General Internal Medicine 07/01/15 06/22/16 Jim Robin [address] [place] [address] PCP - General Internal Medicine 06/23/16 documented as of this encounter
== END 2024-10-18 10:42 | disposition home or self-care (01) ==
LOC: HO.HMCC 10:29
PROVIDERS: PCP Internal Medicine; Visit Provider Internal Medicine
DX: J43.1 Panlobular emphysema (principal); R09.89 Other specified symptoms and signs involving the circulatory and respiratory systems; R63.0 Anorexia; Z99.81 Dependence on supplemental oxygen; R62.7 Adult failure to thrive; Z86.73 Personal history of transient ischemic attack (TIA), and cerebral infarction without residual deficits

== ENCOUNTER 2024-11-13 12:16 | Outpatient (REF) | payer OTHER, SELFPAY ==
--- OUTSIDE RECORDS SUMMARY | 2024-11-13 15:21 | XMS_ITS | Encounter Summary ---
Author Organization [facility] Address [address] [place] [address] Care Team Providers Care Spindle Sander Name Role Phone Chasity Arzate MD Primary Care Provider Odell Rust MD Primary Care Provider [phone] Jim Robin Primary Care Provider Unavailabl e Encounter Details Date Type Department Care Team Description 12/30/2014 [facility] Medical Records [address] [place] [address] Vicky Mcbride MD Social History Tobacco Use [...] on filedocumented in this encounter Care Teams Spindle Sander Relationship Specialty Start Date End Date Chasity Arzate MD PCP - General Internal Medicine 09/18/14 06/30/15 Odell Kitchen MD [address] [place] [address] PCP - General Internal Medicine 07/01/15 06/22/16 Jim Robin [address] [place] [address] PCP - General Internal Medicine 06/23/16 documented as of this encounter
--- OUTSIDE RECORDS SUMMARY | 2024-11-13 15:21 | XMS_ITS | Encounter Summary ---
Author Organization [facility] Address [address] [place] [address] Care Team Providers Care Flex O Writer Operator Name Role Phone Chasity Arzate MD Primary Care Provider Odell Rust MD Primary Care Provider [phone] Jim Robin Primary Care Provider Unavailabl e Encounter Details Date Type Department Care Team Description 2014 Controlled Substance Contract with [facility] Medical Records [address] [place] [address] Abstract, Provider Social History Tobacco Use Types [...] on filedocumented in this encounter Care Teams Flex O Writer Operator Relationship Specialty Start Date End Date Chasity Arzate MD PCP - General Internal Medicine 09/18/14 06/30/15 Odell Kitchen MD [address] [place] [id number] PCP - General Internal Medicine 07/01/15 06/22/16 Jim Robin [address] [place] [phone] PCP - General Internal Medicine 06/23/16 documented as of this encounter
--- OUTSIDE RECORDS SUMMARY | 2024-11-13 15:21 | XMS_ITS | Encounter Summary ---
Author Organization [facility] Address [address] [place] [address] Care Team Providers Care Journal Entry Audit Clerk Name Role Phone Chasity Arzate MD Primary Care Provider Odell Rust MD Primary Care Provider [phone] Jim Robin Primary Care Provider Unavailabl e Reason for Visit * Reason Onset Date Comments TEST RESULTS 04/14/2015 Encounter Details Date Type Department Care Team Description 04/14/2015 Telephone Adult Medicine B - [place] [address] [place] [address] Chasity Arzate MD TEST RESULTS Social History Tobacco Use Types Packs/Day Years Used Date Smoking Tobacco: Former Cigarettes 0.3 25 Smokeless Tobacco: Current Comments:started smoking at age 25 Alcohol Use Standard Drinks/Week Comments Not Asked 0 (1 standard drink = 0.6 oz pur e alcohol) Sex Assigned at Date Recorded Not on file documented as of this encounter Miscellaneous Notes * Telephone Encounter - Chasity Arzate MD - 04/14/2015 8:36 AM EDT She already had it, on 04/02 I don't know how to delete old orders * Telephone Encounter - Anat JIMENEZ - 04/14/2015 8:23 AM EDT Does this pt need the chest xray from December? If not please delete documented in this encounter Plan of Treatment Not on file documented as of this encounter Visit Diagnoses Not on filedocumented in this encounter Care Teams Journal Entry Audit Clerk Relationship Specialty Start Date End Date Chasity Arzate MD PCP - General Internal Medicine 09/18/14 06/30/15 Odell Kitchen MD [address] [place] [address] PCP - General Internal Medicine 07/01/15 06/22/16 Jim Robin [address] [place] [address] PCP - General Internal Medicine 06/23/16 documented as of this encounter
--- OUTSIDE RECORDS SUMMARY | 2024-11-13 15:21 | XMS_ITS | Clinical Summary ---
Author Organization [facility] Address [address] [place] [address] Care Team Providers Care Auto Refinisher Name Role Phone Jim Robin Primary Care [...] HEPATITIS C SCREENING Completed 12/17/2014 Care Teams Auto Refinisher Relationship Specialty Start Date End Date Jim Robin PCP - General Internal Medicine 06/23/16
--- OUTSIDE RECORDS SUMMARY | 2024-11-13 15:21 | XMS_ITS | Data Portability ---
Author Organization [facility], Main Office Address [address], [address] [place] [address] Care Team Providers Care Digital Forensic Analyst Name Role Phone [facility] OTHER Assessment No assessment recorded. Plan [...] and Address Organization Details Recorded Time Falls [id number] Active 2023 CEDRICK DONOHUE, TOP TRIMMER [address] , [address], [place], [address], [facility] 4 08:31:53 Cerebrova scular accident 103930261 Active 2023 right side weakness CEDRICK DONOHUE, TOP TRIMMER [address], [address], [place], [address], [facility] 4 08:32:49 Chronic obstructi ve pulmonary disease 66593357 Active 2023 CEDRICK DONOHUE, TOP TRIMMER [address], [address], [place], [address], [facility] 4 08:32:18 Wound of skin 706470845 Active 2023 skin tear right elbow CEDRICK DONOHUE, TOP TRIMMER [address], [address], [place], [address], [facility] 4 08:33:14 Nicotine dependenc e 41829799 Active 2023 CEDRICK DONOHUE NP [address], [address], [place], [address], [facility] 4 08:38:47 Asthma 278396803 Active 2023 CEDRICK DONOHUE NP [address], [address], [place], [address], [facility] 4 08:38:52 Anemia 102137132 Active 2023 CEDRICK DONOHUE NP [address], [address], [place], [address], [facility] 4 08:38:57 Mixed anxiety and depressiv e disorder 162926602 Active 2023 CEDRICK DONOHUE NP [address], [address], [place], [address], [facility] 4 08:39:11 Essential hypertens ion 75744812 Active 2023 CEDRICK DONOHUE NP [address], [address], [place], [address], [facility] 4 08:45:28 Pain in right hip joint 512777624919 102 Active 2023 CEDRICK DONOHUE NP [address], [address], [place], [address], [facility] 4 08:46:02 Seizure disorder 571722157 Active 2023 CEDRICK DONOHUE NP [address], [address], [place], [address], [facility] 4 08:49:03 Gastroeso phageal reflux disease without esophagit is 814218025 Active 2023 CEDRICK DONOHUE NP [address], [address], [place], [address], [facility] 4 08:49:54 Problem Notes None recorded. Medical Equipment None Reported. Allergies Allergen ID Allergen Name Allergen Category Reaction Reaction Severity Criticality Documentation Date Start Date Code Code System Note Provider Name and Address Organization Details Recorded Time 32566 crab allergeni c extract food Not available Not available Not available 10/13/2023 65619 0 RxNorm Not Available Not Available Not Available 71148 Product containin g penicilli n (product) medicatio n Not available Not available Not available 10/13/2023 91011 8001 SNOMED Not Available Not Available Not Available [...] mm[Hg] 58 mm[Hg] CEDRICK DONOHUE NP [address], [address], [place], [address], [facility] 4 08:30:44 Date Recorded Systolic blood pressure Diastolic blood pressure Provider Name and Address Organization Details Last Updated DateTime 10/15/2023 130 mm[Hg] 79 mm[Hg] Orestes Quezada MD [address], [address], [place], [address], [facility] 10/15/2023 12:04:01 Social History Question Answer Notes LastModified by Organizat ion Details LastModified Time Tobacco Smoking Status Current Some Day Smoker CEDRICK DONOHUE NP [address], [address], [place], [address], [facility] 10/13/2023 08:35:33 Do You Have An [...] adjuvanted, quadrivalent, PF 2 completed Zeny lobato, [facility] 12/01/2023 11:56:47 pneumococcal polysaccharide PPV23 9 completed Zeny lobato, [facility] 12/01/2023 11:56:57 Past Encounters Encounter ID Performer Location Encounter Start Date Encounter Closed Date Diagnosis/Indication Diagnosis SNOMED-CT Code Diagnosis ICD10 Code Diagnosis Note [id number] CEDRICK DONOHUE NP [facility] on [address] [place] [address] 10/13/2023 08:16:39 10/17/2023 13:39:12 Falls [id number] R29.6 PT OT eval and treatfall precaution sfrequent safety checks Cerebrovas cular accident 868990626 I63.9 lovenox 40 mg sub cut until more activeasa 81 mg dailyatorv astatin 40 mg dailymonit or neuros Wound of skin 963034188 T14.8XXA wound consultmon itor for any infection Chronic ob structive pulmonary disease 75170562 J44.9 albuterol inhaler q6hr prnduoneb tid prnmonitor resp status Asthma 744467257 J45.90 9 albuterol inhaler q6hr prnduoneb tid prnmonitor resp status Mixed anxi ety and depressive disorder 666417957 F41.8 remeron 30 mg hszoloft 25 mg dailypsych prn Nicotine dependence 5629 4008 F17.200 offer cessation Anemia 149186158 D64.9 vit c 250 mg bidiron 324 mg dailyfolic acid 1 mg dailymonit or labs Essential hypertension 44634908 I10 amlodipine 5 mg dailymetop rolol 25 mg bidmonitor bp Pain in ri ght hip joint 5670245390 35063 M25.551 tylenol prntramado l 25 mg q6hr prn Seizure disorder 4821826 02 G40.909 keppra 500 mg bidmonitor neuros Gastroesop hageal reflux disease without esophagitis 966312916 K21.9 omeprazole 20 mg daily [id number] Orestes Quezada MD [facility] on [address] [place] [address] 10/15/2023 12:03:28 10/17/2023 14:05:43 Closed fracture of hip 132692243 S72.091D right impacted subcapital fx right proximal femurEval by ortho and underwent closed reduction and percutaneo us pinningfol low ortho recs and update with concernsPT OT eval and treatloven ox for DVT prophylaxi sincision site cleanscrip ts written for oxycodone 5 mg q 6 prn pain with second E-kit script writtenupd ate ortho with concern Falls 748437889 R29.6 PT OT eval and treatsee abovemonit or fall risk Cerebrovas cular accident 123305501 I63.89 hx of CVA with residual right sided hemiparesi scurrently on lovenox for DVT prophylaxi smaintaine d onlipitor 40 mg qdsee above Chronic ob structive pulmonary disease 05797030 J41.1 on O2 3 lpm at baselinemo nitor respirator y status on current medspulmon ology eval prn Mixed anxi ety and depressive disorder 541416636 F41.8 remeron 30 mg hszoloft 25 mg qdcontinue dmonitor moodpsych prn Nicotine dependence 5629 4008 F17.210 hx of quit priornow on O2 for COPD Anemia 278251939 D50.0 multifacto rial anemia required 1 unit pRBC post opnow on iron supplement monitor cbc and need for further transfusio niron studies prn Essential hypertension 24965896 I10 norvasc 5 mg qdmetoprol ol 25 mg bidmonitor bp Seizure disorder 3351173 02 G40.909 G40.89 carrying dxmaintain ed onkeppra 500 mg bidmonitor for activity Gastroesop hageal reflux disease without esophagitis 548730476 K21.9 omeprazole 20 mg qdmonitor for sx relief Coronary arteriosclerosis 28162457 I25.10 with hx of takotsubo cardiomyop athylipito r 40 mg qdASA 81 mg qdmetoprol ol 25 mg bidmonitor for sxcards eval prn Standard c hest X-ray abnormal 276787957 R93.89 stable opacity to repeat imaging in 3 months Health Concerns Section Related Observation LastModified by Organization Detai ls LastModified Time None Recorded Concern Status LastModified by Organization Details LastModified Time None Recorded Advance Directives Directive Y: Payers Encounter Date Sequence Insurance Name Policy Number Policy Duran Covered Member ID Duran Member ID Guarantor Name 10/13/2023 1 [facility] (MEDICAID REPLACEMENT - HMO) FAUSTOPAUL SMITHS Oxana Bragg [id number] Oxana Bragg 10/15/2023 1 [facility] (MEDICAID REPLACEMENT - HMO) JAYDEN Oxana Bragg [id number] Oxana Bragg Notes Date Note Type Note [...] ordered some tramadol for her. CEDRICK DONOHUE, TOP TRIMMER [address], [address], [place], [address], [facility] - [facility] 10/13/2023 09:02:01 10/15/2023 text/html Patient is a [...] care and therapy Orestes Quezada MD [address], [address], [place], [address], [facility] - [facility] 10/15/2023 13:32:26 OBGyn Episode No OBEpisode recorded.
[2024-11-13 16:14] LABS: MANUAL DIFF FLAG NO
[2024-11-13 16:41] LABS: Basophils Percent Auto 0.5 % (0-2); Eosinophils Absolute Auto 0.1 X10*3/uL (0.0-0.4); Eosinophils Percent Auto 2.3 % (0-4); Hematocrit 34.4 % (37.0-47.0); Imm Gran Abs Auto 0.02 X10*3/uL (0.00-0.03); Imm Gran Pct Auto 0.3 % (0.0-0.4); Lymphocytes Absolute Auto 1.5 X10*3/uL (1.2-4.9); Mean Corpuscular HGB Conc 29.1 g/dl (31.0-35.0); Mean Corpuscular Hemoglobin 27.8 pg (27.0-33.0); Mean Corpuscular Volume 95.6 fL (80.0-98.0); Mean Platelet Volume 10.4 fL (9.4-12.3); Monocytes Absolute Auto 0.8 X10*3/uL (0.1-1.2); Monocytes Percent Auto 13.2 % (2-11); Neutrophils Absolute Auto 3.5 x10*3/uL (2.0-8.3); Neutrophils Percent Auto 58.7 % (45-73); Platelet Count 260 X10*3/uL (160-400); Red Cell Distribution Width 13.8 % (11.0-16.0)
[2024-11-13 17:02] LABS: Alkaline Phosphatase 81 U/L (39-117)
[2024-11-13 17:08] LABS: Alanine Aminotransferase 17 U/L (0-31); Albumin Level 4.1 g/dL (3.5-5.0); Anion Gap 13 (12-20); Aspartate Amino Transferase 29 U/L (5-31); Bilirubin Total 0.2 mg/dL (0.0-1.0); Blood Urea Nitrogen 7 mg/dL (9-16); Carbon Dioxide 42 mmol/L (22-29); Chloride 88 mmol/L (96-108); Estimated Glomerular Filt Rate > 60; Glucose Random 82 mg/dL (60-115); Iron 98 mcg/dL (30-160); Percent Iron Saturation 33 % (15-50); Potassium 4.9 mmol/L (3.3-5.1); Sodium 138 mmol/L (135-145); Total Iron Binding Capacity 298 mcg/dL (228-428); Total Protein 7.4 g/dL (6.5-8.0); Unsaturated Iron Binding 200 ug/dL
[2024-11-13 17:11] LABS: Ferritin 86 ng/mL (10-250); TSH reflex Free T4 0.72 uIU/mL (0.32-4.0)
[2024-11-13 17:17] LABS: Vitamin B12 779 pg/mL (200-900)
[2024-11-18 15:39] LABS: Vitamin D 25-OH, D2 <4 ng/mL; Vitamin D 25-OH, D3 35 ng/mL; Vitamin D 25-OH, Total 35 ng/mL (30-100)
== END 2024-11-13 12:17 | disposition home or self-care (01) ==
LOC: HO.HMGCLDS 12:16
PROVIDERS: PCP Internal Medicine; Visit Provider Internal Medicine
DX: D64.9 Anemia, unspecified (principal); E44.0 Moderate protein-calorie malnutrition; F33.41 Major depressive disorder, recurrent, in partial remission; K21.9 Gastro-esophageal reflux disease without esophagitis; J43.1 Panlobular emphysema; Z99.81 Dependence on supplemental oxygen; I69.351 Hemiplegia and hemiparesis following cerebral infarction affecting right dominant side; R56.9 Unspecified convulsions
CPT/HCPCS: 36415; 80053; 82306; 82607; 82728; 83540; 84443; 85025

== ENCOUNTER 2024-11-26 15:19 | Outpatient (AMB) | payer OTHER, SELFPAY ==
[2024-11-26 15:25] VITALS: BP 122/62; PULSE 72; O2SAT 95
--- NOTE | 2024-11-26 15:25 | MHC.OFFVIS ---
Vital Signs 11/26/24 15:25 Height 5 ft 1 in BP 122/62 Blood Pressure Location Lt brachial Position Sitting Pulse 72 Pulse Source Pulse Oximeter Pulse Oximetry (%) 95 Oxygen Delivery Method Nasal Cannula Oxygen Flow Rate 3 Intake Visit Reasons: copd Intake Note: pt is here for follow up and has been having a problem with oxygen dropping into 70 and 80's with movement, her concentrator is with [employer], and they are wondering if there could be a problem, on 4 liters at home she is struggling, she does better on tanks. Send order to check concentrator. Automotive Project Engineer Required: No Allergies crab Allergy (Unknown, Verified 11/26/24 15:55) Hives penicillin V Allergy (Unknown, Verified 11/26/24 15:55) hives Penicillins [PENICILLINS] Allergy (Unknown, Verified 11/26/24 15:55) hives SEASONAL ALLERGIES Allergy (Mild, Uncoded 11/26/24 15:55) RUNNY NOSE Medication List - Last Reconciled 11/26/24 by Juan Carlos Gonzalez MD albuterol sulfate 90 mcg/actuation 2 puffs PO Q6H PRN 30 days amlodipine 5 mg PO DAILY 90 days aspirin (Adult Low Dose Aspirin) 81 mg PO DAILY atorvastatin 40 mg PO BEDTIME Boost High Protein (food supplemt, lactose-reduced) 1 ea PO BID NS [Diapers 3 times a day] docusate sodium 100 mg PO DAILY PRN ferrous sulfate 324 mg PO BID 90 days folic acid 1 mg PO DAILY gabapentin 300 mg PO BID 90 days ipratropium-albuterol 0.5 mg-3 mg(2.5 mg base)/3 mL 3 mL inhalation QID levetiracetam 500 mg PO BID 180 days metoprolol tartrate 25 mg PO BID 90 days mirtazapine 30 mg PO BEDTIME 90 days omeprazole 20 mg PO DAILY@0630 [orthotic consult Orthotic consult to right hand as directed] [Orthotic consult orthotic consult to right foot as directed.] polyethylene glycol 3350 17 grams PO DAILY PRN sertraline 50 mg PO DAILY Do you need a note to return to daycare/school/sports/work: No HPI HPI copd: Details: THIS 58 YEARS OLD FEMALE, WITH PREVIOUS HISTORY OF STROKE AND LIVING HAS RESIDUAL RIGHT HEMIPLEGIA, HAD A SEIZURE EPISODE ABOUT 4 MONTHS AGO, SUFFERED FROM CONTUSION OF THE RIGHT SIDE OF THE FOREHEAD. SHE WAS IN THE [facility] FOR OBSERVATION FOR A FEW DAYS. CT SCAN OF THE HEAD DID SHOW ANY INTERNAL INJURY. SHE DID NOT HAVE ANY RECURRENT SEIZURE. PATIENT WAS STARTED ON KEPPRA 500 MG B.I.D., SHE IS ALSO ON GABAPENTIN 300 MG B.I.D.. BREATHING STATUS IS HAS REMAINED STABLE BEFORE, SHE USES IPRATROPIUM-ALBUTEROL SOLUTION IN THE NEBULIZER 3-4 TIMES A DAY . SHE DOES NOT HAVE ANY OTHER INHALERS. SHE CLAIMS THAT BREATHING CARNEY SHE IS STAYING VERY STABLE AND NOT ANY WORSE, THAN BEFORE THE MAIN PROBLEM IS THAT SHE IS ON OXYGEN 24 HOURS A DAY, WITH THE HE CYLINDERS HER O2 SAT REMAINS IN RANGE OF 91-93% JUST WITH 3 L/MINUTE. WHEN SHE SWITCHES TO THE STATIONARY CONCENTRATOR SHE CAN NOT MAINTAIN O2 SAT ABOVE 90% EVEN WITH 4 L/MINUTE. SO THERE SEEMS TO BE SOME ISSUE OR DEFECT WITH THE STATIONARY CONCENTRATOR. [facility] Medical History Seizure (~11/2021) History of multiple cerebrovascular accidents (CVAs) Hemiparesis affecting right side as late effect of cerebrovascular accident Aphasia History of non-ST elevation myocardial infarction (NSTEMI) (~11/2021) History of acute respiratory distress syndrome (ARDS) (~08/2021) Coronary artery disease Takotsubo cardiomyopathy COPD (chronic obstructive pulmonary disease) Respiratory failure with hypoxia Oxygen dependent Personal history of nicotine dependence Hemoptysis Closed subcapital fracture of femur Cocaine abuse Hypertensive emergency Normocytic anemia History of drug abuse Cocaine abuse Major depression, recurrent Acute CHF (congestive heart failure) Hypercapnic respiratory failure, chronic Asymptomatic carotid artery stenosis with infarction Chronic GERD Environmental allergies Anxiety, generalized Lipid disorder Asthma, moderate Surgical History History of left-sided carotid endarterectomy (~09/2012) History of tonsillectomy and adenoidectomy Family History Father Substance abuse Mother Brain cancer Maternal Grandfather History of heart attack Maternal Grandmother History of heart attack Paternal Grandfather No problems noted. Paternal Grandmother No problems noted. Brother No problems noted. Brother No problems noted. Son No problems noted. Daughter No problems noted. Other Mental health disorder Social History Household Members: None Household Members Other:: daughter Housing: Apartment Do you presently have visiting nurse or other home services: No Unable to assess alcohol history related to: Refusing to respond Alcohol intake: former Patient Tobacco Use Status: Former Tobacco user Tobacco use type: Cigarette Cigarettes Per Day: 2 Years Smoked: COUPLE YEAR AGO PER PT e-Cigarette/Vaping Use: Never Used Second Hand Smoke Exposure: No Advance Directives Date on File: 11/25/21 service: No Current occupational status: disabled Cognitive needs: No Hearing needs: No Vision needs: No Review of Systems Const All systems reviewed & are unremarkable except as noted in HPI and below Eyes Reports no additional complaints ENT Reports no additional complaints (Is set at occasional nasal bleed due to irritation by the nasal cannula) Card Denies chest pain and Denies dyspnea on exertion Resp Denies dyspnea on exertion GI Reports heartburn (Symptoms of GERD treated with omeprazole) Reports no additional complaints Musc Reports abnormal gait (Impaired gait due to right hemiplegia), Reports muscle weakness and Reports other (Right-sided hemiplegia) Skin/Breast Reports system reviewed and no additional complaints, except as documented Neuro Reports abnormal gait (Impaired gait due to right hemiplegia) Psych Reports depression Endo Reports no additional complaints Antwan/Lymph Reports no additional complaints Physical Exam Vital Signs: Last Vital Signs Pulse 72 11/26/24 15:25 BP 122/62 11/26/24 15:25 Pulse Ox 95 11/26/24 15:25 Oxygen Delivery Method Nasal Cannula 11/26/24 15:25 Oxygen Flow Rate 3 11/26/24 15:25 Const Other: Chronically sick looking, of a thin build, and somewhat emaciated. General: comfortable (in wheelchair ), no acute distress, alert and awake Orientation/consciousness: patient oriented x3 HEENT Head: Yes normal to inspection and Yes other (ECCHYMOSIS, ON THE RIGHT SIDE OF THE FOREHEAD. NO HEMATOMA) General nose exam: No nasal polyps present and No nasal discharge present Face and sinus: Yes sinuses nontender Mouth: oropharynx normal Throat: Yes posterior oropharynx normal Eyes General: appearance normal, both eyes and all related structures Neck Neck: Yes normal visual inspection, Yes no lymphadenopathy, Yes trachea midline and Yes no JVD Thyroid: Thyroid normal Chest Chest palpation & inspection: normal inspection of the chest, normal palpation of entire chest wall and no tenderness Resp Other: Percussion note is hyper resonant. Breath sounds are distant with prolonged expiratory phase. No wheezes or crepitations are heard. Cardio Palpation: normal PMI Rate: regular rate Rhythm: regular rhythm Heart sounds: no gallops and no murmurs GI Palpation (GI): Soft to palpation, nontender, No hepatosplenomegaly present and no masses Auscultation: normal bowel sounds Back/Spine/Pelvis Thoracic/Lumbar Spine: thoracic and lumbar spine normal to inspection and thoraco-lumbar ROM limited Skin General skin exam: no rashes or lesions noted Neuro General: patient oriented x3 and No no focal motor deficits (Has right hemiplegia) Cranial nerves: Yes CN's II-XII intact bilaterally Extrem General: Yes normal to inspection, Yes no clubbing, cyanosis or edema and Yes no calf tenderness Psych Appearance: grossly normal and well kempt Speech and movement: Normal speech and movement present Assessment & Plan Assessment & Plan (1) COPD (chronic obstructive pulmonary disease): Comment: She does have chronic obstructive pulmonary disease secondary to her long-time smoking. It seems to be fairly stable at this time. Code(s): J44.9 - Chronic obstructive pulmonary disease, unspecified Category: Medical Qualifiers: COPD type: emphysema Emphysema type: panlobular Qualified Code(s): J43.1 - Panlobular emphysema Plan: THE MAINSTAY OF HER TREATMENT IS: IPRATROPIUM-ALBUTEROL SOLUTION IN THE NEBULIZER TO BE USE Q 6 HOURS WHILE AWAKE. LATELY SHE IS USING THE SOLUTION ABOUT 4 TIMES A DAY. SHE DOES HAVE ALBUTEROL HFA ON HAND BUT HARDLY NEEDS TO USE IT, EXCEPT WHEN SHE IS OUT OF THE HOUSE FOR PROLONG TIME. (2) Respiratory failure with hypoxia: Comment: Patient does have chronic hypoxemia and is dependent on oxygen. Using 3-4 L/minute continuously, Has issue with the stationary concentrator, and even with 4 L/minute her O2 sats however around 90%, while with the cylinders she has no problem, Code(s): J96.91 - Respiratory failure, unspecified with hypoxia Category: Medical Plan: Continue to use O2 3 L/minute with the portable cylinder, With the stationary concentrator she can increase the flow to 4 L/minute, We are going to contact the DME provider to have somebody come to the house and check the stationary concentrator. (3) Nicotine dependence, cigarettes, uncomplicated: Comment: Patient has lifelong history of smoking. Claims that she has quit smoking completely since January 2024. Code(s): F17.210 - Nicotine dependence, cigarettes, uncomplicated Category: Medical Plan: Commended for finally quitting the smoking completely. (4) Pulmonary nodule 1 cm or greater in diameter: Comment: She does have a few pulmonary nodules and 1 being close to 1 cm. PET SCAN AT [facility] , THE PULMONARY NODULES IN THE RIGHT LOWER LOBE WELL IN LEFT LOWER LOBE FDG NEGATIVE . She needs close follow-up. A repeat CT scan of the chest in 4 months from the PET scan, is recommended. Code(s): R91.1 - Solitary pulmonary nodule Category: Medical Plan: I have ordered a CT scan of the chest at [facility] for follow-up. Orders: Orders CT chest wo IV con Today F17.210 - Nicotine dependence, cigarettes, uncomplicated, R91.1 - Solitary pulmonary nodule Coding Level of Care Code Est Pt Level 3 (09688) Diagnoses Panlobular emphysema J43.1 COPD type: emphysema Emphysema type: panlobular Respiratory failure with hypoxia J96.91 Nicotine dependence, cigarettes, uncomplicated F17.210 Pulmonary nodule 1 cm or greater in diameter R91.1
--- OUTSIDE RECORDS SUMMARY | 2024-11-26 17:50 | XMS_ITS | Data Portability ---
Author Organization [facility], Main Office Address [address] [place] [address] Care Team Providers Care Street Openings Inspector Name Role Phone [facility] OTHER Assessment No assessment recorded. 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 right side weakness CEDRICK DONOHUE, OPERATING COST CLERK [address], [address], [place], [address], [email or web address] 4 08:32:49 Chronic obstructi ve pulmonary disease 37421830 Active 2023 CEDRICK DONOHUE, OPERATING COST CLERK [address], [address], [place], [address], [email or web address] 4 08:32:18 Wound of skin 463883381 Active 2023 skin tear right elbow CEDRICK DONOHUE, OPERATING COST CLERK [address], [address], [place], [address], [email or web address] 4 08:33:14 Nicotine dependenc e 17200692 Active 2023 CEDRICK DONOHUE NP [address], [address], [place], [address], [facility] [employer] [facility] 4 08:38:47 Asthma 744031617 Active 2023 CEDRICK DONOHUE NP [address], [address], [place], [address], [facility] [employer] [facility] 4 08:38:52 Anemia 603082191 Active 2023 CEDRICK DONOHUE NP [address], [address], [place], [address], [facility] [employer] [facility] 4 08:38:57 Mixed anxiety and depressiv e disorder 916981257 Active 2023 CEDRICK DONOHUE NP [address], [address], [place], [address], [facility] [employer] 4 08:39:11 Essential hypertens ion 03836620 Active 2023 CEDRICK DONOHUE NP [address], [address], [place], [address], [facility] [employer] 4 08:45:28 Pain in right hip joint 614233801171 102 Active 2023 CEDRICK DONOHUE NP [address], [address], [place], [address], [email or web address] 4 08:46:02 Seizure disorder 240068687 Active 2023 CEDRICK DONOHUE NP [address], [address], [place], [address], [facility] [employer] 4 08:49:03 Gastroeso phageal reflux disease without esophagit is 067418820 Active 2023 CEDRICK DONOHUE NP [address], [address], [place], [address], [email or web address] 4 08:49:54 Problem Notes None recorded. Medical Equipment None Reported. Allergies Allergen ID Allergen Name Allergen Category Reaction Reaction Severity Criticality Documentation Date Start Date Code Code System Note Provider Name and Address Organization Details Recorded Time 79433 crab allergeni c extract food Not available Not available Not available 10/13/2023 65307 0 RxNorm Not Available Not Available Not Available 77232 Product containin g penicilli n (product) medicatio n Not available Not available Not available 10/13/2023 25911 8001 SNOMED Not Available Not Available Not [...] 58 mm[Hg] CEDRICK DONOHUE NP [address], [address], [place], [address], [email or web address] [facility] 4 08:30:44 Date Recorded Systolic blood pressure Diastolic blood pressure Provider Name and Address Organization Details Last Updated DateTime 10/15/2023 130 mm[Hg] 79 mm[Hg] Orestes Quezada MD [address], [address], [place], [address], [email or web address] 10/15/2023 12:04:01 Social History Question Answer Notes LastModified by Organizat ion Details LastModified Time Tobacco Smoking Status Current Some Day Smoker CEDRICK DONOHUE NP [address], [address], [place], [address], [email or web address] 10/13/2023 08:35:33 Do You Have An [...] adjuvanted, quadrivalent, PF 2 completed Zeny lobato, [facility] 12/01/2023 11:56:47 pneumococcal polysaccharide PPV23 9 completed Zeny lobato, [facility] 12/01/2023 11:56:57 Past Encounters Encounter ID Performer Location Encounter Start Date Encounter Closed Date Diagnosis/Indication Diagnosis SNOMED-CT Code Diagnosis ICD10 Code Diagnosis Note [id number] CEDRICK DONOHUE NP [facility] on [address] [place] [address] 10/13/2023 08:16:39 10/17/2023 13:39:12 Falls 792198352 R29.6 PT OT eval and treatfall precaution sfrequent safety checks Cerebrovas cular accident 961748142 I63.9 lovenox 40 mg sub cut until more activeasa 81 mg dailyatorv astatin 40 mg dailymonit or neuros Wound of skin 438045112 T14.8XXA wound consultmon itor for any infection Chronic ob structive pulmonary disease 64399044 J44.9 albuterol inhaler q6hr prnduoneb tid prnmonitor resp status Asthma 940979316 J45.90 9 albuterol inhaler q6hr prnduoneb tid prnmonitor resp status Mixed anxi ety and depressive disorder 893416427 F41.8 remeron 30 mg hszoloft 25 mg dailypsych prn Nicotine dependence 5629 4008 F17.200 offer cessation Anemia 262601310 D64.9 vit c 250 mg bidiron 324 mg dailyfolic acid 1 mg dailymonit or labs Essential hypertension 48004763 I10 amlodipine 5 mg dailymetop rolol 25 mg bidmonitor bp Pain in ri ght hip joint 4982660978 65108 M25.551 tylenol prntramado l 25 mg q6hr prn Seizure disorder 8034937 02 G40.909 keppra 500 mg bidmonitor neuros Gastroesop hageal reflux disease without esophagitis 617875096 K21.9 omeprazole 20 mg daily [id number] Orestes Quezada MD [facility] on [address] [place] [address] 10/15/2023 12:03:28 10/17/2023 14:05:43 Closed fracture of hip 022659274 S72.091D right impacted subcapital fx right proximal femurEval by ortho and underwent closed reduction and percutaneo us pinningfol low ortho recs and update with concernsPT OT eval and treatloven ox for DVT prophylaxi sincision site cleanscrip ts written for oxycodone 5 mg q 6 prn pain with second E-kit script writtenupd ate ortho with concern Falls 740121625 R29.6 PT OT eval and treatsee abovemonit or fall risk Cerebrovas cular accident 735528017 I63.89 hx of CVA with residual right sided hemiparesi scurrently on lovenox for DVT prophylaxi smaintaine d onlipitor 40 mg qdsee above Chronic ob structive pulmonary disease 65317105 J41.1 on O2 3 lpm at baselinemo nitor respirator y status on current medspulmon ology eval prn Mixed anxi ety and depressive disorder 945369645 F41.8 remeron 30 mg hszoloft 25 mg qdcontinue dmonitor moodpsych prn Nicotine dependence 5629 4008 F17.210 hx of quit priornow on O2 for COPD Anemia 677387541 D50.0 multifacto rial anemia required 1 unit pRBC post opnow on iron supplement monitor cbc and need for further transfusio niron studies prn Essential hypertension 75373258 I10 norvasc 5 mg qdmetoprol ol 25 mg bidmonitor bp Seizure disorder 5881353 02 G40.909 G40.89 carrying dxmaintain ed onkeppra 500 mg bidmonitor for activity Gastroesop hageal reflux disease without esophagitis 915650659 K21.9 omeprazole 20 mg qdmonitor for sx relief Coronary arteriosclerosis 17631940 I25.10 with hx of takotsubo cardiomyop athylipito r 40 mg qdASA 81 mg qdmetoprol ol 25 mg bidmonitor for sxcards eval prn Standard c hest X-ray abnormal 219367833 R93.89 stable opacity to repeat imaging in 3 months Health Concerns Section Related Observation LastModified by Organization Detai ls LastModified Time None Recorded Concern Status LastModified by Organization Details LastModified Time None Recorded Advance Directives Directive Y: Payers Encounter Date Sequence Insurance Name Policy Number Policy Duran Covered Member ID Duran Member ID Guarantor Name 10/13/2023 1 [facility] (MEDICAID REPLACEMENT - HMO) [place]USTOMELCHER [place] Oxana Bragg [id number] Oxana Bragg 10/15/2023 1 [facility] [employer] (MEDICAID REPLACEMENT - HMO) JAYDEN Oxana Bragg [id number] Oxana Bragg Notes Date Note Type Note [...] ordered some tramadol for her. CEDRICK DONOHUE, OPERATING COST CLERK [address], [address], [place], [address], [facility] - [facility] 10/13/2023 09:02:01 10/15/2023 text/html Patient is a [...] care and therapy Orestes Quezada MD [address], [address], [place], [address], [facility] - [facility] 10/15/2023 13:32:26 OBGyn Episode No OBEpisode recorded.
--- OUTSIDE RECORDS SUMMARY | 2024-11-26 17:50 | XMS_ITS | Data Portability ---
Author Organization [place] [facility] Address [address] [place] [address] Care Team Providers Care Horse Riding Coach Or Instructor Name Role Phone JANNA COOLEY Primary Care Provider [phone] Assessment Encounter Date Assessment Date Assessment LastModified by Organization Details LastModified Time 10/30/2019 10/30/2019 Overview/History :Fernando melvin is a 54-year-old female new to [facility]. She has a medical history significant for coronary artery disease, status post silent [place], hypertension, hyperlipidemia, COPD, recent treatment for pneumonia and CVA in the past. She contacted [facility] after noting that her toenails were discolored. [...] the patient if not improving to contact [facility] her PCP for reevaluation. Did also discuss the patient's blood pressure was a bit elevated, she reports she had been on blood pressure medication in the past but is not presently. Given her hypertension and history of coronary disease with an VA in the past a beta pedro would likely be a good option for her, would defer this to her primary care physician. In order to obtain further information and compare any laboratory results/values, I have accessed patient records on the [facility] [employer]. This information was pertinent in my medical decision making today. Time On Scene with Patient: 00:25:54 [email or web address] Not available 10/30/2019 18:09:18 Plan of Treatment Reminders Order Date Submit Date Provider Last Modified By Organization Details Last Modified Time Details Appointments None recorded. Lab None recorded. Referral None recorded. Procedures None recorded. Surgeries None recorded. Imaging None recorded. Medication Orders Lamisil AT 1 % topical cream 2019 020 INTERFACE [id number], [address] [place] [address], [id number], 0 13:02:27 Patient TargetsNo targets recorded. Patient Instructions Encounter Date Encounter Id Patient Instructions Last Modified By Organization Details Last Modified Time 10/30/2019 [id number] toenail fungus: care instructions [email or web address] Not available 10/30/2019 13:02:19 WE CAME TO SEE [facility] TODAY FOR CONCERNS OF FUNGAL INFECTION OF YOUR TOES. YOU ARE BEING PRESCRIBED A TOPICAL ANTIFUNGAL FOR THIS. YOU ARE TO APPLY THIS TO CLEAN FEET TWICE DAILY FOR TWO WEEKS. IF THIS IS NOT IMPROVING BY 2 WEEKS PLEASE CONTACT PCP YOU MAY NEED ORAL TREATMENT. Thank you for your visit with [facility] today. You were seen today for treatment [...] condition between 8am-10pm, please call [facility] at [phone] to help navigate your care. [email or web address] Not available 10/30/2019 13:01:29 Reason for Referral None Reported. Medical Equipment None Reported. Allergies Allergen ID Allergen Name Allergen Category Reaction Reaction Severity Criticality Documentation Date Start Date Code Code System Note Provider Name and Address Organization Details Recorded Time 56493 Product containin g penicilli n (product) medicatio n Not available Not available Not available 10/30/2019 15773 8001 SNOMED BOO LIMA NP [address] [facility] [place], [address], [place] [facility] 0 12:40:59 Medications [...] Organization Details LastModified Time Mother Hypertensive disorder [email or web address] Not available 12:45:53 Medical History Condition Response Coronary Artery Disease Y COPD Y Depression Y Cancer N Stroke Y High Cholesterol Y Kidney Disease N Diabetes N Asthma Y Pulmonary Embolism N Hypertension Y Gynecological HistoryNo gynecological history recorded. Obstetrics History GPAL:G 0 P 0 0 0 0 Past Encounters Encounter ID Performer Location Encounter Start Date Encounter Closed Date Diagnosis/Indication Diagnosis SNOMED-CT Code Diagnosis ICD10 Code Diagnosis Note [id number] BOO LIMA NP [facility] [address] [place] [address] 10/30/2019 12:39:31 10/31/2019 12:21:43 Onychomycosis of toenails 832649768 B35.1 Essential hypertension 55276080 I10 Health Concerns Section Related Observation LastModified by Organization Detai ls LastModified Time None Recorded Concern Status LastModified by Organization Details LastModified Time None Recorded Advance Directives Directive None Recorded Payers Encounter Date Sequence Insurance Name Policy Number Policy Duran Covered Member ID Duran Member ID Guarantor Name 10/30/2019 1 [facility] - HEALTH NET PLAN (MEDICAID HMO) NAVYA Bragg [id number] Notes Date Note Type Note Provider Name and Address Organization Details Recorded Time 10/30/2019 text/html This is a 54-year-old female unknown [facility] with a medical history significant for asthma, COPD, coronary artery disease status post silent [place], depression, hypolipidemia, hypertension and stroke. She contacted [...] no fevers or chills. BOO LIMA NP [address] [facility], [place], [address], [place] [facility] 10/30/2019 18:09:22 OBGyn Episode No OBEpisode recorded.
== END 2024-11-26 16:09 | disposition home or self-care (01) ==
LOC: HO.HPS 15:20
PROVIDERS: PCP Internal Medicine; Visit Provider Internal Medicine
DX: J43.1 Panlobular emphysema (principal); J96.91 Respiratory failure, unspecified with hypoxia; F17.210 Nicotine dependence, cigarettes, uncomplicated; R91.1 Solitary pulmonary nodule
CPT/HCPCS: 99213

== ENCOUNTER → 2024-11-26 15:19 | Outpatient (BNVA) | payer OTHER, SELFPAY | PROVIDERS: PCP Internal Medicine; Visit Provider Internal Medicine | DX: J43.1 Panlobular emphysema (principal); J96.91 Respiratory failure, unspecified with hypoxia; R91.1 Solitary pulmonary nodule; F17.210 Nicotine dependence, cigarettes, uncomplicated | CPT/HCPCS: 99212 ==

== ENCOUNTER 2025-01-10 08:23 | Outpatient (AMB) | payer OTHER, SELFPAY ==
--- OUTSIDE RECORDS SUMMARY | 2025-01-10 08:33 | XMS_ITS | Data Portability ---
Author Organization [place] [facility] Address [address] [place] [address] Care Team Providers Care Sales And Service Technician Name Role Phone JANNA COOLEY Primary Care Provider Assessment Encounter Date Assessment Date Assessment LastModified by Organization Details LastModified Time 10/30/2019 10/30/2019 Overview/History :Fernando melvin is a 54-year-old female new to [facility]. She has a medical history significant for coronary artery disease, status post silent [place], hypertension, hyperlipidemia, COPD, recent treatment for pneumonia and CVA in the past. She contacted [facility] after noting that her toenails were discolored. [...] the patient if not improving to contact [facility] her PCP for reevaluation. Did also discuss the patient's blood pressure was a bit elevated, she reports she had been on blood pressure medication in the past but is not presently. Given her hypertension and history of coronary disease with an [place] in the past a beta pedro would likely be a good option for her, would defer this to her primary care physician. In order to obtain further information and compare any laboratory results/values, I have accessed patient records on the [facility] [employer]. This information was pertinent in my medical decision making today. Time On Scene with Patient: 00:25:54 [email or web address] Not available 10/30/2019 18:09:18 Plan of Treatment Reminders Order Date Submit Date Provider Last Modified By Organization Details Last Modified Time Details Appointments None recorded. Lab None recorded. Referral None recorded. Procedures None recorded. Surgeries None recorded. Imaging None recorded. Medication Orders Lamisil AT 1 % topical cream 2019 020 INTERFACE [id number], [address] [place] [address], [id number], 0 13:02:27 Patient TargetsNo targets recorded. Patient Instructions Encounter Date Encounter Id Patient Instructions Last Modified By Organization Details Last Modified Time 10/30/2019 [id number] toenail fungus: care instructions [email or web address] Not available 10/30/2019 13:02:19 WE CAME TO SEE [facility] TODAY FOR CONCERNS OF FUNGAL INFECTION OF YOUR TOES. YOU ARE BEING PRESCRIBED A TOPICAL ANTIFUNGAL FOR THIS. YOU ARE TO APPLY THIS TO CLEAN FEET TWICE DAILY FOR TWO WEEKS. IF THIS IS NOT IMPROVING BY 2 WEEKS PLEASE CONTACT PCP YOU MAY NEED ORAL TREATMENT. Thank you for your visit with [facility] today. You were seen today for treatment [...] condition between 8am-10pm, please call [facility] at [phone] to help navigate your care. [email or web address] Not available 10/30/2019 13:01:29 Reason for Referral None Reported. Medical Equipment None Reported. Allergies Allergen ID Allergen Name Allergen Category Reaction Reaction Severity Criticality Documentation Date Start Date Code Code System Note Provider Name and Address Organization Details Recorded Time 20147 Product containin g penicilli n (product) medicatio n Not available Not available Not available 10/30/2019 38240 8001 SNOMED BOO LIMA NP [address] [place], [address], [place] [facility] 0 12:40:59 Medications [...] Organization Details LastModified Time Mother Hypertensive disorder [email or web address] Not available 12:45:53 Medical History Condition Response Diabetes N Coronary Artery Disease Y High Cholesterol Y Cancer N Pulmonary Embolism N Stroke Y Hypertension Y Depression Y COPD Y Asthma Y Kidney Disease N Gynecological HistoryNo gynecological history recorded. Obstetrics History GPAL:G 0 P 0 0 0 0 Past Encounters Encounter ID Performer Location Encounter Start Date Encounter Closed Date Diagnosis/Indication Diagnosis SNOMED-CT Code Diagnosis ICD10 Code Diagnosis Note [id number] BOO LIMA NP [facility] - HOME [address] [place] [address] 10/30/2019 12:39:31 10/31/2019 12:21:43 Onychomycosis of toenails 513653311 B35.1 Essential hypertension 14351643 I10 Health Concerns Section Related Observation LastModified by Organization Detai ls LastModified Time None Recorded Concern Status LastModified by Organization Details LastModified Time None Recorded Advance Directives Directive None Recorded Payers Encounter Date Sequence Insurance Name Policy Number Policy Duran Covered Member ID Duran Member ID Guarantor Name 10/30/2019 1 [facility] - HEALTH NET PLAN (MEDICAID HMO) NAVYA Bragg [id number] Notes Date Note Type Note Provider Name and Address Organization Details Recorded Time 10/30/2019 text/html This is a 54-year-old female unknown [facility] with a medical history significant for asthma, COPD, coronary artery disease status post silent [place], depression, hypolipidemia, hypertension and stroke. She contacted [...] fevers or chills. BOO LIMA NP [address] [facility], [place], [address], [place] [facility] 10/30/2019 18:09:22 OBGyn Episode No OBEpisode recorded.
--- OUTSIDE RECORDS SUMMARY | 2025-01-10 08:34 | XMS_ITS | Data Portability ---
Author Organization [facility], Main Office Address [address] [facility] [place] [address] Care Team Providers Care Workers Compensation Consultant Name Role Phone [facility] ([facility]) OTHER Assessment No assessment recorded. [...] and Address Organization Details Recorded Time Falls [id number] Active 2023 CEDRICK DONOHUE, CLIMATE CHANGE ANALYST [address] , [address], [place], [address], [employer] 4 08:31:53 Cerebrova scular accident 421066843 Active 2023 right side weakness CEDRICK DONOHUE, CLIMATE CHANGE ANALYST [address] [facility], [address], [place], [address], [employer] 4 08:32:49 Chronic obstructi ve pulmonary disease 40872701 Active 2023 CEDRICK DONOHUE, CLIMATE CHANGE ANALYST [address], [address], [place], [address], [employer] 4 08:32:18 Wound of skin 017033974 Active 2023 skin tear right elbow CEDRICK DONOHUE, CLIMATE CHANGE ANALYST [address], [address], [place], [address], [employer] 4 08:33:14 Nicotine dependenc e 64102910 Active 2023 CEDRICK DONOHUE NP [address], [address], [place], [address], [facility] 4 08:38:47 Asthma 970251927 Active 2023 CEDRICK DONOHUE NP [address], [address], [place], [address], [facility] 4 08:38:52 Anemia 915674548 Active 2023 CEDRICK DONOHUE NP [address], [address], [place], [address], [facility] [employer] [facility] 4 08:38:57 Mixed anxiety and depressiv e disorder 485708401 Active 2023 CEDRICK DONOHUE NP [address], [address], [place], [address], [facility] [employer] 4 08:39:11 Essential hypertens ion 33334770 Active 2023 CEDRICK DONOHUE NP [address] [facility], [address], [place], [address], [facility] [employer] 4 08:45:28 Pain of right hip joint 735998085199 102 Active 2023 CEDRICK DONOHUE NP [address] [facility], [address], [place], [address], [facility] [employer] 4 08:46:02 Seizure disorder 333491338 Active 2023 CEDRICK DONOHUE NP [address] [facility], [address], [place], [address], [facility] [employer] 4 08:49:03 Gastroeso phageal reflux disease without esophagit is 662471310 Active 2023 CEDRICK DONOHUE NP [address] [facility], [address], [place], [address], [employer] 4 08:49:54 Problem Notes None recorded. Medical Equipment None Reported. Allergies Allergen ID Allergen Name Allergen Category Reaction Reaction Severity Criticality Documentation Date Start Date Code Code System Note Provider Name and Address Organization Details Recorded Time 28214 crab allergeni c extract food Not available Not available Not available 10/13/2023 31378 0 RxNorm CEDRICK DONOHUE NP [address] [facility], [address], [place], [address], [facility] [employer] 4 08:31:22 43571 Product containin g penicilli n (product) medicatio n Not available Not available Not available 10/13/2023 61194 8001 SNOMED CEDRICK DONOHUE NP [address] [facility], [address], [place], [address], [facility] [employer] 4 08:31:33 Medications Not known to be on any [...] mm[Hg] 58 mm[Hg] CEDRICK DONOHUE NP [address] [facility], [address], [place], [address], [place] [employer] 4 08:30:44 Date Recorded Systolic blood pressure Diastolic blood pressure Provider Name and Address Organization Details Last Updated DateTime 10/15/2023 130 mm[Hg] 79 mm[Hg] Orestes Quezada MD [address] [facility], [address], [place], [address], [place] [employer] 10/15/2023 12:04:01 Social History Question Answer Notes LastModified by Organizat ion Details LastModified Time Tobacco Smoking Status Current Some Day Smoker CEDRICK DONOHUE NP [address] [facility], [address], [place], [address], [facility] [employer] 10/13/2023 08:35:33 Do You Have An Advance [...] Influenza, adjuvanted, quadrivalent, PF 2 completed Zeny lobato [facility] 12/01/2023 11:56:47 pneumococcal polysaccharide PPV23 9 completed Zeny lobato [facility] 12/01/2023 11:56:57 Past Encounters Encounter ID Performer Location Encounter Start Date Encounter Closed Date Diagnosis/Indication Diagnosis SNOMED-CT Code Diagnosis ICD10 Code Diagnosis Note [id number] CEDRICK DONOHUE NP [facility] [address] [place] [address] 10/13/2023 08:16:39 10/17/2023 13:39:12 Falls 290409494 R29.6 PT OT eval and treatfall precaution sfrequent safety checks Cerebrovas cular accident 357059555 I63.9 lovenox 40 mg sub cut until more activeasa 81 mg dailyatorv astatin 40 mg dailymonit or neuros Wound of skin 170409966 T14.8XXA wound consultmon itor for any infection Chronic ob structive pulmonary disease 10359041 J44.9 albuterol inhaler q6hr prnduoneb tid prnmonitor resp status Asthma 293473428 J45.90 9 albuterol inhaler q6hr prnduoneb tid prnmonitor resp status Mixed anxi ety and depressive disorder 272813239 F41.8 remeron 30 mg hszoloft 25 mg dailypsych prn Nicotine dependence 5629 4008 F17.200 offer cessation Anemia 675151343 D64.9 vit c 250 mg bidiron 324 mg dailyfolic acid 1 mg dailymonit or labs Essential hypertension 12126577 I10 amlodipine 5 mg dailymetop rolol 25 mg bidmonitor bp Pain of ri ght hip joint 8048732739 51145 M25.551 tylenol prntramado l 25 mg q6hr prn Seizure disorder 3790620 02 G40.909 keppra 500 mg bidmonitor neuros Gastroesop hageal reflux disease without esophagitis 495819214 K21.9 omeprazole 20 mg daily [id number] Orestes Quezada MD [facility] [address] [place] [address] 10/15/2023 12:03:28 10/17/2023 14:05:43 Closed fracture of hip 660120760 S72.091D right impacted subcapital fx right proximal femurEval by ortho and underwent closed reduction and percutaneo us pinningfol low ortho recs and update with concernsPT OT eval and treatloven ox for DVT prophylaxi sincision site cleanscrip ts written for oxycodone 5 mg q 6 prn pain with second E-kit script writtenupd ate ortho with concern Falls 558363872 R29.6 PT OT eval and treatsee abovemonit or fall risk Cerebrovas cular accident 513072835 I63.89 hx of CVA with residual right sided hemiparesi scurrently on lovenox for DVT prophylaxi smaintaine d onlipitor 40 mg qdsee above Chronic ob structive pulmonary disease 17993941 J41.1 on O2 3 lpm at baselinemo nitor respirator y status on current medspulmon ology eval prn Mixed anxi ety and depressive disorder 618395638 F41.8 remeron 30 mg hszoloft 25 mg qdcontinue dmonitor moodpsych prn Nicotine dependence 5629 4008 F17.210 hx of quit priornow on O2 for COPD Anemia 762720894 D50.0 multifacto rial anemia required 1 unit pRBC post opnow on iron supplement monitor cbc and need for further transfusio niron studies prn Essential hypertension 70009023 I10 norvasc 5 mg qdmetoprol ol 25 mg bidmonitor bp Seizure disorder 3697776 02 G40.909 G40.89 carrying dxmaintain ed onkeppra 500 mg bidmonitor for activity Gastroesop hageal reflux disease without esophagitis 499961334 K21.9 omeprazole 20 mg qdmonitor for sx relief Coronary arteriosclerosis 24373734 I25.10 with hx of takotsubo cardiomyop athylipito r 40 mg qdASA 81 mg qdmetoprol ol 25 mg bidmonitor for sxcards eval prn Standard c hest X-ray abnormal 001611083 R93.89 stable opacity to repeat imaging in 3 months Health Concerns Section Related Observation LastModified by Organization Detai ls LastModified Time None Recorded Concern Status LastModified by Organization Details LastModified Time None Recorded Advance Directives Directive Y: Payers Encounter Date Sequence Insurance Name Policy Number Policy Duran Covered Member ID Duran Member ID Guarantor Name 10/13/2023 1 [facility] (MEDICAID REPLACEMENT - HMO) [facility] Oxana Bragg [id number] Oxana Bragg 10/15/2023 1 [facility] (MEDICAID REPLACEMENT - HMO) [facility] Oxana Bragg [id number] Oxana Guiel Notes Date Note Type Note Provider Name [...] tramadol for her. CEDRICK DONOHUE, MONSTER [address] [facility], [address], [place], [address], [facility] - [facility] 10/13/2023 09:02:01 10/15/2023 text/html Patient is a 58 yo female admit from hospital presenting after fall with right hip pain. Patient with hx CVA 2016 with residual right sided hemiparesis. Imaging positive [...] care and therapy Orestes Quezada MD [address] [facility], [place], [address], [facility] - [employer] 10/15/2023 13:32:26 OBGyn Episode No OBEpisode recorded.
--- NOTE | 2025-01-10 09:43 | MHC.PC.OV ---
Intake Visit Reasons: Discuss Labs Allergies crab Allergy (Unknown, Verified 11/26/24 15:55) Hives penicillin V Allergy (Unknown, Verified 11/26/24 15:55) hives Penicillins [PENICILLINS] Allergy (Unknown, Verified 11/26/24 15:55) hives SEASONAL ALLERGIES Allergy (Mild, Uncoded 11/26/24 15:55) RUNNY NOSE Medication List - Last Reconciled 01/10/25 by Brianna Gonzalez MD albuterol sulfate 90 mcg/actuation 2 puffs PO Q6H PRN 30 days amlodipine 5 mg PO DAILY 90 days aspirin (Adult Low Dose Aspirin) 81 mg PO DAILY atorvastatin 40 mg PO BEDTIME Boost High Protein (food supplemt, lactose-reduced) 1 ea PO BID NS [Diapers 3 times a day] docusate sodium 100 mg PO DAILY PRN ferrous sulfate 324 mg PO BID 90 days folic acid 1 mg PO DAILY gabapentin 300 mg PO BID 90 days ipratropium-albuterol 0.5 mg-3 mg(2.5 mg base)/3 mL 3 mL inhalation QID levetiracetam 500 mg PO BID 180 days metoprolol tartrate 25 mg PO BID 90 days mirtazapine 30 mg PO BEDTIME 90 days omeprazole 20 mg PO DAILY@0630 [orthotic consult Orthotic consult to right hand as directed] [Orthotic consult orthotic consult to right foot as directed.] polyethylene glycol 3350 17 grams PO DAILY PRN sertraline 50 mg PO DAILY Tobacco use date assessed: 10/18/24 Dental Screening Dental Screen Date: 10/18/24 HPI Discuss Labs HPI Details History - The patient is a 59-year-old female presenting with follow-up for her Chronic Obstructive Pulmonary Disease (COPD). - The patient has been experiencing challenges with her breathing, particularly at home, requiring augmentation to 4.5 liters of oxygen. - She utilizes a nebulizer approximately three to four times daily to manage symptoms. - History reveals retention of carbon dioxide indicating chronic respiratory compromise, with a scheduled appointment with a position classification specialist Dr Gonzalez, a CT scan for further assessment. - Chronic management of Iron Deficiency Anemia, previously significantly improved hemoglobin levels from 8.8 to 10 after treatment with ferrous sulfate, was documented. - The patient occasionally experiences loose stools but is knowledgeable about the darkening of stools due to iron supplements. - Documentation supports stable blood sugar levels, resolved liver enzyme disturbances, normalized Vitamin B12, Vitamin D, and thyroid levels. - The patient continues her regimen with antihypertensive medication (amlodipine), dyslipidemia management with atorvastatin, and stool softeners used at discretion for relief. - Seizure control is maintained with levetiracetam (Keppra) under neurologist care, with a recall of a delayed neurology appointment to next month. - Occasional depression management with sertraline and past fill data indicating yearlong supply sufficiency. Problem List - Chronic Obstructive Pulmonary Disease (COPD) - Iron Deficiency Anemia - Hypertension - Hyperlipidemia - Epilepsy - Gastric Reflux Disease - Depression - Mild Renal Insufficiency Patient Instructions - Continue taking iron supplements as prescribed. - Monitor oxygen levels and adjust the oxygen concentrator at home as discussed. - Follow dietary modifications discussed for balanced nutrition including protein and carbohydrates. - Use the nebulizer up to four times per day as needed for respiratory relief. - Seek immediate medical care if she experiences any acute shortness of breath. - Attend scheduled appointments with a able bodied watchman, neurologist, and follow through with the CT scan for lung assessment. - Repeat blood tests in three months as scheduled. Review of Systems - General: No fever no chills - Neurological: No headaches no dizziness - Ear nose throat: No sore throat no hearing difficulty no ear pain - Cardiovascular: No syncope, no chest pain, no palpitations - Gastrointestinal: No nausea vomiting or diarrhea [facility] Medical History Seizure (~11/2021) History of multiple cerebrovascular accidents (CVAs) Hemiparesis affecting right side as late effect of cerebrovascular accident Aphasia History of non-ST elevation myocardial infarction (NSTEMI) (~11/2021) History of acute respiratory distress syndrome (ARDS) (~08/2021) Coronary artery disease Takotsubo cardiomyopathy COPD (chronic obstructive pulmonary disease) Respiratory failure with hypoxia Oxygen dependent Personal history of nicotine dependence Hemoptysis Closed subcapital fracture of femur Cocaine abuse Hypertensive emergency Normocytic anemia History of drug abuse Cocaine abuse Major depression, recurrent Acute CHF (congestive heart failure) Hypercapnic respiratory failure, chronic Asymptomatic carotid artery stenosis with infarction Chronic GERD Environmental allergies Anxiety, generalized Lipid disorder Asthma, moderate Surgical History History of left-sided carotid endarterectomy (~09/2012) History of tonsillectomy and adenoidectomy Family History Father Substance abuse Mother Brain cancer Maternal Grandfather History of heart attack Maternal Grandmother History of heart attack Paternal Grandfather No problems noted. Paternal Grandmother No problems noted. Brother No problems noted. Brother No problems noted. Son No problems noted. Daughter No problems noted. Other Mental health disorder Social History Household Members: None Household Members Other:: daughter Housing: Apartment Do you presently have visiting nurse or other home services: No Unable to assess alcohol history related to: Refusing to respond Alcohol intake: former Patient Tobacco Use Status: Former Tobacco user Tobacco use type: Cigarette Cigarettes Per Day: 2 Years Smoked: COUPLE YEAR AGO PER PT e-Cigarette/Vaping Use: Never Used Second Hand Smoke Exposure: No Advance Directives Date on File: 11/25/21 service: No Current occupational status: disabled Cognitive needs: No Hearing needs: No Vision needs: No Questionnaire Thrive Questionnaire Date Thrive assessed: 07/07/24 SAGAR-7 AMB Questionnaire SAGAR-7 Date SAGAR - 7 assessed: 10/20/22 Source: Developed by Drs. Hemant Eller, Sue Christensen, Jamey Drummond and colleagues, with an educational mario alberto from [employer]. Physical exam (Primary Care) Tobacco/Smoking Status: Tobacco use Status Tobacco use date assessed 10/18/24 01/10/25 09:44 Patient Tobacco Use Status Former Tobacco user 01/10/25 09:44 Tobacco use type Cigarette 01/10/25 09:44 e-Cigarette/Vaping Use Never Used 01/10/25 09:44 Thrive Assessment: Date of Thrive Assessment Date Thrive assessed 07/07/24 01/10/25 09:44 Telehealth Telehealth Telehealth Platform: [facility] Location of provider rendering services: practice address Location of patient: address on file Patient Identification confirmed using: Name, : Yes Telehealth method: video Patient verbally consented to treatment: Yes Patient verbally consented to billing insurance company: Yes Patient informed of any privacy concerns related to visit: Yes Coding Level of Care Code Tele Est Pt Level 4 (36823) Diagnoses Microcytic anemia D50.9 Panlobular emphysema J43.1 COPD type: emphysema Emphysema type: panlobular Oxygen dependent Z99.81 Failure to thrive in adult R62.7 History of multiple cerebrovascular accidents (CVAs) Z86.73 Moderate malnutrition E44.0 Recurrent major depressive disorder, in partial remission F33.41 Active/Remission status: in partial remission Chronic GERD K21.9 Hemiparesis affecting right side as late effect of cerebrovascular accident I69.351 Seizure R56.9 Time Spent (min) 30 Assessment & Plan Assessment & Plan (1) Microcytic anemia: Code(s): D50.9 - Iron deficiency anemia, unspecified Category: Medical (2) COPD (chronic obstructive pulmonary disease): Comment: She does have chronic obstructive pulmonary disease secondary to her long-time smoking. It seems to be fairly stable at this time. Code(s): J44.9 - Chronic obstructive pulmonary disease, unspecified Category: Medical Qualifiers: COPD type: emphysema Emphysema type: panlobular Qualified Code(s): J43.1 - Panlobular emphysema (3) Oxygen dependent: Code(s): Z99.81 - Dependence on supplemental oxygen Category: Medical (4) Failure to thrive in adult: Code(s): R62.7 - Adult failure to thrive Category: Medical (5) History of multiple cerebrovascular accidents (CVAs): Comment: (TIA 11/2011; CVA/left hemiparesis 01/2013 - resolved;b/l L>R [place] infarcts 04/2016, 2023 stroke) Code(s): Z86.73 - Personal history of transient ischemic attack (TIA), and cerebral infarction without residual deficits Category: Medical (6) Moderate malnutrition: Code(s): E44.0 - Moderate protein-calorie malnutrition Category: Medical (7) Major depression, recurrent: Code(s): F33.9 - Major depressive disorder, recurrent, unspecified Category: Medical Qualifiers: Active/Remission status: in partial remission Qualified Code(s): F33.41 - Major depressive disorder, recurrent, in partial remission (8) Chronic GERD: Code(s): K21.9 - Gastro-esophageal reflux disease without esophagitis Category: Medical (9) Hemiparesis affecting right side as late effect of cerebrovascular accident: Code(s): I69.351 - Hemiplegia and hemiparesis following cerebral infarction affecting right dominant side Category: Medical (10) Seizure: Code(s): R56.9 - Unspecified convulsions Category: Medical Plan History - The patient is a 59-year-old female presenting with follow-up for her Chronic Obstructive Pulmonary Disease (COPD). - The patient has been experiencing challenges with her breathing, particularly at home, requiring augmentation to 4.5 liters of oxygen. - She utilizes a nebulizer approximately three to four times daily to manage symptoms. - History reveals retention of carbon dioxide indicating chronic respiratory compromise, with a scheduled appointment with a position classification specialist Dr Gonzalez, a CT scan for further assessment. - Chronic management of Iron Deficiency Anemia, previously significantly improved hemoglobin levels from 8.8 to 10 after treatment with ferrous sulfate, was documented. - The patient occasionally experiences loose stools but is knowledgeable about the darkening of stools due to iron supplements. - Documentation supports stable blood sugar levels, resolved liver enzyme disturbances, normalized Vitamin B12, Vitamin D, and thyroid levels. - The patient continues her regimen with antihypertensive medication (amlodipine), dyslipidemia management with atorvastatin, and stool softeners used at discretion for relief. - Seizure control is maintained with levetiracetam (Keppra) under neurologist care, with a recall of a delayed neurology appointment to next month. - Occasional depression management with sertraline and past fill data indicating yearlong supply sufficiency. Problem List - Chronic Obstructive Pulmonary Disease (COPD) - Iron Deficiency Anemia - Hypertension - Hyperlipidemia - Epilepsy - Gastric Reflux Disease - Depression - Mild Renal Insufficiency Patient Instructions - Continue taking iron supplements as prescribed. - Monitor oxygen levels and adjust the oxygen concentrator at home as discussed. - Follow dietary modifications discussed for balanced nutrition including protein and carbohydrates. - Use the nebulizer up to four times per day as needed for respiratory relief. - Seek immediate medical care if she experiences any acute shortness of breath. - Attend scheduled appointments with a able bodied watchman, neurologist, and follow through with the CT scan for lung assessment. - Repeat blood tests in three months as scheduled. Orders: Orders Complete Blood Count Auto Diff 3 Months D50.9 - Iron deficiency anemia, unspecified, J43.1 - Panlobular emphysema, R56.9 - Unspecified convulsions, R62.7 - Adult failure to thrive Ferritin 3 Months D50.9 - Iron deficiency anemia, unspecified, J43.1 - Panlobular emphysema, R56.9 - Unspecified convulsions, R62.7 - Adult failure to thrive Folate 3 Months D50.9 - Iron deficiency anemia, unspecified, J43.1 - Panlobular emphysema, R56.9 - Unspecified convulsions, R62.7 - Adult failure to thrive Comprehensive Met. Panel 3 Months D50.9 - Iron deficiency anemia, unspecified, J43.1 - Panlobular emphysema, R56.9 - Unspecified convulsions, R62.7 - Adult failure to thrive Medications: Refilled ferrous sulfate 324 mg PO BID 90 days 180 tabs 0RF
== END 2025-01-10 10:21 | disposition home or self-care (01) ==
LOC: HO.HMCC 08:23
PROVIDERS: PCP Internal Medicine; Visit Provider Internal Medicine
DX: J43.1 Panlobular emphysema (principal); I69.351 Hemiplegia and hemiparesis following cerebral infarction affecting right dominant side; R56.9 Unspecified convulsions; D50.9 Iron deficiency anemia, unspecified; Z99.81 Dependence on supplemental oxygen; R62.7 Adult failure to thrive; E44.0 Moderate protein-calorie malnutrition; Z86.73 Personal history of transient ischemic attack (TIA), and cerebral infarction without residual deficits; F33.41 Major depressive disorder, recurrent, in partial remission; K21.9 Gastro-esophageal reflux disease without esophagitis

== ENCOUNTER → 2025-01-10 08:23 | Outpatient (BNVA) | payer OTHER, SELFPAY | PROVIDERS: PCP Internal Medicine; Visit Provider Internal Medicine | DX: Z13.89 Encounter for screening for other disorder (principal) ==

== ENCOUNTER 2025-01-18 14:51 | Outpatient (REF) | payer OTHER, SELFPAY ==
--- NOTE | ~2025-01-18 | CT_ITS ---
CLINICAL HISTORY: F17.210 - Nicotine dependence, cigarettes, uncomplicated --- Additional Notes or Sp ecial Instructions: Needs short term F U . Examination CT lung cancer screening History Screening examination performed for pulmonary nodules Technique Axial CT images of the chest using low-dose technique. Effective radiation dose total: 106.7 mGy-cm, CTDIvol 3.2 mGy. Referring provider counseled the patient on shared decision-making for LDCT screening. Additional counseling was provided on smoking cessation. Comparison: None Findings: Lungs: Subpleural left lower lobe nodule measuring 0.8 x 1.5 x 1.3 cm (series 4, image 96 and series 6, image 48). Other solid nodules measure up to 5 mm (series 4, image 101, right lower lobe). Mild amount of linear scarring, most prominent in the right lower lobe. Mild paraseptal emphysema Confluent centrilobular emphysema. Coronary artery calcifications: Severe Other: Mild height loss L1 with a fracture line near the superior endplate, acute. No retropulsion of fracture fragments or involvement of the posterior elements Limited upper abdomen: Unremarkable Impression: LungRADS 4B - Suspicious: Diagnostic Chest CT with or without contrast, PET/CT, and/or tissue sampling recommended depending on the probability of malignancy and comorbidities. ##L4B# Category 1: Normal; continue annual screening Category 2: Benign appearance or behavior, continue annual screening Category 3: Probably benign, [address] recommended Category 4A: Suspicious, [address] recommended; may consider PET/CT Category 4B: Suspicious, Additional diagnostics and/or tissue sampling recommended Category 4X: Suspicious, Additional diagnostics and/or tissue sampling recommended Category 0: Recalls (incomplete screen due to Incomplete coverage, Noise, Respiratory motion, Expiration, Obscured by acute abnormality) This document has been electronically signed by: Katty Kirk MD on 01/21/2025 16:05:05
--- OUTSIDE RECORDS SUMMARY | 2025-01-18 14:53 | XMS_ITS | Encounter Summary ---
Author Organization [facility] Address [address] [place] [address] Care Team Providers Care Film Editor Supervisor Name Role Phone Chasity Arzate MD Primary Care Provider Odell Rust MD Primary Care Provider [phone] Jim Robin Primary Care Provider Unavailabl e Encounter Details Date Type Department Care Team Description 2014 [employer] PERSON/[facility] Report Medical Records [address] [place] [id number] Abstract, Provider Social History Tobacco Use Types [...] on filedocumented in this encounter Care Teams Film Editor Supervisor Relationship Specialty Start Date End Date Chasity Arzate MD PCP - General Internal Medicine 09/18/14 06/30/15 Odell Kitchen MD [address] [place] [id number] PCP - General Internal Medicine 07/01/15 06/22/16 Jim Robin [address] [place] [address] PCP - General Internal Medicine 06/23/16 documented as of this encounter
--- OUTSIDE RECORDS SUMMARY | 2025-01-18 14:53 | XMS_ITS | Data Portability ---
Author Organization [place] [facility], [facility] Address [address] [place] [address] Care Team Providers Care Marketing Services Specialist Name Role Phone JANNA COOLEY Primary Care Provider [phone] Assessment Encounter Date Assessment Date Assessment LastModified by Organization Details LastModified Time 10/30/2019 10/30/2019 Overview/History :Fernando melvin is a 54-year-old female new to [facility]. She has a medical history significant for coronary artery disease, status post silent ID, hypertension, hyperlipidemia, COPD, recent treatment for pneumonia and CVA in the past. She contacted [facility] after noting that her toenails were discolored. [...] the patient if not improving to contact [facility] her PCP for reevaluation. Did also discuss the patient's blood pressure was a bit elevated, she reports she had been on blood pressure medication in the past but is not presently. Given her hypertension and history of coronary disease with an ID in the past a beta pedro would likely be a good option for her, would defer this to her primary care physician. In order to obtain further information and compare any laboratory results/values, I have accessed patient records on the [employer] [employer]. This information was pertinent in my medical decision making today. Time On Scene with Patient: 00:25:54 [email or web address] Not available 10/30/2019 18:09:18 Plan of Treatment Reminders Order Date Submit Date Provider Last Modified By Organization Details Last Modified Time Details Appointments None recorded. Lab None recorded. Referral None recorded. Procedures None recorded. Surgeries None recorded. Imaging None recorded. Medication Orders Lamisil AT 1 % topical cream 2019 020 INTERFACE [employer] [facility] #[id number], [address] [place] [address], [id number], 0 13:02:27 Patient TargetsNo targets recorded. Patient Instructions Encounter Date Encounter Id Patient Instructions Last Modified By Organization Details Last Modified Time 10/30/2019 [id number] toenail fungus: care instructions [email or web address] Not available 10/30/2019 13:02:19 WE CAME TO SEE [facility] TODAY FOR CONCERNS OF FUNGAL INFECTION OF YOUR TOES. YOU ARE BEING PRESCRIBED A TOPICAL ANTIFUNGAL FOR THIS. YOU ARE TO APPLY THIS TO CLEAN FEET TWICE DAILY FOR TWO WEEKS. IF THIS IS NOT IMPROVING BY 2 WEEKS PLEASE CONTACT PCP YOU MAY NEED ORAL TREATMENT. Thank you for your visit with [facility] today. You were seen today for treatment [...] condition between 8am-10pm, please call [facility] at [phone] to help navigate your care. [email or web address] Not available 10/30/2019 13:01:29 Reason for Referral None Reported. Medical Equipment None Reported. Allergies Allergen ID Allergen Name Allergen Category Reaction Reaction Severity Criticality Documentation Date Start Date Code Code System Note Provider Name and Address Organization Details Recorded Time 55307 Product containin g penicilli n (product) medicatio n Not available Not available Not available 10/30/2019 10411 8001 SNOMED BOO LIMA NP [address] [place], [address], [place] [facility] 0 12:40:59 Medications [...] Organization Details LastModified Time Mother Hypertensive disorder [email or web address] Not available 12:45:53 Medical History Condition Response [...] SNOMED-CT Code Diagnosis ICD10 Code Diagnosis Note [id number] BOO LIMA [facility] [address] [facility] [address] 10/30/2019 12:39:31 10/31/2019 12:21:43 Onychomycosis of toenails 936616613 B35.1 Essential hypertension 74492135 I10 Health Concerns Section Related Observation LastModified by Organization Detai ls LastModified Time None Recorded Concern Status LastModified by Organization Details LastModified Time None Recorded Advance Directives Directive None Recorded Payers Insurance Date Sequence Insurance Name Policy Number Policy Duran Covered Member ID Duran Member ID Guarantor Name 10/31/2019 1 [facility] NET PLAN (MEDICAID HMO) NAVYA Bragg [id number] 10/31/2019 1 [place] [facility] Oxana Bragg [id number] 10/29/2019 1 *SELF PAY* Oxana Bragg [id number] Notes Date Note Type Note Provider Name and Address Organization Details Recorded Time 10/30/2019 text/html This is a 54-year-old female unknown [facility] with a medical history significant for asthma, COPD, coronary artery disease status post silent ID, depression, hypolipidemia, hypertension and stroke. She contacted [...] fevers or chills. BOO LIMA NP [address], [place], [address], [place] [facility] 10/30/2019 18:09:22 OBGyn Episode No OBEpisode recorded.
--- OUTSIDE RECORDS SUMMARY | 2025-01-18 14:53 | XMS_ITS | Data Portability ---
Author Organization [place] [email or web address] [facility], Main Office Address [address] [place] [address] Care Team Providers Care Emergency Room Physician Name Role Phone [facility] OTHER Assessment No assessment recorded. Plan of [...] and Address Organization Details Recorded Time [place] 911369599 Active 2023 CEDRICK DONOHUE, BOOK SALESMAN [address] , [address], [place], [address], [employer] 4 08:31:53 Cerebrova scular accident 938186159 Active 2023 right side weakness CEDRICK DONOHUE, BOOK SALESMAN [address] [facility], [address], [place], [address], [employer] 4 08:32:49 Chronic obstructi ve pulmonary disease 97518648 Active 2023 CEDRICK DONOHUE, BOOK SALESMAN [address], [address], [place], [address], [employer] 4 08:32:18 Wound of skin 623820201 Active 2023 skin tear right elbow CEDRICK DONOHUE, BOOK SALESMAN [address], [address], [place], [address], [employer] 4 08:33:14 Nicotine dependenc e 35176016 Active 2023 CEDRICK DONOHUE NP [address], [address], [place], [address], [facility] [employer] [facility] 4 08:38:47 Asthma 857859630 Active 2023 CEDRICK DONOHUE NP [address], [address], [place], [address], [facility] [employer] [facility] 4 08:38:52 Anemia 531264171 Active 2023 CEDRICK DONOHUE NP [address], [place], [address], [facility] [email or web address] [facility] 4 08:38:57 Mixed anxiety and depressiv e disorder 313419138 Active 2023 CEDRICK DONOHUE NP [address], [address], [place], [address], [facility] [employer] 4 08:39:11 Essential hypertens ion 24320542 Active 2023 CEDRICK DONOHUE NP [address] [facility], [address], [place], [address], [facility] [employer] 4 08:45:28 Pain of right hip joint 781149463447 102 Active 2023 CEDRICK DONOHUE NP [address] [facility], [address], [place], [address], [facility] [employer] 4 08:46:02 Seizure disorder 785739725 Active 2023 CEDRICK DONOHUE NP [address] [facility], [address], [place], [address], [facility] [employer] 4 08:49:03 Gastroeso phageal reflux disease without esophagit is 787341051 Active 2023 CEDRICK DONOHUE NP [address] [facility], [address], [place], [address], [employer] 4 08:49:54 Problem Notes None recorded. Medical Equipment None Reported. Allergies Allergen ID Allergen Name Allergen Category Reaction Reaction Severity Criticality Documentation Date Start Date Code Code System Note Provider Name and Address Organization Details Recorded Time 43930 crab allergeni c extract food Not available Not available Not available 10/13/2023 55198 0 RxNorm CEDRICK DONOHUE NP [address] [facility], [address], [place], [address], [facility] [employer] 4 08:31:22 24636 Product containin g penicilli n (product) medicatio n Not available Not available Not available 10/13/2023 55649 8001 SNOMED CEDRICK DONOHUE NP [address] [facility], [address], [place], [address], [facility] [employer] 4 08:31:33 Medications Not known to be [...] mm[Hg] 58 mm[Hg] CEDRICK DONOHUE NP [address] [facility], [address], [place], [address], [place] [employer] 4 08:30:44 Date Recorded Systolic blood pressure Diastolic blood pressure Provider Name and Address Organization Details Last Updated DateTime 10/15/2023 130 mm[Hg] 79 mm[Hg] Orestes Quezada MD [address] [facility], [address], [place], [address], [place] [employer] 10/15/2023 12:04:01 Social History Question Answer Notes LastModified by Organizat ion Details LastModified Time Tobacco Smoking Status Current Some Day Smoker CEDRICK DONOHUE NP [address] [facility], [address], [place], [address], [facility] [employer] 10/13/2023 08:35:33 Do You Have An Advance [...] adjuvanted, quadrivalent, PF 2 completed Zeny lobato [facility] 12/01/2023 11:56:47 pneumococcal polysaccharide PPV23 9 completed Zeny lobato [facility] 12/01/2023 11:56:57 Past Encounters Encounter ID Performer Location Encounter Start Date Encounter Closed Date Diagnosis/Indication Diagnosis SNOMED-CT Code Diagnosis ICD10 Code Diagnosis Note [id number] CEDRICK DONOHUE NP [facility] [address] [place] [address] 10/13/2023 08:16:39 10/17/2023 13:39:12 Falls 099341241 R29.6 PT OT eval and treatfall precaution sfrequent safety checks Cerebrovas cular accident 885344540 I63.9 lovenox 40 mg sub cut until more activeasa 81 mg dailyatorv astatin 40 mg dailymonit or neuros Wound of skin 378025335 T14.8XXA wound consultmon itor for any infection Chronic ob structive pulmonary disease 10224160 J44.9 albuterol inhaler q6hr prnduoneb tid prnmonitor resp status Asthma 001162970 J45.90 9 albuterol inhaler q6hr prnduoneb tid prnmonitor resp status Mixed anxi ety and depressive disorder 981910716 F41.8 remeron 30 mg hszoloft 25 mg dailypsych prn Nicotine dependence 5629 4008 F17.200 offer cessation Anemia 913810021 D64.9 vit c 250 mg bidiron 324 mg dailyfolic acid 1 mg dailymonit or labs Essential hypertension 19801838 I10 amlodipine 5 mg dailymetop rolol 25 mg bidmonitor bp Pain of ri ght hip joint 7498452168 40735 M25.551 tylenol prntramado l 25 mg q6hr prn Seizure disorder 5694569 02 G40.909 keppra 500 mg bidmonitor neuros Gastroesop hageal reflux disease without esophagitis 528146554 K21.9 omeprazole 20 mg daily [id number] Orestes Quezada MD [facility] on [address] [place] [address] 10/15/2023 12:03:28 10/17/2023 14:05:43 Closed fracture of hip 307226291 S72.091D right impacted subcapital fx right proximal femurEval by ortho and underwent closed reduction and percutaneo us pinningfol low ortho recs and update with concernsPT OT eval and treatloven ox for DVT prophylaxi sincision site cleanscrip ts written for oxycodone 5 mg q 6 prn pain with second E-kit script writtenupd ate ortho with concern [place] 251658414 R29.6 PT OT eval and treatsee abovemonit or fall risk Cerebrovas cular accident 690713677 I63.89 hx of CVA with residual right sided hemiparesi scurrently on lovenox for DVT prophylaxi smaintaine d onlipitor 40 mg qdsee above Chronic ob structive pulmonary disease 77991711 J41.1 on O2 3 lpm at baselinemo nitor respirator y status on current medspulmon ology eval prn Mixed anxi ety and depressive disorder 687407317 F41.8 remeron 30 mg hszoloft 25 mg qdcontinue dmonitor moodpsych prn Nicotine dependence 5629 4008 F17.210 hx of quit priornow on O2 for COPD Anemia 464559837 D50.0 multifacto rial anemia required 1 unit pRBC post opnow on iron supplement monitor cbc and need for further transfusio niron studies prn Essential hypertension 44338795 I10 norvasc 5 mg qdmetoprol ol 25 mg bidmonitor bp Seizure disorder 5074298 02 G40.909 G40.89 carrying dxmaintain ed onkeppra 500 mg bidmonitor for activity Gastroesop hageal reflux disease without esophagitis 407960446 K21.9 omeprazole 20 mg qdmonitor for sx relief Coronary arteriosclerosis 85936900 I25.10 with hx of takotsubo cardiomyop athylipito r 40 mg qdASA 81 mg qdmetoprol ol 25 mg bidmonitor for sxcards eval prn Standard c hest X-ray abnormal 346338754 R93.89 stable opacity to repeat imaging in 3 months Health Concerns Section Related Observation LastModified by Organization Detai ls LastModified Time None Recorded Concern Status LastModified by Organization Details LastModified Time None Recorded Advance Directives Directive Y: Payers Encounter Date Sequence Insurance Name Policy Number Policy Duran Covered Member ID Duran Member ID Guarantor Name 10/13/2023 1 [facility] (MEDICAID REPLACEMENT - HMO) [facility] Oxana Bragg [id number] Oxana Bragg 10/15/2023 1 [facility] (MEDICAID REPLACEMENT - HMO) [facility] Oxana Bragg [id number] Oxana Guiel Notes Date Note Type Note [...] tramadol for her. CEDRICK DONOHUE, MONSTER [address] [facility], [address], [place], [address], [facility] - [facility] 10/13/2023 09:02:01 10/15/2023 text/html Patient is [...] care and therapy Orestes Quezada MD [address] [facility], [address], [place], [address], [facility] - [employer] 10/15/2023 13:32:26 OBGyn Episode No OBEpisode recorded.
--- OUTSIDE RECORDS SUMMARY | 2025-01-18 14:53 | XMS_ITS | Encounter Summary ---
Author Organization [facility] Address [address] [place] [address] Care Team Providers Care Cylindrical Mixer Name Role Phone Chasity Arzate MD Primary Care Provider Odell Rust MD Primary Care Provider [phone] Jim Robin Primary Care Provider Unavailabl e Reason for Visit * Reason Onset Date Comments TEST RESULTS 04/14/2015 Encounter Details Date Type Department Care Team Description 04/14/2015 Telephone Adult Medicine B - [place] [address] [place] [address] Chasity Arzate MD TEST RESULTS Social History [...] on filedocumented in this encounter Care Teams Cylindrical Mixer Relationship Specialty Start Date End Date Chasity Arzate MD PCP - General Internal Medicine 09/18/14 06/30/15 Odell Kitchen MD [address] [place] [address] PCP - General Internal Medicine 07/01/15 06/22/16 Jim Robin [address] [place] [address] PCP - General Internal Medicine 06/23/16 documented as of this encounter
--- OUTSIDE RECORDS SUMMARY | 2025-01-18 14:53 | XMS_ITS | Encounter Summary ---
Author Organization [facility] Address [address] [place] [address] Care Team Providers Care Card Room Manager Name Role Phone Chasity Arzate MD Primary Care Provider Odell Rust MD Primary Care Provider [phone] Jim Robin Primary Care Provider Unavailabl e Reason for Visit * Reason Onset Date Comments Appointment Cancelled 05/05/2015 Encounter Details Date Type Department Care Team Description 05/05/2015 Telephone Adult Medicine [facility] [address] [place] [address] Chasity Arzate MD Appointment Cancelled Social History [...] on filedocumented in this encounter Care Teams Card Room Manager Relationship Specialty Start Date End Date Chasity Arzate MD PCP - General Internal Medicine 09/18/14 06/30/15 Odell Kitchen MD [address] [place] [address] PCP - General Internal Medicine 07/01/15 06/22/16 Jim Robin [address] [place] [address] PCP - General Internal Medicine 06/23/16 documented as of this encounter
--- OUTSIDE RECORDS SUMMARY | 2025-01-18 14:53 | XMS_ITS | Encounter Summary ---
Author Organization [facility] Address [address] [place] [address] Care Team Providers Care Goodwill Representative Name Role Phone Chasity Arzate MD Primary Care Provider Odell Rust MD Primary Care Provider [phone] Jim Robin Primary Care Provider Unavailabl e Reason for Visit * Reason Onset Date Comments Appointment-Internal Referral 02/05/2015 Encounter Details Date Type Department Care Team Description 02/05/2015 Telephone Cardiology - [address] [address] Chasity Arzate MD Appointment-Internal Referral Social History [...] on filedocumented in this encounter Care Teams Goodwill Representative Relationship Specialty Start Date End Date Chasity Arzate MD PCP - General Internal Medicine 09/18/14 06/30/15 Odell Kitchen MD [address] [place] [address] PCP - General Internal Medicine 07/01/15 06/22/16 Jim Robin [address] [place] [address] PCP - General Internal Medicine 06/23/16 documented as of this encounter
== END 2025-01-18 14:52 | disposition home or self-care (01) ==
LOC: HO.CT 14:51
PROVIDERS: PCP Internal Medicine; Visit Provider Internal Medicine
DX: R91.1 Solitary pulmonary nodule (principal); F17.210 Nicotine dependence, cigarettes, uncomplicated
CPT/HCPCS: 71250

== ENCOUNTER → 2025-01-18 14:56 | Outpatient (BNV) | payer OTHER, SELFPAY | PROVIDERS: PCP Internal Medicine; Visit Provider Radiology Diagnostic Radiology | DX: Z12.2 Encounter for screening for malignant neoplasm of respiratory organs (principal); F17.210 Nicotine dependence, cigarettes, uncomplicated | CPT/HCPCS: 71250 ==

== ENCOUNTER 2025-01-22 14:43 | Outpatient (AMB) | payer OTHER, SELFPAY ==
--- NOTE | 2025-01-22 14:54 | A.OFFVIS_ITS ---
Vital Signs 01/22/25 14:55 Height 5 ft 1 in Weight 106 lb 14.787 oz BMI 20.2 BP 138/72 Blood Pressure Location Lt brachial Position Sitting Pulse 7 L Pulse Source Pulse Oximeter Pulse Oximetry (%) 95 Oxygen Delivery Method Nasal Cannula Oxygen Flow Rate 3 Intake Visit Reasons: copd Intake Note: pt is here for follow up and states her breathing is short at times, with some coughing, any exertion she will drop her oxygen, she does have bubbler on concentrator now. oxygen is 24 hour with no breaks. she is asking if Trelegy/Breztri would be a good inhaler for her. Operators Teacher Required: No Allergies crab Allergy (Unknown, Verified 01/22/25 15:29) Hives penicillin V Allergy (Unknown, Verified 01/22/25 15:29) hives Penicillins [PENICILLINS] Allergy (Unknown, Verified 01/22/25 15:29) hives SEASONAL ALLERGIES Allergy (Mild, Uncoded 01/22/25 15:29) RUNNY NOSE Medication List - Last Reconciled 01/22/25 by Juan Carlos Gonzalez MD albuterol sulfate 90 mcg/actuation 2 puffs PO Q6H PRN 30 days amlodipine 5 mg PO DAILY 90 days aspirin (Adult Low Dose Aspirin) 81 mg PO DAILY atorvastatin 40 mg PO BEDTIME Boost High Protein (food supplemt, lactose-reduced) 1 ea PO BID NS [Diapers 3 times a day] docusate sodium 100 mg PO DAILY PRN ferrous sulfate 324 mg PO BID 90 days folic acid 1 mg PO DAILY gabapentin 300 mg PO BID 90 days ipratropium-albuterol 0.5 mg-3 mg(2.5 mg base)/3 mL 3 mL inhalation QID levetiracetam 500 mg PO BID 180 days metoprolol tartrate 25 mg PO BID 90 days mirtazapine 30 mg PO BEDTIME 90 days omeprazole 20 mg PO DAILY@0630 [orthotic consult Orthotic consult to right hand as directed] [Orthotic consult orthotic consult to right foot as directed.] polyethylene glycol 3350 17 grams PO DAILY PRN sertraline 50 mg PO DAILY Do you need a note to return to daycare/school/sports/work: No HPI HPI copd: Details: LIZETH , 59 YEARS OLD FEMALE POST STROKE ON WITH SEIZURE DISORDER, WITH SEVERE IMPAIRMENT OF LOCOMOTION AND USES WHEELCHAIR IN THE HOUSE AND COMING OUT WHO THE OFFICE. SHE IS A CASE OF SEVERE CHRONIC OBSTRUCTIVE PULMONARY. DISEASE DUE TO PAST SMOKING AND SHE IS ALSO BEING MONITORED CLOSELY FOR PULMONARY NODULES. FAR COPD IS CONCERNED IT IS RELATIVELY STABLE. SHE USES IPRATROPIUM-ALBUTEROL SOLUTION IN THE NEBULIZER 4 TIMES A DAY, AND HARDLY NEEDS TO USE THE ALBUTEROL HFA. SHE IS ON OXYGEN 24 HOURS A DAY. CURRENTLY USING STATIONARY CONCENTRATOR AT HOME AND SHE HAS TO USE A LONG TUBE , 50 FT LONG TO BE ABLE TO USE IT IN THE BEDROOM. SO SHE NEEDS AT LEAST 4 L/MINUTE OR SOMETIME 4.5 L/MINUTE TO KEEP THE O2 SAT ABOVE 90%. WHEN SHE IS USING PORTABLE CYLINDER THEN EVEN 2 L/MINUTE IS OKAY. [facility] Medical History Seizure (~11/2021) History of multiple cerebrovascular accidents (CVAs) Hemiparesis affecting right side as late effect of cerebrovascular accident Aphasia History of non-ST elevation myocardial infarction (NSTEMI) (~11/2021) History of acute respiratory distress syndrome (ARDS) (~08/2021) Coronary artery disease Takotsubo cardiomyopathy COPD (chronic obstructive pulmonary disease) Respiratory failure with hypoxia Oxygen dependent Personal history of nicotine dependence Hemoptysis Closed subcapital fracture of femur Cocaine abuse Hypertensive emergency Normocytic anemia History of drug abuse Cocaine abuse Major depression, recurrent Acute CHF (congestive heart failure) Hypercapnic respiratory failure, chronic Asymptomatic carotid artery stenosis with infarction Chronic GERD Environmental allergies Anxiety, generalized Lipid disorder Asthma, moderate Surgical History History of left-sided carotid endarterectomy (~09/2012) History of tonsillectomy and adenoidectomy Family History Father Substance abuse Mother Brain cancer Maternal Grandfather History of heart attack Maternal Grandmother History of heart attack Paternal Grandfather No problems noted. Paternal Grandmother No problems noted. Brother No problems noted. Brother No problems noted. Son No problems noted. Daughter No problems noted. Other Mental health disorder Social History Household Members: None Household Members Other:: daughter Housing: Apartment Do you presently have visiting nurse or other home services: No Unable to assess alcohol history related to: Refusing to respond Alcohol intake: former Patient Tobacco Use Status: Former Tobacco user Tobacco use type: Cigarette Cigarettes Per Day: 2 Years Smoked: COUPLE YEAR AGO PER PT e-Cigarette/Vaping Use: Never Used Second Hand Smoke Exposure: No Advance Directives Date on File: 11/25/21 service: No Current occupational status: disabled Cognitive needs: No Hearing needs: No Vision needs: No Review of Systems Const All systems reviewed & are unremarkable except as noted in HPI and below Eyes Reports no additional complaints ENT Reports no additional complaints (Is set at occasional nasal bleed due to irritation by the nasal cannula) Card Denies chest pain and Denies dyspnea on exertion Resp Denies dyspnea on exertion GI Reports heartburn (Symptoms of GERD treated with omeprazole) Reports no additional complaints Musc Reports abnormal gait (Impaired gait due to right hemiplegia), Reports muscle weakness and Reports other (Right-sided hemiplegia) Skin/Breast Reports system reviewed and no additional complaints, except as documented Neuro Reports abnormal gait (Impaired gait due to right hemiplegia) Psych Reports depression Endo Reports no additional complaints Antwan/Lymph Reports no additional complaints Physical Exam Vital Signs: Last Vital Signs Pulse 7 L 01/22/25 14:55 BP 138/72 01/22/25 14:55 Pulse Ox 95 01/22/25 14:55 Oxygen Delivery Method Nasal Cannula 01/22/25 14:55 Oxygen Flow Rate 3 01/22/25 14:55 BMI result Body Mass Index 20.2 Const Other: Chronically sick looking, of a thin build, and somewhat emaciated. General: comfortable (in wheelchair ), no acute distress, alert and awake Orientation/consciousness: patient oriented x3 HEENT Head: Yes normal to inspection and Yes other (ECCHYMOSIS, ON THE RIGHT SIDE OF THE FOREHEAD. NO HEMATOMA) General nose exam: No nasal polyps present and No nasal discharge present Face and sinus: Yes sinuses nontender Mouth: oropharynx normal Throat: Yes posterior oropharynx normal Eyes General: appearance normal, both eyes and all related structures Neck Neck: Yes normal visual inspection, Yes no lymphadenopathy, Yes trachea midline and Yes no JVD Thyroid: Thyroid normal Chest Chest palpation & inspection: normal inspection of the chest, normal palpation of entire chest wall and no tenderness Resp Other: Percussion note is hyper resonant. Breath sounds are distant with prolonged expiratory phase. No wheezes or crepitations are heard. Cardio Palpation: normal PMI Rate: regular rate Rhythm: regular rhythm Heart sounds: no gallops and no murmurs GI Palpation (GI): Soft to palpation, nontender, No hepatosplenomegaly present and no masses Auscultation: normal bowel sounds Back/Spine/Pelvis Thoracic/Lumbar Spine: thoracic and lumbar spine normal to inspection and thoraco-lumbar ROM limited Skin General skin exam: no rashes or lesions noted Neuro General: patient oriented x3 and No no focal motor deficits (Has right hemiplegia) Cranial nerves: Yes CN's II-XII intact bilaterally Extrem General: Yes normal to inspection, Yes no clubbing, cyanosis or edema and Yes no calf tenderness Psych Appearance: grossly normal and well kempt Speech and movement: Normal speech and movement present Results Reviewed Results Reviewed: CT SCAN OF THE CHEST ON 01/18 Impression: Nodule in lt lower lobe 0.7 cmx 1.5 cm. grown in size is worrisome LungRADS 4B - Suspicious: Diagnostic Chest CT with or without contrast, PET/CT, and/or tissue sampling recommended depending on the probability of malignancy and comorbidities. ##L4B# Assessment & Plan Assessment & Plan (1) COPD (chronic obstructive pulmonary disease): Comment: She does have chronic obstructive pulmonary disease secondary to her long-time smoking. It seems to be fairly stable at this time. Code(s): J44.9 - Chronic obstructive pulmonary disease, unspecified Category: Medical Qualifiers: COPD type: emphysema Emphysema type: panlobular Qualified Code(s): J43.1 - Panlobular emphysema Plan: Continue to use ipratropium-albuterol solution 3 ml in the nebulizer Q 6 hours while awake ( TID ) I told her that this treatment is more effective for her than the inhalers, When she goes outdoors she can carry Ventolin. Inhaler with her and use p.r.n. (2) Respiratory failure with hypoxia: Comment: Patient does have chronic hypoxemia and is dependent on oxygen. Using 3-4 L/minute continuously, Has issue with the stationary concentrator, and even with 4 L/minute her O2 sats however around 90%, while with the cylinders she has no problem, This issue seems to be due to long tube that she has to use . For oxygen in her bedroom Code(s): J96.91 - Respiratory failure, unspecified with hypoxia Category: Medical Plan: Advised that it is okay to use the O2 at 4 L/minute when she uses stationary concentrator. With the portable cylinder . 2-3 L/minute is okay (3) Pulmonary nodule 1 cm or greater in diameter: Comment: She does have a few pulmonary nodules and 1 being close to 1 cm. PET SCAN AT [facility] , THE PULMONARY NODULES IN THE RIGHT LOWER LOBE WELL IN LEFT LOWER LOBE FDG NEGATIVE . A repeat CT scan of the chest now shows that the nodule in left lower lobe is slightly increased in size . As noted above the same nodule was FDG negative on the PET scan. Code(s): R91.1 - Solitary pulmonary nodule Category: Medical Plan: Discuss about the pulmonary nodules, and the current results of CT scan. The plan is to repeat CT scan of the chest in 3 months from now . Orders: Orders CT chest wo IV con 3 Months R91.1 - Solitary pulmonary nodule Coding Level of Care Code Est Pt Level 4 (98944) Diagnoses Panlobular emphysema J43.1 COPD type: emphysema Emphysema type: panlobular Respiratory failure with hypoxia J96.91 Pulmonary nodule 1 cm or greater in diameter R91.1
[2025-01-22 14:55] VITALS: BP 138/72; PULSE 7; O2SAT 95; BMI 20.2
--- OUTSIDE RECORDS SUMMARY | 2025-01-22 15:50 | XMS_ITS | Encounter Summary ---
Author Organization [facility] Address [address] [place] [address] Care Team Providers Care Wildlife Ecology Professor Name Role Phone Chasity Arzate MD Primary Care Provider Odell Rust MD Primary Care Provider [phone] Jim Robin Primary Care Provider Unavailabl e Encounter Details Date Type Department Care Team Description 2014 Controlled Substance Contract with [facility] Medical Records [address] [place] [id number] Abstract, Provider Social History Tobacco Use Types [...] on filedocumented in this encounter Care Teams Wildlife Ecology Professor Relationship Specialty Start Date End Date Chasity Arzate MD PCP - General Internal Medicine 09/18/14 06/30/15 Odell Kitchen MD [address] [place] [id number] PCP - General Internal Medicine 07/01/15 06/22/16 Jim Robin [address] [place] [id number] PCP - General Internal Medicine 06/23/16 documented as of this encounter
--- OUTSIDE RECORDS SUMMARY | 2025-01-22 15:50 | XMS_ITS | Encounter Summary ---
Author Organization [facility] Address [address] [place] [address] Care Team Providers Care Jewel Stringer Name Role Phone Chasity Arzate MD Primary Care Provider Odell Rust MD Primary Care Provider [phone] Jim Robin Primary Care Provider Unavailabl e Reason for Visit * Reason Onset Date Comments TEST RESULTS 04/14/2015 Encounter Details Date Type Department Care Team Description 04/14/2015 Telephone Adult Medicine B - [place] [address] [place] [address] Chasity Arzate MD TEST RESULTS Social History [...] on filedocumented in this encounter Care Teams Jewel Stringer Relationship Specialty Start Date End Date Chasity Arzate MD PCP - General Internal Medicine 09/18/14 06/30/15 Odell Kitchen MD [address] [place] [id number] PCP - General Internal Medicine 07/01/15 06/22/16 Jim Robin [address] [place] [id number] PCP - General Internal Medicine 06/23/16 documented as of this encounter
--- OUTSIDE RECORDS SUMMARY | 2025-01-22 15:50 | XMS_ITS | Encounter Summary ---
Author Organization [facility] Address [address] [place] [address] Care Team Providers Care Data Warehousing Manager Name Role Phone Chasity Arzate MD Primary Care Provider Odell Rust MD Primary Care Provider [phone] Jim Robin Primary Care Provider Unavailabl e Reason for Visit * Reason Onset Date Comments Provider Call Back 04/02/2015 Encounter Details Date Type Department Care Team Description 04/02/2015 Telephone Adult Medicine - [place] [address] [place] [address] Chasity Arzate MD Provider Call Back Social [...] Miscellaneous Notes * Telephone Encounter - Esperanza gR L.P.N. - 04/02/2015 9:56 AM EDT [place] police did confirm the medication being stolen but she can not give out any police report to anyone. Msg to PCP * Telephone Encounter - Zeenat Bermudez - 04/02/2015 9:40 AM EDT Caller requesting call back from provider: Is the caller the patient? NO If caller is not the patient, what is the callers name? Chasity from [facility] dept. Callers relationship to patient? N/A If [...] on filedocumented in this encounter Care Teams Data Warehousing Manager Relationship Specialty Start Date End Date Chasity Arzate MD PCP - General Internal Medicine 09/18/14 06/30/15 Odell Kitchen MD [address] [place] [id number] PCP - General Internal Medicine 07/01/15 06/22/16 Jim Robin [address] [place] [address] PCP - General Internal Medicine 06/23/16 documented as of this encounter
--- OUTSIDE RECORDS SUMMARY | 2025-01-22 15:50 | XMS_ITS | Encounter Summary ---
Author Organization [facility] Address [address] [place] [address] Care Team Providers Care Tankman Name Role Phone Chasity Arzate MD Primary Care Provider Odell Rust MD Primary Care Provider [phone] Jim Robin Primary Care Provider Unavailabl e Reason for Visit * Reason Onset Date Comments Appointment-Internal Referral 02/05/2015 Encounter Details Date Type Department Care Team Description 02/05/2015 Telephone Cardiology - [address] [address] Chasity Arzate MD Appointment-Internal Referral Social History [...] on filedocumented in this encounter Care Teams Tankman Relationship Specialty Start Date End Date Chasity Arzate MD PCP - General Internal Medicine 09/18/14 06/30/15 Odell Kitchen MD [address] [place] [id number] PCP - General Internal Medicine 07/01/15 06/22/16 Jim Robin [address] [place] [id number] PCP - General Internal Medicine 06/23/16 documented as of this encounter
== END 2025-01-22 15:29 | disposition home or self-care (01) ==
LOC: HO.HPS 14:44
PROVIDERS: PCP Internal Medicine; Visit Provider Internal Medicine
DX: J43.1 Panlobular emphysema (principal); J96.91 Respiratory failure, unspecified with hypoxia; R91.1 Solitary pulmonary nodule
CPT/HCPCS: 99214

== ENCOUNTER → 2025-01-22 14:43 | Outpatient (BNVA) | payer OTHER, SELFPAY | PROVIDERS: PCP Internal Medicine; Visit Provider Internal Medicine | DX: J43.1 Panlobular emphysema (principal); J96.91 Respiratory failure, unspecified with hypoxia; R91.1 Solitary pulmonary nodule | CPT/HCPCS: 99212 ==

== ENCOUNTER 2025-02-18 13:41 | Outpatient (AMB) | payer OTHER, SELFPAY ==
[2025-02-18 13:51] VITALS: BP 128/70
--- NOTE | 2025-02-18 13:51 | MHC.OFFVIS ---
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 Brianna Gonzalez for Convulsions Allergies crab Allergy (Unknown, Verified 02/18/25 13:52) Hives penicillin V Allergy (Unknown, Verified 02/18/25 13:52) hives Penicillins [PENICILLINS] Allergy (Unknown, Verified 02/18/25 13:52) hives SEASONAL ALLERGIES Allergy (Mild, Uncoded 02/18/25 13:52) RUNNY NOSE Medication List - Last Reconciled 02/18/25 by Miranda Avilez MD albuterol sulfate 90 mcg/actuation 2 puffs PO Q6H PRN 30 days amlodipine 5 mg PO DAILY 90 days aspirin (Adult Low Dose Aspirin) 81 mg PO DAILY atorvastatin 40 mg PO BEDTIME Boost High Protein (food supplemt, lactose-reduced) 1 ea PO BID NS [Diapers 3 times a day] docusate sodium 100 mg PO DAILY PRN ferrous sulfate 324 mg PO BID 90 days folic acid 1 mg PO DAILY gabapentin 300 mg PO BID 90 days ipratropium-albuterol 0.5 mg-3 mg(2.5 mg base)/3 mL 3 mL inhalation QID levetiracetam 500 mg PO BID 180 days metoprolol tartrate 25 mg PO BID 90 days mirtazapine 30 mg PO BEDTIME 90 days omeprazole 20 mg PO DAILY@0630 [orthotic consult Orthotic consult to right hand as directed] [Orthotic consult orthotic consult to right foot as directed.] polyethylene glycol 3350 17 grams PO DAILY PRN sertraline 50 mg PO DAILY HPI Comments Details: 59y/o Right handed comes for further management of seizures.History was difficult because of aphasia In 2016 she had a CVA with Right Hemiplegia, aphasia ( Left MCA infarct - Left ICA occlusion) - with little recovery . Now she has some movement in her right leg. she had seizure like episodes 3-4 years ago and was started on keppra ABout 1 year ago- she was found in the bathroom floor- eyes were open but was confused.New CVA was ruled out . she had 2 significant episodes when she ran out of her keppra prescription. when she is taking her medications regularly there are no episodes of seizures.She has occasional aura- unable to describe . [facility] Medical History Seizure (~11/2021) History of multiple cerebrovascular accidents (CVAs) Hemiparesis affecting right side as late effect of cerebrovascular accident Aphasia History of non-ST elevation myocardial infarction (NSTEMI) (~11/2021) History of acute respiratory distress syndrome (ARDS) (~08/2021) Coronary artery disease Takotsubo cardiomyopathy COPD (chronic obstructive pulmonary disease) Respiratory failure with hypoxia Oxygen dependent Personal history of nicotine dependence Hemoptysis Closed subcapital fracture of femur Cocaine abuse Hypertensive emergency Normocytic anemia History of drug abuse Cocaine abuse Major depression, recurrent Acute CHF (congestive heart failure) Hypercapnic respiratory failure, chronic Asymptomatic carotid artery stenosis with infarction Chronic GERD Environmental allergies Anxiety, generalized Lipid disorder Asthma, moderate Surgical History History of left-sided carotid endarterectomy (~09/2012) History of tonsillectomy and adenoidectomy Family History Father Substance abuse Mother Brain cancer Maternal Grandfather History of heart attack Maternal Grandmother History of heart attack Paternal Grandfather No problems noted. Paternal Grandmother No problems noted. Brother No problems noted. Brother No problems noted. Son No problems noted. Daughter No problems noted. Other Mental health disorder Social History Household Members: None Household Members Other:: daughter Housing: Apartment Do you presently have visiting nurse or other home services: No Unable to assess alcohol history related to: Refusing to respond Alcohol intake: former Patient Tobacco Use Status: Former Tobacco user Tobacco use type: Cigarette Cigarettes Per Day: 2 Years Smoked: COUPLE YEAR AGO PER PT e-Cigarette/Vaping Use: Never Used Second Hand Smoke Exposure: No Advance Directives Date on File: 11/25/21 service: No Current occupational status: disabled Cognitive needs: No Hearing needs: No Vision needs: No Physical Exam Vital Signs: Last Vital Signs BP 128/70 02/18/25 13:51 Const General: cooperative and comfortable Nutritional Appearance: average body habitus Orientation/consciousness: oriented to person and oriented to place Neuro Other: right facial paresis Apasia - expressive Good with comprehension Right UE 0/5 increased tone Eight LE 1/5 increased tone Wheel chair bound FN - left normal Left UE 5/5 General: oriented to person, oriented to place and Unable to assess gait Cranial nerves: Yes Facial sensation intact/muscles of mastication intact, Yes Bilaterally intact EOM present, Yes Nystagmus not present and Yes Midline tongue present Cognition (Neuro): normal cognition Gait exam (Neuro): Unable to assess gait Deep tendon reflexes (DTR's): Right triceps reflex intensity grade: 2+, Left triceps reflex intensity grade: 2+, Rt Biceps (C5, C6): 2+, Left biceps reflex intensity grade: 2+, Right brachioradialis reflex intensity grade: 3+, Left brachioradialis reflex intensity grade: 2+, Right patellar reflex intensity grade: 3+ and Left patellar reflex intensity grade: 3+ Assessment & Plan Assessment & Plan (1) Seizure: Comment: s/o left MCA infarct Code(s): R56.9 - Unspecified convulsions Category: Medical (2) Hemiparesis affecting right side as late effect of cerebrovascular accident: Code(s): I69.351 - Hemiplegia and hemiparesis following cerebral infarction affecting right dominant side Category: Medical Plan Continue keppra 500mg bid - compliance stressed Increase gabapentin 300mg tid - for pain Monitor and for residual aura - will consider increasing keppra dose Medications: Changed From gabapentin 300 mg PO BID 90 days 180 caps 1RF To gabapentin 300 mg PO TID 90 days 270 caps 1RF From levetiracetam 500 mg PO BID 180 days 360 tabs 1RF To levetiracetam 500 mg PO BID 90 days 180 tabs 6RF Refilled gabapentin 300 mg PO BID 90 days 180 caps 1RF Coding Level of Care Code New Pt Level 4 (81058) Diagnoses Seizure R56.9 Hemiparesis affecting right side as late effect of cerebrovascular accident I69.351
--- OUTSIDE RECORDS SUMMARY | 2025-02-18 15:32 | XMS_ITS | Data Portability ---
Author Organization [place] - [facility] Address [address] [place] [id number] Care Team Providers Care Showroom Sales Assistant Name Role Phone JANNA COOLEY Primary Care Provider Assessment Encounter Date Assessment Date Assessment LastModified by Organization Details LastModified Time 10/30/2019 10/30/2019 Overview/History :Fernando melvin is a 54-year-old female new to [facility]. She has a medical history significant for coronary artery disease, status post silent AZ, hypertension, hyperlipidemia, COPD, recent treatment for pneumonia and CVA in the past. She contacted [facility] after noting that her toenails were [...] the patient if not improving to contact [facility] her PCP for reevaluation. Did also discuss the patient's blood pressure was a bit elevated, she reports she had been on blood pressure medication in the past but is not presently. Given her hypertension and history of coronary disease with an AZ in the past a beta pedro would likely be a good option for her, would defer this to her primary care physician. In order to obtain further information and compare any laboratory results/values, I have accessed patient records on the [facility] [employer]. This information was pertinent in my medical decision making today. Time On Scene with Patient: 00:25:54 [email or web address] Not available 10/30/2019 18:09:18 Plan of Treatment Reminders Order Date Submit Date Provider Last Modified By Organization Details Last Modified Time Details Appointments None recorded. Lab None recorded. Referral None recorded. Procedures None recorded. Surgeries None recorded. Imaging None recorded. Medication Orders Lamisil AT 1 % topical cream 2019 020 INTERFACE [id number], [address] [place] [address], [id number], 0 13:02:27 Patient TargetsNo targets recorded. Patient Instructions Encounter Date Encounter Id Patient Instructions Last Modified By Organization Details Last Modified Time 10/30/2019 [id number] toenail fungus: care instructions Not available 10/30/2019 13:02:19 WE CAME TO SEE [facility] TODAY FOR CONCERNS OF FUNGAL INFECTION OF YOUR TOES. YOU ARE BEING PRESCRIBED A TOPICAL ANTIFUNGAL FOR THIS. YOU ARE TO APPLY THIS TO CLEAN FEET TWICE DAILY FOR TWO WEEKS. IF THIS IS NOT IMPROVING BY 2 WEEKS PLEASE CONTACT PCP YOU MAY NEED ORAL TREATMENT. Thank you for your visit with [facility] today. You were seen today for treatment [...] condition between 8am-10pm, please call [facility] at [phone] to help navigate your care. [email or web address] Not available 10/30/2019 13:01:29 Reason for Referral None Reported. Medical Equipment None Reported. Allergies Allergen ID Allergen Name Allergen Category Reaction Reaction Severity Criticality Documentation Date Start Date Code Code System Note Provider Name and Address Organization Details Recorded Time 06826 Product containin g penicilli n (product) medicatio n Not available Not available Not available 10/30/2019 [id number] SNOMED BOO LIMA NP [address] [place], [address], [place] [facility] 0 12:40:59 Medications [...] Organization Details LastModified Time Mother Hypertensive disorder [email or web address] Not available 12:45:53 Medical History Condition Response Diabetes N Coronary Artery Disease Y High Cholesterol Y Pulmonary Embolism N Cancer N Stroke Y Hypertension Y Depression Y COPD Y Asthma Y Kidney Disease N Gynecological HistoryNo gynecological history recorded. Obstetrics History GPAL:G 0 P 0 0 0 0 Past Encounters Encounter ID Performer Location Encounter Start Date Encounter Closed Date Diagnosis/Indication Diagnosis SNOMED-CT Code Diagnosis ICD10 Code Diagnosis Note [id number] B[facility] [address] [facility] [id number] 10/30/2019 12:39:31 10/31/2019 12:21:43 Onychomycosis of toenails 270729256 B35.1 Essential hypertension 17186529 I10 Health Concerns Section Related Observation LastModified by Organization Detai ls LastModified Time None Recorded Concern Status LastModified by Organization Details LastModified Time None Recorded Advance Directives Directive None Recorded Payers Insurance Date Sequence Insurance Name Policy Number Policy Duran Covered Member ID Duran Member ID Guarantor Name 10/31/2019 1 [facility] - HEALTH NET PLAN (MEDICAID HMO) NAVYA Bragg [id number] 10/31/2019 1 [place] [facility] Oxana Bragg [id number] 10/29/2019 1 *SELF PAY* Oxana Bragg [id number] Notes Date Note Type Note Provider Name and Address Organization Details Recorded Time 10/30/2019 text/html This is a 54-year-old female unknown [facility] with a medical history significant for asthma, COPD, coronary artery disease status post silent AZ, depression, hypolipidemia, hypertension and stroke. She contacted [...] chills. BOO LIMA NP [address], [place], [address], [place] [facility] 10/30/2019 18:09:22 OBGyn Episode No OBEpisode recorded.
== END 2025-02-18 14:24 | disposition home or self-care (01) ==
LOC: HO.HSMS 13:42
PROVIDERS: PCP Internal Medicine; Visit Provider Psychiatry & Neurology Neurology
DX: R56.9 Unspecified convulsions (principal); I69.351 Hemiplegia and hemiparesis following cerebral infarction affecting right dominant side
CPT/HCPCS: 99204

== ENCOUNTER → 2025-02-18 13:41 | Outpatient (BNVA) | payer OTHER, SELFPAY | PROVIDERS: PCP Internal Medicine; Visit Provider Psychiatry & Neurology Neurology | DX: R56.9 Unspecified convulsions (principal); I69.351 Hemiplegia and hemiparesis following cerebral infarction affecting right dominant side; I69.320 Aphasia following cerebral infarction | CPT/HCPCS: 99202 ==

== ENCOUNTER 2025-04-04 08:17 | Outpatient (AMB) | payer OTHER, SELFPAY ==
--- OUTSIDE RECORDS SUMMARY | 2025-04-04 08:29 | XMS_ITS | Data Portability ---
Author Organization [place] - [facility] Address [address] [place] [id number] Care Team Providers Care Manager Of Production Name Role Phone JANNA COOLEY Primary Care Provider Assessment Encounter Date Assessment Date Assessment LastModified by Organization Details LastModified Time 10/30/2019 10/30/2019 Overview/History :Fernando melvin is a 54-year-old female new to [facility]. She has a medical history significant for coronary artery disease, status post silent MD, hypertension, hyperlipidemia, COPD, recent treatment for pneumonia and CVA in the past. She contacted [facility] after noting that her toenails were [...] the patient if not improving to contact [facility] her PCP for reevaluation. Did also discuss the patient's blood pressure was a bit elevated, she reports she had been on blood pressure medication in the past but is not presently. Given her hypertension and history of coronary disease with an MD in the past a beta pedro would likely be a good option for her, would defer this to her primary care physician. In order to obtain further information and compare any laboratory results/values, I have accessed patient records on the [facility] [employer]. This information was pertinent in my medical decision making today. Time On Scene with Patient: 00:25:54 [email or web address] Not available 10/30/2019 18:09:18 Plan of Treatment Reminders Order Date Submit Date Provider Last Modified By Organization Details Last Modified Time Details Appointments None recorded. Lab None recorded. Referral None recorded. Procedures None recorded. Surgeries None recorded. Imaging None recorded. Medication Orders Lamisil AT 1 % topical cream 2019 020 INTERFACE [id number], [address] [place] [address], [id number], 0 13:02:27 Patient TargetsNo targets recorded. Patient Instructions Encounter Date Encounter Id Patient Instructions Last Modified By Organization Details Last Modified Time 10/30/2019 [id number] toenail fungus: care instructions [email or web address] Not available 10/30/2019 13:02:19 WE CAME TO [...] you for your visit with [facility] today. You were seen today for treatment [...] condition between 8am-10pm, please call [facility] at [phone] to help navigate your care. [email or web address] Not available 10/30/2019 13:01:29 Reason for Referral None Reported. Medical Equipment None Reported. Allergies Allergen ID Allergen Name Allergen Category Reaction Reaction Severity Criticality Documentation Date Start Date Code Code System Note Provider Name and Address Organization Details Recorded Time 37769 Product containin g penicilli n (product) medicatio n Not available Not available Not available 10/30/2019 56382 8000 SNOMED BOO LIMA NP [address] [facility] [place], [address], [place] [facility] 0 12:40:59 Medications [...] in Arterial blood by Pulse oximetry Systolic And Diastolic Provider Name and Address Organization Details Last Updated DateTime 0 20 /min 92 /min 98.1 [degF] 93 % 93 % 166/76 mm[Hg] Not Available [facility] 0 12:44:40 Social History None recorded. Functional Status None recorded. Mental Status None recorded. Family History Relationship Description Onset Age of this Age Resolved Age Notes LastModified by Organization Details LastModified Time Mother Hypertensive disorder [email or web address] Not available 12:45:53 Medical History Condition Response Diabetes N Coronary Artery Disease Y Cancer N Stroke Y COPD Y Depression Y Asthma Y High Cholesterol Y Pulmonary Embolism N Hypertension Y Kidney Disease N Gynecological HistoryNo gynecological history recorded. Obstetrics History GPAL:G 0 P 0 0 0 0 Past Encounters Encounter ID Performer Location Encounter Start Date Encounter Closed Date Diagnosis/Indication Diagnosis SNOMED-CT Code Diagnosis ICD10 Code Diagnosis Note [id number] BOO LIMA NP [facility] [address] [facility] [id number] 10/30/2019 12:39:31 10/31/2019 12:21:43 Onychomycosis of toenails 808240382 B35.1 Essential hypertension 17607998 I10 Health Concerns Section Related Observation LastModified by Organization Detai ls LastModified Time None Recorded Concern Status LastModified by Organization Details LastModified Time None Recorded Advance Directives Directive None Recorded Payers Insurance Date Sequence Insurance Name Policy Number Policy Duran Covered Member ID Duran Member ID Guarantor Name 10/31/2019 1 [facility] - HEALTH NET PLAN (MEDICAID HMO) NAVYA Bragg [id number] 10/31/2019 1 MEDICA[place]: [facility] Oxana Bragg [id number] 10/29/2019 1 *SELF PAY* Oxana Bragg [id number] Notes Date Note Type Note Provider Name and Address Organization Details Recorded Time 10/30/2019 text/html This is a 54-year-old female unknown [facility] with a medical history significant for asthma, COPD, coronary artery disease status post silent MD, depression, hypolipidemia, hypertension and stroke. She contacted [...] chills. BOO LIMA NP [address], [place], [address], [place] [facility] 10/30/2019 18:09:22 OBGyn Episode No OBEpisode recorded.
--- NOTE | 2025-04-04 10:06 | MHC.PC.OV ---
Intake Visit Reasons: cami form Allergies crab Allergy (Unknown, Verified 02/18/25 13:52) Hives penicillin V Allergy (Unknown, Verified 02/18/25 13:52) hives Penicillins (PENICILLINS) Allergy (Unknown, Verified 02/18/25 13:52) hives SEASONAL ALLERGIES Allergy (Mild, Uncoded 02/18/25 13:52) RUNNY NOSE Medication List - Last Reconciled 04/04/25 by Brianna Gonzalez MD albuterol sulfate 90 mcg/actuation 2 puffs PO Q6H PRN 30 days amlodipine 5 mg PO DAILY 90 days aspirin (Adult Low Dose Aspirin) 81 mg PO DAILY atorvastatin 40 mg PO BEDTIME Boost High Protein (food supplemt, lactose-reduced) 1 ea PO BID NS [Diapers 3 times a day] docusate sodium 100 mg PO DAILY PRN ferrous sulfate 324 mg PO BID 90 days folic acid 1 mg PO DAILY gabapentin 300 mg PO TID 90 days ipratropium-albuterol 0.5 mg-3 mg(2.5 mg base)/3 mL 3 mL inhalation QID levetiracetam 500 mg PO BID 90 days metoprolol tartrate 25 mg PO BID 90 days mirtazapine 30 mg PO BEDTIME 90 days omeprazole 20 mg PO DAILY@0630 [orthotic consult Orthotic consult to right hand as directed] [Orthotic consult orthotic consult to right foot as directed.] polyethylene glycol 3350 17 grams PO DAILY PRN sertraline 50 mg PO DAILY Tobacco use date assessed: 10/18/24 Dental Screening Dental Screen Date: 10/18/24 HPI cami form HPI Details History - The patient is a 59-year-old female presenting with mobility difficulties, breathing issues, and aphasia. - The mobility difficulties have progressed, with increased difficulty getting around the apartment and leaving the house, requiring extensive preparation for outings. - Breathing issues are reportedly under control with current medication. - Significant difficulties with communication due to aphasia, worsened over the past month or two. - There have been challenges with daily living activities, requiring the assistance of Personal Care Assistants (CARCASS SPLITTER) due to inability to use the right arm and leg effectively. - History of monitored seizure activity without any seizures reported. Aura or pre-seizure symptoms are monitored. Medical History: - Hypertension - Hyperlipidemia - Asthma - Neurological issues with aphasia due to stroke - Monitoring for seizures - Requires significant assistance with activities of daily living due to limited mobility. Medications: - Amlodipine 5 mg daily for hypertension. - Atorvastatin 40 mg daily for hyperlipidemia. - Gabapentin (detailed provider for seizure medication) - Ipratropium-albuterol for asthma via nebulizer, used four times a day. - Metoprolol for heart conditions. - Mirtazapine for depression. - Omeprazole for acid reflux. - Sertraline for depression or anxiety. - Stool softener, iron supplements, and folic acid. - Daily multivitamin from [facility] and 81 mg of aspirin. Social History: - The patient has a surrogate who manages family development extension specialist and assists with care. - Two family development extension specialist cover late afternoon to bedtime, another approved CARCASS SPLITTER pending hours allocation. - The surrogate provides morning and early afternoon care and seeks additional CARCASS SPLITTER hours due to balancing personal obligations. - Patient requires assistance with cooking, dressing, and personal hygiene due to limited mobility. - The patient wears pads in cases of incontinence. - Mobility challenges prevent outdoor activities, limiting outings primarily to medical appointments. Problem List - Hypertension - Hyperlipidemia - Asthma - Neurological disorder with aphasia - Mobility challenges - Assistance needs for activities of daily living Patient Instructions - Adjust CARCASS SPLITTER hours for coverage morning; aiming for three additional hours daily. - Continue current medication regime as prescribed. - Utilize nebulizer four times daily as required for breathing management. - Prepare and load medication organizer weekly. - Communicate with pharmacies for prescription refills if necessary. - Ensure all upcoming medical appointments are noted to prevent any missed visits. Review of Systems - General: No fever no chills - Neurological: No headaches - Ear nose throat: No sore throat no hearing difficulty no ear pain - Cardiovascular: No syncope, no chest pain, no palpitations - Gastrointestinal: No nausea vomiting or diarrhea [facility] Medical History Seizure (~11/2021) History of multiple cerebrovascular accidents (CVAs) Hemiparesis affecting right side as late effect of cerebrovascular accident Aphasia History of non-ST elevation myocardial infarction (NSTEMI) (~11/2021) History of acute respiratory distress syndrome (ARDS) (~08/2021) Coronary artery disease Takotsubo cardiomyopathy COPD (chronic obstructive pulmonary disease) Respiratory failure with hypoxia Oxygen dependent Personal history of nicotine dependence Hemoptysis Closed subcapital fracture of femur Cocaine abuse Hypertensive emergency Normocytic anemia History of drug abuse Cocaine abuse Major depression, recurrent Acute CHF (congestive heart failure) Hypercapnic respiratory failure, chronic Asymptomatic carotid artery stenosis with infarction Chronic GERD Environmental allergies Anxiety, generalized Lipid disorder Asthma, moderate Surgical History History of left-sided carotid endarterectomy (~09/2012) History of tonsillectomy and adenoidectomy Family History Father Substance abuse Mother Brain cancer Maternal Grandfather History of heart attack Maternal Grandmother History of heart attack Paternal Grandfather No problems noted. Paternal Grandmother No problems noted. Brother No problems noted. Brother No problems noted. Son No problems noted. Daughter No problems noted. Other Mental health disorder Social History Household Members: None Household Members Other:: daughter Housing: Apartment Do you presently have visiting nurse or other home services: No Unable to assess alcohol history related to: Refusing to respond Alcohol intake: former Patient Tobacco Use Status: Former Tobacco user Tobacco use type: Cigarette Cigarettes Per Day: 2 Years Smoked: COUPLE YEAR AGO PER PT e-Cigarette/Vaping Use: Never Used Second Hand Smoke Exposure: No Advance Directives Date on File: 11/25/21 service: No Current occupational status: disabled Cognitive needs: No Hearing needs: No Vision needs: No Questionnaire Thrive Questionnaire Date Thrive assessed: 07/07/24 SAGAR-7 AMB Questionnaire SAGAR-7 Date SAGAR - 7 assessed: 10/20/22 Source: Developed by Drs. Hemant Eller, Sue Christensen, Jamey Drummond and colleagues, with an educational mario alberto from [employer]. Physical exam (Primary Care) Tobacco/Smoking Status: Tobacco use Status Tobacco use date assessed 10/18/24 04/04/25 10:07 Patient Tobacco Use Status Former Tobacco user 04/04/25 10:07 Tobacco use type Cigarette 04/04/25 10:07 e-Cigarette/Vaping Use Never Used 04/04/25 10:07 Thrive Assessment: Date of Thrive Assessment Date Thrive assessed 07/07/24 04/04/25 10:07 Telehealth Telehealth Telehealth Platform: [facility] Location of provider rendering services: practice address Location of patient: address on file Patient Identification confirmed using: Name, : Yes Telehealth method: video Patient verbally consented to treatment: Yes Patient verbally consented to billing insurance company: Yes Patient informed of any privacy concerns related to visit: Yes Coding Level of Care Code Tele Est Pt Level 5 (52081) Diagnoses Hemiparesis affecting right side as late effect of cerebrovascular accident I69.351 Failure to thrive in adult R62.7 Microcytic anemia D50.9 Panlobular emphysema J43.1 COPD type: emphysema Emphysema type: panlobular Oxygen dependent Z99.81 History of multiple cerebrovascular accidents (CVAs) Z86.73 Moderate malnutrition E44.0 Recurrent major depressive disorder, in partial remission F33.41 Active/Remission status: in partial remission Chronic GERD K21.9 Seizure R56.9 Time Spent (min) 45 Comment chart review, consultation review, face to face, paper work, coordination of care Assessment & Plan Assessment & Plan (1) Hemiparesis affecting right side as late effect of cerebrovascular accident: Code(s): I69.351 - Hemiplegia and hemiparesis following cerebral infarction affecting right dominant side Category: Medical (2) Failure to thrive in adult: Code(s): R62.7 - Adult failure to thrive Category: Medical (3) Microcytic anemia: Code(s): D50.9 - Iron deficiency anemia, unspecified Category: Medical (4) COPD (chronic obstructive pulmonary disease): Comment: She does have chronic obstructive pulmonary disease secondary to her long-time smoking. It seems to be fairly stable at this time. Code(s): J44.9 - Chronic obstructive pulmonary disease, unspecified Category: Medical Qualifiers: COPD type: emphysema Emphysema type: panlobular Qualified Code(s): J43.1 - Panlobular emphysema (5) Oxygen dependent: Code(s): Z99.81 - Dependence on supplemental oxygen Category: Medical (6) History of multiple cerebrovascular accidents (CVAs): Comment: (TIA 11/2011; CVA/left hemiparesis 01/2013 - resolved;b/l L>R [place] infarcts 04/2016, 2023 stroke) Code(s): Z86.73 - Personal history of transient ischemic attack (TIA), and cerebral infarction without residual deficits Category: Medical (7) Moderate malnutrition: Code(s): E44.0 - Moderate protein-calorie malnutrition Category: Medical (8) Major depression, recurrent: Code(s): F33.9 - Major depressive disorder, recurrent, unspecified Category: Medical Qualifiers: Active/Remission status: in partial remission Qualified Code(s): F33.41 - Major depressive disorder, recurrent, in partial remission (9) Chronic GERD: Code(s): K21.9 - Gastro-esophageal reflux disease without esophagitis Category: Medical (10) Seizure: Comment: s/o left MCA infarct Code(s): R56.9 - Unspecified convulsions Category: Medical Plan History - The patient is a 59-year-old female with H/o recurrent strokes, drug abuse in the past, oxygen dependent, sever COPD, depression , dependent for care, microcytic anemia, urine incontience presenting with mobility difficulties, breathing issues, and aphasia. - The mobility difficulties have progressed, with increased difficulty getting around the apartment and leaving the house, requiring extensive preparation for outings. - Breathing issues are reportedly under control with current medication. - Significant difficulties with communication due to aphasia, worsened over the past month or two. - There have been challenges with daily living activities, requiring the assistance of Personal Care Assistants (CARCASS SPLITTER) due to inability to use the right arm and leg effectively. - History of monitored seizure activity without any seizures reported. Aura or pre-seizure symptoms are monitored. Medical History: - Hypertension - Hyperlipidemia - Asthma - Neurological issues with aphasia due to stroke - Monitoring for seizures - Requires significant assistance with activities of daily living due to limited mobility. Medications: - Amlodipine 5 mg daily for hypertension. - Atorvastatin 40 mg daily for hyperlipidemia. - Gabapentin (detailed provider for seizure medication) - Ipratropium-albuterol for asthma via nebulizer, used four times a day. - Metoprolol for heart conditions. - Mirtazapine for depression. - Omeprazole for acid reflux. - Sertraline for depression or anxiety. - Stool softener, iron supplements, and folic acid. - Daily multivitamin from [facility] and 81 mg of aspirin. Social History: - The patient has a surrogate who manages family development extension specialist and assists with care. - Two family development extension specialist cover late afternoon to bedtime, another approved CARCASS SPLITTER pending hours allocation. - The surrogate provides morning and early afternoon care and seeks additional CARCASS SPLITTER hours due to balancing personal obligations. - Patient requires assistance with cooking, dressing, and personal hygiene due to limited mobility. - The patient wears pads in cases of incontinence. - Mobility challenges prevent outdoor activities, limiting outings primarily to medical appointments. Problem List - Hypertension - Hyperlipidemia - Asthma - Neurological disorder with aphasia - Mobility challenges - Assistance needs for activities of daily living Patient Instructions - Adjust CARCASS SPLITTER hours for coverage morning; aiming for three additional hours daily. - Continue current medication regime as prescribed. - Utilize nebulizer four times daily as required for breathing management. - Prepare and load medication organizer weekly. - Communicate with pharmacies for prescription refills if necessary. - Ensure all upcoming medical appointments are noted to prevent any missed visits.
== END 2025-04-04 11:54 | disposition home or self-care (01) ==
LOC: HO.HMCC 08:17
PROVIDERS: PCP Internal Medicine; Visit Provider Internal Medicine
DX: I69.351 Hemiplegia and hemiparesis following cerebral infarction affecting right dominant side (principal); J43.1 Panlobular emphysema; R56.9 Unspecified convulsions; R62.7 Adult failure to thrive; D50.9 Iron deficiency anemia, unspecified; Z99.81 Dependence on supplemental oxygen; Z86.73 Personal history of transient ischemic attack (TIA), and cerebral infarction without residual deficits; E44.0 Moderate protein-calorie malnutrition; F33.41 Major depressive disorder, recurrent, in partial remission; K21.9 Gastro-esophageal reflux disease without esophagitis

== ENCOUNTER 2025-04-24 13:27 | Outpatient (REF) | payer OTHER, SELFPAY ==
--- NOTE | ~2025-04-24 | CT_ITS ---
CLINICAL HISTORY: R91.1 - Solitary pulmonary nodule --- Additional Notes or Special Instructions: suspicious nodule in LLL. CT chest without contrast Comparison: CT/SR - CT CHEST WO IV CON - 01/18/25 15:[address]/SR - CT CHEST WITH IV CONTRAST - 10/06/23 13:40 EST Findings: Severe coronary artery atherosclerotic vascular calcifications. Calcifications of the aortic annulus. Similar appearance of mediastinal lymph nodes. Moderate pulmonary emphysema. Scarring in both lungs. Increasing size of solid irregular pleural-based left lower lobe lateral 19 x 16 x 9 mm pulmonary nodule (Previously measured 11 x 6 mm in 2023 And previously measured 15 x 13 x 8 mm 01/18/2025). This is highly concerning for malignancy. If not previously performed then tissue sampling and/or PET-CT are recommended now. Stable size of right lower lobe 6 mm solid pulmonary nodule from most recent prior. This was likely obscured on more remote prior due to consolidation in the right lower lobe on that exam. Extensive atherosclerotic calcifications in the upper abdomen. Thoracic aortic atherosclerotic vascular calcifications. Redemonstration of compression fracture of L1. IMPRESSION: 1. Increasing size of solid irregular pleural-based left lower lobe lateral 19 x 16 x 9 mm pulmonary nodule (Previously measured 11 x 6 mm in 2023 And previously measured 15 x 13 x 8 mm 01/18/2025). This is highly concerning for malignancy. If not previously performed then tissue sampling and/or PET-CT are recommended now. 2. Stable size of right lower lobe 6 mm solid pulmonary nodule from most recent prior. This was likely obscured on more remote prior due to consolidation in the right lower lobe on that exam. This document has been electronically signed by: Mehran Matthew DO on 04/25/2025 10:45:22
--- OUTSIDE RECORDS SUMMARY | 2025-04-24 13:53 | XMS_ITS | Encounter Summary ---
Author Organization [facility] Address [address] [place] [address] Care Team Providers Care Hospital Housekeeper Name Role Phone Chasity Arzate MD Primary Care Provider Odell Rust MD Primary Care Provider [phone] Jim Robin Primary Care Provider Unavailabl e Reason for Visit * Reason Onset Date Comments Appointment-Internal Referral 02/05/2015 Encounter Details Date Type Department Care Team Description 02/05/2015 Telephone Cardiology - [address] [address] Chasity Arzate MD Appointment-Internal Referral Social History [...] on filedocumented in this encounter Care Teams Hospital Housekeeper Relationship Specialty Start Date End Date Chasity Arzate MD PCP - General Internal Medicine 09/18/14 06/30/15 Odell Kitchen MD [address] [place] [id number] PCP - General Internal Medicine 07/01/15 06/22/16 Jim Robin [address] [place] [id number] PCP - General Internal Medicine 06/23/16 documented as of this encounter
== END 2025-04-24 13:28 | disposition home or self-care (01) ==
LOC: HO.CT 13:27
PROVIDERS: PCP Internal Medicine; Visit Provider Internal Medicine
DX: R91.1 Solitary pulmonary nodule (principal)
CPT/HCPCS: 71250

== ENCOUNTER → 2025-04-24 13:31 | Outpatient (BNV) | payer OTHER, SELFPAY | PROVIDERS: PCP Internal Medicine; Visit Provider Family Medicine | DX: R91.8 Other nonspecific abnormal finding of lung field (principal); K83.8 Other specified diseases of biliary tract | CPT/HCPCS: 71250 ==

== ENCOUNTER 2025-04-29 14:02 | Outpatient (AMB) | payer OTHER, SELFPAY ==
[2025-04-29 14:23] VITALS: BP 120/58; PULSE 72; O2SAT 95; BMI 19.2
--- NOTE | 2025-04-29 14:23 | A.OFFVIS_ITS ---
Vital Signs 04/29/25 14:23 Height 5 ft 1 in Weight 101 lb 6.602 oz BMI 19.2 BP 120/58 L Blood Pressure Location Lt brachial Position Sitting Pulse 72 Pulse Source Pulse Oximeter Pulse Oximetry (%) 95 Oxygen Delivery Method Nasal Cannula Oxygen Flow Rate 3 Intake Visit Reasons: COPD Intake Note: pt is here for follow up of ct scan and also for copd and is on oxygen on 24 hours a day, using 5 liters at home on concentrator. [employer] Required: No Allergies crab Allergy (Unknown, Verified 04/29/25 14:45) Hives penicillin V Allergy (Unknown, Verified 04/29/25 14:45) hives Penicillins (PENICILLINS) Allergy (Unknown, Verified 04/29/25 14:45) hives SEASONAL ALLERGIES Allergy (Mild, Uncoded 04/29/25 14:45) RUNNY NOSE Medication List - Last Reconciled 04/29/25 by Juan Carlos Gonzalez MD albuterol sulfate 90 mcg/actuation 2 puffs PO Q6H PRN 30 days amlodipine 5 mg PO DAILY 90 days aspirin (Adult Low Dose Aspirin) 81 mg PO DAILY atorvastatin 40 mg PO BEDTIME Boost High Protein (food supplemt, lactose-reduced) 1 ea PO BID NS [Diapers 3 times a day] docusate sodium 100 mg PO DAILY PRN ferrous sulfate 324 mg PO BID 90 days folic acid 1 mg PO DAILY gabapentin 300 mg PO TID 90 days ipratropium-albuterol 0.5 mg-3 mg(2.5 mg base)/3 mL 3 mL inhalation QID levetiracetam 500 mg PO BID 90 days metoprolol tartrate 25 mg PO BID 90 days mirtazapine 30 mg PO BEDTIME 90 days omeprazole 20 mg PO DAILY@0630 [orthotic consult Orthotic consult to right hand as directed] [Orthotic consult orthotic consult to right foot as directed.] polyethylene glycol 3350 17 grams PO DAILY PRN sertraline 50 mg PO DAILY Do you need a note to return to daycare/school/sports/work: No HPI HPI COPD: Details: LIZETH , 59 YEARS OLD FEMALE POST STROKE , WITH SEVERE IMPAIRMENT OF THE LOCOMOTION REQUIRING WHEELCHAIR FOR TRANSPORT, SEIZURE DISORDER, , ANEMIA. GERD SYMPTOMS, DEPRESSION AND ADVANCED CHRONIC OBSTRUCTIVE PULMONARY DISEASE, IS HERE FOR ROUTINE FOLLOW- UP. SHE IS A CASE OF SEVERE CHRONIC OBSTRUCTIVE PULMONARY. DISEASE DUE TO PAST SMOKING. SHE IS O2 DEPENDENT, 24 HOURS A DAY. FAR COPD IS CONCERNED IT IS RELATIVELY STABLE. SHE USES IPRATROPIUM-ALBUTEROL SOLUTION IN THE NEBULIZER 4 TIMES A DAY, AND HARDLY NEEDS TO USE THE ALBUTEROL HFA. CURRENTLY USING STATIONARY CONCENTRATOR AT HOME AND SHE HAS TO USE A LONG TUBE , 50 FT LONG TO BE ABLE TO USE IT IN THE BEDROOM. SO SHE NEEDS AT LEAST 4 L/MINUTE OR SOMETIME 5 L /MINUTE TO KEEP THE O2 SAT ABOVE 90%.. WHEN SHE IS USING PORTABLE CYLINDER THEN EVEN 2-3 L/MINUTE IS OKAY. PATIENT IS ALSO BEING FOLLOWED FOR PULMONARY NODULES AND SHE HAD A CT SCAN OF THE CHEST LAST WEEK, THE RESULTS ARE SOMEWHAT WORRISOME . [facility] Medical History Seizure (~11/2021) History of multiple cerebrovascular accidents (CVAs) Hemiparesis affecting right side as late effect of cerebrovascular accident Aphasia History of non-ST elevation myocardial infarction (NSTEMI) (~11/2021) History of acute respiratory distress syndrome (ARDS) (~08/2021) Coronary artery disease Takotsubo cardiomyopathy COPD (chronic obstructive pulmonary disease) Respiratory failure with hypoxia Oxygen dependent Personal history of nicotine dependence Hemoptysis Closed subcapital fracture of femur Cocaine abuse Hypertensive emergency Normocytic anemia History of drug abuse Cocaine abuse Major depression, recurrent Acute CHF (congestive heart failure) Hypercapnic respiratory failure, chronic Asymptomatic carotid artery stenosis with infarction Chronic GERD Environmental allergies Anxiety, generalized Lipid disorder Asthma, moderate Surgical History History of left-sided carotid endarterectomy (~09/2012) History of tonsillectomy and adenoidectomy Family History Father Substance abuse Mother Brain cancer Maternal Grandfather History of heart attack Maternal Grandmother History of heart attack Paternal Grandfather No problems noted. Paternal Grandmother No problems noted. Brother No problems noted. Brother No problems noted. Son No problems noted. Daughter No problems noted. Other Mental health disorder Social History Household Members: None Household Members Other:: daughter Housing: Apartment Do you presently have visiting nurse or other home services: No Unable to assess alcohol history related to: Refusing to respond Alcohol intake: former Patient Tobacco Use Status: Former Tobacco user Tobacco use type: Cigarette Cigarettes Per Day: 2 Years Smoked: COUPLE YEAR AGO PER PT e-Cigarette/Vaping Use: Never Used Second Hand Smoke Exposure: No Advance Directives Date on File: 11/25/21 service: No Current occupational status: disabled Cognitive needs: No Hearing needs: No Vision needs: No Review of Systems Const All systems reviewed & are unremarkable except as noted in HPI and below Eyes Reports no additional complaints ENT Reports no additional complaints (Is set at occasional nasal bleed due to irritation by the nasal cannula) Card Denies chest pain and Denies dyspnea on exertion Resp Denies dyspnea on exertion GI Reports heartburn (Symptoms of GERD treated with omeprazole) Reports no additional complaints Musc Reports abnormal gait (Impaired gait due to right hemiplegia), Reports muscle weakness and Reports other (Right-sided hemiplegia) Skin/Breast Reports system reviewed and no additional complaints, except as documented Neuro Reports abnormal gait (Impaired gait due to right hemiplegia) Psych Reports depression Endo Reports no additional complaints Antwan/Lymph Reports no additional complaints Physical Exam Vital Signs: Last Vital Signs Pulse 72 04/29/25 14:23 BP 120/58 L 04/29/25 14:23 Pulse Ox 95 04/29/25 14:23 Oxygen Delivery Method Nasal Cannula 04/29/25 14:23 Oxygen Flow Rate 3 04/29/25 14:23 Const Other: Chronically sick looking, of a thin build, and somewhat emaciated. General: comfortable (in wheelchair ), no acute distress, alert and awake Orientation/consciousness: patient oriented x3 HEENT Head: Yes normal to inspection and Yes other (ECCHYMOSIS, ON THE RIGHT SIDE OF THE FOREHEAD. NO HEMATOMA) General nose exam: No nasal polyps present and No nasal discharge present Face and sinus: Yes sinuses nontender Mouth: oropharynx normal Throat: Yes posterior oropharynx normal Eyes General: appearance normal, both eyes and all related structures Neck Neck: Yes normal visual inspection, Yes no lymphadenopathy, Yes trachea midline and Yes no JVD Thyroid: Thyroid normal Chest Chest palpation & inspection: normal inspection of the chest, normal palpation of entire chest wall and no tenderness Resp Other: Percussion note is hyper resonant. Breath sounds are distant with prolonged expiratory phase. No wheezes or crepitations are heard. Cardio Palpation: normal PMI Rate: regular rate Rhythm: regular rhythm Heart sounds: no gallops and no murmurs GI Palpation (GI): Soft to palpation, nontender, No hepatosplenomegaly present and no masses Auscultation: normal bowel sounds Back/Spine/Pelvis Thoracic/Lumbar Spine: thoracic and lumbar spine normal to inspection and thorac o-lumbar ROM limited Skin General skin exam: no rashes or lesions noted Neuro General: patient oriented x3 and No no focal motor deficits (Has right hemiplegia) Cranial nerves: Yes CN's II-XII intact bilaterally Extrem General: Yes normal to inspection, Yes no clubbing, cyanosis or edema and Yes no calf tenderness Psych Appearance: grossly normal and well kempt Speech and movement: Normal speech and movement present Results Reviewed Results Reviewed: CT SCAN OF THE CHEST WITHOUT CONTRAST PERFORMED ON 04/24/2025. 1- INCREASING SIZE OF SOLID IRREGULAR PLEURAL BASED LEFT LOWER LOBE NODULE, CURRENT SIZE 19X 16X 9MM , INCREASED IN SIZE COMPARED TO THE SIZE ON 01/18 25 2 STABLE RIGHT LOWER LOBE 6 MM SOLID PULMONARY NODULE Assessment & Plan Assessment & Plan (1) COPD (chronic obstructive pulmonary disease): Comment: She does have chronic obstructive pulmonary disease secondary to her long-time smoking. It seems to be fairly stable at this time. Code(s): J44.9 - Chronic obstructive pulmonary disease, unspecified Category: Medical Qualifiers: COPD type: emphysema Emphysema type: panlobular Qualified Code(s): J43.1 - Panlobular emphysema Plan: CONTINUE IPRATROPIUM-ALBUTEROL SOLUTION IN THE NEBULIZER Q 6 HOURS WHILE AWAKE ALBUTEROL HFA 2 PUFFS Q 4-6 HOURS P.R.N. WHEN OUTDOORS. (2) Respiratory failure with hypoxia: Comment: Patient does have chronic hypoxemia and is dependent on oxygen. Using 3 L/minute continuously, with the portable cylinder. She needs a higher flow at home because her tube is more than 50 ft. Long and she ends up increasing the flow to 4 or 5 L/minute. Code(s): J96.91 - Respiratory failure, unspecified with hypoxia Category: Medical Plan: I talked to her about using O2 at home. She should try to breathe through the nose and try to take deep breaths so that she can have good oxygenation just with 3-4 L/minute. (3) Nicotine dependence, cigarettes, uncomplicated: Comment: Patient has lifelong history of smoking. Claims that she has quit smoking completely since January 2024. Code(s): F17.210 - Nicotine dependence, cigarettes, uncomplicated Category: Medical Plan: Commended for not going back to smoking (4) Pulmonary nodule 1 cm or greater in diameter: Comment: She has had pulmonary nodule in the right lower lobe which remains stable in size and pulmonary nodule in the left lower lobe, pleural based, which has grown in size as noted above. This is worrisome for being neoplastic. Code(s): R91.1 - Solitary pulmonary nodule Category: Medical Plan: Discussed with the patient and, options such as needle biopsy worse is PET scan then needle biopsy were discussed. Patient is agreeable to undergo the percutaneous needle biopsy because that will give mode definitive diagnosis . She does not have any bleeding disorder, and is not on any anticoagulants. Except aspirin which will be stopped for 5 days before the procedure. Orders: Orders Biopsy - Fine needle aspiration Today J43.1 - Panlobular emphysema, R91.1 - Solitary pulmonary nodule Coding Level of Care Code Est Pt Level 4 (98041) Diagnoses Panlobular emphysema J43.1 COPD type: emphysema Emphysema type: panlobular Respiratory failure with hypoxia J96.91 Nicotine dependence, cigarettes, uncomplicated F17.210 Pulmonary nodule 1 cm or greater in diameter R91.1
--- OUTSIDE RECORDS SUMMARY | 2025-04-29 14:50 | XMS_ITS | Encounter Summary ---
Author Organization [facility] Address [address] [place] [address] Care Team Providers Care Insole Taper Name Role Phone Chasity Arzate MD Primary Care Provider Odell Rust MD Primary Care Provider [phone] Jim Robin Primary Care Provider Unavailabl e Reason for Visit * Reason Onset Date Comments Appointment-Internal Referral 02/05/2015 Encounter Details Date Type Department Care Team Description 02/05/2015 Telephone Cardiology - [address] [address] Chasity Arzate MD Appointment-Internal Referral Social History [...] on filedocumented in this encounter Care Teams Insole Taper Relationship Specialty Start Date End Date Chasity Arzate MD PCP - General Internal Medicine 09/18/14 06/30/15 Odell Kitchen MD [address] [place] [id number] PCP - General Internal Medicine 07/01/15 06/22/16 Jim Robin [address] [place] [id number] PCP - General Internal Medicine 06/23/16 documented as of this encounter
== END 2025-04-29 14:45 | disposition home or self-care (01) ==
LOC: HO.HPS 14:03
PROVIDERS: PCP Internal Medicine; Visit Provider Internal Medicine
DX: J43.1 Panlobular emphysema (principal); J96.91 Respiratory failure, unspecified with hypoxia; F17.210 Nicotine dependence, cigarettes, uncomplicated; R91.1 Solitary pulmonary nodule
CPT/HCPCS: 99214

== ENCOUNTER → 2025-04-29 14:02 | Outpatient (BNVA) | payer OTHER, SELFPAY | PROVIDERS: PCP Internal Medicine; Visit Provider Internal Medicine | DX: J43.1 Panlobular emphysema (principal); J96.91 Respiratory failure, unspecified with hypoxia; R91.1 Solitary pulmonary nodule; F17.210 Nicotine dependence, cigarettes, uncomplicated | CPT/HCPCS: 99212 ==

== ENCOUNTER 2025-06-20 11:45 | Day surgery (SDC) | payer OTHER, SELFPAY ==
[2025-06-20] VITALS (18 sets, daily range): BP systolic 116–235; BP diastolic 56–89; PULSE 92–111; RESP 15–24; TEMP 36.2; O2SAT 94–100; BMI 19.1
--- NOTE | ~2025-06-20 | XR_ITS ---
EXAMINATION: XR FOREARM, RIGHT CLINICAL INFORMATION: FALL, BRUISING COMPARISON: None available. TECHNIQUE: AP and lateral views of the right forearm were obtained. FINDINGS: Osteopenia. Question nondisplaced fracture of the radial styloid. No other fracture. Mild degenerative changes at the wrist. Soft tissues are normal. XR/XR forearm RT 2V IMPRESSION: Question nondisplaced radial styloid fracture. Recommend follow up right wrist x-ray. Electronically signed by: Migdalia Laurent MD 06/20/2025 04:32 PM EDT
--- NOTE | ~2025-06-20 | XR_ITS ---
EXAMINATION: XR HUMERUS, RIGHT CLINICAL INFORMATION: FALL, BRUISING COMPARISON: None available. TECHNIQUE: AP and lateral views of the right humerus. FINDINGS: There is a transverse minimally displaced impacted right humeral neck fracture. No other fracture. Elbow and shoulder joints are normal. Soft tissues are normal. XR/XR humerus RT IMPRESSION: Right humeral neck fracture. Electronically signed by: Migdalia Laurent MD 06/20/2025 04:30 PM EDT
--- NOTE | ~2025-06-20 | XR_ITS ---
EXAMINATION: XR CHEST CLINICAL INFORMATION: ro pneumothorax post left lung biopsy COMPARISON: 10/05/2023, and correlation made with CT chest 04/24/2025. TECHNIQUE: AP view of the chest was obtained. FINDINGS: The cardiac, hilar, and mediastinal contours are normal. Aortic mural calcification. Lungs are diffusely hyperaerated and hyperlucent, consistent with COPD. There is a similar small nodular opacity in the left lower lung abutting the left heart border. No perceptible pneumothorax is present. There is a fracture of the right humerus surgical neck, indeterminate chronicity. XR/XR chest 1V IMPRESSION: 1. No perceptible pneumothorax after left lung nodule biopsy. 2. Fracture of the right humerus surgical neck, indeterminate chronicity. Correlate clinically. Electronically signed by: Cristhian Benitez MD 06/20/2025 04:31 PM EDT
--- NOTE | ~2025-06-20 | CT_ITS ---
PROCEDURE: CT GUIDED BIOPSY, LUNG CLINICAL INFORMATION: Lung nodule COMPARISON: Previous chest CT scans most recent April 2025 TECHNIQUE: Procedure and risks and benefits including bleeding, infection and pneumothorax were discussed with the patient and informed consent was obtained. The patient was positioned in the prone/OCCITAN position. Limited axial images through the chest were performed. Using CT guidance and a 22-gauge needle, access to the 8 x 15 mm peripheral left lower lobe nodule was obtained. 2 22-gauge FNA specimens were obtained. Conscious sedation was provided by registered nurse under my direct supervision with continuous hemodynamic monitoring. Patient received Versed 1 mg and fentanyl 50 mcg intravenously during the procedure. Total sedation time was [address] examination was performed using dose optimization techniques as appropriate, variously including the following: *Automated exposure control *Adjustment of mA and/or kV according to patient size (this includes techniques or standardized protocols for targeted exams where dose is matched to indication/reason for exam; i.e. extremities or head) *Use of iterative reconstruction technique DLP 138 mgy/cm FINDINGS: There is an 8 x 15 mm peripheral left lower lobe nodule that was targeted for fine-needle aspiration. Postbiopsy images demonstrate a small amount of surrounding hemorrhage. There is no pneumothorax. CT/CT biopsy lung LT IMPRESSION: CT-guided left lower lobe nodule fine needle aspiration. Electronically signed by: Migdalia Laurent MD 06/20/2025 03:26 PM EDT
[2025-06-20 12:21] LABS: MANUAL DIFF FLAG NO
[2025-06-20 12:27] LABS: Hematocrit 37.2 % (37.0-47.0); Hemoglobin 11.3 g/dl (12.0-16.0); Imm Gran Abs Auto 0.02 X10*3/uL (0.00-0.03); Imm Gran Pct Auto 0.3 % (0.0-0.4); Lymphocytes Absolute Auto 1.5 X10*3/uL (1.2-4.9); Mean Corpuscular HGB Conc 30.4 g/dl (31.0-35.0); Mean Corpuscular Hemoglobin 29.9 pg (27.0-33.0); Mean Corpuscular Volume 98.4 fL (80.0-98.0); NRBC Abs Auto 0.000 X10*3/uL (0.0-0.012); NRBC Pct Auto 0.0 /100WBC (0.0-0.2); Platelet Count 333 X10*3/uL (160-400); Red Blood Count 3.78 X10*6/uL (4.20-5.50); White Blood Count 6.8 X10*3/uL (4.8-10.8)
[2025-06-20 12:33] LABS: INTERNATIONAL NORM RATIO 0.9 (0.9-1.1); Prothrombin Time 10.7 SEC (10.9-12.4)
[2025-06-20 12:49] LABS: Anion Gap 10 (12-20); Blood Urea Nitrogen 5 mg/dL (9-16); Calcium 10.2 mg/dL (8.4-10.2); Carbon Dioxide 44 mmol/L (22-29); Chloride 87 mmol/L (96-108); Estimated Glomerular Filt Rate > 60; Potassium 4.3 mmol/L (3.3-5.1); Sodium 137 mmol/L (135-145)
--- NOTE | 2025-06-20 13:41 | PC.NURSE ---
late entry 1300--unable to start iv, rad rns at bedside and will do ulktrasound guided in radiology to to several failed attempts.
--- NOTE | 2025-06-20 14:41 | HO.RADPN ---
RADIOLOGY Narrative Narrative: Two 22g FNA samples from LLL nodule obtained under CT guidance. No PTX>
== END 2025-06-20 17:00 | disposition home or self-care (01) ==
LOC: HO.SSS 11:46
PROVIDERS: Radiology Diagnostic Radiology; Student in an Organized Health Care Education/Training Program; PCP Internal Medicine; Visit Provider Internal Medicine
DX: R91.1 Solitary pulmonary nodule (principal); R84.6 Abnormal cytological findings in specimens from respiratory organs and thorax; J44.9 Chronic obstructive pulmonary disease, unspecified; Z99.81 Dependence on supplemental oxygen; J96.91 Respiratory failure, unspecified with hypoxia; J43.1 Panlobular emphysema; I25.10 Atherosclerotic heart disease of native coronary artery without angina pectoris; I51.81 Takotsubo syndrome; I25.2 Old myocardial infarction; I16.1 Hypertensive emergency; D64.9 Anemia, unspecified; I69.351 Hemiplegia and hemiparesis following cerebral infarction affecting right dominant side; R56.9 Unspecified convulsions; F14.11 Cocaine abuse, in remission; Z79.82 Long term (current) use of aspirin; Z79.899 Other long term (current) drug therapy; Z88.0 Allergy status to penicillin; Z91.013 Allergy to seafood; F17.210 Nicotine dependence, cigarettes, uncomplicated
CPT/HCPCS: 32408; 36415; 71045; 73060; 73090; 80048; 85025; 85610; 88112; 88305; 99152; 99153; J2003; J2250; J3010

== ENCOUNTER → 2025-06-20 12:55 | Outpatient (BNV) | payer OTHER, SELFPAY | PROVIDERS: PCP Internal Medicine; Visit Provider Radiology Diagnostic Radiology | DX: R91.1 Solitary pulmonary nodule (principal); M50.30 Other cervical disc degeneration, unspecified cervical region; I63.9 Cerebral infarction, unspecified; M79.89 Other specified soft tissue disorders; M79.601 Pain in right arm; S42.211A Unspecified displaced fracture of surgical neck of right humerus, initial encounter for closed fracture; R06.02 Shortness of breath; M85.841 Other specified disorders of bone density and structure, right hand; S50.11XA Contusion of right forearm, initial encounter; W19.XXXA Unspecified fall, initial encounter | CPT/HCPCS: 32408; 70450; 71045; 72125; 73060; 73090; 73110; 93971 ==

== ENCOUNTER 2025-06-20 17:11 | Inpatient (IN) | payer OTHER, SELFPAY ==
--- NOTE | ~2025-06-20 | CT_ITS ---
CLINICAL HISTORY: fall ? head strike, hypoxia feeling unwell CT head without contrast Comparison: CT/SR - CT HEAD NECK ANGIOGRAPHY WITH IV CONTRAST STROKE - 07/24/24 19:54 EST Findings: No intra-axial mass, midline shift, hydrocephalus, or acute hemorrhage. There is encephalomalacia in left frontal lobe and frontoparietal convexity consistent with nonacute infarcts. Mild hypodensities in the left-sided of the middle could be artifactual. Mild atherosclerotic vascular disease. Previous paranasal sinus surgery. Sinuses and mastoid air cells are clear. The orbits are within normal limits. No acute skull fracture. IMPRESSION: 1. No acute intracranial findings. 2. Stable nonacute left frontal and parietal infarct. This document has been electronically signed by: Antionette Mccullough MD on 06/20/2025 22:47:55
--- NOTE | ~2025-06-20 | US_ITS ---
CLINICAL HISTORY: RUE pain swelling Venous duplex ultrasound right upper extremity Comparison: None provided Findings: Accessible deep venous segments are fully compressible with normal Doppler color flow and spectral tracings. The ulnar vein could not be visualized due to immobility of the right upper extremity due to pain. IMPRESSION: 1. Negative for right upper extremity deep vein thrombosis. This document has been electronically signed by: Antionette Mccullough MD on 06/20/2025 19:42:55
--- NOTE | ~2025-06-20 | CT_ITS ---
CLINICAL HISTORY: neck pain neck pain CT cervical spine without contrast Comparison: CT/REG/SR - CT CERVICAL SPINE WO IV CON - 09/24/23 05:52 EST Findings: Cervical alignment is maintained. There is developmental partial fusion of the vertebral bodies at the C6-7 level. Vertebral body height is maintained. No acute fracture in the cervical spine. Craniocervical junction is intact. Degenerative changes and facet arthropathy at C3-4, C4-5 and C5-6 levels resulting in significant right neural foraminal stenosis at C4-5 and C5-6. Prevertebral soft tissues within normal limits. Thyroid appears unremarkable. Bilateral atherosclerotic vascular disease. Lung apices are clear. IMPRESSION: 1. No acute findings in the cervical spine. 2. Degenerative changes as described. This document has been electronically signed by: Antionette Mccullough MD on 06/20/2025 22:40:41
--- NOTE | ~2025-06-20 | CT_ITS ---
CLINICAL HISTORY: fall abd pain - some CTA PE images are linked to the CT A/P study, please read out both studies. CT angiography chest with contrast. 3D Postprocessing. CT abdomen and pelvis with contrast. Comparison: CT/NC/SR - CT CHEST WO IV CON - 04/24/25 13:[address]/SR - CT CHEST WITH IV CONTRAST - 10/06/23 13:40 EST Findings: Heart size normal. Small amount of pericardial fluid. Left common carotid artery is occluded. Likely chronic as there is heavy calcification in the proximal vessel. The remaining cervical great vessels are widely patent. Thoracic aorta normal caliber. No dissection. Right femoral neck screw fixation. No hardware complications. Moderate to severe emphysema. Pleural-based stellate density left lower lobe 1.8 cm. In 2023 this measured 9 mm. No pleural effusion or pneumothorax. Unremarkable gallbladder and solid organs. No urolithiasis. Sigmoid colon is mildly thick-walled and decompressed. Uterus and ovaries unremarkable. Normal appendix. Distal colonic diverticulosis without diverticulitis. Mild old superior endplate compression fracture L1. No acute fractures or dislocations. IMPRESSION: 1. Occluded left common carotid artery. The appearance suggests this is chronic. 2. No acute pulmonary embolus. 3. Stellate pleural-based density in the left lower lobe. Increasing in size. Malignancy should be excluded. 4. Thick-walled sigmoid colon. Nondistention is favored over colitis. 5. Additional findings of chest, abdomen, and pelvis as noted. This document has been electronically signed by: Sen Boudreaux MD on 06/21/2025 04:07:33
--- NOTE | ~2025-06-20 | XR_ITS ---
CLINICAL HISTORY: Rt wrist 3 view right wrist Comparison: CR/SR - XR HAND 3 OR MORE VIEWS RIGHT - 09/24/23 05:45 EST Findings: Lateral view limited by overlying artifact. No acute fracture is demonstrated. No dislocation. Diffuse demineralization. Degenerative changes at 1st carpometacarpal joint. IMPRESSION: 1. No acute fracture or dislocation. 2. Diffuse demineralization. This document has been electronically signed by: Antionette Mccullough MD on 06/20/2025 21:34:52
--- NOTE | ~2025-06-20 | XR_ITS ---
CLINICAL HISTORY: sob 1 view chest x-ray Comparison: CR/SR - XR CHEST 1 VIEW - 06/20/25 16:02 EDT Findings: Heart size is normal. Atherosclerotic vascular disease of the aortic arch. Lungs somewhat hyperinflated with stable interstitial changes likely chronic. Stable small nodular opacity in left lower lung. No significant pleural effusion or significant pneumothorax. Stable fracture of right humeral neck. IMPRESSION: 1. Stable findings as described. No acute findings. This document has been electronically signed by: Antionette Mccullough MD on 06/20/2025 20:54:39
--- NOTE | ~2025-06-20 | CT_ITS ---
EXAMINATION: CT ANGIOGRAM CHEST FINDINGS/ CT/CT angio chest PE protocol IMPRESSION: CTA chest was performed later and and was read with CT abdomen and pelvis with contrast exam at 1:28 AM. On social services counselor exam patient has a comminuted fractured right humeral neck. No dislocation seen. Electronically signed by: Kiran Platt MD 06/21/2025 10:36 AM EDT
[2025-06-20 17:17] VITALS: BP 147/67; PULSE 111; RESP 22; TEMP 36.6; O2SAT 91; BMI 20.8
[2025-06-20 18:00] VITALS: BP 139/61; PULSE 105; RESP 16; TEMP 36.6; O2SAT 90
--- NOTE | 2025-06-20 18:43 | ED_ITS ---
HPI - General Adult General Chief complaint: Fall Stated complaint: Fall Time Seen by Provider: 06/20/25 18:37 Source: patient Mode of arrival: wheelchair Limitations: no limitations History of Present Illness ED Provider: CHESTER Vasquez HPI narrative: This is a 59-year-old female, frail appearing chronically ill with past medical history significant for seizure, CVA with right-sided hemiparesis, takotsubo cardiomyopathy, respiratory failure with hypoxia, COPD, GERD, depression, chronic lung disease, normocytic anemia, malnutrition who presents to the emergency department with complaints of shortness of breath status post lung biopsy. According to nursing staff there was a 1 hour post biopsy x-ray done which was negative for pneumothorax. Patient reports she feels overall unwell and she reports significant right upper extremity pain, and discomfort. She reports she had x-rays of her right forearm and humerus done today however she is sure of the results. According to patient's son does mention that patient has had worsening debility, weakness. She does have a history of CVA with right-sided hemiparesis however she appears to be did deconditioned and something seems to be off ever since she had her fall 2-3 weeks ago. She is on baby aspirin daily however no anticoagulants. Related Data Home Medications ?Medication ?Instructions ?Recorded ?Confirmed polyethylene glycol 3350 17 gram 17 g PO DAILY PRN Con stipation 01/03/24 06/21/25 oral powder packet Previous Rx's ?Medication ?Instructions ?Recorded Diapers #90 multiple units 01/06/24 aspirin 81 mg tablet,delayed 81 mg PO DAILY #90 tabs 0 03/02/24 release (Adult Low Dose Aspirin) albuterol sulfate 90 mcg/actuation 2 puff PO Q6H PRN b ronchospasm 30 04/17/24 aerosol inhaler days #6.7 grams docusate sodium 100 mg capsule 100 mg PO DAILY PRN Con stipation 06/01/24 #90 caps sertraline 50 mg tablet 50 mg PO DAILY Depression #9 0 tabs 07/10/24 Orthotic consult #1 ea 08/20/24 orthotic consult #1 ea 08/20/24 amlodipine 5 mg tablet 5 mg PO DAILY 90 days #90 ta bs 11/26/24 atorvastatin 40 mg tablet 40 mg PO BEDTIME Cholesterol #90 12/17/24 tabs mirtazapine 30 mg tablet 30 mg PO BEDTIME To sleep 90 days 01/03/25 #90 tabs folic acid 1 mg tablet 1 mg PO DAILY #90 tabs 02/12 gabapentin 300 mg capsule 300 mg PO TID 90 days #270 c aps 02/18/25 levetiracetam 500 mg tablet 500 mg PO BID 90 days #180 tabs 02/18/25 metoprolol tartrate 25 mg tablet 25 mg PO BID 90 days #180 tabs 04/09/25 ipratropium 0.5 mg-albuterol 3 mg 3 ml inhalation QID PRN for 05/02/25 (2.5 mg base)/3 mL nebulization dyspnea #180 mL soln ferrous sulfate 324 mg (65 mg 324 mg PO BID 90 days #1 80 tabs 05/07/25 iron) tablet,delayed release omeprazole 20 mg capsule,delayed 20 mg PO DAILY@0630 [place] reflux 05/14/25 release #90 caps Allergies Allergy/AdvReac Type Severity Reaction Status Date / Time crab Allergy Unknown Hives Verified 06/20/25 17:20 penicillin V Allergy Unknown hives Verified 06/20/25 17:20 Penicillins (PENICILLINS) Allergy Unknown hives Verified 06/20/25 17:20 SEASONAL ALLERGIES Allergy Mild RUNNY NOSE Uncoded 04/29/25 14:45 Review of Systems 2 Review of Systems: Yes all other systems are reviewed and are negative PMFSH Past Medical History Attestation statement: The following information was validated with the patient. Source: old records reviewed and nursing notes reviewed Medical History Seizure (~11/2021) History of multiple cerebrovascular accidents (CVAs) Hemiparesis affecting right side as late effect of cerebrovascular accident Aphasia History of non-ST elevation myocardial infarction (NSTEMI) (~11/2021) History of acute respiratory distress syndrome (ARDS) (~08/2021) Coronary artery disease Takotsubo cardiomyopathy COPD (chronic obstructive pulmonary disease) Respiratory failure with hypoxia Oxygen dependent Personal history of nicotine dependence Hemoptysis Closed subcapital fracture of femur Cocaine abuse Hypertensive emergency Normocytic anemia History of drug abuse Cocaine abuse Major depression, recurrent Acute CHF (congestive heart failure) Hypercapnic respiratory failure, chronic Asymptomatic carotid artery stenosis with infarction Chronic GERD Environmental allergies Anxiety, generalized Lipid disorder Asthma, moderate Surgical History History of left-sided carotid endarterectomy (~09/2012) History of tonsillectomy and adenoidectomy Family History Family History Father Substance abuse Mother Brain cancer Maternal Grandfather History of heart attack Maternal Grandmother History of heart attack Paternal Grandfather No problems noted. Paternal Grandmother No problems noted. Brother No problems noted. Brother No problems noted. Son No problems noted. Daughter No problems noted. Other Mental health disorder Social History Social History Household Members: None Household Members Other:: daughter Housing: Assisted Living Facility Do you presently have visiting nurse or other home services: No Alcohol intake: former Patient Tobacco Use Status: Former Tobacco user Tobacco use type: Cigarette Cigarettes Per Day: 2 Years Smoked: COUPLE YEAR AGO PER PT e-Cigarette/Vaping Use: Never Used Second Hand Smoke Exposure: No Currently Displaying Signs/Symptoms of Drug Intoxication Withdrawal: No Have you been hit, kicked, punched, or otherwise hurt by someone within the past year? If so, by whom?: No Do you feel safe in your current relationship?: No Current Relationship Is there a partner from a previous relationship who is making you feel unsafe now?: No Are you made to feel afraid or neglected: No Advance Directives: Yes Advance Directives on File: Yes Advance Directives Date on File: 11/25/21 Recently lost weight without trying: No Patient : No service: No Current occupational status: disabled Cognitive needs: No Hearing needs: No Vision needs: No Physical Exam ED Exam Exam: Appearance: Alert.? Oriented X3.? No acute distress.? Head: Normocephalic, atraumatic, no step-offs or deformities Eyes: Pupils equal, round and reactive to light.? Neck: Normal inspection.? Neck supple.? CVS: Normal heart rate and rhythm.? Pulses normal.? Respiratory: No respiratory distress.? Breath sounds diminished bilaterally with faint expiratory wheezing..? Abdomen: Soft and nontender.? Skin: Skin warm and dry.? Normal skin color.? Normal skin turgor.? Extremities: No lower extremity edema.? No calf ttp. 4/5 LUE and LLE. Right side flacid. Global weakness + bruising to R ac and medial aspect of bicep + brusing to superior aspect of left chest and lower abd. Neuro: Oriented X 3.? No motor deficit.? No sensory deficit. CN 2-12 intact Vital Signs: Vital Signs - 24 hr 06/20/25 17:17 06/20/25 18:00 06/20/25 18:47 Temperature 97.9 F 97.8 F Pulse Rate 111 H 105 H 109 H Respiratory Rate 22 H 16 24 H Blood Pressure 147/67 H 139/61 Pulse Oximetry 91 L 90 L Oxygen Delivery Method Nasal Cannula Nasal Cannula Oxygen Flow Rate 3 06/20/25 19:16 06/20/25 22:08 06/21/25 00:42 Temperature 98.5 F 96.3 F L Pulse Rate 128 H 112 H 117 H Respiratory Rate 22 H 18 24 H Blood Pressure 169/57 H 174/59 H 127/57 L Pulse Oximetry 94 90 L 98 Oxygen Delivery Method Oxymask Oxymask Nasal Cannula Oxygen Flow Rate 7 4 BMI result Body Mass Index 20.8 Patient noted to be tachycardic, hypoxic 82% on home 3 L Course Reevaluation(s) Reevaluation #1: CBC with normocytic anemia. Chemistry with no acute findings needing intervention she does have hypercarbia at baseline today 42. Total CPK 60, pro BMP normal. Repeat x-ray obtained results not yet back however no evidence of large pneumothorax. CT scan still pending. UA still pending. Time: 19:05 Reevaluation #2: X-ray of the right humerus with right humeral neck fracture, right forearm x-ray question nondisplaced radial styloid fracture. I will place patient in a sling as well as a Velcro volar splint. I also added imaging of the wrist. CT scans are still pending. Patient continues to be hypoxic 83% on 6 L. Time: 19:56 Reevaluation #3: Patient will require hospitalization Dr. Shah aware, we will let them know when films results. Time: 20:58 Additional Reevaluation(s): Can plays with CT imaging due to reported blown IVs. She had ultrasound guided access of the left upper extremity that was deemed not adequate by CT staff for CT angiography due to the pressure. The patient was offered a central line for definitive access and to allow for the CT scan to be performed. The patient adamantly denies any access in her neck or central line. Therefore a peripheral 20 gauge IV was placed in the patient's right forearm her feet despite her known fracture. infection suspected 209am cultures and lactic acid ordered along with ceftriaxone has hx of E. Coli UTI in past S to ceftriaxone Chelsey Chacon, DO 06/21/25 0209 Medications Administered Generic Name Dose Route Start Last Admin Trade Name Freq PRN Reason Stop Dose Admin Acetaminophen 650 mg 06/21/25 05:23 06/21/25 05:50 Acetaminophen 325 Mg Tablet PO 650 mg Q6H PRN Administration Pain, Mild 1-3,fever,headache Aspirin 81 mg 06/21/25 09:00 06/22/25 08:32 Aspirin Enteric Coated 81 Mg Tablet. PO 81 mg DAILY LADONNA Administration Atorvastatin Calcium 40 mg 06/21/25 21:00 06/22/25 21:43 Atorvastatin Calcium 40 Mg Tablet PO 40 mg BEDTIME LADONNA Administration Levalbuterol HCl 1.25 mg/ 0 mg 06/21/25 08:00 06/22/25 18:27 Ipratropium Victoria 0.5 mg INHALE 1 dose RQ4H WHILE AWAKE LADONNA Administration Ferrous Sulfate 324 mg 06/21/25 09:00 06/22/25 21:43 Ferrous Sulfate 324 Mg Tablet. PO 324 mg BID LADONNA Administration Folic Acid 1 mg 06/21/25 09:00 06/22/25 08:32 Folic Acid 1 Mg Tablet PO 1 mg DAILY LADONNA Administration Gabapentin 300 mg 06/21/25 09:00 06/22/25 21:43 Gabapentin 300 Mg Capsule PO 300 mg TID LADONNA Administration Heparin Sodium (Porcine) 5,000 unit 06/21/25 14:00 06/22/25 21:43 Heparin Sodium,Porcine 5,000 Unit/Ml Vial SUBCUT 5,000 unit Q8H LADONNA Administration Ketorolac Tromethamine 15 mg 06/21/25 08:11 06/22/25 15:38 Ketorolac Tromethamine 15 Mg/Ml Vial IVPUSH 15 mg Q6H PRN Administration Pain, Moderate(Pain Scale 4-6) Levetiracetam 500 mg 06/21/25 09:00 06/22/25 21:43 Levetiracetam 500 Mg Tablet PO 500 mg BID LADONNA Administration Methylprednisolone Sodium Succinate 60 mg 06/21/25 07:00 06/22/25 17:57 Methylprednisolone Sod Succ 125 Mg/2 Ml Vial IVPUSH 60 mg Q12H LADONNA Administration Metoprolol Tartrate 25 mg 06/21/25 21:00 06/22/25 21:43 Metoprolol Tartrate 25 Mg Tablet PO 25 mg BID LADONNA Administration Protocol Mirtazapine 30 mg 06/21/25 21:00 06/22/25 21:43 Mirtazapine 30 Mg Tablet PO 30 mg BEDTIME LADONNA Administration Omeprazole 20 mg 06/21/25 06:30 06/22/25 06:00 Omeprazole 20 Mg Capsule.Dr PO 20 mg DAILY@0630 LADONNA Administration Oxycodone HCl 5 mg 06/21/25 08:12 06/22/25 21:42 Oxycodone Hcl Immed Release 5 Mg Tablet PO 5 mg Q4H PRN Administration Pain, Severe (Pain Scale 7-10) Sertraline HCl 50 mg 06/21/25 09:00 06/22/25 08:32 Sertraline Hcl 50 Mg Tablet PO 50 mg DAILY LADONNA Administration Sodium Chloride 3 ml 06/21/25 08:00 06/22/25 21:45 0.9 % Sodium Chloride Flush 3 Ml Syringe IVFLUSH Not Given QSHIFT LADONNA Discontinued Medications Generic Name Dose Route Start Last Admin Trade Name Freq PRN Reason Stop Dose Admin Albuterol Sulfate 7.5 mg/ 10 mg 06/20/25 18:40 06/20/25 18:47 Albuterol Sulfate 2.5 mg INHALE 06/20/25 18:41 10 mg ONCE ONE Administration Ceftriaxone Sodium 1 gm 06/21/25 02:05 06/21/25 02:41 Ceftriaxone Sodium 1 Gm Vial IVPUSH 06/21/25 02:06 1 gm ONCE ONE Administration Levalbuterol HCl 1.25 mg/ 0 mg 06/21/25 03:20 06/21/25 03:25 Ipratropium Victoria 0.5 mg INHALE 06/21/25 03:21 1 dose ONCE ONE Administration Dexamethasone Sodium Phosphate 10 mg 06/20/25 18:54 06/20/25 18:59 Dexamethasone Sod Phosphate 10 Mg/Ml Vial IVPUSH 06/20/25 18:55 10 mg ONCE ONE Administration Heparin Sodium (Porcine) 5,000 unit 06/21/25 05:30 06/21/25 05:55 Heparin Sodium,Porcine 5,000 Unit/Ml Vial SUBCUT 5,000 unit Q8H LADONNA Administration Magnesium Sulfate 2 gm in 50 mls @ 25 mls/hr 06/20/25 18:54 06/20/25 20:10 Magnesium Sulfate/H2o IV 06/20/25 20:53 Infused ONCE ONE Infusion Iohexol 100 ml 06/20/25 20:34 06/20/25 20:34 Iohexol 350 Mg/Ml 100 Ml Infus..Btl IV 06/20/25 20:35 85 ml ONCE ONE Administration Iohexol 65 ml 06/21/25 01:42 06/21/25 01:43 Iohexol 350 Mg/Ml 100 Ml Infus..Btl IV 06/21/25 01:43 65 ml ONCE ONE Administration Levetiracetam 500 mg 06/21/25 03:12 06/21/25 03:19 Levetiracetam 500 Mg Tablet PO 06/21/25 03:13 500 mg ONCE ONE Administration Procedures Procedure Narrative Procedure Narrative: Ultrasound-guided IV 20 gauge 2-1/2 inch IV placed in left upper extremity. Adequate blood flow, secured with Tegaderm. Performed by Jacqueline Goyal PA-C. Medical Decision Making Medical Decision Making [facility] Narrative: 1812 59 year old female present w/ shortness of breath x 1-2 hours s/p lung bx here at [facility], and right arm x 3 weeks s/p fall imaging ordered prior to arrival to the ed Post op cxr negative for pneumo however due to tachycardia and significant hypoxia another one ordered as at times apical pneumothorax ism maybe missed or not well visualized. On exam patient is evidently tachycardic hypoxic with increased work of breathing she has 82% on her home 3 L. She appears unwell. She was in room 14 and I asked for charge nurse to move her into room 9. Concerns for chronic lung disease versus postoperative pneumothorax versus viral illness. Unlikely ACS. Will rule out pulmonary embolism. Less likely pneumonia however will rule out. Will rule out electrolyte abnormalities. Differential Diagnosis Differential Diagnoses: The differential diagnosis associated with the presentation includes Admission/Observation Consideration of admission/observation: Escalation of care including admission/observation considered Lab Data [facility] Lab Attestation statement: I reviewed the patient's lab results. 06/22/25 08:30 06/22/25 10:30 Labs: Lab Results 06/20/25 06/20/25 06/20/25 Range/Units 18:54 19:02 19:07 WBC 8.3 (4.8-10.8) X10*3/uL RBC 3.39 L (4.20-5.50) X10*6/uL Hgb 10.1 L (12.0-16.0) g/dl Hct 33.5 L (37.0-47.0) % MCV 98.8 H (80.0-98.0) fL MCH 29.8 (27.0-33.0) pg MCHC 30.1 L (31.0-35.0) g/dl RDW 13.7 (11.0-16.0) % Plt Count 324 (160-400) X10*3/uL MPV 9.4 (9.4-12.3) fL Immature Gran % (Auto) 0.1 (0.0-0.4) % Neut % (Auto) 65.6 (45-73) % Lymph % (Auto) 22.2 (20-40) % [place] % (Auto) 9.8 (2-11) % Eos % (Auto) 2.1 (0-4) % Baso % (Auto) 0.2 (0-2) % Lymph # (Auto) 1.8 (1.2-4.9) X10*3/uL [place] # (Auto) 0.8 (0.1-1.2) X10*3/uL Eos # (Auto) 0.2 (0.0-0.4) X10*3/uL Baso # (Auto) 0.0 (0.0-0.2) X10*3/uL Abs Immat Gran (auto) 0.01 (0.00-0.03) X10*3/uL Absolute Neuts (auto) 5.4 (2.0-8.3) x10*3/uL Absolute Nucleated RBC 0.000 (0.0-0.012) X10*3/uL Nucleated RBC % (auto) 0.0 (0.0-0.2) /100WBC PT 11.1 11.0 (10.9-12.4) SEC INR 1.0 1.0 (0.9-1.1) VBG pH 7.44 H (7.32-7.43) VBG pCO2 73 mmHg VBG pO2 79 mmHg VBG HCO3 50 H (22-26) mmol/L VBG O2 Saturation 97.0 % VBG Base Excess 22.3 mmol/L Sodium 138 (135-145) mmol/L Potassium 4.4 (3.3-5.1) mmol/L Chloride 89 L (96-108) mmol/L Carbon Dioxide 42 H* (22-29) mmol/L Anion Gap 11 L (12-20) BUN 5 L (9-16) mg/dL Creatinine 0.47 L (0.5-1.4) mg/dL Estim Creat Clear Calc 96.1 Estimated GFR > 60 Random Glucose 95 (60-115) mg/dL Lactic Acid (0.5-2.0) mmol/L Calcium 9.9 (8.4-10.2) mg/dL Magnesium 1.9 (1.6-2.6) mg/dL Total Bilirubin 0.4 (0.0-1.0) mg/dL AST 31 (5-31) U/L ALT 15 (0-31) U/L Alkaline Phosphatase 116 (39-117) U/L Total Creatine Kinase 60 (26-140) U/L Troponin I High Sens 5.0 D (<3.5-17.0) ng/L NT-Pro-B Natriuret Pep 124.4 (<300) pg/mL Total Protein 6.8 (6.5-8.0) g/dL Albumin 4.0 (3.5-5.0) g/dL Urine Color Urine Appearance Urine pH (5.0-9.0) Ur Specific Burton (1.005-1.025) Urine Protein (Neg-Trace) mg/dL Urine Glucose (UA) (Negative) mg/dL Urine Ketones (Negative) mg/dL Urine Blood (Negative) Urine Nitrite (Negative) Ur Leukocyte Esterase (Negative) Urine RBC (0-2) /HPF Urine WBC (0-5) /HPF Ur Squamous Epith Cells (0-2) /HPF Urine Bacteria (None Seen) Hyaline Casts (0-2) /LPF Influenza Type A (PCR) (Negative) Influenza Type B (PCR) (Negative) RSV RNA Qual (PCR) (Negative) SARS-CoV-2 RNA (RT-PCR) (Negative) 06/20/25 06/21/25 06/21/25 Range/Units 19:17 00:05 01:52 WBC (4.8-10.8) X10*3/uL RBC (4.20-5.50) X10*6/uL Hgb (12.0-16.0) g/dl Hct (37.0-47.0) % MCV (80.0-98.0) fL MCH (27.0-33.0) pg MCHC (31.0-35.0) g/dl RDW (11.0-16.0) % Plt Count (160-400) X10*3/uL MPV (9.4-12.3) fL Immature Gran % (Auto) (0.0-0.4) % Neut % (Auto) (45-73) % Lymph % (Auto) (20-40) % [place] % (Auto) (2-11) % Eos % (Auto) (0-4) % Baso % (Auto) (0-2) % Lymph # (Auto) (1.2-4.9) X10*3/uL [place] # (Auto) (0.1-1.2) X10*3/uL Eos # (Auto) (0.0-0.4) X10*3/uL Baso # (Auto) (0.0-0.2) X10*3/uL Abs Immat Gran (auto) (0.00-0.03) X10*3/uL Absolute Neuts (auto) (2.0-8.3) x10*3/uL Absolute Nucleated RBC (0.0-0.012) X10*3/uL Nucleated RBC % (auto) (0.0-0.2) /100WBC PT (10.9-12.4) SEC INR (0.9-1.1) VBG pH 7.43 (7.32-7.43) VBG pCO2 70 mmHg VBG pO2 119 mmHg VBG HCO3 47 H (22-26) mmol/L VBG O2 Saturation 99.0 % VBG Base Excess 19.1 mmol/L Sodium (135-145) mmol/L Potassium (3.3-5.1) mmol/L Chloride (96-108) mmol/L Carbon Dioxide (22-29) mmol/L Anion Gap (12-20) BUN (9-16) mg/dL Creatinine (0.5-1.4) mg/dL Estim Creat Clear Calc Estimated GFR Random Glucose (60-115) mg/dL Lactic Acid (0.5-2.0) mmol/L Calcium (8.4-10.2) mg/dL Magnesium (1.6-2.6) mg/dL Total Bilirubin (0.0-1.0) mg/dL AST (5-31) U/L ALT (0-31) U/L Alkaline Phosphatase (39-117) U/L Total Creatine Kinase (26-140) U/L Troponin I High Sens (<3.5-17.0) ng/L NT-Pro-B Natriuret Pep (<300) pg/mL Total Protein (6.5-8.0) g/dL Albumin (3.5-5.0) g/dL Urine Color Yellow Urine Appearance Clear Urine pH 6.0 (5.0-9.0) Ur Specific Burton >= 1.030 H (1.005-1.025) Urine Protein Negative (Neg-Trace) mg/dL Urine Glucose (UA) Negative (Negative) mg/dL Urine Ketones 15 (Negative) mg/dL Urine Blood Negative (Negative) Urine Nitrite Positive H (Negative) Ur Leukocyte Esterase Moderate (2+) H (Negative) Urine RBC 0-2 (0-2) /HPF Urine WBC >50 H (0-5) /HPF Ur Squamous Epith Cells 0-2 (0-2) /HPF Urine Bacteria 4+ (None Seen) Hyaline Casts 0-2 (0-2) /LPF Influenza Type A (PCR) NEGATIVE (Negative) Influenza Type B (PCR) NEGATIVE (Negative) RSV RNA Qual (PCR) NEGATIVE (Negative) SARS-CoV-2 RNA (RT-PCR) NEGATIVE (Negative) 06/21/25 Range/Units 02:39 WBC (4.8-10.8) X10*3/uL RBC (4.20-5.50) X10*6/uL Hgb (12.0-16.0) g/dl Hct (37.0-47.0) % MCV (80.0-98.0) fL MCH (27.0-33.0) pg MCHC (31.0-35.0) g/dl RDW (11.0-16.0) % Plt Count (160-400) X10*3/uL MPV (9.4-12.3) fL Immature Gran % (Auto) (0.0-0.4) % Neut % (Auto) (45-73) % Lymph % (Auto) (20-40) % [place] % (Auto) (2-11) % Eos % (Auto) (0-4) % Baso % (Auto) (0-2) % Lymph # (Auto) (1.2-4.9) X10*3/uL [place] # (Auto) (0.1-1.2) X10*3/uL Eos # (Auto) (0.0-0.4) X10*3/uL Baso # (Auto) (0.0-0.2) X10*3/uL Abs Immat Gran (auto) (0.00-0.03) X10*3/uL Absolute Neuts (auto) (2.0-8.3) x10*3/uL Absolute Nucleated RBC (0.0-0.012) X10*3/uL Nucleated RBC % (auto) (0.0-0.2) /100WBC PT (10.9-12.4) SEC INR (0.9-1.1) VBG pH (7.32-7.43) VBG pCO2 mmHg VBG pO2 mmHg VBG HCO3 (22-26) mmol/L VBG O2 Saturation % VBG Base Excess mmol/L Sodium (135-145) mmol/L Potassium (3.3-5.1) mmol/L Chloride (96-108) mmol/L Carbon Dioxide (22-29) mmol/L Anion Gap (12-20) BUN (9-16) mg/dL Creatinine (0.5-1.4) mg/dL Estim Creat Clear Calc Estimated GFR Random Glucose (60-115) mg/dL Lactic Acid 1.0 (0.5-2.0) mmol/L Calcium (8.4-10.2) mg/dL Magnesium (1.6-2.6) mg/dL Total Bilirubin (0.0-1.0) mg/dL AST (5-31) U/L ALT (0-31) U/L Alkaline Phosphatase (39-117) U/L Total Creatine Kinase (26-140) U/L Troponin I High Sens (<3.5-17.0) ng/L NT-Pro-B Natriuret Pep (<300) pg/mL Total Protein (6.5-8.0) g/dL Albumin (3.5-5.0) g/dL Urine Color Urine Appearance Urine pH (5.0-9.0) Ur Specific Burton (1.005-1.025) Urine Protein (Neg-Trace) mg/dL Urine Glucose (UA) (Negative) mg/dL Urine Ketones (Negative) mg/dL Urine Blood (Negative) Urine Nitrite (Negative) Ur Leukocyte Esterase (Negative) Urine RBC (0-2) /HPF Urine WBC (0-5) /HPF Ur Squamous Epith Cells (0-2) /HPF Urine Bacteria (None Seen) Hyaline Casts (0-2) /LPF Influenza Type A (PCR) (Negative) Influenza Type B (PCR) (Negative) RSV RNA Qual (PCR) (Negative) SARS-CoV-2 RNA (RT-PCR) (Negative) Independent Interpretation I performed an independent interpretation of an: Plain X-Ray and Ultrasound (RUE DVT negative ) Interpretation: XR/XR forearm RT 2V IMPRESSION: Question nondisplaced radial styloid fracture. Recommend follow up right wrist x-ray. XR/XR humerus RT IMPRESSION: Right humeral neck fracture. Critical Care Time Critical Care Time Critical Care Time: Yes Total Critical Care Time: 45 Attestation: I attest to this time spent taking care of the patient, obtaining history, physical, reviewing labs, imaging, treatment of patients condition +/- specialist/hospitalist consult +/- procedure Discharge Plan Discharge Clinical Impression: Hemiparesis affecting right side as late effect of cerebrovascular accident, Oxygen dependent, Chronic lung disease, Acute UTI COPD (chronic obstructive pulmonary disease) Qualifiers: COPD type: emphysema Emphysema type: panlobular Qualified Code(s): J43.1 - Panlobular emphysema Respiratory failure with hypoxia Qualifiers: Chronicity: acute on chronic Qualified Code(s): J96.21 - Acute and chronic respiratory failure with hypoxia Patient Disposition: Admitted As Inpatient Interventions: Admission Worksheet (ED) Last Done: 06/21/25 14:36 Discharge Date/Time: 06/21/25 15:19
[2025-06-20 18:47] VITALS: PULSE 109; RESP 24; O2SAT 98
[2025-06-20] MEDS: Albuterol Sulfate 7.5 MG, Albuterol Sulfate (0.083%) 2.5 MG 10 MG INHALE (18:47)
[2025-06-20 18:58] LABS: MANUAL DIFF FLAG NO
[2025-06-20] MEDS: Magnesium Sulfate/H2O 2 GM/50 ML PIGGYBACK IV (18:59)
--- NOTE | 2025-06-20 19:01 | PC.NURSE ---
Witness molst at the bedside with CHESTER joe, pt tanisha, was medicated per nov.
[2025-06-20 19:02] LABS: Hematocrit 33.5 % (37.0-47.0); Hemoglobin 10.1 g/dl (12.0-16.0); Imm Gran Abs Auto 0.01 X10*3/uL (0.00-0.03); Imm Gran Pct Auto 0.1 % (0.0-0.4); Lymphocytes Absolute Auto 1.8 X10*3/uL (1.2-4.9); Mean Corpuscular HGB Conc 30.1 g/dl (31.0-35.0); Mean Corpuscular Hemoglobin 29.8 pg (27.0-33.0); Mean Corpuscular Volume 98.8 fL (80.0-98.0); NRBC Abs Auto 0.000 X10*3/uL (0.0-0.012); NRBC Pct Auto 0.0 /100WBC (0.0-0.2); Platelet Count 324 X10*3/uL (160-400); Red Blood Count 3.39 X10*6/uL (4.20-5.50); White Blood Count 8.3 X10*3/uL (4.8-10.8)
[2025-06-20 19:08] LABS: INTERNATIONAL NORM RATIO 1.0 (0.9-1.1); Prothrombin Time 11.1 SEC (10.9-12.4)
[2025-06-20 19:12] LABS: Venous Blood Gas Refer to POC result
[2025-06-20 19:13] LABS: VBG HCO3 50 mmol/L (22-26); VBG O2 % Saturation 97.0 %
[2025-06-20 19:13] LABS: INTERNATIONAL NORM RATIO 1.0 (0.9-1.1); Prothrombin Time 11.0 SEC (10.9-12.4)
[2025-06-20 19:16] VITALS: BP 169/57; PULSE 128; RESP 22; TEMP 36.9; O2SAT 94
[2025-06-20 19:22] LABS: Alanine Aminotransferase 15 U/L (0-31); Albumin Level 4.0 g/dL (3.5-5.0); Anion Gap 11 (12-20); Aspartate Amino Transferase 31 U/L (5-31); Blood Urea Nitrogen 5 mg/dL (9-16); Calcium 9.9 mg/dL (8.4-10.2); Carbon Dioxide 42 mmol/L (22-29); Chloride 89 mmol/L (96-108); Creatinine Clr Calc Pharmacy 96.1; Estimated Glomerular Filt Rate > 60; Magnesium 1.9 mg/dL (1.6-2.6); Potassium 4.4 mmol/L (3.3-5.1); Sodium 138 mmol/L (135-145); Total Protein 6.8 g/dL (6.5-8.0)
[2025-06-20 19:23] LABS: NT Pro B Type Natriuretic Pept 124.4 pg/mL (<300)
[2025-06-20 19:34] LABS: Alkaline Phosphatase 116 U/L (39-117)
[2025-06-20 20:03] LABS: Resp Syncy Virus RNA Qual PCR NEGATIVE (Negative); SARS COV2 PCR INHOUSE NEGATIVE (Negative)
[2025-06-20 20:23] LABS: Troponin-I High Sensitivity 5.0 ng/L (<3.5-17.0)
[2025-06-20] MEDS: iohexoL 350 MG/ML 100 ML INFUS..BTL IV (20:34)
[2025-06-20 22:08] VITALS: BP 174/59; PULSE 112; RESP 18; O2SAT 90
[2025-06-21] VITALS (12 sets, daily range): BP systolic 122–171; BP diastolic 57–79; PULSE 74–117; RESP 16–24; TEMP 35.7–36.9; O2SAT 94–100
[2025-06-21 00:09] LABS: VBG HCO3 47 mmol/L (22-26); VBG O2 % Saturation 99.0 %
[2025-06-21 00:10] LABS: Venous Blood Gas Refer to POC result
--- NOTE | 2025-06-21 00:26 | PC.NURSE ---
Iv infiltrated pt brought back to room by cardiac tech, CT notified at 21:[address], CT attempted to take patient again at 00:10am, notified [facility] and Dr. Chacon line not appropriate for CT A, second lined placed in right forearm, Notified at 00:[address] A
--- NOTE | 2025-06-21 01:01 | MHC.EDTECH ---
@0100 Patient used call [facility] for a warm blanket. Warm blanket given to patient, water returned to patient. Patient stated all set at this time.
--- NOTE | 2025-06-21 01:02 | MHC.EDTECH ---
@[id number] patient used call [facility] for her phone that was charging at the [place] desk.
[2025-06-21] MEDS: iohexoL 350 MG/ML 100 ML INFUS..BTL 65 ML IV (01:43)
[2025-06-21 01:57] LABS: Appearance Urine Clear; Glucose Urine UA Negative (Negative); PH 6.0 (5.0-9.0); Specific Gravity - Urine >= 1.030 (1.005-1.025); UMIC TRIGGER UACC YES
[2025-06-21 02:00] LABS: UACC Culture Trigger YES
--- NOTE | 2025-06-21 02:21 | PC.NURSE ---
lactic and blood culture being collected.
--- NOTE | 2025-06-21 02:48 | PC.NURSE ---
pt medicated per mar.
--- NOTE | 2025-06-21 03:21 | PC.NURSE ---
pt medicated per mar.
[2025-06-21] MEDS: levalbuterol HCL 1.25 MG, Ipratropium Bromide 0.5 MG INHALE ×5 (03:25→18:26)
--- NOTE | 2025-06-21 03:45 | PC.NURSE ---
pt ringing [facility] on stop for to adjust beds and personnel needs
--- NOTE | 2025-06-21 05:23 | P.HPHOSP_ITS ---
History of Present Illness Date of Service: 06/21/25 Attending physician on admission: Ariel Shah Chief Complaint: R arm pain Patient is a 59-year-old female with a past medical history significant for seizures, right-sided stroke with deficits, takotsubo cardiomyopathy, chronic respiratory failure with hypercapnia on 4 L at home, GERD, anemia, who presented to the ED initially reporting shortness of breath s/p lung biopsy yesterday. ED provider was able to look into testing post biopsy and had a negative chest x- ray 1 hour postop. The patient denies any shortness of breath, wheezing, chest pain or URI symptoms at this time however she did report this to the ED provider. She reported to me that she presented to the emergency department due to right upper extremity pain after a fall 2-3 weeks ago. She has significant bruising in the right arm and was found to have a right humeral neck fracture and possible right styloid fracture. Review of Systems 2 Constitutional: Constitutional: Denies body ache(s), Denies chills, Denies fatigue, Denies fever(s) and Denies headache(s) Eyes: Eyes: Denies change in vision ENT: Denies headache(s), Denies nasal congestion and Denies sore throat Cardiovascular: Cardiovascular: Denies chest pain, Denies rapid heart rate, Denies leg edema, Denies lightheadedness and Denies dyspnea Respiratory: Respiratory: Denies chest congestion, Denies cough, Denies dyspnea and Denies wheezing Gastrointestinal: Gastrointestinal: Denies abdominal pain, Denies nausea and Denies vomiting Genitourinary: Genitourinary: Denies difficulty voiding, Denies dysuria and Denies urinary urgency Musculoskeletal: Musculoskeletal: Reports as per HPI Integumentary/Breasts: Skin/Breast: Denies rash Neurologic: Denies confusion and Denies headache(s) Psychiatric: Psychiatric: Denies confusion Endocrine: Endocrine: Denies fatigue Hematologic/Lymphatic: Hematologic/Lymphatic: Denies easy bleeding and Denies easy bruising Allergic/Immunologic: Allergic/Immunologic: Denies wheezing [facility] Medical History Seizure (~11/2021) History of multiple cerebrovascular accidents (CVAs) Hemiparesis affecting right side as late effect of cerebrovascular accident Aphasia History of non-ST elevation myocardial infarction (NSTEMI) (~11/2021) History of acute respiratory distress syndrome (ARDS) (~08/2021) Coronary artery disease Takotsubo cardiomyopathy COPD (chronic obstructive pulmonary disease) Respiratory failure with hypoxia Oxygen dependent Personal history of nicotine dependence Hemoptysis Closed subcapital fracture of femur Cocaine abuse Hypertensive emergency Normocytic anemia History of drug abuse Cocaine abuse Major depression, recurrent Acute CHF (congestive heart failure) Hypercapnic respiratory failure, chronic Asymptomatic carotid artery stenosis with infarction Chronic GERD Environmental allergies Anxiety, generalized Lipid disorder Asthma, moderate Family History Father Substance abuse Mother Brain cancer Maternal Grandfather History of heart attack Maternal Grandmother History of heart attack Paternal Grandfather No problems noted. Paternal Grandmother No problems noted. Brother No problems noted. Brother No problems noted. Son No problems noted. Daughter No problems noted. Other Mental health disorder Surgical History History of left-sided carotid endarterectomy (~09/2012) History of tonsillectomy and adenoidectomy Social History Household Members: None Household Members Other:: daughter Housing: Apartment Do you presently have visiting nurse or other home services: No Alcohol intake: former Patient Tobacco Use Status: Former Tobacco user Tobacco use type: Cigarette Cigarettes Per Day: 2 Years Smoked: COUPLE YEAR AGO PER PT e-Cigarette/Vaping Use: Never Used Second Hand Smoke Exposure: No Advance Directives: Yes Advance Directives on File: Yes Advance Directives Date on File: 11/25/21 service: No Current occupational status: disabled Cognitive needs: No Hearing needs: No Vision needs: No Meds Allergies Allergy/AdvReac Type Severity Reaction Status Date / Time crab Allergy Unknown Hives Verified 06/20/25 17:20 penicillin V Allergy Unknown hives Verified 06/20/25 17:20 Penicillins (PENICILLINS) Allergy Unknown hives Verified 06/20/25 17:20 SEASONAL ALLERGIES Allergy Mild RUNNY NOSE Uncoded 04/29/25 14:45 Active Medications: Current Medications Levalbuterol HCl 1.25 mg/ (Ipratropium [place] 0.5 mg) 0 mg INHALE RQ4H WHILE AWAKE LADONNA Levalbuterol HCl (Levalbuterol Hcl 1.25 Mg/3 Ml Vial.Neb) 1.25 mg INHALE Q4H PRN PRN Reason: Shortness of Breath/Wheezing Home Medications ?Medication ?Instructions ?Recorded ?Confirmed ?Last Taken ?Type polyethylene glycol 3350 17 gram 17 g PO DAILY PRN Con stipation 01/03/24 06/21/25 Unknown History oral powder packet Physical Exam 2 Vital Signs and Narrative: Vital Signs: Last Vital Signs Temp 96.3 F L 06/21/25 00:42 Pulse 117 H 06/21/25 03:27 Resp 21 H 06/21/25 03:27 BP 127/57 L 06/21/25 00:42 Pulse Ox 98 06/21/25 00:42 O2 Del Method Nasal Cannula 06/21/25 00:42 O2 Flow Rate 4 06/21/25 00:42 Oxygen Flow Rate 3 06/20/25 17:17 BMI result Body Mass Index 20.8 General: AOx3, no acute distress Resp: Significantly diminished lung sounds throughout, no wheezing or crackles CVS: Tachycardic, normal rhythm GI: +BS, NT, no distention Skin: Warm, dry Neuro: Cranial nerves II-XII grossly intact bilaterally. Motor grossly intact bilaterally Extremities: No pitting edema. Significant bruising right upper extremity Psych: Appropriate affect ? Confused, completely different history reported to myself and ED provider Const: General: No confusion Orientation/consciousness: No confusion Neuro: General: No confusion Results Labs 06/21/25 05:48 06/21/25 05:48 Labs: Laboratory Results - last 24 hr 06/20/25 06/20/25 06/20/25 18:54 19:02 19:07 MCV 98.8 H MCH 29.8 MCHC 30.1 L RDW 13.7 Plt Count 324 MPV 9.4 Immature Gran % (Auto) 0.1 Neut % (Auto) 65.6 Lymph % (Auto) 22.2 [place] % (Auto) 9.8 Eos % (Auto) 2.1 Baso % (Auto) 0.2 Lymph # (Auto) 1.8 [place] # (Auto) 0.8 Eos # (Auto) 0.2 Baso # (Auto) 0.0 Abs Immat Gran (auto) 0.01 Absolute Neuts (auto) 5.4 Absolute Nucleated RBC 0.000 Nucleated RBC % (auto) 0.0 PT 11.1 11.0 INR 1.0 1.0 VBG pH 7.44 H VBG pCO2 73 VBG pO2 79 VBG HCO3 50 H VBG O2 Saturation 97.0 VBG Base Excess 22.3 Anion Gap 11 L Estim Creat Clear Calc 96.1 Estimated GFR > 60 Random Glucose 95 Lactic Acid Calcium 9.9 Magnesium 1.9 Total Bilirubin 0.4 AST 31 ALT 15 Alkaline Phosphatase 116 Total Creatine Kinase 60 Troponin I High Sens 5.0 D NT-Pro-B Natriuret Pep 124.4 Total Protein 6.8 Albumin 4.0 Urine Color Urine Appearance Urine pH Ur Specific [place] Urine Protein Urine Glucose (UA) Urine Ketones Urine Blood Urine Nitrite Ur Leukocyte Esterase Urine RBC Urine WBC Ur Squamous Epith Cells Urine Bacteria Hyaline Casts Influenza Type A (PCR) Influenza Type B (PCR) RSV RNA Qual (PCR) SARS-CoV-2 RNA (RT-PCR) 06/20/25 06/21/25 06/21/25 19:17 00:05 01:52 MCV MCH MCHC RDW Plt Count MPV Immature Gran % (Auto) Neut % (Auto) Lymph % (Auto) [place] % (Auto) Eos % (Auto) Baso % (Auto) Lymph # (Auto) [place] # (Auto) Eos # (Auto) Baso # (Auto) Abs Immat Gran (auto) Absolute Neuts (auto) Absolute Nucleated RBC Nucleated RBC % (auto) PT INR VBG pH 7.43 VBG pCO2 70 VBG pO2 119 VBG HCO3 47 H VBG O2 Saturation 99.0 VBG Base Excess 19.1 Anion Gap Estim Creat Clear Calc Estimated GFR Random Glucose Lactic Acid Calcium Magnesium Total Bilirubin AST ALT Alkaline Phosphatase Total Creatine Kinase Troponin I High Sens NT-Pro-B Natriuret Pep Total Protein Albumin Urine Color Yellow Urine Appearance Clear Urine pH 6.0 Ur Specific [place] >= 1.030 H Urine Protein Negative Urine Glucose (UA) Negative Urine Ketones 15 Urine Blood Negative Urine Nitrite Positive H Ur Leukocyte Esterase Moderate (2+) H Urine RBC 0-2 Urine WBC >50 H Ur Squamous Epith Cells 0-2 Urine Bacteria 4+ Hyaline Casts 0-2 Influenza Type A (PCR) NEGATIVE Influenza Type B (PCR) NEGATIVE RSV RNA Qual (PCR) NEGATIVE SARS-CoV-2 RNA (RT-PCR) NEGATIVE 06/21/25 02:39 MCV MCH MCHC RDW Plt Count MPV Immature Gran % (Auto) Neut % (Auto) Lymph % (Auto) [place] % (Auto) Eos % (Auto) Baso % (Auto) Lymph # (Auto) [place] # (Auto) Eos # (Auto) Baso # (Auto) Abs Immat Gran (auto) Absolute Neuts (auto) Absolute Nucleated RBC Nucleated RBC % (auto) PT INR VBG pH VBG pCO2 VBG pO2 VBG HCO3 VBG O2 Saturation VBG Base Excess Anion Gap Estim Creat Clear Calc Estimated GFR Random Glucose Lactic Acid 1.0 Calcium Magnesium Total Bilirubin AST ALT Alkaline Phosphatase Total Creatine Kinase Troponin I High Sens NT-Pro-B Natriuret Pep Total Protein Albumin Urine Color Urine Appearance Urine pH Ur Specific [place] Urine Protein Urine Glucose (UA) Urine Ketones Urine Blood Urine Nitrite Ur Leukocyte Esterase Urine RBC Urine WBC Ur Squamous Epith Cells Urine Bacteria Hyaline Casts Influenza Type A (PCR) Influenza Type B (PCR) RSV RNA Qual (PCR) SARS-CoV-2 RNA (RT-PCR) Assessment and Plan (1) Acute on chronic respiratory failure with hypoxia and hypercapnia: Status: Acute (2) Sepsis: Status: Acute (3) Acute UTI: Status: Acute (4) Acute exacerbation of COPD with asthma: Status: Acute (5) Right humeral fracture: Status: Acute Plan Patient is a 59-year-old female with a past medical history significant for seizures, hx stroke with right sided deficits, takotsubo cardiomyopathy, chronic respiratory failure with hypercapnia on 4 L at home, GERD, anemia, who presented to the ED initially reporting shortness of breath s/p lung biopsy yesterday. Pt with unrelabe history, found to have acute hypoxic respiratory failure with hypercapnia, UTI, sepsis and possible COPD/asthma exacerbation Acute on chronic respiratory failure with hypoxia and hypercapnia secondary to acute COPD exacerbation - solumedrol - levalubuterol/ipratropium - titrate O2, pt back at 4L basline, goal 88-92% - monitor CBC and BMP sepsis with UTI - ceftriaxone pending culture - follow CBC and BMP R humerus/?styloid fracture - sling - ortho consult lung nodules on imaging - continue outpt monitoring Seizures - Keppra and gabapentin GERD - ppi chronic anemia, stable - iron - monitor CBC History CVA with R sided deficits and speech deficit - pt reports is at baseline full code VTE prophy: heparin Patient with acute on chronic respiratory failure with hypoxia and hypercapnia secondary to acute COPD exacerbation complicated by sepsis with UTI, requiring admission for at least 2 midnight stay for IV antibiotics, breathing treatments and monitoring. Quality Stroke Does the patient have a stroke diagnosis?: No VTE Prior VTE?: No VTE Risk Level:: Medical - moderate - high VTE Device Contraindication: Treatment Not Indicated VTE Drug Contraindication: N/A - Med Ordered
[2025-06-21 05:52] LABS: Hematocrit 32.8 % (37.0-47.0); Hemoglobin 10.1 g/dl (12.0-16.0); Imm Gran Abs Auto 0.01 X10*3/uL (0.00-0.03); Imm Gran Pct Auto 0.3 % (0.0-0.4); Lymphocytes Absolute Auto 0.4 X10*3/uL (1.2-4.9); MANUAL DIFF FLAG NO; Mean Corpuscular HGB Conc 30.8 g/dl (31.0-35.0); Mean Corpuscular Hemoglobin 29.7 pg (27.0-33.0); Mean Corpuscular Volume 96.5 fL (80.0-98.0); NRBC Abs Auto 0.000 X10*3/uL (0.0-0.012); NRBC Pct Auto 0.0 /100WBC (0.0-0.2); Platelet Count 309 X10*3/uL (160-400); Red Blood Count 3.40 X10*6/uL (4.20-5.50); White Blood Count 3.1 X10*3/uL (4.8-10.8)
--- NOTE | 2025-06-21 05:55 | PC.NURSE ---
pt medicated per mar.
[2025-06-21 06:14] LABS: Anion Gap 15 (12-20); Blood Urea Nitrogen 5 mg/dL (9-16); Calcium 9.5 mg/dL (8.4-10.2); Carbon Dioxide 39 mmol/L (22-29); Chloride 86 mmol/L (96-108); Creatinine Clr Calc Pharmacy 96.1; Estimated Glomerular Filt Rate > 60; Potassium 4.7 mmol/L (3.3-5.1); Sodium 135 mmol/L (135-145)
--- NOTE | 2025-06-21 07:02 | PC.NURSE ---
Report given to SCAHA Stover.
--- NOTE | 2025-06-21 07:14 | PC.NURSE ---
Assumed care of patient. Pt is A+Ox4, anxious. RR even and unlabored, denies SOB at this time, on 4L NC and speaking in full and complete sentences. Respiratory here to give AM breathing treatment. Pt c/o 06/21 pain in right arm but no med coverae. reached out to provider Pepper Huynh to request pain medications. Pt denies any CP or other pain/discomfort at this time.
[2025-06-21] MEDS: oxyCODONE HCl Immed Release 5 MG TABLET PO (08:30)
[2025-06-21] MEDS: Aspirin Enteric Coated 81 MG TABLET.DR PO (08:30)
[2025-06-21] MEDS: Ferrous Sulfate 324 MG TABLET.DR PO ×2 (08:30→21:06)
[2025-06-21] MEDS: 0.9 % Sodium Chloride Flush 3 ML SYRINGE IVFLUSH ×3 (08:31→21:06)
--- NOTE | 2025-06-21 08:31 | PHA.MEDREC ---
Addendum entered by Agus Mosley, PeteD 06/21/25 09:14: MED REC CHECKED BY [facility] Original Note: Pharmacy Consult ? Medication Reconciliation Pharmacy reviewed med rec with. Spoke with pt and she was able to confirm most of her medications but then got a little confused mid way through and was not sure on the rest of them. Utilized claims to confirm the rest of the med rec.
--- NOTE | 2025-06-21 11:58 | PC.NURSE ---
Assumed care. Pt resting comfortably in bed. Denies needs at this time.
--- NOTE | 2025-06-21 11:59 | HO.NURTONUR ---
Pt alert and oriented. Lives at home alone, uses walker and wheelchair at home. Has in-home services with [facility]. Admitted with resp failure following lung biopsy yesterday, UTI, sepsis, COPD/asthma exacerbation. Pt has recent humerus fracture r/t fall three weeks ago, arm in a sling. Saline locked, 22G in left hand. Using 4L o2, which is baseline.
--- NOTE | 2025-06-21 15:40 | PM.EVENT ---
Event Note Date of Service: 06/21/25 Event Note: Pt is a 59-year-old female with a PMH significant for seizures, hx stroke with right sided deficits, takotsubo cardiomyopathy, chronic respiratory failure with hypercapnia on 4 L at home, GERD, and anemia who is admitted to the hospital for acute hypoxic respiratory failure with hypercapnia, UTI with sepsis, and right humerus fracture sustained in a fall 3 weeks ago. Pt seen and evaluated in the emergency room where she is resting comfortably in bed. Reports that her breathing is better and essentially back to baseline. No significant cough. Right shoulder and arm pain better controlled. Have reviewed admitting providers HPI and agree with assessment and plan. Will await orthopedic input about possible surgical intervention. Time Spent With Patient Time: Total time managing care of this patient today ____ minutes.
[2025-06-22] VITALS (16 sets, daily range): BP systolic 126–158; BP diastolic 56–74; PULSE 67–100; RESP 14–20; TEMP 36–36.4; O2SAT 88–100
[2025-06-22] MEDS: levalbuterol HCL 1.25 MG, Ipratropium Bromide 0.5 MG INHALE ×4 (07:39→18:27)
[2025-06-22] MEDS: 0.9 % Sodium Chloride Flush 3 ML SYRINGE IVFLUSH (08:31)
[2025-06-22] MEDS: Ferrous Sulfate 324 MG TABLET.DR PO ×2 (08:32→21:43)
[2025-06-22] MEDS: Aspirin Enteric Coated 81 MG TABLET.DR PO (08:32)
[2025-06-22 08:46] LABS: MANUAL DIFF FLAG NO
[2025-06-22 08:52] LABS: Hematocrit 33.8 % (37.0-47.0); Hemoglobin 10.4 g/dl (12.0-16.0); Imm Gran Abs Auto 0.03 X10*3/uL (0.00-0.03); Imm Gran Pct Auto 0.4 % (0.0-0.4); Lymphocytes Absolute Auto 0.6 X10*3/uL (1.2-4.9); Mean Corpuscular HGB Conc 30.8 g/dl (31.0-35.0); Mean Corpuscular Hemoglobin 29.9 pg (27.0-33.0); Mean Corpuscular Volume 97.1 fL (80.0-98.0); NRBC Abs Auto 0.000 X10*3/uL (0.0-0.012); NRBC Pct Auto 0.0 /100WBC (0.0-0.2); Platelet Count 312 X10*3/uL (160-400); Red Blood Count 3.48 X10*6/uL (4.20-5.50); White Blood Count 8.1 X10*3/uL (4.8-10.8)
--- NOTE | 2025-06-22 09:24 | PM.EVENT ---
Event Note Date of Service: 06/22/25 Event Note: Ms. Bragg is a 59-year-old female who presented to the ED on 06/20/25. HPI obtained from the ED: Frail appearing chronically ill with past medical history significant for seizure, CVA with right-sided hemiparesis, takotsubo cardiomyopathy, respiratory failure with hypoxia, COPD, GERD, depression, chronic lung disease, normocytic anemia, malnutrition who presents to the emergency department with complaints of shortness of breath status post lung biopsy. According to nursing staff there was a 1 hour post biopsy x-ray done which was negative for pneumothorax. Patient reports she feels overall unwell and she reports significant right upper extremity pain, and discomfort after a fall 2-3 days ago. X-rays of the right shoulder and right wrist reviewed and significant for: Right radial styloid fx: recommend volar splint Right proximal humerus fx: Sling NWB RUE Encourage gentle ROM of the hand is able with hemiparesis present. May f/u out patient with orthopedics Time Spent With Patient Time: Total time managing care of this patient today ____ minutes.
[2025-06-22 10:56] LABS: Anion Gap 16 (12-20); Blood Urea Nitrogen 15 mg/dL (9-16); Calcium 9.0 mg/dL (8.4-10.2); Carbon Dioxide 33 mmol/L (22-29); Chloride 89 mmol/L (96-108); Creatinine Clr Calc Pharmacy 74.0; Estimated Glomerular Filt Rate > 60; Potassium 4.9 mmol/L (3.3-5.1); Sodium 133 mmol/L (135-145)
[2025-06-22] MEDS: oxyCODONE HCl Immed Release 5 MG TABLET PO ×2 (17:01→21:42)
--- NOTE | 2025-06-22 17:18 | HO.PM.IMPN ---
Subjective Subjective Date of Service: 06/22/25 Interval History: Breathing and cough improved Pain slightly better in right arm Orthopedics recommended volar splint and sling with outpatient follow up No acute events overnight Review of Systems Review of Systems: Yes all other systems are reviewed and are negative Physical Exam Exam: Exam: General: AOx3, no acute distress. Elderly and frail-looking Resp: CTA bilaterally CVS: S1, S2, RRR GI: +BS, NT, no distention Skin: Warm, dry Neuro: Cranial nerves II-XII grossly intact bilaterally. Motor grossly intact bilaterally Extremities: No edema. Right shoulder and arm tender to palpation; ROM reduced secondary to pain. RUE in volar splint and sling Psych: Appropriate affect Vital Signs: Vital Signs: Last Vital Signs Temp 97.0 F 06/22/25 15:35 Pulse 81 06/22/25 15:35 Resp 20 06/22/25 15:35 BP 134/62 06/22/25 15:35 Pulse Ox 100 06/22/25 15:35 O2 Del Method Room Air 06/22/25 15:35 O2 Flow Rate 4 06/22/25 12:00 Oxygen Flow Rate 3 06/20/25 17:17 BMI result Body Mass Index 20.8 Objective Data Active Medications Acetaminophen (Acetaminophen 325 Mg Tablet) 650 mg PO Q6H PRN PRN Reason: Pain, Mild 1-3,fever,headache Last Admin: 06/21/25 05:50 Dose: 650 mg Documented By: ISACC Aspirin (Aspirin Enteric Coated 81 Mg Tablet.) 81 mg PO DAILY [facility] Last Admin: 06/22/25 08:32 Dose: 81 mg Documented By: MAHESH Atorvastatin Calcium (Atorvastatin Calcium 40 Mg Tablet) 40 mg PO BEDTIME [facility] Last Admin: 06/21/25 21:06 Dose: 40 mg Documented By: JOSE Calcium Carbonate (Calcium Carbonate 750 Mg Tab.Chew) 750 mg PO Q4H PRN PRN Reason: Heartburn Levalbuterol HCl 1.25 mg/ (Ipratropium [place] 0.5 mg) 0 mg INHALE RQ4H WHILE AWAKE [facility] Last Admin: 06/22/25 15:20 Dose: 5.5 dose Documented By: TOD Ferrous Sulfate (Ferrous Sulfate 324 Mg Tablet.) 324 mg PO BID [facility] Last Admin: 06/22/25 08:32 Dose: 324 mg Documented By: MAHESH Folic Acid (Folic Acid 1 Mg Tablet) 1 mg PO DAILY [facility] Last Admin: 06/22/25 08:32 Dose: 1 mg Documented By: MAHESH Gabapentin (Gabapentin 300 Mg Capsule) 300 mg PO TID [facility] Last Admin: 06/22/25 15:37 Dose: 300 mg Documented By: MAHESH Heparin Sodium (Porcine) (Heparin Sodium,Porcine 5,000 Unit/Ml Vial) 5,000 unit SUBCUT Q8H [facility] Last Admin: 06/22/25 15:38 Dose: 5,000 unit Documented By: MAHESH Ketorolac Tromethamine (Ketorolac Tromethamine 15 Mg/Ml Vial) 15 mg IVPUSH Q6H PRN PRN Reason: Pain, Moderate(Pain Scale 4-6) Last Admin: 06/22/25 15:38 Dose: 15 mg Documented By: MAHESH Levalbuterol HCl (Levalbuterol Hcl 1.25 Mg/3 Ml Vial.Neb) 1.25 mg INHALE Q4H PRN PRN Reason: Shortness of Breath/Wheezing Levetiracetam (Levetiracetam 500 Mg Tablet) 500 mg PO BID [facility] Last Admin: 06/22/25 08:32 Dose: 500 mg Documented By: MAHESH Magnesium Hydroxide (Milk Of Magnesia 30 Ml Oral.Susp) 30 ml PO DAILY PRN PRN Reason: Constipation Melatonin (Melatonin 3 Mg Tablet) 6 mg PO BEDTIME PRN PRN Reason: Insomnia Methylprednisolone Sodium Succinate (Methylprednisolone Sod Succ 125 Mg/2 Ml Vial) 60 mg IVPUSH Q12H [facility] Last Admin: 06/22/25 05:59 Dose: 60 mg Documented By: JOSE Metoprolol Tartrate (Metoprolol Tartrate 25 Mg Tablet) 25 mg PO BID [facility]; Protocol Last Admin: 06/22/25 08:32 Dose: 25 mg Documented By: MAHESH Mirtazapine (Mirtazapine 30 Mg Tablet) 30 mg PO BEDTIME [facility] Last Admin: 06/21/25 21:06 Dose: 30 mg Documented By: JOSE Omeprazole (Omeprazole 20 Mg Capsule.) 20 mg PO DAILY@0630 [facility] Last Admin: 06/22/25 06:00 Dose: 20 mg Documented By: JOSE Ondansetron HCl (Ondansetron Hcl 4 Mg/2 Ml Vial) 4 mg IVPUSH Q8H PRN PRN Reason: Nausea and Vomiting Oxycodone HCl (Oxycodone Hcl Immed Release 5 Mg Tablet) 5 mg PO Q4H PRN PRN Reason: Pain, Severe (Pain Scale 7-10) Last Admin: 06/22/25 17:01 Dose: 5 mg Documented By: MAHESH Polyethylene Glycol (Polyethylene Glycol 3350 17 Gm Powd.Pack) 17 gm PO DAILY PRN PRN Reason: Constipation Sertraline HCl (Sertraline Hcl 50 Mg Tablet) 50 mg PO DAILY [facility] Last Admin: 06/22/25 08:32 Dose: 50 mg Documented By: MAHESH Sodium Chloride (0.9 % Sodium Chloride Flush 3 Ml Syringe) 3 ml IVFLUSH QSHIFT [facility] Last Admin: 06/22/25 15:09 Dose: Not Given Documented By: MAHESH Non-Admin Reason: Previously Administered Tramadol HCl (Tramadol Hcl 50 Mg Tablet) 50 mg PO Q6H PRN PRN Reason: Pain, Moderate(Pain Scale 4-6) Labs 06/22/25 08:30 06/22/25 10:30 Labs: Laboratory Results - last 24 hr 06/22/25 06/22/25 08:30 10:30 MCV 97.1 MCH 29.9 MCHC 30.8 L RDW 13.9 Plt Count 312 MPV 10.5 Immature Gran % (Auto) 0.4 Neut % (Auto) 85.4 H Lymph % (Auto) 7.4 L [place] % (Auto) 6.7 Eos % (Auto) 0.0 Baso % (Auto) 0.1 Lymph # (Auto) 0.6 L [place] # (Auto) 0.5 Eos # (Auto) 0.0 Baso # (Auto) 0.0 Abs Immat Gran (auto) 0.03 Absolute Neuts (auto) 6.9 Absolute Nucleated RBC 0.000 Nucleated RBC % (auto) 0.0 Anion Gap 16 Estim Creat Clear Calc 74.0 Estimated GFR > 60 Random Glucose 247 H Calcium 9.0 Microbiology Microbiology Results: Microbiology 06/21/25 Unknown Urine Culture - Preliminary Urine clean catch - Clean Catch Midstream Gram negative rodri 06/21/25 02:39 Blood Culture - Preliminary Blood - Venous No growth after 24 hours. 06/21/25 02:39 Blood Culture - Preliminary Blood - Venous No growth after 24 hours. Assessment and Plan (1) Acute UTI: Status: Acute (2) Fracture of femoral neck, right: Status: Acute (3) Respiratory failure with hypoxia: Status: Acute Plan Patient is a 59-year-old female with a past medical history significant for seizures, hx stroke with right sided deficits, takotsubo cardiomyopathy, chronic respiratory failure with hypercapnia on 4 L at home, GERD, anemia, who presented to the ED initially reporting shortness of breath s/p lung biopsy yesterday. Pt with unrelabe history, found to have acute hypoxic respiratory failure with hypercapnia, UTI, sepsis and possible COPD/asthma exacerbation Acute on chronic respiratory failure with hypoxia and hypercapnia secondary to acute COPD exacerbation - solumedrol - levalubuterol/ipratropium - titrate O2, pt back at 4L basline, goal 88-92% - monitor CBC and BMP sepsis with UTI - ceftriaxone pending culture - urine culture with gram negative rods - follow CBC and BMP Right proximal humerus fracture and right radial styloid fracture - ortho consulted, recommend volar splint and sling - nonweightbearing of RUE - encouraged gentle ROM of hand - follow up outpatient with orthopedics lung nodules on imaging - continue outpt monitoring Seizures - Keppra and gabapentin GERD - ppi chronic anemia, stable - iron - monitor CBC History CVA with R sided deficits and speech deficit - pt reports is at baseline full code VTE prophy: heparin Pt will require continued hospitalization for treatment of acute hypoxic respiratory failure and UTI with IV antibiotics while awaiting culture sensitivities, as well as PT evaluation for safe disposition home. Quality Stroke Does the patient have a stroke diagnosis?: No VTE Prior VTE?: No VTE Risk Level:: Medical - moderate - high VTE Device Contraindication: Treatment Not Indicated VTE Drug Contraindication: N/A - Med Ordered
[2025-06-23] VITALS (8 sets, daily range): BP systolic 144–176; BP diastolic 54–74; PULSE 67–84; RESP 14–18; TEMP 36.1–36.7; O2SAT 92–99
[2025-06-23] MEDS: 0.9 % Sodium Chloride Flush 3 ML SYRINGE IVFLUSH ×2 (08:28→20:41)
[2025-06-23] MEDS: oxyCODONE HCl Immed Release 5 MG TABLET PO ×3 (08:29→20:40)
[2025-06-23] MEDS: Aspirin Enteric Coated 81 MG TABLET.DR PO (08:29)
[2025-06-23] MEDS: Ferrous Sulfate 324 MG TABLET.DR PO ×2 (08:29→20:40)
[2025-06-23] MEDS: levalbuterol HCL 1.25 MG, Ipratropium Bromide 0.5 MG INHALE ×3 (11:04→19:54)
--- NOTE | 2025-06-23 15:10 | P.PNIM_ITS ---
Subjective Subjective Date of Service: 06/23/25 Interval History: Right arm pain controlled with current analgesic regimen Breathing back to baseline Slight cough Reports right hand has been chronically in a fist for many months; cannot move fingers Pt declines going to short-term rehab Plan is to discharge home tomorrow with services Review of Systems Review of Systems: Yes all other systems are reviewed and are negative Physical Exam 2 Exam: Exam: General: AOx3, no acute distress. Elderly and frail-looking Resp: CTA bilaterally CVS: S1, S2, RRR GI: +BS, NT, no distention Skin: Warm, dry Neuro: Cranial nerves II-XII grossly intact bilaterally. Motor grossly intact bilaterally Extremities: No edema. Right shoulder and arm tender to palpation; ROM reduced secondary to pain. RUE in volar splint and sling. Right hand contracted into a fist Psych: Appropriate affect Vital Signs: Vital Signs: Last Vital Signs Temp 97.1 F 06/23/25 11:45 Pulse 74 06/23/25 11:45 Resp 14 06/23/25 11:45 BP 153/67 H 06/23/25 11:45 Pulse Ox 95 06/23/25 11:45 O2 Del Method Nasal Cannula 06/23/25 11:45 O2 Flow Rate 4 06/23/25 11:45 Oxygen Flow Rate 3 06/20/25 17:17 BMI result Body Mass Index 20.8 Objective Data Active Medications Acetaminophen (Acetaminophen 325 Mg Tablet) 650 mg PO Q6H PRN PRN Reason: Pain, Mild 1-3,fever,headache Last Admin: 06/21/25 05:50 Dose: 650 mg Documented By: ISACC Amlodipine Besylate (Amlodipine Besylate 5 Mg Tablet) 5 mg PO DAILY [facility]; Protocol Last Admin: 06/23/25 08:29 Dose: 5 mg Documented By: MAHESH Aspirin (Aspirin Enteric Coated 81 Mg Tablet.) 81 mg PO DAILY [facility] Last Admin: 06/23/25 08:29 Dose: 81 mg Documented By: MAHESH Atorvastatin Calcium (Atorvastatin Calcium 40 Mg Tablet) 40 mg PO BEDTIME [facility] Last Admin: 06/22/25 21:43 Dose: 40 mg Documented By: DARRION Calcium Carbonate (Calcium Carbonate 750 Mg Tab.Chew) 750 mg PO Q4H PRN PRN Reason: Heartburn Levalbuterol HCl 1.25 mg/ (Ipratropium [place] 0.5 mg) 0 mg INHALE RQ4H WHILE AWAKE [facility] Last Admin: 06/23/25 15:09 Dose: 1.3 dose Documented By: [place] Ferrous Sulfate (Ferrous Sulfate 324 Mg Tablet.) 324 mg PO BID [facility] Last Admin: 06/23/25 08:29 Dose: 324 mg Documented By: MAHESH Folic Acid (Folic Acid 1 Mg Tablet) 1 mg PO DAILY [facility] Last Admin: 06/23/25 08:29 Dose: 1 mg Documented By: MAHESH Gabapentin (Gabapentin 300 Mg Capsule) 300 mg PO TID [facility] Last Admin: 06/23/25 15:01 Dose: 300 mg Documented By: MAHESH Heparin Sodium (Porcine) (Heparin Sodium,Porcine 5,000 Unit/Ml Vial) 5,000 unit SUBCUT Q8H [facility] Last Admin: 06/23/25 15:02 Dose: 5,000 unit Documented By: MAHESH Ketorolac Tromethamine (Ketorolac Tromethamine 15 Mg/Ml Vial) 15 mg IVPUSH Q6H PRN PRN Reason: Pain, Moderate(Pain Scale 4-6) Last Admin: 06/22/25 15:38 Dose: 15 mg Documented By: MAHESH Levalbuterol HCl (Levalbuterol Hcl 1.25 Mg/3 Ml Vial.Neb) 1.25 mg INHALE Q4H PRN PRN Reason: Shortness of Breath/Wheezing Levetiracetam (Levetiracetam 500 Mg Tablet) 500 mg PO BID [facility] Last Admin: 06/23/25 08:29 Dose: 500 mg Documented By: MAHESH Magnesium Hydroxide (Milk Of Magnesia 30 Ml Oral.Susp) 30 ml PO DAILY PRN PRN Reason: Constipation Melatonin (Melatonin 3 Mg Tablet) 6 mg PO BEDTIME PRN PRN Reason: Insomnia Methylprednisolone Sodium Succinate (Methylprednisolone Sod Succ 125 Mg/2 Ml Vial) 60 mg IVPUSH Q12H [facility] Last Admin: 06/23/25 06:33 Dose: 60 mg Documented By: DARRION Metoprolol Tartrate (Metoprolol Tartrate 25 Mg Tablet) 25 mg PO BID [facility]; Protocol Last Admin: 06/23/25 08:29 Dose: 25 mg Documented By: MAHESH Mirtazapine (Mirtazapine 30 Mg Tablet) 30 mg PO BEDTIME [facility] Last Admin: 06/22/25 21:43 Dose: 30 mg Documented By: DARRION Omeprazole (Omeprazole 20 Mg Capsule.Dr) 20 mg PO DAILY@0630 [facility] Last Admin: 06/23/25 06:33 Dose: 20 mg Documented By: DARRION Ondansetron HCl (Ondansetron Hcl 4 Mg/2 Ml Vial) 4 mg IVPUSH Q8H PRN PRN Reason: Nausea and Vomiting Oxycodone HCl (Oxycodone Hcl Immed Release 5 Mg Tablet) 5 mg PO Q4H PRN PRN Reason: Pain, Severe (Pain Scale 7-10) Last Admin: 06/23/25 15:01 Dose: 5 mg Documented By: MAHESH Polyethylene Glycol (Polyethylene Glycol 3350 17 Gm Powd.Pack) 17 gm PO DAILY PRN PRN Reason: Constipation Last Admin: 06/23/25 09:09 Dose: 17 gm Documented By: MAHESH Sertraline HCl (Sertraline Hcl 50 Mg Tablet) 50 mg PO DAILY [facility] Last Admin: 06/23/25 08:29 Dose: 50 mg Documented By: MAHESH Sodium Chloride (0.9 % Sodium Chloride Flush 3 Ml Syringe) 3 ml IVFLUSH QSHIFT [facility] Last Admin: 06/23/25 08:28 Dose: 3 ml Documented By: MAHESH Tramadol HCl (Tramadol Hcl 50 Mg Tablet) 50 mg PO Q6H PRN PRN Reason: Pain, Moderate(Pain Scale 4-6) Labs 06/22/25 08:30 06/22/25 10:30 Microbiology Microbiology Results: Microbiology 06/21/25 Unknown Urine Culture - Final Urine clean catch - Clean Catch Midstream Escherichia coli 06/21/25 02:39 Blood Culture - Preliminary Blood - Venous No growth after 48 hours. 06/21/25 02:39 Blood Culture - Preliminary Blood - Venous No growth after 48 hours. Assessment and Plan (1) Acute UTI: Status: Acute (2) Fracture of femoral neck, right: Status: Acute Plan Patient is a 59-year-old female with a past medical history significant for seizures, hx stroke with right sided deficits, takotsubo cardiomyopathy, chronic respiratory failure with hypercapnia on 4 L at home, GERD, anemia, who presented to the ED initially reporting shortness of breath s/p lung biopsy yesterday. Pt with unrelabe history, found to have acute hypoxic respiratory failure with hypercapnia, UTI, sepsis and possible COPD/asthma exacerbation Acute on chronic respiratory failure with hypoxia and hypercapnia secondary to acute COPD exacerbation - solumedrol - levalubuterol/ipratropium - titrate O2, pt now back at 4L basline, goal 88-92% sepsis with UTI - continue ceftriaxone, day 4 - urine culture growing E coli sensitive to ceftriaxone Right proximal humerus fracture and right radial styloid fracture - ortho consulted, recommend volar splint and sling - nonweightbearing of RUE - encouraged gentle ROM of hand, though pt reports has been unable to move fingers for many months - follow up outpatient with orthopedics Left lower lobe density - concerning for malignancy - appears to be increasing in size - continue outpt monitoring and workup to exclude malignancy Chronic occluded left common carotid artery - outpatient follow up with vascular surgery Seizures - Keppra and gabapentin GERD - ppi chronic anemia, stable - iron - monitor CBC History CVA with R sided deficits and speech deficit - pt reports is at baseline full code VTE prophy: heparin Pt will require continued hospitalization for treatment of acute hypoxic respiratory failure and UTI with IV antibiotics. Pt is declining STR and will be discharged home with services tomorrow. Quality Stroke Does the patient have a stroke diagnosis?: No VTE Prior VTE?: No VTE Risk Level:: Medical - moderate - high VTE Device Contraindication: Treatment Not Indicated VTE Drug Contraindication: N/A - Med Ordered
--- NOTE | 2025-06-23 16:21 | MHC.CM.PN ---
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 [facility] PT UNSURE ABOUT TRANSPORT, MAY NEED BLS
[2025-06-24] VITALS (10 sets, daily range): BP systolic 148–176; BP diastolic 58–74; PULSE 67–77; RESP 14–18; TEMP 36–37; O2SAT 88–98
[2025-06-24] MEDS: oxyCODONE HCl Immed Release 5 MG TABLET PO ×4 (02:45→20:52)
[2025-06-24] MEDS: Aspirin Enteric Coated 81 MG TABLET.DR PO (09:35)
[2025-06-24] MEDS: Ferrous Sulfate 324 MG TABLET.DR PO ×2 (09:35→20:52)
[2025-06-24] MEDS: 0.9 % Sodium Chloride Flush 3 ML SYRINGE IVFLUSH ×3 (09:36→20:59)
[2025-06-24] MEDS: Milk of Magnesia 30 ML ORAL.SUSP PO (09:42)
[2025-06-24] MEDS: levalbuterol HCL 1.25 MG, Ipratropium Bromide 0.5 MG INHALE ×2 (11:25→19:07)
--- NOTE | 2025-06-24 12:05 | P.PNIM_ITS ---
Subjective Subjective Date of Service: 06/24/25 Interval History: Feels well today. Patient's arm is still in sling, complaints of pain. Eating well. Discussion regarding disposition and placement, patient is agreeable to rehabilitation. Review of Systems Review of Systems: Yes all other systems are reviewed and are negative Physical Exam 2 Exam: Exam: General: A&O x3, oriented to time place person and situation, comfortable, no pain Cardiac: S1, S2 auscultated with no S3/4, no MRG. Well perfused. Respiratory: Normal breath sounds auscultated throughout all lung zones, without wheezing, rales. Normal rate. GI/ : No abdominal pain on palpation, no masses or distentions. MSK: Right arm in sling, tenderness to palpation of the shoulder and arm, with reduced ROM. Currently in volar splint and sling. Neurological: Normal neurological examination on overview, without obvious CN II-XII abnormalities. Vital Signs: Vital Signs: Last Vital Signs Temp 97.0 F 06/24/25 07:33 Pulse 67 06/24/25 11:28 Resp 14 06/24/25 11:28 BP 176/60 H 06/24/25 09:35 Pulse Ox 96 06/24/25 07:33 O2 Del Method Nasal Cannula 06/24/25 07:33 O2 Flow Rate 4 06/24/25 07:33 Oxygen Flow Rate 3 06/20/25 17:17 BMI result Body Mass Index 20.8 Objective Data Active Medications Acetaminophen (Acetaminophen 325 Mg Tablet) 650 mg PO Q6H PRN PRN Reason: Pain, Mild 1-3,fever,headache Last Admin: 06/21/25 05:50 Dose: 650 mg Documented By: ISACC Amlodipine Besylate (Amlodipine Besylate 5 Mg Tablet) 5 mg PO DAILY [facility]; Protocol Last Admin: 06/24/25 09:35 Dose: 5 mg Documented By: OK Aspirin (Aspirin Enteric Coated 81 Mg Tablet.) 81 mg PO DAILY [facility] Last Admin: 06/24/25 09:35 Dose: 81 mg Documented By: OK Atorvastatin Calcium (Atorvastatin Calcium 40 Mg Tablet) 40 mg PO BEDTIME [facility] Last Admin: 06/23/25 20:40 Dose: 40 mg Documented By: DARRION Calcium Carbonate (Calcium Carbonate 750 Mg Tab.Chew) 750 mg PO Q4H PRN PRN Reason: Heartburn Levalbuterol HCl 1.25 mg/ (Ipratropium [place] 0.5 mg) 0 mg INHALE RQ4H WHILE AWAKE [facility] Last Admin: 06/24/25 11:25 Dose: 1.25 dose Documented By: CHIKIS Ferrous Sulfate (Ferrous Sulfate 324 Mg Tablet.) 324 mg PO BID [facility] Last Admin: 06/24/25 09:35 Dose: 324 mg Documented By: OK Folic Acid (Folic Acid 1 Mg Tablet) 1 mg PO DAILY [facility] Last Admin: 06/24/25 09:35 Dose: 1 mg Documented By: OK Gabapentin (Gabapentin 300 Mg Capsule) 300 mg PO TID [facility] Last Admin: 06/24/25 09:35 Dose: 300 mg Documented By: OK Heparin Sodium (Porcine) (Heparin Sodium,Porcine 5,000 Unit/Ml Vial) 5,000 unit SUBCUT Q8H [facility] Last Admin: 06/24/25 06:28 Dose: 5,000 unit Documented By: DARRION Ketorolac Tromethamine (Ketorolac Tromethamine 15 Mg/Ml Vial) 15 mg IVPUSH Q6H PRN PRN Reason: Pain, Moderate(Pain Scale 4-6) Last Admin: 06/22/25 15:38 Dose: 15 mg Documented By: MAHESH Levalbuterol HCl (Levalbuterol Hcl 1.25 Mg/3 Ml Vial.Neb) 1.25 mg INHALE Q4H PRN PRN Reason: Shortness of Breath/Wheezing Levetiracetam (Levetiracetam 500 Mg Tablet) 500 mg PO BID [facility] Last Admin: 06/24/25 09:35 Dose: 500 mg Documented By: OK Magnesium Hydroxide (Milk Of Magnesia 30 Ml Oral.Susp) 30 ml PO DAILY PRN PRN Reason: Constipation Last Admin: 06/24/25 09:42 Dose: 30 ml Documented By: OK Melatonin (Melatonin 3 Mg Tablet) 6 mg PO BEDTIME PRN PRN Reason: Insomnia Methylprednisolone Sodium Succinate (Methylprednisolone Sod Succ 125 Mg/2 Ml Vial) 60 mg IVPUSH Q12H [facility] Last Admin: 06/24/25 06:28 Dose: 60 mg Documented By: DARRION Metoprolol Tartrate (Metoprolol Tartrate 25 Mg Tablet) 25 mg PO BID [facility]; Protocol Last Admin: 06/24/25 09:35 Dose: 25 mg Documented By: OK Mirtazapine (Mirtazapine 30 Mg Tablet) 30 mg PO BEDTIME [facility] Last Admin: 06/23/25 20:40 Dose: 30 mg Documented By: DARRION Omeprazole (Omeprazole 20 Mg Capsule.Dr) 20 mg PO DAILY@0630 [facility] Last Admin: 06/24/25 06:28 Dose: 20 mg Documented By: DARRION Ondansetron HCl (Ondansetron Hcl 4 Mg/2 Ml Vial) 4 mg IVPUSH Q8H PRN PRN Reason: Nausea and Vomiting Oxycodone HCl (Oxycodone Hcl Immed Release 5 Mg Tablet) 5 mg PO Q4H PRN PRN Reason: Pain, Severe (Pain Scale 7-10) Last Admin: 06/24/25 09:35 Dose: 5 mg Documented By: OK Polyethylene Glycol (Polyethylene Glycol 3350 17 Gm Powd.Pack) 17 gm PO DAILY PRN PRN Reason: Constipation Last Admin: 06/23/25 09:09 Dose: 17 gm Documented By: [place] Sertraline HCl (Sertraline Hcl 50 Mg Tablet) 50 mg PO DAILY [facility] Last Admin: 06/24/25 09:35 Dose: 50 mg Documented By: OK Sodium Chloride (0.9 % Sodium Chloride Flush 3 Ml Syringe) 3 ml IVFLUSH QSHIFT [facility] Last Admin: 06/24/25 09:36 Dose: 3 ml Documented By: OK Tramadol HCl (Tramadol Hcl 50 Mg Tablet) 50 mg PO Q6H PRN PRN Reason: Pain, Moderate(Pain Scale 4-6) Labs 06/22/25 08:30 06/22/25 10:30 Assessment and Plan (1) Takotsubo cardiomyopathy: Status: Acute (2) History of non-ST elevation myocardial infarction (NSTEMI): Status: Acute (3) Major depression, recurrent: Status: Acute (4) Moderate malnutrition: Status: Acute (5) Failure to thrive in adult: Status: Acute (6) Acute on chronic respiratory acidosis: Status: Acute (7) Microcytic anemia: Status: Acute (8) Normocytic anemia: Status: Acute (9) Fracture of femoral neck, right: Status: Acute (10) Hemiparesis affecting right side as late effect of cerebrovascular accident: Status: Acute (11) History of multiple cerebrovascular accidents (CVAs): Status: Acute (12) Seizure: Status: Acute (13) COPD (chronic obstructive pulmonary disease): Status: Acute (14) Hypercapnic respiratory failure: Status: Acute (15) Lack of appetite: Status: Acute Plan 59-year-old female with a past medical history significant for seizures, hx stroke with right sided deficits, takotsubo cardiomyopathy, chronic respiratory failure with hypercapnia on 4 L at home, GERD, anemia, who presented to the ED initially reporting shortness of breath s/p lung biopsy 06/23/25, admitted with acute hypoxic respiratory failure with hypercapnia, UTI, sepsis with infective COPD exacerbation. Acute on chronic hypoxic hypercarbic respiratory failure Acute infective COPD exacerbation Stable currently PLAN - Solu-Medrol - levalbuterol/ipratropium - continue home 4 L baseline 88-92% Sepsis Acute complicated UTI Urine culture growing E coli sensitive to ceftriaxone PLAN - Continue ceftriaxone, day 5 Right proximal humerus fracture Right radial styloid fracture - ortho consulted, recommend volar splint and sling - nonweightbearing of RUE - encouraged gentle ROM of hand, though pt reports has been unable to move fingers for many months - follow up outpatient with orthopedics Left lower lobe density - concerning for malignancy - appears to be increasing in size - continue outpt monitoring and workup to exclude malignancy Chronic occluded left common carotid artery - outpatient follow up with vascular surgery Seizures History CVA with R sided deficits and speech deficit - Keppra and gabapentin GERD - ppi Chronic anemia, stable - iron - monitor CBC QUALITY METRICS - VTE: Heparin 5000 t.i.d. SQ - CODE STATUS: Full code - DIET: Regular - DISPOSITION: Short-term rehab - pending insurance Auth Total time managing care of this patient today: 35 minutes. Quality Stroke Does the patient have a stroke diagnosis?: No VTE Prior VTE?: No VTE Risk Level:: Medical - moderate - high VTE Device Contraindication: Treatment Not Indicated VTE Drug Contraindication: N/A - Med Ordered
[2025-06-25] VITALS (11 sets, daily range): BP systolic 136–183; BP diastolic 60–78; PULSE 69–90; RESP 16–20; TEMP 36.1–37; O2SAT 92–100
[2025-06-25] MEDS: 0.9 % Sodium Chloride Flush 3 ML SYRINGE IVFLUSH ×3 (07:35→21:10)
[2025-06-25] MEDS: oxyCODONE HCl Immed Release 5 MG TABLET PO ×2 (07:41→18:28)
[2025-06-25] MEDS: Aspirin Enteric Coated 81 MG TABLET.DR PO (07:42)
[2025-06-25] MEDS: Ferrous Sulfate 324 MG TABLET.DR PO ×2 (07:42→21:09)
[2025-06-25] MEDS: levalbuterol HCL 1.25 MG, Ipratropium Bromide 0.5 MG INHALE ×4 (07:57→20:07)
--- NOTE | 2025-06-25 12:44 | MHC.CM.PN ---
CM met with pt. to discuss DCP, she is accepting of going to [facility], [facility] accepted, awaiting PT and OT evals, and auth.
--- NOTE | 2025-06-25 18:25 | HO.PM.IMPN ---
Subjective Subjective Date of Service: 06/25/25 Interval History: No new issues or complaints today Patient feels well overall Pending placement Review of Systems Review of Systems: Yes all other systems are reviewed and are negative Physical Exam Exam: Exam: General: A&O x3, oriented to time place person and situation, comfortable, no pain Cardiac: S1, S2 auscultated with no S3/4, no MRG. Well perfused. Respiratory: Normal breath sounds auscultated throughout all lung zones, without wheezing, rales. Normal rate. GI/ : No abdominal pain on palpation, no masses or distentions. MSK: Right arm in sling, tenderness to palpation of the shoulder and arm, with reduced ROM. Currently in volar splint and sling. Neurological: Normal neurological examination on overview, without obvious CN II-XII abnormalities. Vital Signs: Vital Signs: Last Vital Signs Temp 98.6 F 06/25/25 15:49 Pulse 83 06/25/25 15:49 Resp 20 06/25/25 15:49 BP 150/64 H 06/25/25 17:56 Pulse Ox 93 06/25/25 17:56 O2 Del Method Nasal Cannula 06/25/25 17:56 O2 Flow Rate 3 06/25/25 17:56 Oxygen Flow Rate 3 06/20/25 17:17 BMI result Body Mass Index 20.8 Objective Data Active Medications Acetaminophen (Acetaminophen 325 Mg Tablet) 650 mg PO Q6H PRN PRN Reason: Pain, Mild 1-3,fever,headache Last Admin: 06/21/25 05:50 Dose: 650 mg Documented By: ISACC Amlodipine Besylate (Amlodipine Besylate 5 Mg Tablet) 5 mg PO DAILY [facility]; Protocol Last Admin: 06/25/25 07:42 Dose: 5 mg Documented By: KIMMIE Aspirin (Aspirin Enteric Coated 81 Mg Tablet.) 81 mg PO DAILY [facility] Last Admin: 06/25/25 07:42 Dose: 81 mg Documented By: KIMMIE Atorvastatin Calcium (Atorvastatin Calcium 40 Mg Tablet) 40 mg PO BEDTIME [facility] Last Admin: 06/24/25 20:52 Dose: 40 mg Documented By: POONAM Calcium Carbonate (Calcium Carbonate 750 Mg Tab.Chew) 750 mg PO Q4H PRN PRN Reason: Heartburn Levalbuterol HCl 1.25 mg/ (Ipratropium [place] 0.5 mg) 0 mg INHALE RQ4H WHILE AWAKE [facility] Last Admin: 06/25/25 15:36 Dose: 1.3 dose Documented By: CHARLOTTE Ferrous Sulfate (Ferrous Sulfate 324 Mg Tablet.) 324 mg PO BID [facility] Last Admin: 06/25/25 07:42 Dose: 324 mg Documented By: KIMMIE Folic Acid (Folic Acid 1 Mg Tablet) 1 mg PO DAILY [facility] Last Admin: 06/25/25 07:43 Dose: 1 mg Documented By: KIMMIE Gabapentin (Gabapentin 300 Mg Capsule) 300 mg PO TID [facility] Last Admin: 06/25/25 14:42 Dose: 300 mg Documented By: KIMMIE Heparin Sodium (Porcine) (Heparin Sodium,Porcine 5,000 Unit/Ml Vial) 5,000 unit SUBCUT Q8H [facility] Last Admin: 06/25/25 14:41 Dose: 5,000 unit Documented By: KIMMIE Ketorolac Tromethamine (Ketorolac Tromethamine 15 Mg/Ml Vial) 15 mg IVPUSH Q6H PRN PRN Reason: Pain, Moderate(Pain Scale 4-6) Last Admin: 06/22/25 15:38 Dose: 15 mg Documented By: JOSHUAOPEWATSON Levalbuterol HCl (Levalbuterol Hcl 1.25 Mg/3 Ml Vial.Neb) 1.25 mg INHALE Q4H PRN PRN Reason: Shortness of Breath/Wheezing Last Admin: 06/24/25 23:24 Dose: 1.25 mg Documented By: RADHA Levetiracetam (Levetiracetam 500 Mg Tablet) 500 mg PO BID [facility] Last Admin: 06/25/25 07:42 Dose: 500 mg Documented By: KIMMIE Magnesium Hydroxide (Milk Of Magnesia 30 Ml Oral.Susp) 30 ml PO DAILY PRN PRN Reason: Constipation Last Admin: 06/24/25 09:42 Dose: 30 ml Documented By: OK Melatonin (Melatonin 3 Mg Tablet) 6 mg PO BEDTIME PRN PRN Reason: Insomnia Methylprednisolone Sodium Succinate (Methylprednisolone Sod Succ 125 Mg/2 Ml Vial) 60 mg IVPUSH Q12H [facility] Last Admin: 06/25/25 06:16 Dose: 60 mg Documented By: POONAM Metoprolol Tartrate (Metoprolol Tartrate 25 Mg Tablet) 25 mg PO BID [facility]; Protocol Last Admin: 06/25/25 07:42 Dose: 25 mg Documented By: KIMMIE Mirtazapine (Mirtazapine 30 Mg Tablet) 30 mg PO BEDTIME [facility] Last Admin: 06/24/25 20:52 Dose: 30 mg Documented By: POONAM Omeprazole (Omeprazole 20 Mg Capsule.Dr) 20 mg PO DAILY@0630 [facility] Last Admin: 06/25/25 06:16 Dose: 20 mg Documented By: POONAM Ondansetron HCl (Ondansetron Hcl 4 Mg/2 Ml Vial) 4 mg IVPUSH Q8H PRN PRN Reason: Nausea and Vomiting Oxycodone HCl (Oxycodone Hcl Immed Release 5 Mg Tablet) 5 mg PO Q4H PRN PRN Reason: Pain, Severe (Pain Scale 7-10) Last Admin: 06/25/25 07:41 Dose: 5 mg Documented By: KIMMIE Polyethylene Glycol (Polyethylene Glycol 3350 17 Gm Powd.Pack) 17 gm PO DAILY PRN PRN Reason: Constipation Last Admin: 06/24/25 18:15 Dose: 17 gm Documented By: [place] Sertraline HCl (Sertraline Hcl 50 Mg Tablet) 50 mg PO DAILY [facility] Last Admin: 06/25/25 07:43 Dose: 50 mg Documented By: KIMMIE Sodium Chloride (0.9 % Sodium Chloride Flush 3 Ml Syringe) 3 ml IVFLUSH QSHIFT [facility] Last Admin: 06/25/25 14:42 Dose: 3 ml Documented By: KIMMIE Tramadol HCl (Tramadol Hcl 50 Mg Tablet) 50 mg PO Q6H PRN PRN Reason: Pain, Moderate(Pain Scale 4-6) Labs 06/22/25 08:30 06/22/25 10:30 Assessment and Plan (1) Takotsubo cardiomyopathy: Status: Acute (2) History of non-ST elevation myocardial infarction (NSTEMI): Status: Acute (3) Moderate malnutrition: Status: Acute (4) Failure to thrive in adult: Status: Acute (5) Chronic GERD: Status: Acute (6) Acute on chronic respiratory acidosis: Status: Acute (7) Acute UTI: Status: Acute (8) Sepsis: Status: Acute (9) Fracture of femoral neck, right: Status: Acute (10) Hemiparesis affecting right side as late effect of cerebrovascular accident: Status: Acute (11) History of multiple cerebrovascular accidents (CVAs): Status: Acute (12) Acute exacerbation of COPD with asthma: Status: Acute (13) Respiratory failure with hypoxia: Status: Acute (14) COPD (chronic obstructive pulmonary disease): Status: Acute Plan 59-year-old female with a past medical history significant for seizures, hx stroke with right sided deficits, takotsubo cardiomyopathy, chronic respiratory failure with hypercapnia on 4 L at home, GERD, anemia, who presented to the ED initially reporting shortness of breath s/p lung biopsy 06/23/25, admitted with acute hypoxic respiratory failure with hypercapnia, UTI, sepsis with infective COPD exacerbation. Acute on chronic hypoxic hypercarbic respiratory failure Acute infective COPD exacerbation Stable currently PLAN - Solu-Medrol - levalbuterol/ipratropium - continue home 4 L baseline 88-92% Sepsis Acute complicated UTI Urine culture growing E coli sensitive to ceftriaxone PLAN - Continue ceftriaxone, day 5 Right proximal humerus fracture Right radial styloid fracture - ortho consulted, recommend volar splint and sling - nonweightbearing of RUE - encouraged gentle ROM of hand, though pt reports has been unable to move fingers for many months - follow up outpatient with orthopedics Left lower lobe density - concerning for malignancy - appears to be increasing in size - continue outpt monitoring and workup to exclude malignancy Chronic occluded left common carotid artery - outpatient follow up with vascular surgery Seizures History CVA with R sided deficits and speech deficit - Keppra and gabapentin GERD - ppi Chronic anemia, stable - iron - monitor CBC QUALITY METRICS - VTE: Heparin 5000 t.i.d. SQ - CODE STATUS: Full code - DIET: Regular - DISPOSITION: Short-term rehab - pending insurance Auth Total time managing care of this patient today: 35 minutes. Quality Stroke Does the patient have a stroke diagnosis?: No VTE Prior VTE?: No VTE Risk Level:: Medical - moderate - high VTE Device Contraindication: Treatment Not Indicated VTE Drug Contraindication: N/A - Med Ordered
[2025-06-26] VITALS (7 sets, daily range): BP systolic 151–180; BP diastolic 67–77; PULSE 67–84; RESP 16–18; TEMP 36.2–36.7; O2SAT 91–100
[2025-06-26] MEDS: oxyCODONE HCl Immed Release 5 MG TABLET PO (06:08)
[2025-06-26] MEDS: 0.9 % Sodium Chloride Flush 3 ML SYRINGE IVFLUSH ×2 (08:38→14:16)
[2025-06-26] MEDS: Aspirin Enteric Coated 81 MG TABLET.DR PO (08:38)
[2025-06-26] MEDS: Ferrous Sulfate 324 MG TABLET.DR PO (08:39)
[2025-06-26] MEDS: levalbuterol HCL 1.25 MG, Ipratropium Bromide 0.5 MG INHALE ×3 (11:18→19:40)
--- NOTE | 2025-06-26 14:55 | MHC.CM.PN ---
Pt. is ready to DC, we are awaiting ins. auth for her to go to [facility].
--- NOTE | 2025-06-26 16:14 | PM.DS ---
DS: Providers Provider Date of Service: 06/26/25 Date of admission: 06/21/25 04:54 Date of discharge: 06/26/25 Primary care physician: Brianna Gonzalez MD Consults: 06/22/25 07:48 Consult to Orthopedics Routine Consulting Provider: [facility] Reason for consultation: Right humeral neck fracture DS: Diagnosis Discharge Diagnosis (1) Takotsubo cardiomyopathy: Status: Acute (2) History of non-ST elevation myocardial infarction (NSTEMI): Status: Acute (3) Moderate malnutrition: Status: Acute (4) Failure to thrive in adult: Status: Acute (5) Chronic GERD: Status: Acute (6) Acute on chronic respiratory acidosis: Status: Acute (7) Acute UTI: Status: Acute (8) Sepsis: Status: Acute (9) Fracture of femoral neck, right: Status: Acute (10) Hemiparesis affecting right side as late effect of cerebrovascular accident: Status: Acute (11) History of multiple cerebrovascular accidents (CVAs): Status: Acute (12) Acute exacerbation of COPD with asthma: Status: Acute (13) Respiratory failure with hypoxia: Status: Acute (14) COPD (chronic obstructive pulmonary disease): Status: Acute DS: Summary Hospital Course Hospital Course: 59-year-old female with a past medical history significant for seizures, hx stroke with right sided deficits, takotsubo cardiomyopathy, chronic respiratory failure with hypercapnia on 4 L at home, GERD, anemia, who presented to the ED initially reporting shortness of breath s/p lung biopsy 06/23/25, admitted with acute hypoxic respiratory failure with hypercapnia, UTI, sepsis with infective COPD exacerbation. She presented to the ED initially reporting shortness of breath s/p lung biopsy yesterday. ED provider was able to look into testing post biopsy and had a negative chest x-ray 1 hour postop. The patient denies any shortness of breath, wheezing, chest pain or URI symptoms at this time however she did report this to the ED provider. She reported to me that she presented to the emergency department due to right upper extremity pain after a fall 2-3 weeks ago. She has significant bruising in the right arm and was found to have a right humeral neck fracture and possible right styloid fracture. Acute on chronic hypoxic hypercarbic respiratory failure Acute infective COPD exacerbation Stable currently - Solu-Medrol - levalbuterol/ipratropium - continue home 4 L baseline 88-92% Sepsis Acute complicated UTI Urine culture growing E coli sensitive to ceftriaxone - Continue keflex for 2 more days Right proximal humerus fracture Right radial styloid fracture ortho consulted, recommend volar splint and sling - nonweightbearing of RUE - encouraged gentle ROM of hand, though pt reports has been unable to move fingers for many months - follow up outpatient with orthopedics Left lower lobe density Identified on imaging concerning for malignancy - appears to be increasing in size - continue outpt monitoring and workup to exclude malignancy Chronic occluded left common carotid artery - outpatient follow up with vascular surgery Seizures History CVA with R sided deficits and speech deficit - Keppra and gabapentin Status at Discharge Functional status at discharge: uses cane/walker Overall status at discharge: patient is back to baseline Time Attestation Total time managing care of this patient today: 45 mintues. Discharge Coordination Time (in mins): 45 Quality: Safe Use of Opioids Does Pt have an Active Cancer Diagnosis on the Problem List?: No Quality: Stroke Does the patient have a stroke diagnosis?: No Physical Exam Exam: Exam: General: A&O x3, oriented to time place person and situation, comfortable, no pain Cardiac: S1, S2 auscultated with no S3/4, no MRG. Well perfused. Respiratory: Normal breath sounds auscultated throughout all lung zones, without wheezing, rales. Normal rate. GI/ : No abdominal pain on palpation, no masses or distentions. MSK: Right arm in sling, tenderness to palpation of the shoulder and arm, with reduced ROM. Currently in volar splint and sling. Neurological: Normal neurological examination on overview, without obvious CN II-XII abnormalities. Vital Signs: Vital Signs: Last Vital Signs Temp 97.3 F 06/26/25 15:54 Pulse 73 06/26/25 15:54 Resp 18 06/26/25 15:54 BP 158/68 H 06/26/25 15:54 Pulse Ox 97 06/26/25 15:54 O2 Del Method Nasal Cannula 06/26/25 15:54 O2 Flow Rate 3 06/26/25 15:54 Oxygen Flow Rate 3 06/20/25 17:17 BMI result Body Mass Index 20.8 DS: Data Data Completed and Pending Completed studies during hospitalization [Text1]: Procedures Assistance with Respiratory Ventilation, 24-96 Consecutive Hours, Continuous Positive Airway Pressure (08/16/21) Assistance with Respiratory Ventilation, Less than 24 Consecutive Hours, Continuous Positive Airway Pressure (03/17/23) Insertion of Infusion Device into Superior Vena Cava, Percutaneous Approach (08/16/21) Introduction of Remdesivir Anti-infective into Central Vein, Percutaneous Approach, [employer] (08/16/21) Reposition Right Upper Femur with Internal Fixation Device, Percutaneous Approach (09/24/23) Transfusion of Nonautologous Red Blood Cells into Peripheral Vein, Percutaneous Approach (09/24/23) Discharge Plan Discharge Anticipated Discharge Date/Time: 06/26/25 16:20 Patient Disposition: Xfer Inpatient Rehab Fac Discharge Diagnosis: Sepsis 2/2 infective exacerbation COPD/complicated urinary tract infection Referrals: Brianna Gonzalez MD [Primary Care Provider, Internal Medicine] - 1 Week Discharge Medications: New oxycodone 5 mg tablet 5 mg PO Q8H PRN (Reason: pain) 5 Days Qty: 15 0RF Rx Instructions: Partial Fill upon patient request. cephalexin 500 mg capsule 500 mg PO Q12H 4 Days Qty: 8 0RF prednisone 20 mg tablet 40 mg PO DAILY 7 Days Qty: 14 0RF Continued albuterol sulfate 90 mcg/actuation HFA aerosol inhaler 2 puff PO Q6H PRN (Reason: bronchospasm) 30 Days Qty: 6.7 0RF docusate sodium 100 mg capsule 100 mg PO DAILY PRN (Reason: Constipation) Qty: 90 0RF (DME) orthotic consult See Rx Instructions .Route .MEDSUPPLY Qty: 1 0RF Rx Instructions: Orthotic consult to right hand as directed (DME) Orthotic consult See Rx Instructions .Route .MEDSUPPLY Qty: 1 0RF Rx Instructions: orthotic consult to right foot as directed. amlodipine 5 mg tablet 5 mg PO DAILY 90 Days Qty: 90 2RF atorvastatin 40 mg tablet 40 mg PO BEDTIME Qty: 90 3RF mirtazapine 30 mg tablet 30 mg PO BEDTIME 90 Days Qty: 90 1RF folic acid 1 mg tablet 1 mg PO DAILY Qty: 90 1RF metoprolol tartrate 25 mg tablet 25 mg PO BID 90 Days Qty: 180 2RF ipratropium-albuterol 0.5 mg-3 mg(2.5 mg base)/3 mL solution for nebulization 3 ml inhalation QID PRN (Reason: for dyspnea) Qty: 180 5RF ferrous sulfate 324 mg (65 mg iron) tablet,delayed release (DR/EC) 324 mg PO BID 90 Days Qty: 180 0RF omeprazole 20 mg capsule,delayed release(DR/EC) 20 mg PO DAILY@0630 Qty: 90 2RF polyethylene glycol 3350 17 gram powder in packet 17 g PO DAILY PRN (Reason: Constipation) (DME) Diapers Very small See Rx Instructions .Route .MEDSUPPLY Qty: 90 5RF Rx Instructions: 3 times a day aspirin [Adult Low Dose Aspirin] 81 mg tablet,delayed release (DR/EC) 81 mg PO DAILY Qty: 90 0RF levetiracetam 500 mg tablet 500 mg PO BID 90 Days Qty: 180 6RF gabapentin 300 mg capsule 300 mg PO TID 90 Days Qty: 270 1RF sertraline 50 mg tablet 50 mg PO DAILY Qty: 90 3RF Discharge Orders: Discharge Order (Routine); Ordered 06/26/25 Ordered By: Peter Luna Diet: Advance to usual diet Activity on Discharge: As tolerated Stand Alone Forms: Patient Portal Discharge page Print Language: Croatian Care Plan Goals: As above Health Concerns: As above Plan of Treatment: - Follow up with PCP within 1 week of discharge - follow up regarding lung mass for possible malignancy - follow up outpatient pulmonology - follow up outpatient orthopedic Assessment: Patient hemodynamically stable for discharge
== END 2025-06-26 20:46 | DRG 720 ==
LOC: HO.ED 20:59 → HO.EDOVER 06-21 05:25 → HO.IMC 06-21 14:36
PROVIDERS: Emergency Medicine; Physician Assistant; Admitting Provider Physician Assistant; Emergency Provider Emergency Medicine; PCP Internal Medicine; Visit Provider Hospitalist
DX: A41.9 Sepsis, unspecified organism (principal); J96.21 Acute and chronic respiratory failure with hypoxia; J44.1 Chronic obstructive pulmonary disease with (acute) exacerbation; C34.32 Malignant neoplasm of lower lobe, left bronchus or lung; N39.0 Urinary tract infection, site not specified; I69.351 Hemiplegia and hemiparesis following cerebral infarction affecting right dominant side; R56.9 Unspecified convulsions; Z99.81 Dependence on supplemental oxygen; B96.20 Unspecified Escherichia coli [E. coli] as the cause of diseases classified elsewhere; S42.201A Unspecified fracture of upper end of right humerus, initial encounter for closed fracture; D64.9 Anemia, unspecified; J96.22 Acute and chronic respiratory failure with hypercapnia; I65.22 Occlusion and stenosis of left carotid artery; K21.9 Gastro-esophageal reflux disease without esophagitis; S52.511A Displaced fracture of right radial styloid process, initial encounter for closed fracture; X58.XXXA Exposure to other specified factors, initial encounter; I69.328 Other speech and language deficits following cerebral infarction; Z20.822 Contact with and (suspected) exposure to COVID-19; Z87.891 Personal history of nicotine dependence; Z79.82 Long term (current) use of aspirin; Z79.899 Other long term (current) drug therapy
CPT/HCPCS: 36415; 70450; 71045; 71275; 72125; 73110; 74177; 80048; 80053; 81001; 82550; 82803; 83605; 83735; 83880; 84484; 85025; 85610; 87040; 87086; 87088; 87186; 87637; 93971; 94640; 97162; 97166; 99285; J0696; J1100; J1644; J1885; J2919; J3475; Q9967

== ENCOUNTER → 2025-06-21 00:16 | Outpatient (BNV) | payer OTHER, SELFPAY | PROVIDERS: Emergency Provider Emergency Medicine; PCP Internal Medicine; Visit Provider Radiology Diagnostic Radiology | DX: R10.9 Unspecified abdominal pain (principal); I65.22 Occlusion and stenosis of left carotid artery; W19.XXXA Unspecified fall, initial encounter | CPT/HCPCS: 74177 ==

== ENCOUNTER → 2025-06-21 04:54 | Outpatient (BNV) | payer OTHER, SELFPAY | PROVIDERS: Admitting Provider Physician Assistant; Emergency Provider Emergency Medicine; PCP Internal Medicine; Visit Provider Student in an Organized Health Care Education/Training Program | DX: N39.0 Urinary tract infection, site not specified (principal); S72.001A Fracture of unspecified part of neck of right femur, initial encounter for closed fracture; J96.21 Acute and chronic respiratory failure with hypoxia | CPT/HCPCS: 99223; 99233; 99499 ==

== ENCOUNTER 2025-07-05 14:28 | Emergency (ER) | payer OTHER, SELFPAY ==
--- NOTE | ~2025-07-05 | CT_ITS ---
CLINICAL HISTORY: lung biopsy 06 22, now septic, unclear source CT CHEST WITHOUT CONTRAST Comparison: CT/SR - CT ABDOMEN PELVIS W IV CON - 06/21/25 01:[address]/AK/SR - CT CHEST WO IV CON - 04/24/25 13:[address]/SR - CT CHEST WO IV CON - 01/18/25 15:04 EDT Findings: Persistent tiny pericardial effusion. Aortic and coronary arterial calcifications. No aortic aneurysm. No thyromegaly or mediastinal lymphadenopathy. A subcentimeter right precarinal lymph node is nonspecific. Centrilobular emphysematous changes. 1.5 cm subpleural nodule in the superior segment of the left lower lobe with spiculated margins. Linear subpleural opacity in the left upper lobe posteromedially is new since prior study, likely atelectasis. Similar finding in the lingula. Redemonstration of multifocal scarring in the right lower lobe. No consolidation, pleural effusion or pneumothorax. Stable 6 mm right lower lobe nodule. No acute findings in the upper abdomen. Impacted right humeral head and neck fracture was present on the prior most recent study but not on 04/24/2025. Stable mild L1 compression fracture dating back to 01/18/2025. IMPRESSION: 1. No segmental or lobar pneumonia. No significant pleural effusion. 2. Probable mild atelectasis in the left upper lobe and lingula. 3. 1.5 cm spiculated nodule in the left lower lobe, presumed recently biopsied. 4. Age-indeterminate acute to subacute right humeral head and neck fracture with impaction. This document has been electronically signed by: Jeniffer Luis DO on 07/05/2025 19:29:48
--- NOTE | ~2025-07-05 | XR_ITS ---
EXAMINATION: XR CHEST CLINICAL INFORMATION: sob COMPARISON: None available. TECHNIQUE: Frontal view of the chest was obtained. FINDINGS: Cardiac and mediastinal silhouette is within normal limits. Overlying cardiac leads. Lucent bilateral upper lungs, suggesting COPD. The known nodule in the left lower lung, seen on the prior radiographs and the prior chest CT studies is less well-defined in today's radiograph.. No new focal consolidation. No pleural effusion. No significant pneumothorax is seen. Stable fracture of the right humeral neck. XR/XR chest 1V IMPRESSION: The patient's known left lower lung nodule, seen on the prior radiographs and chest CTs, is less well defined in today's study. See prior CT reports. No new focal consolidation. No pneumothorax is seen. Electronically signed by: Karlos Spaulding MD 07/05/2025 04:45 PM EDT
[2025-07-05 14:46] VITALS: BP 105/60; BP 122/51; PULSE 80; PULSE 84; RESP 18; TEMP 36.6; O2SAT 92; O2SAT 98; BMI 19.9
[2025-07-05 15:41] VITALS: PULSE 77; RESP 20; TEMP 37.9; O2SAT 97
--- NOTE | 2025-07-05 16:07 | ED_ITS ---
HPI - General Adult General Chief complaint: General Medical Stated complaint: ABNORMAL LAB, INC SOB PER EMS Time Seen by Provider: 07/05/25 16:03 History of Present Illness ED Provider: chi HPI narrative: This is 59-year-old female with complex medical history recently discharged to SNF on nasal cannula oxygen facility there was concerned as her WBC was 17.8 today. She had a humeral fracture patient herself is a poor historian has no particular complaints denies hemoptysis abdominal pain diarrhea skin changes of the arm or extremities no urinary symptoms Related Data Home Medications ?Medication ?Instructions ?Recorded ?Confirmed polyethylene glycol 3350 17 gram 17 g PO DAILY PRN Con stipation 01/03/24 06/21/25 oral powder packet Previous Rx's ?Medication ?Instructions ?Recorded Diapers #90 multiple units 01/06/24 aspirin 81 mg tablet,delayed 81 mg PO DAILY #90 tabs 0 03/02/24 release (Adult Low Dose Aspirin) albuterol sulfate 90 mcg/actuation 2 puff PO Q6H PRN b ronchospasm 30 04/17/24 aerosol inhaler days #6.7 grams docusate sodium 100 mg capsule 100 mg PO DAILY PRN Con stipation 06/01/24 #90 caps sertraline 50 mg tablet 50 mg PO DAILY Depression #9 0 tabs 07/10/24 Orthotic consult #1 ea 08/20/24 orthotic consult #1 ea 08/20/24 amlodipine 5 mg tablet 5 mg PO DAILY 90 days #90 ta bs 11/26/24 atorvastatin 40 mg tablet 40 mg PO BEDTIME Cholesterol #90 12/17/24 tabs mirtazapine 30 mg tablet 30 mg PO BEDTIME To sleep 90 days 01/03/25 #90 tabs folic acid 1 mg tablet 1 mg PO DAILY #90 tabs 02/12 gabapentin 300 mg capsule 300 mg PO TID 90 days #270 c aps 02/18/25 levetiracetam 500 mg tablet 500 mg PO BID 90 days #180 tabs 02/18/25 metoprolol tartrate 25 mg tablet 25 mg PO BID 90 days #180 tabs 04/09/25 ipratropium 0.5 mg-albuterol 3 mg 3 ml inhalation QID PRN for 05/02/25 (2.5 mg base)/3 mL nebulization dyspnea #180 mL soln ferrous sulfate 324 mg (65 mg 324 mg PO BID 90 days #1 80 tabs 05/07/25 iron) tablet,delayed release omeprazole 20 mg capsule,delayed 20 mg PO DAILY@0630 [address] reflux 05/14/25 release #90 caps cephalexin 500 mg capsule 500 mg PO Q12H 4 days #8 cap s 06/26/25 oxycodone 5 mg tablet 5 mg PO Q8H PRN pain 5 days #15 06/26/25 tabs oxycodone 5 mg tablet 5 mg PO TID PRN pain (scale score 06/26/25 7-10) #15 tabs prednisone 20 mg tablet 40 mg (2 x 20 mg) PO DAILY 7 days 06/26/25 #14 tabs Allergies Allergy/AdvReac Type Severity Reaction Status Date / Time crab Allergy Unknown Hives Verified 07/05/25 14:51 penicillin V Allergy Unknown hives Verified 07/05/25 14:51 Penicillins (PENICILLINS) Allergy Unknown hives Verified 07/05/25 14:51 SEASONAL ALLERGIES Allergy Mild RUNNY NOSE Uncoded 04/29/25 14:45 [facility] Past Medical History Medical History Seizure (~11/2021) History of multiple cerebrovascular accidents (CVAs) Hemiparesis affecting right side as late effect of cerebrovascular accident Aphasia History of non-ST elevation myocardial infarction (NSTEMI) (~11/2021) History of acute respiratory distress syndrome (ARDS) (~08/2021) Coronary artery disease Takotsubo cardiomyopathy COPD (chronic obstructive pulmonary disease) Respiratory failure with hypoxia Oxygen dependent Personal history of nicotine dependence Hemoptysis Closed subcapital fracture of femur Cocaine abuse Hypertensive emergency Normocytic anemia History of drug abuse Cocaine abuse Major depression, recurrent Acute CHF (congestive heart failure) Hypercapnic respiratory failure, chronic Asymptomatic carotid artery stenosis with infarction Chronic GERD Environmental allergies Anxiety, generalized Lipid disorder Asthma, moderate Surgical History History of left-sided carotid endarterectomy (~09/2012) History of tonsillectomy and adenoidectomy Family History Family History Father Substance abuse Mother Brain cancer Maternal Grandfather History of heart attack Maternal Grandmother History of heart attack Paternal Grandfather No problems noted. Paternal Grandmother No problems noted. Brother No problems noted. Brother No problems noted. Son No problems noted. Daughter No problems noted. Other Mental health disorder Social History Social History Household Members: None Household Members Other:: daughter Housing: Assisted Living Facility Do you presently have visiting nurse or other home services: No Alcohol intake: former Patient Tobacco Use Status: Former Tobacco user Tobacco use type: Cigarette Cigarettes Per Day: 2 Years Smoked: COUPLE YEAR AGO PER PT e-Cigarette/Vaping Use: Never Used Second Hand Smoke Exposure: No Advance Directives Date on File: 11/25/21 service: No Current occupational status: disabled Cognitive needs: No Hearing needs: No Vision needs: No Physical Exam ED Exam Exam: EXAM: Gen: Alert, awake, well appearing, well hydrated. Poor historian but oriented Head: Atraumatic Eyes: Anicteric, Normal conjunctiva. ENT: Moist mucosa, no pallor. ? Neck: Supple. Skin: ?No observable rash or bruising on exposed or examined skin Respiratory: Breathing comfortably, No distress.Clear to auscultation bilaterally, symmetric chest expansion, No wheeze, rales, ronchi. On nasal cannula 3 L Cardiovascular: Regular rate and rhythm. No murmurs or rub. Well perfused periphery, warm extremities. No edema. ? Abdominal: No focal tenderness. Soft, no objective distension. No palpable masses or obvious organomegaly. ?No guarding, no rebound tenderness or other peritoneal findings. : No flank tenderness. Neuro: Alert. Gross movement of all extremities intact. ? Psych: Calm. Cooperative. MSK: No grossly visible deformity. Mildly tender right upper extremity well- perfused distal right upper extremity Vital signs: See flowsheet Vital Signs: Vital Signs - 24 hr 07/05/25 14:46 07/05/25 15:41 07/05/25 17:02 Temperature 97.8 F 100.3 F Pulse Rate 80 77 Respiratory Rate 18 20 20 Blood Pressure 122/51 L 130/53 L Pulse Oximetry 98 97 97 Oxygen Delivery Method Nasal Cannula Nasal Cannula Nasal Cannula Oxygen Flow Rate 4 4 07/05/25 19:31 07/05/25 21:57 Temperature 98.2 F 98.3 F Pulse Rate 79 72 Respiratory Rate 22 H 18 Blood Pressure 138/55 L 117/40 L Pulse Oximetry 98 99 Oxygen Delivery Method Nasal Cannula Nasal Cannula Oxygen Flow Rate 4 4 BMI result Body Mass Index 19.9 Medications Administered Discontinued Medications Generic Name Dose Route Start Last Admin Trade Name Brownq PRN Reason Stop Dose Admin Acetaminophen 975 mg 07/05/25 16:37 07/05/25 16:56 Acetaminophen 325 Mg Tablet PO 07/05/25 16:38 975 mg ONCE ONE Administration Ceftriaxone Sodium 1 gm/ 50 mls @ 100 mls/hr 07/05/25 16:19 07/05/25 17:32 Sodium Chloride IV 07/05/25 16:48 Infused ONCE ONE Infusion Lactated Ringer's 1,000 mls @ 999 mls/hr 07/05/25 16:30 07/05/25 19:00 Lr IV 07/05/25 17:30 Infused .Q1H1M LADONNA Infusion Medical Decision Making Medical Decision Making MDM Narrative: Medical Decision Makin-year-old female who was recently discharged after immobilization of the right humeral fracture and initiation of steroid treatment for presumed COPD exacerbation. The patient herself has no distress. She is not hypoxic or dyspneic and has no active wheeze. She does have leukocytosis stable from the outpatient routine lab performed and I feel is attributable to steroid initiation. The patient had no temperature above 100.3 nor did she meet any sepsis criteria. The patient was observed several hours we do not find any clinical evidence to suggest an acute bacterial infection. Limited viral panel is negative as well however this may be nonspecific viral infection. I do not think this patient is septic nor do I see any indication for hospitalization at this time. She is in a SNF and could be monitored closely for development of high fever or SIRS criteria which case she should be sent back. Preliminary Favored Differential Diagnosis: Fever, UTI, viral syndrome, leukocytosis secondary to demargination among additional considered etiologies Testing Interpreted Independently: ?See below for details Radiology or Lab testing Results Reviewed: ?See below for details Consults: ?See below for details Independent Historians/External Chart Reviews: ?See below for details Social Determinants of Health Impacting MDM/Planning: ?See below for details Lab Data 07/05/25 16:25 07/05/25 16:25 Labs: Lab Results 10/24/25 10/24/25 10/24/25 Range/Units 16:25 20:22 20:58 WBC 17.8 H (4.8-10.8) X10*3/uL RBC 3.09 L (4.20-5.50) X10*6/uL Hgb 9.4 L (12.0-16.0) g/dl Hct 30.2 L (37.0-47.0) % MCV 97.7 (80.0-98.0) fL MCH 30.4 (27.0-33.0) pg MCHC 31.1 (31.0-35.0) g/dl RDW 13.0 (11.0-16.0) % Plt Count 400 D (160-400) X10*3/uL MPV 9.0 L (9.4-12.3) fL Immature Gran % (Auto) 0.3 (0.0-0.4) % Neut % (Auto) 68.5 (45-73) % Lymph % (Auto) 20.5 (20-40) % [place] % (Auto) 7.9 (2-11) % Eos % (Auto) 2.6 (0-4) % Baso % (Auto) 0.2 (0-2) % Lymph # (Auto) 3.6 (1.2-4.9) X10*3/uL [place] # (Auto) 1.4 H (0.1-1.2) X10*3/uL Eos # (Auto) 0.5 H (0.0-0.4) X10*3/uL Baso # (Auto) 0.0 (0.0-0.2) X10*3/uL Abs Immat Gran (auto) 0.06 H (0.00-0.03) X10*3/uL Absolute Neuts (auto) 12.2 H (2.0-8.3) x10*3/uL Absolute Nucleated RBC 0.000 (0.0-0.012) X10*3/uL Nucleated RBC % (auto) 0.0 (0.0-0.2) /100WBC Sodium 139 (135-145) mmol/L Potassium 4.5 (3.3-5.1) mmol/L Chloride 95 L (96-108) mmol/L Carbon Dioxide 37 H (22-29) mmol/L Anion Gap 12 (12-20) BUN 11 (9-16) mg/dL Creatinine 0.62 (0.5-1.4) mg/dL Estim Creat Clear Calc 72.6 Estimated GFR > 60 Random Glucose 96 (60-115) mg/dL Lactic Acid 0.9 (0.5-2.0) mmol/L Calcium 9.0 (8.4-10.2) mg/dL Total Bilirubin 0.2 (0.0-1.0) mg/dL Direct Bilirubin < 0.2 (0.0-0.5) mg/dL AST 19 (5-31) U/L ALT 22 (0-31) U/L Alkaline Phosphatase 66 (39-117) U/L Total Protein 6.0 L (6.5-8.0) g/dL Albumin 3.8 (3.5-5.0) g/dL Lipase 41 (8-78) U/L Procalcitonin 0.16 ng/mL Urine Color Yellow Urine Appearance Clear Urine pH 6.0 (5.0-9.0) Ur Specific [place] <= 1.005 (1.005-1.025) Urine Protein Negative (Neg-Trace) mg/dL Urine Glucose (UA) Negative (Negative) mg/dL Urine Ketones Negative (Negative) mg/dL Urine Blood Negative (Negative) Urine Nitrite Negative (Negative) Ur Leukocyte Esterase Negative (Negative) Influenza Type A (PCR) NEGATIVE (Negative) Influenza Type B (PCR) NEGATIVE (Negative) RSV RNA Qual (PCR) NEGATIVE (Negative) SARS-CoV-2 RNA (RT-PCR) NEGATIVE (Negative) Discharge Plan Discharge Clinical Impression: Leukocytosis Patient Disposition: Home, Self-Care Instructions: Leukocytosis (ED) Additional Instructions: The patient was sent in after discovering elevated white blood cell counts on outpatient lab work from [facility]. In the emergency department the patient did not had a formal elevated body temperature. Highest temperature found was 100.3. She did not have tachycardia or low blood pressure. She does have leukocytosis however she has been on prednisone for several days likely causing demargination. Urinalysis was performed no signs of UTI. She had nontender abdomen no signs of skin infection. Chest CT was performed with no focal signs of infectious process. Viral panel negative. No indication at this point for admission she had received upon arrival 1 dose of ceftriaxone I do not think she needs any additional antibiotic treatment at this time and can be monitored closely. Blood cultures were drawn if they return positive she can be sent back to the emergency department for admission Prescriptions: No Action albuterol sulfate 90 mcg/actuation HFA aerosol inhaler 2 puff PO Q6H PRN (Reason: bronchospasm) 30 Days Qty: 6.7 0RF docusate sodium 100 mg capsule 100 mg PO DAILY PRN (Reason: Constipation) Qty: 90 0RF (DME) orthotic consult See Rx Instructions .Route .MEDSUPPLY Qty: 1 0RF Rx Instructions: Orthotic consult to right hand as directed (DME) Orthotic consult See Rx Instructions .Route .MEDSUPPLY Qty: 1 0RF Rx Instructions: orthotic consult to right foot as directed. amlodipine 5 mg tablet 5 mg PO DAILY 90 Days Qty: 90 2RF atorvastatin 40 mg tablet 40 mg PO BEDTIME Qty: 90 3RF mirtazapine 30 mg tablet 30 mg PO BEDTIME 90 Days Qty: 90 1RF folic acid 1 mg tablet 1 mg PO DAILY Qty: 90 1RF metoprolol tartrate 25 mg tablet 25 mg PO BID 90 Days Qty: 180 2RF ipratropium-albuterol 0.5 mg-3 mg(2.5 mg base)/3 mL solution for nebulization 3 ml inhalation QID PRN (Reason: for dyspnea) Qty: 180 5RF ferrous sulfate 324 mg (65 mg iron) tablet,delayed release (DR/EC) 324 mg PO BID 90 Days Qty: 180 0RF omeprazole 20 mg capsule,delayed release(DR/EC) 20 mg PO DAILY@0630 Qty: 90 2RF prednisone 20 mg tablet 40 mg PO DAILY 7 Days Qty: 14 0RF cephalexin 500 mg capsule 500 mg PO Q12H 4 Days Qty: 8 0RF oxycodone 5 mg tablet 5 mg PO Q8H PRN (Reason: pain) 5 Days Qty: 15 0RF Rx Instructions: Partial Fill upon patient request. oxycodone 5 mg tablet 5 mg PO TID PRN (Reason: pain (scale score 7-10)) Qty: 15 0RF Rx Instructions: Partial Fill upon patient request. polyethylene glycol 3350 17 gram powder in packet 17 g PO DAILY PRN (Reason: Constipation) (DME) Diapers Very small See Rx Instructions .Route .MEDSUPPLY Qty: 90 5RF Rx Instructions: 3 times a day aspirin [Adult Low Dose Aspirin] 81 mg tablet,delayed release (DR/EC) 81 mg PO DAILY Qty: 90 0RF levetiracetam 500 mg tablet 500 mg PO BID 90 Days Qty: 180 6RF gabapentin 300 mg capsule 300 mg PO TID 90 Days Qty: 270 1RF sertraline 50 mg tablet 50 mg PO DAILY Qty: 90 3RF Interventions: ED Discharge Assessment Last Done: 07/06/25 01:33 Discharge Date/Time: 07/06/25 01:37 Print Language: [place]
--- NOTE | 2025-07-05 16:09 | PC.NURSE ---
pt is alert and oriented, skin pwd, respirations even and unlabored, ls diminished through out all bases, pt is on oxygen at baseline at 4l and sating well at 97%, pt denies pain, no cough, just feeling generally weak had blood work done at the facility and wbc was 17.5
--- NOTE | 2025-07-05 16:10 | PC.NURSE ---
having a really hard time obtaining iv access pt is a hard stick
--- NOTE | 2025-07-05 16:29 | PC.NURSE ---
iv access gained by another rn via ultra sound
[2025-07-05 16:35] LABS: MANUAL DIFF FLAG NO
[2025-07-05 16:43] LABS: Hematocrit 30.2 % (37.0-47.0); Hemoglobin 9.4 g/dl (12.0-16.0); Imm Gran Abs Auto 0.06 X10*3/uL (0.00-0.03); Imm Gran Pct Auto 0.3 % (0.0-0.4); Lymphocytes Absolute Auto 3.6 X10*3/uL (1.2-4.9); Mean Corpuscular HGB Conc 31.1 g/dl (31.0-35.0); Mean Corpuscular Hemoglobin 30.4 pg (27.0-33.0); Mean Corpuscular Volume 97.7 fL (80.0-98.0); NRBC Abs Auto 0.000 X10*3/uL (0.0-0.012); NRBC Pct Auto 0.0 /100WBC (0.0-0.2); Platelet Count 400 X10*3/uL (160-400); Red Blood Count 3.09 X10*6/uL (4.20-5.50); White Blood Count 17.8 X10*3/uL (4.8-10.8)
[2025-07-05] MEDS: Lactated Ringers 1,000 ML 999 ML IV (16:56)
[2025-07-05 17:02] VITALS: BP 130/53; RESP 20; O2SAT 97
[2025-07-05 17:06] LABS: Alanine Aminotransferase 22 U/L (0-31); Albumin Level 3.8 g/dL (3.5-5.0); Alkaline Phosphatase 66 U/L (39-117); Anion Gap 12 (12-20); Aspartate Amino Transferase 19 U/L (5-31); Blood Urea Nitrogen 11 mg/dL (9-16); Calcium 9.0 mg/dL (8.4-10.2); Carbon Dioxide 37 mmol/L (22-29); Chloride 95 mmol/L (96-108); Creatinine Clr Calc Pharmacy 72.6; Estimated Glomerular Filt Rate > 60; Lipase 41 U/L (8-78); Potassium 4.5 mmol/L (3.3-5.1); Sodium 139 mmol/L (135-145); Total Protein 6.0 g/dL (6.5-8.0)
[2025-07-05 18:11] LABS: Procalcitonin 0.16 ng/mL
[2025-07-05 19:31] VITALS: BP 138/55; PULSE 79; RESP 22; TEMP 36.8; O2SAT 98
--- NOTE | 2025-07-05 19:32 | MHC.EDTECH ---
@19:20 Patient inform this tech she was wet. Patient was wearing a brief, brief was taken off. The patient was washed up with warm ready bath wipes, pure wick placed. Patient boosted, vitals updated, call campbell in hand. Patient is all set at this time.
--- NOTE | 2025-07-05 19:45 | PC.NURSE ---
Assumed care of pt, MARLEE from [facility] for elevated WBC, c/o generalised weakness, pt is on 4L NC base line, aaox4, nad, pt has a sling on the right arm for right humerus fracture
[2025-07-05 20:29] LABS: Appearance Urine Clear; Glucose Urine UA Negative (Negative); PH 6.0 (5.0-9.0); Specific Gravity - Urine <= 1.005 (1.005-1.025)
[2025-07-05 21:39] LABS: Resp Syncy Virus RNA Qual PCR NEGATIVE (Negative); SARS COV2 PCR INHOUSE NEGATIVE (Negative)
[2025-07-05 21:57] VITALS: BP 117/40; PULSE 72; RESP 18; TEMP 36.8; O2SAT 99
--- NOTE | 2025-07-05 23:02 | PC.NURSE ---
Report called to [facility], spoke with SACHA Candelaria
[2025-07-06 01:29] VITALS: BP 133/52; PULSE 83; RESP 20; TEMP 36.6; O2SAT 100
[2025-07-06 01:33] VITALS: BP 133/52; PULSE 83; RESP 20; TEMP 36.6; O2SAT 100
== END 2025-07-06 01:37 | disposition home or self-care (01) ==
PROVIDERS: Emergency Provider Emergency Medicine; PCP Internal Medicine
DX: D72.829 Elevated white blood cell count, unspecified (principal); R78.9 Finding of unspecified substance, not normally found in blood
CPT/HCPCS: 36415; 71045; 71250; 80048; 80076; 81003; 83605; 83690; 84145; 85025; 87040; 87637; 96361; 96365; 99284; 99285; J0696; J7120

== ENCOUNTER 2025-07-08 13:24 | Outpatient (REF) | payer OTHER, SELFPAY | END 2025-07-08 13:25 | disposition home or self-care (01) | LOC: HO.HOSX 13:24 | DX: Z13.89 Encounter for screening for other disorder (principal) ==

== ENCOUNTER 2025-07-16 13:51 | Outpatient (AMB) | payer OTHER, SELFPAY ==
--- NOTE | 2025-07-16 13:58 | A.OFFVIS_ITS ---
Vital Signs 07/16/25 13:59 Height 5 ft 1 in BP 120/50 L Blood Pressure Location Lt brachial Position Sitting Pulse 92 Pulse Source Pulse Oximeter Pulse Oximetry (%) 94 Oxygen Delivery Method Nasal Cannula Oxygen Flow Rate 3 Intake Visit Reasons: solitary pulmonary nodules Intake Note: pt is here for follow up of [facility], and states her breathing is not good, she is at [facility] right now, she had a fall, broke a arm. She has not had her inhaler for a few days, Trelegy. Organizational Development Consultant Required: No Allergies crab Allergy (Unknown, Verified 07/16/25 16:05) Hives penicillin V Allergy (Unknown, Verified 07/16/25 16:05) hives Penicillins (PENICILLINS) Allergy (Unknown, Verified 07/16/25 16:05) hives SEASONAL ALLERGIES Allergy (Mild, Uncoded 07/16/25 16:05) RUNNY NOSE Medication List - Last Reconciled 07/16/25 by Juan Carlos Gonzalez MD albuterol sulfate 90 mcg/actuation 2 puffs PO Q6H PRN 30 days albuterol sulfate 2.5 mg inhalation Q4-6H PRN amlodipine 5 mg PO DAILY 90 days aspirin (Adult Low Dose Aspirin) 81 mg PO DAILY atorvastatin 40 mg PO BEDTIME cephalexin 500 mg PO Q12H 4 days [Diapers 3 times a day] docusate sodium 100 mg PO DAILY PRN famotidine 20 mg PO DAILY ferrous sulfate 324 mg PO BID 90 days [id number]-bobsnlrzv-asvjvrhv 100-62.5-25 mcg (Trelegy Ellipta) 1 inh inhalation DAILY folic acid 1 mg PO DAILY gabapentin 300 mg PO TID 90 days ipratropium-albuterol 0.5 mg-3 mg(2.5 mg base)/3 mL 3 mL inhalation QID PRN levetiracetam 500 mg PO BID 90 days metoprolol tartrate 25 mg PO BID 90 days mirtazapine 30 mg PO BEDTIME 90 days omeprazole 20 mg PO DAILY@0630 [orthotic consult Orthotic consult to right hand as directed] [Orthotic consult orthotic consult to right foot as directed.] oxycodone 5 mg PO Q8H PRN 5 days oxycodone 5 mg PO TID PRN polyethylene glycol 3350 17 grams PO DAILY PRN prednisone 40 mg (2 x 20 mg) PO DAILY 7 days sertraline 50 mg PO DAILY Do you need a note to return to daycare/school/sports/work: No HPI HPI solitary pulmonary nodules: Details: This 59 years old female with advanced chronic obstructive pulmonary disease. And Lt.Loer lobe nodule. She had percutaneous biopsy of the pulmonary nodule on 07/05/2025 , There was no pneumothorax. Biopsy shows, some atypical cells but no definite malignant cells. However the sample was not sufficient, so recommendation was that she needs a repeat biopsy. After the procedure she was noted to have some ecchymosis of the right arm, and 2 weeks before her x-ray had shown fracture of the. Head of the humerus . So patient was admitted to the hospital stabilized and then sent to [facility] facility. She has come to see me from there today. Meds have been changed , and she is using Trelegy inhaler once a day, and also on ipratropium-albuterol solution in the nebulizer Q 6 hours while awake. She comes today for follow-up. Pulmonary status is same as usual, she is on continuous oxygen. When at home or at the facility she uses the stationary concentrator and with that she requires oxygen about 4 L/minute. When she goes outdoors she uses portable oxygen concentrator on with that she finds that 3 L/minute is okay. [facility] Medical History Seizure (~11/2021) History of multiple cerebrovascular accidents (CVAs) Hemiparesis affecting right side as late effect of cerebrovascular accident Aphasia History of non-ST elevation myocardial infarction (NSTEMI) (~11/2021) History of acute respiratory distress syndrome (ARDS) (~08/2021) Coronary artery disease Takotsubo cardiomyopathy COPD (chronic obstructive pulmonary disease) Respiratory failure with hypoxia Oxygen dependent Personal history of nicotine dependence Hemoptysis Closed subcapital fracture of femur Cocaine abuse Hypertensive emergency Normocytic anemia History of drug abuse Cocaine abuse Major depression, recurrent Acute CHF (congestive heart failure) Hypercapnic respiratory failure, chronic Asymptomatic carotid artery stenosis with infarction Chronic GERD Environmental allergies Anxiety, generalized Lipid disorder Asthma, moderate Surgical History History of left-sided carotid endarterectomy (~09/2012) History of tonsillectomy and adenoidectomy Family History Father Substance abuse Mother Brain cancer Maternal Grandfather History of heart attack Maternal Grandmother History of heart attack Paternal Grandfather No problems noted. Paternal Grandmother No problems noted. Brother No problems noted. Brother No problems noted. Son No problems noted. Daughter No problems noted. Other Mental health disorder Social History Household Members: None Household Members Other:: daughter Housing: Assisted Living Facility Do you presently have visiting nurse or other home services: No Alcohol intake: former Patient Tobacco Use Status: Former Tobacco user Tobacco use type: Cigarette Cigarettes Per Day: 2 Years Smoked: COUPLE YEAR AGO PER PT e-Cigarette/Vaping Use: Never Used Second Hand Smoke Exposure: No Advance Directives Date on File: 11/25/21 service: No Current occupational status: disabled Cognitive needs: No Hearing needs: No Vision needs: No Review of Systems Const All systems reviewed & are unremarkable except as noted in HPI and below Eyes Reports no additional complaints ENT Reports no additional complaints (Is set at occasional nasal bleed due to irritation by the nasal cannula) Card Denies chest pain and Denies dyspnea on exertion Resp Denies dyspnea on exertion GI Reports heartburn (Symptoms of GERD treated with omeprazole) Reports no additional complaints Musc Reports abnormal gait (Impaired gait due to right hemiplegia), Reports muscle weakness and Reports other (Right-sided hemiplegia) Skin/Breast Reports system reviewed and no additional complaints, except as documented Neuro Reports abnormal gait (Impaired gait due to right hemiplegia) Psych Reports depression Endo Reports no additional complaints Antwan/Lymph Reports no additional complaints Physical Exam Vital Signs: Last Vital Signs Pulse 92 07/16/25 13:59 BP 120/50 L 07/16/25 13:59 Pulse Ox 94 07/16/25 13:59 Oxygen Delivery Method Nasal Cannula 07/16/25 13:59 Oxygen Flow Rate 3 07/16/25 13:59 Const Other: Chronically sick looking, of a thin build, and somewhat emaciated. General: comfortable (in wheelchair ), no acute distress, alert and awake Orientation/consciousness: patient oriented x3 HEENT Head: Yes normal to inspection and Yes other (ECCHYMOSIS, ON THE RIGHT SIDE OF THE FOREHEAD. NO HEMATOMA) General nose exam: No nasal polyps present and No nasal discharge present Face and sinus: Yes sinuses nontender Mouth: oropharynx normal Throat: Yes posterior oropharynx normal Eyes General: appearance normal, both eyes and all related structures Neck Neck: Yes normal visual inspection, Yes no lymphadenopathy, Yes trachea midline and Yes no JVD Thyroid: Thyroid normal Chest Chest palpation & inspection: normal inspection of the chest, normal palpation of entire chest wall and no tenderness Resp Other: Percussion note is hyper resonant. Breath sounds are distant with prolonged expiratory phase. No wheezes or crepitations are heard. Cardio Palpation: normal PMI Rate: regular rate Rhythm: regular rhythm Heart sounds: no gallops and no murmurs GI Palpation (GI): Soft to palpation, nontender, No hepatosplenomegaly present and no masses Auscultation: normal bowel sounds Back/Spine/Pelvis Thoracic/Lumbar Spine: thoracic and lumbar spine normal to inspection and thoraco-lumbar ROM limited Skin General skin exam: no rashes or lesions noted Neuro General: patient oriented x3 and No no focal motor deficits (Has right hemiplegia) Cranial nerves: Yes CN's II-XII intact bilaterally Extrem General: Yes normal to inspection, Yes no clubbing, cyanosis or edema and Yes no calf tenderness Psych Appearance: grossly normal and well kempt Speech and movement: Normal speech and movement present Results Reviewed Results Reviewed: Needle biopsy of a pulmonary nodule left lower lobe, shows atypical cells with mucinous changes. Recommendation is to repeat the biopsy. Assessment & Plan Assessment & Plan (1) COPD (chronic obstructive pulmonary disease): Comment: She does have chronic obstructive pulmonary disease secondary to her long-time smoking. It seems to be fairly stable at this time. Code(s): J44.9 - Chronic obstructive pulmonary disease, unspecified Category: Medical Qualifiers: COPD type: emphysema Emphysema type: panlobular Qualified Code(s): J43.1 - Panlobular emphysema Plan: Trelegy Ellipta 1 inhalation daily DuoNeb updrafts Q 6 hours p.r.n.. No need to use albuterol while using DuoNeb updrafts Continue the tapering dose of prednisone and currently 5 mg daily to continue. (2) Nicotine dependence, cigarettes, uncomplicated: Comment: Patient has lifelong history of smoking. Claims that she has quit smoking completely since January 2024. Code(s): F17.210 - Nicotine dependence, cigarettes, uncomplicated Category: Medical Plan: Once again I stress that she can not go back to smoking. (3) Pulmonary nodule 1 cm or greater in diameter: Comment: She has had pulmonary nodule in the right lower lobe which remains stable in size and pulmonary nodule in the left lower lobe, pleural based, which has grown in size . She underwent percutaneous needle biopsy on 07/05 , he showed some atypical cells with mucinous character, but not any definite neoplasm. However it was felt that the sample may be insufficient. Code(s): R91.1 - Solitary pulmonary nodule Category: Medical Plan: Recommendation is that she should have a repeat biopsy. But the patient at this time is not willing to undergo the procedure. We may just have to repeat another CT scan in 3 months. (4) Hypercapnic respiratory failure: Comment: Patient has chronic hypoxemic and hypercapnic respiratory failure. PCO2 level is remaining stable. She is. On continuous oxygen therapy Code(s): J96.92 - Respiratory failure, unspecified with hypercapnia Category: Medical Qualifiers: Chronicity: acute Qualified Code(s): J96.02 - Acute respiratory failure with hypercapnia Plan: O2 3-4 L/minute continuously. Goal is to keep O2 sat 90% or above. Use portable unit when going outdoors and keep oxygen level above 90% Coding Level of Care Code Est Pt Level 3 (09160) Diagnoses Panlobular emphysema J43.1 COPD type: emphysema Emphysema type: panlobular Nicotine dependence, cigarettes, uncomplicated F17.210 Pulmonary nodule 1 cm or greater in diameter R91.1 Acute respiratory failure with hypercapnia J96.02 Chronicity: acute
[2025-07-16 13:59] VITALS: BP 120/50; PULSE 92; O2SAT 94
== END 2025-07-16 14:33 | disposition home or self-care (01) ==
LOC: HO.HPS 13:52
PROVIDERS: PCP Internal Medicine; Visit Provider Internal Medicine
DX: J43.1 Panlobular emphysema (principal); F17.210 Nicotine dependence, cigarettes, uncomplicated; R91.1 Solitary pulmonary nodule; J96.02 Acute respiratory failure with hypercapnia
CPT/HCPCS: 99213

== ENCOUNTER → 2025-07-16 13:51 | Outpatient (BNVA) | payer OTHER, SELFPAY | PROVIDERS: PCP Internal Medicine; Visit Provider Internal Medicine | DX: J43.1 Panlobular emphysema (principal); R91.1 Solitary pulmonary nodule; J96.02 Acute respiratory failure with hypercapnia; F17.210 Nicotine dependence, cigarettes, uncomplicated; I69.351 Hemiplegia and hemiparesis following cerebral infarction affecting right dominant side; Z99.81 Dependence on supplemental oxygen | CPT/HCPCS: 99212 ==

== ENCOUNTER 2025-08-01 08:25 | Outpatient (AMB) | payer OTHER, SELFPAY ==
--- OUTSIDE RECORDS SUMMARY | 2025-07-30 13:30 | XMS_ITS | Encounter Summary ---
Author Organization [facility] Address [address] [place] [address] Phone Care Team Providers Care Email Production Specialist Name Role Phone Brianna Gonzalez MD Primary Care Provider [phone] Reason for Visit * Auth/Cert (Routine) Specialty Diagnoses / Procedures Referred By Emmanuel rivers Referred To Contact Referral ID Status Reason Start Date Expiration Date Visits Re quested Visits Authorized [id number] 1 1 Encounter Details Date Type Department Care Team ([facility] st Contact Info) Description 07/30/2025 1:30 PM EST Home Care Visit [facility] [address] [place], [place] [phone] Chasity Molina, OT [address] [place] [address] [email or web address] OT HOME VISIT Social History Tobacco Use Types Packs/Day Years Used Date Smoking Tobacco: Never Assessed Home Health Assessment: Transportation Answer Date Recorded Lack of Transportation (Medical) No 07/24/2025 Lack of Transportation (Non-Medical) No 07/24/2025 Patient Unable or Declines to Respond No 07/24/2025 Education Answer Date Recorded Are you interested in more education? Not on lizett e 01/07/2023 Are you concerned about learning? Not on file 01/07/2023 No 01/07/2023 No 01/07/2023 Digital Access Answer Date Recorded No 02/07/2023 No 02/07/2023 No 02/07/2023 Reliable internet access at home? Not on file 02/07/2023 Device with a working camera? Not on file Comments Unknown Sex and Gender Information Value Date Recorded Sex Assigned at Not on file Legal Sex Female 10:33 PM EDT Gender Identity Not on file Sexual Orientation Not on file documented as of this encounter Last Filed Vital Signs Vital Sign Reading Time Taken Comments Blood Pressure 120/58 07/30/2025 1:54 PM EST Pulse 76 07/30/2025 1:54 PM EST Temperature 36.7 C (98 F) 07/30/2025 1:54 PM EST Respiratory Rate 20 07/30/2025 1:54 PM EST Oxygen Saturation 92% 07/30/2025 1:54 PM EST Inhaled Oxygen Concentration - - Weight - - Height - - Body Mass Index - - documented in this encounter Plan of Treatment Upcoming Encounters Date Type Department Care Team (Late st Contact Info) Description 08/01/2025 11:00 AM EST Appointment [facility] [address] [place] [phone] Domitila Cifuentes, PT [address] [place] [address] 08/01/2025 1:30 PM EST Appointment [facility] [address] [place] [phone] Chasity Molina, OT [address] [place] [address] 08/06/2025 Appointment [facility] [address] [place] [address] Osiris Cabrera, RN [address] [place] [address] 08/06/2025 1:45 AM EST Appointment [facility] [address] [place] [phone] Chasity Molina, OT [address] [place] [address] 08/09/2025 12:30 AM EST Appointment [facility] [address] [place] [address] Osiris Cabrera, RN [address] [place] [address] 08/13/2025 Appointment [facility] [address] [place] [phone] Chasity Molina, OT [address] [place] [address] 08/13/2025 1:00 AM EST Appointment [facility] [address] [place] [phone] Osiris Cabrera, RN [address] [place] [address] 08/15/2025 Appointment [facility] [address] [place] [phone] Chasity Molina, OT [address] [place] [address] 08/20/2025 Appointment [facility] [address] [place] [phone] Chasity Molina, OT [address] [place] [address] 08/20/2025 1:00 AM EST Appointment [facility] [address] [place] [phone] Osiris Cabrera, RN [address] [place] [address] 08/22/2025 Appointment [facility] [address] [place] [phone] Chasity Molina, OT [address] [place] [address] 08/27/2025 12:30 AM EST Appointment [facility] [address] [place] [phone] Osiris Cabrera, SACHA [address] [place] [address] 09/03/2025 12:30 AM EST Appointment [facility] [address] [place] [phone] Osiris Cabrera RN [address] [place] [address] 09/10/2025 12:30 AM EST Appointment [facility] [address] [place] [phone] Osiris Cabrera RN [address] [place] [address] 09/17/2025 Appointment [facility] [address] [place] [address] Osiris Cabrera RN [address] [place] [address] documented as of this encounter Visit Diagnoses Not on filedocumented in this encounter Home Health Visit - Care Plan Visit Details Visit Type -OT HOME VISIT Discipline -Occupational Therapy Problems Problem Description Start Date Status Goals Interve ntions HH - Medication Management Disciplines: All Active Home Health Disciplines 07/24/2025 Active 1 goal linked to scheduled/document ed intervention 2 goal interventions scheduled/document ed in this visit HH - Focus of Care and Teaching Disciplines: All Active Home Health Disciplines w/RD 07/24/2025 Active 1 goal linked to scheduled/document ed intervention 1 goal intervention scheduled/document ed in this visit HH - Emergency Planning - Knowledge of Disciplines: All Active Home Health Disciplines 07/24/2025 Active 1 goal linked to scheduled/document ed intervention 2 goal interventions scheduled/document ed in this visit HH - Respiratory Status - Impaired Disciplines: All Active Home Health Disciplines 07/24/2025 Active 1 goal linked to scheduled/document ed intervention 1 goal intervention scheduled/document ed in this visit HH - Infection - Actual or Risk of Disciplines: All Active Home Health Disciplines 07/24/2025 Active 1 goal linked to scheduled/document ed intervention 1 goal intervention scheduled/document ed in this visit HH - Standard of Care Disciplines: All Active Home Health Disciplines 07/24/2025 Active 1 goal linked to scheduled/document ed intervention 4 goal interventions scheduled/document ed in this visit HH - Pain Disciplines: All Active Home Health Disciplines 07/24/2025 Active 1 goal linked to scheduled/document ed intervention 1 goal intervention scheduled/document ed in this visit HH - Orthopedic Aftercare Disciplines: All Active Home Health Disciplines 07/24/2025 Active 1 goal linked to scheduled/document ed intervention 2 goal interventions scheduled/document ed in this visit HH - ADL/IADL Impairment and Therapeutic Interventions Disciplines: Occupational Therapy 07/25/2025 Active 1 goal linked to scheduled/document ed intervention 2 goal interventions scheduled/document ed in this visit Goals Goal Associated Problem Outcome Goal Met? Visit Notes HH - Safe medication management, avoid unnecessary harm related to medication errors and/or interactions HH - Medication Management No HH - Communication and collaboration to achieve patient goals HH - Focus of Care and Teaching No HH - Knowledge of options for managing care in the event of an emergency related situation. HH - Emergency Planning - Knowledge of No HH - Demonstrate/verbalize causes, impacts, and management of respiratory condition resulting in adequate oxygenation and ventilation HH - Respiratory Status - Impaired No HH - Patient will have no new infection; any new infection that occurs will be identified and treated promptly; existing infection will resolve without complication Description: Patient and caregiver(s) will demonstrate understanding of infection prevention, monitoring, and treatment as appropriate HH - Infection - Actual or Risk of No HH - Achieve care management for a safe to home/community discharge from homecare HH - Standard of Care No HH - Frequency of pain interfering with patient's activity or movement will improve with activity or movement by discharge. Description: Pain will be managed over the course of care. Patient's acceptable level of pain is 2 - less often than daily. HH - Pain No HH - Demonstrate/verbalize management of orthopedic aftercare HH - Orthopedic Aftercare No HH - Promote higher level of independence with performance of ADLs/IADLs. Description: OT GOALS: 1. Pt will participate in confidence program, as a means of decreasing urinary incontinence by 08/23/25. 2. Pt and caregiver will complete a right hand PROM HEP to prevent further flexion contractures in right hand, by 08/23/25. 3. Pt will t olerate wearing splint to right hand and/or using washcloth placed in right hand, to promote finger extension and manage flexor tone for optimal skin integrity in hand, by 08/23/25. 4. Pt will implement pursed lip breathing strategies into functional AD L tasks/functional mobility, to maintain O2 sats >88% with functional ADLs, by 08/23/25. 5. Pt will complete upper body dressing at set up/supervision level, implementing veronique-dressing strategies, by 08/23/25. 6. Pt will complete lower body dressing (pants/underwear) at set up/supervision level, using veronique-dressing strategies and adaptive equipment as needed by 08/23/25. 7. Pt and caregiver will verbalize understanding of adaptive equipment recommendations to promote pt's optimal safety and functio nal independence by 08/23/25. HH - ADL/IADL Impairment and Therapeutic Interventions Progressing No Interventions Intervention Associated Problem/Goal Status Variance Visit Notes HH - I/E medication management: administration, purpose, dosages, preparation, setup, scheduling, side effects, food/drug interactions, and potential complications as indicated Description: Update patient's copy of medication list as needed. Problem:HH - Medication Management Goal:HH - Safe medication management, avoid unnecessary harm related to medication errors and/or interactions Performed HH - Complete medication review every visit and medication reconciliation as indicated. Pharmacy information: Description: [facility] Problem:HH - Medication Management Goal:HH - Safe medication management, avoid unnecessary harm related to medication errors and/or interactions Performed HH - Focus of care, teaching completed and plan for next visit Problem:HH - Focus of Care and Teaching Goal:HH - Communication and collaboration to achieve patient goals Performed Primary Clinical Focus this Visit & Instruction Provided: The splint for my hand was useless for me. I couldn't wear it properly and it hurt me. Pt did agree to have OTR assist her in placing a rolled washcloth in the palm of her hand. OTR noted pt' s fingernails are sharp/jagged. Pt to ask friend to assist with clipping/filing nails. Pt tolerated washcloth positioning well, with position of layer of washcloth under right thumb, as a barrier to protect skin. OTR then asked the following question s: URINARY INCONTINENCE-EVALUAT ION QUESTIONS HOW MUCH DO YOU DRINK PER DAY? DO YOU DRINK CAFFEINE? I drink 2 cans of pepsi during day and 1 at night. I drink 1-2 ice teas. Once in a while, I'll drink some water. WHAT TIME DO YOU HAVE YOUR LA ST FLUID INTAKE AT NIGHT? I drink throughout the night. I wake up and I'm thirsty, so I leave the soda by my bed. WHAT TIME TO YOU GO TO BED? 11pm HOW MANY TIMES DO YOU GET UP TO URINATE AT NIGHT? 2-3 times a night DO YOU HAVE LEAKING AT VANESSA T TIME? sometimes DURING THE DAY, HOW MUCH TIME PASSES BETWEEN TRIPS TO THE BATHROOM? 4+ hours DO YOU LEAK WHEN YOU LAUGH, COUGH, SNEEZE, EXERCISE, CARRY SOMETHING HEAVY? not that I know of. DO YOU HAVE A SUDDEN AND STRONG URGE TO URINATE? some times. DO YOU HAVE LEAKING WITH THAT SUDDEN STRONG URGE? yes DURING THE DAY DO YOU WEAR A BREIF, PAD OR BOTH AT THE SAME TIME? 'I wear a poise pad all the time. DURING THE NIGHT DO YOU WEAR A BREIF, PAD OR BOTH AT THE SAME TIME? I wear a po ise pad at night too. HOW WOULD YOU DESCRIBE THE LEVEL OF WETTNESS IN THE BREIF? It depends on how much I go, because I don't always go just a little bit. HOW OFTEN ARE YOU FINDING THE PAD/BREIF WET AND HOW OFTEN DOES IT NEED TO BE CHANGED DURI NG THE DAY? DURING THE NIGHT? once WHAT MEDS/OTHER TREATMENTS DO YOU USE/HAVE YOU TRIED IN PAST? no. OTR reviewed lifestyle changes, highlighting the importance of pt limiting caffeine and carbonation to help limit cause of bladder irritation. OTR stressed the importance of limiting fluid intake the last 2-3 hours before bed. Pt reports she keeps soda by her bed at night. OTR recommended pt have a cup of water to drink then spit water into adjacent cup to help manage dry mouth. OTR also jeanne mmended Biotene mouthwash, mouth spray and/or toothpaste to help manage dry mouth symptoms. Finally, OTR educated pt on 'rising/falling' breath strategy, advising pt that due to 'neglect' of responding to urge to urinate in past, pt's bladder nerve is 'irritated' and is hyperactive, causing her to urinate when she is not sitting on toilet. Through use of 'rising/falling' breath strategy pt reports It feels about the same. OTR highlighted that it is important for pt to practice this breathing stra tegy whenever she is walking, especially when she is going to bathroom, as it will help keep bladder nerve 'calm' and give her the extra 5-10 seconds she requires to get to the bathroom. Pt verbalized understanding and returned demonstration, but she wi ll need ongoing review. Pt will benefit from ongoing review during upcoming OT visits. Instruction Provided to: patient and caregiver Response to Instruction/Teaching : Is partially able to teach back topics as evidenced by . Plan for Next Visit Specific Focus & Education Needed: confidence program for urinary incontinence New Orders: none Updated Discharge Plan: unchanged HH - I/E management of care in an urgent or emergency (ER) situation: When to call your Home Care Team/911, ER plans, supplies, evacuation, when to contact local ER officials and how to stay informed Problem:HH - Emergency Planning - Knowledge of Goal:HH - Knowledge of options for managing care in the event of an emergency related situation. Performed HH - Emergency planning assessment: the emergency plan, supplies needed, emergency contact numbers and an evacuation plan were reviewed Description: Patient and Caregiver is/are knowledgeable of emergency plans. Problem:HH - Emergency Planning - Knowledge of Goal:HH - Knowledge of options for managing care in the event of an emergency related situation. Performed HH - Oxygen Therapy Description: Dose, route, and frequency details are on the medication list. Problem:HH - Respiratory Status - Impaired Goal:HH - Demonstrate/verbalize causes, impacts, and management of respiratory condition resulting in adequate oxygenation and ventilation Performed HH - Assess infection risk and s/s Problem:HH - Infection - Actual or Risk of Goal:HH - Patient will have no new infection; any new infection that occurs will be identified and treated promptly; existing infection will resolve without complication Performed HH - Assess vital signs, pulse oximetry, pain, and as indicated, orthostatic vital signs Description: use agency-specific parameters Problem:HH - Standard of Care Goal:HH - Achieve care management for a safe to home/community discharge from homecare Performed HH - Assess skin integrity Problem:HH - Standard of Care Goal:HH - Achieve care management for a safe to home/community discharge from homecare Performed HH - Assess safety needs of patient (other than falls) Problem:HH - Standard of Care Goal:HH - Achieve care management for a safe to home/community discharge from homecare Performed HH - I/E discharge plan Problem:HH - Standard of Care Goal:HH - Achieve care management for a safe to home/community discharge from homecare Performed HH - Assess pain Problem:HH - Pain Goal:HH - Frequency of pain interfering with patient's activity or movement will improve with activity or movement by discharge. Performed HH - I/E orthopedic management: normal healing process, abnormal findings, use of devices, and precautions/restriction s Problem:HH - Orthopedic Aftercare Goal:HH - Demonstrate/verbalize management of orthopedic aftercare Performed HH - Assess orthopedic aftercare and healing process. Assess peripheral circulation, pulses, color, sensation, and movement Problem:HH - Orthopedic Aftercare Goal:HH - Demonstrate/verbalize management of orthopedic aftercare Performed HH - I/E ADL/IADL performance, safety, and management Description: As indicated: ADL/IADL training, functional mobility training, adaptive equipment: recommendations and use, therapeutic exercise and home exercise program, safety, energy conservation/pacing, cognitive training, and visual/perceptual strategies. Problem:HH - ADL/IADL Impairment and Therapeutic Interventions Goal:HH - Promote higher level of independence with performance of ADLs/IADLs. Performed HH - Assess ADL/IADL performance, safety, management, and durable medical equipment Problem:HH - ADL/IADL Impairment and Therapeutic Interventions Goal:HH - Promote higher level of independence with performance of ADLs/IADLs. Performed documented in this encounter Care Teams Email Production Specialist Relationship Specialty Start Date End Date Brianna Gonzalez MD [address] [place] [address] [place] [phone] PCP - General Internal Medicine 07/11/25 documented as of this encounter Additional Source Comments The information contained in this document represents components of the legal health record. It is not the complete legal health record.[facility]
--- OUTSIDE RECORDS SUMMARY | 2025-07-30 14:30 | XMS_ITS | Encounter Summary ---
Author Organization [facility] Address [address] [facility] [address] [place] [address] Phone Care Team Providers Care Multi Township Assessor Name Role Phone Brianna Gonzalez MD Primary Care Provider [phone] Reason for Visit * Auth/Cert (Routine) Specialty Diagnoses / Procedures Referred By Emmanuel rivers Referred To Contact Referral ID Status Reason Start Date Expiration Date Visits Re quested Visits Authorized [id number] 1 1 Encounter Details Date Type Department Care Team ([facility] st Contact Info) Description 07/30/2025 2:30 PM EST Home Care Visit [facility] [address] [place] [address] Carol Hernandez, SACHA [address] [place] [address] [email or web address] Social History Tobacco Use Types [...] Time Taken Comments Blood Pressure 120/58 07/30/2025 2:02 PM EST Pulse 72 07/30/2025 2:02 PM EST Temperature 36.7 C (98 F) 07/30/2025 2:02 PM EST Respiratory Rate 18 07/30/2025 2:02 PM EST Oxygen Saturation 92% 07/30/2025 2:02 PM EST Inhaled Oxygen Concentration - - Weight - - Height - - Body Mass Index - - documented in this encounter Plan of Treatment Upcoming Encounters Date Type Department Care Team (Late st Contact Info) Description 08/01/2025 11:00 AM EST Appointment [facility] [address] [place] [phone] Domitila Cifuentes, PT [address] [place] [address] 08/01/2025 1:30 PM EST Appointment [facility] [address] [place] [phone] Chasity Molina, OT [address] [place] [address] 08/06/2025 Appointment [facility] [address] [place] [address] Osiris Cabrera, RN [address] [place] [address] 08/06/2025 1:45 AM EST Appointment [facility] [address] [place] [phone] Chasity Molina, OT [address] [place] [address] 08/09/2025 12:30 AM EST Appointment [facility] [address] [place] [address] Osiris Cabrera, RN [address] [place] [address] 08/13/2025 Appointment [facility] [address] [place] [address] Chasity Molina, OT [address] [place] [address] 08/13/2025 1:00 AM EST Appointment [facility] [address] [place] [address] Osiris Cabrera, RN [address] [place] [address] 08/15/2025 Appointment [facility] [address] [place] [address] Chasity Molina, OT [address] [place] [address] 08/20/2025 Appointment [facility] [address] [place] [address] Chasity Molina, OT [address] [place] [address] 08/20/2025 1:00 AM EST Appointment [facility] [address] [place] [address] Osiris Cabrera, RN [address] [place] [address] 08/22/2025 Appointment [facility] [address] [place] [address] Chasity Molina, OT [address] [place] [address] 08/27/2025 12:30 AM EST Appointment [facility] [address] [place] [address] Osiris Cabrera, SACHA [address] [place] [address] 09/03/2025 12:30 AM EST Appointment [facility] [address] [place] [address] Osiris Cabrera RN [address] [place] [address] 09/10/2025 12:30 AM EST Appointment [facility] [address] [place] [address] Osiris Cabrera RN [address] [place] [address] 09/17/2025 Appointment [facility] [address] [place] [phone] Osiris Cabrera RN [address] [place] [address] documented as of this encounter Visit Diagnoses Not on filedocumented in this encounter Home Health Visit - Care Plan Visit Details Visit Type -SN HOME VISIT Discipline -Long-Term Problems Problem Description Start Date Status Goals [...] scheduled/document ed in this visit HH - Falls - Risk of Disciplines: All Active Home Health Disciplines 07/24/2025 Active 1 goal linked to scheduled/document ed intervention 2 goal interventions scheduled/document ed in this visit HH - Standard of Care Disciplines: All Active Home Health Disciplines 07/24/2025 Active 1 goal linked to scheduled/document ed intervention 3 goal interventions scheduled/document ed in this visit [...] Respiratory Status - Impaired No HH - Knowledge and management of fall prevention measures. HH - Falls - Risk of No HH - Achieve care [...] often than daily. HH - Pain No Interventions Intervention Associated Problem/Goal Status Variance [...] medication reconciliation as indicated. Pharmacy information: Description: [facility] Problem:HH - Medication Management Goal:HH - Safe medication management, avoid unnecessary harm related to medication errors and/or interactions Performed HH - Focus of care, teaching completed and plan for next visit Problem:HH - Focus of Care and Teaching Goal:HH - Communication and collaboration to achieve patient goals Performed Primary Clinical Focus this Visit & Instruction Provided: Pvt caregiver and therapist present during visit. Patient sitting in easy chair, VSS, LS dim. suppl. O2 @ 4.5L via nc, no edema noted, appetite poor, denies constipation/diarrh ea, pain to R arm 5/10, skin intact. t/e O2 use and safety, med regime, safety measure, s /sx to report Instruction Provided to: caregiver Response to Instruction/Teachin g: Is partially able to teach back topics. Plan for Next Visit Specific Focus & Education Needed: as stated New Orders: has PCP visit 07/31 via zoom call, will review medications Updated Discharge Plan: HH - I/E management of care in [...] adequate oxygenation and ventilation Performed HH - I/E respiratory disease management Description: breathing techniques, energy conservation, positioning and self-monitoring Problem:HH - Respiratory Status - Impaired Goal:HH - Demonstrate/verbalize causes, impacts, and management of respiratory condition resulting in adequate oxygenation and ventilation Performed HH - Complete fall risk assessment scale Problem:HH - Falls - Risk of Goal:HH - Knowledge and management of fall prevention measures. Performed HH - I/E fall prevention measures Description: diagnosis/age related changes/prior history of falls: symptoms and side effects of illness/injury/history of falls placing patient at increased risk for falls. may include management of dizziness/orthostasis, environmental hazards: modification of enviro nment to include clear walkways, secure animals, and move frequently used items within reach, use of equipment, impaired functional mobility: supervision for mobility/activity, appropriate footwear and as indicated safe use of assistive device(s), incont inence: management of incontinence to include safe toileting, need for absorbent garments, address urgency/frequency , pain affecting level of function: impact of pain on an increased risk of falls and poly pharmacy: side effects of medications placing a patient at high risk for a fall Problem:HH - Falls - Risk of Goal:HH - Knowledge and management of fall prevention measures. Performed HH - Assess vital signs, pulse [...] home/community discharge from homecare Performed HH - Complete Paulo scale at SOC and weekly Problem:HH - Standard of Care Goal:HH - Achieve care management for a safe to home/community discharge from homecare Performed HH - Assess pain Problem:HH - Pain Goal:HH - Frequency of pain interfering with patient's activity or movement will improve with activity or movement by discharge. Performed HH - I/E pain management Problem:HH - Pain Goal:HH - Frequency of pain interfering with patient's activity or movement will improve with activity or movement by discharge. Performed documented in this encounter Care Teams Multi Township Assessor Relationship Specialty Start Date End Date Brianna Gonzalez MD [facility] [place] [address] PCP - General Internal Medicine 07/11/25 documented as of this encounter Additional Source Comments The information contained in this document represents components of the legal health record. It is not the complete legal health record.[facility]
--- OUTSIDE RECORDS SUMMARY | 2025-08-01 09:06 | XMS_ITS | Encounter Summary ---
Author Organization [facility] Address [address] [facility] [address] [place] [address] Phone Care Team Providers Care Secondary Market Manager Name Role Phone Brianna Gonzalez MD Primary Care Provider [phone] Encounter Details Date Type Department Care Team (Late Contact Info) Description 07/16/2025 Lab Requisition [facility] [address] [place] [address] Shana Chand MD [address] [place] [address] [phone] [email or web address] Unspecified fracture of upper end of right humerus, subsequent encounter for fracture with routine healing; Other seizures; Essential (primary) hypertension Social History Tobacco Use Types Packs/Day Years Used Date Smoking Tobacco: Never Assessed Education Answer Date Recorded Are you interested [...] as of this encounter Plan of Treatment Upcoming Encounters Date Type Department Care Team (Late Contact Info) Description 08/01/2025 11:00 AM EST Appointment [facility] [address] [place] [phone] Domitila Cifuentes, PT [address] [place] [address] 08/01/2025 1:30 PM EST Appointment [facility] [address] [place] [address] Chasity Molina, OT [address] [place] [address] 08/06/2025 Appointment [facility] [address] [place] [address] Osiris Cabrera, RN [address] [place] [address] 08/06/2025 1:45 AM EST Appointment [facility] [address] [place] [address] Chasity Molina, OT [address] [place] [address] 08/09/2025 12:30 AM EST Appointment [facility] [address] [place] [address] Osiris Cabrera, RN [address] [place] [address] 08/13/2025 Appointment [facility] [address] [place] [address] Chasity Molina, OT [address] [place] [address] 08/13/2025 1:00 AM EST Appointment [facility] [address] [place] [address] Osiris Cabrera, RN [address] [place] [address] 08/15/2025 Appointment [facility] [address] [place] [address] Chasity Molina, OT [address] [place] [address] 08/20/2025 Appointment [facility] [address] [place] [address] Chasity Molina, OT [address] [place] [address] 08/20/2025 1:00 AM EST Appointment [facility] [address] [place] [address] Osiris Cabrera RN [address] [place] [address] 08/22/2025 Appointment [facility] [address] [place] [phone] Chasity Molina, OT [address] [place] [address] 08/27/2025 12:30 AM EST Appointment [facility] [address] [place] [address] Osiris Cabrera RN [address] [place] [address] 09/03/2025 12:30 AM EST Appointment [facility] [address] [place] [address] Osiris Cabrera, SACHA [address] [place] [address] 09/10/2025 12:30 AM EST Appointment [facility] [address] [place] [phone] Osiris Cabrera RN [address] [place] [address] 09/17/2025 Appointment [facility] [address] [place] [address] Osiris Cabrera RN [address] [place] [address] documented as of this encounter Procedures Procedure Name Priority Date/Time Associated Diagnosis Comments CBC Today 07/16/2025 7:25 AM EST Unspecified fracture of upper end of right humerus, subsequent encounter for fracture with routine healing Other seizures Essential (primary) hypertension BASIC METABOLIC PANEL (BMP) Today 07/16/2025 7:25 AM EST Unspecified fracture of upper end of right humerus, subsequent encounter for fracture with routine healing Other seizures Essential (primary) hypertension documented in this encounter Results * (ABNORMAL) Basic Metabolic Panel (BMP) (07/16/2025 7:25 AM EST) Sodium 133(L) 136 - 145 mmol/L 07/16/2025 12:22 PM [facility] Potassium 4.6 3.4 - 5.1 mmol/L 07/16/2025 12:22 PM [facility] Comment:NOTE: Specimen hemol yzed. Results may be falsely increased. Chloride 92(L) 98 - 107 mmol/L 07/16/2025 12:22 PM [facility] CO2 30 20 - 31 mmol/L 07/16/2025 12:22 PM [facility] Anion Gap 11 3 - 17 mmol/L 07/16/2025 12:22 PM [facility] BUN 12 6 - 23 mg/dL 07/16/2025 12:22 PM [facility] Creatinine 0.30(L) 0.50 - 1.00 mg/dL 07/16/2025 12:22 PM [facility] eGFR 121 >59 mL/min/1.7 3m2 07/16/2025 12:22 PM [facility] Comment:Estimated glomerular filtration rate calculated using the CKD-EPI refit equation. Glucose 83 70 - 99 mg/dL 07/16/2025 12:22 PM [facility] Calcium 8.9 8.5 - 10.5 mg/dL 07/16/2025 12:22 PM [facility] Blood (Blood) 07/16/2025 7:2 5 AM EST 07/16/2025 11:04 AM EST us Shana Chand MD LAB BLOOD BKR ORDERABLES Final Result [facility] [address] [place] [address] * (ABNORMAL) CBC (07/16/2025 7:25 AM EST) WBC 10.30 4.00 - 11.00 K/uL 07/16/2025 11:44 AM [facility] RBC 2.75(L) 4.00 - 5.20 M/uL 07/16/2025 11:44 AM [facility] Hemoglobin 8.2(L) 12.0 - 16.0 g/dL 07/16/2025 11:44 AM [facility] Hematocrit 27.0(L) 36.0 - 46.0 % 07/16/2025 11:44 AM [facility] MCV 98.2 80.0 - 100.0 fL 07/16/2025 11:44 AM [facility] MCH 29.8 27.0 - 31.0 pg 07/16/2025 11:44 AM [facility] MCHC 30.4(L) 32.0 - 36.0 g/dL 07/16/2025 11:44 AM [facility] PLT 318 150 - 450 K/uL 07/16/2025 11:44 AM [facility] MPV 9.6 8.4 - 12.0 fL 07/16/2025 11:44 AM [facility] RDW-CV 12.8 11.5 - 14.5 % 07/16/2025 11:44 AM [facility] Absolute NRBC 0.00 <=0.00 K cells/uL 07/16/2025 11:44 AM EST [facility] NRBC 0.0 <=0.0 /100 WBCs 07/16/2025 11:44 AM EST [facility] Blood (Blood) 07/16/2025 7:2 5 AM EST 07/16/2025 11:04 AM EST us Shana Chand MD LAB BLOOD BKR ORDERABLES Final Result Performing Organization Address City/State/[facility] Co de Phone Number [facility] [address] [place] [address] documented in this encounter Visit Diagnoses Diagnosis Unspecified fracture of upper end of right humerus, subsequent encounter for fracture with routine healing Other seizures Essential (primary) hypertension Unspecified essential hypertension documented in this encounter Care Teams Secondary Market Manager Relationship Specialty Start Date End Date Brianna Gonzalez MD [address] [place] [address] [place] [address] PCP - General Internal Medicine 07/11/25 documented as of this encounter Additional Source Comments The information contained in this document represents components of the legal health record. It is not the complete legal health record.[facility]
--- OUTSIDE RECORDS SUMMARY | 2025-08-01 09:06 | XMS_ITS | Encounter Summary ---
Author Organization [facility] Address [address] [facility] [address] [place] [address] Phone Care Team Providers Care Medical Imaging Technician Name Role Phone Brianna Gonzalez MD Primary Care Provider [phone] Reason for Visit * Auth/Cert (Routine) Specialty Diagnoses / Procedures Referred By Emmanuel rivers Referred To Contact Referral ID Status Reason Start Date Expiration Date Visits Re quested Visits Authorized [id number] 1 1 Encounter Details Date Type Department Care Team (Late st Contact Info) Description 07/31/2025 Home Care Visit [facility] [address] [place] [address] Domitila Cifuentes, PT [address] [place] [address] [email or web address] TELEPHONE ENCOUNTER Social History Tobacco Use Types Packs/Day Years [...] Appointment [facility] [address] [place] [address] Domitila Cifuentes, PT [address] [place] [address] 08/01/2025 1:30 PM EST Appointment [facility] [address] [place] [address] Chasity Molina, OT [address] [place] [address] 08/06/2025 Appointment [facility] [address] [place] [phone] Osiris Cabrera, SACHA [address] [place] [address] 08/06/2025 1:45 AM EST Appointment [facility] [address] [place] [address] Chasity Molina, OT [address] [place] [address] 08/09/2025 12:30 AM EST Appointment [facility] [address] [place] [address] Osiris Cabrera, RN [address] [place] [address] 08/13/2025 Appointment [facility] [address] [place] [address] Chasity Molina, OT [address] [place] [address] 08/13/2025 1:00 AM EST Appointment [facility] [address] [place] [address] Osiris Cabrera, SACHA [address] [place] [address] 08/15/2025 Appointment [facility] [address] [place] [address] Chasity Molina, OT [address] [place] [address] 08/20/2025 Appointment [facility] [address] [place] [phone] Chasity Molina, OT [address] [place] [address] 08/20/2025 1:00 AM EST Appointment [facility] [address] [place] [address] Osiris Cabrera RN [address] [place] [address] 08/22/2025 Appointment [facility] [address] [place] [phone] Chasity Molina, OT [address] [place] [address] 08/27/2025 12:30 AM EST Appointment [facility] [address] [place] [address] Osiris Cabrera, SACHA [address] [place] [address] 09/03/2025 12:30 AM EST Appointment [facility] [address] [place] [phone] Osiris Cabrera, SACHA [address] [place] [address] 09/10/2025 12:30 AM EST Appointment [facility] [address] [place] [address] Osiris Cabrera RN [address] [place] [address] 09/17/2025 Appointment [facility] [address] [place] [address] Osiris Cabrera RN [address] [place] [address] [email or web address] documented as of this encounter Visit Diagnoses Not on filedocumented in this encounter Care Teams Medical Imaging Technician Relationship Specialty Start Date End Date Brianna Gonzalez MD [address] [facility] [place] [address] PCP - General Internal Medicine 07/11/25 documented as of this encounter Additional Source Comments The information contained in this document represents components of the legal health record. It is not the complete legal health record.[facility]
--- NOTE | 2025-08-01 10:31 | A.OFFPC_ITS ---
Intake Visit Reasons: HDF Allergies crab Allergy (Unknown, Verified 07/16/25 16:05) Hives penicillin V Allergy (Unknown, Verified 07/16/25 16:05) hives Penicillins (PENICILLINS) Allergy (Unknown, Verified 07/16/25 16:05) hives SEASONAL ALLERGIES Allergy (Mild, Uncoded 07/16/25 16:05) RUNNY NOSE Medication List - Last Reconciled 08/01/25 by Brianna Gonzalez MD albuterol sulfate 90 mcg/actuation 2 puffs PO Q6H PRN 30 days albuterol sulfate 2.5 mg inhalation Q4-6H PRN amlodipine 5 mg PO DAILY 90 days aspirin (Adult Low Dose Aspirin) 81 mg PO DAILY atorvastatin 40 mg PO BEDTIME cephalexin 500 mg PO Q12H 4 days [Diapers 3 times a day] docusate sodium 100 mg PO DAILY PRN famotidine 20 mg PO DAILY ferrous sulfate 324 mg PO BID 90 days oarfqawgbhz-ihgyqxldu-cmkgnbnp 100-62.5-25 mcg (Trelegy Ellipta) 1 inh inhalation DAILY folic acid 1 mg PO DAILY gabapentin 300 mg PO TID 90 days ipratropium-albuterol 0.5 mg-3 mg(2.5 mg base)/3 mL 3 mL inhalation QID PRN levetiracetam 500 mg PO BID 90 days metoprolol tartrate 25 mg PO BID 90 days mirtazapine 30 mg PO BEDTIME 90 days omeprazole 20 mg PO DAILY@0630 [orthotic consult Orthotic consult to right hand as directed] [Orthotic consult orthotic consult to right foot as directed.] oxycodone 5 mg PO Q8H PRN 5 days oxycodone 5 mg PO TID PRN polyethylene glycol 3350 17 grams PO DAILY PRN prednisone 40 mg (2 x 20 mg) PO DAILY 7 days sertraline 50 mg PO DAILY Tobacco use date assessed: 10/18/24 Dental Screening Dental Screen Date: 10/18/24 HPI HPI Comments History of Present Illness Details History of Present Illness The patient is a 59 year old individual presenting for a follow-up visit for coordination of care after a recent hospitalization. Right Arm Fractures: - The patient had a fall 2-3 weeks prior to a recent hospitalization and complained of right upper extremity pain. - The patient was found to have signific ant bruising on the right arm, a right humeral neck fracture, and a possible right styloid fracture. - During hospitalization, orthopedics re commended a volar splint, sling, ndk-pczqsb-zujddvl status for the right upper extremity, and gentle range of motion of the hand. - The patient reports an inability to mo ve the fingers, which has been present for months. - An orthopedic appointment scheduled bu t was canceled due to severe nausea and was not rescheduled. - The patient has an orthotic for the ar m, but therapists are cautious about its use until the patient is seen by an warhead maintenance specialist. COPD with Acute Exacerbation and Sepsis due to UTI: - The patient was recently hospitalized from June 21, 2025, to June 26, 2025, after presenting to the emergency room with shortness of breath. - The patient was diagnosed with a COPD exacerbation and an acute complicated UTI with sepsis. - The UTI was due to E. coli sensitive t o cephalosporin. - Treatment included solometrol and anti biotics. for COPD exacerbation - At discharge, the patient was prescrib ed cephalexin 500 mg for 4 more days and prednisone 20 mg for 7 days. - The patient has a history of chronic r espiratory failure with hypercapnia requiring 4 liters of oxygen at home. Anemia: - The patient has a history of anemia. - The last hemoglobin check on June 13 was 9.4 g/dL. - The anemia is thought to be iron defic iency, although iron levels were not checked during the last blood work. - The patient is taking an iron suppleme nt (ferrous sulfate) daily on an empty stomach. Pulmonary and Vascular Concerns: - The patient has a growing left lower l obe density identified on imaging. - A lung biopsy was performed on June 23, 2025, she has apt coming up with Dr Gonzalez to discuss that - The patient has a chronically occluded left common carotid artery and was recommended to see a vascular surgeon. - The patient has scheduled follow-up ap pointments with neurologist on August 21. Health Maintenance: - The patient has not seen a dentist in a long time. - The patient has not been to an ophthal mologist in 7-8 years and was previously told about having cataracts. - The patient is due for an influenza an d COVID-19 vaccine. - The patient is up to date on the pneum onia vaccine. 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 - Hypertension - Hyperlipidemia - Anxiety - Insomnia - Constipation - Cataracts, diagnosed 7-8 years ago - Hospitalization in June 2025 for sh ortness of breath, COPD exacerbation, UTI with sepsis, and evaluation of fractures Surgical History: - Lung biopsy on June 23, 2025 Medications: - Keppra for seizures - Gabapentin for seizures - Amlodipine 5 mg for blood pressure - Atorvastatin 40 mg for hyperlipidemia - Mirtazapine 30 mg for sleep - Metoprolol 25 mg for blood pressure - DuoNeb for COPD - Ipratropium (Uptrapped) treatments - Ferrous sulfate (iron supplement) for anemia - Omeprazole for GERD - MiraLAX for constipation - Sertraline 50 mg for anxiety - Morphine sulfate solution 2.5 mg every 4 hours as needed for respiratory distress - Oxycodone for pain Social History: - The patient lives in a wheelchair-acce ssible apartment. - The patient has a friend who is active ly involved in care and communication. - Functional Status: The patient uses a cane or walker and was back to baseline mobility at the time of hospital discharge. - Home Care: The patient receives servic es from a visiting nurse, occupational therapy, and physical therapy, which has been helpful for mobility. - Transportation: The patient requires P T-1 wheelchair-accessible transportation for medical appointments due to difficulty getting into a standard vehicle. Diagnostic Results: - Lung Biopsy (06/23/2025): . - Imaging: Found to have right proximal humerus and right radial styloid fractures. in hospital recently, need Ortho visit - Imaging: Revealed a growing left lower lobe lung density. - Imaging: Revealed a chronically occlud ed left common carotid artery. - Labs (07/05): Hemoglobin was 9.4 g/dL. - Urine Culture: Positive for E. coli, s ensitive to cephalosporins. [facility] Medical History Seizure (~11/2021) History of multiple cerebrovascular accidents (CVAs) Hemiparesis affecting right side as late effect of cerebrovascular accident Aphasia History of non-ST elevation myocardial infarction (NSTEMI) (~11/2021) History of acute respiratory distress syndrome (ARDS) (~08/2021) Coronary artery disease Takotsubo cardiomyopathy COPD (chronic obstructive pulmonary disease) Respiratory failure with hypoxia Oxygen dependent Personal history of nicotine dependence Hemoptysis Closed subcapital fracture of femur Cocaine abuse Hypertensive emergency Normocytic anemia History of drug abuse Cocaine abuse Major depression, recurrent Acute CHF (congestive heart failure) Hypercapnic respiratory failure, chronic Asymptomatic carotid artery stenosis with infarction Chronic GERD Environmental allergies Anxiety, generalized Lipid disorder Asthma, moderate Surgical History History of left-sided carotid endarterectomy (~09/2012) History of tonsillectomy and adenoidectomy Family History Father Substance abuse Mother Brain cancer Maternal Grandfather History of heart attack Maternal Grandmother History of heart attack Paternal Grandfather No problems noted. Paternal Grandmother No problems noted. Brother No problems noted. Brother No problems noted. Son No problems noted. Daughter No problems noted. Other Mental health disorder Social History Household Members: None Household Members Other:: daughter Housing: Assisted Living Facility Do you presently have visiting nurse or other home services: No Alcohol intake: former Patient Tobacco Use Status: Former Tobacco user Tobacco use type: Cigarette Cigarettes Per Day: 2 Years Smoked: COUPLE YEAR AGO PER PT Packs per year/per ci.00 e-Cigarette/Vaping Use: Never Used Second Hand Smoke Exposure: No Advance Directives Date on File: 11/25/21 service: No Current occupational status: disabled Cognitive needs: No Hearing needs: No Vision needs: No Questionnaire Thrive Questionnaire Date Thrive assessed: 04/24/25 I am a: Parent/Caregiver What is your living situation today?: I have a steady place to live Within the past 12 months, did the food you bought not last and you didn't have the money to get more?: Never true Within the past 12 months, did you worry whether your food would run out before you got money to buy more?: Never true Do you have trouble paying for medicines?: No Do you have trouble getting transportation to medical appointments?: Yes Do you have trouble paying your heating and electricity bill?: No Do you have trouble taking care of your child, family member or friend?: No Do you have trouble with day-to-day activities such as bathing, preparing meals, shopping, managing finances, etc.?: Yes Are you currently unemployed and looking for a job?: No Are you interested in more education?: No Please select the resources that you would like help with: Transportation Currently or been in a relationship where the following occur: No concerns reported THRIVE Score: 1 SAGAR-7 AMB Questionnaire SAGAR-7 Date SAGAR - 7 assessed: 10/20/22 Source: Developed by Drs. Hemant Eller, Sue Christensen, Jamey Drummond and colleagues, with an educational mario alberto from [employer]. Review of Systems Narrative Review of Systems - General: Reports not feeling well and having difficulties. - Musculoskeletal: Reports right upper extremity pain following a fall. - Eyes: Reports history of cataracts. having blurring - General: No fever no chills - Neurological: No headaches - Ear nose throat: No sore throat no hearing difficulty no ear pain - Cardiovascular: No syncope, no chest pain, no palpitations - Genitourinary: no blood in urine Physical exam (Primary Care) Tobacco/Smoking Status: Tobacco use Status Tobacco use date assessed 10/18/24 08/01/25 10:32 Patient Tobacco Use Status Former Tobacco user 08/01/25 10:32 Tobacco use type Cigarette 08/01/25 10:32 e-Cigarette/Vaping Use Never Used 08/01/25 10:32 Thrive Assessment: Date of Thrive Assessment Date Thrive assessed 04/24/25 08/01/25 10:32 Currently or been in a relationship where the following occur: No concerns reported Narrative Telehealth Telehealth Telehealth Platform: [facility] Location of provider rendering services: practice address Location of patient: address on file Patient Identification confirmed using: Name, : Yes Telehealth method: video Patient verbally consented to treatment: Yes Patient verbally consented to billing insurance company: Yes Patient informed of any privacy concerns related to visit: Yes Minutes spent on Phone/Video with Pt.: 60 Coding Level of Care Code Tele Est Pt Level 5 (65205) Diagnoses Lipid disorder E78.9 Closed fracture of neck of right femur with routine healing, subsequent encounter S72.001D Encounter type: subsequent encounter Fracture healing: with routine healing Fracture type: closed Occlusion of left carotid artery I65.22 Microcytic anemia D50.9 Chronic GERD K21.9 Panlobular emphysema J43.1 COPD type: emphysema Emphysema type: panlobular Moderate malnutrition E44.0 Blurring of vision H53.8 Takotsubo cardiomyopathy I51.81 Oxygen dependent Z99.81 Recurrent major depressive disorder, in partial remission F33.41 Active/Remission status: in partial remission Breakthrough seizure G40.919 Time Spent (min) 60 Comment chart review / labs / face to face with patient and point of care specialist / coordination of care Assessment & Plan Assessment & Plan (1) Lipid disorder: Code(s): E78.9 - Disorder of lipoprotein metabolism, unspecified Category: Medical (2) Fracture of femoral neck, right: Code(s): S72.001A - Fracture of unspecified part of neck of right femur, initial encounter for closed fracture Category: Medical Qualifiers: Encounter type: subsequent encounter Fracture healing: with routine healing Fracture type: closed Qualified Code(s): S72.001D - Fracture of unspecified part of neck of right femur, subsequent encounter for closed fracture with routine healing (3) Occlusion of left carotid artery: Code(s): I65.22 - Occlusion and stenosis of left carotid artery Category: Medical (4) Microcytic anemia: Code(s): D50.9 - Iron deficiency anemia, unspecified Category: Medical (5) Chronic GERD: Code(s): K21.9 - Gastro-esophageal reflux disease without esophagitis Category: Medical (6) COPD (chronic obstructive pulmonary disease): Comment: She does have chronic obstructive pulmonary disease secondary to her long-time smoking. It seems to be fairly stable at this time. Code(s): J44.9 - Chronic obstructive pulmonary disease, unspecified Category: Medical Qualifiers: COPD type: emphysema Emphysema type: panlobular Qualified Code(s): J43.1 - Panlobular emphysema (7) Moderate malnutrition: Code(s): E44.0 - Moderate protein-calorie malnutrition Category: Medical (8) Blurring of vision: Code(s): H53.8 - Other visual disturbances Category: Medical (9) Takotsubo cardiomyopathy: Code(s): I51.81 - Takotsubo syndrome Category: Medical (10) Oxygen dependent: Code(s): Z99.81 - Dependence on supplemental oxygen Category: Medical (11) Major depression, recurrent: Code(s): F33.9 - Major depressive disorder, recurrent, unspecified Category: Medical Qualifiers: Active/Remission status: in partial remission Qualified Code(s): F33.41 - Major depressive disorder, recurrent, in partial remission (12) Breakthrough seizure: Code(s): G40.919 - Epilepsy, unspecified, intractable, without status epilepticus Category: Medical Plan Problem List - Right humeral neck fracture and right radial styloid fracture - Chronic Obstructive Pulmonary Disease (COPD) with acute exacerbation - Anemia - Occlusion of left common carotid artery - Seizure disorder - Left lower lobe pulmonary density - Cataracts - Chronic respiratory failure with hypercapnia - History of stroke with right-sided deficit - Takotsubo cardiomyopathy - Gastroesophageal reflux disease (GERD) - Hypertension - Hyperlipidemia - Anxiety - Preventative Care: Dental care - Preventative Care: Immunizations (influenza, COVID-19) Plan - Referrals: Will place referrals for the patient to be seen by Orthopedics at [facility] for right arm fractures and Vascular surgery for the occluded left common carotid artery. - Transportation: Will initiate the process to set up PT-1 transportation for medical appointments. - Existing Appointments: The patient is to continue with scheduled appointments with Pulmonary on August 14 and Neurology on August 21. - Anemia Management: The patient should continue taking the daily iron (ferrous sulfate) supplement on an empty stomach. - Lab Monitoring: Plan to repeat blood tests, including iron levels, in approximately three months. mean while continue Iron supplement - Health Maintenance: Will book an ophthalmology appointment for cataract evaluation. - Advised caregiver to contact [facility] to obtain a list of available dentists for the patient. - Immunizations: Advised the patient to request a flu vaccine at the upcoming pulmonary appointment. - A COVID-19 vaccine will need to be obtained at a pharmacy, and it was recommended to call ahead for an appointment. - Pain Management: Will not prescribe morphine or oxycodone due to high risk associated with severe COPD; management is deferred to orthopedics and pulmonology specialists. - Follow-up: Plan to follow up via phone in 2-3 months to check on progress. Orders: Orders Complete Blood Count Auto Diff Today D50.9 - Iron deficiency anemia, unspecified, E44.0 - Moderate protein-calorie malnutrition, E78.9 - Disorder of lipoprotein metabolism, unspecified, F33.41 - Major depressive disorder, recurrent, in partial remission, G40.919 - Epilepsy, unspecified, intractable, without status epilepticus, I51.81 - Takotsubo syndrome, J43.1 - Panlobular emphysema, K21.9 - Gastro-esophageal reflux disease without esophagitis, S72.001A - Fracture of unspecified part of neck of right femur, initial encounter for closed fracture, Z99.81 - Dependence on supplemental oxygen Comprehensive Met. Panel Today D50.9 - Iron deficiency anemia, unspecified, E44.0 - Moderate protein-calorie malnutrition, E78.9 - Disorder of lipoprotein metabolism, unspecified, F33.41 - Major depressive disorder, recurrent, in partial remission, G40.919 - Epilepsy, unspecified, intractable, without status epilepticus, I51.81 - Takotsubo syndrome, J43.1 - Panlobular emphysema, K21.9 - Gastro-esophageal reflux disease without esophagitis, S72.001A - Fracture of unspecified part of neck of right femur, initial encounter for closed fracture, Z99.81 - Dependence on supplemental oxygen LDL Cholesterol Direct Today D50.9 - Iron deficiency anemia, unspecified, E44.0 - Moderate protein-calorie malnutrition, E78.9 - Disorder of lipoprotein metabolism, unspecified, F33.41 - Major depressive disorder, recurrent, in partial remission, G40.919 - Epilepsy, unspecified, intractable, without status epilepticus, I51.81 - Takotsubo syndrome, J43.1 - Panlobular emphysema, K21.9 - Gastro-esophageal reflux disease without esophagitis, S72.001A - Fracture of unspecified part of neck of right femur, initial encounter for closed fracture, Z99.81 - Dependence on supplemental oxygen Vitamin B12 Today D50.9 - Iron deficiency anemia, unspecified, E44.0 - Moderate protein-calorie malnutrition, E78.9 - Disorder of lipoprotein metabolism, unspecified, F33.41 - Major depressive disorder, recurrent, in partial remission, G40.919 - Epilepsy, unspecified, intractable, without status epilepticus, I51.81 - Takotsubo syndrome, J43.1 - Panlobular emphysema, K21.9 - Gastro-esophageal reflux disease without esophagitis, S72.001A - Fracture of unspecified part of neck of right femur, initial encounter for closed fracture, Z99.81 - Dependence on supplemental oxygen Magnesium Today D50.9 - Iron deficiency anemia, unspecified, E44.0 - Moderate protein-calorie malnutrition, E78.9 - Disorder of lipoprotein metabolism, unspecified, F33.41 - Major depressive disorder, recurrent, in partial remission, G40.919 - Epilepsy, unspecified, intractable, without status epilepticus, I51.81 - Takotsubo syndrome, J43.1 - Panlobular emphysema, K21.9 - Gastro-esophageal reflux disease without esophagitis, S72.001A - Fracture of unspecified part of neck of right femur, initial encounter for closed fracture, Z99.81 - Dependence on supplemental oxygen Ferritin Today D50.9 - Iron deficiency anemia, unspecified, E44.0 - Moderate protein-calorie malnutrition, E78.9 - Disorder of lipoprotein metabolism, unspecified, F33.41 - Major depressive disorder, recurrent, in partial remission, G40.919 - Epilepsy, unspecified, intractable, without status epilepticus, I51.81 - Takotsubo syndrome, J43.1 - Panlobular emphysema, K21.9 - Gastro-esophageal reflux disease without esophagitis, S72.001A - Fracture of unspecified part of neck of right femur, initial encounter for closed fracture, Z99.81 - Dependence on supplemental oxygen TSH reflex Free T4 Today D50.9 - Iron deficiency anemia, unspecified, E44.0 - Moderate protein-calorie malnutrition, E78.9 - Disorder of lipoprotein metabolism, unspecified, F33.41 - Major depressive disorder, recurrent, in partial remission, G40.919 - Epilepsy, unspecified, intractable, without status epilepticus, I51.81 - Takotsubo syndrome, J43.1 - Panlobular emphysema, K21.9 - Gastro-esophageal reflux disease without esophagitis, S72.001A - Fracture of unspecified part of neck of right femur, initial encounter for closed fracture, Z99.81 - Dependence on supplemental oxygen Vitamin D 25-OH (D2 and D3) Today D50.9 - Iron deficiency anemia, unspecified, E44.0 - Moderate protein-calorie malnutrition, E78.9 - Disorder of lipoprotein metabolism, unspecified, F33.41 - Major depressive disorder, recurrent, in partial remission, G40.919 - Epilepsy, unspecified, intractable, without status epilepticus, I51.81 - Takotsubo syndrome, J43.1 - Panlobular emphysema, K21.9 - Gastro-esophageal reflux disease without esophagitis, S72.001A - Fracture of unspecified part of neck of right femur, initial encounter for closed fracture, Z99.81 - Dependence on supplemental oxygen Referrals Orthopedics Referral S72.001A - Fracture of unspecified part of neck of right femur, initial encounter for closed fracture Ophthalmology Referral H53.8 - Other visual disturbances
== END 2025-08-01 13:54 | disposition home or self-care (01) ==
LOC: HO.HMCC 08:26
PROVIDERS: PCP Internal Medicine; Visit Provider Internal Medicine
DX: E78.9 Disorder of lipoprotein metabolism, unspecified (principal); J43.1 Panlobular emphysema; G40.919 Epilepsy, unspecified, intractable, without status epilepticus; S72.001D Fracture of unspecified part of neck of right femur, subsequent encounter for closed fracture with routine healing; I65.22 Occlusion and stenosis of left carotid artery; D50.9 Iron deficiency anemia, unspecified; K21.9 Gastro-esophageal reflux disease without esophagitis; E44.0 Moderate protein-calorie malnutrition; H53.8 Other visual disturbances; I51.81 Takotsubo syndrome; Z99.81 Dependence on supplemental oxygen; F33.41 Major depressive disorder, recurrent, in partial remission

== ENCOUNTER 2025-08-21 11:15 | Outpatient (AMB) | payer OTHER, SELFPAY ==
--- OUTSIDE RECORDS SUMMARY | 2025-08-16 12:30 | XMS_ITS | Encounter Summary ---
Author Organization [facility] Address [address] [place] [address] Phone Care Team Providers Care Ladle Pourer Name Role Phone Brianna Gonzalez MD Primary Care Provider [phone] Reason for Visit * Auth/Cert (Routine) Specialty Diagnoses / Procedures Referred By Emmanuel rivers Referred To Contact Referral ID Status Reason Start Date Expiration Date Visits Re quested Visits Authorized [id number] 1 1 Encounter Details Date Type Department Care Team (Late st Contact Info) Description 08/16/2025 12:30 PM EST Home Care Visit [facility] [address] [place], [place] [phone] Domitila Cifuentes, PT [address] [place] [address] PT HOME VISIT Social History Tobacco Use Types [...] Care Team (Late st Contact Info) Description 08/22/2025 1:45 PM EST Appointment [facility] [address] [place] [phone] Chasity Molina, OT [address] [place] [address] 08/23/2025 12:00 PM EST Appointment [facility] [address] [place] [phone] Domitila Cifuentes, PT [address] [place] [address] 08/27/2025 12:30 AM EST Appointment [facility] [address] [place] [phone] Osiris Cabrera, SACHA [address] [place] [address] [email or web address] 09/03/2025 12:30 AM EST Appointment [facility] [address] [place] [phone] Osiris Cabrera, SACHA [address] [place] [address] [email or web address] 09/10/2025 12:30 AM EST Appointment [facility] [address] [place] [phone] Osiris Cabrera, SACHA [address] [place] [address] [email or web address] 09/17/2025 Appointment [facility] [address] [place] [phone] Osiris Cabrera, SACHA [address] [place] [address] [email or web address] documented as of this encounter Visit Diagnoses Not on filedocumented in this encounter Home Health Visit - Care Plan Visit Details Visit Type -PT HOME VISIT Discipline -Physical Therapy Problems Problem Description Start Date Status Goals Interve ntions HH - Medication Management Disciplines: All Active Home Health Disciplines 07/24/2025 Active 1 goal linked to scheduled/document ed intervention 2 goal interventions scheduled/document ed in this visit HH - Health Maintenance Disciplines: All Active Home Health Disciplines 07/24/2025 Active 1 goal linked to scheduled/document ed intervention HH - Focus of Care and Teaching [...] scheduled/document ed in this visit HH - Mobility and Activity Tolerance - Impaired Disciplines: Physical Therapy 08/01/2025 Active 1 goal linked to scheduled/document ed intervention 2 goal interventions scheduled/document ed in this visit Goals Goal Associated Problem Outcome Goal Met? Visit Notes HH - Safe medication management, avoid unnecessary harm related to medication errors and/or interactions HH - Medication Management No HH - Patient preferences will be utilized to achieve optimal wellness and home safety. HH - Health Maintenance Progressing No HH - Communication and collaboration to achieve patient goals HH - Focus of Care and Teaching Progressing No HH - Knowledge of options for managing care in the event of an emergency related situation. HH - Emergency Planning - Knowledge of No HH - Knowledge and management of fall prevention measures. HH - Falls - Risk of Progressing No HH - Achieve care management for a safe to home/community discharge from homecare HH - Standard of Care Progressing No HH - Frequency of pain interfering with patient's activity or movement will improve with activity or movement by discharge. Description: Pain will be managed over the course of care. Patient's acceptable level of pain is 2 - less often than daily. HH - Pain Progressing No HH - Demonstrate/verbalize management of orthopedic aftercare HH - Orthopedic Aftercare Progressing No HH - Demonstrate maximum mobility and activity level for safe function Description: PT GOALS: 1. Patient/caregiver will demonstrate safe transfers with ue support without verbal cues from all surface heights, so pt can safely perform functional mobility from all home surfaces by 08/31/25 2. Patient will improve standing dynamic to goo d- demonstrating improved ambulation safety with gait >100' and reduced fall risk allowing pt to improve functional mobility by 08/31/25 3. Patient will demonstrate improved ambulation safety with gait distances >100 ft to navigate home and short commun ity distances, while demonstrating fall risk measures allowing pt to improve functional mobility by 08/31/25 4. Patient will achieve and demonstrate 1/2 increase in BLE strength to within 4/5 to 4+/5 range allowing patient to improve functional mobility by 08/31/25 5. Patient will be able to ascend/descend curbing and steps within the home with close sup to cg assist allowing patient ability to attend community appointments with decreased fall risk by 08/31/25 6. Patient/caregiver will demonstrate un derstanding of therapy instructions/recommendatio ns by completion of task with 90% accuracy allowing pt to increase strength and balance by 08/31/25 7. Patient/caregiver will demonstrate understanding of safe use of all equipment and all safety recommen dations allowing pt to remain safely in home by 08/31/25 HH - Mobility and Activity Tolerance - Impaired No Interventions Intervention Associated Problem/Goal Status Variance [...] medication reconciliation as indicated. Pharmacy information: Description: [facility] Problem:HH - Medication Management Goal:HH - Safe medication management, avoid unnecessary harm related to medication errors and/or interactions Performed HH - Focus of care, teaching completed and plan for next visit Problem:HH - Focus of Care and Teaching Goal:HH - Communication and collaboration to achieve patient goals Performed Primary Clinical Focus this Visit & Instruction Provided: balance training, bed mobility training, breathing exercises, durable medical equipment training, gait/stair training, therapeutic exercise/home exercise program, transfer training, including bath room transfers and wheelchair mobility training Instruction Provided to: patient and caregiver Response to Instruction/Teaching : Is partially able to teach back topics as evidenced by verbal understanding Plan for Next Visit Specific Focus & Educat ion Needed: on above interventions New Orders: n/a Updated Discharge Plan: dc to home program Pt resting in recliner on arrival. 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 Reports that respiratory issues that were present last week abrilin g visit was due to Tra changing the water in the humidifier on concentrator I didn't attach it properly and no oxygen was going through the tubing Reports once noticed and resolved patient's dyspnea returned to baseline level and hasn't been problemat ic since then. Also reports that Pulmonology appt with Dr Gonzalez needed to be rescheduled due to lack of transportation. Issues with resolving correct address for PT1 ride- appt rescheduled for 09/02. Next medical appt is 08/27 with Orthopedics. Pt off ering no specific complaints. Agreeable to trialing ther ex program. Pt completed seated ankle pumps, quad sets, glut sets, LAQ, seated marching, abduction x 10 reps with intermittent rest breaks OTB exercises with therapist assist hip abduction, hip f lexion, knee flexion, knee extension x 10 reps. Transfers with set up assist. Gt training with hemiwalker chair<>bathroom level with set up assist. Vitals remained stable throughout. O2 sats on 4.0L at 95-97% Pt and Tra wanting to pursue obtaining he r own manual wc with O2 tank jefferson for community level appt. Current wc is donated. Will contact vendors to determine sourcing for wc and will f/u with PCP for referral for DME. HH - I/E management of care in an urgent or emergency (ER) situation: When to call your Home Care Team/911, ER plans, supplies, evacuation, when to contact local ER officials and how to stay informed Problem:HH - Emergency Planning - Knowledge of Goal:HH - Knowledge of options for managing care in the event of an emergency related situation. Performed - Emergency planning assessment: the emergency plan, supplies needed, emergency contact numbers and an evacuation plan were reviewed Description: Patient and Caregiver is/are knowledgeable of emergency plans. Problem: - Emergency Planning - Knowledge of Goal:HH - Knowledge of options for managing care in the event of an emergency related situation. Performed HH - I/E fall prevention measures [...] patient at high risk for a fall Problem: - Falls - Risk of Goal: - Knowledge and management of fall prevention measures. Performed HH - Assess vital signs, pulse oximetry, pain, and as indicated, orthostatic vital signs Description: use agency-specific parameters Problem: - Standard of Care Goal: - Achieve care management for a safe to home/community discharge from homecare Performed HH - Assess skin integrity Problem: - Standard of Care Goal: - Achieve care management for a safe to home/community discharge from homecare Performed HH - Assess safety needs of patient (other than falls) Problem: - Standard of Care Goal:HH - Achieve care management for a safe to home/community discharge from homecare Performed - I/E discharge plan Problem: - Standard of Care Goal:HH - Achieve care management for a safe to home/community discharge from homecare Performed HH - Assess pain Problem: - Pain Goal:HH - Frequency of pain interfering with patient's activity or movement will improve with activity or movement by discharge. Performed HH - Assess orthopedic aftercare and healing process. Assess peripheral circulation, pulses, color, sensation, and movement Problem:HH - Orthopedic Aftercare Goal:HH - Demonstrate/verbalize management of orthopedic aftercare Performed HH - Therapeutic interventions, as indicated: Description: balance training, bed mobility training, breathing exercises, durable medical equipment training, gait/stair training, therapeutic exercise/home exercise program, transfer training, including bathroom transfers and wheelchair mobility training Problem:HH - Mobility and Activity Tolerance - Impaired Goal:HH - Demonstrate maximum mobility and activity level for safe function Performed This visit -balance training, bed mobility training, breathing exercises, durable medical equipment training, gait/stair training, therapeutic exercise/home exercise program, transfer training, including bathroom transfers and wheelchair mobility trainin g HH - Assess therapeutic function/activity and need for durable medical equipment Problem:HH - Mobility and Activity Tolerance - Impaired Goal:HH - Demonstrate maximum mobility and activity level for safe function Performed documented in this encounter Care Teams Ladle Pourer Relationship Specialty Start Date End Date Brianna Gonzalez MD [address] [place] [address] [place] [address] PCP - General Internal Medicine 07/11/25 documented as of this encounter Additional Source Comments The information contained in this document represents components of the legal health record. It is not the complete legal health record.[facility]
--- OUTSIDE RECORDS SUMMARY | 2025-08-19 12:15 | XMS_ITS | Encounter Summary ---
Author Organization [facility] Address [address] [place] [address] Phone Care Team Providers Care Poultry Processing Supervisor Name Role Phone Brianna Gonzalez MD Primary Care Provider [phone] Reason for Visit * Auth/Cert (Routine) Specialty Diagnoses / Procedures Referred By Emmanuel rivers Referred To Contact Referral ID Status Reason Start Date Expiration Date Visits Re quested Visits Authorized [id number] 1 1 Encounter Details Date Type Department Care Team (Late st Contact Info) Description 08/19/2025 12:15 PM EST Home Care Visit [facility] [address] [place], [place] [phone] Chasity Molina, OT [address] [place] [address] [email or web address] OT HOME VISIT Social History Tobacco Use [...] Sign Reading Time Taken Comments Blood Pressure 124/62 08/19/2025 12:30 PM EST Pulse 80 08/19/2025 12:30 PM EST Temperature 36.7 C (98 F) 08/19/2025 12:30 PM EST Respiratory Rate 20 08/19/2025 12:30 PM EST Oxygen Saturation 98% 08/19/2025 12:30 PM EST Inhaled Oxygen Concentration - - Weight - - Height - - Body Mass Index - - documented in this encounter Plan of Treatment Upcoming Encounters Date Type Department Care Team (Late st Contact Info) Description 08/22/2025 1:45 PM EST Appointment [facility] [address] [place] [phone] Chasity Molina, OT [address] [place] [address] [email or web address] 08/23/2025 12:00 PM EST Appointment [facility] [address] [place] [phone] Domitila Cifuentes, PT [address] [place] [address] [email or web address] 08/27/2025 12:30 AM EST Appointment [facility] [address] [place] [address] Osiris Cabrera RN [address] [place] [address] [email or web address] 09/03/2025 12:30 AM EST Appointment [facility] [address] [place] [phone] Osiris Cabrera RN [address] [place] [address] [email or web address] 09/10/2025 12:30 AM EST Appointment [facility] [address] [place] [phone] Osiris Cabrera RN [address] [place] [address] [email or web address] 09/17/2025 Appointment [facility] [address] [place] [phone] Osiris Cabrera RN [address] [place] [address] [email or web address] documented as of this encounter Visit Diagnoses [...] 1 goal linked to scheduled/document ed intervention 5 goal interventions scheduled/document ed in this visit [...] in right hand, by 08/23/25. 3. Pt wi ll tolerate wearing splint to right hand and/or using washcloth placed in right hand, to promote finger extension and manage flexor tone for optimal skin integrity in hand, by 08/23/25. -MET 08/15/25 4. Pt will implement pursed lip breathing strategies into functional ADL tasks/functional mobility, to maintain O2 sats >88% with functional ADLs, by 08/23/25. 5. Pt will complete upper body dressing at set up/supervision level, implementing veronique-dressing strategies, by 08/23/25. -MET 08/15/25 6. Pt will complete lower body dressing (pants/underwear) at set up/supervision level, using veronique-dressing strategies and adaptive equipment as needed by 08/23/25. -MET 08/15/25 7. Pt and caregiver will verbalize understanding of adaptive equipment recommenda tions to promote pt's optimal safety and functional independence by 08/23/25. HH - ADL/IADL Impairment [...] Clinical Focus this Visit & Instruction Provided: Pt's partner reports he continues to work with [employer] for PT-1 form. He has to change pt's address with social security. Tra as an appt with [facility] office Tuesday08/20/25. Pt's next MD appt i s orthopedics on 08/27/25. Pt reports no change in status. Bowel movement this morning. Pain rated as 6/10 in right shoulder, wrist and hip. Pt wearing right hand cylindrical foam sling upon OTR arrival. Pt with flat affect and offers no complaints , outside of pain this visit. Pt reports no improvement in urinary incontinence since last visit. Pt reports The exercises are going pretty good. I am doing them pretty much anywhere. OTR provided set up assist with pillow and theraband and pt com pleted 1 set x 10 reps for adductor and obturator strengthening with 2 verbal cues only to hold each rep for a count to 10 and to verify the number of reps completed. Pt completed heel pinches with cues only to ensure movement are quick and brisk. OTR wrote a note to orthopedist, advising pt returned home from rehab with fracture sling and wrist cock up splint, but she has not been wearing either of those since returning home. Wrist splint too painful. OTR removed cylindrical foam to create a palm protector, to prevent further hand contractures. Pt tolerates it well. No ROM has been completed to RUE due to lack of knowledge regarding status of fractures. OTR wrote questions as follows: 1. Can Oxana complete pendulum exercises to RUE? 2. Wh at is the status of Oxana's fractures? 3. Can Oxana complete ROM to right wrist? Tra, partner and pt verbalize understanding to take paperwork with them to pt's appt on 08/27 and bring back of copy (as it is carbon copied) with answers to OTR's questions. Pt reports I guess I won't get my morephine? Tra explains morephine has to be prescribed by Dr. Gonzalez and oxycodone needs to be prescribed by ortho. Both appts happening in the next two weeks. Instruction Provided to: patient Respon se to Instruction/Teaching : Is partially able to teach back topics as evidenced by completing beyond kegels with encouragement and step by step cues. Plan for Next Visit Specific Focus & Education Needed: 30 day reassessment New Orders: none Updated D ischarge Plan: anticipate d/c from OT by end of cert, pending results of f/u appt with ortho 08/27/25. HH - I/E management of care in [...] agency-specific parameters Problem: - Standard of Care Goal:HH - Achieve care management for a safe to home/community discharge from homecare Performed HH - Assess skin integrity Problem: - Standard of Care Goal:HH - Achieve care management for a safe to home/community discharge from homecare Performed HH - I/E safety measures, non-fall related Description: adequate lighting and safe ADLs/IADLs Problem: - Standard of Care Goal:HH - [...] HH - Assess pain Problem: - Pain Goal: - Frequency of pain interfering with patient's activity or movement will improve with activity or movement by discharge. Performed HH - I/E orthopedic management: normal healing process, abnormal findings, use of devices, and precautions/restriction s Problem: - Orthopedic Aftercare Goal: - Demonstrate/verbalize management of orthopedic aftercare Performed HH - Assess orthopedic aftercare and healing process. Assess peripheral circulation, pulses, color, sensation, and movement Problem: - Orthopedic Aftercare Goal:HH - Demonstrate/verbalize management of orthopedic aftercare Performed HH - I/E ADL/IADL performance, safety, and management Description: As indicated: ADL/IADL training, functional mobility training, adaptive equipment: recommendations and use, therapeutic exercise and home exercise program, safety, energy conservation/pacing, cognitive training, and visual/perceptual strategies. Problem:HH - ADL/IADL Impairment and Therapeutic Interventions Goal: - Promote higher level of independence with performance of ADLs/IADLs. Performed - [facility] Confidence incontinence program Problem:HH - ADL/IADL Impairment and Therapeutic Interventions Goal:HH - Promote higher level of independence with performance of ADLs/IADLs. Performed - Assess ADL/IADL performance, safety, management, and durable medical equipment Problem: - ADL/IADL Impairment and Therapeutic Interventions Goal:HH - Promote higher level of independence with performance of ADLs/IADLs. Performed documented in this encounter Care Teams Poultry Processing Supervisor Relationship Specialty Start Date End Date Brianna Gonzalez MD [facility] [place] [address] PCP - General Internal Medicine 07/11/25 documented as of this encounter Additional Source Comments The information contained in this document represents components of the legal health record. It is not the complete legal health record.[facility]
--- OUTSIDE RECORDS SUMMARY | 2025-08-20 11:00 | XMS_ITS | Encounter Summary ---
Author Organization [facility] Address [address] [place] [phone] Phone Care Team Providers Care Four Roll Calender Operator Name Role Phone Brianna Gonzalez MD Primary Care Provider [phone] Reason for Visit * Auth/Cert (Routine) Specialty Diagnoses / Procedures Referred By Emmanuel rivers Referred To Contact Referral ID Status Reason Start Date Expiration Date Visits Re quested Visits Authorized [id number] 1 1 Encounter Details Date Type Department Care Team (Late st Contact Info) Description 08/20/2025 11:00 AM EST Home Care Visit [facility] [address] [place] [phone] Osiris Cabrera RN [address] [place] [address] [email or web address] SN HOME VISIT Social History Tobacco Use [...] Description 08/22/2025 1:45 PM EST Appointment [facility] [address] [place] [phone] Chasity Molina, OT [address] [place] [address] 08/23/2025 12:00 PM EST Appointment [facility] [address] [place] [phone] Domitila Cifuentes, PT [address] [place] [address] 08/27/2025 12:30 AM EST Appointment [facility] [address] [place] [phone] Osiris Cabrera, SACHA [address] [place] [address] 09/03/2025 12:30 AM EST Appointment [facility] [address] [place] [phone] Osiris Cabrera, SACHA [address] [place] [address] 09/10/2025 12:30 AM EST Appointment [facility] [address] [place] [phone] Osiris Cabrera, SACHA [address] [place] [address] 09/17/2025 Appointment [facility] [address] [place] [phone] Osiris Cabrera, SACHA [address] [place] [address] documented as of this encounter Visit Diagnoses Not on filedocumented in this encounter Home Health Visit - Care Plan Visit Details Visit Type -SN HOME VISIT Discipline -Residential Problems Problem Description Start Date Status Goals [...] Planning - Knowledge of No HH - Achieve care management for a safe to home/community discharge from homecare HH - Standard of Care No Interventions Intervention Associated Problem/Goal Status Variance Visit Notes HH - I/E medication management: administration, purpose, dosages, preparation, setup, scheduling, side effects, food/drug interactions, and potential complications as indicated Description: Update patient's copy of medication list as needed. Problem:HH - Medication Management Goal:HH - Safe medication management, avoid unnecessary harm related to medication errors and/or interactions Scheduled - Complete medication review every visit and medication reconciliation as indicated. Pharmacy information: Description: [facility] Problem:HH - Medication Management Goal:HH - Safe medication management, avoid unnecessary harm related to medication errors and/or interactions Scheduled HH - Focus of care, teaching completed and plan for next visit Problem:HH - Focus of Care and Teaching Goal:HH - Communication and collaboration to achieve patient goals Scheduled HH - I/E management of care in an urgent or emergency (ER) situation: When to call your Home Care Team/91, ER plans, supplies, evacuation, when to contact local ER officials and how to stay informed Problem:HH - Emergency Planning - Knowledge of Goal:HH - Knowledge of options for managing care in the event of an emergency related situation. Scheduled HH - Emergency planning assessment: the emergency plan, supplies needed, emergency contact numbers and an evacuation plan were reviewed Description: Patient and Caregiver is/are knowledgeable of emergency plans. Problem:HH - Emergency Planning - Knowledge of Goal:HH - Knowledge of options for managing care in the event of an emergency related situation. Scheduled HH - Assess vital signs, pulse oximetry, pain, and as indicated, orthostatic vital signs Description: use agency-specific parameters Problem:HH - Standard of Care Goal:HH - Achieve care management for a safe to home/community discharge from homecare Scheduled HH - Assess skin integrity Problem: - Standard of Care Goal:HH - Achieve care management for a safe to home/community discharge from homecare Scheduled documented in this encounter Care Teams Four Roll Calender Operator Relationship Specialty Start Date End Date Brianna Gonzalez MD [address] [place] [address] [place] [address] PCP - General Internal Medicine 07/11/25 documented as of this encounter Additional Source Comments The information contained in this document represents components of the legal health record. It is not the complete legal health record.[facility]
--- NOTE | 2025-08-21 11:05 | A.OFFVIS_ITS ---
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 Accompanied by: FABIANA JUDD Allergies crab Allergy (Unknown, Verified 08/21/25 11:06) Hives penicillin V Allergy (Unknown, Verified 08/21/25 11:06) hives Penicillins (PENICILLINS) Allergy (Unknown, Verified 08/21/25 11:06) hives SEASONAL ALLERGIES Allergy (Mild, Uncoded 07/16/25 16:05) RUNNY NOSE Medication List - Last Reconciled 08/21/25 by Miranda Avilez MD albuterol sulfate 90 mcg/actuation 2 puffs PO Q6H PRN 30 days albuterol sulfate 2.5 mg inhalation Q4-6H PRN amlodipine 5 mg PO DAILY 90 days aspirin (Adult Low Dose Aspirin) 81 mg PO DAILY atorvastatin 40 mg PO BEDTIME [Diapers 3 times a day] docusate sodium 100 mg PO DAILY PRN ferrous sulfate 324 mg PO BID 90 days [id number]-[id number]-[id number] 100-62.5-25 mcg (Trelegy Ellipta) 1 inh inhalation DAILY folic acid 1 mg PO DAILY gabapentin 300 mg PO TID 90 days ipratropium-albuterol 0.5 mg-3 mg(2.5 mg base)/3 mL 3 mL inhalation QID PRN levetiracetam 500 mg PO BID 90 days metoprolol tartrate 25 mg PO BID 90 days mirtazapine 30 mg PO BEDTIME 90 days morphine concentrate mg PO ONCE omeprazole 20 mg PO DAILY@0630 [orthotic consult Orthotic consult to right hand as directed] [Orthotic consult orthotic consult to right foot as directed.] oxycodone 5 mg PO Q8H PRN 5 days oxycodone 5 mg PO TID PRN polyethylene glycol 3350 17 grams PO DAILY PRN prednisone 40 mg (2 x 20 mg) PO DAILY 7 days sertraline 50 mg PO DAILY HPI Comments Details: 59y/o Right handed calls for follow up. Tele appointment due to weather No seizures since last visit . Her anxiety is worse. she had 1 fall and was hospitalized recently History from last visit- In 2016 she had a CVA with Right Hemiplegia, aphasia ( Left MCA infarct - Left ICA occlusion) - with little recovery . Now she has some movement in her right leg. she had seizure like episodes 3-4 years ago and was started on keppra ABout 1 year ago- she was found in the bathroom floor- eyes were open but was confused.New CVA was ruled out . she had 2 significant episodes when she ran out of her keppra prescription. when she is taking her medications regularly there are no episodes of seizures.She has occasional aura- unable to describe . [facility] Medical History Seizure (~11/2021) History of multiple cerebrovascular accidents (CVAs) Hemiparesis affecting right side as late effect of cerebrovascular accident Aphasia History of non-ST elevation myocardial infarction (NSTEMI) (~11/2021) History of acute respiratory distress syndrome (ARDS) (~08/2021) Coronary artery disease Takotsubo cardiomyopathy COPD (chronic obstructive pulmonary disease) Respiratory failure with hypoxia Oxygen dependent Personal history of nicotine dependence Hemoptysis Closed subcapital fracture of femur Cocaine abuse Hypertensive emergency Normocytic anemia History of drug abuse Cocaine abuse Major depression, recurrent Acute CHF (congestive heart failure) Hypercapnic respiratory failure, chronic Asymptomatic carotid artery stenosis with infarction Chronic GERD Environmental allergies Anxiety, generalized Lipid disorder Asthma, moderate Surgical History History of left-sided carotid endarterectomy (~09/2012) History of tonsillectomy and adenoidectomy Family History Father Substance abuse Mother Brain cancer Maternal Grandfather History of heart attack Maternal Grandmother History of heart attack Paternal Grandfather No problems noted. Paternal Grandmother No problems noted. Brother No problems noted. Brother No problems noted. Son No problems noted. Daughter No problems noted. Other Mental health disorder Social History Household Members: None Household Members Other:: daughter Housing: Assisted Living Facility Do you presently have visiting nurse or other home services: No Unable to assess alcohol history related to: Refusing to respond Alcohol intake: former Patient Tobacco Use Status: Former Tobacco user Tobacco use type: Cigarette Cigarettes Per Day: 2 Years Smoked: COUPLE YEAR AGO PER PT e-Cigarette/Vaping Use: Never Used Second Hand Smoke Exposure: No Advance Directives Date on File: 11/25/21 service: No Current occupational status: disabled Cognitive needs: No Hearing needs: No Vision needs: No Physical Exam Const Other: speech - mild slurred General: cooperative Telehealth Telehealth Telehealth Platform: [employer] Location of provider rendering services: practice address Location of patient: address on file Patient Identification confirmed using: Name, : Yes Telehealth method: voice only Patient verbally consented to treatment: Yes Patient verbally consented to billing insurance company: Yes Patient informed of any privacy concerns related to visit: Yes Minutes spent on Phone/Video with Pt.: 22 Assessment & Plan Assessment & Plan (1) Seizure: Comment: s/o left MCA infarct Code(s): R56.9 - Unspecified convulsions Category: Medical (2) Hemiparesis affecting right side as late effect of cerebrovascular accident: Code(s): I69.351 - Hemiplegia and hemiparesis following cerebral infarction affecting right dominant side Category: Medical Plan Continue keppra 500mg bid - compliance stressed Gabapentin 300mg tid - for pain Monitor and for residual aura - will consider increasing keppra dose consider increasing sertraline dose to improve anxiety Medications: Refilled gabapentin 300 mg PO TID 270 caps 1RF 90 days levetiracetam 500 mg PO BID 180 tabs 6RF 90 days Coding Level of Care Code Tele Est Pt Level 4 (80320) Diagnoses Seizure R56.9 Hemiparesis affecting right side as late effect of cerebrovascular accident I69.351
--- OUTSIDE RECORDS SUMMARY | 2025-08-21 18:05 | XMS_ITS | Clinical Summary ---
Author Organization [facility] Address [address] [place] [address] Phone Care Team Providers Care Tapper Operator Name Role Phone Brianna Gonzalez MD Primary Care Provider [phone] Medications albuterol 2.5 mg /3 mL (0.083 %) nebulizer solution Take 2.5 mg by nebulization 3 (three) times a day. 5 Active amLODIPine (NORVASC) 5 MG tablet Take 5 mg by mouth daily. 5 Active aspirin 81 mg Tab Take 1 tablet by mouth daily. 5 Active docusate sodium (COLACE) 100 MG capsule Take 100 mg by mouth daily as needed for mild constipation. 5 Active omeprazole (PRILOSEC) 20 MG capsule Take 20 mg by mouth daily. 5 Active ferrous fumarate 324 mg (106 mg elemental) Tab Take 324 mg by mouth daily. Active folic acid (FOLVITE) 1 MG tablet Take 1 mg by mouth daily. Active gabapentin (NEURONTIN) 300 MG capsule Take 300 mg by mouth 3 (three) times a day. 5 Active ipratropium-al buteroL (DUONEB) 0.5-3 mg (2.5 mg base)/3 mL nebulizer solution Take 3 mL by nebulization every 6 (six) hours as needed for shortness of breath/dyspnea. 5 Active levETIRAcetam (KEPPRA) 500 MG tablet Take 500 mg by mouth 2 (two) times a day. Active atorvastatin (LIPITOR) 40 MG tablet Take 40 mg by mouth nightly at bedtime. Active metoprolol tartrate (LOPRESSOR) 25 MG tablet Take 25 mg by mouth 2 (two) times a day. Active polyethylene glycol (MIRALAX) 17 gram packet Take 17 g by mouth daily. Active mirtazapine (REMERON) 30 MG tablet Take 30 mg by mouth nightly at bedtime. Active morphine sulfate (MORPHINE HIGH CONC) 20 mg/mL oral syringe Take 2.5 mg by mouth every 4 (four) hours as needed for pain (specific location in comments). Active oxyCODONE 5 MG immediate release tablet Take 5 mg by mouth every 4 (four) hours as needed for pain (specific location in comments). Active senna (SENOKOT) 8.6 mg tablet Take 1 tablet by mouth daily. Active sertraline (ZOLOFT) 50 MG tablet Take 50 mg by mouth daily. Active fluticasone-um eclidin-vilant er (TRELEGY ELLIPTA) 100-62.5-25 mcg inhalation powder Inhale 1 puff into the lungs daily. not taking. Insurance does not cover caregivers having MD's assisting with obtaining Active calcium carbonate 500 mg (200 mg elemental) chewable tablet Take 2 tablets by mouth 4 (four) times a day as needed for heartburn. Active acetaminophen (TYLENOL) 500 MG tablet Take 1,000 mg by mouth every 8 (eight) hours as needed for pain (specific location in comments) (arm and headaches). Active OXYGEN-AIR DELIVERY SYSTEMS MISC 4 L/min by Nasal route continuous. Active predniSONE (DELTASONE) 5 MG tablet Take 5 mg by mouth daily. Active famotidine (PEPCID) 20 MG tablet 20 mg daily. not taking 025 Discontin ued(Other ) Encounters Date Type Department Care Team Description 08/20/2025 11:00 AM EST [facility] [address] [place] [address] Osiris Cabrera RN SN HOME VISIT 08/19/2025 12:15 PM EST [facility] Visit [facility] [address], [place] [phone] Chasity Molina, OT OT HOME VISIT 08/16/2025 12:30 PM EST Home Care Visit [facility] [address], [place] [phone] Domitila Cifuentes, PT PT HOME VISIT 08/15/2025 2:00 PM EST Home Care Visit [facility] [address], [place] [phone] Chasity Molina, OT OT HOME VISIT 08/14/2025 2:15 AM EST Home Care Visit [facility] [address], [place] [phone] Mandi Mazariegos LPN OIL FIELD OPERATOR HOME VISIT 08/12/2025 12:00 PM EST Home Care Visit [facility] [address], [place] [phone] Chasity Molina, OT OT HOME VISIT 08/09/2025 11:00 AM EST Home Care Visit [facility] [address], [place] [phone] Domitila Cifuentes, PT PT HOME VISIT 08/06/2025 Home Care Visit [facility] [address], [place] [phone] Chasity Molina, OT TELEPHONE ENCOUNTER 08/06/2025 Episode Documentation Update [facility] [address], [place] [phone] Xena Han 08/05/2025 12:00 PM EST Home Care Visit [facility] [address], [place] [phone] Chasity Molina, OT OT HOME VISIT 08/02/2025 Episode Documentation Update [facility] [address] [place], [place] [phone] 08/01/2025 1:30 PM EST Home [facility] Visit [facility] [address] [place] [address] Chasity Molina, OT OT HOME VISIT 08/01/2025 11:00 AM EST Home Care Visit [facility] [address] [place] [address] Domitila Cifuentes, PT PT EVALUATION 08/01/2025 12:30 AM EST Home Care Visit [facility] [address] [place] [address] Mandi Mazariegos LPN OIL FIELD OPERATOR HOME VISIT 07/31/2025 Home Care Visit [facility] [address] [place] [address] Domitila Cifuentes, PT TELEPHONE ENCOUNTER 07/30/2025 2:30 PM EST Home Care Visit [facility] [address] [place] [address] Carol Hernandez, SACHA SN HOME VISIT 07/30/2025 1:30 PM EST Home Care Visit [facility] [address] [place] [address] Chasity Molina, OT OT HOME VISIT 07/26/2025 Home Care Visit [facility] [address] [place] [address] Samreen Slade, OT TELEPHONE ENCOUNTER 07/25/2025 Episode Documentation Update [facility] [address] [place] [address] 07/25/2025 Home Care Visit [facility] [address] [place] [address] Chasity Molina, OT OT EVALUATION 07/24/2025 9:30 AM EST [facility] Visit [facility] [address] [place] [phone] Rhonda Case, SACHA SN OASIS START OF CARE (SOC) 07/24/2025 Plan of Care Documentation [facility] [address] [place] [phone] 07/22/2025 Home Care Visit [facility] [address] [place] [phone] Edel Ortiz RN CASE COMMUNICATION 07/22/2025 Home Care Visit [facility] [address], [place] [phone] Edel Ortiz RN TELEPHONE ENCOUNTER 07/16/2025 Lab Requisition [facility] Main [address] [place] [address] Shana Chand MD Unspecified fracture of upper end of right humerus, subsequent encounter for fracture with routine healing; Other seizures; Essential (primary) hypertension 07/12/2025 5:22 PM EDT - 07/12/2025 11:59 PM EDT Hospital Encounter [facility] [address] [place] [address] Shana Chand MD Discharge Disposition: Home or Self Care 07/12/2025 Transcribe Orders [facility] [address] [place] [address] Shana Chand MD Fever, unspecified fever cause (Primary Dx); Urinary frequency; Leukocytosis, unspecified type 07/11/2025 Orders Only [facility] [address] [place] [phone] Homehealth, Yuli Dos Santos MD 07/08/2025 9:05 AM EDT - 07/08/2025 11:59 PM EDT Hospital Encounter [facility] [address] [place] [address] Shana Chand MD Discharge Disposition: Home or Self Care 07/08/2025 Transcribe Orders [facility] [address] [place] [address] Shana Chand MD Acute on chronic respiratory failure, unspecified whether with hypoxia or hypercapnia (Primary Dx); Acute myocardial infarction, subendocardial infarction, initial episode of care; Familial hypercholesterolemia, unspecified type 07/05/2025 11:51 AM EDT - 07/05/2025 11:59 PM EDT Hospital Encounter [facility] Laboratory [address] [place] [address] Shana Chand MD Discharge Disposition: Home or Self Care 07/05/2025 Transcribe Orders [facility] Specimen Processing [address] [place] [address] Shana Chand MD Fever, unspecified fever cause (Primary Dx) 07/01/2025 7:06 AM EDT - 07/01/2025 11:59 PM EDT Hospital Encounter [facility] Laboratory [address] [place] [address] Shana Chand MD Discharge Disposition: Home or Self Care 07/01/2025 Transcribe Orders [facility] Specimen Processing [address] [place] [address] Shana Chand MD Somatosensory attacks (Primary Dx) 06/29/2025 10:28 AM EDT - 06/29/2025 11:59 PM EDT Hospital Encounter [facility] Phleb Main [address] [place] [address] Shana Chand MD Discharge Disposition: Home or Self Care 06/29/2025 Transcribe Orders [facility] Phleb Main [address] [place] [address] Shana Chand MD Urinary tract infection without hematuria, site unspecified (Primary Dx) 06/27/2025 9:35 AM EDT - 06/27/2025 11:59 PM EDT Hospital Encounter [facility] Laboratory [address] [place] [address] Shana Chand MD Discharge Disposition: Home or Self Care 06/27/2025 Transcribe Orders [facility] Specimen Processing [address] [place] [address] Shana Chand MD Illness (Primary Dx) from Last 3 Months Social History Tobacco Use Types Packs/Day Years [...] on file Sexual Orientation Not on file Last Filed Vital Signs [...] - - Body Mass Index - - Plan of Treatment Upcoming Encounters Date Type Department Care Team (Late st Contact Info) Description 08/22/2025 1:45 PM EST Appointment [facility] [address] [place] [address] Chasity Molina, OT [address] [place] [address] 08/23/2025 12:00 PM EST Appointment [facility] [address] [place] [address] Domitila Cifuentes, PT [address] [place] [address] 08/27/2025 12:30 AM EST Appointment [facility] [address] [place] [phone] Osiris Cabrera RN [address] [place] [address] 09/03/2025 12:30 AM EST Appointment [facility] [address] [place] [phone] Osiris Cabrera RN [address] [place] [address] 09/10/2025 12:30 AM EST Appointment [facility] [address] [place] [phone] Osiris Cabrera RN [address] [place] [address] 09/17/2025 Appointment [facility] [address] [place] [phone] Osiris Cabrera RN [address] [place] [address] Health Maintenance Due Date Last Done Comments Adult Td,Tdap Booster 1964 LIPID PANEL 1964 DEPRESSION SCREENING 1976 SMOKING Hx and SMOKELESS TOBACCO SCREENING 1977 HEPATITIS C SCREENING 1982 HIV ONE-TIME SCREENING (18-65 YEARS) 1982 PAP SMEAR 1985 MAMMOGRAM 2004 COLOGUARD 2009 COLONOSCOPY 2009 COLORECTAL CANCER SCREENING 2009 FIT TEST 2009 FOBT 2009 SIGMOIDOSCOPY 2009 VIRTUAL COLONOSCOPY 2009 ZOSTER VACCINES (1 of 2) 2014 PNEUMOCOCCAL VACCINES (50+ years) (2 of 2 - PCV) 08/21/2020 08/21/2019 INFLUENZA VACCINE (#1) 2025 , 07/31/2020, 08/21/2019, Additional history exists COVID-19 VACCINE (1 - 2024- season) 2025 RSV VACCINE (1 - 1-dose 75+ series) 2039 HEPATITIS A VACCINES Aged Out No long er eligible based on patient's age to complete this topic HIB VACCINES Aged Out No longer eligi ble based on patient's age to complete this topic MENINGOCOCCAL VACCINES (ACWY) Aged Out No longer eligible based on patient's age to complete this topic MENINGOCOCCAL VACCINES (B) Aged Out N o longer eligible based on patient's age to complete this topic Medical Devices Not on file Procedures Procedure Name Priority Date/Time Associated Diagnosis Comments BASIC METABOLIC PANEL (BMP) Today 07/16/2025 7:25 AM EST Unspecified fracture of upper end of right humerus, subsequent encounter for fracture with routine healing Other seizures Essential (primary) hypertension CBC Today 07/16/2025 7:25 AM EST Unspecified fracture of upper end of right humerus, subsequent encounter for fracture with routine healing Other seizures Essential (primary) hypertension URINALYSIS WITH REFLEX TO URINE CULTURE Routine 07/12/2025 10:45 AM EDT Fever, unspecified fever cause Urinary frequency Leukocytosis, unspecified type BASIC METABOLIC PANEL (BMP) Routine 07/08/2025 6:48 AM EDT Acute on chronic respiratory failure, unspecified whether with hypoxia or hypercapnia Acute myocardial infarction, subendocardial infarction, initial episode of care Familial hypercholesterolemia, unspecified type CBC Routine 07/08/2025 6:48 AM EDT Acute on chronic respiratory failure, unspecified whether with hypoxia or hypercapnia Acute myocardial infarction, subendocardial infarction, initial episode of care Familial hypercholesterolemia, unspecified type CBC Routine 07/05/2025 11:05 AM EDT Fever, unspecified fever cause COMPREHENSIVE METABOLIC PANEL (CMP) Routine 07/05/2025 11:05 AM EDT Fever, unspecified fever cause BASIC METABOLIC PANEL (BMP) Routine 07/01/2025 6:00 AM EDT Somatosensory attacks CBC Routine 07/01/2025 6:00 AM EDT Somatosensory attacks URINALYSIS WITH REFLEX TO URINE CULTURE Routine 06/29/2025 6:30 AM EDT Urinary tract infection without hematuria, site unspecified COMPREHENSIVE METABOLIC PANEL (CMP) Routine 06/27/2025 6:05 AM EDT Illness CBC Routine 06/27/2025 6:05 AM EDT Illness from Last 3 Months Results * (ABNORMAL) CBC (07/16/2025 7:25 AM EST) Only the most recent of5 resultswithin the time period is included. WBC 10.30 4.00 - 11.00 K/uL 07/16/2025 11:44 AM [facility] RBC 2.75(L) 4.00 - 5.20 M/uL 07/16/2025 11:44 AM [facility] Hemoglobin 8.2(L) 12.0 - 16.0 g/dL 07/16/2025 11:44 AM [facility] Hematocrit 27.0(L) 36.0 - 46.0 % 07/16/2025 11:44 AM [facility] MCV 98.2 80.0 - 100.0 fL 07/16/2025 11:44 AM [facility] MCH 29.8 27.0 - 31.0 pg 07/16/2025 11:44 AM [facility] MCHC 30.4(L) 32.0 - 36.0 g/dL 07/16/2025 11:44 AM [facility] PLT 318 150 - 450 K/uL 07/16/2025 11:44 AM [facility] MPV 9.6 8.4 - 12.0 fL 07/16/2025 11:44 AM [facility] RDW-CV 12.8 11.5 - 14.5 % 07/16/2025 11:44 AM [facility] Absolute NRBC 0.00 <=0.00 K cells/uL 07/16/2025 11:44 AM [facility] NRBC 0.0 <=0.0 /100 WBCs 07/16/2025 11:44 AM [facility] Blood (Blood) 07/16/2025 7:2 5 AM EST 07/16/2025 11:04 AM EST us Shana Chand MD LAB BLOOD BKR ORDERABLES Final Result [address] [address] * (ABNORMAL) Basic Metabolic Panel (BMP) (07/16/2025 7:25 AM EST) Only the most recent of3 resultswithin the time period is included. Sodium 133(L) 136 - 145 mmol/L 07/16/2025 12:22 PM [facility] Potassium 4.6 3.4 - 5.1 mmol/L 07/16/2025 12:22 PM [facility] Comment:NOTE: Specimen hemol yzed. Results may be falsely increased. Chloride 92(L) 98 - 107 mmol/L 07/16/2025 12:22 PM [facility] CO2 30 20 - 31 mmol/L 07/16/2025 12:22 PM [facility] Anion Gap 11 3 - 17 mmol/L 07/16/2025 12:22 PM [facility] BUN 12 6 - 23 mg/dL 07/16/2025 12:22 PM [facility] Creatinine 0.30(L) 0.50 - 1.00 mg/dL 07/16/2025 12:22 PM [facility] eGFR 121 >59 mL/min/1.7 3m2 07/16/2025 12:22 PM [facility] Comment:Estimated glomerular filtration rate calculated using the CKD-EPI refit equation. Glucose 83 70 - 99 mg/dL 07/16/2025 12:22 PM [facility] Calcium 8.9 8.5 - 10.5 mg/dL 07/16/2025 12:22 PM [facility] Blood (Blood) 07/16/2025 7:2 5 AM EST 07/16/2025 11:04 AM EST Shana Chand MD LAB BLOOD BKR ORDERABLES Final Result Performing Organization Address [facility] Co de Phone Number [address] [phone] * Urinalysis w/reflex Urine Culture (07/12/2025 10:45 AM EDT) Only the most recent of2 resultswithin the time period is included. COLOR Yellow Yellow [facility] CLARITY Clear [facility] GLUCOSE Negative Negative [facility] BILI Negative Negative [facility] KETONES Negative Negative [facility] SPECIFIC GRAVITY <1.005 1.005 - 1.030 [facility] BLOOD Negative Negative [facility] PH 6.0 5.0 - 8.0 [facility] Protein-UA Negative Negative [facility] NITRITE Negative Negative [facility] Leukocyte esterase, ur Negative Negative [facility] Urine (Urine) 07/12/2025 10: 45 AM EDT 07/12/2025 5:24 PM EDT Shana Chand MD LAB URINE ORDERABLES Final Res ult Performing Organization Address [facility] Co de Phone Number [address] [address] * (ABNORMAL) Comprehensive metabolic panel (07/05/2025 11:05 AM EDT) Only the most recent of2 resultswithin the time period is included. SODIUM 137 133 - 146 mmol/L [facility] POTASSIUM 4.1 3.3 - 5.1 mmol/L [facility] CHLORIDE 93(L) 96 - 108 mmol/L [facility] CO2 35 21 - 35 mmol/L [facility] BUN 9 6 - 19 mg/dL [facility] CREATININE 0.30(L) 0.5 - 1.5 mg/dL [facility] GLUCOSE 76 70 - 99 mg/dL [facility] ALBUMIN 4.0 3.9 - 4.8 g/dL [facility] TOTAL PROTEIN 5.5(L) 6.5 - 8.0 g/dL [facility] CALCIUM 9.1 8.4 - 10.3 mg/dL [facility] ALKALINE PHOSPHATASE 59 39 - 117 U/L [facility] TOTAL BILIRUBIN <0.2 0.0 - 1.2 mg/dL [facility] AST 13 0 - 37 U/L [facility] ALT 17 0 - 40 U/L [facility] GLOBULIN 1.5 1 - 4.8 g/dL [facility] EGFR >120 >59 mL/min/1.7 3m2 [facility] Comment:Estimated glomerular filtration rate calculated using the CKD-EPI refit equation. ANION GAP 13 10 - 20 mmol/L [facility] Blood 07/05/2025 11:0 5 AM EDT 07/05/2025 11:58 AM EDT us Shana Chand MD LAB BLOOD BKR ORDERABLES Final Result Performing Organization Address City/State/[facility] Co de Phone Number [address] [phone] from Last 3 Months Insurance [facility] ACO [facility] [place] [facility] [place] [address] Advance Directives For more information, please contact: [phone] (9AM - 5PM [facility], Tuesday-Tuesday) Documents on File Type Date Recorded 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 [address] PCP - General Internal Medicine 07/11/25 Additional Source Comments The information contained in this document represents components of the legal health record. It is not the complete legal health record.[facility]
--- OUTSIDE RECORDS SUMMARY | 2025-08-21 18:05 | XMS_ITS | Encounter Summary ---
Author Organization [facility] Address [address] [place] [phone] Phone Care Team Providers Care Noodle Maker Name Role Phone Brianna Gonzalez MD Primary Care Provider [phone] Encounter Details Date Type Department Care Team (Late Contact Info) Description 07/16/2025 Lab Requisition [facility] Main [address] [place] [address] Shana Chand MD [address] [place] [address] [phone] [email or web address] Unspecified fracture of upper end of right [...] Info) Description 08/22/2025 1:45 PM EST Appointment [facility] [address] [place] [phone] Chasity Molina, OT [address] [place] [address] 08/23/2025 12:00 PM EST Appointment [facility] [address] [place] [phone] Domitila Cifuentes, PT [address] [place] [address] 08/27/2025 12:30 AM EST Appointment [facility] [address] [place] [phone] Osiris Cabrera RN [address] [place] [address] 09/03/2025 12:30 AM EST Appointment [facility] [address] [place] [address] Osiris Cabrera, SACHA [address] [place] [address] 09/10/2025 12:30 AM EST Appointment [facility] [address] [place] [phone] Osiris Cabrera, SACHA [address] [place] [address] 09/17/2025 Appointment [facility] [address] [place] [phone] Osiris Cabrera, SACHA [address] [place] [address] documented as of this encounter Procedures Procedure [...] 136 - 145 mmol/L 07/16/2025 12:22 PM [facility] Potassium 4.6 3.4 - 5.1 mmol/L 07/16/2025 12:22 PM [facility] Comment:NOTE: Specimen hemol yzed. Results may be falsely increased. Chloride 92(L) 98 - 107 mmol/L 07/16/2025 12:22 PM [facility] CO2 30 20 - 31 mmol/L 07/16/2025 12:22 PM [facility] Anion Gap 11 3 - 17 mmol/L 07/16/2025 12:22 PM [facility] BUN 12 6 - 23 mg/dL 07/16/2025 12:22 PM [facility] Creatinine 0.30(L) 0.50 - 1.00 mg/dL 07/16/2025 12:22 PM [facility] eGFR 121 >59 mL/min/1.7 3m2 07/16/2025 12:22 PM [facility] Comment:Estimated glomerular filtration rate calculated using the CKD-EPI refit equation. Glucose 83 70 - 99 mg/dL 07/16/2025 12:22 PM [facility] Calcium 8.9 8.5 - 10.5 mg/dL 07/16/2025 12:22 PM [facility] Blood (Blood) 07/16/2025 7:2 5 AM EST 07/16/2025 11:04 AM EST us Shana Chand MD LAB BLOOD BKR ORDERABLES Final Result [facility] [address] [place] [address] * (ABNORMAL) CBC (07/16/2025 7:25 AM EST) WBC 10.30 4.00 - 11.00 K/uL 07/16/2025 11:44 AM [facility] RBC 2.75(L) 4.00 - 5.20 M/uL 07/16/2025 11:44 AM [facility] Hemoglobin 8.2(L) 12.0 - 16.0 g/dL 07/16/2025 11:44 AM [facility] Hematocrit 27.0(L) 36.0 - 46.0 % 07/16/2025 11:44 AM [facility] MCV 98.2 80.0 - 100.0 fL 07/16/2025 11:44 AM [facility] MCH 29.8 27.0 - 31.0 pg 07/16/2025 11:44 AM [facility] MCHC 30.4(L) 32.0 - 36.0 g/dL 07/16/2025 11:44 AM [facility] PLT 318 150 - 450 K/uL 07/16/2025 11:44 AM [facility] MPV 9.6 8.4 - 12.0 fL 07/16/2025 11:44 AM [facility] RDW-CV 12.8 11.5 - 14.5 % 07/16/2025 11:44 AM [facility] Absolute NRBC 0.00 <=0.00 K cells/uL 07/16/2025 11:44 AM [facility] NRBC 0.0 <=0.0 /100 WBCs 07/16/2025 11:44 AM [facility] Blood (Blood) 07/16/2025 7:2 5 AM EST 07/16/2025 11:04 AM EST us Shana Chand MD LAB BLOOD BKR ORDERABLES Final Result [facility] [address] [place] [address] documented in this encounter Visit Diagnoses Diagnosis Unspecified fracture of upper end of right humerus, subsequent encounter for fracture with routine healing Other seizures Essential (primary) hypertension Unspecified essential hypertension documented in this encounter Care Teams Noodle Maker Relationship Specialty Start Date End Date Brianna Gonzalez MD [facility] [place] [address] PCP - General Internal Medicine 07/11/25 documented as of this encounter Additional Source Comments The information contained in this document represents components of the legal health record. It is not the complete legal health record.[facility]
== END 2025-08-21 15:45 | disposition home or self-care (01) ==
PROVIDERS: PCP Internal Medicine; Visit Provider Psychiatry & Neurology Neurology
DX: R56.9 Unspecified convulsions (principal); I69.351 Hemiplegia and hemiparesis following cerebral infarction affecting right dominant side
CPT/HCPCS: 99214

== ENCOUNTER → 2025-08-27 14:38 | Outpatient (BNV) | payer OTHER, SELFPAY | PROVIDERS: Visit Provider Radiology Diagnostic Radiology | DX: M25.511 Pain in right shoulder (principal); M85.841 Other specified disorders of bone density and structure, right hand | CPT/HCPCS: 73030; 73110 ==

== ENCOUNTER 2025-08-27 14:43 | Outpatient (AMB) | payer OTHER, SELFPAY ==
--- OUTSIDE RECORDS SUMMARY | 2025-08-22 13:45 | XMS_ITS | Encounter Summary ---
Author Organization [facility] Address [address] [place] [address] Phone Care Team Providers Care Hourly Shift Manager Name Role Phone Brianna Gonzalez MD Primary Care Provider [phone] Reason for Visit * Auth/Cert (Routine) Specialty Diagnoses / Procedures Referred By Emmanuel rivers Referred To Contact Referral ID Status Reason Start Date Expiration Date Visits Re quested Visits Authorized [id number] 1 1 Encounter Details Date Type Department Care Team (Late st Contact Info) Description 08/22/2025 1:45 PM EST Home Care Visit [facility] [address], [place] [phone] Chasity Molina, OT [address] [place] [address] [email or web address] OT TFA VISIT Social History Tobacco Use Types Packs/Day [...] Sign Reading Time Taken Comments Blood Pressure 110/56 08/22/2025 1:44 PM EST Pulse 76 08/22/2025 1:44 PM EST Temperature 36.7 C (98 F) 08/22/2025 1:44 PM EST Respiratory Rate 20 08/22/2025 1:44 PM EST Oxygen Saturation 98% 08/22/2025 1:44 PM EST Inhaled Oxygen Concentration - - Weight - - Height - - Body Mass Index - - documented in this encounter Plan of Treatment Upcoming Encounters Date Type Department Care Team (Late st Contact Info) Description 08/29/2025 1:30 PM EST Appointment [facility] [address] [place] [phone] Chasity Molina, OT [address] [place] [address] [email or web address] 09/02/2025 2:45 AM EST Appointment [facility] [address] [place] [phone] Chasity Molina, OT [address] [place] [address] [email or web address] 09/03/2025 4:45 AM EST Appointment [facility] [address] [place] [phone] Domitila Cifuentes, PT [address] [place] [address] [email or web address] 09/03/2025 10:30 AM EST Appointment [facility] [address] [place] [phone] Osiris Cabrera, RN [address] [place] [address] [email or web address] 09/09/2025 1:00 AM EST Appointment [facility] [address] [place] [phone] Chasity Molina, OT [address] [place] [address] [email or web address] 09/10/2025 12:30 AM EST Appointment [facility] [address], [place] [phone] Osiris Cabrera RN [address] [place] [address] [email or web address] 09/17/2025 Appointment [facility] [address], [place] [phone] Osiris Cabrera RN [address] [place] [address] documented as of this encounter Visit Diagnoses Not on filedocumented in this encounter Home Health Visit - Care Plan Visit Details Visit Type -OT TFA VISIT Discipline -Occupational Therapy Problems Problem Description [...] with performance of ADLs/IADLs. Description: OT GOALS: 4. Pt will implement pursed lip breathing strategies into functional ADL tasks/functional mobility, to maintain O2 sats >88% with functional ADLs, by 08/23/25. -08/22/25, progressing, O2 sats drop to low-mid 70s, goal extended to 09/13/25. 1. Pt will participate in confidence program, as a means of decreasing urinary incontinence by 08/23/25. -MET 08/22/25 2. Pt and caregiver will complete a right hand PROM HEP to prevent further flexion contractures in right hand, by 08/23/25. -MET 08/22/25 3. Pt will tolerate wearing splint to right hand and/or using washcloth placed in right hand, to promote finger extension and manage flexor tone for optimal skin integrity in hand, by 08/23/25. -MET 08/15/25 5. Pt will complete upper body dressing at set up/supervision level, implementing veronique-dressing strategies, by 08/23/25. -MET 08/15/25 6. Pt will complete lower body dressing (pants/underwear) at set up/supervision level, using veronique-dressing strategies and adaptive equipment as needed by 08/23/25. -MET 08/15/25 7. Pt and caregiver will verbalize understanding of adaptive equipment recommendations to promote pt's optimal safety and functional independence by 08/23/25. -MET 08/22/25 HH - ADL/IADL Impairment and Therapeutic Interventions Revised No Interventions Intervention Associated Problem/Goal Status Variance [...] medication reconciliation as indicated. Pharmacy information: Description: [facility] Problem:HH - Medication Management Goal:HH - Safe medication management, avoid unnecessary harm related to medication errors and/or interactions Performed HH - Focus of care, teaching completed and plan for next visit Problem:HH - Focus of Care and Teaching Goal:HH - Communication and collaboration to achieve patient goals Performed Primary Clinical Focus this Visit & Instruction Provided: OT 30 day reassessment visit: Pt is a 59 y/o female, seen for 8 skilled OT visits since being referred for [facility] OT services s/p d/c from [facility] s/p respiratory failure, COPD exacerbation, UTI sepsis, R proximal humerus fx, R radial styloid fx approximately 7 weeks ago due to seizure. Of note, to date pt has not seen orthopedist since diagnosis of RUE fractures. Pt returned from rehab in a fracture sling but no wrist brace/support. Pt has since discontinued use of fracture sling since returning home. I was supposed to see ortho, but I wasn't feeling well, while at [facility] so I cancelled the visit. Pt's ortho appt scheduled for 08/27/25. On OT evaluation, pt noted to exhibits flexor t one/spasticity in right hand. OTR noted flexion contractures of fingers, as they were all difficult to range into finger extension, with <1/4 range achieved. Partner reported pt had a wrist cock up hand splint she was not wearing, as she was u/a to pu t it on and pt I t hurts. On eval, pt demonstrated impaired memory since her stroke, in 2016. She has word-finding deficits and exhibited impaired insight, judgement and safety awareness. Pt ambulated to bathroom using veronique-walker at contact guard a ssist level and c/o s light dizziness. Pt's O2 sats dropped to 79% once she sat back in her recliner, then to 77% and took >2 mins to return to 90%, finally settling at 92% all on 4L O2 via NC. Pt also reported long-standing urinary incontinence. Her affect was flat and she reported both anxiety and depression. Skilled OT interventions have focused on creating a splint or palm protector pt could and would wear in right hand. Taking the cylindrical foam from her cock up splint, OTR threaded a pie ce of theraband through opening and created a palm protector splint pt could don/doff herself, allowing gentle passive range of MCPS, PIPs and DIPs into extension. Pt wears splint several times a day and is not able to achieve greater than range of mo tion for MCP extension, range of motion at PIPs and near full range of motion at DIPs. Pt tolerates palm protector well and states I can see it is helping. Pt also noted to complete SROM to fingers, into extension intermittently during OT visits. OTR has also assessed pt's dressing ability, demonstrating veronique-dressing strategies. Pt able to dress herself at setup/supervision level, using veronique-dressing strategies, including socks. She chooses to accept help from cross cut sawyer due to the taxing nature of the dressing activity. Partner reports today, She can put her tshirt on, but she can't take it off. OTR instructed pt in doffing strategy of pulling tshirt off by collar at back of neck, overhead. Pt reprots it causes too much RUE pain. Pt requires min assist to pull left arm out of shirt sleeve, then doffing over head then off RUE. Pt's O2 sats continue to drop to the mid to low 70's on 4L O2 when walking back from bathroom. Pt had appt with prison keeper, Dr. Gonzalez, scheduled last week, but i t had to be cancelled due to lack of van transportation through [employer]. Pt's partner working with social security to get address changed and PT1 rides secured for upcoming ortho appt next week. OTR has also been educating pt on confidence program. She i s reluctant to change any of her lifestyle habits (she drinks caffeinated pepsi all the time, day and night). She is able to complete 'rising/falling' breath strategies, as she purse lip breaths all the time during mobility. She is also able to complet e beyond kegel exercises with set up and intermittent cues. During today's visit, pt reports urinary incontinence has improved 75% with only occasional leakage. Pt reports he current issue is frequency (potentially due to the amount of carbonated bever ages she drinks, with carbonation being a bladder irritant). Pt continues to c/o pain in right wrist and shoulder (where breaks occurred 8+ weeks ago). No ROM has been completed to either joint, given fact that she has not seen orthopedics. OTR revi ewed goals with pt and partner today. Pt has met all OT goals except maintaining O2 sats >88% during functional activities. Pt in agreement with ongoing OT 1 time a week for 3 weeks to f/u on ortho appt, create new OT goals and implement treatment stra tegies based on ortho recommendations as well as following up on appt with Dr. Gonzalez 09/02/25. OTR wrote out summary for pt and partner to take to ortho f/u 08/27/25, asking about status of healing of both fractures and seeking guidance and orders for R OM allowances to RUE. All interventions PRN as patient's condition indicates. Instruction Provided to: patient and caregiver Response to Instruction/Teaching: Is fully able to teach back topics as evidenced by actively participating in goal review a nd goal setting. Plan for Next Visit Specific Focus & Education Needed: f/u on ortho appt for ROM allowances to RUE New Orders: OT 1 time a week for 3 weeks Updated Discharge Plan: d/c from OT by 09/11/25 HH - I/E management of care in [...] - Respiratory Status - Impaired Goal:HH - Demonstrate/verbaliz e causes, impacts, and management of respiratory condition resulting in adequate oxygenation and ventilation Performed HH - Assess infection risk and s/s Problem: - Infection - Actual or Risk of [...] homecare Performed HH - I/E discharge plan Problem: - Standard [...] s Problem:HH - Orthopedic Aftercare Goal:HH - Demonstrate/verbaliz e management of orthopedic aftercare Performed HH - Assess orthopedic aftercare and healing process. Assess peripheral circulation, pulses, color, sensation, and movement Problem:HH - Orthopedic Aftercare Goal:HH - Demonstrate/verbaliz e management of orthopedic aftercare Performed HH - I/E ADL/IADL performance, safety, and management Description: As indicated: ADL/IADL training, functional mobility training, adaptive equipment: recommendations and use, therapeutic exercise and home exercise program, safety, energy conservation/pacing, cognitive training, and visual/perceptual strategies. Problem:HH - ADL/IADL Impairment and Therapeutic Interventions Goal:HH - Promote higher level of independence with performance of ADLs/IADLs. Performed HH - [facility] Confidence incontinence program Problem:HH - ADL/IADL Impairment and Therapeutic Interventions Goal:HH - Promote higher level of independence with performance of ADLs/IADLs. Performed HH - Assess ADL/IADL performance, safety, management, and durable medical equipment Problem:HH - ADL/IADL Impairment and Therapeutic Interventions Goal:HH - Promote higher level of independence with performance of ADLs/IADLs. Performed documented in this encounter Care Teams Hourly Shift Manager Relationship Specialty Start Date End Date Brianna Gonzalez MD [facility] [place] [address] PCP - General Internal Medicine 07/11/25 documented as of this encounter Additional Source Comments The information contained in this document represents components of the legal health record. It is not the complete legal health record.[facility]
--- OUTSIDE RECORDS SUMMARY | 2025-08-27 11:30 | XMS_ITS | Encounter Summary ---
Author Organization [facility] Address [address] [place] [phone] Phone Care Team Providers Care Negotiator Sales Name Role Phone Brianna Gonzalez MD Primary Care Provider [phone] Reason for Visit * Auth/Cert (Routine) Specialty Diagnoses / Procedures Referred By Emmanuel rivers Referred To Contact Referral ID Status Reason Start Date Expiration Date Visits Re quested Visits Authorized [id number] 1 1 Encounter Details Date Type Department Care Team ([facility] st Contact Info) Description 08/27/2025 11:30 AM EST Home Care Visit [facility] [address], [place] [phone] Osiris Cabrera RN [address] [place] [address] [email or web address] SN HOME VISIT Social History Tobacco Use [...] Description 08/29/2025 1:30 PM EST Appointment [facility] [address] [place] [phone] Chasity Molina, OT [address] [place] [address] [email or web address] 09/02/2025 2:45 AM EST Appointment [facility] [address] [place] [phone] Chasity Molina, OT [address] [place] [address] [email or web address] 09/03/2025 4:45 AM EST Appointment [facility] [address] [place] [phone] Domitila Cifuentes, PT [address] [place] [address] [email or web address] 09/03/2025 10:30 AM EST Appointment [facility] [address] [place] [phone] Osiris Cabrera, RN [address] [place] [address] [email or web address] 09/09/2025 1:00 AM EST Appointment [facility] [address] [place] [phone] Chasity Molina, OT [address] [place] [address] [email or web address] 09/10/2025 12:30 AM EST Appointment [facility] [address] [place] [phone] Osiris Cabrera, RN [address] [place] [address] 09/17/2025 Appointment [facility] [address] [place] [phone] Osiris Cabrera RN [address] [place] [address] [email or web address] documented as of this encounter Visit Diagnoses Not on filedocumented in this encounter Home Health Visit - Care Plan Visit Details Visit Type -SN HOME VISIT Discipline -Care Home Problems Problem Description Start Date Status Goals [...] medication errors and/or interactions Scheduled HH - Complete medication review every visit [...] Scheduled documented in this encounter Care Teams Negotiator Sales Relationship Specialty Start Date End Date Brianna Gonzalez MD [facility] [place] [address] PCP - General Internal Medicine 07/11/25 documented as of this encounter Additional Source Comments The information contained in this document represents components of the legal health record. It is not the complete legal health record.[facility]
--- NOTE | 2025-08-27 14:50 | MHC.OFFVIS ---
Vital Signs 08/27/25 14:53 Height 5 ft 1 in Handedness Right Intake Visit Reasons: FC- right humerus fracture, DOI 06/20/25 Intake Note: Oxana is a 59 year old right hand dominant female who presents today for a evaluation of her right humerus fracture, DOI 06/20/25. Patient reports she fell down and hurt her right side. Patient states that she is having pain through out her arm and her leg. Patient had a stroke on 2015 and her right hand curled inward. Mikki comes to her home with a nurse and physical therapist and occupational therapy. Accompanied by: Laboratory Phlebotomist Allergies crab Allergy (Unknown, Verified 08/27/25 14:51) Hives penicillin V Allergy (Unknown, Verified 08/27/25 14:51) hives Penicillins (PENICILLINS) Allergy (Unknown, Verified 08/27/25 14:51) hives SEASONAL ALLERGIES Allergy (Mild, Uncoded 07/16/25 16:05) RUNNY NOSE HPI HPI FC- right humerus fracture, DOI 06/20/25: Details: The patient is a 59-year-old female who presents to the office today for a right proximal humerus fracture and right distal radius fracture that occurred on 06/20/2025 after a mechanical fall. Patient has a past medical history significant for stroke with right-sided deficits. She does not have any use in the right upper extremity. She reports that she continues to have right shoulder pain. She denies any wrist pain. [facility] Medical History Seizure (~11/2021) History of multiple cerebrovascular accidents (CVAs) Hemiparesis affecting right side as late effect of cerebrovascular accident Aphasia History of non-ST elevation myocardial infarction (NSTEMI) (~11/2021) History of acute respiratory distress syndrome (ARDS) (~08/2021) Coronary artery disease Takotsubo cardiomyopathy COPD (chronic obstructive pulmonary disease) Respiratory failure with hypoxia Oxygen dependent Personal history of nicotine dependence Hemoptysis Closed subcapital fracture of femur Cocaine abuse Hypertensive emergency Normocytic anemia History of drug abuse Cocaine abuse Major depression, recurrent Acute CHF (congestive heart failure) Hypercapnic respiratory failure, chronic Asymptomatic carotid artery stenosis with infarction Chronic GERD Environmental allergies Anxiety, generalized Lipid disorder Asthma, moderate Surgical History History of left-sided carotid endarterectomy (~09/2012) History of tonsillectomy and adenoidectomy Family History Father Substance abuse Mother Brain cancer Maternal Grandfather History of heart attack Maternal Grandmother History of heart attack Paternal Grandfather No problems noted. Paternal Grandmother No problems noted. Brother No problems noted. Brother No problems noted. Son No problems noted. Daughter No problems noted. Other Mental health disorder Social History Household Members: None Household Members Other:: daughter Housing: Assisted Living Facility Do you presently have visiting nurse or other home services: No Alcohol intake: former Patient Tobacco Use Status: Former Tobacco user Tobacco use type: Cigarette Cigarettes Per Day: 2 Years Smoked: COUPLE YEAR AGO PER PT e-Cigarette/Vaping Use: Never Used Second Hand Smoke Exposure: No Advance Directives Date on File: 11/25/21 service: No Current occupational status: disabled Cognitive needs: No Hearing needs: No Vision needs: No Review of Systems Const All systems reviewed & are unremarkable except as noted in HPI and below Physical Exam Const General: cooperative, healthy appearing and no acute distress Resp Effort & Inspection: normal respiratory effort and able to speak in complete sentences Extrem Other: Right shoulder patient can passively perform forward flexion to 50 degrees. Reports pain with any attempt of motion. Denies any wrist pain. She is at her neurovascular baseline. Psych Appearance: grossly normal Mental Status: mental status grossly normal Attitude: cooperative Assessment & Plan Assessment & Plan (1) Fracture of humerus, proximal, right, closed: Code(s): S42.201A - Unspecified fracture of upper end of right humerus, initial encounter for closed fracture Category: Medical (2) Fracture of right distal radius: Code(s): S52.501A - Unspecified fracture of the lower end of right radius, initial encounter for closed fracture Category: Medical Plan The patient is a 59-year-old female who presents to the office today for a right proximal humerus fracture and right distal radius fracture that occurred on 06/20/2025 after a mechanical fall. Patient has a past medical history significant for stroke with right-sided deficits. She does not have any use in the right upper extremity. She reports that she continues to have right shoulder pain. She denies any wrist pain. While in the office today, I have recommended that the patient work with physical therapy on pendulum and range of motion exercises of the right upper extremity as well as range of motion of the wrist. I sent a prescription for oxycodone 5 mg Q 8 hours prn pain as a 1 time prescription to the pharmacy as the patient is roughly 9 weeks status post injury. She will remain nonweightbearing right upper extremity. Follow up in 6 weeks with repeat x-ray, sooner if needed. X-rays of the right shoulder which were obtained while in the office today and were reviewed by me, Charlotte Nicholson PA-C, revealed a proximal humerus fracture with routine healing. X-rays of the right wrist which were obtained while in the office today and were reviewed by , Charlotte Nicholson PA-C, revealed healed right distal radius fracture. Orders: Orders XR shoulder RT min 2V Today M25.519 - Pain in unspecified shoulder XR wrist RT min 3V Today M25.539 - Pain in unspecified wrist Medications: Refilled oxycodone Partial Fill upon patient request. 5 mg PO Q8H PRN 21 tabs 0RF pain 5 days Coding Level of Care Code Est Pt Level 4 (74362) Add On Problem Visit Only Diagnoses Fracture of humerus, proximal, right, closed S42.201A Fracture of right distal radius S52.501A
--- OUTSIDE RECORDS SUMMARY | 2025-08-27 18:57 | XMS_ITS | Data Portability ---
Author Organization [facility] [employer] [facility], Main Office Address [address] [place] [address] Care Team Providers Care Tmd Teacher Assistant Name Role Phone [facility] OTHER Assessment No assessment recorded. Plan [...] and Address Organization Details Recorded Time Falls [id number] Active 2023 CEDRICK DONOHUE, MONSTER [address] , [address], [place], [address], [facility] [employer] 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 4 08:32:49 Chronic obstructi ve pulmonary disease 26379712 Active 2023 CEDRICK DONOHUE, CODING COMPLIANCE AUDITOR [address], [address], [place], [address], [facility] [employer] 4 08:32:18 Wound of skin 735102511 Active 2023 skin tear right elbow CEDRICK DONOHUE, MONSTER [address], [address], [place], [address], [facility] [employer] 4 08:33:14 Nicotine dependenc e 00409567 Active 2023 CEDRICKKayode SHARMAMONSTER SHULTZ [address], [address], [place], [address], [facility] [employer] [facility] 4 08:38:47 Asthma 349958460 Active 2023 CEDRICK DONOHUE, CODING COMPLIANCE AUDITOR [address], [address], [place], [address], [facility] [employer] [facility] 4 08:38:52 Anemia 294904215 Active 2023 CEDRICK SHARMAMONSTER SHULTZ [address], [address], [place], [address], [facility] [employer] 4 08:38:57 Mixed anxiety and depressiv e disorder 284904515 Active 2023 CEDRICK SHARMAMONSTER SHULTZ [address], [address], [place], [address], [facility] [employer] 4 08:39:11 Essential hypertens ion 58463802 Active 2023 CEDRICK DONOHUE NP [address] , [address], [place], [address], [facility] [employer] 4 08:45:28 Pain of right hip joint 539747258016 102 Active 2023 CEDRICK ZACHARYMONSTER SHULTZ [address] , [address], [place], [address], [facility] [employer] 4 08:46:02 Seizure disorder 491418791 Active 2023 CEDRICK DONOHUE NP [address], [address], [place], [address], [facility] [employer] 4 08:49:03 Gastroeso phageal reflux disease without esophagit is 686087177 Active 2023 CEDRICK ZACHARYMONSTER SHULTZ [address], [place], [address], [employer] 4 08:49:54 Problem Notes None recorded. Medical Equipment None Reported. Allergies Allergen ID Allergen Name Allergen Category Reaction Reaction Severity Criticality Documentation Date Start Date Code Code System Note Provider Name and Address Organization Details Recorded Time 38654 crab allergeni c extract food Not available Not available Not available 10/13/2023 10561 0 RxNorm CEDRICK DONOHUE NP [address], [address], [place], [address], [facility] 4 08:31:22 23695 Product containin g penicilli n (product) medicatio n Not available Not available Not available 10/13/2023 96487 8001 SNOMED CEDRICK DONOHUE NP [address], [address], [place], [address], [facility] [employer] 4 08:31:33 Medications Not known to be on any medication Vitals Date Recorded Heart rate Respiratory rate Body temperature Oxygen saturation Inhaled oxygen flow rate Systolic And Diastolic Provider Name and Address Organization Details Last Updated DateTime 4 87 /min 16 /min 97.5 [degF] 94 % 2 L/min 121/58 mm[Hg] CEDRICK DONOHUE NP [address], [address], [place], [address], [facility] [employer] [facility] 4 08:30:44 Date Recorded Systolic And Diastolic Provider Name and Address Organization Details Last Updated DateTime 10/15/2023 130/79 mm[Hg] Orestes Quezada MD [address] [facility] [address], [place], [address], [facility] [employer] [facility] 10/15/2023 12:04:01 Social History Question Answer Notes LastModified by Organizat ion Details LastModified Time Tobacco Smoking Status Current Some Day Smoker CEDRICK DONOHUE NP [address], [address], [place], [address], [facility] [employer] 10/13/2023 08:35:33 Do You Have An Advance Directive? Yes Information not available 10/13/2023 What Is Your Code Status? Full Code Information not available 10/13/2023 Which Illicit Or Recreational Drugs Have You Used? Hx Cocaine Information not available 10/13/2023 What Was The Date Of Your Most Recent Tobacco Screening? 10/13/2023 Information not available 10/13/2023 Has Tobacco Cessation Counseling Been Provided? Yes Declined Information not available 10/13/2023 On What Date Was Tobacco Cessation Counseling Provided? 10/13/2023 Information not available 10/13/2023 How Many Years Have You Smoked Tobacco? 35 Information not available 10/13/2023 Sex: Unknown Functional Status Question Answer Note LastModified by Organizat ion Details LastModified Time Do you use any illicit or recreational drugs? Yes Information not available 10/13/2023 Do you or have you ever used any other forms of tobacco or nicotine? No Information not available 10/13/2023 Mental Status None recorded. Family History Nothing Reported Notes:father-substance abuse , mother-brain cancer- maternal grandmother-cardiac, Medical History No medical history recorded. Gynecological HistoryNo gynecological history recorded. Obstetrics History GPAL:G 0 P 0 0 0 0 Immunizations Vaccine Type Date Status Note Provider Gurmeet ramirez and Address Organization Details Recorded Time Influenza, adjuvanted, quadrivalent, PF 2 completed Zeny lobato [facility] 12/01/2023 11:56:47 pneumococcal polysaccharide PPV23 9 completed Zeny lobato [facility] 12/01/2023 11:56:57 Past Encounters Encounter ID Performer Location Encounter Start Date Encounter Closed Date Diagnosis/Indication Diagnosis SNOMED-CT Code Diagnosis ICD10 Code Diagnosis IMO Codes Diagnosis Note [id number] CEDRICK DONOHUE NP [facility] [address] [place] [address] 10/13/2023 08:16:39 10/17/2023 13:39:12 Falls 631738800 R29.6 PT OT eval and treatfall precaution sfrequent safety checks Cerebrovas cular accident 100775231 I63.9 lovenox 40 mg sub cut until more activeasa 81 mg dailyatorv astatin 40 mg dailymonit or neuros Wound of skin 097723947 T14.8XXA wound consultmon itor for any infection Chronic ob structive pulmonary disease 64157119 J44.9 albuterol inhaler q6hr prnduoneb tid prnmonitor resp status Asthma 942097020 J45.90 9 albuterol inhaler q6hr prnduoneb tid prnmonitor resp status Mixed anxi ety and depressive disorder 185252957 F41.8 remeron 30 mg hszoloft 25 mg dailypsych prn Nicotine dependence 5629 4008 F17.200 offer cessation Anemia 874341940 D64.9 vit c 250 mg bidiron 324 mg dailyfolic acid 1 mg dailymonit or labs Essential hypertension 12934672 I10 amlodipine 5 mg dailymetop rolol 25 mg bidmonitor bp Pain of ri ght hip joint 3521738184 15989 M25.551 tylenol prntramado l 25 mg q6hr prn Seizure disorder 2117672 02 G40.909 keppra 500 mg bidmonitor neuros Gastroesop hageal reflux disease without esophagitis 238127316 K21.9 omeprazole 20 mg daily [id number] Orestes Quezada MD [facility] [address] [place] [address] 10/15/2023 12:03:28 10/17/2023 14:05:43 Closed fracture of hip 889597830 S72.091D right impacted subcapital fx right proximal femurEval by ortho and underwent closed reduction and percutaneo us pinningfol low ortho recs and update with concernsPT OT eval and treatloven ox for DVT prophylaxi sincision site cleanscrip ts written for oxycodone 5 mg q 6 prn pain with second E-kit script writtenupd ate ortho with concern Falls 432963390 R29.6 PT OT eval and treatsee abovemonit or fall risk Cerebrovas cular accident 818370083 I63.89 hx of CVA with residual right sided hemiparesi scurrently on lovenox for DVT prophylaxi smaintaine d onlipitor 40 mg qdsee above Chronic ob structive pulmonary disease 83887010 J41.1 on O2 3 lpm at baselinemo nitor respirator y status on current medspulmon ology eval prn Mixed anxi ety and depressive disorder 376714825 F41.8 remeron 30 mg hszoloft 25 mg qdcontinue dmonitor moodpsych prn Nicotine dependence 5629 4008 F17.210 hx of quit priornow on O2 for COPD Anemia 548863207 D50.0 multifacto rial anemia required 1 unit pRBC post opnow on iron supplement monitor cbc and need for further transfusio niron studies prn Essential hypertension 69837382 I10 norvasc 5 mg qdmetoprol ol 25 mg bidmonitor bp Seizure disorder 3403679 02 G40.909 G40.89 carrying dxmaintain ed onkeppra 500 mg bidmonitor for activity Gastroesop hageal reflux disease without esophagitis 569707085 K21.9 omeprazole 20 mg qdmonitor for sx relief Coronary arteriosclerosis 30717228 I25.10 with hx of takotsubo cardiomyop athylipito r 40 mg qdASA 81 mg qdmetoprol ol 25 mg bidmonitor for sxcards eval prn Standard c hest X-ray abnormal 860783032 R93.89 stable opacity to repeat imaging in 3 months Health Concerns Section Related Observation LastModified by Organization Detai ls LastModified Time None Recorded Concern Status LastModified by Organization Details LastModified Time None Recorded Advance Directives Directive Y: Payers Insurance Date Sequence Insurance Name Policy Number Policy Duran Covered Member ID Duran Member ID Guarantor Name 02/15/2024 1 [facility] [employer] (MEDICAID REPLACEMENT - HMO) NAVYA Bragg [id number] Oxana Bragg Notes Date Note Type Note Provider Name and Address Organization Details Recorded Time 10/13/2023 text/html ROS as noted in the HPI seen today for initial intake visit,58 yof admitted to for rehab [...] tramadol for her. CEDRICK DONOHUE, MONSTER [address], [address], [place], [address], [facility] 10/13/2023 09:02:01 10/15/2023 text/html ROS as noted in the HPI Patient is a 58 yo female admit [...] continued care and therapy Orestes Quezada MD [address] [place] [address], [address], [place], [address], [facility] 10/15/2023 13:32:26 OBGyn Episode No OBEpisode recorded.
--- OUTSIDE RECORDS SUMMARY | 2025-08-27 18:57 | XMS_ITS | Encounter Summary ---
Author Organization [facility] Address [address] [employer] [facility] [address] [place] [address] Phone Care Team Providers Care Perlite Grinder Name Role Phone Brianna Gonzalez MD Primary Care Provider [phone] Encounter Details Date Type Department Care Team (Late st Contact Info) Description 08/23/2025 Episode Documentatio n Update [facility] [address] [place] [address] Social History Tobacco Use Types Packs/Day Years [...] Description 08/29/2025 1:30 PM EST Appointment [facility] [address] [place] [address] Chasity Molina, OT [address] [place] [address] 09/02/2025 2:45 AM EST Appointment [facility] [address] [place] [address] Chasity Molina, OT [address] [place] [address] 09/03/2025 4:45 AM EST Appointment [facility] [address] [place] [address] Domitila Cifuentes, PT [address] [place] [address] 09/03/2025 10:30 AM EST Appointment [facility] [address] [place] [address] Osiris Cabrera RN [address] [place] [address] 09/09/2025 1:00 AM EST Appointment [facility] [address] [place] [address] Chasity Molina, OT [address] [place] [address] 09/10/2025 12:30 AM EST Appointment [facility] [address] [place] [address] Osiris Cabrera RN [address] [place] [address] 09/17/2025 Appointment [facility] [address] [place] [address] Osiris Cabrera, SACHA [address] [place] [address] documented as of this encounter Visit Diagnoses Not on filedocumented in this encounter Care Teams Perlite Grinder Relationship Specialty Start Date End Date Brianna Gonzalez MD [facility] [place] [address] PCP - General Internal Medicine 07/11/25 documented as of this encounter Additional Source Comments The information contained in this document represents components of the legal health record. It is not the complete legal health record.[facility]
--- OUTSIDE RECORDS SUMMARY | 2025-08-27 18:57 | XMS_ITS | Clinical Summary ---
Author Organization [facility] Address [address] [place] [address] Phone Care Team Providers Care Second Rigger Name Role Phone Brianna Gonzalez MD Primary Care Provider [phone] Medications albuterol 2.5 mg /3 mL (0.083 [...] Tab Take 324 mg by mouth daily. 5 Active folic acid (FOLVITE) 1 MG tablet Take 1 mg by mouth daily. 5 Active gabapentin (NEURONTIN) 300 MG capsule Take 300 mg by mouth 3 (three) times a day. 5 Active ipratropium-al buteroL (DUONEB) 0.5-3 mg (2.5 mg base)/3 mL nebulizer solution Take 3 mL by nebulization every 6 (six) hours as needed for shortness of breath/dyspnea. 5 Active levETIRAcetam (KEPPRA) 500 MG tablet Take 500 mg by mouth 2 (two) times a day. 5 Active atorvastatin (LIPITOR) 40 MG tablet Take [...] Encounters Date Type Department Care Team Description 08/27/2025 11:30 AM EST [facility] [address] [place] [phone] Osiris Cabrera RN SN HOME VISIT 08/23/2025 Episode Documentation Update [facility] [address] [place] [address] 08/22/2025 1:45 PM EST Home Care Visit [facility] [address] [place] [address] Chasity Molina, OT OT TFA VISIT 08/20/2025 11:00 AM EST Home Care Visit [facility] [address] [place] [address] Osiris Cabrera RN SN HOME VISIT 08/19/2025 12:15 PM EST Home Care Visit [facility] [address] [place] [address] Chasity Molina, OT OT HOME VISIT 08/16/2025 12:30 PM EST Home Care Visit [facility] [address] [place] [address] Domitila Cifuentes, PT PT HOME VISIT 08/15/2025 2:00 PM EST Home Care Visit [facility] [address] [place] [address] Chasity Molina, OT OT HOME VISIT 08/14/2025 2:15 AM EST Home Care Visit [facility] [address] [place] [address] Mandi Mazariegos LPN FRONT END DEVELOPER [employer] HOME VISIT 08/12/2025 12:00 PM EST Home Care Visit [facility] [address] [place] [address] Chasity Molina, OT OT HOME VISIT 08/09/2025 11:00 AM EST Home Care Visit [facility] [address] [place] [address] Domitila Cifuentes, PT PT HOME VISIT 08/06/2025 Home Care Visit [facility] [place] [phone] Chasity Molina, OT TELEPHONE ENCOUNTER 08/06/2025 Episode Documentation Update [facility] [address] [place] [address] Xena Han Idalia 08/05/2025 12:00 PM EST Home Care Visit [facility] [address] [place] [address] Chasity Molina, OT OT HOME VISIT 08/02/2025 Episode Documentation Update [facility] [address] [place] [address] 08/01/2025 1:30 PM EST Home Care Visit [facility] [address] [place] [address] Chasity Molina, OT OT HOME VISIT 08/01/2025 11:00 AM EST Home Care Visit [facility] [address] [place] [address] Domitila Cifuentes, PT PT EVALUATION 08/01/2025 12:30 AM EST Home Care Visit [facility] [address] [place] [address] Mandi Mazariegos LPN FRONT END DEVELOPER [employer] HTML CSS HOME VISIT 07/31/2025 Home Care Visit [facility] [address] [place] [address] Domitila Cifuentes, PT TELEPHONE ENCOUNTER 07/30/2025 2:30 PM EST Home Care Visit [facility] [address] [place], [place] [phone] Carol Hernandez, RN SN HOME VISIT 07/30/2025 1:30 PM EST Home Care Visit [facility] [address] [place] [address] Chasity Molina, OT OT HOME VISIT 07/26/2025 Home Care Visit [facility] [address] [facility] [place], [place] [phone] Samreen Slade, OT TELEPHONE ENCOUNTER 07/25/2025 Episode Documentation Update [facility] [address] [place] [address] 07/25/2025 Home Care Visit [facility] [address] [place] [address] Chasity Molina, OT OT EVALUATION 07/24/2025 9:30 AM EST Home Care Visit [facility] [address] [place] [address] Rhonda Case RN SN OASIS START OF CARE (SOC) 07/24/2025 Plan of Care Documentation [facility] [address] [place] [address] 07/22/2025 Home Care Visit [facility] [address] [place] [address] Edel Ortiz, SACHA CASE COMMUNICATION 07/22/2025 Home Care Visit [facility] [address] [place] [address] Edel Ortiz, RN TELEPHONE ENCOUNTER 07/16/2025 Lab Requisition [facility] [address] [place] [address] Shana Chand MD Unspecified fracture of upper end of right humerus, subsequent encounter for fracture with routine healing; Other seizures; Essential (primary) hypertension 07/12/2025 5:22 PM EDT - 07/12/2025 11:59 PM EDT Hospital Encounter [facility] [address] [place] [address] Shana Chand MD Discharge Disposition: Home or Self Care 07/12/2025 Transcribe Orders [facility] [address] [place] [address] Shana Chand MD Fever, unspecified fever cause (Primary Dx); Urinary frequency; Leukocytosis, unspecified type 07/11/2025 Orders Only [facility] [address] [place] [address] [facility] Yuli Dos Santos MD 07/08/2025 9:05 AM EDT - 07/08/2025 11:59 PM EDT Hospital Encounter [facility] [address] [place] [address] Shana Chand MD Discharge Disposition: Home or Self Care 07/08/2025 Transcribe Orders [facility] [address] [place] [address] Shana Chand MD Acute on chronic respiratory failure, unspecified whether with hypoxia or hypercapnia (Primary Dx); Acute myocardial infarction, subendocardial infarction, initial episode of care; Familial hypercholesterolemia, unspecified type 07/05/2025 11:51 AM EDT - 07/05/2025 11:59 PM EDT Hospital Encounter [facility] [address] [place] [address] Shana Chand MD Discharge Disposition: Home or Self Care 07/05/2025 Transcribe Orders [facility] [address] [place] [address] Shana Chand MD Fever, unspecified fever cause (Primary Dx) 07/01/2025 7:06 AM EDT - 07/01/2025 11:59 PM EDT Hospital Encounter [facility] [address] [place] [address] Shana Chand MD Discharge Disposition: Home or Self Care 07/01/2025 Transcribe Orders [facility] [address] [place] [address] Shana Chand MD Somatosensory attacks (Primary Dx) 06/29/2025 10:28 AM EDT - 06/29/2025 11:59 PM EDT Hospital Encounter [facility] [address] [place] [address] Shana Chand MD Discharge Disposition: Home or Self Care 06/29/2025 Transcribe Orders [facility] [address] [place] [address] Shana Chand MD Urinary tract infection without hematuria, site unspecified (Primary Dx) 06/27/2025 9:35 AM EDT - 06/27/2025 11:59 PM EDT Hospital Encounter [facility] [address] [place] [address] Shana Chand MD Discharge Disposition: Home or Self Care 06/27/2025 Transcribe Orders [facility] [address] [place] [address] Shana Chand MD Illness (Primary Dx) from [...] Info) Description 08/29/2025 1:30 PM EST Appointment [facility] [address] [place] [address] Chasity Molina, OT [address] [place] [address] 09/02/2025 2:45 AM EST Appointment [facility] [address] [place] [address] Chasity Molina, OT [address] [place] [address] 09/03/2025 4:45 AM EST Appointment [facility] [address] [place] [address] Domitila Cifuentes, PT [address] [place] [address] 09/03/2025 10:30 AM EST Appointment [facility] [address] [place] [address] Osiris Cabrera RN [address] [place] [address] 09/09/2025 1:00 AM EST Appointment [facility] [address] [place] [address] Chasity Molina, OT [address] [place] [address] 09/10/2025 12:30 AM EST Appointment [facility] [address] [place] [address] Osiris Cabrera, SACHA [address] [place] [address] 09/17/2025 Appointment [facility] [address] [place] [address] Osiris Cabrera RN [address] [place] [address] [email or web address] Due Date Last Done Comments [...] 07/31/2020, 08/21/2019, Additional history exists COVID-19 VACCINE ( - season) 2025 RSV VACCINE (1 - 1-dose [...] 4.00 - 11.00 K/uL 07/16/2025 11:44 AM [facility] RBC 2.75(L) 4.00 - 5.20 M/uL 07/16/2025 11:44 AM [facility] Hemoglobin 8.2(L) 12.0 - 16.0 g/dL 07/16/2025 11:44 AM [facility] Hematocrit 27.0(L) 36.0 - 46.0 % 07/16/2025 11:44 AM [facility] MCV 98.2 80.0 - 100.0 fL 07/16/2025 11:44 AM [facility] MCH 29.8 27.0 - 31.0 pg 07/16/2025 11:44 AM [facility] MCHC 30.4(L) 32.0 - 36.0 g/dL 07/16/2025 11:44 AM [facility] PLT 318 150 - 450 K/uL 07/16/2025 11:44 AM [facility] MPV 9.6 8.4 - 12.0 fL 07/16/2025 11:44 AM [facility] RDW-CV 12.8 11.5 - 14.5 % 07/16/2025 11:44 AM [facility] Absolute NRBC 0.00 <=0.00 K cells/uL 07/16/2025 11:44 AM [facility] NRBC 0.0 <=0.0 /100 WBCs 07/16/2025 11:44 AM [facility] Blood (Blood) 07/16/2025 7:2 5 AM EST 07/16/2025 11:04 AM EST us Shana Chand MD LAB BLOOD BKR ORDERABLES Final Result Performing Organization Address City/State/[facility] Co de Phone Number [address] [address] * (ABNORMAL) Basic Metabolic Panel (BMP) (07/16/2025 7:25 AM EST) Only the most recent of3 resultswithin the time period is included. Sodium 133(L) 136 - 145 mmol/L 07/16/2025 12:22 PM [facility] Potassium 4.6 3.4 - 5.1 mmol/L 07/16/2025 12:22 PM [facility] Comment:NOTE: Specimen hemol yzed. Results may be falsely increased. Chloride 92(L) 98 - 107 mmol/L 07/16/2025 12:22 PM [facility] CO2 30 20 - 31 mmol/L 07/16/2025 12:22 PM [facility] Anion Gap 11 3 - 17 mmol/L 07/16/2025 12:22 PM [facility] BUN 12 6 - 23 mg/dL 07/16/2025 12:22 PM [facility] Creatinine 0.30(L) 0.50 - 1.00 mg/dL 07/16/2025 12:22 PM [facility] eGFR 121 >59 mL/min/1.7 3m2 07/16/2025 12:22 PM [facility] Comment:Estimated glomerular filtration rate calculated using the CKD-EPI refit equation. Glucose 83 70 - 99 mg/dL 07/16/2025 12:22 PM [facility] Calcium 8.9 8.5 - 10.5 mg/dL 07/16/2025 12:22 PM [facility] Blood (Blood) 07/16/2025 7:2 5 AM EST 07/16/2025 11:04 AM EST us Shana Chand MD LAB BLOOD BKR ORDERABLES Final Result Performing Organization Address City/State/[facility] Co de Phone Number [address] [address] * Urinalysis w/reflex Urine Culture (07/12/2025 10:45 AM EDT) Only the most recent of2 resultswithin the time period is included. COLOR Yellow Yellow [facility] CLARITY Clear [facility] GLUCOSE Negative Negative [facility] BILI Negative Negative [facility] KETONES Negative Negative [facility] SPECIFIC GRAVITY <1.005 1.005 - 1.030 [facility] BLOOD Negative Negative [facility] PH 6.0 5.0 - 8.0 [facility] Protein-UA Negative Negative [facility] NITRITE Negative Negative [facility] Leukocyte esterase, ur Negative Negative [facility] Urine (Urine) 07/12/2025 10: 45 AM EDT 07/12/2025 5:24 PM EDT Shana Chand MD LAB URINE ORDERABLES Final Res ult Performing Organization Address City/[facility]/ZIP Co de Phone Number [address] [address] * (ABNORMAL) Comprehensive metabolic panel (07/05/2025 11:05 AM EDT) Only the most recent of2 resultswithin the time period is included. SODIUM 137 133 - 146 mmol/L [facility] POTASSIUM 4.1 3.3 - 5.1 mmol/L [facility] CHLORIDE 93(L) 96 - 108 mmol/L [facility] CO2 35 21 - 35 mmol/L [facility] BUN 9 6 - 19 mg/dL [facility] CREATININE 0.30(L) 0.5 - 1.5 mg/dL [facility] GLUCOSE 76 70 - 99 mg/dL [facility] ALBUMIN 4.0 3.9 - 4.8 g/dL [facility] TOTAL PROTEIN 5.5(L) 6.5 - 8.0 g/dL [facility] CALCIUM 9.1 8.4 - 10.3 mg/dL [facility] ALKALINE PHOSPHATASE 59 39 - 117 U/L [facility] TOTAL BILIRUBIN <0.2 0.0 - 1.2 mg/dL [facility] AST 13 0 - 37 U/L [facility] ALT 17 0 - 40 U/L [facility] GLOBULIN 1.5 1 - 4.8 g/dL [facility] EGFR >120 >59 mL/min/1.7 3m2 [facility] Comment:Estimated glomerular filtration rate calculated using the CKD-EPI refit equation. ANION GAP 13 10 - 20 mmol/L [facility] Blood 07/05/2025 11:0 5 AM EDT 07/05/2025 11:58 AM EDT us Shana Chand MD LAB BLOOD BKR ORDERABLES Final Result Performing Organization Address City/[facility]/ZIP Co de Phone Number [address] [address] from Last 3 Months Insurance [facility] [place] [address] [place] [address] ACO [facility]CO [facility] Advance Directives For more information, please contact: [phone] (9AM - 5PM [facility], Tuesday-Tuesday) Documents on File Type Date Recorded Patient Cashier Courtesy Booth Expl anation Power of Tax Revenue Officer Care Teams Second Rigger Relationship Specialty Start Date End Date Brianna Gonzalez MD [address] [place] [address] PCP - General Internal Medicine 07/11/25 Additional Source Comments The information contained in this document represents components of the legal health record. It is not the complete legal health record.[facility]
--- OUTSIDE RECORDS SUMMARY | 2025-08-27 18:57 | XMS_ITS | Encounter Summary ---
Author Organization [facility] Address [address] [facility] [address] [place] [address] Phone Care Team Providers Care Muffler Tender Name Role Phone Brianna Gonzalez MD Primary Care Provider [phone] Encounter Details Date Type Department Care Team (Late Contact Info) Description 07/16/2025 Lab Requisition [facility] [address] [place] [address] Shana Chand MD [address] [place] [phone] [email or web address] Unspecified fracture of upper end of right [...] Appointment [facility] [address] [place] [phone] Chasity Molina, OT [address] [place] [address] 09/02/2025 2:45 AM EST Appointment [facility] [address] [place] [address] Chasity Molina, OT [address] [place] [address] 09/03/2025 4:45 AM EST Appointment [facility] [address] [place] [address] Domitila Cifuentes, PT [address] [place] [address] 09/03/2025 10:30 AM EST Appointment [facility] [address] [place] [address] Osiris Cabrera RN [address] [place] [address] 09/09/2025 1:00 AM EST Appointment [facility] [address] [place] [address] Chasity Molina, OT [address] [place] [address] 09/10/2025 12:30 AM EST Appointment [facility] [address] [place] [address] Osiris Cabrera RN [address] [place] [address] 09/17/2025 Appointment [facility] [address] [place] [address] Osiris Cabrera RN [address] [place] [address] documented as of this encounter Procedures Procedure [...] 136 - 145 mmol/L 07/16/2025 12:22 PM [facility] Potassium 4.6 3.4 - 5.1 mmol/L 07/16/2025 12:22 PM [facility] Comment:NOTE: Specimen hemol yzed. Results may be falsely increased. Chloride 92(L) 98 - 107 mmol/L 07/16/2025 12:22 PM [facility] CO2 30 20 - 31 mmol/L 07/16/2025 12:22 PM [facility] Anion Gap 11 3 - 17 mmol/L 07/16/2025 12:22 PM [facility] BUN 12 6 - 23 mg/dL 07/16/2025 12:22 PM [facility] Creatinine 0.30(L) 0.50 - 1.00 mg/dL 07/16/2025 12:22 PM [facility] eGFR 121 >59 mL/min/1.7 3m2 07/16/2025 12:22 PM [facility] Comment:Estimated glomerular filtration rate calculated using the CKD-EPI refit equation. Glucose 83 70 - 99 mg/dL 07/16/2025 12:22 PM [facility] Calcium 8.9 8.5 - 10.5 mg/dL 07/16/2025 12:22 PM [facility] Blood (Blood) 07/16/2025 7:2 5 AM EST 07/16/2025 11:04 AM EST Shana Chand MD LAB BLOOD BKR ORDERABLES Final Result [facility] [address] [place], [place] [phone] * (ABNORMAL) CBC (07/16/2025 7:25 AM EST) WBC 10.30 4.00 - 11.00 K/uL 07/16/2025 11:44 AM [facility] RBC 2.75(L) 4.00 - 5.20 M/uL 07/16/2025 11:44 AM [facility] Hemoglobin 8.2(L) 12.0 - 16.0 g/dL 07/16/2025 11:44 AM [facility] Hematocrit 27.0(L) 36.0 - 46.0 % 07/16/2025 11:44 AM [facility] MCV 98.2 80.0 - 100.0 fL 07/16/2025 11:44 AM [facility] MCH 29.8 27.0 - 31.0 pg 07/16/2025 11:44 AM [facility] MCHC 30.4(L) 32.0 - 36.0 g/dL 07/16/2025 11:44 AM [facility] PLT 318 150 - 450 K/uL 07/16/2025 11:44 AM [facility] MPV 9.6 8.4 - 12.0 fL 07/16/2025 11:44 AM [facility] RDW-CV 12.8 11.5 - 14.5 % 07/16/2025 11:44 AM [facility] Absolute NRBC 0.00 <=0.00 K cells/uL 07/16/2025 11:44 AM [facility] NRBC 0.0 <=0.0 /100 WBCs 07/16/2025 11:44 AM [facility] Blood (Blood) 07/16/2025 7:2 5 AM EST 07/16/2025 11:04 AM EST Shana Chand MD LAB BLOOD BKR ORDERABLES Final Result [facility] [address] [place] [address] documented in this encounter Visit Diagnoses Diagnosis Unspecified fracture of upper end of right humerus, subsequent encounter for fracture with routine healing Other seizures Essential (primary) hypertension Unspecified essential hypertension documented in this encounter Care Teams Muffler Tender Relationship Specialty Start Date End Date Brianna Gonzalez MD [facility] [place] [address] PCP - General Internal Medicine 07/11/25 documented as of this encounter Additional Source Comments The information contained in this document represents components of the legal health record. It is not the complete legal health record.[facility]
== END 2025-08-27 15:20 | disposition home or self-care (01) ==
LOC: HO.HOS 14:43
PROVIDERS: PCP Internal Medicine; Visit Provider Physician Assistant
DX: S42.201D Unspecified fracture of upper end of right humerus, subsequent encounter for fracture with routine healing (principal); S52.501A Unspecified fracture of the lower end of right radius, initial encounter for closed fracture
CPT/HCPCS: 99214

== ENCOUNTER 2025-08-27 15:15 | Outpatient (REF) | payer OTHER, SELFPAY ==
--- NOTE | ~2025-08-27 | XR_ITS ---
EXAMINATION: XR SHOULDER 2 OR MORE VIEWS RIGHT HISTORY: M25.519 - Pain in unspecified shoulder COMPARISON: Correlation is made to plain films of the right humerus dated 06/20/2025. FINDINGS: Two views of the right shoulder are submitted. The bones are osteopenic. Evaluation of the previously seen fracture of the surgical neck of the humerus is extremely limited due to rotation of the humerus. There is likely evidence of healing with callus formation. The glenohumeral joint cannot be assessed. There is narrowing of the AC joint. The soft tissues are unremarkable. XR/XR shoulder RT min 2V IMPRESSION: Markedly limited examination due to difficulty in patient positioning and rotation of the humerus. Probable healing fracture of the surgical neck of the humerus. Electronically signed by: Hemant Lunsford MD 08/27/2025 03:54 PM [facility]
--- NOTE | ~2025-08-27 | XR_ITS ---
EXAMINATION: XR WRIST 3 OR MORE VIEWS RIGHT HISTORY: M25.539 - Pain in unspecified wrist COMPARISON: Comparison is made with the prior examination dated 06/20/2025. FINDINGS: Four views of the right wrist are submitted. The bones are markedly osteopenic. No fracture is identified. There is mild degenerative change of the radiocarpal articulation. The soft tissues are unremarkable. XR/XR wrist RT min 3V IMPRESSION: Marked osteopenia. No fracture is identified. Electronically signed by: Hemant Lunsford MD 08/27/2025 03:57 PM EST
--- OUTSIDE RECORDS SUMMARY | 2025-08-27 19:35 | XMS_ITS | Encounter Summary ---
Author Organization [facility] Prior to 07/13/[address] [place] [address] Care Team Providers Care Machine Precision Etcher Name Role Phone Chasity Arzate MD Primary Care Provider Emileeva Odell Durbin MD Primary Care Provider [phone] Jim Robin Primary Care Provider Unavailabl e Reason for Visit * Reason Onset Date Comments Provider Call Back 04/02/2015 Encounter Details Date Type Department Care Team Description 04/02/2015 Telephone Adult Medicine [facility] [address] [place] [address] Chasity Arzate MD Provider Call Back Social [...] Rg L.P.N. - 04/02/2015 9:56 AM EDT [employer] Watch police did confirm the medication being stolen but she can not give out any police report to anyone. Msg to PCP * Telephone Encounter - Zeenat Bermudez - 04/02/2015 9:40 AM EDT Caller requesting call back from provider: Is the caller the patient? NO If caller is not the patient, what is the callers name? Chasity from [facility] dept. Callers relationship to patient? N/A [...] on filedocumented in this encounter Care Teams Machine Precision Etcher Relationship Specialty Start Date End Date Chasity Arzate MD PCP - General Internal Medicine 09/18/14 06/30/15 Odell Kitchen MD [address] [place] [address] PCP - General Internal Medicine 07/01/15 06/22/16 Jim Robin [address] [place] [address] PCP - General Internal Medicine 06/23/16 documented as of this encounter
--- OUTSIDE RECORDS SUMMARY | 2025-08-27 19:35 | XMS_ITS | Encounter Summary ---
Author Organization [facility] Prior to 07/13/2024 Address [address] [place] [address] Care Team Providers Care Data Communications Analyst Name Role Phone Chasity Arzate MD Primary Care Provider Emileeva Odell Durbin MD Primary Care Provider Jim Robin Primary Care Provider Unavailabl e Encounter Details Date Type Department Care Team Description 12/30/2014 Hospital Medical Records [address] [place] [address] Vicky Mcbride MD Social History Tobacco Use [...] filedocumented in this encounter Care Teams Data Communications Analyst Relationship Specialty Start Date End Date Chasity Arzate MD PCP - General Internal Medicine 09/18/14 06/30/15 Odell Kitchen MD [address] [place] [address] PCP - General Internal Medicine 07/01/15 06/22/16 Jim Robin [address] [place] [address] PCP - General Internal Medicine 06/23/16 documented as of this encounter
--- OUTSIDE RECORDS SUMMARY | 2025-08-27 19:35 | XMS_ITS | Clinical Summary ---
Author Organization [facility] Prior to 07/13/2024 Address [address] [place] [address] Care Team Providers Care Parking Enforcement Technician Name Role Phone Jim Robin Primary Care [...] 88 04/25/2015 3:12 PM EDT Temperature 36.9 C (98.4 F) 10/03/2014 2:54 PM EST Respiratory Rate 14 12/10/2014 11:14 AM EDT [...] SCREENING 12/10/2017 12/10/2014 CHOLESTEROL SCREENING 12/18/2019 12/17/2014 BMI CHECK/ADVISE 09/12/2024 04/02/2015, , 01/28/2015, Additional history exists INFLUENZA (#1) 2025 HEPATITIS C SCREENING Completed 12/17/2014 Care Teams Parking Enforcement Technician Relationship Specialty Start Date End Date Jim Robin PCP - General Internal Medicine 06/23/16
== END 2025-08-27 15:16 | disposition home or self-care (01) ==
LOC: HO.HOSX 15:15
PROVIDERS: Visit Provider Physician Assistant
DX: S42.201G Unspecified fracture of upper end of right humerus, subsequent encounter for fracture with delayed healing (principal); S52.501G Unspecified fracture of the lower end of right radius, subsequent encounter for closed fracture with delayed healing; W18.30XD Fall on same level, unspecified, subsequent encounter
CPT/HCPCS: 73030; 73110